=== PATIENT | male | born 1940 | race Caucasian/White ===

== ENCOUNTER 2017-08-15 11:03 | Observation (INO) | payer OTHER ==
--- OUTSIDE RECORDS SUMMARY | 2017-08-15 11:14 | XMS REPORT | Summary of Care ---
:1940 Author Name KAMRYN Beltran, MEGGAN Address Unavailable Unavailable , Care Team Providers Name Role Phone KAMRYN Beltran, MEGGAN Unavailable Unavailable ANABEL Beltran, HARINDER Unavailable Unavailable MITCHELL Beltran, DAV Unavailable Unavailable MARIA TERESA Beltran, MELY Unavailable Unavailable Unavailable Unavailable Unavailable Functional Status Name Dates Details Functional status health issues are not documented Status: Name Dates Details Cognitive status health issues are not documented Status: Problems Name Dates Details Chronic right hip pain (719.45, M25.551) Status: Active Benign prostatic hyperplasia with lower urinary tract symptoms, unspecified morphology Status: Active Other hyperlipidemia (272.4, E78.4) Status: Active Other specified hypothyroidism (244.8, E03.8) Status: Active Gastroesophageal reflux disease without esophagitis (530.81, K21.9) Status: Active Depression, unspecified depression type (311, F32.9) Status: Active Iliotibial band syndrome of right side (728.89, M76.31) Status: Active Hip abductor tendonitis, right (726.5, M76.891) Status: Active Cervical pain (neck) (723.1, M54.2) Status: Active Low back pain (724.2, M54.5) Status: Active 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, 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) Status: Active Lumbar radicular pain (724.4, M54.16) Status: Active Lumbar foraminal stenosis (724.02, M99.83) Status: Active 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, 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) Status: Active Shoulder pain (719.41, M25.519) Status: Active Subacromial impingement of right shoulder (726.19, M75.41) Status: Active Subacromial bursitis (726.19, M75.50) Status: Active 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.0, M75.01) Status: Active Wheezing (786.07, R06.2) Status: Active Class 1 obesity with serious comorbidity and body mass index (BMI) of 30.0 to 30.9 in adult, unspecified obesity type (278.00, E66.9) Status: Active Severe obstructive sleep apnea (327.23, G47.33) Status: Active Asthma in adult (493.90, J45.909) Status: Active Complete tear of right rotator cuff (727.61, M75.121) Status: Active Chronic coughing (786.2, R05) Status: Active Dyspnea (786.09, R06.00) Status: Active Kyphosis (737.10, M40.209) Status: Active Chronic right shoulder pain (719.41, M25.511) Status: Active Advanced COPD (496, J44.9) Status: Active Postoperative infection, initial encounter (998.59, T81.4XXA) Status: Active Medications Name Dates Details Flomax 0.4 MG Oral Capsule Refills: 0 R.N.Active Simvastatin 10 MG Oral Tablet Refills: 0 R.N.Active L-Thyroxine 125 MCG TABS Refills: 0 R.N.Active Cymbalta 30 MG Oral Capsule Delayed Release Particles Refills: 0 R.N.Active NexIUM 10 MG Oral Packet Refills: 0 R.N.Active Multi Complete CAPS Refills: 0 R.N.Active Meloxicam 7.5 MG Oral Tablet TAKE 1 TABLET TWICE DAILY. Quantity: 60 Refills: 6 DAV MEDRANO M.D. Start : 14-Jul-2015 Active Meloxicam 7.5 MG Oral Tablet TAKE 1 TABLET TWICE DAILY. Quantity: 60 Refills: 5 DAV MEDRANO M.D. Start : 26-Aug-2015 Active Vitamin D (Ergocalciferol) 44453 UNIT Oral Capsule TAKE 1 CAPSULE WEEKLY. Quantity: 20 Refills: 0 MELY MOREL M.D. Start : 13-Apr-2016 Active Ventolin HFA 108 (90 Base) MCG/ACT Inhalation Aerosol Solution INHALE 2 PUFFS EVERY 4 HOURS NEEDED Refills: 0 R.N. Start : 26-Dec-2016 Active 8 GM Inhaler ProAir HFA 108 (90 Base) MCG/ACT Inhalation Aerosol Solution INHALE 1-2 PUFFS EVERY 4-6 HOURS NEEDED AND DIRECTED. Quantity: 1 Refills: 3 MEGGAN HARRY M.D. Start : 26-Dec-2016 Active 8.5 GM Inhaler Rasagiline Mesylate 1 MG Oral Tablet Refills: 0 R.N.Active Tamsulosin HCl 0.4 MG CP24 Refills: 0 R.N.Active Synthroid 50 MCG Oral Tablet Refills: 0 R.N.Active Esomeprazole Magnesium 40 MG Oral Capsule Delayed Release Refills: 0 R.N.Active Metoprolol Tartrate 25 MG Oral Tablet Refills: 0 R.N.Active Tylenol 8 Hour 650 MG Oral Tablet Extended Release TAKE 1 TABLET EVERY 4 HOURS Quantity: 60 Refills: 0 HARINDER LITTLE M.D. Start : 08-Jan-2017 Active Hydrocodone-Acetaminophen 5-325 MG Oral Tablet TAKE 1 TABLET PRN Quantity: 30 Refills: 0 HARINDER LITTLE M.D. Start : 24-May-2017 Active Vancomycin HCl - 500 MG Intravenous Solution Reconstituted USE DIRECTED. Refills: 0 R.N. Start : 31-May-2017 Active Trelegy Ellipta 100-62.5-25 MCG/INH Inhalation Aerosol Powder Breath Activated use one puff one time daily and rinse mouth afterwards Quantity: 1 Refills: 3 MEGGAN HARRY M.D. Start : 31-May-2017 Active 60 Inhaler Pack Albuterol Sulfate (2.5 MG/3ML) 0.083% Inhalation Nebulization Solution USE 1 UNIT DOSE IN NEBULIZER EVERY 4 TO 6 HOURS NEEDED. Quantity: 1 Refills: 3 MEGGAN HARRY M.D. Start : 31-May-2017 Active 60 x 3 ML Plas Cont Allergies and Adverse Reactions Name Dates Details No Known Drug Allergies (Allergy) Status: Active Past Medical History Name Dates Details History of asthma (V12.69, Z87.09) Status: Resolved History of Hospital-acquired pneumonia (486, J18.9) Status: Resolved History of thyroid disease (V12.29, Z86.39) Status: Resolved Procedures Procedure Dates Details Physical Therapy Date: 12-Jul-2017 [H] Allergens, Inhalants, Comprehensive Profile Date: 31-May-2017 History of Rotator Cuff Repair Completed History of Capsulotomy Left Foot First MTP Completed History of Hemicolectomy Completed History of Lumbar Vertebral Fusion Completed History of Neuroplasty Left Thumb Completed Immunization Name Dates Details Prevnar 13 Intramuscular Suspension on: 01-Mar-2017 Lot #: [id number] Family History Name Dates Details No pertinent family history Status: Active Name Dates Details Family history of Type 2 diabetes mellitus without complication (250.00, E11.9 ) Status: Active Social History Name Dates Details - Status: Name Dates Details Former smoker Vital Signs Date Test Result Details No Known Vitals to report Results Date Description Value Details [id number] [U] XRAY SPINE LUMBOSACRAL 2 OR 3 VWS [id number] XR SPINE LUMBOSACRAL 2 OR 3 VWS Images acquired, not reported on this accession number. Plan of Care Name Dates Details Planned Observations Planned Goals not documented Planned Encounters Appointment; MEGGAN HARRY M.D. On: 30-Aug-2017 13:00 Interventions Provided Discussion/SummaryWill discuss at appointment. Instructions Name Dates Details Instructions not documented Encounters Appointment; DAV MEDRANO M.D. On: 14-Jul-2015 10:30 Encounter Diagnosis: Problem not documented Appointment; MELY MOREL M.D. On: 28-Oct-2015 9:30 Encounter Diagnosis: Problem not documented Appointment; MELY MOREL M.D. On: 03-Nov-2015 8:20 Encounter Diagnosis: Problem not documented Appointment; MELY MOREL M.D. On: 18-Nov-2015 9:15 Encounter Diagnosis: Problem not documented Appointment; MELY MOREL M.D. On: 30-Dec-2015 10:15 Encounter Diagnosis: Problem not documented Appointment; MELY MOREL M.D. On: 04-Jan-2016 10:45 Encounter Diagnosis: Problem not documented Appointment; MELY MOREL M.D. On: 18-Jan-2016 13:15 Encounter Diagnosis: Problem not documented Appointment; MELY MOREL M.D. On: 15-Feb-2016 11:15 Encounter Diagnosis: Problem not documented Appointment; MELY MOREL M.D. On: 21-Feb-2016 7:30 Encounter Diagnosis: Problem not documented Appointment; MELY MOREL M.D. On: 30-Mar-2016 10:15 Encounter Diagnosis: Problem not documented Appointment; MELY MOREL M.D. On: 13-Apr-2016 11:15 Encounter Diagnosis: Problem not documented Appointment; MELY MOREL M.D. On: 25-May-2016 10:15 Encounter Diagnosis: Problem not documented Appointment; RADHA HYMAN M.D. On: 13-Jun-2016 10:30 Encounter Diagnosis: Problem not documented Appointment; MELY MOREL M.D. On: 17-Aug-2016 10:45 Encounter Diagnosis: Problem not documented Appointment; MELY MOREL M.D. On: 24-Aug-2016 10:45 Encounter Diagnosis: Problem not documented Appointment; MEGGAN HARRY M.D. On: 26-Dec-2016 13:00 Encounter Diagnosis: Problem not documented Appointment; MELY MOREL M.D. On: 04-Jan-2017 13:45 Encounter Diagnosis: Problem not documented Appointment; HARINDER LITTLE M.D. On: 08-Jan-2017 10:30 Encounter Diagnosis: Problem not documented Appointment; HARINDER LITTLE M.D. On: 26-Jan-2017 10:00 Encounter Diagnosis: Problem not documented Appointment; HARINDER LITTLE M.D. On: 05-Feb-2017 8:30 Encounter Diagnosis: Problem not documented Appointment; MELY MOREL M.D. On: 22-Feb-2017 10:45 Encounter Diagnosis: Problem not documented Appointment; MEGGAN HARRY M.D. On: 01-Mar-2017 13:00 Encounter Diagnosis: Problem not documented Appointment; HARINDER LITTLE M.D. On: 05-Mar-2017 10:30 Encounter Diagnosis: Problem not documented Appointment; HARINDER LITTLE M.D. On: 02-Apr-2017 11:00 Encounter Diagnosis: Problem not documented Appointment; HARINDER LITTLE M.D. On: 30-Apr-2017 10:30 Encounter Diagnosis: Problem not documented Appointment; HARINDER LITTLE M.D. On: 01-May-2017 8:30 Encounter Diagnosis: Problem not documented Appointment; HARINDER LITTLE M.D. On: 14-May-2017 11:00 Encounter Diagnosis: Problem not documented Appointment; HARINDER LITTLE M.D. On: 15-May-2017 8:00 Encounter Diagnosis: Problem not documented Appointment; HARINDER LITTLE M.D. On: 24-May-2017 10:15 Encounter Diagnosis: Problem not documented Appointment; MEGGAN HARRY M.D. On: 31-May-2017 13:00 Encounter Diagnosis: Problem not documented Appointment; HARINDER LITTLE M.D. On: 07-Jun-2017 10:30 Encounter Diagnosis: Problem not documented Appointment; HARINDER LITTLE M.D. On: 28-Jun-2017 11:30 Encounter Diagnosis: Problem not documented Appointment; MELY MOREL M.D. On: 12-Jul-2017 14:30 Encounter Diagnosis: Problem not documented
[2017-08-15] MEDS ORDERED: HYDROMORPHONE HCL 2 MG/ML inj IV PRN (12:04)
[2017-08-15] MEDS ORDERED: ONDANSETRON 4 MG (ODT) TAB PO PRN (12:05)
[2017-08-15] MEDS ORDERED: POLYETHYL GLY 3350 17 GM/DOSE PO PRN (12:05)
[2017-08-15] MEDS ORDERED: DIPHENHYDRAMINE 25 MG TAB/CAP PO PRN (12:05)
[2017-08-15] MEDS ORDERED: ACETAMINOPHEN 325 MG TABLET PO PRN (12:05)
[2017-08-15] MEDS ORDERED: LOPERAMIDE HCL 2 MG CAPSULE PO PRN (12:05)
[2017-08-15] MEDS ORDERED: ONDANSETRON 4 MG/2 ML VIAL IV PRN (12:05)
[2017-08-15] MEDS ORDERED: NACHLORIDE 0.45% 1,000 ML IV SCH (13:00)
[2017-08-15] MEDS: metroNIDAZOLE 500 MG TABLET PO SCH ×2 (13:00→17:00)
[2017-08-15 13:39] LABS: Absolute Lymphocytes (CBC) 1.6 K/uL (0.7-4.9); Absolute Neutrophil 13.6 K/uL (1.8-8.0); Basophils % 0.6 % (0-1.3); Eosinophils % 0.1 % (0-4.4); Hematocrit 37.7 % (39.6-49.0); Lymphocytes % 9.6 % (15.3-44.8); MCH 23.7 pg (27.0-35.0); MCV 75.2 fL (80-100); MPV 6.9 fL (7.6-11.3); Monocytes % 6.2 % (3.3-12.3); RBC Red Blood Cell Count 5.02 M/uL (4.33-5.43)
[2017-08-15 13:45] LABS: Protime INR 1.03
[2017-08-15 14:12] LABS: Albumin 3.9 g/dL (3.2-5.5); Bilirubin Direct 0.2 mg/dL (0-0.2); Magnesium 1.9 mg/dL (1.8-2.5); Phosphorus 3.1 mg/dL (2.5-4.3); Potassium 4.5 mEq/L (3.6-5.0); Protein, Total 6.9 g/dL (6.0-8.3)
--- NOTE | 2017-08-15 15:13 | RAD REPORT ---
EXAM DESCRIPTION: RAD - Chest Pa And Lat (2 Views) - 08/15/2017 2:45 pm CLINICAL HISTORY: Abdominal pain COMPARISON: March 2016 TECHNIQUE: PA and lateral views of the chest were obtained. FINDINGS: The lungs are slightly underinflated. There is scarring and atelectasis change present. No acute infiltrate, failure or mass lesions suspected. Heart size is normal and central vasculature is within normal limits. No pleural effusion or pneumothorax seen. No acute bone finding. Since the prior study a right shoulder prosthesis has been placed. Old surgical hardware noted on the left dasia ulder. No aortic abnormality. IMPRESSION: No acute cardiopulmonary process. No suspicious change from prior imaging.
[2017-08-15 15:19] LABS: Thyroid Stimulating Hormone 1.4 uIU/mL (0.34-5.60)
--- NOTE | 2017-08-15 15:40 | EKG ---
Test Date: 2017-08-15 Test Time: 14:21:28 Solution Designer: MILLER MEASUREMENT RESULTS: Intervals: Rate: 89 RI: 134 QRSD: 78 QT: 362 QTc: 440 [place]: P: 44 RI: 134 QRS: -17 T: 17 INTERPRETIVE STATEMENTS: Sinus rhythm with occasional premature ventricular complexes Otherwise normal ECG Compared to ECG 08/15/2016 10:01:49 Ventricular premature complex(es) now present Sinus bradycardia no longer present Sinus arrhythmia no longer present Left-axis deviation no longer present Electronically Signed On 08-15-17 15:39:59 CDT by Gilmer Chao
[2017-08-15] MEDS ORDERED: ENOXAPARIN 40 MG/0.4 ML SQ SCH (17:00)
--- NOTE | 2017-08-15 17:05 | RAD REPORT ---
EXAM DESCRIPTION: CT - Abdomen Pelvis W/Wo Contrast - 08/15/2017 2:56 pm CLINICAL HISTORY: Left-sided abdominal pain, no hematuria reported, history of diverticulitis COMPARISON: None. TECHNIQUE: Biphasic, helical CT imaging of the abdomen and pelvis was performed following 100 ml non -ionic IV contrast. Precontrast imaging performed. All CT scans are performed using dose optimization technique as appropriate and may include automated exposure control or mA/KV adjustment according to patient size. FINDINGS: No suspicious findings in the lung bases. Liver shows a mild fatty infiltration pattern with no suspicious liver parenchymal finding. Spleen an d pancreas also without suspicious finding Gallbladder and biliary tree are also without suspicious f inding. Precontrast imaging shows no abnormal calculus. There is mild dilatation of the proximal left ureter, pelvis and calices on the left. Trace amount of stranding is seen in the perinephric fat. There is a large 5 centimeter cyst complex in the mid and upper pole left kidney that is probably a large parap elvic cyst. This may have a septation or represent clustered abutting cysts. Minimal calcifications s een along the posterior margin. There is slight delay in function of the left kidney relative to the right. No stone within the ureter. There is some soft tissue stranding along the course of the left u reter into the pelvic inlet. No etiology for the mild dilatation of the proximal left collecting system. Blood, inflammatory debri s or small mass would be possible. There is no obstructing calculus. Stranding along the course the l eft ureter could be from a prior of vent and there could be scarring contributing to the diminished f low through the left collecting system. No urinary bladder abnormality seen. Prostate gland and semin al vesicles within normal limits. No gastric dilatation or gastric wall thickening. No dilated small bowel loops. Moderate stool volume seen in the right-side of the colon. Rectosigmoid anastomosis shows no suspicious finding. An acute colon process is not identifiable. No free air, free fluid or inflammatory stranding. No hernia, ma ss or bulky lymphadenopathy. No adrenal abnormality. No suspicious bony findings. IMPRESSION: Mild dilatation of the left pelvis and calices without an obstructing calculus present. Blood, inflammatory debris or a small mass could be present and contribute to the mild obstructive pr ocess. Stranding is seen along the course of the ureter to the pelvic inlet. If the stranding is preexisting this may represent stricture of the ureter as a source for the mild dilatation. Left renal function is delayed. No sadia evidence of pyelonephritis. A 5 centimeter complex cyst is p resent in the central and upper pole left kidney. Mild diffuse fatty infiltration of the liver.
[2017-08-15] MEDS: NACHLORIDE 0.45% 1,000 ML IV SCH (18:00)
[2017-08-15] MEDS: CEFTRIAXONE/SWI 1gm 1 GM/10 ML SYR IV SCH (18:00)
--- NOTE | 2017-08-15 23:18 | CON ---
History Of Present Illness: The patient is 76 years old, presented with left flank pain, also it was of colicky in nature like a kidney stone. He had a CT scan, showed a parapelvic cyst with septations and posterior calcification in the left renal pelvis with some periureteritis on the left proximal ureter. No kidney stone was seen. His white count is slightly elevated at 16,000, however , the UA is pending. He is on antibiotics, Rocephin already. The patient has no previous history of kidney stones. He said the pain was sharp and sometimes dull and nothing gave him any relief. He had no fevers. No previous history of stones. No diabetes. No dysuria. Past Medical History: Significant for back pain, Parkinson's disease, hypertension, dyslipidemia, fatigue, depression, infection of shoulder with chronic Keflex, COPD, obstructive sleep apnea. Medications: Duloxetine, _, gabapentin, Incruse, levothyroxine, metoprolol, _, simvastatin, tamsulosin, trazodone, Trelegy Ellipta, triamcinolone, Viagra. Review of Systems: A 10-point review of systems is essentially noncontributory. Physical Examination: General: No fever. No chills. HEENT: Eyes: No visual abnormalities. No nasal discharge. No sore throat. Atraumatic, normocephalic. Respiratory: No shortness of breath. No wheezing. Lungs clear to auscultation bilaterally. Cardiovascular: No chest pain. S1, S2. GI: No nausea. No vomiting. Abdomen is soft, nontender. No severe flank tenderness. : No dysuria. No hematuria. Some BPH as mentioned above. Both testicles were descended. Normal phallus. No lesions. Musculoskeletal: No joint pain or swelling. Neurologic: No weakness or numbness. Skin: No rash. Vital Signs: The patient's vital signs, temperature 99.7, pulse 85, respirations 20, BP 184/95, sats 93%. LEA: Deferred. Extremities: Normal range of motion. Laboratory Data: White count 16.3, H and H 11.9 and 37.7, platelets 247. Coags ; PT 12.2, PTT 25. INR 1.0. Chemistry; sodium 134, potassium 4.5, chloride 99 , carbon dioxide 27, BUN 17, creatinine 0.97, GFR is 76, glucose 127, calcium 8.7. Lipase normal at 19, amylase normal. CT scan as mentioned above. A/P: CT shows slight periureteritis on the left. Renal pelvis is possible hydronephrotic minmimally (parapelvic cysts) he may have passed a stone and may have an infection, could be possible blockage in that system. He would need some type of retrograde studies or a CT scan with delayed views to look at that upper ureters, can be done at a later time. For now, we will try him on empiric therapy with antibiotics and pain medication. His UA is still pending. VLADISLAV/PRATIBHA Voice ID: [id number] Report ID: [id number] SHERRI
[2017-08-15 23:48] LABS: Urine Appearance CLEAR; Urine Bilirubin NEGATIVE (NEG); Urine Blood TRACE (NEG); Urine Color YELLOW; Urine Glucose NEGATIVE (NEG); Urine Protein NEGATIVE (NEG); Urine Specific Gravity <=1.005 (1.005-1.030); Urine Urobilinogen 0.2 mg/dL (0.2-1.0)
[2017-08-15 23:58] LABS: Urine Microscopic Reflex ORDER UMIC
[2017-08-16 00:09] LABS: Urine Amorphous Sediment TRACE /HPF (NONE SEEN); Urine Bacteria <20 /HPF (NONE SEEN); Urine Culture Reflex Order NOT NEEDED; Urine RBC <5 /HPF (NONE SEEN)
[2017-08-16 05:09] LABS: Absolute Lymphocytes (CBC) 1.4 K/uL (0.7-4.9); Absolute Monocytes 1.1 K/uL (0.1-1.3); Absolute Neutrophil 10.7 K/uL (1.8-8.0); Basophils % 0.4 % (0-1.3); Eosinophils % 0.4 % (0-4.4); Hematocrit 33.9 % (39.6-49.0); Lymphocytes % 10.4 % (15.3-44.8); MCH 24.2 pg (27.0-35.0); MPV 6.9 fL (7.6-11.3); Monocytes % 8.4 % (3.3-12.3); RBC Red Blood Cell Count 4.58 M/uL (4.33-5.43)
[2017-08-16] MEDS: NACHLORIDE 0.45% 1,000 ML IV SCH ×2 (05:18→09:23)
[2017-08-16 05:21] LABS: Potassium 4.6 mEq/L (3.6-5.0)
[2017-08-16] MEDS: CEFTRIAXONE/SWI 1gm 1 GM/10 ML SYR IV SCH (09:18)
--- NOTE | 2017-08-16 18:10 | P.DS ---
Admission Date: 08/15/17 Discharge Date: 08/16/17 Disposition: ROUTINE DISCHARGE Discharge Condition: FAIR Brief History of Present Illness: MR KAUR IS ALL BETTER NOW , WBC IS DOWN TO 13K. I DISCHARGED HIM ON ORAL CIPRO AND FU SONOGRAM WILL B DONE ON L HYDRONEPHROSIS. HE MOSTLY PASSED A STONE. Vital Signs/Physical Exam: Temp Pulse Resp BP Pulse Ox 97.7 F 58 17 136/84 96 08/16/17 12:00 08/16/17 12:00 08/16/17 12:00 08/16/17 12:00 08/16/17 12:00 Laboratory Data at Discharge: WBC 13.3 K/uL (4.3-10.9) H D 08/16/17 04:34 Hgb 11.1 g/dL (13.6-17.9) L 08/16/17 04:34 Hct 33.9 % (39.6-49.0) L 08/16/17 04:34 Plt Count 243 K/uL (152-406) 08/16/17 04:34 PT 12.2 SECONDS (9.5-12.5) 08/15/17 13:25 INR 1.03 08/15/17 13:25 APTT 25.2 SECONDS (24.3-36.9) 08/15/17 13:25 Sodium 136 mEq/L (135-145) 08/16/17 04:34 Potassium 4.6 mEq/L (3.6-5.0) 08/16/17 04:34 BUN 15 mg/dL (6-20) 08/16/17 04:34 Creatinine 1.03 mg/dL (0.61-1.24) 08/16/17 04:34 Glucose 137 mg/dL (65-120) H 08/16/17 04:34 Phosphorus 3.1 mg/dL (2.5-4.3) 08/15/17 13:25 Magnesium 2.0 mg/dL (1.8-2.5) 08/16/17 04:34 Total Bilirubin 1.0 mg/dL (0.3-1.2) 08/15/17 13:25 AST 24 IU/L (10-42) 08/15/17 13:25 ALT 17 IU/L (10-60) 08/15/17 13:25 Alkaline Phosphatase 96 IU/L (42-121) 08/15/17 13:25 Amylase 33 U/L (28-100) 08/15/17 13:25 Lipase 19 U/L (22-51) L 08/15/17 13:25 Home Medications: Duloxetine [Cymbalta Dalayed Release Pellets] 40 mg PO DAILY 08/15/16 Esomeprazole Mag Trihydrate [Nexium] 40 mg PO DAILY 08/15/16 Simvastatin [Zocor] 40 mg PO BEDTIME 08/15/16 Tamsulosin [Flomax] 0.4 mg PO BEDTIME 08/15/16 Metronidazole [Flagyl*] 500 mg PO DAILY 08/15/17 Ciprofloxacin HCl [Cipro 500 MG Tablet] 500 mg PO BID #20 tab 08/16/17 New Medications: Ciprofloxacin HCl [Cipro 500 MG Tablet] 500 mg PO BID #20 tab Followup: Jessica Price MD [ACTIVE - CAN ADMIT] - 1 Week (Call for appointment) Javier Cordon MD [Primary Care Provider] - 1-2 Weeks (Call for appointment)
== END 2017-08-16 14:01 | disposition home or self-care (01) ==
LOC: 2ND 11:12
PROVIDERS: ADMIT Internal Medicine; ATTEND Internal Medicine
DX: K52.9 Noninfective gastroenteritis and colitis, unspecified (principal); K57.92 Diverticulitis of intestine, part unspecified, without perforation or abscess without bleeding; G20 Parkinson's disease; I10 Essential (primary) hypertension; E78.5 Hyperlipidemia, unspecified; F32.9 Major depressive disorder, single episode, unspecified; J44.9 Chronic obstructive pulmonary disease, unspecified; G47.33 Obstructive sleep apnea (adult) (pediatric); N13.30 Unspecified hydronephrosis
CPT/HCPCS: 36415; 71046; 74178; 80048 ×2; 80076; 82150; 82306; 82607; 83690; 83735 ×2; 84100; 84443; 85025 ×2; 85610; 85730; 87086; 87088; 93005; G0378; G0379; J0696 ×2; J1170; Q9967; 81003; 81015; J1650

== ENCOUNTER 2017-09-10 06:40 | Day surgery (SDC) | payer OTHER ==
--- OUTSIDE RECORDS SUMMARY | 2017-09-10 06:42 | XMS REPORT | Summary of Care ---
:1940 Author Name KAMRYN Beltran, MEGGAN Address Unavailable Unavailable , Care Team Providers Name Role Phone KAMRYN Beltran, MEGGAN Unavailable Unavailable AANBEL Beltran, HARINDER Unavailable Unavailable MITCHELL Beltran, DAV [...] infection, initial encounter (998.59, T81.4XXA) Status: Active Cough (786.2, R05) Status: Active Medications Name Dates Details Flomax 0.4 MG Oral Capsule Refills: 0 Active Simvastatin 10 MG Oral Tablet Refills: 0 Active L-Thyroxine 125 MCG TABS Refills: 0 Active Cymbalta 30 MG Oral Capsule Delayed Release Particles Refills: 0 Active Multi Complete CAPS Refills: 0 Active Meloxicam 7.5 MG Oral Tablet TAKE 1 TABLET TWICE DAILY. Quantity: 60 Refills: 6 DAV MEDRANO M.D. Start : 14-Jul-2015 Active Meloxicam 7.5 MG Oral Tablet TAKE 1 TABLET TWICE DAILY. Quantity: 60 Refills: 5 DAV MEDRANO M.D. Start : 26-Aug-2015 Active Vitamin D (Ergocalciferol) 87836 UNIT Oral Capsule TAKE 1 CAPSULE WEEKLY. Quantity: 20 Refills: 0 MELY MOREL M.D. Start : 13-Apr-2016 Active Ventolin HFA 108 (90 Base) MCG/ACT Inhalation Aerosol Solution INHALE 2 PUFFS EVERY 4 HOURS NEEDED Refills: 0 Start : 26-Dec-2016 Active 8 GM Inhaler ProAir HFA 108 (90 Base) MCG/ACT Inhalation Aerosol Solution INHALE 1-2 PUFFS EVERY 4-6 HOURS NEEDED AND DIRECTED. Quantity: 1 Refills: 3 MEGGAN HARRY M.D. Start : 26-Dec-2016 Active 8.5 GM Inhaler Rasagiline Mesylate 1 MG Oral Tablet Refills: 0 Active Tamsulosin HCl 0.4 MG CP24 Refills: 0 Active Synthroid 50 MCG Oral Tablet Refills: 0 Active Esomeprazole Magnesium 40 MG Oral Capsule Delayed Release Refills: 0 Active Metoprolol Tartrate 25 MG Oral Tablet Refills: 0 Active Tylenol 8 Hour 650 MG Oral Tablet Extended Release TAKE 1 TABLET EVERY 4 HOURS Quantity: 60 Refills: 0 HARINDER LITTLE M.D. Start : 08-Jan-2017 Active Hydrocodone-Acetaminophen 5-325 MG Oral Tablet TAKE 1 TABLET PRN Quantity: 30 Refills: 0 HARINDER LITTLE M.D. Start : 24-May-2017 Active Vancomycin HCl - 500 MG Intravenous Solution Reconstituted USE DIRECTED. Refills: 0 Start : 31-May-2017 Active Trelegy Ellipta 100-62.5-25 [...] Active 60 x 3 ML Plas Cont PredniSONE 20 MG Oral Tablet 1 tablet PO daily for 5 days Quantity: 5 Refills: 0 MEGGAN HARRY M.D. Start : 30-Aug-2017 Active Albuterol Sulfate 1.25 MG/3ML Inhalation Nebulization Solution 1 unit dose by nebulizer in clinic Refills: 0 MEGGAN HARRY M.D. Start : 30-Aug-2017 Admin Requested Ipratropium [place] 0.02 % Inhalation Solution one dose at clinic now Refills: 0 MEGGAN HARRY M.D. Start : 30-Aug-2017 Admin Requested Ipratropium-Albuterol 0.5-2.5 (3) MG/3ML Inhalation Solution 1 vial in nebulizer every 4-6 hours as needed for chest tightness, wheezing, shortness of breath, orprior to exertion, max use 6xdaily Quantity: 1 Refills: 6 MEGGAN HARRY M.D. Start : 30-Aug-2017 Active 30 x 3 ML Plas Cont Esomeprazole Magnesium 20 MG Oral Capsule Delayed Release take one capsule 30 minutes before first meal of the day and one capsule 30 minutes before evening meal Quantity: 1 Refills: 3 MEGGAN HARRY M.D. Start : 30-Aug-2017 Active 90 Capsule Bottle Ipratropium [place] 0.02 % Inhalation Solution one dose at clinic now Refills: 0 MEGGAN HARRY M.D. Start : 30-Aug-2017 Admin Requested Allergies and Adverse Reactions Name Dates Details No Known Drug Allergies (Allergy) Status: Active Past Medical History Name Dates Details History of asthma (V12.69, Z87.09) Status: Resolved History of Hospital-acquired pneumonia (486, J18.9) Status: Resolved History of thyroid disease (V12.29, Z86.39) Status: Resolved Procedures Procedure Dates Details Physical Therapy Date: 12-Jul-2017 History of Rotator Cuff Repair Completed History of Capsulotomy Left Foot First MTP Completed History of Hemicolectomy Completed History of Lumbar Vertebral Fusion Completed History of Neuroplasty Left Thumb Completed Immunization Name Dates Details Prevnar 13 Intramuscular Suspension on: 01-Mar-2017 Lot #: [id number] Family History Name Dates Details No pertinent family history (V49.89, Z78.9) Status: Active Name Dates Details Family history of Type 2 diabetes mellitus without complication (250.00, E11.9 ) Status: Active Social History Name Dates Details - Status: Name Dates Details Former smoker Vital Signs Date Test Result Details [id number] BP Systolic 141 mm[Hg] Status: Comments: Location: LUE; Position: Sitting BP Diastolic 95 mm[Hg] Status: Comments: Location: LUE; Position: Sitting Height 70 in Status: Weight 210 lb Status: Body Mass Index Calculated 30.13 kg/m2 Status: Body Surface Area Calculated 2.13 m2 Status: Temperature 98.5 f Status: Comments: Method: Tympanic Heart Rate 103 /min Status: Comments: Location: L Brachial Artery; Quality: Irregular Respiration Rate 16 /min Status: Comments: Quality: Normal O2 SAT 96 % Status: Comments: Source: RA Results Date Description Value Details Results not documented Plan of Care Name Dates Details Planned Observations Planned Goals not documented Planned Encounters Appointment; MEGGAN HARRY M.D. On: 06-Dec-2017 13:00 Planned Medications Albuterol Sulfate 1.25 MG/3ML Inhalation Nebulization Solution Ordered: Held Ipratropium [place] 0.02 % Inhalation Solution Ordered: 30-Aug-2017 Held Ipratropium [place] 0.02 % Inhalation Solution Ordered: 30-Aug-2017 Held Interventions Provided Medication ChangesEsomeprazole Magnesium 20 MG Oral Capsule Delayed Release - StartIpratropium-Albuterol 0.5-2.5 (3) MG/3ML Inhalation Solution - StartPredniSONE 20 MG Oral Tablet - StartPlanPlan I spent >50% of 40 minute visit counseling patient on treatment plan, above. Instructions Name Dates Details Instructions not documented Encounters Appointment; MELY MOREL M.D. On: 28-Oct-2015 9:30 [...] Encounter Diagnosis: Problem not documented Appointment; MELY MORLE M.D. On: 13-Apr-2016 11:15 Encounter Diagnosis: Problem [...] 12-Jul-2017 14:30 Encounter Diagnosis: Problem not documented Appointment; MEGGAN HARRY M.D. On: 30-Aug-2017 13:00 Encounter Diagnosis: Problem not documented
[2017-09-10] MEDS ORDERED: NA CHLORIDE 0.9% 500 ML ONE (06:47)
[2017-09-10] MEDS ORDERED: BUPIVACAINE 0.25% PF 10 ML VIAL ONE (07:07)
[2017-09-10] MEDS ORDERED: LIDOCAINE 2% MPF 5 ML VIAL ONE (07:07)
[2017-09-10] MEDS ORDERED: TETRACAINE HCL 0.5% 2ML OPTH ONE (07:07)
[2017-09-10] MEDS ORDERED: PHENYLEPHRINE 10% OPTH 5ML ONE (07:07)
[2017-09-10] MEDS ORDERED: CYCLOPENTOLATE 1% OPTH 2 ML ONE (07:07)
[2017-09-10] MEDS ORDERED: CYCLOPENTOLATE 1% OPTH 2 ML OPTH ONE ×2 (07:14→07:19)
[2017-09-10] MEDS ORDERED: PHENYLEPHRINE 10% OPTH 5ML OPTH ONE ×2 (07:14→07:19)
[2017-09-10] MEDS ORDERED: NS 0.9% VIAL 10 ML ONE (07:51)
[2017-09-10] MEDS ORDERED: BALANCED SALT IRRIG PLAIN 500 ML BTL IRR ONE (07:52)
[2017-09-10] MEDS ORDERED: DUOVISC 1 KIT OPTH ONE (07:53)
[2017-09-10] MEDS ORDERED: MOXIFLOXACIN HCL 10 DROPS/ML **OR USE OPTH ONE (07:54)
[2017-09-10] MEDS ORDERED: LIDOCAINE 1% MPF 5 ML VIAL ONE (08:12)
[2017-09-10] MEDS ORDERED: PROPOFOL 200 MG/20 ML VIAL IV ONE (08:12)
[2017-09-10] MEDS: EPINEPHRINE/PF 1 MG/ML AMP ONE ×2 (08:29→08:30)
--- NOTE | 2017-09-10 09:51 | P.BOP ---
Preoperative diagnosis: Nuclear sclerotic and cortical cataract and regular astigmatism OD Postoperative diagnosis: Same Primary procedure: Phacoemulsification with Toric IOL OD Estimated blood loss: none Anesthesia: Local (Subtenon's infusion with anesthesia for cataract surgery) Complications: None Implants: SN6AT4 +16.5 Transferred to: Other (Day surgery) Condition: Good
--- NOTE | 2017-09-10 21:02 | OP ---
Date of Procedure: 09/10/2017 Surgeon: Christina Hendrix MD Anesthesiologist: López Monge CRNA. Preoperative Diagnosis: Nuclear sclerotic cataract and cortical cataract, OD (right eye) and regular astigmatism OD (right eye). Operation Performed: Phacoemulsification with intraocular lens implant, OD (right eye). Anesthesia: Per cataract surgery. Complications: None. Description Of Procedure: In day surgery, the patient was prepped with Betadine and draped. A conju nctival incision was made in the inferior nasal quadrant with Megan scissors. A sub-Tenon block c onsisting of a 1:1 mixture of 2% Xylocaine and 0.25% bupivacaine was placed through the conjunctival incision with a blunt cannula. A [place] balloon was placed over the eye and the patient was transferr ed to the operating room. In the operating room the patient was prepped and draped in the usual sterile fashion for ophthalmic surgery. A lid speculum was placed in the right eye. Two paracentesis sites were made superiorly an d inferiorly in the limbal cornea. Viscoat was placed in the anterior chamber and a crescent blade w as used to make a corneal groove and tunnel, and a keratome was used to enter the anterior chamber. Provisc was placed in the anterior chamber and a 360 degree capsulotomy was performed with a cystitom e. The lens was hydrodissected with BSS and rotated freely. The lens was removed with a stop and ch op technique. A 6.64 phaco CDE was used to remove the lens. Residual cortex was removed with the irr igation and aspiration. Provisc was placed in the capsular bag. A SN6AT4 +16.5 at 178 degree lens w as placed in the capsular bag without complications. Irrigation and aspiration were used to remove r esidual viscoelastic. The paracentesis sites were hydrated with BSS. The wound and paracentesis sit es were inspected and found to be watertight. Vigamox 0.07 cc was placed intracamerally at the end o f the procedure. The eye was irrigated with balanced salt solution. The eye was patched with a soft cotton patch and Richards metal shield. The patient was returned to day surgery in good condition. Comments: A 1:5000 epinephrine was placed in the anterior chamber prior to Viscoat. Discharge Instructions: Mr. Johansen is discharged to home in good condition and is to follow up with Dr. Hendrix in the morning. DEE/PRATIBHA Voice ID: [id number] Report ID: [id number]
== END 2017-09-10 09:16 | disposition home or self-care (01) ==
LOC: OR 06:40
PROVIDERS: ATTEND Ophthalmology Retina Specialist
PROC: 08RJ3JZ Replacement of Right Lens with Synthetic Substitute, Percutaneous Approach (ICD-10-PCS; principal; 2017-09-10 08:30)
DX: H25.11 Age-related nuclear cataract, right eye (principal); H25.011 Cortical age-related cataract, right eye; H52.221 Regular astigmatism, right eye; I10 Essential (primary) hypertension; J44.9 Chronic obstructive pulmonary disease, unspecified; E78.00 Pure hypercholesterolemia, unspecified; E07.9 Disorder of thyroid, unspecified; K21.9 Gastro-esophageal reflux disease without esophagitis; Z87.891 Personal history of nicotine dependence; Z83.511 Family history of glaucoma
CPT/HCPCS: 66984; J0171; V2787

== ENCOUNTER 2017-10-23 15:41 | Emergency (ER) | payer OTHER ==
--- OUTSIDE RECORDS SUMMARY | 2017-10-23 15:43 | XMS REPORT | Summary of Care ---
:1940 Author Name Mirlande Chandler LVN Address Unavailable Unavailable , Care Team Providers Name Role Phone KAMRYN Beltran, MEGGAN Unavailable Unavailable ANABEL Beltran, HARINDER Unavailable Unavailable MITCHELL Beltran, DAV Unavailable Unavailable MARIA TERESA Beltran, MELY Unavailable Unavailable ORIN VASQUEZ, FABIAN Anderson Unavailable Unavailable Unavailable Unavailable Unavailable Functional Status [...] unspecified obesity type (278.00, E66.9) Status: Active Complete tear of right rotator cuff (727.61, M75.121) Status: Active Chronic coughing (786.2, R05) Status: Active Dyspnea (786.09, R06.00) Status: Active Kyphosis (737.10, M40.209) Status: Active Chronic right shoulder pain (719.41, M25.511) Status: Active Postoperative infection, initial encounter (998.59, T81.4XXA) Status: Active Cough (786.2, R05) Status: Active Asthma in adult (493.90, J45.909) Status: Active Advanced COPD (496, J44.9) Status: Active Severe obstructive sleep apnea (327.23, G47.33) Status: Active 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 [...] HARRY M.D. Start : 31-May-2017 Active 60 Each Pack Albuterol Sulfate (2.5 MG/3ML) 0.083% Inhalation [...] M.D. Start : 30-Aug-2017 Admin Requested Ipratropium [place] 0.02 % Inhalation Solution one dose at clinic now Refills: 0 MEGGAN HARRY M.D. Start : 30-Aug-2017 Admin Requested Ipratropium-Albuterol 0.5-2.5 (3) MG/3ML Inhalation Solution 1 vial in nebulizer every 4-6 hours as needed for chest tightness, wheezing, shortness of breath, orprior to exertion, max use 6xdaily Quantity: 1 Refills: 6 HARRY M.D., MEGGAN Start : 30-Aug-2017 Active 30 x 3 ML Plas Cont Esomeprazole Magnesium 20 MG Oral Capsule Delayed Release take one capsule 30 minutes before first meal of the day and one capsule 30 minutes before evening meal Quantity: 1 Refills: 3 KAMRYN Rogel.Manjula., MEGGAN Start : 30-Aug-2017 Active 90 Capsule Bottle Ipratropium [place] 0.02 % Inhalation Solution one dose at clinic now Refills: 0 HARRY M.DMable, MEGGAN Start : 30-Aug-2017 Admin Requested PredniSONE 20 MG Oral Tablet TAKE 1 TABLET TWICE DAILY. Quantity: 60 Refills: 0 HARRY Juan F.D., MEGGAN Start : 15-Oct-2017 Active Codeine Sulfate 15 MG Oral Tablet TAKE 1 TABLET Twice daily PRN As Directed for worst coughing spells, after nebulizer Quantity: 30 Refills: 0 KAMRYN M.Pasha, MEGGAN Start : 15-Oct-2017 Active Allergies and Adverse Reactions Name Dates Details No Known Drug Allergies (Allergy) Status: Active Past Medical History Name Dates Details History of asthma (V12.69, Z87.09) Status: Resolved History of Hospital-acquired pneumonia (486, J18.9) Status: Resolved History of thyroid disease (V12.29, Z86.39) Status: Resolved Procedures Procedure Dates Details History of Rotator Cuff Repair Completed History of Capsulotomy Left Foot First MTP Completed History of Hemicolectomy Completed History of Lumbar Vertebral Fusion Completed History of Neuroplasty Left Thumb Completed Immunization Name Dates Details Prevnar 13 Intramuscular Suspension on: 01-Mar-2017 Lot #: [id number] Family History Name Dates Details No pertinent family history (V49.89, Z78.9) Status: Active Name Dates Details Family history of Type 2 diabetes mellitus without complication (250.00, E11.9 ) Status: Active Social History Name Dates Details - Status: Name Dates Details Former smoker Vital Signs Date Test Result Details [id number]-Fpr-[id number]:07 BP Systolic 168 mm[Hg] Status: Comments: Location: LUE; Position: Sitting BP Diastolic 94 mm[Hg] Status: Comments: Location: LUE; Position: Sitting Height 70 in Status: Weight 213 lb Status: Body Mass Index Calculated 30.56 kg/m2 Status: Body Surface Area Calculated 2.14 m2 Status: Temperature 98.3 f Status: Comments: Method: Tympanic Heart Rate 110 /min Status: Comments: Location: L Brachial Artery; Quality: Normal Respiration Rate 16 /min Status: Comments: Quality: Normal O2 SAT 96 % Status: Comments: Source: 25-[id number]:08 BP Systolic 136 mm[Hg] Status: Comments: Location: LUE; Position: Sitting BP Diastolic 83 mm[Hg] Status: Comments: Location: LUE; Position: Sitting Weight 210.5 lb Status: Body Mass Index Calculated 30.2 kg/m2 Status: Body Surface Area Calculated 2.13 m2 Status: Temperature 97.9 f Status: Comments: Method: Tympanic Heart Rate 109 /min Status: Comments: Location: L Brachial Artery; Respiration Rate 12 /min Status: Comments: Quality: Normal O2 SAT 96 % Status: Comments: Source: Results Date Description Value Details Results not documented Plan of Care Name Dates Details Planned Observations Planned Goals not documented Interventions Provided Medications/Immunizations AdministeredIpratropium-Albuterol 0.5-2.5 (3) MG/3ML Inhalation Solution Instructions Name Dates Details Instructions not documented [...] 30-Aug-2017 13:00 Encounter Diagnosis: Problem not documented Appointment; MEGGAN HARRY M.D. On: 15-Oct-2017 13:00 Encounter Diagnosis: Problem not documented Appointment; MEGGAN HARRY M.D. On: 23-Oct-2017 13:00 Encounter Diagnosis: Problem not documented
[2017-10-23] MEDS ORDERED: METHYLPREDNISOLONE 125 MG INJ ONE (16:26)
[2017-10-23] MEDS ORDERED: ALBUTEROL 2.5 MG/3 ML NEB SOL ONE (16:26)
[2017-10-23] MEDS ORDERED: IPRATROPIUM BROM 0.5MG/2.5ML ONE (16:27)
--- NOTE | 2017-10-23 16:30 | RAD REPORT ---
EXAM DESCRIPTION: RAD - Chest Single View - 10/23/2017 4:22 pm CLINICAL HISTORY: COUGH Chest pain. COMPARISON: Abdomen 1 View (KUB) dated 08/28/2017; Chest Pa And Lat (2 Views) dated 08/15/2017; Chest P a And Lat (2 Views) dated 04/03/2016; CHEST PA AND LAT 2 VIEW dated 05/12/2015 FINDINGS: Portable technique limits examination quality. Linear subsegmental atelectasis is seen in left lung base. The lungs are otherwise clear. The heart i s normal in size. No displaced fractures.Postsurgical changes are present in the left glenoid. Right total shoulder arthroplasty seen. IMPRESSION: Linear subsegmental atelectasis in the left lung base.
[2017-10-23 16:55] LABS: Absolute Lymphocytes (CBC) 1.3 K/uL (0.7-4.9); Absolute Monocytes 1.1 K/uL (0.1-1.3); Absolute Neutrophil 16.9 K/uL (1.8-8.0); Basophils % 0.2 % (0-1.3); Hematocrit 39.2 % (39.6-49.0); Lymphocytes % 6.6 % (15.3-44.8); MCH 24.7 pg (27.0-35.0); MCV 77.4 fL (80-100); MPV 7.1 fL (7.6-11.3); Monocytes % 5.6 % (3.3-12.3); RBC Red Blood Cell Count 5.06 M/uL (4.33-5.43)
[2017-10-23 16:56] LABS: Protime INR 0.92
[2017-10-23 17:16] LABS: Blood Morphology Comment NOT SEEN (NOT SEEN); Platelet Estimate ADEQ
[2017-10-23 17:18] LABS: ALT/SGPT 22 U/L (12-78); AST/SGOT 12 U/L (15-37); Albumin 3.4 g/dL (3.4-5.0); Alkaline Phosphatase 104 U/L (45-117); BUN Blood Urea Nitrogen 31 mg/dL (7-18); Bicarbonate 26 mmol/L (21-32); Bilirubin Direct < 0.1 mg/dL (0-0.2); Bilirubin Total 0.3 mg/dL (0.2-1.0); Glucose Level 395 mg/dL (74-106); Magnesium 2.4 mg/dL (1.8-2.4); NT PRO-BNP 668 pg/mL (<450); Potassium 4.1 mmol/L (3.5-5.1); Protein, Total 6.6 g/dL (6.4-8.2); Sodium Level 136 mmol/L (136-145)
[2017-10-23] MEDS ORDERED: INSULIN -REGULAR HUMAN 50 UNIT/0.5 ML ML ONE ×2 (18:32→19:59)
[2017-10-23] MEDS ORDERED: NA CHLORIDE 0.9% 1,000 ML ONE (18:32)
[2017-10-23 19:10] LABS: Urine Blood NEGATIVE (NEG); Urine Glucose 3+ (NEG); Urine Protein NEGATIVE (NEG); Urine Specific Gravity 1.025 (1.005-1.030); Urine pH 5.5 (5.0-7.0)
--- NOTE | 2017-10-23 19:51 | EKG ---
Test Date: 2017-10-23 Test Time: 16:23:59 Truck Packer: MILLER MEASUREMENT RESULTS: Intervals: Rate: 100 CT: 148 QRSD: 86 QT: 346 QTc: 446 [place]: P: 58 CT: 148 QRS: -32 T: 34 INTERPRETIVE STATEMENTS: Sinus rhythm with premature atrial complexes with aberrant conduction Left axis deviation Abnormal ECG Compared to ECG 08/15/2017 14:21:28 Atrial premature complex(es) now present Aberrant conduction of supraventricular beat(s) now present Left-axis deviation now present Ventricular premature complex(es) no longer present Electronically Signed On 10-23-17 19:50:25 CDT by Gilmer Chao
--- NOTE | 2017-10-23 20:15 | ER ---
Nurse's Notes [facility] Name: Rajesh Johansen Age: 77 yrs Sex: Male : 1940 Arrival Date: 10/23/2017 Time: 15:43 Bed 16 Private MD: Javier Cordon V Diagnosis: Chronic obstructive pulmonary disease with (acute) exacerbation;Hyperglycemia, unspecified Presentation: 10/23 15:51 Presenting complaint: Patient states: Sent here by senior java j2ee developer for labs and xrays. aj Patient has had cough for 2 months. Transition of care: patient was not received from another setting of care. Onset of symptoms was July 2017. Risk Assessment: Do you want to hurt yourself or someone else? Patient reports no desire to harm self or others. Initial Sepsis Screen: Does the patient meet any 2 criteria? No. Patient's initial sepsis screen is negative. Does the patient have a suspected source of infection? No. Patient's initial sepsis screen is negative. Care prior to arrival: None. 15:51 Method Of Arrival: Ambulatory 15:51 Acuity: SOHAM 3 aj Triage Assessment: 15:55 General: Appears in no apparent distress. comfortable, Behavior is calm, cooperative, aj appropriate for age. Pain: Denies pain. Neuro: Level of Consciousness is awake, alert, obeys commands, Oriented to person, place, time, situation, Appropriate for age. Respiratory: Reports cough that is hacking, persistent Airway is patent Respiratory effort is even, unlabored, Respiratory pattern is regular, symmetrical. Derm: Skin is intact, is healthy with good turgor, Skin is pink, warm \T\ dry. normal. Historical: - Allergies: 15:55 No Known Allergies; aj - PMHx: 15:55 COPD; Hypertension; Hypothyroidism; Diverticulitis; aj - PSHx: 15:55 back; shoulder; hand; colon resection; aj - Immunization history:: Adult Immunizations up to date. - Social history:: Smoking status: Patient/guardian denies using tobacco. - Ebola Screening: : Patient negative for fever greater than or equal to 101.5 degrees Fahrenheit, and additional compatible Ebola Virus Disease symptoms Patient denies exposure to infectious person Patient denies travel to an Ebola-affected area in the 21 days before illness onset No symptoms or risks identified at this time. Screenin:58 Abuse screen: Denies threats or abuse. Nutritional screening: No deficits noted. jb4 Tuberculosis screening: No symptoms or risk factors identified. Fall Risk Ambulatory Aid- Crutches/Cane/Walker (15 pts). Gait- Impaired (20 pts.). Total [place] Fall Scale indicates Low Risk Score (25-44 pts). Fall prevention measures have been instituted. Side Rails Up X 2 Placed close to Nursing Station Frequent Obs/Assesments occuring Family Present and informed to notify staff if they need to leave bedside. Assessment: 15:58 General: Appears in no apparent distress. uncomfortable, Behavior is calm, cooperative, jb4 appropriate for age. Pain: Denies pain. Neuro: Level of Consciousness is awake, alert, obeys commands, Oriented to person, place, time, situation. Cardiovascular: Heart tones S1 S2 present Capillary refill < 3 seconds in bilateral fingers toes Patient's skin is warm and dry. Respiratory: Reports shortness of breath cough that is non-productive, dry, for 2 months. Airway is patent Respiratory effort is even, labored, Respiratory pattern is regular, symmetrical, Breath sounds are clear in right upper lobe, left upper lobe, right middle lobe, left posterior upper lobe, right posterior upper lobe and right posterior middle lobe Breath sounds are diminished in left lower lobe, right lower lobe, left posterior lower lobe and right posterior lower lobe Onset: The symptoms/episode began/occurred 2 months.. GI: No signs and/or symptoms were reported involving the gastrointestinal system. : No signs and/or symptoms were reported regarding the genitourinary system. EENT: No signs and/or symptoms were reported regarding the EENT system. Derm: Skin is intact, Skin is pink, warm \T\ dry. Musculoskeletal: No signs and/or symptoms reported regarding the musculoskeletal system. 16:50 Reassessment: Patient and/or family updated on plan of care and expected duration. Pain jb4 level reassessed. Pt is resting in bed with family at the bedside. breathing treatment is currently going. 18:30 Reassessment: Patient and/or family updated on plan of care and expected duration. Pain hj level reassessed. Patient is alert, oriented x 3, equal unlabored respirations, skin warm/dry/pink. for D/C;. 19:30 General: Appears in no apparent distress. comfortable, Behavior is calm, cooperative, ao appropriate for age. Pain: Denies pain. Neuro: Level of Consciousness is awake, alert, obeys commands, Oriented to person, place, time, situation, Moves all extremities. Full function Gait is steady, Speech is normal, Facial symmetry appears normal. Cardiovascular: Heart tones S1 S2 present Capillary refill < 3 seconds in bilateral fingers toes Patient's skin is warm and dry. Respiratory: Airway is patent Respiratory effort is even, unlabored, Respiratory pattern is regular, symmetrical, Breath sounds are clear bilaterally. Breath sounds are diminished bilaterally. GI: Abdomen is obese. : No signs and/or symptoms were reported regarding the genitourinary system. EENT: No signs and/or symptoms were reported regarding the EENT system. Derm: Skin is intact, Skin is pink, warm \T\ dry. normal, Skin temperature is warm. Musculoskeletal: Circulation, motion, and sensation intact. Range of motion: intact in all extremities. 20:12 Reassessment: DC instructions given to patient. Patient agree with the POC and to ao follow up with PCP. Vital Signs: 15:55 BP 171 / 103; Pulse 94; Resp 16; Temp 98.6; Pulse Ox 96% on R/A; Weight 95.25 kg; aj Height 5 ft. 8 in. (172.72 cm); 16:52 BP 146 / 95; Pulse 99; Resp 20; Pulse Ox 99% on Nebulizer Mask; Pain 0/10; jb4 17:30 BP 147 / 85; Pulse 89; Resp 18; Pulse Ox 97% on 2 lpm NC; hj 18:59 BP 145 / 87; Pulse 88; Resp 18; Pulse Ox 99% on 2 lpm NC; hj 19:30 BP 139 / 84; Pulse 93; Resp 20; Pulse Ox 99% on R/A; Pain 0/10; ao 15:55 Body Mass Index 31.93 (95.25 kg, 172.72 cm) aj ED Course: 15:43 Patient arrived in ED. sb2 15:44 Javier Cordon MD is Private Physician. sb2 15:53 [facility] jr[facility] 15:53 Sylvain Carter MD is Attending Physician. jr8 15:53 Triage completed. aj 15:55 Arm band placed on left wrist. Patient placed in an exam room. aj 15:58 Patient has correct armband on for positive identification. Placed in gown. Bed in low jb4 position. Call light in reach. Side rails up X2. assistant sales director on. Pulse ox on. NIBP on. 16:21 X-ray completed. Portable x-ray completed in exam room. Patient tolerated procedure ml well. 16:22 XRAY Chest (1 view) In Process Unspecified. EDMS 16:48 Initial lab(s) drawn, by me, sent to lab. Inserted saline lock: 22 gauge in left jb4 forearm, using aseptic technique. Blood collected. 16:50 Mariah Ross, RN is Primary Nurse. iw 16:54 EKG done, by claim technician. reviewed by Jh TAO. 3 20:11 No provider procedures requiring assistance completed. IV discontinued, intact, ao bleeding controlled, No redness/swelling at site. Pressure dressing applied. Administered Medications: 16:06 Drug: Albuterol - atroVENT (3:1) (2.5 mg - 0.5 mg) 3 ml Route: Nebulizer; hj 16:54 Follow up: Response: No adverse reaction hj 16:06 Drug: SOLU-Medrol 125 mg Route: IVP; Site: left forearm; hj 16:55 Follow up: Response: No adverse reaction hj 17:50 Drug: NS 0.9% 1000 ml Route: IV; Rate: 1000 ml; Site: left forearm; hj 18:32 Follow up: IV Status: Infusion continued hj 18:08 Drug: Insulin Regular Human 5 units {Co-Signature: chey (Hermes Pina RN).} Route: iw Sub-Q; Site: right lower abdomen; 18:33 Follow up: Response: No adverse reaction; Blood sugar is lowered iw 20:00 Drug: Insulin Regular Human 5 units {Co-Signature: jolynn Jones RN).} Route: Sub-Q; ao Site: abdomen; 20:11 Follow up: Response: Medication administered at discharge. ao Point of Care Testing: Blood Glucose: 19:33 Blood Glucose: 322 mg/dL; ao Ranges: Outcome: 19:48 Discharge ordered by MD. anthony 20:11 Discharged to home ambulatory. ao 20:11 Condition: stable 20:11 Discharge instructions given to patient, Instructed on discharge instructions, follow up and referral plans. Demonstrated understanding of instructions, follow-up care, medications, Prescriptions given X 1. 20:13 Patient left the ED. ao Signatures: Dispatcher [employer] EDLakesha Reilly, RN RN Mariah Turner RN Savanna Diaz Josh, PA PA jr8 Hermes Pina, Don Murphy RN, RN RN ao Bryson, James, RN RN jb4 Juany Bloom 2 Olivia Meneses 3 Hermes neil
--- NOTE | 2017-10-23 20:15 | EDPHYS ---
Physician Documentation [facility] Name: Rajesh Johansen Age: 77 yrs Sex: Male : 1940 Arrival Date: 10/23/2017 Time: 15:43 Bed 16 Private MD: Javier Cordon V ED Physician Sylvain Carter HPI: 10/23 16:14 This 77 yrs old Male presents to ER via Ambulatory with complaints of COPD jr8 Exacerbation. 16:14 The patient has shortness of breath at rest. Onset: The symptoms/episode began/occurred jr8 gradually, 2 month(s) ago. Duration: The symptoms are continuous. The patient's shortness of breath is aggravated by coughing. Associated signs and symptoms: The patient has no apparent associated signs or symptoms. Severity of symptoms: At their worst the symptoms were moderate in the emergency department the symptoms are unchanged. The patient has experienced a previous episode. The patient has been recently seen by a physician:. . 16:38 Patient stated that he has had persistent dry cough for the past two months that has jr8 been unrelieved with prescribed medicine. Saw his tire debeader today and was given orders to go to either [place] or here since he lives in [place] for further evaluation. Patient has had shortness of breath. Denies fevers or chest tightness . Historical: - Allergies: 15:55 No Known Allergies; aj - PMHx: 15:55 COPD; Hypertension; Hypothyroidism; Diverticulitis; aj - PSHx: 15:55 back; shoulder; hand; colon resection; aj - Immunization history:: Adult Immunizations up to date. - Social history:: Smoking status: Patient/guardian denies using tobacco. - Ebola Screening: : Patient negative for fever greater than or equal to 101.5 degrees Fahrenheit, and additional compatible Ebola Virus Disease symptoms Patient denies exposure to infectious person Patient denies travel to an Ebola-affected area in the 21 days before illness onset No symptoms or risks identified at this time. ROS: 16:38 Eyes: Negative for injury, pain, redness, and discharge, ENT: Negative for injury, jr8 pain, and discharge, Neck: Negative for injury, pain, and swelling, Abdomen/GI: Negative for abdominal pain, nausea, vomiting, diarrhea, and constipation, Back: Negative for injury and pain, MS/Extremity: Negative for injury and deformity, Skin: Negative for injury, rash, and discoloration, Neuro: Negative for headache, weakness, numbness, tingling, and seizure. 16:38 Cardiovascular: Negative for chest pain, edema, orthopnea, palpitations, paroxysmal nocturnal dyspnea. 16:38 Respiratory: Positive for cough, with no reported sputum, dyspnea on exertion, shortness of breath. Exam: 16:38 Eyes: Pupils equal round and reactive to light, extra-ocular motions intact. Lids and jr8 lashes normal. Conjunctiva and sclera are non-icteric and not injected. Cornea within normal limits. Periorbital areas with no swelling, redness, or edema. ENT: Nares patent. No nasal discharge, no septal abnormalities noted. Tympanic membranes are normal and external auditory canals are clear. Oropharynx with no redness, swelling, or masses, exudates, or evidence of obstruction, uvula midline. Mucous membranes moist. Neck: Trachea midline, no thyromegaly or masses palpated, and no cervical lymphadenopathy. Supple, full range of motion without nuchal rigidity, or vertebral point tenderness. No Meningismus. Cardiovascular: Regular rate and rhythm with a normal S1 and S2. No gallops, murmurs, or rubs. Normal PMI, no JVD. No pulse deficits. Abdomen/GI: Soft, non-tender, with normal bowel sounds. No distension or tympany. No guarding or rebound. No evidence of tenderness throughout. Back: No spinal tenderness. No costovertebral tenderness. Full range of motion. Skin: Warm, dry with normal turgor. Normal color with no rashes, no lesions, and no evidence of cellulitis. MS/ Extremity: Pulses equal, no cyanosis. Neurovascular intact. Full, normal range of motion. Neuro: Awake and alert, GCS 15, oriented to person, place, time, and situation. Cranial nerves II-XII grossly intact. Motor strength 5/5 in all extremities. Sensory grossly intact. Cerebellar exam normal. Normal gait. 16:38 Respiratory: the patient does not display signs of respiratory distress, Respirations: tachypnea, Breath sounds: are clear throughout, no bronchial sounds, no decreased breath sounds, no rales, rhonchi, no stridor, no wheezing. Vital Signs: 15:55 BP 171 / 103; Pulse 94; Resp 16; Temp 98.6; Pulse Ox 96% on R/A; Weight 95.25 kg; aj Height 5 ft. 8 in. (172.72 cm); 16:52 BP 146 / 95; Pulse 99; Resp 20; Pulse Ox 99% on Nebulizer Mask; Pain 0/10; jb4 17:30 BP 147 / 85; Pulse 89; Resp 18; Pulse Ox 97% on 2 lpm NC; hj 18:59 BP 145 / 87; Pulse 88; Resp 18; Pulse Ox 99% on 2 lpm NC; hj 19:30 BP 139 / 84; Pulse 93; Resp 20; Pulse Ox 99% on R/A; Pain 0/10; ao 15:55 Body Mass Index 31.93 (95.25 kg, 172.72 cm) aj MDM: 15:53 Patient medically screened. jr8 19:46 Data reviewed: vital signs, nurses notes, lab test result(s), radiologic studies, plain jr8 films, and as a result, I will discharge patient. Data interpreted: Pulse oximetry: on room air is 99 %. Interpretation: normal. Counseling: I had a detailed discussion with the patient and/or guardian regarding: the historical points, exam findings, and any diagnostic results supporting the discharge/admit diagnosis, lab results, radiology results, the need for outpatient follow up, a family practitioner, a tire debeader, to return to the emergency department if symptoms worsen or persist or if there are any questions or concerns that arise at home. ED course: Detailed explanation about labs with patient and family. Needs to f/u. Pathology requested for myelocytes seen. Will put on antibiotics and have him f/u with his tire debeader. Needs to monitor glucose as well since he has been on so many steroids lately . 10/23 16:06 Order name: Basic Metabolic Panel; Complete Time: 17:44 10/23 16:06 Order name: CBC with Diff; Complete Time: 18:22 10/23 16:06 Order name: LFT's; Complete Time: 17:44 10/23 16:06 Order name: Magnesium; Complete Time: 17:44 10/23 16:06 Order name: NT PRO-BNP; Complete Time: 17:44 10/23 16:06 Order name: PT-INR; Complete Time: 17:01 10/23 16:06 Order name: Troponin (emerg Dept Use Only); Complete Time: 17:44 [facility] 10/23 16:06 Order name: XRAY Chest (1 view); Complete Time: 16:38 [facility] 10/23 17:02 Order name: Blood Culture Adult (2) [facility] 10/23 17:15 Order name: Manual Differential; Complete Time: 18:22 [facility] 10/23 18:11 Order name: Slides for Pathologist Review [facility] 10/23 18:56 Order name: Urine Dipstick--Ancillary (enter results); Complete Time: 19:45 10/23 16:06 Order name: EKG; Complete Time: 16:06 [facility] 10/23 16:06 Order name: Cardiac monitoring; Complete Time: 16:09 [facility] 10/23 16:06 Order name: EKG - Nurse/Tech; Complete Time: 16:49 [facility] 10/23 16:06 Order name: IV Saline Lock; Complete Time: 16:49 [facility] 10/23 16:06 Order name: Labs collected and sent; Complete Time: 16:49 [facility] 10/23 16:06 Order name: O2 Per Protocol; Complete Time: 16:09 10/23 16:06 Order name: O2 Sat Monitoring; Complete Time: 16:09 [facility] 10/23 16:06 Order name: Urine Dipstick-Ancillary (obtain specimen); Complete Time: 18:34 jr8 Administered Medications: 16:06 Drug: Albuterol - atroVENT (3:1) (2.5 mg - 0.5 mg) 3 ml Route: Nebulizer; hj 16:54 Follow up: Response: No adverse reaction hj 16:06 Drug: SOLU-Medrol 125 mg Route: IVP; Site: left forearm; hj 16:55 Follow up: Response: No adverse reaction hj 17:50 Drug: NS 0.9% 1000 ml Route: IV; Rate: 1000 ml; Site: left forearm; hj 18:32 Follow up: IV Status: Infusion continued hj 18:08 Drug: Insulin Regular Human 5 units {Co-Signature: chey (Hermes Pina RN).} Route: iw Sub-Q; Site: right lower abdomen; 18:33 Follow up: Response: No adverse reaction; Blood sugar is lowered iw 20:00 Drug: Insulin Regular Human 5 units {Co-Signature: jolynn (Lakesha Jones RN).} Route: Sub-Q; ao Site: abdomen; 20:11 Follow up: Response: Medication administered at discharge. ao Point of Care Testing: Blood Glucose: 19:33 Blood Glucose: 322 mg/dL; ao Ranges: Critical Glucose Levels:Adult <50 mg/dl or >400 mg/dl <40 mg/dl or >180 mg/dl Disposition: 10/24 07:08 Co-signature as Attending Physician, Sylvain Carter MD I agree with the assessment and sierra plan of care. Disposition: 10/23/17 19:48 Discharged to Home. Impression: Chronic obstructive pulmonary disease with (acute) exacerbation, Hyperglycemia, unspecified. - Condition is Stable. - Discharge Instructions: Chronic Obstructive Pulmonary Disease, Hyperglycemia, Blood Glucose Monitoring, Adult. - Prescriptions for Zithromax Z- Luis Miguel 250 mg Oral Tablet - take 1 tablet by ORAL route as directed for 5 days Day 1 - take two (2) tablets one time. Day 2, 3, 4 , 5 take one (1) tablet once daily.; 6 tablet. - Medication Reconciliation Form, Thank You Letter, Antibiotic Education, Prescription Opioid Use form. - Follow up: Private Physician; When: 2 - 3 days; Reason: Recheck today's complaints, Continuance of care, Re-evaluation by your physician. - Problem is new. - Symptoms have improved. Signatures: Dispatcher [employer] Lakesha Palm RN RN aj Anderson, Corey, MD MD cha Williams, Irene, RN RN iw Roszak, Josh, PA PA jr8 Hermes Pina RN RN hj Ortiz, Alex, RN RN ao Henry Joaquin RN hj Amanda Myers RN aj Corrections: (The following items were deleted from the chart) 10/23 20:13 19:48 10/23/2017 19:48 Discharged to Home. Impression: Chronic obstructive pulmonary ao disease with (acute) exacerbation; Hyperglycemia, unspecified. Condition is Stable. Forms are Medication Reconciliation Form, Thank You Letter, Antibiotic Education, Prescription Opioid Use. Follow up: Private Physician; When: 2 - 3 days; Reason: Recheck today's complaints, Continuance of care, Re-evaluation by your physician. Problem is new. Symptoms have improved. jr8
== END 2017-10-23 20:13 | disposition home or self-care (01) ==
LOC: ER 15:41
DX: J44.1 Chronic obstructive pulmonary disease with (acute) exacerbation (principal); R73.9 Hyperglycemia, unspecified; I10 Essential (primary) hypertension; E03.9 Hypothyroidism, unspecified
CPT/HCPCS: 36415; 71045; 80048; 80076; 81003; 83735; 83880; 84484; 85025; 85610; 87040 ×2; 93005; J2930; J7030; 82962; 94640; 96361; 96372; 96374; 99285

== ENCOUNTER 2017-10-29 10:38 | Day surgery (SDC) | payer OTHER ==
[2017-10-29] MEDS ORDERED: PHENYLEPHRINE 10% OPTH 5ML ONE (11:03)
[2017-10-29] MEDS ORDERED: NA CHLORIDE 0.9% 500 ML ONE (11:03)
[2017-10-29] MEDS ORDERED: CYCLOPENTOLATE 1% OPTH 2 ML ONE (11:03)
[2017-10-29] MEDS ORDERED: CYCLOPENTOLATE 1% OPTH 2 ML OPTH ONE ×2 (11:22→11:30)
[2017-10-29] MEDS ORDERED: PHENYLEPHRINE 10% OPTH 5ML OPTH ONE ×2 (11:22→11:30)
[2017-10-29] MEDS: LIDOCAINE 2% MPF 5 ML VIAL ONE ×2 (11:42→12:09)
[2017-10-29] MEDS: TETRACAINE HCL 0.5% 2ML OPTH ONE ×2 (11:42→12:09)
[2017-10-29] MEDS: BUPIVACAINE 0.25% PF 10 ML VIAL ONE ×2 (11:43→12:09)
[2017-10-29] MEDS ORDERED: LIDOCAINE 2% MPF 5 ML VIAL ONE (11:50)
[2017-10-29] MEDS ORDERED: PROPOFOL 200 MG/20 ML VIAL IV ONE (11:50)
[2017-10-29] MEDS ORDERED: EPINEPHRINE/PF 1 MG/ML AMP ONE (12:14)
[2017-10-29] MEDS ORDERED: BALANCED SALT IRRIG PLAIN 500 ML BTL IRR ONE (12:14)
[2017-10-29] MEDS ORDERED: DUOVISC 1 KIT OPTH ONE (12:15)
[2017-10-29] MEDS ORDERED: MOXIFLOXACIN HCL 10 DROPS/ML **OR USE OPTH ONE (12:15)
[2017-10-29] MEDS ORDERED: NS 0.9% VIAL 10 ML ONE (12:20)
--- NOTE | 2017-10-29 12:57 | P.BOP ---
Preoperative diagnosis: Nulear sclerotic and cortical cataract OS Postoperative diagnosis: Same Primary procedure: Phacoemulsification with IOL OS Estimated blood loss: None Anesthesia: Local (Subtenon's infusion with anesthesia for cataract surgery) Complications: None Implants: [id number] +15.5 Transferred to: Other (Day surgery) Condition: Good
[2017-10-29] MEDS ORDERED: LIDOCAINE 1% MPF 2 ML AMPULE ONE (13:09)
--- OUTSIDE RECORDS SUMMARY | 2017-10-29 14:07 | XMS REPORT | Summary of Care ---
[...] Start : 26-Aug-2015 Active Vitamin D (Ergocalciferol) 94466 UNIT Oral Capsule TAKE 1 CAPSULE WEEKLY. [...] M.D. Start : 30-Aug-2017 Admin Requested Ipratropium [place] 0.02 % Inhalation Solution one dose at [...] : 30-Aug-2017 Active 90 Capsule Bottle Ipratropium [place] 0.02 % Inhalation Solution one dose at [...] 13 Intramuscular Suspension on: 01-Mar-2017 Lot #: [id number] Family History Name Dates Details No pertinent family history (V49.89, Z78.9) Status: Active Name Dates Details Family history of Type 2 diabetes mellitus without complication (250.00, E11.9 ) Status: Active Social History Name Dates Details - Status: Name Dates Details Former smoker Vital Signs Date Test Result Details [id number] BP Systolic 168 mm[Hg] Status: Comments: Location: [...] O2 SAT 96 % Status: Comments: Source: [id number] BP Systolic 136 mm[Hg] Status: Comments: Location: [...] Observations Planned Goals not documented Interventions Provided Medication ChangesCodeine Sulfate 15 MG Oral Tablet - StartPredniSONE 20 MG Oral Tablet - StartFollow-ups/ReferralsGastroenterology Referral; Done: 15 Oct 2017Medications/Immunizations AdministeredMethylPREDNISolone Acetate 40 MG/ML Injection SuspensionPlanPlan 77 year-old man with refractory cough, most consistent with 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
--- NOTE | 2017-10-30 00:50 | OP ---
Surgeon: Christina Hendrix MD Anesthesiologist: 1. Kelby Farrar C.R.N.A. 2. Santos Newman M.D. Diagnosis: Nuclear sclerotic and cortical cataract OS. Procedure: Phaco with IOL, OS Anesthesia: Per cataract surgery. Complications: None. Description Of Procedure: In day surgery, the patient was prepped with Betadine and draped. A conjunctival incision was made in the inferior nasal quadrant with Megan scissors. A sub-Tenon block consisting of a 1:1 mixture of 2% Xylocaine and 0.25% bupivacaine was placed through the conjunctival incision with a blunt cannula. A [place] balloon was placed over the eye and the patient was transferred to the operating room. In the operating room the patient was prepped and draped in the usual sterile fashion for ophthalmic surgery. A lid speculum was placed in the OS. Two paracentesis sites were made superiorly and inferiorly in the limbal cornea. Viscoat was placed in the anterior chamber and a crescent blade was used to make a corneal groove and tunnel, and a keratome was used to enter the anterior chamber. Provisc was placed in the anterior chamber and a 360 degree capsulotomy was performed with a cystitome. The lens was hydrodissected with BSS and rotated freely. The lens was removed with a stop and chop technique. 8.17 CDE phaco used. Residual cortex was removed with the irrigation and aspiration. Provisc was placed in the capsular bag. SN60WF +15.5 lens was placed in the capsular bag without complications. Irrigation and aspiration was used to remove residual viscoelastic. The paracentesis sites were hydrated with BSS. The wound and paracentesis sites were inspected and found to be watertight. Vigamox 0.07 cc was placed intracamerally at the end of the procedure. The eye was irrigated with balanced salt solution. The eye was patched with a soft cotton patch and Richards metal shield. The patient was returned to day surgery in good condition. Comments: Preservative-free epinephrine was placed in the anterior chamber prior to Viscoat and throughout the procedure. 1% preservative-free lidocaine was placed in the anterior chamber during phacoemulsification due to the patient 's pain Discharge Instructions: Mr. Rajesh Johansen is discharged to home in good condition, is to follow up with Dr. Hendrix in the morning. DEE/PRATIBHA Voice ID: [id number] Report ID: [id number] SHERRI
== END 2017-10-29 13:30 | disposition home or self-care (01) ==
LOC: OR 10:38
PROVIDERS: ATTEND Ophthalmology Retina Specialist
PROC: 08RK3JZ Replacement of Left Lens with Synthetic Substitute, Percutaneous Approach (ICD-10-PCS; principal; 2017-10-29 11:00)
DX: H25.012 Cortical age-related cataract, left eye (principal); I10 Essential (primary) hypertension; J44.9 Chronic obstructive pulmonary disease, unspecified; E07.9 Disorder of thyroid, unspecified; G47.33 Obstructive sleep apnea (adult) (pediatric); E78.00 Pure hypercholesterolemia, unspecified; K21.9 Gastro-esophageal reflux disease without esophagitis; Z83.511 Family history of glaucoma
CPT/HCPCS: 66984; J0171; J2001; V2630

== ENCOUNTER 2018-12-08 10:21 | Emergency (ER) | payer OTHER ==
--- OUTSIDE RECORDS SUMMARY | 2018-12-08 10:23 | XMS REPORT | Clinical Summary ---
:1940 Author Organization [facility] Address [address] [place] [address] Care Team Providers Name Role Phone Javier Cordon MD Primary Care Provider Allergies No Known Allergies Medications Medication Sig Dispensed Refills Start Date End Date Status rasagiline (AZILECT) 1 MG Take 0.5 mg by 0 Active tablet mouth daily. metoprolol tartrate Take 25 mg by 0 Active (LOPRESSOR) 25 mg tablet mouth 2 (two) times a day. carbidopa-levodopa Take 1 tablet 0 Active (SINEMET) 25-100 mg per by mouth 3 tablet (three) times a day. dexlansoprazole Take 60 mg by 0 Active (DEXILANT) 60 mg capsule mouth daily. celecoxib (CeleBREX) 200 Take 200 mg by 0 Active MG capsule mouth 2 (two) times a day. tamsulosin (FLOMAX) 0.4 Take 0.4 mg by 0 Active mg capsule mouth daily with dinner. levothyroxine (SYNTHROID, Take 50 mcg by 0 Active LEVOXYL) 50 mcg tablet mouth daily. pregabalin (LYRICA) 100 Take 100 mg by 0 Active MG capsule mouth 2 (two) times a day. simvastatin (ZOCOR) 40 MG Take 40 mg by 0 Active tablet mouth nightly. apixaban (ELIQUIS) 2.5 mg Take by mouth 2 0 Active tablet (two) times a day. cannabidiol, CBD, extract Take by mouth 2 0 Active 100 mg/mL solution (two) times a day. coenzyme Q10 (CO Q-10) Take 200 mg by 0 Active 200 mg capsule mouth daily. Active Problems No known active problems Encounters Date Type Specialty Care Team Description 12/04/2018 Office Visit Urology Keaton Vance MD Elevated PSA (Primary Dx ) 11/20/2018 Telephone Urology Keaton Vance MD after 12/07/2017 Family History Relation Name Status Comments Father Mother Social History Tobacco Use Types Packs/Day Years Used Date Former Smoker Quit: 1970 Smokeless Tobacco: Never Used Alcohol Use Drinks/Week oz/Week Comments Not Currently Sex Assigned at Date Recorded Not on file Job Start Date Occupation Industry Not on file Not on file Not on file Travel History Travel Start Travel End No recent travel history available. 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
--- OUTSIDE RECORDS SUMMARY | 2018-12-08 10:23 | XMS REPORT ---
:1940 Author Organization [facility] Address [address] [place] [address] [address] Care Team Providers Name Role Phone Unavailable Unavailable Unavailable Payers Payer Name Policy Type Policy Number Effective Date Expiration Date Problems This patient has no known problems. Allergies, Adverse Reactions, Alerts Allergy Allergy Status Severity Reaction(s) Onset Inactive Treating Comments Name Type Date Date Clinician No Known DA Active U 2015-04 Allergies -08 00:00:0 0 Medications This patient has no known medications.
--- OUTSIDE RECORDS SUMMARY | 2018-12-08 10:24 | XMS REPORT | Summary of Care ---
:1940 Author Name MARIA TERESA Beltran, MELY Address Unavailable Unavailable , Care Team Providers Name Role Phone Kodak Chavez, Antelmo Unavailable Unavailable KAMRYN Beltran, MEGGAN Unavailable Unavailable ANABEL Beltran, HARINDER Unavailable Unavailable MARIA TERESA Beltran, MELY Unavailable Unavailable ORIN VASQUEZ, FABIAN Anderson Unavailable Unavailable KAMRYN VASQUEZ, MEGGAN Unavailable Unavailable MARIA TERESA VASQUEZ, MELY Rogel Unavailable Unavailable ANABEL VASQUEZ [place], HARINDER Rogel Unavailable Unavailable KALI VASQUEZ, RHINA [place] Unavailable Unavailable Unavailable Unavailable Unavailable Functional Status Name Dates Details Functional status health issues are not documented Status: Name Dates Details Cognitive status health issues are not documented Status: Problems Name Dates Details Low back pain (724.2, M54.5) Status: Active Heartburn (787.1, R12) Status: Active Gastric regurgitation (787.03, R11.10) Status: Active Chronic coughing (786.2, R05) Status: Active Nocturnal cough (786.2, R05) Status: Active Hiatal hernia (553.3, K44.9) Status: Active Arthropathy, transient, shoulder, left (716.41, M12.812) Status: Active Shoulder pain, left (719.41, M25.512) Status: Active Chronic right shoulder pain (719.41, M25.511) Status: Active Medications Name Dates Details Flomax 0.4 MG Oral Capsule Refills: 0 Active Simvastatin 10 MG Oral Tablet Refills: 0 Active Cymbalta 30 MG Oral Capsule Delayed Release Particles Refills: 0 Active Multi Complete CAPS Refills: 0 Active Vitamin D (Ergocalciferol) 75465 UNIT Oral Capsule TAKE 1 CAPSULE WEEKLY. Quantity: 20 Refills: 0 MELY MOREL M.D. Start : 13-Apr-2016 Active ProAir HFA 108 (90 Base) MCG/ACT Inhalation [...] HARINDER LITTLE M.D. Start : 08-Jan-2017 Active Trelegy Ellipta 100-62.5-25 MCG/INH Inhalation Aerosol [...] Active 60 x 3 ML Plas Cont Albuterol Sulfate 1.25 MG/3ML Inhalation Nebulization Solution 1 unit dose by nebulizer in clinic Refills: 0 MEGGAN HARRY M.D. Start : 30-Aug-2017 Admin Requested Ipratropium [place] 0.02 % Inhalation Solution one dose at [...] : 30-Aug-2017 Active 90 Capsule Bottle Ipratropium [place] 0.02 % Inhalation Solution one dose at clinic now Refills: 0 MEGGAN HARRY M.D. Start : 30-Aug-2017 Admin Requested Codeine Sulfate 15 MG TABS TAKE 1 TABLET Twice daily PRN As Directed for worst coughing spells, after nebulizer Quantity: 30 Refills: 0 MEGGAN HARRY M.D. Start : 15-Oct-2017 Active Advair HFA 230-21 MCG/ACT Inhalation Aerosol INHALE 2 PUFFS, BY MOUTH, TWICE DAILY. Rinse mouth after use Quantity: 1 Refills: 6 MEGGAN HARRY M.D. Start : 05-Nov-2017 Active 12 GM Inhaler Spiriva Respimat 2.5 MCG/ACT Inhalation Aerosol Solution INHALE 2 PUFFS ONCE DAILY Quantity: 1 Refills: 6 MEGGAN HARRY M.D. Start : 05-Nov-2017 Active 4 GM Inhaler diazePAM 5 MG Oral Tablet Take 1 PO 30 minutes prior to procedure and 1 PO just before procedure Quantity: 2 Refills: 0 MELY MOREL M.D. Start : 05-Apr-2018 Active diazePAM 2 MG Oral Tablet Take 1 tab 30 minutes prior to MRI Quantity: 2 Refills: 0 HARINDER LITTLE M.D. 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, J44.9) Status: Resolved History of back pain (V13.59, Z87.39) Status: Resolved History of Benign prostatic hyperplasia with lower urinary tract symptoms, unspecified morphology Status: Resolved History of cataract (V12.49, Z86.69) Status: Resolved History of Cervical myelopathy (721.1, G95.9) Status: Resolved History of Cervical radicular pain (723.4, M54.12) Status: Resolved History of Chronic right hip pain (719.45, M25.551) Status: Resolved History of Class 1 obesity with serious comorbidity and body mass index (BMI) of 30.0 to 30.9 in adult, unspecified obesity type (278.00, E66.9) Status: Resolved History of claustrophobia (V11.8, Z86.59) Status: Resolved History of Complete tear of right rotator cuff (727.61, M75.121) Status: Resolved History of cough Status: Resolved History of cough Status: Resolved History of depression (V11.8, Z86.59) Status: Resolved History of Diabetes mellitus type 2 in obese (250.00, E11.69) Status: Resolved History of diverticulitis of colon (V12.79, Z87.19) Status: Resolved History of dyspnea (V12.69, Z87.09) Status: Resolved History of Gastroesophageal reflux disease without esophagitis (530.81, K21.9) Status: Resolved History of Hip abductor tendonitis, right (726.5, M76.891) Status: Resolved History of Hospital-acquired pneumonia (486, J18.9) Status: Resolved History of Iliotibial band syndrome of right side (728.89, M76.31) Status: Resolved History of kidney stones (V13.01, Z87.442) Status: Resolved History of kyphosis (V13.59, Z87.39) Status: Resolved History of low back pain (V13.59, Z87.39) Status: Resolved History of Lumbar foraminal stenosis (724.02, M99.83) Status: Resolved History of Lumbar radicular pain (724.4, M54.16) Status: Resolved History of Lung disease (518.89, J98.4) Status: Resolved History of neck pain (V13.59, Z87.39) Status: Resolved History of neuropathy (V12.49, Z86.69) Status: Resolved History of Other hyperlipidemia (272.4, E78.49) Status: Resolved History of Other specified hypothyroidism (244.8, E03.8) Status: Resolved History of Postoperative infection, initial encounter (998.59, T81.40XA) Status: Resolved 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29, Z86.39) Status: Resolved History of unsteady gait (V15.89, Z87.898) Status: Resolved History of weakness (V13.89, Z87.898) Status: Resolved History of wheezing (V12.69, Z87.898) Status: Resolved Procedures Procedure Dates Details Physical Therapy Date: 25-Sep-2018 History of Cataract Surgery Completed History of Lower Back Surgery Lumbar Disc Completed History of Lumbar Vertebral Fusion Completed History of Rotator Cuff Repair Completed History of Neuroplasty Left Thumb Completed History of Capsulotomy Left Foot First MTP Completed History of Hemicolectomy Completed History of Shoulder Surgery Completed Immunization Name Dates Details Prevnar 13 Intramuscular Suspension on: 01-Mar-2017 Lot #: [id number] Influenza, high dose seasonal, preservative-free on: 03-Dec-2017 Lot #: [id number] Family History Name Dates Details Family history of emphysema (V17.6, Z82.5) Status: Active Name Dates Details Family history of retinal detachment (V19.19, Z83.518) Status: Active Family history of emphysema (V17.6, Z82.5) Status: Active Family history of Type 2 diabetes mellitus without complication, without long- term current use of insulin (250.00, E11.9) Status: Active Family history of Type 2 diabetes mellitus without complication (250.00, E11.9 ) Status: Active Social History Name Dates Details - Status: Name Dates Details Former smoker Former smoker Vital Signs Date Test Result Details No Known Vitals to report Results Date Description Value Details Results not documented Plan of Care Name Dates Details Planned Observations Planned Goals not documented Interventions Provided Labs/Procedures/ImagingPhysical Therapy; To Be Done: 25 Sep 2018 Instructions Name Dates Details Instructions not documented Encounters Appointment; MEGGAN HARRY M.D. On: 26-Dec-2016 13:00 [...] 23-Oct-2017 13:00 Encounter Diagnosis: Problem not documented Appointment; MEGGAN HARRY M.D. On: 05-Nov-2017 13:30 Encounter Diagnosis: Problem not documented Appointment; MEGGAN HARRY M.D. On: 03-Dec-2017 13:00 Encounter Diagnosis: Problem not documented Appointment; PREM BRUSH M.D. On: 12-Dec-2017 14:00 Encounter Diagnosis: Problem not documented Appointment; MELY MOREL M.D. On: 02-Apr-2018 14:00 Encounter Diagnosis: Problem not documented Appointment; HARINDER LITTLE M.D. On: 15-Apr-2018 11:30 Encounter Diagnosis: Problem not documented Appointment; NABIL YAO M.D. On: 24-Apr-2018 11:00 Encounter Diagnosis: Problem not documented Appointment; HARINDER LITTLE M.D. On: 30-Apr-2018 10:00 Encounter Diagnosis: Problem not documented Appointment; DICK LIZAMA M.D. On: 07-May-2018 10:30 Encounter Diagnosis: Problem not documented Appointment; NABIL YAO M.D. On: 08-May-2018 13:45 Encounter Diagnosis: Problem not documented Appointment; HARINDER LITTLE M.D. On: 17-May-2018 8:00 Encounter Diagnosis: Problem not documented Appointment; HARINDER LITTLE M.D. On: 30-May-2018 10:45 Encounter Diagnosis: Problem not documented Appointment; HARINDER LITTLE M.D. On: 04-Jul-2018 10:30 Encounter Diagnosis: Problem not documented Appointment; HARINDER LITTLE M.D. On: 15-Aug-2018 10:30 Encounter Diagnosis: Problem not documented
[2018-12-08] MEDS ORDERED: TETANUS & DIPHTHERIA TOX,ADULT 0.5 ML VIAL ONE (10:35)
--- NOTE | 2018-12-08 10:54 | RAD REPORT ---
EXAM DESCRIPTION: CT - Head Brain Wo Cont - 12/08/2018 10:43 am CLINICAL HISTORY: Fall backwards, head injury, no LOC COMPARISON: No comparisons TECHNIQUE: All CT scans are performed using dose optimization technique as appropriate and may inclu de automated exposure control or mA/KV adjustment according to patient size. FINDINGS: No intracranial hemorrhage, hydrocephalus or extra-axial fluid collection.Mild generalized brain atrophy is present with mild periventricular and deep white matter chronic microvascular ische marek changes.No areas of brain edema or evidence of midline shift. The paranasal sinuses and mastoids are clear. The calvarium is intact. IMPRESSION: No acute intracranial abnormality.
--- NOTE | 2018-12-08 11:16 | ER ---
Nurse's Notes [facility] Name: Rajesh Johansen Age: 78 yrs Sex: Male : 1940 Arrival Date: 12/08/2018 Time: 10:22 Bed 2 Private MD: Javier Cordon V Diagnosis: Superficial injury of head;Other slipping, tripping and stumbling and falls Presentation: 12/08 10:30 Presenting complaint: Fell from standing position on driveway x 2 at 0600 today. hb Contusion to back of head, abrasions to bilateral elbows and knees noted. No bleeding at this time. Denies LOC. Care prior to arrival: None. Mechanism of Injury: Fall from standing position. Trauma event details: Injury occurred in the [facility], Injury occurred: at home. Injury occurred: December 08, 2018 Injury occurred at: 06:00. 10:30 Acuity: SOHAM 2 hb 10:30 Method Of Arrival: Ambulatory hb 10:30 Transition of care: patient was not received from another setting of care. Onset of tw2 symptoms was December 08, 2018. Risk Assessment: Do you want to hurt yourself or someone else? Patient reports no desire to harm self or others. Initial Sepsis Screen: Does the patient meet any 2 criteria? No. Patient's initial sepsis screen is negative. Does the patient have a suspected source of infection? No. Patient's initial sepsis screen is negative. 10:30 Onset of symptoms was December 08, 2018 at 10:30. tw2 Triage Assessment: 10:30 General: Appears in no apparent distress. Behavior is calm, cooperative, appropriate tw2 for age. Pain: Complains of pain in "just knees and elbows". Trauma Activation: Alert Physician: ED Physician; Name: ; Notified At: ; Arrived At: Physician: General Surgeon; Name: ; Notified At: ; Arrived At: Physician: Radiology; Name: ; Notified At: ; Arrived At: Physician: Respiratory; Name: ; Notified At: ; Arrived At: Physician: Lab; Name: ; Notified At: ; Arrived At: Historical: - Allergies: 10:30 No Known Allergies; tw2 - Home Meds: 10:39 rasagiline oral 1 mg oral 1 tab once daily [Active]; metoprolol succinate 25 mg oral tw2 Tb24 1 tab once daily [Active]; carbidopa-levodopa 25-100 mg Oral tab 1 tab 3 times per day [Active]; ropinirole 0.5 mg oral tab 1 tab 3 times per day [Active]; Dexilant 60 mg oral CpDB 1 cap once daily [Active]; duloxetine 60 mg oral cpDR 1 cap once daily [Active]; Celebrex 200 mg Oral cap 1 cap once daily [Active]; tamsulosin 0.4 mg oral cp24 1 cap once daily [Active]; levothyroxine 50 mcg tab 1 tab once daily [Active]; pregabalin 100 mg Oral 1 cap 2 times per day [Active]; simvastatin 40 mg Oral tab 1 tab once daily [Active]; Eliquis 2.5 mg oral tab 1 tab daily [Active]; cbd oil 1000 mg PO once daily [Active]; CoQ-10 oral 200 mg oral daily [Active]; - PMHx: 10:30 COPD; Diverticulitis; Hypertension; Hypothyroidism; tw2 - PSHx: 10:30 back; colon resection; shoulder; hand; tw2 - Immunization history:: Adult Immunizations. - Immunization history: Last tetanus immunization: > 10 years ago. - Social history:: Smoking status: . - Ebola Screening: : Patient denies travel to an Ebola-affected area in the 21 days before illness onset. Screenin:30 Abuse screen: Denies threats or abuse. Nutritional screening: No deficits noted. tw2 Tuberculosis screening: No symptoms or risk factors identified. Fall Risk Secondary diagnosis (15 points) impaired mobility. Primary Survey: 10:35 NO uncontrolled hemorrhage observed. hb 10:35 A: The patient is alert. Airway: patent. Breathing/Chest: Respiratory pattern: regular, hb Respiratory effort: spontaneous, unlabored, Chest inspection: symmetrical rise and fall of the chest. Circulation: Skin color: pink, Skin temperature: warm, dry. Disability Alert. Exposure/Environment: There is no evidence of uncontrolled external bleeding. Obvious injury(ies) are noted at this time: contusion to back of head, abrasions to bilateral elbows and knees. 11:35 Reassessment Airway Airway Patent Breathing/Chest Respiratory pattern Regular tw2 Respiratory effort Spontaneous Unlabored Breath sounds Clear Chest inspection Symmetrical Circulation Heart tones Present Disability Alert. Secondary Survey: 10:35 HEENT: No deficits noted. Gastrointestinal: No deficits noted. : No deficits noted. tw2 Musculoskeletal: Range of motion: intact in all extremities. Injury Description: Abrasion sustained to b/l knees, b/l elbows, back of head. Assessment: 11:08 Reassessment: Patient appears in no apparent distress at this time. Patient and/or tw2 family updated on plan of care and expected duration. Pain level reassessed. Patient is alert, oriented x 3, equal unlabored respirations, skin warm/dry/pink. 11:54 Reassessment: Patient appears in no apparent distress at this time. Patient and/or tw2 family updated on plan of care and expected duration. Pain level reassessed. Patient is alert, oriented x 3, equal unlabored respirations, skin warm/dry/pink. Vital Signs: 10:34 BP 129 / 70; Pulse 77; Resp 17; Temp 97.9(TE); Pulse Ox 97% on R/A; tw2 11:08 BP 109 / 78; Pulse 71; Resp 17; Pulse Ox 98% on R/A; Pain 1/10; tw2 Leah Coma Score: 10:35 Eye Response: spontaneous(4). Verbal Response: oriented(5). Motor Response: obeys tw2 commands(6). Total: 15. Trauma Score (Adult): 10:35 Eye Response: spontaneous(1); Verbal Response: oriented(1); Motor Response: obeys tw2 commands(2); Systolic BP: > 89 mm Hg(4); Respiratory Rate: 10 to 29 per min(4); Leah Score: 15; Trauma Score: 12 ED Course: 10:22 Patient arrived in ED. rg4 10:23 Javier Cordon MD is Private Physician. rg4 10:25 Shahid Meza MD is Attending Physician. kdr 10:25 Placed in gown. Bed in low position. Adult w/ patient. campus monitor on. Pulse ox on. tw2 NIBP on. 10:30 Thermoregulation: warm blanket given to patient. tw2 10:33 Casie Brock, SANDRA is Primary Nurse. tw2 10:35 Triage completed. hb 10:35 Patient maintains SpO2 saturation greater than 95% on room air. tw2 10:36 Arm band placed on. hb 11:14 Javier Cordon MD is Referral Physician. kdr 11:54 No provider procedures requiring assistance completed. Patient did not have IV access tw2 during this emergency room visit. Administered Medications: 11:00 Drug: Tetanus-Diphtheria Toxoid Adult 0.5 ml {Cloud Administrator: [employer]. Exp: 08/06/2020. Lot #: [id number]. } Route: IM; Site: right deltoid; Intake: 11:08 PO: 0ml; Total: 0ml. tw2 Outcome: 11:15 Discharge ordered by . kdr 11:54 Patient left the ED. sg 11:54 Discharged to home ambulatory, with significant other. tw2 11:54 Condition: stable 11:54 Discharge instructions given to patient, significant other, Instructed on discharge instructions, follow up and referral plans. Demonstrated understanding of instructions, follow-up care. 11:54 Patient's length of stay was not longer than 2 hours. tw2 Signatures: Connor Leslie RN RN sg Shahid Meza MD MD [facility] [address] Maday Boudreaux RN RN Casie Brock RN RN 2 Stacey Sandoval 4 Corrections: (The following items were deleted from the chart) 11:08 10:34 BP 129 / 70; Pulse 77bpm; Resp 17bpm; Pulse Ox 97% RA; tw2 tw2
--- NOTE | 2018-12-08 11:17 | EDPHYS ---
Physician Documentation [facility] Name: Rajesh Johansen Age: 78 yrs Sex: Male : 1940 Arrival Date: 12/08/2018 Time: 10:22 Bed 2 Private MD: Javier Cordon V ED Physician Shahid Meza HPI: 12/08 10:31 This 78 yrs old Male presents to ER via Unassigned with complaints of Fall kdr Injury, Head Injury-Adult. 10:31 Details of fall: The patient fell from an upright position, while standing. Onset: The kdr symptoms/episode began/occurred acutely, suddenly, this morning, at 06:00. Associated injuries: The patient sustained injury to the head. Severity of symptoms: At their worst the symptoms were mild, moderate, in the emergency department the symptoms have improved, markedly. The patient has not experienced similar symptoms in the past. The patient has not recently seen a physician. Historical: - Allergies: 10:30 No Known Allergies; tw2 - Home Meds: 10:39 rasagiline oral 1 mg oral 1 tab once daily [Active]; metoprolol succinate 25 mg oral tw2 Tb24 1 tab once daily [Active]; carbidopa-levodopa 25-100 mg Oral tab 1 tab 3 times per day [Active]; ropinirole 0.5 mg oral tab 1 tab 3 times per day [Active]; Dexilant 60 mg oral CpDB 1 cap once daily [Active]; duloxetine 60 mg oral cpDR 1 cap once daily [Active]; Celebrex 200 mg Oral cap 1 cap once daily [Active]; tamsulosin 0.4 mg oral cp24 1 cap once daily [Active]; levothyroxine 50 mcg tab 1 tab once daily [Active]; pregabalin 100 mg Oral 1 cap 2 times per day [Active]; simvastatin 40 mg Oral tab 1 tab once daily [Active]; Eliquis 2.5 mg oral tab 1 tab daily [Active]; cbd oil 1000 mg PO once daily [Active]; CoQ-10 oral 200 mg oral daily [Active]; - PMHx: 10:30 COPD; Diverticulitis; Hypertension; Hypothyroidism; tw2 - PSHx: 10:30 back; colon resection; shoulder; hand; tw2 - Immunization history:: Adult Immunizations. - Immunization history: Last tetanus immunization: > 10 years ago. - Social history:: Smoking status: . - Ebola Screening: : Patient denies travel to an Ebola-affected area in the 21 days before illness onset. ROS: 10:31 Constitutional: Negative for fever, chills, and weight loss, Eyes: Negative for injury, kdr pain, redness, and discharge, ENT: Negative for injury, pain, and discharge, Neck: Negative for injury, pain, and swelling, Cardiovascular: Negative for chest pain, palpitations, and edema, Respiratory: Negative for shortness of breath, cough, wheezing, and pleuritic chest pain, Abdomen/GI: Negative for abdominal pain, nausea, vomiting, diarrhea, and constipation, Back: Negative for injury and pain, : Negative for injury, bleeding, discharge, and swelling, MS/Extremity: Negative for injury and deformity, Skin: Negative for injury, rash, and discoloration, Neuro: Negative for headache, weakness, numbness, tingling, and seizure activity. Psych: Negative for depression, anxiety, suicide ideation, homicidal ideation, and hallucinations, Allergy/Immunology: Negative for hives, rash, and allergies, Endocrine: Negative for neck swelling, polydipsia, polyuria, polyphagia, and marked weight changes, Hematologic/Lymphatic: Negative for swollen nodes, abnormal bleeding, and unusual bruising. Exam: 10:31 Constitutional: This is a well developed, well nourished patient who is awake, alert, kdr and in no acute distress. Head/Face: Normocephalic, atraumatic. Eyes: Pupils equal round and reactive to light, extra-ocular motions intact. Lids and lashes normal. Conjunctiva and sclera are non-icteric and not injected. Cornea within normal limits. Periorbital areas with no swelling, redness, or edema. Neck: Trachea midline, no thyromegaly or masses palpated, and no cervical lymphadenopathy. Supple, full range of motion without nuchal rigidity, or vertebral point tenderness. No Meningismus. Chest/axilla: Normal chest wall appearance and motion. Nontender with no deformity. No lesions are appreciated. Cardiovascular: Regular rate and rhythm with a normal S1 and S2. No gallops, murmurs, or rubs. Normal PMI, no JVD. No pulse deficits. Respiratory: Lungs have equal breath sounds bilaterally, clear to auscultation and percussion. No rales, rhonchi or wheezes noted. No increased work of breathing, no retractions or nasal flaring. Abdomen/GI: Soft, non-tender, with normal bowel sounds. No distension or tympany. No guarding or rebound. No evidence of tenderness throughout. Back: No spinal tenderness. No costovertebral tenderness. Full range of motion. MS/ Extremity: Pulses equal, no cyanosis. Neurovascular intact. Full, normal range of motion. Neuro: Awake and alert, GCS 15, oriented to person, place, time, and situation. Cranial nerves II-XII grossly intact. Motor strength 5/5 in all extremities. Sensory grossly intact. Cerebellar exam normal. Normal gait. Psych: Awake, alert, with orientation to person, place and time. Behavior, mood, and affect are within normal limits. 10:31 Skin: injury, abrasion(s), small abrasion noted, Multiple. Vital Signs: 10:34 BP 129 / 70; Pulse 77; Resp 17; Temp 97.9(TE); Pulse Ox 97% on R/A; tw2 11:08 BP 109 / 78; Pulse 71; Resp 17; Pulse Ox 98% on R/A; Pain 1/10; tw2 Leah Coma Score: 10:35 Eye Response: spontaneous(4). Verbal Response: oriented(5). Motor Response: obeys tw2 commands(6). Total: 15. Trauma Score (Adult): 10:35 Eye Response: spontaneous(1); Verbal Response: oriented(1); Motor Response: obeys tw2 commands(2); Systolic BP: > 89 mm Hg(4); Respiratory Rate: 10 to 29 per min(4); [place] Score: 15; Trauma Score: 12 MDM: 11:15 Patient medically screened. kdr 11:25 Data reviewed: vital signs, nurses notes. Counseling: I had a detailed discussion with kdr the patient and/or guardian regarding: the historical points, exam findings, and any diagnostic results supporting the discharge/admit diagnosis, radiology results, the need for outpatient follow up. Special discussion: Based on the patient's history, exam and DX evaluation, there is no indication for emergent intervention or inpatient TX. It is understood by the patient/guardian that if the SXs persist or worsen they need to return immediately for re-evaluation. I discussed with the patient/guardian in detail that at this point there is no indication for admission to the hospital. It is understood, however, that if the symptoms persist or worsen the patient needs to return immediately for re-evaluation. 12/08 10:30 Order name: CT Head Brain wo Cont kdr 12/08 10:55 Order name: CT; Complete Time: 11:14 EDMS Administered Medications: 11:00 Drug: Tetanus-Diphtheria Toxoid Adult 0.5 ml {Confidential Investigator: [place]. Exp: tw2 08/06/2020. Lot #: [id number]. } Route: IM; Site: right deltoid; Disposition: 12/08/18 11:15 Discharged to Home. Impression: Superficial injury of head, Other slipping, tripping and stumbling and falls. - Condition is Stable. - Discharge Instructions: VIS, Diphtheria, Tetanus, and Pertussis (DTaP) - CDC, Head Injury, Adult, [id number]. - Medication Reconciliation Form, Thank You Letter form. - Follow up: Javier Cordon MD; When: 2 - 3 days; Reason: If symptoms return, Further diagnostic work-up, Recheck today's complaints, Continuance of care, Re-evaluation by your physician. - Problem is new. - Symptoms are resolved. Signatures: Dispatcher [employer] EDMS Connor Leslie RN RN sg Rittger, Kevin, MD MD [facility] Maday Boudreaux RN RN hb Wise, Tara, RN RN tw2 Corrections: (The following items were deleted from the chart) 11:54 11:15 12/08/2018 11:15 Discharged to Home. Impression: Superficial injury of head; sg Other slipping, tripping and stumbling and falls. Condition is Stable. Forms are Medication Reconciliation Form, Thank You Letter, Antibiotic Education, Prescription Opioid Use. Follow up: Javier Cordon; When: 2 - 3 days; Reason: If symptoms return, Further diagnostic work-up, Recheck today's complaints, Continuance of care, Re-evaluation by your physician. Problem is new. Symptoms are resolved. kdr
== END 2018-12-08 11:54 | disposition home or self-care (01) ==
LOC: ER 10:21
DX: S00.90XA Unspecified superficial injury of unspecified part of head, initial encounter (principal); W01.0XXA Fall on same level from slipping, tripping and stumbling without subsequent striking against object, initial encounter; Y93.9 Activity, unspecified; Y92.9 Unspecified place or not applicable; E03.9 Hypothyroidism, unspecified; I10 Essential (primary) hypertension
CPT/HCPCS: 70450; 90471; 90714; 99284

== ENCOUNTER 2019-03-18 10:15 | Emergency (ER) | payer OTHER ==
[2019-03-18] MEDS ORDERED: ALBUTEROL 2.5 MG/3 ML NEB SOL ONE (10:50)
[2019-03-18] MEDS ORDERED: IPRATROPIUM BROM 0.5MG/2.5ML ONE (10:50)
--- OUTSIDE RECORDS SUMMARY | 2019-03-18 14:31 | XMS REPORT ---
:1940 [facility] Address [address] [place] [address] Care Team Providers Name Role Phone Unavailable Unavailable Unavailable Payers Payer Name Policy Type Policy Number Effective Date Expiration Date Problems This patient has no known problems. Allergies, Adverse Reactions, Alerts Allergy Allergy Status Severity Reaction(s) Onset Inactive Treating Comments Name Type Date Date Clinician No Known DA Active U 2015-04 Allergies -08 00:00:0 0 Medications This patient has no known medications. Encounters Start End Encounter Admission Attending Care Care Encounter Date/Time Date/Time Type Type Clinicians Facility Department ID 2019-03-07 Inpatient U [facility] [id number] 15:28:00
[2019-03-18 14:51] LABS: Magnesium 2.4 mg/dL (1.8-2.4); Potassium 3.9 mmol/L (3.5-5.1); Troponin I 0.02 ng/mL (0.0-0.045)
[2019-03-18 15:03] LABS: Basophils % 0.7 % (0-1.3); Hematocrit 42.1 % (39.6-49.0); Lymphocytes % 7.6 % (15.3-44.8); MPV 7.2 fL (7.6-11.3)
[2019-03-18 15:04] LABS: Blood Morphology Comment NOT SEEN (NOT SEEN); Platelet Estimate ADEQ; Urine White Blood Cell Casts OK
--- NOTE | 2019-03-18 15:41 | RAD REPORT ---
EXAM DESCRIPTION: RAD - Chest Single View - 03/18/2019 2:53 pm CLINICAL HISTORY: SOB Chest pain. COMPARISON: Chest Pa And Lat (2 Views) dated 02/17/2019 FINDINGS: Portable technique limits examination quality. The lungs are grossly clear. The heart is normal in size. No displaced fractures.Bilateral shoulder a rthroplasties IMPRESSION: No acute intrathoracic process suspected.
--- NOTE | 2019-03-18 23:32 | EDPHYS ---
Physician Documentation [facility] Name: Rajesh Johansen Age: 78 yrs Sex: Male : 1940 Arrival Date: 03/18/2019 Time: 10:24 Bed 6 Private MD: Javier Cordon V ED Physician Michael Orozco HPI: 03/18 11:59 This 78 yrs old Male presents to ER via Wheelchair with complaints of Cough, jr8 Shortness Of Breath. 11:59 The patient or guardian reports cough, that is intermittent, described as mild, with no jr8 sputum. Onset: The symptoms/episode began/occurred gradually, 2 day(s) ago. Severity of symptoms: At their worst the symptoms were mild, in the emergency department the symptoms are unchanged. Modifying factors: The symptoms are alleviated by nothing, the symptoms are aggravated by nothing. Associated signs and symptoms: Pertinent positives: shortness of breath. It is unknown whether or not the patient has had similar symptoms in the past. The patient has not recently seen a physician. - Immunization history:: Pneumococcal vaccine is up to date, Flu vaccine is up to date. - Social history:: Smoking status: Patient/guardian denies using tobacco, but has a distant history of tobacco abuse. - Ebola Screening: : No symptoms or risks identified at this time. ROS: 11:59 Eyes: Negative for injury, pain, redness, and discharge, ENT: Negative for injury, jr8 pain, and discharge, Neck: Negative for injury, pain, and swelling, Cardiovascular: Negative for chest pain, palpitations, and edema, Abdomen/GI: Negative for abdominal pain, nausea, vomiting, diarrhea, and constipation, Back: Negative for injury and pain, MS/Extremity: Negative for injury and deformity, Skin: Negative for injury, rash, and discoloration, Neuro: Negative for headache, weakness, numbness, tingling, and seizure. 11:59 Respiratory: Positive for cough, dyspnea on exertion, shortness of breath, wheezing. Exam: 11:59 Eyes: Pupils equal round and reactive to light, extra-ocular motions intact. Lids and jr8 lashes normal. Conjunctiva and sclera are non-icteric and not injected. Cornea within normal limits. Periorbital areas with no swelling, redness, or edema. ENT: Nares patent. No nasal discharge, no septal abnormalities noted. Tympanic membranes are normal and external auditory canals are clear. Oropharynx with no redness, swelling, or masses, exudates, or evidence of obstruction, uvula midline. Mucous membranes moist. Neck: Trachea midline, no thyromegaly or masses palpated, and no cervical lymphadenopathy. Supple, full range of motion without nuchal rigidity, or vertebral point tenderness. No Meningismus. Cardiovascular: Regular rate and rhythm with a normal S1 and S2. No gallops, murmurs, or rubs. Normal PMI, no JVD. No pulse deficits. Abdomen/GI: Soft, non-tender, with normal bowel sounds. No distension or tympany. No guarding or rebound. No evidence of tenderness throughout. Back: No spinal tenderness. No costovertebral tenderness. Full range of motion. Skin: Warm, dry with normal turgor. Normal color with no rashes, no lesions, and no evidence of cellulitis. MS/ Extremity: Pulses equal, no cyanosis. Neurovascular intact. Full, normal range of motion. Neuro: Awake and alert, GCS 15, oriented to person, place, time, and situation. Cranial nerves II-XII grossly intact. Motor strength 5/5 in all extremities. Sensory grossly intact. Cerebellar exam normal. Normal gait. 11:59 Respiratory: the patient does not display signs of respiratory distress, Respirations: tachypnea, that is mild, Breath sounds: wheezing: expiratory that is moderate, is heard diffusely. Vital Signs: 10:30 BP 114 / 79; Pulse 105; Resp 20 S; Temp 97.5(O); Pulse Ox 94% on R/A; aa5 10:32 Weight 95.25 kg (R); Height 5 ft. 8 in. (172.72 cm) (R); aa5 12:30 BP 126 / 76; Pulse 89; Resp 18; Pulse Ox 100% on R/A; Pain 0/10; hb 10:32 Body Mass Index 31.93 (95.25 kg, 172.72 cm) aa5 MDM: 11:04 Patient medically screened. [facility] 11:59 Data reviewed: vital signs, nurses notes, lab test result(s), EKG, radiologic studies, jr8 plain films. Data interpreted: Pulse oximetry: on room air is 94 %. Interpretation: normal. Counseling: I had a detailed discussion with the patient and/or guardian regarding: the historical points, exam findings, and any diagnostic results supporting the discharge/admit diagnosis, lab results, radiology results, the need for outpatient follow up, a family practitioner, to return to the emergency department if symptoms worsen or persist or if there are any questions or concerns that arise at home. Response to treatment: the patient's symptoms have markedly improved after treatment. Administered Medications: No medications were administered Disposition: 15:52 Co-signature as Attending Physician, Michael Orozco MD. ma2 Disposition: 03/18/19 12:02 Discharged to Home. Impression: Acute bronchitis. - Condition is Stable. - Discharge Instructions: Acute Bronchitis, Adult. - Prescriptions for Zithromax Z- Luis Miguel 250 mg Oral Tablet - take 1 tablet by ORAL route as directed for 5 days Day 1 - take two (2) tablets one time. Day 2, 3, 4 , 5 take one (1) tablet once daily.; 6 tablet. - Medication Reconciliation Form, Thank You Letter, Antibiotic Education, Prescription Opioid Use form. - Follow up: Javier Cordon MD; When: 2 - 3 days; Reason: Recheck today's complaints, Continuance of care, Re-evaluation by your physician. - Problem is new. - Symptoms have improved. Signatures: Alyson Carson RN RN aa5 Jh Linton PA PA jr8 Maday Boudreaux RN RN Michael Orozco MD MD ma2 Corrections: (The following items were deleted from the chart) 12:37 12:02 03/18/2019 12:02 Discharged to Home. Impression: Acute bronchitis. Condition is hb Stable. Forms are Medication Reconciliation Form, Thank You Letter, Antibiotic Education, Prescription Opioid Use. Follow up: Javier Cordon; When: 2 - 3 days; Reason: Recheck today's complaints, Continuance of care, Re-evaluation by your physician. Problem is new. Symptoms have improved. jr8
--- NOTE | 2019-03-18 23:32 | ER ---
Nurse's Notes [facility] Name: Rajesh Johansen Age: 78 yrs Sex: Male : 1940 Arrival Date: 03/18/2019 Time: 10:24 Bed 6 Private MD: Javier Cordon V Diagnosis: Acute bronchitis Presentation: 03/18 10:29 Presenting complaint: Patient states: "I was just in the hospital for fluid in my lungs aa5 and I am short of breath and I have a dry cough". Pt reports taking steroid pills. Transition of care: patient was not received from another setting of care. Onset of symptoms was February 2019. Risk Assessment: Do you want to hurt yourself or someone else? Patient reports no desire to harm self or others. Initial Sepsis Screen: Does the patient meet any 2 criteria? HR > 90 bpm. Does the patient have a suspected source of infection? No. Patient's initial sepsis screen is negative. Care prior to arrival: None. 10:29 Acuity: SOHAM 3 aa5 10:29 Method Of Arrival: Wheelchair aa5 - Immunization history:: Pneumococcal vaccine is up to date, Flu vaccine is up to date. - Social history:: Smoking status: Patient/guardian denies using tobacco, but has a distant history of tobacco abuse. - Ebola Screening: : No symptoms or risks identified at this time. Assessment: 11:13 Reassessment: see paper chart. hb 12:35 Reassessment: Patient appears in no apparent distress at this time. Patient and/or hb family updated on plan of care and expected duration. Pain level reassessed. Patient is alert, oriented x 3, equal unlabored respirations, skin warm/dry/pink. Vital Signs: 10:30 BP 114 / 79; Pulse 105; Resp 20 S; Temp 97.5(O); Pulse Ox 94% on R/A; aa5 10:32 Weight 95.25 kg (R); Height 5 ft. 8 in. (172.72 cm) (R); aa5 12:30 BP 126 / 76; Pulse 89; Resp 18; Pulse Ox 100% on R/A; Pain 0/10; hb 10:32 Body Mass Index 31.93 (95.25 kg, 172.72 cm) aa5 ED Course: 10:24 Patient arrived in ED. ag5 10:24 Javier Cordon MD is Private Physician. ag5 10:29 Arm band placed on. aa5 10:30 Triage completed. aa5 10:42 Tad Cummings PA is PHCP. [facility] 10:42 Michael Orozco MD is Attending Physician. [facility] 10:43 PHCP role handed off by Tad Cummings PA jr 10:43 Jh Linton PA is PHCP. jr8 12:02 Javier Cordon MD is Referral Physician. jr8 12:35 Maday Boudreaux, RN is Primary Nurse. hb 12:36 No provider procedures requiring assistance completed. IV discontinued, intact, hb bleeding controlled, No redness/swelling at site. Pressure dressing applied. Administered Medications: No medications were administered Outcome: 12:02 Discharge ordered by . jr8 12:36 Discharged to home via wheelchair, with significant other. hb 12:36 Condition: stable 12:36 Discharge instructions given to patient, significant other, Instructed on discharge instructions, follow up and referral plans. medication usage, Demonstrated understanding of instructions, follow-up care, medications, Prescriptions given X 1. 12:37 Patient left the ED. hb Signatures: Tad Cummings PA PA jmm Calderon, Audri RN RN [facility] Jh Linton PA PA [facility] Maday Boudreaux, RN RN Monty Cooper banner
== END 2019-03-18 12:37 | disposition home or self-care (01) ==
LOC: ER 12:37
DX: J20.9 Acute bronchitis, unspecified (principal)
CPT/HCPCS: 36415; 71045; 80048; 82947; 83735; 83880; 84484; 85025; 85610; 85730; 99282

== ENCOUNTER 2019-11-12 07:49 | Day surgery (SDC) | payer OTHER ==
[2019-11-07 10:43] LABS: Absolute Lymphocytes (CBC) 0.8 K/uL (0.7-4.9); Basophils % 0.7 % (0-1.3); Hematocrit 39.9 % (39.6-49.0); Lymphocytes % 11.1 % (15.3-44.8); MPV 7.1 fL (7.6-11.3); RBC Red Blood Cell Count 4.36 M/uL (4.33-5.43)
--- NOTE | 2019-11-07 10:53 | RAD REPORT ---
EXAM DESCRIPTION: Geovany Thrasher (2 Views)11/07/2019 10:47 am CLINICAL HISTORY: Hypertension/preop COMPARISON: 2019 FINDINGS: A few areas of scarring are present within the lungs The lungs appear clear of acute infiltrate. The heart is normal size IMPRESSION: No acute abnormalities displayed
[2019-11-07 11:03] LABS: Potassium 4.5 mmol/L (3.5-5.1)
--- NOTE | 2019-11-07 11:38 | EKG ---
Test Date: 2019-11-07 Test Time: 10:18:40 Daytime Babysitter: CHARAN MEASUREMENT RESULTS: Intervals: Rate: 75 RI: 158 QRSD: 112 QT: 410 QTc: 457 [place]: P: RI: 158 QRS: -59 T: 28 INTERPRETIVE STATEMENTS: Normal sinus rhythm Left axis deviation Abnormal ECG Compared to ECG 10/23/2017 16:23:59 Atrial premature complex(es) no longer present Aberrant conduction of supraventricular beat(s) no longer present Electronically Signed On 11-07-19 11:38:17 CDT by Jay Acosta
--- OUTSIDE RECORDS SUMMARY | 2019-11-12 08:05 | XMS REPORT | Summary of Care ---
:1940 Author Organization [facility] Address [address] [place], [place] [address]- Encounter HQ Johnsonntr_kandice(FIN) [id number] Date(s): 11/03/19 - 11/03/19 [facility] [id number] [place] [id number] Discharge Disposition: Home or Self Care Attending Physician: Agnieszka Gonsales MD Referring Physician: Agnieszka Gonsales MD Vital Signs No data available for this section Problem List Condition Effective Dates Status Health Status Informant CVA (cerebral vascular 02/24/16 Resolved accident)(Confirmed)1 COPD (chronic obstructive pulmonary Active disease)(Confirmed) Diverticulitis(Confirmed) Resolved Gastric reflux(Confirmed) Active Hyperlipidemia(Confirmed) Active Hypertension(Confirmed) Active Hypothyroidism(Confirmed) Active Lumbar radiculopathy; Lumbar fusion Active non-union(Confirmed) BPH (benign prostatic Active hypertrophy)(Confirmed) Parkinson disease(Confirmed) Active Sleep apnea(Confirmed) Active 12 days after back surgery Allergies, Adverse Reactions, Alerts No Known Medication Allergies Medications No data available for this section Results No data available for this section Immunizations Given and Recorded Vaccine Date Status Refusal Reason pneumococcal 13-valent vaccine 05/07/17 Given Procedures Procedure Date Related Diagnosis Body Site Status Operation1 02/22/16 Completed Colon operation2 Completed Excision Completed Operation Completed Replacement Completed Resection of colon Completed Shoulder repair Completed 1lower back [id number] stated resection for diverticulitis Social History Social History Type Response Alcohol Past, Type Beer, Liquor. La st use: 10 years ago. Substance Abuse Use: None. Smoking Status Former smoker; Type: Cigaret shital; Exposure to Tobacco Smoke None; Cigarette Smoking Last 365 Days No; Reg Smoking Cessation Counseling No; Number of years: 28; entered on: 03/07/19 Assessment and Plan No data available for this section
--- OUTSIDE RECORDS SUMMARY | 2019-11-12 08:05 | XMS REPORT | Continuity of Care Document ---
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 1. 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, unspecified 19 [facility] K21.9 Active 04/11/19 19 [place] Dyspnea, 06/09/19 04/25/2018 OPID unspecified 18 [place] R06.00 - DYSPNEA, Active 06/01/19 OPID UNSPECIFIED 18 [place] Infection and 05/26/19 08/24/2017 Me morial inflammatory 18 [place] reaction due to other internal joint prosthesis, initial encounter Infection 05/15/19 08/13/2017 Yoni al following a 18 [place] procedure, initial encounter 11102, RIGHT Active 05/14/19 [place] SHOULDER INFECTED 18 [place] ty REVERSE S 18558- RIGHT [facility] 18 [place] TISSUE INFECT Pain in right 04/19/19 07/20/2017 [facility] morial shoulder 18 [place] Other specified 04/18/19 07/20/2017 [facility] complication of 18 [place] internal orthopedic prosthetic devices, implants and grafts, initial encounter SHOULDER PAIN Active 04/13/19 [facility] orial 18 [place] RIGHT SHOULDER Active 04/13/19 [facility] TOTAL REVISION 18 [place] Anterior 03/18/20 03/21/2017 Jade nd dislocation of 17 right humerus, initial encounter RT SHOULDER PAIN Active 03/18/20 [facility] orial 17 [place] Encounter for 01/30/20 02/01/2017 [place] other specified 17 aftercare BLEEDING INCISION Active 01/30/20 [place] morial 17 Indra R06.00 Active 01/20/[address] [address]- RIGHT Active 01/10/20 [facility] SHOULDER 17 [facility] IRREPARABLE ROTATO DC F/U REQ BY CM Active 03/23/20 [facility] REVELYEN B 16 Cerebrovascular Resolved 02/24/20 Problem 11/05/2019 2 days [facility] accident 16 after back Medical (disorder) surgery Center, Nancy,2 . 16.840.1.1 1 [id number] . 127, ARRON Burrell,[facility], M GUALBERTO Cruz,M [facility] SCI Active 02/21/20 [facility] 16 DECONDITIONED Active 02/21/20 [facility] 16 SOB, ARELLANO Active 02/10/[address] NON-UNION OF Active 01/28/20 Ethanilia odonnell PREVIOUS LUMBAR 16 Medi ofelia FUSION, FOR Center Z98.1 - Active 11/04/19 GUALBERTO ARTHRODESIS STATUS 16 [place] Hyperlipidemia, 08/13/2017 [facility] unspecified City Hypothyroidism, 08/13/2017 [facility] unspecified City Chronic 08/13/2017 Yoni al obstructive [facility] pulmonary disease, unspecified Essential 08/24/2017 Yoni buenrostro (primary) [facility] hypertension Obstructive sleep 07/20/2017 M Andrés [facility] apnea (adult) City (pediatric) Personal history 08/24/2017 [facility] nicotine [facility] dependence Acute 08/24/2017 Yoni al posthemorrhagic [facility] anemia Other 08/24/2017 Yoni al 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, right shoulder Emphysema, 08/24/2017 Selam ial unspecified City Unspecified 08/24/2017 [place] riadavid streptococcus as Cit y the cause of diseases classified elsewhere Obesity, 08/24/2017 Fla[place] al unspecified City Body mass index 08/24/2017 [facility] (BMI) 30.0-30.9, Cit y adult Primary 08/24/2017 Yoni buenrostro osteoarthritis, City right shoulder 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 without lower City urinary tract symptoms Insomnia, 08/13/2017 Yoni buenrostro unspecified City Encounter for 08/13/2017 [facility] Chronic Active Problem 11/05/2019 [facility] obstructive lung Med ical disease (disorder) C enter,[facility],2 . 840.1.1 1 3883.3.615 . 127, ARRON Burrell,[facility], [facility] Diverticulitis Resolved Problem 11/05/2019 [facility] (disorder) Medical Java,[facility],2 . 840.1.1 1 3883.3.615 . 127, [facility], GUALBERTO Burrell,[facility], [facility] Gastric reflux Active Problem 11/05/2019 [facility] (finding) [facility],2 . .840.1.1 1 3883.3.615 . 127, [facility], GUALBERTO Burrell,[facility], [facility] Hyperlipidemia Active Problem 11/05/2019 [facility] (disorder) [facility],2 . .840.1.1 1 3883.3.615 . 127, [facility], GUALBERTO Burrell,[facility], [facility] Hypertensive Active Problem 11/05/2019 Ethan as disorder, systemic [facility], (disorder) [place], 2. .840.1.1 1 3883.3.615 . 127, ARRON Burrell,[facility], [facility] Hypothyroidism Active Problem 11/05/2019 [facility] [place] [facility],2 . 16.840.1.1 1 3883.3.615 . 127, [facility], GUALBERTO Burrell,[facility], [facility] Lumbar Active Problem 11/05/2019 [facility] radiculopathy Medica l (disorder) Center,[facility],2 . 16.840.1.1 1 3883.3.615 . 127,MH [facility], GUALBERTO Burrell,[facility], [facility] Benign prostatic Active Problem 11/05/2019 [facility] hyperplasia Medical (disorder) Center,[facility],2 . 16.840.1.1 1 3883.3.615 . 127, [facility], GUALBERTO Burrell,[facility], [facility] Parkinson's Active Problem 11/05/2019 [place] disease (disorder[place] [facility],2 . 16.840.1.1 1 3883.3.615 . 127, ARRON Burrell,[facility], [facility] Sleep apnea Active Problem 11/05/2019 [place] (finding[place] Medical [place],[facility],2 . 16.840.1.1 1 3883.3.615 . 127, ARRON Burrell,[facility], [facility] Synovitis and 11/06/2018 2.16. 840.1. 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 [place] Enlarged lymph 11/20/2018 nodes, unspecified [place] Other specified 11/20/2018 diseases of liver [place] RADICULOPATHY, [place] [facility] OTHER Active [facility] BIOMECHANICAL Medica l LESIONS OF LUMBAR Ce nter RE SHORTNESS OF [facility] OTHER [place] Active [facility] INTCRAN INJ W/O Active MH T [facility] LOSS OF CONSCIOUSNESS, I ILLNESS, Active MH Memoria l UNSPECIFIED [place] DYSPNEA, Active MH [place] [facility] INFECT/INFLM Active [place] REACTION DUE TO City OTH INTERNA SOLITARY PULMONARY Active M H NODULE [place] ENLARGED LYMPH Active MH NODES, UNSPECIFIED [place] HEART FAILURE, Active MH UNSPECIFIED [place] Medications Medication Details Route Status Patient Ordering Order Source Instructions Provider Date Furosemide 20 MG Notes: (Same No Longer Oral Tablet as: Lasix) July [place] cause GI upset. Give with food or milk. Budesonide 0.5 Notes: (Same Inactive MG/ML Inhalant As: Pulmicort) 2018 [place] Solution 60 ACTUAT 2 puff, Route: No Longer tiotropium INHALATION, Active 2018 [facility] 0.87628 MG/ACTUAT Daily, Dosing Metered Dose Weight 97.3, Inhaler [Spiriva] kg, Start date: 03/09/19 9:00:00 NUTRIENT MANAGEMENT SPECIALIST, Duration: 30 day, Stop date: 04/07/19 9:00:00 NUTRIENT MANAGEMENT SPECIALIST Rasagiline 1 mg Rasagiline 1 mg No Longer tablet tablet, 1 mg / Active 2018 1 tablet, Drug form: MISC, Route: PO, Daily, 03/08/19 21:00:00 NUTRIENT MANAGEMENT SPECIALIST, Duration: 30 day, Stop date: 04/06/19 21:00:00 NUTRIENT MANAGEMENT SPECIALIST, 0 rasagiline 1 mg, Route: Inactive PO, Drug form: 2018 TAB, QPM, Dosing Weight 97.3, kg, Start date: 03/08/19 17:00:00 NUTRIENT MANAGEMENT SPECIALIST, Duration: 30 day, Stop date: 04/06/19 17:00:00 NUTRIENT MANAGEMENT SPECIALIST Flomax Notes: (Same No Longer As: Flomax) Active 2018 [facility] "Do Not Crush" Bumex Notes: (Same No Longer As: Bumex) Active 2018 Spironolactone Notes: (Same No Longer As: Aldactone) Active 2018 [facility] Albuterol 0.833 Notes: (Same No Longer H MG/ML / as: Duoneb) Active 2018 [facility] Ipratropium [place] 0.167 MG/ML Inhalant Solution CoQ10 200 mg, PO, Active Daily, 0 2018 [facility] Refill(s) Zithromax Notes: Take 1 No Longer hour before or Active 2018 [facility] 2 hours after meals. (Same As: Zithromax) Pulmicort Notes: (Same No Longer Respules As: Pulmicort) Active 2018 [facility] t Dextrose 50% 12.5 gm, 25 mL, No Longer H Syringe (D50W) Route: IVP, Active 2018 [facility] Drug Form: INJ, Dosing Weight 97.3, kg, PRN, PRN Blood Glucose Results, Start date: 03/08/19 9:15:00 NUTRIENT MANAGEMENT SPECIALIST, Duration: 30 day, Stop date: 04/07/19 9:14:00 NUTRIENT MANAGEMENT SPECIALIST, 0 Glucagon 1 mg, Route: No Longer IM, Drug form: Active 2018 [facility] PDR/INJ, PRN, Dosing Weight 97.3, kg, PRN Blood Glucose Results, Start date: 03/08/19 9:15:00 NUTRIENT MANAGEMENT SPECIALIST, Duration: 30 day, Stop date: 04/07/19 9:14:00 NUTRIENT MANAGEMENT SPECIALIST, 0 Insulin Lispro Notes: (Same No Longer as: Humalog) Active 2018 [facility] Roll in palms of hands gently; Do not shake vigorously. WASTE: F/P - Black; E - Helmedix Trash Bin Stable for 28 days at room temperature. Expires in days from D ate Advair Diskus 250 1 inhalation, Inactive mcg-50 mcg Route: INHALER, 2018 [facility] inhalation powder Drug Form: AERO, Dosing Weight 97.3, kg, RBID, Start date: 03/08/19 9:09:00 NUTRIENT MANAGEMENT SPECIALIST, Duration: 30 day, Stop date: 04/07/19 8:00:00 NUTRIENT MANAGEMENT SPECIALIST Lyrica Notes: Same as No Longer Lyrica Active 2018 [facility] Protonix Notes: Tablet No Longer should not be Active 2018 [facility] chewed or crushed. (Same as: Protonix) Thyroxine Notes: Take 1 No Longer hour before or Active 2018 [facility] 2 hours after meal; Enteral feeds may interefere with the absorption of this medication.(Gregory e as:Levothroid, Synthroid) *RN* pls bring *RN* pls bring Inactive H pt's own pt's own 2018 [facility] rasagiline to [facility] rasagiline to for label [facility] for label, attn, Drug form: MISC, Route: MISC, QSHIFT, 03/08/19 0:00:00 NUTRIENT MANAGEMENT SPECIALIST, Duration: 30 day, Stop date: 04/06/19 16:00:00 NUTRIENT MANAGEMENT SPECIALIST, 0 metoprolol Notes: (Same No Longer as: Toprol XL) Active 2018 [facility] Do Not Crush Eliquis Notes: Same as: No Longer Eliquis Active 2018 [facility] metoprolol 25 mg metoprolol 25 Inactive oral tablet, mg oral tablet, 2018 Geeta theast extended release extended release, 25 mg, Route: PO, Bedtime, 03/07/19 21:00:00 NUTRIENT MANAGEMENT SPECIALIST, Duration: 30 day, Stop date: 04/05/19 21:00:00 NUTRIENT MANAGEMENT SPECIALIST Simvastatin Notes: (Same No Longer as: Zocor) Active 2018 [facility] Requip Notes: (Same No Longer as: Requip) Active 2018 [facility] Solu-Medrol Notes: (Same No Longer as:Solu-MEDROL, [facility] Omnipaque 350 45 mL/min, Inactive injectable Start date: 2018 [facility] solution 03/07/19 21:00:00 NUTRIENT MANAGEMENT SPECIALIST, Duration: 1 doses or times Rocephin + Notes: (Same No Longer sterile water 10 As: Rocephin). Active 2018 [facility] mL Use with 100 mL NS and infuse over 30 min MEDICATION WASTE Product Size: 1000 mg Product Wasted: ___ mg Prednisone 40 mg, Route: Inactive PO, Drug form: 2019 [facility] TAB, Daily, Dosing Weight 97.3, kg, Priority: NOW, Start date: 03/07/19 19:53:00 NUTRIENT MANAGEMENT SPECIALIST, Duration: 30 day, Stop date: 04/06/19 9:00:00 NUTRIENT MANAGEMENT SPECIALIST NS 1,000 mL 1,000 mL, Rate: No Longer 75 ml/hr, Active 2018 [facility] Infuse over: 13.3 hr, Route: IV, Dosing Weight 97.3 kg, Total Volume: 1,000, Start date: 03/07/19 19:47:00 NUTRIENT MANAGEMENT SPECIALIST, Duration: 30 day, Stop date: 04/06/19 19:46:00 NUTRIENT MANAGEMENT SPECIALIST, 2.18, m2, 0 bumetanide 1 mg 1 mg = 1 tab, Active oral tablet PO, Daily, # 30 [place] tab, 0 Refill(s) spironolactone 25 25 mg = 1 tab, Active mg oral tablet PO, Daily, # 30 2019 [place] tab, 3 Refill(s) ropinirole 0.5 MG 0.5 mg = 1 tab, Active Oral Tablet PO, Bedtime, # 2019 [facility] [Requip] 30 tab, 3 Refill(s) apixaban 2.5 MG 2.5 mg, PO, Active Oral Tablet Q12H, 0 2019 [facility] [Eliquis] Refill(s) *RN* pls update *RN* pls update Inactive height, weight, height, weight, 2019 [facility] and allergy in and allergy in adh adhoc, attn, Drug form: MISC, Route: MISC, Q15Min, 03/07/19 15:45:00 NUTRIENT MANAGEMENT SPECIALIST, Duration: 30 day, Stop date: 04/06/19 15:30:00 NUTRIENT MANAGEMENT SPECIALIST, 0 Dextrose 50% 12.5 gm, 25 mL, No Longer 12/13/ H Syringe (D50W) Route: IVP, Active 2018 [facility] Drug Form: INJ, Dosing Weight 95.455, kg, PRN, PRN Blood Glucose Results, Start date: 03/07/19 14:36:00 NUTRIENT MANAGEMENT SPECIALIST, Duration: 30 day, Stop date: 04/06/19 14:35:00 NUTRIENT MANAGEMENT SPECIALIST, 0 Glucagon 1 mg, Route: No Longer 12/13/ MH IM, Drug form: Active 2018 [facility] PDR/INJ, PRN, Dosing Weight 95.455, kg, PRN Blood Glucose Results, Start date: 03/07/19 14:36:00 NUTRIENT MANAGEMENT SPECIALIST, Duration: 30 day, Stop date: 04/06/19 14:35:00 NUTRIENT MANAGEMENT SPECIALIST, 0 Docusate Notes: (Same No Longer as: Colace) (Do Active 2018 [facility] Not Crush) POLYETHYLENE Notes: Dissolve No Longer H GLYCOL 3350 in 8 oz of 2018 [facility] water or juice. (Same as: Miralax) Bisacodyl Notes: (Same No Longer As: Dulcolax, Active 2018 [facility] Bisco-Lax) Ondansetron Notes: (Same No Longer as: Zofran) Active 2018 [facility] MEDICATION WASTE Product Size: 4 mg Product Wasted: ___ mg Diphenhydramine 25 mg, 1 tab, No Longer Route: PO, Drug Active 2018 [facility] form: TAB, Q6H, Dosing Weight 95.455, kg, PRN as needed for allergy symptoms, Start date: 03/07/19 14:36:00 NUTRIENT MANAGEMENT SPECIALIST, Duration: 30 day, Stop date: 04/06/19 14:35:00 NUTRIENT MANAGEMENT SPECIALIST, 0 Melatonin Notes: (Same No Longer as: Melatonin) Active 2018 [facility] Trazodone Notes: (Same Inactive As: Desyrel) 2018 [facility] Acetaminophen Notes: Do not No Longer exceed 4 Active 2018 [facility] gm/day. (Same as: Tylenol) Seroquel Notes: (Same No Longer as: SEROquel) Active 2018 [facility] Hydralazine Notes: (Same No Longer as: Apresoline) Active 2018 [facility] Push over 5 minutes Nicotine Notes: (Same No Longer as: Habitrol) Active 2018 [facility] "Remove old patch before application of new patch" WASTE: F/P - P Waste Black; E - P Waste Black Acetaminophen 325 Notes: (Same No Longer MG / Hydrocodone as: [place] Active 2018 [facility] Bitartrate 5 MG 325/5) Do not Oral Tablet exceed 4gm/day [[place] 5/325] of acetaminophen. Morphine Notes: (Same No Longer as:MORPhine Active 2018 [facility] Sulfate) Robitussin-AC Notes: (Same No Longer oral syrup As: Robitussin Active [facility]) Tessalon Perles Notes: (Same No Longer H As: Tessalon Active 2018 [facility] Perles) "Do Not Crush" Mucinex Notes: (Same No Longer as: Guaifenesin Active 2018 [facility] [place], Humibid [place], Mucinex) "Do Not Crush" Take medication with plenty of water. Simethicone Notes: (Same No Longer as: Mylicon) Active 2018 [facility] Maalox Advanced Notes: No Longer Regular Strength (aluminum Active 2018 [facility] SUSP hydroxide-magne sium hyd-simethicone [id number]/5m l 30 ml ud IMTIAZ) Albuterol 0.833 Notes: (Same No Longer H MG/ML / as: Duoneb) Active 2018 [facility] Ipratropium [place] 0.167 MG/ML Inhalant Solution [DuoNeb] phenol Notes: No Longer Chloraseptic Active 2018 [facility] [place] (Same as: Chloraseptic, Sore Throat [place]) WASTE: F/P - Black; E - Municipal Trash Bin Artificial Tears 1 drp, Route: No Longer Each Affected 2018 [facility] Eye, QID, Drug form: SOLN, PRN Dry Eyes, Start date: 03/07/19 14:36:00 NUTRIENT MANAGEMENT SPECIALIST, Duration: 30 day, Stop date: 04/06/19 14:35:00 NUTRIENT MANAGEMENT SPECIALIST, 0 Lidocaine 0.05 Notes: Apply No Longer MG/MG Transdermal only once for Active 2018 [facility] Patch up to 12 hours in a 24-hour period (12 hours on and 12 hours off). (Same as: Lidoderm) "Remove old patch before application of new patch" Lactulose 667 Notes: (Same No Longer MG/ML Oral as:Chronulac) Active [address] [facility] [address] Solution Benzocaine 15 MG Notes: Same as: No Longer 03/07 / Menthol 3.6 MG Cepacol Active [address] [facility] [address] Serafin [Cepacol Sore Throat Pain Relief 15/3.6] Osteo Bi-Flex 0 Refill(s) Active 2019 [facility] ropinirole Notes: (Same Inactive as: Requip) 2018 [facility] tramadol 1-2 tab, PO, Active hydrochloride 50 Q6H, PRN Pain, 2019 [facility] Oral Tablet X 10 day, # 40 Ci ty tab, 0 Refill(s) celecoxib 200 MG 200 mg = 1 cap, Active Oral Capsule PO, Daily, # 30 2019 Mem [place] [Celebrex] cap, 0 City Refill(s) Acetaminophen 300 1 - 2 tab, PO, Active MG / Codeine Q6H, PRN Pain, 2019 [place] Phosphate 30 MG X 7 day, # 40 Ci ty Oral Tablet tab, 0 [Tylenol with Refill(s) Codeine #3] doxycycline 100 mg = 1 tab, Active hyclate 100 MG PO, Q12H, X 14 2019 [place] morial Oral Tablet day, # 28 tab, City 0 Refill(s) Thyroxine Notes: Take 1 Inactive hour before or 2018 [facility] 2 hours after [facility] meal; Enteral feeds may interefere with the absorption of this medication.(Gregory e as:Levothroid, Synthroid) Saline Flush 0.9% 10 ml, Route: Inactive IVP, Drug Form: 2018 [facility] INJ, Dosing [facility] Weight 95.455, kg, Q12H, Start date: 05/17/18 21:00:00 NUTRIENT MANAGEMENT SPECIALIST, Duration: 30 day, Stop date: 06/16/18 9:00:00 CDT Simvastatin Notes: (Same No Longer as: Zocor) Active 2018 [facility] Enoxaparin Notes: (Same No Longer as: Lovenox) Active 2018 [facility] Protonix Notes: Tablet No Longer should not be Active 2018 [facility] chewed or [facility] crushed. (Same as: Protonix) Cefazolin Notes: (Same No Longer As: Ancef, Active 2018 [facility] Kefzol) [facility] MEDICATION WASTE Product Size: 1000 mg Product Wasted: ___ mg Docusate Sodium Notes: (Same No Longer H 100 MG Oral as: Colace) (Do Active 2018 [place] Capsule Not Crush) [facility] Flomax Notes: (Same No Longer As: Flomax) Active 2018 [facility] "Do Not Crush" [facility] rasagiline Notes: Same as No Longer Azilect Non Active 2018 [facility] Formulary Item [facility] Lyrica Notes: (Same No Longer as: Lyrica) Active 2018 [facility] Cymbalta 60 mg, Route: Inactive PO, Drug form: 2018 [facility] DAYDAY, QPM, [facility] Dosing Weight 95.455, kg, Start date: 05/17/18 17:00:00 NUTRIENT MANAGEMENT SPECIALIST, Duration: 30 day, Stop date: 06/15/18 17:00:00 CDT Dexilant 60 mg, Route: Inactive PO, Drug form: 2018 [facility] DAYDAY, BID, [facility] Dosing Weight 95.455, kg, Start date: 05/17/18 17:00:00 NUTRIENT MANAGEMENT SPECIALIST, Duration: 30 day, Stop date: 06/16/18 9:00:00 CDT Streptococcus 0.5 mL, Route: Inactive pneumoniae IM, ONCALL, 2018 [facility] serotype 1 Start date: [facility] capsular antigen 05/17/18 diphtheria [id number] 14:39:45 NUTRIENT MANAGEMENT SPECIALIST, protein conjugate Stop date: 06/16/18 Streptococcus 14:34:45 CDT pneumoniae serotype 14 capsular antigen diphtheria [id number] protein conjugate vaccine / Streptococcus pneumoniae serotype 18C capsular antigen d glycopyrrolate Route: IV, Drug Inactive (ANES) form: INJ, 2018 [facility] ONCE, Stop [facility] date: 05/17/18 12:57:00 NUTRIENT MANAGEMENT SPECIALIST neostigmine Route: IV, Drug Inactive (ANES) form: INJ, 2018 [facility] ONCE, Stop [facility] date: 05/17/18 12:57:00 NUTRIENT MANAGEMENT SPECIALIST Sodium Chloride 25 mL, Route: No Longer 0.9% IV IV, Start date: Active 2018 [facility] 05/17/18 [facility] 12:57:00 NUTRIENT MANAGEMENT SPECIALIST, Duration: 30 day, Stop date: 06/16/18 13:56:00 CDT, PRN Line Flush BD Normal Saline Notes: (Same No Longer Flush as: BD Active 2018 [facility] Posiflush) [facility] famotidine (ANES) Route: IV, Drug Inactive 05/17 form: INJ, 2018 [facility] ONCE, Stop City date: 05/17/18 12:52:00 NUTRIENT MANAGEMENT SPECIALIST ropivacaine Notes: Final No Longer concentration: Active 2018 [facility] Ropivacaine [facility] 0.2% 400 ml Oxycodone Notes: (Same No Longer Hydrochloride 5 as: Roxicodone) Active 2018 [facility] MG Oral Tablet [facility] propofol (ANES) Route: IV, Drug Inactive form: INJ, 2018 [facility] ONCE, Stop City date: 05/17/18 12:32:00 NUTRIENT MANAGEMENT SPECIALIST fentaNYL ([facility]) Route: IV, Drug Inactive form: INJ, 2018 [facility] ONCE, Stop City date: 05/17/18 12:27:00 NUTRIENT MANAGEMENT SPECIALIST Saline Flush 0.9% 10 ml, Route: Inactive IVP, Drug Form: 2018 [facility] INJ, Dosing City Weight 95.455, kg, PRN, PRN Line Flush, Start date: 05/17/18 12:27:00 NUTRIENT MANAGEMENT SPECIALIST, Duration: 30 day, Stop date: 06/16/18 13:26:00 CDT Ondansetron Notes: (Same No Longer as: Zofran) Active 2018 [facility] MEDICATION City WASTE Product Size: 4 mg Product Wasted: ___ mg Lactated Ringers 1,000 mL, Rate: No Longer 05/17 IV 1,000 mL 125 ml/hr, Active 2018 [facility] Infuse over: 8 City hr, Route: IV, Dosing Weight 95.455 kg, Total Volume: 1,000, Start date: 05/17/18 12:27:00 NUTRIENT MANAGEMENT SPECIALIST, Duration: 30 day, Stop date: 06/16/18 12:26:00 CDT, 2.18, m2 Morphine Notes: (Same No Longer as:MORPhine Active 2018 [facility] Sulfate) [facility] Acetaminophen Notes: Do not No Longer exceed 4 Active 2018 [facility] gm/day. (Same City as: Tylenol) tranexamic acid Route: IV, Drug Inactive 05/17/ MH (ANES) 100 mg form: INJ, 2018 [facility] Start date: 05/17/18 12:00:00 NUTRIENT MANAGEMENT SPECIALIST, Stop date: 05/17/18 13:00:00 NUTRIENT MANAGEMENT SPECIALIST dexamethasone Route: IV, Drug Inactive 05/17/ M H (ANES) form: INJ, 2018 date: 05/17/18 11:01:00 NUTRIENT MANAGEMENT SPECIALIST tranexamic acid Route: IV, Drug Inactive 05/17/ MH (ANES) form: INJ, 2018 date: 05/17/18 11:01:00 NUTRIENT MANAGEMENT SPECIALIST rocuronium (ANES) Route: IV, Drug Inactive 05/17 / MH form: INJ, 2018 date: 05/17/18 11:01:00 NUTRIENT MANAGEMENT SPECIALIST ondansetron Route: IV, Drug Inactive 05/17/ MH (ANES) form: INJ, 2018 date: 05/17/18 11:01:00 NUTRIENT MANAGEMENT SPECIALIST propofol (ANES) Route: IV, Drug Inactive 05/17/ MH form: INJ, 2018 date: 05/17/18 11:01:00 NUTRIENT MANAGEMENT SPECIALIST lidocaine (ANES) Route: IV, Drug Inactive 05/17/ MH form: INJ2018 date: 05/17/18 10:56:00 NUTRIENT MANAGEMENT SPECIALIST fentaNYL (ANES) Route: IV, Drug Inactive 05/17/ MH form: INJ, 2018 date: 05/17/18 10:56:00 NUTRIENT MANAGEMENT SPECIALIST phenylephrine Route: IV, Drug Inactive 05/17/ M H (ANES) [address]49 form: INJ, 2018 [facility] Start date: 05/17/18 10:52:00 NUTRIENT MANAGEMENT SPECIALIST, Stop date: 05/17/18 11:52:00 NUTRIENT MANAGEMENT SPECIALIST phenylephrine Route: IV, Drug Inactive 05/17/ M H (ANES) form: INJ, 2018 date: 05/17/18 10:51:00 NUTRIENT MANAGEMENT SPECIALIST ceFAZolin (ANES) Route: IV, Drug Inactive 05/17/ MH form: INJ, 2018 date: 05/17/18 10:51:00 NUTRIENT MANAGEMENT SPECIALIST ePHEDrine (ANES) Route: IV, Drug Inactive 05/17/ MH form: INJ, 2018 date: 05/17/18 10:51:00 NUTRIENT MANAGEMENT SPECIALIST Ondansetron Notes: (Same Inactive as: Zofran) 2019 [facility] MEDICATION City WASTE Product Size: 4 mg Product Wasted: ___ mg Flumazenil Notes: (Same Inactive as: Romazicon) 2018 [facility] Naloxone Notes: Same as Inactive Narcan 2018 [facility] Ketorolac 4 days Inactive MEDICATION 2019 [facility] WASTE City Product Size: 30 mg Product Wasted: ___ mg Acetaminophen Notes: Max Inactive acetaminophen 2019 [facility] 4000 mg/day (4 City gm/day). (Same as: Tylenol Extra Strength) Labetalol Notes: (Same Inactive as: Normodyne, 2018 [facility] Trandate) Push City over 2 minutes Give bolus over 2-3 minutes. Morphine Notes: (Same Inactive as:MORPhine 2019 [facility] Sulfate) [facility] Hydralazine Notes: (Same Inactive as: Apresoline) 2018 [facility] Push over 5 City minutes Lactated Ringers Route: IV, Inactive Injection IV Total Volume: 2018 [facility] (ANES) 1000 mL 1,000, Start City date: 05/17/18 9:51:00 NUTRIENT MANAGEMENT SPECIALIST, Stop date: 05/17/18 10:51:00 NUTRIENT MANAGEMENT SPECIALIST ceFAZolin + Notes: (Same No Longer sterile water 20 As: Ancef, Active 2018 [place] [facility] mL Kefzol) City MEDICATION WASTE Product Size: 1000 mg Product Wasted: ___ mg Trazodone 100 mg = 1 tab, Active Hydrochloride 100 PO, Bedtime, 0 2018 [facility] MG Oral Tablet Refill(s) [facility] dexlansoprazole 60 mg = 1 cap, Active H 60 MG Enteric PO, BID, 0 2018 [facility] Coated Capsule Refill(s) [facility] [Dexilant] rOPINIRole 0.5 mg 0.5 mg = 1 tab, Active oral tablet PO, Daily, 0 2018 [facility] Refill(s) [facility] pregabalin 100 MG 100 mg = 1 cap, Active Oral Capsule PO, BID, # 60 2018 [facility] [Lyrica] cap, 1 Refill(s) Sodium Chloride 1,000 mL, Rate: Inactive 0.9% IV 1,000 mL 25 ml/hr, 2018 [facility] Infuse over: 40 hr, Route: IV, Dosing Weight 94.545 kg, Total Volume: 1,000, Start date: 05/06/18 2:37:00 NUTRIENT MANAGEMENT SPECIALIST, Duration: 30 day, Stop date: 06/05/18 2:36:00 CDT, 2.17, m2 Omnipaque 300 Notes: (Same No Longer injectable as:Omnipaque Active 2018 [facility] t solution 300). WASTE: F/P - Black; E - [employer] [facility] meropenem 1000 MG 1,000 mg, IV, No Longer Injection Q12H, X 35 day, Active 2018 [facility] [Merrem] # 70 bag, 0 City Refill(s), other vancomycin 1 g 1 gm, IV, Q12H, No Longer intravenous X 35 day, # 70 Active 2018 [facility] injection bag, 0 City Refill(s), other budesonide-formot Notes: (Same No Longer franky as: Symbicort) Active [address] [place] [address] WASTE: Aerosol City - Return to Pharmacy rasagiline Notes: Same as No Longer Azilect Non Active [address] [place] [address] Formulary Item City Cymbalta Notes: (Same No Longer as: Cymbalta) Active [address] [place] [address] (Do Not Crush) [facility] Flomax Notes: (Same No Longer As: Flomax) [address] "Do Not Crush" [facility] Cathflo Activase Notes: "Syringe No Longer 05/16 2 mg injection for catheter Active [address] [place], [place] [address]o rial clearance or [facility] interventional radiology use. Reconstitute each vial of Cathflo Activase with 2.2 ml Sterile Water resulting in a 1 mg/ml solution. (Same as: Activase) MEDICATION WASTE Product Size: 2 mg Product Wasted: ___ mg Protonix Notes: Tablet No Longer should not be Active [address] [place] [address] chewed or City crushed. (Same as: Protonix) Oxycodone Notes: (Same No Longer Hydrochloride 5 as: Roxicodone) Active 2017 [facility] MG Oral Tablet [facility] 24 HR Metoprolol Notes: (Same No Longer Tartrate 25 MG as: Toprol XL) Active 2017 [facility] Extended Release Do Not Crush Ci ty Tablet [Toprol] Dulera 200 mcg-5 2 puff, Route: No Longer mcg/inh INHALER, Drug Active 2017 [facility] inhalation Form: AERO, [facility] aerosol Dosing Weight 94.545, kg, BID, Start date: 05/16/17 9:00:00 NUTRIENT MANAGEMENT SPECIALIST, Duration: 30 day, Stop date: 06/14/17 17:00:00 CDT Nexium 40 mg, Route: No Longer PO, Drug form: Active 2017 [facility] ECCAP, BID, [facility] Dosing Weight 94.545, kg, Start date: 05/16/17 9:00:00 NUTRIENT MANAGEMENT SPECIALIST, Duration: 30 day, Stop date: 06/14/17 17:00:00 CDT albuterol 90 Route: PO, Drug Inactive mcg/inh Form: AERO/A, 2017 [facility] inhalation Dosing Weight [facility] aerosol 94.545, kg, BID, Start date: 05/16/17 9:00:00 NUTRIENT MANAGEMENT SPECIALIST, Duration: 30 day, Stop date: 06/14/17 17:00:00 CDT Docusate Sodium Notes: (Same No Longer H 100 MG Oral as: Colace) (Do Active 2017 [place] [facility] Capsule [Colace] Not Crush) [facility] Thyroxine Notes: Take 1 No Longer hour before or Active 2017 [facility] 2 hours after [facility] meal; Enteral feeds may interefere with the absorption of this medication.(Gregory e as:Levothroid, Synthroid) albuterol Notes: SEE RT No Longer DOCUMENTATION Active 2017 [facility] (Same as: [facility] Proventil) Melatonin 10 mg, Route: Inactive PO, Drug form: 2017 [facility] CAP, Bedtime, [facility] Dosing Weight 94.545, kg, Start date: 05/15/17 21:00:00 NUTRIENT MANAGEMENT SPECIALIST, Duration: 30 day, Stop date: 06/13/17 21:00:00 CDT melatonin Notes: (Same No Longer as: Melatonin) Active 2017 [facility] Simvastatin Notes: (Same No Longer as: Zocor) Active 2017 [facility] heparin Notes: porcine No Longer heparin Active 2017 [facility] meropenem Notes: (Same No Longer as: Merrem) . Active 2017 [facility] MEDICATION City WASTE Product Size: 1000 mg Product Wasted: ___ mg Clonidine Notes: (Same No Longer Hydrochloride 0.1 As: Catapres) Active 2017 [facility] MG Oral Tablet [facility] Vasotec Notes: (Same No Longer as: Vasotec-IV) Active 2017 [facility] Potassium Notes: (Same No Longer Chloride as: K-Dur ) Active 2017 [facility] "Do Not Crush" [facility] With food and full glass of water Albuterol 0.83 Notes: SEE RT No Longer H MG/ML Inhalant DOCUMENTATION Active 2017 [facility] orial Solution (Same as: [facility] Proventil) lactobacillus 1 tab, Route: No Longer acidophilus PO, Drug Form: Active 2017 [facility] TAB, Dosing [facility] Weight 94.545, kg, BID, Start date: 05/15/17 17:26:00 NUTRIENT MANAGEMENT SPECIALIST, Duration: 30 day, Stop date: 06/14/17 17:00:00 CDT Vancomycin 2001 mg: No Longer infuse over 2.5 Active 2017 [facility] hours For [facility] adult patients only: Round to nearest 250 mg per Medical Staff approval MEDICATION WASTE Product Size: 1000 mg Product Wasted: ___ mg Ceftriaxone Notes: (Same Inactive As: Rocephin). 2018 [facility] Use with 100 mL [facility] NS and infuse over 30 min MEDICATION WASTE Product Size: 1000 mg Product Wasted: ___ mg Acetaminophen Notes: Do not No Longer exceed 4 Active 2017 [facility] gm/day. (Same City as: Tylenol) ondansetron Route: IV, Drug Inactive (ANES) form: INJ, 2017 [facility] ONCE, Stop [facility] date: 05/15/17 8:52:00 NUTRIENT MANAGEMENT SPECIALIST glycopyrrolate Route: IV, Drug Inactive 02/20/ MH (ANES) form: INJ, 2017 [facility] ONCE, Stop City date: 05/15/17 8:52:00 NUTRIENT MANAGEMENT SPECIALIST neostigmine Route: IV, Drug Inactive MH (ANES) form: INJ, 2017 [facility] ONCE, Stop date: 05/15/17 8:52:00 NUTRIENT MANAGEMENT SPECIALIST famotidine (ANES) Route: IV, Drug Inactive 05/15 form: INJ, 2017 [facility] ONCE, Stop date: 05/15/17 8:52:00 NUTRIENT MANAGEMENT SPECIALIST Morphine Notes: (Same No Longer as:MORPhine Active 2017 [facility] Sulfate) [facility] ePHEDrine (ANES) Route: IV, Drug Inactive form: INJ, 2017 [facility] ONCE, date: 05/15/17 8:39:00 NUTRIENT MANAGEMENT SPECIALIST phenylephrine Route: IV, Drug Inactive 05/15/ M H (ANES) form: INJ, 2017 [facility] ONCE, date: 05/15/17 8:34:00 NUTRIENT MANAGEMENT SPECIALIST rocuronium (ANES) Route: IV, Drug Inactive 05/15 MH form: INJ, 2017 [facility] ONCE, Stop date: 05/15/17 8:29:00 NUTRIENT MANAGEMENT SPECIALIST ceFAZolin (ANES) Route: IV, Drug Inactive form: INJ, 2017 [facility] ONCE, date: 05/15/17 8:29:00 NUTRIENT MANAGEMENT SPECIALIST propofol (ANES) Route: IV, Drug Inactive form: INJ, 2017 [facility] ONCE, date: 05/15/17 8:24:00 NUTRIENT MANAGEMENT SPECIALIST succinylcholine Route: IV, Drug Inactive MH (ANES) form: INJ, 2017 [facility] ONCE, Stop date: 05/15/17 8:24:00 NUTRIENT MANAGEMENT SPECIALIST Promethazine 6.25 mg, Route: Inactive IVPB, ONCE, 2017 [facility] Dosing Weight [facility] 95.455, kg, PRN Nausea & Vomiting, Start date: 05/15/17 8:22:00 NUTRIENT MANAGEMENT SPECIALIST Ondansetron 4 mg, Route: Inactive IVP, ONCE, 2017 [facility] Dosing Weight [facility] 95.455, kg, PRN Nausea & Vomiting, Start date: 05/15/17 8:22:00 NUTRIENT MANAGEMENT SPECIALIST Meperidine 12.5 mg, Route: Inactive IVP, Q30Min, 2018 [facility] Weight [facility] 95.455, kg, PRN Other -See Comment, For shivering, Start date: 05/15/17 8:22:00 NUTRIENT MANAGEMENT SPECIALIST, Duration: 2 doses or times, Stop date: Limited # of times Albuterol 0.83 2.49 mg, Route: Inactive MG/ML Inhalant NEB, Q20Min, 2018 [place] [facility] Solution Dosing Weight [facility] 95.455, kg, PRN Wheezing, Priority: STAT, Start date: 05/15/17 8:22:00 NUTRIENT MANAGEMENT SPECIALIST, Duration: 30 day, Stop date: 06/14/17 9:21:00 CDT Flumazenil 0.2 mg, Route: Inactive 05/15[facility] IVP, PRN, 2017 [facility] 95.455, kg, PRN Benzodiazepine Reversal, Initial dose, Start date: 05/15/17 8:22:00 NUTRIENT MANAGEMENT SPECIALIST, Duration: 30 day, Stop date: 06/14/17 9:21:00 CDT Morphine 2 mg, Route: Inactive IVP, Q5Min, 2017 [facility] 95.455, kg, PRN Pain Score 4-6, Start date: 05/15/17 8:22:00 NUTRIENT MANAGEMENT SPECIALIST, Duration: 5 doses or times, Stop date: Limited # of times Hydromorphone 0.5 mg, Route: Inactive IVP, Q5Min, 2017 [facility] 95.455, kg, PRN Pain Score 7-10, Start date: 05/15/17 8:22:00 NUTRIENT MANAGEMENT SPECIALIST, Duration: 4 doses or times, Stop date: Limited # of times Naloxone 0.4 mg, Route: Inactive IVP, Q2MIN, 2017 [facility] Weight [facility] 95.455, kg, PRN Narcotic Reversal, Start date: 05/15/17 8:22:00 NUTRIENT MANAGEMENT SPECIALIST, Duration: 8 doses or times, Stop date: Limited # of times Labetalol 10 mg, Route: Inactive IVP, Q5Min, 2017 [facility] Weight [facility] 95.455, kg, PRN Elevated BP, Start date: 05/15/17 8:22:00 NUTRIENT MANAGEMENT SPECIALIST, Duration: 5 doses or times, Stop date: Limited # of times lidocaine (ANES) Route: IV, Drug Inactive form: INJ, 2017 [facility] ONCE, Stop [facility] date: 05/15/17 8:19:00 NUTRIENT MANAGEMENT SPECIALIST fentaNYL (ANES) Route: IV, Drug Inactive form: INJ, 2017 [facility] ONCE, Stop City date: 05/15/17 8:19:00 NUTRIENT MANAGEMENT SPECIALIST acetaminophen Route: IV, Drug Inactive H (ANES) 10 mg form: INJ, 2017 [facility] Start date: 05/15/17 8:14:00 NUTRIENT MANAGEMENT SPECIALIST, Stop date: 05/15/17 9:14:00 NUTRIENT MANAGEMENT SPECIALIST Lactated Ringers Route: IV, Inactive Injection IV Total Volume: 2017 [facility] (ANES) 1000 mL 1,000, Start [facility] date: 05/15/17 7:14:00 NUTRIENT MANAGEMENT SPECIALIST, Stop date: 05/15/17 8:14:00 NUTRIENT MANAGEMENT SPECIALIST ceFAZolin + Notes: (Same No Longer sterile water 20 As: Ancef, Active 2017 [place] [facility] mL Kefzol) [facility] MEDICATION WASTE Product Size: 1000 mg Product Wasted: ___ mg Ceftriaxone 1000 2 gm, IV, No Longer MG Injection Daily, X 14 Active 2017 [facility] [Rocephin] day, # 14 bag, [facility] 0 Refill(s), other vancomycin 1 g 1 gm, IV, Q12H, No Longer intravenous X 14 day, # 28 Active 2017 [facility] injection bag, 0 [facility] Refill(s), other Ceftriaxone Notes: (Same No Longer As: Rocephin). Active 2017 [facility] Use with 100 mL [facility] NS and infuse over 30 min MEDICATION WASTE Product Size: 1000 mg Product Wasted: ___ mg 24 HR Metoprolol Notes: (Same No Longer Tartrate 25 MG as: Toprol XL) Active 2017 [facility] Extended Release Do Not Crush Ci ty Tablet [Toprol] Dulera 200 mcg-5 2 puff, Route: Inactive mcg/inh INHALER, Drug 2017 [facility] inhalation Form: AERO, SCL aerosol Dosing Weight 103.4, kg, BID, Start date: 05/04/17 9:00:00 NUTRIENT MANAGEMENT SPECIALIST, Duration: 30 day, Stop date: 06/02/17 17:00:00 NUTRIENT MANAGEMENT SPECIALIST Clonidine Notes: (Same No Longer Hydrochloride 0.1 As: Catapres) Active 2018 [facility] MG Oral Tablet [facility] Vasotec Notes: (Same No Longer as: Vasotec-IV) Active 2018 [facility] cetirizine Notes: (Same No Longer As: Zyrtec) Active 2018 [facility] Fluticasone 2 spray, Route: No Longer propionate 0.05 Each Affected Active 2017 [facility] MG/ACTUAT Metered Nostril, Drug [facility] Dose Nasal [place] Form: SPRY, [Flonase] Dosing Weight 103.4, kg, Daily, Start date: 05/03/17 11:01:00 NUTRIENT MANAGEMENT SPECIALIST, Duration: 30 day, Stop date: 06/02/17 9:00:00 NUTRIENT MANAGEMENT SPECIALIST Loratadine 10 mg, Route: Inactive PO, Drug form: 2018 [facility] TAB, Daily, [facility] Dosing Weight 103.4, kg, Start date: 05/03/17 9:00:00 NUTRIENT MANAGEMENT SPECIALIST, Duration: 30 day, Stop date: 06/01/17 9:00:00 NUTRIENT MANAGEMENT SPECIALIST, .. lactobacillus 1 tab, Route: No Longer acidophilus PO, Drug Form: Active 2017 [facility] TAB, Dosing [facility] Weight 95.455, kg, BID, Start date: 05/02/17 9:00:00 NUTRIENT MANAGEMENT SPECIALIST, Duration: 30 day, Stop date: 05/31/17 17:00:00 NUTRIENT MANAGEMENT SPECIALIST INCRUSE Ellipta INCRUSE Ellipta No Longer 62.5mcg 62.5mcg Active 2018 [facility] inhalation powder inhalation Cit y powder, 1 inhalation (Pt's own med), Drug form: MISC, Route: INHALER, RDaily, 05/02/17 8:00:00 NUTRIENT MANAGEMENT SPECIALIST, Duration: 30 day, Stop date: 05/31/17 8:00:00 NUTRIENT MANAGEMENT SPECIALIST Incruse Ellipta 62.5 microgram, Active 62.5 mcg INHALATION, 2018 [facility] inhalation powder Daily, 0 [facility] Refill(s) Dulera 200 mcg-5 2 puff, Active mcg/inh INHALER, BID, # 2018 [facility] inhalation 1 ea City aerosol Thyroxine Notes: Take 1 No Longer hour before or Active 2017 [facility] 2 hours after [facility] meal; Enteral feeds may interefere with the absorption of this medication.([facility] e as:Levothroid, Synthroid) heparin Notes: porcine No Longer heparin Active 2017 [facility] Simvastatin Notes: (Same No Longer as: Zocor) Active 2017 [facility] Melatonin Notes: (Same No Longer as: Melatonin) Active 2017 [facility] 200 ACTUAT Notes: SEE RT No Longer Albuterol 0.09 DOCUMENTATION Active 2017 [facility] orial MG/ACTUAT Metered (Same as: [facility] Dose Inhaler Proventil) [ProAir HFA] DULERA DULERA No Longer 200mcg/5mcg per 200mcg/5mcg per 2017 [facility] actuation INHALER actuation [facility] INHALER, 2 puffs (Pt's own med), Drug form: MISC, Route: INHALER, RBID, 05/01/17 20:00:00 NUTRIENT MANAGEMENT SPECIALIST, Duration: 30 day, Stop date: 05/31/17 8:00:00 NUTRIENT MANAGEMENT SPECIALIST cefepime Notes: (Same No Longer As: Maxipime) [address] [place] [address] MEDICATION [facility] WASTE Product Size: 1000 mg Product Wasted: ___ mg Vancomycin 2001 mg: No Longer infuse over 2.5 Active 2017 [facility] hours For [facility] adult patients only: Round to nearest 250 mg per Medical Staff approval MEDICATION WASTE Product Size: 1000 mg Product Wasted: ___ mg Acetaminophen Notes: Do not No Longer exceed 4 Active 2017 [facility] gm/day. (Same City as: Tylenol) Protonix 40 mg, 1 tab, No Longer Route: PO, Drug Active 2017 [facility] form: ECTAB, [facility] BID-Before Meals, Start date: 05/01/17 18:00:00 NUTRIENT MANAGEMENT SPECIALIST, Duration: 30 day, Stop date: 05/31/17 16:30:00 NUTRIENT MANAGEMENT SPECIALIST Flomax Notes: (Same No Longer As: Flomax) [address] "Do Not Crush" [facility] rasagiline Notes: Same as No Longer Azilect Non Active 2017 [facility] Formulary Item [facility] Cymbalta 60 mg, 2 cap, No Longer Route: PO, Drug Active 2017 [facility] form: DRC, QPM, [facility] Dosing Weight 95.455, kg, Start date: 05/01/17 17:17:00 NUTRIENT MANAGEMENT SPECIALIST, Duration: 30 day, Stop date: 05/31/17 17:00:00 NUTRIENT MANAGEMENT SPECIALIST Nexium 40 mg, Route: Inactive PO, Drug form: 2017 [facility] ECCAP, BID, [facility] Dosing Weight 95.455, kg, Start date: 05/01/17 17:00:00 NUTRIENT MANAGEMENT SPECIALIST, Duration: 30 day, Stop date: 05/31/17 9:00:00 NUTRIENT MANAGEMENT SPECIALIST Docusate Sodium 100 mg, 1 cap, No Longer 100 MG Oral Route: PO, Drug Active 2017 [place] [facility] Capsule form: CAP, BID, [facility] Dosing Weight 95.455, kg, Start date: 05/01/17 17:00:00 NUTRIENT MANAGEMENT SPECIALIST, Duration: 30 day, Stop date: 05/31/17 9:00:00 NUTRIENT MANAGEMENT SPECIALIST Asmanex HFA Asmanex HFA, Inactive See 2017 [facility] Route: INHALATION, BID, 05/01/17 17:00:00 NUTRIENT MANAGEMENT SPECIALIST, Duration: 30 day, Stop date: 05/31/17 9:00:00 NUTRIENT MANAGEMENT SPECIALIST Levofloxacin Notes: (Same Inactive as:Levaquin) 2017 [facility] Albuterol 0.83 Notes: SEE RT No Longer 05/01/ H MG/ML Inhalant DOCUMENTATION Active 2017 [facility] orial Solution (Same as: [facility] Proventil) BD Normal Saline Notes: (Same No Longer Flush as: BD Active 2017 [facility] Posiflush) [facility] neostigmine Route: IV, Drug Inactive (ANES) form: INJ, 2017 [facility] ONCE, Stop [facility] date: 05/01/17 10:14:00 NUTRIENT MANAGEMENT SPECIALIST glycopyrrolate Route: IV, Drug Inactive (ANES) form: INJ, 2017 [facility] ONCE, Stop [facility] date: 05/01/17 10:14:00 NUTRIENT MANAGEMENT SPECIALIST dexamethasone Route: IV, Drug Inactive 05/01/ M H (ANES) form: INJ, 2017 [facility] ONCE, Stop [facility] date: 05/01/17 10:14:00 NUTRIENT MANAGEMENT SPECIALIST famotidine (ANES) Route: IV, Drug Inactive 05/01 MH form: INJ, 2017 [facility] ONCE, date: 05/01/17 10:14:00 NUTRIENT MANAGEMENT SPECIALIST ondansetron Route: IV, Drug Inactive 05/01/ MH (ANES) form: INJ, 2017 ONCE, date: 05/01/17 10:14:00 NUTRIENT MANAGEMENT SPECIALIST phenylephrine Route: IV, Drug Inactive 05/01/ M H (ANES) form: INJ, 2017, date: 05/01/17 10:11:00 NUTRIENT MANAGEMENT SPECIALIST ePHEDrine (ANES) Route: IV, Drug Inactive 05/01/ MH form: INJ, 2017 [facility] , date: 05/01/17 10:06:00 NUTRIENT MANAGEMENT SPECIALIST rocuronium (ANES) Route: IV, Drug Inactive 05/01 / MH form: INJ, 2017 ONCE, date: 05/01/17 10:01:00 NUTRIENT MANAGEMENT SPECIALIST fentaNYL (ANES) Route: IV, Drug Inactive 05/01/ MH form: INJ, 2017, date: 05/01/17 10:01:00 NUTRIENT MANAGEMENT SPECIALIST propofol (ANES) Route: IV, Drug Inactive 05/01/ MH form: INJ, 2017 [facility] , date: 05/01/17 10:01:00 NUTRIENT MANAGEMENT SPECIALIST lidocaine (ANES) Route: IV, Drug Inactive 05/01/ MH form: INJ, 2017 [facility] ONCE, date: 05/01/17 10:01:00 NUTRIENT MANAGEMENT SPECIALIST succinylcholine Route: IV, Drug Inactive 05/01/ MH (ANES) form: INJ, 2017 [facility] , date: 05/01/17 10:01:00 NUTRIENT MANAGEMENT SPECIALIST Oxycodone Notes: (Same No Longer Hydrochloride 5 as: Roxicodone) Active 2017 [facility] MG Oral Tablet [facility] Morphine Notes: (Same No Longer as:MORPhine Active 2017 [facility] Sulfate) [facility] Ondansetron Notes: (Same No Longer as: Zofran) 2017 [facility] MEDICATION [facility] WASTE Product Size: 4 mg Product Wasted: ___ mg Lactated Ringers 1,000 mL, Rate: No Longer 05/01 IV 1,000 mL 100 ml/hr, Active 2017 [facility] Infuse over: 10 City hr, Route: IV, Dosing Weight 95.455 kg, Total Volume: 1,000, Start date: 05/01/17 9:53:00 NUTRIENT MANAGEMENT SPECIALIST, Duration: 30 day, Stop date: 05/31/17 9:52:00 NUTRIENT MANAGEMENT SPECIALIST, 2.18, m2 acetaminophen Route: IV, Drug Inactive H (ANES) 10 mg form: INJ, 2017 [facility] Start date: [facility] 05/01/17 9:52:00 NUTRIENT MANAGEMENT SPECIALIST, Stop date: 05/01/17 10:52:00 NUTRIENT MANAGEMENT SPECIALIST ceFAZolin (ANES) Route: IV, Drug Inactive 2000 mg form: INJ, 2017 [facility] Start date: [facility] 05/01/17 9:21:00 NUTRIENT MANAGEMENT SPECIALIST, Stop date: 05/01/17 10:21:00 NUTRIENT MANAGEMENT SPECIALIST phenylephrine Route: IV, Drug Inactive H (ANES) 100 form: INJ, 2017 [facility] microgram Start date: [facility] 05/01/17 8:55:00 NUTRIENT MANAGEMENT SPECIALIST, Stop date: 05/01/17 9:55:00 NUTRIENT MANAGEMENT SPECIALIST Lactated Ringers Route: IV, Inactive Injection [facility] mL 1,000, Start City date: 05/01/17 8:38:00 NUTRIENT MANAGEMENT SPECIALIST, Stop date: 05/01/17 9:38:00 NUTRIENT MANAGEMENT SPECIALIST ceFAZolin + Notes: (Same Inactive sterile water 20 As: Eduard, 2017 [place] [facility] mL Kefzol) City MEDICATION WASTE Product Size: 1000 mg Product Wasted: ___ mg neostigmine Route: IV, Drug Inactive (ANES) form: INJ, 2017 [facility] ONCE, Stop City date: 04/13/17 15:55:00 NUTRIENT MANAGEMENT SPECIALIST ondansetron Route: IV, Drug Inactive (ANES) form: [id number] [facility] ONCE, Stop [place] date: 04/13/17 15:55:00 NUTRIENT MANAGEMENT SPECIALIST phenylephrine Route: IV, Drug Inactive H (ANES) form: INJ, 2017 [facility] , Stop [place] date: 04/13/17 15:55:00 NUTRIENT MANAGEMENT SPECIALIST glycopyrrolate Route: IV, Drug Inactive (ANES) form: [id number] [facility] ONCE, Stop [place] date: 04/13/17 15:55:00 NUTRIENT MANAGEMENT SPECIALIST metoprolol (ANES) Route: IV, Drug Inactive 04/13 form: INJ, 2017 date: 04/13/17 15:36:00 NUTRIENT MANAGEMENT SPECIALIST ePHEDrine (ANES) Route: IV, Drug Inactive form: INJ, 2017, Stop date: 04/13/17 15:36:00 NUTRIENT MANAGEMENT SPECIALIST Acetaminophen 325 650 mg = 2 tab, No Longer 03/26 9/ [facility] MG Oral Tablet PO, Q4H, PRN Active 2017 [place] [Tylenol] Pain, X 10 day, City # 120 tab, 0 Refill(s), other Ketorolac 10 mg = 1 tab, No Longer Tromethamine 10 PO, Q8H, X 3 Active 2017 [facility] MG Oral Tablet day, # 9 tab, 0 [place] Refill(s), Pharmacy: [facility] rocuronium (ANES) Route: IV, Drug Inactive 04/13 form: , 2017 date: 04/13/17 15:26:00 NUTRIENT MANAGEMENT SPECIALIST phenylephrine Route: IV, Drug Inactive 04/13/ M H (ANES) form: [id number], date: 04/13/17 15:26:00 NUTRIENT MANAGEMENT SPECIALIST ePHEDrine (ANES) Route: IV, Drug Inactive form: [id number], date: 04/13/17 15:26:00 NUTRIENT MANAGEMENT SPECIALIST dexamethasone Route: IV, Drug Inactive 04/13/ M H (ANES) form: 2017, date: 04/13/17 15:26:00 NUTRIENT MANAGEMENT SPECIALIST famotidine (ANES) Route: IV, Drug Inactive 04/13 form: 2017, date: 04/13/17 15:26:00 NUTRIENT MANAGEMENT SPECIALIST propofol (ANES) Route: IV, Drug Inactive form: [id number] date: 04/13/17 15:21:00 NUTRIENT MANAGEMENT SPECIALIST lidocaine (ANES) Route: IV, Drug Inactive form: [id number], date: 04/13/17 15:21:00 NUTRIENT MANAGEMENT SPECIALIST ceFAZolin (ANES) Route: IV, Drug Inactive form: INJ, 2018 [facility] ONCE, Stop [facility] date: 04/13/17 15:16:00 NUTRIENT MANAGEMENT SPECIALIST Ondansetron 4 mg, Route: Inactive IVP, ONCE, 2017 [facility] Dosing Weight [facility] 93.182, kg, PRN Nausea & Vomiting, Start date: 04/13/17 15:04:00 NUTRIENT MANAGEMENT SPECIALIST Albuterol 0.83 2.49 mg, Route: Inactive MG/ML Inhalant NEB, Q20Min, 2018 [place] Solution Dosing Weight [facility] 93.182, kg, PRN Wheezing, Priority: STAT, Start date: 04/13/17 15:04:00 NUTRIENT MANAGEMENT SPECIALIST, Duration: 30 day, Stop date: 05/13/17 15:03:00 NUTRIENT MANAGEMENT SPECIALIST Metoprolol 1 mg, Route: Inactive IVP, Q5Min, 2017 [facility] Dosing Weight [facility] 93.182, kg, PRN Other -See Comment, Start date: 04/13/17 15:04:00 NUTRIENT MANAGEMENT SPECIALIST, Duration: 5 doses or times, Stop date: Limited # of times Morphine 2 mg, Route: Inactive IVP, Q5Min, 2017 [facility] Dosing Weight [facility] 93.182, kg, PRN Pain Score 4-6, Start date: 04/13/17 15:04:00 NUTRIENT MANAGEMENT SPECIALIST, Duration: 5 doses or times, Stop date: Limited # of times Acetaminophen 1,000 mg, Inactive Route: PO, Drug 2017 [facility] form: TAB, [facility] ONCE, Dosing Weight 93.182, kg, PRN Pain Score 1-3, Start date: 04/13/17 15:04:00 NUTRIENT MANAGEMENT SPECIALIST Flumazenil 0.2 mg, Route: Inactive IVP, PRN, 2017 [facility] Dosing Weight [facility] 93.182, kg, PRN Benzodiazepine Reversal, Initial dose, Start date: 04/13/17 15:04:00 NUTRIENT MANAGEMENT SPECIALIST, Duration: 30 day, Stop date: 05/13/17 15:03:00 NUTRIENT MANAGEMENT SPECIALIST Naloxone 0.4 mg, Route: Inactive IVP, Q2MIN, 2017 [facility] Dosing Weight [facility] 93.182, kg, PRN Narcotic Reversal, Start date: 04/13/17 15:04:00 NUTRIENT MANAGEMENT SPECIALIST, Duration: 8 doses or times, Stop date: Limited # of times Hydromorphone 0.5 mg, Route: Inactive IVP, Q5Min, 2017 [facility] Dosing Weight [facility] 93.182, kg, PRN Pain Score 7-10, Start date: 04/13/17 15:04:00 NUTRIENT MANAGEMENT SPECIALIST, Duration: 4 doses or times, Stop date: Limited # of times Calcium Chloride 1,000 mL, Rate: Inactive 0.0014 MEQ/ML / 125 ml/hr, 2017 [facility] Potassium Infuse over: 8 [facility] Chloride 0.004 hr, Route: IV, MEQ/ML / Sodium Dosing Weight Chloride 0.103 93.182 kg, MEQ/ML / Sodium Total Volume: Lactate 0.028 1,000, Start MEQ/ML Injectable date: 04/13/17 Solution 15:04:00 NUTRIENT MANAGEMENT SPECIALIST, Duration: 30 day, Stop date: 05/13/17 15:03:00 NUTRIENT MANAGEMENT SPECIALIST, 2.15, m2 fentaNYL (ANES) Route: IV, Drug Inactive form: INJ, 2017 [facility] , Stop [place] date: 04/13/17 15:01:00 NUTRIENT MANAGEMENT SPECIALIST midazolam (ANES) Route: IV, Drug Inactive form: SOLN, 2017 [facility] , Stop [place] date: 04/13/17 15:01:00 NUTRIENT MANAGEMENT SPECIALIST acetaminophen Route: IV, Drug Inactive H (ANES) 10 mg form: INJ, 2017 [facility] Start date: [facility] 04/13/17 14:45:00 NUTRIENT MANAGEMENT SPECIALIST, Stop date: 04/13/17 15:45:00 NUTRIENT MANAGEMENT SPECIALIST Lactated Ringers Route: IV, Inactive Injection IV Total Volume: 2017 [facility] (ANES) 1000 mL 1,000, Start City date: 04/13/17 14:17:00 NUTRIENT MANAGEMENT SPECIALIST, Stop date: 04/13/17 15:17:00 NUTRIENT MANAGEMENT SPECIALIST Ropivacaine Notes: (Same No Longer hydrochloride 7.5 as: Naropin) Active [facility] MG/ML Injectable [place] Solution Acetaminophen 300 1 - 2 tab, PO, Active MG / Codeine Q4H, PRN Pain, 2016 [place] Phosphate 30 MG X 2 day, # 20 Oral Tablet tab, 0 [Tylenol with Refill(s) Codeine #3] Propofol 70 mg, Route: Inactive IV, ONCE, 2016 [place] Dosing Weight 95.5, kg, Start date: 03/18/17 20:32:00 NUTRIENT MANAGEMENT SPECIALIST, Stop date: 03/18/17 20:32:00 NUTRIENT MANAGEMENT SPECIALIST Propofol 95.5 mg, Route: Inactive IVP, ONCE, 2016 [place] Dosing Weight 95.5, kg, Priority: STAT, Start date: 03/18/17 20:06:00 NUTRIENT MANAGEMENT SPECIALIST, Stop date: 03/18/17 20:06:00 NUTRIENT MANAGEMENT SPECIALIST Zofran Notes: (Same Inactive as: Zofran) 2016 [place] MEDICATION WASTE Product Size: 4 mg Product Wasted: ___ mg Morphine Notes: (Same Inactive as:MORPhine 2016 [place] Sulfate) oxyCODONE 5 mg 5 mg = 1 tab, Active oral tablet PO, Q4H, PRN 2017 [facility] Pain Score 4-6, City X 14 day, # 40 tab, 0 Refill(s), given to patient acetaminophen 325 650 mg = 2 tab, Active mg oral tablet PO, Q4H, X 14 2017 [facility] day, # 90 tab, City 0 Refill(s), Pharmacy: [facility] Toprol-XL 25 mg Notes: (Same Inactive oral tablet, as: Toprol XL) 2016 [place] extended release Do Not Crush Ci ty Protonix Notes: Tablet Inactive should not be 2016 [facility] chewed or [facility] crushed. (Same as: Protonix) levothyroxine Notes: Take 1 Inactive hour before or 2016 [facility] 2 hours after [facility] meal; Enteral feeds may interefere with the absorption of this medication.(Gregory e as:Levothroid, Synthroid) ketOROLAC 15 4 days Inactive mg/mL injectable MEDICATION 2016 [place] solution WASTE [facility] Product Size: 30 mg Product Wasted: 15 mg simvastatin Notes: (Same No Longer as: Zocor) Active 2016 [facility] melatonin Notes: (Same No Longer as: Melatonin) Active 2016 [facility] albuterol Notes: SEE RT No Longer DOCUMENTATION Active 2016 [facility] (Same as: [facility] Proventil) ceFAZolin (SCIP) Notes: Same as: No Longer 01/26 Ancef Active 2016 [facility] Flomax Notes: (Same No Longer As: Flomax) Active 2016 [facility] "Do Not Crush" [facility] rasagiline Notes: Same as No Longer Azilect Non Active 2016 [facility] Formulary Item [facility] docusate sodium Notes: (Same No Longer H 100 mg oral as: Colace) (Do Active 2016 [facility] rial capsule Not Crush) [facility] NexIUM 40 mg, Route: Inactive PO, Drug form: 2016 [facility] ECCAP, BID, [facility] Dosing Weight 96.619, kg, Start date: 01/26/17 17:00:00 CDT, Duration: 30 day, Stop date: 02/25/17 9:00:00 NUTRIENT MANAGEMENT SPECIALIST ProAir HFA 90 Route: PO, Drug Inactive mcg/inh Form: AERO/A, 2016 [facility] inhalation Dosing Weight [facility] aerosol with 96.619, kg, adapter BID, Start date: 01/26/17 17:00:00 CDT, Duration: 30 day, Stop date: 02/25/17 9:00:00 NUTRIENT MANAGEMENT SPECIALIST cloNIDine 0.1 mg Notes: (Same No Longer oral tablet As: Catapres) [facility] Vasotec Notes: (Same No Longer as: Vasotec-IV) Active 2016 [facility] albuterol 0.083% Notes: SEE RT No Longer inhalation DOCUMENTATION [facility] (Same as: [facility] acetaminophen Notes: Do not No Longer exceed 4 Active 2016 [facility] gm/day. (Same City as: Tylenol) ropivacaine 400 400 mL, 8 Inactive mL ml/hr, Route: 2016 [facility] NERVE BLOCK, [facility] Dosing Weight 96.619, kg, ONCE, Start date: 01/26/17 12:18:00 CDT, Stop date: 01/26/17 12:18:00 CDT ANES ondansetron 4 mg, Route: Inactive H IVP, ONCE, 2016 [facility] Dosing Weight [facility] 96.619, kg, PRN Nausea & Vomiting, Start date: 01/26/17 12:12:00 CDT ANES flumazenil 0.2 mg, Route: Inactive IVP, PRN, 2016 [facility] Dosing Weight [facility] 96.619, kg, PRN Benzodiazepine Reversal, Initial dose, Start date: 01/26/17 12:12:00 CDT, Duration: 30 day, Stop date: 02/25/17 11:11:00 NUTRIENT MANAGEMENT SPECIALIST ANES naloxone 0.4 mg, Route: Inactive IVP, Q2MIN, 2016 [facility] Dosing Weight [facility] 96.619, kg, PRN Narcotic Reversal, Start date: 01/26/17 12:12:00 CDT, Duration: 8 doses or times, Stop date: Limited # of times ANES albuterol 2.49 mg, Route: Inactive 0.083% inhalation NEB, Q20Min, 2017 [facility] solution Dosing Weight [facility] 96.619, kg, PRN Wheezing, Priority: STAT, Start date: 01/26/17 12:12:00 CDT, Duration: 30 day, Stop date: 02/25/17 11:11:00 NUTRIENT MANAGEMENT SPECIALIST albuterol (ANES) Route: IV, Drug Inactive form: AERO/A, 2016 [facility] date: 01/26/17 12:03:00 CDT glycopyrrolate Route: IV, Drug Inactive (ANES) form: INJ, 2016 [facility] date: 01/26/17 11:50:00 CDT neostigmine Route: IV, Drug Inactive (ANES) form: INJ, 2016 [facility] date: 01/26/17 11:50:00 CDT oxyCODONE 5 mg Notes: (Same No Longer oral tablet as: Roxicodone) Active 2016 [facility] ondansetron Route: IV, Drug Inactive (ANES) form: INJ, 2016 [facility] date: 01/26/17 11:30:00 CDT famotidine (ANES) Route: IV, Drug Inactive 01/26 form: INJ, 2016 [facility] Stop date: 01/26/17 11:30:00 CDT ondansetron Notes: (Same No Longer as: Zofran) Active 2016 [facility] MEDICATION City WASTE Product Size: 4 mg Product Wasted: ___ mg Lactated Ringers 1,000 mL, Rate: No Longer 01/26 1,000 mL 100 ml/hr, Active 2016 [facility] Infuse over: 10 City hr, Route: IV, Dosing Weight 96.619 kg, Total Volume: 1,000, Start date: 01/26/17 11:29:00 CDT, Duration: 30 day, Stop date: 02/25/17 11:28:00 NUTRIENT MANAGEMENT SPECIALIST lidocaine (ANES) Route: IV, Drug Inactive form: INJ, 2016 [facility] ONCE, date: 01/26/17 11:25:00 CDT fentaNYL (ANES) Route: IV, Drug Inactive form: INJ, 2016 [facility] ONCE, date: 01/26/17 11:25:00 CDT rocuronium (ANES) Route: IV, Drug Inactive 01/26 form: INJ, 2016 [facility] ONCE, Stop date: 01/26/17 11:25:00 CDT propofol (ANES) Route: IV, Drug Inactive form: INJ, 2016 [facility] ONCE, date: 01/26/17 11:25:00 CDT succinylcholine Route: IV, Drug Inactive (ANES) form: INJ, 2016 [facility] ONCE, Stop date: 01/26/17 11:15:00 CDT ropivacaine 250 Dosincc/hr, Inactive mL Route: NERVE 2016 [facility] BLOCK, Start City date: 01/26/17 11:01:00 CDT 250 mL, Dosing Weight 96.619, kg, Duration: 30 day, Stop date: 02/25/17 10:00:00 NUTRIENT MANAGEMENT SPECIALIST ANES meperidine 12.5 mg, Route: Inactive IVP, Q30Min, 2016 [facility] Dosing Weight [facility] 96.619, kg, PRN Other -See Comment, For shivering, Start date: 01/26/17 10:59:00 CDT, Duration: 2 doses or times, Stop date: Limited # of times ANES ondansetron 4 mg, Route: Inactive H IVP, ONCE, 2016 [facility] Dosing Weight [facility] 96.619, kg, PRN Nausea & Vomiting, Start date: 01/26/17 10:59:00 CDT ANES promethazine 6.25 mg, Route: Inactive 01/26 [facility] IVPB, ONCE, 2016 [facility] Dosing Weight [facility] 96.619, kg, PRN Nausea & Vomiting, Start date: 01/26/17 10:59:00 CDT ANES albuterol 2.49 mg, Route: Inactive 0.083% inhalation NEB, Q20Min, 2016 [facility] solution Dosing Weight [facility] 96.619, kg, PRN Wheezing, Priority: STAT, Start date: 01/26/17 10:59:00 CDT, Duration: 30 day, Stop date: 02/25/17 9:58:00 NUTRIENT MANAGEMENT SPECIALIST ANES flumazenil 0.2 mg, Route: Inactive IVP, PRN, 2016 [facility] 96.619, kg, PRN Benzodiazepine Reversal, Initial dose, Start date: 01/26/17 10:59:00 CDT, Duration: 30 day, Stop date: 02/25/17 9:58:00 NUTRIENT MANAGEMENT SPECIALIST ANES 0.5 mg, Route: Inactive HYDROmorphone IVP, Q5Min, 2016 [place] Dosing Weight [facility] 96.619, kg, PRN Pain Score 7-10, Start date: 01/26/17 10:59:00 CDT, Duration: 4 doses or times, Stop date: Limited # of times ANES labetalol 10 mg, Route: Inactive IVP, Q5Min, 2016 [facility] Dosing Weight [facility] 96.619, kg, PRN Elevated BP, Start date: 01/26/17 10:59:00 CDT, Duration: 5 doses or times, Stop date: Limited # of times ANES naloxone 0.4 mg, Route: Inactive 01/26[facility] IVP, Q2MIN, 2016 [facility] Dosing Weight [facility] 96.619, kg, PRN Narcotic Reversal, Start date: 01/26/17 10:59:00 CDT, Duration: 8 doses or times, Stop date: Limited # of times acetaminophen Route: IV, Drug Inactive H (ANES) (ANES) form: INJ, 2016 [facility] Start date: [facility] 01/26/17 10:40:00 CDT, Stop date: 01/26/17 11:40:00 CDT phenylephrine Route: IV, Drug Inactive H (ANES) form: INJ, 2016 [facility] , Stop City date: 01/26/17 10:32:00 CDT ePHEDrine (ANES) Route: IV, Drug Inactive form: INJ, 2016 [facility] ONCE, Stop City date: 01/26/17 10:32:00 CDT ceFAZolin (ANES) Route: IV, Drug Inactive (ANES) form: INJ, 2016 [facility] Start date: [facility] 01/26/17 10:00:00 CDT, Stop date: 01/26/17 11:00:00 CDT LR 1000 mL INJ Route: IV, Inactive (ANES) Total Volume: 2016 [facility] 1,000, Start City date: 01/26/17 9:53:00 CDT, Stop date: 01/26/17 10:53:00 CDT ceFAZolin 2 gm + Notes: (Same No Longer sterile water 20 As: Ancef, Active 2016 [place] [place] mL Kefzol) [facility] MEDICATION WASTE Product Size: 1000 mg Product Wasted: ___ mg Asmanex HFA See Active Instructions, 2016 [facility] INHALATION BID, [facility] 0 Refill(s) ProAir HFA 1 - 2 puffs, Active PO, BID, # 1 2016 [facility] ea, 0 Refill(s) [facility] metoprolol 25 mg 25 mg = 1 tab, Active oral tablet, PO, Daily, # 90 2016 [facility] extended release tab, 0 [facility] Refill(s) Melatonin 10 mg 10 mg = 1 cap, Active H oral capsule PO, Bedtime, 0 2016 [place] Refill(s) [facility] rasagiline 1 mg 1 mg = 1 tab, Active oral tablet PO, QPM, # 30 2016 [facility] tab, 6 City Refill(s) CoQ10 200 mg, PO, Active QPM, 0 2017 [facility] Refill(s) [facility] simvastatin 40 mg 40 mg = 1 tab, Active oral tablet PO, Bedtime, # 2017 [facility] 90 tab, 1 [facility] Refill(s) Esomeprazole 40 40 mg = 1 cap, Active H [facility] MG Enteric Coated PO, BID, # 1 2016 Capsule [Nexium] caplet, 0 Refill(s), other Trazodone 100 mg = 1 tab, Active [facility] Hydrochloride 100 PO, Bedtime, 2016 MG Oral Tablet PRN Insomnia, # 30 tab, 1 Refill(s), Pharmacy: [facility] Ventolin HFA 90 2 puff, Active [facility] mcg/inh INHALER, Q6H, 2016 inhalation PRN wheezing, aerosol with coughing, or adapter shortness of breath, Dispense quantity sufficient for 100 uses., # 1 ea, 1 Refill(s), Pharmacy: [facility] multivitamin with PO, Daily, 0 Active H [facility] minerals Refill(s) 2016 psyllium 3.4 1 pkt, PO, Active [facility] g/5.8 g oral Daily, 0 2016 powder Refill(s) senna 8.6 mg oral 17.2 mg = 2 Active [facility] tablet tab, PO, QNoon, 2016 0 Refill(s) Thyroxine Notes: Take 1 No Longer [facility] hour before or Active 2016 2 hours after meal; Enteral feeds may interefere with the absorption of this medication.(Gregory e as:Levothroid, Synthroid) Maalox Advanced Notes: Inactive [facility] Regular Strength (aluminum 2016 SUSP hydroxide-magne sium hyd-simethicone [id number]/5m l 30 ml ud IMTIAZ) Acetaminophen Notes: Do not No Longer [facility] exceed 4 Active 2015 gm/day. (Same as: Tylenol) Tylenol Notes: Do not No Longer 03/19/ [facility] exceed 4 Active 2015 gm/day. (Same as: Tylenol) senna 8.6 mg oral Notes: (Same No Longer [facility] tablet as: Senokot) Active 2016 Metamucil Notes: (Same No Longer [facility] as: Konsyl) Active 2015 Mix in 8 oz liquid with meal. aspirin 81 mg Notes: Do not No Longer 03/19/ MH [facility] tablet, enteric crush or chew. Active 2015 coated (Same As: Ecotrin) Ceftriaxone Notes: (Same Inactive [facility] As: Rocephin). 2016 Use with 100 mL NS and infuse over 30 min MEDICATION WASTE Product Size: 1000 mg Product Wasted: _0__ mg Enoxaparin Notes: (Same No Longer [facility] as: Lovenox) Active 2015 Thiamine Notes: (Same No Longer [facility] As: Vitamin B1) Active 2015 Flomax Notes: (Same No Longer [facility] As: Flomax) Active 2015 "Do Not Crush" POLYETHYLENE Notes: Dissolve No Longer 03/18/ M H [facility] GLYCOL 3350 in 8 oz of Active 2015 water or juice. (Same as: Miralax) M.V.I. Adult 1 tab, Route: No Longer 03/18/ [facility] PO, Dosing Active 2015 Weight 87.136, kg, Daily, Start date: 03/18/16 8:30:00 NUTRIENT MANAGEMENT SPECIALIST, Duration: 30 day, Stop date: 04/16/16 8:30:00 NUTRIENT MANAGEMENT SPECIALIST Thyroxine Notes: Take 1 No Longer 03/18/ [facility] hour before or Active 2015 2 hours after meal; Enteral feeds may interefere with the absorption of this medication.(Gregory e as:Levothroid, Synthroid) Folic Acid Notes: (Same No Longer [facility] as: Folvite) Active 2015 Cymbalta Notes: (Same No Longer [facility] as: Cymbalta) Active 2015 (Do Not Crush) Vitamin B 12 Notes: (Same No Longer 03/18/ [facility] As: Vitamin Active 2015 B-12) Aspirin Notes: Take Inactive [facility] with food. 2016 ascorbic acid Notes: (Same No Longer [facility] as: Vitamin C) Active 2015 multivitamin with Notes: (Same No Longer [facility] minerals as:Thera-M, Active 2016 Theragran-M) WASTE: F/P - Black; E - Municipal Trash Bin Give with food. Trazodone Notes: (Same No Longer [facility] Hydrochloride 100 As: Desyrel) Active 2016 MG Oral Tablet pantoprazole Notes: Tablet No Longer [facility] should not be Active 2016 chewed or crushed. (Same as: Protonix) Clotrimazole 10 Notes: For No Longer [facility] MG/ML Topical external use Active 2016 Cream only. (Same As: Lotrimin AF, Mycelex) atorvastatin Notes: (Same No Longer [facility] as: Lipitor) Active 2016 Acetaminophen Notes: Do not No Longer [facility] exceed 4 Active 2016 gm/day. (Same as: Tylenol) Levetiracetam 1,500 mg, Inactive [facility] Route: IV, PRN, 2016 Dosing Weight 87.136, kg, PRN Seizure, Start date: 03/17/16 19:09:00 NUTRIENT MANAGEMENT SPECIALIST, Duration: 30 day, Stop date: 04/16/16 19:08:00 NUTRIENT MANAGEMENT SPECIALIST Midazolam 40 kg No Longer [facility] Active 2015 Bisacodyl Notes: (Same No Longer [facility] As: Dulcolax, Active 2016 [facility]-Lax) Albuterol 0.83 Notes: SEE RT No Longer H [facility] MG/ML Inhalant DOCUMENTATION Active 2015 Solution (Same as: Proventil) Trazodone 100 mg = 1 tab, On Hold [place] as Hydrochloride 100 PO, Bedtime, 0 2016 Medical MG Oral Tablet Refill(s) [place] thiamine 100 mg 100 mg = 1 tab, On Hold [place] oral tablet PO, Daily, 0 2015 [facility] Refill(s) [place] POLYETHYLENE PO, Daily, 0 On Hold [place] as GLYCOL 3350 Refill(s) 2016 [facility] pantoprazole 40 40 mg = 1 tab, On Hold H [place] mg oral enteric PO, BID, 0 2015 Medic al coated tablet Refill(s) [place] Menthol 0.0044 1 appl, TOP, On [place] MG/MG / Zinc PRN, PRN Diaper 2016 Med ical Oxide 0.2 MG/MG Rash, C enter Topical Ointment Dosing, 0 Refill(s) levalbuterol 0.63 0.63 mg = 3 mL, On Hold [place] mg/3 mL NEB, PRN, PRN 2016 Medical inhalation [facility] solution Protocol, 0 Refill(s) Folic Acid 1 MG 1 mg = 1 tab, On Hold [place] Oral Tablet PO, Daily, 0 2015 Medical Refill(s) [place] enoxaparin 40 40 mg = 0.4 mL, On Hold [place] mg/0.4 mL SUB-Q, 2016 Medical subcutaneous [id number], 0 [place] solution Refill(s) cyanocobalamin 1,000 microgram On Hold H [place] 1000 mcg = 1 tab, PO, 2016 Medical sublingual tablet Daily, 0 Cente r Refill(s) 168 HR Clonidine 1 patch, TOP, On Hold H [place] 0.96661 MG/HR Q7D, 0 2015 Medical Transdermal Patch Refill(s) Cent er [[id number]] Clotrimazole 10 1 appl, TOP, On Hold [place] MG/ML Topical BID, 0 2015 Medical Cream Refill(s) [place] cefTRIAXone 2 g 2 gm, IVPB, On [place] injection [id number], 0 2015 Medical Refill(s) [place] benzonatate 100 200 mg = 2 cap, On Hold [place] mg oral capsule PO, TID, 0 2015 Medic al Refill(s) [place] atorvastatin 40 80 mg = 2 tab, On Hold H [place] mg oral tablet PO, Bedtime, 0 2015 Me dical Refill(s) [place] ascorbic acid 500 500 mg = 1 tab, On Hold [place] mg oral tablet CHEW, Daily, 0 2015 Me dical Refill(s) Center Aspirin 325 mg = 1 tab, On Hold [place] PO, Daily, 0 2015 Medical Refill(s) Center acetaminophen 500 1,000 mg = 2 On Hold H [place] mg oral tablet tab, PO, Q6H, 2016 Med ical PRN Pain Score Center 6-10, 0 Refill(s) Ativan Notes: (Same No Longer [place] as: Ativan) Active 2015 [facility] Ceftriaxone Notes: (Same No Longer [place] As: Rocephin). Active 2015 Medical Use with 100 mL Center NS and infuse over 30 min MEDICATION WASTE Product Size: 2000 mg Product Wasted: ___ mg Miralax Notes: Dissolve No Longer [place] as in 8 oz of Active 2015 Medical water or juice. Center (Same as: Miralax) glycerin adult 1 supp, Route: No Longer [place] rectal VA, Drug Form: Active 2015 Medical suppository SUPP, Dosing Center Weight 88.636, kg, Daily, PRN Constipation, Start date: 03/15/16 10:23:00 NUTRIENT MANAGEMENT SPECIALIST, Duration: 30 day, Stop date: 04/14/16 10:22:00 NUTRIENT MANAGEMENT SPECIALIST Vancomycin 2001 mg: No Longer [place] infuse over 2.5 Active 2015 Medical hours Center MEDICATION WASTE Product Size: 1000 mg Product Wasted: ___ mg Zosyn Notes: (Same No Longer [place] as: Zosyn) Active 2015 Medical Dosing based on Center Piperacillin component MEDICATION WASTE Product Size: 3375 mg Product Wasted: ___ mg Protonix Notes: Tablet No Longer [place] should not be Active 2015 Medical chewed or Center crushed. (Same as: Protonix) Earlene Mendoza Notes: (Same No Longer [facility] As: Earlene Active 2015 [facility] Kelly) "Do Not Center Crush" Vitamin C Notes: (Same No Longer [place] as: Vitamin C) Active 2015 [facility] Vitamin B12 1,000 No Longer [place] microgram, Active 2015 Medical Route: PO, Drug Center form: TAB, Daily, Dosing Weight 88.636, kg, Start date: 03/13/16 9:00:00 NUTRIENT MANAGEMENT SPECIALIST, Duration: 30 day, Stop date: 04/11/16 9:00:00 NUTRIENT MANAGEMENT SPECIALIST Thiamine 100 mg, Route: No Longer [place] as PO, Drug form: Active 2015 Medical TAB, Daily, Center Dosing Weight 88.636, kg, Start date: 03/13/16 9:00:00 NUTRIENT MANAGEMENT SPECIALIST, Duration: 30 day, Stop date: 04/11/16 9:00:00 NUTRIENT MANAGEMENT SPECIALIST Vitamin C Notes: (Same Inactive [place] as: Vitamin C) 2016 [facility] Vitamin B12 Notes: (Same No Longer [place] As: Vitamin Active 2015 [facility] B-12) Center Thiamine Notes: (Same No Longer [place] As: Vitamin B1) Active 2015 [facility] Center Folic Acid Notes: (Same No Longer [place] as: Folvite) Active 2015 [facility] TPN solution, Notes: Per No Longer [place] adult 900 mL hospital Active 2015 Medical policy, bag Center must be changed every 24hr. TPN solution, Notes: [place] 900 [place] hospital Active 2015 Medical policy, bag Center must be changed every 24hr. Calmoseptine Notes: (Same No Longer [place] as: Active 2015 Medical Calmoseptine) Center Clotrimazole 10 Notes: For No Longer [place] MG/ML Topical external use Active 2015 Medic al Cream only. (Same As: Center Lotrimin AF, Mycelex) TPN solution, Notes: [place] [facility] hospital Active 2015 Medical policy, bag Center must be changed every 24hr. TPN solution, Notes: [place] 900 [facility] hospital Active 2015 Medical policy, bag Center must be changed every 24hr. potassium Notes: (Same Inactive [place] chloride as: KCL) 2015 Medical Infuse no Center faster than 10 mEq/hr if given peripherally. Isolyte S PH-7.4 Notes: (Same Inactive 03/08/ H [place] ([place]) IV as: Isolyte S 2016 Medical PH7.4) Center Ergocalciferol Notes: (Same Inactive [facility] [address] UNT Oral as: Vitamin D) 2016 Me dical Capsule "Do Not Crush" Center potassium Notes: (Same Inactive [place] chloride as: KCL) 2016 Medical Infuse no Center faster than 10 mEq/hr if given peripherally. TPN solution, Notes: [place] 900 [facility] hospital Active 2015 Medical policy, bag Center must be changed every 24hr. Dextrose 50% 12.5 gm, 25 mL, No Longer H [place] Syringe Route: IVP, Active 2015 Medical Drug Form: INJ, Center Dosing Weight 88.636, kg, PRN, PRN Blood Glucose Results, Start date: 03/07/16 16:09:00 NUTRIENT MANAGEMENT SPECIALIST, Duration: 30 day, Stop date: 04/06/16 16:08:00 NUTRIENT MANAGEMENT SPECIALIST Glucagon 1 mg, Route: No Longer [place] IM, Drug form: Active 2015 Medical PDR/INJ, PRN, Center Dosing Weight 88.636, kg, PRN Blood Glucose Results, Start date: 03/07/16 16:09:00 NUTRIENT MANAGEMENT SPECIALIST, Duration: 30 day, Stop date: 04/06/16 16:08:00 NUTRIENT MANAGEMENT SPECIALIST Insulin, Aspart, Notes: Roll in No Longer [place] Human palms of hands Active 2015 Medical gently; Do not Center shake vigorously. (Same as: NovoLOG) "single patient use only" WASTE: F/P - Black; E - Municipal Trash Bin Stable for 28 days at room temperature. Expires in days from D ate potassium Notes: (Same Inactive [place] chloride as: KCL) 2015 Medical Infuse no Center faster than 10 mEq/hr if given peripherally. Isolyte S PH-7.4 Notes: (Same No Longer [place] ([place]) IV as: Isolyte S Active 2015 Medical PH7.4) Center TPN solution, Notes: [place] 900 [place] [facility] Active 2015 Medical policy, bag Center must be changed every 24hr. remove patch Notes: Remove No Longer [place] old patch Active 2015 Medical before Center application of new patch. Isolyte S PH-7.4 Notes: (Same Inactive H [place] ([place]) IV as: Isolyte S 2015 Medical PH7.4) Center potassium Notes: (Same Inactive [place] phosphate + as: K 2015 Medical sodium chloride Phosphate.) 1 C enter 0.9% INJ 250 mL mMol phoshate has 1.47 mEq potassium Infuse over 4 hours atorvastatin Notes: (Same No Longer [place] as: Lipitor) Active 2016 Medical [facility] PH-7.4 Notes: (Same Inactive [facility] ([place]) IV as: Isolyte S 2016 [facility] PH7.4) Center TPN solution, Notes: [place] 900 [place] hospital Active 2016 Medical policy, bag Center must be changed every 24hr. potassium Notes: (Same Inactive [place] phosphate + as: K 2015 Medical sodium chloride Phosphate.) 1 C enter 0.9% INJ 250 mL mMol phoshate has 1.47 mEq potassium Infuse over 4 hours potassium Notes: (Same Inactive [facility] chloride as: KCL) 2015 Medical Infuse no Center faster than 10 mEq/hr if given peripherally. potassium Notes: (Same Inactive [facility] chloride as: KCL) 2015 Medical Infuse no Center faster than 10 mEq/hr if given peripherally. potassium Notes: (Same Inactive [facility] phosphate + as: K 2015 Medical sodium chloride Phosphate.) 1 C enter 0.9% INJ 250 mL mMol phoshate has 1.47 mEq potassium Infuse over 4 hours potassium Notes: (Same Inactive [facility] chloride as: KCL) 2015 Medical Infuse no Center faster than 10 mEq/hr if given peripherally. Trazodone Notes: ([facility] Hydro[facility] 100 As: Desyrel) Active 2015 edical MG Oral Tablet [facility] PH-7.4 Notes: (Same Inactive [facility] ([place]) IV as: Isolyte S [address] [place] [address] PH 7.4) [place] TPN solution, Notes: [place] 900 [facility] hospital Active 2016 Medical policy, bag Center must be changed every 24hr. potassium Notes: (Same Inactive [facility] phosphate + as: K 2015 Medical sodium chloride Phosphate.) 1 C enter 0.9% INJ 250 mL mMol phoshate has 1.47 mEq potassium Infuse over 4 hours potassium 2 pkt, Route: [place] phosphate-sodium PO, Dosing 2016 Medi ofelia phosphate 250 Weight 88.636, Geoff ter mg-280 mg-160 mg kg, ONCE, Start oral powder for date: 03/04/16 reconstitution 11:29:00 NUTRIENT MANAGEMENT SPECIALIST, Stop date: 03/04/16 11:29:00 NUTRIENT MANAGEMENT SPECIALIST potassium Notes: (Same Inactive [facility] chloride as: KCL) 2015 Medical Infuse no Center faster than 10 mEq/hr if given peripherally. potassium Notes: (Same Inactive [facility] phosphate + as: K 2015 [facility] sodium chloride Phosphate.) 1 C enter 0.9% INJ 250 mL mMol phoshate has 1.47 mEq potassium Infuse over 4 hours Isolyte S PH-7.4 Notes: (Same Inactive [facility] ([place]) IV as: Isolyte S 2016 Medical PH 7.4) Center TPN solution, Notes: [place] 900 [facility] hospital Active 2015 Medical policy, bag Center must be changed every 24hr. potassium 10 mEq, Route: Inactive [place] as chloride IVPB, Q1H, 2015 Medical Dosing Weight Center 88.636, kg, Total Dose = 40 meq, Start date: 03/03/16 17:00:00 NUTRIENT MANAGEMENT SPECIALIST, Duration: 4 doses or times, Stop date: 03/03/16 20:00:00 NUTRIENT MANAGEMENT SPECIALIST, Peripheral Line Dilaudid Notes: Same as Inactive [facility] s Dilaudid 2016 Medical Center Synthroid Notes: (Same [place]er [place] as: Synthroid) Active 2016 Medical Center potassium Notes: (Same Inactive [facility] phosphate-sodium as: Phos-NaK) 2015 edical phosphate Each 1.5 gm pkt Center has 250mg phosphorous. Mix w/2.5oz water and stir. potassium Notes: (Same Inactive [facility] chloride as: KCL) 2015 Medical Infuse no Center faster than 10 mEq/hr if given peripherally. potassium 10 mEq, Route: Inactive [place] as chloride IVPB, Q1H, 2015 Medical Dosing Weight Center 88.636, kg, Total Dose = 40 meq, Start date: 03/03/16 8:00:00 NUTRIENT MANAGEMENT SPECIALIST, Duration: 4 doses or times, Stop date: 03/03/16 11:00:00 NUTRIENT MANAGEMENT SPECIALIST, Peripheral Line Calmoseptine Notes: (Same No Longer [place] as: Active 2015 Medical Calmoseptine) Center Erythromycin Notes: (Same No Longer [place] as: Active 2015 Medical erythromycin Center lactobionate) TPN solution, Notes: [place] 900 mL hospital Active 2015 Medical policy, bag Center must be changed every 24hr. Saline Flush 0.9% Notes: (Same No Longer [place] as: BD Active 2015 Medical Posiflush) Center Lidocaine Notes: (Same [place] Hydrochloride 10 as: Xylocaine) Active 2015 Medical MG/ML Injectable Center Solution Saline Flush 0.9% Notes: (Same No Longer [place] as: BD Active 2015 Medical Posiflush) Center Iohexol Notes: (Same Inactive [place] as:Omnipaque 2015 Medical 350). WASTE: Center F/P - Black; E - Municipal Trash Bin Isolyte S PH-7.4 Notes: (Same Inactive H [place] ([place]) IV as: Isolyte S 2015 Medical PH 7.4) Center Isolyte S (PH Notes: (Same No Longer [place] 7.4) 1000 mL 1000 as: Isolyte S Active 2015 Medical mL PH 7.4) Center Isolyte S PH-7.4 Notes: (Same Inactive H [place] ([place]) IV as: Isolyte S 2015 Medical PH 7.4) Center Insulin regular 60 units) No Longer [facility] WASTE: F/P - Active 2015 Medical Black; E - Center Municipal Trash Bin Stable for 28 days at room temperature Expires in days from D ate Dextrose 50% 12.5 gm, 25 mL, No Longer H [place] Syringe Route: IVP, Active 2015 Medical Drug Form: INJ, Center Dosing Weight 88.636, kg, PRN, PRN Abnormal Lab Result, Start date: 02/29/16 19:10:00 NUTRIENT MANAGEMENT SPECIALIST, Duration: 30 day, Stop date: 03/30/16 19:09:00 NUTRIENT MANAGEMENT SPECIALIST, For FSBG 40 mg/dL - 60 mg/dL Reglan Notes: (Same No Longer [place] as: Reglan) Active 2016 Medical Center potassium Notes: (Same Inactive [facility] chloride as: KCL) 2016 Medical Infuse no Center faster than 10 mEq/hr if given peripherally. potassium Notes: (Same Inactive [facility] chloride as: KCL) 2016 Medical Infuse no Center faster than 10 mEq/hr if given peripherally. Morphine Notes: (Same Inactive [facility] as:MORPhine 2015 Medical Sulfate) Center Xopenex Notes: SEE RT No Longer [facility] DOCUMENTATION Active 2016 Medical (Same Center as:Xopenex) Non-Formulary D5NS 1,000 mL 1,000 mL, Rate: No Longer [facility] 50 ml/hr, Active 2015 Medical Infuse over: 20 Center hr, Route: IV, Dosing Weight 88.636 kg, Total Volume: 1,000, Start date: 02/29/16 14:34:00 NUTRIENT MANAGEMENT SPECIALIST, Duration: 30 day, Stop date: 03/30/16 14:33:00 NUTRIENT MANAGEMENT SPECIALIST Vancomycin 2001 mg: No Longer [facility] infuse over 2.5 Active 2015 Medical hours Center MEDICATION WASTE Product Size: 1000 mg Product Wasted: ___ mg Golytely Notes: No Longer [facility] (polyethylene Active 2015 [facility] glycol Java electrolyte solution 4 Liter bottle) (Same as: Golytely, Colyte) Bisacodyl Notes: ([facility] As: Dulcolax, Active 2016 [facility] Bisco-Lax) Center Reglan Notes: (Same No Longer [facility] as: Reglan) Active 2016 [facility] Lactulose 1,000 ml, Inactive [facility] Route: VA, Drug 2016 Medical Form: NICHOLAS, Center Dosing Weight 88.636, kg, ONCE, Start date: 02/28/16 10:04:00 NUTRIENT MANAGEMENT SPECIALIST, Duration: 1 doses or times, Stop date: 02/28/16 10:04:00 NUTRIENT MANAGEMENT SPECIALIST, 300 mL lactulose + 700 mL water 168 HR Clonidine Notes: Patch No Longer [facility] 0.31049 MG/HR delivers 0.2 Active 2015 Medic al Transdermal Patch mg/24 hours; C enter [[id number]] Patch is applied weekly. "Remove old patch before application of new patch" (Same As: [id number]) Thiamine Notes: (Same No Longer [facility] As: Vitamin B1) Active 2015 Medical Center Acetaminophen Notes: Max No Longer [facility] [place] acetaminophen Active 2015 Medical 4000 mg/day (4 Center gm/day). (Same as: Tylenol Extra Strength) mineral oil Notes: (Same No Longer [place] as:Fleet Active 2015 [facility] Mineral Oil Center Enema) iodixanol 92 mL, Route: [place] IVP, Drug Form: 2015 Medical SOLN, Dosing Center Weight 88.636, kg, ONCALL, STAT, Start date: 02/27/16 15:46:00 NUTRIENT MANAGEMENT SPECIALIST, Duration: 1 doses or times, Dose = 2.2ml/kg, Max dose = 100ml -- "To be infused by Radiology Staff ONLY" Zosyn Notes: (Same No Longer [facility] as: Zosyn) Active 2015 Medical Dosing based on Center Piperacillin component MEDICATION WASTE Product Size: 3375 mg Product Wasted: _0__ mg Vancomycin 2001 mg: No Longer [place] infuse over 2.5 Active 2015 Medical hours Center MEDICATION WASTE Product Size: 1000 mg Product Wasted: ___ mg Insulin, Aspart, Notes: Roll in No Longer [facility] Human palms of hands Active 2015 Medical gently; Do not Center shake vigorously. (Same as: NovoLOG) "single patient use only" WASTE: F/P - Black; E - Municipal Trash Bin Stable for 28 days at room temperature. Expires in days from D ate Dextrose 50% 25 gm, 50 mL, No Longer [facility] Syringe Route: IVP, Active 2015 Medical Drug Form: INJ, Center Dosing Weight 88.636, kg, PRN, PRN Blood Glucose Results, Start date: 02/27/16 12:47:00 NUTRIENT MANAGEMENT SPECIALIST, Duration: 30 day, Stop date: 03/28/16 12:46:00 NUTRIENT MANAGEMENT SPECIALIST Glucagon 1 mg, Route: No Longer [facility] IM, Drug form: Active 2015 Medical PDR/INJ, PRN, Center Dosing Weight 88.636, kg, PRN Blood Glucose Results, Start date: 02/27/16 12:47:00 NUTRIENT MANAGEMENT SPECIALIST, Duration: 30 day, Stop date: 03/28/16 12:46:00 NUTRIENT MANAGEMENT SPECIALIST D5NS 1,000 mL 1,000 mL, Rate: No Longer [place] 100 ml/hr, Active 2016 Medical Infuse over: 10 Center hr, Route: IV, Dosing Weight 88.636 kg, Total Volume: 1,000, Start date: 02/27/16 12:29:00 NUTRIENT MANAGEMENT SPECIALIST, Duration: 30 day, Stop date: 03/28/16 12:28:00 NUTRIENT MANAGEMENT SPECIALIST Sodium Chloride 1,000 mL, 1,000 Inactive [facility] 0.154 MEQ/ML ml/hr, Infuse 2016 Medic al Injectable Over: 1 hr, Center Solution Route: IV, 1,000, Drug form: INJ, ONCE, Priority: STAT, Dosing Weight 88.636 kg, Start date: 02/27/16 10:43:00 NUTRIENT MANAGEMENT SPECIALIST, Duration: 1 doses or times, Stop date: 02/27/16 10:43:00 NUTRIENT MANAGEMENT SPECIALIST Protonix 40 mg, Route: [facility], Drug form: Active 2015 Medical INJ, BID, Center Dosing Weight 88.636, kg, Start date: 02/27/16 9:00:00 NUTRIENT MANAGEMENT SPECIALIST, Duration: 30 day, Stop date: 03/27/16 17:00:00 NUTRIENT MANAGEMENT SPECIALIST Sodium Chloride 1,000 mL, 1,000 Inactive [facility] 0.154 MEQ/ML ml/hr, Infuse 2016 Medic al Injectable Over: 1 hr, Center Solution Route: IV, 1,000, Drug form: INJ, ONCE, Priority: STAT, Dosing Weight 88.636 kg, Start date: 02/27/16 8:57:00 NUTRIENT MANAGEMENT SPECIALIST, Duration: 1 doses or times, Stop date: 02/27/16 8:57:00 NUTRIENT MANAGEMENT SPECIALIST Erythromycin Notes: (Same No Longer [place] as: Active 2016 [facility] erythromycin Center lactobionate) Metoprolol Notes: (Same In[place] as: Lopressor) 2016 Medical Push over 2 Center minutes Lactulose Notes: (Same Inactive 02/26[facility] as:Chronulac) 2016 [facility] Center magnesium citrate Notes: (Same Inactive [facility] [place] 58.2 MG/ML Oral as: Citrate of 2015 edical Solution Magnesia) Center Concentration: 1.745 gm / 30 mL Simethicone Notes: (Same [place] Longer [place] as: Mylicon) Active [address] [place] [address] gabapentin 100 MG Notes: (Same No Longer [place] Oral Capsule as: Neurontin) Active 2016 [facility] magnesium citrate Notes: (Same Inactive [place] 58.2 MG/ML Oral as: Citrate of 2015 edical Solution Magnesia) Center Concentration: 1.745 gm / 30 mL Simethicone Notes: (Same [place] Long[place] as: Mylicon, Active 2016 [facility] Phazyme, Center Genasyme) molasses Notes: (Same No Longer [place] as:Molasses) Active [address] [place] [address] Bisacodyl Notes: (Same Inactive [place] As: Dulcolax, 2016 [facility] Bisco-Lax) Center Aspirin Notes: Take No Longer [place] with food. Active 2016 [facility] Miralax Notes: Dissolve No Longer [place] as in 8 oz of Active 2016 [facility] water or juice. Center (Same as: Miralax) Lovenox Notes: (Same No Longer [place] as: Lovenox) Active [address] [place] [address] Lipitor Notes: (Same No Longer [place] as: Lipitor) Active [address] [place] [address] Aspirin 325 MG Notes: Take Inactive [place] Oral Tablet with food. 2016 [facility] aspirin 81 mg Notes: Take Inactive [place] tablet, chewable with food. 2016 [facility] iodixanol 100 mL, Route: Inactive [place] as IVP, Drug Form: 2016 [facility] SOLN, Dosing Center Weight 88.636, kg, ONCALL, STAT, Start date: 02/23/16 16:52:00 NUTRIENT MANAGEMENT SPECIALIST, Duration: 1 doses or times, Dose = 2.2ml/kg, Max dose = 150ml -- "To be infused by Radiology Staff ONLY" Iohexol Notes: (Same Inactive [place] as:Omnipaque [address] [place] [address] 350). WASTE: Center F/P - Black; E - Municipal Trash Bin Vitamin D2 Notes: (Same In[place] as: Vitamin D) 2016 Medical "Do Not Crush" Center Vitamin D3 50,000 Inactive [facility]2015 Medical Route: PO, Center ONCE, Dosing Weight 88.636, kg, Start date: 02/22/16 11:32:00 NUTRIENT MANAGEMENT SPECIALIST, Stop date: 02/22/16 11:32:00 NUTRIENT MANAGEMENT SPECIALIST Docusate Sodium Notes: (Same No Longer H [place] 100 MG Oral as: Colace) Active 2016 Medical Capsule [Colace] Center Flomax Notes: (Same No Longer [place] As: Flomax) Active 2015 Medical "Do Not Crush" Center gabapentin 300 MG Notes: (Same No Longer [place] Oral Capsule as: Neurontin) Active [address] [facility] Center multivitamin Notes: (Same No Longer [place] as:Thera) Active 2015 Medical WASTE: F/P - Center Black; E - Municipal Trash Bin Take with food. Thyroxine Notes: Take 1 No Longer [facility] as hour before or Active 2015 Medical 2 hours after Center meal; Enteral feeds may interefere with the absorption of this medication.([facility] e as:Levothroid, Synthroid) Nexium 40 mg, Route: No Longer [place] PO, Drug form: Active 2015 Medical ECCAP, Daily, Center Dosing Weight 88.636, kg, Start date: 02/22/16 9:00:00 NUTRIENT MANAGEMENT SPECIALIST, Duration: 30 day, Stop date: 03/22/16 9:00:00 NUTRIENT MANAGEMENT SPECIALIST Cymbalta Notes: (Same No Longer [place] as: Cymbalta) Active 2016 Medical (Do Not Crush) Center Vitamin D3 50,000 Inactive [place] Intl[facility], 2015 Medical Route: PO, Center ONCE, Dosing Weight 88.636, kg, Start date: 02/22/16 7:42:00 NUTRIENT MANAGEMENT SPECIALIST, Stop date: 02/22/16 7:42:00 NUTRIENT MANAGEMENT SPECIALIST Morphine Notes: (Same No Longer [place] as:MORPhine Active 2015 Medical Sulfate) Center Acetaminophen 300 Notes: Do not No Longer [place] MG / Codeine exceed 4gm/day Active [address] [facility] Phosphate 30 MG of Center Oral Tablet acetaminophen. [Tylenol with (Same as: Codeine #3] Tylenol with Codeine # 3) Protonix Notes: Tablet [place] Longer [place] should not be Active 2015 [facility] chewed or Center crushed. (Same as: Protonix) gabapentin 300 MG Notes: (Same Inactive [place] Oral Capsule as: Neurontin) 2015 [facility] Vitamin D3 50,000 Vitamin D3 Inactive [place] IntlUnit 50,000 2016 Medical IntlUnit, 1 Center tab, Drug form: MISC, Route: PO, ONCE, 02/21/16 23:10:00 NUTRIENT MANAGEMENT SPECIALIST, Stop date: 02/21/16 23:10:00 NUTRIENT MANAGEMENT SPECIALIST Simvastatin Notes: (Same [place] Long[place] as: Zocor) Active 2015 [facility] albumin human 5% 500 mL, Route: Inactive [place] intravenous IV, Dosing 2015 Medical solution Weight 88.636, Center kg, ONCE, Start date: 02/21/16 20:46:00 NUTRIENT MANAGEMENT SPECIALIST, Stop date: 02/21/16 20:46:00 NUTRIENT MANAGEMENT SPECIALIST Flumazenil Notes: (Same No Longer [place] as: Romazicon) Active 2015 [facility] Hydromorphone Notes: Same as No Longer [facility] Dilaudid Active 2015 [facility] Labetalol 10 mg, 2 mL, [place] Long[place] Route: IVP, Active 2015 Medical Drug form: INJ, Center Q5Min, Dosing Weight 88.636, kg, PRN Elevated BP, Start date: 02/21/16 20:05:00 NUTRIENT MANAGEMENT SPECIALIST, Duration: 5 doses or times, Stop date: Limited # of times Naloxone Notes: Same as No Longer [place] Narcan Active 2015 [facility] Ondansetron Notes: (Same [place] Long[place] as: Zofran) Active 2015 Medical MEDICATION Center WASTE Product Size: 4 mg Product Wasted: ___ mg Ancef Notes: Same as: No Longer [place] as Ancef Active [address] [place] [address] tramadol Notes: Not to [place] Longer [place] hydrochloride 50 exceed Active 2015 Medical MG Oral Tablet 400mg/day. Center (Same As: Ultram) Morphine Notes: Dose: No Longer [place] Delay: Active 2015 Medical Basal Center rate: 4hr limit: (Same as:Jesus) Vitamin D3 50,000 Inactive [place] IntlUnit, 2015 Medical Route: PO, Center ONCE, Dosing Weight 88.636, kg, Start date: 02/21/16 19:26:00 NUTRIENT MANAGEMENT SPECIALIST, Stop date: 02/21/16 19:26:00 NUTRIENT MANAGEMENT SPECIALIST Naloxone Notes: Same as No Longer [place] Narcan Active 2016 Medical Center Isolyte S (PH Notes: (Same No Longer [place] 7.4) 1000 mL as: Isolyte S Active 2015 Medic al 1,000 mL PH 7.4) Center Oxycodone Notes: (Same [place] Longer [place] as: Roxicodone) Active 2015 Medical Center Naloxone Notes: Same as No Longer [place] as Narcan Active 2015 Medical Center Flumazenil Notes: (Same No Longer [place] as: Romazicon) Active 2015 Medical Center Ondansetron Notes: (Same [place] as: Zofran) Active 2015 Medical MEDICATION Center WASTE Product Size: 4 mg Product Wasted: ___ mg Hydromorphone Notes: Same as No Longer [facility] Dilaudid Active 2016 Medical Center Labetalol 10 mg, 2 mL, [place] Longer [place] Route: IVP, Active 2015 Medical Drug form: INJ, Center Q5Min, Dosing Weight 88.636, kg, PRN Elevated BP, Start date: 02/21/16 6:48:00 NUTRIENT MANAGEMENT SPECIALIST, Duration: 5 doses or times, Stop date: Limited # of times Hydralazine Notes: (Same [place] Long[place] as: Apresoline) Active 2015 Medical Push over 5 Center minutes ceFAZolin Notes: Same as: Inactive [place] Ancef 2016 Medical Center Thyroxine 50 microgram, On Hold [place] PO, Daily, 0 2015 Medical Refill(s) Center Esomeprazole 40 40 mg = 1 cap, No Longer [place] MG Enteric Coated PO, Daily, # 30 Active 2016 Medical Capsule [Nexium] cap, 0 [place] Refill(s) simvastatin 40 mg 40 mg = 1 tab, No Longer 02/07 [place] oral tablet PO, Bedtime, # Active 2015 Medic al 90 tab, 1 Center Refill(s) Flomax 0.4 mg, PO, On Hold [place] Daily, 0 2015 Medical Refill(s) [place] multivitamin PO, Daily, 0 On Hold [place] as Refill(s) 2015 [facility] Nexium PO, Daily, 0 No Longer [place] Refill(s) Active 2016 [facility] duloxetine 60 MG 60 mg = 1 cap, On Hold [place] Enteric Coated PO, Daily, # 30 2016 M edical Capsule cap, 0 Java [Cymbalta] Refill(s) Allergies, Adverse Reactions, Alerts Substance Category Reaction Severity Reaction Status Date Comments S ource type Reported No Known Assertion Drug Medication allergy [facility] Allergies Immunizations Immunization Date Site Status Last Comments Source Given Updated pneumococcal Left completed Ali 2.16.84 0.1.1 13-valent vaccine 8 Deltoid 13 [id number], ARRON [place],[facility], [facility] Results Order Name Results Value Reference Date Interpretation Comments Geeta rce Range IMMUNOLOGY IgE Lvl 35.2 10.0 - 03/09 100.0 [facility] CARDIAC Troponin-I <0.02 0.00 - 03/08 ENZYMES 0.40 [facility] CHEM PANEL Glucose Lvl 248 70 - 99 03/08 [facility] CHEM PANEL BUN 16 7 - 22 03/08 [facility] CHEM PANEL Creatinine 1.12 0.50 - 03/08 Lvl 1.40 [facility] CHEM PANEL Sodium Lvl 136 135 - 145 03/08 [facility] CHEM PANEL Potassium 4.5 3.5 - 5.1 03/08 Lvl /2018 [facility] CHEM PANEL Chloride Lvl 106 95 - 109 03/08 [facility] CHEM PANEL CO2 26 24 - 32 03/08 [facility] CHEM PANEL AGAP 8.5 10.0 - 03/08 20.0 2019 [facility] CHEM PANEL Calcium Lvl 8.8 8.5 - 10.5 03/08 [facility] CHEM PANEL eGFR 63 12/14 Result Comment: The [facility] eGFR is calculated using the CKD-EPI formula. In most young, healthy individuals the eGFR will be >90 mL/min/1.73m2 . The eGFR declines with age. An eGFR of 60-89 may be normal in some populations, particularly the elderly, for whom the CKD-EPI formula has not been extensively validated. Use of the eGFR is not recommended in the following populations:< br/>
Naomi viduals with unstable creatinine concentration s, including patients and those with serious co-morbid conditions.<b r/>
Patie nts with extremes in muscle mass or diet.

The data above are obtained from the National [employer] Education Program (NKDEP) which additionally recommends that when the eGFR is used in patients with extremes of body mass index for purposes of drug dosing, the eGFR should be multiplied by the estimated BMI. HEMATOLOGY Neutrophils 9.5 1.5 - 8.1 03/08 MH # /2018 [facility] HEMATOLOGY Lymphocytes 0.6 1.0 - 5.5 03/08 # [facility] HEMATOLOGY Monocytes # 0.0 0.0 - 0.8 03/08 [facility] HEMATOLOGY Segs 94.0 45.0 - 03/08 75.0 [facility] HEMATOLOGY Bands 0.0 0.0 - 11.0 03/08 [facility] HEMATOLOGY Lymphocytes 5.0 20.0 - 03/08 MH 40.0 [facility] HEMATOLOGY Monocytes 0.0 2.0 - 12.0 03/08 [facility] HEMATOLOGY Atypical 1.0 <=0.0 % 03/08 Lymphs [facility] HEMATOLOGY RBC Morph Normal Normal 03/08 (03/08/19 3:34 AM) [facility] Morph Normal Normal 03/08 (03/08/19 3:34 AM) [facility] HEMATOLOGY WBC 10.1 3.7 - 10.4 03/08 [facility] HEMATOLOGY RBC 4.59 4.70 - 03/08 MH 6.10 [facility] HEMATOLOGY Hgb 12.8 14.0 - 03/[address] [facility] Hct 38.7 42.0 - 03/08 MH 54.0 [facility] HEMATOLOGY MCV 84.3 80.0 - 03/08 94.0 [facility] HEMATOLOGY MCH 27.9 27.0 - 03/08 31.0 [facility] HEMATOLOGY MCHC 33.1 32.0 - 03/08 36.0 [facility] HEMATOLOGY RDW 15.6 11.5 - 03/08 14.5 [facility] HEMATOLOGY Platelet 216 133 - 450 03/08 [facility] HEMATOLOGY MPV 6.8 7.4 - 10.4 03/08 [facility] LIPIDS CHD Risk 3.39 4.00 - 03/08 7.30 [facility] LIPIDS Trig 119 <=149 03/08 mg/dL /2018 [facility] LIPIDS Chol 156 <=199 03/08 mg/dL [facility] LIPIDS HDL 46 >=61 mg/dL 03/08 [facility] LIPIDS LDL 86 <=99 mg/dL 03/08 (Calculated) [facility] LIPIDS VLDL 24 03/08 [facility] SPECIAL Hgb A1C 7.5 <=5.6 % 03/08 CHEMISTRY /2018 [facility] CARDIAC Troponin-I <0.02 0.00 - 03/08 ENZYMES 0.40 [facility] CARDIAC Troponin-I <0.02 0.00 - 03/08 ENZYMES 0.40 [facility] CARDIAC BNP 51 <=100 03/07 ENZYMES pg/mL /2018 [facility] CHEM PANEL Glucose Lvl 138 70 - 99 03/07 [facility] CHEM PANEL BUN 19 7 - 22 03/07 [facility] CHEM PANEL Creatinine 1.27 0.50 - 03/07 Lvl 1.40 [facility] CHEM PANEL Sodium Lvl 137 135 - 145 03/07 [facility] CHEM PANEL Potassium 4.0 3.5 - 5.1 03/07 Lvl [facility] CHEM PANEL Chloride Lvl 105 95 - 109 03/07 [facility] CHEM PANEL CO2 25 24 - 32 03/07 [facility] CHEM PANEL Calcium Lvl 8.8 8.5 - 10.5 03/07 [facility] CHEM PANEL eGFR 55 03/07 [facility] Comment: The [facility] eGFR is calculated using the CKD-EPI formula. In most young, healthy individuals the eGFR will be >90 mL/min/1.73m2 . The eGFR declines with age. An eGFR of 60-89 may be normal in some populations, particularly the elderly, for whom the CKD-EPI formula has not been extensively validated. Use of the eGFR is not recommended in the following populations:< br/>
Naomi viduals with unstable creatinine concentration s, including patients and those with serious co-morbid conditions.<b r/>
Patie nts with extremes in muscle mass or diet.

The data above are obtained from the National Kidney Disease Education Program (NKDEP) which additionally recommends that when the eGFR is used in patients with extremes of body mass index for purposes of drug dosing, the eGFR should be multiplied by the estimated BMI. CHEM PANEL AGAP 11.0 10.0 - 03/07 MH 20.0 [facility] HEMATOLOGY WBC 10.5 3.7 - 10.4 03/07 [facility] HEMATOLOGY RBC 4.88 4.70 - 03/07 MH 6.10 [facility] HEMATOLOGY Hgb 13.5 14.0 - 03/07 18.0 [facility] HEMATOLOGY Hct 41.4 42.0 - 03/07 54.0 [facility] HEMATOLOGY MCV 85.0 80.0 - 03/07 94.0 [facility] HEMATOLOGY MCH 27.6 27.0 - 03/07 31.0 [facility] HEMATOLOGY MCHC 32.5 32.0 - 03/07 36.0 [facility] HEMATOLOGY RDW 15.7 11.5 - 03/07 14.5 [facility] HEMATOLOGY Platelet 228 133 - 450 03/07 [facility] HEMATOLOGY MPV 6.9 7.4 - 10.4 03/07 [facility] ELECTROLYT AGAP 12.7 10.0 - 05/18 ES 20. [facility] ELECTROLYT Calcium Lvl 8.1 8.5 - 10.5 05/18 [facility] ELECTROLYT Chloride Lvl 104 95 - 109 05/18 ES [facility] ELECTROLYT Sodium Lvl 140 135 - 145 05/18 [facility] ELECTROLYT Potassium 4.7 3.5 - 5.1 05/18 ES Lvl [facility] ELECTROLYT eGFR 70 05/18 Result Comment: The [facility] eGFR is City calculated using the CKD-EPI formula. In most young, healthy individuals the eGFR will be >90 mL/min/1.73m2 . The eGFR declines with age. An eGFR of 60-89 may be normal in some populations, particularly the elderly, for whom the CKD-EPI formula has not been extensively validated. Use of the eGFR is not recommended in the following populations:< br/>
Naomi viduals with unstable creatinine concentration s, including patients and those with serious co-morbid conditions.<b r/>
Patie nts with extremes in muscle mass or diet.

The data above are obtained from the National Kidney Disease Education Program (NKDEP) which additionally recommends that when the eGFR is used in patients with extremes of body mass index for purposes of drug dosing, the eGFR should be multiplied by the estimated BMI. ELECTROLYT Creatinine 1.04 0.50 - 05/18 ES Lvl 1.40 /2018 [facility] ELECTROLYT Glucose Lvl 126 70 - 99 05/18 [facility] ELECTROLYT CO2 28 24 - 32 05/18 [facility] ELECTROLYT BUN 17 7 - 22 05/18 ES [facility] HEMATOLOGY Lymphocytes 7.9 20.0 - 05/18 MH 40.0 [facility] HEMATOLOGY Segs 86.8 45.0 - 05/18 MH 75.0 [facility] HEMATOLOGY Basophils 0.2 0.0 - 1.0 05/18 [facility] HEMATOLOGY Monocytes 5.1 2.0 - 12.0 05/18 [facility] HEMATOLOGY Neutrophils 11.8 1.5 - 8.1 05/18 MH # /2019 [facility] HEMATOLOGY Lymphocytes 1.1 1.0 - 5.5 05/18 # /2018 [facility] HEMATOLOGY Monocytes # 0.7 0.0 - 0.8 05/18 [facility] HEMATOLOGY MPV 7.2 7.4 - 10.4 05/18 [facility] HEMATOLOGY RBC 4.05 4.70 - 05/18 MH 6.10 [facility] HEMATOLOGY WBC 13.6 3.7 - 10.4 05/18 [facility] HEMATOLOGY Hct 33.1 42.0 - 05/18 MH 54.0 [facility] HEMATOLOGY Hgb 10.6 14.0 - 05/18 MH 18.0 [facility] HEMATOLOGY MCHC 32.1 32.0 - 05/18 MH 36.0 [facility] HEMATOLOGY MCH 26.3 27.0 - 05/18 MH 31.0 [facility] HEMATOLOGY RDW 16.5 11.5 - 05/18 MH 14.5 /2018 [facility] HEMATOLOGY Platelet 201 133 - 450 05/18 [facility] HEMATOLOGY MCV 81.8 80.0 - 05/18 MH 94.0 /2018 [facility] HEMATOLOGY POC 13.9 14.0 - 05/17 Hemoglobin 18.0 /2018 [facility] POC Ion Ca 1.23 1.05 - 05/17 MH 1.25 /2018 [facility] HEMATOLOGY POC 41.0 42.0 - 05/17 Hematocrit 54.0 /2018 [facility] HEMATOLOGY POC AGAP 16.0 10.0 - 05/17 MH 20.0 [facility] HEMATOLOGY eGFR 83 05/17 Result Comment: The [facility] eGFR is City calculated using the CKD-EPI formula. In most young, healthy individuals the eGFR will be >90 mL/min/1.73m2 . The eGFR declines with age. An eGFR of 60-89 may be normal in some populations, particularly the elderly, for whom the CKD-EPI formula has not been extensively validated. Use of the eGFR is not recommended in the following populations:< br/>
Naomi viduals with unstable creatinine concentration s, including patients and those with serious co-morbid conditions.<b r/>
Patie nts with extremes in muscle mass or diet.

The data above are obtained from the National Kidney Disease Education Program (NKDEP) which additionally recommends that when the eGFR is used in patients with extremes of body mass index for purposes of drug dosing, the eGFR should be multiplied by the estimated BMI. HEMATOLOGY POC Carbon 26 24 - 32 05/17 MH Dioxide [facility] HEMATOLOGY POC BUN 12 7 - 22 05/17 [facility] HEMATOLOGY POC 0.9 0.5 - 1.4 05/17 Creatinine [facility] HEMATOLOGY POC Glucose 117 70 - 99 05/17 [facility] HEMATOLOGY POC Sodium 140 135 - 145 05/17 [facility] HEMATOLOGY POC 4.4 3.5 - 5.1 05/17 Potassium [facility] HEMATOLOGY POC Chloride 103 95 - 109 05/17 [facility] CHEM PANEL eGFR 65 05/02 Result Comment: The [facility] eGFR is calculated using the CKD-EPI formula. In most young, healthy individuals the eGFR will be >90 mL/min/1.73m2 . The eGFR declines with age. An eGFR of 60-89 may be normal in some populations, particularly the elderly, for whom the CKD-EPI formula has not been extensively validated. Use of the eGFR is not recommended in the following populations:< br/>
Naomi viduals with unstable creatinine concentration s, including patients and those with serious co-morbid conditions.<b r/>
Patie nts with extremes in muscle mass or diet.

The data above are obtained from the National Kidney Disease Education Program (NKDEP) which additionally recommends that when the eGFR is used in patients with extremes of body mass index for purposes of drug dosing, the eGFR should be multiplied by the estimated BMI. CHEM PANEL POC 1.1 0.5 - 1.4 05/02 Creatinine /2018 [facility] REFERENCE Test Name BROAD 05/22 LAB RANGE PCR /2017 [facility] RESULTS [facility] REFERENCE [facility] SEE 05/22 Result LAB COMMENT Comment: [facility] RESULTS Specimen City Description Tissue
Shoulder

Culture Streptococcus gordonii DNA detected with 16S rRNA gene primer set.
Analytical sensitivities (genome): 16S = 100. Analytical sensitivities or
minimal detection limits are expressed in copies of bacterial or fungal
genomic DNA in a single amplification reaction performed on purified
DNA. Sensitivity of detecting microbial DNA from a tissue or fluid sample
will vary depending on the organism load in the sample submitted to
our lab for testing, pretreatment such as formaldehyde fixation or
staining, or any microorganism s or microbial DNA into the sample submitted<br/ > for testing. This test was developed by the Department of Laboratory
Medicine, [facility].<b r/>
Repor t Status Final 05/29/2017

T esting performed at:
[facility]
[address], [address] [facility], [address] CHEM PANEL eGFR 87 05/18 Result Comment: The [facility] eGFR is City calculated using the CKD-EPI formula. In most young, healthy individuals the eGFR will be >90 mL/min/1.73m2 . The eGFR declines with age. An eGFR of 60-89 may be normal in some populations, particularly the elderly, for whom the CKD-EPI formula has not been extensively validated. Use of the eGFR is not recommended in the following populations:< br/>
Naomi viduals with unstable creatinine concentration s, including patients and those with serious co-morbid conditions.<b r/>
Patie nts with extremes in muscle mass or diet.

The data above are obtained from the National Kidney Disease Education Program (NKDEP) which additionally recommends that when the eGFR is used in patients with extremes of body mass index for purposes of drug dosing, the eGFR should be multiplied by the estimated BMI. CHEM PANEL ALT 10 0 - 65 05/18 [facility] CHEM PANEL Creatinine 0.82 0.50 - 05/18 MH Lvl 1.40 /2017 [facility] CHEM PANEL AST 7 0 - 37 05/18 [facility] CHEM PANEL BUN 6 7 - 22 05/18 [facility] CHEM PANEL Glucose Lvl 134 70 - 99 05/18 [facility] CHEM PANEL Potassium 3.7 3.5 - 5.1 05/18 MH Lvl [facility] CHEM PANEL Sodium Lvl 141 135 - 145 05/18 [facility] CHEM PANEL Albumin Lvl 2.7 3.5 - 5.0 05/18 [facility] CHEM PANEL Calcium Lvl 8.3 8.5 - 10.5 05/18 [facility] CHEM PANEL CO2 28 24 - 32 05/18 [facility] CHEM PANEL Chloride Lvl 105 95 - 109 05/18 [facility] CHEM PANEL Bili Total 1.1 0.2 - 1.3 05/18 [facility] CHEM PANEL Alk Phos 85 39 - 136 05/18 [facility] CHEM PANEL Total 5.9 6.4 - 8.4 05/18 Protein [facility] CHEM PANEL B/C Ratio 7 6 - 25 05/18 [facility] CHEM PANEL AGAP 11.7 10.0 - 02 MH 20.0 /2017 [facility] CHEM PANEL A/G Ratio 0.8 0.7 - 1.6 05/18 [facility] CHEM PANEL Globulin 3.2 2.7 - 4.2 05/18 /2017 [facility] HEMATOLOGY Monocytes 6.7 2.0 - 12.0 05/18 [facility] HEMATOLOGY Eosinophils 1.7 0.0 - 4.0 05/18 /2017 [facility] HEMATOLOGY Segs 73.3 45.0 - 05/18 MH 75.0 /2017 [facility] HEMATOLOGY Lymphocytes 17.8 20.0 - 05/18 MH 40.0 [facility] HEMATOLOGY Lymphocytes 1.5 1.0 - 5.5 05/18 MH # /2017 [facility] HEMATOLOGY Basophils 0.5 0.0 - 1.0 05/18 [facility] HEMATOLOGY Segs-Bands # 6.0 1.5 - 8.1 05/18 [facility] HEMATOLOGY Monocytes # 0.6 0.0 - 0.8 05/18 [facility] HEMATOLOGY Microcyte 1+ None Seen 05/18 *ABN* /2017 [facility] (05/18/17 6:00 AM) [facility] HEMATOLOGY Eosinophils 0.1 0.0 - 0.5 05/18 # /2017 [facility] HEMATOLOGY MPV 7.0 7.4 - 10.4 05/18 [facility] HEMATOLOGY Platelet 317 133 - 450 05/18 [facility] HEMATOLOGY WBC 8.2 3.7 - 10.4 05/18 [facility] HEMATOLOGY Hgb 9.6 14.0 - 05/18 18.0 [facility] HEMATOLOGY Hct 29.0 42.0 - 05/18 MH 54.0 [facility] HEMATOLOGY RBC 3.79 4.70 - 05/18 6.10 [facility] HEMATOLOGY RDW 15.5 11.5 - 05/18 MH 14.5 [facility] HEMATOLOGY MCHC 33.0 32.0 - 05/18 MH 36.0 [facility] HEMATOLOGY MCV 76.5 80.0 - 05/18 94.0 [facility] HEMATOLOGY MCH 25.3 27.0 - 05/18 MH 31.0 [facility] CHEM PANEL Procalcitoni <0.05 0.00 - 05/17 n Lvl 0. [facility] CHEM PANEL Procalcitoni <0.05 0.00 - 05/16 n Lvl ng/mL 0. [facility] CHEM PANEL Globulin 2.7 2.7 - 4.2 05/16 [facility] CHEM PANEL A/G Ratio 1.0 0.7 - 1.6 05/16 [facility] CHEM PANEL B/C Ratio 13 6 - 25 05/16 [facility] CHEM PANEL AGAP 15.3 10.0 - 02 MH 20.0 [facility] CHEM PANEL Bili Total 0.4 0.2 - 1.3 05/16 [facility] CHEM PANEL Alk Phos 91 39 - 136 05/16 [facility] CHEM PANEL Total 5.5 6.4 - 8.4 05/16 Protein [facility] CHEM PANEL eGFR 82 05/16 Result Comment: The [facility] eGFR is City calculated using the CKD-EPI formula. In most young, healthy individuals the eGFR will be >90 mL/min/1.73m2 . The eGFR declines with age. An eGFR of 60-89 may be normal in some populations, particularly the elderly, for whom the CKD-EPI formula has not been extensively validated. Use of the eGFR is not recommended in the following populations:< br/>
Naomi viduals with unstable creatinine concentration s, including patients and those with serious co-morbid conditions.<b r/>
Patie nts with extremes in muscle mass or diet.

The data above are obtained from the National Kidney Disease Education Program (NKDEP) which additionally recommends that when the eGFR is used in patients with extremes of body mass index for purposes of drug dosing, the eGFR should be multiplied by the estimated BMI. CHEM PANEL AST 11 0 - 37 05/16 [facility] CHEM PANEL ALT 12 0 - 65 05/16 [facility] CHEM PANEL Creatinine 0.92 0.50 - 05/16 Lvl 1.40 [facility] CHEM PANEL Glucose Lvl 125 70 - 99 05/16 [facility] CHEM PANEL BUN 12 7 - 22 05/16 [facility] CHEM PANEL Sodium Lvl 141 135 - 145 05/16 [facility] CHEM PANEL Chloride Lvl 103 95 - 109 05/16 [facility] CHEM PANEL Potassium 4.3 3.5 - 5.1 05/16 Lvl [facility] CHEM PANEL Albumin Lvl 2.8 3.5 - 5.0 05/16 [facility] CHEM PANEL CO2 27 24 - 32 05/16 [facility] CHEM PANEL Calcium Lvl 7.7 8.5 - 10.5 05/16 [facility] HEMATOLOGY RBC 3.80 4.70 - 05/16 MH 6.10 /2017 [facility] HEMATOLOGY WBC 8.8 3.7 - 10.4 05/16 [facility] HEMATOLOGY MCHC 33.8 32.0 - 05/16 MH 36.0 [facility] HEMATOLOGY MCH 25.8 27.0 - 05/16 MH 31.0 /2017 [facility] HEMATOLOGY MCV 76.4 80.0 - 05/16 94.0 /2017 [facility] HEMATOLOGY Hgb 9.8 14.0 - 05/16 18.0 [facility] HEMATOLOGY Hct 29.1 42.0 - 05/16 54.0 /2017 [facility] HEMATOLOGY MPV 6.8 7.4 - 10.4 05/16 [facility] HEMATOLOGY Platelet 293 133 - 450 05/16 [facility] HEMATOLOGY RDW 16.0 11.5 - 05/16 14.5 [facility] HEMATOLOGY Eosinophils 1.8 0.0 - 4.0 05/16 [facility] HEMATOLOGY Monocytes 6.3 2.0 - 12.0 05/16 [facility] HEMATOLOGY Basophils 0.6 0.0 - 1.0 05/16 [facility] HEMATOLOGY Lymphocytes 1.7 1.0 - 5.5 05/16 # /2017 [facility] HEMATOLOGY Segs-Bands # 6.4 1.5 - 8.1 05/16 [facility] HEMATOLOGY Monocytes # 0.6 0.0 - 0.8 05/16 [facility] HEMATOLOGY Basophils # 0.1 0.0 - 0.2 05/16 [facility] HEMATOLOGY Eosinophils 0.2 0.0 - 0.5 05/16 /2017 [facility] HEMATOLOGY Microcyte 1+ None Seen 05/16 *ABN* /2017 [facility] (05/16/17 4:15 AM) [facility] HEMATOLOGY Segs 72.3 45.0 - 05/16 MH 75.0 /2017 [facility] HEMATOLOGY Lymphocytes 19.0 20.0 - 05/16 MH 40.0 /2017 [facility] IMMUNOLOGY Anti-dnase B <78 0 - 120 05/16 Result Comment: [facility] Results City verified by repeat testing<br/ >Limit of assay detection is <78
Perfo rmed At: [facility]
[address] [place], [place] [id number]< br/>Amira Woo MD Ph:[phone] IMMUNOLOGY ASO <12 0 - 408 05/16 [facility] TOXICOLOGY Vanco Tr TND 0430 05/16 [facility] TOXICOLOGY Vanco Tr 12.5 05/16 [facility] HEMATOLOGY Lymphocytes 2.1 1.0 - 5.5 05/16 # /2017 [facility] HEMATOLOGY Segs-Bands # 7.0 1.5 - 8.1 05/16 [facility] HEMATOLOGY Basophils # 0.1 0.0 - 0.2 05/16 [facility] HEMATOLOGY Eosinophils 0.2 0.0 - 0.5 05/16 [facility] HEMATOLOGY Monocytes # 0.7 0.0 - 0.8 05/16 [facility] HEMATOLOGY Microcyte 1+ None Seen 05/16 MH *ABN* /2017 [facility] (05/15/17 10:12 PM) [facility] HEMATOLOGY Segs 70.1 45.0 - 05/16 MH 75.0 [facility] HEMATOLOGY Basophils 0.6 0.0 - 1.0 05/16 [facility] HEMATOLOGY Eosinophils 1.5 0.0 - 4.0 05/16 [facility] HEMATOLOGY Monocytes 6.7 2.0 - 12.0 05/16 [facility] HEMATOLOGY Lymphocytes 21.1 20.0 - 05/16 MH 40.0 [facility] HEMATOLOGY MPV 7.0 7.4 - 10.4 05/16 [facility] HEMATOLOGY MCH 25.4 27.0 - 05/16 MH 31.0 [facility] HEMATOLOGY MCV 77.3 80.0 - 05/16 MH 94.0 [facility] HEMATOLOGY Platelet 320 133 - 450 05/16 [facility] HEMATOLOGY RDW 15.8 11.5 - 05/16 MH 14.5 [facility] HEMATOLOGY MCHC 32.8 32.0 - 05/16 MH 36.0 [facility] HEMATOLOGY RBC 3.91 4.70 - 02/21 MH 6.10 [facility] HEMATOLOGY Hgb 9.9 14.0 - 05/16 MH 18.0 [facility] HEMATOLOGY WBC 10.1 3.7 - 10.4 05/16 MH [facility] HEMATOLOGY Hct 30.2 42.0 - 05/16 MH 54.0 /2017 [facility] CHEM PANEL eGFR 66 05/15 Result Comment: The [facility] eGFR is City calculated using the CKD-EPI formula. In most young, healthy individuals the eGFR will be >90 mL/min/1.73m2 . The eGFR declines with age. An eGFR of 60-89 may be normal in some populations, particularly the elderly, for whom the CKD-EPI formula has not been extensively validated. Use of the eGFR is not recommended in the following populations:< br/>
Naomi viduals with unstable creatinine concentration s, including patients and those with serious co-morbid conditions.<b r/>
Patie nts with extremes in muscle mass or diet.

The data above are obtained from the National Kidney Disease Education Program (NKDEP) which additionally recommends that when the eGFR is used in patients with extremes of body mass index for purposes of drug dosing, the eGFR should be multiplied by the estimated BMI. CHEM PANEL POC BUN 12 7 - 22 05/15 [facility] CHEM PANEL POC Chloride 101 95 - 109 05/15 [facility] CHEM PANEL POC 1.1 0.5 - 1.4 05/15 Creatinine /2017 [facility] CHEM PANEL POC 50.0 42.0 - 05/15 MH Hematocrit 54.0 [facility] CHEM PANEL POC Carbon 26 24 - 32 05/15 MH Dioxide [facility] CHEM PANEL POC Glucose 156 70 - 99 05/15 [facility] CHEM PANEL POC 17.0 14.0 - 05/15 MH Hemoglobin 18.0 [facility] CHEM PANEL POC Ion Ca 1.20 1.05 - 02 MH 1.25 [facility] CHEM PANEL POC AGAP 17.0 10.0 - 05/15 MH 20.0 [facility] CHEM PANEL POC 3.9 3.5 - 5.1 05/15 MH Potassium [facility] CHEM PANEL POC Sodium 140 135 - 145 05/15 [facility] HEMATOLOGY Sed Rate 36 0 - 15 05/15 [facility] IMMUNOLOGY C-REACTIVE 62.7 <=2.9 mg/L 05/15 PROTEIN [facility] CHEM PANEL eGFR 85 05/06 Result Comment: [facility] eGFR is City calculated using the CKD-EPI formula. In most young, healthy individuals the eGFR will be >90 mL/min/1.73m2 . The eGFR declines with age. An eGFR of 60-89 may be normal in some populations, particularly the elderly, for whom the CKD-EPI formula has not been extensively validated. Use of the eGFR is not recommended in the following populations:< br/>
Naomi viduals with unstable creatinine concentration s, including patients and those with serious co-morbid conditions.<b r/>
Patie nts with extremes in muscle mass or diet.

The data above are obtained from the National Kidney Disease Education Program (NKDEP) which additionally recommends that when the eGFR is used in patients with extremes of body mass index for purposes of drug dosing, the eGFR should be multiplied by the estimated BMI. CHEM PANEL B/C Ratio 10 6 - 25 05/06 [facility] CHEM PANEL AGAP 11.7 10.0 - 02 MH 20.0 [facility] CHEM PANEL AST 15 0 - 37 05/06 [facility] CHEM PANEL Albumin Lvl 2.7 3.5 - 5.0 05/06 [facility] CHEM PANEL ALT 22 0 - 65 05/06 [facility] CHEM PANEL Creatinine 0.86 0.50 - 05/06 Lvl 1.40 [facility] CHEM PANEL BUN 9 7 - 22 05/06 [facility] CHEM PANEL Glucose Lvl 184 70 - 99 05/06 [facility] CHEM PANEL CO2 28 24 - 32 05/06 [facility] CHEM PANEL Sodium Lvl 142 135 - 145 05/06 [facility] CHEM PANEL Potassium 3.7 3.5 - 5.1 05/06 Lvl [facility] CHEM PANEL Calcium Lvl 7.9 8.5 - 10.5 05/06 [facility] CHEM PANEL Chloride Lvl 106 95 - 109 05/06 [facility] CHEM PANEL A/G Ratio 0.8 0.7 - 1.6 05/06 [facility] CHEM PANEL Globulin 3.3 2.7 - 4.2 05/06 [facility] CHEM PANEL Total 6.0 6.4 - 8.4 05/06 MH Protein [facility] CHEM PANEL Alk Phos 103 39 - 136 05/06 [facility] CHEM PANEL Bili Total 0.2 0.2 - 1.3 05/06 [facility] HEMATOLOGY Monocytes 6.7 2.0 - 12.0 05/06 [facility] HEMATOLOGY Eosinophils 1.6 0.0 - 4.0 05/06 [facility] HEMATOLOGY Lymphocytes 17.4 20.0 - 05/06 MH 40.0 /2017 [facility] HEMATOLOGY Segs-Bands # 6.9 1.5 - 8.1 05/06 [facility] HEMATOLOGY Basophils 1.2 0.0 - 1.0 05/06 [facility] HEMATOLOGY Monocytes # 0.6 0.0 - 0.8 05/06 [facility] HEMATOLOGY Lymphocytes 1.6 1.0 - 5.5 05/06 # /2017 [facility] HEMATOLOGY Eosinophils 0.2 0.0 - 0.5 05/06 # /2018 [facility] HEMATOLOGY Basophils # 0.1 0.0 - 0.2 05/06 [facility] HEMATOLOGY Microcyte 1+ None Seen 05/06 *ABN* /2017 [facility] (05/06/17 12:09 PM) [facility] HEMATOLOGY Segs 73.1 45.0 - 05/06 MH 75.0 [facility] HEMATOLOGY WBC 9.5 3.7 - 10.4 05/06 [facility] HEMATOLOGY Hct 33.2 42.0 - 05/06 54.0 [facility] HEMATOLOGY RBC 4.26 4.70 - 05/06 MH 6.10 /2017 [facility] HEMATOLOGY Hgb 10.9 14.0 - 05/06 MH 18.0 [facility] HEMATOLOGY MCH 25.6 27.0 - 05/06 MH 31.0 [facility] HEMATOLOGY MCV 77.7 80.0 - 05/06 94.0 [facility] HEMATOLOGY Platelet 272 133 - 450 05/06 [facility] HEMATOLOGY MPV 6.7 7.4 - 10.4 05/06 [facility] HEMATOLOGY MCHC 33.0 32.0 - 05/06 MH 36.0 [facility] HEMATOLOGY RDW 15.8 11.5 - 05/06 MH 14.5 /2017 [facility] IMMUNOLOGY C-REACTIVE 40.6 <=2.9 mg/L 05/06 PROTEIN [facility] CHEM PANEL Glucose Lvl 146 70 - 99 05/04 [facility] CHEM PANEL Sodium Lvl 142 135 - 145 05/04 [facility] CHEM PANEL Chloride Lvl 104 95 - 109 05/04 [facility] CHEM PANEL Potassium 4.1 3.5 - 5.1 05/04 MH Lvl /2017 [facility] CHEM PANEL BUN 12 7 - 22 05/04 [facility] CHEM PANEL CO2 29 24 - 32 05/04 [facility] CHEM PANEL Calcium Lvl 8.5 8.5 - 10.5 05/04 [facility] CHEM PANEL eGFR 87 05/04 Result Comment: [facility] eGFR is City calculated using the CKD-EPI formula. In most young, healthy individuals the eGFR will be >90 mL/min/1.73m2 . The eGFR declines with age. An eGFR of 60-89 may be normal in some populations, particularly the elderly, for whom the CKD-EPI formula has not been extensively validated. Use of the eGFR is not recommended in the following populations:< br/>
Naomi viduals with unstable creatinine concentration s, including patients and those with serious co-morbid conditions.<b r/>
Patie nts with extremes in muscle mass or diet.

The data above are obtained from the National Kidney Disease Education Program (NKDEP) which additionally recommends that when the eGFR is used in patients with extremes of body mass index for purposes of drug dosing, the eGFR should be multiplied by the estimated BMI. CHEM PANEL Creatinine 0.81 0.50 - 02 MH Lvl 1.40 /2018 [facility] CHEM PANEL AGAP 13.1 10.0 - 02 MH 20.0 [facility] HEMATOLOGY Basophils 0.7 0.0 - 1.0 05/04 [facility] HEMATOLOGY Segs-Bands # 5.7 1.5 - 8.1 05/04 [facility] HEMATOLOGY Eosinophils 0.1 0.0 - 0.5 05/04 MH # /2018 [facility] HEMATOLOGY Lymphocytes 1.7 1.0 - 5.5 05/04 MH # /2018 [facility] HEMATOLOGY Basophils # 0.1 0.0 - 0.2 05/04 [facility] HEMATOLOGY Microcyte 1+ None Seen 05/04 *ABN* /2017 [facility] (05/04/17 5:26 AM) [facility] HEMATOLOGY Monocytes 7.5 2.0 - 12.0 05/04 [facility] HEMATOLOGY Eosinophils 1.0 0.0 - 4.0 05/04 [facility] HEMATOLOGY Monocytes # 0.6 0.0 - 0.8 05/04 [facility] HEMATOLOGY Lymphocytes 21.0 20.0 - 05/04 MH 40.0 [facility] HEMATOLOGY Segs 69.8 45.0 - 05/04 MH 75.0 [facility] HEMATOLOGY RBC 4.15 4.70 - 05/04 MH 6.10 [facility] HEMATOLOGY WBC 8.1 3.7 - 10.4 05/04 [facility] HEMATOLOGY Hct 32.3 42.0 - 05/04 MH 54.0 [facility] HEMATOLOGY Hgb 10.6 14.0 - 05/04 MH 18.0 [facility] HEMATOLOGY MCV 77.7 80.0 - 05/04 MH 94.0 [facility] HEMATOLOGY RDW 15.9 11.5 - 05/04 MH 14.5 [facility] HEMATOLOGY Platelet 296 133 - 450 05/04 [facility] HEMATOLOGY MCH 25.5 27.0 - 05/04 MH 31.0 [facility] HEMATOLOGY MCHC 32.8 32.0 - 05/04 MH 36.0 [facility] HEMATOLOGY MPV 6.7 7.4 - 10.4 05/04 [facility] TOXICOLOGY Vanco Tr TND 2000 05/04 [facility] TOXICOLOGY Vanco Tr 10.5 05/04 [facility] CHEM PANEL eGFR 78 05/02 Result Comment: [facility] eGFR is City calculated using the CKD-EPI formula. In most young, healthy individuals the eGFR will be >90 mL/min/1.73m2 . The eGFR declines with age. An eGFR of 60-89 may be normal in some populations, particularly the elderly, for whom the CKD-EPI formula has not been extensively validated. Use of the eGFR is not recommended in the following populations:< br/>
Naomi viduals with unstable creatinine concentration s, including patients and those with serious co-morbid conditions.<b r/>
Patie nts with extremes in muscle mass or diet.

The data above are obtained from the National Kidney Disease Education Program (NKDEP) which additionally recommends that when the eGFR is used in patients with extremes of body mass index for purposes of drug dosing, the eGFR should be multiplied by the estimated BMI. CHEM PANEL Creatinine 0.96 0.50 - 02 MH Lvl 1.40 /2017 [facility] CHEM PANEL Potassium 4.9 3.5 - 5.1 05/02 MH Lvl /2017 [facility] CHEM PANEL Chloride Lvl 104 95 - 109 05/02 [facility] CHEM PANEL CO2 29 24 - 32 05/02 [facility] CHEM PANEL Calcium Lvl 8.6 8.5 - 10.5 05/02 [facility] CHEM PANEL Sodium Lvl 142 135 - 145 05/02 [facility] CHEM PANEL BUN 17 7 - 22 05/02 [facility] CHEM PANEL Glucose Lvl 152 70 - 99 05/02 [facility] CHEM PANEL AGAP 13.9 10.0 - 05/02 MH 20.0 [facility] HEMATOLOGY Platelet 329 133 - 450 05/02 [facility] HEMATOLOGY MPV 7.0 7.4 - 10.4 05/02 [facility] HEMATOLOGY RDW 15.7 11.5 - 05/02 MH 14.5 [facility] HEMATOLOGY MCH 25.4 27.0 - 02 MH 31.0 [facility] HEMATOLOGY MCHC 32.0 32.0 - 05/02 MH 36.0 [facility] HEMATOLOGY Hct 33.7 42.0 - 05/02 MH 54.0 [facility] HEMATOLOGY Hgb 10.8 14.0 - 02 MH 18.0 [facility] HEMATOLOGY RBC 4.25 4.70 - 02 MH 6.10 [facility] HEMATOLOGY MCV 79.2 80.0 - 05/02 MH 94.0 [facility] HEMATOLOGY WBC 12.8 3.7 - 10.4 05/02 [facility] HEMATOLOGY Monocytes 6.0 2.0 - 12.0 05/02 [facility] HEMATOLOGY Lymphocytes 9.9 20.0 - 02 MH 40.0 [facility] HEMATOLOGY Basophils 0.3 0.0 - 1.0 05/02 [facility] HEMATOLOGY Segs-Bands # 10.7 1.5 - 8.1 05/02 [facility] HEMATOLOGY Lymphocytes 1.3 1.0 - 5.5 05/02 MH # /2018 [facility] HEMATOLOGY Monocytes # 0.8 0.0 - 0.8 05/02 [facility] HEMATOLOGY Segs 83.8 45.0 - 02 MH 75.0 [facility] IMMUNOLOGY C-REACTIVE 104.0 <=2.9 mg/L 05/01 MH [facility] HEMATOLOGY Sed Rate 40 0 - 15 05/01 [facility] CHEM PANEL eGFR 84 04/13 Result Comment: [facility] eGFR is City calculated using the CKD-EPI formula. In most young, healthy individuals the eGFR will be >90 mL/min/1.73m2 . The eGFR declines with age. An eGFR of 60-89 may be normal in some populations, particularly the elderly, for whom the CKD-EPI formula has not been extensively validated. Use of the eGFR is not recommended in the following populations:< br/>
Naomi viduals with unstable creatinine concentration s, including patients and those with serious co-morbid conditions.<b r/>
Patie nts with extremes in muscle mass or diet.

The data above are obtained from the National Kidney Disease Education Program (NKDEP) which additionally recommends that when the eGFR is used in patients with extremes of body mass index for purposes of drug dosing, the eGFR should be multiplied by the estimated BMI. CHEM PANEL POC 4.4 3.5 - 5.1 04/13 MH Potassium [facility] CHEM PANEL POC Sodium 139 135 - 145 04/13 [facility] CHEM PANEL POC Glucose 108 70 - 99 04/13 [facility] CHEM PANEL POC AGAP 16.0 10.0 - 04/13 MH 20.0 [facility] CHEM PANEL POC 44.0 42.0 - 04/13 MH Hematocrit 54.0 [facility] CHEM PANEL POC 15.0 14.0 - 04/13 Hemoglobin 18.0 [facility] CHEM PANEL POC Ion Ca 1.20 1.05 - 04/13 MH 1.25 [facility] CHEM PANEL POC Chloride 100 95 - 109 04/13 [facility] CHEM PANEL POC 0.9 0.5 - 1.4 04/13 Creatinine /2017 [facility] CHEM PANEL POC BUN 16 7 - 22 04/13 [facility] CHEM PANEL POC Carbon 29 24 - 32 04/13 Dioxide [facility] ELECTROLYT AGAP 12.4 10.0 - 01/27 ES 20.0 /2016 [facility] ELECTROLYT eGFR 67 01/27 Result ES Comment: [facility] eGFR is City calculated using the CKD-EPI formula. In most young, healthy individuals the eGFR will be >90 mL/min/1.73m2 . The eGFR declines with age. An eGFR of 60-89 may be normal in some populations, particularly the elderly, for whom the CKD-EPI formula has not been extensively validated. Use of the eGFR is not recommended in the following populations:< br/>
Naomi viduals with unstable creatinine concentration s, including patients and those with serious co-morbid conditions.<b r/>
Patie nts with extremes in muscle mass or diet.

The data above are obtained from the National Kidney Disease Education Program (NKDEP) which additionally recommends that when the eGFR is used in patients with extremes of body mass index for purposes of drug dosing, the eGFR should be multiplied by the estimated BMI. ELECTROLYT Glucose Lvl 123 70 - 99 01/27 ES [facility] ELECTROLYT Creatinine 1.08 0.50 - 01/27 ES Lvl 1.40 /2016 [facility] ELECTROLYT BUN 15 7 - 22 01/27 ES [facility] ELECTROLYT Sodium Lvl 141 135 - 145 01/27 ES [facility] ELECTROLYT Calcium Lvl 8.2 8.5 - 10.5 01/27 ES [facility] ELECTROLYT Chloride Lvl 106 95 - 109 01/27 ES [facility] ELECTROLYT CO2 27 24 - 32 01/27 ES [facility] ELECTROLYT Potassium 4.4 3.5 - 5.1 01/27 ES Lvl [facility] HEMATOLOGY WBC 10.4 3.7 - 10.4 01/27 [facility] HEMATOLOGY MCV 81.0 80.0 - 01/27 94.0 [facility] HEMATOLOGY Hct 34.1 42.0 - 01/27 MH 54.0 [facility] MCH 26.9 27.0 - 11 MH 31.0 /2016 [facility] HEMATOLOGY Hgb 11.3 14.0 - 01/27 MH 18.0 [facility] HEMATOLOGY RBC 4.20 4.70 - 01/27 MH 6.10 [facility] HEMATOLOGY MPV 6.7 7.4 - 10.4 01/27 [facility] Platelet 185 133 - 450 01/27 [facility] HEMATOLOGY RDW 16.1 11.5 - 01/27 MH 14. [facility] HEMATOLOGY MCHC 33.2 32.0 - 01/27 MH 36.0 [facility] HEMATOLOGY Eosinophils 1.0 0.0 - 4.0 01/27 [facility] HEMATOLOGY Segs-Bands # 7.4 1.5 - 8.1 01/27 [facility] Basophils 1.0 0.0 - 1.0 01/27 [facility] Lymphocytes 19.6 20.0 - 01/27 MH 40.0 [facility] HEMATOLOGY Segs 71.7 45.0 - 01/27 MH 75.0 [facility] Monocytes 6.7 2.0 - 12.0 01/27 [facility] HEMATOLOGY Monocytes # 0.7 0.0 - 0.8 01/27 [facility] Lymphocytes 2.0 1.0 - 5.5 01/27 MH /2016 [facility] HEMATOLOGY Eosinophils 0.1 0.0 - 0.5 01/27 MH # /2016 [facility] HEMATOLOGY Basophils # 0.1 0.0 - 0.2 01/27 [facility] BACTERIAL MRSA by PCR Negative 01/22 - [facility]OLOG[facility] (01/22/17 11:36 AM) /2016 [facility] CHEM PANEL Albumin Lvl 3.9 3.5 - 5.0 01/22 [facility] CHEM PANEL Glucose Lvl 126 70 - 99 01/22 [facility] CHEM PANEL eGFR 70 01/22 Result Comment: [facility] eGFR is City calculated using the CKD-EPI formula. In most young, healthy individuals the eGFR will be >90 mL/min/1.73m2 . The eGFR declines with age. An eGFR of 60-89 may be normal in some populations, particularly the elderly, for whom the CKD-EPI formula has not been extensively validated. Use of the eGFR is not recommended in the following populations:< br/>
Naomi viduals with unstable creatinine concentration s, including patients and those with serious co-morbid conditions.<b r/>
Patie nts with extremes in muscle mass or diet.

The data above are obtained from the National Kidney Disease Education Program (NKDEP) which additionally recommends that when the eGFR is used in patients with extremes of body mass index for purposes of drug dosing, the eGFR should be multiplied by the estimated BMI. CHEM PANEL Creatinine 1.04 0.50 - 01/22 MH Lvl 1.40 /2016 [facility] CHEM PANEL BUN 16 7 - 22 01/22 [facility] ELECTROLYT Sodium Lvl 140 135 - 145 01/22 ES [facility] ELECTROLYT Potassium 3.6 3.5 - 5.1 01/22 ES Lvl [facility] HEMATOLOGY MPV 7.1 7.4 - 10.4 01/22 [facility] HEMATOLOGY Platelet 224 133 - 450 01/22 [facility] HEMATOLOGY MCV 81.2 80.0 - 01/22 MH 94.0 [facility] HEMATOLOGY RDW 16.0 11.5 - 01/22 MH 14. [facility] HEMATOLOGY MCHC 32.7 32.0 - 01/22 MH 36.0 [facility] HEMATOLOGY MCH 26.6 27.0 - 01/22 MH 31.0 [facility] HEMATOLOGY Hct 41.9 42.0 - 01/22 MH 54.0 [facility] HEMATOLOGY Hgb 13.7 14.0 - 01/22 MH 18.0 [facility] HEMATOLOGY RBC 5.15 4.70 - 01/22 MH 6.10 [facility] HEMATOLOGY WBC 10.7 3.7 - 10.4 01/22 [facility] CHEM PANEL A/G Ratio 0.7 0.7 - 1.6 03/20 [facility] CHEM PANEL Globulin 3.5 2.7 - 4.2 03/20 [facility] /2015 CHEM PANEL B/C Ratio 5 6 - 25 03/20 [facility] /2015 CHEM PANEL AGAP 14.7 10.0 - 03/20 [facility] 20.0 CHEM PANEL eGFR 90 03/20 [facility] /2015 Comment: The eGFR is calculated using the CKD-EPI formula. In most young, healthy individuals the eGFR will be >90 mL/min/1.73m2 . The eGFR declines with age. An eGFR of 60-89 may be normal in some populations, particularly the elderly, for whom the CKD-EPI formula has not been extensively validated. Use of the eGFR is not recommended in the following populations:< br/>
Naomi viduals with unstable creatinine concentration s, including patients and those with serious co-morbid conditions.<b r/>
Patie nts with extremes in muscle mass or diet.

The data above are obtained from the National Kidney Disease Education Program (NKDEP) which additionally recommends that when the eGFR is used in patients with extremes of body mass index for purposes of drug dosing, the eGFR should be multiplied by the estimated BMI. CHEM PANEL Alk Phos 125 39 - 136 03/20 [facility] CHEM PANEL AST 13 0 - 37 03/20 [facility] CHEM PANEL ALT 23 0 - 65 03/20 [facility] /2015 CHEM PANEL Albumin Lvl 2.5 3.5 - 5.0 03/20 [facility] /2015 CHEM PANEL Bili Total 0.5 0.2 - 1.3 03/20 [facility] CHEM PANEL Potassium 3.7 3.5 - 5.1 03/20 [facility] Lv CHEM PANEL Total 6.0 6.4 - 8.4 03/20 [facility] CHEM PANEL CO2 25 24 - 32 03/20 [facility] CHEM PANEL Calcium Lvl 8.8 8.5 - 10.5 03/20 [facility] CHEM PANEL Creatinine 0.76 0.50 - 03/20 [facility] Lvl 1.40 CHEM PANEL Sodium Lvl 141 135 - 145 03/20 [facility] CHEM PANEL Chloride Lvl 105 95 - 109 03/20 [facility] CHEM PANEL BUN 4 7 - 22 03/20 [facility] /2015 CHEM PANEL Glucose Lvl 103 70 - 99 03/20 [facility] /2015 CHEM PANEL Phosphorus 3.6 2.5 - 4.5 03/20 [facility] /2015 CHEM PANEL Magnesium 2.0 1.8 - 2.4 03/20 [facility] Lvl HEMATOLOGY Segs 53.2 45.0 - 03/20 [facility] 75.0 /2015 HEMATOLOGY Lymphocytes 36.3 20.0 - 03/20 [facility] 40.0 /2015 HEMATOLOGY Monocytes 8.0 2.0 - 12.0 03/20 [facility] /2016 HEMATOLOGY Eosinophils 1.9 0.0 - 4.0 03/20 [facility] /2015 HEMATOLOGY Basophils 0.6 0.0 - 1.0 03/20 [facility] /2015 HEMATOLOGY Monocytes # 0.6 0.0 - 0.8 03/20 [facility] /2016 HEMATOLOGY Eosinophils 0.1 0.0 - 0.5 03/20 [facility] # /2015 HEMATOLOGY Segs-Bands # 3.9 1.5 - 8.1 03/20 [facility] /2015 HEMATOLOGY Lymphocytes 2.6 1.0 - 5.5 03/20 [facility] # /2015 HEMATOLOGY MCH 27.9 27.0 - 03/20 [facility] 31.0 HEMATOLOGY RBC 3.23 4.70 - 03/20 [facility] 6.10 HEMATOLOGY Hgb 9.0 14.0 - 03/20 [facility] 18.0 HEMATOLOGY Hct 27.1 42.0 - 03/20 [facility] 54.0 /2015 HEMATOLOGY MCV 84.0 80.0 - 03/20 [facility] 94.0 /2015 HEMATOLOGY WBC 7.2 3.7 - 10.4 03/20 [facility] /2015 HEMATOLOGY MCHC 33.2 32.0 - 03/20 [facility] 36.0 HEMATOLOGY Platelet 333 133 - 450 03/20 [facility] /2015 HEMATOLOGY MPV 7.6 7.4 - 10.4 03/20 [facility] /2015 HEMATOLOGY RDW 15.3 11.5 - 03/20 [facility] 14.5 /2015 [facility] Folate Lvl 25.2 >=3.0 03/18 [facility] STUDY ng/mL /2015 [facility] Vitamin B12 1112 254 - 1320 03/18 [facility] STUDY Lvl /2015 CHEM PANEL VITAMIN B1 208.6 66.5 - 03/18 Result [facility] (THIAMINE) 200.0 /2015 Comment: WHOLE BLOOD Performed At: [facility]
[address], [place] [id number]<br/ >Amira Woo MD Ph:[phone] CHEM PANEL Globulin 3.6 2.7 - 4.2 12/ MH [facility] /2016 CHEM PANEL A/G Ratio 0.7 0.7 - 1.6 12/ MH [facility] /2016 CHEM PANEL AGAP 11.9 10.0 - 12 MH [facility] 20.0 /2015 CHEM PANEL B/C Ratio 6 6 - 25 12 MH [facility] /2016 CHEM PANEL eGFR 90 03/18 Result MH [facility] /2015 Comment: The eGFR is calculated using the CKD-EPI formula. In most young, healthy individuals the eGFR will be >90 mL/min/1.73m2 . The eGFR declines with age. An eGFR of 60-89 may be normal in some populations, particularly the elderly, for whom the CKD-EPI formula has not been extensively validated. Use of the eGFR is not recommended in the following populations:< br/>
Naomi viduals with unstable creatinine concentration s, including patients and those with serious co-morbid conditions.<b r/>
Patie nts with extremes in muscle mass or diet.

The data above are obtained from the National Kidney Disease Education Program (NKDEP) which additionally recommends that when the eGFR is used in patients with extremes of body mass index for purposes of drug dosing, the eGFR should be multiplied by the estimated BMI. CHEM PANEL Alk Phos 132 39 - 136 03/18 [facility] /2015 CHEM PANEL Bili Total 0.4 0.2 - 1.3 03/18 [facility] /2015 CHEM PANEL Calcium Lvl 8.6 8.5 - 10.5 03/18 [facility] /2016 CHEM PANEL BUN 5 7 - 22 12 [facility] /2016 CHEM PANEL AST 16 0 - 37 03/18 [facility] /2016 CHEM PANEL ALT 32 0 - 65 12 [facility] /2016 CHEM PANEL Albumin Lvl 2.5 3.5 - 5.0 12 [facility] /2016 CHEM PANEL Total 6.1 6.4 - 8.4 03/18 [facility] /2015 CHEM PANEL Creatinine 0.78 0.50 - 12 [facility] Lvl 1.40 /2015 CHEM PANEL Chloride Lvl 107 95 - 109 03/18 [facility] /2016 CHEM PANEL Sodium Lvl 143 135 - 145 03/18 [facility] /2016 CHEM PANEL CO2 28 24 - 32 12 [facility] /2016 CHEM PANEL Potassium 3.9 3.5 - 5.1 03/18 [facility] Lvl /2015 CHEM PANEL Glucose Lvl 105 70 - 99 03/18 [facility] /2016 CHEM PANEL Phosphorus 3.3 2.5 - 4.5 03/18 [facility] /2016 CHEM PANEL Magnesium 1.9 1.8 - 2.4 03/18 [facility] Lvl /2015 HEMATOLOGY Monocytes 6.0 2.0 - 12.0 03/18 [facility] /2016 HEMATOLOGY Eosinophils 1.6 0.0 - 4.0 03/18 [facility] /2016 HEMATOLOGY Lymphocytes 27.6 20.0 - 03/18 [facility] 40.0 /2015 HEMATOLOGY Segs 64.1 45.0 - 03/18 [facility] 75.0 /2015 HEMATOLOGY Segs-Bands # 5.3 1.5 - 8.1 03/18 [facility] /2015 HEMATOLOGY Basophils 0.7 0.0 - 1.0 03/18 [facility] /2015 HEMATOLOGY Basophils # 0.1 0.0 - 0.2 03/18 [facility] /2016 HEMATOLOGY Eosinophils 0.1 0.0 - 0.5 03/18 [facility] # /2015 HEMATOLOGY Lymphocytes 2.3 1.0 - 5.5 03/18 [facility] # /2015 HEMATOLOGY Monocytes # 0.5 0.0 - 0.8 03/18 [facility] /2016 HEMATOLOGY Sed Rate 74 0 - 15 03/18 [facility] /2016 HEMATOLOGY WBC 8.3 3.7 - 10.4 03/18 [facility] /2016 HEMATOLOGY RBC 3.31 4.70 - 03/18 [facility] 6.10 /2015 HEMATOLOGY Hgb 9.2 14.0 - 03/18 [facility] 18.0 /2015 HEMATOLOGY MCV 85.0 80.0 - 03/18 [facility] 94.0 /2015 HEMATOLOGY MCH 27.8 27.0 - 03/18 [facility] 31.0 /2015 HEMATOLOGY Hct 28.2 42.0 - 03/18 [facility] 54.0 /2015 HEMATOLOGY RDW 15.0 11.5 - 03/18 [facility] 14.5 /2015 HEMATOLOGY Platelet 370 133 - 450 03/18 [facility] /2016 HEMATOLOGY MPV 7.7 7.4 - 10.4 03/18 [facility] /2016 HEMATOLOGY MCHC 32.7 32.0 - 03/18 [facility] 36.0 /2016 IMMUNOLOGY C-REACTIVE 20.1 <=2.9 mg/L 03/18 [facility] PROTEIN CHEM PANEL Globulin 3.5 2.7 - 4.2 03/17 [facility] CHEM PANEL A/G Ratio 0.7 0.7 - 1.6 03/17 [facility] CHEM PANEL AGAP 11.6 10.0 - 03/17 [place] 20.0 [facility] CHEM PANEL B/C Ratio 5 6 - 25 03/17 [facility] CHEM PANEL Albumin Lvl 2.4 3.5 - 5.0 03/17 [facility] CHEM PANEL Calcium Lvl 8.5 8.5 - 10.5 03/17 [place] as [facility] CHEM PANEL Total 5.9 6.4 - 8.4 03/17 [facility] Protein [facility] CHEM PANEL ALT 35 0 - 65 03/17 [facility] CHEM PANEL Alk Phos 120 39 - 136 03/17 [facility] CHEM PANEL AST 18 0 - 37 03/17 [facility] CHEM PANEL Glucose Lvl 100 70 - 99 03/17 [facility] CHEM PANEL CO2 27 24 - 32 03/17 [facility] CHEM PANEL Creatinine 0.86 0.50 - 03/17 [place] Lvl 1.40 [facility] CHEM PANEL Chloride Lvl 106 95 - 109 03/17 [facility] CHEM PANEL BUN 4 7 - 22 03/17 [facility] CHEM PANEL Potassium 3.6 3.5 - 5.1 03/17 [facility] Lvl [facility] CHEM PANEL Sodium Lvl 141 135 - 145 03/17 [facility] CHEM PANEL eGFR 86 03/17 [facility] Comment: The Medical eGFR is Center calculated using the CKD-EPI formula. In most young, healthy individuals the eGFR will be >90 mL/min/1.73m2 . The eGFR declines with age. An eGFR of 60-89 may be normal in some populations, particularly the elderly, for whom the CKD-EPI formula has not been extensively validated. Use of the eGFR is not recommended in the following populations:< br/>
Naomi viduals with unstable creatinine concentration s, including patients and those with serious co-morbid conditions.<b r/>
Patie nts with extremes in muscle mass or diet.

The data above are obtained from the National Kidney Disease Education Program (NKDEP) which additionally recommends that when the eGFR is used in patients with extremes of body mass index for purposes of drug dosing, the eGFR should be multiplied by the estimated BMI. CHEM PANEL Bili Total 0.4 0.2 - 1.3 03/17 [facility] HEMATOLOGY MPV 7.7 7.4 - 10.4 03/17 [facility] HEMATOLOGY Platelet 357 133 - 450 03/17 [facility] HEMATOLOGY RBC 3.05 4.70 - 03/17 [place] 6.10 [facility] HEMATOLOGY WBC 8.4 3.7 - 10.4 03/17 [facility] HEMATOLOGY Hgb 8.6 14.0 - 03/17 [place] 18.0 [facility] HEMATOLOGY Hct 26.4 42.0 - 03/17 [place] 54.0 [facility] HEMATOLOGY MCH 28.1 27.0 - 03/17 [place] 31.0 [facility] HEMATOLOGY MCV 86.3 80.0 - 03/17 [place] 94.0 [facility] HEMATOLOGY RDW 14.8 11.5 - 03/17 [place] 14.5 [facility] HEMATOLOGY MCHC 32.5 32.0 - 03/17 [place] 36.0 [facility] HEMATOLOGY Segs-Bands # 5.5 1.5 - 8.1 03/17 [facility] HEMATOLOGY Basophils 0.8 0.0 - 1.0 03/17 [facility] HEMATOLOGY Monocytes # 0.6 0.0 - 0.8 03[place] [facility] HEMATOLOGY Lymphocytes 2.1 1.0 - 5.5 03/17 [place] # [facility] HEMATOLOGY Basophils # 0.1 0.0 - 0.2 03/17 [place] [facility] HEMATOLOGY Eosinophils 0.1 0.0 - 0.5 03/[place] # /2015 [facility] HEMATOLOGY Lymphocytes 24.9 20.0 - 03/17 [place] 40.0 [facility] HEMATOLOGY Segs 66.2 45.0 - 03/17 [facility] 75.0 [facility] HEMATOLOGY Eosinophils 1.3 0.0 - 4.0 03/17 [facility] HEMATOLOGY Monocytes 6.8 2.0 - 12.0 03/17 [facility] CHEM PANEL Magnesium 2.1 1.8 - 2.4 03/16 [facility] [place] [facility] CHEM PANEL Phosphorus 3.4 2.5 - 4.5 03/16 [facility] CHEM PANEL eGFR 87 03/16 [facility] Comment: [facility] eGFR is Center calculated using the CKD-EPI formula. In most young, healthy individuals the eGFR will be >90 mL/min/1.73m2 . The eGFR declines with age. An eGFR of 60-89 may be normal in some populations, particularly the elderly, for whom the CKD-EPI formula has not been extensively validated. Use of the eGFR is not recommended in the following populations:< br/>
Naomi viduals with unstable creatinine concentration s, including patients and those with serious co-morbid conditions.<b r/>
Patie nts with extremes in muscle mass or diet.

The data above are obtained from the National Kidney Disease Education Program (NKDEP) which additionally recommends that when the eGFR is used in patients with extremes of body mass index for purposes of drug dosing, the eGFR should be multiplied by the estimated BMI. CHEM PANEL Total 5.9 6.4 - 8.4 03/16 [facility] CHEM PANEL AST 19 0 - 37 03/16 [facility] CHEM PANEL ALT 34 0 - 65 03/16 [facility] CHEM PANEL Bili Total 0.3 0.2 - 1.3 03/16 [facility] CHEM PANEL Alk Phos 121 39 - 136 03/16 [facility]2015 [facility] CHEM PANEL Albumin Lvl 2.4 3.5 - 5.0 03/16 [facility] CHEM PANEL BUN 5 7 - 22 03/16 [facility]2015 [facility] CHEM PANEL Glucose Lvl 119 70 - 99 03/16 [facility] CHEM PANEL Sodium Lvl 141 135 - 145 03/16 [facility] CHEM PANEL Creatinine 0.85 0.50 - 03/16 [facility] [place] Lvl 1.40 /2015 [facility] CHEM PANEL Chloride Lvl 108 95 - 109 03/16 a s [facility] CHEM PANEL Potassium 3.9 3.5 - 5.1 03/16 [place] Lvl /2015 [facility] CHEM PANEL Calcium Lvl 8.4 8.5 - 10.5 03/16 [facility] CHEM PANEL CO2 25 24 - 32 03/16 [facility] CHEM PANEL B/C Ratio 6 6 - 25 03/16 [facility] CHEM PANEL AGAP 11.9 10.0 - 03/16 [place] 20.0 [facility] CHEM PANEL A/G Ratio 0.7 0.7 - 1.6 03/16 [facility] CHEM PANEL Globulin 3.5 2.7 - 4.2 03/16 [facility] HEMATOLOGY Eosinophils 0.1 0.0 - 0.5 03/16 [place] [facility] HEMATOLOGY Monocytes # 0.6 0.0 - 0.8 03/16 [facility] HEMATOLOGY Basophils # 0.1 0.0 - 0.2 03/16 [facility] HEMATOLOGY Segs 65.0 45.0 - 03/16 [place] 75.0 [facility] HEMATOLOGY Lymphocytes 1.9 1.0 - 5.5 03/16 [place] [facility] HEMATOLOGY Segs-Bands # 4.9 1.5 - 8.1 03/16 [facility] HEMATOLOGY Basophils 1.0 0.0 - 1.0 03/16 [facility] HEMATOLOGY Monocytes 7.3 2.0 - 12.0 03/16 [facility] HEMATOLOGY Lymphocytes 25.3 20.0 - 03/16 [place] 40.0 [facility] HEMATOLOGY Eosinophils 1.4 0.0 - 4.0 03/16 [facility] HEMATOLOGY Platelet 338 133 - 450 03/16 [facility] HEMATOLOGY RDW 14.6 11.5 - 03/16 [place] 14.5 [facility] HEMATOLOGY MPV 7.7 7.4 - 10.4 03/16 [facility] HEMATOLOGY MCV 89.8 80.0 - 03/16 [place] 94.0 /2015 [facility] HEMATOLOGY MCH 27.7 27.0 - 12/22 [place] 31.0 /2015 [facility] HEMATOLOGY MCHC 30.9 32.0 - 03/16 [place] 36.0 [facility] HEMATOLOGY Hgb 8.6 14.0 - 03/16 [place] 18.0 [facility] HEMATOLOGY RBC 3.09 4.70 - 03/16 [place] 6.10 /2015 [facility] HEMATOLOGY WBC 7.6 3.7 - 10.4 03/16 [facility] HEMATOLOGY Hct 27.8 42.0 - 03/16 [place] 54.0 [facility] CHEM PANEL Phosphorus 3.1 2.5 - 4.5 03/15 [facility] CHEM PANEL Magnesium 2.3 1.8 - 2.4 03/15 [facility] Lvl [facility] CHEM PANEL AST 20 0 - 37 03/15 [facility] CHEM PANEL Alk Phos 108 39 - 136 03/15 [facility] CHEM PANEL Bili Total 0.4 0.2 - 1.3 03/15 [facility] CHEM PANEL Albumin Lvl 2.2 3.5 - 5.0 03/15 [facility] CHEM PANEL Total 5.6 6.4 - 8.4 03/15 [facility] Protein [facility] CHEM PANEL Calcium Lvl 8.2 8.5 - 10.5 03/15 [facility] CHEM PANEL ALT 40 0 - 65 03/15 [facility] CHEM PANEL eGFR 87 03/15 [facility] Comment: The Medical eGFR is Center calculated using the CKD-EPI formula. In most young, healthy individuals the eGFR will be >90 mL/min/1.73m2 . The eGFR declines with age. An eGFR of 60-89 may be normal in some populations, particularly the elderly, for whom the CKD-EPI formula has not been extensively validated. Use of the eGFR is not recommended in the following populations:< br/>
Naomi viduals with unstable creatinine concentration s, including patients and those with serious co-morbid conditions.<b r/>
Patie nts with extremes in muscle mass or diet.

The data above are obtained from the National Kidney Disease Education Program (NKDEP) which additionally recommends that when the eGFR is used in patients with extremes of body mass index for purposes of drug dosing, the eGFR should be multiplied by the estimated BMI. CHEM PANEL Creatinine 0.84 0.50 - 03/15 [facility] Lvl 1.40 [facility] CHEM PANEL Sodium Lvl 140 135 - 145 03/15 2015 [facility] CHEM PANEL Glucose Lvl 125 70 - 99 03/15 2015 [facility] CHEM PANEL Potassium 4.2 3.5 - 5.1 03/15 [facility] Lvl [facility] CHEM PANEL Chloride Lvl 106 95 - 109 03/15 [facility] CHEM PANEL BUN 10 7 - 22 03/15 [facility] CHEM PANEL CO2 26 24 - 32 03/15 2015 [facility] CHEM PANEL AGAP 12.2 10.0 - 03/15 [place] 20.0 [facility] CHEM PANEL A/G Ratio 0.6 0.7 - 1.6 03/15 2015 [facility] CHEM PANEL B/C Ratio 12 6 - 25 03/15 [facility] CHEM PANEL Globulin 3.4 2.7 - 4.2 03/15 [facility] HEMATOLOGY Eosinophils 1.6 0.0 - 4.0 03/15 [facility] HEMATOLOGY Monocytes 6.6 2.0 - 12.0 03/15 [facility] HEMATOLOGY Lymphocytes 22.1 20.0 - 03/15 [place] 40.0 [facility] HEMATOLOGY Segs 68.8 45.0 - 03/15 [place] 75.0 [facility] HEMATOLOGY Monocytes # 0.5 0.0 - 0.8 03/15 [facility] HEMATOLOGY Basophils # 0.1 0.0 - 0.2 03/15 [facility] HEMATOLOGY Eosinophils 0.1 0.0 - 0.5 03/15 [facility] # [facility] HEMATOLOGY Segs-Bands # 5.5 1.5 - 8.1 03/15 [facility] HEMATOLOGY Basophils 0.9 0.0 - 1.0 03/15 2015 [facility] HEMATOLOGY Lymphocytes 1.8 1.0 - 5.5 03/15 [place] [facility] HEMATOLOGY Hct 23.5 42.0 - 03/15 [place] 54.0 [facility] HEMATOLOGY RBC 2.73 4.70 - 03/15 [place] 6.10 /2015 [facility] HEMATOLOGY Hgb 7.6 14.0 - 03/15 [place] 18.0 /2015 [facility] HEMATOLOGY RDW 14.9 11.5 - 03/15 [place] 14.5 /2015 [facility] HEMATOLOGY Platelet 285 133 - 450 03/15 [facility] HEMATOLOGY MPV 8.0 7.4 - 10.4 03/15 [facility] HEMATOLOGY WBC 7.9 3.7 - 10.4 03/15 [facility] HEMATOLOGY MCHC 32.4 32.0 - 03/15 [place] 36.0 /2015 [facility] HEMATOLOGY MCV 86.0 80.0 - 03/15 [place] 94.0 /2015 [facility] HEMATOLOGY MCH 27.8 27.0 - 03/15 [place] 31.0 [facility] CHEM PANEL Magnesium 1.9 1.8 - 2.4 03/14 [facility] Lvl [facility] CHEM PANEL Phosphorus 3.2 2.5 - 4.5 03/14 [facility] IMMUNOLOGY Aspergillus Negative Neg:<1:1 03/13 [place] /2015 [facility] IMMUNOLOGY Aspergillus Negative Neg:<1:1 03/13 [place] /2015 [facility] IMMUNOLOGY Aspergillus Negative Neg:<1:1 03/13 [place] /2015 [facility] IMMUNOLOGY Blastomyces Negative Neg:<1:1 03/13 [place] [facility] IMMUNOLOGY Coccidiodes Negative Neg:<1:1 03/13 [place] by [place] /2015 [facility] IMMUNOLOGY Histoplasma Negative Neg:<1:1 03/13 [place] Comment: Medical Performed At: Center [facility]
[address] [place], [place] [id number]<br/ >Amira Woo MD Ph:[phone] URINE AND UA Sq Epi None Seen 03/13 [facility] STOOL /2015 [facility] URINE AND UA <=1.0 0.1 - 1.0 03/13 [facility] STOOL Urobilinogen mg/dL [facility] URINE AND UA Mucus Few /LPF None Seen 03/13 [facility] STOOL /LPF /2015 [facility] URINE AND UA WBC 2 0 - 5 03/13 [facility] STOOL /2015 [facility] URINE AND UA Leuk Est Negative Negative 03/13 [facility] STOOL (03/13/16 11:44 AM) /2015 [facility] URINE AND UA RBC <1 0 - 2 03/13 [facility] STOOL /2015 [facility] URINE AND UA Nitrite Negative Negative 03/13 [facility] STOOL (03/13/16 11:44 AM) /2015 [facility] URINE AND UA Blood Negative Negative 03/13 [facility] STOOL (03/13/16 11:44 AM) /2015 [facility] URINE AND UA Spec Grav 1.008 <=1.030 03/13 [facility] STOOL /2015 [facility] URINE AND UA Turbidity Clear Clear 03/13 [facility] STOOL (03/13/16 11:44 AM) /2015 [facility] URINE AND UA pH 6.5 5.0 - 8.0 03/13 [facility] STOOL /2015 [facility] URINE AND UA Color Yellow Yellow 03/13 [facility] STOOL *NA* /2015 [facility] (03/13/16 11:44 AM) Cent er URINE AND UA Ketones Negative Negative 03/13 [facility] STOOL mg/dL mg/dL /2015 [facility] URINE AND UA Bili Negative Negative 03/13 [facility] STOOL *NA* /2015 [facility] (03/13/16 11:44 AM) Cent er URINE AND UA Protein Negative Negative 03/13 [facility] STOOL mg/dL mg/dL [facility] URINE AND UA Glucose Negative Negative 03/13 [facility] STOOL mg/dL mg/dL /2015 [facility] HEMATOLOGY Plt Morph Normal 03/11 [facility] (03/11/16 5:27 AM) [facility] HEMATOLOGY Polychrom Slight 03/11 [facility] HEMATOLOGY Macrocyte 1+ None Seen 03/10 [facility] *ABN* /2015 [facility] (03/10/16 9:46 AM) Cente r HEMATOLOGY Bands 0.0 0.0 - 11.0 03/08 [facility] HEMATOLOGY Metamyelocyt 1.0 0.0 - 1.0 03/08 [place] es [facility] HEMATOLOGY Plt Morph Normal 03/08 [facility] (03/08/16 5:37 AM) /2015 [facility] HEMATOLOGY Atypical 0.0 <=0.0 % 03/08 [facility] Lymphs [facility] HEMATOLOGY Myelocytes 1.0 <=0.0 % 03/08 [facility] PARATHYROI Ca Ion WB 1.05 1.05 - 12/13 [facility] D PROFILE 1. [facility] PARATHYROI Ca Norm WB 1.06 1.05 - 03/07 [facility] D PROFILE 1. [facility] CHEM PANEL Procalcitoni 1.24 0.00 - 03/06 [facility] n Lvl 0. [facility] HEMATOLOGY Sed Rate 100 0 - 15 03/06 [facility] [address] [place] [address] IMMUNOLOGY C-REACTIVE 276.0 <=2.9 mg/L 03/06 [place] [facility] HEMATOLOGY Anisocyte 1+ None Seen 03/05 [facility] *ABN* [facility] (03/05/16 8:46 AM) Cente r HEMATOLOGY Plt Morph Normal 03/05 [facility] (03/05/16 8:46 AM) /2015 [facility] HEMATOLOGY Metamyelocyt 2.0 0.0 - 1.0 03/05 [place] [facility] HEMATOLOGY Atypical 0.0 <=0.0 % 03/05 [facility] Lymphs [facility] HEMATOLOGY Bands 1.0 0.0 - 11.0 03/05 [facility] PARATHYROI Ca Ion WB 1.09 1.05 - 03/04 [facility] D PROFILE 1. [facility] PARATHYROI Ca Norm WB 1.07 1.05 - 03/04 [facility] D PROFILE 1. [facility] URINE AND UA Sq Epi None Seen 03/04 [facility] STOOL /2015 [facility] URINE AND UA Hyal Cast 3 0 - 2 03/04 [facility] STOOL /2015 [facility] URINE AND UA Robinson Yeast Few /HPF None Seen 03/04 [place] STOOL /HPF /2015 [facility] URINE AND UA Hyph Occasional None Seen 03/04 [facility] STOOL Yeast *ABN* /2015 Medical (03/04/16 11:57 AM) Cent er URINE AND UA <=1.0 0.1 - 1.0 03/04 [facility] STOOL Urobilinogen mg/dL /2015 [facility] URINE AND UA Amorph Occasional None [place]en 03[place] /HPF /HPF /2015 [facility] URINE AND UA WBC 14 0 - 5 03/04 [facility] STOOL /2015 [facility] URINE AND UA RBC 3 0 - 2 03/04 [facility] /2015 [facility] URINE AND UA Bacteria Occasional None [place]en 03[place] /HPF /HPF /2015 [facility] URINE AND UA Mucus Few /LPF None Seen 03/04 [facility] STOOL /LPF /2015 [facility] URINE AND UA Glucose Negative Negative 03/04 [facility] STOOL mg/dL mg/dL /2015 [facility] URINE AND UA pH 6.0 5.0 - 8.0 03/04 [facility] STOOL [facility] URINE AND UA Spec Grav 1.018 <=1.030 03/04 [place] STOOL [facility] URINE AND UA Color Yellow Yellow 03/04 [facility] STOOL *NA* /2015 Medical (03/04/16 11:57 AM) Cent er URINE AND UA Turbidity Clear Clear 03/04 [facility] STOOL (03/04/16 11:57 AM) /2015 [facility] URINE AND UA Blood Negative Negative 03/04 [facility] STOOL (03/04/16 11:57 AM) /2015 [facility] URINE AND UA Bili Negative Negative 03/04 [facility] STOOL *NA* Medical (03/04/16 11:57 AM) Cent er URINE AND UA Nitrite Negative Negative 03/04 [facility] STOOL (03/04/16 11:57 AM) /2015 [facility] URINE AND UA Leuk Est Small Negative 03/04 [facility] STOOL *ABN* /2015 Medical (03/04/16 11:57 AM) Cent er URINE AND UA Protein 50 mg/dL Negative 03/04 [facility] STOOL mg/dL /2015 [facility] URINE AND UA Ketones Negative Negative 03/04 [facility] STOOL mg/dL mg/dL /2015 [facility] CARDIAC Troponin-I 0.03 0.00 - 03/04 [facility] ENZYMES 0.40 [facility] CARDIAC Total CK 183 12 - 191 03/04 [facility] ENZYMES [facility] CARDIAC CK MB Index 0.5 0.0 - 2.5 03/04 [facility] ENZYMES [facility] CARDIAC CK MB 0.9 0.5 - 3.6 03/04 [facility] ENZYMES /2016 [facility] CHEM PANEL Bili Direct 0.1 0.0 - 0.3 03/04 [place] [facility] CHEM PANEL Bili 0.3 0.0 - 1.0 03/04 [place] Indirect /2015 [facility] TOXICOLOGY Vanco Tr TND 1330 03/04 [facility] TOXICOLOGY Vanco Tr <0.8 03/04 [place] /2016 [facility] CHEM PANEL Lactic Acid 1.3 0.5 - 2.2 03/03 [place] /2015 [facility] CARDIAC CK MB Index 1.6 0.0 - 2.5 02/28 [place] ENZYMES /2015 [facility] CARDIAC CK MB 2.8 0.5 - 3.6 02/28 [facility] ENZYMES /2015 [facility] CARDIAC Troponin-I 0.02 0.00 - 02/28 [facility] ENZYMES 0.40 [facility] CARDIAC Total CK 176 12 - 191 02/28 [facility] ENZYMES [facility] BLOOD BANK RBC product Product available 02/28 [facility] RESULTS (02/29/16 12:20 PM) /2015 [facility] TOXICOLOGY Vanco Tr TND 0030 02/28 [place] /2015 [facility] TOXICOLOGY Vanco Tr 9.4 02/28 [place] [facility] BLOOD BANK Antibody Negative 02/27 [facility] RESULTS Scrn (02/28/16 12:45 PM) [facility] BLOOD BANK ABO/Rh B POS 02/27 [facility] RESULTS [facility] URINE AND UA <=1.0 0.1 - 1.0 02/27 [facility] STOOL Urobilinogen mg/dL /2015 [facility] URINE AND UA RBC 168 0 - 2 02/27 [facility] STOOL [facility] URINE AND UA Mucus Few /LPF None Seen 02/27 [facility] STOOL /LPF /2015 [facility] URINE AND UA Sq Epi None Seen 02/27 [facility] [facility] URINE AND UA Leuk Est Small Negative 02/27 [facility] *ABN* /2015 [facility] (02/28/16 8:36 AM) [place] URINE AND UA WBC 9 0 - 5 02/27 [facility] STOOL /2015 [facility] URINE AND UA Color Yellow Yellow 02/27 [facility] STOOL *NA* /2015 [facility] (02/28/16 8:36 AM) [place] URINE AND UA Spec Grav 1.037 <=1.030 02/27 [facility] STOOL [facility] URINE AND UA Turbidity Clear Clear 02/27 [facility] STOOL (02/28/16 8:36 AM) [facility] UA Bili Negative Negative 02/27 [facility] STOOL *NA* /2015 [facility] (02/28/16 8:36 AM) Center URINE AND UA Blood Moderate Negative 02/27 [facility] STOOL *ABN* /2015 [facility] (02/28/16 8:36 AM) Center URINE AND UA Nitrite Negative Negative 02/27 [facility] STOOL (02/28/16 8:36 AM) /2015 [facility] URINE AND UA Glucose Negative Negative 02/27 [facility] STOOL mg/dL mg/dL /2015 [facility] URINE AND UA Ketones Negative Negative 02/27 [facility] STOOL mg/dL mg/dL /2015 [facility] URINE AND UA pH 6.0 5.0 - 8.0 02/27 [facility] STOOL /2015 [facility] URINE AND UA Protein 70 mg/dL Negative 02/27 [facility] STOOL mg/dL /2015 [facility] CHEM PANEL Lactic Acid 1.8 0.5 - 2.2 02/26 [facility] s Lvl [facility] CHEM PANEL Lactic Acid 2.4 0.5 - 2.2 02/26 [facility] PARATHYROI Ca Norm WB 1.19 1.05 - 02/26 [facility] D PROFILE 1. [facility] PARATHYROI Ca Ion WB 1.13 1.05 - 02/26 [facility] D PROFILE 1. [facility] BLOOD BANK ABO/Rh B POS 02/24 [facility] RESULTS /2015 [facility] BLOOD BANK Antibody Negative 02/24 [facility] RESULTS Scrn (02/25/16 4:30 AM) /2015 [facility] LIPIDS CHD Risk 2.76 4.00 - 02/23 [place] 7.30 [facility] LIPIDS LDL 37 <=99 mg/dL 02/23 [facility] (Calculated) [facility] LIPIDS VLDL 23 02/23 [facility] LIPIDS Trig 117 <=149 02/23 [facility] mg/dL [facility] LIPIDS HDL 34 >=61 mg/dL 02/23 [facility] LIPIDS Chol 94 <=199 02/23 [facility] mg/dL [facility] SPECIAL Hgb A1C 5.9 <=5.6 % 02/23 [facility] CHEMISTRY /2015 [facility] HEMATOLOGY PT 15.5 12.0 - 02/21 [place] 14.7 [facility] HEMATOLOGY INR 1.20 0.85 - 02/21 [place] 1.17 [facility] HEMATOLOGY PTT 27.0 22.9 - 02/21 [place] 35.8 [facility] BLOOD BANK ABO/Rh B POS 02/20 [place] RESULTS /2015 [facility] BLOOD BANK Antibody Negative 02/20 [facility] RESULTS Scrn (02/21/16 5:56 AM) /2016 [facility] BACTERIAL MRSA by PCR Negative 02/07 [facility] - SEROLOGY (02/08/16 3:30 PM) /[facility] CHEM PANEL Vitamin D, 29 30 - 100 02/07 [facility] 25-OH, Total /2015 [facility] HEMATOLOGY PT 13.1 12.0 - 02/07 [facility] 14.7 /2015 [facility] HEMATOLOGY PTT 29.2 22.9 - 02/07 [facility] 35.8 /2015 [facility] HEMATOLOGY INR 0.97 0.85 - 02/07 [facility] 1.17 /2015 [facility] IMMUNOLOGY HIV 1/2 Ab Negative Negative 02/07 [facility] *NA* Medical (02/08/16 3:30 PM) Cente r IMMUNOLOGY Hep C Ab Negative 02/07 [facility] *NA* Medical (02/08/16 3:30 PM) Cente r URINE AND Micro? 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 Include 45 degree cuts on cspine. TECHNIQUE: Imaging protocol: Multiplanar magnetic resonance images of the cervical spine without contrast. COMPARISON: SPINE CERVICAL WO CONTRAST MRI 04/16/2018 11:11 A M FINDINGS: Vertebrae: There is no fracture osseous metasta tic disease. There is degenerative change of the C1-C2 articulation. Spinal cord: There is no myleomalacia or cord ed kaley. There is no tonsillar ectopia. There is normal flow from both vertebra l arteries. C2-C3: At the C2-C3 disc space, there is minimal degenerative change of the right facet joint. C3-C4: At the C3-C4 disc space , there are progr essive degenerative changes with a 2 mm anterolisthesis, central protrusion and broadening of posterior longitudinal ligament. There is hypertrophic change to left uncovertebral joint with progressive severe left foraminal s tenosis and degenerative change of the left facet joint. C4-C5: At the C4-C5 disc space, there is progressive degenerative changes with disc space narrowing. There is a 3 mm broad-base d bridging osteophyte and hypertrophic change the uncovertebral nahid ints and ligamentum flavum with severe left and moderate right foraminal stenosis and m inimal to moderate central canal stenosis. C5-C6: At the C5-C6 disc space which is further desiccated and narrowed, there is a 2-3 mm broad-based bridging osteophyte and hypertrophic change of uncovertebral joints with moderate to severe tara ateral foraminal stenosis, noted previously. C6-C7: At the C6-C7 disc space, there is a 2 mm bridging osteophyte and hypertrophic change to left uncovertebral joint with minimal to moderate bilateral distal foraminal stenosis which is sta ble. C7-T1: At the C7-T1 disc space, there is no cent ral or foraminal stenosis. There is minimal degenerative change of left fac et joint. Vertebral arteries: Expected flow voids in the v ertebral arteries. Soft tissues: The prevertbral soft tissues are n ormal. IMPRESSION: Progressive discogenic disease is p resent as described. Dakotah Carter MD On 11/04/2019 08:53:06; BERNARDA [id number] Spine lumbar wo contrast PROCEDURE INFORMATION: 11/03/2019 [facility] MRI Exam: MR Lumbar Spine Without Contrast. Exam date and time: 11/03/2019 1:39 PM Age: 79 years old Clinical indication: Low fercho k pain; Arthrodesis status; Additional info: /m54.5 low bacjk pain, z98.1 status post spinal arthrod esis and r26.81 unsteady gait TECHNIQUE: Imaging protocol: Multiplanar magnetic resonance images of the lumbar spine without intravenous contrast. COMPARISON: SPINE SACRUM WO CONTRAST MRI 03/17/2016 8:44 AM FINDINGS: Vertebrae: No acute fracture. The marrow signal is unremarkable for age. Moderate loss of disc height from T11-L4 levels with endplate degenerative changes. L3-S1 posterior lumbar interbody fusion , hardware cannot be assessed on MRI. No evidence of pseudomeningocele . There is a small fluid collection at L4-L5 levels measuring 1 cm in axial plane. L5-S 1 anterior lumbar fusion hardware is noted within interposition graft asya t appears to be well incorporated although assessment is limi vasyl on MRI. No interposition grafts at L3-L4 and L4-L5. Spinal cord: The conus medullaris terminates nor sia at L1. The cauda equina nerve roots are unremarkable. Changes by level: T11-T12: Small disc osteophyte complex a nd facet arthrosis with mild canal and foraminal stenosis. T12-L1: Small disc osteophyte complex and mild f acet arthrosis with mild foraminal stenosis. L1-L2: Moderate-sized disc bulge osteophyte comp lewis asymmetric to the leftand mild facet arthrosis. Mild central canal stenosi s asymmetrically prominent on the left side. Mild left foraminal stenosis. L2-L3: 5 mm retrolisthesis and moderate-sized di sc osteophyte complex. Mild facet arthrosis. Moderate stenosis of the centra l canal and foramina. L3-L4: 2 mm retrolisthesis a nd moderate-sized disc osteophyte complex with mild foraminal stenosis. Posterior decompression post erior fusion. No recurrent central canal stenosis. L4-L5: Posterior decompression and fusio n. 3 mm anterolisthesis and small disc osteophyte complex. Facet hypertrophic changes. No stenosis or arachnoiditis. L5-S1: Anterior and posterior fusion. Posterior decompression. No recurrent canal or lateral recess stenosis. Mild foraminal stenosis. IMPRESSION: 1. L3-S1 : Posterior decompression and posterior fusion without recurrent high-grade stenosis, arachnoiditis or pseudomeni ngocele. 2. L2-L3 : Moderate stenosis of the central madeline l and foramina. Complete details as above 3. L1-L2: Mild central canal stenosis and mild l eft foraminal stenosis. 4. Mild degenerative changes in the visualized t horacic spine. COMMENTS: 5 lumbar type vertebral bodies are presumed to b e present. Olga Farmer MD On 11/03/2019 18:32 :53; [id number] Spine Thoracic wo PROCEDURE INFORMATION: 11/03/2019 [facility] contrast MRI Exam: MR Thoracic Spine Without Contrast Exam date and time: 11/03/2019 1:39 PM Age: 79 years old Clinical indication: Other spondylosis with myel opathy, thoracic region; Additional info: /m47.14 thoracic myelopahty and r26.81 unsteady gait TECHNIQUE: Imaging protocol: Multiplanar magnetic resonance images of the thoracic spine without intravenous contrast. COMPARISON: SPINE SACRUM WO CONTRAST MRI 03/17/2016 8:44 AM FINDINGS: Vertebrae: There is no compression fracture def ormity or osseous metastatic disease. Spinal cord: Normal signal. No cord compression. T1-T2: No significant disc disease. No signific ant spinal canal stenosis. T2-T3: No significant disc disease. No signific ant spinal canal stenosis. T3-T4: No significant disc disease. No signific ant spinal canal stenosis. T4-T5: No significant disc disease. No signific ant spinal canal stenosis. T5-T6: No significant disc disease. No signific ant spinal canal stenosis. T6-T7: No significant disc disease. No signific ant spinal canal stenosis. T7-T8: No significant disc disease. No signific ant spinal canal stenosis. T8-T9: At the T8-9 disc spac e which is desiccated there is a 2 mm right lateral protrusion without central canal stenosis is ant erior spondylosis and Modic 2 signal alteration. T9-T10: At the T9-10 disc space which is desicca vasyl there is a 2 mm bridging osteophyte with minimal right foraminal stenosis is anterior spondylosis. T10-T11: At the T10-11 disc space which is desic cated there is a 3 mm broad-based bridging osteophyte and hypertrophic change to ligamentum flavum and facet joints with minimal to moderate spinal stenosis and bilateral foraminal stenosis. T11-T12: At the T11-12 disc space which is desiccated there is a 1 mm bridging osteophyte without central or foraminal stenosis . At the T12-L1 disc space is a central Sc hmorl's node anterior spondylosis with Modic 2 signal alteration. There is a 2 mm left lateral protrusion/subligamentous extrusion without spin al stenosis. Soft tissues: There is no pleural effusion or p aravertebral mass intensity. There is minimal atrophic changes of the spinae erector muscles. IMPRESSION: Multilevel discogenic disease is pr esent without central canal stenosis. Dakotah Carter MD On 11/04/2019 08:43:44; VR-B [id number] Chest Pulmonary Embolism Radiation Dose CTDIVOL = 0 ( mGy): DLP = 798.01 (mGy-cm) 03/07/2019 [facility] PROCEDURE INFORMATION: Exam: CT Angiography Chest With Contrast Exam date and time: 03/07/2019 9:22 PM Age: 78 years old Clinical history: Shortness of breath; Patient H X: Chest pain with SOB; Additional info: /sob TECHNIQUE: Imaging protocol: Computed tomographic angiograp hy of the chest with intravenous contrast. 3D rendering: MIP and 3D reconstructed images we re created and reviewed. Total DLP: 798.01 mGy-cm Radiation optimization: All CT scans at this facility use at least one of these dose optimization techniques: automated exposure control; mA and/or kV adjustment per patient size (includes targeted e xams where dose is matched to clinical indication); or iterative reconstructio n. Contrast material: OMNI; Contrast volume: 100 ml ; Contrast route: IV; COMPARISON: CHEST PULMONARY EMBOLISM CTA 02/23/2016 12:29 PM FINDINGS: Pulmonary arteries: Normal. No pulmonary emboli. Aorta: Unremarkable. No aortic aneurysm. No aort ic dissection. Lungs: Unremarkable. No consolidation. No masses . Pleural space: Unremarkable. No pneumothorax. No pleural effusion. Heart: Unremarkable. No cardiomegaly. No pericar dial effusion. Lymph nodes: Unremarkable. No enlarged lymph nod es. Bones/joints: There is anterior osteophyte forma tion and facet joint arthropathy at multiple levels. Soft tissues: Unremarkable. Other findings: There is a patent cyst measuring 3.8 x 3.1 cm. IMPRESSION: 1. No evidence of pulmonary embolism or aortic d issection. 2. No focal infiltrates, lymphadenopathy, or ple ural effusion. 3. Hepatic cyst with a maximum size of 3.8 cm. 4. Degenerative disc disease changes of the thor acic spine. Enrike Giordano MD On 03/07/2019 22:11:28; VR-H [id number] Chest 1view DX PROCEDURE INFORMATION: 03/07/2019 [facility] [place] [facility] Exam: XR Chest, 1 View Exam date and time: 03/07/2019 4:23 PM Age: 78 years old Clinical history: Shortness of breath; Additiona l info: /sob TECHNIQUE: Imaging protocol: XR of the chest Views: 1 view. Other technique: AP chest radiograph COMPARISON: CR CHEST 1V FOR PLACEMENT DX 05/03/2017 1:57 PM FINDINGS: Lungs: Adequately inflated. No focal consolidati on. Pleural space: No pneumothorax or pleural effusi on. Heart/Mediastinum: Cardiomediastinal silhouette within normal limits. Bones/joints: Bilateral reverse total shoulder a rthroplasties. IMPRESSION: No acute intrathoracic abnormality Carlo Miller MD On 03/07/2019 16:43:39; VR-MX [id number] Chest w contrast CT CT CHEST WITH CONTRAST 05/02/2018 [place] CLINICAL INDICATION: Gastroesophageal reflux. S olitary pulmonary nodule. COMPARISON: Multiple CT chest examinations datin g back to 03/01/2016. TECHNIQUE: Sequential trans- axial images were obtained thru the chest and upper abdomen. 100 mL of Omnipaque 300 IV contrast administered. Coronal and sagittal reconstructions were obtained. CT imaging performed at this location utilizes radiation dose optimization techniques which include one or more of the following: -Automated exposure control -Adjustment of the mA and/or kV according to pat ient size -Use of iterative reconstruction technique CT Radiation Dose DLP 368 mGy-cm FINDINGS: LUNG PARENCHYMA AND PLEURA: 4 to 5 mm subpleural noncalcified nodule left lower lobe axial image 126 series 4. This is similar in size to the 06/01/2017 exam and also the 03/01/2016 exam. Calcified gran uloma right lower lobe. Lung s otherwise clear no infiltrates or pleural effusions. AIRWAY: The central airway is normal. MEDIASTINUM: No esophageal w all thickening appreciated. Thoracic aorta normal. No mediastinal adenopathy. OSSEOUS STRUCTURES: There ar e no definite significant osseous abnormalities seen. VISUALIZED UPPER ABDOMEN: St able left hepatic cyst. Upper abdominal structures otherwise normal. IMPRESSION: 1. Stable 4 to 5 mm subpleur al nodule left lower lobe unchanged at a almost 3 year interval. 2. Normal-appearing esophagus. 3. Stable left hepatic cyst over the same almost 3 year interval. END IMPRESSION SL: [id number] Barium Swallow w On further review, small abo ut 2.0-3.0 cm hiatal hernia is present which reduced completely on the upright view. 04/24/2018 [facility] Esophagus Function DX Barium Swallow w Esophagus Function DX CLINICAL HISTORY: - K21.9 Gastro-esophageal reflux disease without esophagitis,K44.9 Diaphragmatic hernia without obstruction or gangrene. COMPARISON: CT chest of 06/01/2017. TECHNIQUE: Thin barium was u tilized for prominent LPO images. Thick barium was utilized for upright imaging of the esophagus and pharynx. Hamburger meat with paste was given to evaluate motility with solids. FINDINGS: There is no delay in passage of bolus from the pharynx into the esophagus. The cricopharyngeus relaxes normally. There is no evidence for cricopharyngeal bar or Zenker's diverticulum. Prone and LPO images of the esophagus reveal probable small hiatal hernia. Mild esophageal dysmotility is present. Upright images of the esopha alicia reveals no significant dysmotility. No mass lesions or strictures are visualized. Subsequently 2 separate swal lows of a small piece of hamburger meat and barium barium paste were fluoroscopically followed through the length of the esophagus. There is no significant delay in passage o f the solid barium bolus fro m the pharynx into the esophagus and subsequently into the stomach. IMPRESSION: Probable small hiatal hernia. Mild esophageal dy smotility is present. Fluoroscopy Time: 3.4 minute. Reference Air Kerma: 185.63 mGy SL: [id number] Arthrocentesis Major EXAM: FLUOROSCOPY-GUIDED LEFT SHOULDER ASPIRATION 04/22/2018 [facility] Joint DX DATE: 04/22/2018 13:12 NUTRIENT MANAGEMENT SPECIALIST INDICATION: - M19.012 Primary osteoarthritis, left shoulder COMPARISON: MRI dated 04/18/2018 PRE-PROCEDURE: Consent: An informed consent was obtaine d from patient prior to the procedure. Appropriate time out procedures were performed. PROCEDURE: The skin was prepped and jackelin ped in the usual fashion under aseptic precautions. 1% lidocaine was utilized for local anesthesia. Under fluoroscopic guidance a 22 gauge long spinal needle was used to access the shoulder joint. Approximately 2 mL of thick, clear synovial fluid was aspirated from the shoulder joint. No immediate complications. Preprocedure pain score: 0-4/10 Postprocedure pain score: 0/10 FLUORO TIME: [address] John Freeman, attending, was present for th e procedure. IMPRESSION: Technically successful fluor oscopy-guided left shoulder injection. Shoulder w/wo contrast MRI of the LEFT shoulder 04/18/2018 [facility] MRI INDICATION: Shoulder pain. COMPARISON: No prior studies available for marin rison. TECHNIQUE: Multiplanar multi sequence MRI pre and post 20 mL of Dotarem gadolinium contrast. FINDINGS: This study is sign ificantly limited from the susceptibility artifact created by the posterior surgical hardware within the glenoid. This limits evaluation of adjacent structures. ROTATOR CUFF AND ASSOCIATED STRUCTURES Rotator cuff: No definitive full-thickness tear of the supraspinatus, infraspinatus, and teres minor. There is a partial-thickness articular surface tear of the supraspinatus insertion measuring about 4 mm in AP dimension and invo lving slightly greater than 50% tendon thickness (series 201, image 10). Subscapularis not well seen. Bursa: No significant bursal fluid. Musculature: There is atrophy of the subscapular is. Acromioclavicular joint: The re are moderate degenerative changes of the acromioclavicular joint. A type 2 acromion configuration is noted. There is no anterior or lateral acromial downsloping. OSSEOUS STRUCTURES No definitive acute fracture . There are degenerative cystic changes noted in the bones. LONG BICIPITAL TENDON There is tendinosis of the b iceps tendon. Only the vertical portion within the bicipital groove is visualized. There is fluid within the biceps tendon sheath which appears septated. GLENOHUMERAL JOINT Joint fluid: Probable small joint effusion. Cartilage and Bone: Not well seen, however suspect significant cartilage loss, as there is evidence of chronic osseous remodeling of the glenoid with subarticular cystic changes. Labrum: Not well seen. Other support structures: No capsular or ligamen tous abnormality is seen. IMPRESSION: Limited study fr om the surgical hardware in the glenoid which creates significant artifact. 1. Small, however high-grad e partial-thickness articular surface tear of the supraspinatus insertion. 2. Probable subscapularis t endon repair with associated muscle atrophy. Correlate with prior surgical history. 3. Moderate AC joint arthrosis. 4. Probable glenohumeral ar throsis, as there is evidence of cystic changes and marrow edema in the glenoid. Suspect at least moderate osteoarthritis of the glenohumeral joint. 5. Biceps tenosynovitis. SL: [id number] Spine lumbar wo contrast Clinical Indication: M54.16 Radiculopathy, lumbar region - M54.16 Radiculopathy, lumbar region 77-year-old male with back pain for many years. Patient had lumbar surgery done in 2017 weakness in the right leg. 04/16/2018 [facility] [place] MRI Comparison: Plain film of th e lumbar spine 03/14/2016 and magnetic resonance imaging of the lumbar spine 03/16/2016 TECHNIQUE: Multiplanar T1, T 2, STIR weighted noncontrast MRI of the lumbar spine is performed on the 3 Elvira magnet. FINDINGS: Sensitivity of the examination is reduced by pat ient motion artifact. ALIGNMENT AND GENERAL ASSESS MENT: Mild dextroscoliosis of the thoracolumbar spine is seen with the apex at L1-L2. Again seen are postoperative changes of laminectomies from L3 through L5 and posterior s efren fusion from L3 through S1 and an anterior fusion at L5-S1. Retrolisthesis of L1 is seen on L2 by 1.6 mm, retrolisthesis of L2 is seen on L3 by 4 mm and anterolisthesis of L4 on L5 by 3.6 mm. Degen erative infiltration is seen in the endplates around the disc spaces about the lumbar spine but especially at the level of L2-L3 and L3-L4. The remainder of the bone marrow is normal for the patient's age. There is no fracture. The an terior and posterior paraspinal soft tissues are normal. The conus medullaris ends at the L1 level. Five lumbar vertebral bodies are confirmed on plain films dated 03/14/2016. DISC SPACES: T11-T12: Mild to moderate di sc space narrowing is seen. A shallow focal protrusion measures 1.6 mm in its AP dimension. No abnormality is seen in the visualized lower thoracic cord. No narrowing of the spinal canal or the neural foramina is seen. T12-L1: Mild to moderate dis c space narrowing is seen with diffuse decreased T2 signal. An extruded disc herniation is seen migrating to the level of the superior endplate of L1 in the left lateral rece ss measuring 11 mm CC x 2.6 mm x 6.5 mm. Mild bilateral facet arthropathies are seen. L1-L2: Mild disc space narro wing is seen. A focal protrusion to the left of midline measures 2.8 mm in its AP dimension. There is no central or foraminal stenosis. Mild bilateral facet arthropathies are seen. L2-L3: Advanced disc space n arrowing is seen with spondylosis. A broadbase osteophyte disc complex is seen measuring 6 mm in its AP dimension. No significant narrowing of the central spinal canal seen. Moderate right and moderatel y advanced left narrowing of the neural foramina due to osteophytic ridging off the inferior endplate of L2. L3-L4: Mild disc space narro wing is seen with diffuse decreased T2 signal. Mild osteophytic ridging is seen in the lateral recesses worse on the left than the right. Mild narrowing of the neural foramin a is seen. Postoperative sierra nges of bilateral laminectomies are seen. The posterior fluid collection related measuring 3 cm x 1.1 cm x 1.6 cm and is smaller than the fluid collection seen on the exam 03/16/2016. L4-L5: Mild disc space narro wing is seen with diffuse decreased signal intensity in the posterior disc space There is no central or foraminal stenosis. Postoperative changes of a bilateral laminectomy and posterior fusion are again seen. L5-S1: Postoperative changes of an anterior fusion are seen with the intradiscal fusion material identified as separate ability artifact. Patient motion at this level decreases the sensitivity on the ax ial images. Posterior fluid collections seen on today's examination is smaller than that on the previous examination. Postoperative changes of bilateral laminectomies are again seen. Mild narrowing of the neural foramina is seen. IMPRESSION: 1. A focal extruded migratin g disc herniation is seen to the left of midline at the level of T12-L1. 2. Multilevel osteophyte dis c bulges are seen with some protrusions and pseudoprotrusion is secondary to offset of the vertebral bodies described above. 3. Narrowing of the neural foramina and lateral recesses as described above. 4. The loculated fluid colle ction located posteriorly to the dural sac at the operative bed has decreased in size since the magnetic resonance imaging 03/16/2016. SL: [id number] Spine Thoracic wo Patient Name: GENARO KAUR 04/16/2018 [facility] [place] contrast MRI : 1940; Age: 77 years y/o Male MR: [id number] Study: Spine Thoracic wo contrast MRI 04/16/2018 10:57 NUTRIENT MANAGEMENT SPECIALIST Ordering Physician: Agnieszka Brambila MD Clinical Indication: M47.14 Other spondylosis with myelopathy, thoracic region - M47.14 Other spondylosis with myelopathy, thoracic region; Comparison: None TECHNIQUE: Multiplanar T1, T 2, STIR weighted noncontrast MRI of the thoracic spine is performed on the 1.5 Elvira magnet. FINDINGS: ALIGNMENT AND GENERAL SURVEY : There is normal alignment of the thoracic spine. There are no fractures or compression deformities. The thoracic spine posterior elements are normal. The costovertebral junctions are unremarkable. SPINAL CORD: The thoracic sp ine spinal cord is normal in size and signal. The CSF space is unremarkable. The conus medullaris ends at the L1 level. DISK SPACES: The discs are d esiccated throughout the thoracic spine. Multilevel moderate-severe disc height loss throughout the lower thoracic spine from T8-T9 through T12-L1 is seen with scattered Keyla c type I degenerative endpla te changes. There are small annular disc bulges with superimposed mild to moderate facet arthrosis at the levels of T8-T9 and T9-T10. Moderate-sized annular disc bulge with a dvanced facet arthrosis at T 10-T11 is seen with mild spinal canal stenosis and moderate bilateral neural foraminal narrowing. Small annular disc bulge with moderate facet arthrosis at T11-T12 is also se en with resulting mild left neural foraminal garret rowing. IMPRESSION: 1. No acute bony abnormality of the thoracic spi ne. 2. Degenerative changes of t he lower thoracic spine with mild spinal canal stenosis at T10-T11. SL: [id number] Spine cervical wo Study: Spine cervical wo contrast MRI 04/16/[address] [facility] contrast MRI Clinical Indication: M54.12 Radiculopathy, cervical region - M54.12 Radiculopathy, cervical region Comparison: None TECHNIQUE: Multiplanar, mult isequence magnetic resonance imaging of the cervical spine was performed without the administration of intravenous gadolinium contrast. FINDINGS: There is grade 1 anterolisth esis of C3 over C4 by 1 mm. No focal marrow signal abnormality is present. The prevertebral soft tissues, atlanto-dental interspace, and craniocervical junction are within no rmal limits. The visualized brainstem region is unremarkable. The cervical spinal cord is normal in size and signal. The discs are desiccated thr oughout the cervical spine. Mild disc height loss at C3-C4 is seen. Severe disc height loss from C4-C5 through C6-C7 is noted. DISC SPACES: C2-C3: Negative for signific ant disc bulge or protrusion. Moderate right facet arthrosis is noted. There is mild right neural foraminal narrowing without spinal canal stenosis. C3-C4: Small circumferential disc osteophyte complex is seen. Moderate left facet arthrosis is seen. Mild right facet arthrosis is also noted. There is mild spinal canal stenosis with the thecal sac mya suring 9.5 mm AP dimension. Severe left and mild right neural foraminal narrowing is present. C4-C5: Large circumferential disc osteophyte complex with superimposed uncovertebral arthrosis is seen. Mild facet arthrosis is present. There is mild to moderate spinal canal stenosis with thecal sac m easuring 8.5 mm AP dimension . Severe bilateral neural foraminal narrowing is present. C5-C6: Large circumferential disc osteophyte complex with superimposed uncovertebral arthrosis is seen. Mild facet arthrosis is noted. There is mild to moderate spinal canal stenosis with thecal sac mya suring 8.5 mm AP dimension. Moderate-severe bilateral neural foraminal narrowing, left greater than right, is present. C6-C7: Large circumferential disc osteophyte complex with superimposed uncovertebral arthrosis is seen. Mild facet arthrosis is noted. There is mild spinal canal stenosis with the thecal sac measuring 9 mm AP dimension. Severe bilateral neural forami nal narrowing is noted. C7-T1: Negative for signific ant disc bulge or protrusion. Moderate-severe facet arthrosis, left greater than right, is seen. There is no spinal canal stenosis or neural foraminal narrowing. IMPRESSION: 1. Advanced multilevel degen erative changes of the cervical spine with mild spinal canal stenosis and severe left neural foraminal narrowing at C3-C4. 2. C4-C5 mild to moderate sp inal canal stenosis with severe bilateral neural foraminal narrowing. 3. C5-C6 mild to moderate sp inal canal stenosis with moderate-severe bilateral neural foraminal narrowing, left greater than right. 4. C6-C7 mild spinal canal s tenosis with severe bilateral neural foraminal narrowing. SL: [id number] Chest wo contrast CT EXAM: CT chest 06/01/2017 [facility] [place] HISTORY: Dyspnea COMPARISON: CT chest 03/13/2016 TECHNIQUE: Axial images of t he chest with sagittal and coronal reformats. No contrast. [id number] FINDINGS: Respiratory motion LUNGS: Interstitial opacitie s in the lung bases. 7 mm lung nodule left lower lobe, series 3, image 43 previously measured 4 mm. Calcified granuloma right lower lobe. No new nodule is seen. MEDIASTINUM AND AXILLAE: Few small lymph nodes are stable. 1.5 cm lymph node right retropectoral region, series 2, image 18 is larger. Calcified lymph node right hilum. Mild coronary artery calcifications. Left PICC i n the SVC. PLEURA: No effusion. BONES: Moderate spondylosis thoracic spine. IMPRESSION: 1. Mild airspace disease in the lung bases may reflect dependent atelectasis or interstitial pneumonia. 2. 7 mm lung nodule left low er lobe is slightly larger, neoplasm is not excluded. A PET/CT can further evaluate. 3. Increased size of 1.5 cm lymph node right retropectoral region. This can also be evaluated at PET/CT. 4. Old healed granulomatous disease. 5. Minimal coronary artery calcifications. SL: [id number] Chest 1 v for Placement EXAM: PA AND LATERAL CHEST X RAY 018 [facility] DX DATE:05/03/2017 12:49 PM NUTRIENT MANAGEMENT SPECIALIST . ORDERING PHYSICIAN: Kasandra Alexandra MD CLINICAL INDICATION: Line Placement - Chest 1 vi ew for line placement; TECHNIQUE: PA and lateral views of chest COMPARISON: Chest x-ray of 03/17/2016 FINDINGS: See below IMPRESSION: 1. Left arm PICC line tip is in good position ov erlying the lower SVC 2. Well-inflated lungs with scattered pulmonary scarring. There is no substantial consolidation 3. Stable heart and mediastinal contours includi ng ectatic aorta Shoulder series DX EXAMINATION: Right shoulder series 05/01/2017 [facility] HISTORY: Right rotator cuff arthropathy FINDINGS: 2 to 3 views of th e right shoulder are performed and compared to 04/13/2017. There is a reverse ball-and- socket right total shoulder arthroplasty projecting in unchanged near-anatomic alignment without periprosthetic fracture or osteolysis. There has been interval placement of a surgical drain. There is no evidence of scapular notching. There is mild right acromioclavicular osteoarthritis. Mild right basilar atelectasis is noted. IMPRESSION: 1. Reverse [id number] r ight total shoulder arthroplasty in unchanged near- anatomic alignment with interval placement of a surgical drain. Shoulder series DX HISTORY: - AP and Grashey in PACU 8 [facility] TECHNIQUE: Frontal and Grashey views of the righ t shoulder. COMPARISON: Study from earlier today. FINDINGS: Stable alignment o f right total shoulder arthroplasty. No evidence of acute fracture or dislocation. Linear atelectasis is noted within the right lung. IMPRESSION: Stable surgical change as above. [id number] Shoulder series DX HISTORY: Trauma - Right shoulder pain 2017 [facility] TECHNIQUE: Internal and exte rnal rotation views of the right shoulder as well as scapular Y view. COMPARISON: Study dated 03/18/2017. FINDINGS: Changes from prior right total shoulder arthroplasty again seen. Hardware appears well positioned with no evidence of complication or failure. No evidence of acute fracture or dislocation. Visualized portion of the right lung is clear. IMPRESSION: Stable surgical change as above. No acute osseous injury. [id number] Shoulder series DX Patient Name: GENARO KAUR 7 [facility] : 1940; Age: 76 years Male MR: [id number] Study: Shoulder series DX 03/18/2017 8:38 PM NUTRIENT MANAGEMENT SPECIALIST CLINICAL INDICATION: - s/p reduction COMPARISON: Earlier shoulder radiographs FINDINGS: Views and laterality: Right shoulder 2 views The humeral and glenoid pros thetic components now appear in normal alignment. No evidence of hardware loosening. No displaced fracture. The AC joint is intact. No gross soft tissue abnormalities. IMPRESSION: Status post reduction of the dislocated right sh oulder arthroplasty. SL: LINSEY Shoulder series DX Exam: Right Shoulder series DX 03/18/2017 [facility] Clinical Indication: - Shoulder pain and possib le dislocation Comparison: Right shoulder radiographs 7 FINDINGS: 4 views of the right shoulder are performed. Status post right reverse to marquise shoulder arthroplasty. There is anterior dislocation with the humeral component anterior to the glenoid component. Hardware otherwise appears intact. No acute fracture id entified. The acromioclavicu lar joint is normally aligned with mild degenerative changes. The soft tissues are unremarkable. No soft tissu e radiopaque foreign body. IMPRESSION: Anterior dislocation of right reverse total shou lder arthroplasty. SL: [id number] Shoulder series DX Clinical Information : Postoperative art hroplasty. 01/26/2017 [facility] : 1940 Sex: Male. Technique: 2 post operative views of the left ri ght shoulder. Findings: Normally articulat ed right shoulder reverse arthroplasty. Soft tissue surgical defects. No other abnormalities. Abdomen AP DX PROCEDURE: ABDOMEN SINGLE VIEW 03/22/2016 [facility] Clinical Indication: Abdominal distension. ; Comparison: 03/17/2016 FINDINGS: 2 supine images of the abdomen and pelvis were obtained. The bowel gas pattern is within normal limits. No pneumatosis gross free air, soft tissue masses or pathologic calcifications. Anastomo tic suture material in the p elana compatible with previous sigmoid surgery. Left pelvic hemostasis clips appear stable. Previous lumbar fusion. Orthopedic hardware intact. No acute skeletal abnormality. IMPRESSION: 1. No acute radiographic abnormality. No evidenc e for obstruction. SL: [id number] Chest 2 views DX PROCEDURE: Chest Radiograph. 03/17/2016 [facility] Clinical Indication: Line placement. Comparison: Chest radiograph 03/04/2016. FINDINGS: The chest shows interval rem oval of a previously noted right-sided PICC line and NG tube. There is subsegmental atelectasis in the right midlung zone. No focal consolidation is identified. There is a calcified granuloma in the right lower lobe. The cardiac silhouette is up per limits of normal in size and the thoracic aorta is somewhat tortuous. Multiple orthopedic screws and anchors are noted in the left glenoid. IMPRESSION: 1. Minimal subsegmental atelectasis in the right midlung zone. [id number] Abdomen AP DX Procedure: Abdominal Radiographs. 03/17/2016 [facility] Clinical Indication: Constipation. Comparison: Abdominal radiographs 03/08/2016. FINDINGS: Radiographs of the abdomen, 2 views, demonstrate a nonspecific bowel gas pattern with a few loops of prominent small bowel in the midline. Air is noted throughout the colon. No definitive yanna l obstruction or free intrap eritoneal air is observed. Degenerative and postoperative change involves the lumbosacral spine. No pathologic calcifications are identified. IMPRESSION: 1. Nonspecific bowel gas pat tern with prominent loops of small bowel in the central abdomen, minimal ileus cannot be entirely excluded. 2. Postoperative and degenerative change involvi ng the lumbosacral spine. [id number] Spine Sacrum wo contrast Examination: Magnetic resona nce imaging sacrum without contrast 03/16/2016 [facility] DATE: 03/17/2016 Center INDICATION: Back pain. Lumbar fusion. Suspect in fection. Multiplanar images of the sa janice are obtained without contrast. Comparison is made to study of the lumbar spine performed the previous day. There is no marrow edema in the sacrum to suggest osteomyelitis. Changes of anterior discectomy and fusion at the lumbosacral junction with compression screws and an interbody spacer are noted. There is no inflammatory change in t he disc space or paraspinal region to suggest discitis at the fusion level. A postoperative fluid collec tion occupying and extensive laminectomy defect between L3 and S1 is again noted extending inferiorly to the S2 level. There is some T2 signal abnormality in the multifidus muscles dorsal to the collection. The sacroiliac joints are unremarkable. IMPRESSION: Normal examination of the sacrum. Spine lumbar wo contrast EXAM: MRI LUMBAR SPINE WITHOUT CONTRAST 03/16/2016 [facility] MRI DATE: 03/16/2016 at 1839 hours. Center INDICATION: Backache.To rule out spondylitic dis citis COMPARISON: Previous preoper ative MR dated 11/10/[address] abdomen pelvis dated 03/01/2016. . TECHNIQUE: Sagittal T1, sagi ttal T2, sagittal T2 with fat saturation, axial T1, and axial T2-weighted images of the lumbar spine are obtained without contrast. DISCUSSION: Post-operative status is not ed from L3 to S1 with multilevel laminectomies/ laminotomies. Spinal fixation with transpedicular screws and rods is noted.L5-S1 anterior fusion with retaining screws and int ervertebral screws is seen. Fluid is seen in the posterior midline from L2 to S2 measuring 13.5 x 3.6 x 8.8 cm. Minimal post operative fluid is seen at L5-S1 anteriorly. No obvious common location with the spinal canal is noted. Mild accentuation of lumbar lordotic curvature is seen, mild levoscoliosis is noted. The lumbar vertebrae appear normal in shape and signal intensity. There is a trace of L2 on L3. Mild anterolisthesis of L4 on L5 seen. The conus medullaris terminates at L1. It has a normal contour and normal signal characteristics. No intradural pathology is identified. Individual levels: T10-T11: Disc desiccation wi th reduction in disc height. Mild irregular endplate changes. Focal small posterior central protrusion indenting the ventral thecal sac. Mild ligament impingement thickening indenting the posterior thecal sac noted. T11-T12 normal: T12-L1: Degenerative margina l osteophytes and irregular fatty endplate changes. Small left paracentral disc disc osteophyte indenting the ventral thecal sac. No spinal canal or neural foraminal narrowing. L1-L2: Unremarkable. L2-L3: Degenerative disc anthony iccation and reduction in disc height. Endplate osteophytes and irregular fatty endplate changes. The disc appears hyperintense on T2-weighted images. Diffuse annular bulge w ith surrounding endplate ost eophytes are seen indenting the ventral thecal sac. L3-L4: Disc desiccation and mild irregular surrounding endplate changes. Mild diffuse posterior bulge seen indenting the ventral thecal sac. Decompressive laminectomy noted with widening of the spinal canal and no obvious thecal compression. L4-L5: mild anterolisthesis of L4 on L5. No obvious disc bulge. The canal and neural foramina appear patent with no evidence of neural compression. L5-S1: Post laminectomy stat us status with patent spinal canal and neural foramina. IMPRESSION: 1. Status post multilevel l aminectomies spanning L3 through S1 with posterior spinal fusion and instrumentation, and anterior fusion at L5-S1 2. Posterior midline collec tion under the paraspinal muscles along the operative bed. 3. Minimal anterior prevertebral fluid and L5-S 1. 4. No evidence of spondylodiscitis 5. No significant neural foraminal or spinal ca nal compromise 6. Degenerative discovertebral changes Spine lumbar 2 or 3 views EXAM: XR LUMBAR SPINE 3 VIEWS 03/14/20 16 [facility] DX DATE: 03/14/2016 at 0943 hours C enter INDICATION: Backache ADDITIONAL INFORMATION: 75 y o M POD #22 s/p L4-S1 posterior BOY, L5-S1 ALIF, PSIF L3-S1, decompression/laminectomy L3-L4 with R L3-L4 facetectomy, R L5-S1 facetectomy COMPARISON: Radiograph the c ervical spine dated 02/23/2016. CT abdomen pelvis with IV contrast dated 03/01/2016. TECHNIQUE: AP, coned lateral and lateral radiogr aphs of the lumbar spine FINDINGS: 5 lumbar type, non-rib beari ng vertebral bodies are present. Posterior surgical spinal fusion from L3 to S1 with bilateral intrapedicular screws and stabilization rods as well as the intravertebral body screws at the L5-S1 appear unchanged. No perihardware lucency or change in alignment is noted. No acute fracture is identif ied. Vertebral body heights are maintained. Grade 1 degenerative retrolisthesis is once again noted at L2-L3. Alignment is within normal limits. Moderate to severe degenerat priya disc disease is once aga in seen seen with disc space narrowing noted at the T11-T12, T12-L1, L1-L2, and L2-L3. No soft tissue abnormality is identified. IMPRESSION: 1. Unchanged appearance of posterior spinal fusion at L3-S1 without evidence of hardware failure. 2. Moderate to severe multilevel degenerative d isc disease. 3. Grade 1 degenerative retrolisthesis at L2-L3 . Chest wo contrast CT EXAM: CT CHEST WITHOUT CONTRAST 03/13/2016 [facility] DATE: 03/13/2016 11:05 AM NUTRIENT MANAGEMENT SPECIALIST Ce nter INDICATION: Cough and fever COMPARISON: 03/01/2016 CT TECHNIQUE: Volumetric CT acq uisition of the chest was performed without intravenous contrast. Axial, sagittal and coronal reconstructions. Reformatted MIP images were performed. IV Contrast: None. DLP: [id number] mGy-cm FINDINGS: Lines and Tubes: Right PICC with tip overlying d istal SVC. Heart and Great Vessels: The aorta and main pulmonary artery measure 3.4 and 2.7 cm. respectively. The cardiothoracic radio measures 12/28. No pericardial effusion is present. Minimal coronary artery vascular calcifications are present. Normal aort ic branching pattern present. Lymph Nodes: Scattered small lymph nodes, not en larged by size criteria. Lungs: There is minimal isa pical scarring with no pneumothorax identified. Trachea and central bronchi are unremarkable. There is no pleural effusion. 4 mm nodule left lower lobe axial image 152, 1 to 2 mm nodule right lower lobe axial image 127, stable. Scattered groundglass and nodular airspace opacities, some of which demonstrate centrilobular/tree-in-bud configuration again noted most notably in the right upper lobe, right middle lobe, right lower lobe, and left lower lobe. Coalescent nodular areas in the lower lobes are slightly more conspicuous. Upper abdomen: Small amount of simple fluid about the liver and spleen. Simple cyst central liver present. Bones and Soft Tissues: Mild degenerative changes spine. Postsurgical changes left glenoid. IMPRESSION: 1. Persistence scattered gr oundglass and nodular airspace opacities predominantly involving the dependent portions of the upper and lower lobes most consistent with an infectious/inflammatory process. Recurrent aspiration would have this appearance. 2. Small pulmonary nodules again identified, possibly part of above described infectious/inflammatory process. CT follow-up recommended. 3. Small amount of simple abdominal free fluid. Abdomen AP DX EXAM: XR ABDOMEN 1 VIEW 03/08/2016 [facility] DATE: 03/08/2016 11:13 AM NUTRIENT MANAGEMENT SPECIALIST Ce nter INDICATION: Abdominal distension ADDITIONAL INFORMATION: None. COMPARISON: 03/05/2016 TECHNIQUE: AP view of the abdomen. FINDINGS: NG tube side port overlies t he GE junction. Recommend further advancement. Lumbar surgical hardware is stable. No small or large bowel dilation. Impression: Nonobstructive bowel gas pattern. Abdomen 1 v for Placement EXAM: XR ABDOMEN 1 VIEW 03/05/2016 [facility] DX DATE: 03/05/2016 12:11 PM NUTRIENT MANAGEMENT SPECIALIST Ce nter INDICATION: Tube Reposition NG COMPARISON: 03/05/2016 TECHNIQUE: Limited AP view of the abdomen for tube placement assessment. Number of images: 1 FINDINGS: Transesophageal feeding tube, none present Transesophageal suction tube sidehole in the fundal region of the stomach and needs to be further advanced. Other tubes and lines: None. No other changes. IMPRESSION: Tube positions as above. Abdomen AP DX EXAM: XR ABDOMEN 1 VIEW 03/05/2016 [facility] DATE: 03/05/2016 at 0922 hours C enter INDICATION: Abdominal distension ADDITIONAL INFORMATION: None. COMPARISON: 03/04/2016 at 0917 hours TECHNIQUE: AP view of the abdomen. FINDINGS: Lines, tubes and hardware: * Enteric suction tube has its sidehole at the GE junction. Advancement recommended. * Navarro catheter has its tip in the exp ected position of the urinary bladder. * Surgical hardware is unchanged. Lower thorax: Unremarkable where visualized. Bowel: Dilated loops of bowel in keeping with ileus versus obstruction remain. Other abdominal organs: No abnormal mass or orga nomegaly seen. Calcifications: No abnormal calcifications found . Bones: No acute abnormality. Extraabdominal soft tissues: Normal. IMPRESSION: 1. Unchanged dilated loops of bowel, likely ileus. Continued surveillance with serial radiographs may be obtained to ensure resolution and exclude obstruction. 2. Enteric suction tube sidehole at the GE junction. Advancement recommended. Chest 1view DX EXAM: XR CHEST 1 VIEW 03/04/2016 [facility] DATE: 03/04/2016 2:47 PM NUTRIENT MANAGEMENT SPECIALIST Geoff ter INDICATION: Dyspnea COMPARISON: 03/02/2016 FINDINGS: Sideholes of NG tube or just below the GE junction. Right PICC is present with tip overlying the proximal right atrium. Post surgical changes in the left glenoid again noted. Mild prominence of the cardi ac silhouette likely secondary to lower lung volumes. While evaluation is limited given semi-erect positioning, no distinct pneumothorax is identified. Linear opacities in t he lung bases have the appearance of atelectasis . IMPRESSION: 1. Stable lines and tubes. Advancement of NG tu be recommended. 2. Basilar atelectasis. Abdomen AP DX EXAM: XR ABDOMEN 1 VIEW 03/04/2016 [facility] DATE: 03/04/2016 at 0917 hours C enter INDICATION: Abdominal distension ADDITIONAL INFORMATION: None. COMPARISON: 03/03/2016 at 0835 hours TECHNIQUE: AP view of the abdomen. FINDINGS: Lines, tubes and hardware: * Enteric suction tube has its sidehole at the GE junction. Advancement recommended. * Rectal catheter has been removed. * Navarro catheter has its tip in the exp ected position of the urinary bladder. * Surgical hardware is unchanged. Lower thorax: Unremarkable where visualized. Bowel: Dilated loops of bowel in keeping with ileus versus obstruction remain. Other abdominal organs: No abnormal mass or orga nomegaly seen. Calcifications: No abnormal calcifications found . Bones: No acute abnormality. Extraabdominal soft tissues: Normal. IMPRESSION: 1. Unchanged dilated loops of bowel, likely ileus. Continued surveillance with serial radiographs may be obtained to ensure resolution and exclude obstruction. 2. Enteric suction tube sidehole at the GE junction. Advancement recommended. Abdomen AP DX EXAM: XR ABDOMEN 1 VIEW 03/03/2016 [facility] DATE: 03/03/2016 9:00 AM [facility]IST Cent er INDICATION: Abdominal distension COMPARISON: 03/01/2016 TECHNIQUE: Single AP view of the abdomen. 3 image(s) obtained. FINDINGS: Lines and tubes: Enteric suc tion tube side port overlies the proximal stomach. Colonic decompression tube has been retracted now overlying the rectum. Navarro catheter remains in pl golden. Partially visualized right central venous catheter tip overlying the cavoatrial junction. Lower thorax: Unremarkable where visualized. Bowel: Nonobstructive bowel gas pattern. Multiple persistent gaseous distended loops of small bowel without significant air seen in the colon or rectum. Small bowel measures up to 6 cm in the left upper quadrant, previously measuring approximately 5. 4 cm. Solid organs: No abnormal mass or organomegaly s een. Calcifications: No abnormal calcifications found . Bones: Unchanged Other: None IMPRESSION: 1. Tubes, as above. 2. Slight interval worsenin g of diffuse moderate gaseous dilation of small bowel may represent progressing ileus or obstruction. Chest 1 v for Placement EXAM: XR CHEST 1 VIEW 03/02/2016 [facility] DATE: 03/02/2016 2:43 PM [facility]NAGEMENT SPECIALIST Cent er INDICATION: PICC Line Placement COMPARISON: 03/01/2016 TECHNIQUE: AP chest IMPRESSION: 1. Interval placement of rig ht PICC line with tip projects over the atriocaval junction, no complications. 2. Again seen the NG tube bu t was interval retraction with the sidehole currently seen above the GE junction and advancement is recommended. 3. Trace left pleural effusion. Minimal left bas ilar atelectatic changes. 4. No consolidative lung lesions. 5. Cardiomediastinal silhouette is enlarged, unc hanged. 6. No acute osseous abnormalities. Abdomen/Pelvis w IV EXAM: CT ABDOMEN AND PELVIS WITH IV CONTRAS T 03/01/2016 [facility] contrast CT DATE: 03/01/2016 10:34 AM NUTRIENT MANAGEMENT SPECIALIST [facility] INDICATION: Abdominal distension ADDITIONAL INFORMATION: None. COMPARISON: CT abdomen and pelvis 02/27/2016 TECHNIQUE: Volumetric CT acq uisition of the abdomen and pelvis after the intravenous administration contrast. Axial, coronal and sagittal reconstructions. Postcontrast phases: Venous and delayed. IV contrast: 100 mL Omnipaque 350 Oral contrast: Gastrografin DLP: 2736 mGy-cm. FINDINGS: Lines and tubes: Enteric suc tion tube terminates in the proximal gastric body. A colonic decompression tube has been placed with tip in the cecum. Visualized lower thorax: Pat connie airspace opacities in the lower lobes. Please refer to concurrently dictated CT of the chest. Gastroesophageal junction:Unremarkable. Liver/biliary tree: No hepat ic masses are present. Stable left hepatic lobe cyst. No biliary ductal dilation. Gallbladder: Normal. No CT evidence of gallstone s. Portal, SMV and splenic veins: Grossly unremarka ble. Spleen: Normal. Adrenals: Normal. Pancreas: Mild fatty parenchymal atrophy. No mas s or ductal dilation. Kidneys and ureters: Unchanged noting left perip elvic cysts. Bladder: Decompressed around a Navarro catheter. Reproductive organs: No CT abnormality. Gastrointestinal tract: Mult iple contrast and fluid-filled loops of small bowel are again seen. Contrast material is seen within the cecal tip, which is slightly thickened with small adjacent free fluid (series 5, image 56). Gradu al zone of transition noted in the right mid to lower abdomen in the region of the distal ileum (series 4, image 46 and series 5, images 28-54). Additionally, within this reg ion are multiple loops of di stal ileum lateral to the ascending colon and cecum residing in the right paracolic gutter suggestive of an internal hernia (series 5, images 39-48). No pneumatosis is seen. The colon is decompressed. R ectosigmoid anastomosis with multiple adjacent diverticula are noted. Peritoneum and retroperitone um: Scattered small volume ascites is not significantly changed. No free air. No organized fluid collection. Lymph nodes: No lymphadenopathy by CT size crite kristina. Abdominal aorta: Abdominal a jeancarlos is patent without aneurysmal dilation.Moderate calcific atherosclerosis is present. Iliac arteries: Iliac arteries are patent withou t dilation. Bones: Postsurgical changes of L3 S1 posterior i nstrumented fusion. Soft tissues: Mild soft tiss ue swelling and edema to surgical site without evidence of infection. There is mild body wall edema. IMPRESSION: 1. Multiple persistent flui d and contrast-filled dilated loops of small bowel with gradual zone of transition in the right lower/mid abdominal quadrant distal ileum most likely representing severe ileu s and less likely partial connor wel obstruction. Overall degree of dilation is not significantly changed from 02/27/2016. Continued close monitoring and serial surveillance radiographs are advised to resolution. 2. Interval decompression o f the colon with placement of decompression tube tip in the distal cecum. Mild wall thickening of the cecal tip with small adjacent free fluid noted, which may be reactive. 3. Loops of small bowel are seen lateral to the cecum and ascending colon in the right paracolic gutter, likely representing a defect in the mesentery and internal hernia. 4. Small scattered abdominal free fluid not sig nificantly changed. 5. Recent postsurgical changes of posterior ins trumented fusion at L3-S1. Chest w contrast CT EXAM: CT CHEST WITH CONTRAST 03/01/2016 [facility] DATE: 03/01/2016 10:34 AM NUTRIENT MANAGEMENT SPECIALIST [facility] INDICATION: Abdominal distension COMPARISON: 02/23/2016 CT TECHNIQUE: Volumetric CT acq uisition of the chest, following intravenous contrast. Axial, sagittal and coronal reconstructions. Reformatted MIP images were obtained. IV Contrast: 100 mL Omnipaque 350. DLP: 643 mGy-cm FINDINGS: Lines and Tubes: Gastric catheter courses into t he stomach. Heart and Great Vessels: The aorta and main pulmonary artery measure 3.4 and 2.7 cm. respectively. The cardiothoracic radio measures 12/27. No significant pericardial effusion is present. While not ta ilored for pulmonary artery evaluation, no central pulmonary embolus is identified. Routine aortic branching pattern is present. Mild vascular calcifications are present in the left anterior descending. Lymph Nodes: No suspicious a denopathy. Small calcified right hilar lymph nodes. Lungs: There is mild biapic al scarring with no pneumothorax identified. Trachea and central bronchi are unremarkable. No pleural effusion is present. There are dependent opacities in the lung bases and posterior aspect of the rig ht upper lobe suggesting atelectasis. Superimposed patchy areas of alveolar consolidation and groundglass consolidation are additionally present in the right upper lobe, righ t middle lobe, right lower l obe, and left lower lobe. There is a 5 mm nodule left lower lobe axial image 128. 1 to 2 mm noncalcified nodule right lower lobe axial image 108. Right lower lobe granuloma axial image 107. Upper abdomen: Please see C T of the abdomen and pelvis performed concurrently for findings below the diaphragm. Bones and Soft Tissues: Mild degenerative changes thoracic spine. Postsurgical changes left glenoid. IMPRESSION: 1. Scattered bilateral patc hy alveolar opacities suggest an acute infectious/inflammatory process. 2. Evidence of prior granulomatous disease. 3. 5 mm left lower lobe and 1 to 2 mm right lower lobe noncalcified pulmonary nodules. [address] follow-up recommended. 4. Please see concomitant CT abdomen. Abdomen AP DX EXAM: XR ABDOMEN 1 VIEW 03/01/2016 [facility] DATE: 03/01/2016 3:00 AM [facility] er INDICATION: Abdominal distension COMPARISON: 02/29/2016 at 1819. TECHNIQUE: AP view of the abdomen. IMPRESSION: 1. A nasogastric tube (tip and side-port) is present projecting over the region of the stomach. 2. Dilated small bowel loops, suggestive of ile us. 3. Abdominal drain in place. 4. Postoperative changes of the lumbosacral spi ne. Chest 1view DX EXAM: XR CHEST 1 VIEW 03/01/2016 [facility] DATE: 03/01/2016 3:00 AM NUTRIENT MANAGEMENT SPECIALIST Cent er INDICATION: Abnormal chest sounds COMPARISON: Yesterday. TECHNIQUE: AP chest FINDINGS: Lines and tubes: Nasogastric tube extends below the inferior border of the exam. Lungs and pleura: There is s cattered platelike atelectasis in the both lung bases. Low lung volumes. No new pulmonary or pleural based abnormality is identified. Heart and mediastinum: Stable mediastinal contou rs. IMPRESSION: 1. No significant interval changes. Ext Lower Venous Doppler EXAM: US BILATERAL LOWER EXTREMITY VENOUS DOPPLER 02/29/2016 [facility] Bilat US DATE: 02/29/2016 4:55 PM [facility]NAGEMENT SPECIALIST Cent er INDICATION: Tachypnea, unabl e to perform CTA to evaluate for pulmonary embolism ADDITIONAL INFORMATION: Admi tted 02/21/2016 following elective spine surgery with postop course, dictated by GI bleed COMPARISON: None. TECHNIQUE: Multiplanar eliceo mariel, color Doppler and spectral Doppler ultrasound of the bilateral lower extremity veins. FINDINGS: Right Thigh Veins: Common Femoral: Patent. Femoral (SFV): Patent. Popliteal: Patent. Proximal Greater Saphenous: Patent. Deep Femoral Veins: Patent. Left Thigh Veins: Common Femoral: Patent. Femoral (SFV): Patent. Popliteal: Patent. Proximal Greater Saphenous: Patent. Deep Femoral Veins: Patent. Note is made of trace subcut aneous fluid within the right groin. No organized fluid collection. IMPRESSION: No deep venous thrombosis (DVT). Abdomen AP DX EXAM: XR ABDOMEN 1 VIEW 02/29/2016 [facility] DATE: 02/29/2016 5:58 PM [facility]NAGEMENT SPECIALIST Cent er INDICATION: Vomiting COMPARISON: 02/29/2016 at 0810 hours TECHNIQUE: Single AP view of the abdomen. 3 image(s) obtained. FINDINGS: Lines and tubes: Enteric suc tion tube side port and tip project over the duodenal bulb and mid descending duodenum respectively. Colonic decompression tube is again noted with tip overlying the cecum. Lower thorax: Unremarkable where visualized. Mil d left basilar atelectasis. Bowel: Multiple dilated loop s of small bowel are again noted throughout the abdomen with moderate gaseous distention of the stomach. Loops of small bowel in the left lower quadrant measure 4.7 cm, previously measuring approximately 3.8 cm. Solid organs: No abnormal mass or organomegaly s een. Calcifications: No abnormal calcifications found . Bones: Unchanged. Other: None IMPRESSION: 1. Repositioning of enteric suction tube coiled in the gastric fundus with side port overlying the antroduodenal region. Stable positioning of colonic decompression tube. 2. Multiple dilated loops o f air-filled small bowel again seen and may be slightly worsened since the prior study of same date. Findings may represent worsening ileus or obstruction and continued close monitoring advised. Chest 1view DX EXAM: XR CHEST 1 VIEW 02/29/2016 [facility] DATE: 02/29/2016 4:23 PM NUTRIENT MANAGEMENT SPECIALIST [facility] er INDICATION: Chest tightness COMPARISON: 02/27/2016 at 0836. TECHNIQUE: AP chest FINDINGS: Lines and tubes: None. Lungs and pleura: There is s cattered platelike atelectasis in the left lung base. No new pulmonary or pleural based abnormality is identified. Heart and mediastinum: Stable mediastinal contou rs. IMPRESSION: 1. There is platelike atelectasis in the left l lena base. 2. No evidence for new airspace consolidation. Abdomen AP DX EXAM: XR ABDOMEN 1 VIEW 02/29/2016 [facility] DATE: 02/29/2016 9:00 AM NUTRIENT MANAGEMENT SPECIALIST [facility] er INDICATION: Abdominal distension ADDITIONAL INFORMATION: None. COMPARISON: KUB 02/28/2016, 0923 hours TECHNIQUE: AP view of the abdomen. Number of im ages: 2 FINDINGS: Transesophageal suction tube : The distal portion is coiled and the tip overlies the proximal body pointed antegrade. Transesophageal feeding tube: None. Other tubes and lines: There is a rectal tube with the tip overlying the cecum. Bowel: There are mildly dila vasyl loops of small bowel that have mildly decreased in caliber compared to the prior study. Fecal [place]: Minimal. Bones: No acute abnormalities seen. Soft tissues. Unremarkable. IMPRESSION: 1. Mild small bowel dilatat ion consistent with ileus that is improved since the prior study. 2. Tube(s) and/or catheter(s) as above. Abdomen AP DX EXAM: XR ABDOMEN 1 VIEW 02/28/2016 [facility] DATE: 02/28/2016 9:00 AM [facility]NAGEMENT SPECIALIST Cent er INDICATION: Abdominal distension COMPARISON: CT of abdomen and pelvis on 02/27/20 16 TECHNIQUE: AP view of the abdomen. FINDINGS: Lines and tubes: An enteric suction tube is present with the tip and side-port overlying the gastric body. Lower thorax: There is left basilar subsegmental atelectasis. Bowel: There is extensive gaseous distention of the small and large bowel. Solid organs: No abnormal mass or organomegaly s een. Calcifications: No abnormal calcifications found . Soft tissues: Surgical clips are seen overlying the left hemipelvis. Bones: Status post posterior fusion of the lumba r spine. IMPRESSION: 1. Gaseous distention of la rge and small bowel is unchanged from 02/27/2016 and likely represents ileus. Continued follow-up with serial abdominal radiographs is recommended. 2. Left basilar subsegmental atelectasis. 3. Lines and tubes as above. Abdomen/Pelvis w IV EXAM: CT ABDOMEN AND PELVIS WITH CONTRAST [facility] contrast CT DATE: 02/27/2016 12:43 PM NUTRIENT MANAGEMENT SPECIALIST [facility] INDICATION: Abdominal distension ADDITIONAL INFORMATION: POD #7 status post L3-S1 spinal fusion. COMPARISON: CT pulmonary embolism on 02/23/2016 TECHNIQUE: Volumetric CT acq uisition of the abdomen and pelvis after the intravenous administration contrast. Axial, coronal and sagittal reconstructions. Postcontrast phases: Venous and delayed. IV contrast: 97 mL of Visipaque 320 Enteric contrast: Gastrografin DLP: 1958 mGy-cm FINDINGS: Lines, tubes and hardware: D istal tip NG tube is in fundus of stomach. Surgical fouzia noted in the distal sigmoid colon. Lower thorax: Trace bilatera l dependent pleural effusions with adjacent subsegmental atelectasis, left greater than right. Liver: Normal contour and si ze. The hypodense lesion in segment 2/3 is again noted unchanged, likely representing a benign hepatic cyst. Biliary tree: No intra- or extrahepatic biliary ductal dilation. Gallbladder: Normal. No CT evidence of gallstone s. Pancreas: Normal. Spleen: Normal. Adrenals: Normal. Kidneys and ureters: Small s ubcentimeter superior pole right kidney cyst. There is a focal hypodensity measuring 3.8 x 3.1 x 2.8 cm and the left kidney interpolar region, likely representing a renal cys t. Bilateral perinephric str anding is noted. No nephrolithiasis or hydronephrosis. Normal excretion of contrast bilaterally Bladder: Decompressed with Navarro catheter. Reproductive organs: No CT abnormality. Gastrointestinal tract: Norm al caliber stomach. There is progressive dilatation of the small bowel from the duodenum to the terminal ileum with associated wall thickening and mild adjacent fat stranding . The proximal colon is dila vasyl before tapering to normal caliber in the sigmoid colon. There are multiple air-fluid levels throughout the small and large bowel. There is no stenosis of the sigmoid colo n anastomotic site. These findings are most cons istent with ileus. Appendix: Not visualized. Peritoneum, mesentery and re troperitoneum: Normal. No free air, ascites or loculated fluid. Lymph nodes: Normal. Vasculature: Normal. Bones: Post surgical changes of L3-S1 fusion hardware again noted. Moderate degenerative changes of thoracolumbar spine. Mild retrolisthesis of L2 on L3. Diffuse thoracolumbar disc space narrowing and osteophytosis. Soft tissues: There is soft tissue swelling and edema at the surgical site, as expected. No focal fluid collections or abscesses are identified. IMPRESSION: 1. Multiple loops of dilate d small and large bowel without transition point is consistent with ileus. 2. Status post L3-S1 fusion with expected postoperative changes. No focal fluid collections or abscesses are identified. 3. Trace bilateral pleural effusions with associated atelectasis, left greater than right. 4. Right kidney cyst. 5. Unchanged hepatic cyst. RECOMMENDATIONS: None. Abdomen AP DX EXAM: XR ABDOMEN 1 VIEW 02/27/2016 [facility] DATE: 02/27/2016 8:33 AM NUTRIENT MANAGEMENT SPECIALIST Cent er INDICATION: Abdominal fullness ADDITIONAL INFORMATION: None. COMPARISON: KUB 02/27/2016, 0500 hours TECHNIQUE: AP view of the abdomen. Number of im ages: 3 FINDINGS: Transesophageal suction tube: None. Transesophageal feeding tube: None. Other tubes and lines: None. Bowel: Mild to moderate larg e and small bowel dilatation is seen throughout the abdomen and pelvis. Fecal [place]: Minimal. Bones: No acute abnormalitie s seen. Spinal fixation hardware seen in the lower lumbar spine and proximal sacrum. Soft tissues. Unremarkable. IMPRESSION: 1. No significant change in the diffuse large and small bowel dilatation suggesting ileus or distal small bowel obstruction. Continued serial follow-up is recommended to confirm interval resolution. 2. Tube(s) and/or catheter(s) as above. Chest 1view DX EXAM: XR CHEST 1 VIEW 02/27/2016 [facility] DATE: 02/27/2016 8:33 AM NUTRIENT MANAGEMENT SPECIALIST Cent er INDICATION: Altered level of consciousness COMPARISON: 02/27/2016 at 4:47 AM TECHNIQUE: AP chest IMPRESSION: 1. Interval increase in the consolidative changes seen in the left lower lung zone which may represent mixture of atelectasis and pneumonia. Small left pleural effusion. 2. Other findings are withou t significant interval changes compared to previous study. Abdomen AP DX EXAM: XR ABDOMEN 1 VIEW 02/27/2016 [facility] DATE: 02/27/2016 4:15 AM [facility] MANAGEMENT SPECIALIST Cent er INDICATION: Abdominal distension ADDITIONAL INFORMATION: None. COMPARISON: KUB 02/26/2016, 1336 hours. TECHNIQUE: AP view of the abdomen. Number of im ages: 2 FINDINGS: Transesophageal suction tube : The tip is within the mid body of the stomach with the side-port at the GE junction. Transesophageal feeding tube: None. Other tubes and lines: None. Bowel: The visible colon is moderately dilated measuring up to 10.8 cm and is not significantly changed since the prior study. There is mild dilatation of loops of small bowel. Fecal [place]: Mild. Bones: No acute abnormalitie s seen. Spinal fixation hardware is seen within the lower lumbar spine. Surgical clips are seen within the left true pelvis. Soft tissues. There is left retrocardiac opacification that obscures left hemidiaphragm and heart border. IMPRESSION: 1. Moderately dilated: Mild ly dilated small bowel suggesting ileus or distal large bowel obstruction. Serial KUBs are recommended to confirm interval resolution. 2. Tube(s) and/or catheter(s) as above. Chest 1view DX EXAM: XR CHEST 1 VIEW 02/27/2016 [facility] DATE: 02/27/2016 4:14 AM NUTRIENT MANAGEMENT SPECIALIST Cent er INDICATION: Dyspnea COMPARISON: None. TECHNIQUE: AP chest FINDINGS: Lines, tubes and hardware: N G tube is seen with sidehole below the GE junction. Lungs and pleura: Diminished lung volumes bilaterally with bibasilar atelectatic changes. Scattered atelectatic changes in both lungs. Heart and mediastinum: Cardi omediastinal silhouette is enlarged. Prominent and tortuous thoracic aorta. Bones: No acute bony abnormality is identified. IMPRESSION: 1. Cardiomegaly. Tortuous prominent thoracic aor ta. 2. Bibasilar atelectatic changes. Diminished emil g volumes bilaterally. Abdomen AP DX EXAM: XR ABDOMEN 1 VIEW 02/26/2016 [facility] DATE: 02/26/2016 1:01 PM [facility]IENT MANAGEMENT SPECIALIST Cent er INDICATION: Abdominal distension ADDITIONAL INFORMATION: None. COMPARISON: None. TECHNIQUE: AP view of the abdomen. Number of im ages: 2 FINDINGS: Transesophageal suction tube: None. Transesophageal feeding tube: None. Other tubes and lines: None. Bowel: There is moderate dilatation of the small bowel and colon. Fecal [place]: Mild. Bones: No acute abnormalities seen. Lowe r lumbar spine fixation hardware seen. Soft tissues. Unremarkable. IMPRESSION: 1. Moderate large and small bowel dilatation that is not significantly changed consistent with ileus versus distal small bowel obstruction. Continued serial follow-up is recommended. 2. Tube(s) and/or catheter(s) as above. Brain wo contrast MRI MRI OF THE BRAIN 02/24/2016 [facility] DATE: 02/24/2016 at 1:41 AM. [facility] er COMPARISON: CT brain 02/23/2016 at 4:13 PM. HISTORY: Hemiparesis. TECHNIQUE: Multiplanar MR im aging was performed utilizing T1, diffusion, and T2 weighting. FINDINGS: There is no restri cted diffusion to indicate acute infarction. The anderson-white interfaces are well defined. There are no foci of signal abnormality within t he brain substance. There are no mass lesions or extra-axial collect ions. Normal vascular flow voids are noted. IMPRESSION: 1. No acute intracranial abn ormality, normal MRI of the brain. There is no acute hemorrhage or acute infarct. Spine lumbar 2 or 3 views EXAM: XR LUMBAR SPINE 2 VIEWS 02/23/20 16 [facility] DATE: 02/23/2016 12:21 PM NUTRIENT MANAGEMENT SPECIALIST C enter INDICATION: Pain with radiculopathy COMPARISON: MRI lumbar spine 11/10/2015 TECHNIQUE: Lumbar spine -- 2 views FINDINGS: Posterior surgical spinal fu charles from L3 to S1 present with bilateral pedicle screws and stabilization rods. New pedicle screws have been placed at L3. Interval placement of screws into the anterior aspects of S1 and L5 vertebral bodies noted. No perihardware lucency or hardware failure iden tified. Grade 1 degenerative retrolisthesis present at L 2-L3. Vertebral body heights are normal. No lumbar spine fracture is identified. Moderate degenerative disc disease present in th e lower thoracic spine. Moderate degenerative disc disease present at T1 2-L1, L1-L2. Severe degenerative disease present at L2-L3. Laminectomy present at L3-S1. Contrast present in the urinary bladder. Minor subsegmental atelectasis present at the urvashi ng bases. IMPRESSION: Satisfactory appearance of posterior spinal fusi on at L3-S1 Multilevel degenerative disc disease as describe d. Grade 1 degenerative retrolisthesis at L2-L3. 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 Status post removal of hardware and decompres sive laminectomy. COMPARISON: None TECHNIQUE: Routine axial images of the brain wer e obtained. FINDINGS: Non-contrast images of the h ead demonstrate no edema, hemorrhage, mass lesion or other acute intracranial abnormality. There is no chronic abnormality. ASPECTS: 10 Laterality: none Caudate: normal Internal capsule: normal Lenticular: normal Insula: normal M1: normal M2: normal M3: normal M4: normal M5: normal M6: normal The sinuses and skull base are unremarkable. IMPRESSION: No sign of acute cortical infarct o r parenchymal hemorrhage. Brain/Neck Stroke EXAM: CT ANGIOGRAM OF THE BRAIN 02/23/2016 [facility] perfusion CTA EXAM: CT ANGIOGRAM OF THE NECK C enter EXAM: CT PERFUSION OF THE BRAIN DATE: 02/23/2016 INDICATION: Hemiparesis COMPARISON: None TECHNIQUE: - Dynamic CT perfusion image s on a limited area of the brain parenchyma are performed during bolus injection of iodinated contrast material. Color maps of relative cerebral blood flow, relative cerebral blood volume, time to peak, and mean transit time are created on an independent workstation and are submitted along with the source image data. -Rapid acquisition spiral CT images of the brain and neck were obtained between the aortic arch and the cranial vertex during intravenous infusion of iodinated contrast for the purposes of CT angiograph y. 3-D CT angiographic image s are created using maximum intensity projection technique at the acquisition workstation. The source images are also presented for interpretation. IV contrast: 100 mL Visipaque 320 Total DLP: 3541 mGycm. FINDINGS: CTA: Vascular structures of the neck are patent with no contour irregularity, luminal narrowing or atheromatous disease. Tortuosity of both cervical internal carotid arteries. Both vertebral arteries are patent from their origin with usual course and caliber. Intracranial vessels structu res are patent with no proximal branch occlusion or flow-limiting stenosis. No contour irregularity. 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 The right P-comm is patent. Dural venous sinuses are patent. CT PERFUSION: No perfusion defects. IMPRESSION: Negative CT perfusion exam. No intracranial proximal branch occlusion flow-l imiting stenosis. 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 (All qualitative and quantit ative assessments of carotid bifurcation and proximal internal carotid artery stenosis are made referencing the distal internal carotid artery {NASCET criteria}.) Chest Pulmonary Embolism EXAM: CTA CHEST WITH CONTRAST 02/23/20 16 [facility] CTA DATE: 02/23/2016 8:30 AM NUTRIENT MANAGEMENT SPECIALIST Geoff ter INDICATION: Tachycardia COMPARISON: No available prior chest CTs for com parison. TECHNIQUE: Volumetric CT acq uisition of the chest, during pulmonary arterial phase, after intravenous contrast. Axial, sagittal, coronal, and oblique MIP reconstructions are created at the acquisition workstation. IV Contrast: 90 mm of Visipaque 320. DLP: 678 mGy-cm FINDINGS: Lines and tubes: None. Lower neck: The visualized p ortion of the thyroid gland and lower neck are unremarkable. Heart and Mediastinum: Cardi othoracic ratio measures 12.5/26. Measurements and appearance of the thoracic aorta are normal. At the same level where the ascending aorta measures 3.4 cm the pulmonary trunk measures 2.7 cm. There is no pulmonary embolus. Pleura: No pleural effusion. No pneumothorax. Lymph Nodes: There is no hil ar, mediastinal, axillary or internal mammary lymphadenopathy. Lungs: Bilateral dependent a telectatic changes. Few scattered platelike atelectasis seen in both lungs. Few scattered calcified pulmonary nodules. Minimal interlobular septal thickening and patchy groundglass opacities seen in both lung bases. Trachea: Unremarkable. Upper abdomen: Low-density l esion is seen in the left hepatic lobe measuring approximately 3.5 x 3.0 cm, likely hepatic cyst. Bones and soft tissues: Dege nerative changes of the thoracic spine. Multilevel degenerative disc disease. Postsurgical changes seen along the left scapula. IMPRESSION: 1. No acute pulmonary embolism. 2. Findings suggestive of minimal pulmonary marybeth a in both lung bases. 3. Atelectatic changes scattered in both lungs. 4. Hypodense lesion in the left hepatic lobe lik anna cyst. RECOMMENDATIONS: None. Spine lumbar wo contrast EXAM: CT lumbar spine 01/10/[address] HISTORY: Low back pain, iliotibial band syndrome on the right COMPARISON: MRI lumbar spine 11/10/2015 TECHNIQUE: Axial images of t he lumbar spine with sagittal and coronal reformats. No contrast. FINDINGS: Five lumbar type vertebral b odies. Mild-moderate shape scoliosis of the lumbar spine with asymmetric degenerative disc space narrowing and marginal osteophytes T12 L1 - L3-4. Posterior fusion rods and p edicle screws L4-S1 and lami nectomies L4-L5 and L5-S1 again noted. Generalized osteopenia. No compression fracture. Possible stones in the left kidney. T12-L1: Generalized disc bul ge without significant canal stenosis. Moderate facet arthrosis on the right and mild facet arthrosis on the left. Mild neuroforaminal stenosis on the right. L1-L2: No significant disc b ulge or central canal stenosis. Mild facet arthrosis bilaterally. Mild-moderate neuroforaminal stenoses bilaterally. L2-L3: Posterior marginal os teophyte L2 with moderate canal stenosis. Mild facet arthrosis bilaterally. Marked neuroforaminal stenosis on the left and moderate-marked foraminal stenosis on the right. L3-L4: Disc bulge, mild liga mentum flavum thickening and mild facet arthrosis bilaterally with marked central canal stenosis. Marked neuroforaminal stenosis on the left and moderate foraminal stenosis on the right. L4-L5: Small central disc bu lge without significant canal stenosis. Moderate neuroforaminal stenoses bilaterally. L5-S1: No significant disc b ulge or central canal stenosis. Marked neuroforaminal stenosis on the right with posterior marginal osteophyte impinging the right L5 foraminal nerve root. Moderate-marked ne uroforaminal stenosis on the left with the facet abutting or impinging the left L5 foraminal nerve root. IMPRESSION: 1. Stable postoperative changes L4-S1. 2. Impingement of the L5 nerve roots as describe d. 3. Disc bulge and posterior element hypertrophy L3-L4 with marked canal stenosis. Osteophyte at L2-L3 with moderate canal stenosis. 4. Diffuse neuroforaminal stenoses. 5. Possible stones left kidn ey, incompletely evaluated. CT renal stone study can further evaluate. SL: [id number] Spine cervical wo Addendum: Please note that d edicated bilateral sagittal oblique images of the cervical spine through the bilateral neural foramen were performed. 11/10/2015 G[facility]O [place] contrast MRI Study: Spine cervical wo contrast MRI Clinical Indication: Z98.1 Arthrodesis status Comparison: None TECHNIQUE: Multiplanar, mult isequence magnetic resonance imaging of the cervical spine was performed without the administration of intravenous gadolinium contrast. FINDINGS: There is normal alignment of the cervical spine. No focal marrow signal abnormality is present. The prevertebral soft tissues, atlanto-dental interspace, and craniocervical junction are within normal li mits. The visualized brainst em region is unremarkable. The cervical spinal cord is normal in size and signal. The discs are desiccated thr oughout the cervical spine and severe multilevel disc height loss from C4-C5 through C6-C7 is seen with Modic type II degenerative endplate change at C4-C5. There is grade 1 anterolisthesis of C3 over C 4 by 2 mm. Grade 1 retrolisthesis of C4 over C5 by 2 mm is also noted. DISC SPACES: C2-C3: Negative for signific ant disc bulge or protrusion. Mild to moderate right facet arthrosis is seen. There is no spinal canal stenosis or neural foraminal narrowing. C3-C4: 3 mm left foraminal d isc osteophyte protrusion is seen. Moderate-severe left facet arthrosis is seen. Mild right facet arthrosis is noted. There is severe left neural foraminal narrowing without spinal canal stenosis. C4-C5: Largest circumferenti al disc osteophyte complex with superimposed uncovertebral arthrosis is seen. Mild facet arthrosis is noted. There is mild spinal canal stenosis with the thecal sac measuring 9.5 mm AP dimension. Severe bilateral neural fo raminal narrowing is present. C5-C6: Large circumferential disc osteophyte complex with superimposed uncovertebral arthrosis is seen. Moderate-severe right facet arthrosis is noted. Mild left facet arthrosis is also noted. There is severe bilateral neural foraminal narrowing with out spinal canal stenosis. C6-C7: Large circumferential disc osteophyte complex with superimposed uncovertebral arthrosis is seen. Mild facet arthrosis is noted. There is severe bilateral neural foraminal narrowing without spinal canal stenosis. C7-T1: Negative for signific ant disc bulge or protrusion. Moderate-severe facet arthrosis is present. There is no spinal canal stenosis or neural foraminal narrowing. IMPRESSION: 1. Advanced degenerative sierra nges of the cervical spine with mild spinal canal stenosis and severe bilateral neural foraminal narrowing at C4-C5. 2. Severe bilateral neural foraminal narrowing a t C5-C6 and C6-C7. 3. C3-C4 severe left neural foraminal narrowing. SL: [id number] Spine lumbar w/wo MRI LUMBAR SPINE WITHOUT AND WITH CONTRAST KEVIN BURCIAGA [place] contrast MRI HISTORY: M54.5 Low back pa in; low back pain, lumbar radicular pain, status post spinal arthrodesis, patient reports low back pain radiating to the right hip, unsteady gait COMPARISON: None available. TECHNIQUE: Multiplanar T1, T 2, fluid-sensitive weighted MRI of the lumbar spine without and with contrast is performed on the 1.5 Elvira magnet. FINDINGS: No fracture is seen. Vertebr al body heights are maintained. No bone marrow edema or aggressive osseous lesion. No discitis/osteomyelitis. Lower lumbar multilevel post erior decompression is identified with posterior fusion spanning L4-S1 utilizing spinal rods and pedicle screws. Aside from enhancement relat ed to mild inflammatory-type degenerative endplate change in the inferior endplate of the L3 vertebral body, no abnormal enhancement is seen. Evaluation for abnormal enha ncement within the spinal canal throughout the fused segment is prevented due to metallic susceptibility artifact related to fusion hardware. DISC SPACES: T12/L1: Mild diffuse disc bu lge asymmetric to the right. No canal stenosis. No neural foraminal narrowing. L1/L2: Mild diffuse disc bul ge. No canal stenosis. No neural foraminal narrowing. L2/L3: Severe disc degenerat ion with grade 1 retrolisthesis of L2 on L3 measuring 3 mm and moderate diffuse endplate spurring. Mild canal stenosis. Mild bilateral neural foraminal narrowing. L3/L4: Moderate diffuse disc bulge with moderate degenerative facet and ligamentum flavum hypertrophy. Moderate canal stenosis. Severe right neural foraminal narrowing. Moderate left neural foraminal narrowing. L4/L5: Changes of posterior decompression. Moderate hypertrophic facet arthrosis. No canal stenosis. Mild right neural foraminal narrowing. No left neural foraminal narrowing. L5/S1: Changes of posterior decompression. Mild/moderate diffuse disc protrusion. Moderate hypertrophic facet arthrosis. No canal stenosis. Moderate to severe right neural foraminal narrowing and moderate left neural foraminal narrowing. Left renal parapelvic cystic change is noted. Visualized portion of the aorta is unremarkable. IMPRESSION: 1. Multilevel lower lumbar p osterior decompression with posterior fusion spanning L4-S1 utilizing spinal rods and pedicle screws. 2. Evaluation for enhancemen t within the spinal canal over the fused segment is not possible due to metallic susceptibility artifact. 3. Moderate canal stenosis at L3/L4. 4. Severe right neural marty inal narrowing L3/L4 and moderate to severe right neural foraminal narrowing at L5/S1. 4. Moderate left neural foraminal narrowing at L 3/L4 and L5/S1. SL: MICHELLE Consultation Notes No Data Provided for This Section Discharge Summaries No Data Provided for This Section History and Physicals No Data Provided for This Section Vital Signs Vital Sign Value Date Comments Source Height 172.72 cm 04/08/2019 [facility] Weight 91.818 04/08/2019 [facility] BMI Calculated 30.78 04/08/2019 [facility] Temperature Oral (F) 97.8 F 03/09/2019 [facility] Heart Rate 99 03/09/2019 [facility] Respitory Rate 18 03/09/2019 [facility] Systolic (mm Hg) 132 03/09/2019 [place] Diastolic (mm Hg) 79 03/09/[address] [facility] [address] Temperature Oral (F) 97.8 F 03/09/2019 [facility] Heart Rate 84 03/09/2019 [facility] Respitory Rate 18 03/09/2019 [facility] Systolic (mm Hg) 126 03/09/2019 [place] Diastolic (mm Hg) 79 03/09/[address] [facility] Temperature Oral (F) 97.8 F 03/09/2019 [facility] Heart Rate 74 03/09/2019 [facility] Respitory Rate 18 03/09/2019 [facility] Systolic (mm Hg) 118 03/09/2019 [place] Diastolic (mm Hg) 65 03/09/[address] [facility] [address] Height 172.72 cm 03/07/2019 [facility] Weight 97.3 03/07/2019 [facility] BMI Calculated 32.62 03/07/2019 [facility] Heart Rate 80 05/18/2018 [facility] Respitory Rate 20 05/18/2018 [facility] Systolic (mm Hg) 117 05/18/2018 [facility] Diastolic (mm Hg) 77 05/18/2018 [facility] [place] Temperature Oral (F) 98 F 05/18/2018 [facility] Temperature Oral (F) 98.2 F 05/18/2018 [facility] Heart Rate 70 05/18/2018 [facility] Respitory Rate 18 05/18/2018 [facility] Systolic (mm Hg) 98 05/18/2018 [facility] Diastolic (mm Hg) 61 05/18/2018 [facility] Temperature Oral (F) 97.5 F 05/18/2018 [facility] Systolic (mm Hg) 114 05/18/2018 [facility] Diastolic (mm Hg) 67 05/18/2018 [facility] [place] Respitory Rate 18 05/18/2018 [facility] Heart Rate 56 05/18[facility]2018 [facility] Weight 95.455 05[facility]17[facility]2018 [facility] Height 175.26 cm 05/17/2018 [facility] BMI Calculated 31.08 05/17/2018 [facility] Height 175.26 cm 05/16/2018 [facility] Weight 95.455 05/16/2018 [facility] BMI Calculated 31.08 05/16/2018 [facility] Systolic (mm Hg) 120 05/06/2018 [place] Diastolic (mm Hg) 81 05/06/[address] Respitory Rate 16 05/06/2018 [facility] Systolic (mm Hg) 123 05/06/2018 [place] Diastolic (mm Hg) 81 05/06/[address] Respitory Rate 14 05/06/2018 [facility] Systolic (mm Hg) 110 05/06/2018 [place] Diastolic (mm Hg) 73 05/06/[address] Respitory Rate 14 05/06/2018 [facility] Weight 95.455 05/06/2018 [facility] BMI Calculated 32 05/06/2018 [facility] Height 172.72 cm 05/06/2018 [facility] Systolic (mm Hg) 150 05/19/2017 [facility] Diastolic (mm Hg) 93 05/19/2017 [facility] Respitory Rate 18 05/19/2017 [facility] Temperature Oral (F) 99.0 F 05/19/2017 [facility] Heart Rate 85 05/19/2017 [facility] Heart Rate 81 05/18/2017 [facility] Temperature Oral (F) 98.3 F 05/18/2017 [facility] Respitory Rate 18 05/18/2017 [facility] Systolic (mm Hg) 113 05/18/2017 [facility] Diastolic (mm Hg) 74 05/18/2017 [facility] Heart Rate 86 05/18/2017 [facility] Resp[facility] Rate 17 05/18/2017 [facility] Systolic (mm Hg) 145 05/18/2017 [facility] Diastolic (mm Hg) 89 05/18/2017 [facility] [place] [facility] Temperature Oral (F) 98.3 F 05/18/2017 [facility] Height 175.26 cm 05/15/2017 [facility] Weight 94.545 05[facility]15/2017 [facility] BMI Calculated 30.78 05/15/2017 [facility] Height 175.26 cm 05/15/2017 [facility] Weight 95.455 05/15/2017 [facility] BMI Calculated 31.08 05/15/2017 [facility] Temperature Oral (F) 98.1 F 05/07/2017 [facility] Respitory Rate 16 05/07/2017 [facility] Heart Rate 98 05/07/2017 [facility] Systolic (mm Hg) 131 05/07/2017 [facility] Diastolic (mm Hg) 71 05/07/2017 [facility] [place] [facility] Systolic (mm Hg) 144 05/07/2017 [facility] Diastolic (mm Hg) 81 05/07/2017 [facility] [place] [facility] Respitory Rate 18 05/07/2017 [facility] Temperature Oral (F) 98.4 F 05/07/2017 [facility] Heart Rate 85 05/07/2017 [facility] Heart Rate 85 05/07/2017 [facility] Respitory Rate 18 05/07/2017 [facility] Systolic (mm Hg) 125 05/07/2017 [facility] Diastolic (mm Hg) 82 05/07/2017 [facility] [place] [facility] Temperature Oral (F) 98.5 F 05/07/2017 [facility] Weight 103.4 05/02/2017 [facility] BMI Calculated 33.66 05/02/2017 [facility] Height 175.26 cm 05/02/2017 [facility] Weight 95.455 04/30/2017 [facility] BMI Calculated 30.63 04/30/2017 [facility] Height 176.53 cm 04/30/2017 [facility] Systolic (mm Hg) 147 04/13/2017 [facility] Diastolic (mm Hg) 89 04/13/2017 [facility] Resp[facility] Rate 16 04/13/2017 [facility] Respitory Rate 20 04/13/2017 [facility] Systolic (mm Hg) 147 04/13/2017 [facility] Diastolic (mm Hg) 88 04/13/2017 [facility] Systolic (mm Hg) 159 04/13/2017 [facility] Diastolic (mm Hg) 93 04/13/2017 [facility] Respitory Rate 18 04/13/2017 [facility] Heart Rate 96 04/13/2017 [facility] Weight 93.182 04/13/2017 [facility] Height 175.26 cm 04/13/2017 [facility] BMI Calculated 30.34 04/13/2017 [facility] Respitory Rate 16 04/13/2017 [facility] Systolic (mm Hg) 149 04/13/2017 [facility] Diastolic (mm Hg) 91 04/13/2017 [facility] Heart Rate 88 04/13/2017 [facility] Systolic (mm Hg) 148 04/13/2017 [facility] Diastolic (mm Hg) 68 04/13/2017 [facility] Respitory Rate 16 04[facility]13/2017 [facility] Heart Rate 88 04/13/2017 [facility] Heart Rate 89 04/13/2017 [facility] Respitory Rate 17 04/13/2017 [facility] Systolic (mm Hg) 141 04/13/2017 [facility] Diastolic (mm Hg) 96 04/13/2017 [facility] Weight 100 04[facility]13/2017 [facility] Temperature Oral (F) 98.9 F 04/13/2017 [facility] [place] Weight 100 04/13/2017 [facility] Respitory Rate 18 04/13/2017 [facility] Heart Rate 87 04/13/2017 [facility] Systolic (mm Hg) 140 04/13/2017 [facility] Diastolic (mm Hg) 94 04/13/2017 [facility] Systolic (mm Hg) 141 03/19/2017 [facility] Diastolic (mm Hg) 94 03/19/2017 [place] Respitory Rate 18 03/19/2017 [place] Heart Rate 85 03/19/2017 [place] Systolic (mm Hg) 127 03/19/2017 [place] Diastolic (mm Hg) 80 03/19/2017 [place] Respitory Rate 21 03/19/2017 [place] Heart Rate 90 03/19/2017 [place] Respitory Rate 20 03/19/2017 [place] Weight 95.5 03/18/2017 [place] Systolic (mm Hg) 150 03/18/2017 [place] Diastolic (mm Hg) 94 03/18/2017 [place] Temperature Oral (F) 98.9 F 03/18/2017 [place] Heart Rate 106 03/18/2017 [place] Weight 94.545 02/23/2017 [facility] BMI Calculated 31.69 02/23/2017 [facility] Height 172.72 cm 02/23/2017 [facility] Respitory Rate 18 01/29/2017 [place] Systolic (mm Hg) 140 01/29/2017 [place] Diastolic (mm Hg) 75 01/29/2017 [place] Heart Rate 85 01/29/2017 [place] Temperature Oral (F) 99 F 01/29/2017 [place] Heart Rate 88 01/29/2017 [place] Temperature Oral (F) 99 F 01/29/2017 [place] Respitory Rate 18 01/29/2017 [place] Systolic (mm Hg) 147 01/29/2017 [place] Diastolic (mm Hg) 74 01/29/2017 [place] Respitory Rate 18 01/29/2017 [place] Systolic (mm Hg) 146 01/29/2017 [place] Diastolic (mm Hg) 72 01/29/2017 [place] Heart Rate 100 01/29/2017 [place] Temperature Oral (F) 99.1 F 01/29/2017 [place] Weight 90.909 01/29/2017 [place] Height 177.8 cm 01/29/2017 [place] BMI Calculated 28.76 01/29/2017 [place] Systolic (mm Hg) 143 01/27/2017 [facility] Diastolic (mm Hg) 83 01/27/2017 [facility] [place] Respitory Rate 20 01/27/2017 [facility] Heart Rate 108 01/27/2017 [facility] Temperature Oral (F) 98.4 F 01/27/2017 [facility] Systolic (mm Hg) 120 01/27/2017 [facility] Diastolic (mm Hg) 71 01/27/2017 [facility] Respitory Rate 18 01/27/2017 [facility] Heart Rate 77 01/27/2017 [facility] Temperature Oral (F) 98.0 F 01/27/2017 [facility] Temperature Oral (F) 98.4 F 01/27/2017 [facility] Heart Rate 82 01[facility]27/2017 [facility] Resp[facility] Rate 18 01/27/2017 [facility] Systolic (mm Hg) 108 01/27/2017 [facility] Diastolic (mm Hg) 62 01/27/2017 [facility] Weight 96.619 01/22/2017 [facility] BMI Calculated 32.39 01/22/2017 [facility] Height 172.72 cm 01/22/2017 [facility] Weight 96.619 01/22/2017 [facility] BMI Calculated 32.39 01/22/2017 [facility] Height 172.72 cm 01/22/2017 [facility] Diastolic (mm Hg) 80 03/24/2016 [facility] Respitory Rate 16 03/24/2016 [facility] Systolic (mm Hg) 118 03/24/2016 [facility] Heart Rate 98 03/24/2016 [facility] Temperature Oral (F) 98.7 F 03/24/2016 [facility] Heart Rate 91 03/24/2016 [facility] Temperature Oral (F) 99.3 F 03/24/2016 [facility] Systolic (mm Hg) 125 03/24/2016 [facility] Diastolic (mm Hg) 71 03/24/2016 [facility] Respitory Rate 18 03/24/2016 [facility] Respitory Rate 18 03/24/2016 [facility] Diastolic (mm Hg) 75 03/23/2016 [facility] Heart Rate 95 03/23/2016 [facility] Systolic (mm Hg) 135 03/23/2016 [facility] Height 177.8 cm 03/22/2016 [facility] Height 177.8 cm 03/22/2016 [facility] Temperature Oral (F) 98.6 F 03/21/2016 [facility] Height 177.8 cm 03/18/2016 [facility] BMI Calculated 27.56 03/18/2016 [facility] Weight 87.136 03/18/2016 [facility] Temperature Oral (F) 98.0 F 03/17/2016 [facility] Respitory Rate 18 03/17/2016 [facility] Systolic (mm Hg) 106 03/17/2016 [facility] Diastolic (mm Hg) 70 03/17/2016 [facility] Heart Rate 82 03/17/2016 [facility] Resp[facility] Rate 20 03/17/2016 [facility] Temperature Oral (F) 99.1 F 03[facility]17/2016 [facility] Systolic (mm Hg) 127 03/17/2016 [facility] Diastolic (mm Hg) 84 03/17/2016 [facility] Heart Rate 97 03/17/2016 [facility] Heart Rate 53 03/17/2016 [facility] Temperature Oral (F) 98.1 F 03/17/2016 [facility] Respitory Rate 20 03/17/2016 [facility] Systolic (mm Hg) 129 03/17/2016 [facility] Diastolic (mm Hg) 52 03/17/2016 [facility] Weight 88.636 03/14/2016 [facility] Height 177.8 cm 03/14/2016 [facility] Weight 88.636 02/26/2016 [facility] Height 177.8 cm 02/22/2016 [facility] Weight 88.636 02/22/2016 [facility] BMI Calculated 28.04 02/22/2016 [facility] Weight 90.909 02/15/2016 [facility] BMI Calculated 28.76 02/15/2016 [facility] Height 177.8 cm 02/15/2016 [facility] Height 177.8 cm 02/08/2016 [facility] BMI Calculated 29.04 02/08/2016 [facility] Encounters Location Location Encounter Encounter Reason Attending ADM [facility] Source Details Type Number For Provider Date Date Visit [facility] Outpt Diag [id number] Agnieszka 11/09 11/10 [id number] Riky-Red 01/09 01/10 [facility] Outpatient Services 1 [facility] Outpatient [id number] Henri Maxwelle 02/14 02/15 [place] 1 [facility] Inpatient [id number] Gabriela Lan 02/20 03/17 [place] [facility] Inpatient [id number] Prathap 03/17 03/24 M H [facility] 2 [facility] Inpatient [id number] Raza 01/26 01/27 [facility] 4 Jeronimo [facility] Emergency [id number] Ambica 01/29 01/29 [facility] Outpatient [id number] Oriana Marrero 02/23 02/24 [place] [facility] Emergency [id number] Jaimie 03/18 03/19 [facility] Emergency [id number] Abundio 04/13 04/13 [facility] 8 [facility] Emergency [id number] Ebelechukwu 04/13 04/13 MH Indra 9 Bobby [facility] Day Surgery [id number] Raza 04/13 04/13 [facility] 9 Jeronimo [facility] Inpatient [id number] Raza 05/01 05/07 [facility] 0 Jeronimo [facility] Inpatient [id number] Raza 05/15 05/19 [facility] 1 [facility] [id number] Oriana Marrero 06/01 06/02 [facility] [id number] Riky-Red 04/16 04/17 [facility] Outpatient Services 3 [facility] [id number] Raza 04/18 04/19 2 .16.840 Outpatient Services 4 Jeronimo .1. 18795 Imaging [id number]. [place] [address] [facility] Outpt Diag [id number] Raza 04/22 04/23 M H OPID Outpatient Services 5 Her [facility] Outpatient [id number] [facility] 04/24 04/25 Indra 3 [facility] Outpatient [id number] [facility] 05/02 05/03 Indra 5 [facility] Bedded [id number] [facility] 05/06 05/06 M [facility] Outpatient 4 [facility] Inpatient [id number] Raza 05/17 05/18 Byers 6 Jeronimo [facility] Inpatient [id number] Jeremy Chavez 03/07 03/09 [place] [facility] Outpatient [id number] Sarmad Ballesteros 04/08 04/09 [place] [facility] Outpatient [id number] Agnieszka 11/02 11/03 Indra 8 [facility] Procedures Procedure Code Date Perfomer Comments Source Arthrocentesis, GUALBERTO aspiration and/or 9 [place] injection, major joint or bursa (eg, shoulder, hip, knee, subacromial bursa); without ultrasound guidance Operation<sup>1</ [id number] lower back surgery [facility] sup> 6 Medical Center,[facility],2.16 [id number] .[id number], GUALBERTO Burrell,[facility], GUALBERTO Cruz,[facility] Colon [id number] stated [facility] operation<sup>2</ resection for Medi ofelia sup> diverticulitis Center, Nancy,2.16 [id number] .[id number], GUALBERTO Burrell,[facility], GUALBERTO Cruz,[facility] Excision [id number] [facility],[id number] .[id number],MH [facility], GUALBERTO [place], [place], [facility]ID [place],[facility] Operation [id number] [facility],2.16 [id number] .[id number], [facility], GUALBERTO [place]rell, [place], [facility] [place],[facility] Replacement [id number] [facility],2.16 [id number] .[id number], [facility], GUALBERTO Burrell, [place], [facility] [place],[facility] Resection of [id number] [facility],[id number] .[id number], [facility], GUALBERTO Burrell,[facility] Nancy,[facility] Shoulder repair [id number] [facility],[id number] .[id number], [facility], GUALBERTO Burrell,[facility], OPI [place],[facility] Colon [id number] stated [facility] operation<sup>1</ resection for Medi ofelia sup> diverticulitis Center, [facility] Assessment and Plan Assessment and Plan Date Source Extracted from:Title: Discharge Summary * 03/09/2019 Romina Author: Jeremy Chavez MD Date: 03/09/19 Discharge Information Disposition to home Condition stable Medications: See med reconciliation form Diet: Heart healthy Discharge Plan In the event of any worsening symptoms p atient advised to come back to the emergency room for further evaluation Discharge summary to greater than 35 minutes Extracted from:Title: Cardiology Progress Note Author: Eugene Negrete MD Date: 03/09/19 Impression and Plan SOB COPD exacerbation Diastolic CHF Afib on Eliquis Hx of TIA HTN HLD - Pt's volume status does not appear to be significant - Cont with low dose diuretics for now, will switch to PO to mar - Now on PO lasix - No evidence of ACS - CXR reviewed - Echo with low normal LV EF, impaired diastology - Cont with low dose eliquis for AC for afib Thank you. F/u with cardiology in 2 weeks. Extracted from:Title: Clinical Document Author: Sarmad Ballesteros MD Date: 03/08/19 Pulmonary Critical Care Consultation Attending: Jeremy Chavez MD Service: Internal Medicine Code status: None Specified=FULL CODE Reason for Admission: SOB Working DRG: Isolation: No Isolation/Standard Precautions Consulting Physicians: Eugene Negrete MD Office: Service: Sarmad Apodaca MD Office: Serv ice: Medicine Allergies: No Known Medication Allergies History of Present Illness: 78-year-old white male, 2 pack a day smo ker for 24 to 25 years quit in the 70s has been having shortness of breath for the last 2 to 3 months that is been getting worse, it is been associated with wheez ing. He does have cough and he does hav e sputum production. He had been diagnosed with COPD/asthma. He has been prescribed nebulizer every 6 hours he only takes it once a day. He denies chest pain p alpitations orthopnea paroxysmal nocturnal dyspnea or swelli ng. Past Medical History: COPD, BPH, atrial fibrillation, sleep ap liliana, gastroesophageal reflux, dyslipidemia, hypothyroidism, CVA, diverticulosis with diverticulitis, lumbar disc disease Past Surgical History: Bilateral shoulder surgery, skin cyst ex cision, colon surgery for diverticulitis, lumbar disc surgery does not know the level Social History: He is not currently actively drinking or smoking. He did drink beer in the past none for over 10 years. Again he was a smoker 2 packs a day for 12 years or so. No drug use. He is . Family History: Father had asthma, hypertension diabetes and stroke. Mom al so had COPD. ROS: Notable for him being off his Eliquis fo r about 4days secondary to prostate biopsy. He does not use his CPAP he is unable to tolerate it. Medications (39) Active Scheduled Meds (12): 03/07/19 apixaban (Eliquis) 2.5 mg PO Q12H 03/07/19 cefTRIAXone + sterile water 10 mL (Rocephin + sterile water 10 mL) 1 gm IVP [id number] 120 ml/hr 03/08/19 levothyroxine 50 microgram PO Before Breakfast 03/07/19 methylPREDNISolone (Solu-MEDROL) 40 mg IVP Q12H 03/07/19 metoprolol 25 mg PO Bedtime 03/08/19 non-formulary (*RN* pls bring p t's own rasagiline to [facility] for label) MISC QSHIFT 03/08/19 pantoprazole (Protonix) 40 mg PO Daily 03/08/19 pregabalin (Lyrica) 100 mg PO BID 03/07/19 rOPINIRole (Requip) 0.5 mg PO Bedtime 03/08/19 rasagiline 1 mg PO QPM 03/07/19 simvastatin 40 mg PO Bedtime 03/08/19 tamsulosin (Flomax) 0.4 mg PO QPM Unscheduled Meds: None PRN Meds (26): 03/07/19 Al hydroxide/Mg hydroxide/simet hicone (Maalox Advanced Regular Strength SUSP) 30 mL PO QID-After Meals 03/07/19 Dextrose 50% in Water IV (Dextrose 50% Syring e (D50W)) 12.5 gm IVP PRN 03/07/19 Dextrose 50% in Water IV (Dextrose 50% Syringe (D50 W)) 25 gm IVP PRN 03/07/19 QUEtiapine (SEROquel) 25 mg PO Daily 03/07/19 acetaminophen-hydrocodone ([place] 5/325 oral tablet) 1 tab PO Q6H 03/07/19 acetaminophen 650 mg PO Q6H 03/07/19 albuterol-ipratropium (DuoNeb inhalation solution) 3 ml NEB PRN 03/07/19 benzocaine-menthol topical (Cep acol Sore Throat 15 mg-3.6 mg mucous membrane lozenge) 1 lozenge MUCOUS MEM Q4H 03/07/19 benzonatate (Tessalon Perles) 100 mg PO TID 03/07/19 bisacodyl 10 mg VA Daily 03/07/19 codeine-guaiFENesin (Robitussin-AC oral syrup) 10 m l PO Q4H 03/07/19 diphenhydrAMINE 25 mg PO Q6H 03/07/19 docusate 100 mg PO BID 03/07/19 glucagon 1 mg IM PRN 03/07/19 guaiFENesin (Mucinex) 600 mg PO Q12H 03/07/19 hydrALAZINE 10 mg IVP Q4H 03/07/19 lactulose (lactulose 10 g/15 mL oral syrup) 20 gm P O BID 03/07/19 lidocaine topical (lidocaine to pical patch (5% film)) 1 patch TOP Daily 03/07/19 melatonin 3 mg PO Bedtime 03/07/19 morphine Sulfate 2 mg IVP Q4H 03/07/19 nicotine 21 mg TOP Daily 03/07/19 ocular lubricant (Artificial Tears) 1 drp Each Affe cted Eye QID 03/07/19 ondansetron 4 mg IVP Q6H 03/07/19 phenol topical (Chloraseptic 1.4% spray) 1 spray TO P Q6H 03/07/19 polyethylene glycol 3350 17 gm PO Daily 03/07/19 simethicone 80 mg CHEW QID-After Meals One Time Meds: None Continuous Infusions (1): 03/07/19 Sodium Chloride 0.9% IV 1,000 mL (NS 1,000 mL) 1,00 0 mL 75 ml/hr Vitals Tmp(F) Pulse BP RR SpO2 FIO2 03/08 08:21 ---- --- ----- -- 97 --- 03/08 07:10 98.1 73 124/72 18 97 --- 03/08 04:00 98.9 93 131/76 20 95 --- 03/07 23:36 98.1 103 159/79 -- 93 --- 03/07 20:07 98.5 98 143/88 16 93 --- 24 Hr Tmax: 98.9F (37.17c) at 03/08 04:0 0 Vital Signs are the last 5 in the past 48 hours. 03/08/2019 08:21 Oxygen Therapy Mode Room air SpO2 percent 97 03/08/2019 04:00 O2 Sat Location Right hand/finger Physical Examination: Obese awake alert nondistressed although occasionally does abebe and puff when he moves around. Head is normocephalic atraumatic and his mucous members are moist. Neck Short thick supple trachea midlin e. No stridor. Chest has symmetric exp ansion with expiratory wheezes. Heart has a regular rate and irregular rhythm not tachycardic. Abdomen is obese soft nontender. Extremities have no cyanosis clubbing or edema. When I check his oxygen on room air is 96 to 97%. Labs (Last four charted values) WBC 10.1 (MAR 08) H 10.5 (DEC 3) Hgb L 12.8 (MAR 08) L 13.5 (MAR 07) Hct L 38.7 (MAR 08) L 41.4 (MAR 07) Plt 216 (MAR 08) 228 (MAR 07) Na 136 (MAR 08) 137 (MAR 07) K 4.5 (MAR 08) 4.0 (MAR 07) CO2 26 (MAR 08) 25 (MAR 07) Cl 106 (MAR 08) 105 (MAR 07) Cr 1.12 (MAR 08) 1.27 (MAR 07) BUN 16 (MAR 08) 19 (MAR 07) Glucose Random H 248 (MAR 08) H 138 (D EC 13) Ca 8.8 (MAR 08) 8.8 (MAR 07) Troponin <0.02 (MAR 08 ) <0.02 (MAR 07) <0.02 (MAR 07) <0.02 (MAR 07) Other reviewed data: Chest x-ray is unremarkable no infiltrates. CT angios been reviewed there is no pulm onary filling defect suggestive of pulmonary emboli, no infiltrates effusions or nodules. Labs are reviewed his creatinine when he came in was 1.27 is down to 1.12. He has a normal serum bicarbonate 25 and 26 over the last 2 values. Negative troponins as well as a normal B natruretic pepti de. TSH is normal. Hemoglobin A1c is e levated at 7.5. White count is 10 hemoglobin adequate her 12.8 and 38 with 200,000 platelets. There is no differential on either of the CBCs done, eosinophil co unt would have been interesting to look at prior to getting steroids. 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 azithromyci n Continue PPI Continue Eliquis for his A. fib as well as for concomitant D VT prophylaxis Add sliding scale insulin and Accu-Cheks Extracted from:Title: General Admission H&P * Author: Jeremy Chavez MD Date: 03/07/19 Impression and Plan 1. COPD exacerbation 2. History of atrial fibrillation 3. BPH 4. Hyperlipidemia Plan: BNP negative, chest x-ray: Negative, roshni st CTA ordered, neb treatments, IV antibiotics, IV steroids Rate control medications, oral Eliquis Resume tamsulosin Lipid panel, resume Lipitor Nutrition: Heart healthy PT/OT eval Eliquis for DVT prophylaxis Consultants: Cardiology, pulmonary Extracted from:Title: .Anesthesia Progress Note APMS*PNB [facility] Author: Renay Lopez CRNA Date: 05/18/18 Plan APMS Plan Discharge from [facility] care: Analgesics per Primary Service. Extracted from:Title: Clinical Document 05/19/2017 [facility] Author: Christian Lanier MD Date: 05/18/17 PATIENT NAME: GENARO KAUR DATE OF PROGRESS NOTE: 05/18/2017 TYPE: INFECTIOUS DISEASES> *_*_* REASON FOR FOLLOWUP: Right shoulder infection. SUBJECTIVE: The patient is feeling better. right shoulder continue to i mprove. MEDICATIONS: List reviewed. Antibiotics include elisa penem day #4 and vancomycin day #17. He has been on antibiotics since 05/01/2017. PHYSICAL EXAMINATION: VITAL SIGNS: reviewed. GENERAL: No acute distress. LUNGS: Relatively clear. HEART: S1, S2, regular rate. No murmurs. ABDOMEN: Soft, obese, nontender. EXTREMITIES: Right shoulder has a surgi ofelia incision with sutures, minimal erythema noted, no drainage. LABORATORY DATA: Reviewed. Cultures are all so far negative. IMPRESSION: A 76-year-old male with infected right s ulder arthroplasty status post debridement x 2. Culture positive for alpha streptococcus on the 1st debridement. He remains with erythema and signs of infecti on, underwent a 2nd debridement. Antimi crobials were further adjusted. Cultures are so far negative. RECOMMENDATIONS: Continue meropenem and vancomycin. orders for HH was placed, ok to go home. F/u with Dr Alexandra next week. Extracted from:Title: Clinical Document Author: Raza Decker MD Date: 05/15/17 OP PATIENT NAME: GENARO KAUR DATE OF OPERATION/PROCEDURE: 05/15/2017 *_*_* PREOPERATIVE DIAGNOSIS Infected right reverse shoulder arthroplasty. POSTOPERATIVE DIAGNOSIS Infected right reverse shoulder arthroplasty. PROCEDURE PERFORMED Open irrigation and excisional debrideme nt of right reverse shoulder arthroplasty ANESTHESIA General with single shot interscalene block. IMPLANTS None. SPECIMENS Deep culture swab from right shoulder joint x 3. Tissue for culture FINDINGS Acute purulent infection involving right shoulder joint, deep, down to the level of the prosthesis. ESTIMATED BLOOD LOSS 25 mL. COMPLICATIONS None. INDICATIONS FOR PROCEDURE Genaro is a 76-year-old male who underw ent a revision reverse shoulder arthroplasty on 04/13. He then developed a postop hematoma. He noted spontaneous drainage of his hematoma last week. Three days after spontaneous drainage of his hemato ma he developed signs and symptoms of infection including erythema, swelling and fluctuance. He denied any fevers or chills at home. He underwent inital irrigat ion and debridement with retention of co mponents on 05/01/17. On his first post- op visit, persistent purulence was noted. The decision was made to return to the operating room. DESCRIPTION OF PROCEDURE The patient was identified in the preope rative holding area and a single shot interscalene block was administered. The patient was taken back to the operating room. General anesthesia was administered . The patient was positioned in the oleg ch chair position. The right upper extremity was prepped and draped in the usual sterile fashion. A timeout was performed. Preoperative antibiotics were held u ntil cultures were obtained. Preoperati ve ESR and CRP were sent off. An incision was made over the site of the previous scar. Immediately we noted purulent material escaping from the shoulder joint. Infection tracked deep all the way to t he prosthesis. Cultures were sent. Tissue was obtained and sent for culture. Antibiotics were initiated. Using rongeur we rongeured unhealthy-appearing tissue from the subcutaneous wound edges as wel l as the deep deltopectoral interval. The reverse shoulder arthroplasty was stable. We dislocated the reverse shoulder arthroplasty. The polyethylene component was intact and well preserved. The dec ision was made to retain components because this was still within the acute infection window. Using a rongeur we removed deep synovium from the glenohumeral join t as well as tissue from the proximal hu merus. The posterior rotator cuff was inspected and found to remain intact. We then copiously irrigated the joint with 3 liters of normal saline with bacitracin . The joint was reduced and was found t o again be very stable. We then bluntly dissected the subcoracoid space and removed any necrotic material from this area. Using a Jorgensen we then further debrided all of our wound edges down to a bleedin g bed. After this we copiously irrigated the wound with another 3 liters of normal saline with bacitracin. No further purulence was visualized. Using a chloroh exadine soak we soaked the wound for sev eral minutes. We then irrigated the wound one last time. We placed a deep Hemovac drain. We placed vancomycin powder deep into the wound. We placed a single M onocryl stitch in our deltopectoral inte rval to reapproximate this. We excised our unhealthy-appearing skin edges and closed our skin using 2-0 Monocryl and 3- 0 nylon sutures. A sterile dressing was a pplied. The patient was extubated witho ut difficulty. He was placed into a sling. He was transferred to the recovery room in stable condition. Patient will be admitted to the orthoped ic floor for IV antibiotics. Infectious disease consult will be placed. Further management will be determined by culture results. Extracted from:Title: Clinical Document 05/07/2017 [facility] Author: Kasandra Alexandra MD Date: 05/07/17 PATIENT NAME: GENARO KAUR DATE OF PROGRESS NOTE: 05/07/2017 *_*_* REASON FOR FOLLOWUP Surgical wound infection. SUBJECTIVE The patient is overall feeling better. No diarrhea, no new complaints, raising arm more than allowed after sugery. MEDICATIONS The list was reviewed. Antibiotics incl ude ceftriaxone day #4 and vancomycin day #7, s/p cefepime for 4 days. PHYSICAL EXAMINATION VITAL SIGNS: Reviewed. GENERAL: No acute distress, alert, interactive. LUNGS: Clear. HEART: S1 and S2 RRR. Right shoulder surgical incision covered with a dressing. N o erythema. EXTREMITIES: No edema. LABORATORY DATA Reviewed. IMPRESSION A 76-year-old male with infected right s houlder arthroplasty status post debridement. Wound culture with small amount of alpha-streptococcus, the signficance of which is unclear. RECOMMENDATIONS Continue a combination of cefriaxone and vancomycin for now, d/c to snf, CBC, CMP, CRP and vancomycin trough weekly; f/u with me in about 2 weeks. He will need a total of 6 weeks of IV antibiotics likely followed by chronic suppression. Extracted from:Title: Anesthesia [facility] Progress Note* 017 [facility] Author: Fidencio Almeida CRNA PHARMACEUTICAL SPECIALTY REPRESENTATIVE Date: 01/27/17 Plan APKS Plan Discharge from [facility] care: Analgesics per Primary Service. Extracted from:Title: Clinical Document Author: Raza Decker MD Date: 01/26/17 OP PATIENT NAME: GENARO KAUR DATE OF OPERATION/PROCEDURE: 01/26/2017 *_*_* PREOPERATIVE DIAGNOSIS: Right shoulder irreparable rotator cuff tear POSTOPERATIVE DIAGNOSES: 1. Right shoulder irreparable rotator cuff tear 2. Retained shoulder hardware PROCEDURES PERFORMED: 1. Right reverse total shoulder arthroplasty. 2. Deep hardware removal IMPLANTS: 1. Tornier Ascend Flex 5B stem. 2. A 29 mm +3 Perform baseplate with 6.5mm central screw 3. Superior and inferior locking screws. 4. A 39mm centered glenosphere. 5. A +0 low offset tray. 6. A +6 poly. SALES ENGAGEMENT EXECUTIVE: [employer] ANESTHESIA: General endotracheal with interscalene catheter. COMPLICATIONS: None. SPECIMENS: None. INDICATIONS FOR PROCEDURE: The patient is a 76-year-old male with a n irreparable right shoulder rotator cuff tear. He had failed appropriate nonoperative treatment. The patient wished to proceed with surgery. Risks and benefit s were discussed. These specifically in cluded but were not limited to bleeding, infection, damage to surrounding nerves and blood vessels, persistent pain, periprosthetic fracture, instability, scapula r notching, axillary nerve injury, poor function. The patient understood these risks and elected to proceed. Informed consent was obtained. DESCRIPTION OF PROCEDURE: The patient was identified in the preope rative holding area. The surgical site was marked. An interscalene catheter was placed. The patient was taken the operating room. General anesthesia was admin istered. The patient was positioned in the beach chair position. The right upper extremity was prepped and draped in the usual sterile fashion. A timeout was performed. Preoperative antibiotics were administered. An incision was made ove r the anterior aspect of the shoulder. The deltopectoral interval was bluntly developed. The cephalic vein was taken laterally. The subacromial and subdeltoid spaces were released. We incised the c lavipectoral fascia. The axillary nerve was palpated and found to be in continuity. A tag stitch was placed in the subscapularis. The rotator cuff was inspecte d and found to be completely torn. Ther e was no rotator cuff attached the proximal humerus other than a small portion of teres minor. Anterior soft tissue and inferior capsule were released off the hu merus. The arm was flexed, adducted and externally rotated to protect the axillary nerve. The shoulder was dislocated. The humeral head cut was created in 20 degrees of retroversion. There was a sig nificant amount of anchors in the thelma l head, and extensive time was spent to remove these anchors. We turned our attention to the glenoid. A Ray-Matthew was placed over the deltoid to protect the muscl e. Our deep glenoid retractors were mello lester. The patient had a very small glenoid. Biceps tendon stump and labrum was removed circumferentially. The inferior capsule and triceps tendon was released o ff the inferior glenoid. We sized the g lenoid to 29 mm diameter. We the threaded post-baseplate after preparation according to standard Tornier instrumentation technique in 10 degrees of inferior tilt . We placed superior and inferior lockin g screws with excellent purchase. We then placed a 39 mm glenosphere. We noted appropriate engagement of the lag screw. The humerus was again dislocated. We p repared the humerus according to standa Tornier instrumentation technique. We implanted a size 5B Ascend Flex stem. We trialed our liners. We felt that a low offset liner dialed to the 6 o'clock position provided excellent stability. This was impacted into place. Our smallest +6 polyethylene liner was impacted into place as well. The shoulder was reduced. It was very stable. The shoulder was taken through range of motion. Chelsea ent noted to have excellent range of motion. The axillary nerve was palpated. It was in continuity. The wound was copiously irrigated. TXA was administered i nto the wound. We closed the deltopecto ral interval using a #1 Vicryl. We placed vancomycin powder into the wound. REC was administered into te periarticular tissues. We closed the skin using 2-0 Mo nocryl and 3-0 Monocryl. A sterile dres sing was applied. The patient was extubated without difficulty. She was placed into a sling. She was transferred to the recovery room in stable condition. Extracted from:Title: Clinical Document 03/24/2016 [facility] Author: Mary Mcknight MD Date: 03/24/16 PM&R Discharge Summary Date of Admission: 03/17/16 Date of Discharge: 03/14/16 Discharge Diagnosis: ICU-aquired weakness TIA with right hemiparesis, improving L5-S1 non-union with foraminal stenosis Prior L4-S1 posterior spinal instrumenta tion and attempted fusion at outside hospital L3-L4 central and lateral recess stenosi s with significant right-sided L3-L4 foraminal stenosis Intractable low back pain Right lower extremity radiculopathy Degenerative lumbar scoliosis Severe sepsis, resolved Postoperative ileus, resolved Delirium, improving Acute blood loss anemia secondary to GI bleed, stabilizing Upper GI bleed, resolved BPH Gastric reflux Pulmonary nodule Hepatic lesion Debility Peripelvic cysts Hypothyroidism HPI: 75 yo male with history of chronic back pain with multiple back surgeries s/p elective back surgery on 02/21/2016 now being admitted to [facility] on 03/17/2016 for acute inpatient rehabilitation for ICU acquired weakness and late effects of TI A after surgery for radiculopathy. Patient has had a long history of chronic back pain with multiple back surgeries and pain procedures. Patient reports having lo wer back surgery in 2007 with hardware p laced at that time. Since then he has had worsening back pain, imaging showed unstable posterior hardware and so patient decided to undergo elective back surgery on 02/21/2016. He underwent L5-S1 interb kalyani graft placement via midline abdominal retroperitoneal approach, L5-S1 anterior lumbar interbody fusion/arthrodesis with rhBMP-2 and crushed cancellous allogra ft chips by Dr. Riky Brambila and Dr. Abelino Gaspar on 02/21/2016. He had a complicated hospital course including TIA, right hemiparesis, sepsis, ICU stay. He was admitted for rehab at [facility] on 03/17/16. Hospital Course: Diagnosis: 1. For effects of ICU aq uired weakness, critical illness polyneuropathy, TIA with right hemiparesis and debility Comment: Patient showed improving endurance with therapy. He participated in 3 hrs of therapy per day. FIM scores by discharge were: Therapy update: PT Current Status Mobility Transfer Bed to and From Chair: Modified independence Performed: 03/23/16 15:40 Tub, Shower Transfer: Does not occur Performed: 03/18/16 14 :10 Ambulation Level Surfaces Ambulation Device: Walker, rolling Performed: 03/23/16 15:4 0 Ambulation Distance: 300 ft Performed: 03/23/16 15:40 Ambulation Uneven Surfaces Locomotion Walk: Supvn/Setup - 5 Performed: 03/23/16 15:40 Stairs Device: Bilateral rails Performed: 03/23/16 15:40 Number of Stairs Performed: 14 Performed: 03/23/16 15:40 Locomotion Stair: Supvn/Setup - 5 Performed: 03/23/16 15:40 Bed,Chair,Wheelchair: Modified I - 6 Performed: 03/23/16 15 :40 Wheelchair Mobility Level Surfaces Wheelchair Mobility Level Distance: 200 ft Performed: 03/18 14:10 OT Current Status ADL Eating: Complete I - 7 Performed: 03/23/16 09:31 Grooming: Complete I - 7 Performed: 03/23/16 09:31 Bathing: Supvn/Setup - 5 Performed: 03/23/16 09:31 Upper Extremity Dressing: Complete I - 7 Performed: 6 09:31 Lower Extremity Dressing: Modified I - 6 Performed: 6 09:31 Toileting: Modified I - 6 Performed: 03/24/16 09:03 Toilet Transfer: Modified I - 6 Performed: 03/23/16 15:40 Tub Transfer: Does not occur Performed: 03/18/16 14:10 Shower Transfer: Modified I - 6 Performed: 03/23/16 15:40 IADL Meal Prep: MOD I Performed: 03/23/16 09:31 Writing: Complete I Performed: 03/23/16 09:31 Keyboarding: Complete I Performed: 03/23/16 09:31 Phone Use: Complete I Performed: 03/23/16 09:31 Cognition Cognition: Within functional limits Performed: 03/23/16 09: 31 Vision Vision Status: Other: wears glasses Performed: 03/23/16 09: 31 TIRE SPECIALIST Current Status Severity Level Comprehension: Modified I - 6 Performed: 03/23/16 14:57 Comprehension Mode: Auditory Performed: 03/23/16 14:57 Expression: Standby prompting - 5 Performed: 03/23/16 14:57 Expression Mode: Vocal Performed: 03/23/16 14:57 Memory: Moderate prompting - 3 Performed: 03/23/16 14:57 Problem Solving: Standby prompting - 5 Performed: 03/23/16 14:57 Social Interaction: Modified I - 6 Performed: 03/23/16 14:5 7 Diagnosis: 2. Chronic radicular low back pain and post- operative pain Comment: Medications were adjusted and it was controlled on cymbalta and prn APAP Diagnosis: 3. Neurogenic bowel Comment: Bowel regimen was adjusted and he had more regular bowel movements by discharge. Other issues managed by consulting hospi talist: included hypothyroidism, which he continued LT4, for Gerd his nexium was to be resumed at discharge. He continued flomax for BPH. He also was on lovenox for DVT ppx. Discharge condition: good Discharge diet: Regular, heart healthy Discharge disposition: home with Discharge Medications Ventolin HFA 90 mcg/inh inhalation aeros ol with adapter :2 puff, INHALER, Q6H, Dispense quantity sufficient for 100 uses., PRN: wheezing, coughing, or shortness of breath, 1 ea, 1 Refill(s) Ordered by: Ilsa Dumas MD - 03/23/2016 10:21 trazodone 100 mg oral tablet :100 mg, 1 tab, PO, Bedtime, PRN: Insomnia, 30 tab, 1 Refill(s) Ordered by: Ilsa Dumas MD - 03/23/2016 10:20 NexIUM 40 mg oral delayed release capsul e :40 mg, 1 cap, PO, BID, 1 caplet, 0 Refill(s) Ordered by: Ilsa Dumas MD - 03/23/2016 10:19 Discharge follow up: Follow up Care Provider: Agnieszka Brambila, Orthopedic Surgery Service Address: CLINIC (1) [facility] FOR FOLLOW UP APPOINTMENT PLEASE CALL CLINIC [address] [facility] [address] [facility] [address] Comments: Follow up with Dr. Brambila within 2 weeks of discharge from [facility] - call for appointment - [phone] Provider: Javier Cordon, Medicine Service Address: [address] [place], [place] [address]y [facility] [address] Comments: Follow up with your PCP [facility] 7-10 days of discharge from [facility]/or as previously scheduled. Provider: Mary Mcknight, Physical Medicine/Rehabilitation Service Address: [address] [place] [address] [phone] When: 07/26/2016 1:15 PM Comments: [facility] Outpatient Medical Cli zenia with Dr. Candelario, appointment line is [phone]. Other: [facility] Furniture Technician - Israel Diego RN Comments: [phone] Other: [facility] Physician - Ion Dumas MD Comments: [phone] Other: [facility] Trim Installer - Diego Garcia LCSW Comments: [phone] Other: [facility] Therapy Dep[facility] ent. Address: [address] [address] Comments: Referral sent to [facility] for physical, occupational and speech services. - [phone]. Total time in discharge of this patient was 40 minutes. Extracted from:Title: Hospitalist Progress Note Author: Savanna Salazar DO Date: 03/23/16 Assessment/Plan 75 y/o male with chronic back pain secon patricia to failed hardware and RLE radiculopathy s/p fixation admitted for comprehensive rehab. Hospitalization at [facility] complicated by ileus requiring colonic decompression debility: continue rehab - management per primary team chronic pain: management per primary team hypothyroid: continue LT4 GERD: resume nexium at discharge BPH: continue flomax PPX:[facility] H[employer]PITALISTIS [employer]W SUPERVISOR; please page [phone] with questions Extracted from:Title: Hospitalist Consult Note Author: Savanna Salazar DO Date: 03/18/16 Assessment/Plan 75 y/o male with chronic back pain secon patricia to failed hardware and RLE radiculopathy s/p fixation admitted for comprehensive rehab debility: continue rehab - management per primary team positive BCX: this is a contaminate and there is NO evidence of osteomyelitis on MRI - discontinue abx. will monitor and remove PICC this week chronic pain: management per primary team hypothyroid: continue LT4 GERD: continue PPI HLD: LDL < 70; discontinue statin BPH: continue flomax PPX:lovenoxSC Thank you for allowing us to assist in this patient's care HOSPITALISTIS [employer]W SUPERVISOR; please page [phone] with questions Extracted from:Title: Rehabilitation History and Physical Author: Yrn Raya DO Date: 03/18/16 PHYSICAL MEDICINE AND REHABILITATION HISTORY AND PHYSICAL DATE OF ADMISSION: REASON FOR ADMISSION: ATTENDING PHYSICIAN: Available documentation in the [facility] medical record was comprehensively reviewed and summarized to formulate this history, physical, and impression, and plan. CHIEF COMPLAINT weakness, pain s/p prolonged hospital stay after scheduled b ack surgery at bedside, who contributed to the HPI. 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 Patient has had a long history of chronic back pain with multiple back surgeries and pain procedures. Patient reports having lower back surgery in 2007 with yadira dware placed at that time. Since then he has had worsening back pain, imaging showed unstable posterior hardware and so patient decided to undergo elective back surgery, which was scheduled for 02/21/20 16. He underwent L5-S1 interbody graft p lacement via midline abdominal retroperitoneal approach, L5-S1 anterior lumbar interbody fusion/arthrodesis with rhBMP-2 and crushed cancellous allograft chips by Dr. Riky Brambila and Dr. Sudeep Gaspar on 6. Recovery was complicated by: TIA with transient right sided weakness, approximately two days after the surgery, weakness now resolved; Sacral osteomyelitis; Alpha streptococcus bacteremia (1 of 2 b lood cultures 03/13/2016) on ceftriaxone. FUNCTIONAL/SOCIAL HISTORY Prior to injury patient was modified ind ependent with activities of daily living and ambulated with cane prior to injury. He lives with in a one story home with no steps to get in [place], [place]. Goa l to go [facility] for Green[facility] day. Reinaldo hewitt from [facility]. Has three children with one passing away in sleep, unknown cause. Preadm Current Functional Status Bathing : MAX A Bed Mobility : MAX A Bed Wheelchair Transfer : Does not occur Bladder : MIN A Bowel : MIN A Eating : Does not occur Grooming : MIN A Locomotion Walk : MOD A Locomotion Wheelchair : Does not occur Lower Body Bathing : MAX A Lower Extremity Dressing : MAX A Rolling-Left to Right : MIN A Rolling-Right to Left : MIN A Toilet Transfer : MOD A Sit to Stand : MOD A Supine to Sit : MIN A, MOD A Tub, Shower Transfer : MOD A Upper Body Bathing : MIN A Upper Extremity Dressing : MIN A PAST MEDICAL HISTORY Diverticulitis s/p colon resection Hyperlipidemia GERD BPH Hypothyroidism Chronic back pain s/p multiple surgeries and procedures PAST SURGICAL HISTORY Colon operation Shoulder repair Multiple back surgeries FAMILY HISTORY Father: heart disease, High blood pressure; Stroke; Type 2 d iabetes mellitus Mother: COPD (smoker) MEDICATIONS The patient's MAR has been reviewed. Scheduled Meds (16): 03/18/16 DULoxetine (Cymbalta) 60 mg PO Daily 03/18/16 ascorbic acid 500 mg CHEW Daily 03/18/16 aspirin 325 mg PO Daily 03/17/16 atorvastatin 80 mg PO Bedtime 03/18/16 cefTRIAXone 1 gm IVPB [id number] 03/17/16 clotrimazole topical (clotrimazole topical 1% cream ) 1 appl TOP BID 03/18/16 cyanocobalamin 1,000 microgram PO Daily 03/18/16 enoxaparin 40 mg SUB-Q QNoon 03/18/16 folic acid 1 mg PO Daily 03/18/16 levothyroxine 50 microgram PO Daily 03/18/16 multivitamin with minerals 1 tab PO Daily 03/17/16 pantoprazole 40 mg PO BID-Before Meals 03/18/16 polyethylene glycol 3350 17 gm PO Daily 03/18/16 tamsulosin (Flomax) 0.4 mg PO Daily 03/18/16 thiamine 100 mg PO Daily 03/17/16 trazodone (trazodone 100 mg oral tablet) 100 mg PO Bedtime Unscheduled Meds: None ALLERGIES Allergies: NKDA REVIEW OF SYSTEMS Constitutional: denies fever, chills Eye: denies change in vision Ear/Nose/Mouth/Throat: denies nasal drainage Respiratory: +coughing, tesselon pearls ineffective Cardiovascular: denies chest pain Gastrointestinal: denies abdominal pain; reports ileus res olved a week ago Genitourinary: continent Hematology/Lymphatics: anemia, GI bleed Endocrine: hypothyroid Musculoskeletal: left shoulder pain s/p surgery Integumentary: surgical incisions Neurologic: denies headache, +neuropathic pain Psychiatric: denies change in mood ROS reviewed as documented in chart PHYSICAL EXAMINATION Vitals Tmp(F) Tmp(C) Ttype B P MAP Pulse RR SpO2 FIO2 ETCO2 03/17 18:00 97.9 36.61 scan 133/85 --- 93 18 --- --- --- 24 Hr Tmax: 97.9F (36.61c) at 03/17 18:0 0 Vital Signs are the last 5 in the past 48 hours. 24 Hr Tmin: 97.9F (36.61c) at 03/17 18: 00 Weights are the last 5 in 60 days, plus initial. Date Wt(kg) Wt(lb) Ht(cm) Ht(in) Method BM I BSA 03/17 (initial) 87.14 191.70 Measured 27. 6 2.07 03/17 177.80 70.00 Stated (no point of care glucose results charted in last 24 hours) Most Recent Scores: 03/18/16 Pain Intensity NRS (0-10) 0 03/17/16 Sebastian Score 16 03/17/16 Worthy Mullins Fall Score 6 (no lines, tubes, drains information documented) (no surgical procedures documented) General: male laying in bed in no acute distress resting com fortably Eyes: extraoccular muscles intact bilaterally with no sclera l icterus ENT: no nasal drainage, trachea midline Respiratory: clear to auscultation bilat erally with no rhonchi, rales or wheezes, strong cough on deep breathing Cardiovascular: regular rate Gastrointestinal: soft, nontender, nondistended, normal yanna l sounds Integumentary: pink, dry Neuro: Mental status/cognition: alert, good fluency, good co mprehension Cranial nerves: CN II-XII intact bilaterally Musculoskeletal: 4-5/5 strength upper an d lower limb bilaterally in flexion and extension Psychiatric: appropriate affect Heme/lymph/imm: no signs of overt bleeding LABORATORY DATA All laboratory data has been personally revieweed. Recent pertinent laboratory data includes: Hct: 26.4 % Low (03/17/16 06:58:56) Hgb: 8.6 g/dL Low (03/17/16 06:58:56) MCH: 28.1 pg (03/17/16 06:58:56) MCHC: 32.5 g/dL (03/17/16 06:58:56) MCV: 86.3 fL (03/17/16 06:58:56) MPV: 7.7 fL (03/17/16 06:58:56) Platelet: 357 K/CMM (03/17/16 06:58:56) RBC: 3.05 M/CMM Low (03/17/16 06:58:56) RDW: 14.8 % High (03/17/16 06:58:56) WBC: 8.4 K/CMM (03/17/16 06:58:56) Anisocyte: +1 Abnormal (03/05/16 14:46:25) Atypical Lymphs: 0.0 % (03/08/16 09:24:16) Bands: 0.0 % (03/08/16 09:24:16) Basophils: 0.8 % (03/17/16 06:58:57) Basophils #: 0.1 K/CMM (03/17/16 06:58:57) Eosinophils: 1.3 % (03/17/16 06:58:57) Eosinophils #: 0.1 K/CMM (03/17/16 06:58:57) Lymphocytes: 24.9 % (03/17/16 06:58:57) Lymphocytes #: 2.1 K/CMM (03/17/16 06:58:57) Macrocyte: 1 + Abnormal (03/10/16 10:55:46) Metamyelocytes: 1.0 % (03/08/16 09:24:16) Monocytes: 6.8 % (03/17/16 06:58:57) Monocytes #: 0.6 K/CMM (03/17/16 06:58:57) Myelocytes: 1.0 % High (03/08/16 09:24:16) Plt Morph: Normal (03/11/16 08:17:03) Polychrom: Slight (03/11/16 08:17:03) Segs: 66.2 % (03/17/16 06:58:57) Segs-Bands #: 5.5 K/CMM (03/17/16 06:58:57) AGAP: 11.6 mEq/L (03/17/16 07:19:00) Chloride Lvl: 106 mEq/L (03/17/16 07:19:00) CO2: 27 mEq/L (03/17/16 07:19:00) Potassium Lvl: 3.6 mEq/L (03/17/16 07:19:00) Sodium Lvl: 141 mEq/L (03/17/16 07:19:00) A/G Ratio: 0.7 (03/17/16 07:19:00) Albumin Lvl: 2.4 g/dL Low (03/17/16 07:19:00) Alk Phos: 120 unit/L (03/17/16 07:19:00) ALT: 35 unit/L (03/17/16 07:19:00) AST: 18 unit/L (03/17/16 07:19:00) B/C Ratio: 5 Low (03/17/16 07:19:00) Bili Total: 0.4 mg/dL (03/17/16 07:19:00) BUN: 4 mg/dL Low (03/17/16 07:19:00) Calcium Lvl: 8.5 mg/dL (03/17/16 07:19:00) Creatinine Lvl: 0.86 mg/dL (03/17/16 07:19:00) eGFR: 86 mL/min/1.73m2 (03/17/16 07:19:01) Globulin: 3.5 g/dL (03/17/16 07:19:00) Glucose Lvl: 100 mg/dL High (03/17/16 07:19:00) Total Protein: 5.9 g/dL Low (03/17/16 07:19:00) CO2: 27 mEq/L (03/17/16 07:19:00) Chloride Lvl: 106 mEq/L (03/17/16 07:19:00) Sodium Lvl: 141 mEq/L (03/17/16 07:19:00) Glucose Lvl: 100 mg/dL High (03/17/16 07:19:00) Calcium Lvl: 8.5 mg/dL (03/17/16 07:19:00) Potassium Lvl: 3.6 mEq/L (03/17/16 07:19:00) BUN: 4 mg/dL Low (03/17/16 07:19:00) AGAP: 11.6 mEq/L (03/17/16 07:19:00) Creatinine Lvl: 0.86 mg/dL (03/17/16 07:19:00) INR: 1.20 High (02/22/16 05:15:56) Hgb A1C: 5.9 % High (02/24/16 06:47:14) No qualifying data available. IMAGING Patient's diagnostic imaging and reports have been personally reviewed and visualized. Pertinent imaging reports include: IMPAIRMENTS L5-S1 non-union with foraminal stenosis Prior L4-S1 posterior spinal instrumenta tion and attempted fusion at outside hospital L3-L4 central and lateral recess stenosi s with significant right-sided L3-L4 foraminal stenosis Intractable low back pain and right lower extremity radiculo naomi Degenerative lumbar scoliosis Severe sepsis Postoperative ileus Delirium Acute blood loss anemia secondary to GI bleed Upper GI bleed Hypokalemia Hypophosphatemia BPH Gastric reflux TIA Pulmonary nodule Hepatic lesion Debility ICU polyneuropathy vs. myopathy Peripelvic cysts ACTIVITY LIMITATIONS Mobility Self care activities PARTICIPATION RESTRICTIONS Leisure activities Community reintegration Interpersonal relationships Driving PROPHYLAXIS Fall risk prophylaxis: out of bed with a ssistance only until cleared by physical therapy Pressure injury prophylaxis: turn Q2hrs and monitor for skin changes DVT prophylaxis: lovenox GI prophylaxis: protonix (upper GI bleed, gastric reflux) REHABILITATION PLAN Rehabilitation for the above impairments: Patient requires a physician specializin g in Physical Medicine and Rehabilitation to provide daily oversight and close medical supervision including: Rehabilitation leadership, coordination of treatment team, medical and co-morbidity management, pain manag ement, bowel and bladder. Physician and team will monitor for pote ntial clinical complications including: DVT, bleeding, infection, UTI, skin breakdown, falls, pain. Risk for complications is:moderate Patient requires 24-hour Rehabilitation Nursing for: aggressive ROM exercises and stretching to prevent contractures, pain issues, bowel, bladder, skin integrity/wound care, medication management, safet y measures, carry-over of therapeutic st rategies, patient/family education, preventing risk factors/complications, family/caregiver training. Patient requires intense level of servic es by specially trained therapist for three hours of therapy daily, 5 to 7 days a week, with a coordinated, interdisciplinary team approach to delivery of the program. Patient needs: Physical therapy 1 to 1.5 hours daily to improve: transfer skills, balance training, gait training, neuromuscular reeducation, ROM/joint mobilization, strengthening, stretching, endurance, stair training, DME assessment, patient caregiver training. Occupational therapy 1 to 1.5 hours charla y to improve: ADLs/self care skills, toileting, toilet transfers, splinting, adaptive equipment, household tasks, higher functioning activities, strengthening, st retching, endurance, ROM, DME assessment, patient/caregiver training. Speech therapy to improve: Oral and pharyngeal dysphagia, dy sphonia, cognition Knockout Worker and case management for discharge planning and family interventions. Dietary and Nutrition services for adequate nutrition and ed ucation. PHYSICAL MEDICINE PLAN # L5-S1 non-union with foraminal stenosis # Prior L4-S1 posterior spinal instrumen tation and attempted fusion at outside hospital # L3-L4 central and lateral recess steno sis with significant right-sided L3-L4 foraminal stenosis # Degenerative lumbar scoliosis s/p spine surgery on 02/21/2016 Monitor. Therapies # Intractable low back pain and right lo wer extremity radiculopathy s/p spine surgery # Chronic back pain # Acute postsurgical pain # Neuropathic pain Pain may be a limiting factor to participation in therapies and recovery. Monitor. Duloxetine, tylenol PRN. # Neurogenic Bowel, continent Postoperative ileus, improved Monitor. Miralax, suppository PRN # Neurogenic Bladder, continent # History of BPH Monitor. Flomax. Post void residuals. Straight cath if PVRs greater than 250cc #Delirium Monitor. Neuropsych. Work on sleep wake cycles. # Insomnia Monitor Trazodone # Coughing Tesselon pearls not effective. Possibly secondary to reactive airway disease as coughing with deep inhalation. Ordered Nebulizer treatment. Monitor. # Bacteremia # Osteomyelitis Monitor. Follow up on ID recommendations. Ceftriaxone. # Severe sepsis, resolved: Monitor. # Chronic hypothyroidism Monitor. TSH level. Levothyroxine # Chronic hyperlipidemia Monitor. Atorvastatin, Aspirin # Acute blood loss anemia secondary to GI bleed # Upper GI bleed # Gastric reflux Hemoglobin reached 7 at one point. Last hemoglobin was 8.6. Assymptomatic. Monitor. Protonix # Hypokalemia, resolved # Hypophosphatemia, resolved Monitor. # TIA, two days post op, improving Symptoms improving Monitor. # Pulmonary nodule # Hepatic lesion # Chronic, peripelvic cysts PCP outpatient followup. # Dysphagia, resolved Was being fed by NG tube until four days ago. Was upgraded t o regular diet. Regular diet. Vitamin C, cobalamin, zinc, multivitamin, thia mine, folic acid. Social Worker Psychiatric to optimize diet and assess caloric needs. Vitamin B12 levels, thiamine, folic acid levels. # Code status: full resuscitation DISPOSITION Admit [facility] to [facility] for aggressive inp atient rehabilitation for the above impairments. Discharge Plans: Potential goals by discharge include: Mobility (bed, wheelchair): MOD I Eating/Swallowing: Independent Transfers: MOD I ADLs: MOD I Communication/Cognition: Independent Patient's prognosis for significant practical improvement is : Good Estimated length of stay: 2-3 weeks Anticipated discharge destination: Home with family Anticipated post-discharge treatments: Outpatient therapies. Follow up: PCP (Dr. Javier Cordon), PM&R, Neurosurgery (Dr. Brambila in three weeks), OT evaluation for driving Yrn Raya DO, PGY-2 Physical Medicine and Rehabilitation Addendum by Piper Doll MD on 03/18/2016 14:54 I saw, examined and discussed the patien t with the resident and agree with the documentation. There are no medical or functional changes since the preadmission assessment. The patient has ongoing medica l and functional impairments that can sa munira be met in the IRF setting, and these needs cannot be adequately addressed in a lower level of care, as the patient requires 24hr nursing and daily medical ma nagement. The patient also has comorbidi ties which also necessitate close medical supervision, specialized rehabilitation nursing, and skilled therapy intervention. The patient is able to participate in and benefit from an acute inpatient shagufta abilitation program, with anticipated measurable gains as a result of this program. There are no obvious barriers to disposition to the community following the IRF admission. He is fairly exhausted from the transfer and not particularly anxious to engage. Will monitor as he becomes more engaged in the therapy, etc. Orders reviewed and evals in progress. Speech does not feel they need to follow. Extracted from:Title: Hospitalist History and Physical 03/17 [facility] Author: Prince Brian Thomson MD Date: 02/22/16 Assessment/Plan 75 year old male with chronic back pain admitted for lumbar radiculopathy, POD#1 S/P Removal hardware L4-S1 PSIF,L3-4, L5-S1 decompression laminectomy 1.Lumbar radiculopathy; Lumbar fusion non-union s/p surgery. - PLAN: continue pain control. Please coordinate with ORS on when to start PT 2.S/P hardware removal Unstable posterior hardware - Will manage as per Ortho 4.BPH (benign prostatic hypertrophy) Navarro in place. Continue tamsolusin 5.Gastric reflux Currently asymptomatic. Continue PPI 6.Hypothyroidism Currently on levothyroxine 7.Hyperlipidemia Currently on simvastatin 40 MG at bedside Prophylaxis SCD Disposition Will discharge once cleared by Surgical team Plan of Care No Data Provided for This Section Social History Social History Date Source Social History TypeResponse 05/17/2018 [facility] Substance Abuse Use: None. Alcohol Past, Type Beer, Liquor. Last use: 10 years ago. Smoking Status Former smoker; Type: Cigarettes; Exposur e to Tobacco Smoke None; Cigarette Smoking Last 365 Days No; Reg Smoking Cessation Counseling No; Number of years: 28; entered on: 05/17/18 Social History TypeResponse 05/17/2018 [facility] [place] Substance Abuse Use: None. Alcohol Past, Type Beer, Liquor. Last use: 10 years ago. Smoking Status Former smoker; Type: Cigarettes; Exposur e to Tobacco Smoke None; Cigarette Smoking Last 365 Days No; Reg Smoking Cessation Counseling No; Number of years: 28; entered on: 05/17/18 Social History TypeResponse 05/17/2018 [id number] Alcohol Past, Type Beer, Liquor. Last use: 10 years ago. Substance Abuse Use: None. Smoking Status Former smoker; Type: Cigarettes; Exposur e to Tobacco Smoke None; Cigarette Smoking Last 365 Days No; Reg Smoking Cessation Counseling No; Number of years: 28; entered on: 05/17/18 Social History TypeResponse 05/17/2018 [place] Alcohol Past, Type Beer, Liquor. Last use: 10 years ago. Substance Abuse Use: None. Smoking Status Former smoker; Type: Cigarettes; Exposur e to Tobacco Smoke None; Cigarette Smoking Last 365 Days No; Reg Smoking Cessation Counseling No; Number of years: 28; entered on: 03/07/19 Social History TypeResponse 05/17/2018 [facility] Alcohol Past, Type Beer, Liquor. Last use: 10 years ago. Substance Abuse Use: None. Smoking Status Former smoker; Type: Cigarettes; Exposur e to Tobacco Smoke None; Cigarette Smoking Last 365 Days No; Reg Smoking Cessation Counseling No; Number of years: 28; entered on: 05/17/18 Social History TypeResponse 03/18/2016 [facility] Alcohol Past Smoking Status Former smoker; Exposure to Tobacco Smoke None; Cigarette Smoking Last 365 Days No; Reg Smoking Cessation Counseling No Social History TypeResponse 03/18/2016 [facility] Alcohol Past Smoking Status Former smoker; Exposure to Tobacco Smoke None; Cigarette Smoking Last 365 Days No; Reg Smoking Cessation Counseling No Social History [facility] Smoking Status Former smoker; Exposure to Tobacco Smoke None; Cigarette Smoking Last 365 Days No; Reg Smoking Cessation Counseling No Family History No Data Provided for This Section Advance Directives No Data Provided for This Section Functional Status No Data Provided for This Section
[2019-11-12] MEDS ORDERED: NA CHLORIDE 0.9% 1,000 ML ONE (08:18)
[2019-11-12] MEDS ORDERED: CEFAZOLIN/SWI 1gm 1 GM/10 ML SYR ONE (08:18)
[2019-11-12] MEDS ORDERED: ALBUTEROL 2.5 MG/3 ML NEB SOL ONE (08:44)
[2019-11-12] MEDS ORDERED: propofoL 200 MG/20 ML VIAL IV ONE (08:55)
[2019-11-12] MEDS ORDERED: LIDOCAINE 1% MPF 5 ML VIAL ONE (08:55)
[2019-11-12] MEDS ORDERED: FENTANYL CITR 100 MCG/2 ML ONE (08:55)
[2019-11-12] MEDS ORDERED: dexAMETHasone 10 MG/ML VIAL ONE (09:29)
[2019-11-12] MEDS ORDERED: KETOROLAC 30 MG/ML INJ ONE (09:29)
[2019-11-12] MEDS ORDERED: ONDANSETRON 4 MG/2 ML VIAL ONE (09:37)
[2019-11-12] MEDS ORDERED: NS 0.9% VIAL 10 ML ONE (09:38)
[2019-11-12] MEDS ORDERED: EPHEDRINE SULF 50 MG/ML VIAL ONE (09:38)
--- NOTE | 2019-11-12 10:28 | OP ---
Date of Procedure: 11/12/2019 Surgeon: Alberto Anthony MD [facility] Manager: LUZMARIA Rios Preoperative Diagnosis: Left posterior shoulder mass. Postoperative Diagnosis: Left posterior shoulder mass. Procedure: Wide excision, left posterior shoulder mass 3 x 4 cm with layered closure. Estimated Blood Loss: Minimal. Specimen: Lipoma findings as above. Anesthesia: General. Complications: None. Disposition: The patient tolerated the procedure in stable condition, taken to Recovery in good gene ral condition. Procedure In Detail: The patient was brought to the OR and placed in the supine position. General a nesthesia begun. The patient was placed in the right lateral position, prepped and draped in usual s terile fashion and then Marcaine 0.5% was infiltrated locally. Then, a 4 cm incision was made over t he middle of the mass, subcutaneous tissue divided and deep to the subcutaneous tissue, a large lipom a 3 x 4 cm excised, sent to Pathology as specimen. We went all the way down to the muscle layers. S ubcutaneous tissue irrigated, effluent clear. No evidence of bleeding noted and subsequently 2-0 chr omic was used for subcutaneous tissue and 3-0 nylon was used to close the skin. Sterile dressing was applied. The patient was awakened and taken to Recovery in good general condition. Discharge Note: The patient will go to Day Surgery and home when stable. Disposition: Home. Condition: Stable. Discharge Instructions: Resume home medications and diet. Activity as tolerated. No heavy lifting. Keep dressing clean and dry. Follow up in my office in 1 week. Call for appointment. Tylenol No. 3 one tablet p.o. q.4 p.r.n. pain. /MODL Voice ID: [id number] Report ID: [id number]
[2019-11-12 10:56] VITALS: BP 118/68; TEMP 96.3; O2SAT 95
== END 2019-11-12 10:51 | disposition home or self-care (01) ==
LOC: OR 07:49
PROVIDERS: ATTEND Surgery
PROC: 0JBF0ZZ Excision of Left Upper Arm Subcutaneous Tissue and Fascia, Open Approach (ICD-10-PCS; principal; 2019-11-12 09:00)
DX: D17.22 Benign lipomatous neoplasm of skin and subcutaneous tissue of left arm (principal); Z11.59 Encounter for screening for other viral diseases
CPT/HCPCS: 24071; 93005; 85025; 80048; 36415; 82947 ×2; 88304; 71046; U0002; J2704; J3010; J1100; J0690; J7030; J2405; 88305

== ENCOUNTER 2020-03-01 15:08 | Observation (INO) | payer OTHER ==
--- OUTSIDE RECORDS SUMMARY | 2020-03-01 15:30 | XMS REPORT | Clinical Summary ---
:1940 Author Organization [facility] Address [address] [place] [address] Care Team Providers Name Role Phone MD Neris Primary Care Provider Allergies No Known Active Allergies Medications Medication Sig Dispensed Refills Start End Status Date Date rasagiline (AZILECT) Take 1 mg by 0 Active 1 MG tablet mouth daily. metoprolol tartrate Take 25 mg by 0 Active (LOPRESSOR) 25 mg mouth daily. tablet carbidopa-levodopa Take 1 tablet 0 Active (SINEMET) 25-100 mg by mouth 3 per tablet (three) times a day. dexlansoprazole Take 60 mg by 0 Active (DEXILANT) 60 mg mouth 2 (two) capsule times a day. levothyroxine Take 50 mcg by 0 A ctive (SYNTHROID, LEVOXYL) mouth daily. 50 mcg tablet apixaban (ELIQUIS) Take by mouth 2 0 Active 2.5 mg tablet (two) times a day. cannabidiol, CBD, Take by mouth 2 0 Active extract 100 mg/mL (two) times a solution day. ipratropium-albuterol Take 3 mL by 0 Active (DUO-NEB) 0.5-2.5 nebulization 3 mg/3 mL nebulizer (three) times a day. fluticasone-umeclidin Inhale daily. 0 Active -vilanter (TRELEGY ELLIPTA) 100-62.5-25 mcg blister with device azithromycin Take 250 mg by 0 Ac tive (ZITHROMAX) 250 MG mouth daily. tablet metFORMIN Take 1,000 mg 0 Active (GLUCOPHAGE) 500 mg by mouth 2 tablet (two) times a day with meals. simvastatin (ZOCOR) Take by mouth. 0 Active 10 MG tablet spironolactone 25 mg = 1 tab, 0 03/07/20 Active (ALDACTONE) 25 MG PO, Daily, # 30 19 tablet tab, 3 Refill(s) mometasone-formoterol Dulera 200 0 Active (DULERA 200) 200-5 mcg-5 mcg/actuation inhaler mcg/actuation HFA aerosol inhaler fluticasone Inhale. 0 11/06/19 Active propion-salmeteroL 18 (Advair HFA) 230-21 mcg/actuation inhaler esomeprazole (NexIUM) Take by mouth. 0 Active 40 MG capsule ergocalciferol Take by mouth. 0 04/13/19 Active (VITAMIN D2) 50,000 17 unit capsule DULoxetine (Cymbalta) Take by mouth. 0 Active 30 MG capsule albuterol (ACCUNEB) Inhale. 0 06/01/19 Active 2.5 mg /3 mL (0.083 18 %) nebulizer solution acetaminophen Take by mouth 0 01/09/20 Ac tive (TYLENOL) 650 MG 8 hr every 4 (four) 17 tablet hours. tamsulosin (FLOMAX) Take by mouth. 0 Active 0.4 mg capsule pediatric multivit Take by mouth. 0 Active 61-D3-vit K (MVW Complete Formul Multivit) 1,500-800 unit-mcg capsule esomeprazole (NexIUM) Take by mouth. 0 08/31/19 Active 20 MG capsule 18 COQ10, UBIQUINOL, 200 mg, PO, 0 03/08/20 Active ORAL Daily, 0 19 Refill(s) tamsulosin (FLOMAX) Take 1 capsule 60 capsule 2 11/18/19 Active 0.4 mg capsule (0.4 mg total) 20 by mouth 2 (two) times a day. celecoxib (CeleBREX) Take 200 mg by 0 03/27 2/2 Discontinued 200 MG capsule mouth 2 (two) 020 times a day. tamsulosin (FLOMAX) Take 0.4 mg by 0 08/20 Discontinued 0.4 mg capsule mouth daily 020 (Re order) with dinner. pregabalin (LYRICA) Take 100 mg by 0 04/16 Discontinued 100 MG capsule mouth 2 (two) 020 times a day. simvastatin (ZOCOR) Take 40 mg by 0 Discontinued 40 MG tablet mouth nightly. 020 coenzyme Q10 (CO Take 200 mg by 0 Discontinued Q-10) 200 mg capsule mouth nightly. 020 (Duplicate order) bicalutamide Take 1 tablet 30 tablet 0 04/29/19 Exp ired (CASODEX) 50 mg chemo (50 mg total) 20 020 tablet by mouth daily for 29 days. phenazopyridine Take 1 tablet 90 tablet 0 07/31/19 (Pyridium) 200 MG (200 mg total) 20 020 tablet by mouth 3 (three) times a day for 30 days. HYDROcodone-acetamino Take 1 tablet 10 tablet 0 08/01/1907/24 phen (Wagner) 10-325 by mouth every 20 020 mg per 6 (six) hours tabletIndications: as needed for acute pain moderate pain for up to 7 days .acute pain. Max Daily Amount: 4 tablets tamsulosin (FLOMAX) Take 2 capsules 60 capsule 2 08/21/19 Discontinued 0.4 mg capsule (0.8 mg total) 20 020 (Duplicate by mouth daily order ) with dinner. methylPREDNISolone follow package 21 tablet 0 11/18/19 Discontinued (Medrol, Luis Miguel,) 4 mg directions 20 020 (Error) tablet Hospital, Clinic, or Other Ordered Dose Route Frequency Start Date End Date Status Facility Administered Medication cefTRIAXone (ROCEPHIN) 1 g IM once 02/18/2019 Active injection 1 gIndications: Elevated PSA leuprolide (LUPRON) depot 30 mg IM once 05/06/201901/2020 Ended injection 30 mg (RESTRICTED) LORAZepam (ATIVAN) 1 mg IV once 08/01/2019 08/01/2019 Ended injection 1 mg morPHINE 2 mg/mL injection 2 mg IV once 08/01/2019 Ended 2 mgIndications: acute pain morPHINE 2 mg/mL injection 2 mg IV once 08/01/2019 Ended 2 mgIndications: acute pain LORAZepam (ATIVAN) 1 mg IV once 08/01/2019 08/01/2019 Ended injection 1 mg leuprolide (LUPRON) depot 30 mg IM once 09/03/201901/2020 Ended injection 30 mg (RESTRICTED) leuprolide (ELIGARD) depot 30 mg subQ once 01/06/2020 Ended injection 30 mg (RESTRICTED) Active Problems Problem Noted Date Prostate cancer 03/20/2019 Cancer Staging: Clinical stage from 2019: Stage IIC (cT1c, cN0, cM0, PSA: 6.1, Grade Group: 4) - Signed by Jarrell Conklin MD on 05/27/2019 Encounters Date Type Specialty Care Team Description 01/13/2020 Hospital Encounter Jarrell Cameron cancer Oncology MD Chayo ([facility]) (Primary Dx) Leora Willson, SANDRA 01/13/2020 Travel 01/12/2020 Travel 01/12/2020 Telephone Jarrell Cameron MD 01/06/2020 Hospital Encounter Jarrell Cameron MD 01/06/2020 Orders Only Radiation Silas Zhong NP 01/06/2020 Travel 01/05/2020 Refill Jarrell Cameron MD 11/18/2019 - Hospital Encounter Radiation Jarrell Conklin cancer 11/19/2019 Oncology MD Chayo ([facility]) (Primary Dx) 11/18/2019 Hospital Encounter Jarrell Cameron cancer Oncology MD Chayo ([facility]) (Primary Dx) Leora Willson, SANDRA 11/18/2019 Hospital Encounter Jarrell Cameron MD 11/18/2019 Orders Only Radiation Silas Zhong NP 10/29/2019 Travel 10/23/2019 Office Visit Urology Keaton Vance Prostate can cer MD ([facility]) (Primary Dx) 10/23/2019 Travel 09/19/2019 Hospital Encounter Radiation Oncology 09/19/2019 Orders Only Oncology Provider, Unknown 09/19/2019 Orders Only Oncology Provider, Unknown 09/18/2019 Hospital Encounter Jarrell Cameron cancer Oncology MD Chayo ([facility]) (Primary Dx) Jennifer Tubbs RN 09/18/2019 Hospital Encounter Radiation Oncology 09/18/2019 Orders Only Oncology Provider, Unknown 09/18/2019 Travel 09/17/2019 Hospital Encounter Radiation Oncology 09/17/2019 Orders Only Oncology Provider, Unknown 09/16/2019 Hospital Encounter Radiation Oncology 09/16/2019 Orders Only Oncology Provider, Unknown 09/16/2019 Travel 09/15/2019 Hospital Encounter Radiation Oncology 09/15/2019 Orders Only Oncology Provider, Unknown 2019 Hospital Encounter Radiation Oncology 2019 Orders Only Oncology Provider, Unknown 09/11/2019 Hospital Encounter Radiation Jarrell Conklin cancer (HCC) (Primary Dx); Silas Domingo MD Cough; Jennifer Tubbs, Rib pain RN 09/11/2019 Hospital Encounter Radiation Oncology 09/11/2019 Travel 09/11/2019 Orders Only Oncology Provider, Unknown 09/10/2019 Hospital Encounter Radiation Oncology 09/10/2019 Orders Only Oncology Provider, Unknown 09/09/2019 Hospital Encounter Radiation Oncology 09/09/2019 Orders Only Oncology Provider, Unknown 09/08/2019 Hospital Encounter Radiation Oncology 09/08/2019 Orders Only Oncology Provider, Unknown 09/05/2019 Hospital Encounter Radiation Oncology 09/05/2019 Orders Only Oncology Provider, Unknown 09/04/2019 Hospital Encounter Radiation Jarrell Conklin cancer Oncology MD Chayo (HCC) (Primary Dx) Jade Jenkins RN 09/04/2019 Hospital Encounter Radiation Jarrell Conklin MD (HCC) (Primary Dx) Jade Jenkins RN 09/04/2019 Hospital Encounter Radiation Oncology 09/04/2019 Travel 09/04/2019 Orders Only Oncology Provider, Unknown 09/03/2019 Hospital Encounter Jarrell Cameron (Gato Domingo MD Error) 09/03/2019 Hospital Encounter Radiation Oncology 09/03/2019 Orders Only Jarrell Cameron MD 09/03/2019 Orders Only Oncology Provider, Unknown 09/03/2019 Travel 09/02/2019 Hospital Encounter Radiation Oncology 09/02/2019 Orders Only Oncology Provider, Unknown 09/01/2019 Hospital Encounter Radiation Oncology 09/01/2019 Travel 09/01/2019 Orders Only Oncology Provider, Unknown 08/29/2019 Orders Only Oncology Provider, Unknown 08/28/2019 Hospital Encounter Radiation Jarrell Conklin cancer Silas Domingo MD (HCC) (Primary Dx) Leora Willson RN 08/28/2019 Hospital Encounter Radiation Oncology 08/28/2019 Travel 08/28/2019 Orders Only Oncology Provider, Unknown 08/27/2019 Hospital Encounter Radiation Oncology 08/27/2019 Orders Only Oncology Provider, Unknown 08/26/2019 Hospital Encounter Radiation Oncology 08/26/2019 Orders Only Oncology Provider, Unknown 08/25/2019 Hospital Encounter Radiation Oncology 08/25/2019 - Hospital Encounter Jarrell Cameron 08/26/2019 Silas Domingo MD 08/25/2019 Orders Only Oncology Provider, Unknown 08/22/2019 Hospital Encounter Radiation Oncology 08/22/2019 Orders Only Oncology Provider, Unknown 08/21/2019 Hospital Encounter Jarrell Cameron cancer Silas Domingo MD ([facility]) Jhoana Waldron 08/21/2019 Hospital Encounter Radiation Oncology 08/21/2019 Travel 08/20/2019 Hospital Encounter Jarrell Cameron MD 08/19/2019 Travel 08/12/2019 Hospital Encounter Jarrell Cameron MD 08/12/2019 Documentation Radiation Glynn, Vital Signs (V ital Silas Franklin RN signs taken by radiation therilia henley before CT simulation.) 08/11/2019 Travel 08/11/2019 Telephone Radiation Jarrell Conklin MD 08/01/2019 Hospital Encounter Jarrell Cameron cancer Silas Domingo MD ([facility]) (Primary Dx) Noemi Maki RN 08/01/2019 Hospital Encounter Radiation Oncology 08/01/2019 Hospital Encounter Jarrell Cameron MD 08/01/2019 Hospital Encounter Radiation Jarrell Conklin cancer Silas Domingo MD ([facility]) (Primary Dx) Noemi Maki RN 08/01/2019 Anesthesia Event Urology Anh Paez MD Jatzlau, Amybeth, APRN 08/01/2019 Surgery Urology Jarrell Conklin PRO STATE M., MD INTERSTITIAL NE EDLE (HDR) 08/01/2019 Hospital Encounter Urology Jarrell Conklin MD 08/01/2019 Orders Only Oncology Provider, Unknown 07/30/2019 Hospital Encounter Jarrell Cameron MD 07/28/2019 Orders Only Radiation Silas Maki RN 07/28/2019 Telephone Radiation Silas Maki RN 07/24/2019 Pre-Admit Testing Pre-Admission Jarrell Conklin Preop t esting (Primary Dx); Appointment Testing MD Chayo Prostate cancer ([facility]) 07/24/2019 Orders Only Radiation Glynn, Prostate cancer Oncology SANDRA Franklin ([facility]) (Primary Dx) 07/23/2019 Travel 07/23/2019 Orders Only Radiation Trevin, Prostate cancer Oncology Regina Brown NP ([facility]) (Prima ry Dx) 06/27/2019 Telephone Radiation Jade Jenkins insurance office manager 06/18/2019 Hospital Encounter Radiation Jarrell Conklin MD 06/18/2019 Travel 06/13/2019 Travel 06/13/2019 Telephone Radiation Jarrell Conklin MD 06/12/2019 Travel 05/06/2019 Hospital Encounter Radiation Jarrell Conklin MD Rosacina, Merlessa, RN 04/29/2019 Hospital Encounter Radiation Jarrell Conklin e cancer Oncology MD Chayo ([facility]) (Primary Dx) Jade Jenkins RN 04/29/2019 Hospital Encounter Radiation Jarrell Conklin MD 04/29/2019 Office Visit Urology Lester Prostate jacob Galan MD ([facility]) (Primary Dx) 04/29/2019 Telephone Urology Adama Batista MD 04/23/2019 Telephone Urology Adama Batista MD 04/21/2019 Hospital Encounter Radiology Lester, Preop te gianni Galan MD 04/21/2019 Pre-Admit Testing Pre-Admission Satkmariamam, Pre-op t esting Appointment Testing MD Adama (Primary Dx) 04/21/2019 Transcribe Orders Access Satkunasivam, Preop shital maykel Galan MD (Primary Dx) 04/14/2019 Telephone Urology Adama Batista MD 04/03/2019 Office Visit Urology Keaton Vance Prostate can cer MD ([facility]) (Primary Dx) 03/25/2019 Hospital Encounter Radiology Keaton Vance MD 03/25/2019 Hospital Encounter Radiology Keaton Vance Prosta te pedrito VASQUEZ ([facility]) 03/25/2019 Hospital Encounter Radiology Keaton Vance Prosta te cancer ([facility]) 03/20/2019 Office Visit Urology Bolivar, Keaton, Prostate can cer (HCC) (Primary Dx) 03/06/2019 Ancillary Procedure Urology Keaton Vance MD 03/06/2019 Office Visit Urology Keaton Vance Elevated PSA (Primary Dx) 03/06/2019 Telephone Keaton Rand MD 03/03/2019 Telephone Urology Keaton Vance MD after 03/01/2019 Surgical History Surgery Date Site/Laterality Comments SHOULDER SURGERY Bilateral reverse shoulde r replacement 2016 and 2017 BACK SURGERY lower back x 3 l ast 2016 GREAT TOE ARTHRODESIS, 03/26/2013 - Left INTERPHALANGEAL JOINT 03/25/2014 EYE SURGERY 03/26/2018 - Bilateral cataract extract ion 03/25/2019 COLONOSCOPY 03/26/2002 - 03/25/2003 UPPER GASTROINTESTINAL 03/26/2018 - ENDOSCOPY 03/25/2019 COLON SURGERY Colon resection -2002 PLACEMENT,PROSTATE 08/01/2019 N/A Procedure: INTERSTITIAL NEEDLE PLACEMENT,HI OSTATE INTERSTITIAL NEE DLE (HDR); Surgeon: Jarrell Conklin MD; Location: [facility]; Service: Radiation Oncolo gy; Laterality: N/A; Medical History Medical History Date Comments Cancer (HCC) prostate A-fib (HCC) Hypertension Disease of thyroid gland Hyperlipidemia Stroke (HCC) 2016 w/ last back sx - st ill weakness to R side u pper and lower Anesthesia nhap/nfhap - all georgie th secure -two upper pe rm bridges COPD (chronic obstructive pulmonary on n ebs disease) (HCC) Sleep apnea Arrhythmia afib - on elequis - monitored by Dr. Patsy fitzgerald BPH (benign prostatic hyperplasia) SOB (shortness of breath) with movement Hypothyroidism Dental bridge present Parkinson's disease (HCC) GERD (gastroesophageal reflux disease) CPAP (continuous positive airway pressure) dependence Use of cane as ambulatory aid Wears glasses reading Hypercholesteremia Coronary artery disease Asthma Benign prostatic hyperplasia Diabetes mellitus (HCC) History of recent steroid use Last used in 2018 Lower back pain 3 back surgeried. Last one on Mar 25, 2017 Dental crown present Several Family History Relation Name Status Comments Father Mother Social History Tobacco Use Types Packs/Day Years Used Date Heavy Tobacco Smoker Cigarettes 3 14 956 - 1970 Smokeless Tobacco: Never Used Alcohol Use Drinks/Week oz/Week Comments Not Currently 0 Glasses of wine 0.0 Used to drink occasionally 0 Cans of beer 0 Shots of liquor 0 Standard drinks or equivalent Sex Assigned at Date Recorded Male 04/25/2019 10:19 AM [employer] Last Filed Vital Signs Vital Sign Reading Time Taken Comments Blood Pressure 137/91 09/18/2019 8:26 AM CDT Pulse 72 09/18/2019 8:26 AM CDT Temperature 36.3 C (97.4 F) 09/18/2019 8:26 AM CDT Respiratory Rate 20 09/18/2019 8:26 AM CDT Oxygen Saturation 96% 09/18/2019 8:26 AM CDT Inhaled Oxygen Concentration - - Weight 93.5 kg (206 lb 3.2 oz) 09/18/2019 8:26 AM CDT Height 172.7 cm (5' 8") 08/28/2019 9:40 AM CDT Body Mass Index 31.35 08/28/2019 9:40 AM CDT Plan of Treatment Date Type Specialty Care Team Description 03/10/2020 Office Visit Urology Keaton Vance MD [address] [facility] [address] [place], [place] [address] [phone] Health Maintenance Due Date Last Done Comments SHINGLES VACCINES (#1) 1992 65+ PNEUMOCOCCAL VACCINE (2 of 2 - PPSV23) 09/13/200705/07, 03/01/2017 INFLUENZA VACCINE 10/25/2019 12/03/2017 Procedures Procedure Name Priority Date/Time Associated Comments Diagnosis TESTOSTERONE LEVEL, Routine 10/23/2019 11:01 Prostate cancer R esults for this FREE AND TOTAL, MALE AM CDT (HCC) procedu re are in the results section. PSA, ULTRASENSITIVE Routine 10/23/2019 11:01 Prostate cancer R esults for this AM CDT (HCC) procedure are i n the results section. RAD ONC COURSE SUMMARY Routine 10/21/2019 7:50 R esults for this AM CDT procedure are i n the results section. RAD ONC DAILY TREATMENT Routine 09/19/2019 8:41 Results for this AM CDT procedure are i n the results section. RAD ONC DAILY TREATMENT Routine 09/18/2019 7:49 Results for this AM CDT procedure are i n the results section. RAD ONC DAILY TREATMENT Routine 09/17/2019 8:24 Results for this AM CDT procedure are i n the results section. CT CHEST WO CONTRAST Routine 09/16/2019 1:37 Prostate cancer Results for this PM CDT (HCC) procedure are in Cough the results Rib pain section. RAD ONC DAILY TREATMENT Routine 09/16/2019 8:28 Results for this AM CDT procedure are i n the results section. RAD ONC DAILY TREATMENT Routine 09/15/2019 8:37 Results for this AM CDT procedure are i n the results section. RAD ONC DAILY TREATMENT Routine 2019 8:32 Results for this AM CDT procedure are i n the results section. RAD ONC DAILY TREATMENT Routine 09/11/2019 8:35 Results for this AM CDT procedure are i n the results section. RAD ONC DAILY TREATMENT Routine 09/10/2019 8:31 Results for this AM CDT procedure are i n the results section. RAD ONC DAILY TREATMENT Routine 09/09/2019 8:35 Results for this AM CDT procedure are i n the results section. RAD ONC DAILY TREATMENT Routine 09/08/2019 8:34 Results for this AM CDT procedure are i n the results section. RAD ONC DAILY TREATMENT Routine 09/05/2019 8:35 Results for this AM CDT procedure are i n the results section. RAD ONC DAILY TREATMENT Routine 09/04/2019 8:43 Results for this AM CDT procedure are i n the results section. RAD ONC DAILY TREATMENT Routine 09/03/2019 8:33 Results for this AM CDT procedure are i n the results section. RAD ONC DAILY TREATMENT Routine 09/02/2019 8:35 Results for this AM CDT procedure are i n the results section. RAD ONC DAILY TREATMENT Routine 09/01/2019 8:34 Results for this AM CDT procedure are i n the results section. RAD ONC DAILY TREATMENT Routine 08/29/2019 8:58 Results for this AM CDT procedure are i n the results section. RAD ONC DAILY TREATMENT Routine 08/28/2019 8:55 Results for this AM CDT procedure are i n the results section. RAD ONC DAILY TREATMENT Routine 08/27/2019 8:35 Results for this AM CDT procedure are i n the results section. RAD ONC DAILY TREATMENT Routine 08/26/2019 12:15 Results for this PM CDT procedure are i n the results section. RAD ONC DAILY TREATMENT Routine 08/25/2019 10:11 Results for this AM CDT procedure are i n the results section. RAD ONC DAILY TREATMENT Routine 08/22/2019 8:36 Results for this AM CDT procedure are i n the results section. RAD ONC DAILY TREATMENT Routine 08/01/2019 3:08 Results for this PM CDT procedure are i n the results section. POC GLUCOSE Routine 08/01/2019 10:51 Results for this AM CDT procedure are i n the results section. FL > 1 HOUR Routine 08/01/2019 10:00 Results for this AM CDT procedure are i n the results section. HI AN ELECTIVE Routine 08/01/2019 8:17 Results f or this ENDOTRACHEAL AIRWAY AM CDT procedur e are in the results section. PLACEMENT,PROSTATE 08/01/2019 8:04 Malignant neoplasm INTERSTITIAL NEEDLE AM CDT of prostate (HCC) (HDR) Case Notes CASE WAS APPROVED BY TUMOR B OARD MATILDA Special Needs LUNA NETTA RADIATION PRECAU TIONS POSS EXTENDED STAY TRANSRECTAL U/S POTASSIUM LEVEL STAT 08/01/2019 6:44 AM Resul ts for this CDT procedure are i n the results section. TYPE AND SCREEN STAT 08/01/2019 6:35 AM Resul ts for this CDT procedure are i n the results section. POC GLUCOSE Routine 08/01/2019 6:08 AM Results for this CDT procedure are i n the results section. URINE CULTURE Routine 07/24/2019 11:55 AM Results for this CDT procedure are i n the results section. TESTOSTERONE Routine 07/24/2019 11:51 AM Prostate cancer Resul ts for this CDT (HCC) procedure are i n the results section. PSA, ULTRASENSITIVE Routine 07/24/2019 11:51 AM Prostate cance r Results for this CDT (HCC) procedure are i n the results section. COVID-19 QUALITATIVE Routine 07/24/2019 11:50 AM Prostate canc er Results for this PCR CDT (HCC) procedure are i n the results section. ESTIMATED GFR Routine 07/24/2019 11:49 AM Results for this CDT procedure are i n the results section. HC COMPLETE BLD COUNT Routine 07/24/2019 11:49 AM Preop testin g Results for this W/AUTO DIFF CDT procedure are i n the results section. BASIC METABOLIC PANEL Routine 07/24/2019 11:49 AM Preop testin g Results for this CDT procedure are i n the results section. URINALYSIS SCREEN AND Routine 07/24/2019 11:48 AM Preop testin g Results for this MICROSCOPY, WITH REFLEX CDT proc edure are in TO CULTURE the results section. XR CHEST 2 VW Routine 04/21/2019 11:46 AM Preop testing Result s for this [employer] procedure are i n the results section. URINE CULTURE Routine 04/21/2019 10:55 AM Results for this [employer] procedure are i n the results section. ECG PRE/POST OP Routine 04/21/2019 10:47 AM Pre-op testing Res ults for this [employer] procedure are i n the results section. ESTIMATED GFR Routine 04/21/2019 10:20 AM Results for this [employer] procedure are i n the results section. URINALYSIS SCREEN AND Routine 04/21/2019 10:20 AM Pre-op testi ng Results for this MICROSCOPY, WITH REFLEX [employer] proc edure are in TO CULTURE the results section. TYPE AND SCREEN Routine 04/21/2019 10:20 AM Pre-op testing Res ults for this [employer] procedure are i n the results section. HEPATITIS C ANTIBODY Routine 04/21/2019 10:20 AM Pre-op testin g Results for this [employer] procedure are i n the results section. PROTHROMBIN TIME WITH Routine 04/21/2019 10:20 AM Pre-op testi ng Results for this INR [employer] procedure are i n the results section. PARTIAL THROMBOPLASTIN Routine 04/21/2019 10:20 AM Pre-op test ing Results for this TIME (PTT) [employer] procedure are i n the results section. COMPREHENSIVE METABOLIC Routine 04/21/2019 10:20 AM Pre-op shital ting Results for this PANEL [employer] procedure are i n the results section. HC COMPLETE BLD COUNT Routine 04/21/2019 10:20 AM Pre-op testi ng Results for this W/AUTO DIFF [employer] procedure are i n the results section. NM BONE SCAN WHOLE BODY Routine 03/25/2019 11:44 AM Prostate c ancer Results for this [employer] (HCC) procedure are i n the results section. CT ABDOMEN WWO CONTRAST Routine 03/25/2019 10:24 AM Prostate c ancer Results for this PELVIS W CONTRAST [employer] (HCC) procedure are in the results section. ESTIMATED GFR Routine 03/25/2019 8:40 AM Results for this [employer] procedure are i n the results section. POC CREATININE Routine 03/25/2019 8:40 AM Result s for this [employer] procedure are i n the results section. US PROSTATE BIOPSY Routine 03/06/2019 10:31 AM Elevated PSA Re sults for this [employer] procedure are i n the results section. POC URINALYSIS DIPSTICK Routine 03/06/2019 10:27 AM Elevated P SA Results for this [employer] procedure are i n the results section. after 03/01/2019 Results PSA, ultrasensitive (10/23/2019 11:01 AM CDT)Only the most recent of2 results within the time period is included. PSA, ultrasensitive <0.014 0.000 - 4.000 [facility] Comment: ng/mL Jassi ECLIA methodology. According to the [place] [employer], Seru m PSA should decrease and remain at undetectable levels after radic al prostatectomy. The AUA defines biochemical recurrence as an initial PSA value 0.200 ng/mL or greater followed by a subsequ ent confirmatory PSA value 0.200 ng/mL or greater. Values obtained with different assay methods or kits c annot be used interchangeably. Results cannot be interpreted as abso lute evidence of the presence or absence of malignant disease. Specimen Blood Narrative Performed At Performed at: [facility] [address] [place] [address] [id number] [employer]: Cristian Valdez MD, Phone: [phone] Performing Organization Address City/State/ZIP Code Phon e Number [facility] Testosterone level, free and total, male (10/23/2019 11:01 AM CDT) Pathologist [facility] Testosterone <3 (L) 264 - 916 [facility] Comment: ng/dL Adult male reference interval is based on a population of healthy nonobese males (BMI <30) between 19 and 39 yea rs old. Jean et.al. JCEM 2017,102;3986-9869. PMID: 492089 03. Testosterone, free <0.2 (L) 6.6 - 18.1 [facility] 02 pg/mL Specimen Blood Narrative Performed At [facility]formed at: [facility] [place], [place] [address] [id number] [employer]: Cristian Valdez MD, Phone: [phone] Performed at: [facility] [id number] [employer]: Wilson Regan MD, Phone: [phone] Performing Organization Address [facility] e Number [facility] 02 RAD ONC COURSE SUMMARY (10/21/2019 7:50 AM CDT) Pathologist Sig nature Course ID C1 ARIA Course Start Date 2019-08-01 @12:24 ARIA Treatment Elapsed Days 49 ARIA Course Intent Curative ARIA Treatment Dates Course End Date: 2019-10-21 @07:49 JIM A First Treatment Date: 2019-08-01 @14:51 Last Treatment Date: 2019-09-19 @08:39 Reference Point ID Pelvis ARIA Dosage Given to Date 46.74133915 ARIA in Gy Reference Point ID Prostate ARIA Dosage Given to Date 14.654038 ARIA in Gy Plan ID Pelvis ARIA Plan Name Pelvis ARIA Fractions Treated to 23 of 23 ARIA Date Prescribed Dose Per 2 ARIA Fraction in Gy Prescription Dose in 4,600 ARIA cGy Plan ID HDR Prostate ARIA Plan Name HDR Prostate ARIA Fractions Treated to 1 of 1 ARIA Date Prescribed Dose Per 15 ARIA Fraction in Gy Prescription Dose in 1,500 ARIA cGy Specimen Performing Organization Address [facility] e Number [facility] [address] [place] [address] RAD ONC DAILY TREATMENT (09/19/2019 8:41 AM CDT) Pathologist Sig nature Course ID C1 ARIA Course Start Date 2019-08-01 @12:24 ARIA Treatment Elapsed Days 49 ARIA Course Intent Curative ARIA Treatment Dates First Treatment Date: 2019-08-01 @14:51 ARIA Last Treatment Date: 2019-09-19 @08:39 Reference Point ID Pelvis ARIA Dosage Given to Date 46.17257688 ARIA in Gy Session Dosage Given 2.42202079 ARIA in Gy Plan ID Pelvis ARIA Plan Name Pelvis ARIA Fractions Treated to of 23 ARIA Date Prescribed Dose Per 2 ARIA Fraction in Gy Prescription Dose in 4,600 ARIA cGy Specimen Performing Organization Address [facility] Phon e Number ARIA [address] [place] [address] RAD ONC DAILY TREATMENT (09/18/2019 7:49 AM CDT) Pathologist Sig nature Course ID C1 ARIA Course Start Date 2019-08-01 @12:24 ARIA Treatment Elapsed Days 48 ARIA Course Intent Curative ARIA Treatment Dates First Treatment Date: 2019-08-01 @14:51 ARIA Last Treatment Date: 2019-09-18 @07:47 Reference Point ID Pelvis ARIA Dosage Given to Date 44.56893119 ARIA in Gy Session Dosage Given 2.08652740 ARIA in Gy Plan ID Pelvis ARIA Plan Name Pelvis ARIA Fractions Treated to 22 of 23 ARIA Date Prescribed Dose Per 2 ARIA Fraction in Gy Prescription Dose in 4,600 ARIA cGy Specimen Performing Organization Address [facility] Phon e Number [facility] [address] [place] [address] RAD ONC DAILY TREATMENT (09/17/2019 8:24 AM CDT) Pathologist Sig nature Course ID C1 ARIA Course Start Date 2019-08-01 @12:24 ARIA Treatment Elapsed Days 47 ARIA Course Intent Curative ARIA Treatment Dates First Treatment Date: 2019-08-01 @14:51 ARIA Last Treatment Date: 2019-09-17 @08:23 Reference Point ID Pelvis ARIA Dosage Given to Date 42.57868373 ARIA in Gy Session Dosage Given 2.84655472 ARIA in Gy Plan ID Pelvis ARIA Plan Name Pelvis ARIA Fractions Treated to of ARIA Date Prescribed Dose Per 2 ARIA Fraction in Gy Prescription Dose in 4,600 ARIA cGy Specimen Performing Organization Address [facility] Phon e Number [facility] [address] [place] [address] CT Chest Wo Contrast (09/16/2019 1:37 PM CDT) Specimen Narrative Performed At EXAMINATION: CT CHEST WO CONTRAST [facility] HISTORY: 79 years old Male. C61 Malignant neoplasm of prostate, R05 Cough, Cough right rib pain, prostate cancer. COMPARISON: Chest radiographs 04/21/2019 TECHNIQUE: Computed tomography of the chest was perfor med without IV contrast. CT images were acquired using low-dose techn ique with automated exposure control. FINDINGS: Lungs: Lungs are clear without consolidation, pleural effusion or pneumothorax. 4 mm calcified granuloma in the right lo wer lobe. No suspicious pulmonary nodules or masses. No fibrosis. Heart, vasculature: Cardiac size is normal. No pericar dial effusion. Caliber of the great vessels is normal. Atheroscleroti c calcification of the coronary arteries. Lymph nodes: No supraclavicular, axillary or mediastin al lymphadenopathy. Visualized Upper abdomen: Partially visualized noncont rast appearance of the liver demonstrates a 3.5 cm cyst in the left hemiliver. Musculoskeletal: No suspicious lytic or blastic osseou s lesions. Age appropriate degenerative changes of the spine. No flui d collections or masses in the visualized superficial soft tissues. No displaced rib fractures. Bilateral shoulder arthroplas ties. Fatty atrophy of the right subscapularis muscle. IMPRESSION: No CT evidence of acute intrathoracic pathology. Speci fically, no consolidation, pleural effusion, pneumothorax, fibrosi s or suspicious osseous lesions. [id number] Procedure Note Interface, Radiology Results Incoming - 09/16/2019 2:05 PM CDT EXAMINATION: CT CHEST WO CONTRAST HISTORY: 79 years old Male. C61 Malignan t neoplasm of prostate, R05 Cough, Cough right rib pain, prostate cancer. COMPARISON: Chest radiographs 04/21/2019 TECHNIQUE: Computed tomography of the est was performed without IV contrast. CT images were acquired using low-dose technique with automated exposure control. FINDINGS: Lungs: Lungs are clear without consolida tion, pleural effusion or pneumothorax. 4 mm calcified granuloma in the right lower lobe. No suspicious pulmonary nodules or masses. No fibrosis. Heart, vasculature: Cardiac size is norm al. No pericardial effusion. Caliber of the great vessels is normal. Atherosclerotic calcification of the coronary arteries. Lymph nodes: No supraclavicular, axillar y or mediastinal lymphadenopathy. Visualized Upper abdomen: Partially visu alized noncontrast appearance of the liver demonstrates a 3.5 cm cyst in the left hemiliver. Musculoskeletal: No suspicious lytic or blastic osseous lesions. Age appropriate degenerative changes of the spine. No fluid collections or masses in the visualized superficial soft tissues. No displaced rib fractures. Bilateral shoulder arthroplas ties. Fatty atrophy of the right subscapularis muscle. IMPRESSION: No CT evidence of acute intrathoracic pa thology. Specifically, no consolidation, pleural effusion, pneumothorax, fibrosis or suspicious osseous lesions. [id number] Performing Organization Address City/State/ZIP Code Phon e Number [facility] [address] [place] [address] RAD ONC DAILY TREATMENT (09/16/2019 8:28 AM CDT) Pathologist [facility] nature Course ID C1 ARIA Course Start Date 2019-08-01 @12:24 ARIA Treatment Elapsed Days 46 ARIA Course Intent Curative ARIA Treatment Dates First Treatment Date: 2019-08-01 @14:51 ARIA Last Treatment Date: 2019-09-16 @08:27 Reference Point ID Pelvis ARIA Dosage Given to Date 40.3274541 ARIA in Gy Session Dosage Given 2.61320847 ARIA in Gy Plan ID Pelvis ARIA Plan Name Pelvis ARIA Fractions Treated to ARIA Date Prescribed Dose Per 2 ARIA Fraction in Gy Prescription Dose in 4,600 ARIA cGy Specimen Performing Organization Address [facility] Phon e Number [facility] [address] [place] [address] RAD ONC DAILY TREATMENT (09/15/2019 8:37 AM CDT) Pathologist Sig nature Course ID C1 ARIA Course Start Date 2019-08-01 @12:24 ARIA Treatment Elapsed Days 45 ARIA Course Intent Curative ARIA Treatment Dates First Treatment Date: 2019-08-01 @14:51 ARIA Last Treatment Date: 2019-09-15 @08:35 Reference Point ID Pelvis ARIA Dosage Given to Date 38.60054673 ARIA in Gy Session Dosage Given 2.85183524 ARIA in Gy Plan ID Pelvis ARIA Plan Name Pelvis ARIA Fractions Treated to ARIA Date Prescribed Dose Per 2 ARIA Fraction in Gy Prescription Dose in 4,600 ARIA cGy Specimen Performing Organization Address [facility] Phon e Number ARI[facility] [address] [place] [address] RAD ONC DAILY TREATMENT (2019 8:32 AM CDT) Pathologist Sig nature Course ID C1 ARIA Course Start Date 2019-08-01 @12:24 ARIA Treatment Elapsed Days 42 ARIA Course Intent Curative ARIA Treatment Dates First Treatment Date: 2019-08-01 @14:51 ARIA Last Treatment Date: 2019 @08:31 Reference Point ID Pelvis ARIA Dosage Given to Date 36.49552701 ARIA in Gy Session Dosage Given 2.49505403 ARIA in Gy Plan ID Pelvis ARIA Plan Name Pelvis ARIA Fractions Treated to ARIA Date Prescribed Dose Per 2 ARIA Fraction in Gy Prescription Dose in 4,600 ARIA cGy Specimen Performing Organization Address [facility] Phon e Number [facility] [address] [place] [address] RAD ONC DAILY TREATMENT (09/11/2019 8:35 AM CDT) Pathologist Sig nature Course ID C1 ARIA Course Start Date 2019-08-01 @12:24 ARIA Treatment Elapsed Days 41 ARIA Course Intent Curative ARIA Treatment Dates First Treatment Date: 2019-08-01 @14:51 ARIA Last Treatment Date: 2019-09-11 @08:33 Reference Point ID Pelvis ARIA Dosage Given to Date 34.90954471 ARIA in Gy Session Dosage Given 2.84523723 ARIA in Gy Plan ID Pelvis ARIA Plan Name Pelvis ARIA Fractions Treated to 17 of 23 ARIA Date Prescribed Dose Per 2 ARIA Fraction in Gy Prescription Dose in 4,600 ARIA cGy Specimen Performing Organization Address [facility] Phon e Number [facility] [address] [place] [address] RAD ONC DAILY TREATMENT (09/10/2019 8:31 AM CDT) Pathologist Sig nature Course ID C1 ARIA Course Start Date 2019-08-01 @12:24 ARIA Treatment Elapsed Days 40 ARIA Course Intent Curative ARIA Treatment Dates First Treatment Date: 2019-08-01 @14:51 ARIA Last Treatment Date: 2019-09-10 @08:29 Reference Point ID Pelvis ARIA Dosage Given to Date 32.54337731 ARIA in Gy Session Dosage Given 2.55620980 ARIA in Gy Plan ID Pelvis ARIA Plan Name Pelvis ARIA Fractions Treated to 16 of ARIA Date Prescribed Dose Per 2 ARIA Fraction in Gy Prescription Dose in 4,600 ARIA cGy Specimen Performing Organization Address [facility] e Number [facility] [address] [place] [address] RAD ONC DAILY TREATMENT (09/09/2019 8:35 AM CDT) Pathologist Sig nature Course ID C1 ARIA Course Start Date 2019-08-01 @12:24 ARIA Treatment Elapsed Days 39 ARIA Course Intent Curative ARIA Treatment Dates First Treatment Date: 2019-08-01 @14:51 ARIA Last Treatment Date: 2019-09-09 @08:34 Reference Point ID Pelvis ARIA Dosage Given to Date 30.96024750 ARIA in Gy Session Dosage Given 2.11499557 ARIA in Gy Plan ID Pelvis ARIA Plan Name Pelvis ARIA Fractions Treated to 15 of 23 ARIA Date Prescribed Dose Per 2 ARIA Fraction in Gy Prescription Dose in 4,600 ARIA cGy Specimen Performing Organization Address [facility]/ZIP Code Phon e Number [facility] [address] [place] [address] RAD ONC DAILY TREATMENT (09/08/2019 8:34 AM CDT) Pathologist Sig nature Course ID C1 ARIA Course Start Date 2019-08-01 @12:24 ARIA Treatment Elapsed Days 38 ARIA Course Intent Curative ARIA Treatment Dates First Treatment Date: 2019-08-01 @14:51 ARIA Last Treatment Date: 2019-09-08 @08:33 Reference Point ID Pelvis ARIA Dosage Given to Date 28.27725707 ARIA in Gy Session Dosage Given 2.60118222 ARIA in Gy Plan ID Pelvis ARIA Plan Name Pelvis ARIA Fractions Treated to 14 of ARIA Date Prescribed Dose Per 2 ARIA Fraction in Gy Prescription Dose in 4,600 ARIA cGy Specimen Performing Organization Address [facility] e Number [facility] [address] [place] [address] RAD ONC DAILY TREATMENT (09/05/2019 8:35 AM CDT) Pathologist Sig nature Course ID C1 ARIA Course Start Date 2019-08-01 @12:24 ARIA Treatment Elapsed Days 35 ARIA Course Intent Curative ARIA Treatment Dates First Treatment Date: 2019-08-01 @14:51 ARIA Last Treatment Date: 2019-09-05 @08:33 Reference Point ID Pelvis ARIA Dosage Given to Date 26.12135507 ARIA in Gy Session Dosage Given 2.75041760 ARIA in Gy Plan ID Pelvis ARIA Plan Name Pelvis ARIA Fractions Treated to ARIA Date Prescribed Dose Per 2 ARIA Fraction in Gy Prescription Dose in 4,600 ARIA cGy Specimen Performing Organization Address [facility] e Number [facility] [address] [place] [address] RAD ONC DAILY TREATMENT (09/04/2019 8:43 AM CDT) Pathologist Sig nature Course ID C1 ARIA Course Start Date 2019-08-01 @12:24 ARIA Treatment Elapsed Days 34 ARIA Course Intent Curative ARIA Treatment Dates First Treatment Date: 2019-08-01 @14:51 ARIA Last Treatment Date: 2019-09-04 @08:42 Reference Point ID Pelvis ARIA Dosage Given to Date 24.35205964 ARIA in Gy Session Dosage Given 2.27362067 ARIA in Gy Plan ID Pelvis ARIA Plan Name Pelvis ARIA Fractions Treated to of ARIA Date Prescribed Dose Per 2 ARIA Fraction in Gy Prescription Dose in 4,600 ARIA cGy Specimen Performing Organization Address [facility] Phon e Number [facility] [address] [place] [address] RAD ONC DAILY TREATMENT (09/03/2019 8:33 AM CDT) Pathologist Sig nature Course ID C1 ARIA Course Start Date 2019-08-01 @12:24 ARIA Treatment Elapsed Days 33 ARIA Course Intent Curative ARIA Treatment Dates First Treatment Date: 2019-08-01 @14:51 ARIA Last Treatment Date: 2019-09-03 @08:31 Reference Point ID Pelvis ARIA Dosage Given to Date 22.30811812 ARIA in Gy Session Dosage Given 2.12406376 ARIA in Gy Plan ID Pelvis ARIA Plan Name Pelvis ARIA Fractions Treated to ARIA Date Prescribed Dose Per 2 ARIA Fraction in Gy Prescription Dose in 4,600 ARIA cGy Specimen Performing Organization Address [facility] Phon e Number [facility] [address] [place] [address] RAD ONC DAILY TREATMENT (09/02/2019 8:35 AM CDT) Pathologist Sig nature Course ID C1 ARIA Course Start Date 2019-08-01 @12:24 ARIA Treatment Elapsed Days 32 ARIA Course Intent Curative ARIA Treatment Dates First Treatment Date: 2019-08-01 @14:51 ARIA Last Treatment Date: 2019-09-02 @08:33 Reference Point ID Pelvis ARIA Dosage Given to Date 20.8191353 ARIA in Gy Session Dosage Given 2.19531094 ARIA in Gy Plan ID Pelvis ARIA Plan Name Pelvis ARIA Fractions Treated to ARIA Date Prescribed Dose Per 2 ARIA Fraction in Gy Prescription Dose in 4,600 ARIA cGy Specimen Performing Organization Address [facility] Phon e Number [facility] [address] [place] [address] RAD ONC DAILY TREATMENT (09/01/2019 8:34 AM CDT) Pathologist Sig nature Course ID C1 ARIA Course Start Date 2019-08-01 @12:24 ARIA Treatment Elapsed Days 31 ARIA Course Intent Curative ARIA Treatment Dates First Treatment Date: 2019-08-01 @14:51 ARIA Last Treatment Date: 2019-09-01 @08:32 Reference Point ID Pelvis ARIA Dosage Given to Date 18.31740290 ARIA in Gy Session Dosage Given 2.00077046 ARIA in Gy Plan ID Pelvis ARIA Plan Name Pelvis ARIA Fractions Treated to 9 of 23 ARIA Date Prescribed Dose Per 2 ARIA Fraction in Gy Prescription Dose in 4,600 ARIA cGy Specimen Performing Organization Address [facility] Phon e Number [facility] [address] [place] [address] RAD ONC DAILY TREATMENT (08/29/2019 8:58 AM CDT) Pathologist Sig nature Course ID C1 ARIA Course Start Date 2019-08-01 @12:24 ARIA Treatment Elapsed Days 28 ARIA Course Intent Curative ARIA Treatment Dates First Treatment Date: 2019-08-01 @14:51 ARIA Last Treatment Date: 2019-08-29 @08:56 Reference Point ID Pelvis ARIA Dosage Given to Date 16.57218331 ARIA in Gy Session Dosage Given 2.88407736 ARIA in Gy Plan ID Pelvis ARIA Plan Name Pelvis ARIA Fractions Treated to 8 of 23 ARIA Date Prescribed Dose Per 2 ARIA Fraction in Gy Prescription Dose in 4,600 ARIA cGy Specimen Performing Organization Address [facility] e Number [facility] [address] [place] [address] RAD ONC DAILY TREATMENT (08/28/2019 8:55 AM CDT) Pathologist Sig nature Course ID C1 ARIA Course Start Date 2019-08-01 @12:24 ARIA Treatment Elapsed Days 27 ARIA Course Intent Curative ARIA Treatment Dates First Treatment Date: 2019-08-01 @14:51 ARIA Last Treatment Date: 2019-08-28 @08:53 Reference Point ID Pelvis ARIA Dosage Given to Date 14.54083023 ARIA in Gy Session Dosage Given 2.05383236 ARIA in Gy Plan ID Pelvis ARIA Plan Name Pelvis ARIA Fractions Treated to 7 of 23 ARIA Date Prescribed Dose Per 2 ARIA Fraction in Gy Prescription Dose in 4,600 ARIA cGy Specimen Performing Organization Address [facility] Phon e Number [facility] [address] [place] [address] RAD ONC DAILY TREATMENT (08/27/2019 8:35 AM CDT) Pathologist Sig nature Course ID C1 ARIA Course Start Date 2019-08-01 @12:24 ARIA Treatment Elapsed Days 26 ARIA Course Intent Curative ARIA Treatment Dates First Treatment Date: 2019-08-01 @14:51 ARIA Last Treatment Date: 2019-08-27 @08:33 Reference Point ID Pelvis ARIA Dosage Given to Date 12.87729866 ARIA in Gy Session Dosage Given 2.42458371 ARIA in Gy Plan ID Pelvis ARIA Plan Name Pelvis ARIA Fractions Treated to 6 of 23 ARIA Date Prescribed Dose Per 2 ARIA Fraction in Gy Prescription Dose in 4,600 ARIA cGy Specimen Performing Organization Address [facility] e Number [facility] [address] [place] [address] RAD ONC DAILY TREATMENT (08/26/2019 12:15 PM CDT) Pathologist Sig nature Course ID C1 ARIA Course Start Date 2019-08-01 @12:24 ARIA Treatment Elapsed Days 25 ARIA Course Intent Curative ARIA Treatment Dates First Treatment Date: 2019-08-01 @14:51 ARIA Last Treatment Date: 2019-08-26 @12:14 Reference Point ID Pelvis ARIA Dosage Given to Date 10.23069184 ARIA in Gy Session Dosage Given 2.46459433 ARIA in Gy Plan ID Pelvis ARIA Plan Name Pelvis ARIA Fractions Treated to 5 of 23 ARIA Date Prescribed Dose Per 2 ARIA Fraction in Gy Prescription Dose in 4,600 ARIA cGy Specimen Performing Organization Address [facility] Phon e Number [facility] [address] [place] [address] RAD ONC DAILY TREATMENT (08/25/2019 10:11 AM CDT) Pathologist Sig nature Course ID C1 ARIA Course Start Date 2019-08-01 @12:24 ARIA Treatment Elapsed Days 24 ARIA Course Intent Curative ARIA Treatment Dates First Treatment Date: 2019-08-01 @14:51 ARIA Last Treatment Date: 2019-08-25 @10:09 Reference Point ID Pelvis ARIA Dosage Given to Date 8.47475465 ARIA in Gy Session Dosage Given 2.29000778 ARIA in Gy Plan ID Pelvis ARIA Plan Name Pelvis ARIA Fractions Treated to 4 of 23 ARIA Date Prescribed Dose Per 2 ARIA Fraction in Gy Prescription Dose in 4,600 ARIA cGy Specimen Performing Organization Address [facility] Phon e Number [facility] [address] [place] [address] RAD ONC DAILY TREATMENT (08/22/2019 8:36 AM CDT) Pathologist Sig nature Course ID C1 ARIA Course Start Date 2019-08-01 @12:24 ARIA Treatment Elapsed Days 21 ARIA Course Intent Curative ARIA Treatment Dates First Treatment Date: 2019-08-01 @14:51 ARIA Last Treatment Date: 2019-08-22 @08:33 Reference Point ID Pelvis ARIA Dosage Given to Date 6.41011661 ARIA in Gy Session Dosage Given 2.13524831 ARIA in Gy Plan ID Pelvis ARIA Plan Name Pelvis ARIA Fractions Treated to 3 of 23 ARIA Date Prescribed Dose Per 2 ARIA Fraction in Gy Prescription Dose in 4,600 ARIA cGy Specimen Performing Organization Address [facility] Phon e Number [facility] [address] [place] [address] RAD ONC DAILY TREATMENT (08/01/2019 3:08 PM CDT) Pathologist Sig nature Course ID C1 ARIA Course Start Date 2019-08-01 @12:24 ARIA Treatment Elapsed Days 0 ARIA Course Intent Curative ARIA Treatment Dates First Treatment Date: 2019-08-01 @14:51 ARIA Last Treatment Date: 2019-08-01 @14:59 Reference Point ID Prostate ARIA Dosage Given to Date 14.705620 ARIA in Gy Session Dosage Given 14.844627 ARIA in Gy Plan ID HDR Prostate ARIA Fractions Treated to 1 of 1 ARIA Date Prescribed Dose Per 15 ARIA Fraction in Gy Prescription Dose in 1,500 ARIA cGy Specimen Performing Organization Address City/[facility] Phon e Number [facility] [address] [place] [address] POC glucose (08/01/2019 10:51 AM CDT)Only the most recent of2 resultswithin the time period is included. Pathologist Sig nature POC glucose 118 (H) 65 - 99 mg/dL TANYA HERBERT Comment: HOSPITAL Glass Cutter Name: Maurice Hogan Device ID: [id number] Chartable: [facility] Notified RN Specimen Blood Performing Organization Address City/State/ZIP Code Phon e Number [facility] DEPARTMENT OF PATHOLOGY AND [address] [place] [phone] GENOMIC MEDICINE [address] [address] [place] > 1 Hour (08/01/2019 10:00 AM CDT) Specimen Narrative Performed At EXAMINATION: [place] > 1 HOUR HM [facility] LOCATION: MAIN OR #2 PROCEDURE: SEED IMPLANT START TIME: 0800 FINISH TIME: 1000 FLUORO TIME: 0 SEC DOSE: 0 IMPRESSION: Fluoroscopy was requested in the Endos[facility] py Suite. Separate endoscopy report will be issued by the physic corby performing the procedure. Procedure Note Hm Interface, Radiology Results Incoming - 08/13/2019 8:51 AM CDT EXAMINATION: [place] > 1 HOUR LOCATION: MAIN OR #2 PROCEDURE: SEED IMPLANT START TIME: 0800 FINISH TIME: 1000 FLUORO TIME: 0 SEC DOSE: 0 IMPRESSION: Fluoroscopy was requested in the Endosco py Suite. Separate endoscopy report will be issued by the physician performing the procedure. Performing Organization Address City/[facility]/ZIP Code Phon e Number [facility] [address] [place] [address] Airway (08/01/2019 8:17 AM CDT) Narrative Performed At Tsering Chung 08/01/2019 8:18 AM Airway Performed by: Tsering Chung Authorized by: Anh Paez MD Location: OR Urgency: Elective Difficult Airway: No Performed by: resident/FIELD REPORTER/AA Preoxygenated with 100% O2: Yes Mask Ventilation: Not attempted Final Airway Type: Endotracheal airway Final Endotracheal Airway: ETT Cuffed: Yes Technique Used: Direct laryngoscopy Insertion Site: Oral Blade Type: Shaikh Laryngoscope Blade/Videolaryngoscope Ocdy daron Size: 2 ETT Size (mm): 8.0 Cuff at minimum occlusion pressure: Yes Measured from: Lips ETT to Lips (cm): 22 Placement Verified by: CO2 detection, di rect visualization and equal breath sounds Laryngoscopic view: Grade I - full vie w of glottis Modified RSI: Yes Number of Attempts at Approach: 1 Potassium level (08/01/2019 6:44 AM CDT) Pathologist Sig nature Potassium 4.0 3.5 - 5.0 mEq/L [facility] Specimen Blood Performing Organization Address City/State/ZIP Code Phon e Number [facility] DEPARTMENT OF PATHOLOGY AND [address] [place] [phone] GENOM[address] [address] Type and screen (08/01/2019 6:35 AM CDT)Only the most recent of2 resultswithin the time period is included. Pathologist Sig nature ABO grouping B [facility] Rh type POS [facility] Antibody screen (gel) NEG [facility] Specimen Blood Performing Organization Address [facility] Phon e Number [facility] DEPARTMENT OF PATHOLOGY AND [address] [place] [address] 0 [place] [address] Urine culture (07/24/2019 11:55 AM CDT)Only the most recent of2 resultswithin the time period is included. Pathologist Sig nature Urine culture SEE COMMENTComment: [facility] Bacteriuria screen HOSPITAL negative. Specimen Performing Organization Address City/[facility] Phon e Number [facility] DEPARTMENT OF PATHOLOGY AND [address] [place] [address] 0 [place] [address] Testosterone (07/24/2019 11:51 AM CDT) Pathologist Sig nature Testosterone <10 (L) 193 - 740 ng/dL [facility] L Specimen Blood Performing Organization Address City/[facility] Phon e Number [facility] DEPARTMENT OF PATHOLOGY AND [address] [place] [address] 0 [place] [address] COVID-19 qualitative PCR (07/24/2019 11:50 AM CDT) Interpretation Negative results do not prec lude 2019-nCoV infection and should not be used as the sole basis for treatment or other patient management decisions. Negative results must be combined with clinical observations, patient history, and epidemiological MARTÍNEZ information. [facility] COVID-19 qualitative Not-Detected Not-Detecte DICKENS PCR result d [facility] COVID-19 qualitative See link below for DICKENS PCR PDF Lab [facility] ReportComment: Case HOSPITAL Number: [id number] Specimen Nasopharyngeal Performing Organization Address [facility] Phon e Number [facility] DEPARTMENT OF PATHOLOGY AND [address] [place] [address] Estimated GFR (07/24/2019 11:49 AM CDT)Only the most recent of3 resultswithin the time period is included. Estimated GFR 66 mL/min/1.73 [facility] Comment: m2 HOSPITAL Catergory Units Interpretation G1 >=90 Normal or high G2 60-89 Mildly decreased G3a 45-59 Mildly to moderately decreas ed G3b 30-44 Moderately to severely decre ased G4 15-29 Severely decreased G5 <15 Kidney failure The eGFR was calculated using the Chronic Kidney Disea se Epidemiology Collaboration (CKD-EPI) equation. Interpretation is based on recommendations of the National Kidney Foundation-Kidney Disease Outcomes Dioni lity Initiative (NKF-KDOQI) published in 2014. Specimen Performing Organization Address City/State/ZIP Code Phon e Number [facility] DEPARTMENT OF PATHOLOGY AND [address] [place], [place] [address] GENOMIC MEDICINE [facility] [address] [place] [address] CBC with platelet and differential (07/24/2019 11:49 AM CDT)Only the most recent of2 resultswithin the time period is included. Pathologist [facility] WBC 10.93 4.50 - 11.00 [facility] k/uL HOSPITAL RBC 5.40 4.40 - 6.00 [facility] HGB 15.4 14.0 - 18.0 [facility] g/dL [facility] HCT 48.1 41.0 - 51.0 % [facility] MCV 89.1 82.0 - 100.0 [facility] MCH 28.5 27.0 - 34.0 pg [facility] MCHC 32.0 31.0 - 37.0 [facility] g/dL [facility] RDW - SD 46.2 37.0 - 55.0 [facility] MPV 8.4 (L) 8.8 - 13.2 [facility] Platelet count 284 150 - 400 k/uL [facility] Nucleated RBC 0.00 /100 WBC [facility] Neutrophils 64.1 39.0 - 69.0 % [facility] Lymphocytes 28.8 25.0 - 45.0 % [facility] Monocytes 5.3 0.0 - 10.0 % [facility] Eosinophils 0.5 0.0 - 5.0 % [facility] Basophils 0.6 0.0 - 1.0 % [facility] Immature granulocytes 0.7Comment: 0.0 - 1.0 % [facility] "Immature HOSPITAL granulocytes" (promyelocytes , myelocytes, metamyelocytes ) Specimen Blood Performing Organization Address City/[facility] Phon e Number [facility] DEPARTMENT OF PATHOLOGY AND [address] [place] [address] [phone] [address] Basic metabolic panel (07/24/2019 11:49 AM CDT) Pathologist Sig nature Sodium 141 135 - 148 mEq/L [facility] Potassium 5.3 (H) 3.5 - 5.0 mEq/L [facility] Chloride 99 98 - 112 mEq/L [facility] CO2 28 24 - 31 mEq/L [facility] Anion gap 14@ANIO 7 - 15 mEq/L [facility] BUN 26 (H) 8 - 23 mg/dL [facility] Creatinine 1.08 0.70 - 1.20 mg/dL [facility] Glucose 121 (H) 65 - 99 mg/dL [facility] Calcium 10.5 (H) 8.8 - 10.2 mg/dL [facility] Specimen Blood Performing Organization Address City/[facility] Phon e Number [facility] DEPARTMENT OF PATHOLOGY AND [address] [place] [address] [phone] [address] Urinalysis screen and microscopy, with reflex to culture (07/24/2019 11:48 AM CDT)Only the most recent of2 resultswithin the time period is included. Pathologist Sig nature Specimen site Clean catch [facility] Color, UA Yellow [facility] Appearance, UA Clear [facility] Specific gravity, 1.017 1.001 - 1.035 [facility] pH, UA 6.0 5.0 - 8.5 [facility] Protein, UA Negative Negative [facility] Glucose, UA Negative Negative [facility] Ketones, UA Negative Negative [facility] Bilirubin, UA Negative Negative [facility] Blood, UA Negative Negative [facility] Nitrite, UA Negative Negative [facility] Urobilinogen, UA <2.0 <2.0 [facility] Leukocyte esterase, Negative Negative [facility] WBC, UA <1 0 - 1 /HPF [facility] RBC, UA 3 0 - 5 /HPF [facility] Bacteria, UA None seen None seen [facility] Yeast, UA None seen [facility] Yeast with None seen [facility] pseudohyphae, UA [facility] Specimen Urine Performing Organization Address City/State/ZIP Code Phon e Number [facility] DEPARTMENT OF PATHOLOGY AND [address], [place] [address] GENOMIC MEDICINE [facility] [address] [place] [address] XR Chest 2 Vw (04/21/2019 11:46 AM [employer] [employer] [employer]) Specimen Narrative Performed At EXAMINATION: XR CHEST 2 VW [facility] CLINICAL HISTORY: Z01.818 Encounter for other prepro cedural examination, PREOP COMPARISON: None IMPRESSION: Lines: None Lungs and pleura: No consolidations. No pleural effusi on or pneumothorax. Heart and mediastinum: Normal appearance of cardiomedi astinal silhouette. Bones: No suspicious osseous lesions. Bilateral should er prosthesis, partially visualized. Multilevel thoraci c spondylosis. [facility]-[id number] Procedure Note Interface, Radiology Results Incoming - 04/21/2019 11:57 AM [employer] [employer] [employer] EXAMINATION: XR CHEST 2 VW CLINICAL HISTORY: Z01.818 Encounter for other preprocedural examination, PREOP COMPARISON: None IMPRESSION: Lines: None Lungs and pleura: No consolidations. No pleural effusion or pneumothorax. Heart and mediastinum: Normal appearance of cardiomediastinal silhouette. Bones: No suspicious osseous lesions. Bi lateral shoulder prosthesis, partially visualized. Multilevel thoracic spondylosis. [facility]-[id number] Performing Organization Address City/[facility]/ZIP Code Phon e Number [facility] [address] [place] [address] ECG Pre/Post Op (04/21/2019 10:47 AM [employer]) Pathologist Sig nature Ventricular rate 82 [facility] Atrial rate 82 [facility] HI interval 158 [facility] QRSD interval 88 [facility] QT interval 380 [facility] QTC interval 443 [facility] P axis 1 -36 [facility] QRS axis 1 -46 [facility] T wave axis 30 [facility] EKG impression Unusual P axis, [facility] possible ectopic atrial rhythm with occasional premature ventricular complexes-Left axis deviation-Abnormal ECG-No previous ECGs available-Electronicall y Signed By Saurabh Ramachandran MD ([id number]) on 04/21/2019 9:23:21 PM Specimen Narrative Performed At This result has an attachment that is no t available. Performing Organization Address City/[facility] Phon e Number [facility] MUSE [address] [place] [phone] Hepatitis C antibody (04/21/2019 10:20 AM [employer]) Pathologist Sig nature Hepatitis C Ab Non-reactive Non-reactive [facility] Specimen Blood Performing Organization Address [facility]/ZIP [facility] Phon e Number [facility] DEPARTMENT OF PATHOLOGY AND [address] [place] [address] [phone] [address] Partial thromboplastin time, activated (04/21/2019 10:20 AM [employer] [employer] [employer]) PTT 27.5 23.0 - 36.0 [facility] Comment: [facility] PTT therapeutic range for unfractionated heparin is 61.0-112.0 seconds which corresponds to Anti-Xa 0.3-0.7 U/ml. Specimen Blood Performing Organization Address [facility] Phon e Number [facility] DEPARTMENT OF PATHOLOGY AND [address] [place] [address] [place] [address] Prothrombin time with INR (04/21/2019 10:20 AM [employer] [employer]) Prothrombin time 13.7 11.5 - 14.5 [facility] INR 1.0 [facility] Comment: [facility] International Normalized Ratio (INR) is a therapeu [facility] monitoring tool for patients who are stable on oral anticoagulant therapy. An INR of 2.0-3.0 is suggested for deep vein thrombosis/pulmonary embolism. Specimen Blood Performing Organization Address [facility] Phon e Number [facility] DEPARTMENT OF PATHOLOGY AND [address] [place] [address] Comprehensive metabolic panel (04/21/2019 10:20 AM [employer]) Sodium 139 135 - 148 [facility] mEq/L [facility] Potassium 4.9 3.5 - 5.0 [facility] mEq/L [facility] Chloride 98 98 - 112 mEq/L [facility] CO2 28 24 - 31 mEq/L [facility] Anion gap 13@ANIO 7 - 15 mEq/L [facility] BUN 16 8 - 23 mg/dL [facility] Creatinine 1.14 0.70 - 1.20 [facility] mg/dL [facility] Glucose 141 (H) 65 - 99 mg/dL [facility] Calcium 10.0 8.8 - 10.2 [facility] mg/dL [facility] Protein 7.4 6.3 - 8.3 g/dL [facility] Comment: HOSPITAL Mrmmkyc7067.6-7.0 g/dL 1 qaki8375.4-7.6 g/dL 7 months-2yizw365.1-7.3 g/dL 1-2 tibza975.6-7.5 g/dL >3 onnuy729.0-8.0 g/dL 18-5065617.3-8.3 g/dL Albumin 4.1 3.5 - 5.0 g/dL [facility] A/G ratio 1.2 0.7 - 3.8 [facility] Alkaline phosphatase 106 40 - 129 U/L [facility] AST 20 10 - 50 U/L [facility] ALT 18 5 - 50 U/L [facility] Total bilirubin 0.6 0.0 - 1.2 [facility] mg/dL [facility] Specimen Plasma specimen Performing Organization Address City/State/[facility] Code Phon e Number [facility] DEPARTMENT OF PATHOLOGY AND [address] [place] [phone] GENOMIC MEDICINE [address] [address] [place] Bone Scan Whole Body (03/25/2019 11:44 AM [employer]) Specimen Narrative Performed At PROCEDURE: NM BONE SCAN WHOLE BODY [facility] INDICATION: Prostate cancer. COMPARISON: CT scan of the abdomen and pelvis performed on same day. TECHNIQUE: Approximately three hours after the IV admi nistration of 25 mCi of Tc-99m labeled MDP, routine whole body planar b one scanning was performed in the anterior and posterior projections. FINDINGS: Degenerative and postoperative uptake in t he spine. No suspicious uptake. Postoperative changes in both dasia ulders. No suspicious uptake in the pelvis. IMPRESSION: 1. No scintigraphic evidence of osseou s metastatic disease. [facility]-[id number] Procedure Note Interface, Radiology Results Incoming - 03/25/2019 11:55 AM [employer] [employer] [employer] PROCEDURE: NM BONE SCAN WHOLE BODY INDICATION: Prostate cancer. COMPARISON: CT scan of the abdomen and pelvis performed on same day. TECHNIQUE: Approximately three hours aft er the IV administration of 25 mCi of Tc-99m labeled MDP, routine whole body planar bone scanning was performed in the anterior and posterior projections. FINDINGS: Degenerative and postoperativ e uptake in the spine. No suspicious uptake. Postoperative changes in both shoulders. No suspicious uptake in the pelvis. IMPRESSION: 1. No scintigraphic evidence of osseous metastatic disease. [facility]-[id number] Performing Organization Address City/State/ZIP Code Phon e Number [facility] [address] [place] [address] CT Abdomen WWO Contrast, Pelvis W Contrast (03/25/2019 10:24 AM [employer]) Specimen Narrative Performed At EXAMINATION: CT ABDOMEN WWO CONTRAST P BRITTANI W CONTRAST [facility] CLINICAL HISTORY: 78 yearsMale C61 Malignant neoplasm of prostate, pros ca staging TECHNIQUE: Helical CT of the abdomen and pelvis was obtained pre- and post administration of iodinated contrast. Sagittal and coronal computerized reformatted images were also obtained. CT imaging was performed with iterative reconstruction techniques and/or automated exposure control to re duce radiation dose. COMPARISON: None. IMPRESSION: Lower Chest: There is dependent atelecta sis at the lung bases. Abdomen: Liver: 3.3 cm left hepatic lobe cyst. Gallbladder/Biliary: Gallbladder is unremarkable. Th ere is no biliary dilatation. Spleen: Normal in size. Pancreas: Unremarkable. Adrenal Glands: Unremarkable. Kidneys: Unremarkable. Vascular: The abdominal aorta is normal in caliber. Nodes: No regional adenopathy. Bowel: Status post sigmoidectomy with patent rectosigm oid anastomosis. The bowel is unobstructed. There is scattered descendi ng colonic diverticulosis without acute diverticulitis. The appen noemi is normal in appearance. The bowel is unobstructed. Ascites/fluid collections: None. Pelvis: Lymphovascular: No pelvic adenopathy. Reproductive organs: 1.5 cm enhancing lesion in the ri ght peripheral zone of the prostate gland ascending from the base to the apex is compatible with primary tumor. Bladder: Unremarkable Other: None. Musculoskeletal: Degenerative and post s urgical change in the spine. SUMMARY: 1.No evidence of metastatic disease. [facility]-[id number] Procedure Note Interface, Radiology Results Incoming - 03/25/2019 12:02 PM [employer] [employer] EXAMINATION: CT ABDOMEN WWO CONTRAST PELVIS W CONTRAST CLINICAL HISTORY: 78 yearsMale C61 Malig nant neoplasm of prostate, pros ca staging TECHNIQUE: Helical CT of the abdomen a nd pelvis was obtained pre- and post administration of iodinated contrast. Sagittal and coronal computerized reformatted images were also obtained. CT imaging was performed with iterative reconstruction techniques and/or automated exposure control to re duce radiation dose. COMPARISON: None. IMPRESSION: Lower Chest: There is dependent atelecta sis at the lung bases. Abdomen: Liver: 3.3 cm left hepatic lobe cyst. Gallbladder/Biliary: Gallbladder is unre markable. There is no biliary dilatation. Spleen: Normal in size. Pancreas: Unremarkable. Adrenal Glands: Unremarkable. Kidneys: Unremarkable. Vascular: The abdominal aorta is normal in caliber. Nodes: No regional adenopathy. Bowel: Status post sigmoidectomy with pa tent rectosigmoid anastomosis. The bowel is unobstructed. There is scattered descending colonic diverticulosis without acute diverticulitis. The appendix is normal in appearance. The bowel is unobstructed. Ascites/fluid collections: None. Pelvis: Lymphovascular: No pelvic adenopathy. Reproductive organs: 1.5 cm enhancing le charles in the right peripheral zone of the prostate gland ascending from the base to the apex is compatible with primary tumor. Bladder: Unremarkable Other: None. Musculoskeletal: Degenerative and post s urgical change in the spine. SUMMARY: 1.No evidence of metastatic disease. [facility]-[id number] Performing Organization Address City/[facility]/ZIP Code Phon e Number [address] [address] POC creatinine (03/25/2019 8:40 AM [employer]ERSON [employer]) POC creatinine 1.1 0.7 - 1.2 [facility] Comment: mg/dl HOSPITAL Glass Cutter Name: Nate Kim Device ID: [id number] Specimen Blood Performing Organization Address City/[facility]/ZIP [facility] Phon e Number [facility] DEPARTMENT OF PATHOLOGY AND [address] [place] [phone] GENOMIC MEDICINE [address] [address] Prostate Biopsy (03/06/2019 10:31 AM [employer]) Specimen Narrative Performed At This result has an attachment that is no t available. Ultrasound guided Prostate Needle Biopsy [facility] Diagnosis: Elevated PSA Findings: Prostate echogenicity: Heterogenous Calcifications: Multiple small focal s Measurements: Whole Gland AP Diamter: 3.3 cm. Trasverse: 4.2 cm. Length 4.5 cm. Total Volume 33 mL. Nodule: none Ultrasound guided biopsies under local anesthesia: 12 Template Biopsies. 2 Additional Biopsies of ADAIR RT. : Comments: U/S guided prostate needle BX was performed by Dr. John vidal and procedure was tolerated very well. Total 14 cores were taken und er local anesthesia 2% lidocaine 5 cc on each side. Procedure Note Keaton Vance MD - 03/07/2019 7:59 AM [employer] [employer] [employer] Ultrasound guided Prostate Needle Biopsy Diagnosis: Elevated PSA Findings: Prostate echogenicity: Heterogenous Calcifications: Multiple sma ll focals Measurements: Whole Gland AP Diamter: 3.3 cm. Trasverse: 4.2 cm. Length 4.5 cm. Total Volume 33 mL. Nodule: none Ultrasound guided biopsies under local a nesthesia: 12 Template Biopsies. 2 Additional Biopsies of ADAIR RT. : Comments: U/S guided prostate needle BX was perfor med by Dr. Vance and procedure was tolerated very well. Total 14 cores were taken under local anesthesia 2% lidocaine 5 cc on each side. Performing Organization Address City/State/ZIP Code [facility] e Number HM [facility] [address] [place] [address] POC urinalysis dipstick (03/06/2019 10:27 AM [employer]ERSON [employer]) Pathologist Sig nature Color urine, POC Yellow Clarity urine, POC Clear Glucose urine, POC Negative Negative Bilirubin urine, POC Negative Negative Ketones urine, POC Negative Negative Specific gravity urine, 1.015 1.005 - 1.030 POC Blood urine, POC Negative Negative pH urine, POC 7.0 5.0, 5.5, 6.0, 6.5, 7.0, 7.5, 8.0, 8.5 Protein urine, POC Negative Negative Urobilinogen urine, POC <2.0 <2.0 Nitrite urine, POC Negative Negative Leukocyte esterase Negative Negative urine, POC Specimen Urine after 03/01/2019 Insurance Payer Benefit Plan / Subscriber ID Effective Dates Phone Addre ss Type Group HUMANA MEDICARE HU[employer] MEDICARE [id number] 2018-Present PPO PPO/PFFS/ERS [id number] Advance Directives For more information, please contact: [phone] Type Date Recorded 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
--- OUTSIDE RECORDS SUMMARY | 2020-03-01 15:38 | XMS REPORT | Continuity of Care Document ---
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 esophagitis City Primary 04/25/19 11/10/2018 2.16.840. 1. 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, unspecified 19 [place] K21.9 Active 04/11/19 19 [place] Dyspnea, 06/09/19 04/25/2018 OPID unspecified 18 [place] R06.00 - DYSPNEA, Active 06/01/19 OPID UNSPECIFIED 18 [place] Infection and 05/26/19 08/24/2017 Me morial inflammatory 18 [place] reaction due to other internal joint prosthesis, initial encounter Infection 05/15/19 08/13/2017 Yoni al following a 18 [place] procedure, initial encounter 13070, RIGHT Active 05/14/19 [place] SHOULDER INFECTED 18 [place] ty REVERSE S 88425- RIGHT Active 04/30/19 MH [place] SHOULDER SOFT 18 [facility] TISSUE INFECT Pain in right 04/19/19 07/20/2017 [facility] morial shoulder 18 [place] Other specified 04/18/19 07/20/2017 [facility] complication of 18 [facility] internal orthopedic prosthetic devices, implants and grafts, initial encounter SHOULDER PAIN Active 04/13/19 [facility] orial 18 [place] RIGHT SHOULDER Active 04/13/[address] [facility] TOTAL REVISION 18 [place] Anterior 03/18/20 03/21/2017 Jade roman dislocation of 17 right humerus, initial encounter RT SHOULDER PAIN Active 03/18/20 [facility] orial 17 [place] Encounter for 01/30/20 02/01/2017 [place] other specified 17 aftercare BLEEDING INCISION Active 01/30/20 Ok morial 17 Indra R06.00 Active 01/20/[address] [address]- RIGHT Active 01/10/20 [facility] SHOULDER 17 [facility] IRREPARABLE ROTATO DC F/U REQ BY CM Active 03/23/20 [facility] REVELYEN B 16 Cerebrovascular Resolved 02/24/20 Problem 11/24/2019 2 days [facility] accident 16 after back Medical (disorder) surgery Center,[facility],2 . 16.840.1.1 1 3883.3.615 . 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 16.840.1.1 1 3883.3.615 . 127, ARRON Burrell,[facility], [facility] GUALBERTO Cruz,[facility] Diverticulitis Resolved Problem 11/24/2019 [place] (disorder[facility],2 . 16.840.1.1 1 3883.3.615 . 127, [facility], GUALBERTO Burrell,[facility], [facility] RmC[place],[facility] Gastric reflux Active Problem 11/24/2019 [facility] (finding) [facility] [place],[facility],2 . .840.1.1 1 3883.3.615 . 127, [facility], GUALBERTO Burrell,[facility], [facility] [place],[facility] Hyperlipidemia Active Problem 11/24/2019 [facility] (disorder) Medical [place],[facility],2 . 840.1.1 1 3883.3615 . 127, [facility], GUALBERTO Burrell,[facility], [facility] Hypertensive Active Problem 11/24/2019 Ethan as disorder, systemic [facility], (disorder) [place], 2. 840.1.1 1 3883.3615 . 127, ARRON Burrell,[facility], [facility] Hypothyroidism Active Problem 11/24/2019 [facility] (disorder) [facility] [place],[facility],2 . 840.1.1 1 388.3615 . 127, [facility], GUALBERTO Burrell,[facility] Lumbar Active Problem 11/24/2019 [facility] radiculopathy Medica l (disorder) [place],[facility],2 .840.1.1 1 3883.3615 . 127, [facility], GUALBERTO Burrell,[facility], [facility] Benign prostatic Active Problem 11/24/2019 [facility] hyperplasia Medical (disorder) Center,[facility],2 . .840.1.1 1 3883.3615 . 127, [facility], GUALBERTO Burrell,[facility], [facility] [place],[facility] Parkinson's Active Problem 11/24/2019 [place] disease (disorder) [facility],2 . .840.1.1 1 3883.3615 . 127, ARRON Burrell,[facility], [facility] Sleep apnea Active Problem 11/24/[address] [facility], Nancy,2 . 16.840.1.1 1 3883.3.615 . 127, ARRON Brurell,[facility], M GUALBERTO Cruz,[facility] Hyperlipidemia, 08/13/2017 [facility] unspecified [facility] Hypothyroidism, 08/13/2017 [facility] unspecified City Chronic 08/13/2017 [facility] obstructive [facility] pulmonary disease, unspecified Essential 08/24/[address] [facility] al (primary) [facility] hypertension Obstructive sleep 07/20/2017 [facility] apnea (adult) [place] (pediatric) Personal history 08/24/2017 [facility] of nicotine [facility] dependence Acute 08/24/2017 Memori al posthemorrhagic [facility] anemia Other 08/24/2017 [facility] streptococcal [facility] arthritis, right shoulder Emphysema, 08/24/2017 Memor ial unspecified City Unspecified 08/24/2017 [facility] streptococcus as Cit y the cause of diseases classified elsewhere Obesity, 08/24/[address] [facility] al unspecified City Body mass index 08/24/2017 [facility] (BMI) 30.0-30.9, Cit y adult Primary 08/24/2017 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 840.1. tenosynovitis, 16873 3.3.61 unspecified 5.127 Radiculopathy, 11/04/2018 O PID cervical region [place] Unsteadiness on 11/04/2018 OPID feet [place] Spinal stenosis, 11/04/2018 OPID cervical region [place] Intervertebral 11/04/2018 O PID disc disorders [place] and with radiculopathy, lumbar region Final: Other 03/27/2016 [facility] [place] Diaphragmatic 11/12/2018 hernia without [place] obstruction or gangrene Dyskinesia of 11/12/2018 esophagus [place] Enlarged lymph 11/20/2018 nodes, unspecified [place] Other specified 11/20/2018 MH diseases of liver [place] RADICULOPATHY, Active [place] L[facility] Center OTHER Active [facility] BIOMECHANICAL Medica l LESIONS OF LUMBAR Ce nter RE SHORTNESS OF Active [facility] s BREATH Medical [place] OTHER MALAISE Active [facility] INTCRAN INJ W/O Active T [facility] LOSS OF CONSCIOUSNESS, I ILLNESS, Active Memoria l UNSPECIFIED [place] DYSPNEA, Active [facility] INFECT/INFLM Active [place] REACTION [...] Route: No Longer tiotropium INHALATION, Active 2018 0.16221 MG/ACTUAT Daily, Dosing Metered Dose Weight 97.3, Inhaler [Spiriva] kg, Start date: 03/09/19 9:00:00 DRAWER UPFITTER, Duration: 30 day, Stop date: 04/07/19 9:00:00 DRAWER UPFITTER Rasagiline 1 mg Rasagiline 1 mg No Longer tablet tablet, 1 mg / Active 2018 1 tablet, Drug form: MISC, Route: PO, Daily, 03/08/19 21:00:00 DRAWER UPFITTER, Duration: 30 day, Stop date: 04/06/19 21:00:00 DRAWER UPFITTER, 0 rasagiline 1 mg, Route: Inactive PO, Drug form: 2018 TAB, QPM, Dosing Weight 97.3, kg, Start date: 03/08/19 17:00:00 DRAWER UPFITTER, Duration: 30 day, Stop date: 04/06/19 17:00:00 DRAWER UPFITTER Flomax Notes: (Same No Longer As: Flomax) Active 2018 "Do Not Crush" Bumex Notes: (Same No Longer As: Bumex) Active 2018 [facility] Spironolactone Notes: (Same No Longer As: Aldactone) Active 2018 [facility] Albuterol 0.833 Notes: (Same No Longer H MG/ML / as: Duoneb) Active 2018 [facility] Ipratropium [place] 0.167 MG/ML Inhalant Solution CoQ10 200 mg, PO, Active Daily, 0 2018 [facility] Refill(s) Zithromax Notes: Take 1 No Longer hour before or Active 2018 [facility] 2 hours after meals. (Same As: Zithromax) Pulmicort Notes: (Same No Longer Respules As: Pulmicort) Active 2018 [facility] t Dextrose 50% 12.5 gm, 25 mL, No Longer H Syringe (D50W) Route: IVP, Active 2018 [facility] Drug Form: INJ, Dosing Weight 97.3, kg, PRN, PRN Blood Glucose Results, Start date: 03/08/19 9:15:00 DRAWER UPFITTER, Duration: 30 day, Stop date: 04/07/19 9:14:00 DRAWER UPFITTER, 0 Glucagon 1 mg, Route: No Longer IM, Drug form: Active 2018 [facility] PDR/INJ, PRN, Dosing Weight 97.3, kg, PRN Blood Glucose Results, Start date: 03/08/19 9:15:00 DRAWER UPFITTER, Duration: 30 day, Stop date: 04/07/19 9:14:00 DRAWER UPFITTER, 0 Insulin Lispro Notes: (Same No Longer as: Humalog) Active 2018 [facility] Roll in palms of hands gently; Do not shake vigorously. WASTE: F/P - Black; E - Municipal Trash Bin Stable for 28 days at room temperature. Expires in days from D ate Advair Diskus 250 1 inhalation, Inactive mcg-50 mcg Route: INHALER, 2018 [facility] inhalation powder Drug Form: AERO, Dosing Weight 97.3, kg, RBID, Start date: 03/08/19 9:09:00 DRAWER UPFITTER, Duration: 30 day, Stop date: 04/07/19 8:00:00 DRAWER UPFITTER Lyrica Notes: Same as No Longer Lyrica Active 2018 [facility] Protonix Notes: Tablet No Longer should not be Active 2018 [facility] chewed or crushed. (Same as: Protonix) Thyroxine Notes: Take 1 No Longer hour before or Active 2018 [facility] 2 hours after meal; Enteral feeds may interefere with the absorption of this medication.(Gregory e as:Levothroid, Synthroid) *RN* pls bring *RN* pls bring Inactive H pt's own pt's own 2018 [facility] rasagiline to [facility] rasagiline to for label [facility] for label, attn, Drug form: MISC, Route: MISC, QSHIFT, 03/08/19 0:00:00 DRAWER UPFITTER, Duration: 30 day, Stop date: 04/06/19 16:00:00 DRAWER UPFITTER, 0 metoprolol Notes: (Same No Longer as: Toprol XL) Active 2018 [facility] Do Not Crush Eliquis Notes: Same as: No Longer Eliquis Active 2018 [facility] metoprolol 25 mg metoprolol 25 Inactive oral tablet, mg oral tablet, 2018 Geeta theast extended release extended release, 25 mg, Route: PO, Bedtime, 03/07/19 21:00:00 DRAWER UPFITTER, Duration: 30 day, Stop date: 04/05/19 21:00:00 DRAWER UPFITTER Simvastatin Notes: (Same No Longer as: Zocor) Active 2018 [facility] Requip Notes: (Same No Longer as: Requip) Active 2018 [facility] Solu-Medrol Notes: (Same No Longer as:Solu-MEDROL, [facility] Omnipaque 350 45 mL/min, Inactive injectable Start date: 2018 [facility] solution 03/07/19 21:00:00 DRAWER UPFITTER, Duration: 1 doses or times Rocephin + Notes: (Same No Longer sterile water 10 As: Rocephin). Active 2018 [facility] mL Use with 100 mL NS and infuse over 30 min MEDICATION WASTE Product Size: 1000 mg Product Wasted: ___ mg Prednisone 40 mg, Route: Inactive PO, Drug form: 2019 [facility] TAB, Daily, Dosing Weight 97.3, kg, Priority: NOW, Start date: 03/07/19 19:53:00 DRAWER UPFITTER, Duration: 30 day, Stop date: 04/06/19 9:00:00 DRAWER UPFITTER NS 1,000 mL 1,000 mL, Rate: No Longer 75 ml/hr, Active 2018 [facility] Infuse over: 13.3 hr, Route: IV, Dosing Weight 97.3 kg, Total Volume: 1,000, Start date: 03/07/19 19:47:00 DRAWER UPFITTER, Duration: 30 day, Stop date: 04/06/19 19:46:00 DRAWER UPFITTER, 2.18, m2, 0 bumetanide 1 mg 1 mg = 1 tab, Active oral tablet PO, Daily, # 30 2019 [place] tab, 0 Refill(s) spironolactone 25 25 mg = 1 tab, Active mg oral tablet PO, Daily, # 30 2019 [place] tab, 3 Refill(s) ropinirole 0.5 MG 0.5 mg = 1 tab, Active Oral Tablet PO, Bedtime, # 2019 [facility] [Requip] 30 tab, 3 Refill(s) apixaban 2.5 MG 2.5 mg, PO, Active Oral Tablet Q12H, 0 2019 [Eliquis] Refill(s) *RN* pls update *RN* pls update Inactive height, weight, height, weight, 2019 [facility] and allergy in and allergy in adh adhoc, attn, Drug form: MISC, Route: MISC, Q15Min, 03/07/19 15:45:00 DRAWER UPFITTER, Duration: 30 day, Stop date: 04/06/19 15:30:00 DRAWER UPFITTER, 0 Dextrose 50% 12.5 gm, 25 mL, No Longer 12// H Syringe (D50W) Route: IVP, Active 2018 [facility] Drug Form: INJ, Dosing Weight 95.455, kg, PRN, PRN Blood Glucose Results, Start date: 03/07/19 14:36:00 DRAWER UPFITTER, Duration: 30 day, Stop date: 04/06/19 14:35:00 DRAWER UPFITTER, 0 Glucagon 1 mg, Route: No Longer IM, Drug form: Active 2018 [facility] PDR/INJ, PRN, Dosing Weight 95.455, kg, PRN Blood Glucose Results, Start date: 03/07/19 14:36:00 DRAWER UPFITTER, Duration: 30 day, Stop date: 04/06/19 14:35:00 DRAWER UPFITTER, 0 Docusate Notes: (Same No Longer as: Colace) (Do Active 2018 [facility] t Not Crush) POLYETHYLENE Notes: Dissolve No Longer H GLYCOL 3350 in 8 oz of Active 2018 [facility] water or juice. (Same as: Miralax) Bisacodyl Notes: (Same No Longer As: Dulcolax, Active 2018 [facility] Bisco-Lax) Ondansetron Notes: (Same No Longer as: Zofran) Active 2018 [facility] MEDICATION WASTE Product Size: 4 mg Product Wasted: ___ mg Diphenhydramine 25 mg, 1 tab, No Longer Route: PO, Drug Active 2018 [facility] t form: TAB, Q6H, Dosing Weight 95.455, kg, PRN as needed for allergy symptoms, Start date: 03/07/19 14:36:00 DRAWER UPFITTER, Duration: 30 day, Stop date: 04/06/19 14:35:00 DRAWER UPFITTER, 0 Melatonin Notes: (Same No Longer as: Melatonin) Active 2018 [facility] Trazodone Notes: (Same Inactive As: Desyrel) 2018 [facility] Acetaminophen Notes: Do not No Longer exceed 4 Active 2018 [facility] gm/day. (Same as: Tylenol) Seroquel Notes: (Same No Longer as: SEROquel) Active 2018 [facility] Hydralazine Notes: (Same No Longer as: Apresoline) Active 2018 [facility] t Push over 5 minutes Nicotine Notes: (Same No Longer as: Habitrol) Active 2018 [facility] "Remove old patch before application of new patch" WASTE: F/P - P Waste Black; E - P Waste Black Acetaminophen 325 Notes: (Same No Longer MG / Hydrocodone as: [place] Active 2018 [facility] Bitartrate 5 MG 325/5) Do not Oral Tablet exceed 4gm/day [[place] 5/325] of acetaminophen. Morphine Notes: (Same No Longer as:MORPhine Active 2018 [facility] Sulfate) Robitussin-AC Notes: (Same No Longer oral syrup As: Robitussin Active [facility]) Tessalon Perles Notes: (Same No Longer H As: Tessalon Active 2018 [facility] Perles) "Do Not Crush" Mucinex Notes: (Same No Longer as: Guaifenesin Active 2018 [facility] t [place], Humibid [place], Mucinex) "Do Not Crush" Take medication with plenty of water. Simethicone Notes: (Same No Longer as: Mylicon) Active 2018 [facility] Maalox Advanced Notes: No Longer Regular Strength (aluminum Active 2018 [facility] SUSP hydroxide-magne sium hyd-simethicone [id number]/5m l 30 ml ud IMTIAZ) Albuterol 0.833 Notes: (Same No Longer H MG/ML / as: Duoneb) Active 2018 [facility] Ipratropium [place] 0.167 MG/ML Inhalant Solution [DuoNeb] phenol Notes: No Longer Chloraseptic Active 2018 [facility] [place] (Same as: Chloraseptic, Sore Throat [place]) WASTE: F/P - Black; E - Municipal Trash Bin Artificial Tears 1 drp, Route: No Longer Each Affected 2018 [facility] Eye, QID, Drug form: SOLN, PRN Dry Eyes, Start date: 03/07/19 14:36:00 DRAWER UPFITTER, Duration: 30 day, Stop date: 04/06/19 14:35:00 DRAWER UPFITTER, 0 Lidocaine 0.05 Notes: Apply No Longer MG/MG Transdermal only once for 2018 [facility] Patch up to 12 hours in a 24-hour period (12 hours on and 12 hours off). (Same as: Lidoderm) "Remove old patch before application of new patch" Lactulose 667 Notes: (Same No Longer MG/ML Oral as:Chronulac) Active [address] [facility] [address] Solution Benzocaine 15 MG Notes: Same as: No Longer 03/07 / Menthol 3.6 MG Cepacol Active [address] [facility] [address] Lozenge [Cepacol Sore Throat Pain Relief 15/3.6] Osteo Bi-Flex 0 Refill(s) Active 2019 [facility] ropinirole Notes: (Same Inactive as: Requip) 2018 [facility] tramadol 1-2 tab, PO, Active hydrochloride [...] Take 1 Inactive hour before or [address] [facility] 2 hours after [facility] meal; Enteral feeds may interefere with the absorption of this medication.(Gregory e as:Levothroid, Synthroid) Saline Flush 0.9% 10 ml, Route: Inactive IVP, Drug Form: [address] [facility] INJ, Dosing [facility] Weight 95.455, kg, Q12H, Start date: 05/17/18 21:00:00 DRAWER UPFITTER, Duration: 30 day, Stop date: 06/16/18 9:00:00 CDT Simvastatin Notes: (Same No Longer as: Zocor) Active 2018 [facility] Enoxaparin Notes: (Same No Longer as: Lovenox) Active 2018 [facility] Protonix Notes: Tablet No Longer should not be Active [address] [facility] chewed or [facility] crushed. (Same as: Protonix) Cefazolin Notes: (Same No Longer As: Ancef, Active [address] [facility] Kefzol) [facility] MEDICATION WASTE Product Size: 1000 mg Product Wasted: ___ mg Docusate Sodium Notes: (Same No Longer H 100 MG Oral as: Colace) (Do Active 2018 [place] Capsule Not Crush) [facility] Flomax Notes: (Same No Longer As: Flomax) Active [address] [facility] "Do Not Crush" [facility] rasagiline Notes: Same as No Longer Azilect Non Active [address] [facility] Formulary Item [facility] Lyrica Notes: (Same No Longer as: Lyrica) Active 2018 [facility] Cymbalta 60 mg, Route: Inactive PO, Drug form: [address] [facility] , QPM, [facility] Dosing Weight 95.455, kg, Start date: 05/17/18 17:00:00 DRAWER UPFITTER, Duration: 30 day, Stop date: 06/15/18 17:00:00 CDT Dexilant 60 mg, Route: Inactive PO, Drug form: 2018 [facility], BID, [facility] Dosing Weight 95.455, kg, Start date: 05/17/18 17:00:00 DRAWER UPFITTER, Duration: 30 day, Stop date: 06/16/18 9:00:00 CDT Streptococcus 0.5 mL, Route: Inactive pneumoniae IM, ONCALL, [address] [facility] serotype 1 Start date: [facility] capsular antigen 05/17/18 diphtheria [id number] 14:39:45 DRAWER UPFITTER, protein conjugate Stop date: / 06/16/18 Streptococcus 14:34:45 CDT pneumoniae serotype 14 capsular antigen diphtheria [id number] protein conjugate vaccine / Streptococcus pneumoniae serotype 18C capsular antigen d glycopyrrolate Route: IV, Drug Inactive (ANES) form: INJ, [address] [facility] ONCE, Stop [facility] date: 05/17/18 12:57:00 DRAWER UPFITTER neostigmine Route: IV, Drug Inactive (ANES) form: INJ, [address] [facility] ONCE, Stop [facility] date: 05/17/18 12:57:00 DRAWER UPFITTER Sodium Chloride 25 mL, Route: No Longer 0.9% IV IV, Start date: Active [address] [facility] 05/17/18 [facility] 12:57:00 DRAWER UPFITTER, Duration: 30 day, Stop date: 06/16/18 13:56:00 CDT, PRN Line Flush BD Normal Saline Notes: (Same No Longer Flush as: BD Active [address] [facility] Posiflush) [facility] famotidine (ANES) Route: IV, Drug Inactive 05/17 form: INJ, [address] [facility] ONCE, Stop City date: 05/17/18 12:52:00 DRAWER UPFITTER ropivacaine Notes: Final No Longer concentration: Active [address] [facility] Ropivacaine [facility] 0.2% 400 ml Oxycodone Notes: (Same No Longer Hydrochloride 5 as: Roxicodone) Active [address] [facility] MG Oral Tablet [facility] propofol ([facility]) Route: IV, Drug Inactive form: INJ, [address] [facility] ONCE, Stop City date: 05/17/18 12:32:00 DRAWER UPFITTER fentaNYL ([facility]) Route: IV, Drug Inactive form: INJ, [address] [facility] ONCE, Stop City date: 05/17/18 12:27:00 DRAWER UPFITTER Saline Flush 0.9% 10 ml, Route: Inactive IVP, Drug Form: [address] [facility] INJ, Dosing City Weight 95.455, kg, PRN, PRN Line Flush, Start date: 05/17/18 12:27:00 DRAWER UPFITTER, Duration: 30 day, Stop date: 06/16/18 13:26:00 CDT Ondansetron Notes: (Same No Longer as: Zofran) Active [address] [facility] MEDICATION City WASTE Product Size: 4 mg Product Wasted: ___ mg Lactated Ringers 1,000 mL, Rate: No Longer 05/17 IV 1,000 mL 125 ml/hr, Active [address] [facility] Infuse over: 8 City hr, Route: IV, Dosing Weight 95.455 kg, Total Volume: 1,000, Start date: 05/17/18 12:27:00 DRAWER UPFITTER, Duration: 30 day, Stop date: 06/16/18 12:26:00 CDT, 2.18, m2 Morphine Notes: (Same No Longer as:MORPhine Active [address] [facility] Sulfate) [facility] Acetaminophen Notes: Do not No Longer exceed 4 Active [address] [facility] gm/day. (Same City as: Tylenol) tranexamic acid Route: IV, Drug Inactive 05/17/ MH (ANES) 100 mg form: INJ, 2018 Memoria l Start date: [facility] 05/17/18 12:00:00 DRAWER UPFITTER, Stop date: 05/17/18 13:00:00 DRAWER UPFITTER dexamethasone Route: IV, Drug Inactive 05/17/ M H (ANES) form: INJ, [address] [facility] , City date: 05/17/18 11:01:00 DRAWER UPFITTER tranexamic acid Route: IV, Drug Inactive 05/17/ MH (ANES) form: INJ, [address] [facility] , date: 05/17/18 11:01:00 DRAWER UPFITTER rocuronium (ANES) Route: IV, Drug Inactive 05/17 / MH form: INJ, [address] [facility] [address] [facility] [facility] , date: 05/17/18 11:01:00 DRAWER UPFITTER ondansetron Route: IV, Drug Inactive 05/17/ MH (ANES) form: INJ, [address] [facility] , date: 05/17/18 11:01:00 DRAWER UPFITTER propofol (ANES) Route: IV, Drug Inactive 05/17/ MH form: INJ, [address] [facility] , date: 05/17/18 11:01:00 DRAWER UPFITTER lidocaine (ANES) Route: IV, Drug Inactive 05/17/ MH form: INJ, [address] [facility] , date: 05/17/18 10:56:00 DRAWER UPFITTER fentaNYL (ANES) Route: IV, Drug Inactive 05/17/ MH form: INJ, [address] [facility] , date: 05/17/18 10:56:00 DRAWER UPFITTER phenylephrine Route: IV, Drug Inactive 05/17/ M H (ANES) [address]9964 form: INJ, 2018 [facility] Start date: [facility] 05/17/18 10:52:00 DRAWER UPFITTER, Stop date: 05/17/18 11:52:00 DRAWER UPFITTER phenylephrine Route: IV, Drug Inactive 05/17/ M H (ANES) form: INJ, [address] [facility] ONCE, date: 05/17/18 10:51:00 DRAWER UPFITTER ceFAZolin (ANES) Route: IV, Drug Inactive 05/17/ MH form: INJ, [address] [facility] , date: 05/17/18 10:51:00 DRAWER UPFITTER ePHEDrine (ANES) Route: IV, Drug Inactive form: INJ, [address] [facility] ONCE, Stop City date: 05/17/18 10:51:00 DRAWER UPFITTER Ondansetron Notes: (Same Inactive as: Zofran) [address] [facility] MEDICATION City WASTE Product Size: 4 mg Product Wasted: ___ mg Flumazenil Notes: (Same Inactive as: Romazicon) 2018 [facility] Naloxone Notes: Same as Inactive Narcan 2018 [facility] Ketorolac 4 days Inactive MEDICATION [address] [facility] WASTE City Product Size: 30 mg Product Wasted: ___ mg Acetaminophen Notes: Max Inactive acetaminophen [address] [facility] 4000 mg/day (4 City gm/day). (Same as: Tylenol Extra Strength) Labetalol Notes: (Same Inactive as: Normodyne, [address] [facility] Trandate) Push City over 2 minutes Give bolus over 2-3 minutes. Morphine Notes: (Same Inactive as:MORPhine [address] [facility] Sulfate) [facility] Hydralazine Notes: (Same Inactive as: Apresoline) [address] [facility] Push over 5 City minutes Lactated Ringers Route: IV, Inactive Injection IV Total Volume: 2018 [facility] (ANES) 1000 mL 1,000, Start City date: 05/17/18 9:51:00 DRAWER UPFITTER, Stop date: 05/17/18 10:51:00 DRAWER UPFITTER ceFAZolin + Notes: (Same No Longer sterile water 20 As: Ancef, Active 2018 [place] [facility] mL Kefzol) City MEDICATION WASTE Product Size: 1000 mg Product Wasted: ___ mg Trazodone 100 mg = 1 tab, Active Hydrochloride 100 PO, Bedtime, 0 2018 [facility] MG Oral Tablet Refill(s) [facility] dexlansoprazole 60 mg = 1 cap, Active H 60 MG Enteric PO, BID, 0 2018 [facility] Coated Capsule Refill(s) [facility] [Dexilant] rOPINIRole 0.5 mg 0.5 mg = 1 tab, Active oral tablet PO, Daily, 0 2018 [facility] Refill(s) [facility] pregabalin 100 MG 100 mg = 1 cap, Active Oral Capsule PO, BID, # 60 2019 [facility] [Lyrica] cap, 1 Refill(s) Sodium Chloride 1,000 mL, Rate: Inactive 0.9% IV 1,000 mL 25 ml/hr, 2018 [facility] Infuse over: 40 hr, Route: IV, Dosing Weight 94.545 kg, Total Volume: 1,000, Start date: 05/06/18 2:37:00 DRAWER UPFITTER, Duration: 30 day, Stop date: 06/05/18 2:36:00 CDT, 2.17, m2 Omnipaque 300 Notes: (Same No Longer injectable as:Omnipaque Active 2018 [facility] t solution 300). WASTE: F/P - Black; E - [employer] meropenem 1000 MG 1,000 mg, IV, No Longer Injection Q12H, X 35 day, Active 2017 [facility] [Merrem] # 70 bag, 0 City Refill(s), other vancomycin 1 g 1 gm, IV, Q12H, No Longer intravenous X 35 day, # 70 Active 2018 [facility] injection bag, 0 City Refill(s), other budesonide-formot Notes: (Same No Longer franky as: Symbicort) Active [address] [place] [address] WASTE: Aerosol City - Return to Pharmacy rasagiline Notes: Same as No Longer Azilect Non Active [address] [place] [address] Formulary Item [facility] Cymbalta Notes: (Same No Longer as: Cymbalta) Active [address] [place] [address] (Do Not Crush) [facility] Flomax Notes: (Same No Longer As: Flomax) [address] "Do Not Crush" [facility] Cathflo Activase Notes: "Syringe No Longer 05/16 2 mg injection for catheter Active 2018 [facility] rial clearance or [facility] interventional radiology use. Reconstitute each vial of Cathflo Activase with 2.2 ml Sterile Water resulting in a 1 mg/ml solution. (Same as: Activase) MEDICATION WASTE Product Size: 2 mg Product Wasted: ___ mg Protonix Notes: Tablet No Longer should not be Active [address] [facility] chewed or [facility] crushed. (Same as: Protonix) Oxycodone Notes: (Same No Longer Hydrochloride 5 as: Roxicodone) Active [address] [facility] MG Oral Tablet [facility] 24 HR Metoprolol Notes: (Same No Longer Tartrate 25 MG as: Toprol XL) Active 2017 [place] Extended Release Do Not Crush Ci ty Tablet [Toprol] Dulera 200 mcg-5 2 puff, Route: No Longer mcg/inh INHALER, Drug Active [address] [facility] inhalation Form: AERO, [facility] aerosol Dosing Weight 94.545, kg, BID, Start date: 05/16/17 9:00:00 DRAWER UPFITTER, Duration: 30 day, Stop date: 06/14/17 17:00:00 CDT Nexium 40 mg, Route: No Longer PO, Drug form: Active [address] [facility] ECCAP, BID, [facility] Dosing Weight 94.545, kg, Start date: 05/16/17 9:00:00 DRAWER UPFITTER, Duration: 30 day, Stop date: 06/14/17 17:00:00 CDT albuterol 90 Route: PO, Drug Inactive mcg/inh Form: AERO/A, [address] [facility] inhalation Dosing Weight [facility] aerosol 94.545, kg, BID, Start date: 05/16/17 9:00:00 DRAWER UPFITTER, Duration: 30 day, Stop date: 06/14/17 17:00:00 CDT Docusate Sodium Notes: (Same No Longer H 100 MG Oral as: Colace) (Do Active 2017 [place] [facility] Capsule [Colace] Not Crush) [facility] Thyroxine Notes: Take 1 No Longer hour before or Active [address] [facility] 2 hours after [facility] meal; Enteral feeds may interefere with the absorption of this medication.(Gregory e as:Levothroid, Synthroid) albuterol Notes: SEE RT No Longer DOCUMENTATION Active [address] [facility] (Same as: [facility] Proventil) Melatonin 10 mg, Route: Inactive PO, Drug form: [address] [facility] CAP, Bedtime, [facility] Dosing Weight 94.545, kg, Start date: 05/15/17 21:00:00 DRAWER UPFITTER, Duration: 30 day, Stop date: 06/13/17 21:00:00 CDT melatonin Notes: (Same No Longer as: Melatonin) Active 2017 [facility] Simvastatin Notes: (Same No Longer as: Zocor) Active 2017 [facility] heparin Notes: porcine No Longer heparin Active 2017 [facility] meropenem Notes: (Same No Longer as: Merrem) . Active [address] [facility] MEDICATION City WASTE Product Size: 1000 mg Product Wasted: ___ mg Clonidine Notes: (Same No Longer Hydrochloride 0.1 As: Catapres) Active [address] [facility] MG Oral Tablet [facility] Vasotec Notes: (Same No Longer as: Vasotec-IV) Active 2017 [facility] Potassium Notes: (Same No Longer Chloride as: K-Dur ) Active [address] [facility] "Do Not Crush" [facility] With food and full glass of water Albuterol 0.83 Notes: SEE RT No Longer H MG/ML Inhalant DOCUMENTATION Active 2017 [facility] orial Solution (Same as: [facility] Proventil) lactobacillus 1 tab, Route: No Longer acidophilus PO, Drug Form: Active 2017 [facility] TAB, Dosing [facility] Weight 94.545, kg, BID, Start date: 05/15/17 17:26:00 DRAWER UPFITTER, Duration: 30 day, Stop date: 06/14/17 17:00:00 CDT Vancomycin 2001 mg: No Longer infuse over 2.5 Active [address] [facility] hours For [facility] adult patients only: Round to nearest 250 mg per Medical Staff approval MEDICATION WASTE Product Size: 1000 mg Product Wasted: ___ mg Ceftriaxone Notes: (Same Inactive As: Rocephin). [address] [facility] Use with 100 mL [facility] NS and infuse over 30 min MEDICATION WASTE Product Size: 1000 mg Product Wasted: ___ mg Acetaminophen Notes: Do not No Longer exceed 4 Active [address] [facility] gm/day. (Same City as: Tylenol) ondansetron Route: IV, Drug Inactive (ANES) form: INJ, [address] [facility] ONCE, Stop [facility] date: 05/15/17 8:52:00 DRAWER UPFITTER glycopyrrolate Route: IV, Drug Inactive MH (ANES) form: INJ, [address] [facility] ONCE, Stop City date: 05/15/17 8:52:00 DRAWER UPFITTER neostigmine Route: IV, Drug Inactive MH (ANES) form: INJ, [address] [facility] ONCE, Stop City date: 05/15/17 8:52:00 DRAWER UPFITTER famotidine (ANES) Route: IV, Drug Inactive 05/15 form: INJ, [address] [facility] ONCE, Stop City date: 05/15/17 8:52:00 DRAWER UPFITTER Morphine Notes: (Same No Longer as:MORPhine Active [address] [facility] Sulfate) [facility] ePHEDrine (ANES) Route: IV, Drug Inactive MH form: INJ, [address] [facility] ONCE, Stop City date: 05/15/17 8:39:00 DRAWER UPFITTER phenylephrine Route: IV, Drug Inactive 05/15/ M H (ANES) form: INJ, [address] [facility] ONCE, Stop date: 05/15/17 8:34:00 DRAWER UPFITTER rocuronium (ANES) Route: IV, Drug Inactive 05/15 MH form: INJ, [address] [facility] ONCE, Stop City date: 05/15/17 8:29:00 DRAWER UPFITTER ceFAZolin (ANES) Route: IV, Drug Inactive MH form: INJ, [address] [facility] ONCE, Stop City date: 05/15/17 8:29:00 DRAWER UPFITTER propofol (ANES) Route: IV, Drug Inactive MH form: INJ, [address] [facility] ONCE, Stop City date: 05/15/17 8:24:00 DRAWER UPFITTER succinylcholine Route: IV, Drug Inactive MH (ANES) form: INJ, [address] [facility] ONCE, Stop City date: 05/15/17 8:24:00 DRAWER UPFITTER Promethazine 6.25 mg, Route: Inactive IVPB, ONCE, [address] [facility] Dosing Weight [facility] 95.455, kg, PRN Nausea & Vomiting, Start date: 05/15/17 8:22:00 DRAWER UPFITTER Ondansetron 4 mg, Route: Inactive IVP, ONCE, [address] [facility] Dosing Weight [facility] 95.455, kg, PRN Nausea & Vomiting, Start date: 05/15/17 8:22:00 DRAWER UPFITTER Meperidine 12.5 mg, Route: Inactive IVP, Q30Min, [address] [facility] Dosing Weight [facility] 95.455, kg, PRN Other -See Comment, For shivering, Start date: 05/15/17 8:22:00 DRAWER UPFITTER, Duration: 2 doses or times, Stop date: Limited # of times Albuterol 0.83 2.49 mg, Route: Inactive MG/ML Inhalant NEB, Q20Min, 2018 [place] [facility] Solution Dosing Weight [facility] 95.455, kg, PRN Wheezing, Priority: STAT, Start date: 05/15/17 8:22:00 DRAWER UPFITTER, Duration: 30 day, Stop date: 06/14/17 9:21:00 CDT Flumazenil 0.2 mg, Route: Inactive IVP, PRN, 2017 [facility] Weight [facility] 95.455, kg, PRN Benzodiazepine Reversal, Initial dose, Start date: 05/15/17 8:22:00 DRAWER UPFITTER, Duration: 30 day, Stop date: 06/14/17 9:21:00 CDT Morphine 2 mg, Route: Inactive IVP, Q5Min, 2017 [facility] Weight [facility] 95.455, kg, PRN Pain Score 4-6, Start date: 05/15/17 8:22:00 DRAWER UPFITTER, Duration: 5 doses or times, Stop date: Limited # of times Hydromorphone 0.5 mg, Route: Inactive IVP, Q5Min, 2017 [facility] Weight [facility] 95.455, kg, PRN Pain Score 7-10, Start date: 05/15/17 8:22:00 DRAWER UPFITTER, Duration: 4 doses or times, Stop date: Limited # of times Naloxone 0.4 mg, Route: Inactive IVP, Q2MIN, [address] [facility] Dosing Weight [facility] 95.455, kg, PRN Narcotic Reversal, Start date: 05/15/17 8:22:00 DRAWER UPFITTER, Duration: 8 doses or times, Stop date: Limited # of times Labetalol 10 mg, Route: Inactive IVP, Q5Min, 2017 [facility] Weight [facility] 95.455, kg, PRN Elevated BP, Start date: 05/15/17 8:22:00 DRAWER UPFITTER, Duration: 5 doses or times, Stop date: Limited # of times lidocaine (ANES) Route: IV, Drug Inactive form: INJ, [address] [facility] ONCE, Stop City date: 05/15/17 8:19:00 DRAWER UPFITTER fentaNYL (ANES) Route: IV, Drug Inactive form: INJ, [address] [facility] ONCE, Stop City date: 05/15/17 8:19:00 DRAWER UPFITTER acetaminophen Route: IV, Drug Inactive H (ANES) 10 mg form: INJ, [address] [facility] Start date: 05/15/17 8:14:00 DRAWER UPFITTER, Stop date: 05/15/17 9:14:00 DRAWER UPFITTER Lactated Ringers Route: IV, Inactive Injection IV Total Volume: 2017 [facility] (ANES) 1000 mL 1,000, Start City date: 05/15/17 7:14:00 DRAWER UPFITTER, Stop date: 05/15/17 8:14:00 DRAWER UPFITTER ceFAZolin + Notes: (Same No Longer sterile water 20 As: Ancef, Active 2017 [place] [facility] mL Kefzol) [facility] MEDICATION WASTE Product Size: 1000 mg Product Wasted: ___ mg Ceftriaxone 1000 2 gm, IV, No Longer MG Injection Daily, X 14 Active 2017 [facility] [Rocephin] day, # 14 bag, [facility] 0 Refill(s), other vancomycin 1 g 1 gm, IV, Q12H, No Longer intravenous X 14 day, # 28 Active 2017 [facility] injection bag, 0 City Refill(s), other Ceftriaxone Notes: (Same No Longer As: Rocephin). Active [address] [facility] Use with 100 mL [facility] NS and infuse over 30 min MEDICATION WASTE Product Size: 1000 mg Product Wasted: ___ mg 24 HR Metoprolol Notes: (Same No Longer Tartrate 25 MG as: Toprol XL) Active 2017 [place] Extended Release Do Not Crush Ci ty Tablet [Toprol] Dulera 200 mcg-5 2 puff, Route: Inactive mcg/inh INHALER, Drug [address] [facility] inhalation Form: AERO, [facility] aerosol Dosing Weight 103.4, kg, BID, Start date: 05/04/17 9:00:00 DRAWER UPFITTER, Duration: 30 day, Stop date: 06/02/17 17:00:00 DRAWER UPFITTER Clonidine Notes: (Same No Longer Hydrochloride 0.1 As: Catapres) Active [address] [facility] MG Oral Tablet [facility] Vasotec Notes: (Same No Longer as: Vasotec-IV) Active 2017 [facility] cetirizine Notes: (Same No Longer As: Zyrtec) Active 2017 [facility] Fluticasone 2 spray, Route: No Longer propionate 0.05 Each Affected Active 2017 [place] [facility] MG/ACTUAT Metered Nostril, Drug [facility] Dose Nasal [place] Form: JANINE, [Flonase] Dosing Weight 103.4, kg, Daily, Start date: 05/03/17 11:01:00 DRAWER UPFITTER, Duration: 30 day, Stop date: 06/02/17 9:00:00 DRAWER UPFITTER Loratadine 10 mg, Route: Inactive PO, Drug form: 2018 [facility] TAB, Daily, [facility] Dosing Weight 103.4, kg, Start date: 05/03/17 9:00:00 DRAWER UPFITTER, Duration: 30 day, Stop date: 06/01/17 9:00:00 DRAWER UPFITTER, .. lactobacillus 1 tab, Route: No Longer acidophilus PO, Drug Form: Active 2017 [facility] TAB, Dosing [facility] Weight 95.455, kg, BID, Start date: 05/02/17 9:00:00 DRAWER UPFITTER, Duration: 30 day, Stop date: 05/31/17 17:00:00 DRAWER UPFITTER INCRUSE Ellipta INCRUSE Ellipta No Longer 62.5mcg 62.5mcg Active [address] [facility] inhalation powder inhalation Cit y powder, 1 inhalation (Pt's own med), Drug form: MISC, Route: INHALER, RDaily, 05/02/17 8:00:00 DRAWER UPFITTER, Duration: 30 day, Stop date: 05/31/17 8:00:00 DRAWER UPFITTER Incruse Ellipta 62.5 microgram, Active 62.5 mcg INHALATION, [address] [facility] inhalation powder Daily, 0 [facility] Refill(s) Dulera 200 mcg-5 2 puff, Active mcg/inh INHALER, BID, # [address] [facility] inhalation 1 ea [facility] aerosol Thyroxine Notes: Take 1 No Longer hour before or Active [address] [facility] 2 hours after [facility] meal; Enteral feeds may interefere with the absorption of this medication.(Gregory e as:Levothroid, Synthroid) heparin Notes: porcine No Longer heparin Active 2017 [facility] Simvastatin Notes: (Same No Longer as: Zocor) Active 2017 [facility] Melatonin Notes: (Same No Longer as: Melatonin) Active 2017 [facility] 200 ACTUAT Notes: SEE RT No Longer Albuterol 0.09 DOCUMENTATION Active 2017 [facility] MG/ACTUAT Metered (Same as: [facility] Dose Inhaler Proventil) [ProAir HFA] DULERA DULERA No Longer 200mcg/5mcg per 200mcg/5mcg per Active [address] [facility] actuation INHALER actuation [facility] INHALER, 2 puffs (Pt's own med), Drug form: MISC, Route: INHALER, RBID, 05/01/17 20:00:00 DRAWER UPFITTER, Duration: 30 day, Stop date: 05/31/17 8:00:00 DRAWER UPFITTER cefepime Notes: (Same No Longer As: Maxipime) Active [address] [facility] MEDICATION [facility] WASTE Product Size: 1000 mg Product Wasted: ___ mg Vancomycin 2001 mg: No Longer infuse over 2.5 Active [address] [facility] hours For [facility] adult patients only: Round to nearest 250 mg per Medical Staff approval MEDICATION WASTE Product Size: 1000 mg Product Wasted: ___ mg Acetaminophen Notes: Do not No Longer exceed 4 Active [address] [facility] gm/day. (Same City as: Tylenol) Protonix 40 mg, 1 tab, No Longer Route: PO, Drug Active [address] [facility] form: ECTAB, [facility] BID-Before Meals, Start date: 05/01/17 18:00:00 DRAWER UPFITTER, Duration: 30 day, Stop date: 05/31/17 16:30:00 DRAWER UPFITTER Flomax Notes: (Same No Longer As: Flomax) Active [address] [facility] "Do Not Crush" [facility] rasagiline Notes: Same as No Longer Azilect Non Active [address] [facility] Formulary Item [facility] Cymbalta 60 mg, 2 cap, No Longer Route: PO, Drug Active [address] [facility] form: DRC, QPM, [facility] Dosing Weight 95.455, kg, Start date: 05/01/17 17:17:00 DRAWER UPFITTER, Duration: 30 day, Stop date: 05/31/17 17:00:00 DRAWER UPFITTER Nexium 40 mg, Route: Inactive PO, Drug form: [address] [facility] ECCAP, BID, [facility] Dosing Weight 95.455, kg, Start date: 05/01/17 17:00:00 DRAWER UPFITTER, Duration: 30 day, Stop date: 05/31/17 9:00:00 DRAWER UPFITTER Docusate Sodium 100 mg, 1 cap, No Longer 100 MG Oral Route: PO, Drug Active 2017 [place] [facility] Capsule form: CAP, BID, [facility] Dosing Weight 95.455, kg, Start date: 05/01/17 17:00:00 DRAWER UPFITTER, Duration: 30 day, Stop date: 05/31/17 9:00:00 DRAWER UPFITTER Asmanex HFA Asmanex HFA, Inactive See 2017 [facility] Route: INHALATION, BID, 05/01/17 17:00:00 DRAWER UPFITTER, Duration: 30 day, Stop date: 05/31/17 9:00:00 DRAWER UPFITTER Levofloxacin Notes: (Same Inactive as:Levaquin) 2017 [facility] Albuterol 0.83 Notes: SEE RT No Longer H MG/ML Inhalant DOCUMENTATION Active 2017 [facility] orial Solution (Same as: [facility] Proventil) BD Normal Saline Notes: (Same No Longer Flush as: BD Active [address] [facility] Posiflush) [facility] neostigmine Route: IV, Drug Inactive (ANES) form: INJ, [address] [facility] ONCE, Stop [facility] date: 05/01/17 10:14:00 DRAWER UPFITTER glycopyrrolate Route: IV, Drug Inactive (ANES) form: INJ, [address] [facility] ONCE, Stop [facility] date: 05/01/17 10:14:00 DRAWER UPFITTER dexamethasone Route: IV, Drug Inactive H (ANES) form: INJ, [address] [facility] ONCE, Stop [facility] date: 05/01/17 10:14:00 DRAWER UPFITTER famotidine (ANES) Route: IV, Drug Inactive 05/01 form: INJ, [address] [facility] ONCE, date: 05/01/17 10:14:00 DRAWER UPFITTER ondansetron Route: IV, Drug Inactive MH (ANES) form: INJ, [address] [facility] ONCE, date: 05/01/17 10:14:00 DRAWER UPFITTER phenylephrine Route: IV, Drug Inactive 05/01/ M H (ANES) form: INJ, [address] [facility] , date: 05/01/17 10:11:00 DRAWER UPFITTER ePHEDrine (ANES) Route: IV, Drug Inactive MH form: INJ, [address] [facility] ONCE, date: 05/01/17 10:06:00 DRAWER UPFITTER rocuronium (ANES) Route: IV, Drug Inactive 05/01 MH form: INJ, [address] [facility] , date: 05/01/17 10:01:00 DRAWER UPFITTER fentaNYL (ANES) Route: IV, Drug Inactive MH form: INJ, [address] [facility] , date: 05/01/17 10:01:00 DRAWER UPFITTER propofol (ANES) Route: IV, Drug Inactive MH form: INJ, [address] [facility] ONCE, date: 05/01/17 10:01:00 DRAWER UPFITTER lidocaine (ANES) Route: IV, Drug Inactive 05/01/ MH form: INJ, [address] [facility] ONCE, date: 05/01/17 10:01:00 DRAWER UPFITTER succinylcholine Route: IV, Drug Inactive MH (ANES) form: INJ, [address] [facility] , date: 05/01/17 10:01:00 DRAWER UPFITTER Oxycodone Notes: (Same No Longer Hydrochloride 5 as: Roxicodone) Active [address] [facility] MG Oral Tablet [facility] Morphine Notes: (Same No Longer as:MORPhine Active [address] [facility] Sulfate) [facility] Ondansetron Notes: (Same No Longer as: Zofran) [address] [facility] MEDICATION City WASTE Product Size: 4 mg Product Wasted: ___ mg Lactated Ringers 1,000 mL, Rate: No Longer 05/01 IV 1,000 mL 100 ml/hr, Active [address] [facility] Infuse over: 10 City hr, Route: IV, Dosing Weight 95.455 kg, Total Volume: 1,000, Start date: 05/01/17 9:53:00 DRAWER UPFITTER, Duration: 30 day, Stop date: 05/31/17 9:52:00 DRAWER UPFITTER, 2.18, m2 acetaminophen Route: IV, Drug Inactive H (ANES) 10 mg form: INJ, [address] [facility] Start date: [facility] 05/01/17 9:52:00 DRAWER UPFITTER, Stop date: 05/01/17 10:52:00 DRAWER UPFITTER ceFAZolin (ANES) Route: IV, Drug Inactive 2000 mg form: INJ, [address] [facility] Start date: [facility] 05/01/17 9:21:00 DRAWER UPFITTER, Stop date: 05/01/17 10:21:00 DRAWER UPFITTER phenylephrine Route: IV, Drug Inactive H (ANES) 100 form: INJ, [address] [facility] microgram Start date: [facility] 05/01/17 8:55:00 DRAWER UPFITTER, Stop date: 05/01/17 9:55:00 DRAWER UPFITTER Lactated Ringers Route: IV, Inactive Injection [facility] mL 1,000, Start City date: 05/01/17 8:38:00 DRAWER UPFITTER, Stop date: 05/01/17 9:38:00 DRAWER UPFITTER ceFAZolin + Notes: (Same Inactive sterile water 20 As: Eduard, 2017 [place] [facility] mL Kefzol) [facility] MEDICATION WASTE Product Size: 1000 mg Product Wasted: ___ mg neostigmine Route: IV, Drug Inactive (ANES) form: INJ, [address] [facility] ONCE, Stop City date: 04/13/17 15:55:00 DRAWER UPFITTER ondansetron Route: IV, Drug Inactive (ANES) form: INJ, [address] [facility] ONCE, Stop City date: 04/13/17 15:55:00 DRAWER UPFITTER phenylephrine Route: IV, Drug Inactive H (ANES) form: INJ, [address] [facility] , Stop [place] date: 04/13/17 15:55:00 DRAWER UPFITTER glycopyrrolate Route: IV, Drug Inactive (ANES) form: INJ, 2017 date: 04/13/17 15:55:00 DRAWER UPFITTER metoprolol (ANES) Route: IV, Drug Inactive 04/13 form: 2017 date: 04/13/17 15:36:00 DRAWER UPFITTER ePHEDrine (ANES) Route: IV, Drug Inactive form: 2017 date: 04/13/17 15:36:00 DRAWER UPFITTER Acetaminophen 325 650 mg = 2 tab, No Longer 03/26/ MH MG Oral Tablet PO, Q4H, PRN Active 2017 [place] [Tylenol] Pain, X 10 day, City # 120 tab, 0 Refill(s), other Ketorolac 10 mg = 1 tab, No Longer Tromethamine 10 PO, Q8H, X 3 Active 2017 [facility] MG Oral Tablet day, # 9 tab, 0 C ity Refill(s), Pharmacy: [facility] rocuronium (ANES) Route: IV, Drug Inactive 04/13 form: 2017 date: 04/13/17 15:26:00 DRAWER UPFITTER phenylephrine Route: IV, Drug Inactive H (ANES) form: 2017 date: 04/13/17 15:26:00 DRAWER UPFITTER ePHEDrine (ANES) Route: IV, Drug Inactive form: 2017 date: 04/13/17 15:26:00 DRAWER UPFITTER dexamethasone Route: IV, Drug Inactive H (ANES) form: 2017 date: 04/13/17 15:26:00 DRAWER UPFITTER famotidine (ANES) Route: IV, Drug Inactive 04/13 form: 2017, date: 04/13/17 15:26:00 DRAWER UPFITTER propofol (ANES) Route: IV, Drug Inactive form: 2017 date: 04/13/17 15:21:00 DRAWER UPFITTER lidocaine (ANES) Route: IV, Drug Inactive form: 2017 date: 04/13/17 15:21:00 DRAWER UPFITTER ceFAZolin (ANES) Route: IV, Drug Inactive form: INJ, [address] [place] [address] ONCE, Stop [facility] date: 04/13/17 15:16:00 DRAWER UPFITTER Ondansetron 4 mg, Route: Inactive IVP, ONCE, [address] [facility] Dosing Weight [facility] 93.182, kg, PRN Nausea & Vomiting, Start date: 04/13/17 15:04:00 DRAWER UPFITTER Albuterol 0.83 2.49 mg, Route: Inactive MG/ML Inhalant NEB, Q20Min, 2017 [place] Solution Dosing Weight [facility] 93.182, kg, PRN Wheezing, Priority: STAT, Start date: 04/13/17 15:04:00 DRAWER UPFITTER, Duration: 30 day, Stop date: 05/13/17 15:03:00 DRAWER UPFITTER Metoprolol 1 mg, Route: Inactive IVP, Q5Min, [address] [facility] Dosing Weight [facility] 93.182, kg, PRN Other -See Comment, Start date: 04/13/17 15:04:00 DRAWER UPFITTER, Duration: 5 doses or times, Stop date: Limited # of times Morphine 2 mg, Route: Inactive IVP, Q5Min, [address] [facility] Dosing Weight [facility] 93.182, kg, PRN Pain Score 4-6, Start date: 04/13/17 15:04:00 DRAWER UPFITTER, Duration: 5 doses or times, Stop date: Limited # of times Acetaminophen 1,000 mg, Inactive Route: PO, Drug [address] [facility] form: TAB, [facility] ONCE, Dosing Weight 93.182, kg, PRN Pain Score 1-3, Start date: 04/13/17 15:04:00 DRAWER UPFITTER Flumazenil 0.2 mg, Route: Inactive IVP, PRN, [address] [facility] Dosing Weight [facility] 93.182, kg, PRN Benzodiazepine Reversal, Initial dose, Start date: 04/13/17 15:04:00 DRAWER UPFITTER, Duration: 30 day, Stop date: 05/13/17 15:03:00 DRAWER UPFITTER Naloxone 0.4 mg, Route: Inactive IVP, Q2MIN, [address] [facility] Dosing Weight [facility] 93.182, kg, PRN Narcotic Reversal, Start date: 04/13/17 15:04:00 DRAWER UPFITTER, Duration: 8 doses or times, Stop date: Limited # of times Hydromorphone 0.5 mg, Route: Inactive IVP, Q5Min, [address] [facility] Dosing Weight [facility] 93.182, kg, PRN Pain Score 7-10, Start date: 04/13/17 15:04:00 DRAWER UPFITTER, Duration: 4 doses or times, Stop date: Limited # of times Calcium Chloride 1,000 mL, Rate: Inactive 0.0014 MEQ/ML / 125 ml/hr, 2017 [facility] Potassium Infuse over: 8 [facility] Chloride 0.004 hr, Route: IV, MEQ/ML / Sodium Dosing Weight Chloride 0.103 93.182 kg, MEQ/ML / Sodium Total Volume: Lactate 0.028 1,000, Start MEQ/ML Injectable date: 04/13/17 Solution 15:04:00 DRAWER UPFITTER, Duration: 30 day, Stop date: 05/13/17 15:03:00 DRAWER UPFITTER, 2.15, m2 fentaNYL (ANES) Route: IV, Drug Inactive form: INJ, [address] [facility] , [place] date: 04/13/17 15:01:00 DRAWER UPFITTER midazolam (ANES) Route: IV, Drug Inactive form: SOLN, [address] [facility] , [place] date: 04/13/17 15:01:00 DRAWER UPFITTER acetaminophen Route: IV, Drug Inactive H (ANES) 10 mg form: INJ, [address] [facility] Start date: [facility] 04/13/17 14:45:00 DRAWER UPFITTER, Stop date: 04/13/17 15:45:00 DRAWER UPFITTER Lactated Ringers Route: IV, Inactive Injection IV Total Volume: 2017 [facility] (ANES) 1000 mL 1,000, Start City date: 04/13/17 14:17:00 DRAWER UPFITTER, Stop date: 04/13/17 15:17:00 DRAWER UPFITTER Ropivacaine Notes: (Same No Longer hydrochloride 7.5 as: Naropin) Active 2017 [facility] MG/ML Injectable City Solution Acetaminophen 300 1 - 2 tab, PO, Active MG / Codeine Q4H, PRN Pain, 2017 [place] Phosphate 30 MG X 2 day, # 20 Oral Tablet tab, 0 [Tylenol with Refill(s) Codeine #3] Propofol 70 mg, Route: Inactive IV, ONCE, 2016 [place] Dosing Weight 95.5, kg, Start date: 03/18/17 20:32:00 DRAWER UPFITTER, Stop date: 03/18/17 20:32:00 DRAWER UPFITTER Propofol 95.5 mg, Route: Inactive IVP, ONCE, 2016 [place] Dosing Weight 95.5, kg, Priority: STAT, Start date: 03/18/17 20:06:00 DRAWER UPFITTER, Stop date: 03/18/17 20:06:00 DRAWER UPFITTER Carlinefrbarbara Notes: (Same Inactive as: Zofran) 2016 [place] MEDICATION WASTE Product Size: 4 mg Product Wasted: ___ mg Morphine Notes: (Same Inactive as:MORPhine 2016 [place] Sulfate) oxyCODONE 5 mg 5 mg = 1 tab, Active oral tablet PO, Q4H, PRN 2017 [facility] l Pain Score 4-6, City X 14 day, # 40 tab, 0 Refill(s), given to patient acetaminophen 325 650 mg = 2 tab, Active mg oral tablet PO, Q4H, X 14 2017 [facility] o[facility] day, # 90 tab, City 0 Refill(s), Pharmacy: [facility] Toprol-XL 25 mg Notes: (Same Inactive oral tablet, as: Toprol XL) 2016 [place] extended release Do Not Crush Ci ty Protonix Notes: Tablet Inactive should not be [address] [facility] chewed or [facility] crushed. (Same as: Protonix) levothyroxine Notes: Take 1 Inactive hour before or [address] [facility] 2 hours after [facility] meal; Enteral feeds may interefere with the absorption of this medication.(Gregory e as:Levothroid, Synthroid) ketOROLAC 15 4 days Inactive mg/mL injectable MEDICATION 2016 [place] solution WASTE [place] Product Size: 30 mg Product Wasted: 15 mg simvastatin Notes: (Same No Longer as: Zocor) Active 2016 [facility] melatonin Notes: (Same No Longer as: Melatonin) Active 2016 [facility] albuterol Notes: SEE RT No Longer DOCUMENTATION Active [address] [facility] (Same as: [facility] Proventil) ceFAZolin (SCIP) Notes: Same as: No Longer 01/26 Ancef Active 2016 [facility] Flomax Notes: (Same No Longer As: Flomax) Active [address] [facility] "Do Not Crush" [facility] rasagiline Notes: Same as No Longer Azilect Non Active [address] [facility] Formulary Item [facility] docusate sodium Notes: (Same No Longer H 100 mg oral as: Colace) (Do Active 2016 [facility] rial capsule Not Crush) [facility] NexIUM 40 mg, Route: Inactive PO, Drug form: [address] [facility] ECCAP, BID, [facility] Dosing Weight 96.619, kg, Start date: 01/26/17 17:00:00 CDT, Duration: 30 day, Stop date: 02/25/17 9:00:00 DRAWER UPFITTER ProAir HFA 90 Route: PO, Drug Inactive mcg/inh Form: AERO/A, [address] [facility] inhalation Dosing Weight [facility] aerosol with 96.619, kg, adapter BID, Start date: 01/26/17 17:00:00 CDT, Duration: 30 day, Stop date: 02/25/17 9:00:00 DRAWER UPFITTER cloNIDine 0.1 mg Notes: (Same No Longer oral tablet As: Catapres) [facility] Vasotec Notes: (Same No Longer as: Vasotec-IV) Active 2016 [facility] albuterol 0.083% Notes: SEE RT No Longer inhalation DOCUMENTATION [facility] (Same as: [facility] Proventil) acetaminophen Notes: Do not No Longer exceed 4 Active [address] [facility] gm/day. (Same City as: Tylenol) ropivacaine 400 400 mL, 8 Inactive mL ml/hr, Route: [address] [facility] NERVE BLOCK, [facility] Dosing Weight 96.619, kg, ONCE, Start date: 01/26/17 12:18:00 CDT, Stop date: 01/26/17 12:18:00 CDT ANES ondansetron 4 mg, Route: Inactive H IVP, ONCE, [address] [facility] Dosing Weight [facility] 96.619, kg, PRN Nausea & Vomiting, Start date: 01/26/17 12:12:00 CDT ANES flumazenil 0.2 mg, Route: Inactive IVP, PRN, [address] [facility] Dosing Weight [facility] 96.619, kg, PRN Benzodiazepine Reversal, Initial dose, Start date: 01/26/17 12:12:00 CDT, Duration: 30 day, Stop date: 02/25/17 11:11:00 DRAWER UPFITTER ANES naloxone 0.4 mg, Route: Inactive IVP, Q2MIN, [address] [facility] Dosing Weight [facility] 96.619, kg, PRN Narcotic Reversal, Start date: 01/26/17 12:12:00 CDT, Duration: 8 doses or times, Stop date: Limited # of times ANES albuterol 2.49 mg, Route: Inactive 0.083% inhalation NEB, Q20Min, 2017 [facility] solution Dosing Weight [facility] 96.619, kg, PRN Wheezing, Priority: STAT, Start date: 01/26/17 12:12:00 CDT, Duration: 30 day, Stop date: 02/25/17 11:11:00 DRAWER UPFITTER albuterol (ANES) Route: IV, Drug Inactive form: AERO/A, [address] [facility] ONCE, Stop City date: 01/26/17 12:03:00 CDT glycopyrrolate Route: IV, Drug Inactive (ANES) form: INJ, [address] [facility] ONCE, Stop [place] date: 01/26/17 11:50:00 CDT neostigmine Route: IV, Drug Inactive (ANES) form: INJ, [address] [facility] ONCE, Stop City date: 01/26/17 11:50:00 CDT oxyCODONE 5 mg Notes: (Same No Longer oral tablet as: Roxicodone) Active 2016 [facility] ondansetron Route: IV, Drug Inactive (ANES) form: INJ, [address] [facility] ONCE, Stop City date: 01/26/17 11:30:00 CDT famotidine (ANES) Route: IV, Drug Inactive 01/26 form: INJ, [address] [facility] ONCE, Stop City date: 01/26/17 11:30:00 CDT ondansetron Notes: (Same No Longer as: Zoan) Active [address] [facility] MEDICATION City WASTE Product Size: 4 mg Product Wasted: ___ mg Lactated Ringers 1,000 mL, Rate: No Longer 01/26 1,000 mL 100 ml/hr, Active [address] [facility] Infuse over: 10 City hr, Route: IV, Dosing Weight 96.619 kg, Total Volume: 1,000, Start date: 01/26/17 11:29:00 CDT, Duration: 30 day, Stop date: 02/25/17 11:28:00 DRAWER UPFITTER lidocaine (ANES) Route: IV, Drug Inactive form: INJ, [address] [facility] ONCE, date: 01/26/17 11:25:00 CDT fentaNYL (ANES) Route: IV, Drug Inactive form: INJ, [address] [facility] ONCE date: 01/26/17 11:25:00 CDT rocuronium (ANES) Route: IV, Drug Inactive 01/26 form: INJ, [address] [facility] ONCE, date: 01/26/17 11:25:00 CDT propofol (ANES) Route: IV, Drug Inactive form: INJ, [address] [facility] ONCE, date: 01/26/17 11:25:00 CDT succinylcholine Route: IV, Drug Inactive (ANES) form: INJ, [address] [facility] ONCE, date: 01/26/17 11:15:00 CDT ropivacaine 250 Dosincc/hr, Inactive mL Route: NERVE [address] [facility] BLOCK, Start City date: 01/26/17 11:01:00 CDT 250 mL, Dosing Weight 96.619, kg, Duration: 30 day, Stop date: 02/25/17 10:00:00 DRAWER UPFITTER ANES meperidine 12.5 mg, Route: Inactive IVP, Q30Min, [address] [facility] Dosing Weight City 96.619, kg, PRN Other -See Comment, For shivering, Start date: 01/26/17 10:59:00 CDT, Duration: 2 doses or times, Stop date: Limited # of times ANES ondansetron 4 mg, Route: Inactive H IVP, ONCE, [address] [facility] Dosing Weight [facility] 96.619, kg, PRN Nausea & Vomiting, Start date: 01/26/17 10:59:00 CDT ANES promethazine 6.25 mg, Route: Inactive 01/26 [facility] IVPB, ONCE, [address] [facility] Dosing Weight [facility] 96.619, kg, PRN Nausea & Vomiting, Start date: 01/26/17 10:59:00 CDT ANES albuterol 2.49 mg, Route: Inactive 0.083% inhalation NEB, Q20Min, 2017 [facility] solution Dosing Weight [facility] 96.619, kg, PRN Wheezing, Priority: STAT, Start date: 01/26/17 10:59:00 CDT, Duration: 30 day, Stop date: 02/25/17 9:58:00 DRAWER UPFITTER ANES flumazenil 0.2 mg, Route: Inactive 01/26[facility] IVP, PRN, [address] [facility] Dosing Weight [facility] 96.619, kg, PRN Benzodiazepine Reversal, Initial dose, Start date: 01/26/17 10:59:00 CDT, Duration: 30 day, Stop date: 02/25/17 9:58:00 DRAWER UPFITTER ANES 0.5 mg, Route: Inactive HYDROmorphone IVP, Q5Min, 2016 [facility] Dosing Weight [facility] 96.619, kg, PRN Pain Score 7-10, Start date: 01/26/17 10:59:00 CDT, Duration: 4 doses or times, Stop date: Limited # of times ANES labetalol 10 mg, Route: Inactive 01/26[facility] IVP, Q5Min, [address] [facility] Dosing Weight [facility] 96.619, kg, PRN Elevated BP, Start date: 01/26/17 10:59:00 CDT, Duration: 5 doses or times, Stop date: Limited # of times ANES naloxone 0.4 mg, Route: Inactive 01/26[facility] IVP, Q2MIN, [address] [facility] Dosing Weight [facility] 96.619, kg, PRN Narcotic Reversal, Start date: 01/26/17 10:59:00 CDT, Duration: 8 doses or times, Stop date: Limited # of times acetaminophen Route: IV, Drug Inactive H (ANES) (ANES) form: INJ, 2016 [facility] l Start date: [facility] 01/26/17 10:40:00 CDT, Stop date: 01/26/17 11:40:00 CDT phenylephrine Route: IV, Drug Inactive H (ANES) form: INJ, [address] [facility] ONCE, Stop City date: 01/26/17 10:32:00 CDT ePHEDrine (ANES) Route: IV, Drug Inactive form: INJ, [address] [facility] ONCE, Stop City date: 01/26/17 10:32:00 CDT ceFAZolin (ANES) Route: IV, Drug Inactive (ANES) form: INJ, [address] [facility] Start date: [facility] 01/26/17 10:00:00 CDT, Stop date: 01/26/17 11:00:00 CDT LR 1000 mL INJ Route: IV, Inactive (ANES) Total Volume: [address] [facility] 1,000, Start City date: 01/26/17 9:53:00 CDT, Stop date: 01/26/17 10:53:00 CDT ceFAZolin 2 gm + Notes: (Same No Longer sterile water 20 As: Ancef, Active 2016 [place] mL Kefzol) [facility] MEDICATION WASTE Product Size: 1000 mg Product Wasted: ___ mg Asmanex HFA See Active Instructions, [address] [facility] INHALATION BID, [facility] 0 Refill(s) ProAir HFA 1 - 2 puffs, Active PO, BID, # [address] [facility] ea, 0 Refill(s) [facility] metoprolol 25 mg 25 mg = 1 tab, Active oral tablet, PO, Daily, # 90 2016 [facility] extended release tab, 0 City Refill(s) Melatonin 10 mg 10 mg = 1 cap, Active M H oral capsule PO, Bedtime, 0 2016 [place] Refill(s) [facility] rasagiline 1 mg 1 mg = 1 tab, Active oral tablet PO, QPM, # 30 2016 [facility] tab, 6 City Refill(s) CoQ10 200 mg, PO, Active QPM, [address] [facility] Refill(s) [facility] simvastatin 40 mg 40 mg = 1 tab, Active oral tablet PO, Bedtime, # 2017 [facility] 90 tab, 1 City Refill(s) Esomeprazole 40 40 mg = 1 cap, Active H [facility] MG Enteric Coated PO, BID, # 1 2016 Capsule [Nexium] caplet, 0 Refill(s), other Trazodone 100 mg = 1 tab, Active [facility] Hydrochloride 100 PO, Bedtime, 2016 MG Oral Tablet PRN Insomnia, # 30 tab, 1 Refill(s), Pharmacy: [facility] Ventolin HFA 90 2 puff, Active [facility] mcg/inh INHALER, Q6H, 2016 inhalation PRN wheezing, aerosol with coughing, or adapter shortness of breath, Dispense quantity sufficient for 100 uses., # 1 ea, 1 Refill(s), Pharmacy: [facility] multivitamin with PO, Daily, 0 Active H [facility] minerals Refill(s) 2016 psyllium 3.4 1 pkt, PO, Active [facility] g/5.8 g oral Daily, 0 2016 powder Refill(s) senna 8.6 mg oral 17.2 mg = 2 Active [facility] tablet tab, PO, QNoon, 2016 0 Refill(s) Thyroxine Notes: Take 1 No Longer [facility] hour before or Active 2015 2 hours after meal; Enteral feeds may interefere with the absorption of this medication.(Gregory e as:Levothroid, Synthroid) Maalox Advanced Notes: Inactive [facility] Regular Strength (aluminum 2016 SUSP hydroxide-magne sium hyd-simethicone [id number]/5m l 30 ml ud IMTIAZ) Acetaminophen Notes: Do not No Longer [facility] exceed 4 Active 2015 gm/day. (Same as: Tylenol) Tylenol Notes: Do not No Longer [facility] exceed 4 Active 2015 gm/day. (Same as: Tylenol) senna 8.6 mg oral Notes: (Same No Longer 03/19/ MH [facility] tablet as: Senokot) Active 2015 Metamucil Notes: (Same No Longer 03/19/ MH [facility] as: Konsyl) Active 2015 Mix in 8 oz liquid with meal. aspirin 81 mg Notes: Do not No Longer 12/25/ MH [facility] tablet, enteric crush or chew. Active 2015 coated (Same As: Ecotrin) Ceftriaxone Notes: (Same Inactive [facility] As: Rocephin). 2016 Use with 100 mL NS and infuse over 30 min MEDICATION WASTE Product Size: 1000 mg Product Wasted: _0__ mg Enoxaparin Notes: (Same No Longer MH [facility] as: Lovenox) Active 2015 Thiamine Notes: (Same No Longer [facility] As: Vitamin B1) Active 2015 Flomax Notes: (Same No Longer [facility] As: Flomax) Active 2015 "Do Not Crush" POLYETHYLENE Notes: Dissolve No Longer 12/ M H [facility] GLYCOL 3350 in 8 oz of Active 2015 water or juice. (Same as: Miralax) M.V.I. Adult 1 tab, Route: No Longer 03/18/ MH [facility] PO, Dosing Active 2015 Weight 87.136, kg, Daily, Start date: 03/18/16 8:30:00 DRAWER UPFITTER, Duration: 30 day, Stop date: 04/16/16 8:30:00 DRAWER UPFITTER Thyroxine Notes: Take 1 No Longer 03/18/ MH [facility] hour before or Active 2015 2 hours after meal; Enteral feeds may interefere with the absorption of this medication.(Gregory e as:Levothroid, Synthroid) Folic Acid Notes: (Same No Longer 03/18/ MH [facility] as: Folvite) Active 2015 Cymbalta Notes: (Same No Longer 03/18/ MH [facility] as: Cymbalta) Active 2015 (Do Not Crush) Vitamin B 12 Notes: (Same No Longer 03/18/ MH [facility] As: Vitamin Active 2015 B-12) Aspirin Notes: Take Inactive 03/18/ MH [facility] with food. 2016 ascorbic acid Notes: (Same No Longer 03/18/ MH [facility] as: Vitamin C) Active 2015 multivitamin with Notes: (Same No Longer 12/24/ MH [facility] minerals as:Thera-M, Active 2016 Theragran-M) WASTE: F/P - Black; E - Municipal Trash Bin Give with food. Trazodone Notes: (Same No Longer [facility] Hydrochloride 100 As: Desyrel) Active 2016 MG Oral Tablet pantoprazole Notes: Tablet No Longer [facility] should not be Active 2015 chewed or crushed. (Same as: Protonix) Clotrimazole 10 Notes: For No Longer [facility] MG/ML Topical external use Active 2016 Cream only. (Same As: Lotrimin AF, Mycelex) atorvastatin Notes: (Same No Longer [facility] as: Lipitor) Active 2015 Acetaminophen Notes: Do not No Longer [facility] exceed 4 Active 2016 gm/day. (Same as: Tylenol) Levetiracetam 1,500 mg, Inactive [facility] Route: IV, PRN, 2016 Dosing Weight 87.136, kg, PRN Seizure, Start date: 03/17/16 19:09:00 DRAWER UPFITTER, Duration: 30 day, Stop date: 04/16/16 19:08:00 DRAWER UPFITTER Midazolam 40 kg No Longer [facility] Active 2015 Bisacodyl Notes: (Same No Longer [facility] As: Dulcolax, Active 2015 Bisco-Lax) Albuterol 0.83 Notes: SEE RT No Longer H [facility] MG/ML Inhalant DOCUMENTATION Active 2015 Solution (Same as: Proventil) Trazodone 100 mg = 1 tab, On Hold [place] as Hydrochloride 100 PO, Bedtime, 0 2015 Medical MG Oral Tablet Refill(s) Center thiamine 100 mg 100 mg = 1 tab, On Hold [place] oral tablet PO, Daily, 0 2015 Medical Refill(s) Center POLYETHYLENE PO, Daily, 0 On Hold [place] as GLYCOL 3350 Refill(s) 2016 Medical [place] pantoprazole 40 40 mg = 1 tab, On Hold H [place] mg oral enteric PO, BID, 0 2015 Medic al coated tablet Refill(s) [place] Menthol 0.0044 1 appl, TOP, On Hold [...] Hold [place] Oral Tablet PO, Daily, 0 2016 Medical Refill(s) [place] enoxaparin 40 40 mg = 0.4 mL, On Hold [place] mg/0.4 mL SUB-Q, 2016 Medical subcutaneous [id number], 0 [place] solution Refill(s) cyanocobalamin 1,000 microgram On Hold [place] 1000 mcg = 1 tab, PO, 2016 Medical sublingual tablet Daily, 0 Cente r Refill(s) 168 HR Clonidine 1 patch, TOP, On Hold [place] 0.48385 MG/HR Q7D, 0 2016 Medical Transdermal Patch Refill(s) Cent er [[id number]] Clotrimazole 10 1 appl, TOP, On Hold [facility] MG/ML Topical BID, 0 2015 Medical Cream Refill(s) [place] cefTRIAXone 2 g 2 gm, IVPB, On [place] injection [id number], 0 2015 Medical Refill(s) [place] benzonatate 100 200 mg = 2 cap, On Hold [place] mg oral capsule PO, TID, 0 2015 Medic al Refill(s) [place] atorvastatin 40 80 mg = 2 tab, On Hold H [place] mg oral tablet PO, Bedtime, 0 2016 Me dical Refill(s) [place] ascorbic acid 500 500 mg = 1 tab, On Hold [place] mg oral tablet CHEW, Daily, 0 2015 Me dical Refill(s) [place] Aspirin 325 mg = 1 tab, On Hold [place] PO, Daily, 0 2016 Medical Refill(s) [place] acetaminophen 500 1,000 mg = 2 On Hold H [place] mg oral tablet tab, PO, Q6H, 2016 Med ical PRN Pain Score Center 6-10, 0 Refill(s) Ativan Notes: (Same No Longer [place] as: Ativan) Active 2015 Medical Center Ceftriaxone Notes: (Same No Longer [place] As: Rocephin). Active 2015 Medical Use with 100 mL Center NS and infuse over 30 min MEDICATION WASTE Product Size: 2000 mg Product Wasted: ___ mg Miralax Notes: Dissolve No Longer [place] as in 8 oz of Active 2015 Medical water or juice. Center (Same as: Miralax) glycerin adult 1 supp, Route: No Longer [place] rectal MN, Drug Form: Active 2015 Medical suppository SUPP, Dosing Center Weight 88.636, kg, Daily, PRN Constipation, Start date: 03/15/16 10:23:00 DRAWER UPFITTER, Duration: 30 day, Stop date: 04/14/16 10:22:00 DRAWER UPFITTER Vancomycin 2001 mg: No Longer [place] infuse over 2.5 Active 2015 Medical hours Center MEDICATION WASTE Product Size: 1000 mg Product Wasted: ___ mg Zosyn Notes: (Same No Longer [place] as: Zosyn) Active 2015 Medical Dosing based on Center Piperacillin component MEDICATION WASTE Product Size: 3375 mg Product Wasted: ___ mg Protonix Notes: Tablet No Longer [place] should not be Active 2015 Medical chewed or Center crushed. (Same as: Protonix) Earlene Mendoza Notes: (Same No Longer [place] [facility] As: Earlene Active 2015 Medical [place]) "Do Not Center Crush" Vitamin C Notes: (Same No Longer [place] as: Vitamin C) Active 2015 Medical Center Vitamin B12 1,000 No Longer [place] microgram, Active 2015 Medical Route: PO, Drug Center form: TAB, Daily, Dosing Weight 88.636, kg, Start date: 03/13/16 9:00:00 DRAWER UPFITTER, Duration: 30 day, Stop date: 04/11/16 9:00:00 DRAWER UPFITTER Thiamine 100 mg, Route: No Longer [place] as PO, Drug form: Active 2016 Medical TAB, Daily, Center Dosing Weight 88.636, kg, Start date: 03/13/16 9:00:00 DRAWER UPFITTER, Duration: 30 day, Stop date: 04/11/16 9:00:00 DRAWER UPFITTER Vitamin C Notes: (Same Inactive [place] as: Vitamin C) 2016 Medical Center Vitamin B12 Notes: (Same No Longer [place] As: Vitamin Active 2015 [facility] B-12) Center Thiamine Notes: (Same No Longer [...] No Longer [place] as: Active 2015 [facility] Calmoseptine) Center Clotrimazole 10 Notes: For No [...] changed every 24hr. potassium Notes: (Same Inactive [place] chloride as: KCL) 2015 Medical Infuse no Center faster than 10 mEq/hr if given peripherally. [place] S PH-7.4 Notes: (Same Inactive 03/08/ H [place] ([place]) IV as: Isolyte S 2016 Medical PH7.4) Center Ergocalciferol Notes: (Same Inactive [place] [address] UNT Oral as: Vitamin D) 2016 Me dical Capsule "Do Not Crush" Center potassium Notes: (Same Inactive [place] chloride as: KCL) 2015 Medical Infuse no Center faster than 10 mEq/hr if given peripherally. TPN solution, Notes: Per [place] Longer [place] adult 900 mL hospital Active 2015 Medical policy, bag Center must be changed every 24hr. Dextrose 50% 12.5 gm, 25 mL, No Longer [place] Syringe Route: IVP, Active 2015 Medical Drug Form: INJ, Center Dosing Weight 88.636, kg, PRN, PRN Blood Glucose Results, Start date: 03/07/16 16:09:00 DRAWER UPFITTER, Duration: 30 day, Stop date: 04/06/16 16:08:00 DRAWER UPFITTER Glucagon 1 mg, Route: No Longer [place] IM, Drug form: Active 2015 Medical PDR/INJ, PRN, Center Dosing Weight 88.636, kg, PRN Blood Glucose Results, Start date: 03/07/16 16:09:00 DRAWER UPFITTER, Duration: 30 day, Stop date: 04/06/16 16:08:00 DRAWER UPFITTER Insulin, Aspart, Notes: Roll in No Longer [place] Human palms of hands Active 2015 Medical gently; Do not Center shake vigorously. (Same as: NovoLOG) "single patient use only" WASTE: F/P - Black; E - Municipal Trash Bin Stable for 28 days at room temperature. Expires in days from D ate potassium Notes: (Same Inactive [place] chloride as: KCL) 2015 Medical Infuse no Center faster than 10 mEq/hr if given peripherally. Isolyte S PH-7.4 Notes: (Same No Longer [place] ([place]) IV as: Isolyte S Active 2015 Medical PH7.4) Center TPN solution, Notes: Per [place] Longer [place] 900 mL [facility] Active 2015 Medical policy, bag Center must be changed every 24hr. remove patch Notes: Remove No Longer [place] old patch Active 2015 Medical before Center application of new patch. Isolyte S PH-7.4 Notes: (Same Inactive H [place] ([place]) IV as: Isolyte S 2015 Medical PH7.4) Center potassium Notes: (Same Inactive [place] phosphate + as: K 2015 Medical sodium chloride Phosphate.) 1 C enter 0.9% INJ 250 mL mMol phoshate has 1.47 mEq potassium Infuse over 4 hours atorvastatin Notes: (Same No Longer [place] as: Lipitor) Active 2016 [facility] PH-7.4 Notes: (Same Inactive [place] [facility] ([place]) IV as: [facility] S 2016 [facility] PH7.4) Center TPN solution, Notes: [place] 900 [place] hospital Active 2016 Medical policy, bag Center must be changed every 24hr. potassium Notes: (Same Inactive [place] phosphate + as: K 2015 Medical sodium chloride Phosphate.) 1 C enter 0.9% INJ 250 mL mMol phoshate has 1.47 mEq potassium Infuse over 4 hours potassium Notes: (Same Inactive [facility] chloride as: KCL) 2015 Medical Infuse no Center faster than 10 mEq/hr if given peripherally. potassium Notes: (Same Inactive [facility] chloride as: KCL) 2015 Medical Infuse no Center faster than 10 mEq/hr if given peripherally. potassium Notes: (Same Inactive [facility] phosphate + as: K 2015 Medical sodium chloride Phosphate.) 1 C enter 0.9% INJ 250 mL mMol phoshate has 1.47 mEq potassium Infuse over 4 hours potassium Notes: (Same Inactive [facility] chloride as: KCL) 2015 Medical Infuse no Center faster than 10 mEq/hr if given peripherally. Trazodone Notes: (Same [place] Hydrochloride 100 As: Desyrel) Active 2015 edical MG Oral Tablet Center [facility] PH-7.4 Notes: (Same Inactive [facility] ([place]) IV as: [facility] S [address] [place] [address] PH 7.4) Center TPN solution, Notes: [place] 900 mL hospital Active 2016 Medical policy, bag Center must be changed every 24hr. potassium Notes: (Same Inactive [facility] phosphate + as: K 2015 Medical sodium chloride Phosphate.) 1 C enter 0.9% INJ 250 mL mMol phoshate has 1.47 mEq potassium Infuse over 4 hours potassium 2 pkt, Route: [place] phosphate-sodium PO, Dosing 2016 Medi ofelia phosphate 250 Weight 88.636, Geoff ter mg-280 mg-160 mg kg, ONCE, Start oral powder for date: 03/04/16 reconstitution 11:29:00 DRAWER UPFITTER, Stop date: 03/04/16 11:29:00 DRAWER UPFITTER potassium Notes: (Same Inactive [facility] chloride as: KCL) 2015 Medical Infuse no Center faster than 10 mEq/hr if given peripherally. potassium Notes: (Same Inactive [facility] phosphate + as: K 2015 [facility] sodium chloride Phosphate.) 1 C enter 0.9% INJ 250 mL mMol phoshate has 1.47 mEq potassium Infuse over 4 hours Isolyte S PH-7.4 Notes: (Same Inactive [facility] ([place]) IV as: Isolyte S 2016 [facility] PH 7.4) Center TPN solution, Notes: Per [place] Longer [place] 900 mL hospital Active 2015 Medical policy, bag Center must be changed every 24hr. potassium 10 mEq, Route: Inactive [place] as chloride IVPB, Q1H, 2015 Medical Dosing Weight Center 88.636, kg, Total Dose = 40 meq, Start date: 03/03/16 17:00:00 DRAWER UPFITTER, Duration: 4 doses or times, Stop date: 03/03/16 20:00:00 DRAWER UPFITTER, Peripheral Line Dilaudid Notes: Same as Inactive [facility] Dilaudid 2015 Medical Center Synthroid Notes: (Same No Longer [facility] s as: Synthroid) Active 2016 Medical Center potassium Notes: (Same Inactive [facility] phosphate-sodium as: Phos-NaK) 2015 edical phosphate Each 1.5 gm pkt Center has 250mg phosphorous. Mix w/2.5oz water and stir. potassium Notes: (Same Inactive [facility] chloride as: KCL) 2015 Medical Infuse no Center faster than 10 mEq/hr if given peripherally. potassium 10 mEq, Route: Inactive [place] as chloride IVPB, Q1H, 2015 Medical Dosing Weight Center 88.636, kg, Total Dose = 40 meq, Start date: 03/03/16 8:00:00 DRAWER UPFITTER, Duration: 4 doses or times, Stop date: 03/03/16 11:00:00 DRAWER UPFITTER, Peripheral Line Calmoseptine Notes: (Same No Longer [...] Medical Posiflush) Center Iohexol Notes: (Same Inactive [place] as:Omnipaque 2015 Medical 350). WASTE: Center F/P - Black; E - Municipal Trash Bin Isolyte S PH-7.4 Notes: (Same Inactive [place] ([place] IV as: Isolyte S 2015 Medical PH 7.4) Center Isolyte S (PH Notes: (Same No Longer [place] 7.4) 1000 mL 1000 as: Isolyte S Active 2015 Medical mL PH 7.4) Center Isolyte S PH-7.4 Notes: (Same Inactive H [place] ([place] IV as: Isolyte S 2015 Medical PH 7.4) Center Insulin regular 60 units) No Longer [place] WASTE: F/P - Active 2015 Medical Black; E - Center Municipal Trash Bin Stable for 28 days at room temperature Expires in days from D ate Dextrose 50% 12.5 gm, 25 mL, No Longer H [place] Syringe Route: IVP, Active 2015 Medical Drug Form: INJ, Center Dosing Weight 88.636, kg, PRN, PRN Abnormal Lab Result, Start date: 02/29/16 19:10:00 DRAWER UPFITTER, Duration: 30 day, Stop date: 03/30/16 19:09:00 DRAWER UPFITTER, For FSBG 40 mg/dL - 60 mg/dL Reglan Notes: (Same No Longer [facility] as: Reglan) Active 2016 Medical Center potassium Notes: (Same Inactive [facility] chloride as: KCL) 2016 Medical Infuse no Center faster than 10 mEq/hr if given peripherally. potassium Notes: (Same Inactive [facility] chloride as: KCL) 2016 Medical Infuse no Center faster than 10 mEq/hr if given peripherally. Morphine Notes: (Same Inactive [facility] as:MORPhine 2015 [facility] Sulfate) Center Xopenex Notes: SEE RT No Longer [facility] DOCUMENTATION Active 2016 Medical (Same Center as:Xopenex) Non-Formulary D5NS 1,000 mL 1,000 mL, Rate: No Longer [facility] 50 ml/hr, Active 2015 Medical Infuse over: 20 Center hr, Route: IV, Dosing Weight 88.636 kg, Total Volume: 1,000, Start date: 02/29/16 14:34:00 DRAWER UPFITTER, Duration: 30 day, Stop date: 03/30/16 14:33:00 DRAWER UPFITTER Vancomycin 2001 mg: No Longer [facility] infuse over 2.5 Active 2015 Medical hours Center MEDICATION WASTE Product Size: 1000 mg Product Wasted: ___ mg Golytely Notes: No Longer [facility] (polyethylene Active 2015 [facility] glycol [place] electrolyte solution 4 Liter bottle) (Same as: Golytely, Colyte) Bisacodyl Notes: (Same No Longer [place] As: Dulcolax, Active 2015 [facility] Bisco-Lax) Center Reglan Notes: (Same No Longer [facility] as: Reglan) Active 2016 [facility] Lactulose 1,000 ml, Inactive [facility] Route: MN, Drug 2016 Medical Form: NICHOLAS, [place] Dosing Weight 88.636, kg, ONCE, Start date: 02/28/16 10:04:00 DRAWER UPFITTER, Duration: 1 doses or times, Stop date: 02/28/16 10:04:00 DRAWER UPFITTER, 300 mL lactulose + 700 mL water 168 HR Clonidine Notes: Patch No Longer [facility] 0.24487 MG/HR delivers 0.2 Active 2015 Medic al Transdermal Patch mg/24 hours; C enter [[id number]] Patch is applied weekly. "Remove old patch before application of new patch" (Same As: [id number]-5) Thiamine Notes: (Same No Longer [facility] As: Vitamin B1) Active 2015 Medical Center Acetaminophen Notes: Max [place] Longer [place] acetaminophen Active 2015 Medical 4000 mg/day (4 Center gm/day). (Same as: Tylenol Extra Strength) mineral oil Notes: (Same No Longer [place] as:Fleet Active 2015 [facility] Mineral Oil Center Enema) iodixanol 92 mL, Route: [place] IVP, Drug Form: 2015 Medical SOLN, Dosing Center Weight 88.636, kg, ONCALL, STAT, Start date: 02/27/16 15:46:00 DRAWER UPFITTER, Duration: 1 doses or times, Dose = 2.2ml/kg, Max dose = 100ml -- "To be infused by Radiology Staff ONLY" Zosyn Notes: (Same No Longer [place] as: Zosyn) Active 2015 Medical Dosing based on Center Piperacillin component MEDICATION WASTE Product Size: 3375 mg Product Wasted: _0__ mg Vancomycin 2001 mg: No Longer [place] infuse over 2.5 Active 2015 Medical hours Center MEDICATION WASTE Product Size: 1000 mg Product Wasted: ___ mg Insulin, Aspart, Notes: Roll in No Longer [facility] Human palms of hands Active 2015 Medical gently; Do not Center shake vigorously. (Same as: NovoLOG) "single patient use only" WASTE: F/P - Black; E - Municipal Trash Bin Stable for 28 days at room temperature. Expires in days from D ate Dextrose 50% 25 gm, 50 mL, No Longer [facility] Syringe Route: IVP, Active 2015 Medical Drug Form: INJ, Center Dosing Weight 88.636, kg, PRN, PRN Blood Glucose Results, Start date: 02/27/16 12:47:00 DRAWER UPFITTER, Duration: 30 day, Stop date: 03/28/16 12:46:00 DRAWER UPFITTER Glucagon 1 mg, Route: No Longer [facility] IM, Drug form: Active 2016 Medical PDR/INJ, PRN, Center Dosing Weight 88.636, kg, PRN Blood Glucose Results, Start date: 02/27/16 12:47:00 DRAWER UPFITTER, Duration: 30 day, Stop date: 03/28/16 12:46:00 DRAWER UPFITTER D5NS 1,000 mL 1,000 mL, Rate: No Longer [place] 100 ml/hr, Active 2015 Medical Infuse over: 10 Center hr, Route: IV, Dosing Weight 88.636 kg, Total Volume: 1,000, Start date: 02/27/16 12:29:00 DRAWER UPFITTER, Duration: 30 day, Stop date: 03/28/16 12:28:00 DRAWER UPFITTER Sodium Chloride 1,000 mL, 1,000 Inactive [place] 0.154 MEQ/ML ml/hr, Infuse 2016 Medic al Injectable Over: 1 hr, Center Solution Route: IV, 1,000, Drug form: INJ, ONCE, Priority: STAT, Dosing Weight 88.636 kg, Start date: 02/27/16 10:43:00 DRAWER UPFITTER, Duration: 1 doses or times, Stop date: 02/27/16 10:43:00 DRAWER UPFITTER Protonix 40 mg, Route: [place] Longer [place] IVP, Drug form: Active 2015 Medical INJ, BID, Center Dosing Weight 88.636, kg, Start date: 02/27/16 9:00:00 DRAWER UPFITTER, Duration: 30 day, Stop date: 03/27/16 17:00:00 DRAWER UPFITTER Sodium Chloride 1,000 mL, 1,000 Inactive [place] 0.154 MEQ/ML ml/hr, Infuse 2016 Medic al Injectable Over: 1 hr, Center Solution Route: IV, 1,000, Drug form: INJ, ONCE, Priority: STAT, Dosing Weight 88.636 kg, Start date: 02/27/16 8:57:00 DRAWER UPFITTER, Duration: 1 doses or times, Stop date: 02/27/16 8:57:00 DRAWER UPFITTER Erythromycin Notes: (Same No Longer [place] as: Active 2016 [facility] erythromycin Center lactobionate) Metoprolol Notes: (Same [place] as: Lopressor) 2016 Medical Push over 2 Center minutes Lactulose Notes: (Same Inactive [place] as:Chronulac) 2016 Medical Center magnesium citrate Notes: (Same Inactive [place] 58.2 MG/ML Oral as: Citrate of 2015 edical Solution Magnesia) Center Concentration: 1.745 gm / 30 mL Simethicone Notes: (Same [place] Longer [place] as: Mylicon) Active [address] [place] [address] gabapentin 100 MG Notes: (Same No Longer [facility] Oral Capsule as: Neurontin) Active 2016 [facility] magnesium citrate Notes: (Same Inactive [place] 58.2 MG/ML Oral as: Citrate of 2015 edical Solution Magnesia) Center Concentration: 1.745 gm / 30 mL Simethicone Notes: (Same [place] Longer [place] as: Mylicon, Active 2016 [facility] Phazyme, Center Genasyme) molasses Notes: (Same No Longer [place] as:Molasses) Active [address] [place] [address] Bisacodyl Notes: (Same Inactive [place] As: Dulcolax, 2016 [facility] Bisco-Lax) Center Aspirin Notes: Take No Longer [place] with food. Active 2016 [facility] Miralax Notes: Dissolve No Longer [place] as in 8 oz of Active 2016 [facility] water or juice. Center (Same as: Miralax) Lovenox Notes: (Same No Longer [place] as: Lovenox) Active [address] [place] [address] Lipitor Notes: (Same No Longer [place] as: Lipitor) Active [address] [place] [address] Aspirin 325 MG Notes: Take Inactive [place] Oral Tablet with food. 2016 [facility] aspirin 81 mg Notes: Take Inactive [place] tablet, chewable with food. 2016 [facility] iodixanol 100 mL, Route: Inactive [place] as IVP, Drug Form: [address] [place] [address] SOLN, Dosing Center Weight 88.636, kg, ONCALL, STAT, Start date: 02/23/16 16:52:00 DRAWER UPFITTER, Duration: 1 doses or times, Dose = 2.2ml/kg, Max dose = 150ml -- "To be infused by Radiology Staff ONLY" Iohexol Notes: (Same Inactive [place] as:Omnipaque 2016 Medical 350). WASTE: Center F/P - Black; E - Municipal Trash Bin Vitamin D2 Notes: (Same [place] as: Vitamin D) 2016 Medical "Do Not Crush" Center Vitamin D3 50,000 Inactive [place] IntlUni2015 Medical Route: PO, Center ONCE, Dosing Weight 88.636, kg, Start date: 02/22/16 11:32:00 DRAWER UPFITTER, Stop date: 02/22/16 11:32:00 DRAWER UPFITTER Docusate Sodium Notes: (Same No Longer H [place] 100 MG Oral as: Colace) Active 2015 Medical Capsule [Colace] Center Flomax Notes: (Same No Longer [place] As: Flomax) Active 2015 Medical "Do Not Crush" Center gabapentin 300 MG Notes: (Same No Longer [place] Oral Capsule as: Neurontin) Active 2015 [facility] multivitamin Notes: (Same No Longer [place] as:Thera) Active 2015 Medical WASTE: F/P - Center Black; E - Municipal Trash Bin Take with food. Thyroxine Notes: Take 1 No Longer [place] as hour before or Active 2015 Medical 2 hours after Center meal; Enteral feeds may interefere with the absorption of this medication.(Gregory e as:Levothroid, Synthroid) Nexium 40 mg, Route: No Longer [place] PO, Drug form: Active 2015 Medical ECCAP, Daily, Center Dosing Weight 88.636, kg, Start date: 02/22/16 9:00:00 DRAWER UPFITTER, Duration: 30 day, Stop date: 03/22/16 9:00:00 DRAWER UPFITTER Cymbalta Notes: (Same No Longer [place] as: Cymbalta) Active 2015 Medical (Do Not Crush) Center Vitamin D3 50,000 Inactive [place] IntlUnit2015 Medical Route: PO, Center ONCE, Dosing Weight 88.636, kg, Start date: 02/22/16 7:42:00 DRAWER UPFITTER, Stop date: 02/22/16 7:42:00 DRAWER UPFITTER Morphine Notes: (Same No Longer as:MORPhine Active 2015 Medical Sulfate) Center Acetaminophen 300 Notes: Do not No Longer [place] MG / Codeine exceed 4gm/day Active 2015 [facility] Phosphate 30 MG of Center Oral Tablet acetaminophen. [Tylenol with (Same as: Codeine #3] Tylenol with Codeine # 3) Protonix Notes: Tablet No Longer [place] should not be Active 2015 [facility] chewed or Center crushed. (Same as: Protonix) gabapentin 300 MG Notes: (Same Inactive [place] Oral Capsule as: Neurontin) 2015 [facility] Vitamin D3 50,000 Vitamin D3 Inactive [place] IntlUnit 50,000 2016 Medical IntlUnit, 1 Center tab, Drug form: MISC, Route: PO, ONCE, 02/21/16 23:10:00 DRAWER UPFITTER, Stop date: 02/21/16 23:10:00 DRAWER UPFITTER Simvastatin Notes: (Same [place] Longer [place] as: Zocor) Active 2015 [facility] albumin human 5% 500 mL, Route: Inactive [place] intravenous IV, Dosing 2015 [facility] solution Weight 88.636, Center kg, ONCE, Start date: 02/21/16 20:46:00 DRAWER UPFITTER, Stop date: 02/21/16 20:46:00 DRAWER UPFITTER Flumazenil Notes: (Same No Longer [place] as as: Romazicon) Active 2015 [facility] Hydromorphone Notes: Same as No Longer H [place] Dilaudid Active 2015 [facility] Labetalol 10 mg, 2 mL, [place] Longer [place] Route: IVP, Active 2015 Medical Drug form: INJ, Center Q5Min, Dosing Weight 88.636, kg, PRN Elevated BP, Start date: 02/21/16 20:05:00 DRAWER UPFITTER, Duration: 5 doses or times, Stop date: Limited # of times Naloxone Notes: Same as No Longer [place] as Narcan Active 2015 [facility] Ondansetron Notes: (Same [place] Long[place] as: Zofran) Active 2015 Medical MEDICATION Center WASTE Product Size: 4 mg Product Wasted: ___ mg Ancef Notes: Same as: No Longer [place] as Ancef Active 2015 [facility] tramadol Notes: Not to [place] Longer [place] hydrochloride 50 exceed Active 2016 Medical MG Oral Tablet 400mg/day. Center (Same As: [facility]) Morphine Notes: Dose: No Longer [place] Delay: Active 2015 Medical Basal Center rate: 4hr limit: (Same as:Jesus) Vitamin D3 50,000 Inactive [place] IntlUnit, 2015 Medical Route: PO, Center ONCE, Dosing Weight 88.636, kg, Start date: 02/21/16 19:26:00 DRAWER UPFITTER, Stop date: 02/21/16 19:26:00 DRAWER UPFITTER Naloxone Notes: Same as No Longer [place] as Narcan Active 2016 Medical Center Isolyte S (PH Notes: (Same No Longer [place] 7.4) 1000 mL as: Isolyte S Active 2015 Medic al 1,000 mL PH 7.4) Center Oxycodone Notes: (Same [place] Longer [place] as: Roxicodone) Active 2015 Medical Center Naloxone Notes: Same as No Longer [place] as Narcan Active 2016 Medical Center Flumazenil Notes: (Same No Longer [place] as as: Romazicon) Active 2015 Medical Center Ondansetron Notes: (Same [place] Long[place] as: Zofran) Active 2015 Medical MEDICATION Center WASTE Product Size: 4 mg Product Wasted: ___ mg Hydromorphone Notes: Same as No Longer [facility] Dilaudid Active 2016 Medical Center Labetalol 10 mg, 2 mL, [place] Longer [place] Route: IVP, Active 2015 Medical Drug form: INJ, Center Q5Min, Dosing Weight 88.636, kg, PRN Elevated BP, Start date: 02/21/16 6:48:00 DRAWER UPFITTER, Duration: 5 doses or times, Stop date: Limited # of times Hydralazine Notes: (Same [place] Longer [place] as: Apresoline) Active 2015 Medical Push over 5 Center minutes ceFAZolin Notes: Same as: Inactive [place] Ancef 2016 Medical Center Thyroxine 50 microgram, On Hold [place] PO, Daily, 0 2015 Medical Refill(s) Center Esomeprazole 40 40 mg = 1 cap, No Longer [place] MG Enteric Coated PO, Daily, # 30 Active 2016 Medical Capsule [Nexium] cap, 0 Center Refill(s) simvastatin 40 mg 40 mg = 1 tab, No Longer 02/07 [place] oral tablet PO, Bedtime, # Active 2016 Medic al 90 tab, 1 Center Refill(s) Flomax 0.4 mg, PO, On Hold [place] Daily, 0 2015 Medical Refill(s) [place] multivitamin PO, Daily, 0 On Hold [place] as Refill(s) 2016 [facility] Nexium PO, Daily, 0 No Longer [place] Refill(s) Active 2016 Medical [place] duloxetine 60 MG 60 mg = 1 cap, On Hold [place] Enteric Coated PO, Daily, # 30 2016 M edical Capsule cap, 0 Center [Cymbalta] Refill(s) Allergies, Adverse Reactions, Alerts Substance Category Reaction Severity Reaction Status Date Comments S ource type Reported No Known Assertion Drug [place] Medication allergy Medic al Allergies Center Immunizations Immunization Date Site Status Last Comments Source Given Updated pneumococcal Left completed Ali Aaron s 13-valent vaccine 8 Deltoid [facility],2.1 6. [id number] 83 .[id number] ,M GUALBERTO Burrell,[facility], GUALBERTO Cruz,M [facility] Results Order Name Results Value Reference Date Interpretation Comments Geeta rce Range IMMUNOLOGY Coronavirus Not Detected Not 11/18 [place] (COVID-19) (11/19/19 8:50 AM) Detected /2019 [facility] IMMUNOLOGY IgE Lvl 35.2 10.0 - 03/09 100.0 /2018 [facility] CARDIAC Troponin-I <0.02 0.00 - 03/08 ENZYMES 0.40 [facility] CHEM PANEL Glucose Lvl 248 70 - 99 03/08 [facility] CHEM PANEL BUN 16 7 - 22 03/08 [facility] CHEM PANEL Creatinine 1.12 0.50 - 03/08 Lvl 1.40 [facility] CHEM PANEL Sodium Lvl 136 135 - 145 03/08 [facility] CHEM PANEL Potassium 4.5 3.5 - 5.1 03/08 Lvl /2018 [facility] CHEM PANEL Chloride Lvl 106 95 - 109 03/08 [facility] CHEM PANEL CO2 26 24 - 32 03/08 [facility] CHEM PANEL AGAP 8.5 10.0 - 03/08 MH 20.0 /2018 [facility] CHEM PANEL Calcium Lvl 8.8 8.5 - 10.5 03/08 [facility] CHEM PANEL eGFR 63 03/08 [facility] Comment: The [facility] eGFR is calculated using the CKD-EPI formula. [...] 1.5 - 8.1 03/08 MH # /2018 [facility] HEMATOLOGY Lymphocytes 0.6 1.0 - 5.5 03/08 # /2018 [facility] HEMATOLOGY Monocytes # 0.0 0.0 - 0.8 03/08 [facility] HEMATOLOGY Segs 94.0 45.0 - 03/08 75.0 [facility] HEMATOLOGY Bands 0.0 0.0 - 11.0 03/08 [facility] HEMATOLOGY Lymphocytes 5.0 20.0 - 03/08 MH 40.0 [facility] HEMATOLOGY Monocytes 0.0 2.0 - 12.0 03/08 [facility] HEMATOLOGY Atypical 1.0 <=0.0 % 03/08 Lymphs [facility] HEMATOLOGY RBC Morph Normal Normal 03/08 (03/08/19 3:34 AM) [facility] HEMATOLOGY Plt Morph Normal Normal 03/08 (03/08/19 3:34 AM) [facility] HEMATOLOGY WBC 10.1 3.7 - 10.4 03/08 [facility] HEMATOLOGY RBC 4.59 4.70 - 03/08 6.10 /2018 [facility] HEMATOLOGY Hgb 12.8 14.0 - 03/08 MH 18.0 /2018 [facility] HEMATOLOGY Hct 38.7 42.0 - 03/08 54.0 /2018 [facility] HEMATOLOGY MCV 84.3 80.0 - 03/08 94.0 /2018 [facility] HEMATOLOGY MCH 27.9 27.0 - 03/08 MH 31.0 /2018 [facility] HEMATOLOGY MCHC 33.1 32.0 - 03/08 MH 36.0 /2018 [facility] HEMATOLOGY RDW 15.6 11.5 - 03/08 14.5 /2018 [facility] HEMATOLOGY Platelet 216 133 - 450 03/08 [facility] HEMATOLOGY MPV 6.8 7.4 - 10.4 03/08 [facility] LIPIDS CHD Risk 3.39 4.00 - 03/08 7.30 [facility] LIPIDS Trig 119 <=149 03/08 mg/dL [facility] LIPIDS Chol 156 <=199 03/08 mg/dL [facility] LIPIDS HDL 46 >=61 mg/dL 03/08 [facility] LIPIDS LDL 86 <=99 mg/dL 03/08 (Calculated) [facility] LIPIDS VLDL 24 03/08 [facility] SPECIAL Hgb A1C 7.5 <=5.6 % 03/08 CHEMISTRY /2018 [facility] CARDIAC Troponin-I <0.02 0.00 - 03/08 ENZYMES 0.40 [facility] CARDIAC Troponin-I <0.02 0.00 - 03/08 ENZYMES 0.40 [facility] CARDIAC BNP 51 <=100 03/07 ENZYMES pg/mL /2018 [facility] CHEM PANEL Glucose Lvl 138 70 - 99 03/07 [facility] CHEM PANEL BUN 19 7 - 22 03/07 [facility] CHEM PANEL Creatinine 1.27 0.50 - 03/07 Lvl 1.40 /2018 [facility] CHEM PANEL Sodium Lvl 137 135 - 145 03/07 [facility] CHEM PANEL Potassium 4.0 3.5 - 5.1 03/07 Lvl /2018 [facility] CHEM PANEL Chloride Lvl 105 95 - 109 03/07 [facility] CHEM PANEL CO2 25 24 - 32 03/07 [facility] CHEM PANEL Calcium Lvl 8.8 8.5 - 10.5 03/07 [facility] CHEM PANEL eGFR 55 03/07 [facility] Comment: The [facility] eGFR is calculated using the CKD-EPI formula. [...] PANEL AGAP 11.0 10.0 - 03/07 MH 20. [facility] HEMATOLOGY WBC 10.5 3.7 - 10.4 03/07 [facility] HEMATOLOGY RBC 4.88 4.70 - 03/07 MH 6.10 [facility] HEMATOLOGY Hgb 13.5 14.0 - 03/07 MH 18.0 [facility] HEMATOLOGY Hct 41.4 42.0 - 03/07 MH 54.0 [facility] HEMATOLOGY MCV 85.0 80.0 - 03/07 MH 94.0 [facility] HEMATOLOGY MCH 27.6 27.0 - 03/07 MH 31.0 [facility] HEMATOLOGY MCHC 32.5 32.0 - 03/07 MH 36.0 [facility] HEMATOLOGY RDW 15.7 11.5 - 03/07 MH 14.5 [facility] HEMATOLOGY Platelet 228 133 - 450 03/07 [facility] HEMATOLOGY MPV 6.9 7.4 - 10.4 03/07 [facility] ELECTROLYT AGAP 12.7 10.0 - 05/18 MH ES 20. [facility] ELECTROLYT Calcium Lvl 8.1 8.5 - 10.5 05/18 ES [facility] ELECTROLYT Chloride Lvl 104 95 - 109 05/18 ES [facility] ELECTROLYT Sodium Lvl 140 135 - 145 05/18 [facility] ELECTROLYT Potassium 4.7 3.5 - 5.1 05/18 MH ES Lvl /2018 [facility] ELECTROLYT eGFR 70 05/18 Result Comment: The [facility] eGFR is City calculated using the [...] BMI. ELECTROLYT Creatinine 1.04 0.50 - 05/18 [facility] Lvl 1.40 /2018 [facility] ELECTROLYT Glucose Lvl 126 70 - 99 05/18 ES [facility] ELECTROLYT CO2 28 24 - 32 05/18 ES [facility] ELECTROLYT BUN 17 7 - 22 05/18 ES [facility] HEMATOLOGY Lymphocytes 7.9 20.0 - 05/18 40.0 [facility] HEMATOLOGY Segs 86.8 45.0 - 05/18 75.0 [facility] HEMATOLOGY Basophils 0.2 0.0 - 1.0 05/18 [facility] HEMATOLOGY Monocytes 5.1 2.0 - 12.0 05/18 [facility] HEMATOLOGY Neutrophils 11.8 1.5 - 8.1 05/18 # /2019 [facility] HEMATOLOGY Lymphocytes 1.1 1.0 - 5.5 05/18 # /2018 [facility] HEMATOLOGY Monocytes # 0.7 0.0 - 0.8 05/18 [facility] HEMATOLOGY MPV 7.2 7.4 - 10.4 05/18 [facility] HEMATOLOGY RBC 4.05 4.70 - 05/18 MH 6.10 /2018 [facility] HEMATOLOGY WBC 13.6 3.7 - 10.4 05/18 [facility] HEMATOLOGY Hct 33.1 42.0 - 05/18 MH 54.0 /2018 [facility] HEMATOLOGY Hgb 10.6 14.0 - 05/18 MH 18.0 /2018 [facility] HEMATOLOGY MCHC 32.1 32.0 - 05/18 MH 36.0 /2018 [facility] HEMATOLOGY MCH 26.3 27.0 - 05/18 MH 31.0 /2018 [facility] HEMATOLOGY RDW 16.5 11.5 - 05/18 MH 14.5 /2018 [facility] HEMATOLOGY Platelet 201 133 - 450 05/18 [facility] HEMATOLOGY MCV 81.8 80.0 - 05/18 MH 94.0 /2018 [facility] HEMATOLOGY POC 13.9 14.0 - 05/17 MH Hemoglobin 18.0 /2018 [facility] POC Ion Ca 1.23 1.05 - 05/17 MH 1.25 /2018 [facility] HEMATOLOGY POC 41.0 42.0 - 05/17 MH Hematocrit 54.0 [facility] POC AGAP 16.0 10.0 - 05/17 MH 20.0 [facility] HEMATOLOGY eGFR 83 05/17 Result Comment: The [facility] eGFR is City calculated using the [...] 26 24 - 32 05/17 MH Dioxide [facility] HEMATOLOGY POC BUN 12 7 - 22 05/17 [facility] HEMATOLOGY POC 0.9 0.5 - 1.4 05/17 Creatinine [facility] HEMATOLOGY POC Glucose 117 70 - 99 05/17 [facility] HEMATOLOGY POC Sodium 140 135 - 145 05/17 [facility] HEMATOLOGY POC 4.4 3.5 - 5.1 05/17 Potassium /2018 [facility] HEMATOLOGY POC Chloride 103 95 - 109 05/17 [facility] CHEM PANEL eGFR 65 05/02 Result Comment: The [facility] eGFR is calculated using the CKD-EPI formula. [...] PANEL POC 1.1 0.5 - 1.4 05/02 [facility] REFERENCE Test Name BROAD 05/22 LAB RANGE PCR [facility] REFERENCE [facility] [place] 05/22 Result LAB COMMENT Comment: [facility] Specimen [facility] Description Tissue
Shoulder

Culture Streptococcus gordonii DNA [...] developed by the Department of Laboratory
Medicine, [facility].<b r/>
Repor t Status Final 05/29/2017

T esting performed at:
[facility]
[id number], [address] [facility]
[place], [address] CHEM PANEL eGFR 87 05/18 Result Comment: The [facility] eGFR is City calculated using the [...] PANEL ALT 10 0 - 65 05/18 [facility] CHEM PANEL Creatinine 0.82 0.50 - 05/18 MH Lvl 1.40 [facility] CHEM PANEL AST 7 0 - 37 05/18 [facility] CHEM PANEL BUN 6 7 - 22 05/18 [facility] CHEM PANEL Glucose Lvl 134 70 - 99 05/18 [facility] CHEM PANEL Potassium 3.7 3.5 - 5.1 05/18 MH Lvl /2017 [facility] CHEM PANEL Sodium Lvl 141 135 - 145 05/18 [facility] CHEM PANEL Albumin Lvl 2.7 3.5 - 5.0 05/18 [facility] CHEM PANEL Calcium Lvl 8.3 8.5 - 10.5 05/18 [facility] CHEM PANEL CO2 28 24 - 32 05/18 [facility] CHEM PANEL Chloride Lvl 105 95 - 109 05/18 [facility] CHEM PANEL Bili Total 1.1 0.2 - 1.3 05/18 [facility] CHEM PANEL Alk Phos 85 39 - 136 05/18 [facility] CHEM PANEL Total 5.9 6.4 - 8.4 02/23 MH Protein /2017 [facility] CHEM PANEL B/C Ratio 7 6 - 25 05/18 /2017 [facility] CHEM PANEL AGAP 11.7 10.0 - 05/18 MH 20.0 /2017 [facility] CHEM PANEL A/G Ratio 0.8 0.7 - 1.6 05/18 /2017 [facility] CHEM PANEL Globulin 3.2 2.7 - 4.2 05/18 [facility] HEMATOLOGY Monocytes 6.7 2.0 - 12.0 05/18 [facility] HEMATOLOGY Eosinophils 1.7 0.0 - 4.0 05/18 [facility] HEMATOLOGY Segs 73.3 45.0 - 05/18 MH 75.0 [facility] HEMATOLOGY Lymphocytes 17.8 20.0 - 05/18 MH 40.0 [facility] HEMATOLOGY Lymphocytes 1.5 1.0 - 5.5 05/18 MH # /2017 [facility] HEMATOLOGY Basophils 0.5 0.0 - 1.0 05/18 [facility] HEMATOLOGY Segs-Bands # 6.0 1.5 - 8.1 05/18 [facility] HEMATOLOGY Monocytes # 0.6 0.0 - 0.8 05/18 [facility] HEMATOLOGY Microcyte 1+ None Seen 05/18 MH *ABN* /[address] [facility] (05/18/17 6:00 AM) [facility] HEMATOLOGY Eosinophils 0.1 0.0 - 0.5 05/18 MH # /2018 [facility] HEMATOLOGY MPV 7.0 7.4 - 10.4 05/18 [facility] HEMATOLOGY Platelet 317 133 - 450 05/18 [facility] HEMATOLOGY WBC 8.2 3.7 - 10.4 05/18 [facility] HEMATOLOGY Hgb 9.6 14.0 - 05/18 MH 18.0 [facility] HEMATOLOGY Hct 29.0 42.0 - 05/18 MH 54.0 /2017 [facility] HEMATOLOGY RBC 3.79 4.70 - 05/18 MH 6.10 [facility] HEMATOLOGY RDW 15.5 11.5 - 05/18 MH 14.5 [facility] HEMATOLOGY MCHC 33.0 32.0 - 05/18 MH 36.0 [facility] HEMATOLOGY MCV 76.5 80.0 - 05/18 MH 94.0 [facility] HEMATOLOGY MCH 25.3 27.0 - 05/18 MH 31.0 [facility] CHEM PANEL Procalcitoni <0.05 0.00 - 05/17 MH n Lvl 0.10 [facility] CHEM PANEL Procalcitoni <0.05 0.00 - 05/16 MH n Lvl ng/mL 0.10 [facility] CHEM PANEL Globulin 2.7 2.7 - 4.2 05/16 [facility] CHEM PANEL A/G Ratio 1.0 0.7 - 1.6 05/16 [facility] CHEM PANEL B/C Ratio 13 6 - 25 05/16 [facility] CHEM PANEL AGAP 15.3 10.0 - 05/16 MH 20.0 [facility] CHEM PANEL Bili Total 0.4 0.2 - 1.3 05/16 [facility] CHEM PANEL Alk Phos 91 39 - 136 05/16 [facility] CHEM PANEL Total 5.5 6.4 - 8.4 05/16 [facility] CHEM PANEL eGFR 82 05/16 Result Comment: The [facility] eGFR is City calculated using the [...] PANEL AST 11 0 - 37 05/16 [facility] CHEM PANEL ALT 12 0 - 65 05/16 [facility] CHEM PANEL Creatinine 0.92 0.50 - 05/16 Lvl 1.40 [facility] CHEM PANEL Glucose Lvl 125 70 - 99 05/16 [facility] CHEM PANEL BUN 12 7 - 22 05/16 [facility] CHEM PANEL Sodium Lvl 141 135 - 145 05/16 [facility] CHEM PANEL Chloride Lvl 103 95 - 109 05/16 [facility] CHEM PANEL Potassium 4.3 3.5 - 5.1 05/16 MH Lvl /2017 [facility] CHEM PANEL Albumin Lvl 2.8 3.5 - 5.0 05/16 [facility] CHEM PANEL CO2 27 24 - 32 05/16 [facility] CHEM PANEL Calcium Lvl 7.7 8.5 - 10.5 05/16 [facility] HEMATOLOGY RBC 3.80 4.70 - 05/16 MH 6.10 [facility] HEMATOLOGY WBC 8.8 3.7 - 10.4 05/16 [facility] HEMATOLOGY MCHC 33.8 32.0 - 05/16 36.0 [facility] HEMATOLOGY MCH 25.8 27.0 - 05/16 MH 31.0 [facility] HEMATOLOGY MCV 76.4 80.0 - 05/16 94.0 [facility] HEMATOLOGY Hgb 9.8 14.0 - 05/16 MH 18.0 [facility] HEMATOLOGY Hct 29.1 42.0 - 05/16 MH 54.0 /2017 [facility] HEMATOLOGY MPV 6.8 7.4 - 10.4 05/16 [facility] HEMATOLOGY Platelet 293 133 - 450 05/16 [facility] HEMATOLOGY RDW 16.0 11.5 - 05/16 14.5 [facility] HEMATOLOGY Eosinophils 1.8 0.0 - 4.0 05/16 [facility] HEMATOLOGY Monocytes 6.3 2.0 - 12.0 05/16 [facility] HEMATOLOGY Basophils 0.6 0.0 - 1.0 05/16 [facility] HEMATOLOGY Lymphocytes 1.7 1.0 - 5.5 05/16 # /2017 [facility] HEMATOLOGY Segs-Bands # 6.4 1.5 - 8.1 05/16 [facility] HEMATOLOGY Monocytes # 0.6 0.0 - 0.8 05/16 [facility] HEMATOLOGY Basophils # 0.1 0.0 - 0.2 05/16 [facility] HEMATOLOGY Eosinophils 0.2 0.0 - 0.5 05/16 # /2018 [facility] HEMATOLOGY Microcyte 1+ None Seen 05/16 MH *ABN* /[address] [facility] (05/16/17 4:15 AM) [facility] HEMATOLOGY Segs 72.3 45.0 - 05/16 MH 75.0 /2017 [facility] HEMATOLOGY Lymphocytes 19.0 20.0 - 05/16 MH 40.0 [facility] IMMUNOLOGY Anti-dnase B <78 0 - 120 05/16 Result Comment: [facility] Results City verified by repeat testing<br/ >Limit of assay detection is <78
Perfo rmed At: [facility]
[id number] [place], [place] [id number]< br/>Amira Woo MD Ph:[phone] IMMUNOLOGY ASO <12 0 - 408 05/16 /2017 [facility] TOXICOLOGY Vanco Tr TND 0430 05/16 [facility] TOXICOLOGY Vanco Tr 12.5 05/16 [facility] HEMATOLOGY Lymphocytes 2.1 1.0 - 5.5 05/16 MH # /2017 [facility] HEMATOLOGY Segs-Bands # 7.0 1.5 - 8.1 05/16 [facility] HEMATOLOGY Basophils # 0.1 0.0 - 0.2 05/16 [facility] HEMATOLOGY Eosinophils 0.2 0.0 - 0.5 05/16 # /2017 [facility] HEMATOLOGY Monocytes # 0.7 0.0 - 0.8 05/16 [facility] HEMATOLOGY Microcyte 1+ None Seen 05/16 MH *ABN* /[address] [facility] (05/15/17 10:12 PM) [facility] HEMATOLOGY Segs 70.1 45.0 - 05/16 MH 75.0 [facility] HEMATOLOGY Basophils 0.6 0.0 - 1.0 05/16 [facility] HEMATOLOGY Eosinophils 1.5 0.0 - 4.0 05/16 [facility] HEMATOLOGY Monocytes 6.7 2.0 - 12.0 05/16 [facility] HEMATOLOGY Lymphocytes 21.1 20.0 - 05/16 MH 40.0 [facility] HEMATOLOGY MPV 7.0 7.4 - 10.4 05/16 [facility] HEMATOLOGY MCH 25.4 27.0 - 05/16 MH 31.0 [facility] HEMATOLOGY MCV 77.3 80.0 - 05/16 MH 94.0 [facility] HEMATOLOGY Platelet 320 133 - 450 02 [facility] HEMATOLOGY RDW 15.8 11.5 - 02 MH 14.5 /2017 [facility] HEMATOLOGY MCHC 32.8 32.0 - 05/16 MH 36.0 /2017 [facility] HEMATOLOGY RBC 3.91 4.70 - 05/16 MH 6.10 [facility] HEMATOLOGY Hgb 9.9 14.0 - 05/16 MH 18.0 [facility] HEMATOLOGY WBC 10.1 3.7 - 10.4 05/16 [facility] HEMATOLOGY Hct 30.2 42.0 - 05/16 MH 54.0 [facility] CHEM PANEL eGFR 66 05/15 Result Comment: The [facility] eGFR is City calculated using the [...] POC BUN 12 7 - 22 05/15 [facility] CHEM PANEL POC Chloride 101 95 - 109 05/15 [facility] CHEM PANEL POC 1.1 0.5 - 1.4 05/15 Creatinine /2017 [facility] CHEM PANEL POC 50.0 42.0 - 05/15 MH Hematocrit 54.0 [facility] CHEM PANEL POC Carbon 26 24 - 32 05/15 MH Dioxide [facility] CHEM PANEL POC Glucose 156 70 - 99 05/15 [facility] CHEM PANEL POC 17.0 14.0 - 05/15 Hemoglobin 18.0 /2017 [facility] CHEM PANEL POC Ion Ca 1.20 1.05 - 05/15 MH 1.25 /2017 [facility] CHEM PANEL POC AGAP 17.0 10.0 - 05/15 20. [facility] CHEM PANEL POC 3.9 3.5 - 5.1 05/15 Potassium [facility] CHEM PANEL POC Sodium 140 135 - 145 05/15 [facility] HEMATOLOGY Sed Rate 36 0 - 15 05/15 [facility] IMMUNOLOGY C-REACTIVE 62.7 <=2.9 mg/L 05/15 [facility] CHEM PANEL eGFR 85 05/06 Result Comment: The [facility] eGFR is City calculated using the [...] B/C Ratio 10 6 - 25 05/06 [facility] CHEM PANEL AGAP 11.7 10.0 - 05/06 . [facility] CHEM PANEL AST 15 0 - 37 05/06 [facility] CHEM PANEL Albumin Lvl 2.7 3.5 - 5.0 05/06 [facility] CHEM PANEL ALT 22 0 - 65 05/06 [facility] CHEM PANEL Creatinine 0.86 0.50 - 05/06 Lvl 1.40 /2017 [facility] CHEM PANEL BUN 9 7 - 22 05/06 [facility] CHEM PANEL Glucose Lvl 184 70 - 99 05/06 [facility] CHEM PANEL CO2 28 24 - 32 05/06 [facility] CHEM PANEL Sodium Lvl 142 135 - 145 05/06 [facility] CHEM PANEL Potassium 3.7 3.5 - 5.1 05/06 Lvl [facility] CHEM PANEL Calcium Lvl 7.9 8.5 - 10.5 05/06 [facility] CHEM PANEL Chloride Lvl 106 95 - 109 05/06 [facility] CHEM PANEL A/G Ratio 0.8 0.7 - 1.6 05/06 [facility] CHEM PANEL Globulin 3.3 2.7 - 4.2 05/06 [facility] CHEM PANEL Total 6.0 6.4 - 8.4 05/06 Protein [facility] CHEM PANEL Alk Phos 103 39 - 136 05/06 [facility] CHEM PANEL Bili Total 0.2 0.2 - 1.3 05/06 [facility] HEMATOLOGY Monocytes 6.7 2.0 - 12.0 05/06 [facility] HEMATOLOGY Eosinophils 1.6 0.0 - 4.0 05/06 [facility] HEMATOLOGY Lymphocytes 17.4 20.0 - 05/06 40.0 [facility] HEMATOLOGY Segs-Bands # 6.9 1.5 - 8.1 05/06 [facility] HEMATOLOGY Basophils 1.2 0.0 - 1.0 05/06 /2017 [facility] HEMATOLOGY Monocytes # 0.6 0.0 - 0.8 05/06 /2017 [facility] HEMATOLOGY Lymphocytes 1.6 1.0 - 5.5 05/06 # /2017 [facility] HEMATOLOGY Eosinophils 0.2 0.0 - 0.5 05/06 # /2018 [facility] HEMATOLOGY Basophils # 0.1 0.0 - 0.2 05/06 /2017 [facility] HEMATOLOGY Microcyte 1+ None Seen 05/06 *ABN* /[address] [facility] (05/06/17 12:09 PM) [facility] HEMATOLOGY Segs 73.1 45.0 - 05/06 75.0 [facility] HEMATOLOGY WBC 9.5 3.7 - 10.4 05/06 [facility] HEMATOLOGY Hct 33.2 42.0 - 05/06 54.0 [facility] HEMATOLOGY RBC 4.26 4.70 - 05/06 MH 6.10 [facility] HEMATOLOGY Hgb 10.9 14.0 - 05/06 18.0 [facility] HEMATOLOGY MCH 25.6 27.0 - 05/06 31.0 [facility] HEMATOLOGY MCV 77.7 80.0 - 05/06 94.0 [facility] HEMATOLOGY Platelet 272 133 - 450 05/06 [facility] HEMATOLOGY MPV 6.7 7.4 - 10.4 05/06 [facility] HEMATOLOGY MCHC 33.0 32.0 - 05/06 MH 36.0 [facility] HEMATOLOGY RDW 15.8 11.5 - 02 MH 14.5 /2017 [facility] IMMUNOLOGY C-REACTIVE 40.6 <=2.9 mg/L 05/06 [facility] CHEM PANEL Glucose Lvl 146 70 - 99 05/04 [facility] CHEM PANEL Sodium Lvl 142 135 - 145 05/04 [facility] CHEM PANEL Chloride Lvl 104 95 - 109 05/04 [facility] CHEM PANEL Potassium 4.1 3.5 - 5.1 05/04 Lvl [facility] CHEM PANEL BUN 12 7 - 22 05/04 [facility] CHEM PANEL CO2 29 24 - 32 05/04 [facility] CHEM PANEL Calcium Lvl 8.5 8.5 - 10.5 05/04 [facility] CHEM PANEL eGFR 87 05/04 Result Comment: The [facility] eGFR is City calculated using the [...] BMI. CHEM PANEL Creatinine 0.81 0.50 - 05/04 Lvl 1.40 [facility] CHEM PANEL AGAP 13.1 10.0 - 05/04 MH 20.0 [facility] HEMATOLOGY Basophils 0.7 0.0 - 1.0 05/04 [facility] HEMATOLOGY Segs-Bands # 5.7 1.5 - 8.1 05/04 [facility] HEMATOLOGY Eosinophils 0.1 0.0 - 0.5 / MH # /2017 [facility] HEMATOLOGY Lymphocytes 1.7 1.0 - 5.5 05/04 MH # /2017 [facility] HEMATOLOGY Basophils # 0.1 0.0 - 0.2 05/04 [facility] HEMATOLOGY Microcyte 1+ None Seen 05/04 *ABN* /[address] [facility] (05/04/17 5:26 AM) [facility] HEMATOLOGY Monocytes 7.5 2.0 - 12.0 05/04 [facility] HEMATOLOGY Eosinophils 1.0 0.0 - 4.0 05/04 [facility] HEMATOLOGY Monocytes # 0.6 0.0 - 0.8 05/04 [facility] HEMATOLOGY Lymphocytes 21.0 20.0 - 05/04 MH 40.0 [facility] HEMATOLOGY Segs 69.8 45.0 - 05/04 MH 75.0 /2017 [facility] HEMATOLOGY RBC 4.15 4.70 - 05/04 MH 6.10 [facility] HEMATOLOGY WBC 8.1 3.7 - 10.4 05/04 [facility] HEMATOLOGY Hct 32.3 42.0 - 05/04 MH 54.0 /2017 [facility] HEMATOLOGY Hgb 10.6 14.0 - 05/04 MH 18.0 [facility] HEMATOLOGY MCV 77.7 80.0 - 05/04 MH 94.0 [facility] HEMATOLOGY RDW 15.9 11.5 - 05/04 MH 14.5 [facility] HEMATOLOGY Platelet 296 133 - 450 05/04 [facility] HEMATOLOGY MCH 25.5 27.0 - 05/04 MH 31.0 [facility] HEMATOLOGY MCHC 32.8 32.0 - 05/04 MH 36.0 [facility] HEMATOLOGY MPV 6.7 7.4 - 10.4 05/04 [facility] TOXICOLOGY Vanco Tr TND 2000 05/04 [facility] TOXICOLOGY Vanco Tr 10.5 05/04 [facility] CHEM PANEL eGFR 78 05/02 Result Comment: The [facility] eGFR is City calculated using the [...] BMI. CHEM PANEL Creatinine 0.96 0.50 - 05/02 Lvl 1.40 [facility] CHEM PANEL Potassium 4.9 3.5 - 5.1 05/02 Lvl /2017 [facility] CHEM PANEL Chloride Lvl 104 95 - 109 05/02 [facility] CHEM PANEL CO2 29 24 - 32 05/02 [facility] CHEM PANEL Calcium Lvl 8.6 8.5 - 10.5 05/02 [facility] CHEM PANEL Sodium Lvl 142 135 - 145 05/02 [facility] CHEM PANEL BUN 17 7 - 22 05/02 [facility] CHEM PANEL Glucose Lvl 152 70 - 99 05/02 [facility] CHEM PANEL AGAP 13.9 10.0 - 05/02 MH 20.0 [facility] HEMATOLOGY Platelet 329 133 - 450 05/02 [facility] HEMATOLOGY MPV 7.0 7.4 - 10.4 05/02 [facility] HEMATOLOGY RDW 15.7 11.5 - 05/02 MH 14.5 [facility] HEMATOLOGY MCH 25.4 27.0 - 05/02 MH 31.0 [facility] HEMATOLOGY MCHC 32.0 32.0 - 05/02 MH 36.0 [facility] HEMATOLOGY Hct 33.7 42.0 - 05/02 MH 54.0 [facility] HEMATOLOGY Hgb 10.8 14.0 - 05/02 MH 18.0 [facility] HEMATOLOGY RBC 4.25 4.70 - 05/02 MH 6.10 [facility] HEMATOLOGY MCV 79.2 80.0 - 05/02 MH 94.0 [facility] HEMATOLOGY WBC 12.8 3.7 - 10.4 05/02 [facility] HEMATOLOGY Monocytes 6.0 2.0 - 12.0 02 [facility] HEMATOLOGY Lymphocytes 9.9 20.0 - 05/02 MH 40.0 /2017 [facility] HEMATOLOGY Basophils 0.3 0.0 - 1.0 05/02 [facility] Segs-Bands # 10.7 1.5 - 8.1 05/02 [facility] Lymphocytes 1.3 1.0 - 5.5 05/02 MH # /2018 [facility] HEMATOLOGY Monocytes # 0.8 0.0 - 0.8 05/02 [facility] HEMATOLOGY Segs 83.8 45.0 - 02 MH 75.0 [facility] IMMUNOLOGY C-REACTIVE 104.0 <=2.9 mg/L 05/01 MH [facility] HEMATOLOGY Sed Rate 40 0 - 15 05/01 [facility] CHEM PANEL eGFR 84 04/13 Result Comment: [facility] eGFR is City calculated using the [...] PANEL POC 4.4 3.5 - 5.1 04/13 [facility] CHEM PANEL POC Sodium 139 135 - 145 04/13 [facility] CHEM PANEL POC Glucose 108 70 - 99 04/13 [facility] CHEM PANEL POC AGAP 16.0 10.0 - 04/13 MH 20. [facility] CHEM PANEL POC 44.0 42.0 - 04/13 Hematocrit 54.0 /2018 [facility] CHEM PANEL POC 15.0 14.0 - 04/13 Hemoglobin 18.0 /2017 [facility] CHEM PANEL POC Ion Ca 1.20 1.05 - 04/13 1.25 /2017 [facility] CHEM PANEL POC Chloride 100 95 - 109 04/13 [facility] CHEM PANEL POC 0.9 0.5 - 1.4 04/13 Creatinine /2017 [facility] CHEM PANEL POC BUN 16 7 - 22 04/13 [facility] CHEM PANEL POC Carbon 29 24 - 32 04/13 Dioxide [facility] ELECTROLYT AGAP 12.4 10.0 - 01/27 ES 20.0 [facility] ELECTROLYT eGFR 67 01/27 Result Comment: The [facility] eGFR is City calculated using the [...] Lvl 123 70 - 99 01/27 ES [facility] ELECTROLYT Creatinine 1.08 0.50 - 01/27 ES Lvl 1.40 /2016 [facility] ELECTROLYT BUN 15 7 - 22 01/27 ES [facility] ELECTROLYT Sodium Lvl 141 135 - 145 01/27 ES [facility] ELECTROLYT Calcium Lvl 8.2 8.5 - 10.5 01/27 ES [facility] ELECTROLYT Chloride Lvl 106 95 - 109 01/27 ES [facility] ELECTROLYT CO2 27 24 - 32 01/27 ES [facility] ELECTROLYT Potassium 4.4 3.5 - 5.1 01/27 ES Lvl /2016 [facility] HEMATOLOGY WBC 10.4 3.7 - 10.4 01/27 [facility] HEMATOLOGY MCV 81.0 80.0 - 01/27 94.0 [facility] HEMATOLOGY Hct 34.1 42.0 - 01/27 MH 54.0 /2016 [facility] HEMATOLOGY MCH 26.9 27.0 - 01/27 MH 31.0 [facility] HEMATOLOGY Hgb 11.3 14.0 - 01/27 18.0 [facility] HEMATOLOGY RBC 4.20 4.70 - 01/27 MH 6.10 [facility] HEMATOLOGY MPV 6.7 7.4 - 10.4 01/27 [facility] Platelet 185 133 - 450 01/27 [facility] HEMATOLOGY RDW 16.1 11.5 - 01/27 14. [facility] HEMATOLOGY MCHC 33.2 32.0 - 01/27 MH 36.0 [facility] HEMATOLOGY Eosinophils 1.0 0.0 - 4.0 01/27 [facility] HEMATOLOGY Segs-Bands # 7.4 1.5 - 8.1 01/27 [facility] HEMATOLOGY Basophils 1.0 0.0 - 1.0 01/27 [facility] HEMATOLOGY Lymphocytes 19.6 20.0 - 01/27 40.0 [facility] HEMATOLOGY Segs 71.7 45.0 - 01/27 75.0 [facility] HEMATOLOGY Monocytes 6.7 2.0 - 12.0 01/27 [facility] HEMATOLOGY Monocytes # 0.7 0.0 - 0.8 01/27 [facility] HEMATOLOGY Lymphocytes 2.0 1.0 - 5.5 01/27 /2016 [facility] HEMATOLOGY Eosinophils 0.1 0.0 - 0.5 01/27 MH # /2016 [facility] HEMATOLOGY Basophils # 0.1 0.0 - 0.2 01/27 [facility] BACTERIAL MRSA by PCR Negative 01/22 - SEROLOGY (01/22/17 11:36 AM) /2016 [facility] CHEM PANEL Albumin Lvl 3.9 3.5 - 5.0 01/22 [facility] CHEM PANEL Glucose Lvl 126 70 - 99 01/22 [facility] CHEM PANEL eGFR 70 01/22 Result Comment: [facility] eGFR is City calculated using the [...] 1.04 0.50 - 01/22 MH Lvl 1.40 [facility] CHEM PANEL BUN 16 7 - 22 01/22 [facility] ELECTROLYT Sodium Lvl 140 135 - 145 01/22 MH ES [facility] ELECTROLYT Potassium 3.6 3.5 - 5.1 01/22 MH ES Lvl [facility] HEMATOLOGY MPV 7.1 7.4 - 10.4 01/22 [facility] HEMATOLOGY Platelet 224 133 - 450 01/22 [facility] HEMATOLOGY MCV 81.2 80.0 - 01/22 MH 94.0 [facility] HEMATOLOGY RDW 16.0 11.5 - 01/22 MH 14. [facility] HEMATOLOGY MCHC 32.7 32.0 - 01/22 MH 36.0 [facility] HEMATOLOGY MCH 26.6 27.0 - 01/22 MH 31.0 [facility] HEMATOLOGY Hct 41.9 42.0 - 01/22 MH 54.0 [facility] HEMATOLOGY Hgb 13.7 14.0 - 01/22 MH 18.0 [facility] HEMATOLOGY RBC 5.15 4.70 - 01/22 MH 6.10 [facility] HEMATOLOGY WBC 10.7 3.7 - 10.4 01/22 [facility] CHEM PANEL A/G Ratio 0.7 0.7 - 1.6 03/20 [facility] /2015 CHEM PANEL Globulin 3.5 2.7 - 4.2 03/20 [facility] CHEM PANEL B/C Ratio 5 6 - 25 03/20 [facility] /2015 CHEM PANEL AGAP 14.7 10.0 - 03/20 [facility] 20.0 CHEM PANEL eGFR 90 03/20 [facility] Comment: The eGFR is calculated using the [...] Total 0.5 0.2 - 1.3 03/20 [facility] /2015 CHEM PANEL Potassium 3.7 3.5 - 5.1 03/20 [facility] Lvl /2015 CHEM PANEL Total 6.0 6.4 - 8.4 03/20 [facility] CHEM PANEL CO2 25 24 - 32 03/20 [facility] /2015 CHEM PANEL Calcium Lvl 8.8 8.5 - 10.5 03/20 [facility] CHEM PANEL Creatinine 0.76 0.50 - 03/20 [facility] Lvl 1.40 CHEM PANEL Sodium Lvl 141 135 - 145 03/20 [facility] CHEM PANEL Chloride Lvl 105 95 - 109 03/20 [facility] /2015 CHEM PANEL BUN 4 7 - 22 03/20 [facility] /2016 CHEM PANEL Glucose Lvl 103 70 - 99 03/20 [facility] /2016 CHEM PANEL Phosphorus 3.6 2.5 - 4.5 03/20 [facility] /2015 CHEM PANEL Magnesium 2.0 1.8 - 2.4 03/20 [facility] Lvl /2015 HEMATOLOGY Segs 53.2 45.0 - 03/20 [facility] 75.0 /2015 HEMATOLOGY Lymphocytes 36.3 20.0 - 03/20 [facility] 40.0 /2015 HEMATOLOGY Monocytes 8.0 2.0 - 12.0 03/20 [facility] /2016 HEMATOLOGY Eosinophils 1.9 0.0 - 4.0 03/20 [facility] /2015 HEMATOLOGY Basophils 0.6 0.0 - 1.0 03/20 [facility] /2015 HEMATOLOGY Monocytes # 0.6 0.0 - 0.8 03/20 [facility] /2015 HEMATOLOGY Eosinophils 0.1 0.0 - 0.5 03/20 [facility] # /2015 HEMATOLOGY Segs-Bands # 3.9 1.5 - 8.1 03/20 [facility] /2015 HEMATOLOGY Lymphocytes 2.6 1.0 - 5.5 03/20 [facility] # /2015 HEMATOLOGY MCH 27.9 27.0 - 03/20 [facility] 31.0 HEMATOLOGY RBC 3.23 4.70 - 03/20 [facility] 6.10 HEMATOLOGY Hgb 9.0 14.0 - 03/20 [facility] 18.0 /2015 HEMATOLOGY Hct 27.1 42.0 - 03/20 [facility] 54.0 /2015 HEMATOLOGY MCV 84.0 80.0 - 03/20 [facility] 94.0 /2015 HEMATOLOGY WBC 7.2 3.7 - 10.4 03/20 [facility] /2015 HEMATOLOGY MCHC 33.2 32.0 - 03/20 [facility] 36.0 /2015 HEMATOLOGY Platelet 333 133 - 450 03/20 [facility] /2015 HEMATOLOGY MPV 7.6 7.4 - 10.4 03/20 [facility] /2015 HEMATOLOGY RDW 15.3 11.5 - 03/20 [facility] 14.5 /2015 ANEMIA Folate Lvl 25.2 >=3.0 03/18 [facility] STUDY ng/mL /2015 ANEMIA Vitamin B12 1112 254 - 1320 03/18 [facility] STUDY Lvl /2016 CHEM PANEL VITAMIN B1 208.6 66.5 - 12 Result [facility] (THIAMINE) 200.0 /2016 Comment: WHOLE BLOOD Performed At: [facility]
[address] [place] [place], [place] [id number]<br/ >Amira Woo MD Ph:[phone] CHEM PANEL Globulin 3.6 2.7 - 4.2 12/24 [facility] /2016 CHEM PANEL A/G Ratio 0.7 0.7 - 1.6 12/24 [facility] /2016 CHEM PANEL AGAP 11.9 10.0 - 12/24 [facility] 20.0 /2016 CHEM PANEL B/C Ratio 6 6 - 25 12/24 [facility] /2016 CHEM PANEL eGFR 90 03/18 Result [facility] /2016 Comment: The eGFR is calculated using the [...] PANEL Alk Phos 132 39 - 136 12/24 [facility] /2016 CHEM PANEL Bili Total 0.4 0.2 - 1.3 /24 [facility] /2016 CHEM PANEL Calcium Lvl 8.6 8.5 - 10.5 /24 [facility] /2016 CHEM PANEL BUN 5 7 - 22 12/24 [facility] /2016 CHEM PANEL AST 16 0 - 37 12/24 [facility] /2016 CHEM PANEL ALT 32 0 - 65 /24 [facility] /2016 CHEM PANEL Albumin Lvl 2.5 3.5 - 5.0 /24 [facility] /2016 CHEM PANEL Total 6.1 6.4 - 8.4 12/24 [facility] Protein /2015 CHEM PANEL Creatinine 0.78 0.50 - 03/18 [facility] Lvl 1.40 /2016 CHEM PANEL Chloride Lvl 107 95 - 109 03/18 [facility] /2016 CHEM PANEL Sodium Lvl 143 135 - 145 03/18 [facility] /2016 CHEM PANEL CO2 28 24 - 32 03/18 [facility] /2016 CHEM PANEL Potassium 3.9 [...] Segs-Bands # 5.3 1.5 - 8.1 03/18 [facility] /2015 HEMATOLOGY Basophils 0.7 0.0 - 1.0 03/18 [facility] /2015 HEMATOLOGY Basophils # 0.1 0.0 - 0.2 03/18 [facility] /2016 HEMATOLOGY Eosinophils 0.1 0.0 - 0.5 03/18 [facility] # /2015 HEMATOLOGY Lymphocytes 2.3 1.0 - 5.5 03/18 [facility] # /2015 HEMATOLOGY Monocytes # 0.5 0.0 - 0.8 03/18 [facility] /2016 HEMATOLOGY Sed Rate 74 0 - 15 03/18 [facility] /2016 HEMATOLOGY WBC 8.3 3.7 - 10.4 03/18 [facility] /2015 HEMATOLOGY RBC 3.31 4.70 - 03/18 [facility] 6.10 /2015 HEMATOLOGY Hgb 9.2 14.0 - 03/18 [facility] 18.0 /2015 HEMATOLOGY MCV 85.0 80.0 - 03/18 [facility] 94.0 /2015 HEMATOLOGY MCH 27.8 27.0 - 03/18 [facility] 31.0 /2015 HEMATOLOGY Hct 28.2 42.0 - 03/18 [facility] 54.0 /2016 HEMATOLOGY RDW 15.0 11.5 - 03/18 [facility] 14.5 /2016 HEMATOLOGY Platelet 370 133 - 450 03/18 [facility] /2015 HEMATOLOGY MPV 7.7 7.4 - 10.4 03/18 [facility] /2015 HEMATOLOGY MCHC 32.7 32.0 - 03/18 [facility] 36.0 /2016 IMMUNOLOGY C-REACTIVE 20.1 <=2.9 mg/L 03/18 [facility] CHEM PANEL Globulin 3.5 2.7 - 4.2 03/17 [facility] CHEM PANEL A/G Ratio 0.7 0.7 - 1.6 03/17 [facility] CHEM PANEL AGAP 11.6 10.0 - 03/17 [place] 20.0 [facility] CHEM PANEL B/C Ratio 5 6 - 25 03/17 [facility] CHEM PANEL Albumin Lvl 2.4 3.5 - 5.0 03/17 [facility] CHEM PANEL Calcium Lvl 8.5 8.5 - 10.5 03/17 Ethan [facility] CHEM PANEL Total 5.9 6.4 - 8.4 03/17 Protein [facility] CHEM PANEL ALT 35 0 - 65 03/17 [facility] CHEM PANEL Alk Phos 120 39 - 136 03/17 [facility] CHEM PANEL AST 18 0 - 37 03/17 [facility] CHEM PANEL Glucose Lvl 100 70 - 99 03/17 [facility] CHEM PANEL CO2 27 24 - 32 03/17 [facility] CHEM PANEL Creatinine 0.86 0.50 - 03/17 [place] Lvl 1.40 [facility] CHEM PANEL Chloride Lvl 106 95 - 109 03/17 [place] [facility] CHEM PANEL BUN 4 7 - 22 03/17 [facility] CHEM PANEL Potassium 3.6 3.5 - 5.1 03/17 [facility] Lvl /2015 [facility] CHEM PANEL Sodium Lvl 141 135 - 145 03/17 [place] [facility] CHEM PANEL eGFR 86 03/17 [facility] Comment: The Medical eGFR is Center calculated [...] Bili Total 0.4 0.2 - 1.3 03/17 [facility] HEMATOLOGY MPV 7.7 7.4 - 10.4 03/17 [facility] HEMATOLOGY Platelet 357 133 - 450 03/17 [facility] HEMATOLOGY RBC 3.05 4.70 - 03/17 [place] 6.10 [facility] HEMATOLOGY WBC 8.4 3.7 - 10.4 03/17 [facility] HEMATOLOGY Hgb 8.6 14.0 - 03/17 [place] 18.0 [facility] HEMATOLOGY Hct 26.4 42.0 - 03/17 [place] 54.0 [facility] HEMATOLOGY MCH 28.1 27.0 - 03/17 [place] 31.0 [facility] HEMATOLOGY MCV 86.3 80.0 - 03/17 [place] 94.0 [facility] HEMATOLOGY RDW 14.8 11.5 - 03/17 [place] 14.5 [facility] HEMATOLOGY MCHC 32.5 32.0 - 03/17 [place] 36.0 [facility] HEMATOLOGY Segs-Bands # 5.5 1.5 - 8.1 03/17 as [facility] HEMATOLOGY Basophils 0.8 0.0 - 1.0 03/17 [facility] HEMATOLOGY Monocytes # 0.6 0.0 - 0.8 03/17 a s [facility] HEMATOLOGY Lymphocytes 2.1 1.0 - 5.5 03/17 [place] # /2015 [facility] HEMATOLOGY Basophils # 0.1 0.0 - 0.2 03/17 s /2015 [facility] HEMATOLOGY Eosinophils 0.1 0.0 - 0.5 03/17 [facility] # [facility] HEMATOLOGY Lymphocytes 24.9 20.0 - 03/17 [place] 40.0 [facility] HEMATOLOGY Segs 66.2 45.0 - 03/17 [place] 75.0 [facility] HEMATOLOGY Eosinophils 1.3 0.0 - 4.0 03/17 s [facility] HEMATOLOGY Monocytes 6.8 2.0 - 12.0 03/17 [facility] CHEM PANEL Magnesium 2.1 1.8 - 2.4 03/16 [facility] Lvl [facility] CHEM PANEL Phosphorus 3.4 2.5 - 4.5 03/16 [facility] CHEM PANEL eGFR 87 03/16 [facility] Comment: The [facility] eGFR is Center calculated using the CKD-EPI [...] PANEL Total 5.9 6.4 - 8.4 03/16 [facility] CHEM PANEL AST 19 0 - 37 03/16 [facility] CHEM PANEL ALT 34 0 - 65 03/16 [facility] CHEM PANEL Bili Total 0.3 0.2 - 1.3 03/16 [facility] CHEM PANEL Alk Phos 121 39 - 136 03/16 [facility] CHEM PANEL Albumin Lvl 2.4 3.5 - 5.0 03/16 [facility] CHEM PANEL BUN 5 7 - 22 03/16 [facility] CHEM PANEL Glucose Lvl 119 70 - 99 03/16 [facility] CHEM PANEL Sodium Lvl 141 135 - 145 03/16 [facility] CHEM PANEL Creatinine 0.85 0.50 - 03/16 [place] Lvl 1.40 /2015 [facility] CHEM PANEL Chloride Lvl 108 95 - 109 03/16 a s [facility] CHEM PANEL Potassium 3.9 3.5 - 5.1 03/16 [place] Lvl /2015 [facility] CHEM PANEL Calcium Lvl 8.4 8.5 - 10.5 03/16 [facility] CHEM PANEL CO2 25 24 - 32 03/16 [facility] CHEM PANEL B/C Ratio 6 6 - 25 03/16 [facility] CHEM PANEL AGAP 11.9 10.0 - 03/16 [place] 20.0 [facility] CHEM PANEL A/G Ratio 0.7 0.7 - 1.6 03/16 [facility] CHEM PANEL Globulin 3.5 2.7 - 4.2 03/16 [facility] HEMATOLOGY Eosinophils 0.1 0.0 - 0.5 03/16 [place] # /2015 [facility] HEMATOLOGY Monocytes # 0.6 0.0 - 0.8 03/16 a s [facility] HEMATOLOGY Basophils # 0.1 0.0 - 0.2 03/16 [place] [facility] HEMATOLOGY Segs 65.0 45.0 - 03/16 [place] 75.0 [facility] HEMATOLOGY Lymphocytes 1.9 1.0 - 5.5 03/16 [place] # /2015 [facility] HEMATOLOGY Segs-Bands # 4.9 1.5 - 8.1 03/16 [place] [facility] HEMATOLOGY Basophils 1.0 0.0 - 1.0 03/16 [facility] HEMATOLOGY Monocytes 7.3 2.0 - 12.0 03/16 [facility] HEMATOLOGY Lymphocytes 25.3 20.0 - 03/16 [place] 40.0 2016 [facility] HEMATOLOGY Eosinophils 1.4 0.0 - 4.0 03/16 [place] [facility] HEMATOLOGY Platelet 338 133 - 450 03/16 /2015 [facility] HEMATOLOGY RDW 14.6 11.5 - 03/16 [place] 14.5 /2015 [facility] HEMATOLOGY MPV 7.7 7.4 - 10.4 03/16 [facility] HEMATOLOGY MCV 89.8 80.0 - 03/16 [place] 94.0 /2015 [facility] HEMATOLOGY MCH 27.7 27.0 - 03/16 [place] 31.0 /2015 [facility] HEMATOLOGY MCHC 30.9 32.0 - 03/16 [place] 36.0 /2015 [facility] HEMATOLOGY Hgb 8.6 14.0 - 03/16 [place] 18.0 [facility] HEMATOLOGY RBC 3.09 4.70 - 03/16 [place] 6.10 [facility] HEMATOLOGY WBC 7.6 3.7 - 10.4 03/16 [facility] HEMATOLOGY Hct 27.8 42.0 - 03/16 [place] 54.0 [facility] CHEM PANEL Phosphorus 3.1 2.5 - 4.5 03/15 [facility] CHEM PANEL Magnesium 2.3 1.8 - 2.4 03/15 [facility] Lvl [facility] CHEM PANEL AST 20 0 - 37 03/15 [facility] CHEM PANEL Alk Phos 108 39 - 136 03/15 [facility] CHEM PANEL Bili Total 0.4 0.2 - 1.3 03/15 [facility] CHEM PANEL Albumin Lvl 2.2 3.5 - 5.0 03/15 [facility] CHEM PANEL Total 5.6 6.4 - 8.4 03/15 Protein [facility] CHEM PANEL Calcium Lvl 8.2 8.5 - 10.5 03/15 [place] [facility] CHEM PANEL ALT 40 0 - 65 03/15 [facility] CHEM PANEL eGFR 87 03/15 [facility] Comment: The Medical eGFR is Center calculated [...] CHEM PANEL Creatinine 0.84 0.50 - 03/15 [place] Lvl 1.40 [facility] CHEM PANEL Sodium Lvl 140 135 - 145 03/15 2015 [facility] CHEM PANEL Glucose Lvl 125 70 - 99 03/15 [facility] CHEM PANEL Potassium 4.2 3.5 - 5.1 03/15 [facility] Lvl [facility] CHEM PANEL Chloride Lvl 106 95 - 109 03/15 [facility] CHEM PANEL BUN 10 7 - 22 03/15 2015 [facility] CHEM PANEL CO2 26 24 - 32 03/15 [facility] CHEM PANEL AGAP 12.2 10.0 - 03/15 [place] 20.0 [facility] CHEM PANEL A/G Ratio 0.6 0.7 - 1.6 03/15 [facility] CHEM PANEL B/C Ratio 12 6 - 25 03/15 [facility] CHEM PANEL Globulin 3.4 2.7 - 4.2 03/15 [facility] HEMATOLOGY Eosinophils 1.6 0.0 - 4.0 03/15 [facility] HEMATOLOGY Monocytes 6.6 2.0 - 12.0 03/15 [facility] HEMATOLOGY Lymphocytes 22.1 20.0 - 03/15 [place] 40.0 [facility] HEMATOLOGY Segs 68.8 45.0 - 03/15 [place] 75.0 [facility] HEMATOLOGY Monocytes # 0.5 0.0 - 0.8 03/15 [facility] HEMATOLOGY Basophils # 0.1 0.0 - 0.2 03/15 [facility] HEMATOLOGY Eosinophils 0.1 0.0 - 0.5 03/[facility] HEMATOLOGY Segs-Bands # 5.5 1.5 - 8.1 03/15 [facility] HEMATOLOGY Basophils 0.9 0.0 - 1.0 03/15 [facility] HEMATOLOGY Lymphocytes 1.8 1.0 - 5.5 03/15 [place] # /2015 [facility] HEMATOLOGY Hct 23.5 42.0 - 03/15 [place] 54.0 /2015 [facility] HEMATOLOGY RBC 2.73 4.70 - 03/15 [place] 6.10 /2015 [facility] HEMATOLOGY Hgb 7.6 14.0 - 03/15 [place] 18.0 /2015 [facility] HEMATOLOGY RDW 14.9 11.5 - 03/15 [place] 14.5 /2015 [facility] HEMATOLOGY Platelet 285 133 - 450 03/15 [facility] HEMATOLOGY MPV 8.0 7.4 - 10.4 03/15 [facility] HEMATOLOGY WBC 7.9 3.7 - 10.4 03/15 [facility] HEMATOLOGY MCHC 32.4 32.0 - 03/15 [place] 36.0 /2015 [facility] HEMATOLOGY MCV 86.0 80.0 - 03/15 [place] 94.0 /2015 [facility] HEMATOLOGY MCH 27.8 27.0 - 03/15 [place] 31.0 /2015 [facility] CHEM PANEL Magnesium 1.9 1.8 - 2.4 03/14 [facility] Lvl [facility] CHEM PANEL Phosphorus 3.2 2.5 - 4.5 03/14 [facility] IMMUNOLOGY Aspergillus Negative Neg:<1:1 03/13 [place] fum[place] [facility] IMMUNOLOGY Aspergillus Negative Neg:<1:1 03/13 [place] flavus [facility] IMMUNOLOGY Aspergillus Negative Neg:<1:1 03/13 [place] niger [facility] IMMUNOLOGY Blastomyces Negative Neg:<1:1 03/13 [place] Ab [facility] IMMUNOLOGY Coccidiodes Negative Neg:<1:1 03/13 [place] by ID /2015 [facility] IMMUNOLOGY Histoplasma Negative Neg:<1:1 03/13 [facility] [place] Comment: Medical Performed At: [facility]
[address] [place], [place] [id number]<br/ >Amira Woo MD Ph:[phone] URINE AND UA Sq Epi None Seen 03/13 [facility] STOOL [facility] URINE AND UA <=1.0 0.1 - 1.0 03/13 [facility] STOOL Urobilinogen mg/dL /2015 [facility] URINE AND UA Mucus Few /LPF None Seen 03/13 [facility] STOOL /LPF /2015 [facility] URINE AND UA WBC 2 0 - 5 03/13 [facility] STOOL /2015 [facility] URINE AND UA Leuk Est Negative Negative 03/13 [facility] STOOL (03/13/16 11:44 AM) /2015 [facility] URINE AND UA RBC <1 0 - 2 03/13 [facility] STOOL [facility] URINE AND UA Nitrite Negative Negative 03/13 [facility] STOOL (03/13/16 11:44 AM) /2015 [facility] URINE AND UA Blood Negative Negative 03/13 [facility] (03/13/16 11:44 AM) /2015 [facility] URINE AND UA Spec Grav 1.008 <=1.030 03/13 [facility] URINE AND UA Turbidity Clear Clear 03/13 [facility] (03/13/16 11:44 AM) /2015 [facility] URINE AND UA pH 6.5 5.0 - 8.0 03/13 [facility] URINE AND UA Color Yellow Yellow 03/13 [facility] STOOL *NA* /2015 Medical (03/13/16 11:44 AM) Cent er URINE AND UA Ketones Negative Negative 03/13 [facility] STOOL mg/dL mg/dL [facility] URINE AND UA Bili Negative Negative 03/13 [facility] STOOL *NA* [facility] (03/13/16 11:44 AM) Cent er URINE AND UA Protein Negative Negative 03/13 [facility] STOOL mg/dL mg/dL [facility] URINE AND UA Glucose Negative Negative 03/13 [facility] STOOL mg/dL mg/dL [facility] HEMATOLOGY Plt Morph Normal 03/11 [facility] (03/11/16 5:27 AM) /2015 [facility] HEMATOLOGY Polychrom Slight 03/11 [facility] HEMATOLOGY Macrocyte 1+ None Seen 03/10 [facility] *ABN* [facility] (03/10/16 9:46 AM) Cente r HEMATOLOGY Bands 0.0 0.0 - 11.0 03/08 [facility] /2015 [facility] HEMATOLOGY Metamyelocyt 1.0 0.0 - 1.0 03/08 [place] as es [facility] HEMATOLOGY Plt Morph Normal 03/08 [facility] (03/08/16 5:37 AM) [facility] HEMATOLOGY Atypical 0.0 <=0.0 % 03/08 [facility] Lymphs /2015 [facility] HEMATOLOGY Myelocytes 1.0 <=0.0 % 03/08 [facility] PARATHYROI Ca Ion WB 1.05 1.05 - 03/07 [facility] D PROFILE 1. [facility] PARATHYROI Ca Norm WB 1.06 1.05 - 03/07 [facility] D PROFILE . [facility] CHEM PANEL Procalcitoni 1.24 0.00 - 03/06 [facility] n Lvl 0. [facility] HEMATOLOGY Sed Rate 100 0 - 15 03/06 [facility] IMMUNOLOGY C-REACTIVE 276.0 <=2.9 mg/L 03/06 [facility] PROTEIN /2015 [facility] HEMATOLOGY Anisocyte 1+ None Seen 03/05 [facility] *ABN* [facility] (03/05/16 8:46 AM) Cente r HEMATOLOGY Plt Morph Normal 03/05 [facility] (03/05/16 8:46 AM) [facility] HEMATOLOGY Metamyelocyt 2.0 0.0 - 1.0 03/05 [place] as es [facility] HEMATOLOGY Atypical 0.0 <=0.0 % 03/05 [facility] Lymphs [facility] HEMATOLOGY Bands 1.0 0.0 - 11.0 03/05 [facility] PARATHYROI Ca Ion WB 1.09 1.05 - 03/04 [facility] D PROFILE 1. [facility] PARATHYROI Ca Norm WB 1.07 1.05 - 03/04 [facility] D PROFILE 1. [facility] URINE AND UA Sq Epi None Seen 03/04 [facility] STOOL /2015 [facility] URINE AND UA Hyal Cast 3 0 - 2 03/04 [facility] STOOL [facility] URINE AND UA [place] Yeast Few /HPF None Seen 03/04 Ethan as STOOL /HPF [facility] URINE AND UA Hyph Occasional None Seen 03/04 [facility] STOOL Yeast *ABN* [facility] (03/04/16 11:57 AM) Cent er URINE AND UA <=1.0 0.1 - 1.0 03/04 [facility] STOOL Urobilinogen mg/dL /2015 [facility] URINE AND UA Amorph Occasional None Seen 03[place]04 [facility] [place] /HPF /HPF /2016 [facility] URINE AND UA WBC 14 0 - 5 03/04 [place] STOOL Medical [place] URINE AND UA RBC 3 0 - 2 03/04 [place] STOOL [facility] URINE AND UA Bacteria Occasional None [place] /HPF /HPF /2015 [facility] URINE AND UA Mucus Few /LPF None Seen 03/04 [facility] STOOL /LPF /2015 [facility] URINE AND UA Glucose Negative Negative 03/04 [place] STOOL mg/dL mg/dL [facility] URINE AND UA pH 6.0 5.0 - 8.0 03/04 [facility] STOOL [facility] URINE AND UA Spec Grav 1.018 <=1.030 03/04 [facility] STOOL [facility] URINE AND UA Color Yellow Yellow 03/04 [facility] STOOL *NA* /2015 Medical (03/04/16 11:57 AM) Cent er URINE AND UA Turbidity Clear Clear 03/04 [facility] STOOL (03/04/16 11:57 AM) /2015 [facility] URINE AND UA Blood Negative Negative 03/04 [facility] STOOL (03/04/16 11:57 AM) [facility] URINE AND UA Bili Negative Negative 03/04 [facility] STOOL *NA* Medical (03/04/16 11:57 AM) Cent er URINE AND UA Nitrite Negative Negative 03/04 [facility] STOOL (03/04/16 11:57 AM) /2015 [facility] URINE AND UA Leuk Est Small Negative 03/04 [facility] STOOL *ABN* Medical (03/04/16 11:57 AM) Cent er URINE AND UA Protein 50 mg/dL Negative 03/04 [place] STOOL mg/dL [facility] URINE AND UA Ketones Negative Negative 03/04 [place] STOOL mg/dL mg/dL /2015 [facility] CARDIAC Troponin-I 0.03 0.00 - 03/04 [place] ENZYMES 0.40 [facility] CARDIAC Total CK 183 12 - 191 03/04 [place] ENZYMES [facility] [facility] [place] CARDIAC CK MB Index 0.5 0.0 - 2.5 03/04 [place] [facility] [place] CARDIAC CK MB 0.9 0.5 - 3.6 03/04 [place] EN[facility]ES 2016 [facility] [place] CHEM PANEL Bili Direct 0.1 0.0 - 0.3 03/04 [facility] CHEM PANEL Bili 0.3 0.0 - 1.0 03/04 [place] Indirect /2015 [facility] TOXICOLOGY Vanco Tr TND 1330 03/04 [place] [facility] TOXICOLOGY Vanco Tr <0.8 03/04 [facility] [place] CHEM PANEL Lactic Acid 1.3 0.5 - 2.2 03/03 [place] [facility] [place] CARDIAC CK MB Index 1.6 0.0 - 2.5 02/28 [place] ENZYMES /2015 [facility] [place] CARDIAC CK MB 2.8 0.5 - 3.6 02/28 [facility] ENZYMES /2015 [facility] [place] CARDIAC Troponin-I 0.02 0.00 - 02/28 [facility] ENZYMES 0.40 /2015 [facility] [place] CARDIAC Total CK 176 12 - 191 02/28 [facility] ENZYMES [facility] [place] BLOOD BANK RBC product Product available 02/28 [facility] RESULTS (02/29/16 12:20 PM) /2015 [facility] TOXICOLOGY Vanco Tr TND 0030 02/28 [facility] [place] TOXICOLOGY Vanco Tr 9.4 02/28 [place] [facility] [place] BLOOD BANK Antibody Negative 02/27 [facility] RESULTS Scrn (02/28/16 12:45 PM) /2015 [facility] BLOOD BANK ABO/Rh B POS 02/27 [facility] RESULTS /2015 [facility] [place] URINE AND UA <=1.0 0.1 - 1.0 02/27 [facility] STOOL Urobilinogen mg/dL /2015 [facility] [place] URINE AND UA RBC 168 0 - 2 02/27 [facility] STOOL /2016 [facility] [place] URINE AND UA Mucus Few /LPF None Seen 02/27 [facility] STOOL /LPF /2015 [facility] [place] URINE AND UA Sq Epi None Seen 02/27 [facility] STOOL /2015 [facility] [place] URINE AND UA Leuk Est Small Negative 02/27 [facility] STOOL *ABN* /2015 [facility] (02/28/16 8:36 AM) [place] URINE AND UA WBC 9 0 - 5 02/27 [facility] STOOL /2015 [facility] [place] URINE AND UA Color Yellow Yellow 02/27 [facility] STOOL *NA* /2015 [facility] (02/28/16 8:36 AM) [place] URINE AND UA Spec Grav 1.037 <=1.030 02/27 [facility] STOOL /2016 [facility] [place] URINE AND UA Turbidity Clear Clear 02/27 [facility] STOOL (02/28/16 8:36 AM) /2015 [facility] URINE AND UA Bili Negative Negative 02/27 [facility] STOOL *NA* /2015 Medical (02/28/16 8:36 AM) Center URINE AND UA Blood Moderate Negative 02/27 [facility] STOOL *ABN* /2015 [facility] (02/28/16 8:36 AM) [place] URINE AND UA Nitrite Negative Negative 02/27 [facility] STOOL (02/28/16 8:36 AM) [facility] URINE AND UA Glucose Negative Negative 02/27 [facility] STOOL mg/dL mg/dL [facility] [place] URINE AND UA Ketones Negative Negative 02/27 [facility] STOOL mg/dL mg/dL [facility] [place] URINE AND UA pH 6.0 5.0 - 8.0 02/27 [facility] STOOL [facility] [place] URINE AND UA Protein 70 mg/dL Negative 02/27 [facility] STOOL mg/dL [facility] [place] CHEM PANEL Lactic Acid 1.8 0.5 - 2.2 02/26 [facility] [place] CHEM PANEL Lactic Acid 2.4 0.5 - 2.2 02/26 [facility] [place] PARATHYROI Ca Norm WB 1.19 1.05 - 02/26 [facility] D PROFILE 1. [facility] [place] PARATHYROI Ca Ion WB 1.13 1.05 - 02/26 [facility] D PROFILE 1. [facility] [place] BLOOD BANK ABO/Rh B POS 02/24 [facility] RESULTS [facility] [place] BLOOD BANK Antibody Negative 02/24 [facility] RESULTS Scrn (02/25/16 4:30 AM) [facility] LIPIDS CHD Risk 2.76 4.00 - 02/23 [place] 7.30 [facility] [place] LIPIDS LDL 37 <=99 mg/dL 02/23 [facility] (Calculated) [facility] [place] LIPIDS VLDL 23 02/23 [facility] [place] LIPIDS Trig 117 <=149 02/23 [facility] mg/dL [facility] [place] LIPIDS HDL 34 >=61 mg/dL 02/23 [facility] [place] LIPIDS Chol 94 <=199 02/23 [facility] mg/dL [facility] [place] SPECIAL Hgb A1C 5.9 <=5.6 % 02/23 [facility] CHEMISTRY /2015 [facility] [place] HEMATOLOGY PT 15.5 12.0 - 02/21 [place] 14.7 [facility] [place] HEMATOLOGY INR 1.20 0.85 - 02/21 [facility] [place] 1.17 [facility] [place] HEMATOLOGY PTT 27.0 22.9 - 02/21 [facility] 35.8 [facility] [place] BLOOD BANK ABO/Rh B POS 02/20 [facility] RESULTS /2015 [facility] [place] BLOOD BANK Antibody Negative 02/20 [facility] RESULTS Scrn (02/21/16 5:56 AM) /2015 [facility] BACTERIAL MRSA by PCR Negative 02/07 [facility] - SEROLOGY (02/08/16 3:30 PM) /[facility] Vitamin D, 29 30 - 100 02/07 [facility] 25-[place], Total [facility] [place] HEMATOLOGY PT 13.1 12.0 - 02/07 [facility] 14.7 [facility] [place] HEMATOLOGY PTT 29.2 22.9 - 02/07 [facility] 35.8 [facility] [place] HEMATOLOGY INR 0.97 0.85 - 02/07 [facility] 1. [facility] [place] IMMUNOLOGY HIV 1/2 Ab Negative Negative 02/07 [facility] *NA* Medical (02/08/16 3:30 PM) Cente r IMMUNOLOGY Hep C Ab Negative 02/07 [facility] *NA* Medical (02/08/16 3:30 PM) Cente r URINE AND Micro? Not Indicated 02/07 [facility] STOOL *NA* Medical (02/08/16 3:30 PM) Cente r URINE CHEM U Cotinine Negative Negative 02/07 [facility] Lvl *NA* Medical (02/08/16 3:30 PM) [...] described. Dakotah Carter MD On 11/04/2019 08:53:06; ALICIA-B [id number] Spine lumbar wo contrast PROCEDURE INFORMATION: 11/03/2019 [facility] MRI Exam: MR Lumbar Spine Without [...] Olga Farmer MD On 11/03/2019 18:32 :53; [id number] Spine Thoracic wo PROCEDURE INFORMATION: 11/03/2019 [facility] herusty contrast MRI Exam: MR Thoracic Spine Without [...] stenosis. Dakotah Carter MD On 11/04/2019 08:43:44; BERNARDA [id number] Chest Pulmonary Embolism Radiation Dose CTDIVOL = 0 ( mGy): DLP = 798.01 (mGy-cm) 03/07/2019 KEVIN Vanegas CTA PROCEDURE INFORMATION: Exam: CT Angiography Chest [...] spine. Enrike Giordano MD On 03/07/2019 22:11:28; GENE [id number] Chest 1view DX PROCEDURE INFORMATION: 03/07/2019 KEVIN [...] contrast CT CT CHEST WITH CONTRAST 05/02/2018 So [facility] CLINICAL INDICATION: Gastroesophageal reflux. S olitary pulmonary [...] reduced completely on the upright view. 04/24/2018 [facility] Esophagus Function DX Barium Swallow w Esophagus [...] minute. Reference Air Kerma: 185.63 mGy SL: [id number] Arthrocentesis Major EXAM: FLUOROSCOPY-GUIDED LEFT SHOULDER ASPIRATION 04/22/2018 [facility] Joint DX DATE: 04/22/2018 13:12 DRAWER UPFITTER INDICATION: - M19.012 Primary osteoarthritis, left shoulder [...] contrast MRI of the LEFT shoulder 04/18/2018 [facility] MRI INDICATION: Shoulder pain. COMPARISON: No prior studies available for marin newman. TECHNIQUE: Multiplanar multi sequence MRI pre and [...] the glenohumeral joint. 5. Biceps tenosynovitis. SL: [id number] Spine lumbar wo contrast Clinical Indication: M54.16 Radiculopathy, lumbar region - M54.16 Radiculopathy, lumbar region 77-year-old male with back pain for many years. Patient had lumbar surgery done in 2017 weakness in the right leg. 04/16/2018 [facility] [place] MRI Comparison: Plain film of th e [...] since the magnetic resonance imaging 03/16/2016. SL: [id number] Spine Thoracic wo Patient Name: GENARO KAUR 04/16/2018 [facility] [place] contrast MRI : 1940; Age: 77 years y/o Male MR: [id number] Study: Spine Thoracic wo contrast MRI 04/16/2018 10:57 DRAWER UPFITTER Ordering Physician: Agnieszka Brambila MD Clinical Indication: [...] mild spinal canal stenosis at T10-T11. SL: [id number] Spine cervical wo Study: Spine cervical wo contrast MRI 04/16/19 19 [facility] contrast MRI Clinical Indication: M54.12 Radiculopathy, cervical [...] with severe bilateral neural foraminal narrowing. SL: [id number] Chest wo contrast CT EXAM: CT chest [...] PA AND LATERAL CHEST X RAY 018 [facility] DX DATE:- 05/03/2017 12:49 PM DRAWER UPFITTER . ORDERING PHYSICIAN: Kasandra Alexandra MD CLINICAL [...] series DX EXAMINATION: Right shoulder series 05/01/2017 [facility] HISTORY: Right rotator cuff arthropathy FINDINGS: 2 [...] basilar atelectasis is noted. IMPRESSION: 1. Reverse [id number] r ight total shoulder arthroplasty in unchanged near- anatomic alignment with interval placement of a surgical drain. Shoulder series DX HISTORY: - AP and [place] in PACU 8 [facility] TECHNIQUE: Frontal and [place] views of the righ t shoulder. COMPARISON: Study from earlier today. FINDINGS: Stable alignment o f right total shoulder arthroplasty. No evidence of acute fracture or dislocation. Linear atelectasis is noted within the right lung. IMPRESSION: Stable surgical change as above. [id number] Shoulder series DX HISTORY: Trauma - Right shoulder pain 2017 [facility] TECHNIQUE: Internal and exte rnal rotation views [...] change as above. No acute osseous injury. [id number] Shoulder series DX Patient Name: GENARO KAUR 7 [facility] : 1940; Age: 76 years Male MR: [id number] Study: Shoulder series DX 03/18/2017 8:38 PM DRAWER UPFITTER CLINICAL INDICATION: - s/p reduction COMPARISON: Earlier [...] DX Exam: Right Shoulder series DX 03/18/2017 [facility] Clinical Indication: - Shoulder pain and possib [...] Clinical Information : Postoperative art hroplasty. 01/26/2017 [facility] : 1940 Sex: Male. Technique: 2 post [...] abnormality. No evidenc e for obstruction. SL: [id number] Chest 2 views DX PROCEDURE: Chest Radiograph. [...] subsegmental atelectasis in the right midlung zone. SL:[id number] Abdomen AP DX Procedure: Abdominal Radiographs. 03/17/2016 [...] degenerative change involvi ng the lumbosacral spine. [id number] Spine Sacrum wo contrast Examination: Magnetic resona nce imaging sacrum without contrast 03/16/2016 [facility] MRI DATE: 03/17/2016 Center INDICATION: Back pain. Lumbar [...] WITHOUT CONTRAST 03/16/2016 [facility] MRI DATE: 03/16/2016 at 1839 hours. Center [...] XR LUMBAR SPINE 3 VIEWS 03/14/20 16 [facility] DX DATE: 03/14/2016 at 0943 hours C [...] WITHOUT CONTRAST 03/13/2016 [facility] DATE: 03/13/2016 11:05 AM DRAWER UPFITTER Ce nter INDICATION: Cough and fever COMPARISON: [...] 1 VIEW 03/08/2016 [facility] DATE: 03/08/2016 11:13 AM DRAWER UPFITTER Ce nter INDICATION: Abdominal distension ADDITIONAL INFORMATION: None. COMPARISON: 03/05/2016 TECHNIQUE: AP view of the abdomen. FINDINGS: NG tube side port overlies t he GE junction. Recommend further advancement. Lumbar surgical hardware is stable. No small or large bowel dilation. Impression: Nonobstructive bowel gas pattern. Abdomen 1 v for Placement EXAM: XR ABDOMEN 1 VIEW 03/05/2016 [facility] DX DATE: 03/05/2016 12:11 PM DRAWER UPFITTER Ce nter INDICATION: Tube Reposition NG COMPARISON: [...] 1 VIEW 03/05/2016 [facility] DATE: 03/05/2016 at 0922 hours C enter [...] DX EXAM: XR CHEST 1 VIEW 03/04/2016 [facility] DATE: 03/04/2016 2:47 PM DRAWER UPFITTER Geoff ter INDICATION: Dyspnea COMPARISON: 03/02/2016 FINDINGS: [...] 1 VIEW 03/04/2016 [facility] DATE: 03/04/2016 at 0917 hours C enter [...] 1 VIEW 03/03/2016 [facility] DATE: 03/03/2016 9:00 AM DRAWER UPFITTER Cent er INDICATION: Abdominal distension COMPARISON: 03/01/2016 [...] Placement EXAM: XR CHEST 1 VIEW 03/02/2016 [facility] DX DATE: 03/02/2016 2:43 PM DRAWER UPFITTER Cent er INDICATION: PICC Line Placement COMPARISON: [...] CONTRAS T 03/01/2016 [facility] contrast CT DATE: 03/01/2016 10:34 AM DRAWER UPFITTER [place] INDICATION: Abdominal distension ADDITIONAL INFORMATION: [...] WITH CONTRAST 03/01/2016 [facility] DATE: 03/01/2016 10:34 AM DRAWER UPFITTER Geoff ter INDICATION: Abdominal distension COMPARISON: 02/23/2016 [...] 2.7 cm. respectively. The cardiothoracic radio measures 12/. No significant pericardial effusion is present. While [...] 1 VIEW 03/01/2016 [facility] DATE: 03/01/2016 3:00 AM DRAWER UPFITTER Cent er INDICATION: Abdominal distension COMPARISON: 02/29/2016 at 1819. TECHNIQUE: AP view of the abdomen. IMPRESSION: 1. A nasogastric tube (tip and side-port) is present projecting over the region of the stomach. 2. Dilated small bowel loops, suggestive of ile us. 3. Abdominal drain in place. 4. Postoperative changes of the lumbosacral spi ne. Chest 1view DX EXAM: [facility]R CHEST [facility]: [facility]01[facility]2016 3:00 AM DRAWER UPFITTER Cent er INDICATION: Abnormal chest sounds COMPARISON: [...] VENOUS DOPPLER 02/29/2016 [facility]at US DATE: 02/29/2016 4:55 PM DRAWER UPFITTER Cent er INDICATION: Tachypnea, unabl e to [...] 1 VIEW 02/29/2016 [facility] DATE: 02/29/2016 5:58 PM DRAWER UPFITTER Cent er INDICATION: Vomiting COMPARISON: 02/29/2016 at [...] DX EXAM: XR CHEST 1 VIEW 02/29/2016 [facility] DATE: 02/29/2016 4:23 PM DRAWER UPFITTER Cent er INDICATION: Chest tightness COMPARISON: 02/27/2016 at [...] 1 VIEW 02/29/2016 [facility] DATE: 02/29/2016 9:00 AM DRAWER UPFITTER Cent er INDICATION: Abdominal distension ADDITIONAL INFORMATION: [...] caliber compared to the prior study. Fecal [place]: Minimal. Bones: No acute abnormalities seen. Soft tissues. Unremarkable. IMPRESSION: 1. Mild small bowel dilatat ion consistent with ileus that is improved since the prior study. 2. Tube(s) and/or catheter(s) as above. Abdomen AP DX EXAM: XR ABDOMEN 1 VIEW 02/28/2016 [facility] DATE: 02/28/2016 9:00 AM DRAWER UPFITTER Cent er INDICATION: Abdominal distension COMPARISON: CT [...] PELVIS WITH CONTRAST [facility] contrast CT DATE: 02/27/2016 12:43 PM DRAWER UPFITTER Geoff ter INDICATION: Abdominal distension ADDITIONAL INFORMATION: [...] 1 VIEW 02/27/2016 [facility] DATE: 02/27/2016 8:33 AM [facility] er INDICATION: Abdominal fullness ADDITIONAL INFORMATION: None. COMPARISON: [facility] 02/27/2016, 0500 hours TECHNIQUE: AP view of the abdomen. Number of im ages: 3 FINDINGS: Transesophageal suction tube: None. Transesophageal feeding tube: None. Other tubes and lines: None. Bowel: Mild to moderate larg e and small bowel dilatation is seen throughout the abdomen and pelvis. Fecal [place]: Minimal. Bones: No acute abnormalitie s seen. [...] DX EXAM: XR CHEST 1 VIEW 02/27/2016 [facility] edical DATE: 02/27/2016 8:33 AM DRAWER UPFITTER Cent er INDICATION: Altered level of consciousness [...] 1 VIEW 02/27/2016 [facility] DATE: 02/27/2016 4:15 AM DRAWER UPFITTER Cent er INDICATION: Abdominal distension ADDITIONAL INFORMATION: [...] dilatation of loops of small bowel. Fecal [place]: Mild. Bones: No acute abnormalitie s seen. [...] DX EXAM: XR CHEST 1 VIEW 02/27/2016 [facility] edical DATE: 02/27/2016 4:14 AM DRAWER UPFITTER Cent er INDICATION: Dyspnea COMPARISON: None. TECHNIQUE: [...] 1 VIEW 02/26/2016 [facility] DATE: 02/26/2016 1:01 PM DRAWER UPFITTER Cent er INDICATION: Abdominal distension ADDITIONAL INFORMATION: None. COMPARISON: None. TECHNIQUE: AP view of the abdomen. Number of im ages: 2 FINDINGS: Transesophageal suction tube: None. Transesophageal feeding tube: None. Other tubes and lines: None. Bowel: There is moderate dilatation of the small bowel and colon. Fecal [place]: Mild. Bones: No acute abnormalities seen. Lowe r lumbar spine fixation hardware seen. Soft tissues. Unremarkable. IMPRESSION: 1. Moderate large and small bowel dilatation that is not significantly changed consistent with ileus versus distal small bowel obstruction. Continued serial follow-up is recommended. 2. Tube(s) and/or catheter(s) as above. Brain wo contrast MRI MRI OF THE BRAIN 02/24/2016 [facility] DATE: 02/24/2016 at 1:41 AM. 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 SL: [id number] Spine cervical wo Addendum: Please note that d edicated bilateral sagittal oblique images of the cervical spine through the bilateral neural foramen were performed. 11/10/2015 [facility]EVIN BURCIAGA [place] contrast MRI Study: Spine cervical wo contrast [...] C3-C4 severe left neural foraminal narrowing. SL: [id number] Spine lumbar w/wo MRI LUMBAR SPINE WITHOUT AND WITH CONTRAST [facility] [place] contrast MRI HISTORY: M54.5 Low back pa [...] Date Comments Source Height 172.72 cm 04/08/2019 [facility] Weight 91.818 04/08/2019 [facility] BMI Calculated 30.78 04/08/2019 [facility] Temperature Oral (F) 97.8 F 03/09/2019 [facility] Heart Rate 99 03/09/2019 [facility] Respitory Rate 18 03/09/2019 [facility] Systolic (mm Hg) 132 03/09/2019 [facility] Diastolic (mm Hg) 79 03/09/[address] [facility] [address] Temperature Oral (F) 97.8 F 03/09/2019 [facility] Heart Rate 84 03/09/2019 [facility] Respitory Rate 18 03/09/2019 [facility] Systolic (mm Hg) 126 03/09/2019 [facility] Diastolic (mm Hg) 79 03/[facility] [facility] Temperature Oral (F) 97.8 F 03/09/2019 [facility] Heart Rate 74 03/09/2019 [facility] Respitory Rate 18 03/09/2019 [facility] Systolic (mm Hg) 118 03/09/2019 [facility] Diastolic (mm Hg) 65 03/09/2019 [facility] [address] Height 172.72 cm 03/07/2019 [facility] Weight 97.3 03/07/2019 [facility] BMI Calculated 32.62 03/07/2019 [facility] Heart Rate 80 [facility] 20 05/18/2018 [facility] Systolic (mm Hg) 117 05/18/2018 [facility] [place] Diastolic (mm Hg) 77 05/18/2018 [facility] Temperature Oral (F) 98 F 05/18/2018 [facility] Temperature Oral (F) 98.2 F 05/18/2018 [facility] Heart Rate 70 05/18/2018 [facility] Respitory Rate 18 05/18/2018 [facility] Systolic (mm Hg) 98 05/18/2018 [facility] Diastolic (mm Hg) 61 05/18/2018 [facility] Temperature Oral (F) 97.5 F 05/18/2018 [facility] Systolic (mm Hg) 114 05/18/2018 [facility] Diastolic (mm Hg) 67 05/18/2018 [facility] Respitory Rate 18 05/18/2018 [facility] Heart Rate 56 05/18/2018 [facility] Weight 95.455 05/17/2018 [facility] Height 175.26 cm 05/17/2018 [facility] BMI Calculated 31.08 05/17/2018 [facility] Height 175.26 cm 05/16/2018 [facility] Weight 95.455 05/16/2018 [facility] BMI Calculated 31.08 05/16/2018 [facility] Systolic (mm Hg) 120 05/06/2018 [facility] Diastolic (mm Hg) 81 05/06/[address] Respitory Rate 16 05/06/2018 [facility] Systolic (mm Hg) 123 05/06/2018 [facility] Diastolic (mm Hg) 81 05/06/[address] Respitory Rate 14 05/06/2018 [facility] Systolic (mm Hg) 110 05/06/2018 [facility] Diastolic (mm Hg) 73 05/06/[address] Respitory Rate 14 05/06/2018 [facility] Weight 95.455 05/06/2018 [facility] BMI Calculated 32 05/06/2018 [facility] Height 172.72 cm 05/06/2018 [facility] Systolic (mm Hg) 150 05/19/2017 [facility] Diastolic (mm Hg) 93 05/19/2017 [facility] Respitory Rate 18 05/19/2017 [facility] Temperature Oral (F) 99.0 F 05/19/2017 [facility] Heart Rate 85 05/19/2017 [facility] Heart Rate 81 05/18/2017 [facility] Temperature Oral (F) 98.3 F 05/18/2017 [facility] Respitory Rate 18 05/18/2017 [facility] Systolic (mm Hg) 113 05/18/2017 [facility] Diastolic (mm Hg) 74 05/18/2017 [facility] Heart Rate 86 05/18/2017 [facility] Respitory Rate 17 05/18/2017 [facility] Systolic (mm Hg) 145 05/18/2017 [facility] Diastolic (mm Hg) 89 05/18/2017 [facility] Temperature Oral (F) 98.3 F 05/18/2017 [facility] Height 175.26 cm 05/15/2017 [facility] Weight 94.545 05/15/2017 [facility] BMI Calculated 30.78 05/15/2017 [facility] Height 175.26 cm 05/15/2017 [facility] Weight 95.455 05/15/2017 [facility] BMI Calculated 31.08 05/15/2017 [facility] Temperature Oral (F) 98.1 F 05/07/2017 [facility] Respitory Rate 16 05/07/2017 [facility] Heart Rate 98 05/07/2017 [facility] Systolic (mm Hg) 131 05/07/2017 [facility] Diastolic (mm Hg) 71 05/07/2017 [facility] Systolic (mm Hg) 144 05/07/2017 [facility] Diastolic (mm Hg) 81 05/07/2017 [facility] Respitory Rate 18 05/07/2017 [facility] Temperature Oral (F) 98.4 F 05/07/2017 [facility] Heart Rate 85 05/07/2017 [facility] Heart Rate 85 05/07/2017 [facility] Respitory Rate 18 05/07/2017 [facility] Systolic (mm Hg) 125 05/07/2017 [facility] Diastolic (mm Hg) 82 05/07/2017 [facility] Temperature Oral (F) 98.5 F 05/07/2017 [facility] [place] Weight 103.4 05/02/2017 [facility] BMI Calculated 33.66 05/02/2017 [facility] Height 175.26 cm 05/02/2017 [facility] Weight 95.455 04/30/2017 [facility] BMI Calculated 30.63 04/30/2017 [facility] Height 176.53 cm 04/30/2017 [facility] Systolic (mm Hg) 147 04/13/2017 [facility] Diastolic (mm Hg) 89 04/13/2017 [facility] Respitory Rate 16 04/13/2017 [facility] Respitory Rate 20 04/13/2017 [facility] Systolic (mm Hg) 147 04/13/2017 [facility] Diastolic (mm Hg) 88 04/13/2017 [facility] Systolic (mm Hg) 159 04/13/2017 [facility] Diastolic (mm Hg) 93 04/13/2017 [facility] Respitory Rate 18 04/13/2017 [facility] Heart Rate 96 04/13/2017 [facility] Weight 93.182 04/13/2017 [facility] Height 175.26 cm 04/13/2017 [facility] BMI Calculated 30.34 04/13/2017 [facility] Respitory Rate 16 04/13/2017 [facility] Systolic (mm Hg) 149 04/13/2017 [facility] Diastolic (mm Hg) 91 04/13/2017 [facility] Heart Rate 88 04/13/2017 [facility] Systolic (mm Hg) 148 04/13/2017 [facility] Diastolic (mm Hg) 68 04/13/2017 [facility] Respitory Rate 16 04/13/2017 [facility] Heart Rate 88 04/13/2017 [facility] Heart Rate 89 04/13/2017 [facility] Respitory Rate 17 04/13/2017 [facility] Systolic (mm Hg) 141 04/13/2017 [facility] Diastolic (mm Hg) 96 04/13/2017 [facility] Weight 100 04/13/2017 [facility] Temperature Oral (F) 98.9 F 04/13/2017 [facility] [facility] [place] Weight 100 04/13/2017 [facility] Respitory Rate 18 04/13/2017 [facility] Heart Rate 87 04/13/2017 [facility] Systolic (mm Hg) 140 04/13/2017 [facility] Diastolic (mm Hg) 94 04/[facility] Systolic (mm Hg) 141 03/19/2017 [place] Diastolic (mm Hg) 94 03/19/2017 [place] Respitory Rate 18 03/19/2017 [place] Heart Rate 85 03/19/2017 [place] Systolic (mm Hg) 127 03/19/2017 [place] Diastolic (mm Hg) 80 03/19/2017 [place] Respitory Rate 21 03/19/2017 [place] Heart Rate 90 03/19/2017 [place] Respitory Rate 20 03/19/2017 [place] Weight 95.5 03/18/2017 [place] Systolic (mm Hg) 150 03/18/2017 [place] Diastolic (mm Hg) 94 03/18/2017 [place] Temperature Oral (F) 98.9 F 03/18/2017 [place] Heart Rate 106 03/18/2017 [place] Weight 94.545 02/23/2017 [facility] BMI Calculated 31.69 02/23/2017 [facility] Height 172.72 cm 02/23/2017 [facility] Respitory Rate 18 01/29/2017 [place] Systolic (mm Hg) 140 01/29/2017 [place] Diastolic (mm Hg) 75 01/29/2017 [place] Heart Rate 85 01/29/2017 [place] Temperature Oral (F) 99 F 01/29/2017 [place] Heart Rate 88 01/29/2017 [place] Temperature Oral (F) 99 F 01/29/2017 [place] Respitory Rate 18 01/29/2017 [place] Systolic (mm Hg) 147 01/29/2017 [place] Diastolic (mm Hg) 74 01/29/2017 [place] Respitory Rate 18 01/29/2017 [place] Systolic (mm Hg) 146 01/29/2017 [place] Diastolic (mm Hg) 72 01/29/2017 [place] Heart Rate 100 01/29/2017 [place] Temperature Oral (F) 99.1 F 01/29/2017 [place] Weight 90.909 01/29/2017 [place] Height 177.8 cm 01/29/2017 [facility] BMI Calculated 28.76 01/29/2017 [facility] Systolic (mm Hg) 143 01/27/2017 [facility] Diastolic (mm Hg) 83 01/27/2017 [facility] Respitory Rate 20 01/27/2017 [facility] it[facility] Heart Rate 108 01/27/2017 [facility] Temperature Oral (F) 98.4 F 01/27/2017 [facility] Systolic (mm Hg) 120 01/27/2017 [facility] Diastolic (mm Hg) 71 01/27/2017 [facility] Respitory Rate 18 01/27/2017 [facility] Cristobal ity Heart Rate 77 01/27/2017 [facility] Temperature Oral (F) 98.0 F 01/27/2017 [facility] Temperature Oral (F) 98.4 F 01/27/2017 [facility] Heart Rate 82 01/27/2017 [facility] Respitory Rate 18 01/27/2017 [facility] it Systolic (mm Hg) 108 01/27/2017 [facility] [place] Diastolic (mm Hg) 62 01/27/2017 [facility] Weight 96.619 01/22/2017 [facility] BMI Calculated 32.39 01/22/2017 [facility] it Height 172.72 cm 01/22/2017 [facility] Weight 96.619 01/22/2017 [facility] BMI Calculated 32.39 01/22/2017 [facility] it Height 172.72 cm 01/22/2017 [facility] Diastolic (mm Hg) 80 03/24/2016 [...] [facility] Temperature Oral (F) 98.0 F 03/17/2016 [facility] Respitory Rate 18 03/17/2016 [facility] Systolic (mm Hg) 106 03/17/2016 [facility] dical Center Diastolic (mm Hg) 70 03/17/2016 [facility]ical Center Heart Rate 82 03/17/2016 [facility] Respitory Rate 20 03/17/2016 [facility] Temperature Oral (F) 99.1 F 03/17/2016 [facility] Systolic (mm Hg) 127 03/17/2016 [facility] dical Center Diastolic (mm Hg) 84 03/17/2016 [facility] Heart Rate 97 03/17/2016 [facility] Heart Rate 53 03/17/2016 [facility] Temperature Oral (F) 98.1 F 03/17/2016 [facility] Respitory Rate 20 03/17/2016 [facility] Systolic (mm Hg) 129 03/17/2016 [facility] Diastolic (mm Hg) 52 03/17/2016 [facility] Weight 88.636 03/14/2016 [facility] Height 177.8 cm 02/08/2016 [facility] BMI Calculated 29.04 02/08/2016 [facility] Encounters Location Location Encounter Encounter Reason Attending ADM DC Stat us Source Details Type Number For Provider Date Date Visit [facility] Outpt Diag [id number] Agnieszka 11/09 11/10 [facility] [place] [facility] Outpt Diag [id number] Agnieszka 01/09 01/10 [facility] 1 [facility] Outpatient [id number] Henri Liliana 02/14 02/15 [facility] Indra [facility] [id number] Gabriela Lan 02/20 03/17 [facility] Indra [facility] [id number] [facility] 03[facility]24 M [facility] Inpatient [id number] [place] 01/26 01/27 [place] 4 Jeronimo [facility] [id number] Ambica 01/29 01/29 Indra 6 [facility] Outpatient [id number] Oriana Marrero 02/23 02/24 Angelina Burrell [facility] [id number] Jaimie 03/18 03/19 [place] [facility] [id number] Abundio 04/13 04/13 Indra 8 [place] Memevelyne iadavid [facility] [id number] Ebelechukwu 04/13 04/13 Ind[place] 9 Bobby [facility] Day Surgery [id number] Raza 04/13 04/13 [place] 9 Jeronimo [facility] Inpatient [id number] [place] 05/01 05/07 [place] 0 Jeronimo [facility] Inpatient [id number] Raza 05/15 05/19 [place] 1 Jeronimo [facility] Outpt Diag [id number] Oriana Marrero 06/01 06/02 [facility] Outpatient Services [facility] Outpt Diag [id number] Agnieszka 04/16 04/17 [facility] 3 [facility] Outpt Diag [id number] R[place] 04/18 04/19 2 .16.840 Outpatient Services 4 Jeronimo .1. [address] Outpt Diag [id number] [place] 04/22 04/23 M H [facility] Outpatient Services 5 Jeronimo [facility] Outpatient [id number] [facility] 04/24 04/25 [place] 3 [facility] Outpatient [id number] [facility] 05/02 05/03 [place] 5 [facility] Bedded [id number] [facility] 05/06 05/06 [facility] Indra Outpatient 4 [facility] Inpatient [id number] Raza 05/17 05/18 [place] 6 Jeronimo [facility] Inpatient [id number] Jeremy Chavez 03/07 03/09 [place] [facility] Outpatient [id number] Sarmad Ballesteros 04/08 04/09 [place] [facility] Outpatient [id number] Agnieszka 11/02 11/03 [place] 8 [facility] Outpatient [id number] Jose 11/18 11/19 [facility] [place] 9 [facility] Procedures Procedure Code Date Perfomer Comments Source Arthrocentesis, [facility] aspiration and/or 9 [place] injection, major joint or bursa (eg, shoulder, hip, knee, subacromial bursa); without ultrasound guidance Operation<sup>1</ [id number] lower back surgery [facility] sup> 6 [facility], Nancy,2.16 [id number] .3615.127, [facility] [place], [place], [facility] [place],[facility] Colon [id number] stated [facility] operation<sup>2</ resection for Medi ofelia sup> diverticulitis Center,[facility],2.16 [id number] .3615.127, [facility] [place], [place], [facility] [place],[facility] Excision [id number] [facility],2.16 [id number] .3615.127,MH [facility], [facility] [place], [place], [facility] [place],[facility] Operation [id number] [facility],[id number] .3615.127,MH [facility], [facility] [place], [place], [facility] [place],[facility] Replacement [id number] [facility],[id number] .3615.127,MH [facility], [facility] [place], [place], [facility] [place],[facility] Resection of [id number] [facility],[id number] .3615.127,MH [facility], [facility] [place], [place], [facility] [place],[facility] Shoulder repair [id number] [facility],[id number] .3615.127,MH [facility], [facility] [place], [place], [facility] [place],[facility] Colon [id number] stated [facility] operation<sup>1</ resection for Medi ofelia sup> diverticulitis Center, [facility] Assessment and Plan Assessment and Plan Date Source Extracted from:Title: Discharge Summary * 03/09/2019 KEVIN Vanegas Author: Jeremy Chavez MD Date: 03/09/19 Discharge [...] sterile water 10 mL) 1 gm IVP [id number] 120 ml/hr 03/08/19 levothyroxine 50 microgram PO Before Breakfast 03/07/19 methylPREDNISolone (Solu-MEDROL) 40 mg IVP Q12H 03/07/19 metoprolol 25 mg PO Bedtime 03/08/19 non-formulary (*RN* pls bring p t's own rasagiline to [facility] for label) MISC QSHIFT 03/08/19 pantoprazole (Protonix) [...] (SEROquel) 25 mg PO Daily 03/07/19 acetaminophen-hydrocodone ([place] 5/325 oral tablet) 1 tab PO Q6H 03/07/19 acetaminophen 650 mg PO Q6H 03/07/19 albuterol-ipratropium (DuoNeb inhalation solution) 3 ml NEB PRN 03/07/19 benzocaine-menthol topical (Cep acol Sore Throat 15 mg-3.6 mg mucous membrane lozenge) 1 lozenge MUCOUS MEM Q4H 03/07/19 benzonatate (Tessalon Perles) 100 mg PO TID 03/07/19 bisacodyl 10 mg MN Daily 03/07/19 codeine-guaiFENesin (Robitussin-AC oral syrup) 10 [...] values) WBC 10.1 (MAR 08) H 10.5 (FEB 23 3) Hgb L 12.8 (MAR 08) L [...] H 248 (MAR 08) H 138 (D 13) Ca 8.8 (MAR 08) 8.8 (MAR [...] pulmonary Extracted from:Title: .Anesthesia Progress Note APMS*PNB [facility] Author: Renay Lopez CRNA Date: 05/18/18 Plan APMS Plan Discharge from [facility] care: Analgesics per Primary Service. Extracted from:Title: Clinical Document 05/19/2017 [facility] Author: Christian Lanier MD Date: 05/18/17 PATIENT NAME: GENARO KAUR DATE OF PROGRESS NOTE: 05/18/2017 TYPE: INFECTIOUS DISEASES> *_*_* REASON FOR FOLLOWUP: Right shoulder infection. SUBJECTIVE: The patient is feeling better. right shoulder continue to i mprove. MEDICATIONS: List reviewed. Antibiotics include elsia penem day #4 and vancomycin day #17. 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 Culture [...] culture results. Extracted from:Title: Clinical Document 05/07/2017 [facility] Author: Kasandra Alexandra MD Date: 05/07/17 PATIENT [...] followed by chronic suppression. Extracted from:Title: Anesthesia APMS Progress Note* 017 [facility] Author: Fidencio Almeida CRNA, CRNA Date: 01/27/17 Plan APMS Plan Discharge from [facility] care: Analgesics per Primary Service. Extracted from:Title: [...] low offset tray. 6. A +6 poly. LINING FINISHER: PARK Call ANESTHESIA: General endotracheal with interscalene [...] The patient was identified in the preope rati holding area. The surgical site was marked. [...] stable condition. Extracted from:Title: Clinical Document 03/24/2016 [facility] Author: Mary Mcknight MD Date: 03/24/16 PM&R [...] surgery on 02/21/2016 now being admitted to [facility] on 03/17/2016 for acute inpatient rehabilitation for [...] stay. He was admitted for rehab at [facility] on 03/17/16. Hospital Course: Diagnosis: 1. For [...] Other: wears glasses Performed: 03/23/16 09: 31 GILL TENDER Current Status Severity Level Comprehension: Modified I [...] Brambila, Orthopedic Surgery Service Address: CLINIC (1) [place] [facility] - O rthopaedics FOR FOLLOW UP APPOINTMENT PLEASE CALL CLINIC [address] [facility] [address] [facility] [address] Comments: Follow up with Dr. Brambila within 2 weeks of discharge from [facility] - call for appointment - [phone] Provider: Javier Cordon, Medicine Service Address: [address] [place] [address] Comments: Follow up with your PCP [facility] 7-10 days of discharge from [facility]/or as previously scheduled. Provider: Mary Mcknight, Physical Medicine/Rehabilitation Service Address: [address] [place] [address] When: 07/26/2016 1:15 PM Comments: [facility] Outpatient Medical Cli zenia with Dr. Candelario, appointment line is [phone]. Other: [facility] Condominium Manager - Israel Diego RN Comments: [phone] Other: [facility] Physician - Ion Dumas MD Comments: [phone] Other: [facility] Manager Eligibility - Diego Garcia LCSW Comments: [phone] Other: [facility] Outpatient Therapy Depart ent. Address: [address] [address] Comments: Referral sent to [facility] for physical, occupational and speech services. - [phone]. Total time in discharge of this patient was 40 minutes. Extracted from:Title: Hospitalist Progress Note Author: Savanna Saalzar DO Date: 03/23/16 Assessment/Plan 75 y/o male with chronic back pain secon patricia to failed hardware and RLE radiculopathy s/p fixation admitted for comprehensive rehab. Hospitalization at [facility] complicated by ileus requiring colonic decompression debility: continue rehab - management per primary team chronic pain: management per primary team hypothyroid: continue LT4 GERD: resume nexium at discharge BPH: continue flomax PPX:lovenoxSC HOSPITALISTIS RADIOLOGIC TECHNOLOGIST MAMMOGRAM; please page [phone] with questions Extracted from:Title: Hospitalist Consult Note Author: Savanna Salazar DO Date: 03/18/16 Assessment/Plan 75 y/o male with chronic back pain boris gomez to failed hardware and RLE radiculopathy s/p [...] to assist in this patient's care HOSPITALISTIS RADIOLOGIC TECHNOLOGIST MAMMOGRAM; please page [phone] with questions Extracted from:Title: Rehabilitation History and Physical Author: Yrn Raya DO Date: 03/18/16 PHYSICAL MEDICINE AND REHABILITATION HISTORY AND PHYSICAL DATE OF ADMISSION: REASON FOR ADMISSION: ATTENDING PHYSICIAN: Available documentation in the [facility] medical record was comprehensively reviewed and summarized [...] surgery on 02/21/2016 now being admitted to [facility] on 03/17/2016 for acute inpatient rehabilitation for [...] home with no steps to get in [place], [place]. Michael hernandez [facility]. Reinaldo kash from [facility]. Has three children with one passing away [...] PO Bedtime 03/18/16 cefTRIAXone 1 gm IVPB [id number] 03/17/16 clotrimazole topical (clotrimazole topical 1% cream [...] 0 03/17/16 Sebastian Score 16 03/17/16 [place] Fall Score 6 (no lines, tubes, drains [...] Oral and pharyngeal dysphagia, dy sphonia, cognition Band Lining Bander and case management for discharge planning and [...] cobalamin, zinc, multivitamin, thia mine, folic acid. Incendiaries Supervisor to optimize diet and assess caloric needs. Vitamin B12 levels, thiamine, folic acid levels. # Code status: full resuscitation DISPOSITION [facility]p atient [facility] for the [...] from:Title: Hospitalist History and Physical 03/17 [facility] Author: Prince Brian Thomson MD Date: 02/22/16 [...] History Date Source Social History TypeResponse 05/17/2018 [facility] Substance Abuse Use: None. Alcohol Past, Type [...] on: 05/17/18 Social History TypeResponse 05/17/2018 [id number] Alcohol Past, Type Beer, Liquor. Last use: 10 years ago. Substance Abuse Use: None. Smoking Status Former smoker; Type: Cigarettes; Exposur e to Tobacco Smoke None; Cigarette Smoking Last 365 Days No; Reg Smoking Cessation Counseling No; Number of years: 28; entered on: 05/17/18 Social History TypeResponse 05/17/2018 [facility] Alcohol Past, Type Beer, Liquor. Last use: 10 years ago. Substance Abuse Use: None. Smoking Status Former smoker; Type: Cigarettes; Exposur e to Tobacco Smoke None; Cigarette Smoking Last 365 Days No; Reg Smoking Cessation Counseling No; Number of years: 28; entered on: 03/07/19 Social History TypeResponse 05/17/2018 [facility] Alcohol Past, Type Beer, Liquor. Last use: 10 years ago. Substance Abuse Use: None. Smoking Status Former smoker; Type: Cigarettes; Exposur e to Tobacco Smoke None; Cigarette Smoking Last 365 Days No; Reg Smoking Cessation Counseling No; Number of years: 28; entered on: 05/17/18 Social History TypeResponse 05/17/2018 [facility] Alcohol Past, Type Beer, Liquor. Last use: 10 years ago. Substance Abuse Use: None. Smoking Status Former smoker; Type: Cigarettes; Exposur e to Tobacco Smoke None; Cigarette Smoking Last 365 Days No; Reg Smoking Cessation Counseling No; Number of years: 28; entered on: 03/07/19 Social History TypeResponse 03/18/2016 [place] Alcohol Past Smoking Status Former smoker; Exposure to Tobacco Smoke None; Cigarette Smoking Last 365 Days No; Reg Smoking Cessation Counseling No Social History TypeResponse 03/18/2016 [facility] Alcohol Past Smoking Status Former smoker; Exposure to Tobacco Smoke None; Cigarette Smoking Last 365 Days No; Reg Smoking Cessation Counseling No Family History No Data Provided for This Section Advance Directives No Data Provided for This Section Functional Status No Data Provided for This Section
--- OUTSIDE RECORDS SUMMARY | 2020-03-01 15:48 | XMS REPORT | Continuity of Care Document ---
:1940 Author Organization [facility] t Address [address] [place]. [address] [place] [id number] Care Team Providers Name Role Phone Neris VASQUEZ Primary Care Physician JUAN ANTONIO Attending Clinician Unavailable Chayo Conklin MD Attending Clinician Demetris FLORES Attending Clinician Unavailable Stephanie Zhong NP Attending Clinician ILDA Attending Clinician Unavailable Juan Antonio Attending Clinician Ilda Attending Clinician Martha VASQUEZ Attending Clinician Provider Attending Clinician Unavailable Arley RN Attending Clinician Unavailable Gregory RN Attending Clinician Unavailable Vanita Attending Clinician Unavailable Glynn RN Attending Clinician Unavailable Michelle Paez MD Attending Clinician Luis Felipe FLETCHER Attending Clinician Lester VASQUEZ Attending Clinician Kane Ballesteros Attending Clinician Lee Chavez Attending Clinician ANABEL Attending Clinician Unavailable Darin Little Attending Clinician AUSTIN Attending Clinician Unavailable ALDA Attending Clinician Unavailable Austin Attending Clinician Juan F Gonsales Attending Clinician TRUDI Attending Clinician Unavailable KAMRYN Attending Clinician Unavailable Nancy Harry Attending Clinician Hakan Rosales Attending Clinician Leslye Wynne Attending Clinician Cony Solomon Attending Clinician Eleno Attending Clinician BOOGIE Attending Clinician Unavailable Vidal Dumas Attending Clinician Nolvia Og Attending Clinician Thomas Ford Attending Clinician MITCHELL Attending Clinician Unavailable MINDY Admitting Clinician Unavailable Lee Chavez Admitting Clinician Darin Little Admitting Clinician Vidal Dumas Admitting Clinician Nolvia Og Admitting Clinician Payers Payer Name Policy Type Policy Effective Date Expiration Date Sour ce Number HUMANA [id number] 2018 [place] MEDICAREHUMANA 00:00:00 [facility] MED[facility] PPO/PFFS/ERS [id number]/03/[id number] -PresentPPO Problems Condition Condition Condition Status Onset Resolution Last Treating Co mments Source Name Details Category Date Date Treatment Clinician Date CHRONIC Diagnosis Active 2019-11-19 Mi moria COUGH 8- 08:45:00 l CHRONIC 00:00: Indra COUGH 00 Active 11/11/2019 [facility] G95.9 / Diagnosis Active 2019-11-03 Me moria R26.81 / 10-21 12:34:00 l M47.14 / G95.9 / 00:00: Salud nn Z98.1 / R26.81 / 00 M54.5 M47.14 / Z98.1 / M54.5 Active 10/22/2019 [facility] DX; Diagnosis Active 2019-04-08 Mem oria R06.02=WILIAN 1- 12:27:00 l RTNESS OF DX; 00:00: Indra BREATH R06.02=WILIAN 00 RTNESS OF BREATH Active 03/31/2019 [facility] Prostate Prostate Disease Active 2018-03 [place] [facility] cancer 2-26 [facility] 00:00: st 00 SOB Diagnosis Active 2018-032019-03-13 Mem oria 2-13 21:56:00 l SOB 00:00: [place] 00 Active 03/07/2019 [facility] 26103, Diagnosis Active 2018-05-17 Mem oria 76601, 2- 13:50:00 l LEFT 34296, 00:00: [place] SHOULDER 89000, 00 GLENOHUMER LEFT AL SHOULDER GLENOHUMER AL Active [address] [facility] UNK Diagnosis Active 2018-05-06 Mem oria 04-24 09:14:00 l UNK 00:00: [place] 00 Active 04/24/2018 [facility] DX: LUNG Diagnosis Active 2018-05-02 M emoria NODULE 04-24 12:19:00 l DX: LUNG 00:00: [place] NODULE 00 Active 04/24/2018 [facility] K21.9 Diagnosis Active 2018-04-24 Mem oria 04-11 10:17:00 l K21.9 00:00: [place] 00 Active 04/11/2018 [facility] R06.00 - Diagnosis Active 2017-06-01 M emoria DYSPNEA, 05-31 14:00:00 l UNSPECIFIE R06.00 - 00:01: Hector solorio D DYSPNEA, 00 UNSPECIFIE D Active 05/31/2017 [facility] [place] [address], Diagnosis Active 2017-05-23 Mem oria RIGHT 05-14 22:01:00 l SHOULDER 47810, 00:00: [place] INFECTED RIGHT 00 REVERSE S SHOULDER INFECTED REVERSE S Active 05/14/2017 [facility] [address]- Diagnosis Active 2017-05-10 Mem oria RIGHT 04-30 22:01:00 l SHOULDER 73752- 00:00: [place] SOFT RIGHT 00 TISSUE SHOULDER INFECT SOFT TISSUE INFECT Active 04/30/2017 [facility] SHOULDER Diagnosis Active 2017-04-13 M emoria PAIN 04-13 11:40:00 l SHOULDER 00:00: [place] n PAIN 00 Active 04/13/2017 [facility] RIGHT Diagnosis Active 2017-04-13 Mem oria SHOULDER 04-13 11:40:00 l TOTAL RIGHT 00:00: Indra REVISION SHOULDER 00 TOTAL REVISION Active 04/13/2017 [facility] RT Diagnosis Active 2016-032017-03-18 [facility] oria SHOULDER 2-24 18:33:00 l PAIN RT 00:00: Indra SHOULDER 00 PAIN Active 03/18/2017 [facility] BLEEDING Diagnosis Active 2016-032017-01-29 emoria INCISION 03-31 04:40:00 l BLEEDING 00:00: O[place]andr n INCISION 00 Active 01/29/2017 [facility] [place] R06.00 Diagnosis Active 2016-032017-05-02 Mem oria 0-27 15:00:00 l R06.00 00:00: [place] 00 Active 01/19/2017 [facility] [address]- Diagnosis Active 2016-032017-01-26 Mem oria RIGHT 0-17 13:42:00 l SHOULDER 01234- 00:00: [place] n IRREPARABL RIGHT 00 E ROTATO SHOULDER IRREPARABL E ROTATO Active 01/09/2017 [facility] DC F/U REQ Diagnosis Active 2015-032017-09-16 Memoria BY CM 2- 13:15:00 l REVELYEN B DC F/U 00:00: Herm greer REQ BY CM 00 REVELYEN B Active 03/23/2016 [facility] SCI Diagnosis Active 2015-032016-03-14 Mem oria 04-22 13:03:00 l SCI 00:00: [place] 00 Active 02/21/2016 [facility] DECONDITIO Diagnosis Active 2015-032016-03-29 Memoria WHIT 04-22 22:24:00 l 00:00: Indra DECONDITIO 00 WHIT Active 02/21/2016 [facility] SOB, ARELLANO Diagnosis Active 2015-032016-02-15 emoria 04-11 16:03:00 l SOB, ARELLANO 00:00: [place] n 00 Active 02/10/2016 [facility] NON-UNION Diagnosis Active 2015-032016-03-16 Memoria OF 03-29 23:03:00 l PREVIOUS 00:00: [place] LUMBAR NON-UNION 00 FUSION, OF FOR PREVIOUS LUMBAR FUSION, FOR Active 01/28/2016 [facility] Z98.1 - Diagnosis Active 2015-11-10 Me moria ARTHRODESI - 14:04:00 l S STATUS Z98.1 - 00:01: Salud nn ARTHRODESI 00 S STATUS Active 11/04/2015 [facility] [place] History of History of Problem Resolve Univers Benign Benign d ity of prostatic prostatic [place] hyperplasi hyperplasi Ph ysici a with a with ans lower lower urinary urinary tract tract symptoms, symptoms, unspecifie unspecifie d d morphology morphology History of History of Problem Resolve Univers cough cough d ity of [place] Physici ans History of History of Problem Resolve Univers Adhesive Adhesive d ity of capsulitis [place]ulitis [place] of right of right Physic i shoulder shoulder ans History of History of Problem Resolve Univers 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 Physic i ans History of History of Problem Resolve Univers Arthritis Arthritis d ity of of left of left [place] shoulder shoulder Physic i region region ans History of History of Problem Resolve Univers dyspnea dyspnea d ity of [place] Physici ans History of History of Problem Resolve Univers Asthma in Asthma in d ity of adult adult [place] Physici ans History of History of Problem Resolve Univers Asthma Asthma d ity of with acute with acute [place] exacerbati exacerbati Ph ysici on on ans History of History of Problem Resolve Univers neck pain neck pain d ity of [place] Physici ans History of History of Problem Resolve Univers neuropathy neuropathy d it y of [place] Physici ans History of History of Problem Resolve Univers Cervical Cervical d [place] of radicular radicular [place] pain pain Physici ans History of History of Problem Resolve Univers Chronic Chronic d ity of right hip right hip [place] pain pain Physici ans History of History of Problem Resolve Univers Class 1 Class 1 d ity of obesity obesity [place] with with Physici serious serious ans comorbidit comorbidit y and body y and body mass index mass index (BMI) of (BMI) of 30.0 to 30.0 to 30.9 in 30.9 in adult, adult, unspecifie unspecifie d obesity d obesity type type History of History of Problem Resolve Univers depression depression d it y of [place] Physici ans History of History of Problem Resolve Univers Complete Complete d ity of tear of tear of [place] right right Physici rotator rotator ans cuff cuff History of History of Problem Resolve Univers 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 Phys ici obese obese ans History of History of Problem Resolve Univers diverticul diverticul d it y of itis of itis of [place] colon colon Physici ans History of History of Problem Resolve Univers Gastroesop Gastroesop d it y of hageal hageal [place] reflux reflux Physici disease disease ans without without esophagiti esophagiti s s History of History of Problem Resolve Univers Hip Hip d ity of abductor abductor [place] tendonitis tendonitis Ph ysici , right , right ans History of History of Problem Resolve Univers [facility] d it y of cquired cquired [place] pneumonia pneumonia Phys ici ans History of History of Problem Resolve Univers Iliotibial Iliotibial d it y of band band [place] syndrome syndrome Physic i of right of right ans side side History of History of Problem Resolve Univers kidney kidney d ity of stones stones [place] Physici ans History of History of Problem Resolve Univers Lumbar Lumbar d ity of foraminal foraminal [place] stenosis stenosis Physic i ans History of History of Problem Resolve Univers Lumbar Lumbar d ity of radicular radicular [place] pain pain Physici ans History of History of Problem Resolve Univers Lung Lung d ity of disease disease [place] Physici ans History of History of Problem Resolve Univers Other Other d ity of hyperlipid hyperlipid [place] em[place] emia Physici ans History of History of Problem Resolve Univers Other Other d ity of specified specified [place] hypothyroi hypothyroi Ph ysici dism dism ans History of History of Problem Resolve Univers Postoperat Postoperat d it y of priya priya [place] infection, infection, Ph ysici initial initial ans encounter encounter History of History of Problem Resolve Univers 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 [place]sis after [place] fusion or fusion or Phys ici arthrodesi arthrodesi an s s s History of History of Problem Resolve Univers Pulmonary Pulmonary d ity of nodule nodule [place] Physici ans History of History of Problem Resolve Univers Severe Severe d ity of obstructiv obstructiv [place] e sleep e sleep Physici apnea apnea ans History of History of Problem Resolve Univers Shoulder Shoulder d ity of pain pain [place] Physici ans History of History of Problem Resolve Univers Stroke Stroke d ity of [place] Physici ans History of History of Problem Resolve Univers Subacromia Subacromia d it y of l bursitis l bursitis [place] Physici ans History of History of Problem Resolve Univers Subacromia Subacromia d it y of l l [place] impingemen impingemen Ph ysici t of right t of right an s shoulder shoulder History of History of Problem Resolve Univers thyroid thyroid d ity of disease disease [place] Physici ans History of History of Problem Resolve Univers wheezing wheezing d ity of [place] Physici ans Nocturnal Nocturnal Problem Active Uni vers cough cough ity of [place] Physici ans Gastric Gastric Problem Active Univers regurgitat regurgitat it y of ion ion [place] Physici ans Heartburn Heartburn Problem Active Uni vers ity of [place] Physici ans Hiatal Hiatal Problem Active Univers hernia hernia ity of [place] Physici ans Arthropath Arthropath Problem Active U nivers y, y, ity of transient, transient, [place] shoulder, shoulder, Phys ici left left ans Chronic Chronic Problem Active Univers right right ity of shoulder shoulder [place] pain pain Physici ans Shoulder Shoulder Problem Active Unive rs pain, left pain, left it y of [place] Physici ans Low back Low back Problem Active Unive rs pain pain ity of [place] Physici ans Status Status Problem Active Univers post post ity of spinal spinal [place] arthrodesi arthrodesi Ph ysici s s ans Cervical Cervical Problem Active Unive rs myelopathy myelopathy it y of [place] Physici ans Unsteady Unsteady Problem Active Unive rs gait gait ity of [place] Physici ans Thoracic Thoracic Problem Active Unive rs myelopathy myelopathy it y of [place] Physici ans Hyperlipid Problem 2017-08-13 M emoria emia, 12:19:11 l unspecifie [place] d Hyperlipid emia, unspecifie d 08/13/2017 [facility] Hypothyroi Problem 2017-08-13 M emoria dism, 12:19:11 l unspecifie [place] d Hypothyroi dism, unspecifie d 08/13/2017 [facility] Essential Problem 2017-08-24 Me moria (primary) 12:51:25 l hypertensi [place] on Essential (primary) hypertensi on 08/24/2017 [facility] Personal Problem 2017-08-24 Mem oria history of 12:51:25 l nicotine Personal Herm greer dependence history of nicotine dependence 08/24/2017 [facility] Acute Problem 2017-08-24 Memor ia posthemorr 12:51:25 l hagic Acute [place] anemia posthemorr hagic anemia 08/24/2017 [facility] Other Problem 2017-08-24 Memor ia streptococ 12:51:25 l mahendra Other Indra arthritis, streptococ right mahendra shoulder arthritis, right shoulder 08/24/2017 [facility] Emphysema, Problem 2017-08-24 M emoria unspecifie 12:51:25 l d Indra Emphysema, unspecifie d 08/24/2017 [facility] Unspecifie Problem 2017-08-24 M emoria d 12:51:25 l streptococ [place] cus as the Unspecifie cause of d diseases streptococ classified cus as the elsewhere cause of diseases classified elsewhere 08/24/2017 [facility] Body mass Problem 2017-08-24 Me moria index 12:51:25 l (BMI) Body [place] 30.0-30.9, mass index adult (BMI) 30.0-30.9, adult 08/24/2017 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 Enlarged Problem 2017-08-13 Mem oria prostate 12:19:11 l without Enlarged Salud nn lower prostate urinary without tract lower symptoms urinary tract symptoms 08/13/2017 [facility] Insomnia, Problem 2017-08-13 Me moria unspecifie 12:19:11 l d [place] Insomnia, unspecifie d 08/13/[address] [facility] Encounter Problem 2017-08-13 Me moria for 12:19:11 l immunizati [place] n on Encounter for immunizati on 08/13/[address] [facility] Synovitis Problem 2018-11-06 Me moria and 11:48:55 l tenosynovi [place] n tis, Synovitis unspecifie and d tenosynovi tis, unspecifie d 11/06/2018 [id number] [id number]. 615.127 Spinal Problem 2018-11-04 Memor ia stenosis, 11:15:50 l cervical Spinal [place] region stenosis, cervical region 11/04/2018 [facility] [place] Interverte Problem 2018-11-04 M emoria bral disc 11:15:50 l disorders Indra with Interverte radiculopa bral disc thy, disorders lumbar with region radiculopa thy, lumbar region 11/04/2018 [facility] Cruz Final: Problem 2016-03-27 Memor ia Other 01:40:36 l malaise Final: [place] Other malaise 03/27/2016 [facility] Dyskinesia Problem 2018-11-12 M emoria of 11:13:50 l esophagus Indra Dyskinesia of esophagus 11/12/2018 [facility] Enlarged Problem 2018-11-20 Mem oria lymph 11:21:30 l nodes, Enlarged [place] unspecifie lymph d nodes, unspecifie d 11/20/2018 [facility] Other Problem 2018-11-20 Memor ia specified 11:21:30 l diseases Other Indra of liver specified diseases of liver 11/20/2018 [facility] Diverticul Problem Resolve 2019-11-24 Memoria itis d 07:29:09 l (disorder) [place] n Diverticul itis (disorder) Resolved Problem 11/24/2019 [facility],2 .16.840.1. [id number] 15.127, [facility], GUALBERTO Burrell,[facility], GUALBERTO Cruz,[facility] Chronic Problem Active 2019-11-24 [place] kristina obstructiv 07:29:09 l e lung Chronic [place] disease obstructiv (disorder) e lung disease (disorder) Active Problem 11/24/2019 [facility],2 .16.840.1. [id number] 15.127, GUALBERTO Burrell,[facility], GUALBERTO Cruz,[facility] Gastric Problem Active 2019-11-24 [place] kristina reflux 07:29:09 l (finding) Gastric Herm greer reflux (finding) Active Problem 11/24/2019 [facility],2 .16.840.1. [id number] 15.127, [facility], GUALBERTO Burrell,[facility], [facility] Hyperlipid Problem Active 2019-11-24 M emoria emia 07:29:09 l (disorder) [place] Hyperlipid emia (disorder) Active Problem 11/24/2019 [facility],2 .16.840.1. [id number] 15.127, [facility], GUALBERTO Burrell,[facility], [facility] Hypertensi Problem Active 2019-11-24 M emoria ve 07:29:09 l disorder, Indra systemic Hypertensi arterial ve (disorder) disorder, systemic arterial (disorder) Active Problem 11/24/2019 [facility],2 .16.840.1. [id number] 15.127, GUALBERTO Burrell,[facility], [facility] Hypothyroi Problem Active 2019-11-24 M emoria dism 07:29:09 l (disorder) [place] n Hypothyroi dism (disorder) Active Problem 11/24/2019 [facility],2 .16.840.1. 213231.3.6 15.127, [facility], GUALBERTO Burrell,[facility], [facility] Lumbar Problem Active 2019-11-24 Memor ia radiculopa 07:29:09 l thy Lumbar [place] (disorder) radiculopa thy (disorder) Active Problem 11/24/2019 [facility],2 .16.840.1. 064124.3.6 15.127, [facility], GUALBERTO Burrell,[facility], [facility] Benign Problem Active 2019-11-24 Memor ia prostatic 07:29:09 l hyperplasi Benign Herm greer a prostatic (disorder) hyperplasi a (disorder) Active Problem 11/24/2019 [facility],2 .16.840.1. 215092.3.6 15.127, [facility], GUALBERTO Burrell,[facility], [facility]' Problem Active 2019-11-24 M emoria s disease 07:29:09 l (disorder) [place]r napoles Parkinson' s disease (disorder) Active Problem 11/24/2019 [facility],2 .16.840.1. 109141.3.6 15.127, GUALBERTO Burrell,[facility], GUALBERTO Cruz,[facility] Sleep Problem Active 2019-11-24 Memor ia apnea 07:29:09 l (finding) Sleep [place]ks[place]r napoles apnea (finding) Active Problem 11/24/2019 [facility],2 .16.840.1. 260373.3.6 15.127, GUALBERTO Burrell,[facility], ARRONManjula Nancy,[facility] RADICULOPA Diagnosis Active 2016-03-16 Memoria THY, 23:03:00 l LUMBAR Indra REGION RADICULOPA THY, LUMBAR REGION Active [facility] OTHER Diagnosis Active 2016-03-16 Mem oria BIOMECHANI 23:03:00 l MAHENDRA OTHER [place] LESIONS OF BIOMECHANI LUMBAR RE MAHENDRA LESIONS OF LUMBAR RE Active [facility] SHORTNESS Diagnosis Active 2016-02-15 Memoria OF BREATH 16:03:00 l Indra SHORTNESS OF BREATH Active [facility] OTHER Diagnosis Active 2016-03-29 Mem oria MALAISE 22:24:00 l OTHER Indra MALAISE Active [facility] INTCRAN Diagnosis Active 2017-09-16 Me moria INJ W/O 13:15:00 l LOSS OF INTCRAN [place] n CONSCIOUSN INJ W/O ESS, I LOSS OF CONSCIOUSN ESS, I Active [facility] ILLNESS, Diagnosis Active 2018-05-17 M emoria UNSPECIFIE 13:50:00 l D ILLNESS, [place] UNSPECIFIE D Active [facility] DYSPNEA, Diagnosis Active 2017-05-02 M emoria UNSPECIFIE 15:00:00 l D DYSPNEA, [place] n UNSPECIFIE D Active [facility] INFECT/INF Diagnosis Active 2017-05-23 Memoria LM 22:01:00 l REACTION Indra DUE TO OTH INFECT/INF INTERNA LM REACTION DUE TO OTH INTERNA Active [facility] SOLITARY Diagnosis Active 2018-05-02 M emoria PULMONARY 12:19:00 l NODULE SOLITARY [place] PULMONARY NODULE Active [facility] ENLARGED Diagnosis Active 2018-05-02 M emoria LYMPH 12:19:00 l NODES, ENLARGED [place] UNSPECIFIE LYMPH D NODES, UNSPECIFIE D Active [facility] HEART Diagnosis Active 2019-03-13 Mem oria FAILURE, 21:56:00 l UNSPECIFIE HEART Salud nn D FAILURE, UNSPECIFIE D Active [facility] Dyspnea, Problem 2017-2018-04-25 2018-04-25 Memoria unspecifie 3-16 14:53:40 14:53:40 l d Dyspnea, 04:38: [place] n unspecifie 05 d 06/08/2017 04/25/2018 ARRONManj[facility] [place] Infection Problem 2017-2017-08-24 2017-08-24 Memoria and 05-25 12:51:25 12:51:25 l inflammato 04:51: [place] n ry Infection 18 reaction and due to inflammato other ry internal reaction joint due to prosthesis other , initial internal encounter joint prosthesis , initial encounter 05/25/2017 08/24/2017 [facility] Infection Problem 2017-2017-08-13 2017-08-13 Memoria following 05-15 12:19:11 12:19:11 l a 04:46: Indra procedure, Infection 50 initial following encounter a procedure, initial encounter 05/15/2017 08/13/2017 [facility] Other Problem 2017-07-20 2017-07-20 M emoria specified 04-18 20:43:45 20:43:45 l complicati Other 05:15: Salud nn on of specified 14 internal complicati orthopedic on of prosthetic internal devices, orthopedic implants prosthetic and devices, grafts, implants initial and encounter grafts, initial encounter 04/18/2017 07/20/[address] [facility] Anterior Problem 2016-032017-03-21 2017-03-21 Memoria dislocatio 05-19 02:24:13 02:24:13 l n of right Anterior 06:00: He rmann humerus, dislocatio 00 initial n of right encounter humerus, initial encounter 03/18/2017 03/21/2017 [facility] Encounter Problem 2016-032017-02-01 2017-02-01 Memoria for other - 02:39:43 02:39:43 l specified 06:00: [place] aftercare Encounter 00 for other specified aftercare 01/29/2017 02/01/2017 KEVIN Cruz History of Past Illness Condition Condition Condition Status Onset Resolution Last Treating Co mments Source Name Details Category Date Date Treatment Clinician Date Cerebrovas Problem Resolve 2015-032019-11-24 2019-11-24 Memoria cular d 2- 07:29:09 07:29:09 l accident 00:00: Indra (disorder) Cerebrovas 00 cular accident (disorder) Resolved 02/24/2016 Problem 11/24/2019 2 days after back surgery [facility], Nancy,2 .16.840.1. [id number] 15.127, GUALBERTO Burrell,[facility], GUALBERTO Cruz,[facility] Allergies, Adverse Reactions, Alerts Allergy Allergy Status Severity Reaction(s) Onset Inactive Treating Comm ents Source Name Type Date Date Clinician No Known DA Active [facility] Allergie 05-03 [place] s 00:00: d 00 [facility] Demerol Allergy Active [facility] TABS to drug ity of ([facility] ) Physici ans No Known No Known Active Memori a Medicati Medicati l on on Indra Allergie Allergie s s Family History Family Member Diagnosis Comments Start Date Stop Date Source Father Family history of Univers ity of [place] Type 2 diabetes Physician s mellitus without complication, without long-term current use of insulin Father Family history of [employer] [facility] [place] emphysema Physicians Father Family history of [employer] [facility] [facility] [place] retinal detachment Physic ians Mother Family history of [employer] [facility] [facility] [place] emphysema Physicians Social History Social Habit Start Date Stop Date Quantity Comments Source History of tobacco 1953-03-26 Heavy tobacco Joel ston use 00:00:00 smoker [facility] Sex Assigned At M [place] [facility] Cigarettes smoked 2019-11-18 2019-11-18 [place] current (pack per 00:00:00 00:00:[address] ) - Reported Cigarette 2019-11-18 2019-11-18 [place] pack-years 00:00:00 00:00:00 [facility] Tobacco use and 2019-11-18 2019-11-18 Never used [place] exposure 00:00:00 00:00:00 [facility] Alcohol intake 2019-11-18 2019-11-18 Ex-drinker [place] 00:00:00 00:00:00 (finding) [facility] Alcohol Comment 2019-07-23 2019-07-23 Used to drink [place] 00[facility]00:00 00:00:00 occasionally [facility] Social History 2016-03-18 2016-03-18 [facility] Andrés richard 00:40:19 00:40:19 Smoking Status Start Date Stop Date Source Ex-smoker (finding) [facility] [place] [facility] Heavy tobacco smoker 2019-11-18 00:00:00 [facility] Medications Ordered Filled Start Stop Current Ordering Indication Dosage Frequency Signature Comments Components Source Medication Medication Date Date Medication? Clinician (SIG) Name Name leuprolide 2019-03 2020- No 30mg [place] (ELIGARD) 0-13 10-20 [facility] depot 09:30: 11:41 st injection 00 :00 30 mg (RESTRICTED ) simvastatin 2019-03 Yes Take by Joel mathur (ZOCOR) 10 0-13 mouth. [facility] MG tablet 09:20: st 52 mometasone- 2019-03 Yes Dulera 200 [facility] formoterol 0-13 mcg-5 [facility] (DULERA 09:20: mcg/actuat st 200) 200-5 52 ion HFA mcg/actuati aerosol on inhaler inhaler esomeprazol 2019-03 Yes Take by Joel mathur e (NexIUM) 0-13 mouth. [facility] 40 MG 09:20: st capsule 52 DULoxetine 2019-03 Yes Take by Navarro ton (Cymbalta) 0-13 mouth. [facility] 30 MG 09:20: st capsule 52 tamsulosin 2019-03 Yes Take by Navarro ton (FLOMAX) 0-13 mouth. [facility] 0.4 mg 09:20: st capsule 52 pediatric 2019-03 Yes Take by [place]arrot on multivit 0-13 mouth. [facility] 61-D3-vit K 09:20: st (MVW 52 Complete Formul Multivit) 1,500-800 unit-mcg capsule tamsulosin Yes .4mg Q.5D Take 1 [place] (FLOMAX) 8-25 capsule [facility] 0.4 mg 00:00: (0.[address] capsule 00 total) by mouth 2 (two) times a day. methylPREDN 2020- No follow Joel mathur ISolone 8-25 08-25 package [facility] (Medrol, 00:00: 00:[address] Luis Miguel,) 4 mg 00 :00 tablet QC QC 0 Yes RUCKMONAEANDA 2 sprays Uni vers Fluticasone Fluticasone 8-11 MAJID MMableD. each ity of Propionate Propionate 00:00: nostril [place] 50 MCG/ACT 50 MCG/ACT 00 once daily Physici SUSP SUSP ans simvastatin 2020-0 2020- No 40mg QD Take 40 mg Daw[facility] (ZOCOR) 40 7-30 07-30 by mouth Meth alexandre MG tablet 11:43: 00:[address] 21 :00 rasagiline 2020-0 Yes 1mg QD Take 1 mg [place] (AZILECT) 1 7-30 by mouth Meth alexandre MG tablet 11:23: daily. st 28 metoprolol 2020-0 Yes 25mg QD Take 25 mg [place] tartrate 7-30 by mouth [facility] (LOPRESSOR) 11:23: daily. st 25 mg 28 tablet carbidopa-l 2020-0 Yes 1{tbl} Q.[id number] Take 1 [facility] evodopa 7- [id number] tablet by Juan F glover (SINEMET) 11:23: 3D mouth 3 st 25-100 mg 28 (three) per tablet times a day. dexlansopra 2020-0 Yes 60mg Q.5D Take 60 mg Juancho zole 7-30 by mouth 2 [facility] (DEXILANT) 11:23: (two) st 60 mg 28 times a capsule day. levothyroxi 2020-0 Yes 50ug QD Take 50 Joel reagann ne 7-30 mcg by [facility] (SYNTHROID, 11:23: mouth st LEVOXYL) 50 28 daily. mcg tablet apixaban 2020-0 Yes Q.5D Take by Mary napoles (ELIQUIS) 7-30 mouth 2 [facility] 2.5 mg 11:23: (two) st tablet 28 times a day. cannabidiol 2020-0 Yes Q.5D Take by Joel mathur , CBD, 7-30 mouth 2 [facility] extract 100 11:23: (two) st mg/mL 28 times a solution day. ipratropium 2020-0 Yes 3mL Q.[id number] Take 3 mL [facility] -albuterol 7-30 [id number] by Met gillespie (DUO-NEB) 11:23: 3D nebulizati st 0.5-2.5 28 on 3 mg/3 mL (three) nebulizer times a day. fluticasone 2020-0 Yes QD Inhale [place] -umeclidin- 7-30 daily. Method i vilanter 11:23: st (TRELEGY 28 ELLIPTA) 100-62.5-25 mcg blister with device azithromyci 2020-0 Yes 250mg QD Take 250 [place] n 7-30 mg by [facility] (ZITHROMAX) 11:23: mouth st 250 MG 28 daily. tablet metFORMIN 2019-0 Yes 1000mg Q.5D Take 1,000 [facility] (GLUCOPHAGE 7-30 mg by [facility] ) 500 mg 11:23: mouth 2 st tablet 28 (two) times a day with meals. coenzyme 2020-0 2020- No 200mg QD Take 200 Joel ston Q10 (CO 7-30 07-30 mg by [facility] Q-10) 200 11:23: 00:[address] mg capsule 24 :00 nightly. leuprolide 2020-0 2020- No 30mg [place] (LUPRON) 6-11 [facility] depot 08:45: 10:00 st injection 00 :00 30 mg (RESTRICTED ) tamsulosin 2020-0 2020- No .4mg QD Take 0.4 [place] (FLOMAX) 5-28 05-28 mg by [facility] 0.4 mg 11:19: 00:[address] capsule 17 :00 daily with dinner. tamsulosin 2020-0 2020- No .8mg QD Take 2 [place] (FLOMAX) 5-28 07-30 capsules Method i 0.4 mg 00:00: 00:00 (0.[address] capsule 00 :00 total) by mouth daily with dinner. LORAZepam 2020-0 2020- No 1mg [facility] (ATIVAN) 07-31 05-08 [facility] injection 1 15:30: 15:15 st mg 00 :00 morPHINE 2 2020-0 2020- No acute pain 2mg [facility] mg/mL 07-31-08 [facility] injection 2 12:15: 15:15 st mg 00 :00 LORAZepam 2020-0 2020- No 1mg [facility] (ATIVAN) 07-31 05-08 [facility] injection 1 12:00: 12:02 st mg 00 :00 morPHINE 2 2020-0 2020- No acute pain 2mg [facility] mg/mL 07-31 05-08 [facility] injection 2 12:00: 12:02 st mg 00 :00 HYDROcodone 2019- 2020- No acute pain 1{tbl} Q6H Take 1 Juancho Raimrezacetaminop 07-31 05-15 tablet by Me jackie purvis ([place]) 00:00: 23:[address] 10-325 mg 00 :00 every 6 per tablet (six) hours as needed for moderate pain for up to 7 days .acute pain. Max Daily Amount: 4 tablets phenazopyri 2020- No 200mg Q.[id number] Take 1 Juancho dine 07-30 06- [id number] tablet Method i (Pyridium) 00:00: 23:59 3D ([address] 200 MG 00 :00 total) by tablet mouth 3 (three) times a day for 30 days. leuprolide 2020- No 30mg [place] (LUPRON) 05-06 [facility] depot 11:00: 11:16 st injection 00 :00 30 mg (RESTRICTED ) bicalutamid 2020- No 50mg QD Take 1 Joel reagann e (CASODEX) 04-29 03-04 tablet (50 M ethodi 50 mg chemo 00:00: 23:59 mg total) st tablet 00 :00 by mouth daily for 29 days. pregabalin 2019-0 2020- No 100mg Q.5D Take 100 [place] (LYRICA) 1-22 01-22 mg by [facility] 100 MG 15:06: 00:[address] capsule 05 :00 (two) times a day. celecoxib 2019-0 2020- No 200mg Q.5D Take 200 [place] (CeleBREX) 1-22 01-22 mg by Method[facility] 200 MG 15:04: 00:[address] capsule 16 :00 (two) times a day. Furosemide 2018-03 No Notes: Memor ia 20 MG Oral 2-16 (Same as: l Tablet 15:00: Lasix) [place] 00 May cause GI upset. Give with food or milk. Budesonide 2018-03 No Notes: Memor ia 0.5 MG/ML 2-15 (Same As: l Inhalant 15:55: Pulmicort) Her mcgrath Solution 00 60 ACTUAT 2018-03 No 2 puff, Memor ia tiotropium 2-15 Route: l 0.76348 15:00: INHALATION Herm greer MG/ACTUAT 00 , Daily, Metered Dosing Dose Weight Inhaler 97.3, kg, [Spiriva] Start date: 03/09/19 9:00:00 IOS ARCHITECT, Duration: 30 day, Stop date: 04/07/19 9:00:00 IOS ARCHITECT Rasagiline 2018-03 No Rasagiline M emoria 1 mg tablet 2-15 1 mg l 03:00: tablet, 1 Indra 00 mg / 1 tablet, Drug form: MISC, Route: PO, Daily, 03/08/19 21:00:00 IOS ARCHITECT, Duration: 30 day, Stop date: 04/06/19 21:00:00 IOS ARCHITECT, 0 rasagiline 2018-03 No 1 mg, Memori a 2-14 Route: PO, l 23:00: Drug form: Indra 00 TAB, QPM, Dosing Weight 97.3, kg, Start date: 03/08/19 17:00:00 IOS ARCHITECT, Duration: 30 day, Stop date: 04/06/19 17:00:00 IOS ARCHITECT Flomax 2018-03 No Notes: Memoria 2-14 (Same As: l 23:00: Flomax) "Do Not Crush" Bumex 2018-03 No Notes: Memoria 2-14 (Same As: l 19:19: Bumex) Spironolact 2018-03 No Notes: King kristina one 2-14 (Same As: l 19:19: Aldactone) Albuterol 2018-03 No Notes: Memori a 0.833 MG/ML 2-14 (Same as: l / 17:00: Duoneb) Ipratropium 00 [place]arcoxie 0.167 MG/ML Inhalant Solution CoQ10 2018-03 Yes 200 mg, Memoria 2-14 PO, Daily, l 16:49: 0 Indra 00 Refill(s) Zithromax 2018-03 No Notes: Memori a 2-14 Take 1 l 16:00: hour Indra before or 2 hours after meals. (Same As: Zithromax) Pulmicort 2018-03 No Notes: Memori a Respules 2-14 (Same As: l 15:54: Pulmicort) [place] 00 Dextrose 2018-03 No 12.5 gm, Memor ia 50% Syringe 2-14 25 mL, l (D50W) 15:15: Route: Indra 00 IVP, Drug Form: INJ, Dosing Weight 97.3, kg, PRN, PRN Blood Glucose Results, Start date: 03/08/19 9:15:00 IOS ARCHITECT, Duration: 30 day, Stop date: 04/07/19 9:14:00 IOS ARCHITECT, 0 Glucagon 2018-03 No 1 mg, Memoria 2-14 Route: IM, l 15:15: Drug form: Indra 00 PDR/INJ, PRN, Dosing Weight 97.3, kg, PRN Blood Glucose Results, Start date: 03/08/19 9:15:00 IOS ARCHITECT, Duration: 30 day, Stop date: 04/07/19 9:14:00 IOS ARCHITECT, 0 Insulin 2018-03 No Notes: Memoria Lispro 2-14 (Same as: l 15:15: Humalog) Indra 00 Roll in palms of hands gently; Do not shake vigorously . WASTE: F/P - Black; E - Municipal Trash Bin Stable for 28 days at room temperatur e. Expires in days from ____Date Advair 2018-03 No 1 Memoria Diskus 250 2-14 inhalation l mcg-50 mcg 15:09: , Route: Her mcgrath inhalation 00 INHALER, powder Drug Form: AERO, Dosing Weight 97.3, kg, RBID, Start date: 03/08/19 9:09:00 IOS ARCHITECT, Duration: 30 day, Stop date: 04/07/19 8:00:00 IOS ARCHITECT Lyrica 2018-03 No Notes: Memoria 2-14 Same as l 15:00: Lyrica [place] 00 Protonix 2018- No Notes: Memoria 2-14 Tablet l 15:00: should not [place] 00 be chewed or crushed. (Same as: Protonix) Thyroxine 2018- No Notes: Memori a 2-14 Take 1 l 13:30: hour [place] 00 before or 2 hours after meal; Enteral feeds may interefere with the absorption of this medication .(Same as:Levothr oid, Synthroid) *RN* pls 2018-03 No *RN* pls Memor ia bring pt's 2-14 bring pt's l own 06:00: own Indra rasagiline 00 rasagiline to [facility] for to [facility] for label label, attn, Drug form: MISC, Route: MISC, QSHIFT, 03/08/19 0:00:00 IOS ARCHITECT, Duration: 30 day, Stop date: 04/06/19 16:00:00 IOS ARCHITECT, 0 metoprolol 2018-03 No Notes: Memor ia 2-14 (Same as: l 05:00: Toprol XL) [place] 00 Do Not Crush Eliquis 2018-03 No Notes: Memoria 2-14 Same as: l 03:00: Eliquis metoprolol 2018-03 No metoprolol M emoria 25 mg oral 2-14 25 mg oral l tablet, 03:00: tablet, Indra extended 00 extended release release, 25 mg, Route: PO, Bedtime, 03/07/19 21:00:00 IOS ARCHITECT, Duration: 30 day, Stop date: 04/05/19 21:00:00 IOS ARCHITECT Simvastatin 2018-03 No Notes: King kristina 2-14 (Same as: l 03:00: Zocor) [place] 00 Requip 2018-03 No Notes: Memoria 2-14 (Same as: l 03:00: Requip) [place] 00 Solu-Medrol 2018-03 No Notes: King kristina 2-14 (Same l 03:00: as:Solu-ME Indra DROL, A-Methapre d) Omnipaque 2018-03 No 45 Memoria 350 2-14 mL/min, l injectable 03:00: Start Oleksandr n solution date: 03/07/19 21:00:00 IOS ARCHITECT, Duration: 1 doses or times Rocephin + 2018-03 No Notes: Memor ia sterile 2-14 (Same As: l water 10 mL 02:00: Rocephin). Indra 00 Use with 100 mL NS and infuse over 30 min MEDICATION WASTE Product Size: 1000 mg Product Wasted: ___ mg Prednisone 2018-03 No 40 mg, Memor ia 2-14 Route: PO, l 01:53: Drug form: [place] 00 TAB, Daily, Dosing Weight 97.3, kg, Priority: NOW, Start date: 03/07/19 19:53:00 IOS ARCHITECT, Duration: 30 day, Stop date: 04/06/19 9:00:00 IOS ARCHITECT NS 1,000 mL 2018-03 No 1,000 mL, M emoria 2-14 Rate: 75 l 01:47: ml/hr, Indra 00 Infuse over: 13.3 hr, Route: IV, Dosing Weight 97.3 kg, Total Volume: 1,000, Start date: 03/07/19 19:47:00 IOS ARCHITECT, Duration: 30 day, Stop date: 04/06/19 19:46:00 IOS ARCHITECT, 2.18, m2, 0 COQ10, 2018-03 Yes 200 mg, [facility]kins UBIQUINOL, 2-14 PO, Daily, Met hodi ORAL 00:00: 0 st 00 Refill(s) bumetanide 2018-03 Yes 1 mg = 1 Mem oria 1 mg oral 2-13 tab, PO, l tablet 22:17: Daily, # Indra 00 30 tab, 0 Refill(s) spironolact 2018-03 Yes 25 mg = 1 M emoria one 25 mg 2-13 tab, PO, l oral tablet 22:17: Daily, # He [place] 00 30 tab, 3 Refill(s) ropinirole 2018-03 Yes 0.5 mg = 1 M emoria 0.5 MG Oral 2-13 tab, PO, l Tablet 22:17: Bedtime, # Salud nn [Requip] 00 30 tab, 3 Refill(s) apixaban 2018-03 Yes 2.5 mg, Memori a 2.5 MG Oral 2-13 PO, Q12H, l Tablet 22:17: 0 Indra [Eliquis] 00 Refill(s) *RN* pls 2018-03 No *RN* pls Memor ia update 2-13 update l height, 21:45: height, [place] weight, and 00 weight, allergy in and adhoc allergy in adhoc, attn, Drug form: MISC, Route: MISC, Q15Min, 03/07/19 15:45:00 IOS ARCHITECT, Duration: 30 day, Stop date: 04/06/19 15:30:00 IOS ARCHITECT, 0 Dextrose 2018-03 No 12.5 gm, Memor ia 50% Syringe 2-13 25 mL, l (D50W) 20:36: Route: [place] 00 IVP, Drug Form: INJ, Dosing Weight 95.455, kg, PRN, PRN Blood Glucose Results, Start date: 03/07/19 14:36:00 IOS ARCHITECT, Duration: 30 day, Stop date: 04/06/19 14:35:00 IOS ARCHITECT, 0 Glucagon 2018-03 No 1 mg, Memoria 2-13 Route: IM, l 20:36: Drug form: Indra 00 PDR/INJ, PRN, Dosing Weight 95.455, kg, PRN Blood Glucose Results, Start date: 03/07/19 14:36:00 IOS ARCHITECT, Duration: 30 day, Stop date: 04/06/19 14:35:00 IOS ARCHITECT, 0 Docusate 2018-03 No Notes: Memoria 2-13 (Same as: l 20:36: Colace) (Do Not Crush) POLYETHYLEN 2018-03 No Notes: King kristina E GLYCOL 2-13 Dissolve l 3350 20:36: in 8 oz of water or juice. (Same as: Miralax) Bisacodyl 2018-03 No Notes: Memori a 2-13 (Same As: l 20:36: Dulcolax, Bisco-Lax) Ondansetron 2018-03 No Notes: King kristina 2-13 (Same as: l 20:36: Zofran) MEDICATION WASTE Product Size: 4 mg Product Wasted: ___ mg Diphenhydra 2018-03 No 25 mg, 1 Me moria mine 2-13 tab, l 20:36: Route: PO, Drug form: TAB, Q6H, Dosing Weight 95.455, kg, PRN as needed for allergy symptoms, Start date: 03/07/19 14:36:00 IOS ARCHITECT, Duration: 30 day, Stop date: 04/06/19 14:35:00 IOS ARCHITECT, 0 Melatonin 2018-03 No Notes: Memori a 2-13 (Same as: l 20:36: Melatonin) Trazodone 2018-03 No Notes: Memori a 2-13 (Same As: l 20:36: Desyrel) Acetaminoph 2018-03 No Notes: Do M emoria en 2-13 not exceed l 20:36: 4 gm/day. [place] 00 (Same as: Tylenol) Seroquel 2018-03 No Notes: Memoria 2-13 (Same as: l 20:36: SEROquel) [place] 00 Hydralazine 2018-03 No Notes: King kristina 2-13 (Same as: l 20:36: Apresoline [place] 00 ) Push over 5 minutes Nicotine 2018-03 No Notes: Memoria 2-13 (Same as: l 20:36: Habitrol) Isle "Remove old patch before applicatio n of new patch" WASTE: F/P - P Waste Black; E - P Waste Black Acetaminoph 2018-03 No Notes: King kristina en 325 MG / 2-13 (Same as: l Hydrocodone 20:36: [place] Salud nn Bitartrate 00 325/5) Do 5 MG Oral not exceed Tablet 4gm/day of [[place] acetaminop 5/325] hen. Morphine 2018-03 No Notes: Memoria 2-13 (Same l 20:36: as:MORPhin [place] 00 e Sulfate) Robitussin- 2018-03 No Notes: King kristina AC oral 2-13 (Same As: l syrup 20:36: Robitussin Oleksandr n 00 AC) Tessalon 2018-03 No Notes: Memoria Perles 2-13 (Same As: l 20:36: Tessalon Indra 00 Perles) "Do Not Crush" Mucinex 2018-03 No Notes: Memoria 2-13 (Same as: l 20:36: Guaifenesi Indra 00 n LA, Humibid LA, Mucinex) "Do Not Crush" Take medication with plenty of water. Simethicone 2018-03 No Notes: King kristina 2-13 (Same as: l 20:36: Mylicon) Indra 00 Maalox 2018-03 No Notes: Memoria Advanced 2-13 (aluminum l Regular 20:36: hydroxide- Herm greer Strength 00 magnesium SUSP hyd-simeth icone 200-200-20 mg/5ml 30 ml ud IMTIAZ) Albuterol 2018-03 No Notes: Memori a 0.833 MG/ML 2-13 (Same as: l / 20:36: Duoneb) Indra Ipratropium 00 Sarcoxie 0.167 MG/ML Inhalant Solution [DuoNeb] phenol 2018-03 No Notes: Memoria 2-13 Chlorasept l 20:36: ic Hubertus Indra (Same as: Chlorasept ic, Sore Throat Hubertus) WASTE: F/P - Black; E - Municipal Trash Bin Artificial 2018-03 No 1 drp, Memor ia Tears 2-13 Route: l 20:36: Each [place] 00 Affected Eye, QID, Drug form: SOLN, PRN Dry Eyes, Start date: 03/07/19 14:36:00 IOS ARCHITECT, Duration: 30 day, Stop date: 04/06/19 14:35:00 IOS ARCHITECT, 0 Lidocaine 2018-03 No Notes: Memori a 0.05 MG/MG 2-13 Apply only l Transdermal 20:36: once for He rmann Patch 00 up to 12 hours in a 24-hour period (12 hours on and 12 hours off). (Same as: Lidoderm) "Remove old patch before applicatio n of new patch" Lactulose 2018-03 No Notes: Memori a 667 MG/ML - (Same l Oral 20:36: as:Chronul Indra Solution 00 ac) Benzocaine 2018-03 No Notes: Memor ia 15 MG / 2-13 Same as: l Menthol 3.6 20:36: Cepacol Her mcgrath MG Lozenge 00 [Cepacol Sore Throat Pain Relief 15/3.6] spironolact 2018-03 Yes 25 mg = 1 [place] one 2-13 tab, PO, Methodi (ALDACTONE) 00:00: Daily, # st 25 MG 00 30 tab, 3 tablet Refill(s) Osteo 2018-03 Yes 0 Memoria Bi-Flex 2-12 Refill(s) l 22:17: [place] cefTRIAXone 2018-03 Yes Elevated 1g [place] (ROCEPHIN) 1-26 PSA Methodi injection 1 10:45: st g 00 ropinirole No Notes: Memor ia 2-23 (Same as: l 15:00: Requip) tramadol Yes 1-2 tab, Memor ia hydrochlori 2-23 PO, Q6H, l de 50 MG 14:18: PRN Pain, Herm greer Oral Tablet 00 X 10 day, # 40 tab, 0 Refill(s) celecoxib Yes 200 mg = 1 Me moria 200 MG Oral 2-23 cap, PO, l Capsule 14:18: Daily, # Oleksandr n [Celebrex] 00 30 cap, 0 Refill(s) Acetaminoph Yes 1 - 2 tab, Memoria en 300 MG / 2-23 PO, Q6H, l Codeine 14:18: PRN Pain, Salud nn Phosphate 00 X 7 day, # 30 MG Oral 40 tab, 0 Tablet Refill(s) [Tylenol with Codeine #3] doxycycline Yes 100 mg = 1 Memoria hyclate 100 2-23 tab, PO, l MG Oral 13:59: Q12H, X 14 Herm greer Tablet 00 day, # 28 tab, 0 Refill(s) Thyroxine No Notes: Memori a 2-23 Take 1 l 12:30: hour [place] 00 before or 2 hours after meal; Enteral feeds may interefere with the absorption of this medication .(Same as:Levothr oid, Synthroid) Saline No 10 ml, Memoria Flush 0.9% -23 Route: l 03:00: IVP, Drug Form: INJ, Dosing Weight 95.455, kg, Q12H, Start date: 05/17/18 21:00:00 IOS ARCHITECT, Duration: 30 day, Stop date: 06/16/18 9:00:00 CDT Simvastatin No Notes: King kristina 2-23 (Same as: l 03:00: Zocor) Enoxaparin No Notes: Memor ia 2-23 (Same as: l 00:30: Lovenox) Indra 00 Protonix No Notes: Memoria 2-23 Tablet l 00:00: should not [place] 00 be chewed or crushed. (Same as: Protonix) Cefazolin No Notes: Memori a 2-23 (Same As: l 00:00: Ancef, Indra Kefzol) MEDICATION WASTE Product Size: 1000 mg Product Wasted: ___ mg Docusate No Notes: Memoria Sodium 100 2-22 (Same as: l MG Oral 23:00: Colace) Isle Capsule 00 (Do Not Crush) Flomax No Notes: Memoria - (Same As: l 23:00: Flomax) "Do Not Crush" rasagiline No Notes: Memor ia 05-17 Same as l 23:00: Azilect Non Formulary Item Lyrica No Notes: Memoria 05-17 (Same as: l 23:00: Lyrica) Cymbalta No 60 mg, Memoria 05-17 Route: PO, l 23:00: Drug form: DRC, QPM, Dosing Weight 95.455, kg, Start date: 05/17/18 17:00:00 IOS ARCHITECT, Duration: 30 day, Stop date: 06/15/18 17:00:00 CDT Dexilant No 60 mg, Memoria 05-17 Route: PO, l 23:00: Drug form: DRC, BID, Dosing Weight 95.455, kg, Start date: 05/17/18 17:00:00 IOS ARCHITECT, Duration: 30 day, Stop date: 06/16/18 9:00:00 CDT Streptococc No 0.5 mL, Mem oria us 05-17 Route: IM, l pneumoniae 20:39: ONCALL, Herm greer serotype 1 45 Start capsular date: antigen 05/17/18 diphtheria 14:39:45 [id number] IOS ARCHITECT, Stop protein date: conjugate 06/16/18 vaccine / 14:34:45 Streptococc CDT us pneumoniae serotype 14 capsular antigen diphtheria [id number] protein conjugate vaccine / Streptococc us pneumoniae serotype 18C capsular antigen d glycopyrrol No Route: IV, Memoria ate (ANES) 05-17 Drug form: l 18:57: INJ, ONCE, Stop date: 05/17/18 12:57:00 IOS ARCHITECT neostigmine No Route: IV, Memoria (ANES) 05-17 Drug form: l 18:57: INJ, ONCE, Stop date: 05/17/18 12:57:00 IOS ARCHITECT Sodium 0 No 25 mL, Memoria Chloride 05-17 Route: IV, l 0.9% IV 18:57: Start date: 05/17/18 12:57:00 IOS ARCHITECT, Duration: 30 day, Stop date: 06/16/18 13:56:00 CDT, PRN Line Flush BD Normal No Notes: Memori a Saline - (Same as: l Flush 18:57: BD Posiflush) famotidine No Route: IV, M emoria (ANES) - Drug form: l 18:52: INJ, ONCE, Stop date: 05/17/18 12:52:00 IOS ARCHITECT ropivacaine No Notes: King kristina - Final l 18:52: concentrat ion: Ropivacain e 0.2% 400 ml Oxycodone No Notes: Memori a Hydrochlori 05-17 (Same as: l de 5 MG 18:34: Roxicodone Herm greer Oral Tablet ) propofol No Route: IV, Mem oria (ANES) 05-17 Drug form: l 18:32: INJ, ONCE, Stop date: 05/17/18 12:32:00 IOS ARCHITECT fentaNYL No Route: IV, Mem oria (ANES) 05-17 Drug form: l 18:27: INJ, ONCE, Stop date: 05/17/18 12:27:00 IOS ARCHITECT Saline No 10 ml, Memoria Flush 0.9% 05-17 Route: l 18:27: IVP, Drug Form: INJ, Dosing Weight 95.455, kg, PRN, PRN Line Flush, Start date: 05/17/18 12:27:00 IOS ARCHITECT, Duration: 30 day, Stop date: 06/16/18 13:26:00 CDT Ondansetron No Notes: King kristina 2-22 (Same as: l 18:27: Zofran) MEDICATION WASTE Product Size: 4 mg Product Wasted: ___ mg Lactated No 1,000 mL, King kristina Ringers IV 05-17 Rate: 125 l 1,000 mL 18:27: ml/hr, Infuse over: 8 hr, Route: IV, Dosing Weight 95.455 kg, Total Volume: 1,000, Start date: 05/17/18 12:27:00 IOS ARCHITECT, Duration: 30 day, Stop date: 06/16/18 12:26:00 CDT, 2.18, m2 Morphine No Notes: Memoria - (Same l 18:27: as:MORPhin Indra 00 e Sulfate) Acetaminoph No Notes: Do M emoria en 05-17 not exceed l 18:27: 4 gm/day. Isle 00 (Same as: Tylenol) tranexamic No Route: IV, M emoria acid (ANES) 05-17 Drug form: l 100 mg 18:00: INJ, Start Salud date: 05/17/18 12:00:00 IOS ARCHITECT, Stop date: 05/17/18 13:00:00 IOS ARCHITECT dexamethaso No Route: IV, Memoria ne (ANES) 05-17 Drug form: l 17:01: INJ, ONCE, Stop date: 05/17/18 11:01:00 IOS ARCHITECT tranexamic No Route: IV, M emoria acid (ANES) 05-17 Drug form: l 17:01: INJ, ONCE, Stop date: 05/17/18 11:01:00 IOS ARCHITECT rocuronium No Route: IV, M emoria (ANES) 05-17 Drug form: l 17:01: INJ, ONCE, Stop date: 05/17/18 11:01:00 IOS ARCHITECT ondansetron No Route: IV, Memoria (ANES) 05-17 Drug form: l 17:01: INJ, ONCE, Stop date: 05/17/18 11:01:00 IOS ARCHITECT propofol 2018-0 No Route: IV, Mem oria (ANES) - Drug form: l 17:01: INJ, ONCE, Stop date: 05/17/18 11:01:00 IOS ARCHITECT lidocaine 2018-0 No Route: IV, Me moria (ANES) - Drug form: l 16:56: INJ, ONCE, Stop date: 05/17/18 10:56:00 IOS ARCHITECT fentaNYL 2019-0 No Route: IV, Mem oria (ANES) 2- Drug form: l 16:56: INJ, ONCE, Stop date: 05/17/18 10:56:00 IOS ARCHITECT phenylephri No Route: IV, Memoria ne (ANES) 2 Drug form: l [id number] 16:52: INJ, Start Oleksandr n microgram 00 date: 05/17/18 10:52:00 IOS ARCHITECT, Stop date: 05/17/18 11:52:00 IOS ARCHITECT phenylephri No Route: IV, Memoria ne (ANES) 2 Drug form: l 16:51: INJ, ONCE, Indra Stop date: 05/17/18 10:51:00 IOS ARCHITECT ceFAZolin No Route: IV, Me moria (ANES) 2 Drug form: l 16:51: INJ, ONCE, Isle Stop date: 05/17/18 10:51:00 IOS ARCHITECT ePHEDrine No Route: IV, Me moria (ANES) 05-17 Drug form: l 16:51: INJ, ONCE, Indra Stop date: 05/17/18 10:51:00 IOS ARCHITECT Ondansetron No Notes: King kristina 2- (Same as: l 16:44: Zofran) MEDICATION WASTE Product Size: 4 mg Product Wasted: ___ mg Flumazenil No Notes: Memor ia 2- (Same as: l 16:44: Romazicon) Naloxone No Notes: Memoria 2-22 Same as l 16:44: Narcan Ketorolac No 4 days Memor ia - l 16:44: MEDICATION WASTE Product Size: 30 mg Product Wasted: ___ mg Acetaminoph No Notes: Max Memoria en 2- acetaminop l 16:44: hen 4000 mg/day (4 gm/day). (Same as: Tylenol Extra Strength) Labetalol No Notes: Memori a 2-22 (Same as: l 16:44: Normodyne, Indra Trandate) Push over 2 minutes Give bolus over 2-3 minutes. Morphine No Notes: Memoria 2-22 (Same l 16:44: as:MORPhin Isle 00 e Sulfate) Hydralazine No Notes: King kristina 2-22 (Same as: l 16:44: Apresoline [place] 00 ) Push over 5 minutes Lactated No Route: IV, Mem oria Ringers 2-22 Total l Injection 15:51: Volume: Salud nn IV (ANES) 00 1,000, 1000 mL Start date: 05/17/18 9:51:00 IOS ARCHITECT, Stop date: 05/17/18 10:51:00 IOS ARCHITECT ceFAZolin + No Notes: King kristina sterile 2-22 (Same As: l water 20 mL 06:00: Ancef, Herm greer 00 Kefzol) MEDICATION WASTE Product Size: 1000 mg Product Wasted: ___ mg Trazodone Yes 100 mg = 1 Me moria Hydrochlori 2-21 tab, PO, l de 100 MG 22:58: Bedtime, 0 He rmann Oral Tablet 00 Refill(s) dexlansopra Yes 60 mg = 1 M emoria zole 60 MG 2-21 cap, PO, l Enteric 22:44: BID, 0 [place] Coated 00 Refill(s) Capsule [Dexilant] rOPINIRole Yes 0.5 mg = 1 M emoria 0.5 mg oral 2-21 tab, PO, l tablet 22:42: Daily, 0 Indra 00 Refill(s) pregabalin Yes 100 mg = 1 M emoria 100 MG Oral 2-11 cap, PO, l Capsule 16:00: BID, # 60 Salud nn [Lyrica] 00 cap, 1 Refill(s) Sodium 2019- No 1,000 mL, Memori a Chloride 2-11 Rate: 25 l 0.9% IV 08:37: ml/hr, Indra 1,000 mL 00 Infuse over: 40 hr, Route: IV, Dosing Weight 94.545 kg, Total Volume: 1,000, Start date: 05/06/18 2:37:00 IOS ARCHITECT, Duration: 30 day, Stop date: 06/05/18 2:36:00 CDT, 2.17, m2 Omnipaque No Notes: Memori a 300 2-07 (Same l injectable 20:00: as:Omnipaq H ermann solution 00 ue 300). WASTE: F/P - Black; E - Municipal Trash Bin fluticasone Yes Inhale. Joel mathur propion-fransisco 8-13 Methodi meteroL 00:00: st (Advair 00 HFA) 230-21 mcg/actuati on inhaler Albuterol Albuterol No MEGGAN 1 unit U nivers Sulfate Sulfate 08-30 HARRY dose by ity of 1.25 MG/3ML 1.25 MG/3ML 00:00: M.D. nebulizer [place] Inhalation Inhalation 00 in clinic Physici Nebulizatio Nebulizatio a ns n Solution n Solution Ipratropium Ipratropium No MEGGAN one dose Univers Sarcoxie Sarcoxie 08-30 HARRY at clinic it y of 0.02 % 0.02 % 00:00: M.D. now [place] Inhalation Inhalation 00 Phy sici Solution Solution ans Ipratropium Ipratropium Yes MEGGAN 1 vial in Univers -Albuterol -Albuterol 08-30 HARRY nebulizer ity of 0.5-2.5 (3) 0.5-2.5 (3) 00:00: M.D. every 4-6 [place] MG/3ML MG/3ML 00 hours as Physici Inhalation Inhalation needed for ans Solution Solution chest tightness, wheezing, shortness of breath, or prior to exertion, max use 6xdaily Esomeprazol Esomeprazol Yes MEGGAN take one Univers e Magnesium e Magnesium 08-30 HARRY capsule 30 ity of 20 MG Oral 20 MG Oral 00:00: M.D. minutes [place] Capsule Capsule 00 before Physici Delayed Delayed first meal ans Release Release of the day and one capsule 30 minutes before evening meal Ipratropium Ipratropium No MEGGAN one dose Univers Sarcoxie Sarcoxie 08-30 HARRY at clinic it y of 0.02 % 0.02 % 00:00: M.D. now [place] Inhalation Inhalation 00 Phy sici Solution Solution ans esomeprazol Yes Take by Joel mathur e (NexIUM) 08-30 mouth. Methodi 20 MG 00:00: st capsule 00 Trelegy Trelegy 2018-0 Yes MEGGAN use one Univ ers Ellipta Ellipta 08 HARRY puff one ity of 100-62.5-25 100-62.5-25 00:00: M.D. time daily [place] MCG/INH MCG/INH 00 and rinse Phys ici Inhalation Inhalation mouth an s Aerosol Aerosol afterwards Powder Powder Breath Breath Activated Activated Albuterol Albuterol Yes MEGGAN USE 1 UNIT Univers Sulfate Sulfate 05-31 HARRY DOSE IN ity of (2.5 (2.5 00:00: M.D. NEBULIZER [place] MG/3ML) MG/3ML) 00 EVERY 4 TO Phy sici 0.083% 0.083% 6 HOURS ans Inhalation Inhalation NEEDED. Nebulizatio Nebulizatio n Solution n Solution albuterol Yes Inhale. [place] on (ACCUNEB) 05-31 Methodi 2.5 mg /3 00:00: st mL (0.083 00 %) nebulizer solution meropenem No 1,000 mg, Mem oria 1000 MG 2-23 IV, Q12H, l Injection 21:29: X 35 day, Her mcgrath [Merrem] 00 # 70 bag, 0 Refill(s), other vancomycin No 1 gm, IV, Me moria 1 g 2-23 Q12H, X 35 l intravenous 21:29: day, # 70 H ermann injection 00 bag, 0 Refill(s), other budesonide- No Notes: King kristina formoterol 2-23 (Same as: l 02:00: Symbicort) [place] WASTE: Aerosol - Return to Pharmacy rasagiline No Notes: Memor ia 2-21 Same as l 23:00: Azilect Indra Non Formulary Item Cymbalta No Notes: Memoria 2-21 (Same as: l 23:00: Cymbalta) Isle (Do Not Crush) Flomax No Notes: Memoria 2-21 (Same As: l 23:00: Flomax) Indra "Do Not Crush" Cathflo No Notes: Memoria Activase 2 2-21 "Syringe l mg 22:39: for [place] injection 00 catheter clearance or interventi onal radiology use. Reconstitu te each vial of Cathflo Activase with 2.2 ml Sterile Water resulting in a 1 mg/ml solution. (Same as: Activase) MEDICATION WASTE Product Size: 2 mg Product Wasted: ___ mg Protonix No Notes: Memoria 2-21 Tablet l 22:30: should not [place] 00 be chewed or crushed. (Same as: Protonix) Oxycodone No Notes: Memori a Hydrochlori 2-21 (Same as: l de 5 MG 21:33: Roxicodone Herm greer Oral Tablet 00 ) 24 HR No Notes: Memoria Metoprolol 2-21 (Same as: l Tartrate 25 15:00: Toprol XL) [place] MG Extended 00 Do Not Release Crush Tablet [Toprol] Dulera 200 No 2 puff, Kign kristina mcg-5 -21 Route: l mcg/inh 15:00: INHALER, Oleksandr n inhalation 00 Drug Form: aerosol AERO, Dosing Weight 94.545, kg, BID, Start date: 05/16/17 9:00:00 IOS ARCHITECT, Duration: 30 day, Stop date: 06/14/17 17:00:00 CDT Nexium No 40 mg, Memoria 2-21 Route: PO, l 15:00: Drug form: [place] 00 ECCAP, BID, Dosing Weight 94.545, kg, Start date: 05/16/17 9:00:00 IOS ARCHITECT, Duration: 30 day, Stop date: 06/14/17 17:00:00 CDT albuterol No Route: PO, Me moria 90 mcg/inh 21 Drug Form: l inhalation 15:00: AERO/A, Herm greer aerosol 00 Dosing Weight 94.545, kg, BID, Start date: 05/16/17 9:00:00 IOS ARCHITECT, Duration: 30 day, Stop date: 06/14/17 17:00:00 CDT Docusate No Notes: Memoria Sodium 100 2-21 (Same as: l MG Oral 15:00: Colace) Indra Capsule 00 (Do Not [Colace] Crush) Thyroxine No Notes: Memori a 2-21 Take 1 l 12:30: hour Indra 00 before or 2 hours after meal; Enteral feeds may interefere with the absorption of this medication .(Same as:Levothr oid, Synthroid) albuterol No Notes: SEE Me moria 2-21 RT l 08:39: DOCUMENTAT Indra ION (Same as: Proventil) Melatonin No 10 mg, Memori a 2-21 Route: PO, l 03:00: Drug form: Indra CAP, Bedtime, Dosing Weight 94.545, kg, Start date: 05/15/17 21:00:00 IOS ARCHITECT, Duration: 30 day, Stop date: 06/13/17 21:00:00 CDT melatonin No Notes: Memori a 2-21 (Same as: l 03:00: Melatonin) [place] Simvastatin No Notes: King kristina 2-21 (Same as: l 03:00: Zocor) heparin No Notes: Memoria 2-21 porcine l 03:00: heparin meropenem No Notes: Memori a 2-21 (Same as: l 00:00: Merrem) . Indra 00 MEDICATION WASTE Product Size: 1000 mg Product Wasted: ___ mg Clonidine No Notes: Memori a Hydrochlori 2-20 (Same As: l de 0.1 MG 23:37: Catapres) Her mcgrath Oral Tablet 00 Vasotec No Notes: Memoria 2-20 (Same as: l 23:37: Vasotec-IV Indra ) Potassium No Notes: Memori a Chloride 2-20 (Same as: l 23:37: K-Dur 20) "Do Not Crush" With food and full glass of water Albuterol No Notes: SEE Me moria 0.83 MG/ML 2-20 RT l Inhalant 23:37: DOCUMENTAT Her mcgrath Solution 00 ION (Same as: Proventil) lactobacill No 1 tab, King kristina us 2-20 Route: PO, l acidophilus 23:26: Drug Form: [place] 00 TAB, Dosing Weight 94.545, kg, BID, Start date: 05/15/17 17:26:00 IOS ARCHITECT, Duration: 30 day, Stop date: 06/14/17 17:00:00 CDT Vancomycin 2018-0 No 2001 mg: Me moria 2-20 infuse l 23:00: over 2.5 hours For adult patients only: Round to nearest 250 mg per Medical Staff approval MEDICATION WASTE Product Size: 1000 mg Product Wasted: ___ mg Ceftriaxone 2017- No Notes: King kristina 2-20 (Same As: l 20:00: Rocephin). Use with 100 mL NS and infuse over 30 min MEDICATION WASTE Product Size: 1000 mg Product Wasted: ___ mg Acetaminoph 2017- No Notes: Do M emoria en 2-20 not exceed l 18:19: 4 gm/day. (Same as: Tylenol) ondansetron No Route: IV, Memoria (ANES) 2-20 Drug form: l 14:52: INJ, ONCE, Stop date: 05/15/17 8:52:00 IOS ARCHITECT glycopyrrol No Route: IV, Memoria ate (ANES) 2-20 Drug form: l 14:52: INJ, ONCE, Stop date: 05/15/17 8:52:00 IOS ARCHITECT neostigmine 2017- No Route: IV, Memoria (ANES) 2-20 Drug form: l 14:52: INJ, ONCE, Stop date: 05/15/17 8:52:00 IOS ARCHITECT famotidine 2017- No Route: IV, M emoria (ANES) 2-20 Drug form: l 14:52: INJ, ONCE, Stop date: 05/15/17 8:52:00 IOS ARCHITECT Morphine 2017- No Notes: Memoria 2-20 (Same l 14:43: as:MORPhin e Sulfate) ePHEDrine No Route: IV, Me moria (ANES) 2-20 Drug form: l 14:39: INJ, ONCE, Stop date: 05/15/17 8:39:00 IOS ARCHITECT phenylephri 2017- No Route: IV, Memoria ne (ANES) 2-20 Drug form: l 14:34: INJ, ONCE, Stop date: 05/15/17 8:34:00 IOS ARCHITECT rocuronium 2018-0 No Route: IV, M emoria (ANES) 2-20 Drug form: l 14:29: INJ, ONCE, Stop date: 05/15/17 8:29:00 IOS ARCHITECT ceFAZolin 2018-0 No Route: IV, Me moria (ANES) 2-20 Drug form: l 14:29: INJ, ONCE, Stop date: 05/15/17 8:29:00 IOS ARCHITECT propofol 2018-0 No Route: IV, Mem oria (ANES) 2-20 Drug form: l 14:24: INJ, ONCE, Stop date: 05/15/17 8:24:00 IOS ARCHITECT succinylcho 2018-0 No Route: IV, Memoria line (ANES) 2-20 Drug form: l 14:24: INJ, ONCE, Stop date: 05/15/17 8:24:00 IOS ARCHITECT Promethazin 2018-0 No 6.25 mg, Me moria e -20 Route: l 14:22: IVPB, Indra 00 ONCE, Dosing Weight 95.455, kg, PRN Nausea & Vomiting, Start date: 05/15/17 8:22:00 IOS ARCHITECT Ondansetron 2018-0 No 4 mg, Memor ia 2-20 Route: l 14:22: IVP, ONCE, Isle Dosing Weight 95.455, kg, PRN Nausea & Vomiting, Start date: 05/15/17 8:22:00 IOS ARCHITECT Meperidine 2018-0 No 12.5 mg, Mem oria -20 Route: l 14:22: IVP, Indra 00 Q30Min, Dosing Weight 95.455, kg, PRN Other -See Comment, For shivering, Start date: 05/15/17 8:22:00 IOS ARCHITECT, Duration: 2 doses or times, Stop date: Limited # of times Albuterol 2018-0 No 2.49 mg, King kristina 0.83 MG/ML 2-20 Route: l Inhalant 14:22: NEB, [place] Solution 00 Q20Min, Dosing Weight 95.455, kg, PRN Wheezing, Priority: STAT, Start date: 05/15/17 8:22:00 IOS ARCHITECT, Duration: 30 day, Stop date: 06/14/17 9:21:00 CDT Flumazenil 2018-0 No 0.2 mg, King kristina 2-20 Route: l 14:22: IVP, PRN, [place] 00 Dosing Weight 95.455, kg, PRN Benzodiaze pine Reversal, Initial dose, Start date: 05/15/17 8:22:00 IOS ARCHITECT, Duration: 30 day, Stop date: 06/14/17 9:21:00 CDT Morphine 2018-0 No 2 mg, Memoria 2-20 Route: l 14:22: IVP, [place] 00 Q5Min, Dosing Weight 95.455, kg, PRN Pain Score 4-6, Start date: 05/15/17 8:22:00 IOS ARCHITECT, Duration: 5 doses or times, Stop date: Limited # of times Hydromorpho 2018-0 No 0.5 mg, Mem oria ne 2-20 Route: l 14:22: IVP, Indra 00 Q5Min, Dosing Weight 95.455, kg, PRN Pain Score 7-10, Start date: 05/15/17 8:22:00 IOS ARCHITECT, Duration: 4 doses or times, Stop date: Limited # of times Naloxone 2018-0 No 0.4 mg, Memori a 2-20 Route: l 14:22: IVP, [place] 00 Q2MIN, Dosing Weight 95.455, kg, PRN Narcotic Reversal, Start date: 05/15/17 8:22:00 IOS ARCHITECT, Duration: 8 doses or times, Stop date: Limited # of times Labetalol 2018-0 No 10 mg, Memori a 2-20 Route: l 14:22: IVP, [place] 00 Q5Min, Dosing Weight 95.455, kg, PRN Elevated BP, Start date: 05/15/17 8:22:00 IOS ARCHITECT, Duration: 5 doses or times, Stop date: Limited # of times lidocaine 2018-0 No Route: IV, Me moria (ANES) 2-20 Drug form: l 14:19: INJ, ONCE, Stop date: 05/15/17 8:19:00 IOS ARCHITECT fentaNYL 2018-0 No Route: IV, Mem oria (ANES) 2-20 Drug form: l 14:19: INJ, ONCE, Stop date: 05/15/17 8:19:00 IOS ARCHITECT acetaminoph No Route: IV, Memoria en (ANES) 2-20 Drug form: l 10 mg 14:14: INJ, Start Oleksandr n 00 date: 05/15/17 8:14:00 IOS ARCHITECT, Stop date: 05/15/17 9:14:00 IOS ARCHITECT Lactated 2017-0 No Route: IV, Mem oria Ringers 2-20 Total l Injection 13:14: Volume: Salud nn IV (ANES) 00 1,000, 1000 mL Start date: 05/15/17 7:14:00 IOS ARCHITECT, Stop date: 05/15/17 8:14:00 IOS ARCHITECT ceFAZolin + No Notes: King kristina sterile 2-20 (Same As: l water 20 mL 05:00: Ancef, Herm greer 00 Kefzol) MEDICATION WASTE Product Size: 1000 mg Product Wasted: ___ mg Ceftriaxone 2018 No 2 gm, IV, M emoria 1000 MG 2-12 Daily, X l Injection 18:46: 14 day, # Her mcgrath [Rocephin] 00 14 bag, 0 Refill(s), other vancomycin No 1 gm, IV, Me moria 1 g 2-12 Q12H, X 14 l intravenous 18:46: day, # 28 H ermann injection 00 bag, 0 Refill(s), other Ceftriaxone No Notes: King kristina 2-10 (Same As: l 03:00: Rocephin). Isle 00 Use with 100 mL NS and infuse over 30 min MEDICATION WASTE Product Size: 1000 mg Product Wasted: ___ mg 24 HR No Notes: Memoria Metoprolol 2-09 (Same as: l Tartrate 25 15:00: Toprol XL) [place] MG Extended 00 Do Not Release Crush Tablet [Toprol] Dulera 200 No 2 puff, King kristina mcg-5 2-09 Route: l mcg/inh 15:00: INHALER, Oleksandr n inhalation 00 Drug Form: aerosol AERO, Dosing Weight 103.4, kg, BID, Start date: 05/04/17 9:00:00 IOS ARCHITECT, Duration: 30 day, Stop date: 06/02/17 17:00:00 IOS ARCHITECT Clonidine No Notes: Memori a Hydrochlori - (Same As: l de 0.1 MG 14:07: Catapres) Her mcgrath Oral Tablet 00 Vasotec No Notes: Memoria 2- (Same as: l 14:07: Vasotec-IV Indra ) cetirizine No Notes: Memor ia 2- (Same As: l 17:30: Zyrtec) Indra Fluticasone No 2 spray, Me moria propionate 08 Route: l 0.05 17:01: Each Indra MG/ACTUAT 00 Affected Metered Nostril, Dose Nasal Drug Form: Hubertus SPRY, [Flonase] Dosing Weight 103.4, kg, Daily, Start date: 05/03/17 11:01:00 IOS ARCHITECT, Duration: 30 day, Stop date: 06/02/17 9:00:00 IOS ARCHITECT Loratadine No 10 mg, Memor ia 05-03 Route: PO, l 15:00: Drug form: [place] 00 TAB, Daily, Dosing Weight 103.4, kg, Start date: 05/03/17 9:00:00 IOS ARCHITECT, Duration: 30 day, Stop date: 06/01/17 9:00:00 IOS ARCHITECT, .. lactobacill No 1 tab, King kristina us 05-02 Route: PO, l acidophilus 15:00: Drug Form: Indra 00 TAB, Dosing Weight 95.455, kg, BID, Start date: 05/02/17 9:00:00 IOS ARCHITECT, Duration: 30 day, Stop date: 05/31/17 17:00:00 IOS ARCHITECT INCRUSE No INCRUSE Memoria Ellipta 2-07 Ellipta l 62.5mcg 14:00: 62.5mcg [place] inhalation 00 inhalation powder powder, 1 inhalation (Pt's own med), Drug form: MISC, Route: INHALER, RDaily, 05/02/17 8:00:00 IOS ARCHITECT, Duration: 30 day, Stop date: 05/31/17 8:00:00 IOS ARCHITECT Incruse Yes 62.5 Memoria Ellipta 2-07 microgram, l 62.5 mcg 13:50: INHALATION Her mcgrath inhalation 00 , Daily, 0 powder Refill(s) Dulera 200 Yes 2 puff, King kristina mcg-5 - INHALER, l mcg/inh 13:49: BID, # 1 Oleksandr n inhalation 00 ea aerosol Thyroxine No Notes: Memori a 2-07 Take 1 l 12:30: hour Indra 00 before or 2 hours after meal; Enteral feeds may interefere with the absorption of this medication .(Same as:Levothr oid, Synthroid) heparin No Notes: Memoria 05-02 porcine l 04:30: heparin Indra Simvastatin No Notes: King kristina - (Same as: l 03:00: Zocor) [place] Melatonin No Notes: Memori a 05-02 (Same as: l 03:00: Melatonin) Nidra 200 ACTUAT No Notes: SEE Juan F powersria Albuterol 05-02 RT l 0.09 02:00: DOCUMENTAT [place] MG/ACTUAT 00 ION (Same Metered as: Dose Proventil) Inhaler [ProAir HFA] DULERA No DULERA Memoria 200mcg/5mcg 05-02 200mcg/5mc l per 02:00: g per [place] actuation 00 actuation INHALER INHALER, 2 puffs (Pt's own med), Drug form: MISC, Route: INHALER, RBID, 05/01/17 20:00:00 IOS ARCHITECT, Duration: 30 day, Stop date: 05/31/17 8:00:00 IOS ARCHITECT cefepime No Notes: Memoria 05-02 (Same As: l 02:00: Maxipime) [place] 00 MEDICATION WASTE Product Size: 1000 mg Product Wasted: ___ mg Vancomycin No 2000 mg: Me moria 2 infuse l 02:00: over 2.5 Indra 00 hours For adult patients only: Round to nearest 250 mg per Medical Staff approval MEDICATION WASTE Product Size: 1000 mg Product Wasted: ___ mg Acetaminoph No Notes: Do M emoria en 05-02 not exceed l 00:00: 4 gm/day. Isle 00 (Same as: Tylenol) Protonix 2018-0 No 40 mg, 1 Memor ia 2-07 tab, l 00:00: Route: PO, Isle Drug form: ECTAB, BID-Before Meals, Start date: 05/01/17 18:00:00 IOS ARCHITECT, Duration: 30 day, Stop date: 05/31/17 16:30:00 IOS ARCHITECT Flomax 2018-0 No Notes: Memoria 2-06 (Same As: l 23:20: Flomax) Indra 00 "Do Not Crush" rasagiline 2017-0 No Notes: Memor ia 2-06 Same as l 23:20: Azilect Indra Non Formulary Item Cymbalta 2018-0 No 60 mg, 2 Memor ia 2-06 cap, l 23:17: Route: PO, Indra Drug form: DRC, QPM, Dosing Weight 95.455, kg, Start date: 05/01/17 17:17:00 IOS ARCHITECT, Duration: 30 day, Stop date: 05/31/17 17:00:00 IOS ARCHITECT Nexium 2018-0 No 40 mg, Memoria 2-06 Route: PO, l 23:00: Drug form: Indra ECCAP, BID, Dosing Weight 95.455, kg, Start date: 05/01/17 17:00:00 IOS ARCHITECT, Duration: 30 day, Stop date: 05/31/17 9:00:00 IOS ARCHITECT Docusate 2018-0 No 100 mg, 1 King kristina Sodium 100 2-06 cap, l MG Oral 23:00: Route: PO, Herm greer Capsule 00 Drug form: CAP, BID, Dosing Weight 95.455, kg, Start date: 05/01/17 17:00:00 IOS ARCHITECT, Duration: 30 day, Stop date: 05/31/17 9:00:00 IOS ARCHITECT Asmanex HFA 2017-0 No Asmanex Mem oria 2-06 HFA, See l 23:00: Instructio Indra 00 ns, Route: INHALATION , BID, 05/01/17 17:00:00 IOS ARCHITECT, Duration: 30 day, Stop date: 05/31/17 9:00:00 IOS ARCHITECT Levofloxaci 2017-0 No Notes: Ikng kristina n 2-06 (Same l 23:00: as:Levaqui Indra 00 n) Albuterol 2017-0 No Notes: SEE Me moria 0.83 MG/ML 2-06 RT l Inhalant 22:46: DOCUMENTAT Her mcgrath Solution 00 ION (Same as: Proventil) BD Normal No Notes: Memori a Saline 05-01 (Same as: l Flush 21:49: BD [place] Posiflush) neostigmine No Route: IV, Memoria (ANES) 05-01 Drug form: l 16:14: INJ, ONCE, Stop date: 05/01/17 10:14:00 IOS ARCHITECT glycopyrrol 2017- No Route: IV, Memoria ate (ANES) 05-01 Drug form: l 16:14: INJ, ONCE, Stop date: 05/01/17 10:14:00 IOS ARCHITECT dexamethaso No Route: IV, Memoria ne (ANES) 05-01 Drug form: l 16:14: INJ, ONCE, Stop date: 05/01/17 10:14:00 IOS ARCHITECT famotidine No Route: IV, M emoria (ANES) 05-01 Drug form: l 16:14: INJ, ONCE, Stop date: 05/01/17 10:14:00 IOS ARCHITECT ondansetron No Route: IV, Memoria (ANES) 05-01 Drug form: l 16:14: INJ, ONCE, Stop date: 05/01/17 10:14:00 IOS ARCHITECT phenylephri 2017- No Route: IV, Memoria ne (ANES) 05-01 Drug form: l 16:11: INJ, ONCE, Stop date: 05/01/17 10:11:00 IOS ARCHITECT ePHEDrine 2017-0 No Route: IV, Me moria (ANES) 05-01 Drug form: l 16:06: INJ, ONCE, Stop date: 05/01/17 10:06:00 IOS ARCHITECT rocuronium 2017-0 No Route: IV, M emoria (ANES) 05-01 Drug form: l 16:01: INJ, ONCE, Stop date: 05/01/17 10:01:00 IOS ARCHITECT fentaNYL 2017-0 No Route: IV, Mem oria (ANES) 05-01 Drug form: l 16:01: INJ, ONCE, Stop date: 05/01/17 10:01:00 IOS ARCHITECT propofol 0 No Route: IV, Mem oria (ANES) 05-01 Drug form: l 16:01: INJ, ONCE, Indra Stop date: 05/01/17 10:01:00 IOS ARCHITECT lidocaine No Route: IV, Me moria (ANES) 05-01 Drug form: l 16:01: INJ, ONCE, Indra 00 Stop date: 05/01/17 10:01:00 IOS ARCHITECT succinylcho No Route: IV, Memoria line (ANES) 05-01 Drug form: l 16:01: INJ, ONCE, Indra 00 Stop date: 05/01/17 10:01:00 IOS ARCHITECT Oxycodone No Notes: Memori a Hydrochlori 05-01 (Same as: l de 5 MG 15:58: Roxicodone Herm greer Oral Tablet ) Morphine No Notes: Memoria 05-01 (Same l 15:58: as:MORPhin [place] e Sulfate) Ondansetron No Notes: King kristina 05-01 (Same as: l 15:53: Zofran) MEDICATION WASTE Product Size: 4 mg Product Wasted: ___ mg Lactated No 1,000 mL, King kristina Ringers IV 05-01 Rate: 100 l 1,000 mL 15:53: ml/hr, Infuse over: 10 hr, Route: IV, Dosing Weight 95.455 kg, Total Volume: 1,000, Start date: 05/01/17 9:53:00 IOS ARCHITECT, Duration: 30 day, Stop date: 05/31/17 9:52:00 IOS ARCHITECT, 2.18, m2 acetaminoph No Route: IV, Memoria en (ANES) 05-01 Drug form: l 10 mg 15:52: INJ, Start Oleksandr n 00 date: 05/01/17 9:52:00 IOS ARCHITECT, Stop date: 05/01/17 10:52:00 IOS ARCHITECT ceFAZolin No Route: IV, Me moria (ANES) 2000 05-01 Drug form: l mg 15:21: INJ, Start Indra 00 date: 05/01/17 9:21:00 IOS ARCHITECT, Stop date: 05/01/17 10:21:00 IOS ARCHITECT phenylephri No Route: IV, Memoria ne (ANES) 05-01 Drug form: l 100 14:55: INJ, Start [place] microgram 00 date: 05/01/17 8:55:00 IOS ARCHITECT, Stop date: 05/01/17 9:55:00 IOS ARCHITECT Lactated No Route: IV, Mem oria Ringers 2-06 Total l Injection 14:38: Volume: Salud nn IV (ANES) 00 1,000, 1000 mL Start date: 05/01/17 8:38:00 IOS ARCHITECT, Stop date: 05/01/17 9:38:00 IOS ARCHITECT ceFAZolin + No Notes: King kristina sterile 05-01 (Same As: l water 20 mL 06:00: Ancef, Herm greer 00 Kefzol) MEDICATION WASTE Product Size: 1000 mg Product Wasted: ___ mg neostigmine No Route: IV, Memoria (ANES) 04-13 Drug form: l 21:55: INJ, ONCE, Indra 00 Stop date: 04/13/17 15:55:00 IOS ARCHITECT ondansetron No Route: IV, Memoria (ANES) 04-13 Drug form: l 21:55: INJ, ONCE, [place] 00 Stop date: 04/13/17 15:55:00 IOS ARCHITECT phenylephri 0 No Route: IV, Memoria ne (ANES) 04-13 Drug form: l 21:55: INJ, ONCE, Indra 00 Stop date: 04/13/17 15:55:00 IOS ARCHITECT glycopyrrol 0 No Route: IV, Memoria ate (ANES) 04-13 Drug form: l 21:55: INJ, ONCE, [place] 00 Stop date: 04/13/17 15:55:00 IOS ARCHITECT metoprolol No Route: IV, M emoria (ANES) 04-13 Drug form: l 21:36: INJ, ONCE, Indra 00 Stop date: 04/13/17 15:36:00 IOS ARCHITECT ePHEDrine 0 No Route: IV, Me moria (ANES) 04-13 Drug form: l 21:36: INJ, ONCE, Indra 00 Stop date: 04/13/17 15:36:00 IOS ARCHITECT Acetaminoph No 650 mg = 2 Memoria en 325 MG -19 tab, PO, l Oral Tablet 21:27: Q4H, PRN He rmann [Tylenol] 00 Pain, X 10 day, # 120 tab, 0 Refill(s), other Ketorolac No 10 mg = 1 Mem oria Tromethamin -19 tab, PO, l e 10 MG 21:27: Q8H, X 3 Oleksandr n Oral Tablet 00 day, # 9 tab, 0 Refill(s), Pharmacy: [facility] rocuronium No Route: IV, M emoria (ANES) 04-13 Drug form: l 21:26: INJ, ONCE Stop date: 04/13/17 15:26:00 IOS ARCHITECT phenylephri No Route: IV, Memoria ne (ANES) 04-13 Drug form: l 21:26: INJ, ONCE Stop date: 04/13/17 15:26:00 IOS ARCHITECT ePHEDrine No Route: IV, Me moria (ANES) 04-13 Drug form: l 21:26: INJ, ONCE Stop date: 04/13/17 15:26:00 IOS ARCHITECT dexamethaso No Route: IV, Memoria ne (ANES) 04-13 Drug form: l 21:26: INJ, ONCE Stop date: 04/13/17 15:26:00 IOS ARCHITECT famotidine No Route: IV, M emoria (ANES) 04-13 Drug form: l 21:26: INJ, ONCE Stop date: 04/13/17 15:26:00 IOS ARCHITECT propofol 2017- No Route: IV, Mem oria (ANES) 04-13 Drug form: l 21:21: INJ, ONCE Stop date: 04/13/17 15:21:00 IOS ARCHITECT lidocaine 2017- No Route: IV, Me moria (ANES) 04-13 Drug form: l 21:21: INJ, ONCE, Stop date: 04/13/17 15:21:00 IOS ARCHITECT ceFAZolin 2018-0 No Route: IV, Me moria (ANES) 04-13 Drug form: l 21:16: INJ, ONCE, [place] 00 Stop date: 04/13/17 15:16:00 IOS ARCHITECT Ondansetron 2018-0 No 4 mg, Memor ia 04-13 Route: l 21:04: IVP, ONCE, Indra 00 Dosing Weight 93.182, kg, PRN Nausea & Vomiting, Start date: 04/13/17 15:04:00 IOS ARCHITECT Albuterol 2018-0 No 2.49 mg, [place] kristina 0.83 MG/ML 04-13 Route: l Inhalant 21:04: NEB, [place] Solution 00 Q20Min, Dosing Weight 93.182, kg, PRN Wheezing, Priority: STAT, Start date: 04/13/17 15:04:00 IOS ARCHITECT, Duration: 30 day, Stop date: 05/13/17 15:03:00 IOS ARCHITECT Metoprolol 2018-0 No 1 mg, Memori a 04-13 Route: l 21:04: IVP, Indra 00 Q5Min, Dosing Weight 93.182, kg, PRN Other -See Comment, Start date: 04/13/17 15:04:00 IOS ARCHITECT, Duration: 5 doses or times, Stop date: Limited # of times Morphine 2018-0 No 2 mg, Memoria 04-13 Route: l 21:04: IVP, Indra 00 Q5Min, Dosing Weight 93.182, kg, PRN Pain Score 4-6, Start date: 04/13/17 15:04:00 IOS ARCHITECT, Duration: 5 doses or times, Stop date: Limited # of times Acetaminoph 2018-0 No 1,000 mg, M emoria en 04-13 Route: PO, l 21:04: Drug form: [place] 00 TAB, ONCE, Dosing Weight 93.182, kg, PRN Pain Score 1-3, Start date: 04/13/17 15:04:00 IOS ARCHITECT Flumazenil 2018-0 No 0.2 mg, [place] kristina 04-13 Route: l 21:04: IVP, PRN, Indra 00 Dosing Weight 93.182, kg, PRN Benzodiaze pine Reversal, Initial dose, Start date: 04/13/17 15:04:00 IOS ARCHITECT, Duration: 30 day, Stop date: 05/13/17 15:03:00 IOS ARCHITECT Naloxone 2018-0 No 0.4 mg, Memori a 04-13 Route: l 21:04: IVP, [place] 00 Q2MIN, Dosing Weight 93.182, kg, PRN Narcotic Reversal, Start date: 04/13/17 15:04:00 IOS ARCHITECT, Duration: 8 doses or times, Stop date: Limited # of times Hydromorpho No 0.5 mg, Mem oria ne 04-13 Route: l 21:04: IVP, [place] 00 Q5Min, Dosing Weight 93.182, kg, PRN Pain Score 7-10, Start date: 04/13/17 15:04:00 IOS ARCHITECT, Duration: 4 doses or times, Stop date: Limited # of times Calcium No 1,000 mL, Memor ia Chloride 04-13 Rate: 125 l 0.0014 21:04: ml/hr, Indra MEQ/ML / 00 Infuse Potassium over: 8 Chloride hr, Route: 0.004 IV, Dosing MEQ/ML / Weight Sodium 93.182 kg, Chloride Total 0.103 Volume: MEQ/ML / 1,000, Sodium Start Lactate date: 0.028 04/13/17 MEQ/ML 15:04:00 Injectable IOS ARCHITECT, Solution Duration: 30 day, Stop date: 05/13/17 15:03:00 IOS ARCHITECT, 2.15, m2 fentaNYL No Route: IV, Mem oria (ANES) 04-13 Drug form: l 21:01: INJ, ONCE, [place] 00 Stop date: 04/13/17 15:01:00 IOS ARCHITECT midazolam No Route: IV, Me moria (ANES) 04-13 Drug form: l 21:01: SOLN, [place] 00 ONCE, Stop date: 04/13/17 15:01:00 IOS ARCHITECT acetaminoph No Route: IV, Memoria en (ANES) 04-13 Drug form: l 10 mg 20:45: INJ, Start Oleksandr n 00 date: 04/13/17 14:45:00 IOS ARCHITECT, Stop date: 04/13/17 15:45:00 IOS ARCHITECT Lactated No Route: IV, Mem oria Ringers 04-13 Total l Injection 20:17: Volume: Salud nn IV (ANES) 00 1,000, 1000 mL Start date: 04/13/17 14:17:00 IOS ARCHITECT, Stop date: 04/13/17 15:17:00 IOS ARCHITECT Ropivacaine No Notes: King kristina hydrochlori -19 (Same as: l de 7.5 18:07: Naropin) Isle MG/ML 00 Injectable Solution Acetaminoph 2016-03 Yes 1 - 2 tab, Memoria en 300 MG / 2-25 PO, Q4H, l Codeine 03:47: PRN Pain, Salud nn Phosphate 00 X 2 day, # 30 MG Oral 20 tab, 0 Tablet Refill(s) [Tylenol with Codeine #3] Propofol 2016-03 No 70 mg, Memoria 2-25 Route: IV, l 02:32: ONCE, Dosing Weight 95.5, kg, Start date: 03/18/17 20:32:00 IOS ARCHITECT, Stop date: 03/18/17 20:32:00 IOS ARCHITECT Propofol 2016-03 No 95.5 mg, Memor ia -25 Route: l 02:06: IVP, ONCE, Dosing Weight 95.5, kg, Priority: STAT, Start date: 03/18/17 20:06:00 IOS ARCHITECT, Stop date: 03/18/17 20:06:00 IOS ARCHITECT Zofran 2016-03 No Notes: Memoria 2-25 (Same as: l 01:02: Zofran) Indra 00 MEDICATION WASTE Product Size: 4 mg Product Wasted: ___ mg Morphine 2016-03 No Notes: Memoria 2-25 (Same l 01:01: as:MORPhin Indra 00 e Sulfate) oxyCODONE 5 2016-03 Yes 5 mg = 1 Me moria mg oral 1-04 tab, PO, l tablet 16:15: Q4H, PRN Indra 00 Pain Score 4-6, X 14 day, # 40 tab, 0 Refill(s), given to patient acetaminoph 2016-03 Yes 650 mg = 2 Memoria en 325 mg 1-04 tab, PO, l oral tablet 16:15: Q4H, X 14 H ermann 00 day, # 90 tab, 0 Refill(s), Pharmacy: [facility] 2016-03 No Notes: Memori a 25 mg oral 1-04 (Same as: l tablet, 14:00: Toprol XL) Herm greer extended 00 Do Not release Crush Protonix 2016-03 No Notes: Memoria 1-04 Tablet l 12:30: should not [place] 00 be chewed or crushed. (Same as: Protonix) levothyroxi 2016-03 No Notes: King kristina ne -04 Take 1 l 11:30: hour Isle 00 before or 2 hours after meal; Enteral feeds may interefere with the absorption of this medication .(Same as:Levothr oid, Synthroid) ketOROLAC 2016-03 No 4 days Memor ia 15 mg/mL 03-29 l injectable 06:58: MEDICATION H ermann solution 00 WASTE Product Size: 30 mg Product Wasted: 15 mg simvastatin 2016-03 No Notes: King kristina 03-29 (Same as: l 02:00: Zocor) Indra 00 melatonin 2016-03 No Notes: Memori a 03-29 (Same as: l 02:00: Melatonin) Indra 00 albuterol 2016-03 No Notes: SEE Me moria 03-28 RT l 23:12: DOCUMENTAT Indra 00 ION (Same as: Proventil) ceFAZolin 2016-03 No Notes: Memori a (SCIP) 03-28 Same as: l 23:00: Ancef [place] 00 Flomax 2016-03 No Notes: Memoria 03-28 (Same As: l 22:00: Flomax) [place] 00 "Do Not Crush" rasagiline 2016-03 No Notes: Memor ia 03-28 Same as l 22:00: Azilect Indra 00 Non Formulary Item docusate 2016-03 No Notes: Memoria sodium 100 03-28 (Same as: l mg oral 22:00: Colace) Indra capsule 00 (Do Not Crush) NexIUM 2016-03 No 40 mg, Memoria 03-28 Route: PO, l 22:00: Drug form: Indra 00 ECCAP, BID, Dosing Weight 96.619, kg, Start date: 01/26/17 17:00:00 CDT, Duration: 30 day, Stop date: 02/25/17 9:00:00 IOS ARCHITECT ProAir HFA 2016-03 No Route: PO, M emoria 90 mcg/inh 03-28 Drug Form: l inhalation 22:00: AERO/A, Herm greer aerosol 00 Dosing with Weight adapter 96.619, kg, BID, Start date: 01/26/17 17:00:00 CDT, Duration: 30 day, Stop date: 02/25/17 9:00:00 IOS ARCHITECT cloNIDine 2016-03 No Notes: Memori a 0.1 mg oral - (Same As: l tablet 21:07: Catapres) Oleksandr n 00 Vasotec 2016-03 No Notes: Memoria - (Same as: l 21:07: Vasotec-IV Indra 00 ) albuterol 2016-03 No Notes: SEE Me moria 0.083% -03 RT l inhalation 21:06: DOCUMENTAT H ermann solution 00 ION (Same as: Proventil) acetaminoph 2016-03 No Notes: Do M emoria en 03-28 not exceed l 18:44: 4 gm/day. Indra 00 (Same as: Tylenol) ropivacaine 2016-03 No 400 mL, 8 M emoria 400 mL 1-03 ml/hr, l 17:18: Route: Indra 00 NERVE BLOCK, Dosing Weight 96.619, kg, ONCE, Start date: 01/26/17 12:18:00 CDT, Stop date: 01/26/17 12:18:00 CDT ANES 2016-03 No 4 mg, Memoria ondansetron 03-28 Route: l 17:12: IVP, ONCE, Isle Dosing Weight 96.619, kg, PRN Nausea & Vomiting, Start date: 01/26/17 12:12:00 CDT ANES 2016-03 No 0.2 mg, Memoria flumazenil 03-28 Route: l 17:12: IVP, PRN, Isle Dosing Weight 96.619, kg, PRN Benzodiaze pine Reversal, Initial dose, Start date: 01/26/17 12:12:00 CDT, Duration: 30 day, Stop date: 02/25/17 11:11:00 IOS ARCHITECT ANES 2016-03 No 0.4 mg, Memoria naloxone 03-28 Route: l 17:12: IVP, Indra 00 Q2MIN, Dosing Weight 96.619, kg, PRN Narcotic Reversal, Start date: 01/26/17 12:12:00 CDT, Duration: 8 doses or times, Stop date: Limited # of times ANES 2016-03 No 2.49 mg, Memoria albuterol 03-28 Route: l 0.083% 17:12: NEB, [place] inhalation 00 Q20Min, solution Dosing Weight 96.619, kg, PRN Wheezing, Priority: STAT, Start date: 01/26/17 12:12:00 CDT, Duration: 30 day, Stop date: 02/25/17 11:11:00 IOS ARCHITECT albuterol 2016-03 No Route: IV, Me moria (ANES) 03-28 Drug form: l 17:03: AERO/A, Isle ONCE, Stop date: 01/26/17 12:03:00 CDT glycopyrrol 2016-03 No Route: IV, Memoria ate (ANES) 03-28 Drug form: l 16:50: INJ, ONCE, Stop date: 01/26/17 11:50:00 CDT neostigmine 2016-03 No Route: IV, Memoria (ANES) 03-28 Drug form: l 16:50: INJ, ONCE, Stop date: 01/26/17 11:50:00 CDT oxyCODONE 5 2016-03 No Notes: King kristina mg oral 03-28 (Same as: l tablet 16:32: Roxicodone ) ondansetron 2016-03 No Route: IV, Memoria (ANES) 03-28 Drug form: l 16:30: INJ, ONCE, Stop date: 01/26/17 11:30:00 CDT famotidine 2016-03 No Route: IV, M emoria (ANES) 03-28 Drug form: l 16:30: INJ, ONCE, Stop date: 01/26/17 11:30:00 CDT ondansetron 2016-03 No Notes: King kristina - (Same as: l 16:29: Zofran) MEDICATION WASTE Product Size: 4 mg Product Wasted: ___ mg Lactated 2016-03 No 1,000 mL, King kristina Ringers 03-28 Rate: 100 l 1,000 mL 16:29: ml/hr, Infuse over: 10 hr, Route: IV, Dosing Weight 96.619 kg, Total Volume: 1,000, Start date: 01/26/17 11:29:00 CDT, Duration: 30 day, Stop date: 02/25/17 11:28:00 IOS ARCHITECT lidocaine 2016-03 No Route: IV, Me moria (ANES) 03-28 Drug form: l 16:25: INJ, ONCE, Stop date: 01/26/17 11:25:00 CDT fentaNYL 2016-03 No Route: IV, Mem oria (ANES) 03-28 Drug form: l 16:25: INJ, ONCE, Stop date: 01/26/17 11:25:00 CDT rocuronium 2016-03 No Route: IV, M emoria (ANES) 03-28 Drug form: l 16:25: INJ, ONCE, Stop date: 01/26/17 11:25:00 CDT propofol 2016-03 No Route: IV, Mem oria (ANES) 03-28 Drug form: l 16:25: INJ, ONCE, Stop date: 01/26/17 11:25:00 CDT succinylcho 2016-03 No Route: IV, Memoria line (ANES) 03-28 Drug form: l 16:15: INJ, ONCE, Stop date: 01/26/17 11:15:00 CDT ropivacaine 2016-03 No Dosing: Mem oria 250 mL 1-03 8cc/hr, l 16:01: Route: NERVE BLOCK, Start date: 01/26/17 11:01:00 CDT 250 mL, Dosing Weight 96.619, kg, Duration: 30 day, Stop date: 02/25/17 10:00:00 IOS ARCHITECT ANES 2016-03 No 12.5 mg, Memoria meperidine 03-28 Route: l 15:59: IVP, Q30Min, Dosing Weight 96.619, kg, PRN Other -See Comment, For shivering, Start date: 01/26/17 10:59:00 CDT, Duration: 2 doses or times, Stop date: Limited # of times ANES 2016-03 No 4 mg, Memoria ondansetron 03-28 Route: l 15:59: IVP, ONCE, [place] 00 Dosing Weight 96.619, kg, PRN Nausea & Vomiting, Start date: 01/26/17 10:59:00 CDT ANES 2016-03 No 6.25 mg, Memoria promethazin 03-28 Route: l e 15:59: IVPB, Indra 00 ONCE, Dosing Weight 96.619, kg, PRN Nausea & Vomiting, Start date: 01/26/17 10:59:00 CDT ANES 2016-03 No 2.49 mg, Memoria albuterol 03-28 Route: l 0.083% 15:59: NEB, [place] inhalation 00 Q20Min, solution Dosing Weight 96.619, kg, PRN Wheezing, Priority: STAT, Start date: 01/26/17 10:59:00 CDT, Duration: 30 day, Stop date: 02/25/17 9:58:00 IOS ARCHITECT [facility] 2016-03 No 0.2 mg, Memoria flumazenil 03-28 Route: l 15:59: IVP, PRN, [place] 00 Dosing Weight 96.619, kg, PRN Benzodiaze pine Reversal, Initial dose, Start date: 01/26/17 10:59:00 CDT, Duration: 30 day, Stop date: 02/25/17 9:58:00 IOS ARCHITECT [facility] 2016-03 No 0.5 mg, Memoria HYDROmorpho 03-28 Route: l ne 15:59: IVP, Indra 00 Q5Min, Dosing Weight 96.619, kg, PRN Pain Score 7-10, Start date: 01/26/17 10:59:00 CDT, Duration: 4 doses or times, Stop date: Limited # of times [facility] 2016-03 No 10 mg, Memoria labetalol 03-28 Route: l 15:59: IVP, [place] 00 Q5Min, Dosing Weight 96.619, kg, PRN Elevated BP, Start date: 01/26/17 10:59:00 CDT, Duration: 5 doses or times, Stop date: Limited # of times [facility] 2016-03 No 0.4 mg, Memoria naloxone 03-28 Route: l 15:59: IVP, Indra 00 Q2MIN, Dosing Weight 96.619, kg, PRN Narcotic Reversal, Start date: 01/26/17 10:59:00 CDT, Duration: 8 doses or times, Stop date: Limited # of times acetaminoph 2016-03 No Route: IV, Memoria en (ANES) 03-28 Drug form: l (ANES) 15:40: INJ, Start Salud date: 01/26/17 10:40:00 CDT, Stop date: 01/26/17 11:40:00 CDT phenylephri 2016-03 No Route: IV, Memoria ne (ANES) 03-28 Drug form: l 15:32: INJ, ONCE, Indra Stop date: 01/26/17 10:32:00 CDT ePHEDrine 2016-03 No Route: IV, Me moria (ANES) 03-28 Drug form: l 15:32: INJ, ONCE, Isle 00 Stop date: 01/26/17 10:32:00 CDT ceFAZolin 2016-03 No Route: IV, Me moria (ANES) 03-28 Drug form: l (ANES) 15:00: INJ, Start Salud date: 01/26/17 10:00:00 CDT, Stop date: 01/26/17 11:00:00 CDT LR 1000 mL 2016-03 No Route: IV, M emoria INJ (ANES) 03-28 Total l 14:53: Volume: Isle 00 1,000, Start date: 01/26/17 9:53:00 CDT, Stop date: 01/26/17 10:53:00 CDT ceFAZolin 2 2016-03 No Notes: King kristina gm + -03 (Same As: l sterile 05:00: Ancef, Isle water 20 mL 00 Kefzol) MEDICATION WASTE Product Size: 1000 mg Product Wasted: ___ mg Asmanex HFA 2016-03 Yes See Memori a 0-30 Instructio l 17:59: ns, Indra 00 INHALATION BID, 0 Refill(s) ProAir HFA 2016-03 Yes 1 - 2 Memori a 0-30 puffs, PO, l 17:47: BID, # 1 Indra 00 ea, 0 Refill(s) metoprolol 2016-03 Yes 25 mg = 1 Me moria 25 mg oral 0-30 tab, PO, l tablet, 17:47: Daily, # Oleksandr n extended 00 90 tab, 0 release Refill(s) Melatonin 2016-03 Yes 10 mg = 1 Mem oria 10 mg oral 0-30 cap, PO, l capsule 17:47: Bedtime, 0 Herm greer 00 Refill(s) rasagiline 2016-03 Yes 1 mg = 1 Mem oria 1 mg oral 0-30 tab, PO, l tablet 17:46: QPM, # 30 Oleksandr n 00 tab, 6 Refill(s) CoQ10 2016-03 Yes 200 mg, Memoria 0-30 PO, QPM, 0 l 17:46: Refill(s) Isle 00 simvastatin 2016-03 Yes 40 mg = 1 M emoria 40 mg oral 0-30 tab, PO, l tablet 17:46: Bedtime, # Salud nn 00 90 tab, 1 Refill(s) Tylenol 8 Tylenol 8 2016-03 Yes HARINDER 1 Q4H TAKE 1 [facility] Hour 650 MG Hour 650 MG 0-16 ANABEL TABLET ity of Oral Tablet Oral Tablet 00:00: M.D. EVERY 4 [place] Extended Extended 00 HOURS Physic i Release Release ans acetaminoph 2016-03 Yes Q4H Take by Joel mathur en 0-16 mouth [facility] (TYLENOL) 00:00: every 4 st 650 MG 8 hr 00 (four) tablet hours. Vitamin D Vitamin D Yes AGNIESZKA TAKE 1 [facility] (Ergocalcif (Ergocalcif 1-19 DODWAD CAPSULE ity of franky) 1.25 franky) 1.25 00:00: M.D. WEEKLY. [place] MG (37441 MG (64682 00 Physi ci [place]) Oral UT) Oral ans Capsule Capsule ergocalcife Yes Take by Joel mathur rol 1-19 mouth. [facility] (VITAMIN 00:00: st D2) 50,000 00 unit capsule Esomeprazol 2015-03 Yes 40 mg = 1 M emoria e 40 MG 2-29 cap, PO, l Enteric 16:18: BID, # 1 Oleksandr n Coated 00 caplet, 0 Capsule Refill(s), [Nexium] other Trazodone 2015-03 Yes 100 mg = 1 Me moria Hydrochlori 2-29 tab, PO, l de 100 MG 16:18: Bedtime, Herm greer Oral Tablet 00 PRN Insomnia, # 30 tab, 1 Refill(s), Pharmacy: [facility] Ventolin 2015-03 Yes 2 puff, Memori a HFA 90 INHALER, l mcg/inh 16:18: Q6H, PRN Oleksandr n inhalation 00 wheezing, aerosol coughing, with or adapter shortness of breath, Dispense quantity sufficient for 100 uses., # 1 ea, 1 Refill(s), Pharmacy: [facility] multivitami 2015-03 Yes PO, Daily, Memoria n with - 0 l minerals 16:18: Refill(s) Herm greer 00 psyllium 2015-03 Yes 1 pkt, PO, Mem oria 3.4 g/5.8 g Daily, 0 l oral powder 16:18: Refill(s) H ermann 00 senna 82015-03 Yes 17.2 mg = Mem oria mg oral 2 tab, PO, l tablet 16:18: QNoon, 0 Isle 00 Refill(s) Thyroxine 2015-03 No Notes: Memori a -29 Take 1 l 12:30: hour Indra 00 before or 2 hours after meal; Enteral feeds may interefere with the absorption of this medication .(Same as:Levothr oid, Synthroid) Maalox 2015-03 No Notes: Memoria Advanced - (aluminum l Regular 15:19: hydroxide- Herm greer Strength 00 magnesium SUSP hyd-simeth icone 200-200-20 mg/5ml 30 ml ud IMTIAZ) Acetaminoph 2015-03 No Notes: Do M emoria en - not exceed l 00:00: 4 gm/day. Indra 00 (Same as: Tylenol) Tylenol 2015-03 No Notes: Do Memor ia 2- not exceed l 22:06: 4 gm/day. Indra 00 (Same as: Tylenol) senna 8.6 2015-03 No Notes: Memori a mg oral -25 (Same as: l tablet 18:00: Senokot) Isle 00 Metamucil 2015-03 No Notes: Memori a 2-25 (Same as: l 14:30: Konsyl) [place] 00 Mix in 8 oz liquid with meal. aspirin 81 2015-03 No Notes: Do Me moria mg tablet, 2-25 not crush l enteric 14:30: or chew. Oleksandr n coated 00 (Same As: Ecotrin) Ceftriaxone 2015-03 No Notes: King kristina 2-24 (Same As: l 18:00: Rocephin). Indra 00 Use with 100 mL NS and infuse over 30 min MEDICATION WASTE Product Size: 1000 mg Product Wasted: _0__ mg Enoxaparin 2015-03 No Notes: Memor ia 2-24 (Same as: l 18:00: Lovenox) Indra 00 Thiamine 2015-03 No Notes: Memoria 2-24 (Same As: l 14:30: Vitamin Indra 00 B1) Flomax 2015-03 No Notes: Memoria 2-24 (Same As: l 14:30: Flomax) Isle 00 "Do Not Crush" POLYETHYLEN 2015-03 No Notes: King kristina E GLYCOL 2-24 Dissolve l 3350 14:30: in 8 oz of Isle 00 water or juice. (Same as: Miralax) M.V.I. 2015-03 No 1 tab, Memoria Adult 2-24 Route: PO, l 14:30: Dosing Indra 00 Weight 87.136, kg, Daily, Start date: 03/18/16 8:30:00 IOS ARCHITECT, Duration: 30 day, Stop date: 04/16/16 8:30:00 IOS ARCHITECT Thyroxine 2015-03 No Notes: Memori a 2-24 Take 1 l 14:30: hour Indra 00 before or 2 hours after meal; Enteral feeds may interefere with the absorption of this medication .(Same as:Levothr oid, Synthroid) Folic Acid 2015-03 No Notes: Memor ia 2-24 (Same as: l 14:30: Folvite) Indra 00 Cymbalta 2015-03 No Notes: Memoria 2-24 (Same as: l 14:30: Cymbalta) Isle 00 (Do Not Crush) Vitamin B 2015-03 No Notes: Memori a 12 2-24 (Same As: l 14:30: Vitamin [place] 00 B-12) Aspirin 2015-03 No Notes: Memoria 2-24 Take with l 14:30: food. ascorbic 2015-03 No Notes: Memoria acid 2-24 (Same as: l 14:30: Vitamin C) multivitami 2015-03 No Notes: King kristina n with 2-24 (Same l minerals 14:30: as:Thera-M Her mcgrath 00 , Theragran- M) WASTE: F/P - Black; E - Municipal Trash Bin Give with food. Trazodone 2015-03 No Notes: Memori a Hydrochlori 2-24 (Same As: l de 100 MG 03:00: Desyrel) Herm greer Oral Tablet 00 pantoprazol 2015-03 No Notes: King kristina e 2-24 Tablet l 03:00: should not be chewed or crushed. (Same as: Protonix) Clotrimazol 2015-03 No Notes: For Memoria e 10 MG/ML 2-24 external l Topical 03:00: use only. Salud nn Cream 00 (Same As: Lotrimin AF, Mycelex) atorvastati 2015-03 No Notes: King kristina n 2-24 (Same as: l 03:00: Lipitor) Acetaminoph 2015-03 No Notes: Do M emoria en 2-24 not exceed l 01:09: 4 gm/day. (Same as: Tylenol) Levetiracet 2015-03 No 1,500 mg, M emoria am 2-24 Route: IV, l 01:09: PRN, Dosing Weight 87.136, kg, PRN Seizure, Start date: 03/17/16 19:09:00 IOS ARCHITECT, Duration: 30 day, Stop date: 04/16/16 19:08:00 IOS ARCHITECT Midazolam 2015-03 No 40 kg Memori a 2-24 l 01:09: Bisacodyl 2015-03 No Notes: Memori a 2-24 (Same As: l 01:09: Dulcolax, Bisco-Lax) Albuterol 2015-03 No Notes: SEE Me moria 0.83 MG/ML 2-24 RT l Inhalant 01:09: DOCUMENTAT Her mcgrath Solution 00 ION (Same as: Proventil) Trazodone 2015-03 Yes 100 mg = 1 Me moria Hydrochlori 2-23 tab, PO, l de 100 MG 22:07: Bedtime, 0 He rmann Oral Tablet 00 Refill(s) thiamine 2015-03 Yes 100 mg = 1 Mem oria 100 mg oral 2-23 tab, PO, l tablet 22:07: Daily, 0 Indra 00 Refill(s) POLYETHYLEN 2015-03 Yes PO, Daily, Memoria E GLYCOL 2-23 0 l 3350 22:07: Refill(s) Isle 00 pantoprazol 2015-03 Yes 40 mg = 1 M emoria e 40 mg 2-23 tab, PO, l oral 22:07: BID, 0 Isle enteric 00 Refill(s) coated tablet Menthol 2015-03 Yes 1 appl, Memoria 0.0044 2-23 TOP, PRN, l MG/MG / 22:07: PRN Diaper Herm greer Zinc Oxide 00 Rash, 0.2 MG/MG Topical Dosing, 0 Ointment Refill(s) levalbutero 2015-03 Yes 0.63 mg = M emoria l 0.63 mg/3 2-23 3 mL, NEB, l mL 22:07: PRN, PRN Indra inhalation 00 Respirator solution y Protocol, 0 Refill(s) Folic Acid 2015-03 Yes 1 mg = 1 Mem oria 1 MG Oral 2-23 tab, PO, l Tablet 22:07: Daily, 0 Isle 00 Refill(s) enoxaparin 2015-03 Yes 40 mg = King kristina 40 mg/0.4 2-23 0.4 mL, l mL 22:07: SUB-Q, Isle subcutaneou 00 [id number], s solution 0 Refill(s) cyanocobala 2015-03 Yes 1,000 Memor ia min 1000 2-23 microgram l mcg 22:07: = 1 tab, Indra sublingual 00 PO, Daily, tablet 0 Refill(s) 168 HR 2015-03 Yes 1 patch, Memoria Clonidine 2-23 TOP, Q7D, l 0.77757 22:07: 0 Indra MG/HR 00 Refill(s) Transdermal Patch [Catapres-T TS-2] Clotrimazol 2015-03 Yes 1 appl, Mem oria e 10 MG/ML 2-23 TOP, BID, l Topical 22:07: 0 Indra Cream 00 Refill(s) cefTRIAXone 2015-03 Yes 2 gm, Memor ia 2 g 2-23 IVPB, l injection 22:07: [id number], 0 He rmann 00 Refill(s) benzonatate 2015-03 Yes 200 mg = 2 Memoria 100 mg oral 2-23 cap, PO, l capsule 22:07: TID, 0 Indra 00 Refill(s) atorvastati 2015-03 Yes 80 mg = 2 M emoria n 40 mg 2-23 tab, PO, l oral tablet 22:07: Bedtime, 0 Indra 00 Refill(s) ascorbic 2015-03 Yes 500 mg = 1 Mem oria acid 500 mg 2-23 tab, CHEW, l oral tablet 22:07: Daily, 0 He rmann 00 Refill(s) Aspirin 2015-03 Yes 325 mg = 1 King kristina 2-23 tab, PO, l 22:07: Daily, 0 [place] 00 Refill(s) acetaminoph 2015-03 Yes 1,000 mg = Memoria en 500 mg 2-23 2 tab, PO, l oral tablet 22:07: Q6H, PRN He rmann 00 Pain Score 6-10, 0 Refill(s) Ativan 2015-03 No Notes: Memoria 2-23 (Same as: l 04:26: Ativan) [place] 00 Ceftriaxone 2015-03 No Notes: King kristina 2-21 (Same As: l 18:00: Rocephin). Indra 00 Use with 100 mL NS and infuse over 30 min MEDICATION WASTE Product Size: 2000 mg Product Wasted: ___ mg Miralax 2015-03 No Notes: Memoria 2-21 Dissolve l 17:00: in 8 oz of [place] 00 water or juice. (Same as: Miralax) glycerin 2015-03 No 1 supp, Memori a adult 2-21 Route: WA, l rectal 16:23: Drug Form: Slaud nn suppository 00 SUPP, Dosing Weight 88.636, kg, Daily, PRN Constipati on, Start date: 03/15/16 10:23:00 IOS ARCHITECT, Duration: 30 day, Stop date: 04/14/16 10:22:00 IOS ARCHITECT Vancomycin 2015-03 No 2001 mg: Me moria 2-20 infuse l 18:00: over 2.5 [place] 00 hours MEDICATION WASTE Product Size: 1000 mg Product Wasted: ___ mg Zosyn 2015-03 No Notes: Memoria 2-20 (Same as: l 17:00: Zosyn) Indra 00 Dosing based on Piperacill in component MEDICATION WASTE Product Size: 3375 mg Product Wasted: ___ mg Protonix 2015-03 No Notes: Memoria 2-19 Tablet l 23:00: should not Indra 00 be chewed or crushed. (Same as: Protonix) Tessalon 2015-03 No Notes: Memoria Perles 2-19 (Same As: l 19:00: Tessalon [place] 00 Perles) "Do Not Crush" Vitamin C 2015-03 No Notes: Memori a 2-19 (Same as: l 15:00: Vitamin C) Vitamin B12 2015-03 No 1,000 Memor ia 2-19 microgram, l 15:00: Route: PO, Indra 00 Drug form: TAB, Daily, Dosing Weight 88.636, kg, Start date: 03/13/16 9:00:00 IOS ARCHITECT, Duration: 30 day, Stop date: 04/11/16 9:00:00 IOS ARCHITECT Thiamine 2015-03 No 100 mg, Memori a 2-19 Route: PO, l 15:00: Drug form: [place] 00 TAB, Daily, Dosing Weight 88.636, kg, Start date: 03/13/16 9:00:00 IOS ARCHITECT, Duration: 30 day, Stop date: 04/11/16 9:00:00 IOS ARCHITECT Vitamin C 2015-03 No Notes: Memori a 2-18 (Same as: l 15:00: Vitamin C) Vitamin B12 2015-03 No Notes: King kristina 2-18 (Same As: l 15:00: Vitamin B-12) Thiamine 2015-03 No Notes: Memoria 2-18 (Same As: l 15:00: Vitamin B1) Folic Acid 2015-03 No Notes: Memor ia 2-18 (Same as: l 15:00: Folvite) TPN 2015-03 No Notes: Per Memoria solution, 2-18 hospital l adult 900 00:00: policy, Salud nn mL 00 bag must be changed every 24hr. TPN 2015-03 No Notes: Per Memoria solution, 2-17 hospital l adult 900 00:00: policy, Salud nn mL 00 bag must be changed every 24hr. Calmoseptin 2015-03 No Notes: King kristina e 2-16 (Same as: l 19:03: Calmosepti Indra 00 ne) Clotrimazol 2015-03 No Notes: For Memoria e 10 MG/ML 2-16 external l Topical 15:00: use only. Salud nn Cream 00 (Same As: Lotrimin AF, Mycelex) TPN 2015-03 No Notes: Per Memoria solution, 2-16 hospital l adult 900 00:00: policy, Salud nn mL 00 bag must be changed every 24hr. TPN 2015-03 No Notes: Per Memoria solution, 2-15 hospital l adult 900 00:00: policy, Saldu nn mL 00 bag must be changed every 24hr. potassium 2015-03 No Notes: Memori a chloride 2-14 (Same as: l 18:00: KCL) Indra 00 Infuse no faster than 10 mEq/hr if given peripheral ly. Isolyte S 2015-03 No Notes: Memori a PH-7.4 2-14 (Same as: l (Bolus) IV 17:13: Isolyte S He rmann 00 PH7.4) Ergocalcife 2015-03 No Notes: King kristina rol [id number] 2-14 (Same as: l UNT Oral 16:36: Vitamin D) Her mcgrath Capsule 00 "Do Not Crush" potassium 2015-03 No Notes: Memori a chloride 2-14 (Same as: l 00:09: KCL) [place] 00 Infuse no faster than 10 mEq/hr if given peripheral ly. TPN 2015-03 No Notes: Per Memoria solution, 2-14 hospital l adult 900 00:00: policy, Salud nn mL 00 bag must be changed every 24hr. Dextrose 2015-03 No 12.5 gm, Memor ia 50% Syringe 2-13 25 mL, l 22:09: Route: Indra 00 IVP, Drug Form: INJ, Dosing Weight 88.636, kg, PRN, PRN Blood Glucose Results, Start date: 03/07/16 16:09:00 IOS ARCHITECT, Duration: 30 day, Stop date: 04/06/16 16:08:00 IOS ARCHITECT Glucagon 2015-03 No 1 mg, Memoria 2- Route: IM, l 22:09: Drug form: Indra 00 PDR/INJ, PRN, Dosing Weight 88.636, kg, PRN Blood Glucose Results, Start date: 03/07/16 16:09:00 IOS ARCHITECT, Duration: 30 day, Stop date: 04/06/16 16:08:00 IOS ARCHITECT Insulin, 2015-03 No Notes: Memoria Aspart, - Roll in l Human 22:09: palms of [place] 00 hands gently; Do not shake vigorously . (Same as: NovoLOG) "single patient use only" WASTE: F/P - Black; E - Municipal Trash Bin Stable for 28 days at room temperatur e. Expires in days from ____Date potassium 2015-03 No Notes: Memori a chloride - (Same as: l 12:00: KCL) [place] 00 Infuse no faster than 10 mEq/hr if given peripheral ly. Isolyte S 2015-03 No Notes: Memori a PH-7.4 - (Same as: l (Bolus) IV 05:59: Isolyte S Hector rmann 00 PH7.4) TPN 2015-03 No Notes: Per Memoria solution, 05-08 [facility] l adult 900 00:00: policy, Salud nn mL 00 bag must be changed every 24hr. remove 2015-03 No Notes: Memoria patch 2-12 Remove old l 15:00: patch Indra 00 before applicatio n of new patch. Isolyte S 2015-03 No Notes: Memori a PH-7.4 -12 (Same as: l (Bolus) IV 11:40: Isolyte S He rmann 00 PH7.4) potassium 2015-03 No Notes: Memori a phosphate + 2-12 (Same as: l sodium 11:39: K Indra chloride 00 Phosphate. 0.9% INJ ) 1 mMol 250 mL phoshate has 1.47 mEq potassium Infuse over 4 hours atorvastati 2015-03 No Notes: King kristina n 2-12 (Same as: l 03:00: Lipitor) Indra 00 Isolyte S 2015-03 No Notes: Memori a PH-7.4 2-12 (Same as: l (Bolus) IV 00:09: Isolyte S He rmann 00 PH7.4) TPN 2015-03 No Notes: Per Memoria solution, 2-12 hospital l adult 900 00:00: policy, Salud nn mL 00 bag must be changed every 24hr. potassium 2015-03 No Notes: Memori a phosphate + 2-11 (Same as: l sodium 18:13: K [place] chloride 00 Phosphate. 0.9% INJ ) 1 mMol 250 mL phoshate has 1.47 mEq potassium Infuse over 4 hours potassium 2015-03 No Notes: Memori a chloride 2-11 (Same as: l 18:00: KCL) Indra 00 Infuse no faster than 10 mEq/hr if given peripheral ly. potassium 2015-03 No Notes: Memori a chloride 2-11 (Same as: l 16:00: KCL) Indra 00 Infuse no faster than 10 mEq/hr if given peripheral ly. potassium 2015-03 No Notes: Memori a phosphate + 2-11 (Same as: l sodium 15:32: K Indra chloride 00 Phosphate. 0.9% INJ ) 1 mMol 250 mL phoshate has 1.47 mEq potassium Infuse over 4 hours potassium 2015-03 No Notes: Memori a chloride 2-11 (Same as: l 15:15: KCL) [place] 00 Infuse no faster than 10 mEq/hr if given peripheral ly. Trazodone 2015-03 No Notes: Memori a Hydrochlori 2-11 (Same As: l de 100 MG 06:26: Desyrel) Herm greer Oral Tablet 00 Isolyte S 2015-03 No Notes: Memori a PH-7.4 2-11 (Same as: l (Bolus) IV 00:16: Isolyte S He rmann 00 PH 7.4) TPN 2015-03 No Notes: Per [facility]oria solution, 2-11 hospital l adult 900 00:00: policy, Salud nn mL 00 bag must be changed every 24hr. potassium 2015-03 No Notes: Memori a phosphate + 2-10 (Same as: l sodium 23:00: K Indra chloride 00 Phosphate. 0.9% INJ ) 1 mMol 250 mL phoshate has 1.47 mEq potassium Infuse over 4 hours potassium 2015-03 No 2 pkt, Memori a phosphate-s 2-10 Route: PO, l odium 17:29: Dosing Indra phosphate 00 Weight 250 mg-280 88.636, mg-160 mg kg, ONCE, oral powder Start for date: reconstitut 03/04/16 ion 11:29:00 IOS ARCHITECT, Stop date: 03/04/16 11:29:00 IOS ARCHITECT potassium 2015-03 No Notes: Memori a chloride 2-10 (Same as: l 17:00: KCL) Indra 00 Infuse no faster than 10 mEq/hr if given peripheral ly. potassium 2015-03 No Notes: Memori a phosphate + 2-10 (Same as: l sodium 16:56: K [place] chloride 00 Phosphate. 0.9% INJ ) 1 mMol 250 mL phoshate has 1.47 mEq potassium Infuse over 4 hours Isolyte S 2015-03 No Notes: Memori a PH-7.4 2-10 (Same as: l (Bolus) IV 16:31: Isolyte S He rmann 00 PH 7.4) TPN 2015-03 No Notes: Per [facility] solution, 2-10 hospital l adult 900 00:00: policy, Salud nn mL 00 bag must be changed every 24hr. potassium 2015-03 No 10 mEq, Memor ia chloride 09 Route: l 23:00: IVPB, Q1H, [place] 00 Dosing Weight 88.636, kg, Total Dose = 40 meq, Start date: 03/03/16 17:00:00 IOS ARCHITECT, Duration: 4 doses or times, Stop date: 03/03/16 20:00:00 IOS ARCHITECT, Periphe ral Line Dilaudid 2015-03 No Notes: Memoria 2-09 Same as l 20:44: Dilaudid Indra 00 Synthroid 2015-03 No Notes: Memori a 2-09 (Same as: l 16:30: Synthroid) Indra 00 potassium 2015-03 No Notes: Memori a phosphate-s 2-09 (Same as: l odium 16:30: Phos-NaK) Indra phosphate 00 Each 1.5 gm pkt has 250mg phosphorou s. Mix w/2.5oz water and stir. potassium 2015-03 No Notes: Memori a chloride 2-09 (Same as: l 15:00: KCL) Indra Infuse no faster than 10 mEq/hr if given peripheral ly. potassium 2015-03 No 10 mEq, Memor ia chloride 05-04 Route: l 14:00: IVPB, Q1H, [place] 00 Dosing Weight 88.636, kg, Total Dose = 40 meq, Start date: 03/03/16 8:00:00 IOS ARCHITECT, Duration: 4 doses or times, Stop date: 03/03/16 11:00:00 IOS ARCHITECT, Periphe ral Line Calmoseptin 2015-03 No Notes: King kristina e 05-04 (Same as: l 13:59: Calmosepti Indra 00 ne) Erythromyci 2015-03 No Notes: King kristina n 05-04 (Same as: l 00:00: erythromyc Indra 00 in lactobiona te) TPN 2015-03 No Notes: Per [facility] solution, 05-04 hospital l adult 900 00:00: policy, Salud nn mL 00 bag must be changed every 24hr. Saline 2015-03 No Notes: [facility]oria Flush 0.9% 2-08 (Same as: l 22:00: BD [place] 00 Posiflush) Lidocaine 2015-03 No Notes: Memori a Hydrochlori 2-08 (Same as: l de 10 MG/ML 19:00: Xylocaine) [place] Injectable 00 Solution Saline 2015-03 No Notes: [facility] Flush 0.9% 2-08 (Same as: l 18:01: BD [place] 00 Posiflush) Iohexol 2015-03 No Notes: [facility]oria 2-07 (Same l 22:28: as:Omnipaq [place] 00 ue 350). WASTE: F/P - Black; E - Municipal Trash Bin Isolyte S 2015-03 No Notes: [facility] a PH-7.4 2-07 (Same as: l (Bolus) IV 17:00: Isolyte S He rmann 00 PH 7.4) Isolyte S 2015-03 No Notes: Memori a (PH 7.4) 2-07 (Same as: l 1000 mL 16:47: Isolyte S Salud nn 1000 mL 00 PH 7.4) Isolyte S 2015-03 No Notes: [facility] a PH-7.4 2-07 (Same as: l (Bolus) IV 16:32: Isolyte S He rmann 00 PH 7.4) Insulin 2015-03 No 60 Memoria regular 2-07 units) l 01:10: WASTE: F/P [place] 00 - Black; E - Municipal Trash Bin Stable for 28 days at room temperatur e Expires in days from ____Date Dextrose 2015-03 No 12.5 gm, Memor ia 50% Syringe 2-07 25 mL, l 01:10: Route: [place] 00 IVP, Drug Form: INJ, Dosing Weight 88.636, kg, PRN, PRN Abnormal Lab Result, Start date: 02/29/16 19:10:00 IOS ARCHITECT, Duration: 30 day, Stop date: 03/30/16 19:09:00 IOS ARCHITECT, For FSBG 40 mg/dL - 60 mg/dL Reglan 2015-03 No Notes: [facility]oria 2-07 (Same as: l 00:00: Reglan) [place] 00 potassium 2015-03 No Notes: Memori a chloride 2-07 (Same as: l 00:00: KCL) Indra 00 Infuse no faster than 10 mEq/hr if given peripheral ly. potassium 2015-03 No Notes: Memori a chloride 2-06 (Same as: l 23:00: KCL) Indra 00 Infuse no faster than 10 mEq/hr if given peripheral ly. Morphine 2015-03 No Notes: [facility]oria 2-06 (Same l 22:51: as:MORPhin Indra 00 e Sulfate) Xopenex 2015-03 No Notes: SEE King kristina 2-06 RT l 20:34: DOCUMENTAT Indra 00 ION (Same as:Xopenex ) Non-Formul lety D5NS 1,000 2015-03 No 1,000 mL, Me moria mL 2-06 Rate: 50 l 20:34: ml/hr, [place] 00 Infuse over: 20 hr, Route: IV, Dosing Weight 88.636 kg, Total Volume: 1,000, Start date: 02/29/16 14:34:00 IOS ARCHITECT, Duration: 30 day, Stop date: 03/30/16 14:33:00 IOS ARCHITECT Vancomycin 2015-03 No 2001 mg: Me moria 2-06 infuse l 15:00: over 2.5 Indra 00 hours MEDICATION WASTE Product Size: 1000 mg Product Wasted: ___ mg Golytely 2015-03 No Notes: [facility]oria 2-06 (polyethyl l 03:00: vickey glycol electrolyt e solution 4 Liter bottle) (Same as: Golytely, Colyte) Bisacodyl 2015-03 No Notes: Memori a 2-05 (Same As: l 21:55: Dulcolax, [place] 00 Bisco-Lax) Reglan 2015-03 No Notes: [facility]oria 2-05 (Same as: l 18:00: Reglan) Indra 00 Lactulose 2015-03 No 1,000 ml, Mem oria 2 Route: WA, l 16:04: Drug Form: Indra 00 NICHOLAS, Dosing Weight 88.636, kg, ONCE, Start date: 02/28/16 10:04:00 IOS ARCHITECT, Duration: 1 doses or times, Stop date: 02/28/16 10:04:00 IOS ARCHITECT, 300 mL lactulose + 700 mL water 168 HR 2015-03 No Notes: Memoria Clonidine -05 Patch l 0.54193 15:00: delivers Oleksandr n MG/HR 00 0.2 mg/24 Transdermal hours; Patch Patch is [Catapres-T applied TS-2] weekly. "Remove old patch before applicatio n of new patch" (Same As: Catapres-T TS-2) Thiamine 2015-03 No Notes: [facility]oria 2-05 (Same As: l 15:00: Vitamin [place] 00 B1) Acetaminoph 2015-03 No Notes: Max Memoria en -05 acetaminop l 13:29: hen 4000 Indra 00 mg/day (4 gm/day). (Same as: Tylenol Extra Strength) mineral oil 2015-03 No Notes: King kristina 2-05 (Same l 03:00: as:Fleet [place] 00 Mineral Oil Enema) iodixanol 2015-03 No 92 mL, Memori a 04-29 Route: l 21:46: IVP, Drug [place] 00 Form: SOLN, Dosing Weight 88.636, kg, ONCALL, STAT, Start date: 02/27/16 15:46:00 IOS ARCHITECT, Duration: 1 doses or times, Dose = 2.2ml/kg, Max dose = 100ml -- "To be infused by Radiology Staff ONLY" Zosyn 2015-03 No Notes: [facility]oria 2-04 (Same as: l 19:00: Zosyn) Indra 00 Dosing based on Piperacill in component MEDICATION WASTE Product Size: 3375 mg Product Wasted: _0__ mg Vancomycin 2015-03 No 2000 mg: Me moria 2-04 infuse l 19:00: over 2.5 Indra 00 hours MEDICATION WASTE Product Size: 1000 mg Product Wasted: ___ mg Insulin, 2015-03 No Notes: [facility]oria Aspart, 2- Roll in l Human 18:47: palms of Indra 00 hands gently; Do not shake vigorously . (Same as: NovoLOG) "single patient use only" WASTE: F/P - Black; E - Municipal Trash Bin Stable for 28 days at room temperatur e. Expires in days from ____Date Dextrose 2015-03 No 25 gm, 50 King kristina 50% Syringe 2-04 mL, Route: l 18:47: IVP, Drug Form: INJ, Dosing Weight 88.636, kg, PRN, PRN Blood Glucose Results, Start date: 02/27/16 12:47:00 IOS ARCHITECT, Duration: 30 day, Stop date: 03/28/16 12:46:00 IOS ARCHITECT Glucagon 2015-03 No 1 mg, Memoria 2-04 Route: IM, l 18:47: Drug form: 00 PDR/INJ, PRN, Dosing Weight 88.636, kg, PRN Blood Glucose Results, Start date: 02/27/16 12:47:00 IOS ARCHITECT, Duration: 30 day, Stop date: 03/28/16 12:46:00 IOS ARCHITECT D5NS 1,000 2015-03 No 1,000 mL, Me moria mL 2-04 Rate: 100 l 18:29: ml/hr, Indra 00 Infuse over: 10 hr, Route: IV, Dosing Weight 88.636 kg, Total Volume: 1,000, Start date: 02/27/16 12:29:00 IOS ARCHITECT, Duration: 30 day, Stop date: 01/03/17 12:28:00 IOS ARCHITECT Sodium 2015-03 No 1,000 mL, Memori a Chloride 2-04 1,000 l 0.154 16:43: ml/hr, [place] MEQ/ML 00 Infuse Injectable Over: 1 Solution hr, Route: IV, 1,000, Drug form: INJ, ONCE, Priority: STAT, Dosing Weight 88.636 kg, Start date: 02/27/16 10:43:00 IOS ARCHITECT, Duration: 1 doses or times, Stop date: 02/27/16 10:43:00 IOS ARCHITECT Protonix 2015-03 No 40 mg, Memoria 2-04 Route: l 15:00: IVP, Drug [place] 00 form: INJ, BID, Dosing Weight 88.636, kg, Start date: 02/27/16 9:00:00 IOS ARCHITECT, Duration: 30 day, Stop date: 03/27/16 17:00:00 IOS ARCHITECT Sodium 2015-03 No 1,000 mL, Memori a Chloride 2-04 1,000 l 0.154 14:57: ml/hr, [place] MEQ/ML 00 Infuse Injectable Over: 1 Solution hr, Route: IV, 1,000, Drug form: INJ, ONCE, Priority: STAT, Dosing Weight 88.636 kg, Start date: 02/27/16 8:57:00 IOS ARCHITECT, Duration: 1 doses or times, Stop date: 02/27/16 8:57:00 IOS ARCHITECT Erythromyci 2015-03 No Notes: King kristina n 2-04 (Same as: l 12:00: erythromyc [place] 00 in lactobiona te) Metoprolol 2015-03 No Notes: Memor ia 2-04 (Same as: l 11:36: Lopressor) [place] 00 Push over 2 minutes Lactulose 2015-03 No Notes: Memori a 2-04 (Same l 11:28: as:Chronul Indra 00 ac) magnesium 2015-03 No Notes: Memori a citrate 2-04 (Same as: l 58.2 MG/ML 02:02: Citrate of H ermann Oral 00 Magnesia) Solution Concentrat ion: 1.745 gm / 30 mL Simethicone 2015-03 No Notes: King kristina 2-04 (Same as: l 00:00: Mylicon) Indra 00 gabapentin 2015-03 No Notes: Memor ia 100 MG Oral 2-03 (Same as: l Capsule 20:00: Neurontin) magnesium 2015-03 No Notes: Memori a citrate 2- (Same as: l 58.2 MG/ML 19:01: Citrate of H ermann Oral Magnesia) Solution Concentrat ion: 1.745 gm / 30 mL Simethicone 2015-03 No Notes: King kristina 2- (Same as: l 02:01: Mylicon, Phazyme, Genasyme) molasses 2015-03 No Notes: Memoria 2-02 (Same l 02:01: as:Molasse s) Bisacodyl 2015-03 No Notes: Memori a 2- (Same As: l 17:33: Dulcolax, Bisco-Lax) Aspirin 2015-03 No Notes: Memoria 2-01 Take with l 15:00: food. Miralax 2015-03 No Notes: Memoria 2- Dissolve l 15:00: in 8 oz of water or juice. (Same as: Miralax) Lovenox 2015-03 No Notes: Memoria 2- (Same as: l 03:00: Lovenox) Lipitor 2015-03 No Notes: Memoria 2- (Same as: l 00:30: Lipitor) Aspirin 325 2015-03 No Notes: King kristina MG Oral 2- Take with l Tablet 00:13: food. aspirin 81 2015-03 No Notes: Memor ia mg tablet, 2- Take with l chewable 00:00: food. iodixanol 2015-03 No 100 mL, Memor ia 04-24 Route: l 22:52: IVP, Drug Form: SOLN, Dosing Weight 88.636, kg, ONCALL, STAT, Start date: 02/23/16 16:52:00 IOS ARCHITECT, Duration: 1 doses or times, Dose = 2.2ml/kg, Max dose = 150ml -- "To be infused by Radiology Staff ONLY" Iohexol 2015-03 No Notes: Memoria 04-24 (Same l 15:15: as:Omnipaq ue 350). WASTE: F/P - Black; E - Municipal Trash Bin Vitamin D2 2015-03 No Notes: Memor ia - (Same as: l 19:30: Vitamin D) [place] 00 "Do Not Crush" Vitamin D3 2015-03 No 50,000 Memor ia - IntlUnit, l 17:32: Route: PO, Indra 00 ONCE, Dosing Weight 88.636, kg, Start date: 02/22/16 11:32:00 IOS ARCHITECT, Stop date: 02/22/16 11:32:00 IOS ARCHITECT Docusate 2015-03 No Notes: Memoria Sodium 100 04-23 (Same as: l MG Oral 15:00: Colace) Indra Capsule 00 [Colace] Flomax 2015-03 No Notes: Memoria 04-23 (Same As: l 15:00: Flomax) [place] 00 "Do Not Crush" gabapentin 2015-03 No Notes: Memor ia 300 MG Oral 04-23 (Same as: l Capsule 15:00: Neurontin) Herm greer 00 multivitami 2015-03 No Notes: King kristina n 04-23 (Same l 15:00: as:Thera) [place] 00 WASTE: F/P - Black; E - Municipal Trash Bin Take with food. Thyroxine 2015-03 No Notes: Memori a 04-23 Take 1 l 15:00: hour [place] 00 before or 2 hours after meal; Enteral feeds may interefere with the absorption of this medication .(Same as:Levothr oid, Synthroid) Nexium 2015-03 No 40 mg, Memoria 04-23 Route: PO, l 15:00: Drug form: Indra 00 ECCAP, Daily, Dosing Weight 88.636, kg, Start date: 02/22/16 9:00:00 IOS ARCHITECT, Duration: 30 day, Stop date: 03/22/16 9:00:00 IOS ARCHITECT Cymbalta 2015-03 No Notes: Memoria 04-23 (Same as: l 15:00: Cymbalta) [place] 00 (Do Not Crush) Vitamin D3 2015-03 No 50,000 Memor ia -29 IntlUnit, l 13:42: Route: PO, [place] 00 ONCE, Dosing Weight 88.636, kg, Start date: 02/22/16 7:42:00 IOS ARCHITECT, Stop date: 02/22/16 7:42:00 IOS ARCHITECT Morphine 2015-03 No Notes: Memoria 04-23 (Same l 13:34: as:MORPhin Indra 00 e Sulfate) Acetaminoph 2015-03 No Notes: Do M emoria en 300 MG / 04-23 not exceed l Codeine 13:33: 4gm/day of Herm greer Phosphate 00 acetaminop 30 MG Oral hen. Tablet (Same as: [Tylenol Tylenol with with Codeine #3] Codeine # 3) Protonix 2015-03 No Notes: Memoria 04-23 Tablet l 13:30: should not [place] 00 be chewed or crushed. (Same as: Protonix) gabapentin 2015-03 No Notes: Memor ia 300 MG Oral 04-23 (Same as: l Capsule 06:00: Neurontin) Herm greer Vitamin D3 2015-03 No Vitamin D3 M emoria 50,000 04-23 50,000 l IntlUnit 05:10: IntlUnit, Herm greer 00 1 tab, Drug form: MISC, Route: PO, ONCE, 02/21/16 23:10:00 IOS ARCHITECT, Stop date: 02/21/16 23:10:00 IOS ARCHITECT Simvastatin 2015-03 No Notes: King kristina - (Same as: l 03:00: Zocor) [place] albumin 2015-03 No 500 mL, Memoria human 5% 04-23 Route: IV, l intravenous 02:46: Dosing Herm greer solution Weight 88.636, kg, ONCE, Start date: 02/21/16 20:46:00 IOS ARCHITECT, Stop date: 02/21/16 20:46:00 IOS ARCHITECT Flumazenil 2015-03 No Notes: Memor ia 04-23 (Same as: l 02:05: Romazicon) [place] Hydromorpho 2015-03 No Notes: King kristina ne 04-23 Same as l 02:05: Dilaudid Indra Labetalol 2015-03 No 10 mg, 2 King kristina -29 mL, Route: l 02:05: IVP, Drug Indra form: INJ, Q5Min, Dosing Weight 88.636, kg, PRN Elevated BP, Start date: 02/21/16 20:05:00 IOS ARCHITECT, Duration: 5 doses or times, Stop date: Limited # of times Naloxone 2015-03 No Notes: Memoria 04-23 Same as l 02:05: Narcan [place] 00 Ondansetron 2015-03 No Notes: King kristina 04-23 (Same as: l 02:05: Zofran) Indra 00 MEDICATION WASTE Product Size: 4 mg Product Wasted: ___ mg Ancef 2015-03 No Notes: Memoria 04-23 Same as: l 02:00: Ancef [place] tramadol 2015-03 No Notes: Not Mem oria hydrochlori 04-23 to exceed l de 50 MG 02:00: 400mg/day. Her mcgrath Oral Tablet 00 (Same As: Ultram) Morphine 2015-03 No Notes: Memoria 04-23 Dose: l 01:30: [place] 00 Delay: Basal rate: 4hr limit: (Same as:Minoo ram) Vitamin D3 2015-03 No 50,000 Memor ia 04-23 IntlUnit, l 01:26: Route: PO, [place] 00 ONCE, Dosing Weight 88.636, kg, Start date: 02/21/16 19:26:00 IOS ARCHITECT, Stop date: 02/21/16 19:26:00 IOS ARCHITECT Naloxone 2015-03 No Notes: Memoria 04-23 Same as l 01:22: Narcan Indra 00 Isolyte S 2015-03 No Notes: Memori a (PH 7.4) 04-23 (Same as: l 1000 mL 01:19: Isolyte S Salud nn 1,000 mL 00 PH 7.4) Oxycodone 2015-03 No Notes: Memori a 04-22 (Same as: l 12:48: Roxicodone [place] 00 ) Naloxone 2015-03 No Notes: Memoria 04-22 Same as l 12:48: Narcan [place] 00 Flumazenil 2015-03 No Notes: Memor ia 04-22 (Same as: l 12:48: Romazicon) [place] 00 Ondansetron 2015-03 No Notes: King kristina 04-22 (Same as: l 12:48: Zofran) [place] MEDICATION WASTE Product Size: 4 mg Product Wasted: ___ mg Hydromorpho 2015-03 No Notes: King kristina ne 04-22 Same as l 12:48: Dilaudid [place] 00 Labetalol 2015-03 No 10 mg, 2 King kristina 1-28 mL, Route: l 12:48: IVP, Drug form: INJ, Q5Min, Dosing Weight 88.636, kg, PRN Elevated BP, Start date: 02/21/16 6:48:00 IOS ARCHITECT, Duration: 5 doses or times, Stop date: Limited # of times Hydralazine 2015-03 No Notes: King kristina 04-22 (Same as: l 12:48: Apresoline ) Push over 5 minutes ceFAZolin 2015-03 No Notes: Memori a 04-22 Same as: l 09:00: Ancef Thyroxine 2015-03 Yes 50 Memoria 1-15 microgram, l 17:19: PO, Daily, 0 Refill(s) Esomeprazol 2015-03 No 40 mg = 1 M emoria e 40 MG 1-15 cap, PO, l Enteric 17:19: Daily, # Oleksandr n Coated 00 30 cap, 0 Capsule Refill(s) [Nexium] simvastatin 2015-03 No 40 mg = 1 M emoria 40 mg oral 1-15 tab, PO, l tablet 17:19: Bedtime, # Salud nn 00 90 tab, 1 Refill(s) Flomax 2015-03 Yes 0.4 mg, Memoria 1-15 PO, Daily, l 17:19: 0 Refill(s) multivitami 2015-03 Yes PO, Daily, Memoria n 1-15 0 l 17:19: Refill(s) Nexium 2015-03 No PO, Daily, Memor ia 1-15 0 l 17:19: Refill(s) duloxetine 2015-03 Yes 60 mg = 1 Me moria 60 MG 1-15 cap, PO, l Enteric 17:19: Daily, # Oleksandr n Coated 00 30 cap, 0 Capsule Refill(s) [Cymbalta] Flomax 0.4 Flomax 0.4 Yes Uni vers MG Oral MG Oral ity of Capsule Capsule [place] [facility] Simvastatin Simvastatin Yes U nivers 10 MG Oral 10 MG Oral ity of Tablet Tablet [place] [facility] Cymbalta 30 Cymbalta 30 Yes U nivers MG Oral MG Oral ity of Capsule Capsule [place] Delayed Delayed Physici Release Release ans Particles Particles Multi Multi Yes Univers Complete Complete ity of CAPS CAPS [place] [facility] Rasagiline Rasagiline Yes Uni vers Mesylate 1 Mesylate 1 ity of MG Oral MG Oral [place] Tablet Tablet Physici ans Synthroid Synthroid Yes Unive rs 50 MCG Oral 50 MCG Oral i ty of Tablet Tablet [place] [facility] Metoprolol Metoprolol Yes Uni vers Tartrate 25 Tartrate 25 i ty of MG Oral MG Oral [place] Tablet Tablet Physici ans Immunizations Ordered Immunization Filled Immunization Date Status Commen ts Source Name Name Influenza, high dose 2017-12-03 Completed [facility] ersity of seasonal, 00:00:00 [place] [facility] preservative-free Prevnar 13 2017-03-01 Completed [facility] 14:06:00 [place] [facility] Suspension Vital Signs Vital Name Observation Time Observation Value Comments Source Systolic blood 2020-02-05 131 mm[Hg] Location: [facility] 13:36:00 Position: [place] [facility] Sitting Diastolic blood 2020-02-05 74 mm[Hg] Location: [facility] 13:36:00 Position: [place] [facility] S[facility] Body height 2020-02-05 71 [in_us] [facility] 13:36:00 [place] [facility] Weight 2020-02-05 210.375 [lb_av] [facility] 13:36:00 [place] [facility] Body mass index 2020-02-05 29.34 kg/m2 [facility] f (BMI) [Ratio] 13:36:00 [place] [facility] Body temperature 2020-02-05 99.2 [degF] Method: [facility] 13:36:00 Temporal [place] [facility] Heart Rate 2020-02-05 93 /min Location: R [facility] 13:36:00 Brachial [place] [facility] Artery; Quality: Normal Respiratory rate 2020-02-05 22 /min Quality: Normal [facility] 13:36:00 [place] [facility] O2 SAT 2020-02-05 91 % Source: RA [facility] 13:36:00 [place] [facility] Systolic blood 2019-11-04 99 mm[Hg] Location: [facility] pressure 10:52:00 Position: [place] [facility] Sitting Diastolic blood 2019-11-04 63 mm[Hg] Location: [facility] 10:52:00 Position: [place] [facility] Sitting Weight 2019-11-04 200.25 [lb_av] University 10:52:00 [place] [facility] Body mass index 2019-11-04 27.93 kg/m2 [facility] o f (BMI) [Ratio] 10:52:00 [place] [facility] Body temperature 2019-11-04 98.8 [degF] Method: [facility] 10:52:00 Temporal [place] [facility] Heart Rate 2019-11-04 83 /min Location: R [facility] 10:52:00 Brachial [place] [facility] Artery; Respiratory rate 2019-11-04 16 /min Quality: Normal [facility] 10:52:00 [place] [facility] O2 SAT 2019-11-04 96 % [facility] 10:52:00 [place] [facility] Systolic blood 2019-09-18 137 mm[Hg] [place] pressure 08:26:00 [facility] Diastolic blood 2019-09-18 91 mm[Hg] [place] pressure 08:26:00 [facility] Heart rate 2019-09-18 72 /min [place] 08:26:00 [facility] Body temperature 2019-09-18 36.33 Sybil [place] 08:26:00 [facility] Respiratory rate 2019-09-18 20 /min [place] 08:26:00 [facility] Body weight 2019-09-18 93.532 kg [place] 08:26:00 [facility] BMI 2019-09-18 31.35 kg/m2 [place] 08:26:00 [facility] Oxygen saturation 2019-09-18 96 /min [place] in Arterial blood 08:26:00 [facility] by Pulse oximetry Body height 2019-08-28 172.7 cm [place] 09:40:00 [facility] Height 2019-04-08 172.72 cm Justin Leggett n 19:20:00 Weight 2019-04-08 [facility] Oleksandr n 19:20:00 BMI Calculated 2019-04-08 [facility] 19:20:00 Temperature Oral 2019-03-09 97.8 F [facility] rmann (F) 21:26:00 Heart Rate 2019-03-09 [facility] Oleksandr n 21:26:00 Respitory Rate 2019-03-09 [facility] 21:26:00 Systolic (mm Hg) 2019-03-09 [facility] He rmann 21:26:00 Diastolic (mm Hg) 2019-03-09 [facility] H ermann 21:26:00 Temperature Oral 2019-03-09 97.8 F [facility] rmann (F) 16:50:00 Heart Rate 2019-03-09 [facility] Oleksandr n 16:50:00 Respitory Rate 2019-03-09 [facility] 16:50:00 Systolic (mm Hg) 2019-03-09 [facility] 16:50:00 Diastolic (mm Hg) 2019-03-09 [facility] 16:50:00 Temperature Oral 2019-03-09 97.8 F [facility] (F) 13:47:00 Heart Rate 2019-03-09 [facility] Oleksandr n 13:47:00 Respitory Rate 2019-03-09 [facility] 13:47:00 Systolic (mm Hg) 2019-03-09 [facility] 13:47:00 Diastolic (mm Hg) 2019-03-09 [facility] 13:47:00 Height 2019-03-07 172.72 cm [facility] Oleksandr n 22:05:00 Weight 2019-03-07 [facility] Oleksandr n 22:05:00 BMI Calculated 2019-03-07 [facility] 22:05:00 Heart Rate 2018-05-18 [facility] Oleksandr n 14:00:00 Respitory Rate 2018-05-18 [facility] 14:00:00 Systolic (mm Hg) 2018-05-18 [facility] 14:00:00 Diastolic (mm Hg) 2018-05-18 [facility] 14:00:00 Temperature Oral 2018-05-18 98 F [facility] rmann (F) 14:00:00 Temperature Oral 2018-05-18 98.2 F [facility] rmann (F) 07:12:00 Heart Rate 2018-05-18 [facility] Oleksandr n 07:12:00 Respitory Rate 2018-05-18 [facility] 07:12:00 Systolic (mm Hg) 2018-05-18 [facility] 07:12:00 Diastolic (mm Hg) 2018-05-18 [facility] 07:12:00 Temperature Oral 2018-05-18 97.5 F [facility] rmann (F) 02:00:00 Systolic (mm Hg) 2018-05-18 [facility] 02:00:00 Diastolic (mm Hg) 2018-05-18 [facility] 02:00:00 Respitory Rate 2018-05-18 [facility] 02:00:00 Heart Rate 2018-05-18 [facility] Oleksandr n 02:00:00 Weight 2018-05-17 [facility] Oleksandr n 20:29:00 Height 2018-05-17 175.26 cm [facility] Oleksandr n 20:29:00 BMI Calculated 2018-05-17 [facility] 20:29:00 Height 2018-05-16 175.26 cm Justin Leggett n 22:48:00 Weight 2018-05-16 [facility] Oleksandr n 22:48:00 BMI Calculated 2018-05-16 [facility] 22:48:00 BP Systolic 2018-05-08 144 mm[Hg] Location: [facility] 14:15:00 Position: [place] [facility] BP Diastolic 2018-05-08 101 mm[Hg] Location: [facility] 14:15:00 Position: [place] [facility] Height 2018-05-08 71 [in_us] [facility] 14:15:00 [place] [facility] Weight 2018-05-08 212.375 [lb_av] [facility] 14:15:00 [place] [facility] Body Mass Index 2018-05-08 29.62 kg/m2 [facility] Calculated 14:15:00 [place] [facility] Temperature 2018-05-08 97.9 [degF] Method: Oral [facility] 14:15:00 [place] [facility] Heart Rate 2018-05-08 67 /min Quality: Normal [facility] 14:15:00 [place] [facility] Respiration Rate 2018-05-08 19 /min [facility]: [facility] 14:15:00 [place] [facility] O2 SAT 2018-05-08 95 % Source: [facility] of 14:15:00 [place] [facility] BP Systolic 2018-05-07 140 mm[Hg] Location: [facility] of 09:29:00 Position: [place] [facility] Sitting BP Diastolic 2018-05-07 83 mm[Hg] Location: [facility] of 09:29:00 Position: [place] [facility] Height 2018-05-07 68 [in_us] [facility] 09:29:00 [place] [facility] Weight 2018-05-07 212 [lb_av] [facility] 09:29:00 [place] [facility] Body Mass Index 2018-05-07 32.23 kg/m2 [facility] Calculated 09:29:00 [place] [facility] Temperature 2018-05-07 96.9 [degF] Method: Oral [facility] 09:29:00 [place] [facility] Heart Rate 2018-05-07 69 /min [facility] 09:29:00 [place] [facility] Systolic (mm Hg) 2018-05-06 [facility] 20:45:00 Diastolic (mm Hg) 2018-05-06 [facility] And[facility] ermann 20:45:00 Respitory Rate 2018-05-06 [facility] 20:45:00 Systolic (mm Hg) 2018-05-06 [facility] 20:30:00 Diastolic (mm Hg) 2018-05-06 [facility] 20:30:00 Respitory Rate 2018-05-06 [facility] 20:30:00 Systolic (mm Hg) 2018-05-06 [facility] 20:16:00 Diastolic (mm Hg) 2018-05-06 [facility] 20:16:00 Respitory Rate 2018-05-06 [facility] 20:16:00 Weight 2018-05-06 Justin Oleksandr n 16:17:00 BMI Calculated 2018-05-06 [facility] 16:17:00 Height 2018-05-06 172.72 cm Justin Leggett n 16:17:00 BP Systolic 2018-04-24 138 mm[Hg] Location: [facility] 11:40:00 Position: [place] [facility] BP Diastolic 2018-04-24 89 mm[Hg] Location: [facility] 11:40:00 Position: [place] [facility] Height 2018-04-24 68 [in_us] [facility] 11:40:00 [place] [facility] Weight 2018-04-24 212.5 [lb_av] [facility] 11:40:00 [place] [facility] Body Mass Index 2018-04-24 32.31 kg/m2 [facility] Calculated 11:40:00 [place] [facility] Temperature 2018-04-24 98 [degF] Method: Oral [facility] 11:40:00 [place] [facility] Heart Rate 2018-04-24 97 /min Quality: Normal [facility] 11:40:00 [place] [facility] Respiration Rate 2018-04-24 18 /min Quality: Normal [facility] 11:40:00 [place] [facility] O2 SAT 2018-04-24 97 % Source: [place] [facility] 11:40:00 [place] [facility] BP Systolic 2017-12-12 144 mm[Hg] [facility] 13:43:[facility] Position: [place] [facility] BP Diastolic 2017-12-12 96 mm[Hg] [facility] 13:43:00 Position: [place] [facility] Height 2017-12-12 68 [in_us] [place] [facility] 13:43:00 [place] [facility] Weight 2017-12-12 206.5 [lb_av] [facility] 13:43:00 [place] [facility] Body Mass Index 2017-12-12 31.4 kg/m2 [facility] Calculated 13:43:00 [place] [facility] Temperature 2017-12-12 98.5 [degF] Method: [facility] 13:43:00 Tympanic [place] [facility] Heart Rate 2017-12-12 97 /min Location: L [facility] 13:43:00 Brachial [place] [facility] Ar[place]; Quality: Normal Respiration Rate 2017-12-12 16 /min Quality: Normal [facility] 13:43:00 [place] [facility] O2 SAT 2017-12-12 96 % Source: [facility] 13:43:00 [place] [facility] BP Systolic 2017-12-03 151 mm[Hg] Location: JUAN MIGUEL; [facility] 13:16:00 Position: [place] [facility] BP Diastolic 2017-12-03 83 mm[Hg] Location: JUAN MIGUEL; [facility] :16:00 Position: [place] [facility] Weight 2017-12-03 206.125 [lb_av] [place] [facility] 13:16:00 [place] [facility] Body Mass Index 2017-12-03 29.58 kg/m2 University o Calculated 13:16:00 [place] [facility] Temperature 2017-12-03 97.8 [degF] Method: [place] [facility] :16:00 Tympanic [place] [facility] Heart Rate 2017-12-03 71 /min Location: Emilie [facility] 13:16:00 Brachial [place] [facility] Ar[facility]; Respiration Rate 2017-12-03 14 /min Quality: Normal [facility] 13:16:00 [place] [facility] O2 SAT 2017-12-03 96 % Source: [facility] :16:00 [place] [facility] BP Systolic 2017-11-05 132 mm[Hg] Location: JUAN MIGUEL; [facility] 13:41:00 Position: [place] [facility] BP Diastolic 2017-11-05 90 mm[Hg] Location: JUAN MIGUEL; [facility] 13:41:00 Position: [place] [facility] Height 2017-11-05 70 [in_us] [facility] 13:41:00 [place] [facility] Weight 2017-11-05 211.5 [lb_av] [facility] 13:41:00 [place] [facility] Body Mass Index 2017-11-05 30.35 kg/m2 [facility] o f Calculated 13:41:00 [place] [facility] Temperature 2017-11-05 98.2 [degF] Method: [place] [facility] :41:00 Tympanic [place] [facility] Heart Rate 2017-11-05 116 /min Location: [facility] :41:00 Brachial [place] [facility] Ar[facility]; Respiration Rate 2017-11-05 16 /min Quality: Normal [facility] 13:41:00 [place] [facility] O2 SAT 2017-11-05 95 % Source: [facility] :41:00 [place] [facility] BP Systolic 2017-10-23 168 mm[Hg] Location: [place]; [place] [facility] :07:00 Position: [place] [facility] BP Diastolic 2017-10-23 94 mm[Hg] [facility] [place] [facility] Height 2017-10-23 70 [in_us] [facility] :07:00 [place] [facility] Weight 2017-10-23 213 [lb_av] [place] [facility] :07:00 [place] [facility] Body Mass Index 2017-10-23 30.56 kg/m2 [facility] o f Calculated 13:07:00 [place] [facility] Temperature 2017-10-23 98.3 [degF] Method: [place] [facility] ::00 Tympanic [place] [facility] Heart Rate 2017-10-23 110 /min Location: [facility] :07:00 Brachial [place] [facility] Ar[facility]; Quality: Normal Respiration Rate 2017-10-23 16 /min Quality: Normal [facility] :07:00 [place] [facility] O2 SAT 2017-10-23 96 % Source: [facility] :07:00 [place] [facility] BP Systolic 2017-10-15 136 mm[Hg] [facility] Position: [place] [facility] BP Diastolic 2017-10-15 83 mm[Hg] [facility]08:[facility] Position: [place] [facility] Weight 2017-10-15 210.5 [lb_av] [facility] :08:00 [place] [facility] Body Mass Index 2017-10-15 30.2 kg/m2 University o f Calculated 13:08:00 [place] [facility] Temperature 2017-10-15 97.9 [degF] Method: [place] [facility] :08:00 Tympanic [place] [facility] Heart Rate 2017-10-15 109 /min Location: [facility] :08:00 Brachial [place] [facility] Ar[facility]; Respiration Rate 2017-10-15 12 /min Quality: Normal [facility] 13:08:00 [place] [facility] O2 SAT 2017-10-15 96 % Source: [facility] 13:08:00 [place] [facility] BP Systolic 2017-08-30 141 mm[Hg] Location: [facility] :19:00 Position: [place] [facility] BP Diastolic 2017-08-30 95 mm[Hg] Location: [facility] 13:19:00 Position: [place] [facility] Height 2017-08-30 70 [in_us] [facility] 13:19:00 [place] [facility] Weight 2017-08-30 210 [lb_av] [facility] 13:19:00 [place] [facility] Body Mass Index 2017-08-30 30.13 kg/m2 [facility] o [facility] Calculated 13:19:00 [place] [facility] Temperature 2017-08-30 98.5 [degF] Method: [facility] 13:19:00 Tympanic [place] [facility] Heart Rate 2017-08-30 103 /min Location: [facility] 13:19:00 Brachial [place] [facility] Ar[facility]; Quality: Irregular Respiration Rate 2017-08-30 16 /min Quality: Normal [facility] 13:19:00 [place] [facility] O2 SAT 2017-08-30 96 % Source: [place] [facility] 13:19:00 [place] [facility] BP Systolic 2017-05-31 146 mm[Hg] [facility] 13:13:00 [place] [facility] BP Diastolic 2017-05-31 82 mm[Hg] [facility] 13:13:00 [place] [facility] Height 2017-05-31 70 [in_us] [facility] 13:13:00 [place] [facility] Weight 2017-05-31 215 [lb_av] [facility] 13:13:00 [place] [facility] Body Mass Index 2017-05-31 30.85 kg/m2 [facility] Calculated 13:13:00 [place] [facility] Temperature 2017-05-31 98.2 [degF] [facility] 13:13:00 [place] [facility] Heart Rate 2017-05-31 87 /min [facility] 13:13:00 [place] [facility] Respiration Rate 2017-05-31 14 /min [facility] 13:13:00 [place] [facility] O2 SAT 2017-05-31 95 % [facility] 13:13:00 [place] [facility] Systolic (mm Hg) 2017-05-19 [facility] 02:00:00 Diastolic (mm Hg) 2017-05-19 [facility] ermann 02:00:00 Respitory Rate 2017-05-19 [facility] 02:00:00 Temperature Oral 2017-05-19 99.0 F [facility] ([facility]) 02:00:00 Heart Rate 2017-05-19 [facility] 02:00:00 Heart Rate 2017-05-18 [facility] 22:00:00 Temperature Oral 2017-05-18 98.3 F [facility] (F) 22:00:00 Respitory Rate 2017-05-18 [facility] 22:00:00 Systolic (mm Hg) 2017-05-18 [facility] 22:00:00 Diastolic (mm Hg) 2017-05-18 [facility] 22:00:00 Heart Rate 2017-05-18 [facility] 18:00:00 Respitory Rate 2017-05-18 [facility] 18:00:00 Systolic (mm Hg) 2017-05-18 [facility] 18:00:00 Diastolic (mm Hg) 2017-05-18 [facility] 18:00:00 Temperature Oral 2017-05-18 98.3 F [facility] (F) 18:00:00 Height 2017-05-15 175.26 cm [facility] 16:25:00 Weight 2017-05-15 [facility] 16:25:00 BMI Calculated 2017-05-15 [facility] 16:25:00 Height 2017-05-15 175.26 cm [facility] 12:36:00 Weight 2017-05-15 [facility] 12:36:00 BMI Calculated 2017-05-15 [facility] 12:36:00 Temperature Oral 2017-05-07 98.1 F [facility] ([facility]) 14:00:00 Respitory Rate 2017-05-07 [facility] 14:00:00 Heart Rate 2017-05-07 [facility] 14:00:00 Systolic (mm Hg) 2017-05-07 [facility] 14:00:00 Diastolic (mm Hg) 2017-05-07 [facility] 14:00:00 Systolic (mm Hg) 2017-05-07 [facility] 10:00:00 Diastolic (mm Hg) 2017-05-07 [facility] 10:00:00 Respitory Rate 2017-05-07 [facility] 10:00:00 Temperature Oral 2017-05-07 98.4 F [facility] (F) 10:00:00 Heart Rate 2017-05-07 [facility] 10:00:00 Heart Rate 2017-05-07 [facility] 06:00:00 Respitory Rate 2017-05-07 [facility] 06:00:00 Systolic (mm Hg) 2017-05-07 [facility] 06:00:00 Diastolic (mm Hg) 2017-05-07 [facility] 06:00:00 Temperature Oral 2017-05-07 98.5 F [facility] (F) 06:00:00 Weight 2017-05-02 [facility] 01:54:00 BMI Calculated 2017-05-02 [facility] 01:54:00 Height 2017-05-02 175.26 cm [facility] 01:54:00 Weight 2017-04-30 [facility] 19:50:00 BMI Calculated 2017-04-30 [facility] 19:50:00 Height 2017-04-30 176.53 cm [facility] 19:50:00 Systolic (mm Hg) 2017-04-13 [facility] 22:45:00 Diastolic (mm Hg) 2017-04-13 [facility] 22:45:00 Respitory Rate 2017-04-13 [facility] 22:45:00 Respitory Rate 2017-04-13 [facility] 22:30:00 Systolic (mm Hg) 2017-04-13 [facility] 22:30:00 Diastolic (mm Hg) 2017-04-13 [facility] 22:30:00 Systolic (mm Hg) 2017-04-13 [facility] 22:15:00 Diastolic (mm Hg) 2017-04-13 [facility] 22:15:00 Respitory Rate 2017-04-13 [facility] 22:15:00 Heart Rate 2017-04-13 [facility] 18:43:00 Weight 2017-04-13 [facility] 18:07:00 Height 2017-04-13 175.26 cm [facility] 18:07:00 BMI Calculated 2017-04-13 [facility] 18:07:00 Respitory Rate 2017-04-13 [facility] 16:14:00 Systolic (mm Hg) 2017-04-13 [facility] 16:14:00 Diastolic (mm Hg) 2017-04-13 [facility] 16:14:00 Heart Rate 2017-04-13 [facility] 16:14:00 Systolic (mm Hg) 2017-04-13 [facility] 16:06:00 Diastolic (mm Hg) 2017-04-13 [facility] 16:06:00 Respitory Rate 2017-04-13 [facility] 16:06:00 Heart Rate 2017-04-13 [facility] 16:06:00 Heart Rate 2017-04-13 [facility] 15:08:00 Respitory Rate 2017-04-13 [facility] 15:08:00 Systolic (mm Hg) 2017-04-13 [facility] 15:08:00 Diastolic (mm Hg) 2017-04-13 [facility] 15:08:00 Weight 2017-04-13 [facility] 12:25:00 Temperature Oral 2017-04-13 98.9 F [facility] (F) 12:25:00 Weight 2017-04-13 [facility] 09:26:00 Respitory Rate 2017-04-13 [facility] 09:26:00 Heart Rate 2017-04-13 [facility] 09:26:00 Systolic (mm Hg) 2017-04-13 [facility] 09:26:00 Diastolic (mm Hg) 2017-04-13 [facility] 09:26:00 Systolic (mm Hg) 2017-03-19 [facility] 04:02:00 Diastolic (mm Hg) 2017-03-19 [facility] 04:02:00 Respitory Rate 2017-03-19 [facility] 04:02:00 Heart Rate 2017-03-19 [facility] n 04:02:00 Systolic (mm Hg) 2017-03-19 [facility] 02:28:00 Diastolic (mm Hg) 2017-03-19 [facility] 02:28:00 Respitory Rate 2017-03-19 [facility] 02:28:00 Heart Rate 2017-03-19 [facility] n 02:28:00 Respitory Rate 2017-03-19 [facility] 02:17:00 Weight 2017-03-18 [facility] 23:56:00 Systolic (mm Hg) 2017-03-18 [facility] 23:56:00 Diastolic (mm Hg) 2017-03-18 [facility] 23:56:00 Temperature Oral 2017-03-18 98.9 F [facility] (F) 23:56:00 Heart Rate 2017-03-18 [facility]r n 23:56:00 BP Systolic 2017-03-01 144 mm[Hg] Location: [facility] 13:09:00 Position: [place] [facility] BP Diastolic 2017-03-01 90 mm[Hg] Location: [facility] 13:09:00 Position: [place] [facility] Height 2017-03-01 70 [in_us] [facility] 13:09:00 [place] [facility] Weight 2017-03-01 212.125 [lb_av] [facility] 13:09:00 [place] [facility] Body Mass Index 2017-03-01 30.44 kg/m2 [facility] o f Calculated 13:09:00 [place] [facility] Temperature 2017-03-01 97.8 [degF] Method: [facility] 13:09:00 Tympanic [place] [facility] Heart Rate 2017-03-01 69 /min Location: [facility] 13:09:00 Brachial [place] [facility] Artery; Quality: Normal Respiration Rate 2017-03-01 12 /min Quality: Normal [facility] 13:09:00 [place] [facility] O2 SAT 2017-03-01 97 % Source: [facility] 13:09:00 [place] [facility] Weight 2017-02-23 [facility] 16:24:00 BMI Calculated 2017-02-23 [facility] 16:24:00 Height 2017-02-23 172.72 cm [facility] 16:24:00 Respitory Rate 2017-01-29 [facility] 13:06:00 Systolic (mm Hg) 2017-01-29 [facility] 13:06:00 Diastolic (mm Hg) 2017-01-29 [facility] 13:06:00 Heart Rate 2017-01-29 [facility] 13:06:00 Temperature Oral 2017-01-29 99 F [facility] (F) 13:06:00 Heart Rate 2017-01-29 [facility] 12:13:00 Temperature Oral 2017-01-29 99 F [facility] (F) 12:13:00 Respitory Rate 2017-01-29 [facility] 12:13:00 Systolic (mm Hg) 2017-01-29 [facility] 12:13:00 Diastolic (mm Hg) 2017-01-29 [facility] 12:13:00 Respitory Rate 2017-01-29 [facility] 12:00:00 Systolic (mm Hg) 2017-01-29 [facility] 12:00:00 Diastolic (mm Hg) 2017-01-29 [facility] 12:00:00 Heart Rate 2017-01-29 [facility] 12:00:00 Temperature Oral 2017-01-29 99.1 F [facility] (F) 10:10:00 Weight 2017-01-29 [facility] 10:10:00 Height 2017-01-29 177.8 cm [facility] 10:10:00 BMI Calculated 2017-01-29 [facility] 10:10:00 Systolic (mm Hg) 2017-01-27 [facility] 13:10:00 Diastolic (mm Hg) 2017-01-27 [facility] 13:10:00 Respitory Rate 2017-01-27 [facility] 13:10:00 Heart Rate 2017-01-27 [facility] 13:10:00 Temperature Oral 2017-01-27 98.4 F [facility] (F) 13:10:00 Systolic (mm Hg) 2017-01-27 [facility] 09:41:00 Diastolic (mm Hg) 2017-01-27 [facility] 09:41:00 Respitory Rate 2017-01-27 [facility] 09:41:00 Heart Rate 2017-01-27 [facility] 09:41:00 Temperature Oral 2017-01-27 98.0 F [facility] (F) 09:41:00 Temperature Oral 2017-01-27 98.4 F [facility] (F) 05:48:00 Heart Rate 2017-01-27 [facility] 05:48:00 Respitory Rate 2017-01-27 [facility] 05:48:00 Systolic (mm Hg) 2017-01-27 [facility] 05:48:00 Diastolic (mm Hg) 2017-01-27 [facility] 05:48:00 Weight 2017-01-22 [facility] 16:33:00 BMI Calculated 2017-01-22 [facility] 16:33:00 Height 2017-01-22 172.72 cm [facility] 16:33:00 Weight 2017-01-22 [facility] 16:32:00 BMI Calculated 2017-01-22 [facility] 16:32:00 Height 2017-01-22 172.72 cm [facility] 16:32:00 Diastolic (mm Hg) 2016-03-24 [facility] 14:24:00 Respitory Rate 2016-03-24 [facility] 14:24:00 Systolic (mm Hg) 2016-03-24 [facility] 14:24:00 Heart Rate 2016-03-24 [facility] 14:24:00 Temperature Oral 2016-03-24 98.7 F [facility] (F) 06:30:00 Heart Rate 2016-03-24 [facility] 01:30:00 Temperature Oral 2016-03-24 99.3 F [facility] (F) 01:30:00 Systolic (mm Hg) 2016-03-24 [facility] 01:30:00 Diastolic (mm Hg) 2016-03-24 [facility] 01:30:00 Respitory Rate 2016-03-24 [facility] 01:30:00 Respitory Rate 2016-03-24 [facility] 00:52:00 Diastolic (mm Hg) 2016-03-23 [facility] 20:23:00 Heart Rate 2016-03-23 [facility] 20:23:00 Systolic (mm Hg) 2016-03-23 [facility] 20:23:00 Height 2016-03-22 177.8 cm [facility] 19:52:00 Height 2016-03-22 177.8 cm [facility] 17:49:00 Temperature Oral 2016-03-21 98.6 F [facility] (F) 13:29:00 Height 2016-03-18 177.8 cm [facility] 00:36:00 BMI Calculated 2016-03-18 [facility] 00:36:00 Weight 2016-03-18 [facility] 00:36:00 Temperature Oral 2016-03-17 98.0 F [facility] (F) 17:30:00 Respitory Rate 2016-03-17 [facility] 17:30:00 Systolic (mm Hg) 2016-03-17 [facility] 17:30:00 Diastolic (mm Hg) 2016-03-17 [facility] 17:30:00 Heart Rate 2016-03-17 [facility] 17:30:00 Respitory Rate 2016-03-17 [facility] 13:57:00 Temperature Oral 2016-03-17 99.1 F [facility] (F) 13:57:00 Systolic (mm Hg) 2016-03-17 [facility] 13:57:00 Diastolic (mm Hg) 2016-03-17 [facility] 13:57:00 Heart Rate 2016-03-17 [facility] 13:57:00 Heart Rate 2016-03-17 [facility] 09:42:00 Temperature Oral 2016-03-17 98.1 F Justin Young rmann (F) 09:42:00 Respitory Rate 2016-03-17 [facility] 09:42:00 Systolic (mm Hg) 2016-03-17 [facility] 09:42:00 Diastolic (mm Hg) 2016-03-17 [facility] 09:42:00 Weight 2016-03-14 [facility] 16:55:00 Height 2016-03-14 177.8 cm [facility] 16:55:00 Weight 2016-02-26 [facility] 15:45:00 Height 2016-02-22 177.8 cm [facility] 11:00:00 Weight 2016-02-22 [facility] 11:00:00 BMI Calculated 2016-02-22 [facility] 11:00:00 Weight 2016-02-15 [facility] 14:15:00 BMI Calculated 2016-02-15 [facility] 14:15:00 Height 2016-02-15 177.8 cm [facility] 14:15:00 Height 2016-02-08 177.8 cm [facility] 17:06:00 BMI Calculated 2016-02-08 [facility] 17:06:00 Procedures Procedure Date / Time Performing Clinician Source Performed Physical Therapy 2019-11-27 00:00:00 [facility] Physicians Complete PFTs w/DLCO and 2019-11-04 00:00:00 [facility] Volumes Physicians 6 Minute Walk Test 2019-11-04 00:00:00 [facility] Physicians PSA, ULTRASENSITIVE 2019-10-23 11:01:00 Addison Vance TESTOSTERONE LEVEL, FREE 2019-10-23 11:01:00 Addison Vance AND TOTAL, MALE RAD ONC COURSE SUMMARY 2019-10-21 07:50:06 Provider, Unknown Joel Varghese MRI Spine cervical wo 2019-10-21 00:00:00 [facility] contrast [id number] Physicians MRI Spine thoracic wo 2019-10-21 00:00:00 [facility] contrast [id number] Physicians MRI Spine lumbar wo 2019-10-21 00:00:00 [facility] contrast [id number] Physicians RAD ONC DAILY TREATMENT 2019-09-19 08:41:34 Provider, Unknown [facility] RAD ONC DAILY TREATMENT 2019-09-18 07:49:53 Provider, Unknown [facility] ONC DAILY TREATMENT 2019-09-17 08:24:59 Provider, Unknown [facility] CHEST WO CONTRAST 2019-09-16 13:37:27 Regina Zhong [facility] [place] RAD ONC DAILY TREATMENT 2019-09-16 08:28:46 Provider, Unknown [facility] RAD ONC DAILY TREATMENT 2019-09-15 08:37:20 Provider, Unknown [facility] RAD ONC DAILY TREATMENT 2019 08:32:38 Provider, Unknown [facility] ONC DAILY TREATMENT 2019-09-11 08:35:29 Provider, Unknown [facility] RAD ONC DAILY TREATMENT 2019-09-10 08:31:14 Provider, Unknown [facility] ONC DAILY TREATMENT 2019-09-09 08:35:49 Provider, Unknown [facility] RAD ONC DAILY TREATMENT 2019-09-08 08:34:58 Provider, Unknown [facility] RAD ONC DAILY TREATMENT 2019-09-05 08:35:51 Provider, Unknown [facility] RAD ONC DAILY TREATMENT 2019-09-04 08:43:57 Provider, Unknown [facility] RAD ONC DAILY TREATMENT 2019-09-03 08:33:12 Provider, Unknown [facility] RAD ONC DAILY TREATMENT 2019-09-02 08:35:09 Provider, Unknown [facility] RAD ONC DAILY TREATMENT 2019-09-01 08:34:00 Provider, Unknown [facility] RAD ONC DAILY TREATMENT 2019-08-29 08:58:21 Provider, Unknown [facility] RAD ONC DAILY TREATMENT 2019-08-28 08:55:10 Provider, Unknown [facility] RAD ONC DAILY TREATMENT 2019-08-27 08:35:23 Provider, Unknown [facility] RAD ONC DAILY TREATMENT 2019-08-26 12:15:40 Provider, Unknown [facility] RAD ONC DAILY TREATMENT 2019-08-25 10:11:00 Provider, Unknown Justo Varghese RAD ONC DAILY TREATMENT 2019-08-22 08:36:03 Provider, Unknown Justo Varghese RAD ONC DAILY TREATMENT 2019-08-01 15:08:27 Provider, Unknown Justo Varghese POC GLUCOSE 2019-08-01 10:51:00 [facility] [place] > 1 HOUR 2019-08-01 10:00:00 [facility] [place] AN ELECTIVE 2019-08-01 08:17:55 Tsering Chung [facility] ENDOTRACHEAL AIRWAY Lisa PLACEMENT,PROSTATE 2019-08-01 08:04:00 Seamus Conklin INTERSTITIAL NEEDLE (HDR) POTASSIUM LEVEL 2019-08-01 06:44:00 Seamus Conklin [facility] TYPE AND SCREEN 2019-08-01 06:35:00 [facility] POC GLUCOSE 2019-08-01 06:08:00 [facility] URINE CULTURE 2019-07-24 11:55:00 [facility] PSA, ULTRASENSITIVE 2019-07-24 11:51:00 Regina Zhong [place] TESTOSTERONE 2019-07-24 11:51:00 Regina Zhong [facility] Brown COVID-19 QUALITATIVE PCR 2019-07-24 11:50:00 Seamus Conklin BASIC METABOLIC PANEL 2019-07-24 11:49:00 [facility] HC COMPLETE BLD COUNT 2019-07-24 11:49:00 [facility] W/AUTO DIFF ESTIMATED GFR 2019-07-24 11:49:00 [facility] URINALYSIS SCREEN AND 2019-07-24 11:48:00 [facility] MICROSCOPY, WITH REFLEX TO CULTURE XR CHEST 2 VW 2019-04-21 11:46:46 Adama Batista [facility] URINE CULTURE 2019-04-21 10:55:00 Adama Bat[facility] ECG PRE/POST OP 2019-04-21 10:47:02 Adama Batista [facility] HC COMPLETE BLD COUNT 2019-04-21 10:20:00 Adama Batista [facility] W/AUTO DIFF COMPREHENSIVE METABOLIC 2019-04-21 10:20:00 [facility] PANEL PARTIAL THROMBOPLASTIN 2019-04-21 10:20:00 Adama Batista [facility] TIME (PTT) PROTHROMBIN TIME WITH INR 2019-04-21 10:20:00 Adama Batista HEPATITIS C ANTIBODY 2019-04-21 10:20:00 Adama Batista on [facility] TYPE AND SCREEN 2019-04-21 10:20:00 Adama Batista [facility] URINALYSIS SCREEN AND 2019-04-21 10:20:00 Adama Batista MICROSCOPY, WITH REFLEX TO CULTURE ESTIMATED GFR 2019-04-21 10:20:00 Adama Batista [facility] NM BONE SCAN WHOLE BODY 2019-03-25 11:44:[address] ABDOMEN WWO CONTRAST 2019-03-25 10:24:50 Addison Vance PELVIS W CONTRAST POC CREATININE 2019-03-25 08:40:00 Addison Vance odist ESTIMATED GFR 2019-03-25 08:40:00 Addison Vance [facility]ist US PROSTATE BIOPSY 2019-03-06 10:31:48 Addison Vance M ethodist POC URINALYSIS DIPSTICK 2019-03-06 10:27:00 Addison Vance [U] XRAY SPINE 2018-12-26 00:00:00 [place] [facility] [place] LUMBOSACRAL [address] [facility] Physician s [id number] Physical Therapy 2018-12-26 00:00:00 [facility] Physicians Physical Therapy 2018-09-25 00:00:00 [facility] Physicians [U] XRAY SHOULDER MIN 2 2018-08-15 00:[id number] [[facility]] X[facility] SHOULDER MIN 2 2018-07-04 00:00:00 [facility] RIGHT [id number] Physicians Post Op Promise 29 Survey 2018-05-29 00:00:00 [facility] 2018-05-29 00:00:00 [facility] Physicians [QL] VITAMIN B1, WHOLE 2018-05-07 00:00:00 [facility] BLOOD Physicians [QL] VITAMIN B6 2018-05-07 00:00:00 [facility] Physicians [QL] VITAMIN B12 2018-05-07 00:00:00 [facility] Physicians [QL] TSH, 3RD GENERATION 2018-05-07 00:00:00 [facility] TO FT4 Physicians [[facility]] FOLATE, SERUM 2018-05-07 00:00:00 [facility] Physicians [H] Immunofixation 2018-05-07 00:00:00 [facility] Eletrophoresis Physicians [H] Immunofixation 2018-05-07 00:00:00 [facility] Eletrophoresis Urine Physicians [QLH] NORMA PANEL, 2018-05-07 00:00:00 [facility] COMPREHENSIVE Physicians [QL] HEPATITIS PANEL 2018-05-07 00:00:00 [facility] Physicians Arthrocentesis, 2018-04-22 20:14:50 [facility] aspiration and/or injection, major joint or bursa (eg, shoulder, hip, knee, subacromial bursa); without ultrasound guidance [U] XRAY SHOULDER MIN 2 2018-04-15 00:00:00 [facility] LEFT [id number] Physicians MR Shoulder w/wo contrast 2018-04-15 00:00:00 [facility] [id number] [facility] Physical Therapy 2018-04-02 00:00:00 [facility] Physicians [U] XRAY SPINE CERVICAL 2 2018-04-02 00:00:00 [facility] [id number] Physicians [U] XRAY SPINE 2018-04-02 00:00:00 [facility] LUMBOSACRAL [address] [facility] Physician s [id number] MRI Spine cervical wo 2018-04-02 00:00:00 [facility] contrast [id number] Physicians MRI Spine thoracic wo 2018-04-02 00:00:00 [facility] contrast [id number] Physicians MRI Spine lumbar wo 2018-04-02 00:00:00 [facility] contrast [id number] Physicians [U] XRAY SPINE 2018-04-01 00:00:00 [employer] LUMBOSACRAL [address] [facility] Physician s [id number] [H] Allergens, Inhalants, 2017-12-03 00:00:00 [facility] Physicians Physical Therapy 2017-07-12 00:00:00 [facility] Physicians [U] XRAY SPINE 2017-07-11 00:00:00 [employer] [place] LUMBOSACRAL [address] [facility] Physician s [id number] [H] Allergens, Inhalants, 2017-05-31 00:00:00 Un [facility] Physicians CT Chest wo contrast 2017-05-31 00:00:00 [facility] [id number] Physicians [U] XRAY SHOULDER MIN 2 2017-04-30 00:00:00 [facility] RIGHT [id number] Physicians [U] XRAY SHOULDER MIN 2 2017-04-02 00:00:00 [facility] RIGHT [id number] Physicians Operation<sup>1</sup> 2016-02-22 06:00:00 Yoni Centeno History of Rotator Cuff [facility] Repair Physicians History of Capsulotomy [facility] Left Foot First MTP Physicians History of Hemicolectomy [facility] Physicians History of Lumbar [employer] [facility] [employer] [place] Vertebral Fusion Physicians History of Neuroplasty [facility] Left Thumb Physicians History of Lower Back [facility] Surgery Lumbar Disc Physicians History of Cataract [facility] Surgery Physicians History of Shoulder [facility] Surgery Physicians Colon [facility] operation<sup>2</sup> Exc[facility] Replacement [facility] Shoulder repair [facility] Plan of Care Planned Activity Planned Date Details Comments Source Diagnostic Test 2019-11-04 Complete PFTs w/DLCO [facility] Pending 00:00:00 and Lung Volumes Physicians [code = Complete PFTs w/DLCO and Lung Volumes] Diagnostic Test 2019-11-04 6 Minute Walk Test [facility] Pending 00:00:00 [code = 6 Minute Walk Physic ians Test] Future Scheduled 2019-10-25 INFLUENZA VACCINE [place] [employer] [facility] 00:00:00 [code = INFLUENZA VACCINE] Future Scheduled 2007-09-13 65+ PNEUMOCOCCAL [place] [facility] Test 00:00:00 VACCINE (2 of 2 - PPSV23) [code = 65+ PNEUMOCOCCAL VACCINE (2 of 2 - PPSV23)] Future Scheduled 1992 SHINGLES VACCINES [place] [facility] Test 00:00:00 (#1) [code = SHINGLES VACCINES (#1)] Future Appointment 2020-06-24 Devin CARMICHAEL [facility] 13:00:00 Sreedhar ROMANO Encounters Start End Encounter Admission Attending Care Care Encounter Source Date/Time Date/Time Type Type Clinicians Facility Department ID 2019-03-07 Inpatient [facility] [id number] 15:28:00 [facility] 2020-02-05 2020-02-05 Appointmen PARUL ROMANO Multispecia [id number] [facility] 13:20:00 13:20:00 t; JOSE ROMANO merritt - ity of JOSE odonnell M.D. Physici ans 2020-01-13 2020-01-13 Outpatient [facility] [id number] [place] 00:00:00 00:00:00 SEAMUS [address] 2020-01-06 2020-01-06 [facility]patient [facility] [id number] [place] 00:00:00 00:00:00 SEAMUS [address] 2019-11-27 2019-11-27 Appointmen PARUL GONSALES RUST [id number] [facility] 10:30:00 10:30:00 t; AGNIESZKA GONSALES ity Orly Alfaro M.D. Physici ans 2019-11-27 2019-11-27 AppointPARUL Garcia Orthopedics [id number] [facility] 10:00:00 10:00:00 t; AGNIESZKA GONSALES - [place] [facility] Devin Alfaro [place] Physici ans 2019-11-19 2019-11-19 [facility] [id number] 08:45:00 23:59:00 Jose Alcala 2019-11-19 2019-11-19 Outpatient Juan Antonio [facility] [id number] 08:45:00 23:59:00 Jose 19 2019-11-19 2019-11-19 Outpatient [facility] PUL [id number] [facility] 08:45:00 08:45:00 2019-11-18 2019-11-19 Outpatient CASSANDRAACH, [facility] [id number] [place] 00:00:00 00:00:00 SEAMUS [address] 2019-11-18 2019-11-18 Outpatient FARACH, [facility] [id number] [place] 00:00:00 00:00:00 SEAMUS [address] 2019-11-18 2019-11-18 Outpatient CASSANDRAACH, [facility] [id number] [place] 00:00:00 00:00:00 SEAMUS [address] 2019-11-04 2019-11-04 Appointmen PARUL ROMANO Multispecia [id number] [facility] 09:40:00 09:40:00 t; JOSE ROMANO lty - huy of JOSE odonnell M.D. Physici ans 2019-11-03 2019-11-03 Outpatient Ilda [facility] [id number] 12:34:00 23:59:00 Agnieszka 18 2019-11-03 2019-11-03 [id number] 12:34:00 12:34:00 [facility] 2019-10-23 2019-10-23 Outpatient MARTHA, [facility] [id number] [place] 00:00:00 00:00:00 ADDISON [address] 2019-10-21 2019-10-21 Appointmen PARUL GONSALES Orthopedics [id number] [facility] 10:15:00 10:15:00 t; AGNIESZKA GONSALES - [place] itDavis Alfaro M.D. [place] Physici ans 2019-09-19 2019-09-19 Outpatient [facility] [id number] [place] 00:00:00 00:00:[address] 2019-09-18 2019-09-18 Outpatient [facility] [id number] [place] 00:00:00 00:00:[address] 2019-09-18 2019-09-18 Outpatient FARACH, [facility] [id number] [place] 00:00:00 00:00:00 SEAMUS [address] 2019-09-17 2019-09-17 Outpatient [facility] [id number] [place] 00:00:00 00:00:[address] 2019-09-16 2019-09-16 Outpatient [facility] [id number] [place] 00:00:00 00:00:[address] 2019-09-16 2019-09-16 Outpatient FARACH, [facility] [id number] [place] 00:00:00 00:00:00 SEAMUS [address] 2019-09-15 2019-09-15 Outpatient [facility] [id number] [place] 00:00:00 00:00:[address] 2019 2019 Outpatient [facility] [id number] [place] 00:00:00 00:00:[address] 2019-09-11 2019-09-11 Outpatient [facility] [id number] [place] 00:00:00 00:00:[address] 2019-09-11 2019-09-11 Outpatient FARACH, [facility] [id number] [place] 00:00:00 00:00:00 SEAMUS [address] 2019-09-10 2019-09-10 Outpatient [facility] [id number] [place] 00:00:00 00:00:[address] 2019-09-09 2019-09-09 Outpatient [facility] [id number] [place] 00:00:00 00:00:[address] 2019-09-08 2019-09-08 Outpatient [facility] [id number] [place] 00:00:00 00:00:[address] 2019-09-05 2019-09-05 Outpatient [facility] [id number] [place] 00:00:00 00:00:[address] 2019-09-04 2019-09-04 Outpatient [facility] [id number] [place] 00:00:00 00:00:[address] 2019-09-04 2019-09-04 Outpatient FARACH, [facility] [id number] [place] 00:00:00 00:00:00 SEAMUS [address] 2019-09-04 2019-09-04 Outpatient FARACH, [facility] [id number] [place] 00:00:00 00:00:00 SEAMUS [address] 2019-09-03 2019-09-03 Outpatient [facility] [id number] [place] 00:00:00 00:00:[address] 2019-09-03 2019-09-03 Outpatient FARACH, [facility] [id number] [place] 00:00:00 00:00:00 SEAMUS [address] 2019-09-02 2019-09-02 Outpatient [facility] [id number] [place] 00:00:00 00:00:[address] 2019-09-01 2019-09-01 Outpatient [facility] [id number] [place] 00:00:00 00:00:[address] 2019-08-28 2019-08-28 Outpatient [facility] [id number] [place] 00:00:00 00:00:[address] 2019-08-28 2019-08-28 Outpatient FARACH, [facility] [id number] [place] 00:00:00 00:00:00 SEAMUS [address] 2019-08-27 2019-08-27 Outpatient [facility] [id number] [place] 00:00:00 00:00:[address] 2019-08-26 2019-08-26 Outpatient [facility] [id number] [place] 00:00:00 00:00:[address] 2019-08-25 2019-08-26 Outpatient FARACH, [facility] [id number] [place] 00:00:00 00:00:00 SEAMUS [address] 2019-08-25 2019-08-25 Outpatient [facility] [id number] [place] 00:00:00 00:00:[address] 2019-08-22 2019-08-22 Outpatient [facility] [id number] [place] 00:00:00 00:00:[address] 2019-08-21 2019-08-21 Outpatient [facility] [id number] [place] 00:00:00 00:00:[address] 2019-08-21 2019-08-21 Outpatient FARACH, [facility] [id number] [place] 00:00:00 00:00:00 SEAMUS [address] 2019-08-20 2019-08-20 Outpatient FARACH, [facility] [id number] [place] 00:00:00 00:00:00 SEAMUS [address] 2019-08-12 2019-08-12 Outpatient FARACH, [facility] [id number] [place] 00:00:00 00:00:00 SEAMUS [address] 2019-08-01 2019-08-01 Outpatient FARACH, [facility] [id number] [place] 00:00:00 00:00:00 SEAMUS [address] 2019-07-30 2019-07-30 Outpatient FARACH, [facility] [id number] [place] 00:00:00 00:00:00 SEAMUS [address] 2019-07-24 2019-07-24 Outpatient FARACH, [facility] [id number] [place] 00:00:00 00:00:00 SEAMUS [address] 2019-06-18 2019-06-18 Outpatient FARACH, [facility] [id number] [place] 00:00:00 00:00:00 SEAMUS [address] 2019-05-06 2019-05-06 Outpatient FARACH, [facility] [id number] [place] 00:00:00 00:00:00 SEAMUS [address] 2019-04-29 2019-04-29 Outpatient FARACH, [facility] [id number] [place] 00:00:00 00:00:00 SEAMUS [address] 2019-04-29 2019-04-29 Outpatient FARACH, [facility] [id number] [place] 00:00:00 00:00:00 SEAMUS [address] 2019-04-21 2019-04-21 Outpatient SATKUNASIVA [facility] [id number] [place] 00:00:00 00:00:00 ADAMA Rogel [address] 2019-04-08 2019-04-08 Outpatient [place], [place] [id number] 12:26:00 23:59:00 Sarmad Middleton 17 2019-04-08 2019-04-08 Outpatient MHSE PUL [id number] 12:26:00 12:26:00 Daya morillo [facility] 2019-03-25 2019-03-25 Outpatient MARTHA, [facility] [id number] [place] 00:00:00 00:00:00 ADDISON 981 Method i 2019-03-25 2019-03-25 Outpatient MARTHA [facility] [id number] [place] 00:00:00 00:00:00 ADDISON 980 Method i 2019-03-25 2019-03-25 Outpatient MARTHA [facility] [id number] [place] 00:00:00 00:00:00 ADDISON 904 Method i 2019-03-07 2019-03-09 Outpatient Shiv [facility] [id number] 15:28:00 17:55:00 Jeremy Howard 2018-12-26 2018-12-26 Appointmen ILDA RUST Orthopedics [id number] Univers 13:15:00 13:15:00 t; AGNIESZKA GONSALES, hipolito [facility] AGNIESZKA Alfaro M.D. Orthopedic Physi ci and Spine [facility] 2018-12-19 2018-12-19 Outpatient MARTHA [facility] [id number] [place] 00:00:00 00:00:00 ADDISON 940 Method i 2018-08-15 2018-08-15 [id number] Univers 10:30:00 10:30:00 t; Devin PIZANO [facility] y of ANABELHerrick, [place] Arben PIZANO M.D. [facility] 2018-07-04 2018-07-04 Appointmen ANABEL [facility] [id number] Univers 10:30:00 10:30:00 t; Devin PIZANO [facility] y of ANAB[place]Herrick, [place] Arben PIZANO M.D. ans 2018-05-30 2018-05-30 Appointmen ANABEL [facility] [id number] Univers 10:45:00 10:45:00 t; Devin PIZANO [facility] y of ANABELHerrick, [place] Arben PIZANO M.D. [facility] 2018-05-17 2018-05-18 Outpatient Anabel [facility] [id number] 07:18:00 09:50:00 Harinder Webster 2018-05-17 2018-05-17 Appointmen ANABEL, [facility] [id number] Univers 08:00:00 08:00:00 t; Devin PIZANO of Angelina LITTLE Physici M.D. [facility] 2018-05-08 2018-05-08 Appointmen PARUL YAO Neurology [id number] Univers 13:45:00 13:45:00 t; NABIL YAO it y of FARZANEH, M.D. [place] M.D. [facility] 2018-05-07 2018-05-07 Appointmen ALDA RUST Neurology [id number] Univers 10:30:00 10:30:00 t; Devin JENNINGS [place] SUUR, M.D. [facility] 2018-05-06 2018-05-06 Outpatient Banki, MHSE MHSE [id number] 09:14:00 15:05:00 Nabil 14 2018-05-02 2018-05-02 Outpatient Banki, MHSE MHSE [id number] 11:37:00 23:59:00 Nabil 15 2018-05-02 2018-05-02 Outpatient Banki, MHSE MHSE [id number] 11:37:00 23:59:00 Nabil 15 2018-04-30 2018-04-30 [facility] [id number] [facility] 10:00:00 10:00:00 t; Devin PIZANO y of Jony LITTLE [place] JAMES, [address] Physici M[address] [facility] 2018-04-24 2018-04-24 Outpatient Banki, MHSE MHSE [id number] 10:09:00 23:59:00 Nabil 13 2018-04-24 2018-04-24 Outpatient Banki, MHSE MHSE [id number] 10:09:00 23:59:00 Nabil 13 2018-04-24 2018-04-24 Appointmen PARUL YAO Cardiothcaldwell [id number] Univers 11:00:00 11:00:00 t; NABIL YAO cic and Segundo M.D. Vascular [place] M.D. Surgery [facility] 2018-04-22 2018-04-22 Outpatient Anabel [facility] [id number] 11:07:00 23:59:00 Harinder Webster 2018-04-22 2018-04-22 Out[facility] [id number] 11:07:00 23:59:00 Harinder Webster 2018-04-18 2018-04-18 Outpatient Anabel, [id number] 14:50:00 23:59:00 Harinder [id number] Darin [id number] 2018-04-18 2018-04-18 Outpatient Anabel, [id number] 14:50:00 23:59:00 Harinder [id number] Darin [id number] 2018-04-16 2018-04-16 Outpatient [facility] [id number] 11:00:00 23:59:00 Agnieszka 03 2018-04-16 2018-04-16 Outpatient Santamanjula, OIP OIP [id number] 11:00:00 23:59:00 Agnieszka 03 2018-04-15 2018-04-15 Appointmen PARUL LITTLE [facility] [id number] [facility] 11:30:00 11:30:00 t; Devin PIZANO [facility] it y of Jony LITTLE [place] JAMES, [address] Physici Devin [facility] 2018-04-02 2018-04-02 Appointmen PARUL GONSALES [facility] [id number] Univers 14:00:00 14:00:00 t; AGNIESZKA GONSALES, Ortho and ity of AGNIESZKA [facility] Ethan hadlye M.D. Medical Physici [facility] 2017-12-12 2017-12-12 Appointmen MARILEE [facility] [id number] [facility] 14:00:00 14:00:00 t; CHEY, Multi-Speci it y of mason KWOKy [place] Devin WILSON [facility], Physici PREM, [address] ans MMableDMable 2017-12-03 2017-12-03 Appointmen [facility] [id number] Univers 13:00:00 13:00:00 t; MEGGAN HARRY M.D. Multi-Speci ity of Devin BRODERICK [facility], Physici [address] ans 2017-11-05 2017-11-05 Appointmen [facility] [id number] Univers 13:30:00 13:30:00 t; MEGGAN HARRY M.D. Multi-Speci ity of Devin [facility]OD[facility] 1 Physici ans 2017-10-23 2017-10-23 Appointmen [facility] [id number] Univers 13:00:00 13:00:00 t; MEGGAN HARRY M.D. Multi-Speci ity of Devin BRODERICK [facility] [address] ans 2017-10-15 2017-10-15 Appointmen [facility] [id number] Univers 13:00:00 13:00:00 t; MEGGAN HARRY M.D. Multi-Speci ity of Devin [facility] 1 Physici ans 2017-08-30 2017-08-30 Appointmen [facility] [id number] Univers 13:00:00 13:00:00 t; MEGGAN HARRY M.D. Multi-Speci ity of Devin BRODERICK [facility], Physici [address] ans 2017-07-12 2017-07-12 Appointmen ILDA [facility] [id number] Univers 14:30:00 14:30:00 t; AGNIESZKA GONSALES, Orthopedics ity of AGNIESZKA Alfaro M.D. Physici ans 2017-06-28 2017-06-28 Appointmen PARUL LITTLE [facility] [id number] Univers 11:30:00 11:30:00 t; Devin PIZANO [facility] it y of Jony LITTLE [place] JAMES, [address] Susanai Devin ans 2017-06-07 2017-06-07 Appointmen ANABEL [facility] [id number] Univers 10:30:00 10:30:00 t; Devin PIZANO [facility] it y of [place], [place] Arben PIZANO M.D. ans 2017-06-01 2017-06-01 Outpatient Kamryn, MHOIP MHOIP [id number] 13:49:00 23:59:00 Meggan 02 Nancy 2017-06-01 2017-06-01 Outpatient Harry, OIP OIP [id number] 13:49:00 23:59:00 Meggan 02 Nancy 2017-05-31 2017-05-31 Appointmen [facility] [id number] Univers 13:00:00 13:00:00 t; MEGGAN HARRY M.D. Multi-Speci ity of Devin BRODERICK [facility], Physici [address] ans 2017-05-24 2017-05-24 Appointdomo LITTLE, [facility] [id number] Univers 10:15:00 10:15:00 t; Devin PIZANO [facility] it y of ANAB[place], [place] Arben PIZANO M.D. [facility] 2017-05-15 2017-05-18 Outpatient Anabel [facility] [id number] 08:43:00 21:07:00 Harinder Webster 2017-05-15 2017-05-15 Appointmen ANABEL, [facility] [id number] Univers 08:00:00 08:00:00 t; Devin PIZANO it y of Angelina LITTLE Physici M.D. ans 2017-05-14 2017-05-14 [facility]NABEL, [facility] [id number] 12 Univers 11:00:00 11:00:00 t; Devin PIZANO y of Angelina LITTLE Physici M.D. ans 2017-05-01 2017-05-07 [facility] [id number] 09:53:00 14:15:00 Harinder Webster 2017-05-01 2017-05-01 Appointmen ANABEL, [facility] [id number] Univers 08:30:00 08:30:00 t; Devin PIZANO it y of Angelina LITTLE Physici M.D. ans 2017-04-30 2017-04-30 Appointdomo LITTLE [facility] [id number] Univers 10:30:00 10:30:00 t; Devin PIZANO [facility] it y of ANABELDolph, [place] Arben PIZANO M.D. ans 2017-04-13 2017-04-13 Outpatient Anabel, [facility] [id number] 11:24:00 17:20:00 Harinder Cari Webster 2017-04-13 2017-04-13 Outpatient Bobby, [facility] [id number] 06:25:00 11:00:00 Ebelechukwu 09 Agaegbu 2017-04-13 2017-04-13 Outpatient Wynne, [facility] [id number] 03:10:00 05:16:00 Abundio 08 Leslye 2017-04-02 2017-04-02 [facility] [id number] Univers 11:00:00 11:00:00 t; Devin PIZANO [facility] [place], [place] Arben PIZANO M.D. ans 2017-03-18 2017-03-18 Outpatient Fadowole, [facility] [id number] 17:55:00 22:11:00 Jaimie 07 Toluwalope 2017-03-05 2017-03-05 Leslie LITTLE [facility] [id number] Univers 10:30:00 10:30:00 t; Devin PIZANO [facility] y [place], [place] rAben PIZANO M.D. ans 2017-03-01 2017-03-01 Appointmen KAMRYN [facility] [id number] Univers 13:00:00 13:00:00 t; MEGGAN HARRY M.D. Multi-Speci ity of Devin BRODERICK [facility], Physici [address] ans 2017-02-23 2017-02-23 Outpatient Kamryn [facility] [id number] 09:00:00 23:59:00 Meggan Cruz 2017-02-22 2017-02-22 Appointmen ILDA [facility] [id number] Univers 10:45:00 10:45:00 t; DODWAD, OG-SHABANAZhao WORKMAN M.D., M.D. Physici ans 2017-02-05 2017-02-05 Appointmen ANABEL, PARUL UTP [id number] Univers 08:30:00 08:30:00 t; Devin PIZANO it y of Angelina LITTLE Physici M.D. ans 2017-01-29 2017-01-29 Outpatient Gillianhir, PL [facility] [id number] 04:02:00 07:08:00 Ambica 06 2017-01-26 2017-01-27 Outpatient Anabel, [facility] [id number] 06:19:00 13:51:00 Harinder Shai Webster 2017-01-26 2017-01-26 Appointmen ANABEL, RUST UTP [id number] Univers 10:00:00 10:00:00 t; Devin PIZANO it y of Angelina LITTLE Physici M.D. ans 2017-01-08 2017-01-08 Appointmen [facility]UL [facility] [id number] Univers 10:30:00 10:30:00 t; Devin PIZANO [facility] it y of [place], [place] Arben PIZANO M.D. ans 2017-01-04 2017-01-04 Appointmen PARUL GONSALES UTP [id number] Univers 13:45:00 13:45:00 t; AGNIESZKA GONSALES ity of SHAH-NAWAZ M.D. [place], M.D. Physici ans 2016-12-26 2016-12-26 Appointmen PARUL HARRY UTP [id number] Univers 13:00:00 13:00:00 t; MEGGAN HARRY M.D. ity of SARA, M.D. [place] Physici ans 2016-08-24 2016-08-24 Appointmen PARUL GONSALES UTP [id number] Univers 10:45:00 10:45:00 t; AGNIESZKA GONSALES ity of SHAH-NA[place]Z M.D. [place], M.D. Physici ans 2016-08-17 2016-08-17 Appointmen PARUL GONSALES UTP [id number] Univers 10:45:00 10:45:00 t; AGNIESZKA GONSALES ity of SHAH-SAHBANA M.D. [place] , M.D. Physici ans 2016-06-13 2016-06-13 Appointmen PARUL HYMAN [id number] Univers 10:30:00 10:30:00 t; RADHA HYMAN M.D. i ty of Devin GARCIA [place] Physici ans 2016-05-25 2016-05-25 Appointmen PARUL GONSALES [id number] Univers 10:15:00 10:15:00 t; AGNIESZKA GONSALES ity of AGNIESZKA Alfaro M.D. Physici ans 2016-04-13 2016-04-13 AppointPARUL Garcia [id number] Univers 11:15:00 11:15:00 t; AGNIESZKA GONSALES ity of AGNIESZKA Alfaro M.D. Physici ans 2016-03-30 2016-03-30 Appointmen PARUL GONSALES [id number] Univers 10:15:00 10:15:00 t; AGNIESZKA GONSALES ity of AGNIESZKA Alfaro M.D. Physici ans 2016-03-17 2016-03-24 Outpatient Piter MHTIRR TIRR [id number] 17:46:00 10:30:00 Prathap 02 Vidal 2016-02-21 2016-03-17 Outpatient Gabriela Og [facility] [id number] 05:09:00 16:45:00 A 00 2016-02-21 2016-02-21 AppointPARUL Garcia UTP [id number] Univers 07:30:00 07:30:00 t; AGNIESZKA GONSALES ity of AGNIESZKA Alfaro M.D. Physici ans 2016-02-15 2016-02-15 Outpatient Liliana Henri [facility] [id number] 08:08:00 23:59:00 Thomas 2016-02-15 2016-02-15 AppointPARUL Garcia [id number] Univers 11:15:00 11:15:00 t; AGNIESZKA GONSALES ity of AGNIESZKA Alfaro M.D. Physici ans 2016-01-18 2016-01-18 [facility] PARUL GONSALES UTP [id number] Univers 13:15:00 13:15:00 t; AGNIESZKA GONSALES ity of [place]IES[place] Lisa Physici ans 2016-01-10 2016-01-10 [facility] ANALY Gonsales [facility] [id number] 09:23:00 23:59:00 Agnieszka 01 M 2016-01-04 2016-01-04 [facility] ILDA, PARUL UTP [id number] Univers 10:45:00 10:45:00 t; AGNIESZKA GONSALES ity of [place] Alfar[place] M.D. Physici ans 2015-12-30 2015-12-30 [facility] PARUL GONSALES UTP [id number] Univers 10:15:00 10:15:00 t; AGNIESZKA GONSALES ity of [place] Lisa Physici ans 2015-11-18 2015-11-18 [facility] PARUL GONSALES UTP [id number] Univers 09:15:00 09:15:00 t; AGNIESZKA GONSALES ity of [place]far[place] Lisa Physici ans 2015-11-10 2015-11-10 [facility] ANALY Gonsales JOHN [id number] 13:54:00 23:59:00 Agnieszka 00 M 2015-11-03 2015-11-03 [facility] ILDA, PARUL UTP [id number] Univers 08:20:00 08:20:00 t; AGNIESZKA GONSALES ity of AGNIESZKA Alfaro M.D. Physici ans 2015-10-28 2015-10-28 [facility], PARUL UTP [id number] [facility] 09:30:00 09:30:00 t; AGNIESZKA GONSALES ity of OG-Devin Sawyer M.D. 2015-07-14 2015-07-14 Appointmen MITCHELL PARUL RUST [id number] Univers 10:30:00 10:30:00 t; Devin DEMARCO it y of Angelina MEDRANO Physici M.D. ans Results Test Test Test Results Result Source Description Time Comments Comments IMMUNOLOGY 2019-10- Not Detected (11/19/19 Mem orial 26 8:50 AM) Indra 13:50:00 MRI Spine 2019-10- PROCEDURE [facility] 10 INFORMATION:Exam: MR Aaron s contrast [id number] 13:16:00 Lumbar Spine Without Physicians Contrast.Exam date and time: 11/03/2019 1:39 PMAge: 79 years oldClinical indication: Low back pain; Arthrodesis status; Additional info: /m54.5low bacjk pain, z98.1 status post spinal arthrodesis and r26.81 unsteady gaitTECHNIQUE:Imaging protocol: Multiplanar magnetic resonance images of the lumbar spinewithout intravenous contrast.COMPARISON:SPINE SACRUM WO CONTRAST MRI 03/17/2016 8:44 AMFINDINGS:Vertebrae: No acute fracture. The marrow signal is unremarkable for age.Moderate loss of disc height from T11-L4 levels with endplate degenerativechanges. L3-S1 posterior lumbar interbody fusion, hardware cannot be assessedon MRI. No evidence of pseudomeningocele. There is a small fluid collection atL4-L5 levels measuring 1 cm in axial plane. L5-S1 anterior lumbar fusionhardware is noted within interposition graft that appears to be wellincorporated although assessment is limited on MRI. No interposition grafts atL3-L4 and L4-L5.Spinal cord: The conus medullaris terminates normally at L1. The cauda equinanerve roots are unremarkable. Changes by level:T11-T12: Small disc osteophyte complex and facet arthrosis with mild canal andforaminal stenosis.T12-L1: Small disc osteophyte complex and mild facet arthrosis with mildforaminal stenosis.L1-L2: Moderate-sized disc bulge osteophyte complex asymmetric to the leftandmild facet arthrosis. Mild central canal stenosis asymmetrically prominent onthe left side. Mild left foraminal stenosis.L2-L3: 5 mm retrolisthesis and moderate-sized disc osteophyte complex. Mildfacet arthrosis. Moderate stenosis of the central canal and foramina.L3-L4: 2 mm retrolisthesis and moderate-sized disc osteophyte complex with mildforaminal stenosis. Posterior decompression posterior fusion. No recurrentcentral canal stenosis.L4-L5: Posterior decompression and fusion. 3 mm anterolisthesis and small discosteophyte complex. Facet hypertrophic changes. No stenosis or arachnoiditis.L5-S1: Anterior and posterior fusion. Posterior decompression. No recurrentcanal or lateral recess stenosis. Mild foraminal stenosis.IMPRESSION:1. L3-S1 : Posterior decompression and posterior fusion without recurrenthigh-grade stenosis, arachnoiditis or pseudomeningocele.2. L2-L3 : Moderate stenosis of the central canal and foramina. Completedetails as above3. L1-L2: Mild central canal stenosis and mild left foraminal stenosis.4. Mild degenerative changes in the visualized thoracic spine.COMMENTS:5 lumbar type vertebral bodies are presumed to be present.Olga Farmer MD On 11/03/2019 18:32:53; [id number]--Tctz by: Olga AtkinsapDictated Date/time: 11/03/19 18:32Electronically Signed by: Olga Atkins 11/02/2017:32FINAL REPORT MRI Spine 2019-10- PROCEDURE [facility] wo 10 INFORMATION:Exam: MR Ethan as contrast [id number] 13:16:00 Thoracic Spine Without Physicians ContrastExam date and time: 11/03/2019 1:39 PMAge: 79 years oldClinical indication: Other spondylosis with myelopathy, thoracic region;Additional info: /m47.14 thoracic myelopahty and r26.81 unsteady gaitTECHNIQUE:Imaging protocol: Multiplanar magnetic resonance images of the thoracic spinewithout intravenous contrast.COMPARISON:SPINE SACRUM WO CONTRAST MRI 03/17/2016 8:44 AMFINDINGS:Vertebrae: There is no compression fracture deformity or osseous metastaticdisease.Spinal cord: Normal signal. No cord compression.T1-T2: No significant disc disease. No significant spinal canal stenosis.T2-T3: No significant disc disease. No significant spinal canal stenosis.T3-T4: No significant disc disease. No significant spinal canal stenosis.T4-T5: No significant disc disease. No significant spinal canal stenosis.T5-T6: No significant disc disease. No significant spinal canal stenosis.T6-T7: No significant disc disease. No significant spinal canal stenosis.T7-T8: No significant disc disease. No significant spinal canal stenosis.T8-T9: At the T8-9 disc space which is desiccated there is a 2 mm right lateralprotrusion without central canal stenosis is anterior spondylosis and Modic 2signal alteration.T9-T10: At the T9-10 disc space which is desiccated there is a 2 mm bridgingosteophyte with minimal right foraminal stenosis is anterior spondylosis.T10-T11: At the T10-11 disc space which is desiccated there is a 3 mmbroad-based bridging osteophyte and hypertrophic change to ligamentum flavumand facet joints with minimal to moderate spinal stenosis and bilateralforaminal stenosis.T11-T12: At the T11-12 disc space which is desiccated there is a 1 mm bridgingosteophyte without central or foraminal stenosis.At the T12-L1 disc space is a central Schmorl's node anterior spondylosis withModic 2 signal alteration. There is a 2 mm left lateralprotrusion/subliga mentous extrusion without spinal stenosis.Soft tissues: There is no pleural effusion or paravertebral mass intensity. There is minimal atrophic changes of the spinae erector muscles.IMPRESSION: Multilevel discogenic disease is present without central canalstenosis.Dakotah Carter MD On 11/04/2019 08:43:44; [id number]--Qupx by: Dakotah Carter MDDictated Date/time: 11/04/19 08:43Electronically Signed by: Dakotah Carter MD 11/04/2007:43FINAL REPORT MRI Spine 2019-10- PROCEDURE [facility] wo 10 INFORMATION:Exam: MR Ethan as contrast [id number] 13:16:00 Cervical Spine Without Physicians ContrastExam date and time: 11/03/2019 1:39 PMAge: 79 years oldClinical indication: Disease of spinal cord, unspecified; Additional info:/g95.9 cervical myelopahty and r26.81 unsteady gait. Include 45 degree cuts oncspine.TECHNIQUE:Imagin g protocol: Multiplanar magnetic resonance images of the cervical spinewithout contrast.COMPARISON:SPINE CERVICAL WO CONTRAST MRI 04/16/2018 11:11 AMFINDINGS:Vertebrae: There is no fracture osseous metastatic disease. There isdegenerative change of the C1-C2 articulation.Spinal cord: There is no myleomalacia or cord edema. There is no tonsillarectopia. There is normal flow from both vertebral arteries.C2-C3: At the C2-C3 disc space, there is minimal degenerative change of theright facet joint.C3-C4: At the C3-C4 disc space , there are progressive degenerative changeswith a 2 mm anterolisthesis, central protrusion and broadening of posteriorlongitudinal ligament. There is hypertrophic change to left uncovertebral jointwith progressive severe left foraminal stenosis and degenerative change of theleft facet joint.C4-C5: At the C4-C5 disc space, there is progressive degenerative changes withdisc space narrowing. There is a 3 mm broad-based bridging osteophyte andhypertrophic change the uncovertebral joints and ligamentum flavum with severeleft and moderate right foraminal stenosis and minimal to moderate centralcanal stenosis.C5-C6: At the C5-C6 disc space which is further desiccated and narrowed, thereis a 2-3 mm broad-based bridging osteophyte and hypertrophic change ofuncovertebral joints with moderate to severe bilateral foraminal stenosis,noted previously.C6-C7: At the C6-C7 disc space, there is a 2 mm bridging osteophyte andhypertrophic change to left uncovertebral joint with minimal to moderatebilateral distal foraminal stenosis which is stable.C7-T1: At the C7-T1 disc space, there is no central or foraminal stenosis.There is minimal degenerative change of left facet joint.Vertebral arteries: Expected flow voids in the vertebral arteries.Soft tissues: The prevertbral soft tissues are normal.IMPRESSION: Progressive discogenic disease is present as described.Dakotah Carter MD On 11/04/2019 08:53:06; [id number]--Gyph by: Dakotah Carter MDDictated Date/time: 11/04/19 08:53Electronically Signed by: Dakotah Carter MD 11/04/2007:53FINAL REPORT Testosterone level, free and total, male 2019-10-28 09:02:00 Test Item Value Reference Range Interpretation Comme nts Testosterone (test code = <3 264-916 L Ad ult male reference interval 2986-8) is based on a p opulation ofhealthy nonob vic males (BMI <30) between 19 and 39 years old.yuval Pena.al. JCEM 2017,102;1161-1 173. PMID: 36783785. Testosterone, free (test <0.2 6.6-18.1 L code = 2991-8) WILMER (test code = WILMRE) Performed at: 01 - [facility] [address] [id number] Director: Cristian Valdez MD, Phone: [phone] at: - [facility] [id number] Director: Wilson Regan MD, Phone: [phone] Lab Interpretation (test Abnormal code = 81497-4) Juancho Adan, [id number] 08:32:00 Test Item Value Reference Interpretation Comments Range PSA, <0.014 0-4 Jassi ECLIA ultrasensitive methodology.A ccording to (test code = the [place] ological 02679-5) Association, Se rum PSA shoulddecrease and remain at undetectable levels after radicalprostate ctomy. The AUA defines bio chemical recurrence as a n initialPSA valu e 0.200 ng/mL or greate r followed by a subsequentconfi rmatory PSA value 0.200 ng/mL or greater.Values obtained with different assay methods or kits cannot be usedinterchange ably. Results cannot be interpreted as absolute evidenceof the presence or absence of m alignant disease. WILMER (test code = Performed at: WILMER) [facility] [id number] [place], [place] [id number] Director: Cristian Valdez MD, Phone: [phone] [employer][U] XRAY SPINE LUMBOSACRAL 2 OR 3 VWS [id number] 10:01:00 Images acquired, not reported on this accession number.[facility] [id number] 07:50:06 Test Item Value Reference Range Interpretation Comments Course ID (test code = C1 5706) Course Start Date (test 2019-08-01 @12:24 code = 5707) Treatment Elapsed Days 49 (test code = 5709) Course Intent (test code Curative = 5686) Treatment Dates (test Course End Date: code = 5685) 2019-10-21 @07:49First Treatment Date: 2019-08-01 @14:51Last Treatment Date: 2019-09-19 @08:39 Reference Point ID (test Prostate code = 5710) Dosage Given to Date in 14.806207 Gy (test code = 5711) Plan ID (test code = HDR Prostate 5713) Plan Name (test code = HDR Prostate 5714) Fractions Treated to Date (test code = 5715) Prescribed Dose Per 15 Fraction in Gy (test code = 5716) Prescription Dose in cGy 1500 (test code = 5717) [facility] [id number] 08:41:34 Test Item Value Reference Range Interpretation Comments Course ID (test code = C1 5706) Course Start Date (test 2019-08-01 @12:24 code = 5707) Treatment Elapsed Days 49 (test code = 5709) Course Intent (test code Curative = 5686) Treatment Dates (test First Treatment Date: code = 5685) 2019-08-01 @14:51Last Treatment Date: 2019-09-19 @08:39 Reference Point ID (test Pelvis code = 5710) Dosage Given to Date in 46.52998801 Gy (test code = 5711) Session Dosage Given in 2.58780133 Gy (test code = 5712) Plan ID (test code = Pelvis 5713) Plan Name (test code = Pelvis 5714) Fractions Treated to Date (test code = 5715) Prescribed Dose Per 2 Fraction in Gy (test code = 5716) Prescription Dose in cGy 4600 (test code = 5717) [facility] [id number] 07:49:53 Test Item Value Reference Range Interpretation Comments Course ID (test code = C1 5706) Course Start Date (test 2019-08-01 @12:24 code = 5707) Treatment Elapsed Days 48 (test code = 5709) Course Intent (test code Curative = 5686) Treatment Dates (test First Treatment Date: code = 5685) 2019-08-01 @14:51Last Treatment Date: 2019-09-18 @07:47 Reference Point ID (test Pelvis code = 5710) Dosage Given to Date in 44.51497329 Gy (test code = 5711) Session Dosage Given in 2.72083911 Gy (test code = 5712) Plan ID (test code = Pelvis 5713) Plan Name (test code = Pelvis 5714) Fractions Treated to Date (test code = 5715) Prescribed Dose Per 2 Fraction in Gy (test code = 5716) Prescription Dose in cGy 4600 (test code = 5717) [facility] [id number] 08:24:59 Test Item Value Reference Range Interpretation Comments Course ID (test code = C1 5706) Course Start Date (test 2019-08-01 @12:24 code = 5707) Treatment Elapsed Days 47 (test code = 5709) Course Intent (test code Curative = 5686) Treatment Dates (test First Treatment Date: code = 5685) 2019-08-01 @14:51Last Treatment Date: 2019-09-17 @08:23 Reference Point ID (test Pelvis code = 5710) Dosage Given to Date in 42.84717259 Gy (test code = 5711) Session Dosage Given in 2.86090517 Gy (test code = 5712) Plan ID (test code = Pelvis 5713) Plan Name (test code = Pelvis 5714) Fractions Treated to Date (test code = 5715) Prescribed Dose Per 2 Fraction in Gy (test code = 5716) Prescription Dose in cGy 4600 (test code = 5717) [facility] [id number] 08:28:46 Test Item Value Reference Range Interpretation Comments Course ID (test code = C1 5706) Course Start Date (test 2019-08-01 @12:24 code = 5707) Treatment Elapsed Days 46 (test code = 5709) Course Intent (test code Curative = 5686) Treatment Dates (test First Treatment Date: code = 5685) 2019-08-01 @14:51Last Treatment Date: 2019-09-16 @08:27 Reference Point ID (test Pelvis code = 5710) Dosage Given to Date in 40.0710896 Gy (test code = 5711) Session Dosage Given in 2.63482430 Gy (test code = 5712) Plan ID (test code = Pelvis 5713) Plan Name (test code = Pelvis 5714) Fractions Treated to Date (test code = 5715) Prescribed Dose Per 2 Fraction in Gy (test code = 5716) Prescription Dose in cGy 4600 (test code = 5717) [facility] [id number] 08:37:20 Test Item Value Reference Range Interpretation Comments Course ID (test code = C1 5706) Course Start Date (test 2019-08-01 @12:24 code = 5707) Treatment Elapsed Days 45 (test code = 5709) Course Intent (test code Curative = 5686) Treatment Dates (test First Treatment Date: code = 5685) 2019-08-01 @14:51Last Treatment Date: 2019-09-15 @08:35 Reference Point ID (test Pelvis code = 5710) Dosage Given to Date in 38.60177439 Gy (test code = 5711) Session Dosage Given in 2.22406657 Gy (test code = 5712) Plan ID (test code = Pelvis 5713) Plan Name (test code = Pelvis 5714) Fractions Treated to Date (test code = 5715) Prescribed Dose Per 2 Fraction in Gy (test code = 5716) Prescription Dose in cGy 4600 (test code = 5717) [facility] [id number] 08:32:38 Test Item Value Reference Range Interpretation Comments Course ID (test code = C1 5706) Course Start Date (test 2019-08-01 @12:24 code = 5707) Treatment Elapsed Days 42 (test code = 5709) Course Intent (test code Curative = 5686) Treatment Dates (test First Treatment Date: code = 5685) 2019-08-01 @14:51Last Treatment Date: 2019 @08:31 Reference Point ID (test Pelvis code = 5710) Dosage Given to Date in 36.31972328 Gy (test code = 5711) Session Dosage Given in 2.75857183 Gy (test code = 5712) Plan ID (test code = Pelvis 5713) Plan Name (test code = Pelvis 5714) Fractions Treated to Date (test code = 5715) Prescribed Dose Per 2 Fraction in Gy (test code = 5716) Prescription Dose in cGy 4600 (test code = 5717) [facility] [id number] 08:35:29 Test Item Value Reference Range Interpretation Comments Course ID (test code = C1 5706) Course Start Date (test 2019-08-01 @12:24 code = 5707) Treatment Elapsed Days 41 (test code = 5709) Course Intent (test code Curative = 5686) Treatment Dates (test First Treatment Date: code = 5685) 2019-08-01 @14:51Last Treatment Date: 2019-09-11 @08:33 Reference Point ID (test Pelvis code = 5710) Dosage Given to Date in 34.80765109 Gy (test code = 5711) Session Dosage Given in 2.62039923 Gy (test code = 5712) Plan ID (test code = Pelvis 5713) Plan Name (test code = Pelvis 5714) Fractions Treated to Date (test code = 5715) Prescribed Dose Per 2 Fraction in Gy (test code = 5716) Prescription Dose in cGy 4600 (test code = 5717) [facility] [id number] 08:31:14 Test Item Value Reference Range Interpretation Comments Course ID (test code = C1 5706) Course Start Date (test 2019-08-01 @12:24 code = 5707) Treatment Elapsed Days 40 (test code = 5709) Course Intent (test code Curative = 5686) Treatment Dates (test First Treatment Date: code = 5685) 2019-08-01 @14:51Last Treatment Date: 2019-09-10 @08:29 Reference Point ID (test Pelvis code = 5710) Dosage Given to Date in 32.25823059 Gy (test code = 5711) Session Dosage Given in 2.00262376 Gy (test code = 5712) Plan ID (test code = Pelvis 5713) Plan Name (test code = Pelvis 5714) Fractions Treated to Date (test code = 5715) Prescribed Dose Per 2 Fraction in Gy (test code = 5716) Prescription Dose in cGy 4600 (test code = 5717) [facility] [id number] 08:35:49 Test Item Value Reference Range Interpretation Comments Course ID (test code = C1 5706) Course Start Date (test 2019-08-01 @12:24 code = 5707) Treatment Elapsed Days 39 (test code = 5709) Course Intent (test code Curative = 5686) Treatment Dates (test First Treatment Date: code = 5685) 2019-08-01 @14:51Last Treatment Date: 2019-09-09 @08:34 Reference Point ID (test Pelvis code = 5710) Dosage Given to Date in 30.29063061 Gy (test code = 5711) Session Dosage Given in 2.34404887 Gy (test code = 5712) Plan ID (test code = Pelvis 5713) Plan Name (test code = Pelvis 5714) Fractions Treated to Date (test code = 5715) Prescribed Dose Per 2 Fraction in Gy (test code = 5716) Prescription Dose in cGy 4600 (test code = 5717) [facility] [id number] 08:34:58 Test Item Value Reference Range Interpretation Comments Course ID (test code = C1 5706) Course Start Date (test 2019-08-01 @12:24 code = 5707) Treatment Elapsed Days 38 (test code = 5709) Course Intent (test code Curative = 5686) Treatment Dates (test First Treatment Date: code = 5685) 2019-08-01 @14:51Last Treatment Date: 2019-09-08 @08:33 Reference Point ID (test Pelvis code = 5710) Dosage Given to Date in 28.09440881 Gy (test code = 5711) Session Dosage Given in 2.50604982 Gy (test code = 5712) Plan ID (test code = Pelvis 5713) Plan Name (test code = Pelvis 5714) Fractions Treated to Date (test code = 5715) Prescribed Dose Per 2 Fraction in Gy (test code = 5716) Prescription Dose in cGy 4600 (test code = 5717) [facility] [id number] 08:35:51 Test Item Value Reference Range Interpretation Comments Course ID (test code = C1 5706) Course Start Date (test 2019-08-01 @12:24 code = 5707) Treatment Elapsed Days 35 (test code = 5709) Course Intent (test code Curative = 5686) Treatment Dates (test First Treatment Date: code = 5685) 2019-08-01 @14:51Last Treatment Date: 2019-09-05 @08:33 Reference Point ID (test Pelvis code = 5710) Dosage Given to Date in 26.25037284 Gy (test code = 5711) Session Dosage Given in 2.91756198 Gy (test code = 5712) Plan ID (test code = Pelvis 5713) Plan Name (test code = Pelvis 5714) Fractions Treated to Date (test code = 5715) Prescribed Dose Per 2 Fraction in Gy (test code = 5716) Prescription Dose in cGy 4600 (test code = 5717) [facility] [id number] 08:43:57 Test Item Value Reference Range Interpretation Comments Course ID (test code = C1 5706) Course Start Date (test 2019-08-01 @12:24 code = 5707) Treatment Elapsed Days 34 (test code = 5709) Course Intent (test code Curative = 5686) Treatment Dates (test First Treatment Date: code = 5685) 2019-08-01 @14:51Last Treatment Date: 2019-09-04 @08:42 Reference Point ID (test Pelvis code = 5710) Dosage Given to Date in 24.10141597 Gy (test code = 5711) Session Dosage Given in 2.95295527 Gy (test code = 5712) Plan ID (test code = Pelvis 5713) Plan Name (test code = Pelvis 5714) Fractions Treated to Date (test code = 5715) Prescribed Dose Per 2 Fraction in Gy (test code = 5716) Prescription Dose in cGy 4600 (test code = 5717) [facility] [id number] 08:33:12 Test Item Value Reference Range Interpretation Comments Course ID (test code = C1 5706) Course Start Date (test 2019-08-01 @12:24 code = 5707) Treatment Elapsed Days 33 (test code = 5709) Course Intent (test code Curative = 5686) Treatment Dates (test First Treatment Date: code = 5685) 2019-08-01 @14:51Last Treatment Date: 2019-09-03 @08:31 Reference Point ID (test Pelvis code = 5710) Dosage Given to Date in 22.83217591 Gy (test code = 5711) Session Dosage Given in 2.46129901 Gy (test code = 5712) Plan ID (test code = Pelvis 5713) Plan Name (test code = Pelvis 5714) Fractions Treated to Date (test code = 5715) Prescribed Dose Per 2 Fraction in Gy (test code = 5716) Prescription Dose in cGy 4600 (test code = 5717) [facility] [id number] 08:35:09 Test Item Value Reference Range Interpretation Comments Course ID (test code = C1 5706) Course Start Date (test 2019-08-01 @12:24 code = 5707) Treatment Elapsed Days 32 (test code = 5709) Course Intent (test code Curative = 5686) Treatment Dates (test First Treatment Date: code = 5685) 2019-08-01 @14:51Last Treatment Date: 2019-09-02 @08:33 Reference Point ID (test Pelvis code = 5710) Dosage Given to Date in 20.0227017 Gy (test code = 5711) Session Dosage Given in 2.47571359 Gy (test code = 5712) Plan ID (test code = Pelvis 5713) Plan Name (test code = Pelvis 5714) Fractions Treated to Date (test code = 5715) Prescribed Dose Per 2 Fraction in Gy (test code = 5716) Prescription Dose in cGy 4600 (test code = 5717) [facility] [id number] 08:34:00 Test Item Value Reference Range Interpretation Comments Course ID (test code = C1 5706) Course Start Date (test 2019-08-01 @12:24 code = 5707) Treatment Elapsed Days 31 (test code = 5709) Course Intent (test code Curative = 5686) Treatment Dates (test First Treatment Date: code = 5685) 2019-08-01 @14:51Last Treatment Date: 2019-09-01 @08:32 Reference Point ID (test Pelvis code = 5710) Dosage Given to Date in 18.68632603 Gy (test code = 5711) Session Dosage Given in 2.13615462 Gy (test code = 5712) Plan ID (test code = Pelvis 5713) Plan Name (test code = Pelvis 5714) Fractions Treated to Date (test code = 5715) Prescribed Dose Per 2 Fraction in Gy (test code = 5716) Prescription Dose in cGy 4600 (test code = 5717) [facility] [id number] 08:58:21 Test Item Value Reference Range Interpretation Comments Course ID (test code = C1 5706) Course Start Date (test 2019-08-01 @12:24 code = 5707) Treatment Elapsed Days 28 (test code = 5709) Course Intent (test code Curative = 5686) Treatment Dates (test First Treatment Date: code = 5685) 2019-08-01 @14:51Last Treatment Date: 2019-08-29 @08:56 Reference Point ID (test Pelvis code = 5710) Dosage Given to Date in 16.98601295 Gy (test code = 5711) Session Dosage Given in 2.46336026 Gy (test code = 5712) Plan ID (test code = Pelvis 5713) Plan Name (test code = Pelvis 5714) Fractions Treated to Date (test code = 5715) Prescribed Dose Per 2 Fraction in Gy (test code = 5716) Prescription Dose in cGy 4600 (test code = 5717) [facility] [id number] 08:55:10 Test Item Value Reference Range Interpretation Comments Course ID (test code = C1 5706) Course Start Date (test 2019-08-01 @12:24 code = 5707) Treatment Elapsed Days 27 (test code = 5709) Course Intent (test code Curative = 5686) Treatment Dates (test First Treatment Date: code = 5685) 2019-08-01 @14:51Last Treatment Date: 2019-08-28 @08:53 Reference Point ID (test Pelvis code = 5710) Dosage Given to Date in 14.22425485 Gy (test code = 5711) Session Dosage Given in 2.07694971 Gy (test code = 5712) Plan ID (test code = Pelvis 5713) Plan Name (test code = Pelvis 5714) Fractions Treated to Date (test code = 5715) Prescribed Dose Per 2 Fraction in Gy (test code = 5716) Prescription Dose in cGy 4600 (test code = 5717) [place] [facility] OPVOBSXJJ3689-44-44 08:35:23 Test Item Value Reference Range Interpretation Comments Course ID (test code = C1 5706) Course Start Date (test 2019-08-01 @12:24 code = 5707) Treatment Elapsed Days 26 (test code = 5709) Course Intent (test code Curative = 5686) Treatment Dates (test First Treatment Date: code = 5685) 2019-08-01 @14:51Last Treatment Date: 2019-08-27 @08:33 Reference Point ID (test Pelvis code = 5710) Dosage Given to Date in 12.04230288 Gy (test code = 5711) Session Dosage Given in 2.98822580 Gy (test code = 5712) Plan ID (test code = Pelvis 5713) Plan Name (test code = Pelvis 5714) Fractions Treated to Date (test code = 5715) Prescribed Dose Per 2 Fraction in Gy (test code = 5716) Prescription Dose in cGy 4600 (test code = 5717) [facility] HBLRWMHJM6985-48-02 12:15:40 Test Item Value Reference Range Interpretation Comments Course ID (test code = C1 5706) Course Start Date (test 2019-08-01 @12:24 code = 5707) Treatment Elapsed Days 25 (test code = 5709) Course Intent (test code Curative = 5686) Treatment Dates (test First Treatment Date: code = 5685) 2019-08-01 @14:51Last Treatment Date: 2019-08-26 @12:14 Reference Point ID (test Pelvis code = 5710) Dosage Given to Date in 10.72045192 Gy (test code = 5711) Session Dosage Given in 2.94770930 Gy (test code = 5712) Plan ID (test code = Pelvis 5713) Plan Name (test code = Pelvis 5714) Fractions Treated to Date (test code = 5715) Prescribed Dose Per 2 Fraction in Gy (test code = 5716) Prescription Dose in cGy 4600 (test code = 5717) [facility] BKFZDVYIC2139-03-66 10:11:00 Test Item Value Reference Range Interpretation Comments Course ID (test code = C1 5706) Course Start Date (test 2019-08-01 @12:24 code = 5707) Treatment Elapsed Days 24 (test code = 5709) Course Intent (test code Curative = 5686) Treatment Dates (test First Treatment Date: code = 5685) 2019-08-01 @14:51Last Treatment Date: 2019-08-25 @10:09 Reference Point ID (test Pelvis code = 5710) Dosage Given to Date in 8.33992295 Gy (test code = 5711) Session Dosage Given in 2.06101547 Gy (test code = 5712) Plan ID (test code = Pelvis 5713) Plan Name (test code = Pelvis 5714) Fractions Treated to 4 of Date (test code = 5715) Prescribed Dose Per 2 Fraction in Gy (test code = 5716) Prescription Dose in cGy 4600 (test code = 5717) [facility] BURDYIZNQ9190-78-23 08:36:03 Test Item Value Reference Range Interpretation Comments Course ID (test code = C1 5706) Course Start Date (test 2019-08-01 @12:24 code = 5707) Treatment Elapsed Days 21 (test code = 5709) Course Intent (test code Curative = 5686) Treatment Dates (test First Treatment Date: code = 5685) 2019-08-01 @14:51Last Treatment Date: 2019-08-22 @08:33 Reference Point ID (test Pelvis code = 5710) Dosage Given to Date in 6.34290742 Gy (test code = 5711) Session Dosage Given in 2.42006501 Gy (test code = 5712) Plan ID (test code = Pelvis 5713) Plan Name (test code = Pelvis 5714) Fractions Treated to 3 Date (test code = 5715) Prescribed Dose Per 2 Fraction in Gy (test code = 5716) Prescription Dose in cGy 4600 (test code = 5717) [place] MethodistFL > 1 Vgyi1517-29-81 08:48:38Hm Interface, Radiology Results 08/13/2019 8:51 AM CDTEXAMINATION: [place] > 1 HOURLOCATION: MAIN OR #2PROCEDURE: SEED IMPLANTSTART TIME: 0800FINISH TIME: 1000FLUORO TIME: 0 SEC DOSE: 0IMPRESSION:Fluoroscopy was requested in the Endoscopy Suite. Separate endoscopy report will be issued by the physician performing the procedure.[facility] NWUUSQAWR8667-42-18 15:08:27 Test Item Value Reference Range Interpretation Comments Course ID (test code = C1 5706) Course Start Date (test 2019-08-01 @12:24 code = 5707) Treatment Elapsed Days 0 (test code = 5709) Course Intent (test code Curative = 5686) Treatment Dates (test First Treatment Date: code = 5685) 2019-08-01 @14:51Last Treatment Date: 2019-08-01 @14:59 Reference Point ID (test Prostate code = 5710) Dosage Given to Date in 14.953963 Gy (test code = 5711) Session Dosage Given in 14.648545 Gy (test code = 5712) Plan ID (test code = HDR Prostate 5713) Fractions Treated to 1 of 1 Date (test code = 5715) Prescribed Dose Per 15 Fraction in Gy (test code = 5716) Prescription Dose in cGy 1500 (test code = 5717) [facility] LuciistPOC zybggol0371-08-75 10:52:17 Test Item Value Reference Range Interpretation Comments POC glucose (test code 118 mg/dL 65-99 H Opera tor Name: = 36059-6) Richards Samira Device ID: [id number] able: [facility] Notified saw tailer Interpretation Abnormal (test code = 65674-5) [facility] MethodistType and lanzgi8424-78-83 08:23:00 Test Item Value Reference Range Interpretation Comments ABO grouping (test code = 883-9) B Rh type (test code = 22564-7) POS Antibody screen (gel) (test code = NEG 890-4) [place] VermaPuwqdhocbNxhztb1471-88-31 08:17:55Tsering Chung 08/01/2019 8:18 AMAirwayPerformed by: Tsering ChungAuthorizedby: Anh Paez MD Location: ORUrgency: ElectiveDifficult Airway: No Performed by: resident/CARPENTER/AAPreoxygenated with 100% O2: Yes Mask Ventilation: Not attemptedFinal Airway Type: Endotracheal airwayFinal Endotracheal Airway: ETTCuffed: Yes Technique Used: Direct laryngoscopy Insertion Site: OralBlade Type: MillerLaryngoscope Blade/Videolaryngoscope Blade Size: 2ETT Size (mm): 8.0Cuff at minimum occlusion pressure: Yes Measured from: LipsETT to Lips (cm): 22PlacementVerified by: CO2 detection, direct visualization and equal breath sounds Laryngoscopic view: GradeI - full view of glottisModified RSI: Yes Number of Attempts at Approach: 1[facility] MethodistPotassium bncba3448-53-07 07:23:05 Test Item Value Reference Range Interpretation Comments Potassium (test code = 2823-3) 4.0 3.5- 5.0 mEq/L [facility] MethodistCOVID-19 qualitative ZSH1022-64-12 15:07:15 Test Item Value Reference Range Interpretation Comments Interpretation (test Negative results do code = 5216479) not preclude 2019-nCoV infection and should not be used as the sole basis for treatment or other patient management decisions. Negative results must be combined with clinical observations, patient history, and epidemiological information. COVID-19 qualitative Not-Detected Not-Detected PCR result (test code = 56084-1) COVID-19 qualitative See link below for C ase Number: PCR (test code = PDF Lab Report [id number]) [place] MethodistUrinalysis screen and microscopy, with reflex to culture 2019-07-24 13:13:19 Test Item Value Reference Range Interpretation Comments Specimen site (test code = Clean catch 5307601) Color, UA (test code = 5778-6) Yellow Appearance, UA (test code = Clear 5767-9) Specific gravity, UA (test code = 1.017 1.001-1.035 5811-5) pH, UA (test code = 5803-2) 6.0 5.0-8.5 Protein, UA (test code = 52911-5) Negative Negative Glucose, UA (test code = 22696-8) Negative Negative Ketones, UA (test code = 2514-8) Negative Negative Bilirubin, UA (test code = Negative Negative 5770-3) Blood, UA (test code = 5794-3) Negative Negative Nitrite, UA (test code = 5802-4) Negative Negative Urobilinogen, UA (test code = <2.0 <2.0 47757-9) Leukocyte esterase, UA (test code Negative Negative = 5799-2) WBC, UA (test code = 5821-4) <1 0- 1 /HPF RBC, UA (test code = 17491-5) 3 0- 5 /HPF Bacteria, UA (test code = None seen None seen 23139-4) Yeast, UA (test code = 89920-3) None seen Yeast with pseudohyphae, UA (test None seen code = 11759-1) [facility] MethodistUrine wikfrcf3618-06-59 13:12:29 Test Item Value Reference Range Interpretation Comments Urine culture (test SEE COMMENT Bacteriu kristina screen code = 1448236) negative. [facility] HnqnrywivCukylhgkjzev7213-95-82 13:07:20 Test Item Value Reference Range Interpretation Comments Testosterone (test code = 2986-8) <10 193-740 L Lab Interpretation (test code = Abnormal 18312-2) [facility] MethodistBasic metabolic czvjh6987-58-50 13:00:41 Test Item Value Reference Range Interpretation Comments Sodium (test code = 2951-2) 141 135- 148 mEq/L Potassium (test code = 2823-3) 5.3 3.5- 5.0 mEq/L H Chloride (test code = 2075-0) 99 98- 112 mEq/L CO2 (test code = 8-9) 28 24- 31 mEq/L Anion gap (test code = 52613-7) 14@ANIO 7- 15 mEq/L BUN (test code = 3094-0) 26 mg/dL 8-23 H Creatinine (test code = 2160-0) 1.08 mg/dL 0.7-1.2 Glucose (test code = 2345-7) 121 mg/dL 65-99 H Calcium (test code = 86389-3) 10.5 mg/dL 8.8-10.2 H Lab Interpretation (test code = Abnormal 81873-2) [place] MethodistEstimated LLX1741-01-20 13:00:41 Test Item Value Reference Range Interpretation Comments Estimated GFR (test 66 mL/min/1.73 m2 [facility] ory Units code = 5488) InterpretationG 1 >=90 Normal or highG2 60-89 Mildly etsmppyzyM0o 45-59 Mildly to mode rately etysxpjfwP3f 30-44 Moderately to severely decreasedG4 15-29 Severely decre asedG5 <15 Kidn ey failureThe eGFR was calculated devon chicas the Chronic Kidney Disease Epidemiology Co llaboration (CKD-EPI) equat ion. Interpretation is based on recommendations of the National Kidney Foundation-Kidn ey Disease Outcomes Qualit y Initiative (NKF-KDOQI) pub lished in 2014. [facility] MethodistCBC with platelet and qzlnlxuobahr7029-96-45 12:26:51 Test Item Value Reference Range Interpretation Comments WBC (test code = 11273-1) 10.93 4.50- 11.00 k/uL RBC (test code = 81689-1) 5.40 m/uL 4.4-6 HGB (test code = 718-7) 15.4 g/dL 14-18 HCT (test code = 4544-3) 48.1 % 41-51 MCV (test code = 787-2) 89.1 fL 82-100 MCH (test code = 785-6) 28.5 pg 27-34 MCHC (test code = 786-4) 32.0 g/dL 31-37 RDW - SD (test code = 46.2 fL 37-55 30875-0) MPV (test code = 07784-1) 8.4 fL 8.8-13.2 L Platelet count (test code 284 150- 400 k/uL = 05095-3) Nucleated RBC (test code 0.00 /100 WBC = 47435-8) Neutrophils (test code = 64.1 % 39-69 45482-2) Lymphocytes (test code = 28.8 % 25-45 81861-7) Monocytes (test code = 5.3 % 0-10 03950-1) Eosinophils (test code = 0.5 % 0-5 59622-2) Basophils (test code = 0.6 % 0-1 23260-4) Immature granulocytes 0.7 % 0-1 "Immat ure (test code = 66618-7) granul ocytes" (promyelocytes, myelocytes, metamyelocytes) Lab Interpretation (test Abnormal code = 22395-7) [facility] Woo Pre/Post Dc9249-74-64 21:23:22 Test Item Value Reference Range Interpretation Comments Ventricular rate (test 82 code = 253) Atrial rate (test code 82 = 255) WA interval (test code 158 = 266) QRSD interval (test 88 code = 260) QT interval (test code 380 = 264) QTC interval (test code 443 = 265) P axis 1 (test code = -36 267) QRS axis 1 (test code = -46 268) T wave axis (test code 30 = 270) EKG impression (test Unusual P axis, code = 273) possible ectopic atrial rhythm with occasional premature ventricular complexes-Left axis deviation-Abnormal ECG-No previous ECGs available-Electronical ly Signed By Saurabh Ramachandran MD (1982) on 04/21/2019 9:23:21 PM [place] Jain luchmybu9204-94-65 15:28:50 Test Item Value Reference Range Interpretation Comments Hepatitis C Ab (test code = Non-reactive Non-reactive 70718-0) [place] MethodistPartial thromboplastin time, ydtdrfcpb4825-05-25 12:10:04 Test Item Value Reference Range Interpretation Comments PTT (test code = 27.5 23.0- 36.0 [place] [address]-8) unfractionated heparin is61.0-112.0 se conds which corresponds to Anti-Xa0.3-0.7 U/ml. [place] MethodistProthrombin time with KKV9414-30-50 12:09:58 Test Item Value Reference Range Interpretation Comments Prothrombin time (test 13.7 11.5- 14.5 sec code = 5902-2) INR (test code = 1.0 The Interna tional 16142-1) Normalized Rati o (INR) is a therapeutic m onitoring tool for patien ts who are stable on oral anticoagulant t herapy. An INR of 2.0-3.0 is suggested for d eep vein thrombosis/pulm onary embolism. [place] MethodistComprehensive metabolic rlcko5027-09-92 12:03:18 Test Item Value Reference Range Interpretation Comments Sodium (test code = 139 135- 148 mEq/L 2951-2) Potassium (test code = 4.9 3.5- 5.0 mEq/L 2823-3) Chloride (test code = 98 98- 112 mEq/L 2075-0) CO2 (test code = 8-9) 28 24- 31 mEq/L Anion gap (test code = 13@ANIO 7- 15 mEq/L 86873-5) BUN (test code = 3094-0) 16 mg/dL 8-23 Creatinine (test code = 1.14 mg/dL 0.7-1.2 2160-0) Glucose (test code = 141 mg/dL 65-99 H 2345-7) Calcium (test code = 10.0 mg/dL 8.8-10.2 94433-7) Protein (test code = 7.4 g/dL 6.3-8.3 9994.6-7.0 2885-2) g/dL1 rixu7707.4-7.6 g/dL7 months-0pxiv837 .1- 7.3 g/dL1-2 .6-7.5 g/dL>3 shxju846.0-8.0 g/vK75-6711947. 3-8 .3 g/dL Albumin (test code = 4.1 g/dL 3.5-5 1751-7) A/G ratio (test code = 1.2 0.7-3.8 1759-0) Alkaline phosphatase 106 U/L 40-129 (test code = 6768-6) AST (test code = 1920-8) 20 U/L 10-50 ALT (test code = 1742-6) 18 U/L 5-50 Total bilirubin (test 0.6 mg/dL 0-1.2 code = 1975-2) Lab Interpretation (test Abnormal code = 48958-4) [place] MethodistXR Chest 2 Di4895-45-65 11:53:57Hm Interface, Radiology Results 04/21/2019 11:57 AM CSTEXAMINATION: XR CHEST 2 VWCLINICAL HISTORY: Z01.818 Encounter for other preprocedural examination, PREOPCOMPARISON: NoneIMPRESSION:Lines: NoneLungs and pleura: No consolidations. No pleural effusion or pneumothorax.Heart and mediastinum: Normal appearance of cardiomediastinal silhouette. Bones: No suspicious osseous lesions. Bilateral shoulder prosthesis, partially visualized. Multilevel thoracic spondylosis.[facility]-[id number] MethodistCT Abdomen WWO Contrast, Pelvis W Uzikwhzf9793-72-26 11:59:28Hm Interface, Radiology Results - 03/25/2019 12:02 PM CSTEXAMINATION: CT ABDOMEN WWO CONTRAST PELVIS W CONTRASTCLINICAL HISTORY: 78 yearsMale C61 Malignant neoplasm of prostate, pros ca stagin gTECHNIQUE: Helical CT of the abdomen and pelvis was obtained pre- and post administration of iodinated contrast. Sagittal and coronal computerized reformatted images were also obtained. CT imaging was performed with iterative reconstruction techniques and/or automated exposure control to reduce radiation dose. COMPARISON: None.IMPRESSION:Lower Chest: There is dependent atelectasis at the lung bases.Abdomen:Liver: 3.3 cm left hepatic lobe cyst.Gallbladder/Biliary: Gallbladder is unremarkable. There is no biliary dilatation. Spleen: Normal in size.Pancreas: Unremarkable.Adrenal Glands: Unremarkable.Kidneys: Unremarkable.Vascular: The abdominal aorta is normal in caliber.Nodes: No regional adenopathy.Bowel: Status post sigmoidectomy with patent rectosigmoid anastomosis. The bowel is unobstructed. There is scattered descending colonic diverticulosis without acute diverticulitis. The appendix is normal in appearance. The bowel is unobstructed.Ascites/fluid collections: None.Pelvis:Lymphovascular: No pelvic adenopathy. Reproductive organs: 1.5 cm enhancing lesion in the right peripheral zone of the prostate gland ascending from the base to the apex is compatible with primary tumor.Bladder: Un remarkableOther: None.Musculoskeletal: Degenerative and post surgical change in the spine. SUMMARY:1.No evidence of metastatic disease. [facility]8BS5651WJFUoevzoc MethodistNM Bone Scan Whole Zhrh6856-98-17 11:52:18Hm Interface, Radiology Results 03/25/2019 11:55 AM CSTPROCEDURE: RI BONE SCAN WHOLE BODYINDICATION: Prostate cancer. COMPARISON: CT scan of the abdomen and pelvis performed on same day. TECHNIQUE: Approximately three hours after the IV administration of 25 mCi of Tc-99m labeled MDP, routine whole body planar bone scanning was performed in the anterior and posterior projections. FINDINGS: Degenerative and postoperative uptake in the spine. No suspicious uptake. Postoperative changes in both shoulders. No suspicious uptake in the pelvis. IMPRESSION: 1. No scintigraphic evidence of osseous metastatic disease.[facility]-3QJ3046PTDPpopnig MethodistPOC ozwxstyxvs3943-63-02 08:41:32 Test Item Value Reference Range Interpretation Comments POC creatinine (test 1.1 mg/dl 0.7-1.2 Operato r Name: Nate code = 92591-9) Emile I D: 370529 [place] IcsbjwsqeFMTXKSBSYM1009-58-09 10:53:0035.2[facility] HermannCARDIAC VJTHJJD3674-22-86 09:34:00<0.02[facility] HermannCHEM DUTCB4197-66-47 09:34:00 248[facility] HermannCHEM GPTFO6070-94-56 09:34:0016Mem[facility] HermannCHEM PANEL 2019-03-08 09:34:001.12[facility] HermannCHEM GADPS1819-75-89 09:34:50687Chaylswm HermannCHEM YKKVV4165-18-95 09:34:004.5[facility] HermannCHEM WZAFP7469-94-90 09:34:35927Sbveglba HermannCHEM MOSVX2276-60-98 09:34:0026[facility] HermannCHEM MJCAW4513-83-10 09:34:008.5[facility] HermannCHEM RHNDZ2868-75-34 09:34:008.8 [facility] HermannCHEM COXLL5684-28-53 09:34:0063[facility] HermannHEMATOLOGY 2019-03-08 09:34:009.5[facility] OzbtyqlRJVKOCFJAM4082-64-39 09:34:000.6[facility] WiykojbMBYYQXNIIE6609-36-69 09:34:000.0[facility] MrbdxobMSFYXBOVRM8999-57-72 09:34:0094.0[facility] OcdbonqRBSEBPYUFV9537-71-06 09:34:000.0[facility] [place] GKUOXRYNKC7530-27-96 09:34:005.0[facility] PlammjjTFMYKGIOEV6454-94-31 09:34:000.0 [facility] MtfirgfQZJCDPIYHP8351-67-91 09:34:001.0[facility] HermannHEMATOLOGY 2019-03-08 09:34:00Normal (03/08/19 3:34 AM)[facility] SeeqmgmYWWENRJTAH9982-12-65 09:34:00Normal (03/08/19 3:34 AM)[facility] DulrdxwTBSIBMINJN8791-45-12 09:34:00 10.1[facility] GbahtjcXAXAJSADAK3517-09-73 09:34:004.59[facility] HermannHEMATOLOGY 2019-03-08 09:34:0012.8[facility] PrqcxjiQEUURZRYKQ1220-42-97 09:34:0038.7[facility] JekejfgLVZXBVSAWD2648-60-76 09:34:0084.3[facility] AcitkbyNIOKKQFAXT7671-29-71 09:34:00 Test Item Value Reference Range Interpretation Comments MCH (test code = MCH) 27.9 pg 27.0-31.0 [facility] WpprbxcTTZWMFTMKX7377-30-08 09:34:0033.1[facility] HermannHEMATOLOGY 2019-03-08 09:34:0015.6[facility] LgmtyyjENEHWGNIIW8235-06-95 09:34:18828Sjznwjjb AoqrmnlYPEXPNEUBP0147-66-45 09:34:006.8[facility] OfguonsFHAKYI5297-99-85 09:34:00 Test Item Value Reference Range Interpretation Comments CHD Risk (test code = CHD Risk) 3.39 1 4.00-7.30 Memorial PlkokquMYANQJ0363-79-35 09:34:90926Mjxtpnxo FuvmafnYHOGIT6586-53-13 09:34:08154Ijmqfvcd CkurboaEURZSS9840-55-90 09:34:0046Memorial HermannLIPIDS 2019-03-08 09:34:0086[facility] CixoulzSAERNI5705-51-39 09:34:00 Test Item Value Reference Range Interpretation Comments VLDL (test code = VLDL) 24 1 [facility] HermannSPECIAL TZVZRKJDY0877-25-46 09:34:007.5[facility] HermannCARDIAC HTGEDIH8647-91-57 04:13:00<0.02[facility] HermannCARDIAC SUVPYGU8858-50-13 02:27:00<0.02[facility] HermannCARDIAC XMIQFGN4653-37-79 22:31:0051[facility] HermannCHEM IXYVS8366-92-46 22:31:17972Kuixcmnp HermannCHEM HGDTT4231-02-40 22:31:0019[facility] HermannCHEM FKYKI1393-82-32 22:31:001.27[facility] HermannCHEM BWMXZ4135-61-57 22:31:80025Cldtnics HermannCHEM WEUAR1822-37-30 22:31:004.0 [facility] HermannCHEM XKNUS7692-15-22 22:31:03007Rhgvjgki HermannCHEM PANEL 2019-03-07 22:31:0025[facility] HermannCHEM CHKYU4997-68-16 22:31:008.8[facility] HermannCHEM DRODP8476-24-81 22:31:0055[facility] HermannCHEM OLQVV4201-11-37 22:31:0011.0[facility] OaxkfviUZFQYRTSCD7259-40-72 22:31:0010.5[facility]ra NMDPWGGAAO2559-63-47 22:31:004.88[facility] NglfbzwQUSZAODOEW4163-59-94 22:31:00 13.5[facility] BwoqltmQCIMAMBDUA3894-06-46 22:31:0041.4[facility] HermannHEMATOLOGY 2019-03-07 22:31:0085.0[facility] UtnfbbkVDHDHUBDEN1324-40-49 22:31:00 Test Item Value Reference Range Interpretation Comments MCH (test code = MCH) 27.6 pg 27.0-31.0 [facility] MpztqsgMUGDDNFZYA1609-95-21 22:31:0032.5[facility] HermannHEMATOLOGY 2019-03-07 22:31:0015.7[facility] QfkeqmfNGXSRSJESN3960-23-88 22:31:97954Ivmhqkvh MhgqckmYJGWIQYCCC0884-64-31 22:31:006.9[facility] HermannPOC urinalysis dipstick 2019-03-06 10:27:00 Test Item Value Reference Range Interpretation Comments Color urine, POC (test code Yellow = 4293883) Clarity urine, POC (test Clear code = 5246452) Glucose urine, POC (test Negative Negative code = 7814213) Bilirubin urine, POC (test Negative Negative code = 4468811) Ketones urine, POC (test Negative Negative code = 0752089) Specific gravity urine, POC 1.015 1.005-1.030 (test code = 0993957) Blood urine, POC (test code Negative Negative = 0258801) pH urine, POC (test code = 7.0 5.0, 5.5, 6.0, 6.5, 7.0, 5952368) 7.5, 8.0, 8.5 Protein urine, POC (test Negative Negative code = 8538167) Urobilinogen urine, POC <2.0 <2.0 (test code = 1574479) Nitrite urine, POC (test Negative Negative code = 4176524) Leukocyte esterase urine, Negative Negative POC (test code = 3091280) [place][U] XRAY SHOULDER MIN 2 VWS LEFT [id number] 10:24:00Images acquired, not reported on this accession number.[facility] Post Op Promis 29 Wwolho3027-79-40 14:04:11 Test Item Value Reference Range Interpretation Comments Pain Interference: (test code = Pain 54.1 1 N Interference:) Pain Intensity: (test code = Pain 49.7 1 N Intensity:) Physical Function: (test code = 30.1 1 N Physical Function:) Satisfaction Role: (test code = 35.7 1 N Satisfaction Role:) [facility][U] XRAY SHOULDER MIN 2 VWS RIGHT [id number] 10:47:00Images acquired, not reported on this accession number.[facility][U] XRAY SHOULDER MIN 2 VWS LEFT [id number] 10:29:00Images acquired, not reported on this accession number.[facility] Post Op Promis 29 Tgbovu8036-12-33 14:04:32 Test Item Value Reference Range Interpretation Comments Pain Interference: (test code = Pain 68.2 1 N Interference:) Pain Intensity: (test code = Pain 57.5 1 N Intensity:) Physical Function: (test code = 28 1 N Physical Function:) Satisfaction Role: (test code = 26.5 1 N Satisfaction Role:) [facility][U] XRAY SHOULDER MIN 2 VWS LEFT [id number] 10:04:00Images acquired, not reported on this accession number.[facility] KbakuvpczvFOWWSGZZKSOR5270-56-11 08:52:0012.7[facility] HermannELECTROLYTES 2018-05-18 08:52:008.1[facility] QisntnyPXEGBNIWDZTX0745-48-84 08:52:97485Uadavkii GmbgqkdQNKLAZRTSUPA7776-69-37 08:52:04173Timohzcp BaxtgilPROCZPZCBGER2215-64-78 08:52:004.7[facility] SozvhemUCFXHCWKMBJC5433-90-69 08:52:0070[facility] [place] FMYABFKTFPII4032-96-43 08:52:001.04[facility] MpbulwbCUXOKYOXEPQW9537-91-91 08:52:83265Morwljpo QmbgktwDBBVVCMTEQIA7341-03-39 08:52:0028[facility] LYQIEDBHKFGJ3865-01-58 08:52:0017[facility] CscljuuJFKGROWFYP1689-73-96 08:52:00 7.9[facility] WaujneeJKABQDAAWL9079-34-54 08:52:0086.8[facility] HermannHEMATOLOGY 2018-05-18 08:52:000.2[facility] TvidvfzLULRVUILLQ6470-45-48 08:52:005.1[facility] XgflqbqCSPISPACOG5737-14-05 08:52:0011.8[facility] FnebbddJNBLKREORT4805-46-38 08:52:001.1[facility] YerlvfjKWBYWBOUNH2517-48-47 08:52:000.7[facility] IJYLPZSQXZ0449-02-04 08:52:007.2[facility] DzktdhnGTXZQLYNKS5774-82-37 08:52:00 4.05[facility] SoqttjjRISVRAZGMN0346-73-05 08:52:0013.6[facility] HermannHEMATOLOGY 2018-05-18 08:52:0033.1[facility] QajxbwoHVJDJMNLFI4331-29-43 08:52:0010.6[facility] CmljmtpCARNRMWQWC3298-39-65 08:52:0032.1[facility] PeigwkpOELBXUWTXA6229-87-95 08:52:00 Test Item Value Reference Range Interpretation Comments MCH (test code = MCH) 26.3 pg 27.0-31.0 [facility] JotrewvGLTJLVLFXE4768-61-60 08:52:0016.5[facility] HermannHEMATOLOGY 2018-05-18 08:52:35075Ykfsaloj XttgwedKHRGRRMNIM7760-40-10 08:52:0081.8[facility] ZxzjntcKGZNEDDAGZ5990-66-23 14:10:0013.9[facility] QpcgxumXZUKZWDEGZ3297-95-20 14:10:001.23[facility] ExneqfiWLGLJPNSJR9145-09-82 14:10:0041.0[facility] UIOWUCTUNY5242-60-14 14:10:0016.0[facility] ZoiakquINJUFTGUON7148-83-81 14:10:0083 [facility] YmufubvAPVONYXWOL2316-06-26 14:10:0026[facility] 2018-[facility]-17 14:10:0012[facility] IgtkaqyVFQZNLQTWO7741-95-62 14:10:000.9[facility] HtwglszOELBAUYVPG8241-54-69 14:10:19857Mhnueyaa OzpxehiLQVGHJTXIK8715-34-19 14:10:42343Jqqxvpcz SxtyxtiXYPKRSEWLX7280-99-68 14:10:004.4[facility] ACUBBYKVWO4609-01-20 14:10:415[facility] HEPATITIS DWEPB4286-19-67 12:10:01 Test Item Value Reference Range Interpretation Comments Hepatitis B Surface Antigen (test Negative Negative code = 5195-3) Hepatitis C Antibody (test code = Negative 97156-5) Hepatitis B Core IgM (test code = Negative Negative 39576-4) Hepatitis A IgM (test code = Negative Negative 96537-3) [facility]] VITAMIN [id number] 12:10:01 Test Item Value Reference Range Interpretation Comments Vitamin B12 Level (test code = 742 pg/ml [id number] 2132-9) [facility]] TSH, 3RD GENERATION W/REFLEX TO FT4 2018-05-07 12:10:01 Test Item Value Reference Range Interpretation Comments TSH; Above High Threshold 5.100 {uIU/ml} 0.360-3.740 (test code = 80607-3) [facility]] T4, [id number] 12:10:01 Test Item Value Reference Range Interpretation Comments T4 Free (test code = 3024-7) 1.06 ng/dl 0.76-1.46 [facility] FOLATE, [id number] 12:10:01 Test Item Value Reference Range Interpretation Comments Folate Level (test code = 2284-8) 31.8 ng/ml >=3.0 [facility]] NORMA PANEL, [id number] 12:10:01 Test Item Value Reference Range Interpretation Comments Antinuclear Antibody Negative Negative Marked Cytoplamic Screen (test code = staining 86214-2) present.Because the NORMA was Negativ e, the Reflex assays f or Anti-dsDNA, SM/ SUPERVISOR FIREARMS, [place] (SSA/S SB) were not perfor med. [facility]] VITAMIN [id number] 12:10:01 Test Item Value Reference Range Interpretation Comments Vitamin B6 18.4 {UG/L} 5.3-46.7 This test was d eveloped and its Level (test performance code = characteristics determined by Vitamin B6 [facility]. It has not been Level) cleared orappro vanesa by the Food and Drug Administration. Performed At: [facility] [id number] ra Wilson VASQUEZ Ph:[phone] [facility]] VITAMIN B1, WHOLE [id number] 12:10:01 Test Item Value Reference Range Interpretation Comments Vitamin B1 172.1 66.5-200.0 This test was d eveloped and its Level (test nmol/L performance code = characteristics determined by Vitamin B1 [facility]. It has not been Level) cleared orappro vanesa by the Food and Drug Administration. Performed At: [facility] [id number] ra Wilson VASQUEZ Ph:[phone] [facility][] Immunofixation [id number] 12:10:01 Test Item Value Reference Range Interpretation Comments Immunofixation SEE NOTES A very faint band is Electrophoresis identified i n the IgM Pattern (test code = madeline wi th a Immunofixation corresponding faint Electrophoresis bandin the k appa madeline. Pattern) Diffusely stain ing immunoreactivit y is present in IgG, IgA,kappa and l ambda lanes in a norm al distribution. 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 Recom mend repeatserum immunofixation electrophoresis in 1-2 months for a fo llow-up andconfirmation . I have personally reviewed the te st results and con cur with theresiden t's interpretation. CPT 77100-BQFxmhbdu zenia Signature Eonch Chang MD (Path) 05/10/18 1:21 P M [facility][H] Immunofixation Eletrophoresis [id number] 12:10:01 Test Item Value Reference Range Interpretation Comments Urine Immunofixation SEE NOTES No immu noreactivity is Electrophoresis present in a ny of the Pattern (test code = lanes. There is no Urine Immunofixation evidenc e of Electrophoresis aparaprotein . Pattern) Urine Immunofixation SEE NOTES Immunof ixation Electrophoresis electrophore sis did Interpretation (test not det ect any code = Urine immunoreactivit y in Immunofixation theexamined u rine Electrophoresis specimen. No Interpretation) monoclonal immunoglobulins or free kappa or lambdalight sierra ins are identified. I h ave personally revi ewed the test result s andconcur with the resident's interpretation. CPT 25254-WJIqklfsw zneia Signature Enoch Duckworth) 05/10/18 1:30 P M [facility]iciansCHEM [id number] 18:54:0065[facility] CHEM [id number] 18:54:001.1[facility]annDX Arthrocentesis Major Joint [id number] 13:12:00EXAM: FLUOROSCOPY-GUIDED LEFT SHOULDER ASPIRATIONDATE: 04/22/2018 13:12 CSTINDICATION: - M19.012 Primary osteoarthritis, left shoulderCOMPARISON: MRI dated 04/18/2018PRE-PROCEDURE:Consent: An informedconsent was obtained from patient prior to the procedure.Appropriate time out procedures were performed.PROCEDURE:The skin was prepped and draped in the usual fashion under aseptic precautions.1% lidocaine was utilized for local anesthesia.Under fluoroscopic guidance a 22 gauge long spinal needle was used to accessthe shoulder joint.Approximately 2 mL of thick, clear synovial fluid was aspirated fromtheshoulder joint.No immediate complications.Preprocedure pain score: 0-4/10Postprocedure pain score: 0/10FLUORO TIME: 8 secondsDr. John Freeman, attending, was present for the procedure.IMPRESSION: Technically successful fluoroscopy-guided left shoulder injection.--This report was dictated by a Water Softener Servicer/Fellow/Physician Log Brander. Ihave personallyreviewed the images as well as the interpretation and agree with the findings.Read by: Katty Mondragon MD Resident/Fellow/PhysicianAssistant: Katty Mondragon MDDictated Date/time: 04/23/18 12:56Electronically Signed by: John Freeman MD 04/24/1899:23FINAL REPORTUnPrimary [facility]'s Hospital [facility][] AFB Culture and Smear,[id number] 13:00:01 Test Item Value Reference Range Interpretation Comments AFB Culture and Cancel Reason: QNS Smear,Broth (test code = AFB Culture and Smear,Broth) [facility][] CULTURE, FUNGUS W/SMEAR NOT HAIR, SKIN, BLOOD 2018-04-22 13:00:01 Test Item Value Reference Range Interpretation Comments CULTURE, FUNGUS W/SMEAR Cancel Reason: QNS NOT HAIR, SKIN, BLOOD (test code = CULTURE, FUNGUS W/SMEAR NOT HAIR, SKIN, BLOOD) [facility][H] Crystal Exam Body [id number] 13:00:01 Test Item Value Reference Range Interpretation Comments Crystal Exam Body Fluid Cancel Reason: QNS (test code = Crystal Exam Body Fluid) [facility][H] BF Cell Cnt w/[id number] 13:00:01 Test Item Value Reference Range Interpretation Comments BF Cell Cnt w/Diff (test Cancel Reason: QNS code = BF Cell Cnt w/Diff) [facility][H] C Synov w/[id number] 13:00:01 Test Item Value Reference Range Interpretation Comments FINAL REPORT (test No Growth At 14 Source Details: pf code = FINAL Days bottle only REPORT) [facility] [id number] 16:57:00 Test Item Value Reference Range Interpretation Comments Spine cervical wo Cancel Reason: contrast MRI (test Duplicate Order code = Spine cervical wo contrast MRI) [facility] Shoulder wo contrast [id number] 16:23:00 Test Item Value Reference Range Interpretation Comments Shoulder wo contrast MR Cancel Reason: Exam (test code = Shoulder Replaced wo contrast MR) [facility] Shoulder w/wo contrast [id number] 16:23:00 MRI of the LEFT shoulderINDICATION: Shoulder pain.COMPARISON: No prior studies available for comparison.TECHNIQUE: Multiplanar multisequence MRI pre and post 20 mL of Dotaremgadolinium contrast.FINDINGS: This study is significantly limited from the susceptibility artifactcreated by the posterior surgical hardware within the glenoid. This limitsevaluation of adjacent structures.ROTATOR CUFF AND ASSOCIATED STRUCTURESRotator cuff: No definitive full-thickness tear of the supraspinatus,infraspinatus, and teres minor. There is a partial-thickness articular surfacetear of the supraspinatus insertion measuring about 4 mm in AP dimension andinvolving slightly greater than 50% tendon thickness (series 201,image 10).Subscapularis not well seen.Bursa: No significant bursal fluid.Musculature: There is atrophy of the subscapularis.Acromioclavicular joint: There are moderate degenerative changes of theacromioclavicular joint. A type 2 acromion configuration is noted. There is noanterior or lateral acromial downsloping.OSSEOUS STRUCTURESNo definitive acute fracture. There are degenerative cystic changes noted inthe bones.LONG BICIPITAL TENDONThere is tendinosis of the biceps tendon. Only the vertical portion within thebicipital groove is visualized. There is fluid within the biceps tendon sheathwhich appears septated.GLENOHUMERAL JOINTJoint fluid: Probable small joint effusion.Cartilage and Bone: Not well seen, however suspect significant cartilage loss,as there is evidence of chronic osseous remodelingof the glenoid withsubarticular cystic changes.Labrum: Not well seen.Other support structures: No capsular or ligamentous abnormality is seen.IMPRESSION: Limited study from the surgical hardware in theglenoid whichcreates significant artifact.1. Small, however high-grade partial-thickness articular surface tear of thesupraspinatus insertion.2. Probable subscapularis tendon repair with associated muscle atrophy.Correlate with prior surgical history.3. Moderate AC joint arthrosis.4. Probable glenohumeral arthrosis, as there is evidence of cystic changes andmarrow edema in the glenoid. Suspect atleast moderate osteoarthritis of theglenohumeral joint.5. 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 There are no fractures or compression deformities. The thoracic spineposterior elements are normal. The costovertebral junctions are unremarkable.SPINAL CORD: The thoracic spine spinal cord is normal in size and signal. TheCSF space is unremarkable. The conus medullaris ends at the L1 level.DISK SPACES: The discs are desiccated throughout the thoracic spine. Multilevelmoderate-severe disc height loss throughout the lower thoracic spine from T8-X9mowvayo T12-L1 is seen with scattered Modic type I degenerative endplatechanges. There are small annular disc bulges with superimposed mild to moderatefacet arthrosis at the levels of T8-T9 and T9-T10. Moderate-sized annular discbulge with advanced facet arthrosis at T10-T11 is seen with mild spinal canalstenosis and moderate bilateral neural foraminal narrowing. Small annular discbulge with moderate facet arthrosis at T11-T12 is also seen with resulting mildleft neural foraminal narrowing.IMPRESSION:1. No acute bony abnormality of the thoracic spine.2. Degenerative changes of the lower thoracic spine with mild spinal canalstenosis at T10-T11.SL: [id number]--Udtc by: Zurdo Luna MDDictated Date/time: 04/16/18 13:50Electronically Signed by: Zurdo Luna MD 04/16/1912:55FINAL REPORTUnM[facility] Point [facility] Center Spine lumbar wo contrast [id number] 10:57:00Clinical Indication: M54.16 Radiculopathy, lumbar region - M54.16 Radiculopathy, lumbar region 77-year-old male with back pain for many years.Patient had lumbar surgery done in 2017 weakness in the r ight leg.Comparison: Plain film of the lumbar spine 03/14/2016 and magnetic resonanceimaging of the lumbar spine 03/16/2016TECHNIQUE: Multiplanar T1, T2, STIR weighted noncontrast MRI of the lumbarspine is performed on the 3 Elvira magnet.FINDINGS:Sensitivity of the examination is reduced by patient motion artifact.ALIGNMENT AND GENERAL ASSESSMENT: Mild dextroscoliosis of the thoracolumbarspine is seen with the apex at L1-L2. Again seen are postoperative changes oflaminectomies from L3 through L5 andposterior spinal fusion from L3 through S1and an anterior fusion at L5-S1. Retrolisthesis of L1 is seen on L2 by 1.6 mm,retrolisthesis of L2 is seen on L3 by 4 mm and anterolisthesis of L4 on L5 by3.6 mm. Degenerative infiltration is seen in the endplates around the discspaces about the lumbar spine but especially at the level of L2-L3 and L3- L4.The remainder of the bone marrow is normal for the patient's age. There is no fracture. The anterior and posterior paraspinal soft tissues arenormal. The con us medullaris ends at the L1 level. Five lumbar vertebral bodiesare confirmed on plain films dated 03/14/2016.DISC SPACES:T11-T12: Mild to moderate disc space narrowing is seen. A shallow focalprotrusion measures 1.6 mm in its AP dimension. No abnormality is seen in thevisualized lower thoracic cord. No narrowing of the spinal canal or the neuralforamina is seen.T12-L1: Mild to moderate disc space narrowing is seen with diffuse decreased I2cvjshe. An extruded disc herniation is seen migrating to thelevel of thesuperior endplate of L1 in the left lateral recess measuring 11 mm CC x 2.6 mmx 6.5 mm.Mild bilateral facet arthropathies are seen.L1-L2: Mild disc space narrowing is seen. A focal protrusion to the left ofmidline measures 2.8 mm in its AP dimension. There is no central or foraminalstenosis. Mild bilateral facet arthropathies are seen.L2-L3: Advanced disc space narrowing is seen with spondylosis. A broadbaseosteophyte disc complex is seen measuring 6 mm in its AP dimension. Nosignificant narrowing of the central spinal canal seen. Moderate right andmoderately advanced left narrowing of the neural foramina due to osteophyticridging off the inferior endplate of L2.L3-L4: Mild disc space narrowing is seen with diffuse decreased T2 signal. Mildosteophytic ridging is seen in the lateralrecesses worse on the left than theright. Mild narrowing of the neural foramina is seen. Postoperative changes ofbilateral laminectomies are seen. The posterior fluid collection relatedmeasuring 3 cm x1.1 cm x 1.6 cm and is smaller than the fluid collection seenon the exam 03/16/2016.L4-L5: Mild discspace narrowing is seen with diffuse decreased signalintensity in the posterior disc space There is no central or foraminalstenosis. Postoperative changes of a bilateral laminectomy and posteriorfusion are again seen.L5-S1: Postoperative changes of an anterior fusion are seen with theintradiscal fusion material identified as separate ability artifact. Patientmotion at this level decreases the sensitivity on the axial images. Posteriorfluid collections seen on today's examination is smaller than that on theprevious examination. Postoperative changes of bilateral laminectomies areagain seen. Mild narrowing of the neural foramina is seen.IMPRESSION:1. A focal extruded migrating disc herniation is seen to the left of midline atthe level of T12-L1.2. Multilevel osteophyte disc bulges are seen with some protrusions andpseudoprotrusion is secondary to offset of the vertebral bodies describedabove.3. Narrowing of the neural foramina and lateral recesses as described above.4. The loculated fluid collection located posteriorly to the dural sac at theoperative bed has decreased in size since the magnetic resonance becrifx5703/16/2016.SL: [id number]--Serc by: Nasim Rahman MDDictated Date/time: 04/16/18 13:10Electronically Signed by: Nasim Rahman MD 04/16/1912:38FINAL REPORTUnM[facility] Center Spine cervical wo contrast [id number] 10:56:00Study: Spine cervical wo contrast MRIClinical Indication: M54.12 Radiculopathy, cervical region - M54.12 Radiculopathy, cervical regionComparison: NoneTECHNIQUE: Multiplanar, multisequence magnetic r esonance imaging of thecervical spine was performed without the administration of intravenousgadolinium contrast.FINDINGS:There is grade 1 anterolisthesis of C3 over C4 by 1 mm. No focal marrow signalabnormality is present. The prevertebral soft tissues, atlanto-dentalinterspace, and craniocervical junction are within normal limits. Thevisualized brainstem region is unremarkable. The cervical spinalcord is normalin size and signal.The discs are desiccated throughout the cervical spine. Mild disc height lossat C3-C4 is seen. Severe disc height loss from C4-C5 through C6-C7 is noted.DISC SPACES:C2-C3: Negative for significant disc bulge or protrusion. Moderate right facetarthrosis is noted. There is mild right neural foraminal narrowing withoutspinal canal stenosis.C3-C4: Small circumferential disc osteophyte complex is seen. Moderate leftfacet arthrosis is seen. Mild right facet arthrosis is also noted. There ismild spinal canal stenosis with the thecal sac measuring 9.5 mm AP dimension.Severeleft and mild right neural foraminal narrowing is present.C4-C5: Large circumferential disc osteophyte complex with superimposeduncovertebral arthrosis is seen. Mild facet arthrosis is present. There is mildto moderate spinal canal stenosis with thecal sac measuring 8.5 mm APdimension. Severe bilateral neural foraminal narrowing is present.C5-C6: Large circumferential disc osteophyte complex with superimposeduncovertebral arthrosis is seen. Mild facet arthrosis is noted. There is mildto moderate spinal canal stenosis with thecal sac measuring 8.5 mm APdimension. Moderate-severe bilateral neural fora carlito narrowing, left greaterthan right, is present.C6-C7: Large circumferential disc osteophyte complex with superimposeduncovertebral arthrosis is seen. Mild facet arthrosis is noted. There is mildspinal canal stenosis with the thecal sac measuring 9 mm AP dimension. Severebilateral neural foraminalnarrowing is noted.C7-T1: Negative for significant disc bulge or protrusion. Moderate-severe facetarthrosis, left greater than right, is seen. There is no spinal canal stenosisor neural foraminal narrowing.IMPRESSION:1. Advanced multilevel degenerative changes of the cervical spine with mildspinal canal stenosis and severe left neural foraminal narrowing at C3-C4.2. C4-C5 mild to moderate spinal canal stenosis with severe bilateral neuralforaminal narrowing.3. C5-C6 mild to moderate spinal canal stenosis with moderate-severe bilateralneural foraminal narrowing, left greater than right.4. C6-C7 mildspinal canal stenosis with severe bilateral neural foraminalnarrowing.SL: [id number]--Amja by: Zurdo Lunaictated Date/time: 04/16/18 13:41Electronically Signed by: Zurdo Luna MD 04/16/1912:49FINAL REPORTUnPrimary [facility]'s Hospital [facility][U] XRAY SHOULDER MIN 2 VWS LEFT [id number] 10:47:00Images acquired, not reported on this accession number.[facility] [U] XRAY SPINE CERVICAL 2 OR 3 VWS [id number] 13:29:00Images acquired, not reported on this accession number.[facility][U] XRAY SPINE LUMBOSACRAL 2 OR 3 VWS [id number] 13:29:00Images acquired, not reported on this accession number.[facility] PhysiciansGlucose (Point of Care In Office)2017-12-12 13:47:00 Test Item Value Reference Range Interpretation Comments Glucose POC Lifescan (test code = 137 Glucose POC Lifescan) External QC Done Today? (test code = Yes External QC Done Today?) [facility][H] Allergens, Inhalants, Comprehensive Profile 2017-12-03 14:29:01 Test Item Value Reference Range Interpretation Comments Class Description (test Comment Aleks cowan of Specific code = Class Description) Ig E Class Description of Class ---- -------- ----- ---- - < 0.10 0 Negative 0.10 - 0 .31 0/I Equivocal/Low 0.32 - 0 .55 I Low 0 .56 - 1.40 II Moder ate 1.41 - 3.90 II I High 3.91 - 19.00 IV Ve ry High 1 9.01 - 100.00 V Very Hi gh >100.00 Very High IgE Level (test code = 2 {IU/ml} 0-100 32430-3) Allergen, Aspergillus <0.10 Class 0 fumigatus (test code = Allergen, Aspergillus fumigatus) Allerg Alternaria <0.10 Class 0 alternata (test code = Allerg Alternaria alternata) Allergen, Cat Dander <0.10 Class 0 (test code = Allergen, Cat Dander) Allerg Cladosporium <0.10 Class 0 herbarum (test code = Allerg Cladosporium herbarum) Allergen, Cow Dander <0.10 Class 0 (test code = Allergen, Cow Dander) Allergen, <0.10 Class 0 Dermatophagoides pteronyssinus (test code = Allergen, Dermatophagoides pteronyssinus) Allergen, <0.10 Class 0 Dermatophagoides farinae (test code = Allergen, Dermatophagoides farinae) Allergen, Dog Dander <0.10 Class 0 (test code = Allergen, Dog Dander) Allergen, [place] Grass <0.10 Class 0 (test code = Allergen, [place] Grass) Allergen, Grass, <0.10 Class 0 [place] Blue (test code = Allergen, Grass, [place] Blue) Allergen, Grass, Jose <0.10 Class 0 (test code = Allergen, Grass, Jose) Allergen, Grass, <0.10 Class 0 Perennial [place] (test code = Allergen, Grass, Perennial [place]) Allergen, Grass, Pablo <0.10 Class 0 (test code = Allergen, Grass, Pablo) Allerg Horse Dander (test <0.10 Class 0 code = Allerg Horse Dander) Allergen House Dust Arnold <0.10 Class 0 (test code = Allergen House Dust Arnold) Allergen, Penicillium <0.10 Class 0 chrysogen (test code = Allergen, Penicillium chrysogen) Allergen, Tree, <0.10 Class 0 [place] (test code = Allergen, Tree, [place]) Allergen, Tree, Elm (test <0.10 Class 0 code = Allergen, Tree, Elm) Allergen, Tree, Mountain <0.10 Class 0 [place] (test code = Allergen, Tree, [place]) Allergen, Tree, [place] <0.10 Class 0 (test code = Allergen, Tree, [place]) Allergen, Tree, [place] <0.10 Class 0 (test code = Allergen, Tree, [place]) Allerg Tree [place] <0.10 Class 0 (test code = Allerg Tree [place]) Allergen, Egnar, <0.10 Class 0 Common/Short Ragweed (test code = Allergen, Egnar, Common/Short Ragweed) Allergen, Egnar, Mugwort <0.10 Class 0 (test code = Allergen, Egnar, Mugwort) Allergen, Egnar, [place] <0.10 Class 0 Plantain (test code = Allergen, Egnar, [place] Plantain) Allergen, Egnar, Lambs <0.10 Class 0 Perfor med At: Quarters (test code = [facility] p Allergen, Egnar, Lambs Burlin aexp[address] [facility]) [address] [place], [place] [id number] cock Suleiman Woo MD Ph:[phone] [facility][O] Hemoglobin A1c (in office)2017-11-05 00:00:00 Test Item Value Reference Range Interpretation Comments HEMOGLOBIN A1c (test code = 4548-4) 8.9 External QC Done? (test code = External Yes QC Done?) [facility][U] XRAY SPINE LUMBOSACRAL 2 OR 3 VWS [id number] 2017-07-12 08:46:00Images acquired, not reported on this accession number. [facility] PhysiciansCHEM [id number] 12:00:0087[facility] CHEM [id number] 12:00:0010[facility] HermannCHEM [id number] 12:00:000.82 [facility] HermannCHEM [id number] 12:00:007[facility]annCHEM PANEL 2017-05-18 12:00:006[facility]annCHEM [id number] 12:00:08622Nvysqqax HermannCHEM [id number] 12:00:003.7[facility] HermannCHEM [id number] 12:00:01970Sxubzorf HermannCHEM [id number] 12:00:002.7[facility]annCHEM [id number] 12:00:008.3[facility]annCHEM [id number] 12:00:0028 [facility]annCHEM [id number] 12:00:79782Ivstanhg HermannCHEM PANEL 2017-05-18 12:00:001.1[facility] HermannCHEM [id number] 12:00:0085[facility]annCHEM [id number] 12:00:005.9[facility]annCHEM [id number] 12:00:00 Test Item Value Reference Range Interpretation Comments B/C Ratio (test code = B/C Ratio) 7 1 6-25 [facility]annCHEM [id number] 12:00:0011.7[facility] HermannCHEM PANEL 2017-05-18 12:00:00 Test Item Value Reference Range Interpretation Comments A/G Ratio (test code = A/G Ratio) 0.8 1 0.7-1.6 [facility]annCHEM [id number] 12:00:003.2[facility] HermannHEMATOLOGY 2017-05-18 12:00:006.7[facility] [id number] 12:00:001.7[facility]orial RddcclvHSKCECLXGG0728-00-30 12:00:0073.3[facility]orial [id number] 12:00:0017.8[facility]orial [id number] 12:00:001.5[facility] [id number] 12:00:000.5[facility] KqtkwjbJIQSABYXGI3005-79-12 12:00:006.0 [facility] XjbsvlmVHZRIXXDHE7428-84-28 12:00:000.6[facility]annHEMATOLOGY 2017-05-18 12:00:001+ *ABN*(05/18/17 6:00 AM)[facility] WocjgsoKMKIRKHDAA0374-42-58 12:00:000.1[facility] EkidvfnDKIEFKPQNJ7920-42-83 12:00:007.0[facility] DZUCWANGNV3915-77-93 12:00:57428Njujbgqr KyzvqvyEKQBBSDXFX4038-68-79 12:00:008.2 [facility] YbqzifcXXDJINAMAW8796-49-31 12:00:009.6[facility]annHEMATOLOGY 2017-05-18 12:00:0029.0[facility] TzknnigUMHAVQFZAV8640-49-32 12:00:003.79[facility] OsjvgrdUBQRWLTGSS7864-20-47 12:00:0015.5[facility] ZsuzcmtPBRWESGOFQ3467-84-09 12:00:0033.0[facility] FytjuyuTGJLWMHSPF8346-09-78 12:00:0076.5[facility] HQEWKWOVMZ6926-13-52 12:00:00 Test Item Value Reference Range Interpretation Comments MCH (test code = MCH) 25.3 pg 27.0-31.0 [facility]annCHE[facility] FKRFV8106-56-60 12:30:00<0.05[facility]annCHEM PANEL 2017-05-16 10:15:002.7[facility]annCHEM GUUYA8992-79-36 10:15:00 Test Item Value Reference Range Interpretation Comments A/G Ratio (test code = A/G Ratio) 1.0 1 0.7-1.6 [facility]annCHEM YEMST5358-47-37 10:15:00 Test Item Value Reference Range Interpretation Comments B/C Ratio (test code = B/C Ratio) 13 1 6-25 [facility]annCHE[facility] JRGWG1152-00-34 10:15:0015.3[facility]annCHEM PANEL 2017-05-16 10:15:000.4[facility]annCHEM UIDFF7673-50-38 10:15:0091[facility]annCHEM VOWLG6904-09-09 10:15:005.5[facility]annCHEM XVOAW4536-83-64 10:15:0082[facility]annCHEM HWOQP9302-24-20 10:15:0011[facility]annCHEM YMXTG7645-09-41 10:15:0012[facility]annCHEM IRFVN7414-27-09 10:15:000.92 [facility]annCHEM KHOHS2413-17-22 10:15:12286Kabpcqzu HermannCHEM PANEL 2017-05-16 10:15:0012[facility]annCHEM IHYMP7318-76-77 10:15:13689Egvzstps HermannCHEM ZQWKP9812-30-31 10:15:35417Aqetahne HermannCHEM NHVQT5218-17-42 10:15:004.3[facility]annCHEM DFPQH8925-40-32 10:15:002.8[facility]annCHEM USBMD5005-81-78 10:15:0027[facility]annCHEM IWCYU2716-70-64 10:15:007.7 [facility] QibuhleIUUROVGVPI9465-91-56 10:15:003.80[facility]annHEMATOLOGY 2017-05-16 10:15:008.8[facility] ApcwlicFYZEOOGBXO5403-86-44 10:15:0033.8[facility] NfqchthWDUGPNOXIP4190-19-51 10:15:00 Test Item Value Reference Range Interpretation Comments MCH (test code = MCH) 25.8 pg 27.0-31.0 [facility] AvqvhadZCMFCQJOJV3320-08-47 10:15:0076.4[facility]annHEMATOLOGY 2017-05-16 10:15:009.8[facility] NtmhgvcOTQXILIERJ9325-44-37 10:15:0029.1[facility] YofgqkpTFUSCQJLHS3546-70-21 10:15:006.8[facility] PxryhnlZVRWJSWQXX4314-89-04 10:15:06110Kurjosmp SbqrjdpMHWVXJCIOG7434-67-59 10:15:0016.0[facility] XRIPVBMXGV9718-39-23 10:15:001.8[facility] OutbpwwKOHZKFFQSI9481-25-86 10:15:006.3 [facility] FkjnqbtSKXDBPQYBD4690-46-05 10:15:000.6[facility]annHEMATOLOGY 2017-05-16 10:15:001.7[facility] IzrvmxzJUQAHBSEPB6332-13-90 10:15:006.4[facility] LhsbqfqGNCQHAKXSD4234-68-05 10:15:000.6[facility] BjsrthrKNQZXGKMLE0037-38-02 10:15:000.1[facility] UvtpgbaHUWSIFHDKU7288-17-98 10:15:000.2[facility] HASRJUUZTY2260-42-19 10:15:001+ *ABN*(05/16/17 4:15 AM)[facility]annHEMATOLOGY 2017-05-16 10:15:0072.3[facility] DsjauizAMDXYZKNDJ0464-93-75 10:15:0019.0[facility] IpdcnovMAPAZZNNQY2960-69-76 10:15:00<78[facility] JpehjeiGCCAWISVUF8025-20-72 10:15:00<12[facility] BnwceqgFFNNDFVXBF4849-44-02 10:15:00 Test Item Value Reference Range Interpretation Comments Sarah Kelly TND (test code = Vanco Tr 0430 1 TND) [facility] VhyyaglIWRWRQOJMK3176-42-69 10:15:0012.5[facility]annHEMATOLOGY 2017-05-16 04:12:002.1[facility] StckmmwHGNCDGMTEY1755-70-00 04:12:007.0[facility] ShpypkvPOJDFAQOQR3099-10-61 04:12:000.1[facility] UbhxzkwGORPDIGMJJ8279-27-55 04:12:000.2[facility] UpcwupfQBXZWQCHEX1736-82-61 04:12:000.7[facility] ADFFXFYYPV1414-08-89 04:12:001+ *ABN*(05/15/17 10:12 PM)[facility] TIEPZIISUQ9706-09-87 04:12:0070.1[facility] LvyyvcxKARUTAQZIV7135-83-85 04:12:00 0.6[facility] YztmhddDHWKOJPRYV1451-44-13 04:12:001.5[facility]annHEMATOLOGY 2017-05-16 04:12:006.7[facility] IqqaujoDUWDDLGDNF9826-33-07 04:12:0021.1[facility] YoulndsQWDBRMWROD7574-39-78 04:12:007.0[facility] UxtwvdyTYBCYMXVUR5812-61-27 04:12:00 Test Item Value Reference Range Interpretation Comments MCH (test code = MCH) 25.4 pg 27.0-31.0 [facility] XhooqayHNITVPYRRX7920-46-61 04:12:0077.3[facility]annHEMATOLOGY 2017-05-16 04:12:91920Uvccpigg KejwmhkKZYGVLVTIF0144-33-85 04:12:0015.8[facility] SgqepugQAGDQDQYZT2503-46-70 04:12:0032.8[facility] EyivogxHZOPZPEMGH3551-72-66 04:12:003.91[facility] UbtimqfCAXSPSGLYG9165-77-79 04:12:009.9[facility] WQDCMVFLJB5865-24-90 04:12:0010.1[facility] LpcwjgwSFLGTIOYWE0166-54-82 04:12:00 30.2[facility]annCHEM XCDBH9815-01-79 12:47:0066[facility]annCHEM PANEL 2017-05-15 12:47:0012[facility]annCHEM KHVTD1874-26-72 12:47:26262Wjrcejva HermannCHEM ZSUHT1950-51-12 12:47:001.1[facility]annCHEM MBFIJ4412-66-25 12:47:0050.0[facility]annCHEM QENFR9153-70-95 12:47:0026[facility]annCHEM OBUIY0682-60-55 12:47:41509Vjyuqzrl HermannCHEM NMWIT3284-15-30 12:47:0017.0 [facility]annCHEM CXLBS5177-23-53 12:47:001.20[facility]annCHEM PANEL 2017-05-15 12:47:0017.0[facility]annCHEM RKHKB9089-41-40 12:47:003.9[facility]annCHEM OCKDJ3922-36-15 12:47:91426Tnqglumh JsadafaKEDNPUTTEN0287-35-79 12:41:0036[facility] SlwdcgqIVWZBAOQOO9170-58-13 12:41:0062.7[facility][U] XRAY SHOULDER MIN 2 VWS RIGHT [id number] 08:47:00Images acquired, not reported on this accession number.[facility]iciansCHEM PANEL 2017-05-06 18:09:0085[facility]annCHEM IMHAU7193-58-40 18:09:00 Test Item Value Reference Range Interpretation Comments B/C Ratio (test code = B/C Ratio) 10 1 6-25 [facility]annCHE[facility] DWFYO5616-14-05 18:09:0011.7[facility]annCHEM PANEL 2017-05-06 18:09:0015[facility]annCHEM MXNTY1021-30-85 18:09:002.7[facility]annCHEM AWLXW5912-23-18 18:09:0022[facility]annCHEM CLYZP3265-26-71 18:09:000.86[facility]annCHEM FBRHM1176-02-10 18:09:009[facility]annCHEM WSZIB8897-42-93 18:09:27182Yjvbybvl HermannCHEM CFCPS8072-09-48 18:09:0028 [facility]annCHEM EUMJR2830-46-12 18:09:03034Cpytuecf HermannCHEM PANEL 2017-05-06 18:09:003.7[facility]annCHEM BOQEA8674-48-00 18:09:007.9[facility]annCHEM UGEIB8159-28-65 18:09:86622Xxxzhcei HermannCHEM IXSPO2605-79-54 18:09:00 Test Item Value Reference Range Interpretation Comments A/G Ratio (test code = A/G Ratio) 0.8 1 0.7-1.6 [facility]annCHEM VEXIN8824-42-24 18:09:003.3[facility]annCHEM PANEL 2017-05-06 18:09:006.0[facility]annCHEM OYAEE1806-91-37 18:09:86658Jfodvsew HermannCHEM SVDUB4770-72-76 18:09:000.2[facility] QaitcemUYKSHCYYEF1793-80-51 18:09:006.7[facility] FiuqtvoBRXZSWCBWG3332-28-40 18:09:001.6[facility] BZWRSUBUSZ7588-08-90 18:09:0017.4[facility] QfbhklbKWROVDPLMT4733-29-60 18:09:00 6.9[facility] XhioidyMADFLWJWAU3730-31-80 18:09:001.2[facility]annHEMATOLOGY 2017-05-06 18:09:000.6[facility] OvfgyusWFDXFRLJMN2798-84-19 18:09:001.6[facility] EmhfnftLGGXYLXUPU6791-03-44 18:09:000.2[facility] MqiziaaPNXENPERTV2185-66-27 18:09:000.1[facility] SyetmroEWQDUDRXVU1155-80-97 18:09:001+ *ABN*(05/06/17 12:09 PM)[facility] AucloalCHJLPGXKXG0047-66-55 18:09:0073.1[facility]annHEMATOLOGY 2017-05-06 18:09:009.5[facility] CfehzqvBMWAAJDTZD5360-74-86 18:09:0033.2[facility] GcwarikITQSRTSLCH6026-86-72 18:09:004.26[facility] KobchiaNCFMDFKRPX1357-48-00 18:09:0010.9[facility] NxujlayEVKHCBGKFP0428-38-73 18:09:00 Test Item Value Reference Range Interpretation Comments MCH (test code = MCH) 25.6 pg 27.0-31.0 [facility] BspaiezEASYZQYLFP1941-90-64 18:09:0077.7[facility]annHEMATOLOGY 2017-05-06 18:09:00812Hrynzzpz NhghiwsGDPIVNVITW8226-92-43 18:09:006.7[facility] RxptjvjGKBREGYMDW0465-55-33 18:09:0033.0[facility] GzhvvqlRHPAVILLXK2544-28-20 18:09:0015.8[facility] BrmhaynIVBOVIQAHM7794-74-36 18:09:0040.6[facility] CHEM TXAGZ9321-24-67 11:26:24786Zxcqyczc HermannCHEM HNDBX4451-96-99 11:26:87613 [facility]annCHEM NGUUY8869-85-16 11:26:49192Rftowtig HermannCHEM PANEL 2017-05-04 11:26:004.1[facility]annCHEM TCBUP0024-83-92 11:26:0012[facility]annCHEM CDUJY8114-49-47 11:26:0029[facility]annCHEM DSFCF4904-61-33 11:26:008.5[facility]annCHEM VJPIK4584-63-52 11:26:0087[facility]annCHEM QHOLP5348-81-77 11:26:000.81[facility]annCHEM WKBCM0262-83-66 11:26:0013.1 [facility] EqhhkfkIEMDTTJIYW8227-83-19 11:26:000.7[facility]annHEMATOLOGY 2017-05-04 11:26:005.7[facility] OssilhbBICIVMMTMS8157-05-35 11:26:000.1[facility] TvpdanmVNUPNMZXGY8775-81-02 11:26:001.7[facility] AqomidfWDEVZTCZAL4745-35-57 11:26:000.1[facility] RsbhujkTYNTOEFTOK8222-06-72 11:26:001+ *ABN*(05/04/17 5:26 AM) [facility] GfqdamnNUYWIWHPZI0499-01-95 11:26:007.5[facility]annHEMATOLOGY 2017-05-04 11:26:001.0[facility] TqqkflxSSKQXURXHI9544-51-60 11:26:000.6[facility] IsenaaqUBNHPANJJG7411-27-12 11:26:0021.0[facility] BgzzcpsLHWUCIFJEU0522-94-90 11:26:0069.8[facility] OtwcipzTWBWVSBGIC8766-90-37 11:26:004.15[facility] OPNIBAVYDR2652-07-64 11:26:008.1[facility] XntzdasHZJDRLPQYP5163-22-01 11:26:00 32.3[facility] ImtxneeRBIASXTZOE5688-85-10 11:26:0010.6[facility]annHEMATOLOGY 2017-05-04 11:26:0077.7[facility] OeplulrXAOQOHBHHF5635-37-59 11:26:0015.9[facility] UxotankVWAMESTCCS5712-80-67 11:26:64152Lxuefpdo WxwkhvuVSTGRDCGQQ7764-57-39 11:26:00 Test Item Value Reference Range Interpretation Comments MCH (test code = MCH) 25.5 pg 27.0-31.0 [facility] DsxicjkKFZMYZVEKR2439-62-32 11:26:0032.8[facility]annHEMATOLOGY 2017-05-04 11:26:006.7[facility] DmdinhaNDESUWMBSL8878-58-63 01:39:00 Test Item Value Reference Range Interpretation Comments Vanco Tr TND (test code = Vanco Tr 2000 1 TND) [facility] QetsdwtXYCGTNBRYT2536-27-45 01:39:0010.5[facility] HermannCHEM PANEL 2017-05-02 11:54:0078[facility]annCHEM JAIPT1386-56-92 11:54:000.96[facility]annCHEM NYKXU3248-75-86 11:54:004.9[facility]annCHEM BSSVX8483-45-77 11:54:58323Bombhyqw HermannCHEM UFYXK8672-36-28 11:54:0029[facility]annCHEM OIWGO9130-00-95 11:54:008.6[facility]annCHEM EQKBL5457-26-33 11:54:76036 [facility]annCHEM GDCKP1800-33-14 11:54:0017[facility]annCHEM PANEL 2017-05-02 11:54:67045Kyyrkexv HermannCHEM WIITQ7263-49-36 11:54:0013.9[facility] KlpwzjwBZEUIBBZKQ2316-12-34 11:54:34796Ckrzdrzp UufyenoPSWRHIQAAX3870-48-54 11:54:007.0[facility] MezxonkFTCKJMXFAT1066-64-15 11:54:0015.7[facility] YFGIWNMNHT8491-31-88 11:54:00 Test Item Value Reference Range Interpretation Comments MCH (test code = MCH) 25.4 pg 27.0-31.0 [facility] TilzxraDKGVMOFBYQ8811-35-45 11:54:0032.0[facility]annHEMATOLOGY 2017-05-02 11:54:0033.7[facility] UrsyqpbBUMUFGSEZE2365-08-89 11:54:0010.8[facility] GnhibufJGMYJAJIVO9205-54-76 11:54:004.25[facility] JnwvnplKXZMGGYRGU8434-57-37 11:54:0079.2[facility] NdmpucwQBNHPKXBUT6094-33-78 11:54:0012.8[facility] MPHDVTXLLW3573-57-26 11:54:006.0[facility] ZttwnkbHMGQLIIUIW8654-07-68 11:54:009.9 [facility] UdqfggcJGCRPMRNAL6352-65-48 11:54:000.3[facility]annHEMATOLOGY 2017-05-02 11:54:0010.7[facility] DfyougcJYXWOOIMGE2857-95-75 11:54:001.3[facility] LmxrnpvJXHPDWAPGG2741-16-31 11:54:000.8[facility] UvsydpqWQIVKENXGW3228-42-67 11:54:0083.8[facility] ZzwovubFCOLPQWRVW5896-30-00 16:49:49419.0[facility] GHDGZWPUZT1339-52-15 14:59:0040[facility] HermannXRAY Shoulder series 18061 2017-05-01 10:45:00EXAMINATION: Right shoulder seriesHISTORY: Right rotator cuff arthropathyFINDINGS: 2 to 3 views of the right shoulder are performed and compared to04/13/2017.There is a reverse jgna-mvp-vziggp right total shoulder arthroplasty projectingin unchanged near-anatomic alignment without periprosthetic fracture orosteolysis. There has been interval placement of a surgical drain. There is noevidence of scapular notching. 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 Mild right basilar atelectasis is n oted.IMPRESSION:1. Reverse cvfg-shs-fpjoib right total shoulder arthroplasty in unchangednear-anatomic alignment with interval placement of a surgical drain.--Read by: Raj Cope MDDictated Date/time: 05/01/17 12:12Electronically Signed by: Raj Cope MD 05/01/1811:14FINAL REPORTUnPrimary [facility][U] XRAY SHOULDER MIN 2 VWS RIGHT [id number] 09:57:00Images acquired, not reported on this accession number.[facility] PhysiciansCHEM DRGJA2145-44-73 18:29:0084 [facility]annCHEM FXBXD4011-58-05 18:29:004.4[facility]annCHEM PANEL 2017-04-13 18:29:94548Xthgpahe HermannCHEM OFZQJ6458-33-79 18:29:39004Jfceollt HermannCHEM JATHA0222-77-77 18:29:0016.0[facility] HermannCHEM BMSEL8903-54-06 18:29:0044.0[facility]annCHEM WXQTT2863-49-02 18:29:0015.0[facility] CHEM BJRXU8888-60-39 18:29:001.20[facility]annCHEM HPPWL4464-60-77 18:29:00 100[facility]annCHEM VDZTI8082-57-16 18:29:000.9[facility]annCHEM PANEL 2017-04-13 18:29:0016[facility] HermannCHEM NFVRT0808-67-55 18:29:0029[facility] HermannXRAY Shoulder series [id number] 15:58:00HISTORY: - AP and Grashey in PACUTECHNIQUE: Frontal and Grashey views of the right shoulder.COMPARISON: Study from earlier today.FINDINGS: 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 No evidence ofacute fracture or dislocation. Linear atelectasis is noted within the rightlung.IMPRESSION:Stable surgical change as above.[id number]--Ygap by: Georges Amaya MDDictated Date/time: 04/13/17 16:55Electronically Signed by: Georges Amaya MD 04/13/1815:57FINAL REPORTUnPrimary [facility]'s Hospital Physicians[U] XRAY SHOULDER MIN 2 VWS RIGHT [id number] 09:38:00Images acquired, not reported on this accession number.[facility][U] XRAY SHOULDER MIN 2 VWS RIGHT [id number] 10:48:00Images acquired, not reported on this accession number. [facility][U] XRAY SHOULDER MIN 2 VWS RIGHT [id number] 08:17:00Images acquired, not reported on this accession number.[facility] MiulkbhggkZHYCKGLJONED0067-21-60 10:03:0012.4[facility] HermannELECTROLYTES 2017-01-27 10:03:0067[facility] WzphacjDLLNSNNKAEDF7922-92-83 10:03:48730Fufshpls RnedkkdILZIFZGQSKHY5203-28-23 10:03:001.08[facility] EzthngqSQZAIMXERGQF5003-24-15 10:03:0015[facility] YulcnbbPDZDTKYUWPUZ6763-18-83 10:03:07366Aasojmvk [place] DUZUNJXYSELP5783-21-31 10:03:008.2[facility] QqkvekcXELYIJLLLSVE4293-25-61 10:03:90875Fzonocet PuygdngRHJSORUZKXTX8897-53-91 10:03:0027[facility] ZPXGJMMQYPYM2884-18-34 10:03:004.4[facility] QyndytwRMSNHUFXDM4980-08-92 10:03:00 10.4[facility] ZjcpajbQXXZZUHJWP6242-38-87 10:03:0081.0[facility]annHEMATOLOGY 2017-01-27 10:03:0034.1[facility] CcpvbbkKJRWKNCRNM2114-61-34 10:03:00 Test Item Value Reference Range Interpretation Comments MCH (test code = MCH) 26.9 pg 27.0-31.0 [facility] PrpwxqnHWLWFBGJFC8818-36-65 10:03:0011.3[facility]annHEMATOLOGY 2017-01-27 10:03:004.20[facility] ChwymxoKWYOIGEPCL8439-65-23 10:03:006.7[facility] HengpznPBYDFLXZTD6583-22-86 10:03:51414Irfyviyx EvrppbvHNVQTFZAKH7662-82-13 10:03:0016.1[facility] WtovemeLGYREVQRGE0764-75-62 10:03:0033.2[facility] ZFYSSTWTUS2940-52-99 10:03:001.0[facility] BaoezzeUQHICIOCOQ6415-73-76 10:03:007.4 [facility] GtixvymYMRCWRFIFS2556-37-08 10:03:001.0[facility] HermannHEMATOLOGY 2017-01-27 10:03:0019.6[facility] KraelyhLSJJNRIYLV0008-29-04 10:03:0071.7[facility] SvzyaecJLUMDAJDWZ3157-28-48 10:03:006.7[facility] ClhaexnNNUTPJGQEP7589-10-50 10:03:000.7[facility] GkhpbywPEWOEGFYID2806-29-91 10:03:002.0[facility] ZRAQCWYHEH9409-51-80 10:03:000.1[facility] FfcbgmyUNQMBJELRB4442-67-15 10:03:000.1 [facility] HermannBACTERIAL - SAHWCNFC8218-66-44 16:36:00Negative (01/22/17 11:36 AM)[facility]annCHEM NEIGX4957-43-46 16:36:003.9[facility] HermannCHEM PANEL 2017-01-22 16:36:48016Esijhezw HermannCHEM RWNHL3523-28-94 16:36:0070[facility] HermannCHEM YGUXO1396-76-49 16:36:001.04[facility] HermannCHEM WHNMS9119-55-88 16:36:0016[facility] UcwuxpaZTWVMCXIRRMO2309-80-20 16:36:15394Gbhervkk Indra XPLTUJMKRCKO4835-28-85 16:36:003.6[facility] FtwdopeZSLCGZFVBO0180-96-98 16:36:00 7.1[facility] NlcjdgiQPNHUIDEPI4657-61-96 16:36:41082Ggvkbmea HermannHEMATOLOGY 2017-01-22 16:36:0081.2[facility] UzmrrfdLMZIVTUWBM1265-38-85 16:36:0016.0[facility] YexlpqvIRHSOKIXAQ4192-71-58 16:36:0032.7[facility] IcvpxxoZQMJQBYSWX7379-05-08 16:36:00 Test Item Value Reference Range Interpretation Comments MCH (test code = MCH) 26.6 pg 27.0-31.0 [facility] LcjgaozZAQOWTRZZA1459-29-46 16:36:0041.9[facility] HermannHEMATOLOGY 2017-01-22 16:36:0013.7[facility] UlavtqhEDZUQUEEMJ8770-42-85 16:36:005.15[facility] UisadezJYHXVPBCJB9702-57-15 16:36:0010.7[facility] HermannTobacco Use Screening 2016-12-26 19:00:00 Test Item Value Reference Range Interpretation Comments Completed (test code = Completed) DONE [facility] PhysiciansCHEM MVTUY3280-57-46 10:37:000.7[facility] CHEM SHJOZ9150-77-66 10:37:003.5[facility] HermannCHEM KKKVW8707-31-16 10:37:005 [facility]annCHEM LMSPL4796-93-80 10:37:0014.7[facility] HermannCHEM PANEL 2016-03-20 10:37:0090[facility] HermannCHEM SFZJT8400-37-55 10:37:55125Iefuhabr HermannCHEM USVEC3257-86-41 10:37:0013[facility] HermannCHEM JQISM9428-77-47 10:37:0023[facility] HermannCHEM GBWXM9343-68-58 10:37:002.5[facility] HermannCHEM WZZNZ0287-85-50 10:37:000.5[facility] HermannCHEM IAKOK2113-56-85 10:37:003.7 [facility]annCHEM MDEFF8320-34-55 10:37:006.0[facility] HermannCHEM PANEL 2016-03-20 10:37:0025[facility] HermannCHEM RWGSL8960-90-69 10:37:008.8[facility] HermannCHEM VOMUU5239-33-54 10:37:000.76[facility] HermannCHEM YHSOW6763-13-58 10:37:06158Ysunnyhx HermannCHEM ROGUW0835-33-79 10:37:71780Ivojoqej HermannCHEM QBUIY2911-32-79 10:37:004[facility] HermannCHEM KGLAO2916-10-79 10:37:60354 [facility]annCHEM HRARJ8100-85-86 10:37:003.6[facility] HermannCHEM PANEL 2016-03-20 10:37:002.0[facility] PwdekieQFWJBOLAMC4017-78-86 10:37:0053.2[facility] MhfzsofYRMRXTQWKB5887-96-92 10:37:0036.3[facility] NposexaDYRFUVVLJG0213-95-01 10:37:008.0[facility] AdjptxzYFYDQEZWMJ3782-95-53 10:37:001.9[facility] HEPLXRFLIN8884-18-06 10:37:000.6[facility] BifsknoGHIZBMPEKX4651-70-76 10:37:000.6 [facility] GltjjofPQNSBTDYDG0183-68-47 10:37:000.1[facility] HermannHEMATOLOGY 2016-03-20 10:37:003.9[facility] TtduzcjOIYYJLRUDP8335-11-20 10:37:002.6[facility] UqgyekrUBDLAFRRPW5445-69-04 10:37:00 Test Item Value Reference Range Interpretation Comments MCH (test code = MCH) 27.9 pg 27.0-31.0 [facility] CwlrribCGQXACMHQF7227-11-36 10:37:003.23[facility] HermannHEMATOLOGY 2016-03-20 10:37:009.0[facility] IdfftvbXVEWSYDDWN7165-41-90 10:37:0027.1[facility] DanqhncHEONZTLYQM8281-85-37 10:37:0084.0[facility] YosnzdvAKDDGPGABY7374-19-73 10:37:007.2[facility] TgevjgqGAYAQTJNOL5236-72-74 10:37:0033.2[facility] OFFVPZSWWD8017-80-09 10:37:23249Tiwjhnqz SegbaxeOKAANTGEBK1393-16-75 10:37:007.6 [facility] TpzhjlnERNKRMZQLJ3906-98-64 10:37:0015.3[facility] HermannANEMIA STUDY 2016-03-18 11:30:0025.2[facility] HermannANEMIA BAUZY7185-16-06 11:30:926552 [facility]annCHEM OPUGQ1757-11-70 11:30:11588.6[facility]annCHEM PANEL 2016-03-18 11:30:003.6[facility]annCHEM THXYU8921-17-24 11:30:000.7[facility]annCHEM YAARJ2082-21-42 11:30:0011.9[facility]annCHEM ACQZV0213-29-34 11:30:006[facility]annCHEM HOIAG0643-93-74 11:30:0090[facility]annCHEM YJKCT8063-28-49 11:30:91517Oghvnuru HermannCHEM MWCFC5262-11-57 11:30:000.4 [facility]annCHEM DNYKO9743-65-83 11:30:008.6[facility]annCHEM PANEL 2016-03-18 11:30:005[facility]annCHEM BFHFV5597-52-77 11:30:0016[facility]annCHEM ATUSY2039-33-63 11:30:0032[facility]annCHEM CXRDG1629-45-12 11:30:002.5[facility]annCHEM PQHSV1012-76-85 11:30:006.1[facility]annCHEM VDWHL4443-77-73 11:30:000.78[facility]annCHEM GZOFT7512-79-92 11:30:99829 [facility]annCHE[facility] MOLWN2051-59-67 11:30:15211Okzaruce HermannCHEM PANEL 2016-03-18 11:30:0028[facility]annCHEM WRTII0801-42-02 11:30:003.9[facility]annCHEM IJLXR9881-48-46 11:30:13917Bhrojkqq HermannCHEM YVPMO3618-35-48 11:30:003.3[facility]annCHEM YWTYC4475-32-45 11:30:001.9[facility] QJQJFWJXLT4869-32-80 11:30:006.0[facility] RwilerwWBBWWKUITG3571-38-45 11:30:001.6 [facility] ZhrkhuwOUUVNGSXEF5816-47-94 11:30:0027.6[facility]annHEMATOLOGY 2016-03-18 11:30:0064.1[facility] VhkfilrNJXCLHIXGJ5548-76-95 11:30:005.3[facility] AtlvfvsXMGZMTDRDC6912-88-29 11:30:000.7[facility] UwrglycLMIQMHTFJM9711-80-48 11:30:000.1[facility] BkphpzoRLDPOBSDNI3949-56-78 11:30:000.1[facility] GDHBYNLVXM5612-48-40 11:30:002.3[facility] JrjhlkyMOINCURUYK1300-31-91 11:30:000.5 [facility] YcdpdccMCNKBRYLVT2980-64-55 11:30:0074[facility]annHEMATOLOGY 2016-03-18 11:30:008.3[facility] IkukcagMCPXCRPZMX7292-29-00 11:30:003.31[facility] AvvpjraFXHBGPIBKN2890-65-60 11:30:009.2[facility] AkwafahKFLRILMEWH2521-90-86 11:30:0085.0[facility] RamdkzeTDCEKNKPEZ9814-57-96 11:30:00 Test Item Value Reference Range Interpretation Comments MCH (test code = MCH) 27.8 pg 27.0-31.0 [facility] FjnoikmDZMWXIUIJQ5855-72-16 11:30:0028.2[facility]annHEMATOLOGY 2016-03-18 11:30:0015.0[facility] VqcmvdfGMQQZILHJR6144-23-99 11:30:36977Tcjgmjkl QcltqeoPKOEQQPYEK5668-21-83 11:30:007.7[facility] XkmrxmaAJTBURSVLQ7065-30-76 11:30:0032.7[facility] GrsvwmuLYEZUSULFM0102-13-88 11:30:0020.1[facility] CHEM JXAFD0440-29-30 09:08:003.5[facility]annCHEM MSDJS0843-01-86 09:08:000.7 [facility]annCHEM IKLWX8187-22-49 09:08:0011.6[facility]annCHEM PANEL 2016-03-17 09:08:005[facility]annCHEM TNDVD7790-98-25 09:08:002.4[facility]annCHEM MTIWQ0792-45-07 09:08:008.5[facility]annCHEM ZWMAO9438-52-91 09:08:005.9[facility]annCHEM REIEW4703-03-02 09:08:0035[facility]annCHEM TLMZH7325-87-84 09:08:56011Kqdfjlwr HermannCHEM VDCGV2635-71-85 09:08:0018 [facility]annCHEM DAPHP4212-24-75 09:08:81584Rskeazyb HermannCHEM PANEL 2016-03-17 09:08:0027[facility]annCHEM IGXWO2699-30-36 09:08:000.86[facility]annCHEM YWODT3911-12-78 09:08:14311Lvoxhkjr HermannCHEM CZVYU9755-55-81 09:08:004[facility]annCHEM WGAOC8717-12-32 09:08:003.6[facility]annCHEM ZEXXT6351-71-94 09:08:53480Seuqpkpj HermannCHEM TWJOI2085-53-65 09:08:0086 [facility]annCHEM UNPBO4099-86-16 09:08:000.4[facility]annHEMATOLOGY 2016-03-17 09:08:007.7[facility] MtqbfewOUGEMGPDNO1349-65-47 09:08:25052Hopotufn TjvdwseOFBZMVVQWK0133-91-24 09:08:003.05[facility] YjgvicmIWTWDHXJDQ9287-27-30 09:08:008.4[facility] EvpqiwwDOOYMENNBB0901-25-73 09:08:008.6[facility] KAUGCKUZVA9517-02-44 09:08:0026.4[facility] UvrbzccRPVXNSKOQM7940-57-46 09:08:00 Test Item Value Reference Range Interpretation Comments MCH (test code = MCH) 28.1 pg 27.0-31.0 [facility] UiabiapLYZNTLAANL7665-28-66 09:08:0086.3[facility]annHEMATOLOGY 2016-03-17 09:08:0014.8[facility] NmbqovpXPUGKRVMGX9700-39-82 09:08:0032.5[facility] IfpdmakIXCWZYXCBE0769-87-28 09:08:005.5[facility] LorczrcRPWUAHHASQ4193-95-70 09:08:000.8[facility] ZfnhpdyBWGQVWKOPX1596-68-39 09:08:000.6[facility] MGYSZMJYXN7996-26-54 09:08:002.1[facility] TiioqttYZFUOFWGNQ4017-80-38 09:08:000.1 [facility] UaionbzUOTIHPCYNN5894-78-76 09:08:000.1[facility]annHEMATOLOGY 2016-03-17 09:08:0024.9[facility] ObvarppXTWXJRCDLM8847-99-72 09:08:0066.2[facility] NbkvahhMNQJIGTNYI5961-60-13 09:08:001.3[facility] JzlaqzhUULZDTINCD2180-53-47 09:08:006.8[facility]annCHEM UWONU1761-10-36 11:47:002.1[facility]annCHEM JATWD2987-57-85 11:47:003.4[facility]annCHEM QHVNJ9704-16-19 11:47:0087 [facility]annCHEM EOWWV5616-19-18 11:47:005.9[facility] HermannCHEM PANEL 2016-03-16 11:47:0019[facility]annCHEM HSKMF1863-96-56 11:47:0034[facility] HermannCHEM WVHJU9664-90-45 11:47:000.3[facility]annCHEM QHRJA9216-82-39 11:47:16794Enmntvur HermannCHEM HJWJZ5261-19-13 11:47:002.4[facility] HermannCHEM HRJTR9039-57-33 11:47:005[facility]annCHEM GQEZT2534-38-72 11:47:11059 [facility]annCHEM OYLGV7556-85-87 11:47:62599Sjztimus HermannCHEM PANEL 2016-03-16 11:47:000.85[facility] HermannCHEM CADGX8534-68-56 11:47:90074Srlbukzz HermannCHEM RYTRW1328-58-86 11:47:003.9[facility]annCHEM YKJAN2831-78-38 11:47:008.4[facility] HermannCHEM ITCFX6589-05-12 11:47:0025[facility]annCHEM MJKQB7096-85-76 11:47:006[facility]annCHEM RSXPD0919-74-43 11:47:0011.9 [facility]annCHEM ODRCD3390-81-04 11:47:000.7[facility] HermannCHEM PANEL 2016-03-16 11:47:003.5[facility] YxmrqsxCHBOPREZHY8574-53-43 11:47:000.1[facility] XjlhcbqVHFDTCMENW6893-19-08 11:47:000.6[facility] JambcxcELQWVRCMTX1406-78-08 11:47:000.1[facility] VzhodapEHAUAGIQDV1231-64-05 11:47:0065.0[facility] LAFEXYTFSE2827-92-75 11:47:001.9[facility] PbnbcgeZPDNPWDZSK2732-32-37 11:47:004.9 [facility] UmqnvmpBSHRSCPDLO3956-19-82 11:47:001.0[facility]MATOLOGY 2016-[facility]-16 11:47:007.3[facility] ZwzgpktGPYBFVFBLP4320-93-81 11:47:0025.3[facility] JufepeeYQMNIOEQAY3820-66-08 11:47:001.4[facility] MeaufptSEFOBUXWRZ1944-72-65 11:47:73088Kcyydjah HmczfivNWBXPRYRZM0641-42-13 11:47:0014.6[facility] BBFYRUOBGG2172-09-73 11:47:007.7[facility] PxjoolrYGBMIGVCYH2238-65-44 11:47:00 89.8[facility] FczbuddZBWOXJBTXN7420-16-46 11:47:00 Test Item Value Reference Range Interpretation Comments MCH (test code = MCH) 27.7 pg 27.0-31.0 [facility] DgovhbkMOBTGWEVGE2523-84-17 11:47:0030.9[facility]annHEMATOLOGY 2016-03-16 11:47:008.6[facility] ZbsspjvDNVTNAQDQF7961-66-41 11:47:003.09[facility] WzmfjzyMRQWFKVOLV3679-08-76 11:47:007.6[facility] HqkikccKRJGNRTJMA8525-98-05 11:47:0027.8[facility] HermannCHEM ZLVNW1970-86-16 10:06:003.1[facility]annCHEM BWAUF0498-04-91 10:06:002.3[facility]annCHEM MNCAV1109-66-66 10:06:0020 [facility]annCHEM RZQYG5321-85-91 10:06:54907Rtqqukox HermannCHEM PANEL 2016-03-15 10:06:000.4[facility]annCHEM FYAHV1985-52-31 10:06:002.2[facility]annCHEM FDRKD3671-22-90 10:06:005.6[facility]annCHEM QXITH0898-42-55 10:06:008.2[facility]annCHEM ZGPNS3371-56-74 10:06:0040[facility]annCHEM RCMEM7700-95-14 10:06:0087[facility]annCHEM MENKE2092-12-93 10:06:000.84 [facility]annCHE[facility] UPDGL3991-38-25 10:06:55801Ynntesnb HermannCHEM PANEL 2016-03-15 10:06:04852Jmnzfclt HermannCHEM TNHXP3549-27-59 10:06:004.2[facility]annCHEM POXQG3215-55-52 10:06:04620Vaaoesiw HermannCHEM XKZYJ5767-42-53 10:06:0010[facility]annCHEM OVDDZ1435-40-26 10:06:0026[facility]annCHEM IHGHP8589-65-35 10:06:0012.2[facility]annCHEM RJVVK7531-61-89 10:06:000.6 [facility]annCHE[facility] JNMUE0884-92-38 10:06:0012[facility]annCHEM PANEL 2016-03-15 10:06:003.4[facility] VaiwrvuNZOGCIUPOO0885-67-62 10:06:001.6[facility] WeknwylHCBPSEXBFB4388-62-24 10:06:006.6[facility] EkbzuquDXFZELKWDF3265-19-15 10:06:0022.1[facility] MrnfsutGJLXMHVDBY8249-95-55 10:06:0068.8[facility] HEHWFIGMPM5578-57-05 10:06:000.5[facility] JslvtflVCRKFNPGMZ9971-61-46 10:06:000.1 [facility] VhzqkjqYIMLNBTETM3759-78-86 10:06:000.1[facility]annHEMATOLOGY 2016-03-15 10:06:005.5[facility] ZowbnmnMGCMYHJNCC7462-16-38 10:06:000.9[facility] EclebipOZCUNVWCHE9938-19-69 10:06:001.8[facility] NcetslvLAIQNNCPDN9170-54-31 10:06:0023.5[facility] SwjssrqLTPYHYJYVK6854-44-82 10:06:002.73[facility] JWCNWVOBZL6571-40-57 10:06:007.6[facility] VwzxwwtLHLTYTMAIP7100-41-96 10:06:00 14.9[facility] QipyigsZZCOIQWFDV2560-08-76 10:06:62664Obsiexga HermannHEMATOLOGY 2016-03-15 10:06:008.0[facility] RxsudygKLBJLPMJHF9896-46-76 10:06:007.9[facility] ByuhajhHMZMOYNIGS6997-44-83 10:06:0032.4[facility] GwnndklTDQUYNJVZV7944-33-06 10:06:0086.0[facility] AlxmgsxLQNGIBNARQ1485-09-65 10:06:00 Test Item Value Reference Range Interpretation Comments MCH (test code = MCH) 27.8 pg 27.0-31.0 [facility]annCHEM FPAFE4126-61-04 10:52:001.9[facility]annCHEM PANEL 2016-03-14 10:52:003.2[facility]annURINE AND ANSRL1316-03-08 17:44:002 [facility] XEHPV8773-73-21 17:44:00Negative (03/13/16 11:44 AM) [facility] SZGDT3662-41-50 17:44:00<1[facility] IYUZS6109-16-88 17:44:00Negative (03/13/16 11:44 AM)[facility] WWJHI3975-16-70 17:44:00Negative (03/13/16 11:44 AM)[facility] WZIFC9402-06-49 17:44:001.008[facility] ZTLQY3144-39-42 17:44:00 Clear (03/13/16 11:44 AM)[facility] DVBHY2280-19-04 17:44:006.5 [facility] QMNRR3545-60-25 17:44:00Yellow *NA*(03/13/16 11:44 AM) [facility] DWYPE7371-14-07 17:44:00Negative *NA*(03/13/16 11:44 AM)[facility] TeaprnxQKCJIUXCSM8658-37-92 11:27:00Normal (03/11/16 5:27 AM) [facility] JhmhkawCRCCBGETVL3098-50-28 15:46:001+ *ABN*(03/10/16 9:46 AM)[facility] LefuyigGWIDDEBNML0749-43-06 11:37:000.0[facility] YsnwkrjSMVCTXMQOB2923-35-14 11:37:001.0[facility] MsskpjoYPRKMEMLCB4921-27-29 11:37:00Normal (03/08/16 5:37 AM)[facility] WgemreoMWKORBEGAD1517-60-05 11:37:000.0[facility]annHEMATOLOGY 2016-03-08 11:37:001.0[facility] HermannPARATHYROID KRPOGCP7216-94-19 22:22:001.05 [facility] HermannPARATHYROID ZZHUFFF3846-64-35 22:22:001.06[facility] HermannCHEM KJHMN7500-98-21 07:39:001.24[facility] MnsljveHAWPQEAGPC4051-17-02 07:39:16109 [facility] AnjejoiCKWTEPUPHI1687-81-79 07:39:59713.0[facility]annHEMATOLOGY 2016-03-05 14:46:001+ *ABN*(03/05/16 8:46 AM)[facility]HEMATOLOGY 2016-03-05 14:46:00Normal (03/05/16 8:46 AM)[facility] ZxkyffcXAJJFVGOQQ9750-74-33 14:46:002.0[facility] TbceztsWPQWJQZEDJ7907-43-06 14:46:000.0[facility] CSGJFPBIGA2606-62-95 14:46:001.0[facility] HermannPARATHYROID KPJPCRW2008-95-53 22:26:001.09[facility] HermannPARATHYROID KSGCAFH3319-60-36 22:26:001.07[facility] ZEYDD3895-02-13 17:57:003[facility] STOOL 2016-03-04 17:57:00Occasional *ABN*(03/04/16 11:57 AM)[facility] KBGTG9490-02-35 17:57:0014[facility] OUIHD6326-26-17 17:57:003 [facility] VFNZJ6136-01-31 17:57:006.0[facility] LGXVQ6629-36-00 17:57:001.018[facility] UYCRA6057-97-64 17:57:00 Yellow *NA*(03/04/16 11:57 AM)[facility] WKPDW7539-95-60 17:57:00 Clear (03/04/16 11:57 AM)[facility] BFSOM4166-93-47 17:57:00 Negative (03/04/16 11:57 AM)[facility] ECROJ5712-66-86 17:57:00 Negative *NA*(03/04/16 11:57 AM)[facility] VGKDY8190-07-03 17:57:00Negative (03/04/16 11:57 AM)[facility] NCWOA3749-72-22 17:57:00Small *ABN*(03/04/16 11:57 AM)[facility] HermannCARDIAC RBELTOM0387-03-07 10:27:000.03[facility] HermannCARDIAC EPFKRVX3655-05-05 10:27:56474Sochdidc HermannCARDIAC IXUZKII3750-77-93 10:27:000.5[facility]annCARDIAC ENZYMES 2016-03-04 10:27:000.9[facility] HermannCHEM KHNIM7563-08-16 10:27:000.1[facility] HermannCHEM FLCAJ4456-39-42 10:27:000.3[facility] HiafzjeTBPADBHXDS1790-45-44 10:27:230580Kdfgkroq ZfchaarAXVJMBVNSF7329-18-21 10:27:00<0.8[facility] CHEM LBSJV2791-43-05 23:04:001.3[facility] HermannCARDIAC EORDVTU2505-15-16 23:26:001.6[facility]annCARDIAC USTGECW9159-91-16 23:26:002.8[facility] CARDIAC COBRGJY5104-44-85 23:26:000.02[facility] HermannCARDIAC RHEXLJB6873-29-05 23:26:26605Ocjegpzo HermannBLOOD BANK LLECHHL6976-00-78 18:20:00Product available (02/29/16 12:20 PM)[facility] QpvhprdLEMANTHGLL5370-25-65 07:23:380533 [facility] WleqzpmAXJCWDVSGH2594-80-24 07:23:009.4[facility] HermannBLOOD BANK DSULRWY2743-25-26 18:45:00Negative (02/28/16 12:45 PM)[facility] ATKSK9609-37-83 14:36:46471Mpfyraav HermannURINE AND ZSEAD8974-53-09 14:36:00 Small *ABN*(02/28/16 8:36 AM)[facility] JGSIS2512-31-48 14:36:009 [facility] DQABZ2614-92-02 14:36:00Yellow *NA*(02/28/16 8:36 AM) [facility] BAPRI1080-73-53 14:36:001.037[facility] SDERJ6631-25-30 14:36:00Clear (02/28/16 8:36 AM)[facility] STOOL 2016-02-28 14:36:00Negative *NA*(02/28/16 8:36 AM)[facility] STOOL 2016-02-28 14:36:00Moderate *ABN*(02/28/16 8:36 AM)[facility] WNUFE2537-17-93 14:36:00Negative (02/28/16 8:36 AM)[facility] HKOSW8054-62-06 14:36:006.0[facility] HermannCHEM CEDJC4621-92-07 18:02:001.8 [facility]annCHEM BITNA0593-05-58 14:39:002.4[facility] HermannPARATHYROID ZTEJCYD1436-76-42 14:39:001.19[facility] HermannPARATHYROID OUUDQHY1259-60-35 14:39:001.13[facility]annBLOOD BANK GOVDGVD0579-37-34 10:30:00Negative (02/25/16 4:30 AM)[facility] DghdyntLRWECB9290-83-56 10:57:002.76[facility] GJYWNF4983-23-63 10:57:0037[facility] XpgjttmIRWLTQ3898-03-03 10:57:0023[facility] NevnclpOZRHHO7453-17-98 10:57:52257Dnwfwlal IpwlstcBWPNBI5617-45-69 10:57:0034 [facility] EfoexiyMQERWE7782-55-66 10:57:0094[facility]annSPECIAL CHEMISTRY 2016-02-24 10:57:005.9[facility] ZgjwrsjVHQBDQTZBC2517-11-37 09:33:00 Test Item Value Reference Range Interpretation Comments PT (test code = PT) 15.5 s 12.0-14.7 [facility] RwsiefgCQMMVDYOPR2313-66-10 09:33:001.20[facility]annHEMATOLOGY 2016-02-22 09:33:00 Test Item Value Reference Range Interpretation Comments PTT (test code = PTT) 27.0 s 22.9-35.8 [facility]annBLOOD BANK DIDMEOY4464-25-05 11:56:00Negative (02/21/16 5:56 AM) [facility]annBACTERIAL - HOYPBGCI0729-12-66 21:30:00Negative (02/08/16 3:30 PM)[facility] HermannCHEM XWPMR7079-20-61 21:30:0029[facility]annHEMATOLOGY 2016-02-08 21:30:00 Test Item Value Reference Range Interpretation Comments PT (test code = PT) 13.1 s 12.0-14.7 [facility]pbszadGNMKACPYEG1382-88-18 21:30:00 Test Item Value Reference Range Interpretation Comments PTT (test code = PTT) 29.2 s 22.9-35.8 [facility] UcpieneOHVSHPUPTD4572-25-20 21:30:000.97[facility] HermannIMMUNOLOGY 2016-02-08 21:30:00Negative *NA*(02/08/16 3:30 PM)[facility] HermannIMMUNOLOGY 2016-02-08 21:30:00Negative *NA*(02/08/16 3:30 PM)[facility] YILIT4319[facility]32[facility]07 21:30:00Not Indicated *NA*(02/08/16 3:30 PM)[facility] URINE KWTN8334-24-45 21:30:00Negative *NA*(02/08/16 3:30 PM)[facility]
--- OUTSIDE RECORDS SUMMARY | 2020-03-01 15:49 | XMS REPORT | Summary of Care ---
:1940 Author Name Lian ALLISON Address Unavailable Unavailable , Care Team Providers Name Role Phone KAMRYN Beltran Unavailable Unavailable ANABEL Beltran Unavailable Unavailable MARIA TERESA Beltran Unavailable Unavailable HOMER Beltran Unavailable Unavailable ORIN VASQUEZ Unavailable Unavailable HOMER VASQUEZ Unavailable Unavailable ORIN VASQUEZ, Justin Unavailable Kelli HARRY MD Unavailable Unavailable MARIA TERESA VASQUEZ Unavailable Unavailable ANABEL VASQUEZ [place] Unavailable Unavailable KALI VASQUEZ Unavailable Unavailable Unavailable Unavailable Unavailable Functional Status Name Dates Details Functional status health issues are not documented Status: Name Dates Details Cognitive status health issues are not documented Status: Problems Name Dates Details Chronic coughing (786.2, R05) Status: Ac tive Gastric regurgitation (787.03, R11.10) S tatus: Active Heartburn (787.1, R12) Status: Active Hiatal hernia (553.3, K44.9) Status: Act priya Nocturnal cough (786.2, R05) Status: Act priya Arthropathy, transient, shoulder, left (716.41, M12.812) Status: Active Chronic right shoulder pain (719.41, M25.511) Status: Active Shoulder pain, left (719.41, M25.512) St atus: Active Low back pain (724.2, M54.5) Status: Act priya 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, Z98.1) Status: Active Cervical myelopathy (721.1, G95.9) Statu s: Active Unsteady gait (781.2, R26.81) Status: Ac tive 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 Quantity: 20 Refills: 0 MELY MOREL M.D. Start : 13-Apr-2016 Active Rasagiline Mesylate 1 MG Oral Tablet Refills: 0 Active Synthroid 50 MCG Oral Tablet Refills: 0 Active Metoprolol Tartrate 25 MG Oral Tablet Refills: 0 Active Tylenol 8 Hour 650 MG Oral Tablet Extended Release TAKE 1 TABLET EVERY 4 HOURS Quantity: 60 Refills: 0 HARINDER LITTLE M.D. Start : 08-Jan-2017 Active Albuterol Sulfate (2.5 MG/3ML) 0.083% Inhalation Nebulization Solution USE 1 UNIT DOSE IN NEBULIZER EVERY 4 TO 6 HOURS NEEDED. Quantity: 1 Refills: 3 MEGGAN HARRY M.D. Start : 31-May-2017 Active 60 x 3 ML Plas Cont Albuterol Sulfate 1.25 MG/3ML Inhalation Nebulization Solution 1 unit dose by nebulizer in clinic Refills: 0 MEGGAN HARRY M.D. Start : 30-Aug-2017 Admin Requested Ipratropium [place] 0.02 % Inhalation Solution one dose at [...] Active 30 x 3 ML Plas Cont Ipratropium [place] 0.02 % Inhalation Solution one dose at clinic now Refills: 0 MEGGAN HARRY M.D. Start : 30-Aug-2017 Admin Requested Esomeprazole Magnesium 20 MG Oral Capsule Delayed Release take one capsule 30 minutes before first meal of the day and one capsule 30 minutes before evening meal Quantity: 1 Refills: 3 MEGGAN HARRY M.D. Start : 30-Aug-2017 Active 90 Capsule Bottle Trelegy Ellipta 100-62.5-25 MCG/INH Inhalation Aerosol Powder Breath Activated use one puff one time daily and rinse mouth afterwards Quantity: 1 Refills: 3 MEGGAN HARRY M.D. Start : 31-May-2017 Active 60 Each Pack QC Fluticasone Propionate 50 MCG/ACT SUSP 2 sprays each nostril once daily Quantity: 2 Refills: 5 JANY CORONEL M.D. 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, J44.9) Status: Resolved History of back pain (V13.59, Z87.39) St atus: Resolved History of Benign prostatic hyperplasia with lower urinary tract symptoms, unspecified morphology Status: Resolved History of cataract (V12.49, Z86.69) Sta tus: Resolved History of Cervical radicular pain (723.4, M54.12) Status: Resolved History of Chronic right hip pain (719.45, M25.551) Status: Resolved History of Class 1 obesity with serious comorbidity and body mass index (BMI) of 30.0 to 30.9 in adult, unspecified obesity type (278.00, E66.9) Status: Resolved History of claustrophobia (V11.8, Z86.59) Status: Resolved History of Complete tear of right rotator cuff (727.61, M75. 121) Status: Resolved History of cough Status: Resolved History of cough Status: Resolved History of depression (V11.8, Z86.59) St atus: Resolved History of Diabetes mellitus type 2 in obese (250.00, E11.69 ) Status: Resolved History of diverticulitis of colon (V12.79, Z87.19) Status: Resolved History of dyspnea (V12.69, Z87.09) Stat us: Resolved History of Gastroesophageal reflux disease without esophagit is (530.81, K21.9) Status: Resolved History of Hip abductor tendonitis, right (726.5, M76.891) Status: Resolved History of Hospital-acquired pneumonia (486, J18.9) Status: Resolved History of Iliotibial band syndrome of right side (728.89, M 76.31) Status: Resolved History of kidney stones (V13.01, Z87.442) Status: Resolved History of kyphosis (V13.59, Z87.39) Sta tus: Resolved History of low back pain (V13.59, Z87.39) Status: Resolved History of Lumbar foraminal stenosis (724.02, M48.061) Status: Resolved History of Lumbar radicular pain (724.4, M54.16) Status: Resolved History of Lung disease (518.89, J98.4) Status: Resolved History of neck pain (V13.59, Z87.39) St atus: Resolved History of neuropathy (V12.49, Z86.69) S tatus: Resolved History of Other hyperlipidemia (272.4, E78.49) Status: Resolved History of Other specified hypothyroidism (244.8, E03.8) Status: Resolved History of Postoperative infection, initial encounter (998.5 9, T81.40XA) Status: Resolved History of Pseudarthrosis after fusion or arthrodesis (996.4 9, M96.0) Status: Resolved History of Pulmonary nodule (793.11, R91.1) Status: Resolved History of Severe obstructive sleep apnea (327.23, G47.33) Status: Resolved History of Shoulder pain (719.41, M25.519) Status: Resolved History of Stroke (434.91, I63.9) Status : Resolved History of Subacromial bursitis (726.19, M75.50) Status: Resolved History of Subacromial impingement of right shoulder (726.19 , M75.41) Status: Resolved History of thyroid disease (V12.29, Z86.39) Status: Resolved History of weakness (V13.89, Z87.898) St atus: Resolved History of wheezing (V12.69, Z87.898) St atus: Resolved Procedures Procedure Dates Details History of Rotator Cuff Repair Completed History of Capsulotomy Left Foot First MTP Completed History of Hemicolectomy Completed History of Lumbar Vertebral Fusion Compl eted History of Neuroplasty Left Thumb Comple vaysl History of Lower Back Surgery Lumbar Disc Completed History of Cataract Surgery Completed History of Shoulder Surgery Completed Immunization Name Dates Details Prevnar 13 Intramuscular Suspension on: 01-Mar-2017 Lot #: [id number] Influenza, high dose seasonal, preservative-free on: 2017 Lot #: [id number] Family History Name Dates Details Family history of emphysema (V17.6, Z82.5) Status: Active Name Dates Details Family history of Type 2 diabetes mellitus without com plication (250.00, E11.9) Status: Active Family history of emphysema (V17.6, Z82.5) Status: Active Family history of Type 2 diabetes mellit us without complication, without long- term current use of insulin (250.00, E11.9) Status: Ac tive Family history of retinal detachment (V19.19, Z83.518) Status: Active Social History Name Dates Details - Status: Name Dates Details Ex-smoker (finding) Ex-smoker (finding) Vital Signs Date Test Result Details [id number]-[id number] Systolic blood pressure 131 mm[Hg] Status: Comments: Location: RUE; Position: Sitting Diastolic blood pressure 74 mm[Hg] Status: Comment s: Location: RUE; Position: Sitting Body height 71 in Status: Weight 210.375 lb Status: Body mass index (BMI) [Ratio] 29.34 kg/m2 Status: Body surface area Derived from formula 2.15 m2 S tatus: Body temperature 99.2 f Status: Comments: Me thod: Temporal Heart Rate 93 /min Status: Comments: Lo cation: R Brachial Artery; Quality: Normal Respiratory rate 22 /min Status: Comments: Qu ality: Normal O2 SAT 91 % Status: Comments: So urce: RA Results Date Description Value Details Results not documented Plan of Care Name Dates Details Planned Observations Planned Goals not documented Planned Encounters Appointment; JANY CORONEL M.D. On: 24-Jun-2020 13 :00 Instructions Name Dates Details Instructions not documented Encounters Appointment; MELY MOREL M.D. On: 02-Apr-2018 1 4:00 Encounter Diagnosis: Problem not documented Appointment; HARINDER LITTLE M.D. On: 15-Apr-2018 11:3 0 Encounter Diagnosis: Problem not documented Appointment; NABIL YAO M.D. On: 24-Apr-2018 11: 00 Encounter Diagnosis: Problem not documented Appointment; HARINDER LITTLE M.D. On: 30-Apr-2018 10:00 Encounter Diagnosis: Problem not documented Appointment; DICK LIZAMA M.D. On: 07-May-2018 10: 30 Encounter Diagnosis: Problem not documented Appointment; NABIL YAO M.D. On: 08-May-2018 13: 45 Encounter Diagnosis: Problem not documented Appointment; HARINDER LITTLE M.D. On: 17-May-2018 8:00 Encounter Diagnosis: Problem not documented Appointment; HARINDER LITTLE M.D. On: 30-May-2018 10:45 Encounter Diagnosis: Problem not documented Appointment; HARINDER LITTLE M.D. On: 04-Jul-2018 10:3 0 Encounter Diagnosis: Problem not documented Appointment; HARINDER LITTLE M.D. On: 15-Aug-2018 10:3 0 Encounter Diagnosis: Problem not documented Appointment; MELY MOREL M.D. On: 26-Dec-2018 1 3:15 Encounter Diagnosis: Problem not documented Appointment; MELY MOREL M.D. On: 21-Oct-2019 10:15 Encounter Diagnosis: Problem not documented Appointment; JANY CORONEL M.D. On: 04-Nov-2019 9 :40 Encounter Diagnosis: Problem not documented Appointment; MELY MOREL M.D. On: 27-Nov-2019 1 0:00 Encounter Diagnosis: Problem not documented Appointment; MELY MOREL M.D. On: 27-Nov-2019 1 0:30 Encounter Diagnosis: Problem not documented Appointment; JANY CORONEL M.D. On: 05-Feb-2020 1 3:20 Encounter Diagnosis: Problem not documented
[2020-03-01 15:55] VITALS: BMI 32.1
[2020-03-01] MEDS ORDERED: PNEUMOCOCCAL VACCINE 0.5 ML IMVAC ONE (16:00)
[2020-03-01] MEDS ORDERED: ONDANSETRON 4 MG/2 ML VIAL IV PRN (16:00)
[2020-03-01] MEDS ORDERED: NACHLORIDE 0.45% 1,000 ML IV SCH (16:00)
[2020-03-01] MEDS ORDERED: LOPERAMIDE HCL 2 MG CAPSULE PO PRN (16:00)
[2020-03-01] MEDS ORDERED: ONDANSETRON 4 MG (ODT) TAB PO PRN (16:00)
[2020-03-01] MEDS ORDERED: DIPHENHYDRAMINE 25 MG TAB/CAP PO PRN (16:00)
[2020-03-01] MEDS ORDERED: POLYETHYL GLY 3350 17 GM/DOSE PO PRN (16:00)
[2020-03-01] MEDS ORDERED: INFLUENZA VACCINE (for 3y+) 0.5 ML DOSE IMVAC ONE (16:00)
[2020-03-01] MEDS ORDERED: D50W 25 GM/50 ML SYRINGE IV PRN (16:02)
[2020-03-01] MEDS ORDERED: GLUCAGON 1 MG/VIAL IM PRN (16:02)
[2020-03-01 16:41] LABS: Absolute Lymphocytes (CBC) 0.9 K/uL (0.7-4.9); Basophils % 0.7 % (0-1.3); Hematocrit 36.6 % (39.6-49.0); Lymphocytes % 11.9 % (15.3-44.8); RBC Red Blood Cell Count 4.04 M/uL (4.33-5.43)
[2020-03-01 16:47] LABS: Protime INR 1.1
[2020-03-01] MEDS: CIPROFLOXACIN 400 MG/200 ML IVPB IV SCH ×2 (16:56→22:18)
[2020-03-01] MEDS: INSULIN -REGULAR HUMAN 50 UNIT/0.5 ML ML SQ SCH ×2 (16:58→21:00)
[2020-03-01] MEDS: ENOXAPARIN 40 MG/0.4 ML SQ SCH (16:58)
[2020-03-01] MEDS: METRONIDAZOLE 500mg IVPB 500 MG/100 ML BAG IV SCH (16:59)
[2020-03-01 17:30] LABS: ALT/SGPT 18 U/L (12-78); AST/SGOT 14 U/L (15-37); Albumin 3.1 g/dL (3.4-5.0); Alkaline Phosphatase 94 U/L (45-117); BUN Blood Urea Nitrogen 23 mg/dL (7-18); Bicarbonate 33 mmol/L (21-32); Bilirubin Direct < 0.1 mg/dL (0-0.2); Bilirubin Total 0.4 mg/dL (0.2-1.0); Glucose Level 153 mg/dL (74-106); Magnesium 1.8 mg/dL (1.8-2.4); Phosphorus 3.5 mg/dL (2.5-4.9); Potassium 3.8 mmol/L (3.5-5.1); Protein, Total 6.4 g/dL (6.4-8.2); Sodium Level 142 mmol/L (136-145)
--- NOTE | 2020-03-01 19:02 | RAD REPORT ---
EXAM DESCRIPTION: CT - Abdomen Pelvis W Contrast - 03/01/2020 6:40 pm CLINICAL HISTORY: Abdominal pain. COMPARISON: None. TECHNIQUE: Computed axial tomography of the abdomen and pelvis was obtained. 100 cc Isovue-300 is ad ministered intravenously. Oral contrast was given. All CT scans are performed using dose optimization technique as appropriate and may include automated exposure control or mA/KV adjustment according to patient size. FINDINGS: 5.5 centimeter hepatic cyst. Spleen, pancreas, adrenals and kidneys appear unremarkable. Sigmoidectomy. Postsurgical changes involve the spine. Diverticula stem from the colon without eviden ce of diverticulitis Normal appendix
--- NOTE | 2020-03-01 19:25 | RAD REPORT ---
EXAM DESCRIPTION: Geovany Wills And Luzma (2 Views)03/01/2020 7:03 pm CLINICAL HISTORY: Abdominal COMPARISON: October 2019 FINDINGS: The lungs appear clear of acute infiltrate. The heart is normal size IMPRESSION: No acute abnormalities displayed
[2020-03-01] MEDS ORDERED: TAMSULOSIN 0.4 MG SR CAP PO ONE (20:00)
[2020-03-01] MEDS ORDERED: METFORMIN HCL 500 MG TAB PO ONE (20:00)
[2020-03-01] MEDS ORDERED: METOPROLOL XL 25 MG TAB PO ONE (20:00)
[2020-03-01] MEDS ORDERED: APIXABAN 2.5 MG TABLET PO ONE (20:00)
[2020-03-01] MEDS ORDERED: PANTOPRAZOLE 40MG TABLET PO ONE (21:00)
[2020-03-01] MEDS ORDERED: APIXABAN 2.5 MG PO SCH (21:00)
[2020-03-01] MEDS ORDERED: LEVODOPA PO SCH (21:00)
[2020-03-01] MEDS ORDERED: HOME MED 1 EA UNK (Dexlansoprazole [Dexilant] 60 MG) PO SCH (21:00)
[2020-03-01] MEDS ORDERED: CARBIDOPA PO SCH (21:00)
[2020-03-01] MEDS ORDERED: ROPINIROLE HCL 0.5 MG PO SCH (21:00)
[2020-03-01] MEDS ORDERED: CARBIDOPA/LEVODOPA 25/100 TAB PO ONE (21:00)
[2020-03-01] MEDS ORDERED: ROPINIROLE HCL 0.25 MG TAB PO ONE (21:00)
[2020-03-01] MEDS ORDERED: PREGABALIN 75 MG PO SCH (21:00)
[2020-03-01] MEDS ORDERED: METFORMIN HCL 500 MG PO SCH (21:00)
[2020-03-01] MEDS ORDERED: ATORVASTATIN 40 MG TAB PO ONE (21:00)
[2020-03-01] MEDS ORDERED: HOME MED 1 EA UNK (Atorvastatin Calcium [Lipitor] 40 MG) PO SCH (21:00)
[2020-03-01] MEDS ORDERED: HOME MED 1 EA UNK (Tamsulosin [Flomax*] 0.4 MG) PO SCH (21:00)
[2020-03-01] MEDS ORDERED: PREGABALIN 75 MG CAP PO ONE (21:00)
[2020-03-02] MEDS: ACETAMINOPHEN 325 MG TABLET PO PRN ×2 (00:03→09:14)
[2020-03-02 05:34] LABS: Absolute Lymphocytes (CBC) 1.1 K/uL (0.7-4.9); Basophils % 0.6 % (0-1.3); Hematocrit 36.6 % (39.6-49.0); Lymphocytes % 15.3 % (15.3-44.8); RBC Red Blood Cell Count 3.99 M/uL (4.33-5.43)
[2020-03-02 05:35] LABS: Potassium 4.9 mmol/L (3.5-5.1)
[2020-03-02] MEDS ORDERED: HOME MED 1 EA UNK (Levothyroxine [Synthroid*] 50 MCG) PO SCH (06:00)
[2020-03-02 07:11] LABS: Urine Appearance CLEAR; Urine Bilirubin NEGATIVE (NEG); Urine Blood NEGATIVE (NEG); Urine Color YELLOW; Urine Glucose NEGATIVE (NEG); Urine Protein NEGATIVE (NEG); Urine Urobilinogen 0.2 mg/dL (0.2-1.0)
[2020-03-02] MEDS: INSULIN -REGULAR HUMAN 50 UNIT/0.5 ML ML SQ SCH ×2 (07:30→11:30)
[2020-03-02 07:45] LABS: Urine Microscopic Reflex NO UMIC
[2020-03-02] MEDS: METRONIDAZOLE 500mg IVPB 500 MG/100 ML BAG IV SCH ×2 (07:48)
[2020-03-02] MEDS: CIPROFLOXACIN 400 MG/200 ML IVPB IV SCH (07:48)
[2020-03-02] MEDS: ENOXAPARIN 40 MG/0.4 ML SQ SCH (07:48)
[2020-03-02] MEDS ORDERED: RASAGILINE MESYLATE 1 MG PO SCH (09:00)
[2020-03-02] MEDS ORDERED: HOME MED 1 EA UNK (Pantoprazole [Protonix Tab*] 40 MG) PO SCH (09:00)
[2020-03-02] MEDS ORDERED: POTASSIUM CL SA 10 MEQ TAB PO ONE (09:00)
[2020-03-02] MEDS ORDERED: UMECLIDIN IH SCH (09:00)
[2020-03-02] MEDS ORDERED: VILANTER IH SCH (09:00)
[2020-03-02] MEDS ORDERED: HOME MED 1 EA UNK (Multivitamin [Multivitamins] 1 EACH) PO SCH (09:00)
[2020-03-02] MEDS ORDERED: FLUTICASONE IH SCH (09:00)
[2020-03-02 10:36] VITALS: O2SAT 94
[2020-03-02 12:44] VITALS: BP 114/60; TEMP 97.9
--- NOTE | 2020-03-02 15:07 | RAD REPORT ---
EXAM DESCRIPTION: MRI - Lumbar Spine Wo Con - 03/02/2020 2:39 pm CLINICAL HISTORY: Right Flank Pain COMPARISON: MRI LUMBAR SPINE W O CON dated 07/15/2013 TECHNIQUE: Sagittal T1-weighted, T2-weighted and T2-STIR weighted sequences were obtained. Axial T1 -weighted and heavily T2-weighted sequenceswere obtained through the lumbar disc levels. FINDINGS: Lumbar bodies are normal in height. Approximately 5 mm retrolisthesis L2 on L3 noted fract ionally worse than 2014. Alignment is otherwise normal and stable. Graft material is in place across the L5-S1 disc space. Pedicle screws and rods are in place spanning L3-S1. The L3 pedicle screws are new since 2013. No suspicious marrow signal. No paraspinal masses. Conus is normal with no clumping or thickening of the cauda equina. T12-L1 level: Early desiccation changes are present. No herniation or significant disc bulge. No madeline l or foramen stenosis peer L1-2 level: Disc is desiccated with loss in disc height. Bulging disc material extends across the jennifer tral canal and into each exit foramen. No central spinal stenosis. Left foraminal disc bulge causes m ild to moderate foraminal stenosis. Facet degenerative changes minimal. L2-3 level: Disc is desiccated with loss in disc height. Endplate spurring changes are present accent uated by the L2 retrolisthesis. Mild right-side and moderate left-sided foraminal stenosis present. N o central spinal stenosis. Central canal is 11 mm in the midline. L3-4 level: Disc is desiccated. Disc bulge and endplate spurring changes are present in each exit for amen. Mild to moderate left foraminal encroachment is present. Right foramen is probably moderately s tenotic. The surgical hardware limits detail. No central spinal stenosis. There is minimal mass effec t on the left lateral thecal sac from the posterior element degenerative and postsurgical decompressi on changes. L4-5 level: No herniation or significant disc bulge. No significant foraminal stenosis. Central canal is widely patent. L5-S1 level: Fusion material is present in the disc space which appears well healed. No herniation or significant disc bulge in the central canal. No canal stenosis. Mild to moderate bilateral foraminal encroachment changes are present. Detail is limited by hardware. IMPRESSION: No compression fracture or acute lumbar vertebral body finding. Fusion hardware is in place spanning L3-S1 with the L3 hardware new since 2014. Progressive L2-3 degenerative disc disease with increased but not new retrolisthesis of L2 on L3. No central spinal stenosis is present. No central canal disc herniation. Multilevel lhnb-vj-hadqojlo foraminal stenoses present. Foramen assessment is limited L3-S1 regions d ue to the artifacts from the pedicle screws.
[2020-03-02] MEDS ORDERED: METOPROLOL SUCCINATE 25 MG PO SCH (17:30)
== END 2020-03-02 15:08 | disposition home or self-care (01) ==
LOC: 2ND 15:08 → INTOOBSV 15:08
PROVIDERS: ADMIT Internal Medicine; ATTEND Internal Medicine
DX: R10.31 Right lower quadrant pain (principal); R10.32 Left lower quadrant pain; Z20.828 Contact with and (suspected) exposure to other viral communicable diseases; G20 Parkinson's disease; I10 Essential (primary) hypertension; E78.5 Hyperlipidemia, unspecified; F32.9 Major depressive disorder, single episode, unspecified; G47.33 Obstructive sleep apnea (adult) (pediatric); J44.9 Chronic obstructive pulmonary disease, unspecified; I48.91 Unspecified atrial fibrillation; K21.9 Gastro-esophageal reflux disease without esophagitis; C61 Malignant neoplasm of prostate; I69.359 Hemiplegia and hemiparesis following cerebral infarction affecting unspecified side; E11.59 Type 2 diabetes mellitus with other circulatory complications; Z79.84 Long term (current) use of oral hypoglycemic drugs; R53.83 Other fatigue; M54.9 Dorsalgia, unspecified
CPT/HCPCS: 87088; 85025 ×2; 87086; 80048 ×2; 36415; 83735 ×2; 84100; 85610; 82947 ×4; 80076; 85730; 84443; 81003; 83036; 82607; 82306; 82043; 74177; 71046; 72148; U0002; Q9967; J1650 ×2; J2405; J0744 ×3; G0379; G0378 ×2

== ENCOUNTER 2020-05-31 10:20 | Day surgery (SDC) | payer OTHER ==
[2020-05-28 11:13] VITALS: BMI 31.9
--- NOTE | 2020-05-28 12:11 | RAD REPORT ---
EXAM DESCRIPTION: RAD - Chest Pa And Lat (2 Views) - 05/28/2020 11:45 am CLINICAL HISTORY: pre-op clinical lab scientist procedure, pending cardiac catheterization COMPARISON: March 01, 2020 TECHNIQUE: Frontal and lateral views of the chest were obtained. FINDINGS: The lungs are underinflated with no peripheral mass or consolidation. Interstitial pattern generally matches comparison. No acute failure or volume overload suspected. No hilar or mediastinal mass or lymphadenopathy suspected. Trachea is midline. Heart size is normal and central vasculature is within normal limits. No pleural effusion or pneumothorax seen. No acut e bony finding noted. Bilateral shoulder joint prostheses in place. No aortic abnormality. IMPRESSION: No acute cardiopulmonary process. No significant change from comparison study.
[2020-05-28 12:43] LABS: Absolute Lymphocytes (CBC) 0.8 K/uL (0.7-4.9); Basophils % 0.4 % (0-1.3); Hematocrit 40.2 % (39.6-49.0); Lymphocytes % 9.4 % (15.3-44.8); MPV 7.7 fL (7.6-11.3); RBC Red Blood Cell Count 4.72 M/uL (4.33-5.43)
[2020-05-28 12:57] LABS: Protime INR 1.18
[2020-05-28 13:05] LABS: Potassium 4.3 mmol/L (3.5-5.1)
[2020-05-31] MEDS ORDERED: NA CHLORIDE 0.9% 500 ML ONE (11:56)
[2020-05-31] MEDS ORDERED: HEPARIN 5000 UNIT/ML 1 ML VIAL ONE ×2 (13:12→14:09)
[2020-05-31] MEDS ORDERED: VERAPAMIL HCL 10 MG/4 ML VIAL IV ONE (13:12)
[2020-05-31] MEDS ORDERED: NITROGLYCERIN 100 MCG/ML SYR (for cath lab use only) IV ONE (13:13)
[2020-05-31] MEDS ORDERED: NA CHLORIDE 0.9% 0 ML IV ONE (13:30)
[2020-05-31] MEDS ORDERED: FENTANYL CITR 100 MCG/2 ML ONE (13:33)
[2020-05-31] MEDS ORDERED: MIDAZOLAM HCL 2 MG/2 ML INJ ONE (13:33)
[2020-05-31 14:07] LABS: Arterial Blood Carboxyhemoglob 1.3 % (0-1.5); Blood Gas Oxyhemoglobin 62.9 % (94-97); Blood O2 Saturation 64.3 % (92-98.5)
[2020-05-31] MEDS ORDERED: HEPA 1000U/500MLS 2,000 UNIT/1,000 ML BAG IV ONE (14:54)
[2020-05-31] MEDS ORDERED: CARBIDOPA/LEVODOPA 25/100 TAB PO SCH (17:00)
[2020-05-31 17:14] VITALS: BP 121/71; TEMP 98.5; O2SAT 95
--- NOTE | 2020-05-31 19:19 | OP ---
Date of Procedure: 05/31/2020 Surgeon: KELTON LOO Procedure Performed: 1.Selective coronary angiogram. 2.FFR of proximal LAD, moderate disease, value is 0.86, which is insignificant. 3.Right heart catheterization. 4.Left heart catheterization. Access: 1.Right radial artery 6-Moldovan closed with TR band. 2.Right IJ 7-Moldovan closed with manual pressure. Complications: None. Indication: 1.Unstable angina. 2.CHF. Bleeding: Less than 5 mL. Description Of Procedure: After risks, benefits, and alternatives were explained, the patient agreed to the procedure and signed informed consent and then we gave fentanyl and versed in incremental dos es to achieve adequate moderate sedation. Then I accessed right IJ under ultrasound guidance with a micropuncture kit and placed a 7-Moldovan sheath and right radial was accessed using pediatric micropun cture kit and placed a 6-Moldovan slender sheath. I took a 7-Moldovan balloon tip Dixon-Jamie catheter thr ough the venous access into the RA, recorded a pressure waveform and then the RV, recorded pressure w aveform and then the PA, recorded pressure waveform and PA sat, and then the wedge recorded pressure waveform. Dixon catheter was removed and then we took a 5-M[place]ovan [place] catheter into the aortic root through the radial access over J-wire and engaged the left main and the right coronary artery and too k standard views. Intervention Details: We gave systemic heparin to assure ACT level above 250. Then we took the come t wire into the aortic root and pressures were equalized and the wire was passed through left main in to the LAD passing the stenosis, recorded the IFR was 0.91, and then FFR was done, it was 0.86 and wi re was removed and final pictures showed no complications. Then, we removed the catheter and sheath and placed TR band with good hemostasis. Findings: 1.Left main is large and normal. 2.LAD, large vessel, proximal 50% stenosis with negative IFR of 0.86. 3.Left circumflex is with luminal irregularities. 4.RCA is dominant with no significant disease. 5.We passed the catheter over the wire into the left ventricle and recorded LVEDP of 29 mmHg. Upon pullback, there was no difference in pressure. Right heart catheterization numbers: RA pressure was 13, RV pressure was 43/14, mean of 16. PA pres sure was 42/25 with mean of 32. Pulmonary wedge pressure was 20. Conclusion: 1.Moderate proximal LAD disease with insignificant FFR value of 0.86. 2.Elevated LVEDP. 3.Moderate pulmonary venous hypertension. Recommendation: Increase Lasix to 40 mg twice a day. Follow up with me in 1 week and check BMP at t hat time to assure stability of kidney function. SR/MODL Voice ID: [id number] Report ID: [id number]
== END 2020-05-31 17:27 | disposition home or self-care (01) ==
LOC: CCL 10:20
PROVIDERS: ATTEND Internal Medicine
DX: I25.110 Atherosclerotic heart disease of native coronary artery with unstable angina pectoris (principal); I27.20 Pulmonary hypertension, unspecified; I11.0 Hypertensive heart disease with heart failure; I50.9 Heart failure, unspecified; I48.91 Unspecified atrial fibrillation; E78.5 Hyperlipidemia, unspecified; E11.9 Type 2 diabetes mellitus without complications; Z79.01 Long term (current) use of anticoagulants; Z87.891 Personal history of nicotine dependence; Z20.822 Contact with and (suspected) exposure to COVID-19
CPT/HCPCS: 93005; 85025; 80048; 36415; 85610; 82947 ×2; 85730; 71046; 93460; 93571; 82805; U0003; C1893; J1644 ×4; J2250; J3010; J7040

== ENCOUNTER 2021-03-10 06:19 | Day surgery (SDC) | payer OTHER ==
[2021-02-08 13:02] LABS: Absolute Lymphocytes (CBC) 1.1 K/uL (0.7-4.9); Basophils % 0.5 % (0-1.3); Hematocrit 40.4 % (39.6-49.0); Lymphocytes % 12.6 % (15.3-44.8); MPV 6.8 fL (7.6-11.3); RBC Red Blood Cell Count 5.24 M/uL (4.33-5.43)
[2021-02-08 13:16] LABS: Potassium 3.6 mmol/L (3.5-5.1)
--- NOTE | 2021-02-08 13:36 | RAD REPORT ---
EXAM DESCRIPTION: RAD - Chest Pa And Lat (2 Views) - 02/08/2021 1:26 pm CLINICAL HISTORY: PRE COMPARISON: Chest Pa And Lat (2 Views) dated 11/19/2020; Chest Pa And Lat (2 Views) dated 05/28/2020; C hest Pa And Lat (2 Views) dated 03/01/2020; Chest Pa And Lat (2 Views) dated 11/07/2019 FINDINGS: Lines: None. Lungs: No evidence of edema or pneumonia. Pleural: No significant pleural effusions or pneumothorax. Cardiac: The heart size is within normal limits. Bones: No acute fractures. Bilateral shoulder arthroplasties . Other: IMPRESSION: No acute cardiopulmonary disease.
[2021-02-08 16:12] LABS: Anisocytosis 1+; Blood Morphology Comment NOTED (NOT SEEN); Platelet Estimate ADEQ; White Blood Cell Scan OK (OK)
--- NOTE | 2021-02-09 17:01 | EKG ---
Test Date: 2021-02-08 Test Time: 13:16:46 Swimming Coach: MEASUREMENT RESULTS: Intervals: Rate: 80 TX: 178 QRSD: 118 QT: 398 QTc: 459 [place]: P: 44 TX: 178 QRS: -55 T: 36 INTERPRETIVE STATEMENTS: Sinus rhythm with sinus arrhythmia with occasional premature ventricular complexes Left axis deviation Left ventricular hypertrophy with QRS widening Abnormal ECG Compared to ECG 05/28/2020 11:33:10 Ventricular premature complex(es) now present Atrial premature complex(es) no longer present Electronically Signed On 02-09-21 16:57:17 PHOTO COLORER by Jay Acosta
[~2021-03-10 06:19] MED LIST: HYDROCODONE/APAP 10/325 TAB ONE
[2021-03-10] MEDS ORDERED: NA CHLORIDE 0.9% 1,000 ML ONE (06:37)
[2021-03-10] MEDS ORDERED: CEFAZOLIN/NS 1gm 1 GM/50 ML BAG ONE (06:37)
[2021-03-10] MEDS ORDERED: FENTANYL CITR 100 MCG/2 ML ONE (07:05)
[2021-03-10] MEDS ORDERED: propofoL 200 MG/20 ML VIAL IV ONE (07:05)
[2021-03-10] MEDS ORDERED: MIDAZOLAM HCL 2 MG/2 ML INJ ONE (07:05)
[2021-03-10] MEDS ORDERED: LIDOCAINE 2% MPF 5 ML VIAL ONE (07:06)
[2021-03-10] MEDS ORDERED: ONDANSETRON 4 MG/2 ML VIAL ONE (07:06)
[2021-03-10] MEDS ORDERED: KETOROLAC 30 MG/ML INJ ONE (07:06)
[2021-03-10] MEDS ORDERED: dexAMETHasone 4 MG/ML VIAL ONE (07:06)
[2021-03-10] MEDS ORDERED: BUPIVACAINE 0.25% PF 10 ML VIAL ONE (07:07)
--- NOTE | 2021-03-10 08:14 | P.BOP ---
Preoperative diagnosis: right middle finger trigger digit Postoperative diagnosis: same Primary procedure: right middle finger A1 [place]by release Information Delivery Analyst: NONE,NONE Estimated blood loss: 2 cc Specimen: none Findings: see dictation Anesthesia: General Complications: None Implants: none Fluids & blood products: per anesthesia record; TT: 12 mins @ 250 mmHg Transferred to: Recovery Room Condition: Good
[2021-03-10] MEDS ORDERED: ALBUTEROL 2.5 MG/3 ML NEB SOL ONE (08:51)
[2021-03-10] MEDS ORDERED: CODEINE 30MG/APAP 300MG TAB ONE (09:38)
[2021-03-10 10:43] VITALS: BP 116/62; TEMP 97.3; O2SAT 94
== END 2021-03-10 10:37 | disposition home or self-care (01) ==
LOC: OR 06:19
PROVIDERS: ATTEND Orthopaedic Surgery Sports Medicine
PROC: 0LN70ZZ Release Right Hand Tendon, Open Approach (ICD-10-PCS; principal; 2021-03-10 07:30)
DX: M65.331 Trigger finger, right middle finger (principal); U07.1 COVID-19; E11.9 Type 2 diabetes mellitus without complications; I10 Essential (primary) hypertension; I48.91 Unspecified atrial fibrillation; I25.10 Atherosclerotic heart disease of native coronary artery without angina pectoris; J44.9 Chronic obstructive pulmonary disease, unspecified; G20 Parkinson's disease; Z79.82 Long term (current) use of aspirin; Z86.73 Personal history of transient ischemic attack (TIA), and cerebral infarction without residual deficits; Z85.46 Personal history of malignant neoplasm of prostate; Z83.3 Family history of diabetes mellitus
CPT/HCPCS: 93005; 85025; 80048; 36415; 82947; 71046; 26055; U0003; J2704; J2250; J3010; J0690; J7030; J2405; J1100

== ENCOUNTER 2021-12-08 10:37 | Observation (INO) | payer OTHER ==
--- OUTSIDE RECORDS SUMMARY | 2021-12-08 11:08 | XMS REPORT | Continuity of Care Document ---
:1940 Author Organization [facility] t Address [address] [place] [address] Dr. Oliv[address] [place] [address] Care Team Providers Name Role Phone Fabian Longoria Primary Care Physician JOSE ROMAON Attending Clinician Unavailable Agnieszka Gonsales MD Attending Clinician Addison Vance MD Attending Clinician Sarmad Ballesteros Attending Clinician Unavailable PAM WHITFIELD Attending Clinician Unavailable Therapy, [facility] Attending Clinician Unavailable Pam Whitfield MD Attending Clinician Doctor Unassigned, [place] Attending Clinician Unavailable Rasheeda Cabello MA Attending Clinician Unavailable Viraj Guzman Attending Clinician Unavailable Cinda Willard MA Attending Clinician Unavailable JOSE ROMANO M.D. Attending Clinician Unavailable HARINDER LITTLE M.D. Attending Clinician Unavailable FRED BROWN M.D. Attending Clinician Unavailable SEAMUS GUILLEN Attending Clinician Unavailable AGNIESZKA GONSALES M.D. Attending Clinician Unavailable Jose Romano Attending Clinician JOSE ROMANO Attending Clinician Unavailable Agnieszka Gonsales Attending Clinician AGNIESZKA GONSALES Attending Clinician Unavailable MD SEAMUS GUILLEN Attending Clinician Unavailable DEYVI BROWN Attending Clinician Unavailable Sarmad Ballesteros Attending Clinician Jeremy Chavez Attending Clinician Harinder Little Attending Clinician NABIL AVILA M.D. Attending Clinician Unavailable DICK LIZAMA M.D. Attending Clinician Unavailable Nabil Avila Attending Clinician Agnieszka Gonsales Attending Clinician PREM BRUSH M.D. Attending Clinician UnavailMEGGAN Hussein M.D. Attending Clinician Unavailable Meggan Harry Attending Clinician Elda Rosales Attending Clinician [phone] Abundio Wynne Attending Clinician Jaimie Solomon Attending Clinician [phone] Prem Johansen Attending Clinician RADHA HYMAN M.D. Attending Clinician Unavailable Ilsa Dumas Attending Clinician Gabriela Og Attending Clinician Henri Ford Attending Clinician DAV MEDRANO M.D. Attending Clinician Unavailable FABIAN CORDON Admitting Clinician Unavailable Fabian Cordon V Admitting Clinician Unavailable SEAMUS GUILLEN Admitting Clinician Unavailable MD SEAMUS GUILLEN Admitting Clinician Unavailable Jeremy Chavez Admitting Clinician Harinder Little Admitting Clinician Ilsa Dumas Admitting Clinician Gabriela Og Admitting Clinician Payers Payer Name Policy Type Policy Number Effective Date Expiration Date Padmini barger [facility] MEDICARE [id number] 2020 ADVANTAGE 00:00:00 Problems Condition Condition Condition Status Onset Resolution Last Treating Co mments Source Name Details Category Date Date Treatment Clinician Date CHRONIC CHRONIC Diagnosis Active 2019-11-19 Memoria COUGH COUGH 8- 08:45:00 l Active 00:00: [place] 11/11/2019 00 [facility] G95.9 / G95.9 / Diagnosis Active 2019-11-03 Memoria R26.81 / R26.81 / 10-21 12:34:00 l M47.14 / M47.14 / 00:00: Oleksandr napoles Z98.1 / Z98.1 / 00 M54.5 M54.5 Active 10/22/2019 [facility] DX; DX; Diagnosis Active 2019-04-08 Mem oria R06.02=WILIAN R06.02=WILIAN 03-31 12:27:00 l RTNESS OF RTNESS OF 00:00: Mykel butterfield BREATH BREATH 00 Active 03/31/2019 [facility] Prostate Prostate Disease Active 2018-03 Meth[facility] di cancer cancer 05-21 00:00: Hospita 00 l SOB SOB Diagnosis Active 2018-032019-03-13 Mem oria Active 05-08 21:56:00 l 03/07/2019 00:00: Oleksandr napoles [address] [address], [address], Diagnosis Active 2018-05-17 [facility] [address], [address], 05-08 13:50:00 l LEFT LEFT 00:00: Indra SHOULDER SHOULDER 00 GLENOHUMER GLENOHUMER AL AL Active 05/08/2018 [facility] UNK UNK Diagnosis Active 2018-05-06 Mem oria Active 04-24 09:14:00 l 04/24/2018 00:00: Oleksandr napoles [address] DX: LUNG DX: LUNG Diagnosis Active 2018-05-02 Memoria NODULE NODULE 04-24 12:19:00 l Active 00:00: Indra 04/24/2018 00 [facility] K21.9 K21.9 Diagnosis Active 2018-04-24 Mem oria Active 04-11 10:17:00 l 04/11/2018 00:00: Oleksandr napoles [address] R06.00 - R06.00 - Diagnosis Active 2017-06-01 Memoria DYSPNEA, DYSPNEA, 05-31 14:00:00 l UNSPECIFIE UNSPECIFIE 00:01: Hector solorio D D Active 00 05/31/2017 [facility] [place] [address], [address], Diagnosis Active 2017-05-23 [place] RIGHT RIGHT 2- 22:01:00 l SHOULDER SHOULDER 00:00: Oleksandr napoles INFECTED INFECTED 00 REVERSE S REVERSE S Active 05/14/2017 [facility] [address]- [address]- Diagnosis Active 2017-05-10 [place] RIGHT RIGHT 2-05 22:01:00 l SHOULDER SHOULDER 00:00: Oleksandr napoles SOFT SOFT 00 TISSUE TISSUE INFECT INFECT Active 04/30/2017 [facility] RIGHT RIGHT Diagnosis Active 2017-04-13 Mem oria SHOULDER SHOULDER - 11:40:00 l TOTAL TOTAL 00:00: Idnra REVISION REVISION 00 Active 04/13/2017 [facility] SHOULDER SHOULDER Diagnosis Active 2017-04-13 Memoria PAIN PAIN 04-13 11:40:00 l Active 00:00: Indra 04/13/2017 00 [facility] RT RT Diagnosis Active 2016-032017-03-18 Mem oria SHOULDER SHOULDER 05-19 18:33:00 l PAIN PAIN 00:00: Indra Active 00 03/18/2017 [facility] BLEEDING BLEEDING Diagnosis Active 2016-032017-01-29 Memoria INCISION INCISION 03-31 04:40:00 l Active 00:00: [place] 01/29/2017 00 [facility] R06.00 R06.00 Diagnosis Active 2016-032017-05-02 Sc moria Active 15:00:00 l 01/19/2017 00:00: Oleksandr napoles [address] [address]- Diagnosis Active 2016-032017-01-26 Me itzela RIGHT RIGHT 0- 13:42:00 l SHOULDER SHOULDER 00:00: Oleksandr napoles IRREPARABL IRREPARABL 00 E ROTATO E ROTATO Active 01/09/2017 [facility] DC F/U REQ DC F/U Diagnosis Active 2015-032017-09-16 Memoria BY CM REQ BY CM 13:15:00 l REVELYEN B REVELYEN B 00:00: He rmann Active 00 03/23/2016 [facility] SCI SCI Diagnosis Active 2015-032016-03-14 Mem oria Active 04-22 13:03:00 l 02/21/2016 00:00: Oleksandr napoles [facility] 00 DECONDITIO Diagnosis Active 2015-032016-03-29 Memoria WHIT DECONDITIO 04-22 22:24:00 l WHIT Active 00:00: Oleksandr napoles 02/21/2016 00 [facility] SOB, ARELLANO SOB, ARELLANO Diagnosis Active 2015-032016-02-15 Memoria Active 04-11 16:03:00 l 02/10/2016 00:00: Oleksandr napoles [address] NON-UNION NON-UNION Diagnosis Active 2015-032016-03-16 Memoria OF OF 03-29 23:03:00 l PREVIOUS PREVIOUS 00:00: Oleksandr napoles LUMBAR LUMBAR 00 FUSION, FUSION, FOR FOR Active 01/28/2016 [facility] Z98.1 - Z98.1 - Diagnosis Active 2015-11-10 Memoria ARTHRODESI ARTHRODESI 11-03 14:04:00 l S STATUS S STATUS 00:01: Oleksandr napoles Active 00 11/04/2015 AR[facility]ula Cruz History of History of Problem Resolve [place] Benign Benign d Physici prostatic prostatic ans hyperplasi hyperplasi a with a with lower lower urinary urinary tract tract symptoms, symptoms, unspecifie unspecifie d d morphology morphology History of History of Problem Resolve UT cough cough d Physici ans History of History of Problem Resolve [place] Adhesive Adhesive d Physic i capsulitis capsulitis an s of right of right shoulder shoulder 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 Problem Active 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 ans History of History of Problem Resolve UT Arthritis Arthritis d Phys ici of left of left ans shoulder shoulder region region History of History of Problem Resolve UT dyspnea dyspnea d Physici ans History of History of Problem Resolve UT Asthma in Asthma in d Phys ici adult adult ans History of History of Problem Resolve [place] Asthma Asthma d Physici with acute with acute an s exacerbati exacerbati on on History of History of Problem Resolve UT neck pain neck pain d Phys ici ans History of History of Problem Resolve UT neuropathy neuropathy d Ph ysici ans History of History of Problem Resolve UT Cervical Cervical d Physic i radicular radicular ans pain pain History of History of Problem Resolve UT Chronic Chronic d Physici right hip right hip ans pain pain History of History of Problem Resolve UT Class 1 Class 1 d Physici obesity obesity ans with with serious serious comorbidit comorbidit y and body y and body mass index mass index (BMI) of (BMI) of 30.0 to 30.0 to 30.9 in 30.9 in adult, adult, unspecifie unspecifie d obesity d obesity type type History of History of Problem Resolve UT depression depression d Ph ysici ans History of History of Problem Resolve UT Complete Complete d Physic i tear of tear of ans right right rotator rotator cuff cuff History of History of Problem Resolve UT Diabetes Diabetes d Physic 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 cquired cquired ans pneumonia pneumonia History of History of Problem Resolve UT Iliotibial Iliotibial d Ph ysici band band ans syndrome syndrome of right of right side side History of History of Problem Resolve UT kidney kidney d Physici stones stones ans History of History of Problem Resolve UT Lumbar Lumbar d Physici foraminal foraminal ans stenosis stenosis History of History of Problem Resolve UT Lumbar Lumbar d Physici radicular radicular ans pain pain History of History of Problem Resolve UT Lung Lung d Physici disease disease ans History of History of Problem Resolve UT Other Other d Physici hyperlipid hyperlipid an s em[place] em[place] History of History of Problem Resolve UT Other Other d Physici specified specified ans hypothyroi hypothyroi dism dism History of History of Problem Resolve UT Postoperat Postoperat d Ph ysici priya priya ans infection, infection, initial initial encounter encounter History of History of Problem Resolve UT 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 after an s fusion or fusion or arthrodesi arthrodesi s s History of History of Problem Resolve UT Pulmonary Pulmonary d Phys ici nodule nodule ans History of History of Problem Resolve UT Severe Severe d Physici obstructiv obstructiv an s e sleep e sleep apnea apnea History of History of Problem Resolve UT Shoulder Shoulder d Physic i pain pain ans History of History of Problem Resolve UT Stroke Stroke d Physici ans History of History of Problem Resolve UT Subacromia Subacromia d Ph ysici l bursitis l bursitis an s History of History of Problem Resolve UT Subacromia Subacromia d Ph ysici l l ans impingemen impingemen t of right t of right shoulder shoulder History of History of Problem Resolve UT thyroid thyroid d Physici disease disease ans History of History of Problem Resolve UT wheezing wheezing d Physic i ans Nocturnal Nocturnal Problem Active UT cough cough Physici ans Gastric Gastric Problem Active UT regurgitat regurgitat Ph ysici ion ion ans Heartburn Heartburn Problem Active UT Physici ans Hiatal Hiatal Problem Active UT hernia hernia Physici ans Arthropath Arthropath Problem Active U T y, y, Physici transient, transient, an s shoulder, shoulder, left left Chronic Chronic Problem Active UT right right Physici shoulder shoulder ans pain pain Shoulder Shoulder Problem Active UT pain, left pain, left Ph ysici ans Low back Low back Problem Active UT pain pain Physici ans Status Status Problem Active UT 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 [id number] 15.127, GUALBERTO Burrell,[facility], GUALBERTO Cruz,[facility] HEART HEART Diagnosis Active 2019-03-13 Mem oria FAILURE, FAILURE, 21:56:00 l UNSPECIFIE UNSPECIFIE He rmann D D Active [facility] RADICULOPA RADICULOP Diagnosis Active 2016-03-16 Memoria THY, ATHY, 23:03:00 l LUMBAR LUMBAR Indra REGION REGION Active [facility] OTHER OTHER Diagnosis Active 2016-03-16 Mem oria BIOMECHANI BIOMECHANI 23:03:00 l MAHENDRA MAHENDRA [place] LESIONS OF LESIONS OF LUMBAR RE LUMBAR RE Active [facility] SHORTNESS SHORTNESS Diagnosis Active 2016-02-15 Memoria OF BREATH OF BREATH 16:03:00 l Active Oleksandr napoles [facility] OTHER OTHER Diagnosis Active 2016-03-29 Mem oria MALAISE MALAISE 22:24:00 l Active Oleksandr napoles [facility] INTCRAN INTCRAN Diagnosis Active 2017-09-16 Memoria INJ W/O INJ W/O 13:15:00 l LOSS OF LOSS OF [place] CONSCIOUSN CONSCIOUSN ESS, I ESS, I Active [facility] ILLNESS, ILLNESS, Diagnosis Active 2018-05-17 Memoria UNSPECIFIE UNSPECIFIE 13:50:00 l D D Active Indra [facility] DYSPNEA, DYSPNEA, Diagnosis Active 2017-05-02 Memoria UNSPECIFIE UNSPECIFIE 15:00:00 l D D Active [place] [facility] INFECT/INF INFECT/IN Diagnosis Active 2017-05-23 Memoria LM FLM 22:01:00 l REACTION REACTION Oleksandr n DUE TO OTH DUE TO OTH INTERNA INTERNA Active [facility] SOLITARY SOLITARY Diagnosis Active 2018-05-02 Memoria PULMONARY PULMONARY 12:19:00 l NODULE NODULE [place] Active [facility] ENLARGED ENLARGED Diagnosis Active 2018-05-02 Memoria LYMPH LYMPH 12:19:00 l NODES, NODES, Indra UNSPECIFIE UNSPECIFIE D D Active [facility] Synovitis Synovitis Problem 2018-11-06 Memoria and and 11:48:55 l tenosynovi tenosynovi Hector solorio tis, tis, unspecifie unspecifie d d 11/06/2018 [id number] 615.127 Dyskinesia Dyskinesi Problem 2018-11-12 Memoria of a of 11:13:50 l esophagus esophagus Herm greer 11/12/2018 [facility] Spinal Spinal Problem 2018-11-04 [place] kristina stenosis, stenosis, 11:15:50 l cervical cervical Oleksandr n region region 11/04/2018 [facility] [place] Interverte Problem 2018-11-04 M emoria bral disc Interverte 11:15:50 l disorders bral disc Herm greer with disorders radiculopa with thy, radiculopa lumbar thy, region lumbar region 11/04/2018 [facility] [place] Hyperlipid Hyperlipi Problem 2017-08-13 Memoria emia, demia, 12:19:11 l unspecifie unspecifie He rmann d d 08/13/2017 [facility] Hypothyroi Hypothyro Problem 2017-08-13 Memoria dism, idism, 12:19:11 l unspecifie unspecifie He rmann d d 08/13/2017 [facility] Essential Problem 2017-08-24 Me moria (primary) Essential 12:51:25 l hypertensi (primary) Her mcgrath on hypertensi on 08/24/2017 [facility] Personal Personal Problem 2017-08-24 Memoria history of history of 12:51:25 l nicotine nicotine Oleksandr n dependence dependence 8 [facility] Acute Acute Problem 2017-08-24 Memor ia posthemorr posthemorr 12:51:25 l hagic hagic [place] anemia anemia 08/24/2017 [facility] Other Other Problem 2017-08-24 Memor ia streptococ streptococ 12:51:25 l mahendra mahendra Indra arthritis, arthritis, right right shoulder shoulder 08/24/2017 [facility] Emphysema, Emphysema Problem 2017-08-24 Memoria unspecifie , 12:51:25 l d unspecifie Oleksandr n d 08/24/2017 [facility] Unspecifie Unspecifi Problem 2017-08-24 Memoria d ed 12:51:25 l streptococ streptococ He rmann cus as the cus as the cause of cause of diseases diseases classified classified elsewhere elsewhere 08/24/2017 [facility] Body mass Body mass Problem 2017-08-24 Memoria index index 12:51:25 l (BMI) (BMI) [place] 30.0-30.9, 30.0-30.9, adult adult 08/24/2017 [facility] Primary Primary Problem 2017-08-24 Me montero osteoarthr osteoarthr 12:51:25 l itis, itis, [place] right right shoulder shoulder 08/24/2017 [facility] 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:53: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 04/25/2018 [facility] [place] Enlarged Enlarged Problem 2018-11-20 Memoria lymph lymph 11:21:30 l nodes, nodes, Indra unspecifie unspecifie d d 11/20/2018 [facility] Other Other Problem 2018-11-20 Memor ia specified specified 11:21:30 l diseases diseases Oleksandr n of liver of liver 11/20/2018 [facility] Major Major Problem 2017-08-13 Memor ia depressive depressive 12:19:11 l disorder, disorder, Herm greer single single episode, episode, unspecifie unspecifie d d 08/13/2017 [facility] Enlarged Enlarged Problem 2017-08-13 Memoria prostate prostate 12:19:11 l without without [place] lower lower urinary urinary tract tract symptoms symptoms 08/13/2017 [facility] Insomnia, Insomnia, Problem 2017-08-13 Memoria unspecifie unspecifie 12:19:11 l d d [place] 08/13/2017 [facility] Encounter Encounter Problem 2017-08-13 Memoria for for 12:19:11 l immunizati immunizati rmann on on 08/13/2017 [facility] Final: Final: Problem 2016-03-27 [place] kristina Other Other 01:40:36 l malaise malaise [place] 03/27/2016 [facility] Diverticul Diverticu Problem Resolve 2019-11-24 Memoria itis litis d 07:29:09 l (disorder) (disorder) He rmann Resolved Problem 11/24/2019 [facility],2 [id number]. [id number] 15.127, [facility], GUALBERTO Burrell,[facility], GUALBERTO Cruz,[facility] Chronic Chronic Problem Active 2019-11-24 Me moria obstructiv obstructiv 07:29:09 l e lung e lung [place] disease disease (disorder) (disorder) Active Problem 11/24/2019 [facility],2 .[id number]. [id number] 15.127, GUALBERTO Burrell,[facility], GUALBERTO Cruz,[facility] Gastric Gastric Problem Active 2019-11-24 Me moria reflux reflux 07:29:09 l (finding) (finding) [facility] greer Active Problem 11/24/2019 [facility],2 .[id number]. [id number] 15.127, [facility], GUALBERTO Burrell,[facility], GUALBERTO Cruz,[facility] Hyperlipid Problem Active 2019-11-24 M emoria emia Hyperlipid 07:29:09 l (disorder) norma Leggett n (disorder) Active Problem 11/24/2019 [facility],2 .[id number]. [id number] 15.127, [facility], GUALBERTO Burrell,[facility], [facility] Hypertensi Hypertens Problem Active 2019-11-24 Memoria ve priya 07:29:09 l disorder, disorder, Herm greer systemic systemic arterial arterial (disorder) (disorder) Active Problem 11/24/2019 [facility],2 .[id number]. [id number] 15.127, GUALBERTO Burrell,[facility], [facility] Hypothyroi Hypothyro Problem Active 2019-11-24 Memoria dism idism 07:29:09 l (disorder) (disorder) He rmann Active Problem 11/24/2019 [facility],2 .[id number]. [id number] 15.127, [facility], GUALBERTO Burrell,[facility], [facility] Lumbar Lumbar Problem Active 2019-11-24 King kristina radiculopa radiculopa 07:29:09 l thy thy [place] (disorder) (disorder) Active Problem 11/24/2019 [facility],2 .[id number]. [id number] 15.127, [facility], GUALBERTO Burrell,[facility], [facility] Benign Benign Problem Active 2019-11-24 [place] kristina prostatic prostatic 07:29:09 l hyperplasi hyperplasi He rmann a a (disorder) (disorder) Active Problem 11/24/2019 [facility],2 .[id number]. [id number] 15.127, [facility], GUALBERTO Burrell,[facility], [facility] Parkinson' Parkinson Problem Active 2019-11-24 Memoria s disease 's disease 07:29:09 l (disorder) (disorder) He rmann Active Problem 11/24/2019 [facility] .16.840.1. [id number] 15.127, GUALBERTO Burrell,[facility], GUALBERTO Cruz,[facility] Cerebrovas Cerebrova Problem Resolve 2015-032019-11-24 2019-11-24 Memoria cular scular d 04-26 07:29:09 07:29:09 l accident accident 00:00: Oleksandr napoles (disorder) (disorder) 00 Resolved 02/24/2016 Problem 11/24/2019 2 days after back surgery [facility], [place],2 .[id number]. [id number] 15.127, GUALBERTO Burrell,[facility], GUALBERTO Cruz,[facility] History of Past Illness Condition Condition Condition Status Onset Resolution Last Treating Co mments Source Name Details Category Date Date Treatment Clinician Date Dyspnea, Dyspnea, Problem 2017-2018-04-25 2018-04-25 Memoria unspecifie unspecifie -16 14:53:40 14:53:40 l d d 04:38: Indra 06/08/2017 05 04/25/2018 GUALBERTO Cruz Infection Infection Problem 2017-08-24 2017-08-24 Memoria and and 05-25 12:51:25 12:51:25 l inflammato inflammato 04:51: Hector solorio ry ry 18 reaction reaction due to due to other other internal internal joint joint prosthesis prosthesis , initial , initial encounter encounter 05/25/2017 08/24/2017 [facility] Infection Infection Problem 2017-08-13 2017-08-13 Memoria following following 05-15 12:19:11 12:19:11 l a a 04:46: Indra procedure, procedure, 50 initial initial encounter encounter 05/15/2017 08/13/2017 [facility] Other Other Problem 2017-07-20 2017-07-20 M emoria specified specified 04-18 20:43:45 20:43:45 l complicati complicati 05:15: Hector solorio on of on of 14 internal internal orthopedic orthopedic prosthetic prosthetic devices, devices, implants implants and and grafts, grafts, initial initial encounter encounter 04/18/2017 07/20/2017 [facility] Anterior Anterior Problem 2016-032017-03-21 2017-03-21 Memoria dislocatio dislocatio 05-19 02:24:13 02:24:13 l n of right n of right 06:00: He osmin humerus, humerus, 00 initial initial encounter encounter 03/18/2017 03/21/2017 Nancy Encounter Encounter Problem 2016-2017-02-01 2017-02-01 Memoria for other for other 03-31 02:39:43 02:39:43 l specified specified 06:00: Herm greer aftercare aftercare 00 01/29/2017 02/01/2017 Nancy Allergies, Adverse Reactions, Alerts Allergy Allergy Status Severity Reaction(s) Onset Inactive Treating Comm ents Source Name Type Date Date Clinician No Known DA Active [facility] No Known DA Active [facility] Allergie 2-08 Clear s 00:00: [place] 00 [facility] Demerol Allergy Active [facility] to drug Physici (finding ans ) NO KNOWN Drug Active Univers ALLERGIE Class [facility] Family History Family Member Diagnosis Comments Start Date Stop Date Source [facility] Father Family history of [facility] Type 2 diabetes mellitus without complication, without long-term current use of insulin Father Family history of [facility] emphysema Father Family history of [facility] retinal detachment Mother Family history of [facility] emphysema Social History Social Habit Start Date Stop Date Quantity Comments Source History of tobacco 1953-03-26 Cigarette Smoker [facility] Not sure [facility] SARS-CoV-2 (event) History SDLA [facility] Alcohol Frequency Hospita l History SDOH [facility] Alcohol Std Drinks Hospit al History SDOH Congregation [facility] Alcohol intake 2020-09-09 2020-09-09 Ex-drinker [facility]regation 00:00:00 00:00:00 (finding) Hospital Cigarettes smoked 2019-07-23 2019-07-[address] current (pack per 00:00:00 00:00:00 Hospita l day) - Reported Cigarette 2019-07-23 2019-07-23 [facility] pack-years 00:00:00 00:00:00 Hospital Alcohol Comment 2019-07-23 2019-07-23 Used to drink Method ist 00:00:00 00:00:00 [facility] Tobacco use and 2019-07-23 2019-07-23 Smokeless tobacco Me [facility] exposure 00:00:00 00:00:00 non-user Hospital Social History 2018-05-17 2018-05-17 [facility] jose manuel 20:31:31 20:31:31 Sex [birth year] At [birth year] [facility] 00:00:00 00:00:00 Smoking Status Start Date Stop Date Source Tobacco smoking consumption unknown [facility] Ex-smoker (finding) [place] [facility] s Heavy tobacco smoker 2019-07-23 00:00:00 [facility] Medications Ordered Filled Start Stop Current Ordering Indication Dosage Frequency Signature Comments Components Source Medication Medication Date Date Medication? Clinician (SIG) Name Name anastrozole 2021- No [id number] 1mg Q7D Take 1 Methodi (ARIMIDEX) 03-29-04 tablet (1 st 1 mg chemo 00:00: 04:59 mg total) H ospita tablet 00 :00 by mouth l once a week for 180 days. anastrozole No [id number] 1mg Q7D Take 1 Methodi (ARIMIDEX) 03-29-04 tablet (1 st 1 mg chemo 00:00: 04:59 mg total) H ospita tablet 00 :00 by mouth l once a week for 180 days. testosteron 2020-03- No [id number] INJECT 1 Methodi e cypionate 2-19 09-26 ML (200 MG s t (DEPOTESTOT 00:00: 04:59 TOTAL) IN Hospita ERONE 00 :00 MUSCLE OF l CYPIONATE) THE 200 mg/mL SHOULDER, injection THIGH, OR BUTTOCKS EVERY 7 DAYS testosteron 2020-03 No [id number] INJECT 1 Methodi e cypionate 2-27 06-26 ML (200 MG s t (DEPOTESTOT 00:00: 04:59 TOTAL) IN Hospita ERONE 00 :00 MUSCLE OF l CYPIONATE) THE 200 mg/mL SHOULDER, injection THIGH, OR BUTTOCKS EVERY 7 DAYS sildenafiL 2020-03 Yes 100mg Take 1 Meth alexandre (VIAGRA) 2- tablet st 100 MG 00:00: (100 mg Hospita tablet 00 total) by l mouth as needed for erectile dysfunctio n. needle, 2020-03 Yes 1{each} Q7D 1 each Metho di disp, 18 G 2-[address] (BD Regular 00:00: week. Hospi ta Bevel 00 l Pegram) 18 gauge x 1 1/2" needle syringe 2020-03 Yes 1{each} Q7D 1 each Metho di with needle 2-[address] (BD Eclipse 00:00: week. Hospi ta Luer-Ranjit) 3 00 l mL 23 x 1" syringe sildenafiL 2020-03 Yes 100mg Take 1 Meth alexandre (VIAGRA) 2-[address] 100 MG 00:00: (100 mg Hospita tablet 00 total) by l mouth as needed for erectile dysfunctio n. needle, 2020-03 Yes 1{each} Q7D 1 each Metho di disp, 18 G 2-[address] (BD Regular 00:00: week. Hospi ta Bevel 00 l Pegram) 18 gauge x 1 1/2" needle syringe 2020-03 Yes 1{each} Q7D 1 each Metho di with needle 2-[address] (BD Eclipse 00:00: week. Hospi ta Luer-Ranjit) 3 00 l mL 23 x 1" syringe testosteron 2020-03- No 200mg Q7D Inject 1 Methodi e cypionate 2-22 06-21 mL (200 mg s t (Depo-Testo 00:00: 04:59 total) Hos manoj sterone) 00 :00 into the l 200 mg/mL shoulder, injection thigh, or buttocks once a week for 180 days. testosteron 2020-03- No 200mg Q7D Inject 1 Methodi e cypionate 2-22 06-21 mL (200 mg s t (Depo-Testo 00:00: 04:59 total) Hos manoj sterone) 00 :00 into the l 200 mg/mL shoulder, injection thigh, or buttocks once a week for 180 days. casirivimab 2020- No [id number] 1200mg 1,200 mg, Univers -imdevimab 12-09 0916 Subcutaneo it y of (REGEN-COV 19:15: 18:05 us, ONCE, [place] (EUA)) 00 :00 1 dose, On Medical injection [place] 1,200 mg 12/09/20 at 1415, Routine atorvastati Yes atorvastat Methodi n (LIPITOR) 12-[address] 40 mg 09:54: tablet Hospita tablet 57 l fluticasone Yes fluticason Methodi propionate 12-[address] (FLONASE) 09:54: propionate Ho spita 50 57 50 l mcg/actuati mcg/actuat on nasal ion nasal spray spray,susp ension furosemide Yes furosemide M ethodi (LASIX) 20 12-[address] mg tablet 09:54: tablet Hospit a 57 l furosemide Yes furosemide M ethodi (LASIX) 40 12-[address] mg tablet 09:54: tablet Hospit a 57 l HYDROcodone Yes hydrocodon Methodi -acetaminop 12-[address] hen (NORCO) 09:54: mg-acetami Hospita 10-325 mg 57 nophen 325 l per tablet mg tablet meclizine Yes meclizine Met hodi (ANTIVERT) 12-[address] 25 mg 09:54: tablet Hospita tablet 57 l metoprolol Yes 1 tablet Met hodi succinate 12-06 st XL 09:54: Hospita (TOPROL-XL) 57 l 25 mg 24 hr tablet pantoprazol Yes pantoprazo Methodi e 12-[address] (PROTONIX) 09:54: tablet,del H ospita 40 MG EC 57 ayed l tablet release phenazopyri Yes phenazopyr Methodi dine 12-[address] (PYRIDIUM) 09:54: mg tablet Ho spita 200 MG 57 l tablet pregabalin Yes pregabalin M ethodi (LYRICA) 75 12-[address] MG capsule 09:54: capsule Hosp [facility] 57 l revefenacin Yes 3 ml Method i (Yupelri) 12-06 st 175 mcg/3 09:54: Hospita mL solution 57 l for nebulizatio n dexlansopra Yes 1 capsule M ethodi zole 12-06 st (Dexilant) 09:54: Hospita 60 mg 57 l capsule levothyroxi Yes 1 tablet Me thodi ne 12-[address] (SYNTHROID) 09:54: morning on Hospita 50 mcg 57 an empty l tablet stomach metFORMIN Yes metformin Met hodi XR 12-[address] (GLUCOPHAGE 09:54: tablet,ext Hospita -XR) 500 mg 57 ended l 24 hr release 24 tablet hr rasagiline Yes 1 tablet Met hodi (AZILECT) 1 12-06 st MG tablet 09:54: Hospita 57 l tamsulosin Yes 1 capsule Me thodi (FLOMAX) 12-06 st 0.4 mg 09:54: Hospita capsule 57 l tamsulosin Yes 1 capsule Me thodi (FLOMAX) 12-06 st 0.4 mg 09:54: Hospita capsule 57 l atorvastati Yes atorvastat Methodi n (LIPITOR) 12-[address] 40 mg 09:54: tablet Hospita tablet 57 l fluticasone Yes fluticason Methodi propionate 12-[address] (FLONASE) 09:54: propionate Ho spita 50 57 50 l mcg/actuati mcg/actuat on nasal ion nasal spray spray,susp ension furosemide Yes furosemide M ethodi (LASIX) 20 12-[address] mg tablet 09:54: tablet Hospit a 57 l furosemide Yes furosemide M ethodi (LASIX) 40 12-[address] mg tablet 09:54: tablet Hospit a 57 l HYDROcodone Yes hydrocodon Methodi -acetaminop 12-[address] hen (NORCO) 09:54: mg-acetami Hospita 10-325 mg 57 nophen 325 l per tablet mg tablet meclizine Yes meclizine Met hodi (ANTIVERT) 12-[address] 25 mg 09:54: tablet Hospita tablet 57 l metoprolol 0 Yes 1 tablet Met hodi succinate 12-06 st XL 09:54: Hospita (TOPROL-XL) 57 l 25 mg 24 hr tablet pantoprazol Yes pantoprazo Methodi e 12-[address] (PROTONIX) 09:54: tablet,del H ospita 40 MG EC 57 ayed l tablet release phenazopyri Yes phenazopyr Methodi dine 12-[address] (PYRIDIUM) 09:54: mg tablet Ho spita 200 MG 57 l tablet pregabalin Yes pregabalin M ethodi (LYRICA) 75 12-[address] MG capsule 09:54: capsule Hosp [facility]erson 57 l revefenacin Yes 3 ml Method i (Yupelri) 12-06 st 175 mcg/3 09:54: Hospita mL solution 57 l for nebulizatio n dexlansopra Yes 1 capsule M ethodi zole 12-06 st (Dexilant) 09:54: Hospita 60 mg 57 l capsule levothyroxi Yes 1 tablet Me thodi ne 12-[address] (SYNTHROID) 09:54: morning on Hospita 50 mcg 57 an empty l tablet stomach metFORMIN Yes metformin Met hodi XR 12-[address] (GLUCOPHAGE 09:54: tablet,ext Hospita -XR) 500 mg 57 ended l 24 hr release 24 tablet hr rasagiline Yes 1 tablet Met hodi (AZILECT) 1 12-06 st MG tablet 09:54: Hospita 57 l testosteron 2020- No [id number] INJECT 1 Methodi e cypionate 11-23 12-27 ML (200 MG s t (DEPOTESTOT 00:00: 00:00 TOTAL) IN Hospita ERONE 00 :00 MUSCLE OF l CYPIONATE) THE 200 mg/mL SHOULDER, injection THIGH, OR BUTTOCKS EVERY 7 DAYS testosteron 2020- No [id number] INJECT 1 Methodi e cypionate 8 12-27 ML (200 MG s t (DEPOTESTOT 00:00: 00:00 TOTAL) IN Hospita ERONE 00 :00 MUSCLE OF l CYPIONATE) THE 200 mg/mL SHOULDER, injection THIGH, OR BUTTOCKS EVERY 7 DAYS testosteron 2020- No [id number] 200mg Q7D Inject 1 Methodi e cypionate 7-02 08-31 mL (200 mg s t (Depo-Testo 00:00: 00:00 total) Hos manoj sterone) 00 :00 into the l 200 mg/mL shoulder, injection thigh, or buttocks once a week for 90 days. carbidopa-l 2020- No 1{tbl} Q.[id number] Take 1 Methodi evodopa 09-[id number] (SINEMET) 11:53: 00:00 3D mouth 3 [facility]osp [facility] 25-100 mg 40 :00 (three) l per tablet times a day. apixaban 2020- No Q.5D Take by Metho di (ELIQUIS) 09-[address] 2.5 mg 11:53: 00:00 (two) Hospita tablet 40 :00 times a l day. azithromyci 2020- No 250mg QD Take 250 Methodi n 09-[address] (ZITHROMAX) 11:53: 00:00 mouth [facility]osp [facility]erson 250 MG 40 :00 daily. l tablet esomeprazol 2020- No Take by Me jackie rutherford (NexIUM) 09-[address] 40 MG 11:53: 00:00 Hospita capsule 40 :00 l DULoxetine 2020- No Take by Met gillespie (Cymbalta) 09-[address] 30 MG 11:53: 00:00 Hospita capsule 40 :00 l tamsulosin 2020- No Take by Met gillespie (FLOMAX) 09-[address] 0.4 mg 11:53: 00:00 Hospita capsule 40 :00 l testosteron 2020- No 200mg Q1W Inject 1 Methodi e cypionate 4-15 07-15 mL (200 mg s t (Depo-Testo 00:00: 04:59 total) Hos manoj sterone) 00 :00 into the l 200 mg/mL shoulder, injection thigh, or buttocks every 7 days for 90 days. Breo Breo Yes RUCKSHANDA QD USE 1 [facility] Ellipsandhya Beavers 4-01 HOMER Beltran INHALATION Physici 100-25 100-25 00:00: ONCE ans MCG/INH MCG/INH 00 DAILY. Inhalation Inhalation Aerosol Aerosol Powder Powder Breath Breath Activated Activated rasagiline 2020-0 Yes 1mg QD Take 1 mg Me thodi (AZILECT) 1 3-[address] MG tablet 11:13: daily. Hospit a 45 l metoprolol 2020-0 Yes 25mg QD Take 25 mg M ethodi tartrate 3-[address] (LOPRESSOR) 11:13: daily. [facility]osp [facility]erson 25 mg 45 l tablet dexlansopra 2020-0 Yes 60mg Q.5D Take 60 mg Methodi zole 3-[address] (DEXILANT) 11:13: (two) Hospit a 60 mg 45 times a l capsule day. levothyroxi 2020- Yes 50ug QD Take 50 Met verna ne 3-[address] (SYNTHROID, 11:13: mouth Hospi ta LEVOXYL) 50 45 daily. l mcg tablet cannabidiol 2020-0 Yes Q.5D Take by Met gillespie CBD, 3-[address] extract 100 11:13: (two) Hospi ta mg/mL 45 times a l solution day. ipratropium 2020-0 Yes 3mL Q.[id number] Take 3 mL Methodi -albuterol 3-[id number] (DUO-NEB) 11:13: 3D nebulizati Ho spita 0.5-2.5 45 on 3 l mg/3 mL (three) nebulizer times a day. fluticasone 2020-0 Yes QD Inhale Meth alexandre -umeclidin- 3-[address] vilanter 11:13: Hospita (TRELEGY 45 l ELLIPTA) 100-62.5-25 mcg blister with device metFORMIN 2020-0 Yes 1000mg Q.5D Take 1,000 Methodi (GLUCOPHAGE 3-[address] ) 500 mg 11:13: mouth 2 Hospit a tablet 45 (two) l times a day with meals. simvastatin 2020- Yes Take by Met gillespie (ZOCOR) 10 3-[address] MG tablet 11:13: Hospita 45 l mometasone- 2020-0 Yes Dulera 200 Methodi formoterol 3-17 mcg-5 st (DULERA 11:13: mcg/actuat Hosp jerson 200) 200-5 45 ion HFA l mcg/actuati aerosol on inhaler inhaler pediatric 0 Yes Take by Metho di multivit 3-[address] 61-D3-vit K 11:13: Hospit a (MVW 45 l Complete Formul Multivit) 1,500-800 unit-mcg capsule rasagiline 0 Yes 1mg QD Take 1 mg Me thodi (AZILECT) 1 3-[address] MG tablet 11:13: daily. Hospit a 45 l metoprolol 0 Yes 25mg QD Take 25 mg M ethodi tartrate 3-[address] (LOPRESSOR) 11:13: daily. Hosp jerson 25 mg 45 l tablet dexlansopra 0 Yes 60mg Q.5D Take 60 mg Methodi zole 3-[address] (DEXILANT) 11:13: (two) Hospit a 60 mg 45 times a l capsule day. levothyroxi 0 Yes 50ug QD Take 50 Met verna ne 3-[address] (SYNTHROID, 11:13: mouth Hospi ta LEVOXYL) 50 45 daily. l mcg tablet cannabidiol 2020-0 Yes Q.5D Take by Met gillespie CBD, 3-[address] extract 100 11:13: (two) Hospi ta mg/mL 45 times a l solution day. ipratropium 2020-0 Yes 3mL Q.[id number] Take 3 mL Methodi -albuterol 3-[id number] (DUO-NEB) 11:13: 3D nebulizati Ho spita 0.5-2.5 45 on 3 l mg/3 mL (three) nebulizer times a day. fluticasone 2020-0 Yes QD Inhale Meth alexandre -umeclidin- 3-[address] vilanter 11:13: Hospita (TRELEGY 45 l ELLIPTA) 100-62.5-25 mcg blister with device metFORMIN 0 Yes 1000mg Q.5D Take 1,000 Methodi (GLUCOPHAGE 3-[address] ) 500 mg 11:13: mouth 2 Hospit a tablet 45 (two) l times a day with meals. simvastatin Yes Take by Met hodi (ZOCOR) 10 3-[address] MG tablet 11:13: Hospita 45 l mometasone- Yes Dulera 200 Methodi formoterol 3-17 mcg-5 st (DULERA 11:13: mcg/actuat Hosp [facility]erson 200) 200-5 45 ion HFA l mcg/actuati aerosol on inhaler inhaler pediatric Yes Take by Metho di multivit 3-[address] 61-D3-vit K 11:13: Hospit a (MVW 45 l Complete Formul Multivit) 1,500-800 unit-mcg capsule testosteron 2020- No 200mg Inject 1 Methodi e cypionate 3-17 03-18 mL (200 mg s t (Depo-Testo 00:00: 04:59 total) Hos manoj sterone) 00 :00 into the l 200 mg/mL shoulder, injection thigh, or buttocks once for 1 dose. safety 2019-03- No 18g Q14D 18 g every Meth alexandre needles (BD 2-22 03-[address] SafetyGlide 00:00: 04:59 (fourteen) Hospita Needle) 18 00 :00 days for l gauge x 1 90 days. 1/2" needle syringe 2019-03- No 23g Q14D 23 g every Met hodi with needle 2-22 03-[address] (BD Eclipse 00:00: 04:59 (fourteen) Hospita Luer-Ranjit) 3 00 :00 days for l mL 23 x 1" 90 days. syringe testosteron 2019-03- No 200mg Q14D Inject 1 Methodi e cypionate 2-22 03-17 mL (200 mg s t (Depo-Testo 00:00: 00:00 total) Hos manoj sterone) 00 :00 into the l 200 mg/mL shoulder, injection thigh, or buttocks every 14 (fourteen) days for 90 days. tamsulosin Yes .4mg Q.5D Take 1 Metho di (FLOMAX) 8-[address] 0.4 mg 00:00: (0.4 mg Hospita capsule 00 total) by l mouth 2 (two) times a day. tamsulosin 0 Yes .4mg Q.5D Take 1 Metho di (FLOMAX) 8-[address] 0.4 mg 00:00: (0.4 mg Hospita capsule 00 total) by l mouth 2 (two) times a day. QC QC Yes YAYAREAGAN 2 sprays [facility] Fluticasone Fluticasone 8-11 HOMER Beltran each Physici Propionate Propionate 00:00: nostril ans 50 MCG/ACT 50 MCG/ACT 00 once daily SUSP SUSP Furosemide 2018-03 No Notes: Memor ia 20 MG Oral 2-16 (Same as: l Tablet 15:00: Lasix) July Salud nn cause GI upset. Give with food or milk. Furosemide 2018-03 No Notes: Memor ia 20 MG Oral 2-16 (Same as: l Tablet 15:00: Lasix) July Salud nn cause GI upset. Give with food or milk. Budesonide 2018-03 No Notes: Memor ia 0.5 MG/ML 2-15 (Same As: l Inhalant 15:55: Pulmicort) Her mcgrath Solution 00 Budesonide 2018-03 No Notes: Memor ia 0.5 MG/ML 2-15 (Same As: l Inhalant 15:55: Pulmicort) Her mcgrath Solution 00 60 ACTUAT 2018-03 No 2 puff, Memor ia tiotropium 2-15 Route: l 0.79006 15:00: INHALATION Herm greer MG/ACTUAT 00 , Daily, Metered Dosing Dose Weight Inhaler 97.3, kg, [Spiriva] Start date: 03/09/19 9:00:00 BAKER SECOND, Duration: 30 day, Stop date: 04/07/19 9:00:00 BAKER SECOND 60 ACTUAT 2018-03 No 2 puff, Memor ia tiotropium 2-15 Route: l 0.06999 15:00: INHALATION Herm greer MG/ACTUAT 00 , Daily, Metered Dosing Dose Weight Inhaler 97.3, kg, [Spiriva] Start date: 03/09/19 9:00:00 BAKER SECOND, Duration: 30 day, Stop date: 04/07/19 9:00:00 BAKER SECOND Rasagiline 2018-03 No Rasagiline M emoria 1 mg tablet 2-15 1 mg l 03:00: tablet, 1 Indra 00 mg / 1 tablet, Drug form: MISC, Route: PO, Daily, 03/08/19 21:00:00 BAKER SECOND, Duration: 30 day, Stop date: 04/06/19 21:00:00 BAKER SECOND, 0 Rasagiline 2018-03 No Rasagiline M emoria 1 mg tablet 2-15 1 mg l 03:00: tablet, 1 [place] 00 mg / 1 tablet, Drug form: MISC, Route: PO, Daily, 03/08/19 21:00:00 BAKER SECOND, Duration: 30 day, Stop date: 04/06/19 21:00:00 BAKER SECOND, 0 rasagiline 2018-03 No 1 mg, Memori a 2-14 Route: PO, l 23:00: Drug form: [place] 00 TAB, QPM, Dosing Weight 97.3, kg, Start date: 03/08/19 17:00:00 BAKER SECOND, Duration: 30 day, Stop date: 04/06/19 17:00:00 BAKER SECOND Flomax 2018-03 No Notes: Memoria 2-14 (Same As: l 23:00: Flomax) "Do Not Crush" rasagiline 2018-03 No 1 mg, Memori a 2-14 Route: PO, l 23:00: Drug form: [place] 00 TAB, QPM, Dosing Weight 97.3, kg, Start date: 03/08/19 17:00:00 BAKER SECOND, Duration: 30 day, Stop date: 04/06/19 17:00:00 BAKER SECOND Flomax 2018-03 No Notes: Memoria 2-14 (Same As: l 23:00: Flomax) "Do Not Crush" Bumex 2018-03 No Notes: Memoria 2-14 (Same As: l 19:19: Bumex) Spironolact 2018-03 No Notes: King kristina one 2-14 (Same As: l 19:19: Aldactone) Bumex 2018-03 No Notes: Memoria 2-14 (Same As: l 19:19: Bumex) Spironolact 2018-03 No Notes: King kristina one 2-14 (Same As: l 19:19: Aldactone) Albuterol 2018-03 No Notes: Memori a 0.833 MG/ML 2-14 (Same as: l / 17:00: Duoneb) Ipratropium 00 [place] 0.167 MG/ML Inhalant Solution Albuterol 2018-03 No Notes: Memori a 0.833 MG/ML 2-14 (Same as: :00: Duoneb) Ipratropium 00 [place] 0.167 MG/ML Inhalant Solution CoQ10 2018-03 Yes 200 mg, Memoria 2-14 PO, Daily, l 16:49: 0 [place] 00 Refill(s) CoQ10 2018-03 Yes 200 mg, Memoria 2-14 PO, Daily, l 16:49: 0 Indra 00 Refill(s) Zithromax 2018-03 No Notes: Memori a 2-14 Take 1 l 16:00: hour Indra 00 before or 2 hours after meals. (Same As: Zithromax) Zithromax 2018-03 No Notes: Memori a 2-14 Take 1 l 16:00: hour Indra 00 before or 2 hours after meals. (Same As: Zithromax) Pulmicort 2018-03 No Notes: Memori a Respules 2-14 (Same As: l 15:54: Pulmicort) Pulmicort 2018-03 No Notes: Memori a Respules 2-14 (Same As: l 15:54: Pulmicort) Dextrose 2018-03 No 12.5 gm, Memor ia 50% Syringe 2-14 25 mL, l (D50W) 15:15: Route: IVP, Drug Form: INJ, Dosing Weight 97.3, kg, PRN, PRN Blood Glucose Results, Start date: 03/08/19 9:15:00 BAKER SECOND, Duration: 30 day, Stop date: 04/07/19 9:14:00 BAKER SECOND, 0 Glucagon 2018-03 No 1 mg, Memoria 2-14 Route: IM, l 15:15: Drug form: PDR/INJ, PRN, Dosing Weight 97.3, kg, PRN Blood Glucose Results, Start date: 03/08/19 9:15:00 BAKER SECOND, Duration: 30 day, Stop date: 04/07/19 9:14:00 BAKER SECOND, 0 Insulin 2018-03 No Notes: Memoria Lispro 2-14 (Same as: l 15:15: Humalog) [place] 00 Roll in palms of hands gently; Do not shake vigorously . WASTE: F/P - Black; E - Municipal Trash Bin Stable for 28 days at room temperatur e. Expires in days from ____Date Dextrose 2018- No 12.5 gm, Memor ia 50% Syringe 2-14 25 mL, l (D50W) 15:15: Route: [place] 00 IVP, Drug Form: INJ, Dosing Weight 97.3, kg, PRN, PRN Blood Glucose Results, Start date: 03/08/19 9:15:00 BAKER SECOND, Duration: 30 day, Stop date: 04/07/19 9:14:00 BAKER SECOND, 0 Glucagon 2018-03 No 1 mg, Memoria 2-14 Route: IM, l 15:15: Drug form: [place] 00 PDR/INJ, PRN, Dosing Weight 97.3, kg, PRN Blood Glucose Results, Start date: 03/08/19 9:15:00 BAKER SECOND, Duration: 30 day, Stop date: 04/07/19 9:14:00 BAKER SECOND, 0 Insulin 2018-03 No Notes: Memoria Lispro 2-14 (Same as: l 15:15: Humalog) [place] 00 Roll in palms of hands gently; [...] 97.3, kg, RBID, Start date: 03/08/19 9:09:00 BAKER SECOND, Duration: 30 day, Stop date: 04/07/19 8:00:00 BAKER SECOND Advair 2018- No 1 Memoria Diskus 250 2-14 inhalation l mcg-50 mcg 15:09: , Route: Her mcgrath inhalation 00 INHALER, powder Drug Form: AERO, Dosing Weight 97.3, kg, RBID, Start date: 03/08/19 9:09:00 BAKER SECOND, Duration: 30 day, Stop date: 04/07/19 8:00:00 BAKER SECOND Lyrica 2018-03 No Notes: Memoria 2-14 Same as l 15:00: Lyrica Indra 00 Protonix 2018-03 No Notes: Memoria 2-14 Tablet l 15:00: should not Indra 00 be chewed or crushed. (Same as: Protonix) Lyrica 2018-03 No Notes: Memoria 2-14 Same as l 15:00: Lyrica Indra 00 Protonix 2018-03 No Notes: Memoria 2-14 Tablet l 15:00: should not Indra 00 be chewed or crushed. (Same as: Protonix) Thyroxine 2018-03 No Notes: Memori a 2-14 Take 1 l 13:30: hour [place] 00 before or 2 hours after meal; Enteral feeds may interefere with the absorption of this medication .(Same as:Levothr oid, Synthroid) Thyroxine 2018-03 No Notes: Memori a 2-14 Take 1 l 13:30: hour [place] 00 before or 2 hours after meal; Enteral feeds may interefere with the absorption of this medication .(Same as:Levothr oid, Synthroid) *RN* pls 2018-03 No *RN* pls Memor ia bring pt's 2-14 bring pt's l own 06:00: own [place] rasagiline 00 rasagiline to RPh for to RPh for label label, attn, Drug form: MISC, Route: MISC, QSHIFT, 03/08/19 0:00:00 BAKER SECOND, Duration: 30 day, Stop date: 04/06/19 16:00:00 BAKER SECOND, 0 *RN* pls 2018-03 No *RN* pls Memor ia bring pt's 2-14 bring pt's l own 06:00: own Indra rasagiline 00 rasagiline to RPh for to RPh for label label, attn, Drug form: MISC, Route: MISC, QSHIFT, 03/08/19 0:00:00 BAKER SECOND, Duration: 30 day, Stop date: 04/06/19 16:00:00 BAKER SECOND, 0 metoprolol 2018-03 No Notes: Memor ia 2-14 (Same as: l 05:00: Toprol XL) [place] 00 Do Not Crush metoprolol 2018-03 No Notes: Memor ia 2-14 (Same as: l 05:00: Toprol XL) [place] 00 Do Not Crush Eliquis 2018-03 No Notes: Memoria 2-14 Same as: l 03:00: Eliquis Indra metoprolol 2018-03 No metoprolol M emoria 25 mg oral 2-14 25 mg oral l tablet, 03:00: tablet, [place] extended 00 extended release release, 25 mg, Route: PO, Bedtime, 03/07/19 21:00:00 BAKER SECOND, Duration: 30 day, Stop date: 04/05/19 21:00:00 BAKER SECOND Simvastatin 2019 No Notes: King kristina 2-14 (Same as: l 03:00: Zocor) Indra 00 Requip 2018-03 No Notes: Memoria 2-14 (Same as: l 03:00: Requip) Indra 00 Solu-Medrol 2018-03 No Notes: King kristina 2-14 (Same l 03:00: as:Solu-ME Indra 00 DROL, A-Methapre d) Omnipaque 2018-03 No 45 Memoria 350 2-14 mL/min, l injectable 03:00: Start Oleksandr n solution 00 date: 03/07/19 21:00:00 BAKER SECOND, Duration: 1 doses or times Eliquis 2018-03 No Notes: Memoria 2-14 Same as: l 03:00: Eliquis [place] 00 metoprolol 2018-03 No metoprolol M emoria 25 mg oral 2-14 25 mg oral l tablet, 03:00: tablet, Indra extended 00 extended release release, 25 mg, Route: PO, Bedtime, 03/07/19 21:00:00 BAKER SECOND, Duration: 30 day, Stop date: 04/05/19 21:00:00 BAKER SECOND Simvastatin 2019 No Notes: King kristina 2-14 (Same as: l 03:00: Zocor) [place] Requip 2018-03 No Notes: Memoria 2-14 (Same as: l 03:00: Requip) [place] Solu-Medrol 2018-03 No Notes: King kristina 2-14 (Same l 03:00: as:Solu-ME Indra 00 DROL, A-Methapre d) Omnipaque 2018-03 No 45 Memoria 350 2-14 mL/min, l injectable 03:00: Start Oleksandr n solution 00 date: 03/07/19 21:00:00 BAKER SECOND, Duration: 1 doses or times Rocephin + 2018-03 No Notes: Memor ia sterile 2-14 (Same As: l water 10 mL 02:00: Rocephin). Use with 100 mL NS and infuse over 30 min MEDICATION WASTE Product Size: 1000 mg Product Wasted: ___ mg Rocephin + 2018-03 No Notes: Memor ia sterile 2-14 (Same As: l water 10 mL 02:00: Rocephin). Use with 100 mL NS and infuse over 30 min MEDICATION WASTE Product Size: 1000 mg Product Wasted: ___ mg Prednisone 2018-03 No 40 mg, Memor ia 2-14 Route: PO, l 01:53: Drug form: Indra 00 TAB, Daily, Dosing Weight 97.3, kg, Priority: NOW, Start date: 03/07/19 19:53:00 [facility], Duration: 30 day, Stop date: 04/06/19 9:00:00 [facility] Prednisone 2018-03 No 40 mg, [facility] 2-14 Route: PO, l 01:53: Drug form: [place] 00 TAB, Daily, Dosing Weight 97.3, kg, Priority: NOW, Start date: 03/07/19 19:53:00 [facility], Duration: 30 day, Stop date: 04/06/19 9:00:00 [facility] NS 1,000 mL 2018-03 No 1,000 mL, M emoria 2-14 Rate: 75 l 01:47: ml/hr, Infuse over: 13.3 hr, Route: IV, Dosing Weight 97.3 kg, Total Volume: 1,000, Start date: 03/07/19 19:47:00 [facility], Duration: 30 day, Stop date: 04/06/19 19:46:00 [facility], 2.18, m2, 0 NS 1,000 mL 2018-03 No 1,000 mL, M emoria 2-14 Rate: 75 l 01:47: ml/hr, Indra 00 Infuse over: 13.3 hr, Route: IV, Dosing Weight 97.3 kg, Total Volume: 1,000, Start date: 03/07/19 19:47:00 [facility], Duration: 30 day, Stop date: 04/06/19 19:46:00 [facility], 2.18, m2, 0 COQ10, 2018-03 Yes 200 mg, [facility] UBIQUINOL, 2-14 PO, Daily, [facility]: 0 [facility] 00 Refill(s) l COQ10, 2018-03 Yes 200 mg, [facility] UBIQUINOL, 2-14 PO, Daily, [facility] 00:[facility]: 0 [facility] 00 Refill(s) l bumetanide 2018-03 Yes 1 mg = 1 [facility] 1 mg oral 2-13 tab, PO, l tablet 22:17: Daily, # Indra 00 30 tab, 0 Refill(s) spironolact 2018-03 Yes 25 mg = 1 M [facility] one 25 mg 2-13 tab, PO, l oral tablet 22:17: Daily, # He rmann 30 tab, 3 Refill(s) ropinirole 2018-03 Yes 0.5 mg = 1 M [facility] 0.5 MG Oral 2-13 tab, PO, l Tablet 22:17: Bedtime, # Salud nn [Requip] 00 30 tab, 3 Refill(s) apixaban 2018-03 Yes 2.5 mg, Mem[facility] a 2.5 MG Oral 2-13 PO, Q12H, l Tablet 22:17: 0 Indra [Eliquis] 00 Refill(s) bumetanide 2018-03 Yes 1 mg = 1 [facility] 1 mg oral 2-13 tab, PO, l tablet 22:17: Daily, # Indra 00 30 tab, 0 Refill(s) spironolact 2018-03 Yes 25 mg = 1 M emoria one 25 mg 2-13 tab, PO, l oral tablet 22:17: Daily, # He rmann 30 tab, 3 Refill(s) ropinirole 2018-03 Yes [...] update 2-13 update l height, 21:45: height, [place] weight, and 00 weight, allergy in and adhoc allergy in adhoc, attn, Drug form: MISC, Route: MISC, Q15Min, 03/07/19 15:45:00 BAKER SECOND, Duration: 30 day, Stop date: 04/06/19 15:30:00 BAKER SECOND, 0 *RN* pls 2018-03 No *RN* pls Memor ia update 05-08 update l height, 21:45: height, Indra weight, and 00 weight, allergy in and adhoc allergy in adhoc, attn, Drug form: MISC, Route: MISC, Q15Min, 03/07/19 15:45:00 BAKER SECOND, Duration: 30 day, Stop date: 04/06/19 15:30:00 BAKER SECOND, 0 Dextrose 2018-03 No 12.5 gm, Memor ia 50% Syringe 2-13 25 mL, l (D50W) 20:36: Route: Indra IVP, Drug Form: INJ, Dosing Weight 95.455, kg, PRN, PRN Blood Glucose Results, Start date: 03/07/19 14:36:00 BAKER SECOND, Duration: 30 day, Stop date: 04/06/19 14:35:00 BAKER SECOND, 0 Glucagon 2018-03 No 1 mg, Memoria 2-13 Route: IM, l 20:36: Drug form: Indra 00 PDR/INJ, PRN, Dosing Weight 95.455, kg, PRN Blood Glucose Results, Start date: 03/07/19 14:36:00 BAKER SECOND, Duration: 30 day, Stop date: 04/06/19 14:35:00 BAKER SECOND, 0 Docusate 2018-03 No Notes: Memoria 2-13 (Same as: l 20:36: Colace) Indra (Do Not Crush) POLYETHYLEN 2018-03 No Notes: King kristina E GLYCOL 2-13 Dissolve l 3350 20:36: in 8 oz of [place] 00 water or juice. (Same as: Miralax) Bisacodyl [...] for allergy symptoms, Start date: 03/07/19 14:36:00 BAKER SECOND, Duration: 30 day, Stop date: 04/06/19 14:35:00 BAKER SECOND, 0 Melatonin 2018-03 No Notes: Memori a 2-13 (Same as: l 20:36: Melatonin) Trazodone 2018-03 No Notes: Memori a 2-13 (Same As: l 20:36: Desyrel) Acetaminoph 2018-03 No Notes: Do M emoria en 2-13 not exceed l 20:36: 4 gm/day. (Same as: Tylenol) Seroquel 2018-03 No Notes: Memoria 2-13 (Same as: l 20:36: SEROquel) Hydralazine 2018-03 No Notes: King kristina 2-13 (Same as: l 20:36: Apresoline ) Push over 5 minutes Nicotine 2018-03 No Notes: Memoria 2-13 (Same as: l 20:36: Habitrol) "Remove old patch before applicatio n of new patch" WASTE: F/P - P Waste Black; E - P Waste Black Acetaminoph 2018-03 No Notes: King kristina en 325 MG / 2-13 (Same as: l Hydrocodone 20:36: [place] Salud nn Bitartrate 00 325/5) Do 5 MG Oral not exceed Tablet 4gm/day of [[place] acetaminop 5/325] hen. Morphine 2018-03 No Notes: Memoria 2-13 (Same l 20:36: as:MORPhin Indra 00 e Sulfate) Robitussin- 2018-03 No Notes: King kristina AC oral 2-13 (Same As: l syrup 20:36: Robitussin Oleksandr n 00 AC) Tessalon 2018-03 No Notes: Memoria Perles 2-13 (Same As: l 20:36: Tessalon [place] 00 Perles) "Do Not Crush" Mucinex 2018-03 No Notes: Memoria 2-13 (Same as: l 20:36: Guaifenesi [place] 00 n [place], Humibid [place], Mucinex) "Do Not Crush" Take medication with plenty of water. Simethicone 2018-03 No Notes: King kristina 2-13 (Same as: l 20:36: Mylicon) [place] 00 Maalox 2018-03 No Notes: Memoria Advanced 2-13 (aluminum l Regular 20:36: hydroxide- Herm greer Strength 00 magnesium SUSP hyd-simeth icone 200-200-20 mg/5ml 30 ml ud IMTIAZ) Albuterol 2018-03 No Notes: Memori a 0.833 MG/ML -13 (Same as: l / 20:36: Duoneb) [place] Ipratropium 00 [place] 0.167 MG/ML Inhalant Solution [DuoNeb] phenol 2018-03 No Notes: Memoria 2-13 Chlorasept l 20:36: ic [place] 00 (Same as: Chlorasept ic, Sore Throat [place]) WASTE: F/P - Black; E - Municipal Trash Bin Artificial 2018-03 No 1 drp, Memor ia Tears - Route: l 20:36: Each [place] 00 Affected Eye, QID, Drug form: SOLN, PRN Dry Eyes, Start date: 03/07/19 14:36:00 BAKER SECOND, Duration: 30 day, Stop date: 04/06/19 14:35:00 BAKER SECOND, 0 Lidocaine 2018-03 No Notes: Memori a 0.05 MG/MG 2-13 Apply only l Transdermal 20:36: once for He rmann Patch 00 up to 12 hours in a 24-hour period (12 hours on and 12 hours off). (Same as: Lidoderm) "Remove old patch before applicatio n of new patch" Lactulose 2018-03 No Notes: Memori a 667 MG/ML 2-13 (Same l Oral 20:36: as:Chronul Indra Solution 00 ac) Benzocaine 2018- No Notes: Memor ia 15 MG / 2-13 Same as: l Menthol 3.6 20:36: Cepacol Her mcgrath MG Lozenge 00 [Cepacol Sore Throat Pain Relief 15/3.6] Dextrose 2018-03 No 12.5 gm, Memor ia 50% Syringe 2-13 25 mL, l (D50W) 20:36: Route: IVP, Drug Form: INJ, Dosing Weight 95.455, kg, PRN, PRN Blood Glucose Results, Start date: 03/07/19 14:36:00 BAKER SECOND, Duration: 30 day, Stop date: 04/06/19 14:35:00 BAKER SECOND, 0 Glucagon 2018-03 No 1 mg, Memoria 2-13 Route: IM, l 20:36: Drug form: Indra 00 PDR/INJ, PRN, Dosing Weight 95.455, kg, PRN Blood Glucose Results, Start date: 03/07/19 14:36:00 BAKER SECOND, Duration: 30 day, Stop date: 04/06/19 14:35:00 BAKER SECOND, 0 Docusate 2018-03 No Notes: Memoria 2-13 (Same as: l 20:36: Colace) (Do Not Crush) POLYETHYLEN 2018-03 No Notes: King kristina E GLYCOL 2-13 Dissolve l 3350 20:36: in 8 oz of water or juice. (Same as: Miralax) Bisacodyl 2018-03 No Notes: Memori a 2-13 (Same As: l 20:36: Dulcolax, [place] Bisco-Lax) Ondansetron 2018-03 No Notes: King kristina 2-13 (Same as: l 20:36: Zofran) MEDICATION WASTE Product Size: 4 mg Product Wasted: ___ mg Diphenhydra 2018- No 25 mg, 1 Me moria mine 2-13 tab, l 20:36: Route: PO, Indra 00 Drug form: TAB, Q6H, Dosing Weight 95.455, kg, PRN as needed for allergy symptoms, Start date: 03/07/19 14:36:00 BAKER SECOND, Duration: 30 day, Stop date: 04/06/19 14:35:00 BAKER SECOND, 0 Melatonin 2018-03 No Notes: Memori a 2-13 (Same as: l 20:36: Melatonin) [place] 00 Trazodone 2018-03 No Notes: Memori a 2-13 (Same As: l 20:36: Desyrel) Indra 00 Acetaminoph 2018-03 No Notes: Do M emoria en 2-13 not exceed l 20:36: 4 gm/day. [place] (Same as: Tylenol) Seroquel 2018-03 No Notes: Memoria 2-13 (Same as: l 20:36: SEROquel) Hydralazine 2018-03 No Notes: King kristina 2-13 (Same as: l 20:36: Apresoline ) Push over 5 minutes Nicotine 2018-03 No Notes: Memoria 2-13 (Same as: l 20:36: Habitrol) "Remove old patch before applicatio n of new patch" WASTE: F/P - P Waste Black; E - P Waste Black Acetaminoph 2018-03 No Notes: King kristina en 325 MG / 2-13 (Same as: l Hydrocodone 20:36: [place] Salud nn Bitartrate 00 325/5) Do 5 MG Oral not exceed Tablet 4gm/day of [[place] acetaminop 5/325] hen. Morphine 2018-03 No Notes: Memoria 2-13 (Same l 20:36: as:MORPhin [place] 00 e Sulfate) Robitussin- 2018-03 No Notes: King kristina AC oral 2-13 (Same As: l syrup 20:36: Robitussin Oleksandr n 00 AC) Tessalon 2018-03 No Notes: Memoria Perles 2-13 (Same As: l 20:36: Tessalon 00 Perles) "Do Not Crush" Mucinex 2018-03 No Notes: Memoria 2-13 (Same as: l 20:36: Guaifenesi [place] 00 n [place], Humibid [place], Mucinex) "Do [...] l / 20:36: Duoneb) Indra Ipratropium 00 [place] 0.167 MG/ML Inhalant Solution [DuoNeb] phenol 2018-03 No Notes: Memoria 2-13 Chlorasept l 20:36: ic [place] Indra 00 (Same as: Chlorasept ic, Sore Throat [place]) WASTE: F/P - Black; E - [employer] Trash Bin Artificial 2018-03 No 1 drp, Memor ia Tears - Route: l 20:36: Each [place] 00 Affected Eye, QID, Drug form: SOLN, PRN Dry Eyes, Start date: 03/07/19 14:36:00 BAKER SECOND, Duration: 30 day, Stop date: 04/06/19 14:35:00 BAKER SECOND, 0 Lidocaine 2018-03 No Notes: Memori a 0.05 MG/MG 2-13 Apply only l Transdermal 20:36: once for He rmann Patch 00 up to 12 hours in a 24-hour period (12 hours on and 12 hours off). (Same as: Lidoderm) "Remove old patch before applicatio n of new patch" Lactulose 2018-03 No Notes: Memori a 667 MG/ML -13 (Same l Oral 20:36: as:Chronul Indra Solution 00 ac) Benzocaine 2018-03 No Notes: Memor ia 15 MG / 2-13 Same as: l Menthol 3.6 20:36: Cepacol Her mcgrath MG Lozenge 00 [Cepacol Sore Throat Pain Relief 15/3.6] spironolact 2018-03 Yes 25 mg = 1 M ethodi one 2-13 tab, PO, st (ALDACTONE) 00:00: Daily, # Ho spita 25 MG 00 30 tab, 3 l tablet Refill(s) spironolact 2018-03 Yes 25 mg = 1 M ethodi one 2-13 tab, PO, st (ALDACTONE) 00:00: Daily, # Ho spita 25 MG 00 30 tab, 3 l tablet Refill(s) Osteo 2018-03 Yes 0 Memoria Bi-Flex 2-12 Refill(s) l 22:17: Osteo 2018-03 Yes 0 Memoria Bi-Flex 2-12 Refill(s) l 22:17: cefTRIAXone 2018-03 Yes [id number] 1g M ethodi (ROCEPHIN) 04-20 st injection 1 16:45: Hospit [facility] g 00 l cefTRIAXone 2018-03 Yes [id number] 1g M ethodi (ROCEPHIN) 04-20 st injection 1 16:45: Hospit [facility] 00 l ropinirole No Notes: Memor ia 2-23 (Same as: l 15:00: Requip) ropinirole No Notes: Memor ia 2-23 (Same [...] 0 Tablet Refill(s) [Tylenol with Codeine #3] tramadol Yes 1-2 tab, Memor ia hydrochlori 2-23 PO, Q6H, l de 50 MG 14:18: PRN Pain, Herm greer Oral Tablet 00 X 10 day, # 40 tab, 0 Refill(s) celecoxib Yes 200 mg = 1 Me moria 200 MG Oral 2-23 cap, PO, l Capsule 14:18: Daily, # Oleksandr n [Celebrex] 00 30 cap, 0 Refill(s) Acetaminoph 2019-0 Yes 1 - 2 tab, Memoria en [...] 00 day, # 28 tab, 0 Refill(s) doxycycline Yes 100 mg = 1 Memoria hyclate 100 2-23 tab, PO, l MG Oral 13:59: Q12H, X 14 Herm greer Tablet 00 day, # 28 tab, 0 Refill(s) Thyroxine No Notes: Memori a 2-23 Take 1 l 12:30: hour [place] 00 before or 2 hours after meal; Enteral feeds may interefere with the absorption of this medication .(Same as:Levothr oid, Synthroid) Thyroxine No Notes: Memori a 2-23 Take 1 l 12:30: hour Indra 00 before or 2 hours after meal; Enteral feeds may interefere with the absorption of this medication .(Same as:Levothr oid, Synthroid) Saline No 10 ml, Memoria Flush 0.9% 2-23 Route: l 03:00: IVP, Drug Form: INJ, Dosing Weight 95.455, kg, Q12H, Start date: 05/17/18 21:00:00 BAKER SECOND, Duration: 30 day, Stop date: 06/16/18 9:00:00 CDT Simvastatin No Notes: King kristina 2-23 (Same as: l 03:00: Zocor) Saline No 10 ml, Memoria Flush 0.9% 2-23 Route: l 03:00: IVP, Drug Form: INJ, Dosing Weight 95.455, kg, Q12H, Start date: 05/17/18 21:00:00 BAKER SECOND, Duration: 30 day, Stop date: 06/16/18 9:00:00 CDT Simvastatin No Notes: King kristina 2-23 (Same as: l 03:00: Zocor) Enoxaparin No Notes: Memor ia 2-23 (Same as: l 00:30: Lovenox) Indra Enoxaparin No Notes: Memor ia 2-23 (Same as: l 00:30: Lovenox) Protonix No Notes: Memoria 2-23 Tablet l 00:00: should not [place] 00 be chewed or crushed. (Same as: Protonix) Cefazolin No Notes: Memori a 2-23 (Same As: l 00:00: Ancef, [place] 00 Kefzol) MEDICATION WASTE Product Size: 1000 mg Product Wasted: ___ mg Protonix No Notes: Memoria 2-23 Tablet l 00:00: should not Indra 00 be chewed or crushed. (Same as: Protonix) Cefazolin No Notes: Memori a 2-23 (Same As: l 00:00: Ancef, Indra 00 Kefzol) MEDICATION WASTE Product Size: 1000 mg Product Wasted: ___ mg Docusate No Notes: Memoria Sodium 100 2-22 (Same as: l MG Oral 23:00: Colace) Indra Capsule 00 (Do Not Crush) Flomax No Notes: Memoria 2-22 (Same As: l 23:00: Flomax) Indra 00 "Do Not Crush" rasagiline No Notes: Memor ia 2-22 Same as l 23:00: Azilect [place] Non Formulary Item Lyrica No Notes: Memoria 2-22 (Same as: l 23:00: Lyrica) Cymbalta No 60 mg, Memoria 2-22 Route: PO, l 23:00: Drug form: Indra 00 DRC, QPM, Dosing Weight 95.455, kg, Start date: 05/17/18 17:00:00 BAKER SECOND, Duration: 30 day, Stop date: 06/15/18 17:00:00 CDT Dexilant No 60 mg, Memoria 2-22 Route: PO, l 23:00: Drug form: Indra 00 DRC, BID, Dosing Weight 95.455, kg, Start date: 05/17/18 17:00:00 BAKER SECOND, Duration: 30 day, Stop date: 06/16/18 9:00:00 CDT Docusate 2018-0 No Notes: Memoria Sodium 100 2-22 (Same as: l MG Oral 23:00: Colace) Indra Capsule (Do Not Crush) Flomax No Notes: Memoria 2-22 (Same As: l 23:00: Flomax) [place] "Do Not Crush" rasagiline No Notes: Memor ia 2-22 Same as l 23:00: Azilect [place] 00 Non Formulary Item Lyrica No Notes: Memoria 2-22 (Same as: l 23:00: Lyrica) Cymbalta No 60 mg, Memoria 2 Route: PO, l 23:00: Drug form: Indra DRC, QPM, Dosing Weight 95.455, kg, Start date: 05/17/18 17:00:00 BAKER SECOND, Duration: 30 day, Stop date: 06/15/18 17:00:00 CDT Dexilant No 60 mg, Memoria 05-17 Route: PO, l 23:00: Drug form: Indra DRC, BID, Dosing Weight 95.455, kg, Start date: 05/17/18 17:00:00 BAKER SECOND, Duration: 30 day, Stop date: 06/16/18 9:00:00 CDT Streptococc No 0.5 mL, Mem oria us 05-17 Route: IM, l pneumoniae 20:39: ONCALL Herm greer serotype 1 45 Start capsular date: antigen 05/17/18 diphtheria 14:39:45 [id number] BAKER SECOND, Stop protein date: conjugate 06/16/18 vaccine / 14:34:45 Streptococc CDT us pneumoniae serotype 14 capsular antigen diphtheria [id number] protein conjugate vaccine / Streptococc us pneumoniae serotype 18C capsular antigen d Streptococc No 0.5 mL, Mem oria us 05-17 Route: IM, l pneumoniae 20:39: ONCALL Herm greer serotype 1 45 Start capsular date: antigen 05/17/18 diphtheria 14:39:45 [id number] BAKER SECOND, Stop protein date: conjugate 06/16/18 vaccine / 14:34:45 Streptococc CDT us pneumoniae serotype 14 capsular antigen diphtheria [id number] protein conjugate vaccine / Streptococc us pneumoniae serotype 18C capsular antigen d glycopyrrol No Route: IV, Memoria ate (ANES) 2- Drug form: l 18:57: INJ, ONCE, Stop date: 05/17/18 12:57:00 BAKER SECOND neostigmine No Route: IV, Memoria (ANES) 2- Drug form: l 18:57: INJ, ONCE, Stop date: 05/17/18 12:57:00 BAKER SECOND Sodium 2019-0 No 25 mL, Memoria Chloride 05-17 Route: IV, l 0.9% IV 18:57: Start date: 05/17/18 12:57:00 BAKER SECOND, Duration: 30 day, Stop date: 06/16/18 13:56:00 CDT, PRN Line Flush BD Normal No Notes: Memori a Saline 2-22 (Same as: l Flush 18:57: BD Posiflush) glycopyrrol No Route: IV, Memoria ate (ANES) 05-17 Drug form: l 18:57: INJ, ONCE, Stop date: 05/17/18 12:57:00 BAKER SECOND neostigmine No Route: IV, Memoria (ANES) 2- Drug form: l 18:57: INJ, ONCE, Stop date: 05/17/18 12:57:00 BAKER SECOND Sodium 2019-0 No 25 mL, Memoria Chloride 05-17 Route: IV, l 0.9% IV 18:57: Start date: 05/17/18 12:57:00 BAKER SECOND, Duration: 30 day, Stop date: 06/16/18 13:56:00 CDT, PRN Line Flush BD Normal No Notes: Memori a Saline 2-22 (Same as: l Flush 18:57: BD [place] 00 Posiflush) famotidine No Route: IV, M emoria (ANES) 2- Drug form: l 18:52: INJ, ONCE, Stop date: 05/17/18 12:52:00 BAKER SECOND ropivacaine No Notes: King kristina 2-22 Final l 18:52: concentrat ion: Ropivacain e 0.2% 400 ml famotidine No Route: IV, M emoria (ANES) 2-22 Drug form: l 18:52: INJ, ONCE, Stop date: 05/17/18 12:52:00 BAKER SECOND ropivacaine No Notes: King kristina 2-22 Final l 18:52: concentrat ion: Ropivacain e 0.2% 400 ml Oxycodone No Notes: Memori a Hydrochlori 2-22 (Same as: l de 5 MG 18:34: Roxicodone Herm greer Oral Tablet ) Oxycodone No Notes: Memori a Hydrochlori 2-22 (Same as: l de 5 MG 18:34: Roxicodone Herm greer Oral Tablet ) propofol No Route: IV, Mem oria (ANES) 2-22 Drug form: l 18:32: INJ, ONCE, Stop date: 05/17/18 12:32:00 BAKER SECOND propofol No Route: IV, Mem oria (ANES) 2-22 Drug form: l 18:32: INJ, ONCE, Stop date: 05/17/18 12:32:00 BAKER SECOND fentaNYL No Route: IV, Mem oria (ANES) 2-22 Drug form: l 18:27: INJ, ONCE, Stop date: 05/17/18 12:27:00 BAKER SECOND Saline No 10 ml, Memoria Flush 0.9% 05-17 Route: l 18:27: IVP, Drug Form: INJ, Dosing Weight 95.455, kg, PRN, PRN Line Flush, Start date: 05/17/18 12:27:00 BAKER SECOND, Duration: 30 day, Stop date: 06/16/18 13:26:00 CDT Ondansetron No Notes: King kristina 2-22 (Same as: l 18:27: Zofran) MEDICATION WASTE Product Size: 4 mg Product Wasted: ___ mg Lactated No 1,000 mL, King kristina Ringers IV 05-17 Rate: 125 l 1,000 mL 18:27: ml/hr, Infuse over: 8 hr, Route: IV, Dosing Weight 95.455 kg, Total Volume: 1,000, Start date: 05/17/18 12:27:00 BAKER SECOND, Duration: 30 day, Stop date: 06/16/18 12:26:00 CDT, 2.18, m2 Morphine No Notes: Memoria 2-22 (Same l 18:27: as:MORPhin Indra 00 e Sulfate) Acetaminoph No Notes: Do M emoria en 05-17 not exceed l 18:27: 4 gm/day. (Same as: Tylenol) fentaNYL No Route: IV, Mem oria (ANES) 05-17 Drug form: l 18:27: INJ, ONCE, Stop date: 05/17/18 12:27:00 BAKER SECOND Saline No 10 ml, Memoria Flush 0.9% 05-17 Route: l 18:27: IVP, Drug Form: INJ, Dosing Weight 95.455, kg, PRN, PRN Line Flush, Start date: 05/17/18 12:27:00 BAKER SECOND, Duration: 30 day, Stop date: 06/16/18 13:26:00 CDT Ondansetron No Notes: King kristina -22 (Same as: l 18:27: Zofran) MEDICATION WASTE Product Size: 4 mg Product Wasted: ___ mg Lactated No 1,000 mL, King kristina Ringers IV 05-17 Rate: 125 l 1,000 mL 18:27: ml/hr, Indra 00 Infuse over: 8 hr, Route: IV, Dosing Weight 95.455 kg, Total Volume: 1,000, Start date: 05/17/18 12:27:00 BAKER SECOND, Duration: 30 day, Stop date: 06/16/18 12:26:00 CDT, 2.18, m2 Morphine No Notes: Memoria 2-22 (Same l 18:27: as:MORPhin [place] 00 e Sulfate) Acetaminoph No Notes: Do M emoria en 05-17 not exceed l 18:27: 4 gm/day. (Same as: Tylenol) tranexamic No Route: IV, M emoria acid (ANES) - Drug form: l 100 mg 18:00: INJ, Start Salud date: 05/17/18 12:00:00 BAKER SECOND, Stop date: 05/17/18 13:00:00 BAKER SECOND tranexamic No Route: IV, M emoria acid (ANES) 2- Drug form: l 100 mg 18:00: INJ, Start Salud date: 05/17/18 12:00:00 BAKER SECOND, Stop date: 05/17/18 13:00:00 BAKER SECOND dexamethaso No Route: IV, Memoria ne (ANES) 05-17 Drug form: l 17:01: INJ, ONCE, Stop date: 05/17/18 11:01:00 BAKER SECOND tranexamic No Route: IV, M emoria acid (ANES) - Drug form: l 17:01: INJ, ONCE, Stop date: 05/17/18 11:01:00 BAKER SECOND rocuronium 2018-0 No Route: IV, M emoria (ANES) - Drug form: l 17:01: INJ, ONCE, Stop date: 05/17/18 11:01:00 BAKER SECOND ondansetron 2018-0 No Route: IV, Memoria (ANES) 2- Drug form: l 17:01: INJ, ONCE, Stop date: 05/17/18 11:01:00 BAKER SECOND propofol 2019-0 No Route: IV, Mem oria (ANES) 2- Drug form: l 17:01: INJ, ONCE, Stop date: 05/17/18 11:01:00 BAKER SECOND dexamethaso 2019-0 No Route: IV, Memoria ne (ANES) 2- Drug form: l 17:01: INJ, ONCE, Stop date: 05/17/18 11:01:00 BAKER SECOND tranexamic 2018-0 No Route: IV, M emoria acid (ANES) 2- Drug form: l 17:01: INJ, ONCE, Stop date: 05/17/18 11:01:00 BAKER SECOND rocuronium 2019-0 No Route: IV, M emoria (ANES) 2- Drug form: l 17:01: INJ, ONCE, Stop date: 05/17/18 11:01:00 BAKER SECOND ondansetron 2019-0 No Route: IV, Memoria (ANES) 2- Drug form: l 17:01: INJ, ONCE, Stop date: 05/17/18 11:01:00 BAKER SECOND propofol 2019-0 No Route: IV, Mem oria (ANES) 2- Drug form: l 17:01: INJ, ONCE, Stop date: 05/17/18 11:01:00 BAKER SECOND lidocaine 2019-0 No Route: IV, Me moria (ANES) 2- Drug form: l 16:56: INJ, ONCE, Stop date: 05/17/18 10:56:00 BAKER SECOND fentaNYL 2019-0 No Route: IV, Mem oria (ANES) 2- Drug form: l 16:56: INJ, ONCE, Stop date: 05/17/18 10:56:00 BAKER SECOND lidocaine 2019-0 No Route: IV, Me moria (ANES) 2- Drug form: l 16:56: INJ, ONCE, Stop date: 05/17/18 10:56:00 BAKER SECOND fentaNYL 2019-0 No Route: IV, Mem oria (ANES) 2- Drug form: l 16:56: INJ, ONCE, Stop date: 05/17/18 10:56:00 BAKER SECOND phenylephri 2019-0 No Route: IV, Memoria ne (ANES) 2-22 Drug form: l [id number] 16:52: INJ, Start Oleksandr n microgram date: 05/17/18 10:52:00 BAKER SECOND, Stop date: 05/17/18 11:52:00 BAKER SECOND phenylephri 2019-0 No Route: IV, Memoria ne (ANES) 2-22 Drug form: l [id number] 16:52: INJ, Start Oleksandr n microgram date: 05/17/18 10:52:00 BAKER SECOND, Stop date: 05/17/18 11:52:00 BAKER SECOND phenylephri 0 No Route: IV, Memoria ne (ANES) 2- Drug form: l 16:51: INJ, ONCE, Stop date: 05/17/18 10:51:00 BAKER SECOND ceFAZolin No Route: IV, Me moria (ANES) 2-22 Drug form: l 16:51: INJ, ONCE, Stop date: 05/17/18 10:51:00 BAKER SECOND ePHEDrine No Route: IV, Me moria (ANES) 2- Drug form: l 16:51: INJ, ONCE, Stop date: 05/17/18 10:51:00 BAKER SECOND phenylephri No Route: IV, Memoria ne (ANES) 2- Drug form: l 16:51: INJ, ONCE, Stop date: 05/17/18 10:51:00 BAKER SECOND ceFAZolin No Route: IV, Me moria (ANES) 2- Drug form: l 16:51: INJ, ONCE, Stop date: 05/17/18 10:51:00 BAKER SECOND ePHEDrine No Route: IV, Me moria (ANES) 2- Drug form: l 16:51: INJ, ONCE, Stop date: 05/17/18 10:51:00 BAKER SECOND Ondansetron No Notes: King kristina - (Same as: l 16:44: Zofran) MEDICATION WASTE Product Size: 4 mg Product Wasted: ___ mg Flumazenil No Notes: Memor ia - (Same as: l 16:44: Romazicon) Naloxone No Notes: Memoria 2-22 Same as l 16:44: Narcan Ketorolac No 4 days Memor ia 2-22 l 16:44: MEDICATION WASTE Product Size: 30 mg Product Wasted: ___ mg Acetaminoph No Notes: Max Memoria en 2- acetaminop l 16:44: hen 4000 [place] mg/day (4 gm/day). (Same as: Tylenol Extra Strength) Labetalol No Notes: Memori a 2-22 (Same as: l 16:44: Normodyne, [place] 00 Trandate) Push over 2 minutes Give bolus over 2-3 minutes. Morphine No Notes: Memoria 2-22 (Same l 16:44: as:MORPhin Indra 00 e Sulfate) Hydralazine No Notes: King kristina 2-22 (Same as: l 16:44: Apresoline Indra 00 ) Push over 5 minutes Ondansetron No Notes: King krsitina 2-22 (Same as: l 16:44: Zofran) Indra 00 MEDICATION WASTE Product Size: 4 mg Product Wasted: ___ mg Flumazenil No Notes: Memor ia 2-22 (Same as: l 16:44: Romazicon) [place] Naloxone No Notes: Memoria 2-22 Same as l 16:44: Narcan [place] 00 Ketorolac No 4 days Memor ia - l 16:44: MEDICATION Indra 00 WASTE Product Size: 30 mg Product Wasted: ___ mg Acetaminoph No Notes: Max Memoria en 2- acetaminop l 16:44: hen 4000 Indra 00 mg/day (4 gm/day). (Same as: Tylenol Extra Strength) Labetalol No Notes: Memori a 2-22 (Same as: l 16:44: Normodyne, [place] 00 Trandate) Push over 2 minutes Give bolus over 2-3 minutes. Morphine No Notes: Memoria 2-22 (Same l 16:44: as:MORPhin [place] 00 e Sulfate) Hydralazine No Notes: King kristina 2-22 (Same as: l 16:44: Apresoline [place] 00 ) Push over 5 minutes Lactated No Route: IV, Mem oria Ringers - Total l Injection 15:51: Volume: Salud nn IV (ANES) 00 1,000, 1000 mL Start date: 05/17/18 9:51:00 BAKER SECOND, Stop date: 05/17/18 10:51:00 BAKER SECOND Lactated No Route: IV, Mem oria Ringers 2-22 Total l Injection 15:51: Volume: Salud nn IV (ANES) 00 1,000, 1000 mL Start date: 05/17/18 9:51:00 BAKER SECOND, Stop date: 05/17/18 10:51:00 BAKER SECOND ceFAZolin + No Notes: King kristina sterile 2-22 (Same As: l water 20 mL 06:00: Ancef, Herm greer 00 Kefzol) MEDICATION WASTE Product Size: 1000 mg Product Wasted: ___ mg ceFAZolin + No Notes: King kristina sterile 2-22 (Same As: l water 20 mL 06:00: Ancef, Herm greer 00 Kefzol) MEDICATION WASTE Product Size: 1000 mg Product Wasted: ___ mg Trazodone 2019 Yes 100 mg = 1 Me moria Hydrochlori 2-21 tab, PO, l de 100 MG 22:58: Bedtime, 0 He rmann Oral Tablet 00 Refill(s) Trazodone Yes 100 mg = 1 Me moria Hydrochlori 2-21 tab, PO, l de 100 MG 22:58: Bedtime, 0 He rmann Oral Tablet 00 Refill(s) dexlansopra 2018- Yes 60 mg = 1 M emoria zole 60 MG 2-21 cap, PO, l Enteric 22:44: BID, 0 Indra Coated 00 Refill(s) Capsule [Dexilant] dexlansopra 2019- Yes 60 mg = 1 M emoria zole 60 MG 2-21 cap, PO, l Enteric 22:44: BID, 0 [place] Coated 00 Refill(s) Capsule [Dexilant] rOPINIRole 2019- Yes 0.5 mg = 1 M emoria 0.5 mg oral 2-21 tab, PO, l tablet 22:42: Daily, 0 Indra 00 Refill(s) rOPINIRole 2019-0 Yes 0.5 mg = 1 M emoria 0.5 mg oral 2-21 tab, PO, l tablet 22:42: Daily, 0 [place] 00 Refill(s) pregabalin 2018-0 Yes 100 mg = 1 M emoria 100 MG Oral 2-11 cap, PO, l Capsule 16:00: BID, # 60 Sauld nn [Lyrica] 00 cap, 1 Refill(s) pregabalin Yes 100 mg = 1 [...] Total Volume: 1,000, Start date: 05/06/18 2:37:00 BAKER SECOND, Duration: 30 day, Stop date: 06/05/18 2:36:00 CDT, 2.17, m2 Sodium No 1,000 mL, Memori a Chloride 2-11 Rate: 25 l 0.9% IV 08:37: ml/hr, [place] 1,000 mL 00 Infuse over: 40 hr, Route: IV, Dosing Weight 94.545 kg, Total Volume: 1,000, Start date: 05/06/18 2:37:00 BAKER SECOND, Duration: 30 day, Stop date: 06/05/18 2:36:00 CDT, 2.17, m2 Omnipaque No Notes: Memori a 300 2-07 (Same l injectable 20:00: as:Omnipaq H ermann solution 00 ue 300). WASTE: F/P - Black; E - Municipal Trash Bin Omnipaque No Notes: Memori a 300 2-07 (Same l injectable 20:00: as:Omnipaq H ermann solution 00 ue 300). WASTE: F/P - Black; E - Municipal Trash Bin fluticasone Yes Inhale. Met hodi propion-fransisco 8-13 st meteroL 00:00: [facility] (Advair 00 l HFA) 230-21 mcg/actuati on inhaler fluticasone Yes Inhale. Met hodi propion-fransisco 8-13 st meteroL 00:00: [facility]ospita (Advair 00 l HFA) 230-21 mcg/actuati on inhaler Albuterol Albuterol No MEGGAN 1 unit U T Sulfate Sulfate 08-30 dose by Phys ici 1.25 MG/3ML 1.25 MG/3ML 00:00: M.D. nebulizer ans Inhalation Inhalation 00 in clinic Nebulizatio Nebulizatio n Solution n Solution Ipratropium Ipratropium No MEGGAN one dose [place] 08-30 HARRY at clinic Ph ysici 0.02 % 0.02 % 00:00: M.D. now ans Inhalation Inhalation 00 Solution Solution Ipratropium Ipratropium Yes MEGGAN 1 vial in [place] -Albuterol -Albuterol 08-30 HARRY nebulizer Physici 0.5-2.5 (3) 0.5-2.5 (3) 00:00: M.D. every 4-6 ans MG/3ML MG/3ML 00 hours as Inhalation Inhalation needed for Solution Solution chest tightness, wheezing, shortness of breath, or prior to exertion, max use 6xdaily Ipratropium Ipratropium No MEGGAN one dose [place] 08-30 HARRY at clinic Ph ysici 0.02 % 0.02 % 00:00: M.D. now ans Inhalation Inhalation 00 Solution Solution esomeprazol 2020- No Take by Me mejia e (NexIUM) 08-30 06-[address] 20 MG 00:00: 00:00 [facility] capsule 00 :00 l albuterol Yes Inhale. Metho di (ACCUNEB) 08 st 2.5 mg /3 00:00: [facility]osp[facility] mL (0.083 00 l %) nebulizer solution albuterol Yes Inhale. Metho di (ACCUNEB) 3-08 st 2.5 mg /3 00:00: [facility] mL (0.083 00 l %) nebulizer solution Trelegy Trelegy Yes MEGGAN use one [place] Ellipta Ellipta 05-31 [facility] puff one Phy sici 100-62.5-25 100-62.5-25 00:00: M.D. time daily ans MCG/INH MCG/INH 00 and rinse Inhalation Inhalation mouth Aerosol Aerosol afterwards Powder Powder Breath Breath Activated Activated Albuterol Albuterol Yes MEGGAN USE 1 UNIT [place] Sulfate Sulfate 3-08 HARRY DOSE IN Phys ici (2.5 (2.5 00:00: M.D. NEBULIZER ans MG/3ML) MG/3ML) 00 EVERY 4 TO 0.083% 0.083% 6 HOURS Inhalation Inhalation NEEDED. Nebulizatio Nebulizatio n Solution n Solution meropenem No 1,000 mg, Mem oria 1000 MG 2-23 IV, Q12H, l Injection 21:29: X 35 day, Her mcgrath [Merrem] 00 # 70 bag, 0 Refill(s), other vancomycin No 1 gm, IV, Me moria 1 g 2-23 Q12H, X 35 l intravenous 21:29: day, # 70 H ermann injection 00 bag, 0 Refill(s), other meropenem No 1,000 mg, Mem oria 1000 [...] formoterol 2-23 (Same as: l 02:00: Symbicort) WASTE: Aerosol - Return to Pharmacy budesonide- No Notes: King kristina formoterol 2-23 (Same as: l 02:00: Symbicort) [place] 00 WASTE: Aerosol - Return to Pharmacy rasagiline No Notes: Memor ia 2-21 Same as l 23:00: Azilect Indra Non Formulary Item Cymbalta No Notes: Memoria 2-21 (Same as: l 23:00: Cymbalta) Indra (Do Not Crush) Flomax No Notes: Memoria 2-21 (Same As: l 23:00: Flomax) [place] "Do Not Crush" rasagiline No Notes: Memor ia 2-21 Same as l 23:00: Azilect [place] 00 Non Formulary Item Cymbalta No Notes: Memoria 2-21 (Same as: l 23:00: Cymbalta) [place] 00 (Do Not Crush) Flomax No Notes: Memoria 2-21 (Same As: l 23:00: Flomax) [place] 00 "Do Not Crush" Cathflo No Notes: Memoria Activase 2 2-21 "Syringe l mg 22:39: for Indra injection 00 catheter clearance or interventi onal radiology use. Reconstitu te each vial of Cathflo Activase with 2.2 ml Sterile Water resulting in a 1 mg/ml solution. (Same as: Activase) MEDICATION WASTE Product Size: 2 mg Product Wasted: ___ mg Cathflo No Notes: Memoria Activase 2 2-21 "Syringe l mg 22:39: for Indra injection 00 catheter clearance or interventi onal radiology use. Reconstitu te each vial of Cathflo Activase with 2.2 ml Sterile Water resulting in a 1 mg/ml solution. (Same as: Activase) MEDICATION WASTE Product Size: 2 mg Product Wasted: ___ mg Protonix No Notes: Memoria 2-21 Tablet l 22:30: should not [place] 00 be chewed or crushed. (Same as: Protonix) Protonix No Notes: Memoria 2-21 Tablet l 22:30: should not [place] 00 be chewed or crushed. (Same as: Protonix) Oxycodone No Notes: Memori a Hydrochlori 2-21 (Same as: l de 5 MG 21:33: Roxicodone Herm greer Oral Tablet 00 ) Oxycodone No Notes: Memori a Hydrochlori 2-21 (Same as: l de 5 MG 21:33: Roxicodone Herm greer Oral Tablet 00 ) 24 HR No Notes: Memoria Metoprolol 2-21 (Same as: l Tartrate 25 15:00: Toprol XL) Indra MG Extended 00 Do Not Release Crush Tablet [Toprol] Dulera 200 No 2 puff, King kristina mcg-5 -21 Route: l mcg/inh 15:00: INHALER, Oleksandr n inhalation 00 Drug Form: aerosol AERO, Dosing Weight 94.545, kg, BID, Start date: 05/16/17 9:00:00 BAKER SECOND, Duration: 30 day, Stop date: 06/14/17 17:00:00 CDT Nexium 2017-0 No 40 mg, Memoria 2-21 Route: PO, l 15:00: Drug form: [place] 00 ECCAP, BID, Dosing Weight 94.545, kg, Start date: 05/16/17 9:00:00 BAKER SECOND, Duration: 30 day, Stop date: 06/14/17 17:00:00 CDT albuterol 0 No Route: PO, Me moria 90 mcg/inh 2-21 Drug Form: l inhalation 15:00: AERO/A, Herm greer aerosol 00 Dosing Weight 94.545, kg, BID, Start date: 05/16/17 9:00:00 BAKER SECOND, Duration: 30 day, Stop date: 06/14/17 17:00:00 CDT Docusate 2017-0 No Notes: Memoria Sodium 100 2-21 (Same as: l MG Oral 15:00: Colace) [place] Capsule 00 (Do Not [Colace] Crush) 24 HR No Notes: Memoria Metoprolol 2-21 (Same as: l Tartrate 25 15:00: Toprol XL) Indra MG Extended 00 Do Not Release Crush Tablet [Toprol] Dulera 200 0 No 2 puff, King kristina mcg-5 2-21 Route: l mcg/inh 15:00: INHALER, Oleksandr n inhalation 00 Drug Form: aerosol AERO, Dosing Weight 94.545, kg, BID, Start date: 05/16/17 9:00:00 BAKER SECOND, Duration: 30 day, Stop date: 06/14/17 17:00:00 CDT Nexium 2018-0 No 40 mg, Memoria 2-21 Route: PO, l 15:00: Drug form: Indra 00 ECCAP, BID, Dosing Weight 94.545, kg, Start date: 05/16/17 9:00:00 BAKER SECOND, Duration: 30 day, Stop date: 06/14/17 17:00:00 CDT albuterol 2017-0 No Route: PO, Me moria 90 mcg/inh -21 Drug Form: l inhalation 15:00: AERO/A, Herm greer aerosol 00 Dosing Weight 94.545, kg, BID, Start date: 05/16/17 9:00:00 BAKER SECOND, Duration: 30 day, Stop date: 06/14/17 17:00:00 CDT Docusate No Notes: Memoria Sodium 100 2-21 (Same as: l MG Oral 15:00: Colace) Indra Capsule 00 (Do Not [Colace] Crush) Thyroxine No Notes: Memori a 2-21 Take 1 l 12:30: hour [place] 00 before or 2 hours after meal; Enteral feeds may interefere with the absorption of this medication .(Same as:Levothr oid, Synthroid) Thyroxine No Notes: Memori a 2-21 Take 1 l 12:30: hour [place] 00 before or 2 hours after meal; Enteral feeds may interefere with the absorption of this medication .(Same as:Levothr oid, Synthroid) albuterol No Notes: SEE Me moria 2-21 RT l 08:39: DOCUMENTAT Indra 00 ION (Same as: Proventil) albuterol No Notes: SEE Me moria 2-21 RT l 08:39: DOCUMENTAT Indra 00 ION (Same as: Proventil) Melatonin No 10 mg, Memori a 2-21 Route: PO, l 03:00: Drug form: [place] 00 CAP, Bedtime, Dosing Weight 94.545, kg, Start date: 05/15/17 21:00:00 BAKER SECOND, Duration: 30 day, Stop date: 06/13/17 21:00:00 CDT melatonin No Notes: Memori a 2-21 (Same as: l 03:00: Melatonin) Indra 00 Simvastatin No Notes: King kristina 2-21 (Same as: l 03:00: Zocor) Indra 00 heparin No Notes: Memoria 2-21 porcine l 03:00: heparin Indra 00 Melatonin No 10 mg, Memori a 2-21 Route: PO, l 03:00: Drug form: [place] 00 CAP, Bedtime, Dosing Weight 94.545, kg, Start date: 05/15/17 21:00:00 BAKER SECOND, Duration: 30 day, Stop date: 06/13/17 21:00:00 CDT melatonin No Notes: Memori a 2-21 (Same as: l 03:00: Melatonin) [place] Simvastatin No Notes: King kristina 2-21 (Same as: l 03:00: Zocor) heparin No Notes: Memoria 2-21 porcine l 03:00: heparin Indra meropenem No Notes: Memori a 2-21 (Same as: l 00:00: Merrem) . [place] 00 MEDICATION WASTE Product Size: 1000 mg Product Wasted: ___ mg meropenem No Notes: Memori a 2-21 (Same as: l 00:00: Merrem) . Indra 00 MEDICATION WASTE Product Size: 1000 mg Product Wasted: ___ mg Clonidine No Notes: Memori a Hydrochlori 2-20 (Same As: l de 0.1 MG 23:37: Catapres) Her mcgrath Oral Tablet 00 Vasotec No Notes: Memoria 2-20 (Same as: l 23:37: Vasotec-IV [place] ) Potassium No Notes: Memori a Chloride 2-20 (Same as: l 23:37: K-Dur 20) [place] "Do Not Crush" With food and full glass of water Albuterol No Notes: SEE Me moria 0.83 MG/ML 2-20 RT l Inhalant 23:37: DOCUMENTAT Her mcgrath Solution 00 ION (Same as: Proventil) Clonidine No Notes: Memori a Hydrochlori 2-20 (Same As: l de 0.1 MG 23:37: Catapres) Her mcgrath Oral Tablet 00 Vasotec No Notes: Memoria 2-20 (Same as: l 23:37: Vasotec-IV [place] 00 ) Potassium No Notes: Memori a Chloride 2-20 (Same as: l 23:37: K-Dur 20) Indra "Do Not Crush" With food and full glass of water Albuterol No Notes: SEE Me moria 0.83 MG/ML 2-20 RT l Inhalant 23:37: DOCUMENTAT Her mcgrath Solution 00 ION (Same as: Proventil) lactobacill 2018-0 No 1 tab, King kristina us 2-20 Route: PO, l acidophilus 23:26: Drug Form: Indra 00 TAB, Dosing Weight 94.545, kg, BID, Start date: 05/15/17 17:26:00 BAKER SECOND, Duration: 30 day, Stop date: 06/14/17 17:00:00 CDT lactobacill 2017-0 No 1 tab, King kristina us 2-20 Route: PO, l acidophilus 23:26: Drug Form: [place] 00 TAB, Dosing Weight 94.545, kg, BID, Start date: 05/15/17 17:26:00 BAKER SECOND, Duration: 30 day, Stop date: 06/14/17 17:00:00 CDT Vancomycin 2017- No 2001 mg: Me moria 2-20 infuse l 23:00: over 2.5 Indra 00 hours For adult patients only: Round to nearest 250 mg per Medical Staff approval MEDICATION WASTE Product Size: 1000 mg Product Wasted: ___ mg Vancomycin 2017- No 2001 mg: Me moria 2-20 infuse l 23:00: over 2.5 Indra 00 hours For adult patients only: Round to nearest 250 mg per Medical Staff approval MEDICATION WASTE Product Size: 1000 mg Product Wasted: ___ mg Ceftriaxone No Notes: King kristina 2-20 (Same As: [...] l 18:19: 4 gm/day. (Same as: Tylenol) Acetaminoph 0 No Notes: Do M emoria en 2-20 not exceed l 18:19: 4 gm/day. [place] 00 (Same as: Tylenol) ondansetron 0 No Route: IV, Memoria (ANES) 2-20 Drug form: l 14:52: INJ, ONCE, Stop date: 05/15/17 8:52:00 BAKER SECOND glycopyrrol 2018-0 No Route: IV, Memoria ate (ANES) 2-20 Drug form: l 14:52: INJ, ONCE, Stop date: 05/15/17 8:52:00 BAKER SECOND neostigmine 0 No Route: IV, Memoria (ANES) 2-20 Drug form: l 14:52: INJ, ONCE, Stop date: 05/15/17 8:52:00 BAKER SECOND famotidine No Route: IV, M emoria (ANES) 2-20 Drug form: l 14:52: INJ, ONCE, Stop date: 05/15/17 8:52:00 BAKER SECOND ondansetron 0 No Route: IV, Memoria (ANES) 2-20 Drug form: l 14:52: INJ, ONCE, Stop date: 05/15/17 8:52:00 BAKER SECOND glycopyrrol 0 No Route: IV, Memoria ate (ANES) 2-20 Drug form: l 14:52: INJ, ONCE, Stop date: 05/15/17 8:52:00 BAKER SECOND neostigmine 0 No Route: IV, Memoria (ANES) 2-20 Drug form: l 14:52: INJ, ONCE, Stop date: 05/15/17 8:52:00 BAKER SECOND famotidine 0 No Route: IV, M emoria (ANES) 2-20 Drug form: l 14:52: INJ, ONCE, Stop date: 05/15/17 8:52:00 BAKER SECOND Morphine 0 No Notes: Memoria 2-20 (Same l 14:43: as:MORPhin [place] 00 e Sulfate) Morphine No Notes: Memoria 2-20 (Same l 14:43: as:MORPhin Indra 00 e Sulfate) ePHEDrine No Route: IV, Me moria (ANES) 2-20 Drug form: l 14:39: INJ, ONCE, Stop date: 05/15/17 8:39:00 BAKER SECOND ePHEDrine 2018-0 No Route: IV, Me moria (ANES) 2-20 Drug form: l 14:39: INJ, ONCE, Stop date: 05/15/17 8:39:00 BAKER SECOND phenylephri 2018-0 No Route: IV, Memoria ne (ANES) 2-20 Drug form: l 14:34: INJ, ONCE, Stop date: 05/15/17 8:34:00 BAKER SECOND phenylephri 2018-0 No Route: IV, Memoria ne (ANES) 2-20 Drug form: l 14:34: INJ, ONCE, Stop date: 05/15/17 8:34:00 BAKER SECOND rocuronium 2018-0 No Route: IV, M emoria (ANES) 2-20 Drug form: l 14:29: INJ, ONCE, Stop date: 05/15/17 8:29:00 BAKER SECOND ceFAZolin 2018-0 No Route: IV, Me moria (ANES) 2-20 Drug form: l 14:29: INJ, ONCE, Stop date: 05/15/17 8:29:00 BAKER SECOND rocuronium 2018-0 No Route: IV, M emoria (ANES) 2-20 Drug form: l 14:29: INJ, ONCE, Stop date: 05/15/17 8:29:00 BAKER SECOND ceFAZolin 2018-0 No Route: IV, Me moria (ANES) 2-20 Drug form: l 14:29: INJ, ONCE, Stop date: 05/15/17 8:29:00 BAKER SECOND propofol 2018-0 No Route: IV, Mem oria (ANES) 2-20 Drug form: l 14:24: INJ, ONCE, Stop date: 05/15/17 8:24:00 BAKER SECOND succinylcho 2018-0 No Route: IV, Memoria line (ANES) 2-20 Drug form: l 14:24: INJ, ONCE, Stop date: 05/15/17 8:24:00 BAKER SECOND propofol 2018-0 No Route: IV, Mem oria (ANES) 2-20 Drug form: l 14:24: INJ, ONCE, Stop date: 05/15/17 8:24:00 BAKER SECOND succinylcho 2018-0 No Route: IV, Memoria line (ANES) 2-20 Drug form: l 14:24: INJ, ONCE, [place] 00 Stop date: 05/15/17 8:24:00 BAKER SECOND Promethazin 2018-0 No 6.25 mg, Me moria e 2-20 Route: l 14:22: IVPB, [place] 00 ONCE, Dosing Weight 95.455, kg, PRN Nausea & Vomiting, Start date: 05/15/17 8:22:00 BAKER SECOND Ondansetron 2018-0 No 4 mg, Memor ia 2-20 Route: l 14:22: IVP, ONCE, [place] 00 Dosing Weight 95.455, kg, PRN Nausea & Vomiting, Start date: 05/15/17 8:22:00 BAKER SECOND Meperidine 2018-0 No 12.5 mg, Mem oria 2-20 Route: l 14:22: IVP, [place] 00 Q30Min, Dosing Weight 95.455, kg, PRN Other -See Comment, For shivering, Start date: 05/15/17 8:22:00 BAKER SECOND, Duration: 2 doses or times, Stop date: Limited # of times Albuterol 2018-0 No 2.49 mg, King kristina 0.83 MG/ML 2-20 Route: l Inhalant 14:22: NEB, [place] Solution 00 Q20Min, Dosing Weight 95.455, kg, PRN Wheezing, Priority: STAT, Start date: 05/15/17 8:22:00 BAKER SECOND, Duration: 30 day, Stop date: 06/14/17 9:21:00 CDT Flumazenil 2018-0 No 0.2 mg, King kristina 2-20 Route: l 14:22: IVP, PRN, [place] 00 Dosing Weight 95.455, kg, PRN Benzodiaze pine Reversal, Initial dose, Start date: 05/15/17 8:22:00 BAKER SECOND, Duration: 30 day, Stop date: 06/14/17 9:21:00 CDT Morphine 2018-0 No 2 mg, Memoria 2-20 Route: l 14:22: IVP, [place] 00 Q5Min, Dosing Weight 95.455, kg, PRN Pain Score 4-6, Start date: 05/15/17 8:22:00 BAKER SECOND, Duration: 5 doses or times, Stop date: Limited # of times Hydromorpho 2018-0 No 0.5 mg, Mem oria ne 2-20 Route: l 14:22: IVP, [place] 00 Q5Min, Dosing Weight 95.455, kg, PRN Pain Score 7-10, Start date: 05/15/17 8:22:00 BAKER SECOND, Duration: 4 doses or times, Stop date: Limited # of times Naloxone 2018-0 No 0.4 mg, Memori a 2-20 Route: l 14:22: IVP, [place] 00 Q2MIN, Dosing Weight 95.455, kg, PRN Narcotic Reversal, Start date: 05/15/17 8:22:00 BAKER SECOND, Duration: 8 doses or times, Stop date: Limited # of times Labetalol 2018-0 No 10 mg, Memori a 2-20 Route: l 14:22: IVP, Indra 00 Q5Min, Dosing Weight 95.455, kg, PRN Elevated BP, Start date: 05/15/17 8:22:00 BAKER SECOND, Duration: 5 doses or times, Stop date: Limited # of times Promethazin 2018-0 No 6.25 mg, Me moria e 2-20 Route: l 14:22: IVPB, Indra 00 ONCE, Dosing Weight 95.455, kg, PRN Nausea & Vomiting, Start date: 05/15/17 8:22:00 BAKER SECOND Ondansetron 2018-0 No 4 mg, Memor ia 2-20 Route: l 14:22: IVP, ONCE, Indra 00 Dosing Weight 95.455, kg, PRN Nausea & Vomiting, Start date: 05/15/17 8:22:00 BAKER SECOND Meperidine 2018-0 No 12.5 mg, Mem oria 2-20 Route: l 14:22: IVP, Indra 00 Q30Min, Dosing Weight 95.455, kg, PRN Other -See Comment, For shivering, Start date: 05/15/17 8:22:00 BAKER SECOND, Duration: 2 doses or times, Stop date: Limited # of times Albuterol 2018-0 No 2.49 mg, King kristina 0.83 MG/ML 2-20 Route: l Inhalant 14:22: NEB, Indra Solution 00 Q20Min, Dosing Weight 95.455, kg, PRN Wheezing, Priority: STAT, Start date: 05/15/17 8:22:00 BAKER SECOND, Duration: 30 day, Stop date: 06/14/17 9:21:00 CDT Flumazenil 2018-0 No 0.2 mg, King kristina 2-20 Route: l 14:22: IVP, PRN, [place] 00 Dosing Weight 95.455, kg, PRN Benzodiaze pine Reversal, Initial dose, Start date: 05/15/17 8:22:00 BAKER SECOND, Duration: 30 day, Stop date: 06/14/17 9:21:00 CDT Morphine 2018-0 No 2 mg, Memoria 2-20 Route: l 14:22: IVP, Indra 00 Q5Min, Dosing Weight 95.455, kg, PRN Pain Score 4-6, Start date: 05/15/17 8:22:00 BAKER SECOND, Duration: 5 doses or times, Stop date: Limited # of times Hydromorpho 2018-0 No 0.5 mg, Mem oria ne 2-20 Route: l 14:22: IVP, [place] 00 Q5Min, Dosing Weight 95.455, kg, PRN Pain Score 7-10, Start date: 05/15/17 8:22:00 BAKER SECOND, Duration: 4 doses or times, Stop date: Limited # of times Naloxone 2018-0 No 0.4 mg, Memori a 2-20 Route: l 14:22: IVP, Indra 00 Q2MIN, Dosing Weight 95.455, kg, PRN Narcotic Reversal, Start date: 05/15/17 8:22:00 BAKER SECOND, Duration: 8 doses or times, Stop date: Limited # of times Labetalol 2018-0 No 10 mg, Memori a 2-20 Route: l 14:22: IVP, [place] 00 Q5Min, Dosing Weight 95.455, kg, PRN Elevated BP, Start date: 05/15/17 8:22:00 BAKER SECOND, Duration: 5 doses or times, Stop date: Limited # of times lidocaine 2018-0 No Route: IV, Me moria (ANES) 2-20 Drug form: l 14:19: INJ, ONCE, [place] Stop date: 05/15/17 8:19:00 BAKER SECOND fentaNYL 2018-0 No Route: IV, Mem oria (ANES) 2-20 Drug form: l 14:19: INJ, ONCE, [place] Stop date: 05/15/17 8:19:00 BAKER SECOND lidocaine 2018-0 No Route: IV, Me moria (ANES) 2-20 Drug form: l 14:19: INJ, ONCE, [place] 00 Stop date: 05/15/17 8:19:00 BAKER SECOND fentaNYL 2018-0 No Route: IV, Mem oria (ANES) 2-20 Drug form: l 14:19: INJ, ONCE, [place] 00 Stop date: 05/15/17 8:19:00 BAKER SECOND acetaminoph 2018-0 No Route: IV, Memoria en (ANES) 2-20 Drug form: l 10 mg 14:14: INJ, Start Oleksandr n date: 05/15/17 8:14:00 BAKER SECOND, Stop date: 05/15/17 9:14:00 BAKER SECOND acetaminoph 2018-0 No Route: IV, Memoria en (ANES) 2-20 Drug form: l 10 mg 14:14: INJ, Start Oleksandr n date: 05/15/17 8:14:00 BAKER SECOND, Stop date: 05/15/17 9:14:00 BAKER SECOND Lactated 2017-0 No Route: IV, Mem oria Ringers 2-20 Total l Injection 13:14: Volume: Salud nn IV (ANES) 00 1,000, 1000 mL Start date: 05/15/17 7:14:00 BAKER SECOND, Stop date: 05/15/17 8:14:00 BAKER SECOND Lactated 2017-0 No Route: IV, Mem oria Ringers 2-20 Total l Injection 13:14: Volume: Salud nn IV (ANES) 00 1,000, 1000 mL Start date: 05/15/17 7:14:00 BAKER SECOND, Stop date: 05/15/17 8:14:00 BAKER SECOND ceFAZolin + 2017-0 No Notes: King kristina sterile 2-20 (Same As: l water 20 mL 05:00: Ancef, Herm greer 00 Kefzol) MEDICATION WASTE Product Size: 1000 mg Product Wasted: ___ mg ceFAZolin + No Notes: King kristina sterile 2-20 (Same As: l water 20 mL 05:00: Ancef, Herm greer 00 Kefzol) MEDICATION WASTE Product Size: 1000 mg Product Wasted: ___ mg Ceftriaxone 2018-0 No 2 gm, IV, M emoria 1000 MG 2-12 Daily, X l Injection 18:46: 14 day, # Her mcgrath [Rocephin] 00 14 bag, 0 Refill(s), other vancomycin 2018-0 No 1 gm, IV, Me moria 1 g 2-12 Q12H, X 14 l intravenous 18:46: day, # 28 H ermann injection 00 bag, 0 Refill(s), other Ceftriaxone 2018-0 No 2 gm, IV, M emoria 1000 MG 2-12 Daily, X l Injection 18:46: 14 day, # Her mcgrath [Rocephin] 00 14 bag, 0 Refill(s), other vancomycin 2018-0 No 1 gm, IV, Me moria 1 g 2-12 Q12H, X 14 l intravenous 18:46: day, # 28 H ermann injection 00 bag, 0 Refill(s), other Ceftriaxone 0 No Notes: King kristina 2-10 (Same As: l 03:00: Rocephin). Indra Use with 100 mL NS and infuse over 30 min MEDICATION WASTE Product Size: 1000 mg Product Wasted: ___ mg Ceftriaxone No Notes: King kristina 2-10 (Same As: l 03:00: Rocephin). Indra 00 Use with 100 mL NS and infuse over 30 min MEDICATION WASTE Product Size: 1000 mg Product Wasted: ___ mg 24 HR No Notes: Memoria Metoprolol 05-04 (Same as: l Tartrate 25 15:00: Toprol XL) [place] MG Extended Do Not Release Crush Tablet [Toprol] Dulera 200 0 No 2 puff, King kristina mcg-5 05-04 Route: l mcg/inh 15:00: INHALER, Oleksandr n inhalation 00 Drug Form: aerosol AERO, Dosing Weight 103.4, kg, BID, Start date: 05/04/17 9:00:00 BAKER SECOND, Duration: 30 day, Stop date: 06/02/17 17:00:00 BAKER SECOND 24 HR No Notes: Memoria Metoprolol 2-09 (Same as: l Tartrate 25 15:00: Toprol XL) Indra MG Extended 00 Do Not Release Crush Tablet [Toprol] Dulera 200 No 2 puff, King kristina mcg-5 2 Route: l mcg/inh 15:00: INHALER, Oleksandr n inhalation 00 Drug Form: aerosol AERO, Dosing Weight 103.4, kg, BID, Start date: 05/04/17 9:00:00 BAKER SECOND, Duration: 30 day, Stop date: 06/02/17 17:00:00 BAKER SECOND Clonidine No Notes: Memori a Hydrochlori 2-09 (Same As: l de 0.1 MG 14:07: Catapres) Her mcgrath Oral Tablet 00 Vasotec No Notes: Memoria 2-09 (Same as: l 14:07: Vasotec-IV Indra ) Clonidine No Notes: Memori a Hydrochlori 2-09 (Same As: l de 0.1 MG 14:07: Catapres) Her mcgrath Oral Tablet 00 Vasotec No Notes: Memoria 2-09 (Same as: l 14:07: Vasotec-IV [place] 00 ) cetirizine No Notes: Memor ia 2-08 (Same As: l 17:30: Zyrtec) [place] cetirizine No Notes: Memor ia 2-08 (Same As: l 17:30: Zyrtec) [place] 00 Fluticasone No 2 spray, Me moria propionate 2-08 Route: l 0.05 17:01: Each [place] MG/ACTUAT 00 Affected Metered Nostril, Dose Nasal Drug Form: [place], [Flonase] Dosing Weight 103.4, kg, Daily, Start date: 05/03/17 11:01:00 BAKER SECOND, Duration: 30 day, Stop date: 06/02/17 9:00:00 BAKER SECOND Fluticasone No 2 spray, Me moria propionate 2-08 Route: l 0.05 17:01: Each Indra MG/ACTUAT 00 Affected Metered Nostril, Dose Nasal Drug Form: [place] SPRY, [Flonase] Dosing Weight 103.4, kg, Daily, Start date: 05/03/17 11:01:00 BAKER SECOND, Duration: 30 day, Stop date: 06/02/17 9:00:00 BAKER SECOND Loratadine 2018-0 No 10 mg, Memor ia 2-08 Route: PO, l 15:00: Drug form: Indra 00 TAB, Daily, Dosing Weight 103.4, kg, Start date: 05/03/17 9:00:00 BAKER SECOND, Duration: 30 day, Stop date: 06/01/17 9:00:00 BAKER SECOND, .. Loratadine 2018-0 No 10 mg, Memor ia 2-08 Route: PO, l 15:00: Drug form: [place] 00 TAB, Daily, Dosing Weight 103.4, kg, Start date: 05/03/17 9:00:00 BAKER SECOND, Duration: 30 day, Stop date: 06/01/17 9:00:00 BAKER SECOND, .. lactobacill 2018-0 No 1 tab, King kristina us 2-07 Route: PO, l acidophilus 15:00: Drug Form: [place] 00 TAB, Dosing Weight 95.455, kg, BID, Start date: 05/02/17 9:00:00 BAKER SECOND, Duration: 30 day, Stop date: 05/31/17 17:00:00 BAKER SECOND lactobacill 2018-0 No 1 tab, [place] kristina us 2-07 Route: PO, l acidophilus 15:00: Drug Form: [place] 00 TAB, Dosing Weight 95.455, kg, BID, Start date: 05/02/17 9:00:00 BAKER SECOND, Duration: 30 day, Stop date: 05/31/17 17:00:00 BAKER SECOND INCRUSE 2018-0 No INCRUSE Memoria Ellipta 2-07 Ellipta l 62.5mcg 14:00: 62.5mcg Indra inhalation 00 inhalation powder powder, 1 inhalation (Pt's own med), Drug form: MISC, Route: INHALER, RDaily, 05/02/17 8:00:00 BAKER SECOND, Duration: 30 day, Stop date: 05/31/17 8:00:00 BAKER SECOND INCRUSE 2018-0 No INCRUSE Memoria Ellipta 2-07 Ellipta l 62.5mcg 14:00: 62.5mcg Indra inhalation 00 inhalation powder powder, 1 inhalation (Pt's own med), Drug form: MISC, Route: INHALER, RDaily, 05/02/17 8:00:00 BAKER SECOND, Duration: 30 day, Stop date: 05/31/17 8:00:00 BAKER SECOND Incruse 2017- Yes 62.5 Memoria Ellipta 2-07 microgram, l 62.5 mcg 13:50: INHALATION Her mcgrath inhalation 00 , Daily, 0 powder Refill(s) Incruse Yes 62.5 Memoria Ellipta 2-07 microgram, l 62.5 mcg 13:50: INHALATION Her mcgrath inhalation 00 , Daily, 0 powder Refill(s) Dulera 200 Yes 2 puff, King kristina mcg-5 2-07 INHALER, l mcg/inh 13:49: BID, # 1 Oleksandr n inhalation 00 ea aerosol Dulera 200 Yes 2 puff, [place] kristina mcg-5 2-07 INHALER, l mcg/inh 13:49: BID, # 1 Oleksandr n inhalation 00 ea aerosol Thyroxine No Notes: Memori a 2-07 Take 1 l 12:30: hour Indra 00 before or 2 hours after meal; Enteral feeds may interefere with the absorption of this medication .(Same as:Levothr oid, Synthroid) Thyroxine No Notes: Memori a 2-07 Take 1 l 12:30: hour [place] 00 before or 2 hours after meal; Enteral feeds may interefere with the absorption of this medication .(Same as:Levothr oid, Synthroid) heparin No Notes: Memoria 2-07 porcine l 04:30: heparin Indra 00 heparin No Notes: Memoria 2-07 porcine l 04:30: heparin Indra 00 Simvastatin No Notes: King kristina 2-07 (Same as: l 03:00: Zocor) [place] Melatonin No Notes: Memori a 2-07 (Same as: l 03:00: Melatonin) Indra Simvastatin No Notes: King kristina 2-07 (Same as: l 03:00: Zocor) Indra 00 Melatonin No Notes: Memori a 2-07 (Same as: l 03:00: Melatonin) Indra 00 200 ACTUAT No Notes: SEE Juan F minaya Albuterol 2-07 RT l 0.09 02:00: DOCUMENTAT [place] MG/ACTUAT 00 ION (Same Metered as: Dose Proventil) Inhaler [ProAir HFA] DULERA No DULERA Memoria 200mcg/5mcg 2-07 200mcg/5mc l per 02:00: g per [place] actuation 00 actuation INHALER INHALER, 2 puffs (Pt's own med), Drug form: MISC, Route: INHALER, RBID, 05/01/17 20:00:00 BAKER SECOND, Duration: 30 day, Stop date: 05/31/17 8:00:00 BAKER SECOND cefepime No Notes: Memoria 2- (Same As: l 02:00: Maxipime) Indra 00 MEDICATION WASTE Product Size: 1000 mg Product Wasted: ___ mg Vancomycin No 2001 mg: Me moria 2-07 infuse l 02:00: over 2.5 [place] 00 hours For adult patients only: Round to nearest 250 mg per Medical Staff approval MEDICATION WASTE Product Size: 1000 mg Product Wasted: ___ mg 200 ACTUAT No Notes: SEE Juan F minaya Albuterol 2-07 RT l 0.09 02:00: DOCUMENTAT [place] MG/ACTUAT 00 ION (Same Metered as: Dose Proventil) Inhaler [ProAir HFA] DULERA No DULERA Memoria 200mcg/5mcg 2-07 200mcg/5mc l per 02:00: g per Indra actuation 00 actuation INHALER INHALER, 2 puffs (Pt's own med), Drug form: MISC, Route: INHALER, RBID, 05/01/17 20:00:00 BAKER SECOND, Duration: 30 day, Stop date: 05/31/17 8:00:00 BAKER SECOND cefepime No Notes: Memoria 2- (Same As: l 02:00: Maxipime) [place] MEDICATION WASTE Product Size: 1000 mg Product Wasted: ___ mg Vancomycin 2018-0 No 2001 mg: Me moria 2-07 infuse l 02:00: over 2.5 Indra 00 hours For adult patients only: Round to nearest 250 mg per Medical Staff approval MEDICATION WASTE Product Size: 1000 mg Product Wasted: ___ mg Acetaminoph 2017-0 No Notes: Do M emoria en 2-07 not exceed l 00:00: 4 gm/day. [place] 00 (Same as: Tylenol) Protonix 2017-0 No 40 mg, 1 Memor ia 2-07 tab, l 00:00: Route: PO, [place] 00 Drug form: ECTAB, BID-Before Meals, Start date: 05/01/17 18:00:00 BAKER SECOND, Duration: 30 day, Stop date: 05/31/17 16:30:00 BAKER SECOND Acetaminoph 2017-0 No Notes: Do M emoria en 2- not exceed l 00:00: 4 gm/day. [place] 00 (Same as: Tylenol) Protonix 2017-0 No 40 mg, 1 Memor ia 2-07 tab, l 00:00: Route: PO, [place] 00 Drug form: ECTAB, BID-Before Meals, Start date: 05/01/17 18:00:00 BAKER SECOND, Duration: 30 day, Stop date: 05/31/17 16:30:00 BAKER SECOND Flomax No Notes: Memoria 2-06 (Same As: l 23:20: Flomax) [place] 00 "Do Not Crush" rasagiline 0 No Notes: Memor ia 2-06 Same as l 23:20: Azilect [place] 00 Non Formulary Item Flomax 0 No Notes: Memoria 2-06 (Same As: l 23:20: Flomax) [place] "Do Not Crush" rasagiline 2017-0 No Notes: Memor ia 2-06 Same as l 23:20: Azilect [place] 00 Non Formulary Item Cymbalta 2017- No 60 mg, 2 Memor ia 2-06 cap, l 23:17: Route: PO, [place] 00 Drug form: DRC, QPM, Dosing Weight 95.455, kg, Start date: 05/01/17 17:17:00 BAKER SECOND, Duration: 30 day, Stop date: 05/31/17 17:00:00 BAKER SECOND Cymbalta 2018-0 No 60 mg, 2 Memor ia 2-06 cap, l 23:17: Route: PO, [place] 00 Drug form: DRC, QPM, Dosing Weight 95.455, kg, Start date: 05/01/17 17:17:00 BAKER SECOND, Duration: 30 day, Stop date: 05/31/17 17:00:00 BAKER SECOND Nexium 2018-0 No 40 mg, Memoria 2-06 Route: PO, l 23:00: Drug form: Indra 00 ECCAP, BID, Dosing Weight 95.455, kg, Start date: 05/01/17 17:00:00 BAKER SECOND, Duration: 30 day, Stop date: 05/31/17 9:00:00 BAKER SECOND Docusate 2018-0 No 100 mg, 1 King kristina Sodium 100 2-06 cap, l MG Oral 23:00: Route: PO, Herm greer Capsule 00 Drug form: CAP, BID, Dosing Weight 95.455, kg, Start date: 05/01/17 17:00:00 BAKER SECOND, Duration: 30 day, Stop date: 05/31/17 9:00:00 BAKER SECOND Asmanex HFA 2018-0 No Asmanex Mem oria 2-06 HFA, See l 23:00: Corrina Burrell 00 ns, Route: INHALATION , BID, 05/01/17 17:00:00 BAKER SECOND, Duration: 30 day, Stop date: 05/31/17 9:00:00 BAKER SECOND Levofloxaci 2018-0 No Notes: King kristina n 2-06 (Same l 23:00: as:Levaqui [place] 00 n) Nexium 2018-0 No 40 mg, Memoria 2-06 Route: PO, l 23:00: Drug form: [place] 00 ECCAP, BID, Dosing Weight 95.455, kg, Start date: 05/01/17 17:00:00 BAKER SECOND, Duration: 30 day, Stop date: 05/31/17 9:00:00 BAKER SECOND Docusate 2018-0 No 100 mg, 1 King kristina Sodium 100 2-06 cap, l MG Oral 23:00: Route: PO, Herm greer Capsule 00 Drug form: CAP, BID, Dosing Weight 95.455, kg, Start date: 05/01/17 17:00:00 BAKER SECOND, Duration: 30 day, Stop date: 05/31/17 9:00:00 BAKER SECOND Asmanex HFA No Asmanex Mem oria 2- HFA, See l 23:00: Instructio [place] 00 ns, Route: INHALATION , BID, 05/01/17 17:00:00 BAKER SECOND, Duration: 30 day, Stop date: 05/31/17 9:00:00 BAKER SECOND Levofloxaci No Notes: King kristina n 2-06 (Same l 23:00: as:Levaqui Indra 00 n) Albuterol No Notes: SEE Me moria 0.83 MG/ML 2-06 RT l Inhalant 22:46: DOCUMENTAT Her mcgrath Solution 00 ION (Same as: Proventil) Albuterol No Notes: SEE Me moria 0.83 MG/ML 2-06 RT l Inhalant 22:46: DOCUMENTAT Her mcgrath Solution 00 ION (Same as: Proventil) BD Normal No Notes: Memori a Saline 2-06 (Same as: l Flush 21:49: BD Posiflush) BD Normal No Notes: Memori a Saline 2-06 (Same as: l Flush 21:49: BD Posiflush) neostigmine No Route: IV, Memoria (ANES) 05-01 Drug form: l 16:14: INJ, ONCE, Stop date: 05/01/17 10:14:00 BAKER SECOND glycopyrrol No Route: IV, Memoria ate (ANES) 05-01 Drug form: l 16:14: INJ, ONCE, Stop date: 05/01/17 10:14:00 BAKER SECOND dexamethaso No Route: IV, Memoria ne (ANES) 05-01 Drug form: l 16:14: INJ, ONCE, Stop date: 05/01/17 10:14:00 BAKER SECOND famotidine No Route: IV, M emoria (ANES) 05-01 Drug form: l 16:14: INJ, ONCE Stop date: 05/01/17 10:14:00 BAK[facility] SECOND ondansetron 2018-0 No Route: IV, Memoria (ANES) 05-01 Drug form: l 16:14: INJ, ONCE, Stop date: 05/01/17 10:14:00 BAKER SECOND neostigmine 2018-0 No Route: IV, Memoria (ANES) 05-01 Drug form: l 16:14: INJ, ONCE, Stop date: 05/01/17 10:14:00 BAKER SECOND glycopyrrol 2018-0 No Route: IV, Memoria ate (ANES) 05-01 Drug form: l 16:14: INJ, ONCE, Stop date: 05/01/17 10:14:00 BAKER SECOND dexamethaso 2017-0 No Route: IV, Memoria ne (ANES) 05-01 Drug form: l 16:14: INJ, ONCE, Stop date: 05/01/17 10:14:00 BAKER SECOND famotidine 2017-0 No Route: IV, M emoria (ANES) 05-01 Drug form: l 16:14: INJ, ONCE, Stop date: 05/01/17 10:14:00 BAKER SECOND ondansetron 2017-0 No Route: IV, Memoria (ANES) 05-01 Drug form: l 16:14: INJ, ONCE, Stop date: 05/01/17 10:14:00 BAKER SECOND phenylephri 2017-0 No Route: IV, Memoria ne (ANES) 05-01 Drug form: l 16:11: INJ, ONCE, Stop date: 05/01/17 10:11:00 BAKER SECOND phenylephri 2017-0 No Route: IV, Memoria ne (ANES) 05-01 Drug form: l 16:11: INJ, ONCE, Stop date: 05/01/17 10:11:00 BAKER SECOND ePHEDrine 2017-0 No Route: IV, Me moria (ANES) 05-01 Drug form: l 16:06: INJ, ONCE, Stop date: 05/01/17 10:06:00 BAKER SECOND ePHEDrine 2018-0 No Route: IV, Me moria (ANES) 05-01 Drug form: l 16:06: INJ, ONCE, Stop date: 05/01/17 10:06:00 BAKER SECOND rocuronium 2018-0 No Route: IV, M emoria (ANES) 2- Drug form: l 16:01: INJ, ONCE, Stop date: 05/01/17 10:01:00 BAKER SECOND fentaNYL 2018-0 No Route: IV, Mem oria (ANES) 2- Drug form: l 16:01: INJ, ONCE, Stop date: 05/01/17 10:01:00 BAKER SECOND propofol 2018-0 No Route: IV, Mem oria (ANES) 2- Drug form: l 16:01: INJ, ONCE, Stop date: 05/01/17 10:01:00 BAKER SECOND lidocaine 2018-0 No Route: IV, Me moria (ANES) 2- Drug form: l 16:01: INJ, ONCE, Stop date: 05/01/17 10:01:00 BAKER SECOND succinylcho 2018-0 No Route: IV, Memoria line (ANES) 2 Drug form: l 16:01: INJ, ONCE, Stop date: 05/01/17 10:01:00 BAKER SECOND rocuronium 2018-0 No Route: IV, M emoria (ANES) 2- Drug form: l 16:01: INJ, ONCE, Stop date: 05/01/17 10:01:00 BAKER SECOND fentaNYL 2018-0 No Route: IV, Mem oria (ANES) 2 Drug form: l 16:01: INJ, ONCE, Stop date: 05/01/17 10:01:00 BAKER SECOND propofol 2018-0 No Route: IV, Mem oria (ANES) 2- Drug form: l 16:01: INJ, ONCE, Stop date: 05/01/17 10:01:00 BAKER SECOND lidocaine 2018-0 No Route: IV, Me moria (ANES) 2- Drug form: l 16:01: INJ, ONCE, Stop date: 05/01/17 10:01:00 BAKER SECOND succinylcho 2018-0 No Route: IV, Memoria line (ANES) 2 Drug form: l 16:01: INJ, ONCE, Stop date: 05/01/17 10:01:00 BAKER SECOND Oxycodone 2018-0 No Notes: Memori a Hydrochlori 2-06 (Same as: l de 5 MG 15:58: Roxicodone Herm greer Oral Tablet 00 ) Morphine No Notes: Memoria 2-06 (Same l 15:58: as:MORPhin [place] 00 e Sulfate) Oxycodone No Notes: Memori a Hydrochlori 2-06 (Same as: l de 5 MG 15:58: Roxicodone Herm greer Oral Tablet 00 ) Morphine No Notes: Memoria 2-06 (Same l 15:58: as:MORPhin [place] 00 e Sulfate) Ondansetron No Notes: King kristina 2- (Same as: l 15:53: Zofran) [place] 00 MEDICATION WASTE Product Size: 4 mg Product Wasted: ___ mg Lactated No 1,000 mL, King kristina Ringers IV 05-01 Rate: 100 l 1,000 mL 15:53: ml/hr, [place] 00 Infuse over: 10 hr, Route: IV, Dosing Weight 95.455 kg, Total Volume: 1,000, Start date: 05/01/17 9:53:00 BAKER SECOND, Duration: 30 day, Stop date: 05/31/17 9:52:00 BAKER SECOND, 2.18, m2 Ondansetron No Notes: King kristina - (Same as: l 15:53: Zofran) [place] 00 MEDICATION WASTE Product Size: 4 mg Product Wasted: ___ mg Lactated No 1,000 mL, King kristina Ringers IV 05-01 Rate: 100 l 1,000 mL 15:53: ml/hr, [place] 00 Infuse over: 10 hr, Route: IV, Dosing Weight 95.455 kg, Total Volume: 1,000, Start date: 05/01/17 9:53:00 BAKER SECOND, Duration: 30 day, Stop date: 05/31/17 9:52:00 BAKER SECOND, 2.18, m2 acetaminoph No Route: IV, Memoria en (ANES) 05-01 Drug form: l 10 mg 15:52: INJ, Start Oleksandr n 00 date: 05/01/17 9:52:00 BAKER SECOND, Stop date: 05/01/17 10:52:00 BAKER SECOND acetaminoph 2017-0 No Route: IV, Memoria en (ANES) 05-01 Drug form: l 10 mg 15:52: INJ, Start Oleksandr n date: 05/01/17 9:52:00 BAKER SECOND, Stop date: 05/01/17 10:52:00 BAKER SECOND ceFAZolin 2018-0 No Route: IV, Me moria (ANES) 05-01 Drug form: l mg 15:21: INJ, Start Indra date: 05/01/17 9:21:00 BAKER SECOND, Stop date: 05/01/17 10:21:00 BAKER SECOND ceFAZolin 2018-0 No Route: IV, Me moria (ANES) 05-01 Drug form: l mg 15:21: INJ, Start Indra date: 05/01/17 9:21:00 BAKER SECOND, Stop date: 05/01/17 10:21:00 BAKER SECOND phenylephri 2017-0 No Route: IV, Memoria ne (ANES) 05-01 Drug form: l 100 14:55: INJ, Start Indra microgram date: 05/01/17 8:55:00 BAKER SECOND, Stop date: 05/01/17 9:55:00 BAKER SECOND phenylephri 2017-0 No Route: IV, Memoria ne (ANES) 05-01 Drug form: l 100 14:55: INJ, Start Indra microgram date: 05/01/17 8:55:00 BAKER SECOND, Stop date: 05/01/17 9:55:00 BAKER SECOND Lactated 2017-0 No Route: IV, Mem oria Ringers 05-01 Total l Injection 14:38: Volume: Salud nn IV (ANES) 00 1,000, 1000 mL Start date: 05/01/17 8:38:00 BAKER SECOND, Stop date: 05/01/17 9:38:00 BAKER SECOND Lactated 0 No Route: IV, Mem oria Ringers - Total l Injection 14:38: Volume: Salud nn IV (ANES) 00 1,000, 1000 mL Start date: 05/01/17 8:38:00 BAKER SECOND, Stop date: 05/01/17 9:38:00 BAKER SECOND ceFAZolin + 2017-0 No Notes: King kristina sterile 05-01 (Same As: l water 20 mL 06:00: Ancef, Herm greer Kefzol) MEDICATION WASTE Product Size: 1000 mg Product Wasted: ___ mg ceFAZolin + No Notes: King kristina sterile 2-06 (Same As: l water 20 mL 06:00: Ancef, Herm greer 00 Kefzol) MEDICATION WASTE Product Size: 1000 mg Product Wasted: ___ mg neostigmine No Route: IV, Memoria (ANES) 04-13 Drug form: l 21:55: INJ, ONCE, Stop date: 04/13/17 15:55:00 BAKER SECOND ondansetron 0 No Route: IV, Memoria (ANES) 04-13 Drug form: l 21:55: INJ, ONCE, Stop date: 04/13/17 15:55:00 BAKER SECOND phenylephri 2017-0 No Route: IV, Memoria ne (ANES) 04-13 Drug form: l 21:55: INJ, ONCE Stop date: 04/13/17 15:55:00 BAKER SECOND glycopyrrol 0 No Route: IV, Memoria ate (ANES) 04-13 Drug form: l 21:55: INJ, ONCE, Stop date: 04/13/17 15:55:00 BAKER SECOND neostigmine 2017-0 No Route: IV, Memoria (ANES) 04-13 Drug form: l 21:55: INJ, ONCE Stop date: 04/13/17 15:55:00 BAKER SECOND ondansetron 0 No Route: IV, Memoria (ANES) 04-13 Drug form: l 21:55: INJ, ONCE Stop date: 04/13/17 15:55:00 BAKER SECOND phenylephri 2017-0 No Route: IV, Memoria ne (ANES) 04-13 Drug form: l 21:55: INJ, ONCE Stop date: 04/13/17 15:55:00 BAKER SECOND glycopyrrol 2017-0 No Route: IV, Memoria ate (ANES) 04-13 Drug form: l 21:55: INJ, ONCE Stop date: 04/13/17 15:55:00 BAKER SECOND metoprolol 2018-0 No Route: IV, M emoria (ANES) - Drug form: l 21:36: INJ, ONCE, Stop date: 04/13/17 15:36:00 BAKER SECOND ePHEDrine No Route: IV, moria (ANES) 04-13 Drug form: l 21:36: INJ, ONCE, Stop date: 04/13/17 15:36:00 BAKER SECOND metoprolol No Route: IV, Juan F emoria (ANES) 04-13 Drug form: l 21:36: INJ, ONCE, Stop date: 04/13/17 15:36:00 BAKER SECOND ePHEDrine No Route: IV, moria (ANES) 04-13 Drug form: l 21:36: INJ, ONCE, Stop date: 04/13/17 15:36:00 BAKER SECOND Acetaminoph No 650 mg = 2 Memoria en 325 MG 1-19 tab, PO, l Oral Tablet 21:27: Q4H, PRN He rmann [Tylenol] 00 Pain, X 10 day, # 120 tab, 0 Refill(s), other Ketorolac No 10 mg = 1 Mem oria Tromethamin 1-19 tab, PO, l e 10 MG 21:27: Q8H, X 3 Oleksandr n Oral Tablet 00 day, # 9 tab, 0 Refill(s), Pharmacy: [facility] Acetaminoph No 650 mg = 2 Memoria en 325 MG 1-19 tab, PO, l Oral Tablet 21:27: Q4H, PRN He rmann [Tylenol] 00 Pain, X 10 day, # 120 tab, 0 Refill(s), other Ketorolac No 10 mg = 1 Mem oria Tromethamin 1-19 tab, PO, l e 10 MG 21:27: Q8H, X 3 Oleksandr n Oral Tablet 00 day, # 9 tab, 0 Refill(s), Pharmacy: [facility] rocuronium No Route: IV, Juan F emoria (ANES) 04-13 Drug form: l 21:26: INJ, ONCE, Stop date: 04/13/17 15:26:00 BAKER SECOND phenylephri 2018-0 No Route: IV, Memoria ne (ANES) 04-13 Drug form: l 21:26: INJ, ONCE, Stop date: 04/13/17 15:26:00 BAKER SECOND ePHEDrine 2017-0 No Route: IV, Me moria (ANES) 04-13 Drug form: l 21:26: INJ, ONCE, Stop date: 04/13/17 15:26:00 BAKER SECOND dexamethaso 2017-0 No Route: IV, Memoria ne (ANES) 04-13 Drug form: l 21:26: INJ, ONCE, Stop date: 04/13/17 15:26:00 BAKER SECOND famotidine 2017-0 No Route: IV, M emoria (ANES) 04-13 Drug form: l 21:26: INJ, ONCE, Stop date: 04/13/17 15:26:00 BAKER SECOND rocuronium 2017-0 No Route: IV, M emoria (ANES) 04-13 Drug form: l 21:26: INJ, ONCE, Stop date: 04/13/17 15:26:00 BAKER SECOND phenylephri 2017-0 No Route: IV, Memoria ne (ANES) 04-13 Drug form: l 21:26: INJ, ONCE, Stop date: 04/13/17 15:26:00 BAKER SECOND ePHEDrine 2017-0 No Route: IV, Me moria (ANES) 04-13 Drug form: l 21:26: INJ, ONCE, Stop date: 04/13/17 15:26:00 BAKER SECOND dexamethaso 2017-0 No Route: IV, Memoria ne (ANES) 04-13 Drug form: l 21:26: INJ, ONCE, Stop date: 04/13/17 15:26:00 BAKER SECOND famotidine 2017-0 No Route: IV, M emoria (ANES) - Drug form: l 21:26: INJ, ONCE, Stop date: 04/13/17 15:26:00 BAKER SECOND propofol 2017-0 No Route: IV, Mem oria (ANES) 04-13 Drug form: l 21:21: INJ, ONCE, Stop date: 04/13/17 15:21:00 BAKER SECOND lidocaine 2018-0 No Route: IV, Me moria (ANES) 04-13 Drug form: l 21:21: INJ, ONCE, Stop date: 04/13/17 15:21:00 BAKER SECOND propofol 2018-0 No Route: IV, Mem oria (ANES) 04-13 Drug form: l 21:21: INJ, ONCE, [place] 00 Stop date: 04/13/17 15:21:00 BAKER SECOND lidocaine 2018-0 No Route: IV, Me moria (ANES) 04-13 Drug form: l 21:21: INJ, ONCE, [place] 00 Stop date: 04/13/17 15:21:00 BAKER SECOND ceFAZolin 2017-0 No Route: IV, Me moria (ANES) 04-13 Drug form: l 21:16: INJ, ONCE, Stop date: 04/13/17 15:16:00 BAKER SECOND ceFAZolin 2017-0 No Route: IV, Me moria (ANES) 04-13 Drug form: l 21:16: INJ, ONCE, Stop date: 04/13/17 15:16:00 BAKER SECOND Ondansetron 2018-0 No 4 mg, Memor ia 04-13 Route: l 21:04: IVP, ONCE, Dosing Weight 93.182, kg, PRN Nausea & Vomiting, Start date: 04/13/17 15:04:00 BAKER SECOND Albuterol 2018-0 No 2.49 mg, King kristina 0.83 MG/ML 04-13 Route: l Inhalant 21:04: NEB, Indra Solution 00 Q20Min, Dosing Weight 93.182, kg, PRN Wheezing, Priority: STAT, Start date: 04/13/17 15:04:00 BAKER SECOND, Duration: 30 day, Stop date: 05/13/17 15:03:00 BAKER SECOND Metoprolol 2018-0 No 1 mg, Memori a 04-13 Route: l 21:04: IVP, [place] 00 Q5Min, Dosing Weight 93.182, kg, PRN Other -See Comment, Start date: 04/13/17 15:04:00 BAKER SECOND, Duration: 5 doses or times, Stop date: Limited # of times Morphine 2018-0 No 2 mg, Memoria 04-13 Route: l 21:04: IVP, [place] 00 Q5Min, Dosing Weight 93.182, kg, PRN Pain Score 4-6, Start date: 04/13/17 15:04:00 BAKER SECOND, Duration: 5 doses or times, Stop date: Limited # of times Acetaminoph 2018-0 No 1,000 mg, M priyariilia en 04-13 Route: PO, l 21:04: Drug form: [place] 00 TAB, ONCE, Dosing Weight 93.182, kg, PRN Pain Score 1-3, Start date: 04/13/17 15:04:00 BAKER SECOND Flumazenil 2018-0 No 0.2 mg, King kristina 04-13 Route: l 21:04: IVP, PRN, [place] 00 Dosing Weight 93.182, kg, PRN Benzodiaze pine Reversal, Initial dose, Start date: 04/13/17 15:04:00 BAKER SECOND, Duration: 30 day, Stop date: 05/13/17 15:03:00 BAKER SECOND Naloxone 2018-0 No 0.4 mg, Memori a 04-13 Route: l 21:04: IVP, Indra 00 Q2MIN, Dosing Weight 93.182, kg, PRN Narcotic Reversal, Start date: 04/13/17 15:04:00 BAKER SECOND, Duration: 8 doses or times, Stop date: Limited # of times Hydromorpho 2018-0 No 0.5 mg, Mem oria ne 04-13 Route: l 21:04: IVP, Indra 00 Q5Min, Dosing Weight 93.182, kg, PRN Pain Score 7-10, Start date: 04/13/17 15:04:00 BAKER SECOND, Duration: 4 doses or times, Stop date: Limited # of times Calcium 2018-0 No 1,000 mL, Memor ia Chloride 04-13 Rate: 125 l 0.0014 21:04: ml/hr, Indra MEQ/ML / 00 Infuse Potassium over: 8 Chloride hr, Route: 0.004 IV, Dosing MEQ/ML / Weight Sodium 93.182 kg, Chloride Total 0.103 Volume: MEQ/ML / 1,000, Sodium Start Lactate date: 0.028 04/13/17 MEQ/ML 15:04:00 Injectable BAKER SECOND, Solution Duration: 30 day, Stop date: 05/13/17 15:03:00 BAKER SECOND, 2.15, m2 Ondansetron 2018-0 No 4 mg, Memor ia 04-13 Route: l 21:04: IVP, ONCE, [place] 00 Dosing Weight 93.182, kg, PRN Nausea & Vomiting, Start date: 04/13/17 15:04:00 BAKER SECOND Albuterol 2018-0 No 2.49 mg, King kristina 0.83 MG/ML 04-13 Route: l Inhalant 21:04: NEB, [place] Solution 00 Q20Min, Dosing Weight 93.182, kg, PRN Wheezing, Priority: STAT, Start date: 04/13/17 15:04:00 BAKER SECOND, Duration: 30 day, Stop date: 05/13/17 15:03:00 BAKER SECOND Metoprolol 2018-0 No 1 mg, Memori a 04-13 Route: l 21:04: IVP, Indra 00 Q5Min, Dosing Weight 93.182, kg, PRN Other -See Comment, Start date: 04/13/17 15:04:00 BAKER SECOND, Duration: 5 doses or times, Stop date: Limited # of times Morphine 2018-0 No 2 mg, Memoria 04-13 Route: l 21:04: IVP, Indra 00 Q5Min, Dosing Weight 93.182, kg, PRN Pain Score 4-6, Start date: 04/13/17 15:04:00 BAKER SECOND, Duration: 5 doses or times, Stop date: Limited # of times Acetaminoph 2018-0 No 1,000 mg, M emoria en 04-13 Route: PO, l 21:04: Drug form: Indra 00 TAB, ONCE, Dosing Weight 93.182, kg, PRN Pain Score 1-3, Start date: 04/13/17 15:04:00 BAKER SECOND Flumazenil 2018-0 No 0.2 mg, King kristina 04-13 Route: l 21:04: IVP, PRN, Indra 00 Dosing Weight 93.182, kg, PRN Benzodiaze pine Reversal, Initial dose, Start date: 04/13/17 15:04:00 BAKER SECOND, Duration: 30 day, Stop date: 05/13/17 15:03:00 BAKER SECOND Naloxone 2018-0 No 0.4 mg, Memori a 04-13 Route: l 21:04: IVP, [place] 00 Q2MIN, Dosing Weight 93.182, kg, PRN Narcotic Reversal, Start date: 04/13/17 15:04:00 BAKER SECOND, Duration: 8 doses or times, Stop date: Limited # of times Hydromorpho 0 No 0.5 mg, Mem oria ne 04-13 Route: l 21:04: IVP, Indra 00 Q5Min, Dosing Weight 93.182, kg, PRN Pain Score 7-10, Start date: 04/13/17 15:04:00 BAKER SECOND, Duration: 4 doses or times, Stop date: Limited # of times Calcium 2017-0 No 1,000 mL, Memor ia Chloride 04-13 Rate: 125 l 0.0014 21:04: ml/hr, [place] MEQ/ML / 00 Infuse Potassium over: 8 Chloride hr, Route: 0.004 IV, Dosing MEQ/ML / Weight Sodium 93.182 kg, Chloride Total 0.103 Volume: MEQ/ML / 1,000, Sodium Start Lactate date: 0.028 04/13/17 MEQ/ML 15:04:00 Injectable BAKER SECOND, Solution Duration: 30 day, Stop date: 05/13/17 15:03:00 BAKER SECOND, 2.15, m2 fentaNYL No Route: IV, Mem oria (ANES) 04-13 Drug form: l 21:01: INJ, ONCE, [place] 00 Stop date: 04/13/17 15:01:00 BAKER SECOND midazolam 2017-0 No Route: IV, Me moria (ANES) 04-13 Drug form: l 21:01: SOLN, [place] 00 ONCE, Stop date: 04/13/17 15:01:00 BAKER SECOND fentaNYL 2017-0 No Route: IV, Mem oria (ANES) 04-13 Drug form: l 21:01: INJ, ONCE, Indra 00 Stop date: 04/13/17 15:01:00 BAKER SECOND midazolam 2017-0 No Route: IV, Me moria (ANES) 04-13 Drug form: l 21:01: SOLN, Indra 00 ONCE, Stop date: 04/13/17 15:01:00 BAKER SECOND acetaminoph 0 No Route: IV, Memoria en (ANES) 04-13 Drug form: l 10 mg 20:45: INJ, Start Oleksandr n 00 date: 04/13/17 14:45:00 BAKER SECOND, Stop date: 04/13/17 15:45:00 BAKER SECOND acetaminoph 0 No Route: IV, Memoria en (ANES) - Drug form: l 10 mg 20:45: INJ, Start Oleksandr n 00 date: 04/13/17 14:45:00 BAKER SECOND, Stop date: 04/13/17 15:45:00 BAKER SECOND Lactated 0 No Route: IV, Mem oria Ringers 1-19 Total l Injection 20:17: Volume: Salud nn IV (ANES) 00 1,000, 1000 mL Start date: 04/13/17 14:17:00 BAKER SECOND, Stop date: 04/13/17 15:17:00 BAKER SECOND Lactated 2017-0 No Route: IV, Mem oria Ringers 1-19 Total l Injection 20:17: Volume: Salud nn IV (ANES) 00 1,000, 1000 mL Start date: 04/13/17 14:17:00 BAKER SECOND, Stop date: 04/13/17 15:17:00 BAKER SECOND Ropivacaine 0 No Notes: King kristina hydrochlori 04-13 (Same as: l de 7.5 18:07: Naropin) [place]idge MG/ML 00 Injectable Solution Ropivacaine 0 No Notes: King kristina hydrochlori 04-13 (Same as: l de 7.5 18:07: Naropin) Indra MG/ML 00 Injectable Solution Acetaminoph 2016-03 Yes 1 - 2 tab, Memoria en 300 MG / 2-25 PO, Q4H, l Codeine 03:47: PRN Pain, Salud nn Phosphate 00 X 2 day, # 30 MG Oral 20 tab, 0 Tablet Refill(s) [Tylenol with Codeine #3] Acetaminoph 2016-03 Yes 1 - 2 tab, Memoria en 300 MG / 2-25 PO, Q4H, l Codeine 03:47: PRN Pain, Salud nn Phosphate 00 X 2 day, # 30 MG Oral 20 tab, 0 Tablet Refill(s) [Tylenol with Codeine #3] Propofol 2016-03 No 70 mg, Memoria 2-25 Route: IV, l 02:32: ONCE, Indra 00 Dosing Weight 95.5, kg, Start date: 03/18/17 20:32:00 BAKER SECOND, Stop date: 03/18/17 20:32:00 BAKER SECOND Propofol 2016-03 No 70 mg, Memoria 2-25 Route: IV, l 02:32: ONCE, Dosing Weight 95.5, kg, Start date: 03/18/17 20:32:00 BAKER SECOND, Stop date: 03/18/17 20:32:00 BAKER SECOND Propofol 2016-03 No 95.5 mg, Memor ia 2-25 Route: l 02:06: IVP, ONCE, Dosing Weight 95.5, kg, Priority: STAT, Start date: 03/18/17 20:06:00 BAKER SECOND, Stop date: 03/18/17 20:06:00 BAKER SECOND Propofol 2016-03 No 95.5 mg, Memor ia 2-25 Route: l 02:06: IVP, ONCE, Dosing Weight 95.5, kg, Priority: STAT, Start date: 03/18/17 20:06:00 BAKER SECOND, Stop date: 03/18/17 20:06:00 BAKER SECOND Zofran 2016-03 No Notes: Memoria 2-25 (Same as: l 01:02: Zofran) Indra 00 MEDICATION WASTE Product Size: 4 mg Product Wasted: ___ mg Zofran 2016-03 No Notes: Memoria 2-25 (Same as: l 01:02: Zofran) Indra 00 MEDICATION WASTE Product Size: 4 mg Product Wasted: ___ mg Morphine 2016-03 No Notes: Memoria 2-25 (Same l 01:01: as:MORPhin e Sulfate) Morphine 2016-03 No Notes: Memoria 2-25 (Same l 01:01: as:MORPhin e Sulfate) oxyCODONE 5 2016-03 Yes 5 mg = 1 Me moria mg oral 1-04 tab, PO, l tablet 16:15: Q4H, PRN Pain Score 4-6, X 14 day, # 40 tab, 0 Refill(s), given to patient acetaminoph 2016-03 Yes 650 mg = 2 Memoria en 325 mg 1-04 tab, PO, l oral tablet 16:15: Q4H, X 14 H erm day, # 90 tab, 0 Refill(s), Pharmacy: [facility] oxyCODONE 5 2016-03 Yes 5 mg = [...] day, # 90 tab, 0 Refill(s), Pharmacy: [facility] Toprol-XL 2016-03 No Notes: Memori a 25 mg oral 1-04 (Same as: l tablet, 14:00: Toprol XL) Herm greer extended 00 Do Not release Crush Toprol-XL 2016-03 No Notes: Memori a 25 mg oral 1-04 (Same as: l tablet, 14:00: Toprol XL) Herm greer extended 00 Do Not release Crush Protonix 2016-03 No Notes: Memoria 1-04 Tablet l 12:30: should not [place] 00 be chewed or crushed. (Same as: Protonix) Protonix 2016-03 No Notes: Memoria 1-04 Tablet l 12:30: should not Indra 00 be chewed or crushed. (Same as: Protonix) levothyroxi 2016-03 No Notes: King kristina ne 1-04 Take 1 l 11:30: hour Indra 00 before or 2 hours after meal; Enteral feeds may interefere with the absorption of this medication .(Same as:Levothr oid, Synthroid) levothyroxi 2016-03 No Notes: King kristina ne 1-04 Take 1 l 11:30: hour [place] 00 before or 2 hours after meal; Enteral feeds may interefere with the absorption of this medication .(Same as:Levothr oid, Synthroid) ketOROLAC 2016-03 No 4 days Memor ia 15 mg/mL - l injectable 06:58: MEDICATION H ermann solution 00 WASTE Product Size: 30 mg Product Wasted: 15 mg ketOROLAC 2016-03 No 4 days Memor ia 15 mg/mL 04 l injectable 06:58: MEDICATION H ermann solution 00 WASTE Product Size: 30 mg Product Wasted: 15 mg simvastatin 2016-03 No Notes: King kristina 1-04 (Same as: l 02:00: Zocor) [place] melatonin 2016-03 No Notes: Memori a 1-04 (Same as: l 02:00: Melatonin) Indra simvastatin 2016-03 No Notes: King kristina 1-04 (Same as: l 02:00: Zocor) [place] melatonin 2016-03 No Notes: Memori a 1-04 (Same as: l 02:00: Melatonin) Indra albuterol 2016-03 No Notes: SEE Me moria 03-28 RT l 23:12: DOCUMENTAT [place] 00 ION (Same as: Proventil) albuterol 2016-03 No Notes: SEE Me moria 03-28 RT l 23:12: DOCUMENTAT [place] 00 ION (Same as: Proventil) ceFAZolin 2016-03 No Notes: Memori a (SCIP) 03-28 Same as: l 23:00: Ancef [place] ceFAZolin 2016-03 No Notes: Memori a (SCIP) 03-28 Same as: l 23:00: Ancef [place] 00 Flomax 2016-03 No Notes: Memoria 03-28 (Same As: l 22:00: Flomax) Indra 00 "Do Not Crush" rasagiline 2016-03 No Notes: Memor ia 03-28 Same as l 22:00: Azilect Indra 00 Non Formulary Item docusate 2016-03 No Notes: Memoria sodium 100 03-28 (Same as: l mg oral 22:00: Colace) Indra capsule (Do Not Crush) NexIUM 2016-03 No 40 mg, Memoria 03-28 Route: PO, l 22:00: Drug form: [place] 00 ECCAP, BID, Dosing Weight 96.619, kg, Start date: 01/26/17 17:00:00 CDT, Duration: 30 day, Stop date: 02/25/17 9:00:00 BAKER [employer]OND ProAir HFA 2016-03 No Route: PO, M emoria 90 mcg/inh 03-28 Drug Form: l inhalation 22:00: AERO/A, Herm greer aerosol 00 Dosing with Weight adapter 96.619, kg, BID, Start date: 01/26/17 17:00:00 CDT, Duration: 30 day, Stop date: 02/25/17 9:00:00 B[employer]ER [employer]OND Flomax 2016-03 No Notes: Memoria 1-03 (Same As: l 22:00: Flomax) Indra 00 "Do Not Crush" rasagiline 2016-03 No Notes: Memor ia - Same as l 22:00: Azilect [place] 00 Non Formulary Item docusate 2016-03 No Notes: Memoria sodium 100 - (Same as: l mg oral 22:00: Colace) [place] capsule (Do Not Crush) NexIUM 2016-03 No 40 mg, Memoria 03-28 Route: PO, l 22:00: Drug form: [place] 00 ECCAP, BID, Dosing Weight 96.619, kg, Start date: 01/26/17 17:00:00 CDT, Duration: 30 day, Stop date: 02/25/17 9:00:00 [employer]ER [employer]OND ProAir HFA 2016-03 No Route: PO, M emoria 90 mcg/inh 03-28 Drug Form: l inhalation 22:00: AERO/A, Herm greer aerosol 00 Dosing with Weight adapter 96.619, kg, BID, Start date: 01/26/17 17:00:00 CDT, Duration: 30 day, Stop date: 02/25/17 9:00:00 [employer]OND cloNIDine 2016-03 No Notes: Memori a 0.1 mg oral 1-03 (Same As: l tablet 21:07: Catapres) Oleksandr n 00 Vasotec 2016-03 No Notes: Memoria 1-03 (Same as: l 21:07: Vasotec-IV Indra 00 ) cloNIDine 2016-03 No Notes: Memori a 0.1 mg oral 1-03 (Same As: l tablet 21:07: Catapres) Oleksandr n 00 Vasotec 2016-03 No Notes: Memoria 1-03 (Same as: l 21:07: Vasotec-IV Indra 00 ) albuterol 2016-03 No Notes: SEE Me moria 0.083% 1-03 RT l inhalation 21:06: DOCUMENTAT H ermann solution 00 ION (Same as: Proventil) albuterol 2016-03 No Notes: SEE Me moria 0.083% 1-03 RT l inhalation 21:06: DOCUMENTAT H ermann solution 00 ION (Same as: Proventil) acetaminoph 2016-03 No Notes: Do M emoria en 03-28 not exceed l 18:44: 4 gm/day. [place] (Same as: Tylenol) acetaminoph 2016-03 No Notes: Do M emoria en 03-28 not exceed l 18:44: 4 gm/day. Indra (Same as: Tylenol) ropivacaine 2016-03 No 400 mL, 8 M emoria 400 mL 1-03 ml/hr, l 17:18: Route: NERVE BLOCK, Dosing Weight 96.619, kg, ONCE, Start date: 01/26/17 12:18:00 CDT, Stop date: 01/26/17 12:18:00 CDT ropivacaine 2016-03 No 400 mL, 8 M emoria 400 mL 1-03 ml/hr, l 17:18: Route: NERVE BLOCK, Dosing Weight 96.619, kg, ONCE, Start date: 01/26/17 12:18:00 CDT, Stop date: 01/26/17 12:18:00 CDT ANES 2016-03 No 4 mg, Memoria ondansetron 03-28 Route: l 17:12: IVP, ONCE, Dosing Weight 96.619, kg, PRN Nausea & Vomiting, Start date: 01/26/17 12:12:00 CDT ANES 2016-03 No 0.2 mg, Memoria flumazenil 03-28 Route: l 17:12: IVP, PRN, Dosing Weight 96.619, kg, PRN Benzodiaze pine Reversal, Initial dose, Start date: 01/26/17 12:12:00 CDT, Duration: 30 day, Stop date: 02/25/17 11:11:00 [employer] ANES 2016-03 No 0.4 mg, Memoria naloxone 03-28 Route: l 17:12: IVP, Q2MIN, Dosing Weight 96.619, kg, PRN Narcotic Reversal, Start date: 01/26/17 12:12:00 CDT, Duration: 8 doses or times, Stop date: Limited # of times ANES 2016-03 No 2.49 mg, Memoria albuterol 1-03 Route: l 0.083% 17:12: NEB, Indra inhalation 00 Q20Min, solution Dosing Weight 96.619, kg, PRN Wheezing, Priority: STAT, Start date: 01/26/17 12:12:00 CDT, Duration: 30 day, Stop date: 02/25/17 11:11:00 [employer] ANES 2016-03 No 4 mg, Memoria ondansetron 03-28 Route: l 17:12: IVP, ONCE, Indra 00 Dosing Weight 96.619, kg, PRN Nausea & Vomiting, Start date: 01/26/17 12:12:00 CDT ANES 2016-03 No 0.2 mg, Memoria flumazenil 03-28 Route: l 17:12: IVP, PRN, [place] 00 Dosing Weight 96.619, kg, PRN Benzodiaze pine Reversal, Initial dose, Start date: 01/26/17 12:12:00 CDT, Duration: 30 day, Stop date: 02/25/17 11:11:00 [employer]OND ANES 2016-03 No 0.4 mg, Memoria naloxone 03-28 Route: l 17:12: IVP, [place] 00 Q2MIN, Dosing Weight 96.619, kg, PRN Narcotic Reversal, Start date: 01/26/17 12:12:00 CDT, Duration: 8 doses or times, Stop date: Limited # of times ANES 2016-03 No 2.49 mg, Memoria albuterol 03-28 Route: l 0.083% 17:12: NEB, [place] inhalation 00 Q20Min, solution Dosing Weight 96.619, kg, PRN Wheezing, Priority: STAT, Start date: 01/26/17 12:12:00 CDT, Duration: 30 day, Stop date: 02/25/17 11:11:00 [employer] [employer]OND albuterol 2016-03 No Route: IV, Me moria (ANES) 03-28 Drug form: l 17:03: AERO/A, Indra 00 ONCE, Stop date: 01/26/17 12:03:00 CDT albuterol 2016-03 No Route: IV, Me moria (ANES) 03-28 Drug form: l 17:03: AERO/A, [place] 00 ONCE, Stop date: 01/26/17 12:03:00 CDT glycopyrrol 2016-03 No Route: IV, Memoria ate (ANES) 03-28 Drug form: l 16:50: INJ, ONCE, Stop date: 01/26/17 11:50:00 CDT neostigmine 2016-03 No Route: IV, Memoria (ANES) 03-28 Drug form: l 16:50: INJ, ONCE, Stop date: 01/26/17 11:50:00 CDT glycopyrrol 2016-03 No Route: IV, Memoria ate (ANES) 03-28 Drug form: l 16:50: INJ, ONCE, Stop date: 01/26/17 11:50:00 CDT neostigmine 2016-03 No Route: IV, Memoria (ANES) 03-28 Drug form: l 16:50: INJ, ONCE, Stop date: 01/26/17 11:50:00 CDT oxyCODONE 5 2016-03 No Notes: King kristina mg oral 03-28 (Same as: l tablet 16:32: Roxicodone [place]ud ) oxyCODONE 5 2016-03 No Notes: King kristina mg oral - (Same as: l tablet 16:32: Roxicodone Salud ) ondansetron 2016-03 No Route: IV, Memoria (ANES) 03-28 Drug form: l 16:30: INJ, ONCE, Stop date: 01/26/17 11:30:00 CDT famotidine 2016-03 No Route: IV, M emoria (ANES) 03-28 Drug form: l 16:30: INJ, ONCE, Stop date: 01/26/17 11:30:00 CDT ondansetron 2016-03 No Route: IV, Memoria (ANES) 03-28 Drug form: l 16:30: INJ, ONCE, Stop date: 01/26/17 11:30:00 CDT famotidine 2016-03 No Route: IV, M emoria (ANES) 03-28 Drug form: l 16:30: INJ, ONCE, Stop date: 01/26/17 11:30:00 CDT ondansetron 2016-03 No Notes: King kristina -03 (Same as: l 16:29: Zofran) Indra 00 MEDICATION WASTE Product Size: 4 mg Product Wasted: ___ mg Lactated 2016-03 No 1,000 mL, King kristina Ringers -03 Rate: 100 l 1,000 mL 16:29: ml/hr, Indra 00 Infuse over: 10 hr, Route: IV, Dosing Weight 96.619 kg, Total Volume: 1,000, Start date: 01/26/17 11:29:00 CDT, Duration: 30 day, Stop date: 02/25/17 11:28:00 BAKER SECOND ondansetron 2016-03 No Notes: King kristina 1-03 (Same as: l 16:29: Zofran) [place] 00 MEDICATION WASTE Product Size: 4 mg Product Wasted: ___ mg Lactated 2016-03 No 1,000 mL, King kristina Ringers 03-28 Rate: 100 l 1,000 mL 16:29: ml/hr, [place] 00 Infuse over: 10 hr, Route: IV, Dosing Weight 96.619 kg, Total Volume: 1,000, Start date: 01/26/17 11:29:00 CDT, Duration: 30 day, Stop date: 02/25/17 11:28:00 B[facility]ER [employer]OND lidocaine 2016-03 No Route: IV, Me moria (ANES) 03-28 Drug form: l 16:25: INJ, ONCE, Stop date: 01/26/17 11:25:00 CDT fentaNYL 2016-03 No Route: IV, Mem oria (ANES) 03-28 Drug form: l 16:25: INJ, ONCE, Stop date: 01/26/17 11:25:00 CDT rocuronium 2016-03 No Route: IV, M emoria (ANES) - Drug form: l 16:25: INJ, ONCE, Stop date: 01/26/17 11:25:00 CDT propofol 2016-03 No Route: IV, Mem oria (ANES) 03-28 Drug form: l 16:25: INJ, ONCE, Stop date: 01/26/17 11:25:00 CDT lidocaine 2016-03 No Route: IV, Me moria [...] INJ, ONCE, Stop date: 01/26/17 11:15:00 CDT succinylcho 2016-03 No Route: IV, Memoria line (ANES) 03-28 Drug form: l 16:15: INJ, ONCE, Stop date: 01/26/17 11:15:00 CDT ropivacaine 2016-03 No Dosing: Mem oria 250 mL 1-03 8cc/hr, l 16:01: Route: Indra NERVE BLOCK, Start date: 01/26/17 11:01:00 CDT 250 mL, Dosing Weight 96.619, kg, Duration: 30 day, Stop date: 02/25/17 10:00:00 B[employer] [employer]OND ropivacaine 2016-03 No Dosing: Mem oria 250 mL 1-03 8cc/hr, l 16:01: Route: [place] 00 NERVE BLOCK, Start date: 01/26/17 11:01:00 CDT 250 mL, Dosing Weight 96.619, kg, Duration: 30 day, Stop date: 02/25/17 10:00:00 BAKER [employer]OND ANES 2016-03 No 12.5 mg, Memoria meperidine 03-28 Route: l 15:59: IVP, [place] 00 Q30Min, Dosing Weight 96.619, kg, PRN Other -See Comment, For shivering, Start date: 01/26/17 10:59:00 CDT, Duration: 2 doses or times, Stop date: Limited # of times ANES 2016-03 No 4 mg, Memoria ondansetron 03-28 Route: l 15:59: IVP, ONCE, Indra 00 Dosing Weight 96.619, kg, PRN Nausea & Vomiting, Start date: 01/26/17 10:59:00 CDT ANES 2016-03 No 6.25 mg, Memoria promethazin 03-28 Route: l e 15:59: IVPB, [place] 00 ONCE, Dosing Weight 96.619, kg, PRN Nausea & Vomiting, Start date: 01/26/17 10:59:00 CDT ANE 2016-03 No 2.49 mg, Memoria albuterol 03-28 Route: l 0.083% 15:59: NEB, [place] inhalation 00 Q20Min, solution Dosing Weight 96.619, kg, PRN Wheezing, Priority: STAT, Start date: 01/26/17 10:59:00 CDT, Duration: 30 day, Stop date: 02/25/17 9:58:00 [facility]ER SECOND [facility] 2016-03 No 0.2 mg, Memoria flumazenil 03-28 Route: l 15:59: IVP, PRN, Indra 00 Dosing Weight 96.619, kg, PRN Benzodiaze pine Reversal, Initial dose, Start date: 01/26/17 10:59:00 CDT, Duration: 30 day, Stop date: 02/25/17 9:58:00 B[facility]ER [employer]OND [facility] 2016-03 No 0.5 mg, Memoria HYDROmorpho 03-28 Route: l ne 15:59: IVP, [place] 00 Q5Min, Dosing Weight 96.619, kg, PRN Pain Score 7-10, Start date: 01/26/17 10:59:00 CDT, Duration: 4 doses or times, Stop date: Limited # of times [facility] 2016-03 No 10 mg, Memoria labetalol 03-28 Route: l 15:59: IVP, Indra 00 Q5Min, Dosing Weight 96.619, kg, PRN Elevated BP, Start date: 01/26/17 10:59:00 CDT, Duration: 5 doses or times, Stop date: Limited # of times ANES 2016-03 No 0.4 mg, Memoria naloxone 03-28 Route: l 15:59: IVP, Indra 00 Q2MIN, Dosing Weight 96.619, kg, PRN Narcotic Reversal, Start date: 01/26/17 10:59:00 CDT, Duration: 8 doses or times, Stop date: Limited # of times ANES 2016-03 No 12.5 mg, Memoria meperidine 03-28 Route: l 15:59: IVP, Indra 00 Q30Min, Dosing Weight 96.619, kg, PRN Other -See Comment, For shivering, Start date: 01/26/17 10:59:00 CDT, Duration: 2 doses or times, Stop date: Limited # of times ANES 2016-03 No 4 mg, Memoria ondansetron 03-28 Route: l 15:59: IVP, ONCE, Indra 00 Dosing Weight 96.619, kg, PRN Nausea & Vomiting, Start date: 01/26/17 10:59:00 CDT ANES 2016-03 No 6.25 mg, Memoria promethazin 03-28 Route: l e 15:59: IVPB, Indra 00 ONCE, Dosing Weight 96.619, kg, PRN Nausea & Vomiting, Start date: 01/26/17 10:59:00 CDT ANES 2016-03 No 2.49 mg, Memoria albuterol 03-28 Route: l 0.083% 15:59: NEB, Indra inhalation 00 Q20Min, solution Dosing Weight 96.619, kg, PRN Wheezing, Priority: STAT, Start date: 01/26/17 10:59:00 CDT, Duration: 30 day, Stop date: 02/25/17 9:58:00 BAKER SECOND ANES 2016-03 No 0.2 mg, Memoria flumazenil 03-28 Route: l 15:59: IVP, PRN, [place] 00 Dosing Weight 96.619, kg, PRN Benzodiaze pine Reversal, Initial dose, Start date: 01/26/17 10:59:00 CDT, Duration: 30 day, Stop date: 02/25/17 9:58:00 BAKER SECOND ANES 2016-03 No 0.5 mg, Memoria HYDROmorpho 03-28 Route: l ne 15:59: IVP, Indra 00 Q5Min, Dosing Weight 96.619, kg, PRN Pain Score 7-10, Start date: 01/26/17 10:59:00 CDT, Duration: 4 doses or times, Stop date: Limited # of times ANES 2016-03 No 10 mg, Memoria labetalol 03-28 Route: l 15:59: IVP, Indra 00 Q5Min, Dosing Weight 96.619, kg, PRN Elevated BP, Start date: 01/26/17 10:59:00 CDT, Duration: 5 doses or times, Stop date: Limited # of times ANES 2016-03 No 0.4 mg, Memoria naloxone [...] 10:40:00 CDT, Stop date: 01/26/17 11:40:00 CDT acetaminoph 2016-03 No Route: IV, Memoria en (ANES) 03-28 Drug form: l (ANES) 15:40: INJ, Start date: 01/26/17 10:40:00 CDT, Stop date: 01/26/17 11:40:00 CDT phenylephri 2016-03 No Route: IV, Memoria ne (ANES) 03-28 Drug form: l 15:32: INJ, ONCE, Stop date: 01/26/17 10:32:00 CDT ePHEDrine 2016-03 No Route: IV, Me moria (ANES) 03-28 Drug form: l 15:32: INJ, ONCE, Stop date: 01/26/17 10:32:00 CDT phenylephri 2016-03 No Route: IV, Memoria ne (ANES) 03-28 Drug form: l 15:32: INJ, ONCE, Indra 00 Stop date: 01/26/17 10:32:00 CDT ePHEDrine 2016-03 No Route: IV, moria (ANES) 03-28 Drug form: l 15:32: INJ, ONCE, [place] Stop date: 01/26/17 10:32:00 CDT ceFAZolin 2016-03 No Route: IV, moria (ANES) 03-28 Drug form: l (ANES) 15:00: INJ, Start Salud nn date: 01/26/17 10:00:00 CDT, Stop date: 01/26/17 11:00:00 CDT ceFAZolin 2016-03 No Route: IV, moria (ANES) 03-28 Drug form: l (ANES) 15:00: INJ, Start Salud nn date: 01/26/17 10:00:00 CDT, Stop date: 01/26/17 11:00:00 CDT LR 1000 mL 2016-03 No Route: IV, M emoria INJ (ANES) 03-28 Total l 14:53: Volume: [place] 00 1,000, Start date: 01/26/17 9:53:00 CDT, Stop date: 01/26/17 10:53:00 CDT LR 1000 mL 2016-03 No Route: IV, M emoria INJ (ANES) 03-28 Total l 14:53: Volume: Indra 00 1,000, Start date: 01/26/17 9:53:00 CDT, Stop date: 01/26/17 10:53:00 CDT ceFAZolin 2 2016-03 No Notes: King kristina gm + -03 (Same As: l sterile 05:00: Ancef, [place] water 20 mL 00 Kefzol) MEDICATION WASTE Product Size: 1000 mg Product Wasted: ___ mg ceFAZolin 2 2016-03 No Notes: King kristina gm + - (Same As: l sterile 05:00: Ancef, [place] water 20 mL 00 Kefzol) MEDICATION WASTE Product Size: 1000 mg Product Wasted: ___ mg Asmanex HFA 2016-03 Yes See Memori a 0-30 Instructio l 17:59: ns, Indra 00 INHALATION BID, 0 Refill(s) Asmanex HFA 2016-03 Yes See Memori a 0-30 Instructio l 17:59: ns, [place] 00 INHALATION BID, 0 Refill(s) ProAir HFA [...] 17:47: Bedtime, 0 Herm greer 00 Refill(s) ProAir HFA 2016-03 Yes 1 - [...] 0-30 PO, QPM, 0 l 17:46: Refill(s) Indra 00 simvastatin 2016-03 Yes 40 mg = 1 M emoria 40 mg oral 0-30 tab, PO, l tablet 17:46: Bedtime, # Salud nn 00 90 tab, 1 Refill(s) rasagiline 2016-03 Yes 1 mg = 1 Mem oria 1 mg oral 0-30 tab, PO, l tablet 17:46: QPM, # 30 Oleksandr n 00 tab, 6 Refill(s) CoQ10 2016-03 Yes 200 mg, Memoria 0-30 PO, QPM, 0 l 17:46: Refill(s) Indra 00 simvastatin 2016-03 Yes 40 mg = 1 M emoria 40 mg oral 0-30 tab, PO, l tablet 17:46: Bedtime, # Salud nn 00 90 tab, 1 Refill(s) acetaminoph 2016-03 Yes Q4H Take by [facility] (TYLENOL) 00:00: every 4 Hospi ta 650 MG 8 hr 00 (four) l tablet hours. acetaminoph 2016-03 Yes Q4H Take by [facility] (TYLENOL) 00:00: every 4 Hospi ta 650 MG 8 hr 00 (four) l tablet hours. ergocalcife Yes Take by [facility] (VITAMIN 00:00: [facility]osp[facility] D[facility]) 50,000 00 l unit capsule ergocalcife Yes Take by [facility] (VITAMIN 00:00: [facility]ospita D2) 50,000 00 l unit capsule Esomeprazol 2015-03 Yes 40 mg [...] Insomnia, # 30 tab, 1 Refill(s), Pharmacy: [facility] Ventolin 2015-03 Yes 2 puff, Memori a HFA 90 2-29 INHALER, l mcg/inh 16:18: Q6H, PRN Oleksandr n inhalation 00 wheezing, aerosol coughing, with or adapter shortness of breath, Dispense quantity sufficient for 100 uses., # 1 ea, 1 Refill(s), Pharmacy: [facility] multivitami 2015-03 Yes PO, Daily, Memoria n with 2-29 0 l minerals 16:18: Refill(s) Herm greer 00 psyllium 2016-1 Yes 1 pkt, PO, Mem oria 3.4 g/5.8 g 2-29 Daily, 0 l oral powder 16:18: Refill(s) H ermann 00 senna 8.6 2015-03 Yes 17.2 mg = Mem oria mg oral -29 2 tab, PO, l tablet 16:18: QNoon, 0 Indra 00 Refill(s) Esomeprazol 2015-03 Yes 40 mg = 1 M emoria e 40 MG cap, PO, l Enteric 16:18: BID, # 1 Oleksandr n Coated 00 caplet, 0 Capsule Refill(s), [Nexium] other Trazodone 2015-03 Yes 100 mg = 1 Me moria Hydrochlori 29 tab, PO, l de 100 MG 16:18: Bedtime, Herm greer Oral Tablet 00 PRN Insomnia, # 30 tab, 1 Refill(s), Pharmacy: [facility] Ventolin 2015-03 Yes 2 puff, Memori a HFA 90 INHALER, l mcg/inh 16:18: Q6H, PRN Oleksandr n inhalation 00 wheezing, aerosol coughing, with or adapter shortness of breath, Dispense quantity sufficient for 100 uses., # 1 ea, 1 Refill(s), Pharmacy: [facility] multivitami 2015-03 Yes PO, Daily, Memoria n with 0 l minerals 16:18: Refill(s) Herm greer 00 psyllium 2015-03 Yes 1 pkt, PO, Mem oria 3.4 g/5.8 g -29 Daily, 0 l oral powder 16:18: Refill(s) H ermann 00 senna 8.6 2015-03 Yes 17.2 mg = Mem oria mg oral 29 2 tab, PO, l tablet 16:18: QNoon, 0 [place] 00 Refill(s) Thyroxine 2015-03 No Notes: Memori a 2-29 Take 1 l 12:30: hour Indra 00 before or 2 hours after meal; Enteral feeds may interefere with the absorption of this medication .(Same as:Levothr oid, Synthroid) Thyroxine 2015-03 No Notes: Memori a 2-29 Take 1 l 12:30: hour [place] 00 before or 2 hours after meal; Enteral feeds may interefere with the absorption of this medication .(Same as:Levothr oid, Synthroid) Maalox 2015-03 No Notes: Memoria Advanced 2-28 (aluminum l Regular 15:19: hydroxide- Herm greer Strength 00 magnesium SUSP hyd-simeth icone 200-200-20 mg/5ml 30 ml ud IMTIAZ) Maalox 2015-03 No Notes: Memoria Advanced 2-28 (aluminum l Regular 15:19: hydroxide- Herm greer Strength 00 magnesium SUSP hyd-simeth icone 200-200-20 mg/5ml 30 ml ud IMTIAZ) Acetaminoph 2015-03 No Notes: Do M emoria en 2-26 not exceed l 00:00: 4 gm/day. [place] 00 (Same as: Tylenol) Acetaminoph 2015-03 No Notes: Do M emoria en 2-26 not exceed l 00:00: 4 gm/day. Indra 00 (Same as: Tylenol) Tylenol 2015-03 No Notes: Do Memor ia 2-25 not exceed l 22:06: 4 gm/day. Indra 00 (Same as: Tylenol) Tylenol 2015-03 No Notes: Do Memor ia 2-25 not exceed l 22:06: 4 gm/day. Indra 00 (Same as: Tylenol) senna 8.6 2015-03 No Notes: Memori a mg oral 2-25 (Same as: l tablet 18:00: Senokot) Indra 00 senna 8.6 2015-03 No Notes: Memori a mg oral 2-25 (Same as: l tablet 18:00: Senokot) Indra 00 Metamucil 2015-03 No Notes: Memori a 2-25 (Same as: l 14:30: Konsyl) Indra 00 Mix in 8 oz liquid with meal. aspirin 81 2015-03 No Notes: Do Me moria mg tablet, 2-25 not crush l enteric 14:30: or chew. Oleksandr n coated 00 (Same As: Ecotrin) Metamucil 2015-03 No Notes: Memori a 2-25 (Same as: l 14:30: Konsyl) [place] 00 Mix in 8 oz liquid with meal. aspirin 81 2015-03 No Notes: Do Me moria mg tablet, 2-25 not crush l enteric 14:30: or chew. Oleksandr n coated 00 (Same As: Ecotrin) Ceftriaxone 2015-03 No Notes: King kristina 2-24 (Same As: l 18:00: Rocephin). Use with 100 mL NS and infuse over 30 min MEDICATION WASTE Product Size: 1000 mg Product Wasted: _0__ mg Enoxaparin 2015-03 No Notes: Memor ia 2-24 (Same as: l 18:00: Lovenox) Ceftriaxone 2015-03 No Notes: King kristina 2-24 (Same As: l 18:00: Rocephin). Use with 100 mL NS and infuse over 30 min MEDICATION WASTE Product Size: 1000 mg Product Wasted: _0__ mg Enoxaparin 2015-03 No Notes: Memor ia 2-24 (Same as: l 18:00: Lovenox) Thiamine 2015-03 No Notes: Memoria 2-24 (Same As: l 14:30: Vitamin B1) Flomax 2015-03 No Notes: Memoria 2-24 (Same As: l 14:30: Flomax) "Do Not Crush" POLYETHYLEN 2015-03 No Notes: King kristina E GLYCOL 2-24 Dissolve l 3350 14:30: in 8 oz of water or juice. (Same as: Miralax) M.V.I. 2015-03 No 1 tab, Memoria Adult 2-24 Route: PO, l 14:30: Dosing Weight 87.136, kg, Daily, Start date: 03/18/16 8:30:00 BAKER SECOND, Duration: 30 day, Stop date: 04/16/16 8:30:00 BAKER SECOND Thyroxine 2015-03 No Notes: Memori a 2-24 Take 1 l 14:30: hour before or 2 hours after meal; Enteral feeds may interefere with the absorption of this medication .(Same as:Levothr oid, Synthroid) Folic Acid 2015-03 No Notes: Memor ia 2-24 (Same as: l 14:30: Folvite) Cymbalta 2015-03 No Notes: Memoria 2-24 (Same as: l 14:30: Cymbalta) (Do Not Crush) Vitamin B 2015-03 No Notes: Memori a 12 2-24 (Same As: l 14:30: Vitamin Indra 00 B-12) Aspirin 2015-03 No Notes: Memoria 2-24 Take with l 14:30: food. Indra ascorbic 2015-03 No Notes: Memoria acid 2-24 (Same as: l 14:30: Vitamin C) [place] 00 multivitami 2015-03 No Notes: King kristina n with 2-24 (Same l minerals 14:30: as:Thera-M Her mcgrath 00 , Theragran- M) WASTE: F/P - Black; E - Municipal Trash Bin Give with food. Thiamine 2015-03 No Notes: Memoria 2-24 (Same As: l 14:30: Vitamin Indra 00 B1) Flomax 2015-03 No Notes: Memoria 2-24 (Same As: l 14:30: Flomax) "Do Not Crush" POLYETHYLEN 2015-03 No Notes: King kristina E GLYCOL 2-24 Dissolve l 3350 14:30: in 8 oz of water or juice. (Same as: Miralax) M.V.I. 2015-03 No 1 tab, Memoria Adult 2-24 Route: PO, l 14:30: Dosing Weight 87.136, kg, Daily, Start date: 03/18/16 8:30:00 BAKER SECOND, Duration: 30 day, Stop date: 04/16/16 8:30:00 BAKER SECOND Thyroxine 2015-03 No Notes: Memori a 2-24 Take 1 l 14:30: hour [place] 00 before or 2 hours after meal; Enteral feeds may interefere with the absorption of this medication .(Same as:Levothr oid, Synthroid) Folic Acid 2015-03 No Notes: Memor ia 2-24 (Same as: l 14:30: Folvite) Indra Cymbalta 2015-03 No Notes: Memoria 2-24 (Same as: l 14:30: Cymbalta) [place] (Do Not Crush) Vitamin B 2015-03 No Notes: Memori a 12 2-24 (Same As: l 14:30: Vitamin Indra 00 B-12) Aspirin 2015-03 No Notes: Memoria [...] e 2-24 Tablet l 03:00: should not Indra 00 be chewed or crushed. (Same as: Protonix) Clotrimazol 2015-03 No Notes: For Memoria e 10 MG/ML 2-24 external l Topical 03:00: use only. Salud nn Cream 00 (Same As: Lotrimin AF, Mycelex) atorvastati 2015-03 No Notes: King kristina n 2-24 (Same as: l 03:00: Lipitor) Trazodone 2015-03 No Notes: Memori a Hydrochlori 2-24 (Same As: l de 100 MG 03:00: Desyrel) Herm greer Oral Tablet 00 pantoprazol 2015-03 No Notes: King kristina e 2-24 Tablet l 03:00: should not [place] 00 be chewed or crushed. (Same as: [...] kg, PRN Seizure, Start date: 03/17/16 19:09:00 BAKER SECOND, Duration: 30 day, Stop date: 04/16/16 19:08:00 BAKER SECOND Midazolam 2015-03 No 40 kg Memori a 2-24 l 01:09: Indra 00 Bisacodyl 2015-03 No Notes: Memori a 2-24 (Same As: l 01:09: Dulcolax, [place] 00 Bisco-Lax) Albuterol 2015-03 No Notes: SEE Me moria 0.83 MG/ML 2-24 RT l Inhalant 01:09: DOCUMENTAT Her mcgrath Solution 00 ION (Same as: Proventil) Acetaminoph 2015-03 No Notes: Do M emoria en 2-24 not exceed l 01:09: 4 gm/day. [place] 00 (Same as: Tylenol) Levetiracet 2015-03 No 1,500 mg, M emoria am 2-24 Route: IV, l 01:09: PRN, Dosing Weight 87.136, kg, PRN Seizure, Start date: 03/17/16 19:09:00 BAKER SECOND, Duration: 30 day, Stop date: 04/16/16 19:08:00 BAKER SECOND Midazolam 2015-03 No 40 kg Memori a 2-24 l 01:09: Bisacodyl 2015-03 No Notes: Memori a 2-24 (Same As: l 01:09: Dulcolax, [place] 00 Bisco-Lax) Albuterol 2015-03 No Notes: SEE Me moria 0.83 MG/ML 2-24 RT l Inhalant 01:09: DOCUMENTAT Her mcgrath Solution 00 ION (Same as: Proventil) Trazodone 2015-03 Yes 100 mg = 1 Me moria Hydrochlori 2-23 tab, PO, l de 100 MG 22:07: Bedtime, 0 rm Oral Tablet 00 Refill(s) thiamine 2015-03 Yes 100 mg = 1 Mem oria 100 mg oral 2-23 tab, PO, l tablet 22:07: Daily, 0 Indra 00 Refill(s) POLYETHYLEN 2015-03 Yes PO, Daily, Memoria E GLYCOL 2-23 0 l 3350 22:07: Refill(s) Indra pantoprazol 2015-03 Yes 40 mg = 1 M emoria e 40 mg 2-23 tab, PO, l oral 22:07: BID, 0 [place] enteric 00 Refill(s) coated tablet Menthol 2015-03 Yes 1 appl, Memoria 0.0044 2-23 TOP, PRN, l MG/MG / 22:07: PRN Diaper Herm greer Zinc Oxide 00 Rash, 0.2 MG/MG Topical Dosing, 0 Ointment Refill(s) levalbutero 2015-03 Yes 0.63 mg = M emoria l 0.63 mg/3 2-23 3 mL, NEB, l mL 22:07: PRN, PRN [place] inhalation 00 Respirator solution y Protocol, 0 Refill(s) Folic Acid 2015-03 Yes 1 mg = 1 Mem oria 1 MG Oral 2-23 tab, PO, l Tablet 22:07: Daily, 0 [place] 00 Refill(s) enoxaparin 2015-03 Yes 40 mg = King kristina 40 mg/0.4 2-23 0.4 mL, l mL 22:07: SUB-Q, Indra subcutaneou 00 [id number], s solution 0 Refill(s) cyanocobala 2015-03 Yes 1,000 Memor ia min 1000 2-23 microgram l mcg 22:07: = 1 tab, Indra sublingual 00 PO, Daily, tablet 0 Refill(s) 168 HR 2015-03 Yes 1 patch, Memoria Clonidine 2-23 TOP, Q7D, l 0.88450 22:07: 0 [place] MG/HR 00 Refill(s) Transdermal Patch [Catapres-T TS-2] Clotrimazol 2015-03 Yes 1 appl, Mem oria e 10 MG/ML 2-23 TOP, BID, l Topical 22:07: 0 Indra Cream 00 Refill(s) cefTRIAXone 2015-03 Yes 2 gm, Memor ia 2 g 2-23 IVPB, l injection 22:07: [id number], 0 [place] 00 Refill(s) benzonatate 2015-03 Yes 200 mg = 2 Memoria 100 mg oral 2-23 cap, PO, l capsule 22:07: TID, 0 [place] 00 Refill(s) atorvastati 2015-03 Yes 80 mg = 2 M emoria n 40 mg 2-23 tab, PO, l oral tablet 22:07: Bedtime, 0 [place] 00 Refill(s) ascorbic 2015-03 Yes 500 mg = 1 Mem oria acid 500 mg 2-23 tab, CHEW, l oral tablet 22:07: Daily, 0 [place] 00 Refill(s) Aspirin 2015-03 Yes 325 mg = 1 King kristina 2-23 tab, PO, l 22:07: Daily, 0 [place] 00 Refill(s) acetaminoph 2015-03 Yes 1,000 mg = Memoria en 500 mg 2-23 2 tab, PO, l oral tablet 22:07: Q6H, PRN [place] 00 Pain Score 6-10, 0 Refill(s) Trazodone 2015-03 Yes 100 mg = 1 Me moria Hydrochlori 2-23 tab, PO, l de 100 MG 22:07: Bedtime, 0 [place] Oral Tablet 00 Refill(s) thiamine 2015-03 Yes 100 mg = 1 Mem oria 100 mg oral 2-23 tab, PO, l tablet 22:07: Daily, 0 Indra 00 Refill(s) POLYETHYLEN 2015-03 Yes PO, Daily, Memoria E GLYCOL 2-23 0 l 3350 22:07: Refill(s) Indra 00 pantoprazol 2015-03 Yes 40 mg = 1 M emoria e 40 mg 2-23 tab, PO, l oral 22:07: BID, 0 Indra enteric 00 Refill(s) coated tablet Menthol 2015-03 Yes 1 appl, Memoria 0.0044 2-23 TOP, PRN, l MG/MG / 22:07: PRN Diaper Herm greer Zinc Oxide 00 Rash, 0.2 MG/MG Topical Dosing, 0 Ointment Refill(s) levalbutero 2015-03 Yes 0.63 mg = M emoria l 0.63 mg/3 2-23 3 mL, NEB, l mL 22:07: PRN, PRN [place] inhalation 00 Respirator solution y Protocol, 0 Refill(s) Folic Acid 2015-03 Yes 1 mg = 1 Mem oria 1 MG Oral 2-23 tab, PO, l Tablet 22:07: Daily, 0 Indra 00 Refill(s) enoxaparin 2015-03 Yes 40 mg = King kristina 40 mg/0.4 2-23 0.4 mL, l mL 22:07: SUB-Q, Indra subcutaneou 00 [id number], s solution 0 Refill(s) cyanocobala 2015-03 Yes 1,000 Memor ia min 1000 2-23 microgram l mcg 22:07: = 1 tab, [place] sublingual 00 PO, Daily, tablet 0 Refill(s) 168 HR 2015-03 Yes 1 patch, Memoria Clonidine 2-23 TOP, Q7D, l 0.28888 22:07: 0 Indra MG/HR 00 Refill(s) Transdermal Patch [Catapres-T TS-2] Clotrimazol 2015-03 Yes 1 appl, Mem oria e 10 MG/ML 2-23 TOP, BID, l Topical 22:07: 0 Indra Cream 00 Refill(s) cefTRIAXone 2015-03 Yes 2 gm, Memor ia 2 g 2-23 IVPB, l injection 22:07: [id number], 0 [place] 00 Refill(s) benzonatate 2015-03 Yes 200 mg = 2 Memoria 100 mg oral 2-23 cap, PO, l capsule 22:07: TID, 0 Indra 00 Refill(s) atorvastati 2015-03 Yes 80 mg = 2 M emoria n 40 mg 2-23 tab, PO, l oral tablet 22:07: Bedtime, 0 [place] 00 Refill(s) ascorbic 2015-03 Yes 500 mg = 1 Mem oria acid 500 mg 2-23 tab, CHEW, l oral tablet 22:07: Daily, 0 [place] 00 Refill(s) Aspirin 2015-03 Yes 325 mg = 1 King kristina 2-23 tab, PO, l 22:07: Daily, 0 Indra 00 Refill(s) acetaminoph 2015-03 Yes 1,000 mg = Memoria en 500 mg 2-23 2 tab, PO, l oral tablet 22:07: Q6H, PRN [place] 00 Pain Score 6-10, 0 Refill(s) Ativan 2015-03 No Notes: Memoria 2-23 (Same as: l 04:26: Ativan) [place] 00 Ativan 2015-03 No Notes: Memoria 2-23 (Same as: l 04:26: Ativan) [place] 00 Ceftriaxone 2015-03 No Notes: King kristina 2-21 (Same As: l 18:00: Rocephin). [place] 00 Use with 100 mL NS and infuse over 30 min MEDICATION WASTE Product Size: 2000 mg Product Wasted: ___ mg Ceftriaxone 2015-03 No Notes: King kristina 2-21 (Same As: l 18:00: Rocephin). Indra 00 Use with 100 mL NS and infuse over 30 min MEDICATION WASTE Product Size: 2000 mg Product Wasted: ___ mg Miralax 2015-03 No Notes: Memoria 2-21 Dissolve l 17:00: in 8 oz of Indra 00 water or juice. (Same as: Miralax) Miralax 2015-03 No Notes: Memoria 2-21 Dissolve l 17:00: in 8 oz of Indra 00 water or juice. (Same as: Miralax) glycerin 2015-03 No 1 supp, Memori a adult 05-16 Route: VA, l rectal 16:23: Drug Form: Salud nn suppository 00 SUPP, Dosing Weight 88.636, kg, Daily, PRN Constipati on, Start date: 03/15/16 10:23:00 BAKER SECOND, Duration: 30 day, Stop date: 04/14/16 10:22:00 BAKER SECOND glycerin 2015-03 No 1 supp, Memori a adult 2-21 Route: VA, l rectal 16:23: Drug Form: Salud nn suppository 00 SUPP, Dosing Weight 88.636, kg, Daily, PRN Constipati on, Start date: 03/15/16 10:23:00 BAKER SECOND, Duration: 30 day, Stop date: 04/14/16 10:22:00 BAKER SECOND Vancomycin 2015-03 No 2000 mg: Me moria 2-20 infuse l 18:00: over 2.5 Indra 00 hours MEDICATION WASTE Product Size: 1000 mg Product Wasted: ___ mg Vancomycin 2015- No 2000 mg: Me moria 2-20 infuse l 18:00: over 2.5 [place] 00 hours MEDICATION WASTE Product Size: 1000 mg Product Wasted: ___ mg Zosyn 2015-03 No Notes: Memoria 2-20 (Same as: l 17:00: Zosyn) [place] 00 Dosing based on Piperacill in component MEDICATION WASTE Product Size: 3375 mg Product Wasted: ___ mg Zosyn 2015-03 No Notes: Memoria 2-20 (Same as: l 17:00: Zosyn) Indra 00 Dosing based on Piperacill in component MEDICATION WASTE Product Size: 3375 mg Product Wasted: ___ mg Protonix 2015-03 No Notes: Memoria 2-19 Tablet l 23:00: should not Indra 00 be chewed or crushed. (Same as: Protonix) Protonix 2015-03 No Notes: Memoria 2-19 Tablet l 23:00: should not [place] 00 be chewed or crushed. (Same as: Protonix) Tessalon 2015-03 No Notes: Memoria Perles 2-19 (Same As: l 19:00: Tessalon Indra 00 Perles) "Do Not Crush" Tessalon 2015-03 No Notes: Memoria Perles 2-19 (Same As: l 19:00: Tessalon [place] 00 Perles) "Do Not Crush" Vitamin C 2015-03 No Notes: Memori a 2-19 (Same as: l 15:00: Vitamin C) Vitamin B12 2015-03 No 1,000 Memor ia 2-19 microgram, l 15:00: Route: PO, Indra 00 Drug form: TAB, Daily, Dosing Weight 88.636, kg, Start date: 03/13/16 9:00:00 BAKER SECOND, Duration: 30 day, Stop date: 04/11/16 9:00:00 BAKER SECOND Thiamine 2015-03 No 100 mg, Memori a 2-19 Route: PO, l 15:00: Drug form: Indra 00 TAB, Daily, Dosing Weight 88.636, kg, Start date: 03/13/16 9:00:00 BAKER SECOND, Duration: 30 day, Stop date: 04/11/16 9:00:00 BAKER SECOND Vitamin C 2015-03 No Notes: Memori a 2-19 (Same as: l 15:00: Vitamin C) [place] 00 Vitamin B12 2015-03 No 1,000 Memor ia 2-19 microgram, l 15:00: Route: PO, Indra 00 Drug form: TAB, Daily, Dosing Weight 88.636, kg, Start date: 03/13/16 9:00:00 BAKER SECOND, Duration: 30 day, Stop date: 04/11/16 9:00:00 BAKER SECOND Thiamine 2015-03 No 100 mg, Memori a 2-19 Route: PO, l 15:00: Drug form: Indra 00 TAB, Daily, Dosing Weight 88.636, kg, Start date: 03/13/16 9:00:00 BAKER SECOND, Duration: 30 day, Stop date: 04/11/16 9:00:00 BAKER SECOND Vitamin C 2015-03 No Notes: Memori a 2-18 (Same as: l 15:00: Vitamin C) [place] 00 Vitamin B12 2015-03 No Notes: King kristina 2-18 (Same As: l 15:00: Vitamin [place] 00 B-12) Thiamine 2015-03 No Notes: Memoria 2-18 (Same As: l 15:00: Vitamin [place] 00 B1) Folic Acid 2015-03 No Notes: Memor ia 2-18 (Same as: l 15:00: Folvite) [place] 00 Vitamin C 2015-03 No Notes: Memori a 2-18 (Same as: l 15:00: Vitamin C) Indra 00 Vitamin B12 2015-03 No Notes: King kristina 2-18 (Same As: l 15:00: Vitamin Indra 00 B-12) Thiamine 2015-03 No Notes: Memoria 2-18 (Same As: l 15:00: Vitamin Indra 00 B1) Folic Acid 2015-03 No Notes: Memor ia 2-18 (Same as: l 15:00: Folvite) Indra 00 TPN 2015-03 No Notes: Per Memoria solution, [...] e 2-16 (Same as: l 19:03: Calmosepti [place] 00 ne) Calmoseptin 2015-03 No Notes: King kristina e 2-16 (Same as: l 19:03: Calmosepti Indra 00 ne) Clotrimazol 2015-03 No Notes: For Memoria e 10 MG/ML 2-16 external l Topical 15:00: use only. Salud nn Cream 00 (Same As: Lotrimin AF, Mycelex) Clotrimazol 2015-03 No Notes: For Memoria e [...] 2-15 hospital l adult 900 00:00: policy, Sal[place] nn mL 00 bag must be changed every 24hr. TPN 2015-03 No Notes: Per Memoria solution, 2-15 hospital l adult 900 00:00: policy, Salud [...] 17:13: Isolyte S [place] 00 PH7.4) Isolyte S 2015-03 No Notes: Memori a PH-7.4 2-14 (Same as: l (Bolus) IV 17:13: Isolyte S He [place] 00 PH7.4) Ergocalcife 2015-03 No Notes: King kristina rol [id number] 2-14 (Same as: l UNT Oral 16:36: Vitamin D) Her mcgrath Capsule 00 "Do Not Crush" Ergocalcife 2015-03 No Notes: King kristina rol [id number] 2-14 (Same as: l UNT Oral 16:36: Vitamin D) Her mcgrath Capsule 00 "Do Not Crush" potassium 2015-03 No Notes: Memori a chloride 2-14 (Same as: l 00:09: KCL) [place] 00 Infuse no faster than 10 mEq/hr if given peripheral ly. potassium 2015-03 No Notes: Memori a chloride 2-14 (Same as: l 00:09: KCL) [place] 00 Infuse no faster than 10 mEq/hr if given peripheral ly. TPN 2015-03 No Notes: Per Memoria solution, 2-14 [facility] l adult 900 00:00: policy, Salud nn mL 00 bag must be changed every 24hr. TPN 2015-03 No Notes: Per Memoria solution, 2-14 [facility] l adult 900 00:00: policy, Salud nn mL 00 bag must be changed every 24hr. Dextrose 2015-03 No 12.5 gm, Memor ia 50% Syringe 2-13 25 mL, l 22:09: Route: [place] 00 IVP, Drug Form: INJ, Dosing Weight 88.636, kg, PRN, PRN Blood Glucose Results, Start date: 03/07/16 16:09:00 BAKER SECOND, Duration: 30 day, Stop date: 04/06/16 16:08:00 BAKER SECOND Glucagon 2015-03 No 1 mg, Memoria 2-13 Route: IM, l 22:09: Drug form: [place] 00 PDR/INJ, PRN, Dosing Weight 88.636, kg, PRN Blood Glucose Results, Start date: 03/07/16 16:09:00 BAKER SECOND, Duration: 30 day, Stop date: 04/06/16 16:08:00 BAKER SECOND Insulin, 2015-03 No Notes: Memoria Aspart, 2-13 Roll in l Human 22:09: palms of Indra 00 hands gently; Do [...] Blood Glucose Results, Start date: 03/07/16 16:09:00 BAKER SECOND, Duration: 30 day, Stop date: 04/06/16 16:08:00 BAKER SECOND Glucagon 2015-03 No 1 mg, Memoria 2-13 Route: IM, l 22:09: Drug form: Indra 00 PDR/INJ, PRN, Dosing Weight 88.636, kg, PRN Blood Glucose Results, Start date: 03/07/16 16:09:00 BAKER SECOND, Duration: 30 day, Stop date: 04/06/16 16:08:00 BAKER SECOND Insulin, 2015-03 No Notes: Memoria Aspart, 2-13 Roll in l Human 22:09: palms of [place] 00 hands gently; Do not shake vigorously . (Same as: NovoLOG) "single patient use only" WASTE: F/P - Black; E - Municipal Trash Bin Stable for 28 days at room temperatur e. Expires in days from ____Date potassium 2015-03 No Notes: Memori a chloride 2-13 (Same as: l 12:00: KCL) [place] 00 Infuse no faster than 10 mEq/hr if given peripheral ly. potassium 2015-03 No Notes: Memori a chloride 2-13 (Same as: l 12:00: KCL) [place] 00 Infuse no faster than 10 mEq/hr if given peripheral ly. Isolyte S 2015-03 No Notes: Memori a PH-7.4 2-13 (Same as: l (Bolus) IV 05:59: Isolyte S He [place] 00 PH7.4) Isolyte S 2015-03 No Notes: Memori a PH-7.4 2-13 (Same as: l (Bolus) IV 05:59: Isolyte S [place] 00 PH7.4) TPN 2015-03 No Notes: Per [facility]oria solution, 2-13 hospital l adult 900 00:00: policy, Sal[place] nn mL 00 bag must be changed every 24hr. TPN 2015-03 No Notes: Per [facility]oria solution, 2-13 hospital l adult 900 00:00: policy, Sal[place] nn mL 00 bag must be changed every 24hr. remove 2015-03 No Notes: Memoria patch 2-12 Remove old l 15:00: patch [place] 00 before applicatio n of new patch. remove 2015-03 No Notes: Memoria patch 2-12 Remove old l 15:00: patch [place] 00 before applicatio n of new patch. Isolyte S 2015-03 No Notes: Memori a PH-7.4 2-12 (Same as: l (Bolus) IV 11:40: Isolyte S [place] 00 PH7.4) Isolyte S 2015-03 No Notes: Memori a PH-7.4 2-12 (Same as: l (Bolus) IV 11:40: Isolyte S He [place] 00 PH7.4) potassium 2015-03 No Notes: Memori a phosphate + 2-12 (Same as: l sodium 11:39: K [place] chloride 00 Phosphate. 0.9% INJ ) 1 mMol 250 mL phoshate has 1.47 mEq potassium Infuse over 4 hours potassium 2015-03 No Notes: Memori a phosphate + 2-12 (Same as: l sodium 11:39: K Indra chloride 00 Phosphate. 0.9% INJ ) 1 mMol 250 mL phoshate has 1.47 mEq potassium Infuse over 4 hours atorvastati 2015-03 No Notes: King kristina n 2-12 (Same as: l 03:00: Lipitor) [place] 00 atorvastati 2015-03 No Notes: King kristina n 2-12 (Same as: l 03:00: Lipitor) [place] 00 Isolyte S 2015-03 No Notes: Memori a PH-7.4 2-12 (Same as: l (Bolus) IV 00:09: Isolyte S He [place] 00 PH7.4) Isolyte S 2015-03 No Notes: Memori a [...] 2-11 (Same as: l sodium 18:13: K Indra chloride 00 Phosphate. 0.9% INJ ) 1 mMol 250 mL phoshate has 1.47 mEq potassium Infuse over 4 hours potassium 2015-03 No Notes: Memori a phosphate + 2-11 (Same as: l sodium 18:13: K Indra chloride 00 Phosphate. 0.9% INJ ) 1 mMol 250 mL phoshate has 1.47 mEq potassium Infuse over 4 hours potassium 2015-03 No Notes: Memori a chloride 2-11 (Same as: l 18:00: KCL) [place] 00 Infuse no faster than 10 mEq/hr if given peripheral ly. potassium 2015-03 No Notes: Memori a chloride 2-11 (Same as: l 18:00: KCL) [place] 00 Infuse no faster than 10 mEq/hr if given peripheral ly. potassium 2015-03 No Notes: Memori a chloride 2-11 (Same as: l 16:00: KCL) [place] 00 Infuse no faster than 10 mEq/hr if given peripheral ly. potassium 2015-03 No Notes: Memori a chloride 2-11 (Same as: l 16:00: KCL) Indra 00 Infuse no faster than 10 mEq/hr if given peripheral ly. potassium 2015-03 No Notes: Memori a phosphate + 2-11 (Same as: l sodium 15:32: K [place] chloride 00 Phosphate. 0.9% INJ ) 1 mMol 250 mL phoshate has 1.47 mEq potassium Infuse over 4 hours potassium 2015-03 No Notes: Memori a phosphate + 2-11 (Same as: l sodium 15:32: K Indra chloride 00 Phosphate. 0.9% INJ ) 1 mMol 250 mL phoshate has 1.47 mEq potassium Infuse over 4 hours potassium 2015-03 No Notes: Memori a chloride 2-11 (Same as: l 15:15: KCL) [place] 00 Infuse no faster than 10 mEq/hr if given peripheral ly. potassium 2015-03 No Notes: Memori a chloride 2-11 (Same as: l 15:15: KCL) Indra 00 Infuse no faster than 10 mEq/hr if given peripheral ly. Trazodone 2015-03 No Notes: Memori a Hydrochlori 2-11 (Same As: l de 100 MG 06:26: Desyrel) Herm greer Oral Tablet 00 Trazodone 2015-03 No Notes: Memori a Hydrochlori [...] TPN 2015-03 No Notes: Per Memoria solution, -11 hospital l adult 900 00:00: policy, Sal[place] nn mL 00 bag must be changed every 24hr. TPN 2015-03 No Notes: Per Memoria solution, 2-11 hospital l adult 900 00:00: policy, Sal[place] nn mL 00 bag must be changed every 24hr. potassium 2015-03 No Notes: Memori a phosphate + 2-10 (Same as: l sodium 23:00: K [place] chloride 00 Phosphate. 0.9% INJ ) 1 mMol 250 mL phoshate has 1.47 mEq potassium Infuse over 4 hours potassium 2015-03 No Notes: Memori a phosphate + 2-10 (Same as: l sodium 23:00: K [place] chloride 00 Phosphate. 0.9% INJ ) 1 mMol 250 mL phoshate has 1.47 mEq potassium Infuse over 4 hours potassium 2015-03 No 2 pkt, Memori a phosphate-s 2-10 Route: PO, l odium 17:29: Dosing [place] phosphate 00 Weight 250 mg-280 88.636, mg-160 mg kg, ONCE, oral powder Start for date: reconstitut 03/04/16 ion 11:29:00 BAKER SECOND, Stop date: 03/04/16 11:29:00 BAKER SECOND potassium 2015-03 No 2 pkt, Memori a phosphate-s 2-10 Route: PO, l odium 17:29: Dosing [place] phosphate 00 Weight 250 mg-280 88.636, mg-160 mg kg, ONCE, oral powder Start for date: reconstitut 03/04/16 ion 11:29:00 BAKER SECOND, Stop date: 03/04/16 11:29:00 BAKER SECOND potassium 2015-03 No Notes: Memori a chloride 2-10 (Same as: l 17:00: KCL) Indra 00 Infuse no faster than 10 mEq/hr if given peripheral ly. potassium 2015-03 No Notes: Memori a chloride 2-10 (Same as: l 17:00: KCL) [place] 00 Infuse no faster than 10 mEq/hr if given peripheral ly. potassium 2015-03 No Notes: Memori a phosphate + 2-10 (Same as: l sodium 16:56: K [place] chloride 00 Phosphate. 0.9% INJ ) 1 mMol 250 mL phoshate has 1.47 mEq potassium Infuse over 4 hours potassium 2015-03 No Notes: Memori a phosphate + 2-10 (Same as: l sodium 16:56: K Indra chloride 00 Phosphate. 0.9% INJ [...] mEq, Memor ia chloride 05-04 Route: l 23:00: IVPB, Q1H, Indra 00 Dosing Weight 88.636, kg, Total Dose = 40 meq, Start date: 03/03/16 17:00:00 BAKER SECOND, Duration: 4 doses or times, Stop date: 03/03/16 20:00:00 BAKER SECOND, Periphe ral Line potassium 2015-03 No 10 mEq, Memor ia chloride 2-09 Route: l 23:00: IVPB, Q1H, [place] Dosing Weight 88.636, kg, Total Dose = 40 meq, Start date: 03/03/16 17:00:00 BAKER SECOND, Duration: 4 doses or times, Stop date: 03/03/16 20:00:00 BAKER SECOND, Periphe ral Line Dilaudid 2015-03 No Notes: Memoria 2-09 Same as l 20:44: Dilaudid Indra 00 Dilaudid 2015-03 No Notes: Memoria 2-09 Same as l 20:44: Dilaudid [place] 00 Synthroid 2015-03 No Notes: Memori a 2-09 (Same as: l 16:30: Synthroid) Indra potassium 2015-03 No Notes: Memori a phosphate-s 2-09 (Same as: l odium 16:30: Phos-NaK) [place] phosphate 00 Each 1.5 gm pkt has 250mg phosphorou s. Mix w/2.5oz water and stir. Synthroid 2015-03 No Notes: Memori a 2-09 (Same as: l 16:30: Synthroid) [place] 00 potassium 2015-03 No Notes: Memori a phosphate-s 2-09 (Same as: l odium 16:30: Phos-NaK) [place] phosphate 00 Each 1.5 gm pkt has 250mg phosphorou s. Mix w/2.5oz water and stir. potassium 2015-03 No Notes: Memori a chloride 2-09 (Same as: l 15:00: KCL) Indra 00 Infuse no faster than 10 mEq/hr if given peripheral ly. potassium 2015-03 No Notes: Memori a chloride 2-09 (Same as: l 15:00: KCL) Indra 00 Infuse no faster than 10 mEq/hr if given peripheral ly. potassium 2015-03 No 10 mEq, Memor ia chloride 2-09 Route: l 14:00: IVPB, Q1H, [place] Dosing Weight 88.636, kg, Total Dose = 40 meq, Start date: 03/03/16 8:00:00 BAKER SECOND, Duration: 4 doses or times, Stop date: 03/03/16 11:00:00 BAKER SECOND, Periphe ral Line potassium 2015-03 No 10 mEq, Memor ia chloride 05-04 Route: l 14:00: IVPB, Q1H, Indra 00 Dosing Weight 88.636, kg, Total Dose = 40 meq, Start date: 03/03/16 8:00:00 BAKER SECOND, Duration: 4 doses or times, Stop date: 03/03/16 11:00:00 BAKER SECOND, Periphe ral Line Calmoseptin 2015-03 No Notes: King kristina e 2- (Same as: l 13:59: Calmosepti Indra 00 ne) Calmoseptin 2015-03 No Notes: King kristina e 2-09 (Same as: l 13:59: Calmosepti [place] 00 ne) Erythromyci 2015-03 No Notes: King kristina n 2-09 (Same as: l 00:00: erythromyc [place] 00 in lactobiona te) TPN 2015-03 No Notes: Per [facility]oria solution, 05-04 hospital l adult 900 00:00: policy, Salud nn mL 00 bag must be changed every 24hr. Erythromyci 2015-03 No Notes: King kristina n 2-09 (Same as: l 00:00: erythromyc Indra 00 in lactobiona te) TPN 2015-03 No Notes: Per Memoria solution, 05-04 hospital l adult 900 00:00: policy, Salud nn mL 00 bag must be changed every 24hr. Saline 2015-03 No Notes: Memoria Flush 0.9% 2-08 (Same as: l 22:00: BD [place] 00 Posiflush) Saline 2015-03 No Notes: Memoria Flush 0.9% 2-08 (Same as: l 22:00: BD [place] 00 Posiflush) Lidocaine 2015-03 No Notes: Memori a Hydrochlori 2-08 (Same as: l de 10 MG/ML 19:00: Xylocaine) [place] Injectable 00 Solution Lidocaine 2015-03 No Notes: Memori a Hydrochlori 2-08 (Same as: l de 10 MG/ML 19:00: Xylocaine) Indra Injectable 00 Solution Saline 2015-03 No Notes: Memoria Flush 0.9% 2-08 (Same as: l 18:01: BD [place] 00 Posiflush) Saline 2015-03 No Notes: Memoria Flush 0.9% 2-08 (Same as: l 18:01: BD Indra 00 Posiflush) Iohexol 2015-03 No Notes: Memoria 2-07 (Same l 22:28: as:Omnipaq [place] 00 ue 350). WASTE: F/P - Black; E - Municipal Trash Bin Iohexol 2015-03 No Notes: Memoria 2-07 (Same l 22:28: as:Omnipaq Indra 00 ue 350). WASTE: F/P - Black; [...] 00 PH 7.4) Insulin 2015-03 No 60 units) King kristina regular 05-02 WASTE: F/P l 01:10: - Black; E Indra 00 - Municipal Trash Bin Stable for 28 days at room temperatur e Expires in days from ____Date Dextrose 2015-03 No 12.5 gm, Memor ia 50% Syringe 2-07 25 mL, l 01:10: Route: [place] 00 IVP, Drug Form: INJ, Dosing Weight 88.636, kg, PRN, PRN Abnormal Lab Result, Start date: 02/29/16 19:10:00 BAKER SECOND, Duration: 30 day, Stop date: 03/30/16 19:09:00 BAKER SECOND, For FSBG 40 mg/dL - 60 mg/dL Insulin 2015-03 No 60 units) King kristina regular 05-02 WASTE: F/P l 01:10: - Black; E Indra - Municipal Trash Bin Stable for 28 days at room temperatur e Expires in days from ____Date Dextrose 2015-03 No 12.5 gm, Memor ia 50% Syringe 2-07 25 mL, l 01:10: Route: [place] 00 IVP, Drug Form: INJ, Dosing Weight 88.636, kg, PRN, PRN Abnormal Lab Result, Start date: 02/29/16 19:10:00 BAKER SECOND, Duration: 30 day, Stop date: 03/30/16 19:09:00 BAKER SECOND, For FSBG 40 mg/dL - 60 mg/dL Reglan 2015-03 No Notes: Memoria 2-07 (Same as: l 00:00: Reglan) Indra potassium 2015-03 No Notes: Memori a chloride 2-07 (Same as: l 00:00: KCL) Indra 00 Infuse no faster than 10 mEq/hr if given peripheral ly. Reglan 2015-03 No Notes: Memoria 2-07 (Same as: l 00:00: Reglan) [place] potassium 2015-03 No Notes: Memori a chloride 2-07 (Same as: l 00:00: KCL) [place] Infuse no faster than 10 mEq/hr if given peripheral ly. potassium 2015-03 No Notes: Memori a chloride 2-06 (Same as: l 23:00: KCL) Infuse no faster than 10 mEq/hr if given peripheral ly. potassium 2015-03 No Notes: Memori a chloride 2-06 (Same as: l 23:00: KCL) Indra 00 Infuse no faster than 10 mEq/hr if given peripheral ly. Morphine 2015-03 No Notes: Memoria 2-06 (Same l 22:51: as:MORPhin [place] 00 e Sulfate) Morphine 2015-03 No Notes: Memoria 2- (Same l 22:51: as:MORPhin [place] 00 e Sulfate) Xopenex 2015-03 No Notes: SEE King kristina 2-06 RT l 20:34: DOCUMENTAT Indra 00 ION (Same as:Xopenex ) Non-Formul lety D5NS 1,000 2015-03 No 1,000 mL, Me moria mL 2 Rate: 50 l 20:34: ml/hr, Indra 00 Infuse over: 20 hr, Route: IV, Dosing Weight 88.636 kg, Total Volume: 1,000, Start date: 02/29/16 14:34:00 BAKER SECOND, Duration: 30 day, Stop date: 03/30/16 14:33:00 BAKER SECOND Xopenex 2015-03 No Notes: SEE King kristina 2-06 RT l 20:34: DOCUMENTAT Indra 00 ION (Same as:Xopenex ) Non-Formul lety D5NS 1,000 2015-03 No 1,000 mL, Me moria mL 05-01 Rate: 50 l 20:34: ml/hr, Indra 00 Infuse over: 20 hr, Route: IV, Dosing Weight 88.636 kg, Total Volume: 1,000, Start date: 02/29/16 14:34:00 BAKER SECOND, Duration: 30 day, Stop date: 03/30/16 14:33:00 BAKER SECOND Vancomycin 2015-03 No 2000 mg: Me moria 2-06 infuse l 15:00: over 2.5 Indra 00 hours MEDICATION WASTE Product Size: 1000 mg Product Wasted: ___ mg Vancomycin 2015-03 No 2000 mg: Me moria 2-06 infuse l 15:00: over 2.5 Indra 00 hours MEDICATION WASTE Product Size: 1000 mg Product Wasted: ___ mg Golytely 2015-03 No Notes: Memoria 05-01 (polyethyl l 03:00: vickey glycol [place] 00 electrolyt e solution 4 Liter bottle) (Same as: Golytely, Colyte) Golytely 2015-03 No Notes: Memoria 2-06 (polyethyl l 03:00: vickey glycol Dod[place] 00 electrolyt e solution 4 Liter bottle) (Same as: Golytely, Colyte) Bisacodyl 2015-03 No Notes: Memori a 2-05 (Same As: l 21:55: Dulcolax, Indra 00 Bisco-Lax) Bisacodyl 2015-03 No Notes: Memori a 2-05 (Same As: l 21:55: Dulcolax, [place] 00 Bisco-Lax) Reglan 2015-03 No Notes: Memoria 2-05 (Same as: l 18:00: Reglan) [place] 00 Reglan 2015-03 No Notes: Memoria 2-05 (Same as: l 18:00: Reglan) Indra 00 Lactulose 2015-03 No 1,000 ml, Mem oria 2-05 Route: VA, l 16:04: Drug Form: Indra 00 NICHOLAS, Dosing Weight 88.636, kg, ONCE, Start date: 02/28/16 10:04:00 BAKER [facility]OND, Duration: 1 doses or times, Stop date: 02/28/16 10:04:00 BAKER SECOND, 300 mL lactulose + 700 mL water Lactulose 2015-03 No 1,000 ml, Mem oria 2-05 Route: VA, l 16:04: Drug Form: Indra 00 NICHOLAS, Dosing Weight 88.636, kg, ONCE, Start date: 02/28/16 10:04:00 BAKER SECOND, Duration: 1 doses or times, Stop date: 02/28/16 10:04:00 BAKER SECOND, 300 mL lactulose + 700 mL water 168 HR 2015-03 No Notes: Memoria Clonidine 2-05 Patch l [id number] 15:00: delivers Oleksandr n MG/HR 00 0.2 mg/24 Transdermal hours; Patch Patch is [Catapres-T applied TS-2] weekly. "Remove old patch before applicatio n of new patch" (Same As: Catapres-T TS-2) Thiamine 2015-03 No Notes: Memoria 2-05 (Same As: l 15:00: Vitamin [place] 00 B1) 168 HR 2015-03 No Notes: Memoria Clonidine 2-05 Patch l [id number] 15:00: delivers Oleksandr n MG/HR 00 0.2 mg/24 Transdermal hours; Patch Patch is [Catapres-T applied TS-2] weekly. "Remove old patch before applicatio n of new patch" (Same As: Catapres-T TS-2) Thiamine 2015-03 No Notes: Memoria 2-05 (Same As: l 15:00: Vitamin Indra 00 B1) Acetaminoph 2015-03 No Notes: Max Memoria en 2-05 acetaminop l 13:29: hen 4000 [place] 00 mg/day (4 gm/day). (Same as: Tylenol Extra Strength) Acetaminoph 2015-03 No Notes: Max Memoria en 2-05 acetaminop l 13:29: hen 4000 Indra 00 mg/day (4 gm/day). (Same as: Tylenol Extra Strength) mineral oil 2015-03 No Notes: King kristina 2-05 (Same l 03:00: as:Fleet [place] 00 Mineral Oil Enema) mineral oil 2015-03 No Notes: King kristina 2-05 (Same l 03:00: as:Fleet Indra 00 Mineral Oil Enema) iodixanol 2015-03 No 92 mL, Memori a 2-04 Route: l 21:46: IVP, Drug [place] 00 Form: SOLN, Dosing Weight 88.636, kg, ONCALL, STAT, Start date: 02/27/16 15:46:00 BAKER SECOND, Duration: 1 doses or times, Dose = 2.2ml/kg, Max dose = 100ml -- "To be infused by Radiology Staff ONLY" iodixanol 2015-03 No 92 mL, Memori a 2-04 Route: l 21:46: IVP, Drug [place] 00 Form: SOLN, Dosing Weight 88.636, kg, ONCALL, STAT, Start date: 02/27/16 15:46:00 BAKER SECOND, Duration: 1 doses or times, Dose = 2.2ml/kg, Max dose = 100ml -- "To be infused by Radiology Staff ONLY" Zosyn 2015-03 No Notes: Memoria 2-04 (Same as: l 19:00: Zosyn) Indra 00 Dosing based on Piperacill in component MEDICATION WASTE Product Size: 3375 mg Product Wasted: _0__ mg Vancomycin 2015-03 No 2001 mg: Me moria 2-04 infuse l 19:00: over 2.5 Indra 00 hours MEDICATION WASTE Product Size: 1000 mg Product Wasted: ___ mg Zosyn 2015-03 No Notes: Memoria 2-04 (Same as: l 19:00: Zosyn) Indra 00 Dosing based on Piperacill in component MEDICATION WASTE Product Size: 3375 mg Product Wasted: _0__ mg Vancomycin 2015-03 No 2000 mg: Me moria 2-04 infuse l 19:00: over 2.5 [place] 00 hours MEDICATION WASTE Product Size: 1000 mg Product Wasted: ___ mg Insulin, 2015-03 No Notes: Memoria Aspart, 2-04 Roll in l Human 18:47: palms of [place] 00 hands gently; Do not shake vigorously [...] Blood Glucose Results, Start date: 02/27/16 12:47:00 BAKER SECOND, Duration: 30 day, Stop date: 03/28/16 12:46:00 BAKER SECOND Glucagon 2015-03 No 1 mg, Memoria 2-04 Route: IM, l 18:47: Drug form: [place] 00 PDR/INJ, PRN, Dosing Weight 88.636, kg, PRN Blood Glucose Results, Start date: 02/27/16 12:47:00 BAKER SECOND, Duration: 30 day, Stop date: 03/28/16 12:46:00 BAKER SECOND Insulin, 2015-03 No Notes: Memoria Aspart, 2-04 Roll in l Human 18:47: palms of [place] 00 hands gently; Do not shake vigorously . (Same as: NovoLOG) "single patient use only" WASTE: F/P - Black; E - Municipal Trash Bin Stable for 28 days at room temperatur e. Expires in days from ____Date Dextrose 2015-03 No 25 gm, 50 King kristina 50% Syringe 2-04 mL, Route: l 18:47: IVP, Drug [place] 00 Form: INJ, Dosing Weight 88.636, kg, PRN, PRN Blood Glucose Results, Start date: 02/27/16 12:47:00 BAKER SECOND, Duration: 30 day, Stop date: 03/28/16 12:46:00 BAKER SECOND Glucagon 2015-03 No 1 mg, Memoria 2-04 Route: IM, l 18:47: Drug form: [place] 00 PDR/INJ, PRN, Dosing Weight 88.636, kg, PRN Blood Glucose Results, Start date: 02/27/16 12:47:00 BAKER SECOND, Duration: 30 day, Stop date: 03/28/16 12:46:00 BAKER SECOND D5NS 1,000 2015-03 No 1,000 mL, Me moria mL 2-04 Rate: 100 l 18:29: ml/hr, [place] 00 Infuse over: 10 hr, Route: IV, Dosing Weight 88.636 kg, Total Volume: 1,000, Start date: 02/27/16 12:29:00 BAKER SECOND, Duration: 30 day, Stop date: 03/28/16 12:28:00 BAKER SECOND D5NS 1,000 2015-03 No 1,000 mL, Me moria mL 2-04 Rate: 100 l 18:29: ml/hr, [place] 00 Infuse over: 10 hr, Route: IV, Dosing Weight 88.636 kg, Total Volume: 1,000, Start date: 02/27/16 12:29:00 BAKER SECOND, Duration: 30 day, Stop date: 03/28/16 12:28:00 BAKER SECOND Sodium 2015-03 No 1,000 mL, Memori a Chloride 2-04 1,000 l 0.154 16:43: ml/hr, Indra MEQ/ML 00 Infuse Injectable Over: 1 Solution hr, Route: IV, 1,000, Drug form: INJ, ONCE, Priority: STAT, Dosing Weight 88.636 kg, Start date: 02/27/16 10:43:00 BAKER SECOND, Duration: 1 doses or times, Stop date: 02/27/16 10:43:00 BAKER SECOND Sodium 2016- No 1,000 mL, Memori a Chloride 2-04 1,000 l 0.154 16:43: ml/hr, Indra MEQ/ML 00 Infuse Injectable Over: 1 Solution hr, Route: IV, 1,000, Drug form: INJ, ONCE, Priority: STAT, Dosing Weight 88.636 kg, Start date: 02/27/16 10:43:00 BAKER SECOND, Duration: 1 doses or times, Stop date: 02/27/16 10:43:00 BAKER SECOND Protonix 2016-1 No 40 mg, Memoria 2-04 Route: l 15:00: IVP, Drug Indra 00 form: INJ, BID, Dosing Weight 88.636, kg, Start date: 02/27/16 9:00:00 BAKER SECOND, Duration: 30 day, Stop date: 03/27/16 17:00:00 BAKER SECOND Protonix 2015- No 40 mg, Memoria 2-04 Route: l 15:00: IVP, Drug [place] 00 form: INJ, BID, Dosing Weight 88.636, kg, Start date: 02/27/16 9:00:00 BAKER SECOND, Duration: 30 day, Stop date: 03/27/16 17:00:00 BAKER SECOND Sodium 2016- No 1,000 mL, Memori a Chloride 2-04 1,000 l 0.154 14:57: ml/hr, [place] MEQ/ML 00 Infuse Injectable Over: 1 Solution hr, Route: IV, 1,000, Drug form: INJ, ONCE, Priority: STAT, Dosing Weight 88.636 kg, Start date: 02/27/16 8:57:00 BAKER SECOND, Duration: 1 doses or times, Stop date: 02/27/16 8:57:00 BAKER SECOND Sodium 2016- No 1,000 mL, Memori a Chloride 2-04 1,000 l 0.154 14:57: ml/hr, Indra MEQ/ML 00 Infuse Injectable Over: 1 Solution hr, Route: IV, 1,000, Drug form: INJ, ONCE, Priority: STAT, Dosing Weight 88.636 kg, Start date: 02/27/16 8:57:00 BAKER SECOND, Duration: 1 doses or times, Stop date: 02/27/16 8:57:00 BAKER SECOND Erythromyci 2015-03 No Notes: King kristina n 2-04 (Same as: l 12:00: erythromyc [place] 00 in lactobiona te) Erythromyci 2015-03 No Notes: King kristina n 2-04 (Same as: l 12:00: erythromyc [place] 00 in lactobiona te) Metoprolol 2015-03 No Notes: Memor ia 2-04 (Same as: l 11:36: Lopressor) Indra 00 Push over 2 minutes Metoprolol 2015-03 No Notes: Memor ia 2-04 (Same as: l 11:36: Lopressor) [place] 00 Push over 2 minutes Lactulose 2015-03 No Notes: Memori a 2-04 (Same l 11:28: as:Chronul Indra 00 ac) Lactulose 2015-03 No Notes: Memori a 2-04 (Same l 11:28: as:Chronul Indra 00 ac) magnesium 2015-03 No Notes: Memori a citrate 2-04 (Same as: l 58.2 MG/ML 02:02: Citrate of H ermann Oral 00 Magnesia) Solution Concentrat ion: 1.745 gm / 30 mL magnesium 2015-03 No Notes: Memori a citrate 2-04 (Same as: l 58.2 MG/ML 02:02: Citrate of H ermann Oral 00 Magnesia) Solution Concentrat ion: 1.745 gm / 30 mL Simethicone 2015-03 No Notes: King kristina 2-04 (Same as: l 00:00: Mylicon) [place] Simethicone 2015-03 No Notes: King kristina 2-04 (Same as: l 00:00: Mylicon) Indra 00 gabapentin 2015-03 No Notes: Memor ia 100 MG Oral 2-03 (Same as: l Capsule 20:00: Neurontin) Herm greer 00 gabapentin 2015-03 No Notes: Memor ia 100 MG Oral 2-03 (Same as: l Capsule 20:00: Neurontin) Herm greer magnesium 2015-03 No Notes: Memori a citrate 2-03 (Same as: l 58.2 MG/ML 19:01: Citrate of H ermann Oral 00 Magnesia) Solution Concentrat ion: 1.745 gm / 30 mL magnesium 2015-03 No Notes: Memori a citrate 2-03 (Same as: l 58.2 MG/ML 19:01: Citrate of H ermann Oral 00 Magnesia) Solution Concentrat ion: 1.745 gm / 30 mL Simethicone 2015-03 No Notes: King kristina 2-02 (Same as: l 02:01: Mylicon, Indra 00 Phazyme, Genasyme) molasses 2015-03 No Notes: Memoria 2-02 (Same l 02:01: as:Molasse [place] 00 s) Simethicone 2015-03 No Notes: King kristina 2-02 (Same as: l 02:01: Mylicon, Indra 00 Phazyme, Genasyme) molasses 2015-03 No Notes: Memoria 2-02 (Same l 02:01: as:Molasse [place] 00 s) Bisacodyl 2015-03 No Notes: Memori a 2-01 (Same As: l 17:33: Dulcolax, [place] 00 Bisco-Lax) Bisacodyl 2015-03 No Notes: Memori a 2-01 (Same As: l 17:33: Dulcolax, [place] 00 Bisco-Lax) Aspirin 2015-03 No Notes: Memoria 2-01 Take with l 15:00: food. [place] 00 Miralax 2015-03 No Notes: Memoria 2-01 Dissolve l 15:00: in 8 oz of [place] 00 water or juice. (Same as: Miralax) Aspirin 2015-03 No Notes: Memoria 2-01 Take with l 15:00: food. Indra 00 Miralax 2015-03 No Notes: Memoria 2-01 Dissolve l 15:00: in 8 oz of [place] 00 water or juice. (Same as: Miralax) Lovenox 2015-03 No Notes: Memoria 2-01 (Same as: l 03:00: Lovenox) [place] 00 Lovenox 2015-03 No Notes: Memoria 2-01 (Same as: l 03:00: Lovenox) [place] 00 Lipitor 2015-03 No Notes: Memoria 2-01 (Same as: l 00:30: Lipitor) [place] 00 Lipitor 2015-03 No Notes: Memoria 2-01 (Same as: l 00:30: Lipitor) [place] 00 Aspirin 325 2015-03 No Notes: King kristina MG Oral 2-01 Take with l Tablet 00:13: food. Aspirin 325 2015-03 No Notes: King kristina MG Oral 2-01 Take with l Tablet 00:13: food. aspirin 81 2015-03 No Notes: Memor ia mg tablet, 2-01 Take with l chewable 00:00: food. aspirin 81 2015-03 No Notes: Memor ia mg tablet, 2-01 Take with l chewable 00:00: food. iodixanol 2015-03 No 100 mL, Memor ia 04-24 Route: l 22:52: IVP, Drug Indra 00 Form: SOLN, Dosing Weight 88.636, kg, ONCALL, STAT, Start date: 02/23/16 16:52:00 BAKER SECOND, Duration: 1 doses or times, Dose = 2.2ml/kg, Max dose = 150ml -- "To be infused by Radiology Staff ONLY" iodixanol 2015-03 No 100 mL, Memor ia 04-24 Route: l 22:52: IVP, Drug [place] 00 Form: SOLN, Dosing Weight 88.636, kg, ONCALL, STAT, Start date: 02/23/16 16:52:00 BAKER SECOND, Duration: 1 doses or times, Dose = 2.2ml/kg, Max dose = 150ml -- "To be infused by Radiology Staff ONLY" Iohexol 2015-03 No Notes: Memoria 04-24 (Same l 15:15: as:Omnipaq Indra ue 350). WASTE: F/P - Black; E - Municipal Trash Bin Iohexol 2015-03 No Notes: Memoria 04-24 (Same l 15:15: as:Omnipaq Indra ue 350). WASTE: F/P - Black; E - Municipal Trash Bin Vitamin D2 2015-03 No Notes: Memor ia 04-23 (Same as: l 19:30: Vitamin D) Indra 00 "Do Not Crush" Vitamin D2 2015-03 No Notes: Memor ia 04-23 (Same as: l 19:30: Vitamin D) [place] 00 "Do Not Crush" Vitamin D3 2015-03 No 50,000 Memor ia 04-23 IntlUnit, l 17:32: Route: PO, [place] 00 ONCE, Dosing Weight 88.636, kg, Start date: 02/22/16 11:32:00 BAKER SECOND, Stop date: 02/22/16 11:32:00 BAKER SECOND Vitamin D3 2015-03 No 50,000 Memor ia - IntlUnit, l 17:32: Route: PO, Indra 00 ONCE, Dosing Weight 88.636, kg, Start date: 02/22/16 11:32:00 BAKER SECOND, Stop date: 02/22/16 11:32:00 BAKER SECOND Docusate 2015-03 No Notes: Memoria Sodium 100 - (Same as: l MG Oral 15:00: Colace) [place] Capsule 00 [Colace] Flomax 2015-03 No Notes: Memoria 1-29 (Same As: l 15:00: Flomax) [place] 00 "Do Not Crush" gabapentin 2015-03 No Notes: Memor ia 300 MG Oral 04-23 (Same as: l Capsule 15:00: Neurontin) Herm greer 00 multivitami 2015-03 No Notes: King kristina n 04-23 (Same l 15:00: as:Thera) Indra 00 WASTE: F/P - Black; E - Municipal Trash Bin Take with food. Thyroxine 2015-03 No Notes: Memori a -29 Take 1 l 15:00: hour [place] 00 before or 2 hours after meal; Enteral feeds may interefere with the absorption of this medication .(Same as:Levothr oid, Synthroid) Nexium 2015-03 No 40 mg, Memoria 04-23 Route: PO, l 15:00: Drug form: [place] 00 ECCAP, Daily, Dosing Weight 88.636, kg, Start date: 02/22/16 9:00:00 BAKER SECOND, Duration: 30 day, Stop date: 03/22/16 9:00:00 BAKER SECOND Cymbalta 2015-03 No Notes: Memoria 1-29 (Same as: l 15:00: Cymbalta) [place] 00 (Do Not Crush) Docusate 2015-03 No Notes: Memoria Sodium 100 -29 (Same as: l MG Oral 15:00: Colace) Indra Capsule 00 [Colace] Flomax 2015-03 No Notes: Memoria 1-29 (Same As: l 15:00: Flomax) [place] 00 "Do Not Crush" gabapentin 2015-03 No Notes: Memor ia 300 MG Oral 04-23 (Same as: l Capsule 15:00: Neurontin) Herm greer 00 multivitami 2015-03 No Notes: King kristina n 04-23 (Same l 15:00: as:Thera) [place] 00 WASTE: F/P - Black; E - Municipal Trash Bin Take with food. Thyroxine 2015-03 No Notes: Memori a 04-23 Take 1 l 15:00: hour Indra 00 before or 2 hours after meal; Enteral feeds may interefere with the absorption of this medication .(Same as:Levothr oid, Synthroid) Nexium 2015-03 No 40 mg, Memoria 04-23 Route: PO, l 15:00: Drug form: [place] 00 ECCAP, Daily, Dosing Weight 88.636, kg, Start date: 02/22/16 9:00:00 BAKER SECOND, Duration: 30 day, Stop date: 03/22/16 9:00:00 BAKER SECOND Cymbalta 2015-03 No Notes: Memoria 04-23 (Same as: l 15:00: Cymbalta) [place] 00 (Do Not Crush) Vitamin D3 2015-03 No 50,000 Memor ia 04-23 IntlUnit, l 13:42: Route: PO, [place] 00 ONCE, Dosing Weight 88.636, kg, Start date: 02/22/16 7:42:00 BAKER SECOND, Stop date: 02/22/16 7:42:00 BAKER SECOND Vitamin D3 2015-03 No 50,000 Memor ia 04-23 IntlUnit, l 13:42: Route: PO, Indra 00 ONCE, Dosing Weight 88.636, kg, Start date: 02/22/16 7:42:00 BAKER SECOND, Stop date: 02/22/16 7:42:00 BAKER SECOND Morphine 2015-03 No Notes: Memoria 04-23 (Same l 13:34: as:MORPhin [place] 00 e Sulfate) Morphine 2015-03 No Notes: Memoria 04-23 (Same l 13:34: as:MORPhin [place] 00 e Sulfate) Acetaminoph 2015-03 No Notes: Do M emoria en 300 MG / 04-23 not exceed l Codeine 13:33: 4gm/day of Herm greer Phosphate 00 acetaminop 30 MG Oral hen. (Same Tablet as: [Tylenol Tylenol with with Codeine #3] Codeine # 3) Acetaminoph 2015-03 No Notes: Do M emoria en 300 MG / 04-23 not exceed l Codeine 13:33: 4gm/day of Herm greer Phosphate 00 acetaminop 30 MG Oral hen. (Same Tablet as: [Tylenol Tylenol with with Codeine #3] Codeine # 3) Protonix 2015-03 No Notes: Memoria 1-29 Tablet l 13:30: should not [place] 00 be chewed or crushed. (Same as: Protonix) Protonix 2015-03 No Notes: Memoria 1-29 Tablet l 13:30: should not Indra 00 be chewed or crushed. (Same as: Protonix) gabapentin 2015-03 No Notes: Memor ia 300 MG Oral 04-23 (Same as: l Capsule 06:00: Neurontin) Herm greer 00 gabapentin 2015-03 No Notes: Memor ia 300 MG Oral 04-23 (Same as: l Capsule 06:00: Neurontin) Herm greer 00 Vitamin D3 2015-03 No Vitamin D3 M emoria 50,000 1-29 50,000 l IntlUnit 05:10: IntlUnit, Herm greer 00 1 tab, Drug form: MISC, Route: PO, ONCE, 02/21/16 23:10:00 BAKER SECOND, Stop date: 02/21/16 23:10:00 BAKER SECOND Vitamin D3 2015-03 No Vitamin D3 M emoria 50,000 1-29 50,000 l IntlUnit 05:10: IntlUnit, Herm greer 00 1 tab, Drug form: MISC, Route: PO, ONCE, 02/21/16 23:10:00 BAKER SECOND, Stop date: 02/21/16 23:10:00 BAKER SECOND Simvastatin 2015-03 No Notes: King kristina - (Same as: l 03:00: Zocor) [place] Simvastatin 2015-03 No Notes: King kristina - (Same as: l 03:00: Zocor) [place] albumin 2015-03 No 500 mL, Memoria human 5% 04-23 Route: IV, l intravenous 02:46: Dosing Herm greer solution Weight 88.636, kg, ONCE, Start date: 02/21/16 20:46:00 BAKER SECOND, Stop date: 02/21/16 20:46:00 BAKER SECOND albumin 2015-03 No 500 mL, Memoria human 5% 04-23 Route: IV, l intravenous 02:46: Dosing Herm greer solution 00 Weight 88.636, kg, ONCE, Start date: 02/21/16 20:46:00 BAKER SECOND, Stop date: 02/21/16 20:46:00 BAKER SECOND Flumazenil 2015-03 No Notes: Memor ia 04-23 (Same as: l 02:05: Romazicon) [place] Hydromorpho 2015-03 No Notes: King kristina ne 04-23 Same as l 02:05: Dilaudid [place] 00 Labetalol 2015-03 No 10 mg, 2 King kristina 1-29 mL, Route: l 02:05: IVP, Drug Indra 00 form: INJ, Q5Min, Dosing Weight 88.636, kg, PRN Elevated BP, Start date: 02/21/16 20:05:00 BAKER SECOND, Duration: 5 doses or times, Stop date: Limited # of times Naloxone 2015-03 No Notes: Memoria 04-23 Same as l 02:05: Narcan [place] Ondansetron 2015-03 No Notes: King kristina 04-23 (Same as: l 02:05: Zofran) [place] MEDICATION WASTE Product Size: 4 mg Product Wasted: ___ mg Flumazenil 2015-03 No Notes: Memor ia 04-23 (Same as: l 02:05: Romazicon) [place] Hydromorpho 2015-03 No Notes: King kristina ne 04-23 Same as l 02:05: Dilaudid Indra 00 Labetalol 2015-03 No 10 mg, 2 King kristina 1-29 mL, Route: l 02:05: IVP, Drug Indra 00 form: INJ, Q5Min, Dosing Weight 88.636, kg, PRN Elevated BP, Start date: 02/21/16 20:05:00 BAKER SECOND, Duration: 5 doses or times, Stop date: Limited # of times Naloxone 2015-03 No Notes: Memoria 04-23 Same as l 02:05: Narcan Indra 00 Ondansetron 2015-03 No Notes: King kristina 04-23 (Same as: l 02:05: Zofran) Indra 00 MEDICATION WASTE Product Size: 4 mg Product Wasted: ___ mg Ancef 2015-03 No Notes: Memoria 04-23 Same as: l 02:00: Ancef [place] 00 tramadol 2015-03 No Notes: Not Mem oria hydrochlori 04-23 to exceed l de 50 MG 02:00: 400mg/day. Her mcgrath Oral Tablet 00 (Same As: Ultram) Ancef 2015-03 No Notes: Memoria 04-23 Same as: l 02:00: Ancef Indra tramadol 2015-03 No Notes: Not Mem oria hydrochlori 04-23 to exceed l de 50 MG 02:00: 400mg/day. Her mcgrath Oral Tablet 00 (Same As: Ultram) Morphine 2015-03 No Notes: Memoria 04-23 Dose: l 01:30: Delay: Indra 00 Basal rate: 4hr limit: (Same as:Andra-[place] [facility]) Morphine 2015-03 No Notes: Memoria 04-23 Dose: l 01:30: Delay: Indra 00 Basal rate: 4hr limit: (Same as:Andra-[place] [facility]) Vitamin D3 2015-03 No 50,000 Memor ia 04-23 IntlUnit, l 01:26: Route: PO, Indar 00 ONCE, Dosing Weight 88.636, kg, Start date: 02/21/16 19:26:00 BAKER SECOND, Stop date: 02/21/16 19:26:00 BAKER SECOND Vitamin D3 2015-03 No 50,000 Memor ia 04-23 IntlUnit, l 01:26: Route: PO, Indra 00 ONCE, Dosing Weight 88.636, kg, Start date: 02/21/16 19:26:00 BAKER SECOND, Stop date: 02/21/16 19:26:00 BAKER SECOND Naloxone 2015-03 No Notes: Memoria 04-23 Same as l 01:22: Narcan [place] 00 Naloxone 2015-03 No Notes: Memoria 04-23 Same as l 01:22: Narcan Indra 00 Isolyte S 2015-03 No Notes: Memori a (PH 7.4) 04-23 (Same as: l 1000 mL 01:19: Isolyte S Salud nn 1,000 mL 00 PH 7.4) Isolyte S 2015-03 No Notes: Memori a (PH 7.4) 04-23 (Same as: l 1000 mL 01:19: Isolyte S Salud nn 1,000 mL 00 PH 7.4) Oxycodone 2015-03 No Notes: Memori a 04-22 (Same as: l 12:48: Roxicodone ) Naloxone 2015-03 No Notes: Memoria 04-22 Same as l 12:48: Narcan Flumazenil 2015-03 No Notes: Memor ia 04-22 (Same as: l 12:48: Romazicon) Ondansetron 2015-03 No Notes: King kristina 04-22 (Same as: l 12:48: Zofran) [place] 00 MEDICATION WASTE Product Size: 4 mg Product Wasted: ___ mg Hydromorpho 2015-03 No Notes: King kristina ne 04-22 Same as l 12:48: Dilaudid Labetalol 2015-03 No 10 mg, 2 King kristina - mL, Route: l 12:48: IVP, Drug form: INJ, Q5Min, Dosing Weight 88.636, kg, PRN Elevated BP, Start date: 02/21/16 6:48:00 BAKER SECOND, Duration: 5 doses or times, Stop date: Limited # of times Hydralazine 2015-03 No Notes: King kristina 04-22 (Same as: l 12:48: Apresoline ) Push over 5 minutes Oxycodone 2015-03 No Notes: Memori a 04-22 (Same as: l 12:48: Roxicodone ) Naloxone 2015-03 No Notes: Memoria 04-22 Same as l 12:48: Narcan Flumazenil 2015-03 No Notes: Memor ia 04-22 (Same as: l 12:48: Romazicon) Ondansetron 2015-03 No Notes: King kristina 04-22 (Same as: l 12:48: Zofran) [place] 00 MEDICATION WASTE Product Size: 4 mg Product Wasted: ___ mg Hydromorpho 2016-1 No Notes: King kristina ne 04-22 Same as l 12:48: Dilaudid Labetalol 2015-03 No 10 mg, 2 King kristina - mL, Route: l 12:48: IVP, Drug form: INJ, Q5Min, Dosing Weight 88.636, kg, PRN Elevated BP, Start date: 02/21/16 6:48:00 BAKER SECOND, Duration: 5 doses or times, Stop date: Limited # of times Hydralazine 2015-03 No Notes: King kristina 04-22 (Same as: l 12:48: Apresoline ) Push over 5 minutes ceFAZolin 2015-03 No Notes: Memori a 04-22 Same as: l 09:00: Ancef ceFAZolin 2015-03 No Notes: Memori a 04-22 [...] 00 30 cap, 0 Capsule Refill(s) [Cymbalta] Thyroxine 2015-03 Yes 50 Memoria 1-15 microgram, [...] Refill(s) [Cymbalta] Flomax 0.4 Flomax 0.4 Yes UT MG Oral MG Oral Physici Capsule Capsule ans Multi Multi Yes UT Complete Complete Physici CAPS CAPS ans Rasagiline Rasagiline Yes UT Mesylate 1 Mesylate 1 Phy sici MG Oral MG Oral ans Tablet Tablet Synthroid Synthroid Yes UT 50 MCG Oral 50 MCG Oral P hysici Tablet Tablet ans Metoprolol Metoprolol Yes UT Tartrate 25 Tartrate 25 P hysici MG Oral MG Oral ans Tablet Tablet Co Q10 200 Co Q10 200 Yes 1 QD TAKE 1 U T MG CAPS MG CAPS CAPSULE Physic i DAILY ans Cosamin ASU Cosamin ASU Yes 1 QD TAKE 1 UT for Joint for Joint CAPSULE Ph ysici Health Oral Health Oral DAILY ans Capsule Capsule Prevagen Prevagen Yes 1 QD TAKE 1 UT CAPS CAPS CAPSULE Physici DAILY ans Allergy Allergy Yes 1 QD TAKE 1 UT Relief 180 Relief 180 TABLET P hysici MG Oral MG Oral DAILY. ans Tablet Tablet Pregabalin Pregabalin Yes Q0.5D TAKE 1 UT 75 MG Oral 75 MG Oral CAPSULE Physici Capsule Capsule TWICE ans DAILY. metFORMIN metFORMIN Yes 1 Q0.5D TAKE 1 UT HCl ER 500 HCl ER 500 TABLET P hysici MG Oral MG Oral TWICE ans Tablet Tablet DAILY Extended Extended Release 24 Release 24 Hour Hour Pantoprazol Pantoprazol Yes Q0.5D TAKE 0.5 UT e Sodium e Sodium MG Twice Phy sici TBEC TBEC daily ans rOPINIRole rOPINIRole Yes Q0.3333D TAKE 1 UT HCl - 0.5 HCl - 0.5 TABLET 3 P hysici MG Oral MG Oral TIMES ans Tablet Tablet DAILY Eliquis 2.5 Eliquis 2.5 Yes 1 Q0.5D TAKE 1 UT MG Oral MG Oral TABLET Physici Tablet Tablet TWICE ans DAILY Atorvastati Atorvastati Yes QD TAKE 1 UT n Calcium n Calcium TABLET Phy sici 40 MG Oral 40 MG Oral DAILY ans Tablet Tablet DIRECTED. Carbidopa-L Carbidopa-L Yes Q0.3333D TAKE 1 UT evodopa evodopa TABLET 3 Physi ci 25-100 MG 25-100 MG TIMES ans Oral Tablet Oral Tablet DAILY Testosteron Testosteron Yes INJECT 1 UT e Cypionate e Cypionate ML EVERY Physici 100 MG/ML 100 MG/ML 14 Days an s Intramuscul Intramuscul ar Solution ar Solution Phenazopyri Phenazopyri Yes Q0.3333D TAKE 1 UT dine HCl - dine HCl - TABLET 3 Physici 200 MG Oral 200 MG Oral TIMES ans Tablet Tablet DAILY Furosemide Furosemide Yes TAKE 1 U T 40 MG Oral 40 MG Oral TABLET BY Physici Tablet Tablet MOUTH ans EVERY DAY Immunizations Ordered Immunization Filled Immunization Date Status Commen ts Source Name Name [facility] 2020-05-04 Completed [facility] COVID-19 Vacc 30 00:00:00 MCG/0.3ML Intramuscular Suspension PFIZER COVID-19 MRNA 2020-05-04 Completed [facility] VACCINATION 00:00:00 [facility] PFIZER COVID-19 MRNA 2020-05-04 Completed [facility] VACCINATION 00:00:00 [facility] [employer] 2020-04-13 Completed [facility] COVID-19 Vacc 30 00:00:00 MCG/0.3ML Intramuscular Suspension PFIZER COVID-19 MRNA 2020-04-13 Completed [facility] VACCINATION 00:00:00 [facility] [employer] COVID-19 MRNA 2020-04-13 Completed [facility] VACCINATION 00:00:00 [facility] FLUCELVAX QUAD PF 2019-10-[address] 00:[facility] FLUCELVAX QUAD PF 2019-10-[address] 00:[facility]:00 Hospital FLUCELVAX QUAD PF 2019-04-[address] 00:00:00 Hospital FLUCELVAX QUAD PF 2019-04-[address] 00:[facility]:00 [facility] Influenza, high dose 2017-12-03 [facility] seasonal, 00:00:00 preservative-free FLUZONE HIGH-DOSE PF 2017-12-03 Completed [facility] 00:[facility]:00 [facility] FLUZONE HIGH-DOSE PF 2017-12-03 Completed [facility] 00:[facility]:00 Hospital pneumococcal 2017-05-[address] [facility] mcgrath 13-valent vaccine 15:03:00 pneumococcal 2017-05-[address] [facility] mcgrath 13-valent vaccine 15:03:00 Pneumococcal 2017-05-07 Completed [facility]:00[facility] Pneumococcal 2017-05-07 Completed [facility] Prevnar 13 2017-03-01 Completed [facility] Intramuscular 14:06:00 Suspension Pneumococcal 2017-03-01 Completed [facility] 13-Valent 00:00:00 [facility] Pneumococcal 2017-03-01 Completed [facility] Conjug[facility] 13-Valent 00:00:00 [facility] Vital Signs Vital Name Observation Time Observation Value Comments Source Systolic blood 2020-12-09 130 mm[Hg] [facility] 18:[facility]00 [facility] Diastolic blood 2020-12-09 80 mm[Hg] [place] [facility] pressure 18:50:00 [facility] Heart rate 2020-12-09 84 /min [facility] 18:50:00 [facility] Body temperature 2020-12-09 37.06 Sybil [facility] 18[facility]50:00 [facility] Respiratory rate 2020-12-09 20 /min [facility] 18[facility]00 [facility] [facility] Oxygen saturation 2020-12-09 94 /min [facility] Arterial blood 18:50:00 [facility] by Pulse oximetry [place] Body height 2020-12-09 177.8 cm [facility] 18:04:00 [facility] Body weight 2020-12-09 87.091 kg [facility] 18:04:00 [facility] BMI 2020-12-09 27.55 kg/m2 [place] [facility] 18:04:00 [facility] Weight 2020-06-24 208 [lb_av] [facility] 13:09:00 Body mass index 2020-06-24 29.01 kg/m2 [facility] (BMI) [Ratio] 13:09:00 Body temperature 2020-06-24 96.4 [degF] Method: [facility] 13:09:00 Temporal Heart Rate 2020-06-24 79 /min Location: R [facility] 13:09:00 Brachial Artery; Quality: Normal Respiratory rate 2020-06-24 22 /min Quality: Normal [facility] 13:09:00 O2 SAT 2020-06-24 92 % Source: RA [facility] 13:09:00 Systolic blood 2020-06-24 130 mm[Hg] Location: RUE; [facility] pressure 13:09:00 Position: Sitting Diastolic blood 2020-06-24 76 mm[Hg] [facility]: RUE[facility] pressure 13:09:00 Position: Sitting Body height 2020-06-24 71 [in_us] [facility] 13:09:00 Systolic blood 2020-04-01 126 mm[Hg] Location: LUE; [facility] pressure 13:34:00 Position: Sitting Diastolic blood 2020-04-01 80 mm[Hg] Location: LUE[facility] pressure 13:34:00 Position: Sitting Body height 2020-04-01 71 [in_us] [facility] 13:34:00 Weight 2020-04-01 219 [lb_av] [facility] 13:34:00 Body mass index 2020-04-01 30.54 kg/m2 [facility] (BMI) [Ratio] 13:34:00 Body temperature 2020-04-01 97.2 [degF] Method: [facility] 13:34:00 Temporal Heart Rate 2020-04-01 81 /min Location: L [facility] 13:34:00 Brachial Artery; O2 SAT 2020-04-01 93 % Source: RA [facility] 13:34:00 Systolic blood 2020-02-05 131 mm[Hg] Location: RUE; [facility] pressure 13:36:00 Position: Sitting Diastolic blood 2020-02-05 74 mm[Hg] Location: RUE; [facility] pressure 13:36:00 Position: Sitting Body height 2020-02-05 71 [in_us] [facility] 13:36:00 Weight 2020-02-05 210.375 [lb_av] [facility] 13:36:00 Body mass index 2020-02-05 29.34 kg/m2 [facility] (BMI) [Ratio] 13:36:00 Body temperature 2020-02-05 99.2 [degF] Method: [facility] 13:36:00 Temporal Heart Rate 2020-02-05 93 /min Location: R [facility] 13:36:00 Brachial Artery; Quality: Normal Respiratory rate 2020-02-05 22 /min Quality: Normal [facility] 13:36:00 O2 SAT 2020-02-05 91 % Source: RA [facility] 13:36:00 Systolic blood 2019-11-04 99 mm[Hg] Location: RUE[facility] pressure 10:52:00 Position: Sitting Diastolic blood 2019-11-04 63 mm[Hg] Location: RUE[facility] pressure 10:52:00 Position: Sitting Weight 2019-11-04 200.25 [lb_av] [facility] 10:52:00 Body mass index 2019-11-04 27.93 kg/m2 [facility] (BMI) [Ratio] 10:52:00 Body temperature 2019-11-04 98.8 [degF] Method: [facility] 10:52:00 Temporal Heart Rate 2019-11-04 83 /min Location: R [facility] 10:52:00 Brachial Artery; Respiratory rate 2019-11-04 16 /min Quality: Normal [facility] 10:52:00 O2 SAT 2019-11-04 96 % [facility] 10:52:00 Height 2019-04-08 172.72 cm [facility] 19:20:00 Weight 2019-04-08 [facility] 19:20:00 BMI Calculated 2019-04-08 [facility] 19:20:00 Temperature Oral 2019-03-09 97.8 F [facility] He rmann (F) 21:26:00 Heart Rate 2019-03-09 [facility] 21:26:00 Respitory Rate 2019-03-09 [facility] 21:26:00 Systolic (mm Hg) 2019-03-09 [facility] 21:26:00 Diastolic (mm Hg) 2019-03-09 [facility] ermann 21:26:00 Temperature Oral 2019-03-09 97.8 F [facility] (F) 16:50:00 Heart Rate 2019-03-09 [facility] 16:50:00 Respitory Rate 2019-03-09 [facility] [...] (F) 14:00:00 Temperature Oral 2018-05-18 98.2 F [facility] Hector rmann (F) 07:12:00 Heart Rate 2018-05-18 [facility] [...] [facility] greer 20:29:00 Height 2018-05-16 175.26 cm [facility] 22:48:00 Weight 2018-05-16 [facility] 22:48:00 BMI Calculated 2018-05-16 [facility] 22:48:00 BP Systolic 2018-05-08 144 mm[Hg] Location: RUE; [facility] 14:15:00 Position: Sitting BP Diastolic 2018-05-08 101 mm[Hg] Location: RUE; [facility] 14:15:00 Position: Sitting Height 2018-05-08 71 [in_us] [facility] 14:15:00 Weight 2018-05-08 212.375 [lb_av] [facility] 14:15:00 Body Mass Index 2018-05-08 29.62 kg/m2 [facility] Calculated 14:15:00 Temperature 2018-05-08 97.9 [degF] Method: Oral [facility] 14:15:00 Heart Rate 2018-05-08 67 /min Quality: Normal [facility] 14:15:00 Respiration Rate 2018-05-08 19 /min Quality: Normal [facility] 14:15:00 O2 SAT 2018-05-08 95 % Source: [facility] 14:15:00 BP Systolic 2018-05-07 140 mm[Hg] Location: RUE; [facility] 09:29:00 Position: Sitting BP Diastolic 2018-05-07 83 mm[Hg] Location: RUE; [facility] 09:29:00 Position: Sitting Height 2018-05-07 68 [in_us] [facility] 09:29:00 Weight 2018-05-07 212 [lb_av] [facility] 09:29:00 Body Mass Index 2018-05-07 32.23 kg/m2 [facility] Calculated 09:29:00 Temperature 2018-05-07 96.9 [degF] Method: Oral [facility] 09:29:00 Heart Rate 2018-05-07 69 /min [facility] 09:29:00 Systolic (mm Hg) 2018-05-06 [facility] rmann 20:45:00 Diastolic (mm Hg) 2018-05-06 [facility] H ermann 20:45:00 Respitory Rate 2018-05-06 [facility] 20:45:00 Systolic (mm Hg) 2018-05-06 [facility] 20:30:00 Diastolic (mm Hg) 2018-05-06 [facility] H ermann 20:30:00 Respitory Rate 2018-05-06 [facility] 20:30:00 Systolic (mm Hg) 2018-05-06 [facility] He rmann 20:16:00 Diastolic (mm Hg) 2018-05-06 [facility] ermann 20:16:00 Respitory Rate 2018-05-06 [facility] 20:16:00 Weight 2018-05-06 [facility] 16:17:00 BMI Calculated 2018-05-06 [facility] 16:17:00 Height 2018-05-06 172.72 cm [facility] Oleksandr n 16:17:00 Weight 2018-04-24 212.5 [lb_av] [facility] 11:40:00 Body Mass Index 2018-04-24 32.31 kg/m2 [facility] Calculated 11:40:00 Temperature 2018-04-24 98 [degF] Method: Oral [facility] 11:40:00 Heart Rate 2018-04-24 97 /min Quality: Normal [facility] 11:40:00 Respiration Rate 2018-04-24 18 /min Quality: Normal [facility] 11:40:00 O2 SAT 2018-04-24 97 % Source: [facility] 11:40:00 BP Systolic 2018-04-24 138 mm[Hg] Location: [facility] 11:40:00 Position: Sitting BP Diastolic 2018-04-24 89 mm[Hg] Location: [facility] 11:40:00 Position: Sitting Height 2018-04-24 68 [in_us] [facility] 11:40:00 BP Systolic 2017-12-12 144 mm[Hg] Location: L[facility]; [facility] 13:43:00 Position: Sitting BP Diastolic 2017-12-12 96 mm[Hg] Location: [place]; [facility] 13:43:00 Position: Sitting Height 2017-12-12 68 [in_us] [facility] 13:43:00 Weight 2017-12-12 206.5 [lb_av] [facility] 13:43:00 Body Mass Index 2017-12-12 31.4 kg/m2 [facility] Calculated 13:43:00 Temperature 2017-12-12 98.5 [degF] Method: [facility] 13:43:00 Tympanic Heart Rate 2017-12-12 97 /min Location: L [facility] 13:43:00 Brachial Artery; Quality: Normal Respiration Rate 2017-12-12 16 /min Quality: Normal [facility] 13:43:00 O2 SAT 2017-12-12 96 % Source: RA [facility] 13:43:00 BP Systolic 2017-12-03 151 mm[Hg] Location: LUE; [facility] 13:16:00 Position: Sitting BP Diastolic 2017-12-03 83 mm[Hg] Location: LUE; [facility] 13:16:00 Position: Sitting Weight 2017-12-03 206.125 [lb_av] [facility] 13:16:00 Body Mass Index 2017-12-03 29.58 kg/m2 [facility] Calculated 13:16:00 Temperature 2017-12-03 97.8 [degF] Method: [facility] 13:16:00 Tympanic Heart Rate 2017-12-03 71 /min Location: L [facility] 13:16:00 Brachial Artery; Respiration Rate 2017-12-03 14 /min Quality: Normal [facility] 13:16:00 O2 SAT 2017-12-03 96 % Source: RA [facility] 13:16:00 BP Systolic 2017-11-05 132 mm[Hg] Location: LUE; [facility] 13:41:00 Position: Sitting BP Diastolic 2017-11-05 90 mm[Hg] Location: LUE; [facility] 13:41:00 Position: Sitting Height 2017-11-05 70 [in_us] [facility] 13:41:00 Weight 2017-11-05 211.5 [lb_av] [facility] 13:41:00 Body Mass Index 2017-11-05 30.35 kg/m2 [facility] Calculated 13:41:00 Temperature 2017-11-05 98.2 [degF] Method: [facility] 13:41:00 Tympanic Heart Rate 2017-11-05 116 /min Location: L [facility] 13:41:00 Brachial Artery; Respiration Rate 2017-11-05 16 /min Quality: Normal [facility] 13:41:00 O2 SAT 2017-11-05 95 % Source: RA [facility] 13:41:00 BP Systolic 2017-10-23 168 mm[Hg] Location: LUE; [facility] 13:07:00 Position: Sitting BP Diastolic 2017-10-23 94 mm[Hg] Location: LUE; [facility] 13:07:00 Position: Sitting Height 2017-10-23 70 [in_us] [facility] 13:07:00 Weight 2017-10-23 213 [lb_av] [facility] 13:07:00 Body Mass Index 2017-10-23 30.56 kg/m2 [facility] Calculated 13:07:00 Temperature 2017-10-23 98.3 [degF] Method: [facility] 13:07:00 Tympanic Heart Rate 2017-10-23 110 /min Location: L [facility] 13:07:00 Brachial Artery; Quality: Normal Respiration Rate 2017-10-23 16 /min Quality: Normal [facility] 13:07:00 O2 SAT 2017-10-23 96 % Source: [facility] 13:07:00 BP Systolic 2017-10-15 136 mm[Hg] Location: LUE; [facility] 13:08:00 Position: Sitting BP Diastolic 2017-10-15 83 mm[Hg] Location: [place]; [facility] 13:08:00 Position: Sitting Weight 2017-10-15 210.5 [lb_av] [facility] 13:08:00 Body Mass Index 2017-10-15 30.2 kg/m2 [facility] Calculated 13:08:00 Temperature 2017-10-15 97.9 [degF] Method: [facility] 13:08:00 Tympanic Heart Rate 2017-10-15 109 /min Location: L [facility] 13:08:00 Brachial Artery; Respiration Rate 2017-10-15 12 /min Quality: Normal [facility] 13:08:00 O2 SAT 2017-10-15 96 % Source: [facility] 13:08:00 BP Systolic 2017-08-30 141 mm[Hg] Location: LUE; [facility] 13:19:00 Position: Sitting BP Diastolic 2017-08-30 95 mm[Hg] Location: LUE; [facility] 13:19:00 Position: Sitting Height 2017-08-30 70 [in_us] [facility] 13:19:00 Weight 2017-08-30 210 [lb_av] [facility] 13:19:00 Body Mass Index 2017-08-30 30.13 kg/m2 [facility] Calculated 13:19:00 Temperature 2017-08-30 98.5 [degF] Method: [facility] 13:19:00 Tympanic Heart Rate 2017-08-30 103 /min Location: L [facility] 13:19:00 Brachial Artery; Quality: Irregular Respiration Rate 2017-08-30 16 /min Quality: Normal [facility] 13:19:00 O2 SAT 2017-08-30 96 % Source: RA [facility] 13:19:00 BP Systolic 2017-05-31 146 mm[Hg] [facility] 13:13:00 BP Diastolic 2017-05-31 82 mm[Hg] [facility] 13:13:00 Height 2017-05-31 70 [in_us] [facility] 13:13:00 Weight 2017-05-31 215 [lb_av] [facility] 13:13:00 Body Mass Index 2017-05-31 30.85 kg/m2 [facility] Calculated 13:13:00 Temperature 2017-05-31 98.2 [degF] [facility] 13:13:00 Heart Rate 2017-05-31 87 /min [facility] 13:13:00 Respiration Rate 2017-05-31 14 /min [facility] 13:13:00 O2 SAT 2017-05-31 95 % [facility] 13:13:00 Systolic (mm Hg) 2017-05-19 [facility] 02:00:00 Diastolic (mm Hg) 2017-05-19 [facility] 02:00:00 Respitory Rate 2017-05-19 [facility] [...] 18:00:00 Temperature Oral 2017-05-18 98.3 F [facility] (F) 18:00:00 Height 2017-05-15 175.26 cm [...] 10:00:00 Temperature Oral 2017-05-07 98.4 F [facility] Hector r[facility] (F) 10:00:00 Heart Rate 2017-05-07 [facility] [...] 23:56:00 BP Systolic 2017-03-01 144 mm[Hg] Location: [place] 13:09:00 Position: Sitting BP Diastolic 2017-03-01 90 mm[Hg] Location: JUAN MIGUEL; [facility] 13:09:00 Position: Sitting Height 2017-03-01 70 [in_us] [facility] 13:09:00 Weight 2017-03-01 212.125 [lb_av] [facility] 13:09:00 Body Mass Index 2017-03-01 30.44 kg/m2 [facility] Calculated 13:09:00 Temperature 2017-03-01 97.8 [degF] Method: [facility] 13:09:00 Tympanic Heart Rate 2017-03-01 69 /min Location: L [facility] 13:09:00 Brachial Artery; Quality: Normal Respiration Rate 2017-03-01 12 /min Quality: Normal [facility] 13:09:00 O2 SAT 2017-03-01 97 % Source: [facility] 13:09:00 Weight 2017-02-23 [facility] 16:24:00 BMI [...] n 09:42:00 Temperature Oral 2016-03-17 98.1 F [facility] (F) 09:42:00 Respitory Rate 2016-03-17 [facility] [...] [facility] greer 14:15:00 Height 2016-02-15 177.8 cm Justin Leggett n 14:15:00 Height 2016-02-08 177.8 cm Justin Leggett n 17:06:00 BMI Calculated 2016-02-08 [facility] 17:06:00 Procedures Procedure Date / Time Performing Clinician Source Performed PSA, ULTRASENSITIVE 2021-03-16 19:20:00 [facility] ESTRADIOL LEVEL 2021-03-16 19:20:00 Addison Vance spital CBC WITH PLATELET AND 2021-03-16 19:20:00 [facility] DIFFERENTIAL TESTOSTERONE LEVEL, FREE 2021-03-16 19:20:00 Addison Vance [facility] AND TOTAL, MALE PSA, TOTAL AND FREE 2021-03-16 18:54:00 [facility] [id number] CONSENT 2020-12-09 05:01:00 Doctor Unassigned, [facility] TESTOSTERONE LEVEL, FREE 2020-09-09 19:21:00 Addison Vance [facility] AND TOTAL, MALE CBC WITH PLATELET AND 2020-09-09 19:21:00 [facility] DIFFERENTIAL ESTRADIOL LEVEL 2020-09-09 19:21:00 Addison Vance spital PSA, ULTRASENSITIVE 2020-09-09 19:21:00 [facility] [id number] 2020-06-16 00:00:00 [facility] CBC WITH PLATELET AND 2020-06-09 16:35:00 [facility] DIFFERENTIAL ESTRADIOL LEVEL 2020-06-09 16:35:00 [facility] TESTOSTERONE LEVEL, FREE 2020-06-09 16:35:00 Addison Vance [facility] AND TOTAL, MALE PSA, ULTRASENSITIVE 2020-06-09 16:35:00 [facility] [QL] VITAMIN B12 2020-04-01 00:00:00 [facility] [Q] VITAMIN D, 1,25 2020-04-01 00:00:00 [facility] DIHYDROXY LC/MS/MS [QL] TSH, 3RD GENERATION 2020-04-01 00:00:00 [facility] W/REFLEX TO FT4 [QL] VITAMIN B6 2020-04-01 00:00:00 [facility] [QL] ACETYLCHOLINE 2020-04-01 00:00:00 [facility] RECEPTOR BINDING ANTIBODY [QL] ACETYLCHOLINE 2020-04-01 00:00:00 [facility] RECEPTOR BLOCKING ANTIBODY [QL] ACETYLCHOLINE 2020-04-01 00:00:00 [facility] RECEPTOR MODULATING ANTIBODY [QL] CREATINE KINASE, 2020-04-01 00:00:00 [facility] TOTAL XRAY Shoulder series 2020-03-30 00:00:00 [facility] [id number] Physical Therapy 2019-11-27 00:00:00 [facility] Complete PFTs w/DLCO and 2019-11-04 00:00:00 [facility] Lung Volumes 6 Minute Walk Test 2019-11-04 00:00:00 [facility] MRI Spine cervical wo 2019-10-21 00:00:00 [facility] contrast [id number] MRI Spine thoracic wo 2019-10-21 00:00:00 [facility] contrast [id number] MRI Spine lumbar wo 2019-10-21 00:00:00 [facility] contrast [id number] [U] XRAY SPINE 2018-12-26 00:00:00 [facility] LUMBOSACRAL 2 OR 3 VWS [id number] Physical Therapy 2018-12-26 00:00:00 [facility] Physical Therapy 2018-09-25 00:00:00 [facility] [U] XRAY SHOULDER MIN 2 2018-08-15 00:00:00 [facility] VWS LEFT [id number] [U] XRAY SHOULDER MIN 2 2018-07-04 00:00:00 [facility] VWS RIGHT [id number] Post Op Promise 29 Survey 2018-05-29 00:00:00 [facility] Post Op Promis 29 Survey 2018-05-29 00:00:00 [facility] [QLH] VITAMIN B1, WHOLE 2018-05-07 00:00:00 [facility] BLOOD [QLH] VITAMIN B6 2018-05-07 00:00:00 [facility] [QLH] VITAMIN B12 2018-05-07 00:00:00 [facility] [QLH] TSH, 3RD GENERATION 2018-05-07 00:00:00 [facility] W/REFLEX TO FT4 [QLH] FOLATE, SERUM 2018-05-07 00:00:00 [facility] [H] Immunofixation 2018-05-07 00:00:00 [facility] Eletrophoresis [H] Immunofixation 2018-05-07 00:00:00 [facility] Eletrophoresis Urine [QLH] NORMA PANEL, 2018-05-07 00:00:00 [facility] COMPREHENSIVE [QLH] HEPATITIS PANEL 2018-05-07 00:00:00 [facility] Arthrocentesis, 2018-04-22 20:14:50 [facility] aspiration and/or injection, major joint or bursa (eg, shoulder, hip, knee, subacromial bursa); without ultrasound guidance [U] XRAY SHOULDER MIN 2 2018-04-15 00:00:00 [facility] VWS LEFT [id number] MR Shoulder w/wo contrast 2018-04-15 00:00:00 [facility] [id number] Physical Therapy 2018-04-02 00:00:00 [facility] [U] XRAY SPINE CERVICAL 2 2018-04-02 00:00:00 [facility] OR 3 VWS [id number] [U] XRAY SPINE 2018-04-02 00:00:00 [facility] LUMBOSACRAL 2 OR 3 VWS [id number] MRI Spine cervical wo 2018-04-02 00:00:00 [facility] contrast [id number] MRI Spine thoracic wo 2018-04-02 00:00:00 [facility] contrast 20002 MRI Spine lumbar wo 2018-04-02 00:00:00 [facility] contrast [id number] [U] XRAY SPINE 2018-04-01 00:00:00 [facility] LUMBOSACRAL 2 OR 3 VWS [id number] [H] Allergens, Inhalants, 2017-12-03 00:00:00 [facility] Comprehensive Profile Physical Therapy 2017-07-12 00:00:00 [facility] [U] XRAY SPINE 2017-07-11 00:00:00 [facility] LUMBOSACRAL 2 OR 3 VWS [id number] [H] Allergens, Inhalants, 2017-05-31 00:00:00 [facility] Comprehensive Profile CT Chest wo contrast 2017-05-31 00:00:00 [facility] [id number] [U] XRAY SHOULDER MIN 2 2017-04-30 00:00:00 [facility] VWS RIGHT [id number] [U] XRAY SHOULDER MIN 2 2017-04-02 00:00:00 [facility] VWS RIGHT [id number] Operation 2016-02-22 06:00:00 [facility] History of Rotator Cuff [facility] Repair History of Capsulotomy [facility] Left Foot First [facility]TP History of Hemicolectomy [facility] History of Lumbar [facility] Vertebral Fusion History of Neuroplasty [facility] Left Thumb History of Lower Back [facility] Surgery Lumbar Disc History of Cataract [facility] Surgery History of Shoulder [facility] History of Carpal tunnel [facility] of [facility]onsillectomy [facility] History of Colonoscopy [facility] Resection of colon [facility] greer Replacement [facility] Shoulder repair [facility] Colon [facility] operation<sup>2</sup> Plan of Care Planned Activity Planned Date Details Comments Source Future Scheduled 2021-11-23 HEPATITIS B VACCINES [facility] Test 19:51:02 (1 of 3 - 3-dose series) [code = HEPATITIS B VACCINES (1 of 3 - 3-dose series)] Future Scheduled 2021-11-23 SHINGLES VACCINES (1 [facility] Test 19:51:02 of 2) [code = SHINGLES VACCINES (1 of 2)] Future Scheduled 2021-11-23 65+ [facility] 19:51:02 VACCINE (2 - PPSV23 or PCV20) [code = 65+ PNEUMOCOCCAL VACCINE (2 - PPSV23 or PCV20)] Future Scheduled 2021-11-23 COVID-19 VACCINE (3 - [facility] Test 19:51:02 Pfizer risk series) [code = COVID-19 VACCINE (3 - Pfizer risk series)] Future Scheduled 2021-11-23 INFLUENZA VACCINE [facility] Test 19:51:02 [code = INFLUENZA VACCINE] Future Scheduled 2021-04-08 SHINGLES VACCINES [facility] Test 08:06:56 (#1) [code = SHINGLES VACCINES (#1)] Future Scheduled 2021-04-08 [facility] Test 08:06:56 malignant neoplasm of lung (procedure) [code = 358782380] Future Scheduled 2021-04-08 65+ [facility]OCO[facility] [facility] Test 08:06:56 VACCINE (1 of 2 - PPSV23) [code = 65+ PNEUMOCOCCAL VACCINE (1 of 2 - PPSV23)] Future Scheduled 2021-04-08 INFLUENZA VACCINE [facility] Test 08:06:56 [code = INFLUENZA VACCINE] Future Scheduled 2021-04-08 COVID-19 VACCINE ([facility] - [facility] 08:06:56 Booster for Pfizer series) [code = COVID-19 VACCINE (3 - Booster for Pfizer series)] Diagnostic Test 2020-03-30 XRAY Shoulder series [facility] Pending 00:00:00 [id number] [code = 11776] Diagnostic Test 2019-11-04 Complete PFTs w/DLCO [facility] Pending 00:00:00 and Lung Volumes [code = Complete PFTs w/DLCO and Lung Volumes] Diagnostic Test 2019-11-04 6 Minute Walk Test [facility] Pending 00:00:00 [code = 6 Minute Walk Test] Encounters Start End Encounter Admission Attending Care Care Encounter Source Date/Time Date/Time Type Type Clinicians Facility Department ID 2021-09-[address] [facility] [id number] [place] 14:47:28 [id number] Health 2021-08-[address] [facility] [id number] [place] 11:30:03 [id number] [facility] 2021-04-[address] [facility] [id number] [place] 10:20:23 Health 2020-07-31 Outpatient HOMER, [facility] [id number] [place] 04:01:17 JOSE Beasley 2019-03-07 Inpatient U [facility] [id number] 15:28:00 [facility] 2021-04-07 2021-04-07 Office PARUL Gonsales [facility] [id number] [place] 10:00:00 11:17:57 Visit Agnieszka ORTHO AND [id number] Health SPINE [id number] MEDICAL [id number] PLAZA 2 2021-03-29 2021-03-29 Orders Martha, 1.2.840.1 [id number] Methodi 00:00:00 00:00:00 Only Addison [address]247.1.[address] 3.430.2.7 Hospit a .3.265579 l .8 2021-03-29 2021-03-29 Orders Martha, 1.2.840.1 [id number] Methodi 00:00:00 00:00:00 Only Addison 23893.1.[address] 3.430.2.7 Hospit a .3.156802 l .8 2021-03-16 2021-03-16 Office Martha, 1.2.840.1 [id number] Methodi 13:00:00 13:05:43 Visit Addison 20794.1.[address] 3.430.2.7 Hospit a .3.887292 l .8 2021-03-16 2021-03-16 Office Martha, 1.2.840.1 [id number] Methodi 12:43:35 13:05:43 Visit Addison 85977.1.[address] 3.430.2.7 Hospit a .3.667955 l .8 2021-03-16 2021-03-16 [facility] [id number] [address] [place] [address] 00:00:00 00:00:[address] 2021-03-16 2021-03-16 Travel 1.2.840.1 [id number] [id number] Methodi 00:00:00 00:00:[address] 3.430.2.7 0.2.7.3.698 Ho spita .3.865304 084.8 l .8 2021-03-16 2021-03-16 Travel 1.2.840.1 1.2.812.420 [id number] Methodi 00:00:00 00:00:[address] 3.430.2.7 0.2.7.3.698 Ho spita .3.612981 084.8 l .8 2021-03-15 2021-03-15 Reffaisal Vance, 1.2.840.1 [id number] Methodi 00:00:00 00:00:[address] 3.430.2.7 Hospit a .3.456278 l .8 2021-03-15 2021-03-15 Refill Martha, 1.2.840.1 [id number] Methodi 00:00:00 00:00:[address] 3.430.2.7 Hospit a .3.237175 l .8 2021-01-26 2021-01-26 Outpatient LUMA Alfaro [facility] [id number] [facility] 13:21:00 13:21:[address] [facility] 2020-12-09 2020-12-09 Outpatient Darion [facility] [id number] [facility] 13:00:00 13:00:00 PAM son of [facility] 2020-12-09 2020-12-09 Nurse Therapy, Adc Covid Infusion [facility] [id number] [facility] 11:41:34 12:41:34 Visit Pam Whit[place] [id number] [place] [facility] [id number] [facility] [address] 2020-12-09 2020-12-09 Orders Doctor MICHELLE 1.2.840.114 [id number] Univers 00:00:00 00:00:00 Only Unassigned, MELO 350.1.13.10 [place]y [place] [facility] 4.2.7.2.686 Ethan as [id number] [facility] [address] Branch 2020-12-06 2020-12-06 Telephone Martha, 1.2.840.1 [id number] Methodi 00:00:00 00:00:[address] 3.430.2.7 Hospit a .3.626830 l .8 2020-11-22 2020-11-22 Refill Martha, 1.2.840.1 [id number] Methodi 00:00:00 00:00:[address] 3.430.2.7 Hospit a .3.817071 l .8 2020-09-24 2020-09-24 Orders Cabello, 1.2.840.1 [id number] Methodi 00:00:00 00:00:00 Only Rasheeda 15294.1.[address] 3.430.2.7 Hospit a .3.420849 l .8 2020-09-23 2020-09-23 Telephone Martha, 1.2.840.1 [id number] Methodi 00:00:00 00:00:[address] 3.430.2.7 Hospit a .3.558238 l .8 2020-09-09 2020-09-09 Office Martha, 1.2.840.1 [id number] Methodi 10:42:24 12:31:46 Visit [place] 03718.1.[address] 3.430.2.7 Hospit a .3.968176 l .8 2020-09-09 2020-09-09 Travel 1.2.840.1 1.2.072.706 7209 [id number] Methodi 00:00:00 00:00:[address] 3.430.2.7 0.2.7.3.698 Ho spita .3.951224 084.8 l .8 2020-07-28 2020-08-20 Inpatient LUMA MerinoCL OUTD [id number] [facility] 11:00:00 22:28:43 Viraj 96 [facility] 2020-07-08 2020-07-08 Orders Sudheer, 1.2.840.1 [id number] Methodi 00:00:00 00:00:00 Only Cinda [address]19.1.[address] 3.430.2.7 Hospit a .3.551579 l .8 2020-07-08 2020-07-08 Telephone Martha, 1.2.840.1 [id number] 2100 [id number] Methodi 00:00:00 00:00:[address] 3.430.2.7 Hospit a .3.163592 l .8 2020-07-06 2020-07-06 Refill Martha, 1.2.840.1 [id number] 0984 Methodi 00:00:00 00:00:[address] 3.430.2.7 Hospit a .3.062326 l .8 2020-06-24 2020-06-24 AppointPARUL Magallanes [facility] 704 [id number] [place] 13:00:00 13:00:00 t; JO[facility] 2020-06-22 2020-06-22 Orders Sudheer, 1.2.840.1 [id number] 2100 [id number] Methodi 00:00:00 00:00:00 Only Cinda 72371.1.[address] 3.430.2.7 Hospit a .3.052607 l .8 2020-06-19 2020-06-19 Inpatient Raslan, HCACL HCACL [id number] [facility] 04:33:13 04:33:13 Viraj 64 [facility] 2020-06-09 2020-06-14 Office Martha, 1.2.840.1 [id number] Methodi 11:06:24 12:06:25 Visit Addison 63183.1.[address] 3.430.2.7 Hospit a .3.239877 l .8 2020-06-09 2020-06-09 Travel 1.2.840.1 1.2.741.280 1525 732144 Methodi 00:00:00 00:00:[address] 3.430.2.7 0.2.7.3.698 Ho spita .3.919883 084.8 l .8 2020-05-04 2020-06-08 Clinical 1.2.840.1 [id number] 09226 Methodi 12:40:25 05:44:[address] 3.430.2.7 Hospit a .3.094254 l .8 2020-05-04 2020-05-04 PARUL Caro [facility] [id number] [place] 15:15:00 15:15:00 t; Devin PIZANO [facility] daniel LITTLE M.D. 2020-05-04 2020-05-04 Travel 1.2.840.1 1.2.832.271 1755 [id number] Methodi 00:00:00 00:00:[address] 3.430.2.7 0.2.7.3.698 Ho spita .3.997911 084.8 l .8 2020-04-13 2020-04-13 Outpatient [facility] [id number] [place]nel[place] 00:00:00 00:00:[address] 2020-04-01 2020-04-01 Appointmen PARUL BROWN Gvpvmplkk - 182 [id number] [place] 13:30:00 13:30:00 t; FRED BROWN [facility] Devin Alfaro M.D. [place] 2020-03-10 2020-03-10 Outpatient MARTHA, [facility] [id number] [place] 00:00:00 00:00:00 ADDISON [address] 2020-02-05 2020-02-05 Appointmen PARUL ROMANO [facility] [id number] [place] 13:20:00 13:20:00 t; JOSE ROMANO lty - Physici RUCKSHANDA M.D. [place] ans, M.D. 2020-01-13 2020-01-13 [facility] [id number] [place] 00:00:00 00:00:00 SEAMUS [address] 2020-01-06 2020-01-06 Outpatient FARACH, [facility] [id number] [place] 00:00:00 00:00:00 SEAMUS [address] 2019-11-27 2019-11-27 AppointPARUL Garcia [facility] [id number] [place] 10:30:00 10:30:00 t; AGNIESZKA GONSALES Physici SHAH-NAWAZ M.D. ans, M.D. 2019-11-27 2019-11-27 AppointPARUL Garcia [facility] [id number] [place] 10:00:00 10:00:00 t; AGNIESZKA GONSALES, [facility] Jason BOONE M.D. [facility] Devin sanchez [place] 2019-11-19 2019-11-20 Outpatient [facility] [id number] Memoria 13:45:00 04:59:[address] 2019-11-19 2019-11-20 Outpatient [facility] [id number] Memoria 13:45:00 04:59:[address] 2019-11-19 2019-11-19 Outpatient Majid, [facility] [id number] 08:45:00 23:59:00 [facility] 2019-11-19 2019-11-19 Outpatient Majid, [facility] [id number] 08:45:00 23:59:00 [place] [id number] 2019-11-19 2019-11-19 Outpatient MAJID, [facility] PUL [id number] [facility] 08:45:00 08:45:00 [facility] 2019-11-18 2019-11-19 Outpatient FARACH, [facility] [id number] [place] 00:00:00 00:00:00 SEAMUS 190 Method i 2019-11-18 2019-11-18 Outpatient [facility], [facility] [id number] [place] 00:00:00 00:00:00 SEAMUS 158 Method i 2019-11-18 2019-11-18 [facility] [id number] [place] 00:00:00 00:00:00 SEAUMS [address] 2019-11-04 2019-11-04 Appointdomo ROMANO UTP Multispecia [id number] [place] 09:40:00 09:40:00 t; JOES ROMANO lty - Jason sanchez M.D. 2019-11-03 2019-11-04 Outpatient [facility] [id number] Memoria 17:34:00 04:59:00 r Doddridge 18 l [facility] 2019-11-03 2019-11-04 Outpatient [facility] [id number] Memoria 17:34:00 04:59:00 r Doddridge 18 l [facility] 2019-11-03 2019-11-03 Outpatient Santamanjula, MHSE MHSE [id number] 12:34:00 23:59:00 Agnieszka 18 2019-11-03 2019-11-03 Outpatient KYLIEMAYITO, MHSE MHSE [id number] MH 12:34:00 23:59:00 AGNIESZKA [facility] 2019-10-30 2019-10-30 Outpatient COH COH PDPFEIM ZOL COH 00:00:00 00:00:00 [id number] 2019-10-23 2019-10-23 Outpatient MARTHA, [facility] [id number] [place]nel[place] 00:00:00 00:00:00 ADDISON [address] 2019-10-21 2019-10-21 PARUL Schmidt [facility] [id number] [place] 10:15:00 10:15:00 t; AGNIESZKA GONSALES [facility] Jason sanchez M.D. [place] 2019-09-19 2019-09-19 Outpatient [facility] [id number] [place]nel[place] 00:00:00 00:00:[address] 2019-09-18 2019-09-18 Outpatient [facility] [id number] [place] 00:00:00 00:00:[address] 2019-09-18 2019-09-18 Outpatient FARACH, [facility] [id number] [place] 00:00:00 00:00:00 SEAMUS [address] 2019-09-17 2019-09-17 Outpatient [facility] [id number] [place] 00:00:00 00:00:[address] 2019-09-16 2019-09-16 Outpatient [facility] [id number] [place] 00:00:00 00:00:[address] 2019-09-16 2019-09-16 Outpatient CASSANDRAACH, [facility] [id number] [place] 00:00:00 00:00:00 SEAMUS [address] 2019-09-15 2019-09-15 Outpatient [facility] [id number] [place] 00:00:00 00:00:[address] 2019 2019 Outpatient [facility] [id number] [place] 00:00:00 00:00:[address] 2019-09-11 2019-09-11 Outpatient [facility] [id number] [place] 00:00:00 00:00:[address] 2019-09-11 2019-09-11 Outpatient CASSANDRAACH, [facility] [id number] [place]nel[place] 00:00:00 00:00:00 SEAMUS [address] 2019-09-10 2019-09-10 Outpatient [facility] [id number] [place] 00:00:00 00:00:[address] 2019-09-09 2019-09-09 Outpatient [facility] [id number] [place] 00:00:00 00:00:[address] 2019-09-08 2019-09-08 Outpatient [facility] [id number] [place] 00:00:00 00:00:[address] 2019-09-05 2019-09-05 Outpatient [facility] [id number] [place] 00:00:00 00:00:[address] 2019-09-04 2019-09-04 Outpatient [facility] [id number] [place] 00:00:00 00:00:[address] 2019-09-04 2019-09-04 Outpatient CASSANDRAACH, [facility] [id number] [place]nel[place] 00:00:00 00:00:00 SEAMUS [address] 2019-09-04 2019-09-04 Outpatient FARACH, [facility] [id number] [place]nel[place] 00:00:00 00:00:00 SEAMUS [address] 2019-09-03 2019-09-03 Outpatient [facility] [id number] [place]nel[place] 00:00:00 00:00:[address] 2019-09-03 2019-09-03 Outpatient FARACH, [facility] [id number] [place]nel[place] 00:00:00 00:00:00 SEAMUS [address] 2019-09-02 2019-09-02 Outpatient [facility] [id number] [place] 00:00:00 00:00:[address] 2019-09-01 2019-09-01 Outpatient [facility] [id number] [place] 00:00:00 00:00:[address] 2019-08-28 2019-08-28 Outpatient [facility] [id number] [place] 00:00:00 00:00:[address] 2019-08-28 2019-08-28 Outpatient FARACH, [facility] [id number] [place]nel[place] 00:00:00 00:00:00 SEAMUS [address] 2019-08-27 2019-08-27 Outpatient [facility] [id number] [place] 00:00:00 00:00:[address] 2019-08-26 2019-08-26 Outpatient [facility] [id number] [place] 00:00:00 00:00:[address] 2019-08-25 2019-08-26 Outpatient FARACH, [facility] [id number] [place] 00:00:00 00:00:00 SEAMUS [address] 2019-08-25 2019-08-25 Outpatient [facility] [id number] [place] 00:00:00 00:00:[address] 2019-08-22 2019-08-22 Outpatient [facility] [id number] [place] 00:00:00 00:00:[address] 2019-08-21 2019-08-21 Outpatient [facility] [id number] [place] 00:00:00 00:00:[address] 2019-08-21 2019-08-21 Outpatient FARACH, [facility] [id number] [place]nel[place] 00:00:00 00:00:00 SEAMUS [address] 2019-08-20 2019-08-20 Outpatient FARACH, [facility] [id number] [place]nel[place] 00:00:00 00:00:00 SEAMUS [address] 2019-08-12 2019-08-12 Outpatient FARACH, [facility] [id number] [place] 00:00:00 00:00:00 SEAMUS [address] 2019-08-01 2019-08-01 Outpatient FARACH, [facility] [id number] [place] 00:00:00 00:00:00 SEAMUS [address] 2019-07-30 2019-07-30 Outpatient FARACH, [facility] [id number] [place] 00:00:00 00:00:00 SEAMUS [address] 2019-07-24 2019-07-24 Outpatient FARACH, [facility] [id number] [place]nel[place] 00:00:00 00:00:00 SEAMUS [address] 2019-06-18 2019-06-18 Outpatient FARACH, [facility] [id number] [place] 00:00:00 00:00:00 SEAMUS [address] 2019-05-06 2019-05-06 Outpatient FARACH, [facility] [id number] [place] 00:00:00 00:00:00 SEAMUS [address] 2019-04-29 2019-04-29 Outpatient FARACH, [facility] [id number] [place] 00:00:00 00:00:00 SEAMUS [address] 2019-04-29 2019-04-29 Outpatient FARACH, [facility] [id number] [place] 00:00:00 00:00:00 SEAMUS [address] 2019-04-21 2019-04-21 Outpatient SATKUNASIVA [facility] [id number] [place] 00:00:00 00:00:00 Juan F, DEYVI 105 Method i 2019-04-08 2019-04-09 Outpatient [facility]Flavo [facility] [id number] Memoria 18:26:00 05:59:00 r Indra Pablo l [facility] 2019-04-08 2019-04-09 Outpatient [facility]Flavo [facility] [id number] Memoria 18:26:00 05:59:00 darion hernandez [facility] 2019-04-08 2019-04-08 Outpatient Nasser, MHSE [place] [id number] 12:26:00 23:59:00 Sarmad Middleton 17 2019-04-08 2019-04-08 Outpatient MHSE PUL [id number] MH 12:26:00 12:26:00 [facility] ilia [facility] 2019-03-25 2019-03-25 Outpatient MARTHA [facility] [id number] [place] 00:00:00 00:00:00 ADDISON 981 Method i 2019-03-25 2019-03-25 Outpatient MARTHA [facility] [id number] [place]nel[place] 00:00:00 00:00:00 ADDISON 980 Method i 2019-03-25 2019-03-25 Outpatient MARTHA [facility] [id number] [place]nel[place] 00:00:00 00:00:00 ADDISON 904 Method i 2019-03-07 2019-03-09 Inpatient nullFlavo [facility] [id number] Memoria 21:28:00 23:55:00 r Doddridge 47 l [facility] 2019-03-07 2019-03-09 Inpatient nullFlavo [facility] [id number] Memoria 21:28:00 23:55:00 r Doddridge 47 l [facility] 2019-03-07 2019-03-09 Outpatient [facility] MH[facility] [id number] 15:28:00 17:55:00 Jeremy Schmitt [facility] 2018-12-26 2018-12-26 Appointdomo GONSALES [facility] Orthopedics [id number] [place] 13:15:00 13:15:00 t; AGNIESZKA GONSALES [facility] AGNIESZKA sanchez M.D. [facility] 2018-12-19 2018-12-19 Outpatient MARTHA [facility] [id number] [place]nel[place] 00:00:00 00:00:00 ADDISON 940 Method i 2018-08-15 2018-08-15 Leslie LITTLE [facility] Orthopedics [id number] [place] 10:30:00 10:30:00 t; Devin PIZANO [facility] Jason LITTLE, Sports Pablito Cowart M.D. [facility] [address] 2018-07-04 2018-07-04 Leslie LITTLE [facility] [id number] [place] 10:30:00 10:30:00 t; Devin PIZANO [facility] Jony LITTLE ans JAMES, [address] M.D. 2018-05-30 2018-05-30 Leslie LITTLE [facility] [id number] [place] 10:45:00 10:45:00 t; Devin PIZANO [facility] Ph Jony Ortiz ans JAMES, [address] M.D. 2018-05-17 2018-05-18 Inpatient nullFlavo [facility] [id number] Memoria 13:18:00 15:50:00 r Indra 16 [facility] 2018-05-17 2018-05-18 Inpatient nullFlavo [facility] [id number] Memoria 13:18:00 15:50:00 r Indra 16 [facility] 2018-05-17 2018-05-18 Outpatient Anabel [facility] [id number] 07:18:00 09:50:00 Harinder Webster 2018-05-17 2018-05-17 [facility] [id number] [place] 08:00:00 08:00:00 t; Devin PIZANO Ph daniel Ortiz M.D. 2018-05-08 2018-05-08 [facility] NAJMA [facility] Neurology [id number] [place] 13:45:00 13:45:00 t; NABIL AVILA, Devin Colon M.D. 2018-05-07 2018-05-07 [facility] ALDA [facility] Neurology [id number] [place] 10:30:00 10:30:00 t; Devin JENNINGS y daniel Culver M.D. 2018-05-06 2018-05-06 Bedded nullFlavo [facility] [id number] Memoria 15:14:00 21:05:00 Outpatient r Indra 14 l [facility] 2018-05-06 2018-05-06 Bedded nullFlavo [facility] [id number] Memoria 15:14:00 21:05:00 Outpatient r Indra 14 [facility] 2018-05-06 2018-05-06 [facility] [id number] 09:14:00 15:05:00 Nabil Engel 2018-05-02 2018-05-03 Outpatient [facility]Flavo [facility] [id number] Memoria 17:37:00 05:59:00 r Indra 15 [facility] 2018-05-02 2018-05-03 Outpatient [facility]Flavo [facility] [id number] Memoria 17:37:00 05:59:00 r Indra 15 [facility] 2018-05-02 2018-05-02 Outpatient Banki, MHSE MHSE [id number] 11:37:00 23:59:00 Nabil 15 2018-05-02 2018-05-02 Outpatient Banki, MHSE MHSE [id number] 11:37:00 23:59:00 Nabil 15 2018-04-30 2018-04-30 Appointmen ANABEL, [facility] [id number] [place] 10:00:00 10:00:00 t; Devin PIZANO [place] [facility] Jony Ortiz ans JAMES, [address] M.D. 2018-04-24 2018-04-25 Outpatient nullFlavo [facility] [id number] Memoria 16:09:00 05:59:00 r Indra 13 [facility] 2018-04-24 2018-04-25 Outpatient nullFlavo [facility] [id number] Memoria 16:09:00 05:59:00 r Doddridge 13 [facility] 2018-04-24 2018-04-24 Outpatient Banki, MHSE MHSE [id number] 10:09:00 23:59:00 Nabil 13 2018-04-24 2018-04-24 Outpatient Banki, MHSE MHSE [id number] 10:09:00 23:59:00 Nabil 13 2018-04-24 2018-04-24 Appointmen NAJMA, [id number] [place] 11:00:00 11:00:00 t; NABIL AVILA, ken and Ph parisa FERRER M.D. Vascular daniel [facility] 2018-04-22 2018-04-23 Outpt Diag nullFlavo [facility] [id number] Memoria 17:07:00 05:59:00 Services r Outpatient 05 l Imaging [facility] 2018-04-22 2018-04-23 Outpt Diag nullFlavo [facility] [id number] Memoria 17:07:00 05:59:00 Services r Outpatient 05 l Imaging [facility] 2018-04-22 2018-04-22 Outpatient LANCE Little [facility] [id number] 11:07:00 23:59:00 Harinder Ziyad [facility] 2018-04-22 2018-04-22 Out[facility] Anabel[facility] [id number] 11:07:00 23:59:00 Harinder Lackey [facility] 2018-04-18 2018-04-19 Outpt Diag nullFlavo [facility] [id number] Memoria 20:50:00 05:59:00 Services r Outpatient 04 l Imaging [facility] 2018-04-18 2018-04-19 Outpt Diag nullFlavo [facility] [id number] Memoria 20:50:00 05:59:00 Services r Outpatient 04 l Imaging [facility] 2018-04-18 2018-04-18 Outpatient Anabel, 2.16.840. 2.16.840.1. [id number] 14:50:00 23:59:00 Harinder [id number] 04 Darin [id number] 5.127 2018-04-18 2018-04-18 Outpatient Anabel, 2.16.840. 2.16.840.1. [id number] 14:50:00 23:59:00 Harinder [id number] 04 Darin [id number] 5.127 2018-04-16 2018-04-17 Outpt Diag nullFlavo [facility] [id number] Memoria 17:00:00 05:59:00 Services r Outpatient 03 l Imaging [facility] 2018-04-16 2018-04-17 Outpt Diag nullFlavo [facility] [id number] Memoria 17:00:00 05:59:00 Services r Outpatient 03 l Imaging [facility] 2018-04-16 2018-04-16 Outpatient Kyliedamasod, MHOIP MHOIP [id number] 11:00:00 23:59:00 Riky-Red 03 2018-04-16 2018-04-16 Outpatient Dodwad, MHOIP MHOIP [id number] 11:00:00 23:59:00 Riky-Red 03 2018-04-15 2018-04-[address] [facility] ANABEL [facility] [id number] [place] 11:30:00 11:30:00 t; Devin PIZANO [facility] Ph Jony Ortiz ans JAMES, Arben B M.D. 2018-04-02 2018-04-[address] [facility] [id number] [place] 14:00:00 14:00:00 t; AGNIESZKA GONSALES, Saundra and Jason BOONE M.D. [facility] Devin sanchez Medical [place] 2017-12-12 2017-12-12 [facility] [id number] [place] 14:00:00 14:00:00 t; CHEY, Multi-Speci Ph parisa [facility] AM[facility], alonzo WILSON M.D. [facility] PREM Arben 2A MMableDMable 2017-12-03 2017-12-03 [facility] [id number] [place] 13:00:00 13:00:00 t; MEGGAN HARRY M.D. Multi-Speci [facility] [address] 2017-11-05 2017-11-05 [facility] [place] [id number] [place] 13:30:00 13:30:00 t; MEGGAN HARRY M.D. Multi-Speci [place] 2017-10-23 2017-10-23 [facility] [id number] [place] 13:00:00 13:00:00 t; MEGGAN HARRY M.D. Multi-Speci [facility] [address] 2017-10-15 2017-10-15 [facility] [id number] [place] 13:00:00 13:00:00 t; MEGGAN HARRY M.D. Multi-Speci [place], [address] 2017-08-30 2017-08-30 [facility] [id number] [place] 13:00:00 13:00:00 t; MEGGAN HARRY M.D. Multi-Speci [facility] [address] 2017-07-12 2017-07-12 [facility] ILDA [facility] [id number] [place] 14:30:00 14:30:00 t; AGNIESZKA GONSALES, Orthopedics Physici AGNIESZKA sanchez M.D. 2017-06-28 2017-06-28 [facility] [id number] [place] 11:30:00 11:30:00 t; Devin PIZANO [facility] Ph Jony Ortiz ans JAMES, [address] M.D. 2017-06-07 2017-06-07 [facility] [id number] [place] 10:30:00 10:30:00 t; Devin PIZANO [facility] Ph Jony Ortiz ans JAMES, [address] M.D. 2017-06-01 2017-06-02 Outpt Diag nullFlavo [facility] [id number] Memoria 19:49:00 05:59:00 Services r Outpatient 02 l Imaging [facility] 2017-06-01 2017-06-02 Outpt Diag nullFlavo [facility] [id number] Memoria 19:49:00 05:59:00 Services r Outpatient 02 l Imaging [facility] 2017-06-01 2017-06-01 Outpatient Harry, MHOIP MHOIP [id number] 13:49:00 23:59:00 Meggan Leary Nancy 2017-06-01 2017-06-01 Outpatient Harry, MHOIP MHOIP [id number] 13:49:00 23:59:00 Meggan Cruz 2017-05-31 2017-05-31 [facility] [id number] [place] 13:00:00 13:00:00 t; MEGGAN HARRY M.D. Multi-Speci Jason BRODERICK M.D. [facility] [address] 2017-05-24 2017-05-24 Leslie [facility] [id number] [place] 10:15:00 10:15:00 t; Devin PIZANO [facility] Ph Jony Ortiz ans JAMES, [address] M.D. 2017-05-15 2017-05-19 Inpatient nullFlavo [facility] [id number] Memoria 14:43:00 03:07:00 r Indra 11 [facility] 2017-05-15 2017-05-19 Inpatient nullFlavo [facility] [id number] Memoria 14:43:00 03:07:00 r Indra 11 [facility] 2017-05-15 2017-05-18 Outpatient Anabel [facility] [id number] 08:43:00 21:07:00 Harinder Hailee Webster 2017-05-15 2017-05-15 Appointdomo LITTLE, [facility] UTP [id number] [place] 08:00:00 08:00:00 t; Devin PIZANO Ph daniel Ortiz M.D. 2017-05-14 2017-05-14 Appointdomo LITTLE, [facility] UTP [id number] [place] 11:00:00 11:00:00 t; Devin PIZANO Ph daniel Ortiz M.D. 2017-05-01 2017-05-07 Inpatient nullFlavo [facility] [id number] Memoria 15:53:00 20:15:00 r Doddridge 10 [facility] 2017-05-01 2017-05-07 Inpatient nullFlavo [facility] [id number] Memoria 15:53:00 20:15:00 r Indra 10 [facility] 2017-05-01 2017-05-07 Outpatient Anabel [facility] [id number] 09:53:00 14:15:00 Harinder Lilia Webster 2017-05-01 2017-05-01 Appointdomo LITTLE, PARUL [facility] [id number] [place] 08:30:00 08:30:00 t; Devin PIZANO Ph daniel Ortiz M.D. 2017-04-30 2017-04-30 PARUL Caro [facility] [id number] [place] 10:30:00 10:30:00 t; Devin PIZANO [facility] Ph Jony Ortiz ans JAMES, [address] M.D. 2017-04-13 2017-04-13 Day nullFlavo [facility] [id number] Memoria 17:24:00 23:20:00 Surgery r Indra 19 [facility] 2017-04-13 2017-04-13 Day nullFlavo [facility] [id number] Memoria 17:24:00 23:20:00 Surgery r Doddridge 19 [facility] 2017-04-13 2017-04-13 Outpatient Anabel, [facility] [id number] 11:24:00 17:20:00 Harinder Cari [facility] 2017-04-13 2017-04-13 Emergency nullFlavo [facility] [id number] Memoria 12:25:00 17:00:00 r Doddridge 09 [facility] 2017-04-13 2017-04-13 Emergency nullFlavo [facility] [id number] Memoria 12:25:00 17:00:00 r Indra 09 [facility] 2017-04-13 2017-04-13 Emergency nullFlavo [facility] [id number] Memoria 09:10:00 11:16:00 r Doddridge 08 [facility] 2017-04-13 2017-04-13 Emergency nullFlavo [facility] [id number] Memoria 09:10:00 11:16:00 r Doddridge 08 [facility] 2017-04-13 2017-04-13 Outpatient Lavonaugustina, [facility] [id number] 06:25:00 11:00:00 Ebelechukwu 09 [place] 2017-04-13 2017-04-13 Outpatient Wynne, [facility] [id number] 03:10:00 05:16:00 Abundio Sada Tammieamon 2017-04-02 2017-04-02 Appointmen ANABEL [facility] [id number] [place] 11:00:00 11:00:00 t; Devin PIZANO [facility] Ph ysici Jony LITTLE ans JAMES, [address] M.D. 2017-03-18 2017-03-19 Emergency nullFlavo [facility] [id number] Memoria 23:55:00 04:11:00 r Doddridge 07 [facility] 2017-03-18 2017-03-19 Emergency nullFlavo [facility] [id number] Memoria 23:55:00 04:11:00 r Indra [address] [place] [address] 2017-03-18 2017-03-18 Outpatient Juanito [facility] [id number] 17:55:00 22:11:00 Jaimie Donnelly 2017-03-05 2017-03-05 Appointmen ANABEL [facility] [id number] [place] 10:30:00 10:30:00 t; Devin PIZANO [facility] Ph Jony Ortiz ans JAMES, [address] M.D. 2017-03-01 2017-03-01 Appointmen PARUL HARR[place] [id number] [place] 13:00:00 13:00:00 t; MEGGAN HARRY M.D. [facility] Jason BRODERICK M.D. [facility], [address] 2017-02-23 2017-02-24 Outpatient nullFlavo [facility] [id number] Memoria 15:00:00 05:59:00 r Indra 05 [facility] 2017-02-23 2017-02-24 [facility] [id number] Memoria 15:00:00 05:59:[address] 2017-02-23 2017-02-23 Outpatient Kamryn [facility] [id number] 09:00:00 23:59:00 Meggan 05 Nancy 2017-02-22 2017-02-22 Appointmen PARUL GONSALES UTP [id number] UT 10:45:00 10:45:00 t; AGNIESZKA GONSALES Physici SHAH-NAWAZ M.D. ans, M.D. 2017-02-05 2017-02-05 Appointmen PARUL LITTLE UTP [id number] UT 08:30:00 08:30:00 t; Devin PIZANO daniel Ortiz M.D. 2017-01-29 2017-01-29 Emergency [facility] [id number] Memoria 10:02:00 13:08:00 r Doddridge 06 [facility] 2017-01-29 2017-01-29 Emergency [facility] [id number] Memoria 10:02:00 13:08:00 r Doddridge 06 [facility] 2017-01-29 2017-01-29 Outpatient SCOTT Johansen [facility] [id number] 04:02:00 07:08:00 2017-01-26 2017-01-27 Inpatient [facility] [id number] Memoria 11:19:00 18:51:00 r Doddridge 04 [facility] 2017-01-26 2017-01-27 Inpatient [facility] [id number] Memoria 11:19:00 18:51:00 r Doddridge 04 l [facility] 2017-01-26 2017-01-27 Kj Little [facility] [id number] 06:19:00 13:51:00 Harinder Murdockew 2017-01-26 2017-01-26 [facility], [facility] [id number] UT 10:00:00 10:00:00 t; Devin PIZANO Ph daniel Ortiz M.D. 2017-01-08 2017-01-08 [facility] [id number] [place] 10:30:00 10:30:00 t; Devin PIZANO [facility] Ph Joyn Ortiz ans JAMES, [address] M.D. 2017-01-04 2017-01-04 [facility] ILDA[facility] [id number] UT 13:45:00 13:45:00 t; AGNIESZKA GONSALES Physici SHAH-NAWAZ M.D. ans, M.D. 2016-12-26 2016-12-26 [facility] KAMRYN, [facility] UTP [id number] UT 13:00:00 13:00:00 t; MEGGAN HARRY M.D. Physici SARA, M.D. ans 2016-08-24 2016-08-24 [facility] ILDA[facility] PARUL UTP [id number] UT 10:45:00 10:45:00 t; AGNIESZKA GONSALES Physici SHAH-NAWAZ M.D. ans, M.D. 2016-08-17 2016-08-17 [facility] ILDA[facility] PARUL UTP [id number] UT 10:45:00 10:45:00 t; AGNIESZKA GONSALES Physici SHAH-NAWAZ M.D. ans, M.D. 2016-06-13 2016-06-13 [facility] BOOGIE, PARUL UTP [id number] UT 10:30:00 10:30:00 t; RADHA HYMAN M.D. P hysici EVAN, M.D. ans 2016-05-25 2016-05-25 Appointmen ILDA, PARUL UTP [id number] UT 10:15:00 10:15:00 t; AGNIESZKA GONSALES Physici SHAH-NAWAZ M.D. ans, M.D. 2016-04-13 2016-04-13 AppointPARUL Garcia UTP [id number] UT 11:15:00 11:15:00 t; AGNIESZKA GONSALES Physici SHAH-NAWAZ M.D. ans, M.D. 2016-03-30 2016-03-30 AppointPARUL Garcia UTP [id number] UT 10:15:00 10:15:00 t; AGNIESZKA GONSALES Physici SHAH-NAWAZ M.D. ans, M.D. 2016-03-17 2016-03-24 Inpatient nullFlavo [facility] [id number] Memoria 23:46:00 16:30:00 Rehab r [facility] 02 [facility] 2016-03-17 2016-03-24 Inpatient nullFlavo [facility] [id number] Memoria 23:46:00 16:30:00 Rehab r [facility] 02 [facility] 2016-03-17 2016-03-24 Outpatient Piter, TIRR MHTIRR [id number] 17:46:00 10:30:00 Prathap Sapphire Drake 2016-02-21 2016-03-17 [facility] [id number] Memoria 11:09:00 22:45:00 r Doddridge 00 [facility] 2016-02-21 2016-03-17 Inpatient [facility] [id number] Memoria 11:09:00 22:45:00 r [address]dridge [address] [place] [address] 2016-02-21 2016-03-17 Outpatient Gabriela Og [facility] [id number] 05:09:00 16:45:00 A 00 2016-02-21 2016-02-21 Appointmen PARUL GONSALES UTP [id number] UT 07:30:00 07:30:00 t; AGNIESZKA GONSALES Physici SHAH-NAWAZ M.D. ans, M.D. 2016-02-15 2016-02-16 [facility]patient [facility] [id number] Memoria 14:08:00 05:59:00 r Indra [facility] 2016-02-15 2016-02-16 Outpatient nullFlavo [facility] [id number] Memoria 14:08:00 05:59:[address] 2016-02-15 2016-02-15 Outpatient Henri Ford [facility] [id number] 08:08:00 23:59:00 Thomas 01 2016-02-15 2016-02-15 AppointPARUL Garcia [id number] UT 11:15:00 11:15:00 t; AGNIESZKA GONSALES Physici SHAH-NAWAZ M.D. ans, M.D. 2016-01-18 2016-01-18 AppointPARUL Garcia UTP [id number] UT 13:15:00 13:15:00 t; AGNIESZKA GONSALES Physici SHAH-NAWAZ M.D. ans, M.D. 2016-01-10 2016-01-11 Outpt Diag nullFlavo [facility] [id number] Memoria 14:23:00 04:59:00 Services r Outpatient 01 l Imaging [facility] 2016-01-10 2016-01-11 Outpt Diag nullFlavo [facility] [id number] Memoria 14:23:00 04:59:00 Services r Outpatient 01 l Imaging [facility] 2016-01-10 2016-01-10 Outpatient Ilda [facility] [id number] 09:23:00 23:59:00 Agnieszka 01 2016-01-04 2016-01-04 [facility] PARUL GONSALES UTP [id number] UT 10:45:00 10:45:00 t; AGNIESZKA GONSALES Physici SHAH-NAWAZ M.D. ans, M.D. 2015-12-30 2015-12-30 AppointPARUL Garcia UTP [id number] UT 10:15:00 10:15:00 t; AGNIESZKA GONSALES Physici SHAH-NAWAZ M.D. ans, M.D. 2015-11-18 2015-11-18 AppointPARUL Garcia UTP [id number] UT 09:15:00 09:15:00 t; DODWAD, OGJason GREGORY M.D., M.D. 2015-11-10 2015-11-11 Outpt Diag nullFlavo [facility] [id number] Memoria 18:54:00 04:59:00 Services r Outpatient 00 l Imaging Indra [place] 2015-11-10 2015-11-11 Outpt Diag nullFlavo [facility] [id number] Memoria 18:54:00 04:59:00 Services r Outpatient 00 l Imaging Doddridge [place] 2015-11-10 2015-11-10 Outpatient ANALY Gonsales [facility] [id number] 13:54:00 23:59:00 Agnieszka 00 M 2015-11-03 2015-11-03 [facility] [id number] UT 08:20:00 08:20:00 t; AGNIESZKA GONSALES Physici SHAH-NAWAZ M.D. ans, M.D. 2015-10-28 2015-10-28 [facility] PARUL GONSALES [facility] [id number] UT 09:30:00 09:30:00 t; AGNIESZKA GONSALES Physici SHAH-NAWAZ M.D. ans, M.D. 2015-07-14 2015-07-14 [facility] PARUL MEDRANO UTP [id number] UT 10:30:00 10:30:00 t; [facility]. Results Test Description Test Time Test Comments Results Result Comments Source PSA, total and free 2021-03-17 15:10:00 Test Item Value Reference Range Interpretation Comme nts PSA (test code = 0.1 ng/mL 0-4 Jassi ECLIA methodology.According 2857-1) to the [employer] [employer], Se rum PSA shoulddecrease and remain at undetectable le vels after radicalprostate ctomy. The AUA defines biochem ical recurrence as an initialPSA v alue 0.2 ng/mL or greater followe d by a subsequent confirmatoryPSA value 0.2 ng/mL or greater.Values obtained with different assay methods or kits cannot be usedi nterchangeably. Results cannot be interpreted as absolute eviden ceof the presence or absence of m alignant disease. PSA, free (test code 0.02 ng/mL N/A Jassi E CLIA methodology. = 12371-8) PSA, free percent 20.0 % The table below lists the (test code = 93841-9) probab ility of prostate cancer formen with non -suspicious LEA results and tot al PSA between4 and 10 ng/mL, by pa tient age (Marty et al, ABHINAV 199 8,279:1542). % Free PSA 50-64 yr 65 -75 yr 0.00-10.00% 56% 55% 10.01-1 5.00% 24% 35% 15.01-20.00% 17 % 23% 20.01-25.00% 10% 20% >25.00 % 5% 9%Please note: Marty et al did not make specific recomm endations regarding the use of perc ent free PSA for any other popul ation of men. GARRET (test code = GARRET) Performed at: [facility] [id number] Director: Cristian Valdez MD, Phone: [phone] [facility], total and [id number] 15:10:00 Test Item Value Reference Range Interpretation Comments PSA (test code 0.1 ng/mL 0.0-4.0 Jassi ECLIA = 2857-1) methodology.Acc ording to the [employer] [employer], Se rum PSA shoulddecrease and remain at undet ectable levels after radicalprostate ctomy. The AUA defines biochemical rec urrence as an initialPS A value 0.2 ng/mL or gr eater followed by a subsequent confirmatoryPSA value 0.2 ng/mL or greater.Values obtained with different assay methods or kits cannot be usedinterchange ably. Results cannot be interpreted as absolute eviden ceof the presence or absence of noemi gnant disease. PSA, free (test 0.02 ng/mL N/A Jassi ECLIA code = 13631-8) methodology. PSA, free 20.0 % The table below lists percent (test the probabilit y of code = 42227-1) prostate can cer formen with non-suspic ious LEA results and total PSA between4 an d 10 ng/mL, by patie nt age (Marty et al , ABHINAV 1998,279:1542). % Free PSA 50-64 yr 65 -75 yr 0.00-10.00% 56% 55% 10.01-15.00% 24 % 35% 15.01-20.00% 17 % 23% 20.01-25.00% 10 % 20% >25.00% 5% 9 %Please note: aMrty et al did not make sp ecific recommendations regarding the u se of percent free PS A for any other popul ation of men. GARRET (test code Performed at: 01 = GARRET) - [facility] [id number] [place], [place] [id number] Director: Cristian Valdez MD, Phone: [phone] [facility] Asymptomatic IH [id number] 14:32:00 Test Item Value Reference Range Interpretation Comments COVID 19 Asymptomatic IH AG (test NEGATIVE NEGATIVE code = COVNONPUIAG) Novel Coronavirus 2018 [id number] 01:29:00 Test Item Value Reference Range Interpretation Comments Novel Coronavirus Negative Negative Positive r esults are 2019 Inhouse (test indicativ e of the presence code = COVNONPUI) ofSARS-CoV -2 RNA, clinical correlation wit h patient historyand othe r diagnostic info rmation is necessary to determinepatien t infection status. Positiv e results do not rule out bacterial infection or co -infection with other viru ses. Negative result s do not preclude SARS-C oV-2 infection andsh ould not be used as the sade e basis for patient managementdecis ions. Negative result s must be combined with otherclinical observations, p atient history, and epidemiological information . Detection of SARS-CoV-2 RNA may be affe cted bysample collec tion methods, storag e conditions, and /or stageof infection. Kayleen l RNA mutations, vacc inations, antiviraltherap eutics, antibiotics, chemotherapeuti c orimmunosuppres melissa drugs have not been e valuated for effectson d etection. Results are for the identification of SARS-CoV-2 RNA usingthe Giiv M2000 Sy stem under the FDA Emergen cy UseAuthorizatio n. The testing is perf ormed by marko quiroga in the procedures for the Gonzalez M2000 molecular diagnostic SARS-CoV-2 assa y in vitro. BASIC METABOLIC [id number] 12:22:00 Test Item Value Reference Range Interpretation Comments SODIUM (test code = NA) 143 mEq/L 134-147 N POTASSIUM (test code = 4.2 mEq/L 3.4-5.0 N K) CHLORIDE (test code = 104 mEq/L 100-108 N CL) CARBON DIOXIDE (test 33 mEq/l 21-33 N code = CO2) ANION GAP (test code = 10 0-20 N GAP) GLUCOSE (test code = 126 mg/dL 70-110 H GLU) BLOOD UREA NITROGEN 10 mg/dL 7-18 N (test code = BUN) GLOMERULAR FILTRATION 64.9 70-80 L Units of measure = RATE (test code = GFR) ml/mi n/1.73 m2 CREATININE (test code = 1.1 mg/dL 0.6-1.3 N CREAT) CALCIUM (test code = 9.7 mg/dL 8.0-10.5 N CA) PROTHROMBIN [id number] 12:12:00 Test Item Value Reference Range Interpretation Comments PROTHROMBIN TIME 11.3 SECONDS 9.3-12.9 N PATIENT (test code = PTP) INTERNATIONAL NORMAL 1.0 0.8-1.2 N TARGET INR BY RATIO (test code = INDICATIO N Indication INR) INR1. Prophylax is of venous thrombos is 2.0 - 3.0 (orthoped ic surgery), Proph ylaxis of venous throm bosis (other than hig h-risk surgery), Treat ment of Deep Vein Thrombosis/Pulm onary Embolism, Preve ntion of systemic emb olism - Tissue heart va lves, Acute Myocardia l Infarction (to prevent systemic emboli sm), Valvular heart disease, Atrial Fibrillation, Bileaflet mecha nical valve in aortic position.2. Mec hanical prosthetic valv es (high risk), 2. 5 - 3.5 Presence of Lup us Anticoagulant o r Antiphospholipi d Antibodies, Pre vention of systemic emb olism - Acute Myocardia l Infarction (to prevent recurrent infar ct). CBC W/AUTO [id number] 12:06:00 Test Item Value Reference Range Interpretation Comments WHITE BLOOD CELL (test code = 8.0 x10 3/uL 4.5-11.0 N WBC) RED BLOOD CELL (test code = 4.97 x10 6/uL 4.00-5.60 N RBC) HEMOGLOBIN (test code = HGB) 12.7 g/dL 12.5-16.9 N HEMATOCRIT (test code = HCT) 43.3 % 37.5-50.7 N MEAN CELL VOLUME (test code = 87.1 fL 81.0-99.0 N MCV) MEAN CELL HGB (test code = MCH) 25.6 pg 27.0-33.0 L MEAN CELL HGB CONCETRATION 29.3 g/dL 33.0-37.0 L (test code = MCHC) RED CELL DISTRIBUTION WIDTH CV 16.5 % 11.5-14.5 H (test code = RDW) RED CELL DISTRIBUTION WIDTH SD 52.8 fL 37.0-54.0 N (test code = RDW-SD) PLATELET COUNT (test code = 293 x10 3/uL 150-400 N PLT) MEAN PLATELET VOLUME (test code 8.9 fL 7.0-9.0 N = MPV) NEUTROPHIL % (test code = NT%) 78.6 % 56.0-77.0 H IMMATURE GRANULOCYTE % (test 0.7 % 0.0-2.0 N code = IG%) LYMPHOCYTE % (test code = LY%) 11.7 % 14.0-32.0 L MONOCYTE % (test code = MO%) 7.2 % 4.8-9.0 N EOSINOPHIL % (test code = EO%) 1.2 % 0.3-3.7 N BASOPHIL % (test code = BA%) 0.6 % 0.0-2.0 N NUCLEATED RBC % (test code = 0.0 % 0-0 N NRBC%) NEUTROPHIL # (test code = NT#) 6.29 x10 3/uL 2.0-7.6 N IMMATURE GRANULOCYTE # (test 0.06 x10 3/uL 0.00-0.03 H code = IG#) LYMPHOCYTE # (test code = LY#) 0.94 x10 3/uL 1.0-3.8 L MONOCYTE # (test code = MO#) 0.58 x10 3/uL 0.1-0.8 N EOSINOPHIL # (test code = EO#) 0.10 x10 3/uL 0.0-0.2 N BASOPHIL # (test code = BA#) 0.05 x10 3/uL 0.0-0.2 N NUCLEATED RBC # (test code = 0.00 x10 3/uL 0.0-0.1 N NRBC#) MANUAL DIFF REQUIRED (test code NO = MDIFF) [id number] 18:27:00 Test Item Value Reference Range Interpretation Comments GLUBED (test code = 154 MG/DL 70-110 H Performe d by certified GLUBED) 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 [facility] CBC W/AUTO [id number] 10:09:00 Test Item Value Reference Range Interpretation Comments WHITE BLOOD CELL (test code = 8.7 x10 3/uL 4.5-11.0 N WBC) RED BLOOD CELL (test code = 4.09 x10 6/uL 4.00-5.60 N RBC) HEMOGLOBIN (test code = HGB) 10.9 g/dL 12.5-16.9 L HEMATOCRIT (test code = HCT) 37.2 % 37.5-50.7 L MEAN CELL VOLUME (test code = 91.0 fL 81.0-99.0 N MCV) MEAN CELL HGB (test code = MCH) 26.7 pg 27.0-33.0 L MEAN CELL HGB CONCETRATION 29.3 g/dL 33.0-37.0 L (test code = MCHC) RED CELL DISTRIBUTION WIDTH CV 14.7 % 11.5-14.5 H (test code = RDW) RED CELL DISTRIBUTION WIDTH SD 49.5 fL 37.0-54.0 N (test code = RDW-SD) PLATELET COUNT (test code = 238 x10 3/uL 150-400 N PLT) MEAN PLATELET VOLUME (test code 9.5 fL 7.0-9.0 H = MPV) NEUTROPHIL % (test code = NT%) 81.9 % 56.0-77.0 H IMMATURE GRANULOCYTE % (test 0.5 % 0.0-2.0 N code = IG%) LYMPHOCYTE % (test code = LY%) 9.0 % 14.0-32.0 L MONOCYTE % (test code = MO%) 7.4 % 4.8-9.0 N EOSINOPHIL % (test code = EO%) 0.9 % 0.3-3.7 N BASOPHIL % (test code = BA%) 0.3 % 0.0-2.0 N NUCLEATED RBC % (test code = 0.0 % 0-0 N NRBC%) NEUTROPHIL # (test code = NT#) 7.13 x10 3/uL 2.0-7.6 N IMMATURE GRANULOCYTE # (test 0.04 x10 3/uL 0.00-0.03 H code = IG#) LYMPHOCYTE # (test code = LY#) 0.78 x10 3/uL 1.0-3.8 L MONOCYTE # (test code = MO#) 0.64 x10 3/uL 0.1-0.8 N EOSINOPHIL # (test code = EO#) 0.08 x10 3/uL 0.0-0.2 N BASOPHIL # (test code = BA#) 0.03 x10 3/uL 0.0-0.2 N NUCLEATED RBC # (test code = 0.00 x10 3/uL 0.0-0.1 N NRBC#) MANUAL DIFF REQUIRED (test code NO = MDIFF) - XR CHEST 1 [id number] 09:49:00 [facility] : 1940 Sex: M FAX: Mark Weller [phone] [place]: GC St: ADM FAX: Valentin Galindo MD [phone] FAX: Viraj Corrales MD [phone] Name: GENARO KAUR [facility] : 1940 Age/S: 79/M [address] [place] [address] Unit #: [id number] Loc: Anya[address] [place] [address] Phys: Mark Weller Acct: [id number] Date: Status: ADM IN PHONE #: [phone] Exam Date: 06/17/2020616 FAX #: [phone] Reason: POST WATCHMAN EXAMS: CPT CODE: [id number] XR CHEST 1 V [id number] EXAM: XR CHEST 1 VIEW DATE: 06/17/2020 5:00 AM : 1940; Age: 79 years y/o Male INDICATION: POST WATCHMAN COMPARISON: June 14, 2020 TECHNIQUE: AP chest. IMPRESSION: Lines, tubes and hardware: Left atrial appendage closure device is faintly noted. Heart, mediastinum and lungs: Heart and hilar vasculature is normal. Minimal right mid lung and left basilar atelectatic changes. No pleural effusion. SL: [id number] at 0949 Reported and signed by: Sukhdeep Whitfield D.O. CC: Mark Weller; Valentin Fish MD; Viraj Guzman MD Technologist: Janie Osei, RT(R); Ioana Allen RT(R) [facility] Date/Time/By: 06/17/2020 (0949) : By: [email or web address] Orig Print D/T: S: 06/17/2020 (7524) PAGE 1 Signed ReportCOMPREHENSIVE METABOLIC [id number] 07:42:00 Test Item Value Reference Range Interpretation Comments SODIUM (test code = NA) 139 mEq/L 134-147 N POTASSIUM (test code = 4.0 mEq/L 3.4-5.0 N K) CHLORIDE (test code = 102 mEq/L 100-108 N CL) CARBON DIOXIDE (test 31 mEq/l 21-33 N code = CO2) ANION GAP (test code = 10 0-20 N GAP) GLUCOSE (test code = 148 mg/dL 70-110 H GLU) BLOOD UREA NITROGEN 15 mg/dL 7-18 N (test code = BUN) GLOMERULAR FILTRATION 58.7 70-80 L Units of measure = RATE (test code = GFR) ml/mi n/1.73 m2 CREATININE (test code = 1.2 mg/dL 0.6-1.3 N CREAT) TOTAL PROTEIN (test 5.7 g/dL 6.4-8.2 L code = PROT) ALBUMIN (test code = 3.40 g/dL 3.4-5.0 N ALB) CALCIUM (test code = 8.3 mg/dL 8.0-10.5 N CA) BILIRUBIN TOTAL (test 0.50 mg/dL 0.0-1.0 N code = BILT) SGOT/AST (test code = 19 IUnit/L 15-37 N AST) SGPT/ALT (test code = < 7 IUnit/L 30-65 L ALT) ALKALINE PHOSPHATASE 80 IUnit/L 20-125 N TOTAL (test code = ALKP) [id number] 07:01:00 Test Item Value Reference Range Interpretation Comments GLUBED (test code = 138 MG/DL 70-110 H Performe d by certified GLUBED) 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 Prophylax is of venous thrombos is 2.0 - 3.0 (orthoped ic surgery), Proph ylaxis of venous throm bosis (other than hig h-risk surgery), Treat ment of Deep Vein Thrombosis/Pulm onary Embolism, Preve ntion of systemic emb olism - Tissue heart va lves, Acute Myocardia l Infarction (to prevent systemic emboli sm), Valvular heart disease, Atrial Fibrillation, Bileaflet mecha nical valve in aortic position.2. Mec hanical prosthetic valv es (high risk), 2. 5 - 3.5 Presence of Lup us Anticoagulant o r Antiphospholipi d Antibodies, Pre vention of systemic emb olism - Acute Myocardia l Infarction (to prevent recurrent infar ct). 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 [facility] [id number] 17:14:00 Test Item Value Reference Range Interpretation Comments ACT-ISTAT (test code 252 SEC 74-137 H Perform ed by certified = ACTI) 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 Positiv e results do not rule out bacterial infection or co -infection with other viru ses. Negative result s do not preclude SARS-C oV-2 infection andsh ould not be used as the sade e basis for patient managementdecis ions. Negative result s must be combined with otherclinical observations, p atient history, and epidemiological information . Detection of SARS-CoV-2 RNA may be affe cted bysample collec tion methods, storag e conditions, and /or stageof infection. Kayleen l RNA mutations, vacc inations, antiviraltherap eutics, antibiotics, chemotherapeuti c orimmunosuppres melissa drugs have not been e valuated for effectson d etection. Results are for the identification of SARS-CoV-2 RNA usingthe Giiv M2000 Sy stem under the FDA Emergen cy UseAuthorizatio n. The testing is perf ormed by personneltraine d in the procedures for the Giiv M2000 molecular diagnostic SARS-CoV-2 assa y in vitro. COMMENTS: NBASIC METABOLIC [id number] 11:35:00 Test Item Value Reference Range Interpretation Comments SODIUM (test code = NA) 141 mEq/L 134-147 N POTASSIUM (test code = 4.4 mEq/L 3.4-5.0 N K) CHLORIDE (test code = 101 mEq/L 100-108 N CL) CARBON DIOXIDE (test 34 mEq/l 21-33 H code = CO2) ANION GAP (test code = 11 0-20 N GAP) GLUCOSE (test code = 142 mg/dL 70-110 H GLU) BLOOD UREA NITROGEN 15 mg/dL 7-18 N (test code = BUN) GLOMERULAR FILTRATION 64.9 70-80 L Units of measure = RATE (test code = GFR) ml/mi n/1.73 m2 CREATININE (test code = 1.1 mg/dL 0.6-1.3 N CREAT) CALCIUM (test code = 9.9 mg/dL 8.0-10.5 N CA) [id number] 11:35:00 Test Item Value Reference Range Interpretation Comments PREALBUMIN (test code = PREALB) 30.7 mg/dL 16.0-40.0 N PROTHROMBIN [id number] 11:25:00 Test Item Value Reference Range Interpretation Comments PROTHROMBIN TIME 13.6 SECONDS 9.3-12.9 H PATIENT (test code = PTP) INTERNATIONAL NORMAL 1.2 0.8-1.2 N TARGET INR BY RATIO (test code = INDICATIO N Indication INR) INR1. Prophylax is of venous thrombos is 2.0 - 3.0 (orthoped ic surgery), Proph ylaxis of venous throm bosis (other than hig h-risk surgery), Treat ment of Deep Vein Thrombosis/Pulm onary Embolism, Preve ntion of systemic emb olism - Tissue heart va lves, Acute Myocardia l Infarction (to prevent systemic emboli sm), Valvular heart disease, Atrial Fibrillation, Bileaflet mecha nical valve in aortic position.2. Mec hanical prosthetic valv es (high risk), 2. 5 - 3.5 Presence of Lup us Anticoagulant o r Antiphospholipi d Antibodies, Pre vention of systemic emb olism - Acute Myocardia l Infarction (to prevent recurrent infar ct). - XR CHEST 2 [id number] 11:25:00 [facility] : 1940 Sex: M FAX: Viraj Corrales MD [phone] [place]: St: PRE Name: GENARO KAUR [facility] : 1940 Age/S: 79/M [address] [place] [address] Unit #: [id number] Loc: [place] [address] Phys: David Guzman Acct: [id number] Dis Date: Status: PRE [facility] [place] PHONE #: [phone] Exam Date: 06/14/2020 111 FAX #: [phone] Reason: PRE-OP WATCHMAN EXAMS: CPT CODE: [id number] XR CHEST 2 V [id number] CLINICAL HISTORY: PRE-OP WATCHMAN COMPARISON: NONE PA and lateral films of the chest demonstrate that heart size is normal. Tortuosity of thoracic aorta is identified. Lung bocanegra demonstrate no evidence of pulmonary consolidation or pulmonary edema. Linear opacity in left lower lung field and right mid lung fieldis identified compatible with atelectatic plaque or scarring. Degenerative changes are present in dorsal spine. Postsurgical changes are present in both shoulders. IMPRESSION: 1. No evidence of pneumonia or congestive failure. Linear opacity in both lungs are thought to represent atelectatic plaque orscarring. 2. Degenerative changes in dorsal spine as well as postsurgical changes in both shoulders. at 1125 Reported and signed by: Devin Caballero CC: Viraj Guzman MD Technologist: Nelda Singh RT(R)(M) Trnscrd Date/Time/By: 06/14/2020 ([id number]) : By: Jovita Orig Print D/T: S: 06/14/2020 (6745) PAGE 1 Signed ReportCBC W/AUTO DIFF 2020-06-14 11:16:00 Test Item Value Reference Range Interpretation Comments WHITE BLOOD CELL (test code = x10 3/uL 4.5-11.0 WBC) RED BLOOD CELL (test code = RBC) x10 6/uL 4.00-5.60 HEMOGLOBIN (test code = HGB) 14.0 g/dL 12.5-16.9 N HEMATOCRIT (test code = HCT) 46.3 % 37.5-50.7 N MEAN CELL VOLUME (test code = fL 81.0-99.0 MCV) MEAN CELL HGB (test code = MCH) pg 27.0-33.0 MEAN CELL HGB CONCETRATION (test g/dL 33.0-37.0 code = MCHC) RED CELL DISTRIBUTION WIDTH CV % 11.5-14.5 (test code = RDW) PLATELET COUNT (test code = PLT) 282 x10 3/uL 150-400 N NEUTROPHIL % (test code = NT%) % 56.0-77.0 LYMPHOCYTE % (test code = LY%) % 14.0-32.0 NEUTROPHIL # (test code = NT#) x10 3/uL 2.0-7.6 LYMPHOCYTE # (test code = LY#) x10 3/uL 1.0-3.8 MANUAL DIFF REQUIRED (test code = MDIFF) CBC W/AUTO [id number] 11:16:00 Test Item Value Reference Range Interpretation Comments WHITE BLOOD CELL (test code = 7.5 x10 3/uL 4.5-11.0 N WBC) RED BLOOD CELL (test code = 5.20 x10 6/uL 4.00-5.60 N RBC) HEMOGLOBIN (test code = HGB) 14.0 g/dL 12.5-16.9 N HEMATOCRIT (test code = HCT) 46.3 % 37.5-50.7 N MEAN CELL VOLUME (test code = 89.0 fL 81.0-99.0 N MCV) MEAN CELL HGB (test code = MCH) 26.9 pg 27.0-33.0 L MEAN CELL HGB CONCETRATION 30.2 g/dL 33.0-37.0 L (test code = MCHC) RED CELL DISTRIBUTION WIDTH CV 14.6 % 11.5-14.5 H (test code = RDW) RED CELL DISTRIBUTION WIDTH SD 47.7 fL 37.0-54.0 N (test code = RDW-SD) PLATELET COUNT (test code = 282 x10 3/uL 150-400 N PLT) MEAN PLATELET VOLUME (test code 9.0 fL 7.0-9.0 N = MPV) NEUTROPHIL % (test code = NT%) 81.0 % 56.0-77.0 H IMMATURE GRANULOCYTE % (test 0.5 % 0.0-2.0 N code = IG%) LYMPHOCYTE % (test code = LY%) 10.8 % 14.0-32.0 L MONOCYTE % (test code = MO%) 5.9 % 4.8-9.0 N EOSINOPHIL % (test code = EO%) 1.3 % 0.3-3.7 N BASOPHIL % (test code = BA%) 0.5 % 0.0-2.0 N NUCLEATED RBC % (test code = 0.0 % 0-0 N NRBC%) NEUTROPHIL # (test code = NT#) 6.07 x10 3/uL 2.0-7.6 N IMMATURE GRANULOCYTE # (test 0.04 x10 3/uL 0.00-0.03 H code = IG#) LYMPHOCYTE # (test code = LY#) 0.81 x10 3/uL 1.0-3.8 L MONOCYTE # (test code = MO#) 0.44 x10 3/uL 0.1-0.8 N EOSINOPHIL # (test code = EO#) 0.10 x10 3/uL 0.0-0.2 N BASOPHIL # (test code = BA#) 0.04 x10 3/uL 0.0-0.2 N NUCLEATED RBC # (test code = 0.00 x10 3/uL 0.0-0.1 N NRBC#) MANUAL DIFF REQUIRED (test code NO = MDIFF) [id number] 13:50:00 Test Item Value Reference Range Interpretation Comments Coronavirus (COVID-19) Not Detected (11/19/19 LASHANDA (test code = 8:50 AM) Coronavirus (COVID-19) LASHANDA) [facility] [id number] 13:50:00 Test Item Value Reference Range Interpretation Comments Coronavirus (COVID-19) Not Detected (11/19/19 LASHANDA (test code = 8:50 AM) Coronavirus (COVID-19) LASHANDA) [facility] Spine lumbar wo contrast [id number] 13:16:00PROCEDURE INFORMATION:Exam: MR Lumbar Spine Without Contrast.Exam date and time: 11/03/2019 1:39 PMAge: [...] interposition grafts atL3-L4 and L4-L5.Spinal cord: The conusmedullaris terminates normally at L1. The cauda equinanerve [...] retrolisthesis and moderate-sized disc osteophyte complex with m ildforaminal stenosis. Posterior decompression posterior fusion. No recurrentcentral canal stenosis.L4-L5: Posterior decompression and fusion. 3 mm anterolisthesis and small discosteophyte complex. Facet hypertrophic changes. No stenosis or arachnoiditis.L5-S1: Anterior and posterior fusion. Posterior decompression. No recurrentcanal or lateral recess stenosis. Mild foraminal stenosis.IMPRESSION:1. L3-S1 : Posterior decompression and posterior fusion without recurrenthigh-grade stenosis, arachnoiditis or pseudomeningocele.2. L2- L3 : Moderate stenosis of the central canal and foramina. Completedetails as above3. L1-L2: Mild central canal stenosis and mild left foraminal stenosis.4. Mild degenerative changes in the visualized thoracic spine.COMMENTS:5 lumbar type vertebral bodies are presumed to bepresent.Olga Farmer MD On 11/03/2019 18:32:53; [id number]--Ivwt by: Olga AtkinsapDictated Date/time: 11/03/19 18:32Electronically Signed by: Olga Atkins 11/02/2017:32[facility] [id number] 13:16:00PROCEDURE INFORMATION:Exam: MR Thoracic Spine Without ContrastExam date and time: 11/03/2019 1:39 PMAge: 79 years oldClinical indication: Other spondylosis with myelopathy, thoracic region;Additional info: /m47.14 thoracic myelopahty and r26.81 unsteady gaitTECHNIQUE:Imaging protocol: Multiplanar magnetic resonance images of the thoracic spinewithout intravenous contrast.COMPARISON:SPINE SACRUM WO CONTRAST MRI 03/17/2016 8:44 AMFINDINGS:Vertebrae: There is no compression fracture deformity or osseousmetastaticdisease.Spinal cord: Normal signal. No cord compression.T1-T2: No [...] with minimal right foraminal stenosis is anterior spondylosis.T10-T11:At the T10-11 disc space which is desiccated there is a 3 mmbroad-based bridging osteophyte and hypertrophic change to ligamentum flavumand facet joints with minimal to moderate spinal stenosis and bila teralforaminal stenosis.T11-T12: At the T11-12 disc space which is desiccated there is a 1 mm bridgingosteophyte without central or foraminal stenosis.At the T12-L1 disc space is a central Schmorl's node anterior spondylosis withModic 2 signal alteration. There is a 2 mm left lateralprotrusion/subligamentous extrusion without spinal stenosis.Soft tissues: There is no pleural effusion or paravertebralmass intensity. There is minimal atrophic changes of the spinae erector muscles.IMPRESSION: Multilevel discogenic disease is present without central canalstenosis.Dakotah Carter MD On 11/04/2019 08:43:44; [id number]--Rkoh by: Dakotah Carter MDDictated Date/time: 11/04/19 08:43Electronically Signed by: Dakotah Carter MD 11/04/2007:43[facility] Sp[facility] cervical wo contrast [id number] 13:16:00PROCEDURE INFORMATION:Exam: MR Cervical Spine Without ContrastExam date and time: 11/03/2019 1:39 PMAge: 79 years oldClinical indication: Disease of spinal cord, unspecified; Additional info:/g95.9 cervical myelopahty and r26.81 unsteady gait. Include 45 degree cuts oncspine.TECHNIQUE:Imaging protocol:Multiplanar magnetic resonance images of the cervical spinewithout contrast.COMPARISON:SPINE CERVICAL WO CONTRAST MRI 04/16/2018 11:11 AMFINDINGS:Vertebrae: There is no fracture osseous metastatic disease. There isdegenerative change of the C1-C2 articulation.Spinal cord: There is no myleomalacia or cord edema. There is no tonsillarectopia. There is normal flow from both vertebral arteries.C2-C3: At th e C2-C3 disc space, there is minimal degenerative change of theright facet joint.C3-C4: At the C3-C4disc space , there are progressive degenerative changeswith a 2 mm anterolisthesis, central protrusion and broadening of posteriorlongitudinal ligament. There is hypertrophic change to left uncovertebral jointwith progressive severe left foraminal stenosis and degenerative change of theleft facet joint.C4-C5: At the C4-C5 disc space, there is progressive degenerative changes withdisc space narrowing.There is a 3 mm broad-based bridging osteophyte andhypertrophic change the uncovertebral joints and ligamentum flavum with severeleft and moderate right foraminal stenosis and minimal to moderate centralcanal stenosis.C5-C6: At the C5-C6 disc space which is further desiccated and narrowed, thereis a 2-3 mm broad-based bridging osteophyte and hypertrophic change ofuncovertebral joints with moderate tosevere bilateral foraminal stenosis,noted previously.C6-C7: At the C6-C7 disc space, there is a 2 mmbridging osteophyte andhypertrophic change to left uncovertebral joint with minimal to moderatebilateral distal foraminal stenosis which is stable.C7-T1: At the C7-T1 disc space, there is no central orforaminal stenosis.There is minimal degenerative change of left facet joint.Vertebral arteries: Expected flow voids in the vertebral arteries.Soft tissues: The prevertbral soft tissues are normal.IMPRESSION: Progressive discogenic disease is present as described.Dakotah Carter MD On 11/04/2019 08:53:06; [id number]--Yznb by: Dakotah Carter MDDictated Date/time: 11/04/19 08:53Electronically Signed by: Dakotah Carter MD 11/04/2007:53FINAL REPORTUT [facility]icians[U] XRAY SPINE LUMBOSACRAL 2 OR 3 VWS [id number] 10:01:00Images acquired, not reported on this accession number.UT PhysiciansSARS coronavirus 2 RNA [Presence] in Respiratory specimen by LASHANDA with probe [id number] 15:06:57 Test Item Value Reference Range Interpretation Comments SARS coronavirus 2 RNA Not detected Not-Detected [Presence] in Respiratory specimen by LASHANDA with probe detection (test code = 15610-4) [id number] 10:53:00 Test Item Value Reference Range Interpretation Comments IgE Lvl (test code = IgE Lvl) 35.2 10.0-100.0 [facility] SystemLzlokyrAZNFAZJPZY2428-50-27 10:53:00 Test Item Value Reference Range Interpretation Comments IgE Lvl (test code = IgE Lvl) 35.2 10.0-100.0 [facility] SystemMySQUARCARDIAC [id number] 09:34:00 Test Item Value Reference Range Interpretation Comments Troponin-I (test code no gt See_Comment [Auto mated message] The = Troponin-I) system which g enerated this result transmit vasyl reference range : <=0.40. The reference r niko was not used to interpr et this result as minnie l/abnormal. [facility] [employer] [id number] 09:34:00 Test Item Value Reference Range Interpretation Comments Glucose Lvl (test code = Glucose Lvl) 248 70-99 [facility] SystemMediaVast [id number] 09:34:00 Test Item Value Reference Range Interpretation Comments BUN (test code = BUN) 16 7-22 [facility] SystemMedia[facility] [id number] 09:34:00 Test Item Value Reference Range Interpretation Comments Creatinine Lvl (test code = Creatinine 1.12 0.50-1.40 Lvl) [facility] SystemMedia[facility] [id number] 09:34:00 Test Item Value Reference Range Interpretation Comments Sodium Lvl (test code = Sodium Lvl) 136 135-145 [place] [id number] 09:34:00 Test Item Value Reference Range Interpretation Comments Potassium Lvl (test code = Potassium 4.5 3.5-5.1 Lvl) [facility]2019-12-14 09:34:00 Test Item Value Reference Range Interpretation Comments Chloride Lvl (test code = Chloride Lvl) 106 95-109 [facility]2019-12-14 09:34:00 Test Item Value Reference Range Interpretation Comments CO2 (test code = CO2) 26 24-32 [place] 770949-12-14 09:34:00 Test Item Value Reference Range Interpretation Comments AGAP (test code = AGAP) 8.5 10.0-20.0 [place] 770949-12-14 09:34:00 Test Item Value Reference Range Interpretation Comments Calcium Lvl (test code = Calcium Lvl) 8.8 8.5-10.5 [facility]2019-12-14 09:34:00 Test Item Value Reference Range Interpretation Comments eGFR (test code = eGFR) 63 [facility]ennialCrkzxylPURBRUHNGO6039-48-77 09:34:00 Test Item Value Reference Range Interpretation Comments Neutrophils # (test code = Neutrophils 9.5 1.5-8.1 #) [facility] CentennialHuhcjbdAPWLHJNKSP3322-57-95 09:34:00 Test Item Value Reference Range Interpretation Comments Lymphocytes # (test code = Lymphocytes 0.6 1.0-5.5 #) [place] 182119-12-14 09:34:00 Test Item Value Reference Range Interpretation Comments Monocytes # (test code 0.0 See_Comment [Aut omated message] The = Monocytes #) system which generated this result tra nsmitted reference range : <=0.8. The reference r niko was not used to int erpret this result as normal/abnormal . [place] 182119-12-14 09:34:00 Test Item Value Reference Range Interpretation Comments Segs (test code = Segs) 94.0 45.0-75.0 [place] 182119-12-14 09:34:00 Test Item Value Reference Range Interpretation Comments Bands (test code = 0.0 See_Comment [Automat ed message] The Bands) system which ge nerated this result transmit vasyl reference range : <=11.0. The reference r niko was not used to interpr et this result as minnie l/abnormal. [facility] CentennialUkfjbnbWHSDXDBZMH1098-21-45 09:34:00 Test Item Value Reference Range Interpretation Comments Lymphocytes (test code = Lymphocytes) 5.0 20.0-40.0 [facility] CentennialWnmeugfFJXUCLOACX9645-01-96 09:34:00 Test Item Value Reference Range Interpretation Comments Monocytes (test code = Monocytes) 0.0 2.0-12.0 [facility] CentennialNpaizjuTKZAFLRZHI3098-73-41 09:34:00 Test Item Value Reference Range Interpretation Comments Atypical Lymphs (test code = Atypical 1.0 Lymphs) [facility] CentennialJjdopcvFQGNRJYOJE7498-95-99 09:34:00 Test Item Value Reference Range Interpretation Comments RBC Morph (test code = Normal (03/08/19 3:34 RBC Morph) AM) [facility] CentennialZmgvburEMAHNCQNSP7568-30-15 09:34:00 Test Item Value Reference Range Interpretation Comments Plt Morph (test code = Normal (03/08/19 3:34 Plt Morph) AM) [facility] CentennialWckqkvkENKZRJZWAQ4841-54-76 09:34:00 Test Item Value Reference Range Interpretation Comments WBC (test code = WBC) 10.1 3.7-10.4 [facility] CentennialPwnqzihTGXFOYTXHD0880-41-17 09:34:00 Test Item Value Reference Range Interpretation Comments RBC (test code = RBC) 4.59 4.70-6.10 [facility] CentennialZvwrtidXKSAJDPJWW5251-65-21 09:34:00 Test Item Value Reference Range Interpretation Comments Hgb (test code = Hgb) 12.8 14.0-18.0 [facility] CentennialYfnnpjpUGJBCGZBIY4780-54-94 09:34:00 Test Item Value Reference Range Interpretation Comments Hct (test code = Hct) 38.7 42.0-54.0 [facility] CentennialBxnylkaSOWVPSCRAZ5939-24-97 09:34:00 Test Item Value Reference Range Interpretation Comments MCV (test code = MCV) 84.3 80.0-94.0 [facility] CentennialTsyeoyxFHCOOPWZPK5270-59-47 09:34:00 Test Item Value Reference Range Interpretation Comments MCH (test code = MCH) 27.9 pg 27.0-31.0 [facility] CentennialIfzlvhlIIWKPZZSTO0586-90-36 09:34:00 Test Item Value Reference Range Interpretation Comments MCHC (test code = MCHC) 33.1 32.0-36.0 [facility]GlticvuXIJFDWWKCE3923-66-27 09:34:00 Test Item Value Reference Range Interpretation Comments RDW (test code = RDW) 15.6 11.5-14.5 [facility] SystemFotmtxjLMJDYNJFPH6479-95-69 09:34:00 Test Item Value Reference Range Interpretation Comments Platelet (test code = Platelet) 216 133-450 [facility] SystemFnakdwcOFIBRWIOYF2588-10-07 09:34:00 Test Item Value Reference Range Interpretation Comments MPV (test code = MPV) 6.8 7.4-10.4 [facility] SystemXedzwreIMUISJ8989-58-01 09:34:00 Test Item Value Reference Range Interpretation Comments CHD Risk (test code = CHD Risk) 3.39 1 4.00-7.30 [facility] SystemYmgckfuPWSHSM0391-91-15 09:34:00 Test Item Value Reference Range Interpretation Comments Trig (test code = Trig) 119 [facility] SystemVohptnjARMGNC7885-83-31 09:34:00 Test Item Value Reference Range Interpretation Comments Chol (test code = Chol) 156 [facility] SystemEyzogucXWJJJJ4490-47-83 09:34:00 Test Item Value Reference Range Interpretation Comments HDL (test code = HDL) 46 [facility] SystemFmjtzfvMFNJYJ7207-02-49 09:34:00 Test Item Value Reference Range Interpretation Comments LDL (Calculated) (test code = LDL 86 (Calculated)) [facility] SystemJjervlaKXZQJK2165-10-81 09:34:00 Test Item Value Reference Range Interpretation Comments VLDL (test code = VLDL) 24 1 [facility] SystemSPECIAL RKIWLKXJS8005-55-40 09:34:00 Test Item Value Reference Range Interpretation Comments Hgb A1C (test code = Hgb A1C) 7.5 [facility] SystemCARDIAC NMSDALN8451-56-56 09:34:00 Test Item Value Reference Range Interpretation Comments Troponin-I (test code no gt See_Comment [Auto mated message] The = Troponin-I) system which g enerated this result transmit vasyl reference range : <=0.40. The reference r niko was not used to interpr et this result as minnie l/abnormal. [facility] SystemHuggler.com QTGFT4218-74-15 09:34:00 Test Item Value Reference Range Interpretation Comments Glucose Lvl (test code = Glucose Lvl) 248 70-99 [facility]2019-12-14 09:34:00 Test Item Value Reference Range Interpretation Comments BUN (test code = BUN) 16 7-22 [facility]2019-12-14 09:34:00 Test Item Value Reference Range Interpretation Comments Creatinine Lvl (test code = Creatinine 1.12 0.50-1.40 Lvl) [facility]2019-12-14 09:34:00 Test Item Value Reference Range Interpretation Comments Sodium Lvl (test code = Sodium Lvl) 136 135-145 [facility]2019-12-14 09:34:00 Test Item Value Reference Range Interpretation Comments Potassium Lvl (test code = Potassium 4.5 3.5-5.1 Lvl) [facility]2019-12-14 09:34:00 Test Item Value Reference Range Interpretation Comments Chloride Lvl (test code = Chloride Lvl) 106 95-109 [facility]2019-12-14 09:34:00 Test Item Value Reference Range Interpretation Comments CO2 (test code = CO2) 26 24-32 [facility]2019-12-14 09:34:00 Test Item Value Reference Range Interpretation Comments AGAP (test code = AGAP) 8.5 10.0-20.0 [facility]2019-12-14 09:34:00 Test Item Value Reference Range Interpretation Comments Calcium Lvl (test code = Calcium Lvl) 8.8 8.5-10.5 [facility]2019-12-14 09:34:00 Test Item Value Reference Range Interpretation Comments eGFR (test code = eGFR) 63 [facility] CentennialUjnlzveMLBJQLDZML6983-39-41 09:34:00 Test Item Value Reference Range Interpretation Comments Neutrophils # (test code = Neutrophils 9.5 1.5-8.1 #) [facility] CentennialBfxaxbgFXMLFFLCSY6035-52-93 09:34:00 Test Item Value Reference Range Interpretation Comments Lymphocytes # (test code = Lymphocytes 0.6 1.0-5.5 #) [facility] CentennialZawhniyUEQSKNEGBG8433-41-55 09:34:00 Test Item Value Reference Range Interpretation Comments Monocytes # (test code 0.0 See_Comment [Aut omated message] The = Monocytes #) system which generated this result tra nsmitted reference range : <=0.8. The reference r niko was not used to int erpret this result as normal/abnormal . [facility] CentennialHgwvfljCEZVDGONMO0897-60-74 09:34:00 Test Item Value Reference Range Interpretation Comments Segs (test code = Segs) 94.0 45.0-75.0 [facility] CentennialCpzoxczZJWIIUGUOC9019-69-41 09:34:00 Test Item Value Reference Range Interpretation Comments Bands (test code = 0.0 See_Comment [Automat ed message] The Bands) system which ge nerated this result transmit vasyl reference range : <=11.0. The reference r niko was not used to interpr et this result as minnie l/abnormal. [facility] CentennialCmxecmkCRSVVXWRLS1004-95-85 09:34:00 Test Item Value Reference Range Interpretation Comments Lymphocytes (test code = Lymphocytes) 5.0 20.0-40.0 [facility] CentennialIwnafolREPEWSRUHQ4985-11-95 09:34:00 Test Item Value Reference Range Interpretation Comments Monocytes (test code = Monocytes) 0.0 2.0-12.0 [facility] CentennialCxwtmftPBQTLKFCDJ0535-77-09 09:34:00 Test Item Value Reference Range Interpretation Comments Atypical Lymphs (test code = Atypical 1.0 Lymphs) [facility] CentennialFdhxfjoRVVCXBXOLN1855-50-96 09:34:00 Test Item Value Reference Range Interpretation Comments RBC Morph (test code = Normal (03/08/19 3:34 RBC Morph) AM) [facility] CentennialVgqqwgzZPDQTDCEAW6513-98-28 09:34:00 Test Item Value Reference Range Interpretation Comments Plt Morph (test code = Normal (03/08/19 3:34 Plt Morph) AM) [facility] CentennialNarafwuKUISYKEZXB7665-05-56 09:34:00 Test Item Value Reference Range Interpretation Comments WBC (test code = WBC) 10.1 3.7-10.4 [facility] CentennialCsotspaIALCYMWTOT7327-07-02 09:34:00 Test Item Value Reference Range Interpretation Comments RBC (test code = RBC) 4.59 4.70-6.10 [facility] CentennialKhwgxntPWNFFAWLCW0841-08-87 09:34:00 Test Item Value Reference Range Interpretation Comments Hgb (test code = Hgb) 12.8 14.0-18.0 [facility] CentennialUwvwvspUHCOMYOTZH0707-08-44 09:34:00 Test Item Value Reference Range Interpretation Comments Hct (test code = Hct) 38.7 42.0-54.0 [place] 182119-12-14 09:34:00 Test Item Value Reference Range Interpretation Comments MCV (test code = MCV) 84.3 80.0-94.0 [facility] InstituteMwmixgjERGKYPNRZL8882-09-94 09:34:00 Test Item Value Reference Range Interpretation Comments MCH (test code = MCH) 27.9 pg 27.0-31.0 [facility] InstituteZgaubrxNJFMLTJVGG2976-06-41 09:34:00 Test Item Value Reference Range Interpretation Comments MCHC (test code = MCHC) 33.1 32.0-36.0 [facility] InstituteCamdvqxMHAITDMKRC2210-25-41 09:34:00 Test Item Value Reference Range Interpretation Comments RDW (test code = RDW) 15.6 11.5-14.5 [facility] InstituteNgcxblfWACDOWDNWP7351-49-67 09:34:00 Test Item Value Reference Range Interpretation Comments Platelet (test code = Platelet) 216 133-450 [facility] InstituteNbiizuyWUQADUAOMA9097-52-48 09:34:00 Test Item Value Reference Range Interpretation Comments MPV (test code = MPV) 6.8 7.4-10.4 [facility] SystemWnnfaqdQWDMQP0007-49-97 09:34:00 Test Item Value Reference Range Interpretation Comments CHD Risk (test code = CHD Risk) 3.39 1 4.00-7.30 [facility] SystemWxtauzrLHEESD6098-80-35 09:34:00 Test Item Value Reference Range Interpretation Comments Trig (test code = Trig) 119 [facility] SystemGvhllfbPANFJQ0271-28-58 09:34:00 Test Item Value Reference Range Interpretation Comments Chol (test code = Chol) 156 [facility] SystemIpigxkrFOCKCV5598-63-61 09:34:00 Test Item Value Reference Range Interpretation Comments HDL (test code = HDL) 46 [facility] SystemBabzwtgZUQWVI9301-47-05 09:34:00 Test Item Value Reference Range Interpretation Comments LDL (Calculated) (test code = LDL 86 (Calculated)) [facility] SystemTiahziwTQGSPI3635-82-19 09:34:00 Test Item Value Reference Range Interpretation Comments VLDL (test code = VLDL) 24 1 [facility] PTBWSCCML4474-82-70 09:34:00 Test Item Value Reference Range Interpretation Comments Hgb A1C (test code = Hgb A1C) 7.5 [facility] SystemCARDIAC JWCVXQB4016-06-00 04:13:00 Test Item Value Reference Range Interpretation Comments Troponin-I (test code no gt See_Comment [Auto mated message] The = Troponin-I) system which g enerated this result transmit vasyl reference range : <=0.40. The reference r niko was not used to interpr et this result as minnie l/abnormal. [facility] [employer]2019-12-14 04:13:00 Test Item Value Reference Range Interpretation Comments Troponin-I (test code no gt See_Comment [Auto mated message] The = Troponin-I) system which g enerated this result transmit vasyl reference range : <=0.40. The reference r niko was not used to interpr et this result as minnie l/abnormal. [facility] [employer]2019-12-14 02:27:00 Test Item Value Reference Range Interpretation Comments Troponin-I (test code no gt See_Comment [Auto mated message] The = Troponin-I) system which g enerated this result transmit vasyl reference range : <=0.40. The reference r niko was not used to interpr et this result as minnie l/abnormal. [facility] [email or web address] 02:27:00 Test Item Value Reference Range Interpretation Comments Troponin-I (test code no gt See_Comment [Auto mated message] The = Troponin-I) system which g enerated this result transmit vasyl reference range : <=0.40. The reference r niko was not used to interpr et this result as minnie l/abnormal. [facility] [email or web address] 22:31:00 Test Item Value Reference Range Interpretation Comments BNP (test code = BNP) 51 [facility] [employer]2019-12-13 22:31:00 Test Item Value Reference Range Interpretation Comments Glucose Lvl (test code = Glucose Lvl) 138 70-99 [facility] [employer]2019-12-13 22:31:00 Test Item Value Reference Range Interpretation Comments BUN (test code = BUN) 19 7-22 [facility] [employer]2019-12-13 22:31:00 Test Item Value Reference Range Interpretation Comments Creatinine Lvl (test code = Creatinine 1.27 0.50-1.40 Lvl) [facility] [employer]2019-12-13 22:31:00 Test Item Value Reference Range Interpretation Comments Sodium Lvl (test code = Sodium Lvl) 137 135-145 [facility]2019-12-13 22:31:00 Test Item Value Reference Range Interpretation Comments Potassium Lvl (test code = Potassium 4.0 3.5-5.1 Lvl) [facility]2019-12-13 22:31:00 Test Item Value Reference Range Interpretation Comments Chloride Lvl (test code = Chloride Lvl) 105 95-109 [facility]2019-12-13 22:31:00 Test Item Value Reference Range Interpretation Comments CO2 (test code = CO2) 25 24-32 [facility]2019-12-13 22:31:00 Test Item Value Reference Range Interpretation Comments Calcium Lvl (test code = Calcium Lvl) 8.8 8.5-10.5 [facility]2019-12-13 22:31:00 Test Item Value Reference Range Interpretation Comments eGFR (test code = eGFR) 55 [facility]2019-12-13 22:31:00 Test Item Value Reference Range Interpretation Comments AGAP (test code = AGAP) 11.0 10.0-20.0 [place] 182119-12-13 22:31:00 Test Item Value Reference Range Interpretation Comments WBC (test code = WBC) 10.5 3.7-10.4 [facility]ennialKcponcjASXQGJCCED3020-36-01 22:31:00 Test Item Value Reference Range Interpretation Comments RBC (test code = RBC) 4.88 4.70-6.10 [facility] CentennialHjiiajrCVBFQAMZFR4314-03-30 22:31:00 Test Item Value Reference Range Interpretation Comments Hgb (test code = Hgb) 13.5 14.0-18.0 [place] 182119-12-13 22:31:00 Test Item Value Reference Range Interpretation Comments Hct (test code = Hct) 41.4 42.0-54.0 [facility]ennialErrhafwHKFMQGCJIC2425-62-93 22:31:00 Test Item Value Reference Range Interpretation Comments MCV (test code = MCV) 85.0 80.0-94.0 [place] 182119-12-13 22:31:00 Test Item Value Reference Range Interpretation Comments MCH (test code = MCH) 27.6 pg 27.0-31.0 [place] 182119-12-13 22:31:00 Test Item Value Reference Range Interpretation Comments MCHC (test code = MCHC) 32.5 32.0-36.0 [facility]BgvzblyBKPPHHUSBW2598-16-63 22:31:00 Test Item Value Reference Range Interpretation Comments RDW (test code = RDW) 15.7 11.5-14.5 [facility] InstituteGmywgwyECNDTGHYCF6766-20-14 22:31:00 Test Item Value Reference Range Interpretation Comments Platelet (test code = Platelet) 228 133-450 [facility] InstituteFtmvfguJFTYVZXNGN6220-40-12 22:31:00 Test Item Value Reference Range Interpretation Comments MPV (test code = MPV) 6.9 7.4-10.4 [facility] VFJZXBA7292-30-00 22:31:00 Test Item Value Reference Range Interpretation Comments BNP (test code = BNP) 51 [facility] FCIYF3618-01-93 22:31:00 Test Item Value Reference Range Interpretation Comments Glucose Lvl (test code = Glucose Lvl) 138 70-99 [facility]2019-12-13 22:31:00 Test Item Value Reference Range Interpretation Comments BUN (test code = BUN) 19 7-22 [facility]2019-12-13 22:31:00 Test Item Value Reference Range Interpretation Comments Creatinine Lvl (test code = Creatinine 1.27 0.50-1.40 Lvl) [facility]2019-12-13 22:31:00 Test Item Value Reference Range Interpretation Comments Sodium Lvl (test code = Sodium Lvl) 137 135-145 [facility]2019-12-13 22:31:00 Test Item Value Reference Range Interpretation Comments Potassium Lvl (test code = Potassium 4.0 3.5-5.1 Lvl) [facility]2019-12-13 22:31:00 Test Item Value Reference Range Interpretation Comments Chloride Lvl (test code = Chloride Lvl) 105 95-109 [facility]2019-12-13 22:31:00 Test Item Value Reference Range Interpretation Comments CO2 (test code = CO2) 25 24-32 [facility] WJFKQ2009-29-37 22:31:00 Test Item Value Reference Range Interpretation Comments Calcium Lvl (test code = Calcium Lvl) 8.8 8.5-10.5 [facility]2019-12-13 22:31:00 Test Item Value Reference Range Interpretation Comments eGFR (test code = eGFR) 55 [facility]2019-12-13 22:31:00 Test Item Value Reference Range Interpretation Comments AGAP (test code = AGAP) 11.0 10.0-20.0 [facility]ennialLlwbbpxKADRCBZFEX3716-61-50 22:31:00 Test Item Value Reference Range Interpretation Comments WBC (test code = WBC) 10.5 3.7-10.4 [facility] CentennialTxcazkdWUSDSXBBZR3733-68-88 22:31:00 Test Item Value Reference Range Interpretation Comments RBC (test code = RBC) 4.88 4.70-6.10 [facility] CentennialDjlvnluJLOCRYCYCE3722-43-92 22:31:00 Test Item Value Reference Range Interpretation Comments Hgb (test code = Hgb) 13.5 14.0-18.0 [facility] CentennialUnrxmmhXCKRVFKRJY2209-83-12 22:31:00 Test Item Value Reference Range Interpretation Comments Hct (test code = Hct) 41.4 42.0-54.0 [facility] CentennialBenfnncXTLRGEIRLG5796-42-41 22:31:00 Test Item Value Reference Range Interpretation Comments MCV (test code = MCV) 85.0 80.0-94.0 [facility] CentennialAwbgvruBAKCKPQOQC6160-90-99 22:31:00 Test Item Value Reference Range Interpretation Comments MCH (test code = MCH) 27.6 pg 27.0-31.0 [facility] CentennialAicfqmqQNDOLDJKNE1668-33-85 22:31:00 Test Item Value Reference Range Interpretation Comments MCHC (test code = MCHC) 32.5 32.0-36.0 [facility] CentennialLmeodchUDHVPWLAPF1237-82-21 22:31:00 Test Item Value Reference Range Interpretation Comments RDW (test code = RDW) 15.7 11.5-14.5 [facility] CentennialZrbnfnfYOWBQPJJRO6013-56-33 22:31:00 Test Item Value Reference Range Interpretation Comments Platelet (test code = Platelet) 228 133-450 [facility] CentennialDenbiwsPLRHGEZDWY8259-52-44 22:31:00 Test Item Value Reference Range Interpretation Comments MPV (test code = MPV) 6.9 7.4-10.4 [facility][U] XRAY SHOULDER MIN 2 VWS LEFT [id number] 10:24:00Images acquired, not reported on this accession number.[facility] 29 Asrccw1012-71-52 14:04:11 Test Item Value Reference Range Interpretation Comments Pain Interference: (test code = Pain 54.1 1 N Interference:) Pain Intensity: (test code = Pain 49.7 1 N Intensity:) Physical Function: (test code = 30.1 1 N Physical Function:) Satisfaction Role: (test code = 35.7 1 N Satisfaction Role:) [facility][U] XRAY SHOULDER MIN 2 VWS RIGHT [id number] 10:47:00Images acquired, not reported on this accession number.[facility][U] XRAY SHOULDER MIN 2 VWS LEFT [id number] 10:29:00Images acquired, not reported on this accession number.[facility] 29 Xruxwb1531-48-79 14:04:32 Test Item Value Reference Range Interpretation Comments Pain Interference: (test code = Pain 68.2 1 N Interference:) Pain Intensity: (test code = Pain 57.5 1 N Intensity:) Physical Function: (test code = 28 1 N Physical Function:) Satisfaction Role: (test code = 26.5 1 N Satisfaction Role:) [facility][U] XRAY SHOULDER MIN 2 VWS LEFT [id number] 10:04:00Images acquired, not reported on this accession number.[facility]iciansELECTROLYTES 2018-05-18 08:52:00 Test Item Value Reference Range Interpretation Comments AGAP (test code = AGAP) 12.7 10.0-20.[address] [facility] HospitalKvpxdacBYDZXHIMXICA8130-09-02 08:52:00 Test Item Value Reference Range Interpretation Comments Calcium Lvl (test code = Calcium Lvl) 8.1 8.5-10.[address] [facility] HospitalCymqghwAMEXHRRXLCRY0612-00-39 08:52:00 Test Item Value Reference Range Interpretation Comments Chloride Lvl (test code = Chloride Lvl) 104 95-[address] [facility] HospitalPdksiarXBEXFJJIJQEA1848-14-76 08:52:00 Test Item Value Reference Range Interpretation Comments Sodium Lvl (test code = Sodium Lvl) 140 135-[address] [facility] HospitalZchhbhzDDXHVVEZWNSL8664-16-28 08:52:00 Test Item Value Reference Range Interpretation Comments Potassium Lvl (test code = Potassium 4.7 3.5-5.1 Lvl) [facility] HospitalLlmxzhpVMVRXPUYPUZO0897-89-81 08:52:00 Test Item Value Reference Range Interpretation Comments eGFR (test code = eGFR) [address] [facility] HospitalWksfyrfBARIZEOAGQUK6375-20-35 08:52:00 Test Item Value Reference Range Interpretation Comments Creatinine Lvl (test code = Creatinine 1.04 0.50-1.40 Lvl) [facility] HospitalKkdjtsfSRCCLFNMETNW1371-34-88 08:52:00 Test Item Value Reference Range Interpretation Comments Glucose Lvl (test code = Glucose Lvl) 126 70-[address] [facility] HospitalLazlrfmIWVDTEVNRVBK1695-94-71 08:52:00 Test Item Value Reference Range Interpretation Comments CO2 (test code = CO2) 28 24-[address] [facility] HospitalHvpidzvFIAJMCXOPNVR2325-92-70 08:52:00 Test Item Value Reference Range Interpretation Comments BUN (test code = BUN) 17 7-22 [facility] CentennialJieyzbwQLABGNWWLT6712-71-95 08:52:00 Test Item Value Reference Range Interpretation Comments Lymphocytes (test code = Lymphocytes) 7.9 20.0-40.0 [facility] CentennialBawgkckVARAYBBMIR3488-50-36 08:52:00 Test Item Value Reference Range Interpretation Comments Segs (test code = Segs) 86.8 45.0-75.0 [facility] CentennialInaeeggHEGNMOVFHR7231-27-38 08:52:00 Test Item Value Reference Range Interpretation Comments Basophils (test code = 0.2 See_Comment [Aut omated message] The Basophils) system which ge nerated this result tra nsmitted reference range : <=1.0. The reference r niko was not used to int erpret this result as normal/abnormal . [facility] CentennialSobwtctCKWCWZJXKV6605-76-86 08:52:00 Test Item Value Reference Range Interpretation Comments Monocytes (test code = Monocytes) 5.1 2.0-12.0 [facility] CentennialOnopviiKFVWIEVTMX8855-24-34 08:52:00 Test Item Value Reference Range Interpretation Comments Neutrophils # (test code = Neutrophils 11.8 1.5-8.1 #) [facility] CentennialYxdkfqlJDKOHDASBI6744-10-41 08:52:00 Test Item Value Reference Range Interpretation Comments Lymphocytes # (test code = Lymphocytes 1.1 1.0-5.5 #) [facility] CentennialCqewpbvKIRALERKVL1439-86-01 08:52:00 Test Item Value Reference Range Interpretation Comments Monocytes # (test code 0.7 See_Comment [Aut omated message] The = Monocytes #) system which generated this result tra nsmitted reference range : <=0.8. The reference r niko was not used to int erpret this result as normal/abnormal . [facility] CentennialGonphbrXFXZUTICVM3341-32-22 08:52:00 Test Item Value Reference Range Interpretation Comments MPV (test code = MPV) 7.2 7.4-10.4 [facility] CentennialPncygxoMLJGBFHGNG4630-58-79 08:52:00 Test Item Value Reference Range Interpretation Comments RBC (test code = RBC) 4.05 4.70-6.10 [facility] CentennialYepnoigSLTABYPBCR1930-60-78 08:52:00 Test Item Value Reference Range Interpretation Comments WBC (test code = WBC) 13.6 3.7-10.4 [facility] CentennialSocphxcLNENWIGZCD6758-14-69 08:52:00 Test Item Value Reference Range Interpretation Comments Hct (test code = Hct) 33.1 42.0-54.0 [facility] CentennialUvpxkduORMYVCCTNV0948-09-80 08:52:00 Test Item Value Reference Range Interpretation Comments Hgb (test code = Hgb) 10.6 14.0-18.0 [facility] CentennialHhqkvxzDMSHJZZWRV6943-92-07 08:52:00 Test Item Value Reference Range Interpretation Comments MCHC (test code = MCHC) 32.1 32.0-36.0 [facility] CentennialDlltyhfGWYPNLZMXG2880-10-94 08:52:00 Test Item Value Reference Range Interpretation Comments MCH (test code = MCH) 26.3 pg 27.0-31.0 [facility] CentennialWahcbnzAXUWZCXLDQ7480-46-27 08:52:00 Test Item Value Reference Range Interpretation Comments RDW (test code = RDW) 16.5 11.5-14.5 [facility] InstituteTplllbfBOVCINFOBN9804-35-45 08:52:00 Test Item Value Reference Range Interpretation Comments Platelet (test code = Platelet) 201 133-450 [facility] InstituteZxbkmbsKDSEBPZGSJ0082-56-72 08:52:00 Test Item Value Reference Range Interpretation Comments MCV (test code = MCV) 81.8 80.0-94.0 [facility] SystemEzvyjjiMJBGNCXISJKB5901-20-15 08:52:00 Test Item Value Reference Range Interpretation Comments AGAP (test code = AGAP) 12.7 10.0-20.[address] [facility] HospitalEdyukgeRWMJXURJPZXJ3260-84-52 08:52:00 Test Item Value Reference Range Interpretation Comments Calcium Lvl (test code = Calcium Lvl) 8.1 8.5-10.[address] [facility] HospitalPjuzuftXMOMYFTBTGNH1640-52-72 08:52:00 Test Item Value Reference Range Interpretation Comments Chloride Lvl (test code = Chloride Lvl) 104 95-[address] [facility] HospitalXvwibvhCUJKWAGHEFKH8828-19-09 08:52:00 Test Item Value Reference Range Interpretation Comments Sodium Lvl (test code = Sodium Lvl) 140 135-[address] [facility] HospitalOnpvqxaIGFMLHLEHMFP1805-74-17 08:52:00 Test Item Value Reference Range Interpretation Comments Potassium Lvl (test code = Potassium 4.7 3.5-5.1 Lvl) [facility] HospitalLgxayxlXHRULLTJBILA7874-05-11 08:52:00 Test Item Value Reference Range Interpretation Comments eGFR (test code = eGFR) [address] [facility] HospitalEmuiovbULTENFEFEZTT8582-34-66 08:52:00 Test Item Value Reference Range Interpretation Comments Creatinine Lvl (test code = Creatinine 1.04 0.50-1.40 Lvl) [facility] HospitalWcwjwoaFOSSIAEDHGKN3782-86-51 08:52:00 Test Item Value Reference Range Interpretation Comments Glucose Lvl (test code = Glucose Lvl) 126 70-[address] [facility] HospitalJunjkexYDDUZJBMWUOM3907-33-64 08:52:00 Test Item Value Reference Range Interpretation Comments CO2 (test code = CO2) 28 24-[address] [facility] HospitalCzaicomYLQDNMDKUMFZ9989-23-30 08:52:00 Test Item Value Reference Range Interpretation Comments BUN (test code = BUN) 17 7-22 [facility] CentennialEdrqhmxZODEEDLXRQ1884-67-86 08:52:00 Test Item Value Reference Range Interpretation Comments Lymphocytes (test code = Lymphocytes) 7.9 20.0-40.0 [facility] CentennialOrfxivsFEMOSZVWTZ4403-37-66 08:52:00 Test Item Value Reference Range Interpretation Comments Segs (test code = Segs) 86.8 45.0-75.0 [facility] CentennialLkjswrrSLNIOWTVSZ9477-54-75 08:52:00 Test Item Value Reference Range Interpretation Comments Basophils (test code = 0.2 See_Comment [Aut omated message] The Basophils) system which ge nerated this result tra nsmitted reference range : <=1.0. The reference r niko was not used to int erpret this result as normal/abnormal . [facility] CentennialLgyucqkGICCZWGHGZ3702-97-83 08:52:00 Test Item Value Reference Range Interpretation Comments Monocytes (test code = Monocytes) 5.1 2.0-12.0 [facility] CentennialEwpmnvbRJVRBDAJAC7878-91-63 08:52:00 Test Item Value Reference Range Interpretation Comments Neutrophils # (test code = Neutrophils 11.8 1.5-8.1 #) [facility] CentennialKaemtijEVHNWPCGNL7521-60-77 08:52:00 Test Item Value Reference Range Interpretation Comments Lymphocytes # (test code = Lymphocytes 1.1 1.0-5.5 #) [facility] CentennialRcfypnjLQDDXFYKVK8200-52-35 08:52:00 Test Item Value Reference Range Interpretation Comments Monocytes # (test code 0.7 See_Comment [Aut omated message] The = Monocytes #) system which generated this result tra nsmitted reference range : <=0.8. The reference r niko was not used to int erpret this result as normal/abnormal . [facility] CentennialBehxficSYJSOUBXJJ8022-37-73 08:52:00 Test Item Value Reference Range Interpretation Comments MPV (test code = MPV) 7.2 7.4-10.4 [facility] CentennialWxsrxiyNZVHPCVVKE1115-60-10 08:52:00 Test Item Value Reference Range Interpretation Comments RBC (test code = RBC) 4.05 4.70-6.10 [facility] CentennialPudagaoCATZNHMRWS2981-82-34 08:52:00 Test Item Value Reference Range Interpretation Comments WBC (test code = WBC) 13.6 3.7-10.4 [facility] CentennialBeoitoePLNLYPNSCR5203-00-98 08:52:00 Test Item Value Reference Range Interpretation Comments Hct (test code = Hct) 33.1 42.0-54.0 [facility] CentennialFtzznezXJRMUUTNDH8009-66-00 08:52:00 Test Item Value Reference Range Interpretation Comments Hgb (test code = Hgb) 10.6 14.0-18.0 [facility] CentennialEuwdfhhLDPPIWRUIS3764-75-66 08:52:00 Test Item Value Reference Range Interpretation Comments MCHC (test code = MCHC) 32.1 32.0-36.0 [facility] CentennialGlaqmgwUXVDPWMYNZ8404-15-41 08:52:00 Test Item Value Reference Range Interpretation Comments MCH (test code = MCH) 26.3 pg 27.0-31.0 [facility] CentennialGcwdpcuNXFQHOGKLQ1034-06-53 08:52:00 Test Item Value Reference Range Interpretation Comments RDW (test code = RDW) 16.5 11.5-14.5 [facility] CentennialOxaaebiZRLTANXCCS3102-58-30 08:52:00 Test Item Value Reference Range Interpretation Comments Platelet (test code = Platelet) 201 133-450 [facility] CentennialLapfoehLQRMUOPLOQ6594-85-68 08:52:00 Test Item Value Reference Range Interpretation Comments MCV (test code = MCV) 81.8 80.0-94.0 [facility] CentennialIjjjdlbEOSOZWLKCM7184-46-99 14:10:00 Test Item Value Reference Range Interpretation Comments POC Hemoglobin (test code = POC 13.9 14.0-18.0 Hemoglobin) [facility] CentennialGzptsaoJMUIKBLYZP7540-85-25 14:10:00 Test Item Value Reference Range Interpretation Comments POC Ion Ca (test code = POC Ion Ca) 1.23 1.05-1.25 [facility] CentennialUhwikvrZTTRIPETWT0419-73-53 14:10:00 Test Item Value Reference Range Interpretation Comments POC Hematocrit (test code = POC 41.0 42.0-54.0 Hematocrit) [facility] CentennialJbpetsdVMCPVKHQIA7953-07-87 14:10:00 Test Item Value Reference Range Interpretation Comments POC AGAP (test code = POC AGAP) 16.0 10.0-20.0 [facility] CentennialRuvwuopTXYUCRSKMH5062-63-27 14:10:00 Test Item Value Reference Range Interpretation Comments eGFR (test code = eGFR) 83 [facility] CentennialLcgeehpDZUJINUTYM2776-31-58 14:10:00 Test Item Value Reference Range Interpretation Comments POC Carbon Dioxide (test code = POC 26 24-32 Carbon Dioxide) [facility] CentennialOzwecqzBEPOLBJAER8399-07-58 14:10:00 Test Item Value Reference Range Interpretation Comments POC BUN (test code = POC BUN) 12 7-22 [facility] CentennialOiixjekOXHQCURRPP9452-55-47 14:10:00 Test Item Value Reference Range Interpretation Comments POC Creatinine (test code = POC 0.9 0.5-1.4 Creatinine) [facility] CentennialWkonqvyQDDIHVZKQM1411-61-67 14:10:00 Test Item Value Reference Range Interpretation Comments POC Glucose (test code = POC Glucose) 117 70-99 [facility] CentennialDzohkgsJHWMETXNJQ0179-09-91 14:10:00 Test Item Value Reference Range Interpretation Comments POC Sodium (test code = POC Sodium) 140 135-145 [facility] CentennialPwxkvmdQRDSSRRNDL1476-68-16 14:10:00 Test Item Value Reference Range Interpretation Comments POC Potassium (test code = POC 4.4 3.5-5.1 Potassium) [facility] CentennialPxrldchLKNTVGIMAC0206-78-84 14:10:00 Test Item Value Reference Range Interpretation Comments POC Chloride (test code = POC Chloride) 103 95-109 [facility] CentennialKrouzgvPIESAHMYGA4270-02-82 14:10:00 Test Item Value Reference Range Interpretation Comments POC Hemoglobin (test code = POC 13.9 14.0-18.0 Hemoglobin) [facility] CentennialQvzcsdtFIDSVYEVFW8877-45-72 14:10:00 Test Item Value Reference Range Interpretation Comments POC Ion Ca (test code = POC Ion Ca) 1.23 1.05-1.25 [facility] CentennialDdlpzinEOLXNUSUOW4845-91-08 14:10:00 Test Item Value Reference Range Interpretation Comments POC Hematocrit (test code = POC 41.0 42.0-54.0 Hematocrit) [facility] CentennialMibiwciQGZTBDCPSF5836-28-42 14:10:00 Test Item Value Reference Range Interpretation Comments POC AGAP (test code = POC AGAP) 16.0 10.0-20.0 [facility] CentennialFpnigreLDKLBVTTUE8804-02-81 14:10:00 Test Item Value Reference Range Interpretation Comments eGFR (test code = eGFR) 83 [facility] CentennialZwptsugRQMYOXRKKD7730-11-29 14:10:00 Test Item Value Reference Range Interpretation Comments POC Carbon Dioxide (test code = POC 26 24-32 Carbon Dioxide) [facility] CentennialUsgprevURENQCECFG2501-04-46 14:10:00 Test Item Value Reference Range Interpretation Comments POC BUN (test code = POC BUN) 12 7-22 [facility] CentennialHkqxfnlXCZBMFSHOS3184-13-73 14:10:00 Test Item Value Reference Range Interpretation Comments POC Creatinine (test code = POC 0.9 0.5-1.4 Creatinine) [facility] CentennialQhjhpovCKXQQJOLUJ6897-73-74 14:10:00 Test Item Value Reference Range Interpretation Comments POC Glucose (test code = POC Glucose) 117 70-99 [facility] CentennialZmyqbodMJWTCVNOZA1380-57-93 14:10:00 Test Item Value Reference Range Interpretation Comments POC Sodium (test code = POC Sodium) 140 135-145 [facility] CentennialAknwxtbREWOYFJHLZ7909-15-85 14:10:00 Test Item Value Reference Range Interpretation Comments POC Potassium (test code = POC 4.4 3.5-5.1 Potassium) [facility] CentennialSywcuzbJGVYYXJJAB5388-11-75 14:10:00 Test Item Value Reference Range Interpretation Comments POC Chloride (test code = POC Chloride) 103 95-109 [facility]] HEPATITIS MIQDU8283-72-60 12:10:01 Test Item Value Reference Range Interpretation Comments Hepatitis B Surface Antigen (test Negative Negative code = 5195-3) Hepatitis C Antibody (test code = Negative 21936-8) Hepatitis B Core IgM (test code = Negative Negative 06303-5) Hepatitis A IgM (test code = Negative Negative 97204-2) [facility]] VITAMIN [id number] 12:10:01 Test Item Value Reference Range Interpretation Comments Vitamin B12 Level (test code = 742 pg/ml 254-1320 2132-9) [facility]] TSH, 3RD GENERATION W/REFLEX TO [id number] 12:10:01 Test Item Value Reference Range Interpretation Comments TSH; Above High Threshold 5.100 {uIU/ml} 0.360-3.740 (test code = 25669-3) [facility]] T4, [id number] 12:10:01 Test Item Value Reference Range Interpretation Comments T4 Free (test code = 3024-7) 1.06 ng/dl 0.76-1.46 [facility]] FOLATE, [id number] 12:10:01 Test Item Value Reference Range Interpretation Comments Folate Level (test code = 2284-8) 31.8 ng/ml >=3.0 [facility]] NORMA PANEL, [id number] 12:10:01 Test Item Value Reference Range Interpretation Comments Antinuclear Antibody Negative Negative Marked Cytoplamic Screen (test code = staining 04763-8) present.Because the NORMA was Negativ e, the Reflex assays f or Anti-dsDNA, SM/ MOLD FILLING OPERATOR, [place] (SSA/S SB) were not perfor med. [facility][QL] VITAMIN [id number] 12:10:01 Test Item Value Reference Range Interpretation Comments Vitamin B6 18.4 {UG/L} 5.3-46.7 This test was d eveloped and its Level (test performance code = characteristics determined by Vitamin B6 [facility]. It has not been Level) cleared orappro vanesa by the Food and Drug Administration. Performed At: [facility] [id number] ra Wilson VASQUEZ Ph:[phone] [facility][QLH] VITAMIN B1, WHOLE [id number] 12:10:01 Test Item Value Reference Range Interpretation Comments Vitamin B1 172.1 66.5-200.0 This test was d eveloped and its Level (test nmol/L performance code = characteristics determined by Vitamin B1 [facility]. It has not been Level) cleared orappro vanesa by the Food and Drug Administration. Performed At: [facility] [id number] ra Wilson VASQUEZ Ph:[phone] [facility][H] Immunofixation [id number] 12:10:01 Test Item Value Reference Range Interpretation [...] con cur with theresiden t's interpretation. CPT 60753-ELRjovrdh zenia Signature Enoch Chang (Path) 05/10 1:21 PM [facility][H] Immunofixation Eletrophoresis [id number] 12:10:01 Test Item Value Reference Range Interpretation [...] s andconcur with the resident's interpretation. CPT 06917-DAVtrtfcd zenia Signature Enoch Chang (Path) 05/10 1:30 PM [facility] [id number] 18:54:00 Test Item Value Reference Range Interpretation Comments POC Creatinine (test code = POC 1.1 0.5-1.4 Creatinine) [facility] [id number] 18:54:00 Test Item Value Reference Range Interpretation Comments eGFR (test code = eGFR) 65 [facility] [id number] 18:54:00 Test Item Value Reference Range Interpretation Comments eGFR (test code = eGFR) 65 [facility] [id number] 18:54:00 Test Item Value Reference Range Interpretation Comments POC Creatinine (test code = POC 1.1 0.5-1.4 Creatinine) [facility] Arthrocentesis Major Joint [id number] 13:12:00EXAM: FLUOROSCOPY-GUIDED LEFT SHOULDER ASPIRATIONDATE: 04/22/2018 13:12 CSTINDICATION: - M19.012 Primary osteoarthritis, left shoulderCOMPARISON: MRI dated 04/18/2018PRE-PROCEDURE:Consent: An informed consent was obtained from patient prior to the procedure.Appropriate time out procedures were performed. PROCEDURE:The skin was prepped and draped in the usual fashion under aseptic precautions.1% lidocaine was utilized for local anesthesia.Under fluoroscopic guidance a 22 gauge long spinal needle was used to accessthe shoulder joint.Approximately 2 mL of thick, clear synovial fluid was aspirated from the shoulder joint.No immediate complications.Preprocedure pain score: 0- 4/10Postprocedure pain score: 0/10FLUORO TIME: 8 secondsDr. John Freeman, attending, was present for the procedure.IMPRESSION: Technically successful fluoroscopy-guided left shoulder injection.--This report was dictated by a Telex Operator/Fellow/Physician Meat Cutting Teacher. Ihave personallyreviewed the images as well as the interpretation and agree with the findings.Read by: Katty Mondragon MD Resident/Fellow/PhysicianAssistant: Katty Mondragon MDDictated Date/time: 04/23/18 12:56Electronically Signed by: John Freeman MD 04/24/1899:23FINAL REPORTUT [facility][LH] AFB Culture and Smear,[id number] 13:00:01 Test Item Value Reference Range Interpretation Comments AFB Culture and Cancel Reason: QNS Smear,Broth (test code = AFB Culture and Smear,Broth) [facility][QH] CULTURE, FUNGUS W/SMEAR NOT HAIR, SKIN, [id number] 13:00:01 Test Item Value Reference Range Interpretation Comments CULTURE, FUNGUS W/SMEAR Cancel Reason: QNS NOT HAIR, SKIN, BLOOD (test code = CULTURE, FUNGUS W/SMEAR NOT HAIR, SKIN, BLOOD) [facility][H] Crystal Exam Body [id number] 13:00:01 Test Item Value Reference Range Interpretation Comments Crystal Exam Body Fluid Cancel Reason: QNS (test code = Crystal Exam Body Fluid) [facility][H] BF Cell Cnt w/[id number] 13:00:01 Test Item Value Reference Range Interpretation Comments BF Cell Cnt w/Diff (test Cancel Reason: QNS code = BF Cell Cnt w/Diff) [facility][H] C Synov w/[id number] 13:00:01 Test Item Value Reference Range Interpretation Comments FINAL REPORT (test No Growth At 14 Source Details: pf code = FINAL Days bottle only REPORT) [facility] cervical wo contrast [id number] 16:57:00 Test Item Value Reference Range Interpretation Comments Spine cervical wo Cancel Reason: contrast MRI (test Duplicate Order code = Spine cervical wo contrast MRI) [facility] Shoulder wo contrast 16:23:00 Test Item Value Reference Range Interpretation Comments Shoulder wo contrast MR Cancel Reason: Exam (test code = Shoulder Replaced wo contrast MR) [facility] Shoulder w/wo contrast [id number] 16:23:00MRI of the LEFT shoulderINDICATION: Shoulder pain.COMPARISON: No prior studies available for comparison.TECHNIQUE: Multiplanar multisequence MRI pre and post 20 mL of Dotaremgadolinium contrast.FINDINGS: This study is significantly limited from the susceptibility artifactcreated by the posterior surgical hardware within the glenoid. This limitsevaluation of adjacent structures.ROTATOR CUFF AND ASSOCIA VASYL STRUCTURESRotator cuff: No definitive full-thickness tear of the supraspinatus,infraspinatus, and teres minor. There is a partial-thickness articular surfacetear of the supraspinatus insertion measuring about 4 mm in AP dimension andinvolving slightly greater than 50% tendon thickness (series 201, image 10).Subscapularis not well seen.Bursa: No significant bursal [...] is fluid within the biceps tendon sheathwhich appea rs septated.GLENOHUMERAL JOINTJoint fluid: Probable small joint effusion.Cartilage [...] changes andmarrow edema in the glenoid. Suspect at least moderate osteoarthritis of theglenohumeral joint.5. 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 There are no fractures or compression deformities. The thoracic spineposterior elements are normal. The costovertebral junctions are unremarkable.SPINAL CORD: Thethoracic spine spinal cord is normal in size and signal. TheCSF space is unremarkable. The conus medullaris ends at the L1 level.DISK SPACES: The discs are desiccated throughout the thoracic spine. Multilevelmoderate-severe disc height loss throughout the lower thoracic spine from T8-D6hfvmfty T12-L1 is seen with scattered Modic type I degenerative endplatechanges. There are small annular disc bulgeswith superimposed mild to moderatefacet arthrosis at the levels of T8-T9 and T9-T10. Moderate-sized annular discbulge with advanced facet arthrosis at T10-T11 is seen with mild spinal canalstenosis andmoderate bilateral neural foraminal narrowing. Small annular discbulge with moderate facet arthrosisat T11-T12 is also seen with resulting mildleft neural foraminal narrowing.IMPRESSION:1. No acute bony abnormality of the thoracic spine.2. Degenerative changes of the lower thoracic spine with mild spinal canalstenosis at T10-T11.SL: [id number]--Syfl by: Zurdo Luna MDDictated Date/time: 04/16/18 13:50Electronically Signed by: Zurdo Luna MD 04/16/1912:55FINAL REPORTUT [facility] Spine lumbar wo contrast [id number] 2018-04-16 10:57:00Clinical Indication: M54.16 Radiculopathy, lumbar region - M54.16 Radiculopathy, lumbar region 77-year-old male with back pain for many years.Patient had lumbar surgery done in 2017 weakness in the right leg.Comparison: Plain film of the lumbar spine [...] postoperative changes oflaminectomies from L3 through L5 and posterior spinal fusion from L3 through S1and an anterior fusion at L5-S1. Retrolisthesis of L1 is seenon L2 by 1.6 mm,retrolisthesis of L2 is seen on L3 by 4 mm and anterolisthesis of L4 on L5 by3.6 mm.Degenerative infiltration is seen in the endplates around the discspaces about the lumbar spine but especially at the level of L2-L3 and L3- L4.The remainder of the bone marrow is normal for the patient's age. There is no fracture. The anterior and posterior paraspinal soft tissues arenormal. The conusmedullaris ends at the L1 level. Five lumbar vertebral bodiesare confirmed on plain films dated 03/14/2016.DISC SPACES:T11-T12: Mild to moderate disc space narrowing is seen. A shallow focalprotrusion measures 1.6 mm in its AP dimension. No abnormality is seen in thevisualized lower thoracic cord. No n arrowing of the spinal canal or the neuralforamina is seen.T12-L1: Mild to moderate disc space narrowing is seen with diffuse decreased Z4ubzndi. An extruded disc herniation is seen migrating to the level of thesuperior endplate of L1 in the left lateral recess measuring 11 mm CC x 2.6 mmx 6.5 mm. Mild bilateral facet arthropathies are seen.L1-L2: Mild disc space narrowing is seen. A focal protrusionto the left ofmidline measures 2.8 mm in its AP dimension. There is no central or foraminalstenosis.Mild bilateral facet arthropathies are seen.L2-L3: Advanced disc space narrowing is seen with spondylosis. A broadbaseosteophyte disc complex is seen measuring 6 mm in its AP dimension. Nosignificant narrowing of the central spinal canal seen. Moderate right andmoderately advanced left narrowing of the neural foramina due to osteophyticridging off the inferior endplate of L2.L3-L4: Mild disc space garret rowing is seen with diffuse decreased T2 signal. Mildosteophytic ridging is seen in the lateral recesses worse on the left than theright. Mild narrowing of the neural foramina is seen. Postoperative changes ofbilateral laminectomies are seen. The posterior fluid collection relatedmeasuring 3 cm x 1.1 cm x 1.6 cm and is smaller than the fluid collection seenon the exam 03/16/2016.L4-L5: Mild disc space narrowing is seen with diffuse decreased signalintensity [...] decreased in size since the magnetic resonance zpueele8203/16/2016.SL: [id number]--Wqub by: Nasim Rahmanictated Date/time: 04/16/18 13: 10Electronically Signed by: Nasim Rahman MD 04/16/1912:38FINAL REPORTUT PhysiciansMRI Spine cervical wo contrast [id number] 10:56:00Study: Spine cervical wo contrast MRIClinical Indication: M54.12 Radiculopathy, cervical region - M54.12 Radiculopathy, cervical regionComparison: NoneTECHNIQUE: Multiplanar, multisequence magnetic resonance imaging of thecervical spine was performed without the administration of intravenousgadolinium contrast.FINDINGS:There is grade 1 anterolisthesis of C3 over C4 by 1 mm. No focal marrow signalabnormality is present. The prevertebral soft tissues, atlanto-dentalinterspace, and craniocervical junction are within normal limits. Thevisualized brainstem region is unremarkable. The cervical spinal cord is normalin size and signal.The discs are [...] the thecal sac measuring 9.5 mm AP dimension.Severe left and mild right neural foraminal narrowing is present.C4-C5: Large circumferential disc osteophyte co mplex with superimposeduncovertebral arthrosis is seen. Mild facet arthrosis is present. There is mildto moderate spinal canal stenosis with thecal sac measuring 8.5 mm APdimension. Severe bilateral neural foraminal narrowing is present.C5-C6: Large circumferential disc osteophyte complex with superimp oseduncovertebral arthrosis is seen. Mild facet arthrosis is noted. There is mildto moderate spinal canal stenosis with thecal sac measuring 8.5 mm APdimension. Moderate-severe bilateral neural foraminal narrowing, left greaterthan right, is present.C6-C7: Large circumferential disc osteophyte complexwith superimposeduncovertebral arthrosis is seen. Mild facet arthrosis is noted. There is mildspinalcanal stenosis with the thecal sac measuring 9 mm AP dimension. Severebilateral neural foraminal narrowing is noted.C7-T1: Negative for significant disc bulge [...] foraminal narrowing, left greater than right.4. C6-C7 mild spinal canal stenosis with severe bilateral neural foraminalnarrowing.SL: [id number]--Bgda by: Sabino Lunaictated Date/time: 04/16/18 13:41Electronically Signed by: Zurdo Luna MD 04/16/1912:49FINAL REPORT[facility][U] XRAY SHOULDER MIN 2 VWS LEFT [id number] 10:47:00Images acquired, not reported on this accession number.[facility][U] XRAY SPINE CERVICAL 2 OR 3 VWS [id number] 13:29:00 Images acquired, not reported on this accession number.[facility][U] XRAY SPINE LUMBOSACRAL 2 OR 3 VWS [id number] 13:29:00Images acquired, not reported on this accession number.[facility]iciansGlucose (Point of Care In Office) 2017-12-12 13:47:00 Test Item Value Reference Range Interpretation Comments Glucose POC Lifescan (test code = 137 Glucose POC Lifescan) External QC Done Today? (test code = Yes External QC Done Today?) [facility][H] Allergens, Inhalants, Comprehensive [id number] 14:29:01 Test Item Value Reference Range Interpretation Comments Class Description (test Comment Aleks cowan of Specific code = Class Description) Ig E Class Description of Class ---- -------- ----- ---- - < 0.10 0 Nega tive 0.10 - 0.31 0/ I Equivocal/Low 0 .32 - 0.55 I Low 0. 56 - 1.40 II Moderat e 1.41 - 3.90 III High 3.91 - 19 .00 IV Very High 19 .01 - 100.00 V Very High >100.00 Very High IgE Level (test code = 2 {IU/ml} 0-100 91660-6) Allergen, Aspergillus <0.10 Class 0 fumigatus (test [...] Jose) Allergen, Grass, <0.10 Class 0 Perennial [place] (test code = Allergen, Grass, Perennial [place]) Allergen, Grass, Pablo <0.10 Class 0 (test code = Allergen, Grass, Pablo) Allerg Horse Dander (test <0.10 Class 0 code = Allerg Horse Dander) Allergen House Dust Arnold <0.10 Class 0 (test code = Allergen House Dust Arnold) Allergen, Penicillium <0.10 Class 0 chrysogen (test code = Allergen, Penicillium chrysogen) Allergen, Tree, <0.10 Class 0 [place] (test code = Allergen, Tree, [place]) Allergen, Tree, Elm (test <0.10 Class 0 code = Allergen, Tree, Elm) Allergen, Tree, Mountain <0.10 Class 0 [place] (test code = Allergen, Tree, [place]) Allergen, Tree, [place] <0.10 Class 0 (test code = Allergen, Tree, [place]) Allergen, Tree, Fifty Six <0.10 Class 0 (test code = Allergen, Tree, Fifty Six) Allerg Tree [place] <0.10 Class 0 (test code = Allerg Tree [place]) Allergen, [place], <0.10 Class 0 Common/Short Ragweed (test code = Allergen, [place], Common/Short Ragweed) Allergen, [place], Mugwort <0.10 Class 0 (test code = Allergen, [place], Mugwort) Allergen, [place], [place] <0.10 Class 0 Plantain (test code = Allergen, [place], [place] Plantain) Allergen, [place], Lambs <0.10 Class 0 Perfor med At: Quarters (test code = [facility] p Allergen, [place], Lambs [place]lin [id number] [facility] [place], [place] [id number] deepti Woo MD Ph:[phone] [facility][O] Hemoglobin A1c (in office)2017-11-05 00:00:00 Test Item Value Reference Range Interpretation Comments HEMOGLOBIN A1c (test code = 4548-4) 8.9 External QC Done? (test code = External Yes QC Done?) [facility][U] XRAY SPINE LUMBOSACRAL 2 OR 3 VWS [id number] 08:46:00 Images acquired, not reported on this accession number.[facility] [id number] 21:55:00 Test Item Value Reference Range Interpretation Comments Test Name (test code = Test BROAD RANGE PCR Name) [facility] [id number] 21:55:00 Test Item Value Reference Range Interpretation Comments Misc Lab (test code = Misc Lab) SEE COMMENT [facility]annREFERENCE LAB [id number] 21:55:00 Test Item Value Reference Range Interpretation Comments Test Name (test code = Test BROAD RANGE PCR Name) [facility] [id number] 21:55:00 Test Item Value Reference Range Interpretation Comments Misc Lab (test code = Misc Lab) SEE COMMENT [facility] [id number] 12:00:00 Test Item Value Reference Range Interpretation Comments Bili Total (test code = Bili Total) 1.1 0.2-1.3 [facility]2018-02-23 12:00:00 Test Item Value Reference Range Interpretation Comments Alk Phos (test code = Alk Phos) 85 39-136 [facility]2018-02-23 12:00:00 Test Item Value Reference Range Interpretation Comments Total Protein (test code = Total 5.9 6.4-8.4 Protein) [facility]2018-02-23 12:00:00 Test Item Value Reference Range Interpretation Comments B/C Ratio (test code = B/C Ratio) 7 1 6-25 [facility]2018-02-23 12:00:00 Test Item Value Reference Range Interpretation Comments AGAP (test code = AGAP) 11.7 10.0-20.0 [facility]2018-02-23 12:00:00 Test Item Value Reference Range Interpretation Comments A/G Ratio (test code = A/G Ratio) 0.8 1 0.7-1.6 [facility]2018-02-23 12:00:00 Test Item Value Reference Range Interpretation Comments Globulin (test code = Globulin) 3.2 2.7-4.2 [id number] 12:00:00 Test Item Value Reference Range Interpretation Comments Monocytes (test code = Monocytes) 6.7 2.0-12.0 [facility] C[id number] 12:00:00 Test Item Value Reference Range Interpretation Comments Eosinophils (test code = 1.7 See_Comment [A utomated message] The Eosinophils) system which ge nerated this result tra nsmitted reference range : <=4.0. The reference r niko was not used to int erpret this result as normal/abnormal . [facility] CentennialKmexhtyWLIYLAPLMD1688-66-13 12:00:00 Test Item Value Reference Range Interpretation Comments Segs (test code = Segs) 73.3 45.0-75.0 [facility] Cen[id number] 12:00:00 Test Item Value Reference Range Interpretation Comments Lymphocytes (test code = Lymphocytes) 17.8 20.0-40.0 [facility] CentennialTaqxlllVUPIBUERLC3177-02-77 12:00:00 Test Item Value Reference Range Interpretation Comments Lymphocytes # (test code = Lymphocytes 1.5 1.0-5.5 #) [facility] Cen[id number] 12:00:00 Test Item Value Reference Range Interpretation Comments Basophils (test code = 0.5 See_Comment [Aut omated message] The Basophils) system which ge nerated this result tra nsmitted reference range : <=1.0. The reference r niko was not used to int erpret this result as normal/abnormal . [facility] CentennialZxaavdcPALGRUBOTF1810-27-52 12:00:00 Test Item Value Reference Range Interpretation Comments Segs-Bands # (test code = Segs-Bands #) 6.0 1.5-8.1 [facility] CentennialHlemsplXBDQVXQTCH2951-78-20 12:00:00 Test Item Value Reference Range Interpretation Comments Monocytes # (test code 0.6 See_Comment [Aut omated message] The = Monocytes #) system which generated this result tra nsmitted reference range : <=0.8. The reference r niko was not used to int erpret this result as normal/abnormal . [facility] CentennialRyowbuvLKUKWEXKZH7276-15-26 12:00:00 Test Item Value Reference Range Interpretation Comments Microcyte (test code = 1+ *ABN*(05/18/17 Microcyte) 6:00 AM) [facility] CentennialLzzdcgkUDXVPJOGKV8392-26-13 12:00:00 Test Item Value Reference Range Interpretation Comments Eosinophils # (test code 0.1 See_Comment [A utomated message] The = Eosinophils #) system whic h generated this result tra nsmitted reference range : <=0.5. The reference r niko was not used to int erpret this result as normal/abnormal . [facility] CentennialQajomojBXPSPLSHKI3140-90-70 12:00:00 Test Item Value Reference Range Interpretation Comments MPV (test code = MPV) 7.0 7.4-10.4 [facility] CentennialWdexjzrVTTYPRXWLV9733-85-19 12:00:00 Test Item Value Reference Range Interpretation Comments Platelet (test code = Platelet) 317 133-450 [facility] CentennialFjqqpchZPBVEOBDOR5728-55-12 12:00:00 Test Item Value Reference Range Interpretation Comments WBC (test code = WBC) 8.2 3.7-10.4 [facility] CentennialOnmvychVXHGVYGCHS3856-49-01 12:00:00 Test Item Value Reference Range Interpretation Comments Hgb (test code = Hgb) 9.6 14.0-18.0 [facility] CentennialHlcpvzcCNXOROSDDT2934-35-56 12:00:00 Test Item Value Reference Range Interpretation Comments Hct (test code = Hct) 29.0 42.0-54.0 [facility] CentennialKlcnrwcJMAKFISNIZ8704-26-20 12:00:00 Test Item Value Reference Range Interpretation Comments RBC (test code = RBC) 3.79 4.70-6.10 [facility] CentennialIpulqhfAKEGCIFADC6474-97-55 12:00:00 Test Item Value Reference Range Interpretation Comments RDW (test code = RDW) 15.5 11.5-14.5 [facility] CentennialAopewwoLMYMSYFBQV8951-77-52 12:00:00 Test Item Value Reference Range Interpretation Comments MCHC (test code = MCHC) 33.0 32.0-36.0 [facility] CentennialNyvrpjiAJYHITILBC8189-70-27 12:00:00 Test Item Value Reference Range Interpretation Comments MCV (test code = MCV) 76.5 80.0-94.0 [facility] CentennialOhtinpvFFXAIOEHED5093-11-19 12:00:00 Test Item Value Reference Range Interpretation Comments MCH (test code = MCH) 25.3 pg 27.0-31.0 [facility]2018-02-23 12:00:00 Test Item Value Reference Range Interpretation Comments eGFR (test code = eGFR) 87 [facility]2018-02-23 12:00:00 Test Item Value Reference Range Interpretation Comments ALT (test code = ALT) 10 See_Comment [Auto mated message] The system which ge nerated this result transmit vasyl reference range : <=65. The reference range was not used to interpr et this result as minnie l/abnormal. [facility]2018-02-23 12:00:00 Test Item Value Reference Range Interpretation Comments Creatinine Lvl (test code = Creatinine 0.82 0.50-1.40 Lvl) [facility]2018-02-23 12:00:00 Test Item Value Reference Range Interpretation Comments AST (test code = AST) 7 See_Comment [Auto mated message] The system which ge nerated this result transmit vasyl reference range : <=37. The reference range was not used to interpr et this result as minnie l/abnormal. [facility]2018-02-23 12:00:00 Test Item Value Reference Range Interpretation Comments BUN (test code = BUN) 6 7-22 [facility]2018-02-23 12:00:00 Test Item Value Reference Range Interpretation Comments Glucose Lvl (test code = Glucose Lvl) 134 70-99 [facility]2018-02-23 12:00:00 Test Item Value Reference Range Interpretation Comments Potassium Lvl (test code = Potassium 3.7 3.5-5.1 Lvl) [facility]2018-02-23 12:00:00 Test Item Value Reference Range Interpretation Comments Sodium Lvl (test code = Sodium Lvl) 141 135-145 [facility]2018-02-23 12:00:00 Test Item Value Reference Range Interpretation Comments Albumin Lvl (test code = Albumin Lvl) 2.7 3.5-5.0 [facility]2018-02-23 12:00:00 Test Item Value Reference Range Interpretation Comments Calcium Lvl (test code = Calcium Lvl) 8.3 8.5-10.5 [facility]2018-02-23 12:00:00 Test Item Value Reference Range Interpretation Comments CO2 (test code = CO2) 28 24-32 [facility]2018-02-23 12:00:00 Test Item Value Reference Range Interpretation Comments Chloride Lvl (test code = Chloride Lvl) 105 95-109 [facility]2018-02-23 12:00:00 Test Item Value Reference Range Interpretation Comments Bili Total (test code = Bili Total) 1.1 0.2-1.3 [facility]2018-02-23 12:00:00 Test Item Value Reference Range Interpretation Comments Alk Phos (test code = Alk Phos) 85 39-136 [facility]2018-02-23 12:00:00 Test Item Value Reference Range Interpretation Comments Total Protein (test code = Total 5.9 6.4-8.4 Protein) [facility]2018-02-23 12:00:00 Test Item Value Reference Range Interpretation Comments B/C Ratio (test code = B/C Ratio) 7 1 6-25 [facility]2018-02-23 12:00:00 Test Item Value Reference Range Interpretation Comments AGAP (test code = AGAP) 11.7 10.0-20.0 [facility] [id number] 12:00:00 Test Item Value Reference Range Interpretation Comments A/G Ratio (test code = A/G Ratio) 0.8 1 0.7-1.6 [facility] [id number] 12:00:00 Test Item Value Reference Range Interpretation Comments Globulin (test code = Globulin) 3.2 2.7-4.2 [facility]ZxqyvmhHEPXCHQCXV0672-81-39 12:00:00 Test Item Value Reference Range Interpretation Comments Monocytes (test code = Monocytes) 6.7 2.0-12.0 [facility]ennialVkzjffgNQAYCLTTVE2890-58-14 12:00:00 Test Item Value Reference Range Interpretation Comments Eosinophils (test code = 1.7 See_Comment [A utomated message] The Eosinophils) system which ge nerated this result tra nsmitted reference range : <=4.0. The reference r niko was not used to int erpret this result as normal/abnormal . [facility]ennialLutlhwfWHJDFRXQOS6655-54-21 12:00:00 Test Item Value Reference Range Interpretation Comments Segs (test code = Segs) 73.3 45.0-75.0 [facility]ennialIzdkzoyCZOQBQBVAR5547-69-39 12:00:00 Test Item Value Reference Range Interpretation Comments Lymphocytes (test code = Lymphocytes) 17.8 20.0-40.0 [facility]ennialMskvvjhFMDCNYZTXM6619-58-64 12:00:00 Test Item Value Reference Range Interpretation Comments Lymphocytes # (test code = Lymphocytes 1.5 1.0-5.5 #) [facility]ennialWavxxngRYWTIUIYVW0386-06-68 12:00:00 Test Item Value Reference Range Interpretation Comments Basophils (test code = 0.5 See_Comment [Aut omated message] The Basophils) system which ge nerated this result tra nsmitted reference range : <=1.0. The reference r niko was not used to int erpret this result as normal/abnormal . [facility]ennialDmhmlavSPMGMBAPWE8722-76-60 12:00:00 Test Item Value Reference Range Interpretation Comments Segs-Bands # (test code = Segs-Bands #) 6.0 1.5-8.1 [facility]ennialGuimjhuEWUIZKSIUW1253-81-13 12:00:00 Test Item Value Reference Range Interpretation Comments Monocytes # (test code 0.6 See_Comment [Aut omated message] The = Monocytes #) system which generated this result tra nsmitted reference range : <=0.8. The reference r niko was not used to int erpret this result as normal/abnormal . [facility]ennialNnwwlrpCQIIZDPEXZ3664-25-40 12:00:00 Test Item Value Reference Range Interpretation Comments Microcyte (test code = 1+ *ABN*(05/18/17 Microcyte) 6:00 AM) [facility]ennialGehbrbbAFVWHVPXAW3116-96-75 12:00:00 Test Item Value Reference Range Interpretation Comments Eosinophils # (test code 0.1 See_Comment [A utomated message] The = Eosinophils #) system whic h generated this result tra nsmitted reference range : <=0.5. The reference r niko was not used to int erpret this result as normal/abnormal . [facility]ennialUzwsoxmVLDPRWVRKK6233-11-23 12:00:00 Test Item Value Reference Range Interpretation Comments MPV (test code = MPV) 7.0 7.4-10.4 [facility]ennialBgcxmmlGOUSBKPTJE8071-03-04 12:00:00 Test Item Value Reference Range Interpretation Comments Platelet (test code = Platelet) 317 133-450 [facility] CentennialQpptlwyIEBDMYGXOD6434-37-01 12:00:00 Test Item Value Reference Range Interpretation Comments WBC (test code = WBC) 8.2 3.7-10.4 [facility] CentennialAlzncogFIMSNHZWFC1181-84-71 12:00:00 Test Item Value Reference Range Interpretation Comments Hgb (test code = Hgb) 9.6 14.0-18.0 [facility]ennialApfehudETTDNBVSMJ2197-68-42 12:00:00 Test Item Value Reference Range Interpretation Comments Hct (test code = Hct) 29.0 42.0-54.0 [facility] CentennialQougwrtBZBYZYTBFH1560-27-06 12:00:00 Test Item Value Reference Range Interpretation Comments RBC (test code = RBC) 3.79 4.70-6.10 [facility] CentennialOyttmaaETIKRZJGVL4068-90-21 12:00:00 Test Item Value Reference Range Interpretation Comments RDW (test code = RDW) 15.5 11.5-14.5 [facility] CentennialZitprouOPSGHSYWXU6716-10-22 12:00:00 Test Item Value Reference Range Interpretation Comments MCHC (test code = MCHC) 33.0 32.0-36.0 [facility] CentennialJaipednQEJRNXCHDA4072-57-19 12:00:00 Test Item Value Reference Range Interpretation Comments MCV (test code = MCV) 76.5 80.0-94.0 [facility] CentennialCktfuloPBIMPIZRUM9226-76-22 12:00:00 Test Item Value Reference Range Interpretation Comments MCH (test code = MCH) 25.3 pg 27.0-31.0 [facility]2018-02-23 12:00:00 Test Item Value Reference Range Interpretation Comments eGFR (test code = eGFR) 87 [facility]2018-02-23 12:00:00 Test Item Value Reference Range Interpretation Comments ALT (test code = ALT) 10 See_Comment [Auto mated message] The system which ge nerated this result transmit vasyl reference range : <=65. The reference range was not used to interpr et this result as minnie l/abnormal. [facility]2018-02-23 12:00:00 Test Item Value Reference Range Interpretation Comments Creatinine Lvl (test code = Creatinine 0.82 0.50-1.40 Lvl) [facility]2018-02-23 12:00:00 Test Item Value Reference Range Interpretation Comments AST (test code = AST) 7 See_Comment [Auto mated message] The system which ge nerated this result transmit vasyl reference range : <=37. The reference range was not used to interpr et this result as minnie l/abnormal. [facility]2018-02-23 12:00:00 Test Item Value Reference Range Interpretation Comments BUN (test code = BUN) 6 7-22 [facility]2018-02-23 12:00:00 Test Item Value Reference Range Interpretation Comments Glucose Lvl (test code = Glucose Lvl) 134 70-99 [facility]2018-02-23 12:00:00 Test Item Value Reference Range Interpretation Comments Potassium Lvl (test code = Potassium 3.7 3.5-5.1 Lvl) [facility]2018-02-23 12:00:00 Test Item Value Reference Range Interpretation Comments Sodium Lvl (test code = Sodium Lvl) 141 135-145 [place] 770948-02-23 12:00:00 Test Item Value Reference Range Interpretation Comments Albumin Lvl (test code = Albumin Lvl) 2.7 3.5-5.0 [facility]2018-02-23 12:00:00 Test Item Value Reference Range Interpretation Comments Calcium Lvl (test code = Calcium Lvl) 8.3 8.5-10.5 [facility]2018-02-23 12:00:00 Test Item Value Reference Range Interpretation Comments CO2 (test code = CO2) 28 24-32 [facility]2018-02-23 12:00:00 Test Item Value Reference Range Interpretation Comments Chloride Lvl (test code = Chloride Lvl) 105 95-109 [facility]2018-02-22 12:30:00 Test Item Value Reference Range Interpretation Comments Procalcitonin Lvl (test no gt See_Comment [Au tomated message] code = Procalcitonin Lvl) Th e system which generated this result transmitted ref erence range: <=0.10. The reference range was not used to interpr et this result as normal/abnormal . [facility]2018-02-22 12:30:00 Test Item Value Reference Range Interpretation Comments Procalcitonin Lvl (test no gt See_Comment [Au tomated message] code = Procalcitonin Lvl) Th e system which generated this result transmitted ref erence range: <=0.10. The reference range was not used to interpr et this result as normal/abnormal . [facility]2018-02-21 10:15:00 Test Item Value Reference Range Interpretation Comments Procalcitonin Lvl <0.05 ng/mL See_Comment [Automate d message] (test code = The system whic h Procalcitonin Lvl) generated this result transmit vasyl reference range : <=0.10. The reference range was not used to interpret this result as normal/abnormal . [facility]2018-02-21 10:15:00 Test Item Value Reference Range Interpretation Comments Globulin (test code = Globulin) 2.7 2.7-4.2 [facility]2018-02-21 10:15:00 Test Item Value Reference Range Interpretation Comments A/G Ratio (test code = A/G Ratio) 1.0 1 0.7-1.6 [facility]2018-02-21 10:15:00 Test Item Value Reference Range Interpretation Comments B/C Ratio (test code = B/C Ratio) 13 1 6-25 [facility]2018-02-21 10:15:00 Test Item Value Reference Range Interpretation Comments AGAP (test code = AGAP) 15.3 10.0-20.0 [facility]2018-02-21 10:15:00 Test Item Value Reference Range Interpretation Comments Bili Total (test code = Bili Total) 0.4 0.2-1.3 [facility]2018-02-21 10:15:00 Test Item Value Reference Range Interpretation Comments Alk Phos (test code = Alk Phos) 91 39-136 [facility]2018-02-21 10:15:00 Test Item Value Reference Range Interpretation Comments Total Protein (test code = Total 5.5 6.4-8.4 Protein) [facility]2018-02-21 10:15:00 Test Item Value Reference Range Interpretation Comments eGFR (test code = eGFR) 82 [facility]2018-02-21 10:15:00 Test Item Value Reference Range Interpretation Comments AST (test code = AST) 11 See_Comment [Auto mated message] The system which ge nerated this result transmit vasyl reference range : <=37. The reference range was not used to interpr et this result as minnie l/abnormal. [facility]2018-02-21 10:15:00 Test Item Value Reference Range Interpretation Comments ALT (test code = ALT) 12 See_Comment [Auto mated message] The system which ge nerated this result transmit vasyl reference range : <=65. The reference range was not used to interpr et this result as minnie l/abnormal. [facility]2018-02-21 10:15:00 Test Item Value Reference Range Interpretation Comments Creatinine Lvl (test code = Creatinine 0.92 0.50-1.40 Lvl) [facility]2018-02-21 10:15:00 Test Item Value Reference Range Interpretation Comments Glucose Lvl (test code = Glucose Lvl) 125 70-99 [facility]2018-02-21 10:15:00 Test Item Value Reference Range Interpretation Comments BUN (test code = BUN) 12 7-22 [facility]2018-02-21 10:15:00 Test Item Value Reference Range Interpretation Comments Sodium Lvl (test code = Sodium Lvl) 141 135-145 [facility]2018-02-21 10:15:00 Test Item Value Reference Range Interpretation Comments Chloride Lvl (test code = Chloride Lvl) 103 95-109 [facility]2018-02-21 10:15:00 Test Item Value Reference Range Interpretation Comments Potassium Lvl (test code = Potassium 4.3 3.5-5.1 Lvl) [facility]2018-02-21 10:15:00 Test Item Value Reference Range Interpretation Comments Albumin Lvl (test code = Albumin Lvl) 2.8 3.5-5.0 [facility]2018-02-21 10:15:00 Test Item Value Reference Range Interpretation Comments CO2 (test code = CO2) 27 24-32 [facility]2018-02-21 10:15:00 Test Item Value Reference Range Interpretation Comments Calcium Lvl (test code = Calcium Lvl) 7.7 8.5-10.5 [facility]ennialWokbaovSXZZAFMHDT7917-98-35 10:15:00 Test Item Value Reference Range Interpretation Comments RBC (test code = RBC) 3.80 4.70-6.10 [facility]ennialErejiyvLGRHFCUXYT6720-81-67 10:15:00 Test Item Value Reference Range Interpretation Comments WBC (test code = WBC) 8.8 3.7-10.4 [facility] CentennialUnospncXYNZSLQTBX2745-81-68 10:15:00 Test Item Value Reference Range Interpretation Comments MCHC (test code = MCHC) 33.8 32.0-36.0 [facility]ennialGcvzwhdOUIEYRHSUY1104-90-23 10:15:00 Test Item Value Reference Range Interpretation Comments MCH (test code = MCH) 25.8 pg 27.0-31.0 [facility] CentennialVvatgllKPRCZDBAJV6188-96-00 10:15:00 Test Item Value Reference Range Interpretation Comments MCV (test code = MCV) 76.4 80.0-94.0 [facility] CentennialHslqpalOJAFNRMBZZ6114-86-23 10:15:00 Test Item Value Reference Range Interpretation Comments Hgb (test code = Hgb) 9.8 14.0-18.0 [facility] CentennialJhdffpmJKIFRFVRUX3338-82-56 10:15:00 Test Item Value Reference Range Interpretation Comments Hct (test code = Hct) 29.1 42.0-54.0 [facility] CentennialPsltrbmRLWAIEHVNE2686-49-49 10:15:00 Test Item Value Reference Range Interpretation Comments MPV (test code = MPV) 6.8 7.4-10.4 [facility] CentennialUusgdxbFDZHJAPHIO6714-02-97 10:15:00 Test Item Value Reference Range Interpretation Comments Platelet (test code = Platelet) 293 133-450 [facility] CentennialXewdczaATUJLIXKUN3963-01-56 10:15:00 Test Item Value Reference Range Interpretation Comments RDW (test code = RDW) 16.0 11.5-14.5 [facility] CentennialZixmqmzANKSSCKIHQ6131-28-26 10:15:00 Test Item Value Reference Range Interpretation Comments Eosinophils (test code = 1.8 See_Comment [A utomated message] The Eosinophils) system which ge nerated this result tra nsmitted reference range : <=4.0. The reference r niko was not used to int erpret this result as normal/abnormal . [facility] CentennialWjnnynrWIKRBGKDVQ7995-75-03 10:15:00 Test Item Value Reference Range Interpretation Comments Monocytes (test code = Monocytes) 6.3 2.0-12.0 [facility] CentennialFvxrzwiHSKEOVIKEO0844-87-53 10:15:00 Test Item Value Reference Range Interpretation Comments Basophils (test code = 0.6 See_Comment [Aut omated message] The Basophils) system which ge nerated this result tra nsmitted reference range : <=1.0. The reference r niko was not used to int erpret this result as normal/abnormal . [facility] CentennialCuoycczPJNCWMSOMJ3138-46-00 10:15:00 Test Item Value Reference Range Interpretation Comments Lymphocytes # (test code = Lymphocytes 1.7 1.0-5.5 #) [facility] CentennialWzhzvfqOZSLGQHEDH1211-83-99 10:15:00 Test Item Value Reference Range Interpretation Comments Segs-Bands # (test code = Segs-Bands #) 6.4 1.5-8.1 [facility] CentennialIjpvwgyJTTQUYESCA0238-88-78 10:15:00 Test Item Value Reference Range Interpretation Comments Monocytes # (test code 0.6 See_Comment [Aut omated message] The = Monocytes #) system which generated this result tra nsmitted reference range : <=0.8. The reference r niko was not used to int erpret this result as normal/abnormal . [facility] CentennialTdobbzsPSBHBWXAKG1880-02-91 10:15:00 Test Item Value Reference Range Interpretation Comments Basophils # (test code 0.1 See_Comment [Aut omated message] The = Basophils #) system which generated this result tra nsmitted reference range : <=0.2. The reference r niko was not used to int erpret this result as normal/abnormal . [facility] CentennialBlipexoJPDXQHFZGV5173-94-13 10:15:00 Test Item Value Reference Range Interpretation Comments Eosinophils # (test code 0.2 See_Comment [A utomated message] The = Eosinophils #) system whic h generated this result tra nsmitted reference range : <=0.5. The reference r niko was not used to int erpret this result as normal/abnormal . [facility] CentennialXqmcmqwYYDVTWLBSM1083-84-03 10:15:00 Test Item Value Reference Range Interpretation Comments Microcyte (test code = 1+ *ABN*(05/16/17 Microcyte) 4:15 AM) [facility] CentennialVbnhtdiCPCRDSKCEP6961-60-27 10:15:00 Test Item Value Reference Range Interpretation Comments Segs (test code = Segs) 72.3 45.0-75.0 [facility] CentennialHafrjvkGRLJZTDBHH1396-45-41 10:15:00 Test Item Value Reference Range Interpretation Comments Lymphocytes (test code = Lymphocytes) 19.0 20.0-40.0 [facility]RRCJQCGHNC2659-[facility]-79 10:15:00 Test Item Value Reference Range Interpretation Comments Anti-dnase B (test no gt See_Comment [Automat ed message] The code = Anti-dnase B) system which generated this result transmit vasyl reference range : <=120. The reference range was not used to interpr et this result as minnie l/abnormal. [facility]ecjecuKKPCFBVHTB3287-[facility] 10:15:00 Test Item Value Reference Range Interpretation Comments ASO (test code = ASO) no gt See_Comment [Auto mated message] The system which ge nerated this result transmit vasyl reference range : <=408. The reference range was not used to interpr et this result as minnie l/abnormal. [facility] SystemRucvzwfDTJNAZXYOU0949-23-61 10:15:00 Test Item Value Reference Range Interpretation Comments Vanco Tr TND (test code = Vanco Tr 0430 1 TND) [facility]BsowtevDRTMFFNPOW6414-27-30 10:15:00 Test Item Value Reference Range Interpretation Comments Vanco Tr (test code = Vanco Tr) 12.5 [facility]2018-02-21 10:15:00 Test Item Value Reference Range Interpretation Comments Procalcitonin Lvl <0.05 ng/mL See_Comment [Automate d message] (test code = The system whic h Procalcitonin Lvl) generated this result transmit vasyl reference range : <=0.10. The reference range was not used to interpret this result as normal/abnormal . [facility]2018-02-21 10:15:00 Test Item Value Reference Range Interpretation Comments Globulin (test code = Globulin) 2.7 2.7-4.2 [facility]2018-02-21 10:15:00 Test Item Value Reference Range Interpretation Comments A/G Ratio (test code = A/G Ratio) 1.0 1 0.7-1.6 [facility]2018-02-21 10:15:00 Test Item Value Reference Range Interpretation Comments B/C Ratio (test code = B/C Ratio) 13 1 6-25 [facility]2018-02-21 10:15:00 Test Item Value Reference Range Interpretation Comments AGAP (test code = AGAP) 15.3 10.0-20.0 [facility]2018-02-21 10:15:00 Test Item Value Reference Range Interpretation Comments Bili Total (test code = Bili Total) 0.4 0.2-1.3 [facility]2018-02-21 10:15:00 Test Item Value Reference Range Interpretation Comments Alk Phos (test code = Alk Phos) 91 39-136 [facility]2018-02-21 10:15:00 Test Item Value Reference Range Interpretation Comments Total Protein (test code = Total 5.5 6.4-8.4 Protein) [facility]2018-02-21 10:15:00 Test Item Value Reference Range Interpretation Comments eGFR (test code = eGFR) 82 [facility]2018-02-21 10:15:00 Test Item Value Reference Range Interpretation Comments AST (test code = AST) 11 See_Comment [Auto mated message] The system which ge nerated this result transmit vasyl reference range : <=37. The reference range was not used to interpr et this result as minnie l/abnormal. [facility]2018-02-21 10:15:00 Test Item Value Reference Range Interpretation Comments ALT (test code = ALT) 12 See_Comment [Auto mated message] The system which ge nerated this result transmit vasyl reference range : <=65. The reference range was not used to interpr et this result as minnie l/abnormal. [facility]2018-02-21 10:15:00 Test Item Value Reference Range Interpretation Comments Creatinine Lvl (test code = Creatinine 0.92 0.50-1.40 Lvl) [facility]2018-02-21 10:15:00 Test Item Value Reference Range Interpretation Comments Glucose Lvl (test code = Glucose Lvl) 125 70-99 [facility]2018-02-21 10:15:00 Test Item Value Reference Range Interpretation Comments BUN (test code = BUN) 12 - [facility]2018-02-21 10:15:00 Test Item Value Reference Range Interpretation Comments Sodium Lvl (test code = Sodium Lvl) 141 135-145 [facility]2018-02-21 10:15:00 Test Item Value Reference Range Interpretation Comments Chloride Lvl (test code = Chloride Lvl) 103 95-109 [facility]2018-02-21 10:15:00 Test Item Value Reference Range Interpretation Comments Potassium Lvl (test code = Potassium 4.3 3.5-5.1 Lvl) [facility]2018-02-21 10:15:00 Test Item Value Reference Range Interpretation Comments Albumin Lvl (test code = Albumin Lvl) 2.8 3.5-5.0 [facility]2018-02-21 10:15:00 Test Item Value Reference Range Interpretation Comments CO2 (test code = CO2) 27 24-32 [facility]2018-02-21 10:15:00 Test Item Value Reference Range Interpretation Comments Calcium Lvl (test code = Calcium Lvl) 7.7 8.5-10.5 [facility]YefefctRBQPGVYKQC8171-84-31 10:15:00 Test Item Value Reference Range Interpretation Comments RBC (test code = RBC) 3.80 4.70-6.10 [facility]ennialEzkruqbLWECODWIBN4211-98-11 10:15:00 Test Item Value Reference Range Interpretation Comments WBC (test code = WBC) 8.8 3.7-10.4 [facility]ennialYpqqiniETFHPBFKCE9162-66-47 10:15:00 Test Item Value Reference Range Interpretation Comments MCHC (test code = MCHC) 33.8 32.0-36.0 [facility]ennialToxrhnbWKUOYVCCMK0797-97-41 10:15:00 Test Item Value Reference Range Interpretation Comments MCH (test code = MCH) 25.8 pg 27.0-31.0 [facility]ennialBovyhhlLTQUBEOVBM7073-57-35 10:15:00 Test Item Value Reference Range Interpretation Comments MCV (test code = MCV) 76.4 80.0-94.0 [facility]ennialZhruhhgTDTEULPUVI8490-26-48 10:15:00 Test Item Value Reference Range Interpretation Comments Hgb (test code = Hgb) 9.8 14.0-18.0 [facility] CentennialFovhbabDZLOHINXXX0759-13-55 10:15:00 Test Item Value Reference Range Interpretation Comments Hct (test code = Hct) 29.1 42.0-54.0 [facility]ennialVpyefgrSIPWADHHHK6049-84-83 10:15:00 Test Item Value Reference Range Interpretation Comments MPV (test code = MPV) 6.8 7.4-10.4 [facility]ennialKldgggcFHWZJRUTZW6568-98-67 10:15:00 Test Item Value Reference Range Interpretation Comments Platelet (test code = Platelet) 293 133-450 [facility]ennialNtzlvpzRDJPHAMZIU8779-18-58 10:15:00 Test Item Value Reference Range Interpretation Comments RDW (test code = RDW) 16.0 11.5-14.5 [facility] CentennialUffurydTPUBDNTAMM4698-69-71 10:15:00 Test Item Value Reference Range Interpretation Comments Eosinophils (test code = 1.8 See_Comment [A utomated message] The Eosinophils) system which ge nerated this result tra nsmitted reference range : <=4.0. The reference r niko was not used to int erpret this result as normal/abnormal . [facility]ennialWdrclqkVGKBQHQAUT1635-39-76 10:15:00 Test Item Value Reference Range Interpretation Comments Monocytes (test code = Monocytes) 6.3 2.0-12.0 [facility]ennialJbqxkowOYWMUJMNEZ2118-11-43 10:15:00 Test Item Value Reference Range Interpretation Comments Basophils (test code = 0.6 See_Comment [Aut omated message] The Basophils) system which ge nerated this result tra nsmitted reference range : <=1.0. The reference r niko was not used to int erpret this result as normal/abnormal . [facility]ennialXoatqyfWGNPPZHQWE5699-20-10 10:15:00 Test Item Value Reference Range Interpretation Comments Lymphocytes # (test code = Lymphocytes 1.7 1.0-5.5 #) [facility] CentennialLmnkdsjYWITXJDWXG4512-00-63 10:15:00 Test Item Value Reference Range Interpretation Comments Segs-Bands # (test code = Segs-Bands #) 6.4 1.5-8.1 [facility] CentennialZbqmhrxSJXDDESIPM8821-37-25 10:15:00 Test Item Value Reference Range Interpretation Comments Monocytes # (test code 0.6 See_Comment [Aut omated message] The = Monocytes #) system which generated this result tra nsmitted reference range : <=0.8. The reference r niko was not used to int erpret this result as normal/abnormal . [facility]ennialIvhjrlmDHCAJGTMGH9897-00-45 10:15:00 Test Item Value Reference Range Interpretation Comments Basophils # (test code 0.1 See_Comment [Aut omated message] The = Basophils #) system which generated this result tra nsmitted reference range : <=0.2. The reference r niko was not used to int erpret this result as normal/abnormal . [facility]ennialPiojzvqQGLQJZERGR6347-30-77 10:15:00 Test Item Value Reference Range Interpretation Comments Eosinophils # (test code 0.2 See_Comment [A utomated message] The = Eosinophils #) system whic h generated this result tra nsmitted reference range : <=0.5. The reference r niko was not used to int erpret this result as normal/abnormal . [facility]ennialDywzsgjFVQAHHXBMC9698-27-55 10:15:00 Test Item Value Reference Range Interpretation Comments Microcyte (test code = 1+ *ABN*(05/16/17 Microcyte) 4:15 AM) [facility]ennialDgpzvcyGGYDGILVWP0913-09-21 10:15:00 Test Item Value Reference Range Interpretation Comments Segs (test code = Segs) 72.3 45.0-75.0 [facility]ennialUizszliCGHQZKPSLL5663-86-98 10:15:00 Test Item Value Reference Range Interpretation Comments Lymphocytes (test code = Lymphocytes) 19.0 20.0-40.0 [facility]AbiqqgnNIOYFIJFXW4027-18-44 10:15:00 Test Item Value Reference Range Interpretation Comments Anti-dnase B (test no gt See_Comment [Automat ed message] The code = Anti-dnase B) system which generated this result transmit vasyl reference range : <=120. The reference range was not used to interpr et this result as minnie l/abnormal. [facility] HospitalRnutgneICNREQSPKO2356-87-38 10:15:00 Test Item Value Reference Range Interpretation Comments ASO (test code = ASO) no gt See_Comment [Auto mated message] The system which ge nerated this result transmit vasyl reference range : <=408. The reference range was not used to interpr et this result as minnie l/abnormal. [place] [id number] 10:15:00 Test Item Value Reference Range Interpretation Comments Vanco Tr TND (test code = Vanco Tr 0430 1 TND) [place] [id number] 10:15:00 Test Item Value Reference Range Interpretation Comments Vanco Tr (test code = Vanco Tr) 12.5 [facility]ennialYlxqxzbGWLVQZDYFK0130-64-24 04:12:00 Test Item Value Reference Range Interpretation Comments Lymphocytes # (test code = Lymphocytes 2.1 1.0-5.5 #) [facility] CentennialRqmrwdaBINQINRXAW7229-18-56 04:12:00 Test Item Value Reference Range Interpretation Comments Segs-Bands # (test code = Segs-Bands #) 7.0 1.5-8.1 [facility] CentennialOichxmiEIJZZBAJWA0504-45-95 04:12:00 Test Item Value Reference Range Interpretation Comments Basophils # (test code 0.1 See_Comment [Aut omated message] The = Basophils #) system which generated this result tra nsmitted reference range : <=0.2. The reference r niko was not used to int erpret this result as normal/abnormal . [facility] CentennialRtokfykZXEDWVVODR2488-49-69 04:12:00 Test Item Value Reference Range Interpretation Comments Eosinophils # (test code 0.2 See_Comment [A utomated message] The = Eosinophils #) system whic h generated this result tra nsmitted reference range : <=0.5. The reference r niko was not used to int erpret this result as normal/abnormal . [facility]ennialEknjysfOQBDPAZKIN8705-11-70 04:12:00 Test Item Value Reference Range Interpretation Comments Monocytes # (test code 0.7 See_Comment [Aut omated message] The = Monocytes #) system which generated this result tra nsmitted reference range : <=0.8. The reference r niko was not used to int erpret this result as normal/abnormal . [facility]ennialKstqzcxFXVEKSRLNY8263-33-94 04:12:00 Test Item Value Reference Range Interpretation Comments Microcyte (test code = 1+ *ABN*(05/15/17 Microcyte) 10:12 PM) [facility]ennialOngxsdiFWJVZCIRCS5248-47-57 04:12:00 Test Item Value Reference Range Interpretation Comments Segs (test code = Segs) 70.1 45.0-75.0 [facility] CentennialSafyqgbGRQYKBVZIM3171-36-04 04:12:00 Test Item Value Reference Range Interpretation Comments Basophils (test code = 0.6 See_Comment [Aut omated message] The Basophils) system which ge nerated this result tra nsmitted reference range : <=1.0. The reference r niko was not used to int erpret this result as normal/abnormal . [facility]ennialEbuadhpUPUQYYIELG3444-44-94 04:12:00 Test Item Value Reference Range Interpretation Comments Eosinophils (test code = 1.5 See_Comment [A utomated message] The Eosinophils) system which ge nerated this result tra nsmitted reference range : <=4.0. The reference r niko was not used to int erpret this result as normal/abnormal . [facility]ennialOoiwjjtEZIUTMQXWG7345-61-00 04:12:00 Test Item Value Reference Range Interpretation Comments Monocytes (test code = Monocytes) 6.7 2.0-12.0 [facility] CentennialSroogbsNLXHGAOPDL3171-45-81 04:12:00 Test Item Value Reference Range Interpretation Comments Lymphocytes (test code = Lymphocytes) 21.1 20.0-40.0 [facility] CentennialVcsailwAMLWBFSWNU5762-64-68 04:12:00 Test Item Value Reference Range Interpretation Comments MPV (test code = MPV) 7.0 7.4-10.4 [facility] CentennialZlhdhjgQGWRAQIFOL8129-55-94 04:12:00 Test Item Value Reference Range Interpretation Comments MCH (test code = MCH) 25.4 pg 27.0-31.0 [facility] CentennialDqjfpadRDUTIKKQJD5726-25-95 04:12:00 Test Item Value Reference Range Interpretation Comments MCV (test code = MCV) 77.3 80.0-94.0 [facility]ennialCwyqqugROEGEJWBGK3830-56-94 04:12:00 Test Item Value Reference Range Interpretation Comments Platelet (test code = Platelet) 320 133-450 [facility]ennialXzzrjgtTVHGZDERZX3644-10-81 04:12:00 Test Item Value Reference Range Interpretation Comments RDW (test code = RDW) 15.8 11.5-14.5 [facility]ennialYrvwwykQRARTCUFCH9860-82-58 04:12:00 Test Item Value Reference Range Interpretation Comments MCHC (test code = MCHC) 32.8 32.0-36.0 [facility] CentennialLgjvjelBIXOKKZVMN0865-55-09 04:12:00 Test Item Value Reference Range Interpretation Comments RBC (test code = RBC) 3.91 4.70-6.10 [facility] CentennialEpymrzlTIAYKTOKFT8040-06-71 04:12:00 Test Item Value Reference Range Interpretation Comments Hgb (test code = Hgb) 9.9 14.0-18.0 [facility]ennialCubvjriBVJAMUGWFT3510-16-69 04:12:00 Test Item Value Reference Range Interpretation Comments WBC (test code = WBC) 10.1 3.7-10.4 [facility] CentennialWbszurqWNOMNZHWQL1361-26-56 04:12:00 Test Item Value Reference Range Interpretation Comments Hct (test code = Hct) 30.2 42.0-54.0 [facility] CentennialMhmfrctQSKSQKNYXZ2209-78-56 04:12:00 Test Item Value Reference Range Interpretation Comments Lymphocytes # (test code = Lymphocytes 2.1 1.0-5.5 #) [facility] CentennialGxmadwpGAQQFAZMOY6284-75-77 04:12:00 Test Item Value Reference Range Interpretation Comments Segs-Bands # (test code = Segs-Bands #) 7.0 1.5-8.1 [facility] CentennialGhwaiqjTRVNLFJOAY0530-51-49 04:12:00 Test Item Value Reference Range Interpretation Comments Basophils # (test code 0.1 See_Comment [Aut omated message] The = Basophils #) system which generated this result tra nsmitted reference range : <=0.2. The reference r niko was not used to int erpret this result as normal/abnormal . [facility] CentennialDojshutJCEUFZEVCS1553-53-79 04:12:00 Test Item Value Reference Range Interpretation Comments Eosinophils # (test code 0.2 See_Comment [A utomated message] The = Eosinophils #) system whic h generated this result tra nsmitted reference range : <=0.5. The reference r niko was not used to int erpret this result as normal/abnormal . [facility] CentennialIuluvniFIYPYGSEDH7056-20-78 04:12:00 Test Item Value Reference Range Interpretation Comments Monocytes # (test code 0.7 See_Comment [Aut omated message] The = Monocytes #) system which generated this result tra nsmitted reference range : <=0.8. The reference r niko was not used to int erpret this result as normal/abnormal . [facility] CentennialAyorepcYWPOYHLRTR8396-20-65 04:12:00 Test Item Value Reference Range Interpretation Comments Microcyte (test code = 1+ *ABN*(05/15/17 Microcyte) 10:12 PM) [facility] CentennialMebaikhAKSIQRFNHC9131-72-62 04:12:00 Test Item Value Reference Range Interpretation Comments Segs (test code = Segs) 70.1 45.0-75.0 [facility]ennialPffwutxGFWMXRQIBP3363-06-52 04:12:00 Test Item Value Reference Range Interpretation Comments Basophils (test code = 0.6 See_Comment [Aut omated message] The Basophils) system which ge nerated this result tra nsmitted reference range : <=1.0. The reference r niko was not used to int erpret this result as normal/abnormal . [facility] CentennialTixixggYVJGJXKHNP3452-04-90 04:12:00 Test Item Value Reference Range Interpretation Comments Eosinophils (test code = 1.5 See_Comment [A utomated message] The Eosinophils) system which ge nerated this result tra nsmitted reference range : <=4.0. The reference r niko was not used to int erpret this result as normal/abnormal . [facility]ennialOyvocndCSZGASCYPS1420-34-64 04:12:00 Test Item Value Reference Range Interpretation Comments Monocytes (test code = Monocytes) 6.7 2.0-12.0 [facility] CentennialQcurhzrIAYTQDTITU0832-01-28 04:12:00 Test Item Value Reference Range Interpretation Comments Lymphocytes (test code = Lymphocytes) 21.1 20.0-40.0 [facility] CentennialNsxxlxxBZSEBTGACO8527-86-78 04:12:00 Test Item Value Reference Range Interpretation Comments MPV (test code = MPV) 7.0 7.4-10.4 [facility] CentennialGtdaqcoCUFSITAXWW7162-13-63 04:12:00 Test Item Value Reference Range Interpretation Comments MCH (test code = MCH) 25.4 pg 27.0-31.0 [facility]ennialVomdmfoPCFYOWKZJI9484-50-33 04:12:00 Test Item Value Reference Range Interpretation Comments MCV (test code = MCV) 77.3 80.0-94.0 [facility]ennialPjhqmhcSEZMBGQAMM9017-63-04 04:12:00 Test Item Value Reference Range Interpretation Comments Platelet (test code = Platelet) 320 133-450 [facility] CentennialDkrwtjiQGCAJBGQJQ1625-16-58 04:12:00 Test Item Value Reference Range Interpretation Comments RDW (test code = RDW) 15.8 11.5-14.5 [facility] CentennialJksgjryBIJPQEYPEA8805-25-18 04:12:00 Test Item Value Reference Range Interpretation Comments MCHC (test code = MCHC) 32.8 32.0-36.0 [facility]ennialJcdizqcSLLMYSKXEU8054-10-26 04:12:00 Test Item Value Reference Range Interpretation Comments RBC (test code = RBC) 3.91 4.70-6.10 [facility]ennialPebnqglYFJBQRLFQY9735-55-52 04:12:00 Test Item Value Reference Range Interpretation Comments Hgb (test code = Hgb) 9.9 14.0-18.0 [facility] CentennialHubonafOLTWECAMAJ2484-28-72 04:12:00 Test Item Value Reference Range Interpretation Comments WBC (test code = WBC) 10.1 3.7-10.4 [facility] CentennialMrezlasBWEOKXNMVY7196-73-07 04:12:00 Test Item Value Reference Range Interpretation Comments Hct (test code = Hct) 30.2 42.0-54.0 [facility]2018-02-20 12:47:00 Test Item Value Reference Range Interpretation Comments eGFR (test code = eGFR) 66 [facility]2018-02-20 12:47:00 Test Item Value Reference Range Interpretation Comments POC BUN (test code = POC BUN) 12 7-22 [facility]2018-02-20 12:47:00 Test Item Value Reference Range Interpretation Comments POC Chloride (test code = POC Chloride) 101 95-109 [facility]2018-02-20 12:47:00 Test Item Value Reference Range Interpretation Comments POC Creatinine (test code = POC 1.1 0.5-1.4 Creatinine) [facility]2018-02-20 12:47:00 Test Item Value Reference Range Interpretation Comments POC Hematocrit (test code = POC 50.0 42.0-54.0 Hematocrit) [facility]2018-02-20 12:47:00 Test Item Value Reference Range Interpretation Comments POC Carbon Dioxide (test code = POC 26 24-32 Carbon Dioxide) [facility]2018-02-20 12:47:00 Test Item Value Reference Range Interpretation Comments POC Glucose (test code = POC Glucose) 156 70-99 [facility]2018-02-20 12:47:00 Test Item Value Reference Range Interpretation Comments POC Hemoglobin (test code = POC 17.0 14.0-18.0 Hemoglobin) [facility]2018-02-20 12:47:00 Test Item Value Reference Range Interpretation Comments POC Ion Ca (test code = POC Ion Ca) 1.20 1.05-1.25 [facility]2018-02-20 12:47:00 Test Item Value Reference Range Interpretation Comments POC AGAP (test code = POC AGAP) 17.0 10.0-20.0 [facility]2018-02-20 12:47:00 Test Item Value Reference Range Interpretation Comments POC Potassium (test code = POC 3.9 3.5-5.1 Potassium) [facility]2018-02-20 12:47:00 Test Item Value Reference Range Interpretation Comments POC Sodium (test code = POC Sodium) 140 135-145 [facility]2018-02-20 12:47:00 Test Item Value Reference Range Interpretation Comments eGFR (test code = eGFR) 66 [facility]2018-02-20 12:47:00 Test Item Value Reference Range Interpretation Comments POC BUN (test code = POC BUN) 12 7-22 [facility]2018-02-20 12:47:00 Test Item Value Reference Range Interpretation Comments POC Chloride (test code = POC Chloride) 101 95-109 [facility]2018-02-20 12:47:00 Test Item Value Reference Range Interpretation Comments POC Creatinine (test code = POC 1.1 0.5-1.4 Creatinine) [facility]2018-02-20 12:47:00 Test Item Value Reference Range Interpretation Comments POC Hematocrit (test code = POC 50.0 42.0-54.0 Hematocrit) [facility]2018-02-20 12:47:00 Test Item Value Reference Range Interpretation Comments POC Carbon Dioxide (test code = POC 26 24-32 Carbon Dioxide) [facility]2018-02-20 12:47:00 Test Item Value Reference Range Interpretation Comments POC Glucose (test code = POC Glucose) 156 70-99 [facility]2018-02-20 12:47:00 Test Item Value Reference Range Interpretation Comments POC Hemoglobin (test code = POC 17.0 14.0-18.0 Hemoglobin) [facility]2018-02-20 12:47:00 Test Item Value Reference Range Interpretation Comments POC Ion Ca (test code = POC Ion Ca) 1.20 1.05-1.25 [facility]2018-02-20 12:47:00 Test Item Value Reference Range Interpretation Comments POC AGAP (test code = POC AGAP) 17.0 10.0-20.0 [facility]2018-02-20 12:47:00 Test Item Value Reference Range Interpretation Comments POC Potassium (test code = POC 3.9 3.5-5.1 Potassium) [facility]2018-02-20 12:47:00 Test Item Value Reference Range Interpretation Comments POC Sodium (test code = POC Sodium) 140 135-145 [facility]ennialQpfhprwCBWOKVDNGY8526-94-89 12:41:00 Test Item Value Reference Range Interpretation Comments Sed Rate (test code = 36 See_Comment [Auto mated message] The Sed Rate) system which ge nerated this result transmit vasyl reference range : <=15. The reference range was not used to interpr et this result as minnie l/abnormal. [facility]NhcxxwdSDCRWKCXKN5076-79-23 12:41:00 Test Item Value Reference Range Interpretation Comments C-REACTIVE PROTEIN (test code = 62.7 C-REACTIVE PROTEIN) [facility]ennialVeiybxlEQKMEXCZUJ9553-04-57 12:41:00 Test Item Value Reference Range Interpretation Comments Sed Rate (test code = 36 See_Comment [Auto mated message] The Sed Rate) system which ge nerated this result transmit vasly reference range : <=15. The reference range was not used to interpr et this result as minnie l/abnormal. [facility]XwsiufwWHVDGUUWPN8898-42-57 12:41:00 Test Item Value Reference Range Interpretation Comments C-REACTIVE PROTEIN (test code = 62.7 C-REACTIVE PROTEIN) [facility][U] XRAY SHOULDER MIN 2 VWS RIGHT [id number] 08:47:00Images acquired, not reported on this accession number.[facility] 2017-05-06 18:09:00 Test Item Value Reference Range Interpretation Comments eGFR (test code = eGFR) 85 [facility]2018-02-11 18:09:00 Test Item Value Reference Range Interpretation Comments B/C Ratio (test code = B/C Ratio) 10 1 6-25 [facility]2018-02-11 18:09:00 Test Item Value Reference Range Interpretation Comments AGAP (test code = AGAP) 11.7 10.0-20.0 [facility]2018-02-11 18:09:00 Test Item Value Reference Range Interpretation Comments AST (test code = AST) 15 See_Comment [Auto mated message] The system which ge nerated this result transmit vasyl reference range : <=37. The reference range was not used to interpr et this result as minnie l/abnormal. [facility]2018-02-11 18:09:00 Test Item Value Reference Range Interpretation Comments Albumin Lvl (test code = Albumin Lvl) 2.7 3.5-5.0 [facility]2018-02-11 18:09:00 Test Item Value Reference Range Interpretation Comments ALT (test code = ALT) 22 See_Comment [Auto mated message] The system which ge nerated this result transmit vasyl reference range : <=65. The reference range was not used to interpr et this result as minnie l/abnormal. [facility]2018-02-11 18:09:00 Test Item Value Reference Range Interpretation Comments Creatinine Lvl (test code = Creatinine 0.86 0.50-1.40 Lvl) [facility]2018-02-11 18:09:00 Test Item Value Reference Range Interpretation Comments BUN (test code = BUN) 9 7-22 [facility]2018-02-11 18:09:00 Test Item Value Reference Range Interpretation Comments Glucose Lvl (test code = Glucose Lvl) 184 70-99 [facility]2018-02-11 18:09:00 Test Item Value Reference Range Interpretation Comments CO2 (test code = CO2) 28 24-32 [facility]2018-02-11 18:09:00 Test Item Value Reference Range Interpretation Comments Sodium Lvl (test code = Sodium Lvl) 142 135-145 [facility]2018-02-11 18:09:00 Test Item Value Reference Range Interpretation Comments Potassium Lvl (test code = Potassium 3.7 3.5-5.1 Lvl) [facility]2018-02-11 18:09:00 Test Item Value Reference Range Interpretation Comments Calcium Lvl (test code = Calcium Lvl) 7.9 8.5-10.5 [facility]2018-02-11 18:09:00 Test Item Value Reference Range Interpretation Comments Chloride Lvl (test code = Chloride Lvl) 106 95-109 [facility]2018-02-11 18:09:00 Test Item Value Reference Range Interpretation Comments A/G Ratio (test code = A/G Ratio) 0.8 1 0.7-1.6 [facility]2018-02-11 18:09:00 Test Item Value Reference Range Interpretation Comments Globulin (test code = Globulin) 3.3 2.7-4.2 [facility]2018-02-11 18:09:00 Test Item Value Reference Range Interpretation Comments Total Protein (test code = Total 6.0 6.4-8.4 Protein) [facility]2018-02-11 18:09:00 Test Item Value Reference Range Interpretation Comments Alk Phos (test code = Alk Phos) 103 39-136 [facility]2018-02-11 18:09:00 Test Item Value Reference Range Interpretation Comments Bili Total (test code = Bili Total) 0.2 0.2-1.3 [facility]ennialIdliwgtBHGIGUHHKO[facility] 18:09:00 Test Item Value Reference Range Interpretation Comments Monocytes (test code = Monocytes) 6.7 2.0-12.0 [place] 182118-02-11 18:09:00 Test Item Value Reference Range Interpretation Comments Eosinophils (test code = 1.6 See_Comment [A utomated message] The Eosinophils) system which ge nerated this result tra nsmitted reference range : <=4.0. The reference r niko was not used to int erpret this result as normal/abnormal . [facility]ennialQibyatyYEQMRXWBRD6497-87-48 18:09:00 Test Item Value Reference Range Interpretation Comments Lymphocytes (test code = Lymphocytes) 17.4 20.0-40.0 [facility]ennialBlmfrziVVZGAXQMOX3305-39-00 18:09:00 Test Item Value Reference Range Interpretation Comments Segs-Bands # (test code = Segs-Bands #) 6.9 1.5-8.1 [facility]ennialYqezwsvUQYICJSUUF0582-10-47 18:09:00 Test Item Value Reference Range Interpretation Comments Basophils (test code = 1.2 See_Comment [Aut omated message] The Basophils) system which ge nerated this result tra nsmitted reference range : <=1.0. The reference r niko was not used to int erpret this result as normal/abnormal . [facility] CentennialZcdengxGZQLXKUDFN0401-01-92 18:09:00 Test Item Value Reference Range Interpretation Comments Monocytes # (test code 0.6 See_Comment [Aut omated message] The = Monocytes #) system which generated this result tra nsmitted reference range : <=0.8. The reference r niko was not used to int erpret this result as normal/abnormal . [facility]ennialUcvdbzsOHWEAURUBO8540-95-42 18:09:00 Test Item Value Reference Range Interpretation Comments Lymphocytes # (test code = Lymphocytes 1.6 1.0-5.5 #) [facility]ennialUsivaieRDSQJKZERH9887-31-18 18:09:00 Test Item Value Reference Range Interpretation Comments Eosinophils # (test code 0.2 See_Comment [A utomated message] The = Eosinophils #) system wh h generated this result tra nsmitted reference range : <=0.5. The reference r niko was not used to int erpret this result as normal/abnormal . [facility]ennialKfnuqimGLNGTBEBBM4982-42-86 18:09:00 Test Item Value Reference Range Interpretation Comments Basophils # (test code 0.1 See_Comment [Aut omated message] The = Basophils #) system which generated this result tra nsmitted reference range : <=0.2. The reference r niko was not used to int erpret this result as normal/abnormal . [facility]ennialOmuknklTGNBMQMXKT9423-34-92 18:09:00 Test Item Value Reference Range Interpretation Comments Microcyte (test code = 1+ *ABN*(05/06/17 Microcyte) 12:09 PM) [facility]ennialVjjhrmjHPMHEPYRQN5591-24-13 18:09:00 Test Item Value Reference Range Interpretation Comments Segs (test code = Segs) 73.1 45.0-75.0 [facility] CentennialFstzbxrBUAJWVHVIT4617-89-76 18:09:00 Test Item Value Reference Range Interpretation Comments WBC (test code = WBC) 9.5 3.7-10.4 [facility]ennialYhzjacvQKXTGLXQHU2419-95-79 18:09:00 Test Item Value Reference Range Interpretation Comments Hct (test code = Hct) 33.2 42.0-54.0 [facility]ennialMpzoklzJFZWKYVRGE7399-10-31 18:09:00 Test Item Value Reference Range Interpretation Comments RBC (test code = RBC) 4.26 4.70-6.10 [facility]ennialBlgadduYVQDZGOEWI8635-58-38 18:09:00 Test Item Value Reference Range Interpretation Comments Hgb (test code = Hgb) 10.9 14.0-18.0 [facility]ennialIwbauzuMLZOBDIYGX7463-41-01 18:09:00 Test Item Value Reference Range Interpretation Comments MCH (test code = MCH) 25.6 pg 27.0-31.0 [facility]ennialUevsjlqFXHMDZXFZX5946-74-06 18:09:00 Test Item Value Reference Range Interpretation Comments MCV (test code = MCV) 77.7 80.0-94.0 [facility]ennialPtbcsyrXDTBEFJSDA8459-42-63 18:09:00 Test Item Value Reference Range Interpretation Comments Platelet (test code = Platelet) 272 133-450 [facility]ennialKedtybjRMYVCVBSBL7774-44-37 18:09:00 Test Item Value Reference Range Interpretation Comments MPV (test code = MPV) 6.7 7.4-10.4 [facility] CentennialVcupthfZEQFVBNSHI3816-34-43 18:09:00 Test Item Value Reference Range Interpretation Comments MCHC (test code = MCHC) 33.0 32.0-36.0 [facility]ennialIwwbsurMUGUIFNMKI8861-57-97 18:09:00 Test Item Value Reference Range Interpretation Comments RDW (test code = RDW) 15.8 11.5-14.5 [facility]NtpldhlCYSSJCOPXP2506-33-11 18:09:00 Test Item Value Reference Range Interpretation Comments C-REACTIVE PROTEIN (test code = 40.6 C-REACTIVE PROTEIN) [facility]2018-02-11 18:09:00 Test Item Value Reference Range Interpretation Comments eGFR (test code = eGFR) 85 [facility]2018-02-11 18:09:00 Test Item Value Reference Range Interpretation Comments B/C Ratio (test code = B/C Ratio) 10 1 6-25 [facility]2018-02-11 18:09:00 Test Item Value Reference Range Interpretation Comments AGAP (test code = AGAP) 11.7 10.0-20.0 [facility]2018-02-11 18:09:00 Test Item Value Reference Range Interpretation Comments AST (test code = AST) 15 See_Comment [Auto mated message] The system which ge nerated this result transmit vasyl reference range : <=37. The reference range was not used to interpr et this result as minnie l/abnormal. [facility]2018-02-11 18:09:00 Test Item Value Reference Range Interpretation Comments Albumin Lvl (test code = Albumin Lvl) 2.7 3.5-5.0 [facility]2018-02-11 18:09:00 Test Item Value Reference Range Interpretation Comments ALT (test code = ALT) 22 See_Comment [Auto mated message] The system which ge nerated this result transmit vasyl reference range : <=65. The reference range was not used to interpr et this result as minnie l/abnormal. [facility]2018-02-11 18:09:00 Test Item Value Reference Range Interpretation Comments Creatinine Lvl (test code = Creatinine 0.86 0.50-1.40 Lvl) [facility]2018-02-11 18:09:00 Test Item Value Reference Range Interpretation Comments BUN (test code = BUN) 9 7-22 [facility]2018-02-11 18:09:00 Test Item Value Reference Range Interpretation Comments Glucose Lvl (test code = Glucose Lvl) 184 70-99 [facility]2018-02-11 18:09:00 Test Item Value Reference Range Interpretation Comments CO2 (test code = CO2) 28 24-32 [facility]2018-02-11 18:09:00 Test Item Value Reference Range Interpretation Comments Sodium Lvl (test code = Sodium Lvl) 142 135-145 [facility]2018-02-11 18:09:00 Test Item Value Reference Range Interpretation Comments Potassium Lvl (test code = Potassium 3.7 3.5-5.1 Lvl) [facility]2018-02-11 18:09:00 Test Item Value Reference Range Interpretation Comments Calcium Lvl (test code = Calcium Lvl) 7.9 8.5-10.5 [facility]2018-02-11 18:09:00 Test Item Value Reference Range Interpretation Comments Chloride Lvl (test code = Chloride Lvl) 106 95-109 [facility]2018-02-11 18:09:00 Test Item Value Reference Range Interpretation Comments A/G Ratio (test code = A/G Ratio) 0.8 1 0.7-1.6 [facility]2018-02-11 18:09:00 Test Item Value Reference Range Interpretation Comments Globulin (test code = Globulin) 3.3 2.7-4.2 [facility]2018-02-11 18:09:00 Test Item Value Reference Range Interpretation Comments Total Protein (test code = Total 6.0 6.4-8.4 Protein) [facility]2018-02-11 18:09:00 Test Item Value Reference Range Interpretation Comments Alk Phos (test code = Alk Phos) 103 39-136 [facility]2018-02-11 18:09:00 Test Item Value Reference Range Interpretation Comments Bili Total (test code = Bili Total) 0.2 0.2-1.3 [place] 182118-02-11 18:09:00 Test Item Value Reference Range Interpretation Comments Monocytes (test code = Monocytes) 6.7 2.0-12.0 [facility]ennialDloqgqmLYGSYBMAZQ6906-72-31 18:09:00 Test Item Value Reference Range Interpretation Comments Eosinophils (test code = 1.6 See_Comment [A utomated message] The Eosinophils) system which ge nerated this result tra nsmitted reference range : <=4.0. The reference r niko was not used to int erpret this result as normal/abnormal . [facility]ennialEjgvueiYMYROCZKWA2613-06-90 18:09:00 Test Item Value Reference Range Interpretation Comments Lymphocytes (test code = Lymphocytes) 17.4 20.0-40.0 [facility] CentennialZrcuqlhFRAXBHXTVT4383-85-47 18:09:00 Test Item Value Reference Range Interpretation Comments Segs-Bands # (test code = Segs-Bands #) 6.9 1.5-8.1 [facility]ennialAkawjqaWGGZIRTQJC8581-57-15 18:09:00 Test Item Value Reference Range Interpretation Comments Basophils (test code = 1.2 See_Comment [Aut omated message] The Basophils) system which ge nerated this result tra nsmitted reference range : <=1.0. The reference r niko was not used to int erpret this result as normal/abnormal . [facility]ennialZmzswybLBPUGYNMJX7211-40-65 18:09:00 Test Item Value Reference Range Interpretation Comments Monocytes # (test code 0.6 See_Comment [Aut omated message] The = Monocytes #) system which generated this result tra nsmitted reference range : <=0.8. The reference r niko was not used to int erpret this result as normal/abnormal . [facility]ennialOpnehjrVULZFKZIBM0356-24-69 18:09:00 Test Item Value Reference Range Interpretation Comments Lymphocytes # (test code = Lymphocytes 1.6 1.0-5.5 #) [facility]ennialXcdqxbfTIBTAKBCAA7880-55-69 18:09:00 Test Item Value Reference Range Interpretation Comments Eosinophils # (test code 0.2 See_Comment [A utomated message] The = Eosinophils #) system whic h generated this result tra nsmitted reference range : <=0.5. The reference r niko was not used to int erpret this result as normal/abnormal . [facility]ennialCwbjcnxEQGJUHBVBX6424-50-13 18:09:00 Test Item Value Reference Range Interpretation Comments Basophils # (test code 0.1 See_Comment [Aut omated message] The = Basophils #) system which generated this result tra nsmitted reference range : <=0.2. The reference r niko was not used to int erpret this result as normal/abnormal . [facility]ennialBdyqxjvZMNAXVEDJO0131-20-56 18:09:00 Test Item Value Reference Range Interpretation Comments Microcyte (test code = 1+ *ABN*(05/06/17 Microcyte) 12:09 PM) [facility]ennialKspeyluDRGNLAHRSH5546-86-13 18:09:00 Test Item Value Reference Range Interpretation Comments Segs (test code = Segs) 73.1 45.0-75.0 [facility] CentennialExgaovnKOVCCBESQM4223-16-02 18:09:00 Test Item Value Reference Range Interpretation Comments WBC (test code = WBC) 9.5 3.7-10.4 [facility]ennialCgfkptuZLGLIPFVOG4755-53-28 18:09:00 Test Item Value Reference Range Interpretation Comments Hct (test code = Hct) 33.2 42.0-54.0 [facility]ennialVetwghlEWQOFFDXLG2597-89-19 18:09:00 Test Item Value Reference Range Interpretation Comments RBC (test code = RBC) 4.26 4.70-6.10 [facility]ennialUujryqaITQZHPYLGB4092-83-80 18:09:00 Test Item Value Reference Range Interpretation Comments Hgb (test code = Hgb) 10.9 14.0-18.0 [facility] CentennialLrimxyeFMKZYWSKKG3998-25-43 18:09:00 Test Item Value Reference Range Interpretation Comments MCH (test code = MCH) 25.6 pg 27.0-31.0 [facility]ennialAhdjjspWSAUHENQLK4848-76-76 18:09:00 Test Item Value Reference Range Interpretation Comments MCV (test code = MCV) 77.7 80.0-94.0 [facility]ennialSrcgidaQBZDBKASRM0184-18-68 18:09:00 Test Item Value Reference Range Interpretation Comments Platelet (test code = Platelet) 272 133-450 [facility] CentennialAppttkgNGGQLOIOHZ2076-55-72 18:09:00 Test Item Value Reference Range Interpretation Comments MPV (test code = MPV) 6.7 7.4-10.4 [facility]ennialXjgpepcAZUAJNPVDU4268-98-23 18:09:00 Test Item Value Reference Range Interpretation Comments MCHC (test code = MCHC) 33.0 32.0-36.0 [facility]ennialChxgmeoHNPGEUCYAX0625-92-92 18:09:00 Test Item Value Reference Range Interpretation Comments RDW (test code = RDW) 15.8 11.5-14.5 [facility] SystemConywisZWGFFJBQRB1885-15-24 18:09:00 Test Item Value Reference Range Interpretation Comments C-REACTIVE PROTEIN (test code = 40.6 C-REACTIVE PROTEIN) [facility]2018-02-09 11:26:00 Test Item Value Reference Range Interpretation Comments Glucose Lvl (test code = Glucose Lvl) 146 70-99 [facility]2018-02-09 11:26:00 Test Item Value Reference Range Interpretation Comments Sodium Lvl (test code = Sodium Lvl) 142 135-145 [facility]2018-02-09 11:26:00 Test Item Value Reference Range Interpretation Comments Chloride Lvl (test code = Chloride Lvl) 104 95-109 [facility]2018-02-09 11:26:00 Test Item Value Reference Range Interpretation Comments Potassium Lvl (test code = Potassium 4.1 3.5-5.1 Lvl) [facility]2018-02-09 11:26:00 Test Item Value Reference Range Interpretation Comments BUN (test code = BUN) 12 7-22 [facility]2018-02-09 11:26:00 Test Item Value Reference Range Interpretation Comments CO2 (test code = CO2) 29 24-32 [facility]2018-02-09 11:26:00 Test Item Value Reference Range Interpretation Comments Calcium Lvl (test code = Calcium Lvl) 8.5 8.5-10.5 [facility]2018-02-09 11:26:00 Test Item Value Reference Range Interpretation Comments eGFR (test code = eGFR) 87 [facility]2018-02-09 11:26:00 Test Item Value Reference Range Interpretation Comments Creatinine Lvl (test code = Creatinine 0.81 0.50-1.40 Lvl) [facility]2018-02-09 11:26:00 Test Item Value Reference Range Interpretation Comments AGAP (test code = AGAP) 13.1 10.0-20.0 [facility] CentennialHwudxzpKBLIVYEEWS9925-06-98 11:26:00 Test Item Value Reference Range Interpretation Comments Basophils (test code = 0.7 See_Comment [Aut omated message] The Basophils) system which ge nerated this result tra nsmitted reference range : <=1.0. The reference r niko was not used to int erpret this result as normal/abnormal . [facility] CentennialWbafzucHBBQNVIXTX8477-17-51 11:26:00 Test Item Value Reference Range Interpretation Comments Segs-Bands # (test code = Segs-Bands #) 5.7 1.5-8.1 [facility] CentennialTikxktfLFZYZMQZTK2868-11-29 11:26:00 Test Item Value Reference Range Interpretation Comments Eosinophils # (test code 0.1 See_Comment [A utomated message] The = Eosinophils #) system whic h generated this result tra nsmitted reference range : <=0.5. The reference r niko was not used to int erpret this result as normal/abnormal . [facility] CentennialWrahpfkYKXRMKFFTB1486-18-68 11:26:00 Test Item Value Reference Range Interpretation Comments Lymphocytes # (test code = Lymphocytes 1.7 1.0-5.5 #) [facility] CentennialUafialsUEIETUDCLM1113-16-33 11:26:00 Test Item Value Reference Range Interpretation Comments Basophils # (test code 0.1 See_Comment [Aut omated message] The = Basophils #) system which generated this result tra nsmitted reference range : <=0.2. The reference r niko was not used to int erpret this result as normal/abnormal . [facility] CentennialMsgsxruZSQJBFOLLV7194-91-87 11:26:00 Test Item Value Reference Range Interpretation Comments Microcyte (test code = 1+ *ABN*(05/04/17 5:26 Microcyte) AM) [facility]ennialXxlahppPVURXPYDKW9467-12-33 11:26:00 Test Item Value Reference Range Interpretation Comments Monocytes (test code = Monocytes) 7.5 2.0-12.0 [facility] CentennialTewucazBZGGRZNHVH9760-81-10 11:26:00 Test Item Value Reference Range Interpretation Comments Eosinophils (test code = 1.0 See_Comment [A utomated message] The Eosinophils) system which ge nerated this result tra nsmitted reference range : <=4.0. The reference r niko was not used to int erpret this result as normal/abnormal . [facility] CentennialOcxpigwNONWICCVYA8228-70-65 11:26:00 Test Item Value Reference Range Interpretation Comments Monocytes # (test code 0.6 See_Comment [Aut omated message] The = Monocytes #) system which generated this result tra nsmitted reference range : <=0.8. The reference r niko was not used to int erpret this result as normal/abnormal . [facility] CentennialVtgfqfoZPPFCGUWPL9154-39-97 11:26:00 Test Item Value Reference Range Interpretation Comments Lymphocytes (test code = Lymphocytes) 21.0 20.0-40.0 [facility]ennialMilnxmnLPQTCGQJXL4639-72-00 11:26:00 Test Item Value Reference Range Interpretation Comments Segs (test code = Segs) 69.8 45.0-75.0 [facility] CentennialYrplkwpADPWZDMLJS9853-21-96 11:26:00 Test Item Value Reference Range Interpretation Comments RBC (test code = RBC) 4.15 4.70-6.10 [facility] CentennialRsornawVGKZQQXAVN1856-87-82 11:26:00 Test Item Value Reference Range Interpretation Comments WBC (test code = WBC) 8.1 3.7-10.4 [facility] CentennialKsylyrwIWFCBFUDNK3462-02-42 11:26:00 Test Item Value Reference Range Interpretation Comments Hct (test code = Hct) 32.3 42.0-54.0 [facility] CentennialTvutbhqBSREFQQLGX5899-56-28 11:26:00 Test Item Value Reference Range Interpretation Comments Hgb (test code = Hgb) 10.6 14.0-18.0 [facility]ennialKzbebjxXSPAQXQYJS4360-23-38 11:26:00 Test Item Value Reference Range Interpretation Comments MCV (test code = MCV) 77.7 80.0-94.0 [facility] CentennialWdvsdytWJZFUXGRLG3893-44-26 11:26:00 Test Item Value Reference Range Interpretation Comments RDW (test code = RDW) 15.9 11.5-14.5 [facility] CentennialSoukkbiKFIOPVIUBO5582-15-69 11:26:00 Test Item Value Reference Range Interpretation Comments Platelet (test code = Platelet) 296 133-450 [facility] CentennialAqmpbndYSWXXRCHPF1896-01-67 11:26:00 Test Item Value Reference Range Interpretation Comments MCH (test code = MCH) 25.5 pg 27.0-31.0 [facility]ennialCjjrhhxPRIRGTDDXG6348-19-57 11:26:00 Test Item Value Reference Range Interpretation Comments MCHC (test code = MCHC) 32.8 32.0-36.0 [facility] CentennialNngkjwwURNHNFTWDV5195-17-05 11:26:00 Test Item Value Reference Range Interpretation Comments MPV (test code = MPV) 6.7 7.4-10.4 [facility]2018-02-09 11:26:00 Test Item Value Reference Range Interpretation Comments Glucose Lvl (test code = Glucose Lvl) 146 70-99 [facility]2018-02-09 11:26:00 Test Item Value Reference Range Interpretation Comments Sodium Lvl (test code = Sodium Lvl) 142 135-145 [facility]2018-02-09 11:26:00 Test Item Value Reference Range Interpretation Comments Chloride Lvl (test code = Chloride Lvl) 104 95-109 [facility]2018-02-09 11:26:00 Test Item Value Reference Range Interpretation Comments Potassium Lvl (test code = Potassium 4.1 3.5-5.1 Lvl) [facility]2018-02-09 11:26:00 Test Item Value Reference Range Interpretation Comments BUN (test code = BUN) 12 7-22 [facility]2018-02-09 11:26:00 Test Item Value Reference Range Interpretation Comments CO2 (test code = CO2) 29 24-32 [facility]2018-02-09 11:26:00 Test Item Value Reference Range Interpretation Comments Calcium Lvl (test code = Calcium Lvl) 8.5 8.5-10.5 [facility]2018-02-09 11:26:00 Test Item Value Reference Range Interpretation Comments eGFR (test code = eGFR) 87 [facility]2018-02-09 11:26:00 Test Item Value Reference Range Interpretation Comments Creatinine Lvl (test code = Creatinine 0.81 0.50-1.40 Lvl) [facility]2018-02-09 11:26:00 Test Item Value Reference Range Interpretation Comments AGAP (test code = AGAP) 13.1 10.0-20.0 [facility]ennialMfsvajuXHMCDWKFLZ3128-02-95 11:26:00 Test Item Value Reference Range Interpretation Comments Basophils (test code = 0.7 See_Comment [Aut omated message] The Basophils) system which ge nerated this result tra nsmitted reference range : <=1.0. The reference r niko was not used to int erpret this result as normal/abnormal . [facility] CentennialSkzmywuLLGQDRKKGS2821-17-20 11:26:00 Test Item Value Reference Range Interpretation Comments Segs-Bands # (test code = Segs-Bands #) 5.7 1.5-8.1 [facility] CentennialMbegzkpITELFISMEZ1159-36-51 11:26:00 Test Item Value Reference Range Interpretation Comments Eosinophils # (test code 0.1 See_Comment [A utomated message] The = Eosinophils #) system whic h generated this result tra nsmitted reference range : <=0.5. The reference r niko was not used to int erpret this result as normal/abnormal . [facility] CentennialLehqtgbKZPGZHRMKB6184-61-34 11:26:00 Test Item Value Reference Range Interpretation Comments Lymphocytes # (test code = Lymphocytes 1.7 1.0-5.5 #) [facility] CentennialMbbwyunLAFXBVKJHG9576-65-84 11:26:00 Test Item Value Reference Range Interpretation Comments Basophils # (test code 0.1 See_Comment [Aut omated message] The = Basophils #) system which generated this result tra nsmitted reference range : <=0.2. The reference r niko was not used to int erpret this result as normal/abnormal . [facility] CentennialIkrwvslHVIJLXYSEM9237-25-79 11:26:00 Test Item Value Reference Range Interpretation Comments Microcyte (test code = 1+ *ABN*(05/04/17 5:26 Microcyte) AM) [facility] CentennialMnmxpmpOCNOLEFWZX2623-12-92 11:26:00 Test Item Value Reference Range Interpretation Comments Monocytes (test code = Monocytes) 7.5 2.0-12.0 [facility]ennialEilqrczGXJPJTTHJU4618-88-59 11:26:00 Test Item Value Reference Range Interpretation Comments Eosinophils (test code = 1.0 See_Comment [A utomated message] The Eosinophils) system which ge nerated this result tra nsmitted reference range : <=4.0. The reference r niko was not used to int erpret this result as normal/abnormal . [facility]ennialVuwaetoLHEOQRIINE2317-06-23 11:26:00 Test Item Value Reference Range Interpretation Comments Monocytes # (test code 0.6 See_Comment [Aut omated message] The = Monocytes #) system which generated this result tra nsmitted reference range : <=0.8. The reference r niko was not used to int erpret this result as normal/abnormal . [facility]ennialTxpejgeVKOVSXTCUO4883-11-01 11:26:00 Test Item Value Reference Range Interpretation Comments Lymphocytes (test code = Lymphocytes) 21.0 20.0-40.0 [facility]ennialCkgdretVJDLSZWUTQ9041-45-96 11:26:00 Test Item Value Reference Range Interpretation Comments Segs (test code = Segs) 69.8 45.0-75.0 [facility]ennialYnthtnjTUEWGHDUVE9378-13-78 11:26:00 Test Item Value Reference Range Interpretation Comments RBC (test code = RBC) 4.15 4.70-6.10 [facility]ennialWvplddbBVJYVLWQRR0050-86-27 11:26:00 Test Item Value Reference Range Interpretation Comments WBC (test code = WBC) 8.1 3.7-10.4 [facility] CentennialBcqbmkmXQIRCGJGIZ6294-77-33 11:26:00 Test Item Value Reference Range Interpretation Comments Hct (test code = Hct) 32.3 42.0-54.0 [facility]ennialGqluulrBDCVZSBRMF3270-99-69 11:26:00 Test Item Value Reference Range Interpretation Comments Hgb (test code = Hgb) 10.6 14.0-18.0 [facility] CentennialTkdrmzeTTMIVSJOZV7238-89-62 11:26:00 Test Item Value Reference Range Interpretation Comments MCV (test code = MCV) 77.7 80.0-94.0 [facility]ennialCoyzfhmAGRNAVECPN6190-81-57 11:26:00 Test Item Value Reference Range Interpretation Comments RDW (test code = RDW) 15.9 11.5-14.5 [facility]ennialAgwdnhrXNGBDJMRJE7674-84-70 11:26:00 Test Item Value Reference Range Interpretation Comments Platelet (test code = Platelet) 296 133-450 [facility] CentennialQjbadreZTEQDKTQTT8203-36-27 11:26:00 Test Item Value Reference Range Interpretation Comments MCH (test code = MCH) 25.5 pg 27.0-31.0 [facility]ennialFifrzcvFMFTFGTAKI4021-90-55 11:26:00 Test Item Value Reference Range Interpretation Comments MCHC (test code = MCHC) 32.8 32.0-36.0 [facility]ennialEkjhyguFTXHOXDXWW4135-60-55 11:26:00 Test Item Value Reference Range Interpretation Comments MPV (test code = MPV) 6.7 7.4-10.4 [place] [id number] 01:39:00 Test Item Value Reference Range Interpretation Comments Sarah Kelly TND (test code = Sarah Tr 2000 1 TND) [place] [id number] 01:39:00 Test Item Value Reference Range Interpretation Comments Vanco Tr (test code = Vanco Tr) 10.5 [place] [id number] 01:39:00 Test Item Value Reference Range Interpretation Comments Chaseo Tr TND (test code = Vanco Tr 2000 1 TND) [place] [id number] 01:39:00 Test Item Value Reference Range Interpretation Comments Vanco Tr (test code = Vanco Tr) 10.5 [facility]2018-02-07 11:54:00 Test Item Value Reference Range Interpretation Comments eGFR (test code = eGFR) 78 [facility]2018-02-07 11:54:00 Test Item Value Reference Range Interpretation Comments Creatinine Lvl (test code = Creatinine 0.96 0.50-1.40 Lvl) [facility]2018-02-07 11:54:00 Test Item Value Reference Range Interpretation Comments Potassium Lvl (test code = Potassium 4.9 3.5-5.1 Lvl) [facility]2018-02-07 11:54:00 Test Item Value Reference Range Interpretation Comments Chloride Lvl (test code = Chloride Lvl) 104 95-109 [facility]2018-02-07 11:54:00 Test Item Value Reference Range Interpretation Comments CO2 (test code = CO2) 29 24-32 [facility]2018-02-07 11:54:00 Test Item Value Reference Range Interpretation Comments Calcium Lvl (test code = Calcium Lvl) 8.6 8.5-10.5 [facility]2018-02-07 11:54:00 Test Item Value Reference Range Interpretation Comments Sodium Lvl (test code = Sodium Lvl) 142 135-145 [facility]2018-02-07 11:54:00 Test Item Value Reference Range Interpretation Comments BUN (test code = BUN) 17 7-22 [facility]2018-02-07 11:54:00 Test Item Value Reference Range Interpretation Comments Glucose Lvl (test code = Glucose Lvl) 152 70-99 [facility]2018-02-07 11:54:00 Test Item Value Reference Range Interpretation Comments AGAP (test code = AGAP) 13.9 10.0-20.0 [facility]ennialBfqkfrsWQXTLGLZWS0711-41-07 11:54:00 Test Item Value Reference Range Interpretation Comments Platelet (test code = Platelet) 329 133450 [facility] CentennialZuuflleKLNVGXTIJE3407-75-64 11:54:00 Test Item Value Reference Range Interpretation Comments MPV (test code = MPV) 7.0 7.4-10.4 [facility] CentennialSaxctckFGGOBCVYEO1927-82-76 11:54:00 Test Item Value Reference Range Interpretation Comments RDW (test code = RDW) 15.7 11.5-14.5 [facility] CentennialRtjkndcEAGVECUWIQ3879-49-21 11:54:00 Test Item Value Reference Range Interpretation Comments MCH (test code = MCH) 25.4 pg 27.0-31.0 [facility] CentennialAiquadcQRHLXBWUYA7793-42-19 11:54:00 Test Item Value Reference Range Interpretation Comments MCHC (test code = MCHC) 32.0 32.0-36.0 [facility]ennialImxaoviUTLIBPDAEB1948-52-02 11:54:00 Test Item Value Reference Range Interpretation Comments Hct (test code = Hct) 33.7 42.0-54.0 [facility]ennialBbbtrlvJAQUMSJEPE6054-31-12 11:54:00 Test Item Value Reference Range Interpretation Comments Hgb (test code = Hgb) 10.8 14.0-18.0 [facility] CentennialGecidlcMTAILMJOCI7537-43-85 11:54:00 Test Item Value Reference Range Interpretation Comments RBC (test code = RBC) 4.25 4.70-6.10 [facility] CentennialUctfnyeAAKXGLAWRP2705-37-71 11:54:00 Test Item Value Reference Range Interpretation Comments MCV (test code = MCV) 79.2 80.0-94.0 [facility] CentennialMtblsldVUKJFXSGIB9840-06-87 11:54:00 Test Item Value Reference Range Interpretation Comments WBC (test code = WBC) 12.8 3.7-10.4 [facility] CentennialDvbrrwbAQBHSVMHHW7636-96-69 11:54:00 Test Item Value Reference Range Interpretation Comments Monocytes (test code = Monocytes) 6.0 2.0-12.0 [facility] CentennialLehhmzbBKLGEXBVOS2118-76-12 11:54:00 Test Item Value Reference Range Interpretation Comments Lymphocytes (test code = Lymphocytes) 9.9 20.0-40.0 [facility] CentennialMajcvvbTPWAYIWDVP5539-48-34 11:54:00 Test Item Value Reference Range Interpretation Comments Basophils (test code = 0.3 See_Comment [Aut omated message] The Basophils) system which ge nerated this result tra nsmitted reference range : <=1.0. The reference r niko was not used to int erpret this result as normal/abnormal . [facility] CentennialAxjenuxMEVIZTONYN6372-12-60 11:54:00 Test Item Value Reference Range Interpretation Comments Segs-Bands # (test code = Segs-Bands #) 10.7 1.5-8.1 [facility] CentennialNmpgenpLVZZYNZWML6424-86-13 11:54:00 Test Item Value Reference Range Interpretation Comments Lymphocytes # (test code = Lymphocytes 1.3 1.0-5.5 #) [facility]ennialHectnguHLZDUQAKJY0008-86-75 11:54:00 Test Item Value Reference Range Interpretation Comments Monocytes # (test code 0.8 See_Comment [Aut omated message] The = Monocytes #) system which generated this result tra nsmitted reference range : <=0.8. The reference r niko was not used to int erpret this result as normal/abnormal . [facility]ennialMyhjwneWNPLSVDERR1555-81-75 11:54:00 Test Item Value Reference Range Interpretation Comments Segs (test code = Segs) 83.8 45.0-75.0 [facility]2018-02-07 11:54:00 Test Item Value Reference Range Interpretation Comments eGFR (test code = eGFR) 78 [facility]2018-02-07 11:54:00 Test Item Value Reference Range Interpretation Comments Creatinine Lvl (test code = Creatinine 0.96 0.50-1.40 Lvl) [facility]2018-02-07 11:54:00 Test Item Value Reference Range Interpretation Comments Potassium Lvl (test code = Potassium 4.9 3.5-5.1 Lvl) [facility]2018-02-07 11:54:00 Test Item Value Reference Range Interpretation Comments Chloride Lvl (test code = Chloride Lvl) 104 95-109 [facility]2018-02-07 11:54:00 Test Item Value Reference Range Interpretation Comments CO2 (test code = CO2) 29 24-32 [facility]2018-02-07 11:54:00 Test Item Value Reference Range Interpretation Comments Calcium Lvl (test code = Calcium Lvl) 8.6 8.5-10.5 [place] 770948-02-07 11:54:00 Test Item Value Reference Range Interpretation Comments Sodium Lvl (test code = Sodium Lvl) 142 135-145 [facility]2018-02-07 11:54:00 Test Item Value Reference Range Interpretation Comments BUN (test code = BUN) 17 7-22 [facility]2018-02-07 11:54:00 Test Item Value Reference Range Interpretation Comments Glucose Lvl (test code = Glucose Lvl) 152 70-99 [facility]2018-02-07 11:54:00 Test Item Value Reference Range Interpretation Comments AGAP (test code = AGAP) 13.9 10.0-20.0 [facility] CentennialJdmrxaeHLMMMHHSJL8240-57-38 11:54:00 Test Item Value Reference Range Interpretation Comments Platelet (test code = Platelet) 329 133-450 [facility]ennialKzxisqoJPCROVGFSY8434-63-25 11:54:00 Test Item Value Reference Range Interpretation Comments MPV (test code = MPV) 7.0 7.4-10.4 [facility] CentennialNqaympbQUZFAXYACW7278-36-74 11:54:00 Test Item Value Reference Range Interpretation Comments RDW (test code = RDW) 15.7 11.5-14.5 [facility] CentennialXrydnkjRLCGATECDD7862-63-14 11:54:00 Test Item Value Reference Range Interpretation Comments MCH (test code = MCH) 25.4 pg 27.0-31.0 [facility] CentennialIsfkmdlRSFSGSLYFA1051-69-02 11:54:00 Test Item Value Reference Range Interpretation Comments MCHC (test code = MCHC) 32.0 32.0-36.0 [facility] CentennialDsbrtdnABSGXXDPAU2565-48-25 11:54:00 Test Item Value Reference Range Interpretation Comments Hct (test code = Hct) 33.7 42.0-54.0 [facility]ennialNobwfxgSDNKEIDQIB1375-11-92 11:54:00 Test Item Value Reference Range Interpretation Comments Hgb (test code = Hgb) 10.8 14.0-18.0 [facility] CentennialLtmurniUOEGCVDIJN4057-74-55 11:54:00 Test Item Value Reference Range Interpretation Comments RBC (test code = RBC) 4.25 4.70-6.10 [facility] CentennialOoymdecERNIFSVDWO4758-06-13 11:54:00 Test Item Value Reference Range Interpretation Comments MCV (test code = MCV) 79.2 80.0-94.0 [facility] CentennialRonrrxiIGPOXYOCBR9344-83-59 11:54:00 Test Item Value Reference Range Interpretation Comments WBC (test code = WBC) 12.8 3.7-10.4 [facility] CentennialGvpzmveABMMGCNELH9965-73-53 11:54:00 Test Item Value Reference Range Interpretation Comments Monocytes (test code = Monocytes) 6.0 2.0-12.0 [facility] CentennialVufheerOPFFVAZDXD0770-20-41 11:54:00 Test Item Value Reference Range Interpretation Comments Lymphocytes (test code = Lymphocytes) 9.9 20.0-40.0 [facility] CentennialTfgskglYMEDGFUARI4570-72-72 11:54:00 Test Item Value Reference Range Interpretation Comments Basophils (test code = 0.3 See_Comment [Aut omated message] The Basophils) system which ge nerated this result tra nsmitted reference range : <=1.0. The reference r niko was not used to int erpret this result as normal/abnormal . [facility]ennialOuajqekDGJYLWRJFC5039-70-29 11:54:00 Test Item Value Reference Range Interpretation Comments Segs-Bands # (test code = Segs-Bands #) 10.7 1.5-8.1 [facility] CentennialGamdafyPBWDZGCFRL3704-07-84 11:54:00 Test Item Value Reference Range Interpretation Comments Lymphocytes # (test code = Lymphocytes 1.3 1.0-5.5 #) [facility] CentennialYokratgJDYRKRLRNO3431-97-71 11:54:00 Test Item Value Reference Range Interpretation Comments Monocytes # (test code 0.8 See_Comment [Aut omated message] The = Monocytes #) system which generated this result tra nsmitted reference range : <=0.8. The reference r niko was not used to int erpret this result as normal/abnormal . [facility]ennialJoydfhdHEKMHDKMQH2864-24-57 11:54:00 Test Item Value Reference Range Interpretation Comments Segs (test code = Segs) 83.8 45.0-75.0 [facility]YPEDTKBT1818-[facility] 16:49:00 Test Item Value Reference Range Interpretation Comments C-REACTIVE PROTEIN (test code = 104.0 C-REACTIVE PROTEIN) [facility]JihgclvDERFATPDIO5742-58-65 16:49:00 Test Item Value Reference Range Interpretation Comments C-REACTIVE PROTEIN (test code = 104.0 C-REACTIVE PROTEIN) [facility]ennialYhukiyoZRQCWZJXNO1028-60-77 14:59:00 Test Item Value Reference Range Interpretation Comments Sed Rate (test code = 40 See_Comment [Auto mated message] The Sed Rate) system which ge nerated this result transmit vasyl reference range : <=15. The reference range was not used to interpr et this result as minnie l/abnormal. [facility] CentennialLbpegyxMHIXMLXQHP6509-84-14 14:59:00 Test Item Value Reference Range Interpretation Comments Sed Rate (test code = 40 See_Comment [Auto mated message] The Sed Rate) system which ge nerated this result transmit vasyl reference range : <=15. The reference range was not used to interpr et this result as minnie l/abnormal. [facility] Shoulder series [id number] 10:45:00EXAMINATION: Right shoulder seriesHISTORY: Right rotator cuff arthropathyFINDINGS: 2 to 3 views of the right shoulder are performed and compared to04/13/2017.There is a reverse yozf-nla-xdzkqk right total shoulder arthroplasty projectingin unchanged near- anatomic alignment without periprosthetic fracture orosteolysis. There has been interval placement of a surgical drain. There is noevidence of scapular notching. 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 Mild right basilar atelectasis is noted.IMPRESSION:1. Reverse qxxf-zyc-tpmdpu right total shoulder arthroplasty in unchangednear-anatomic alignment with interval placement of a surgical drain.--Read by: Raj Cope MDDictated Da te/time: 05/01/17 12:12Electronically Signed by: Raj Cope MD 05/01/1811:14FINAL REPORTUT Physicians[U] XRAY SHOULDER MIN 2 VWS RIGHT [id number] 2017-04-30 09:57:00Images acquired, not reported on this accession number.[facility] [id number] 18:29:00 Test Item Value Reference Range Interpretation Comments eGFR (test code = eGFR) 84 [facility]CHE[facility] [id number] 18:29:00 Test Item Value Reference Range Interpretation Comments POC Potassium (test code = POC 4.4 3.5-5.1 Potassium) [facility] SystemHuggler.com [id number] 18:29:00 Test Item Value Reference Range Interpretation Comments POC Sodium (test code = POC Sodium) 139 135-145 [facility]2018-01-19 18:29:00 Test Item Value Reference Range Interpretation Comments POC Glucose (test code = POC Glucose) 108 70-99 [facility]2018-01-19 18:29:00 Test Item Value Reference Range Interpretation Comments POC AGAP (test code = POC AGAP) 16.0 10.0-20.0 [facility]2018-01-19 18:29:00 Test Item Value Reference Range Interpretation Comments POC Hematocrit (test code = POC 44.0 42.0-54.0 Hematocrit) [facility]2018-01-19 18:29:00 Test Item Value Reference Range Interpretation Comments POC Hemoglobin (test code = POC 15.0 14.0-18.0 Hemoglobin) [facility]2018-01-19 18:29:00 Test Item Value Reference Range Interpretation Comments POC Ion Ca (test code = POC Ion Ca) 1.20 1.05-1.25 [facility]2018-01-19 18:29:00 Test Item Value Reference Range Interpretation Comments POC Chloride (test code = POC Chloride) 100 95-109 [facility]2018-01-19 18:29:00 Test Item Value Reference Range Interpretation Comments POC Creatinine (test code = POC 0.9 0.5-1.4 Creatinine) [facility]2018-01-19 18:29:00 Test Item Value Reference Range Interpretation Comments POC BUN (test code = POC BUN) 16 7-22 [facility]2018-01-19 18:29:00 Test Item Value Reference Range Interpretation Comments POC Carbon Dioxide (test code = POC 29 24-32 Carbon Dioxide) [facility]2018-01-19 18:29:00 Test Item Value Reference Range Interpretation Comments eGFR (test code = eGFR) 84 [facility]2018-01-19 18:29:00 Test Item Value Reference Range Interpretation Comments POC Potassium (test code = POC 4.4 3.5-5.1 Potassium) [facility]2018-01-19 18:29:00 Test Item Value Reference Range Interpretation Comments POC Sodium (test code = POC Sodium) 139 135-145 [place] 770948-01-19 18:29:00 Test Item Value Reference Range Interpretation Comments POC Glucose (test code = POC Glucose) 108 70-99 [facility]2018-01-19 18:29:00 Test Item Value Reference Range Interpretation Comments POC AGAP (test code = POC AGAP) 16.0 10.0-20.0 [facility]2018-01-19 18:29:00 Test Item Value Reference Range Interpretation Comments POC Hematocrit (test code = POC 44.0 42.0-54.0 Hematocrit) [facility]2018-01-19 18:29:00 Test Item Value Reference Range Interpretation Comments POC Hemoglobin (test code = POC 15.0 14.0-18.0 Hemoglobin) [facility]2018-01-19 18:29:00 Test Item Value Reference Range Interpretation Comments POC Ion Ca (test code = POC Ion Ca) 1.20 1.05-1.25 [facility]2018-01-19 18:29:00 Test Item Value Reference Range Interpretation Comments POC Chloride (test code = POC Chloride) 100 95-109 [facility]2018-01-19 18:29:00 Test Item Value Reference Range Interpretation Comments POC Creatinine (test code = POC 0.9 0.5-1.4 Creatinine) [facility]2018-01-19 18:29:00 Test Item Value Reference Range Interpretation Comments POC BUN (test code = POC BUN) 16 7-22 [facility]2018-01-19 18:29:00 Test Item Value Reference Range Interpretation Comments POC Carbon Dioxide (test code = POC 29 24-32 Carbon Dioxide) [facility] Shoulder series [id number] 15:58:00HISTORY: - AP and Grashey in PACUTECHNIQUE: Frontal and Grashey views of the right shoulder.COMPARISON: Study from earlier today.FINDINGS: 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 No evidence ofacute fracture or dislocation. Linear atelectasis is noted within the rightlung.IMPRESSION: Stable surgical change as above.[id number]--Qmjq by: Michelle Amaya MDDictated Date/time: 04/13/17 16:55Electronically Signed by: Michelle Amaya MD 04/13/1815:57FINAL REPORTUT Physicians[U] XRAY SHOULDER MIN 2 VWS RIGHT [id number] 09:38:00 Images acquired, not reported on this accession number.[facility][U] XRAY SHOULDER MIN 2 VWS RIGHT [id number] 10:48:00Images acquired, not reported on this accession number.[facility][U] XRAY SHOULDER MIN 2 VWS RIGHT [id number] 2017-02-05 08:17:00Images acquired, not reported on this accession number.[place] [id number] 10:03:00 Test Item Value Reference Range Interpretation Comments Hgb (test code = Hgb) 11.3 14.0-18.0 [facility]ennialMrsunsnKVJRMQVBEO9743-50-70 10:03:00 Test Item Value Reference Range Interpretation Comments RBC (test code = RBC) 4.20 4.70-6.10 [facility]ennialBdsafgmOPHPKENMHC6400-53-98 10:03:00 Test Item Value Reference Range Interpretation Comments MPV (test code = MPV) 6.7 7.4-10.4 [facility] CentennialPfmuxndFSZXMYQZFU6658-88-53 10:03:00 Test Item Value Reference Range Interpretation Comments Platelet (test code = Platelet) 185 133-450 [facility] CentennialGwodldwWDNDTIFGDZ4134-66-10 10:03:00 Test Item Value Reference Range Interpretation Comments RDW (test code = RDW) 16.1 11.5-14.5 [facility] CentennialCnsydwcVFADMJGBZI7774-78-66 10:03:00 Test Item Value Reference Range Interpretation Comments MCHC (test code = MCHC) 33.2 32.0-36.0 [facility] CentennialBgviaxuSTSXIGNIYL1745-10-39 10:03:00 Test Item Value Reference Range Interpretation Comments Eosinophils (test code = 1.0 See_Comment [A utomated message] The Eosinophils) system which ge nerated this result tra nsmitted reference range : <=4.0. The reference r niko was not used to int erpret this result as normal/abnormal . [facility] CentennialKjpeziiLXEGQRITWK5113-34-49 10:03:00 Test Item Value Reference Range Interpretation Comments Segs-Bands # (test code = Segs-Bands #) 7.4 1.5-8.1 [facility] CentennialMirbnkvGMYUQPUMVR0658-86-01 10:03:00 Test Item Value Reference Range Interpretation Comments Basophils (test code = 1.0 See_Comment [Aut omated message] The Basophils) system which ge nerated this result tra nsmitted reference range : <=1.0. The reference r niko was not used to int erpret this result as normal/abnormal . [facility] CentennialCyiwdpjZWOYEHHLJA7471-22-58 10:03:00 Test Item Value Reference Range Interpretation Comments Lymphocytes (test code = Lymphocytes) 19.6 20.0-40.0 [facility] CentennialTzsindsQVDJHSTVGG7485-05-37 10:03:00 Test Item Value Reference Range Interpretation Comments Segs (test code = Segs) 71.7 45.0-75.0 [facility] CentennialOzswxtgMMRMRMSQMQ6974-50-78 10:03:00 Test Item Value Reference Range Interpretation Comments Monocytes (test code = Monocytes) 6.7 2.0-12.0 [facility] CentennialWonuhfuEDFTYOCTJH8203-86-16 10:03:00 Test Item Value Reference Range Interpretation Comments Monocytes # (test code 0.7 See_Comment [Aut omated message] The = Monocytes #) system which generated this result tra nsmitted reference range : <=0.8. The reference r niko was not used to int erpret this result as normal/abnormal . [facility] CentennialFptyupwGUQZIUZSZB1933-70-22 10:03:00 Test Item Value Reference Range Interpretation Comments Lymphocytes # (test code = Lymphocytes 2.0 1.0-5.5 #) [facility]ennialFstdgduZUBAUIYWBZ2745-16-86 10:03:00 Test Item Value Reference Range Interpretation Comments Eosinophils # (test code 0.1 See_Comment [A utomated message] The = Eosinophils #) system [facility] h generated this result tra nsmitted reference range : <=0.5. The reference r niko was not used to int erpret this result as normal/abnormal . [facility]ennialNrxyfzmMEDYUONHSD6415-01-05 10:03:00 Test Item Value Reference Range Interpretation Comments Basophils # (test code 0.1 See_Comment [Aut omated message] The = Basophils #) system which generated this result tra nsmitted reference range : <=0.2. The reference r niko was not used to int erpret this result as normal/abnormal . [facility] HospitalHmpiutxYJNQJSFQQYAG5314-71-01 10:03:00 Test Item Value Reference Range Interpretation Comments AGAP (test code = AGAP) 12.4 10.0-20.[address] [facility] HospitalGmaxfccWPIQDBYGDESU0569-65-71 10:03:00 Test Item Value Reference Range Interpretation Comments eGFR (test code = eGFR) [address] [facility] HospitalIuiqutbAKRADGXWRLZS6662-39-93 10:03:00 Test Item Value Reference Range Interpretation Comments Glucose Lvl (test code = Glucose Lvl) 123 70-[address] [facility] HospitalGrjxcfoUKQJGYJJNXKZ3879-07-90 10:03:00 Test Item Value Reference Range Interpretation Comments Creatinine Lvl (test code = Creatinine 1.08 0.50-1.40 Lvl) [facility] HospitalGqmeujtVHAZSTXTKLHR0462-83-00 10:03:00 Test Item Value Reference Range Interpretation Comments BUN (test code = BUN) 15 7-[address] [facility] HospitalPnpzcxmBTPMMGDPYDYF0333-87-19 10:03:00 Test Item Value Reference Range Interpretation Comments Sodium Lvl (test code = Sodium Lvl) 141 135-[address] [facility] HospitalUmwvwuwJLRCJRNYLYKI9102-94-22 10:03:00 Test Item Value Reference Range Interpretation Comments Calcium Lvl (test code = Calcium Lvl) 8.2 8.5-10.[address] [facility] HospitalIyhqxrgIPDLHWVMVNLZ7819-78-64 10:03:00 Test Item Value Reference Range Interpretation Comments Chloride Lvl (test code = Chloride Lvl) 106 95-[address] [facility] HospitalZjxqazsWFOLFLCQYISJ6301-04-65 10:03:00 Test Item Value Reference Range Interpretation Comments CO2 (test code = CO2) 27 24-[address] [facility] HospitalWsixzmxSGSNRVYMDRLT9926-35-55 10:03:00 Test Item Value Reference Range Interpretation Comments Potassium Lvl (test code = Potassium 4.4 3.5-5.1 Lvl) [facility]ennialOutjlxgRDZBXVZSZZ4043-30-52 10:03:00 Test Item Value Reference Range Interpretation Comments WBC (test code = WBC) 10.4 3.7-10.4 [facility]ennialJbzypxmOKCTYQATMC8239-26-76 10:03:00 Test Item Value Reference Range Interpretation Comments MCV (test code = MCV) 81.0 80.0-94.0 [facility]ennialDvkjyvxAATGDRLKSZ8887-79-09 10:03:00 Test Item Value Reference Range Interpretation Comments Hct (test code = Hct) 34.1 42.0-54.0 [facility] CentennialVbagptnMOTLGSZTMO7047-13-66 10:03:00 Test Item Value Reference Range Interpretation Comments MCH (test code = MCH) 26.9 pg 27.0-31.[address] [facility] HospitalLrhrbkfRFCOPATHHWLV3681-79-16 10:03:00 Test Item Value Reference Range Interpretation Comments Calcium Lvl (test code = Calcium Lvl) 8.2 8.5-10.[address] [facility] HospitalLyfddjuVVQKLQOHZFDE9691-92-26 10:03:00 Test Item Value Reference Range Interpretation Comments Chloride Lvl (test code = Chloride Lvl) 106 95-[address] [facility] HospitalWsnlxdoDWPVYDYFMTBM8618-65-61 10:03:00 Test Item Value Reference Range Interpretation Comments CO2 (test code = CO2) 27 24-[address] [facility] HospitalXadotlmGGABXJKDZMUX4822-02-55 10:03:00 Test Item Value Reference Range Interpretation Comments Potassium Lvl (test code = Potassium 4.4 3.5-5.1 Lvl) [facility]ennialQzfejnnUELYCLNDKZ4362-05-29 10:03:00 Test Item Value Reference Range Interpretation Comments WBC (test code = WBC) 10.4 3.7-10.4 [facility]ennialMkiqyesGWDICVLCZR9984-59-81 10:03:00 Test Item Value Reference Range Interpretation Comments MCV (test code = MCV) 81.0 80.0-94.0 [facility]ennialMhikhzwYVZWBAVWQA0769-19-84 10:03:00 Test Item Value Reference Range Interpretation Comments Hct (test code = Hct) 34.1 42.0-54.0 [facility]ennialLxtbnxfRGAWVQJKVJ8431-60-70 10:03:00 Test Item Value Reference Range Interpretation Comments MCH (test code = MCH) 26.9 pg 27.0-31.0 [facility]ennialKqkelwyHZCSEYEFOW8668-31-28 10:03:00 Test Item Value Reference Range Interpretation Comments Hgb (test code = Hgb) 11.3 14.0-18.0 [facility]ennialFrwzrbdZNGBGTAYDC2111-57-96 10:03:00 Test Item Value Reference Range Interpretation Comments RBC (test code = RBC) 4.20 4.70-6.10 [facility]ennialIwifyuwVBMUNUTCGR1207-55-97 10:03:00 Test Item Value Reference Range Interpretation Comments MPV (test code = MPV) 6.7 7.4-10.4 [facility]ennialCicnbgpQXYRUXDITO9596-10-51 10:03:00 Test Item Value Reference Range Interpretation Comments Platelet (test code = Platelet) 185 133-450 [facility] CentennialLapgyehSMIZHSACZW1756-57-46 10:03:00 Test Item Value Reference Range Interpretation Comments RDW (test code = RDW) 16.1 11.5-14.5 [facility]ennialXvzleblAYSXZJEYDY8540-35-39 10:03:00 Test Item Value Reference Range Interpretation Comments MCHC (test code = MCHC) 33.2 32.0-36.0 [facility]ennialPgvohzjROQGGVMEPZ8847-47-32 10:03:00 Test Item Value Reference Range Interpretation Comments Eosinophils (test code = 1.0 See_Comment [A utomated message] The Eosinophils) system which ge nerated this result tra nsmitted reference range : <=4.0. The reference r niko was not used to int erpret this result as normal/abnormal . [facility] CentennialJbgtxhtIBOOVMVTHM9462-42-34 10:03:00 Test Item Value Reference Range Interpretation Comments Segs-Bands # (test code = Segs-Bands #) 7.4 1.5-8.1 [facility]ennialVcnzmyxMGITKYMLQM9161-58-30 10:03:00 Test Item Value Reference Range Interpretation Comments Basophils (test code = 1.0 See_Comment [Aut omated message] The Basophils) system which ge nerated this result tra nsmitted reference range : <=1.0. The reference r niko was not used to int erpret this result as normal/abnormal . [facility]ennialWbrtqhkYLFVLRSPEP8326-79-47 10:03:00 Test Item Value Reference Range Interpretation Comments Lymphocytes (test code = Lymphocytes) 19.6 20.0-40.0 [facility] CentennialPvnvtiiUSTGCITQUX0259-32-66 10:03:00 Test Item Value Reference Range Interpretation Comments Segs (test code = Segs) 71.7 45.0-75.0 [facility]ennialHkroxopOHSGJTRQJE8417-17-01 10:03:00 Test Item Value Reference Range Interpretation Comments Monocytes (test code = Monocytes) 6.7 2.0-12.0 [facility]ennialKnrkkxjDRCTZIKLIG9649-92-99 10:03:00 Test Item Value Reference Range Interpretation Comments Monocytes # (test code 0.7 See_Comment [Aut omated message] The = Monocytes #) system which generated this result tra nsmitted reference range : <=0.8. The reference r niko was not used to int erpret this result as normal/abnormal . [facility] CentennialVkarxbvJTDTBEUIDO3855-87-56 10:03:00 Test Item Value Reference Range Interpretation Comments Lymphocytes # (test code = Lymphocytes 2.0 1.0-5.5 #) [facility] CentennialZoawzlhHOKOZZUTPT6997-61-99 10:03:00 Test Item Value Reference Range Interpretation Comments Eosinophils # (test code 0.1 See_Comment [A utomated message] The = Eosinophils #) system whic h generated this result tra nsmitted reference range : <=0.5. The reference r niko was not used to int erpret this result as normal/abnormal . [facility]ennialYqrljkbAWKBWJQKCJ1270-13-98 10:03:00 Test Item Value Reference Range Interpretation Comments Basophils # (test code 0.1 See_Comment [Aut omated message] The = Basophils #) system which generated this result tra nsmitted reference range : <=0.2. The reference r niko was not used to int erpret this result as normal/abnormal . [facility] HospitalBdblhkgHOGMWDXFXEYM3838-29-23 10:03:00 Test Item Value Reference Range Interpretation Comments AGAP (test code = AGAP) 12.4 10.0-20.[address] [facility] HospitalRzzwmdjZLKDLHXNALBA9637-47-64 10:03:00 Test Item Value Reference Range Interpretation Comments eGFR (test code = eGFR) [address] [facility] HospitalRyugengAWFAEGQBDVJU0662-37-12 10:03:00 Test Item Value Reference Range Interpretation Comments Glucose Lvl (test code = Glucose Lvl) 123 70-[address] [facility] HospitalEonywhlJGMZFXWZAVYC7117-46-21 10:03:00 Test Item Value Reference Range Interpretation Comments Creatinine Lvl (test code = Creatinine 1.08 0.50-1.40 Lvl) [facility] HospitalPuyzlutXXGRZXXCTOJL6446-80-27 10:03:00 Test Item Value Reference Range Interpretation Comments BUN (test code = BUN) 15 7-[address] [facility] HospitalVqjkefiEGZYVKDJJIXM9415-08-18 10:03:00 Test Item Value Reference Range Interpretation Comments Sodium Lvl (test code = Sodium Lvl) 141 135-145 [facility] SystemBACTERIAL - BEAISYRS3422-05-09 16:36:00 Test Item Value Reference Range Interpretation Comments MRSA by PCR (test Negative (01/22/17 11:36 code = MRSA by PCR) AM) [facility]2017-10-30 16:36:00 Test Item Value Reference Range Interpretation Comments Albumin Lvl (test code = Albumin Lvl) 3.9 3.5-5.0 [facility]2017-10-30 16:36:00 Test Item Value Reference Range Interpretation Comments Glucose Lvl (test code = Glucose Lvl) 126 70-99 [facility]2017-10-30 16:36:00 Test Item Value Reference Range Interpretation Comments eGFR (test code = eGFR) 70 [facility]2017-10-30 16:36:00 Test Item Value Reference Range Interpretation Comments Creatinine Lvl (test code = Creatinine 1.04 0.50-1.40 Lvl) [facility]2017-10-30 16:36:00 Test Item Value Reference Range Interpretation Comments BUN (test code = BUN) 16 7-[address] [facility] HospitalOsubbjcIBRBMZDLUNNP1602-71-13 16:36:00 Test Item Value Reference Range Interpretation Comments Sodium Lvl (test code = Sodium Lvl) 140 135-[address] [facility] HospitalUlbgsxyGGPNBUNKFVBR2706-22-48 16:36:00 Test Item Value Reference Range Interpretation Comments Potassium Lvl (test code = Potassium 3.6 3.5-5.1 Lvl) [facility]ennialVnwvhrbWHSKTSYWRR5831-33-68 16:36:00 Test Item Value Reference Range Interpretation Comments MPV (test code = MPV) 7.1 7.4-10.4 [facility] CentennialSkaguhrPIDGBTMQRA3206-20-65 16:36:00 Test Item Value Reference Range Interpretation Comments Platelet (test code = Platelet) 224 133-450 [facility] CentennialCjrnorcSVLCMNCZYF2308-62-23 16:36:00 Test Item Value Reference Range Interpretation Comments MCV (test code = MCV) 81.2 80.0-94.0 [facility]ennialOxmfsryOJTKKFJWPT1937-36-89 16:36:00 Test Item Value Reference Range Interpretation Comments RDW (test code = RDW) 16.0 11.5-14.5 [facility] CentennialJmgpijqTMNQECLSET2135-64-34 16:36:00 Test Item Value Reference Range Interpretation Comments MCHC (test code = MCHC) 32.7 32.0-36.0 [facility]ennialQauljacUSYJCACARZ6325-22-72 16:36:00 Test Item Value Reference Range Interpretation Comments MCH (test code = MCH) 26.6 pg 27.0-31.0 [facility]AxqibfiQEQRCZBNQR2933-86-07 16:36:00 Test Item Value Reference Range Interpretation Comments Hct (test code = Hct) 41.9 42.0-54.0 [facility]ennialAsiyftoXEZIBKKBSP3474-53-38 16:36:00 Test Item Value Reference Range Interpretation Comments Hgb (test code = Hgb) 13.7 14.0-18.0 [facility]ennialRmhiocyCGLLMQHEHI1713-24-75 16:36:00 Test Item Value Reference Range Interpretation Comments RBC (test code = RBC) 5.15 4.70-6.10 [facility] InstituteAdvvsouOGWSMTUHEC7081-49-32 16:36:00 Test Item Value Reference Range Interpretation Comments WBC (test code = WBC) 10.7 3.7-10.4 [facility] SystemBACTERIAL - CSTYJYWB2305-34-47 16:36:00 Test Item Value Reference Range Interpretation Comments MRSA by PCR (test Negative (01/22/17 11:36 code = MRSA by PCR) AM) [facility]2017-10-30 16:36:00 Test Item Value Reference Range Interpretation Comments Albumin Lvl (test code = Albumin Lvl) 3.9 3.5-5.0 [facility]2017-10-30 16:36:00 Test Item Value Reference Range Interpretation Comments Glucose Lvl (test code = Glucose Lvl) 126 70-99 [facility]2017-10-30 16:36:00 Test Item Value Reference Range Interpretation Comments eGFR (test code = eGFR) 70 [facility]2017-10-30 16:36:00 Test Item Value Reference Range Interpretation Comments Creatinine Lvl (test code = Creatinine 1.04 0.50-1.40 Lvl) [facility]2017-10-30 16:36:00 Test Item Value Reference Range Interpretation Comments BUN (test code = BUN) 16 7-[address] [facility] HospitalWsbkepnTTVCNOFPIOTE4130-49-46 16:36:00 Test Item Value Reference Range Interpretation Comments Sodium Lvl (test code = Sodium Lvl) 140 135-145 [facility]HopdxlhAOAQYWKOMMDQ5238-02-98 16:36:00 Test Item Value Reference Range Interpretation Comments Potassium Lvl (test code = Potassium 3.6 3.5-5.1 Lvl) [facility]ennialIsyuddxMMVLVHLHHL2209-79-89 16:36:00 Test Item Value Reference Range Interpretation Comments MPV (test code = MPV) 7.1 7.4-10.4 [facility]ennialXuzkpjtOHVMQMWAXV2093-86-64 16:36:00 Test Item Value Reference Range Interpretation Comments Platelet (test code = Platelet) 224 133-450 [facility]ennialSyqjqmxUKWXVAOJJY8459-52-02 16:36:00 Test Item Value Reference Range Interpretation Comments MCV (test code = MCV) 81.2 80.0-94.0 [facility] CentennialOyffojsUVMVEYDRVI3814-46-35 16:36:00 Test Item Value Reference Range Interpretation Comments RDW (test code = RDW) 16.0 11.5-14.5 [facility]ennialChbmbsjGVUIKQVBUX7139-95-33 16:36:00 Test Item Value Reference Range Interpretation Comments MCHC (test code = MCHC) 32.7 32.0-36.0 [facility] CentennialUxnyyazFFGCXUVUEV3305-59-86 16:36:00 Test Item Value Reference Range Interpretation Comments MCH (test code = MCH) 26.6 pg 27.0-31.0 [facility] CentennialLjcflooOYHUYVDQZR8232-60-77 16:36:00 Test Item Value Reference Range Interpretation Comments Hct (test code = Hct) 41.9 42.0-54.0 [facility] CentennialNaqoztySUCOYRUMCA4048-05-29 16:36:00 Test Item Value Reference Range Interpretation Comments Hgb (test code = Hgb) 13.7 14.0-18.0 [facility] CentennialDilcaivGEDRYFMOWG4847-06-33 16:36:00 Test Item Value Reference Range Interpretation Comments RBC (test code = RBC) 5.15 4.70-6.10 [facility]ennialFzboktbFTEQGHLQRA8894-52-46 16:36:00 Test Item Value Reference Range Interpretation Comments WBC (test code = WBC) 10.7 3.7-10.4 [facility] SystemTobacco Use Orqskuwds0518-71-60 19:00:00 Test Item Value Reference Range Interpretation Comments Completed (test code = Completed) [facility]CHE[facility] WKDFH2567-71-12 10:37:00 Test Item Value Reference Range Interpretation Comments A/G Ratio (test code = A/G Ratio) 0.7 0.7-1.6 [facility] SystemannCHEM GBBDJ7248-70-05 10:37:00 Test Item Value Reference Range Interpretation Comments Globulin (test code = Globulin) 3.5 2.7-4.2 [facility]2016-12-26 10:37:00 Test Item Value Reference Range Interpretation Comments B/C Ratio (test code = B/C Ratio) 5 6-25 [place] 770946-12-26 10:37:00 Test Item Value Reference Range Interpretation Comments AGAP (test code = AGAP) 14.7 10.0-20.0 [place] 770946-12-26 10:37:00 Test Item Value Reference Range Interpretation Comments eGFR (test code = eGFR) 90 [facility]2016-12-26 10:37:00 Test Item Value Reference Range Interpretation Comments Alk Phos (test code = Alk Phos) 125 39-136 [facility]2016-12-26 10:37:00 Test Item Value Reference Range Interpretation Comments AST (test code = AST) 13 See_Comment [Auto mated message] The system which ge nerated this result transmit vasyl reference range : <=37. The reference range was not used to interpr et this result as minnie l/abnormal. [facility]2016-12-26 10:37:00 Test Item Value Reference Range Interpretation Comments ALT (test code = ALT) 23 See_Comment [Auto mated message] The system which ge nerated this result transmit vasyl reference range : <=65. The reference range was not used to interpr et this result as minnie l/abnormal. [facility]2016-12-26 10:37:00 Test Item Value Reference Range Interpretation Comments Albumin Lvl (test code = Albumin Lvl) 2.5 3.5-5.0 [facility]2016-12-26 10:37:00 Test Item Value Reference Range Interpretation Comments Bili Total (test code = Bili Total) 0.5 0.2-1.3 [facility]2016-12-26 10:37:00 Test Item Value Reference Range Interpretation Comments Potassium Lvl (test code = Potassium 3.7 3.5-5.1 Lvl) [place] 770946-12-26 10:37:00 Test Item Value Reference Range Interpretation Comments Total Protein (test code = Total 6.0 6.4-8.4 Protein) [facility]2016-12-26 10:37:00 Test Item Value Reference Range Interpretation Comments CO2 (test code = CO2) 25 24-32 [facility]2016-12-26 10:37:00 Test Item Value Reference Range Interpretation Comments Calcium Lvl (test code = Calcium Lvl) 8.8 8.5-10.5 [facility]2016-12-26 10:37:00 Test Item Value Reference Range Interpretation Comments Creatinine Lvl (test code = Creatinine 0.76 0.50-1.40 Lvl) [facility]2016-12-26 10:37:00 Test Item Value Reference Range Interpretation Comments Sodium Lvl (test code = Sodium Lvl) 141 135-145 [facility]2016-12-26 10:37:00 Test Item Value Reference Range Interpretation Comments Chloride Lvl (test code = Chloride Lvl) 105 95-109 [facility]2016-12-26 10:37:00 Test Item Value Reference Range Interpretation Comments BUN (test code = BUN) 4 7-22 [facility]2016-12-26 10:37:00 Test Item Value Reference Range Interpretation Comments Glucose Lvl (test code = Glucose Lvl) 103 70-99 [facility]2016-12-26 10:37:00 Test Item Value Reference Range Interpretation Comments Phosphorus (test code = Phosphorus) 3.6 2.5-4.5 [facility]2016-12-26 10:37:00 Test Item Value Reference Range Interpretation Comments Magnesium Lvl (test code = Magnesium 2.0 1.8-2.4 Lvl) [facility]ennialZycnoyjBKBEWWQOEV8166-11-61 10:37:00 Test Item Value Reference Range Interpretation Comments Segs (test code = Segs) 53.2 45.0-75.0 [facility]ennialKgnsfyvJADTEJEVGL7792-96-10 10:37:00 Test Item Value Reference Range Interpretation Comments Lymphocytes (test code = Lymphocytes) 36.3 20.0-40.0 [facility] CentennialCgajjwhKPBATKBUDD7259-98-39 10:37:00 Test Item Value Reference Range Interpretation Comments Monocytes (test code = Monocytes) 8.0 2.0-12.0 [facility] CentennialJhznvmtMJMBUIRKUV5861-18-70 10:37:00 Test Item Value Reference Range Interpretation Comments Eosinophils (test code = 1.9 See_Comment [A utomated message] The Eosinophils) system which ge nerated this result tra nsmitted reference range : <=4.0. The reference r niko was not used to int erpret this result as normal/abnormal . [facility] CentennialXffpvcyPBITTMQNLZ3213-99-71 10:37:00 Test Item Value Reference Range Interpretation Comments Basophils (test code = 0.6 See_Comment [Aut omated message] The Basophils) system which ge nerated this result tra nsmitted reference range : <=1.0. The reference r niko was not used to int erpret this result as normal/abnormal . [facility] CentennialCberwmrPHFDBIDZHB8060-49-29 10:37:00 Test Item Value Reference Range Interpretation Comments Monocytes # (test code 0.6 See_Comment [Aut omated message] The = Monocytes #) system which generated this result tra nsmitted reference range : <=0.8. The reference r niko was not used to int erpret this result as normal/abnormal . [facility] CentennialRurkxeiSWHFEZLQIB2857-82-61 10:37:00 Test Item Value Reference Range Interpretation Comments Eosinophils # (test code 0.1 See_Comment [A utomated message] The = Eosinophils #) system whic h generated this result tra nsmitted reference range : <=0.5. The reference r niko was not used to int erpret this result as normal/abnormal . [facility]ennialPxbrpagPVRAXWWCJJ3883-60-48 10:37:00 Test Item Value Reference Range Interpretation Comments Segs-Bands # (test code = Segs-Bands #) 3.9 1.5-8.1 [facility] CentennialAtpgacwOSZLMPXRQP1354-03-64 10:37:00 Test Item Value Reference Range Interpretation Comments Lymphocytes # (test code = Lymphocytes 2.6 1.0-5.5 #) [facility] CentennialFigirmgLEPLOFVTNG7008-48-73 10:37:00 Test Item Value Reference Range Interpretation Comments MCH (test code = MCH) 27.9 pg 27.0-31.0 [facility] CentennialRswjhbxQKGGFRQYCU9244-29-54 10:37:00 Test Item Value Reference Range Interpretation Comments RBC (test code = RBC) 3.23 4.70-6.10 [facility] CentennialAkpmdlcXKCEXSUMUY8303-99-81 10:37:00 Test Item Value Reference Range Interpretation Comments Hgb (test code = Hgb) 9.0 14.0-18.0 [facility] CentennialTntfjsyBGGTIRLVNK9113-78-23 10:37:00 Test Item Value Reference Range Interpretation Comments Hct (test code = Hct) 27.1 42.0-54.0 [facility] CentennialCksqutcQSQRIWWAAJ7153-29-27 10:37:00 Test Item Value Reference Range Interpretation Comments MCV (test code = MCV) 84.0 80.0-94.0 [facility] CentennialXjsthwjSQLRAAEPVS9161-21-00 10:37:00 Test Item Value Reference Range Interpretation Comments WBC (test code = WBC) 7.2 3.7-10.4 [facility] CentennialIbkmkpbFYJDARZRRV7307-25-28 10:37:00 Test Item Value Reference Range Interpretation Comments MCHC (test code = MCHC) 33.2 32.0-36.0 [facility] CentennialCzkarhnYHBWFFDJHU8671-52-05 10:37:00 Test Item Value Reference Range Interpretation Comments Platelet (test code = Platelet) 333 432-450 [facility] CentennialVanzayvTQGAOFDTZV3078-55-99 10:37:00 Test Item Value Reference Range Interpretation Comments MPV (test code = MPV) 7.6 7.4-10.4 [facility] CentennialCzsiiwoPNINDXOXNV0669-21-63 10:37:00 Test Item Value Reference Range Interpretation Comments RDW (test code = RDW) 15.3 11.5-14.5 [facility]2016-12-26 10:37:00 Test Item Value Reference Range Interpretation Comments A/G Ratio (test code = A/G Ratio) 0.7 0.7-1.6 [facility]2016-12-26 10:37:00 Test Item Value Reference Range Interpretation Comments Globulin (test code = Globulin) 3.5 2.7-4.2 [facility]2016-12-26 10:37:00 Test Item Value Reference Range Interpretation Comments B/C Ratio (test code = B/C Ratio) 5 6-25 [facility]2016-12-26 10:37:00 Test Item Value Reference Range Interpretation Comments AGAP (test code = AGAP) 14.7 10.0-20.0 [facility]2016-12-26 10:37:00 Test Item Value Reference Range Interpretation Comments eGFR (test code = eGFR) 90 [place] 770946-12-26 10:37:00 Test Item Value Reference Range Interpretation Comments Alk Phos (test code = Alk Phos) 125 39-136 [facility]2016-12-26 10:37:00 Test Item Value Reference Range Interpretation Comments AST (test code = AST) 13 See_Comment [Auto mated message] The system which ge nerated this result transmit vasyl reference range : <=37. The reference range was not used to interpr et this result as minnie l/abnormal. [facility]2016-12-26 10:37:00 Test Item Value Reference Range Interpretation Comments ALT (test code = ALT) 23 See_Comment [Auto mated message] The system which ge nerated this result transmit vasyl reference range : <=65. The reference range was not used to interpr et this result as minnie l/abnormal. [place] 770946-12-26 10:37:00 Test Item Value Reference Range Interpretation Comments Albumin Lvl (test code = Albumin Lvl) 2.5 3.5-5.0 [facility]2016-12-26 10:37:00 Test Item Value Reference Range Interpretation Comments Bili Total (test code = Bili Total) 0.5 0.2-1.3 [facility]2016-12-26 10:37:00 Test Item Value Reference Range Interpretation Comments Potassium Lvl (test code = Potassium 3.7 3.5-5.1 Lvl) [facility]2016-12-26 10:37:00 Test Item Value Reference Range Interpretation Comments Total Protein (test code = Total 6.0 6.4-8.4 Protein) [facility]2016-12-26 10:37:00 Test Item Value Reference Range Interpretation Comments CO2 (test code = CO2) 25 24-32 [place] 770946-12-26 10:37:00 Test Item Value Reference Range Interpretation Comments Calcium Lvl (test code = Calcium Lvl) 8.8 8.5-10.5 [place] 770946-12-26 10:37:00 Test Item Value Reference Range Interpretation Comments Creatinine Lvl (test code = Creatinine 0.76 0.50-1.40 Lvl) [place] 770946-12-26 10:37:00 Test Item Value Reference Range Interpretation Comments Sodium Lvl (test code = Sodium Lvl) 141 135-145 [facility]2016-12-26 10:37:00 Test Item Value Reference Range Interpretation Comments Chloride Lvl (test code = Chloride Lvl) 105 95-109 [facility]2016-12-26 10:37:00 Test Item Value Reference Range Interpretation Comments BUN (test code = BUN) 4 7-22 [facility]2016-12-26 10:37:00 Test Item Value Reference Range Interpretation Comments Glucose Lvl (test code = Glucose Lvl) 103 70-99 [facility]2016-12-26 10:37:00 Test Item Value Reference Range Interpretation Comments Phosphorus (test code = Phosphorus) 3.6 2.5-4.5 [facility]2016-12-26 10:37:00 Test Item Value Reference Range Interpretation Comments Magnesium Lvl (test code = Magnesium 2.0 1.8-2.4 Lvl) [facility]MxxjjfuAZUPAHVRUP3130-12-10 10:37:00 Test Item Value Reference Range Interpretation Comments Segs (test code = Segs) 53.2 45.0-75.0 [facility]ennialVvofnejOBPROROENW0341-61-20 10:37:00 Test Item Value Reference Range Interpretation Comments Lymphocytes (test code = Lymphocytes) 36.3 20.0-40.0 [facility]ennialVoghahkNSUNHPNIRZ0963-42-52 10:37:00 Test Item Value Reference Range Interpretation Comments Monocytes (test code = Monocytes) 8.0 2.0-12.0 [facility]ennialLprapmbNUTIHJTLRE9924-80-26 10:37:00 Test Item Value Reference Range Interpretation Comments Eosinophils (test code = 1.9 See_Comment [A utomated message] The Eosinophils) system which nerated this result tra nsmitted reference range : <=4.0. The reference r niko was not used to int erpret this result as normal/abnormal . [facility]ennialTcltbgbTCXPUEUGVE9580-36-70 10:37:00 Test Item Value Reference Range Interpretation Comments Basophils (test code = 0.6 See_Comment [Aut omated message] The Basophils) system which ge nerated this result tra nsmitted reference range : <=1.0. The reference r niko was not used to int erpret this result as normal/abnormal . [place] 182116-12-26 10:37:00 Test Item Value Reference Range Interpretation Comments Monocytes # (test code 0.6 See_Comment [Aut omated message] The = Monocytes #) system which generated this result tra nsmitted reference range : <=0.8. The reference r niko was not used to int erpret this result as normal/abnormal . [facility]ennialTgqfpkiSXMFEFJOTI5797-45-48 10:37:00 Test Item Value Reference Range Interpretation Comments Eosinophils # (test code 0.1 See_Comment [A utomated message] The = Eosinophils #) system whic h generated this result tra nsmitted reference range : <=0.5. The reference r niko was not used to int erpret this result as normal/abnormal . [facility]ennialWndgnjqGFPBBLEKYO9984-14-80 10:37:00 Test Item Value Reference Range Interpretation Comments Segs-Bands # (test code = Segs-Bands #) 3.9 1.5-8.1 [facility]ennialCmytowcWGEVYAUMNI2761-10-19 10:37:00 Test Item Value Reference Range Interpretation Comments Lymphocytes # (test code = Lymphocytes 2.6 1.0-5.5 #) [facility]ennialIigjszsEDCVCWVVDC1460-86-56 10:37:00 Test Item Value Reference Range Interpretation Comments MCH (test code = MCH) 27.9 pg 27.0-31.0 [facility]ennialMowfmpnSARDDHDFNU8746-73-76 10:37:00 Test Item Value Reference Range Interpretation Comments RBC (test code = RBC) 3.23 4.70-6.10 [facility]ennialMmvldneDMRZQTQNUI4336-29-47 10:37:00 Test Item Value Reference Range Interpretation Comments Hgb (test code = Hgb) 9.0 14.0-18.0 [facility]ennialQfknjzoFFCBPEFOOR0159-92-66 10:37:00 Test Item Value Reference Range Interpretation Comments Hct (test code = Hct) 27.1 42.0-54.0 [facility]ennialKspsakzXVZVSKNUVE7199-02-33 10:37:00 Test Item Value Reference Range Interpretation Comments MCV (test code = MCV) 84.0 80.0-94.0 [facility] CentennialLsqykksPBBVHWPPLX4711-27-71 10:37:00 Test Item Value Reference Range Interpretation Comments WBC (test code = WBC) 7.2 3.7-10.4 [place] 182116-12-26 10:37:00 Test Item Value Reference Range Interpretation Comments MCHC (test code = MCHC) 33.2 32.0-36.0 [facility] CentennialLaxapvyXOFUVQOFIK1604-40-68 10:37:00 Test Item Value Reference Range Interpretation Comments Platelet (test code = Platelet) 333 133-450 [facility]ennialBjomwfpFNNBGMHPTQ0593-69-06 10:37:00 Test Item Value Reference Range Interpretation Comments MPV (test code = MPV) 7.6 7.4-10.4 [facility] CentennialGbvgylsUIMNTJBCVV7156-86-30 10:37:00 Test Item Value Reference Range Interpretation Comments RDW (test code = RDW) 15.3 11.5-14.5 [facility]2016-12-24 11:30:00 Test Item Value Reference Range Interpretation Comments Folate Lvl (test code = Folate Lvl) 25.2 [facility]2016-12-24 11:30:00 Test Item Value Reference Range Interpretation Comments Vitamin B12 Lvl (test code = Vitamin 8124 [id number] B12 Lvl) [facility]2016-12-24 11:30:00 Test Item Value Reference Range Interpretation Comments VITAMIN B1 (THIAMINE) WHOLE BLOOD (test 208.6 66.5-200.0 code = VITAMIN B1 (THIAMINE) WHOLE BLOOD) [facility]2016-12-24 11:30:00 Test Item Value Reference Range Interpretation Comments Globulin (test code = Globulin) 3.6 2.7-4.2 [facility]2016-12-24 11:30:00 Test Item Value Reference Range Interpretation Comments A/G Ratio (test code = A/G Ratio) 0.7 0.7-1.6 [facility]2016-12-24 11:30:00 Test Item Value Reference Range Interpretation Comments AGAP (test code = AGAP) 11.9 10.0-20.0 [facility]2016-12-24 11:30:00 Test Item Value Reference Range Interpretation Comments B/C Ratio (test code = B/C Ratio) 6 6-25 [facility]2016-12-24 11:30:00 Test Item Value Reference Range Interpretation Comments eGFR (test code = eGFR) 90 [facility]2016-12-24 11:30:00 Test Item Value Reference Range Interpretation Comments Alk Phos (test code = Alk Phos) 132 39-136 [facility]2016-12-24 11:30:00 Test Item Value Reference Range Interpretation Comments Bili Total (test code = Bili Total) 0.4 0.2-1.3 [facility]2016-12-24 11:30:00 Test Item Value Reference Range Interpretation Comments Calcium Lvl (test code = Calcium Lvl) 8.6 8.5-10.5 [facility]2016-12-24 11:30:00 Test Item Value Reference Range Interpretation Comments BUN (test code = BUN) 5 7-22 [facility]2016-12-24 11:30:00 Test Item Value Reference Range Interpretation Comments AST (test code = AST) 16 See_Comment [Auto mated message] The system which ge nerated this result transmit vasyl reference range : <=37. The reference range was not used to interpr et this result as minnie l/abnormal. [facility]2016-12-24 11:30:00 Test Item Value Reference Range Interpretation Comments ALT (test code = ALT) 32 See_Comment [Auto mated message] The system which ge nerated this result transmit vasyl reference range : <=65. The reference range was not used to interpr et this result as minnie l/abnormal. [facility]2016-12-24 11:30:00 Test Item Value Reference Range Interpretation Comments Albumin Lvl (test code = Albumin Lvl) 2.5 3.5-5.0 [facility]2016-12-24 11:30:00 Test Item Value Reference Range Interpretation Comments Total Protein (test code = Total 6.1 6.4-8.4 Protein) [facility]2016-12-24 11:30:00 Test Item Value Reference Range Interpretation Comments Creatinine Lvl (test code = Creatinine 0.78 0.50-1.40 Lvl) [facility]2016-12-24 11:30:00 Test Item Value Reference Range Interpretation Comments Chloride Lvl (test code = Chloride Lvl) 107 95-109 [facility]2016-12-24 11:30:00 Test Item Value Reference Range Interpretation Comments Sodium Lvl (test code = Sodium Lvl) 143 135-145 [facility]2016-12-24 11:30:00 Test Item Value Reference Range Interpretation Comments CO2 (test code = CO2) 28 24-32 [facility]2016-12-24 11:30:00 Test Item Value Reference Range Interpretation Comments Potassium Lvl (test code = Potassium 3.9 3.5-5.1 Lvl) [facility]2016-12-24 11:30:00 Test Item Value Reference Range Interpretation Comments Glucose Lvl (test code = Glucose Lvl) 105 70-99 [facility]2016-12-24 11:30:00 Test Item Value Reference Range Interpretation Comments Phosphorus (test code = Phosphorus) 3.3 2.5-4.5 [facility]2016-12-24 11:30:00 Test Item Value Reference Range Interpretation Comments Magnesium Lvl (test code = Magnesium 1.9 1.8-2.4 Lvl) [facility]ennialShytmlfJOOXEBLOMS9958-49-44 11:30:00 Test Item Value Reference Range Interpretation Comments Monocytes (test code = Monocytes) 6.0 2.0-12.0 [place] 182116-12-24 11:30:00 Test Item Value Reference Range Interpretation Comments Eosinophils (test code = 1.6 See_Comment [A utomated message] The Eosinophils) system which ge nerated this result tra nsmitted reference range : <=4.0. The reference r niko was not used to int erpret this result as normal/abnormal . [facility] CentennialUwlywewGODAZDALRO8480-66-67 11:30:00 Test Item Value Reference Range Interpretation Comments Lymphocytes (test code = Lymphocytes) 27.6 20.0-40.0 [facility]ennialWdqgdkbKOILQKRMSK0287-03-75 11:30:00 Test Item Value Reference Range Interpretation Comments Segs (test code = Segs) 64.1 45.0-75.0 [facility] CentennialBshsrtdCPFLRBXFAH7665-31-85 11:30:00 Test Item Value Reference Range Interpretation Comments Segs-Bands # (test code = Segs-Bands #) 5.3 1.5-8.1 [facility] CentennialLdxnjsdWTINNZEKTA8742-29-69 11:30:00 Test Item Value Reference Range Interpretation Comments Basophils (test code = 0.7 See_Comment [Aut omated message] The Basophils) system which ge nerated this result tra nsmitted reference range : <=1.0. The reference r niko was not used to int erpret this result as normal/abnormal . [facility] CentennialLosdxdnWTSDADXBCG5479-67-11 11:30:00 Test Item Value Reference Range Interpretation Comments Basophils # (test code 0.1 See_Comment [Aut omated message] The = Basophils #) system which generated this result tra nsmitted reference range : <=0.2. The reference r niko was not used to int erpret this result as normal/abnormal . [facility] CentennialBvdgnxeORUJZNIDJZ9808-03-80 11:30:00 Test Item Value Reference Range Interpretation Comments Eosinophils # (test code 0.1 See_Comment [A utomated message] The = Eosinophils #) system whic h generated this result tra nsmitted reference range : <=0.5. The reference r niko was not used to int erpret this result as normal/abnormal . [facility] CentennialIxhduzpMYPPFSVQGN9495-54-06 11:30:00 Test Item Value Reference Range Interpretation Comments Lymphocytes # (test code = Lymphocytes 2.3 1.0-5.5 #) [facility] CentennialApnjbyeSSQHTVKJDM9310-03-37 11:30:00 Test Item Value Reference Range Interpretation Comments Monocytes # (test code 0.5 See_Comment [Aut omated message] The = Monocytes #) system which generated this result tra nsmitted reference range : <=0.8. The reference r niko was not used to int erpret this result as normal/abnormal . [facility] CentennialRwlkgbxFMZMZTCHSS4115-47-65 11:30:00 Test Item Value Reference Range Interpretation Comments Sed Rate (test code = 74 See_Comment [Auto mated message] The Sed Rate) system which ge nerated this result transmit vasyl reference range : <=15. The reference range was not used to interpr et this result as minnie l/abnormal. [facility] CentennialWdymduoGPZXNHNGCK2981-03-73 11:30:00 Test Item Value Reference Range Interpretation Comments WBC (test code = WBC) 8.3 3.7-10.4 [facility] CentennialJdaewxbZXFPDXHYIP4885-76-00 11:30:00 Test Item Value Reference Range Interpretation Comments RBC (test code = RBC) 3.31 4.70-6.10 [facility] CentennialXudaoypSYEPFFPRQQ9065-38-17 11:30:00 Test Item Value Reference Range Interpretation Comments Hgb (test code = Hgb) 9.2 14.0-18.0 [facility] CentennialImsqvmrEDBNUNGNGU9600-80-57 11:30:00 Test Item Value Reference Range Interpretation Comments MCV (test code = MCV) 85.0 80.0-94.0 [facility] CentennialKpranxgPGZDNJSBEU6991-58-44 11:30:00 Test Item Value Reference Range Interpretation Comments MCH (test code = MCH) 27.8 pg 27.0-31.0 [facility] CentennialUlewicwMNBQSSHBYB3760-23-94 11:30:00 Test Item Value Reference Range Interpretation Comments Hct (test code = Hct) 28.2 42.0-54.0 [facility] CentennialVblwksxLXQUSBZHZX1485-58-72 11:30:00 Test Item Value Reference Range Interpretation Comments RDW (test code = RDW) 15.0 11.5-14.5 [facility] CentennialLscsbnySLBBYEMISM9368-53-36 11:30:00 Test Item Value Reference Range Interpretation Comments Platelet (test code = Platelet) 370 133-450 [facility] CentennialLgynbxsMKCTACFKUL6459-49-31 11:30:00 Test Item Value Reference Range Interpretation Comments MPV (test code = MPV) 7.7 7.4-10.4 [facility] CentennialBuflkppXQUQDKMOAN0608-30-31 11:30:00 Test Item Value Reference Range Interpretation Comments MCHC (test code = MCHC) 32.7 32.0-36.0 [facility] 11:30:00 Test Item Value Reference Range Interpretation Comments C-REACTIVE PROTEIN (test code = 20.1 C-REACTIVE PROTEIN) [facility]2016-12-24 11:30:00 Test Item Value Reference Range Interpretation Comments Folate Lvl (test code = Folate Lvl) 25.2 [facility]2016-12-24 11:30:00 Test Item Value Reference Range Interpretation Comments Vitamin B12 Lvl (test code = Vitamin [phone] B12 Lvl) [facility]2016-12-24 11:30:00 Test Item Value Reference Range Interpretation Comments VITAMIN B1 (THIAMINE) WHOLE BLOOD (test 208.6 66.5-200.0 code = VITAMIN B1 (THIAMINE) WHOLE BLOOD) [facility]2016-12-24 11:30:00 Test Item Value Reference Range Interpretation Comments Globulin (test code = Globulin) 3.6 2.7-4.2 [facility]2016-12-24 11:30:00 Test Item Value Reference Range Interpretation Comments A/G Ratio (test code = A/G Ratio) 0.7 0.7-1.6 [place] 770946-12-24 11:30:00 Test Item Value Reference Range Interpretation Comments AGAP (test code = AGAP) 11.9 10.0-20.0 [place] 770946-12-24 11:30:00 Test Item Value Reference Range Interpretation Comments B/C Ratio (test code = B/C Ratio) 6 6-25 [place] 770946-12-24 11:30:00 Test Item Value Reference Range Interpretation Comments eGFR (test code = eGFR) 90 [facility]2016-12-24 11:30:00 Test Item Value Reference Range Interpretation Comments Alk Phos (test code = Alk Phos) 132 39-136 [facility]2016-12-24 11:30:00 Test Item Value Reference Range Interpretation Comments Bili Total (test code = Bili Total) 0.4 0.2-1.3 [facility]2016-12-24 11:30:00 Test Item Value Reference Range Interpretation Comments Calcium Lvl (test code = Calcium Lvl) 8.6 8.5-10.5 [facility]2016-12-24 11:30:00 Test Item Value Reference Range Interpretation Comments BUN (test code = BUN) 5 7-22 [facility]2016-12-24 11:30:00 Test Item Value Reference Range Interpretation Comments AST (test code = AST) 16 See_Comment [Auto mated message] The system which ge nerated this result transmit vasyl reference range : <=37. The reference range was not used to interpr et this result as minnie l/abnormal. [facility]2016-12-24 11:30:00 Test Item Value Reference Range Interpretation Comments ALT (test code = ALT) 32 See_Comment [Auto mated message] The system which ge nerated this result transmit vasyl reference range : <=65. The reference range was not used to interpr et this result as minnie l/abnormal. [place] 770946-12-24 11:30:00 Test Item Value Reference Range Interpretation Comments Albumin Lvl (test code = Albumin Lvl) 2.5 3.5-5.0 [facility]2016-12-24 11:30:00 Test Item Value Reference Range Interpretation Comments Total Protein (test code = Total 6.1 6.4-8.4 Protein) [facility]2016-12-24 11:30:00 Test Item Value Reference Range Interpretation Comments Creatinine Lvl (test code = Creatinine 0.78 0.50-1.40 Lvl) [facility]2016-12-24 11:30:00 Test Item Value Reference Range Interpretation Comments Chloride Lvl (test code = Chloride Lvl) 107 95-109 [facility]2016-12-24 11:30:00 Test Item Value Reference Range Interpretation Comments Sodium Lvl (test code = Sodium Lvl) 143 135-145 [facility]2016-12-24 11:30:00 Test Item Value Reference Range Interpretation Comments CO2 (test code = CO2) 28 24-32 [facility]2016-12-24 11:30:00 Test Item Value Reference Range Interpretation Comments Potassium Lvl (test code = Potassium 3.9 3.5-5.1 Lvl) [facility]2016-12-24 11:30:00 Test Item Value Reference Range Interpretation Comments Glucose Lvl (test code = Glucose Lvl) 105 70-99 [place] 770946-12-24 11:30:00 Test Item Value Reference Range Interpretation Comments Phosphorus (test code = Phosphorus) 3.3 2.5-4.5 [facility]2016-12-24 11:30:00 Test Item Value Reference Range Interpretation Comments Magnesium Lvl (test code = Magnesium 1.9 1.8-2.4 Lvl) [facility] CentennialDelgpqlPHBVLZMCZK6980-78-80 11:30:00 Test Item Value Reference Range Interpretation Comments Monocytes (test code = Monocytes) 6.0 2.0-12.0 [facility] CentennialIgkywmmSLVDDPHGAU8182-00-46 11:30:00 Test Item Value Reference Range Interpretation Comments Eosinophils (test code = 1.6 See_Comment [A utomated message] The Eosinophils) system which ge nerated this result tra nsmitted reference range : <=4.0. The reference r niko was not used to int erpret this result as normal/abnormal . [facility] CentennialSegahaeMODGYAUEAO3623-56-73 11:30:00 Test Item Value Reference Range Interpretation Comments Lymphocytes (test code = Lymphocytes) 27.6 20.0-40.0 [facility] CentennialVhcwhadVPSJNKABTW7936-56-69 11:30:00 Test Item Value Reference Range Interpretation Comments Segs (test code = Segs) 64.1 45.0-75.0 [facility] CentennialRpottpgFJZRPITGOF9232-67-33 11:30:00 Test Item Value Reference Range Interpretation Comments Segs-Bands # (test code = Segs-Bands #) 5.3 1.5-8.1 [facility] CentennialBvvgtbiRPMHEUOHKY4243-54-70 11:30:00 Test Item Value Reference Range Interpretation Comments Basophils (test code = 0.7 See_Comment [Aut omated message] The Basophils) system which ge nerated this result tra nsmitted reference range : <=1.0. The reference r niko was not used to int erpret this result as normal/abnormal . [facility] CentennialOjcyacbLPNMQSDSFD1696-18-75 11:30:00 Test Item Value Reference Range Interpretation Comments Basophils # (test code 0.1 See_Comment [Aut omated message] The = Basophils #) system which generated this result tra nsmitted reference range : <=0.2. The reference r niko was not used to int erpret this result as normal/abnormal . [facility] CentennialZfszzkxDCAGCEOFHG2880-40-29 11:30:00 Test Item Value Reference Range Interpretation Comments Eosinophils # (test code 0.1 See_Comment [A utomated message] The = Eosinophils #) system [facility] generated this result tra nsmitted reference range : <=0.5. The reference r niko was not used to int erpret this result as normal/abnormal . [facility]ennialLepxbwmYUCGTBNUOQ1765-58-83 11:30:00 Test Item Value Reference Range Interpretation Comments Lymphocytes # (test code = Lymphocytes 2.3 1.0-5.5 #) [facility] CentennialIczdmccKPPQRGHDWM0518-38-87 11:30:00 Test Item Value Reference Range Interpretation Comments Monocytes # (test code 0.5 See_Comment [Aut omated message] The = Monocytes #) system which generated this result tra nsmitted reference range : <=0.8. The reference r niko was not used to int erpret this result as normal/abnormal . [facility]ennialXrgtoqpDQOASVMZLK0162-10-96 11:30:00 Test Item Value Reference Range Interpretation Comments Sed Rate (test code = 74 See_Comment [Auto mated message] The Sed Rate) system which ge nerated this result transmit vasyl reference range : <=15. The reference range was not used to interpr et this result as minnie l/abnormal. [facility] CentennialWesavgrMEFNXSOCIG5490-85-21 11:30:00 Test Item Value Reference Range Interpretation Comments WBC (test code = WBC) 8.3 3.7-10.4 [facility] CentennialFhymfcwKHVNSTCEJD8325-76-61 11:30:00 Test Item Value Reference Range Interpretation Comments RBC (test code = RBC) 3.31 4.70-6.10 [facility] CentennialZzzrlciEEZFPKAPHF4195-06-55 11:30:00 Test Item Value Reference Range Interpretation Comments Hgb (test code = Hgb) 9.2 14.0-18.0 [facility]ennialJzfdkvrEKVMYFCOPH0128-11-73 11:30:00 Test Item Value Reference Range Interpretation Comments MCV (test code = MCV) 85.0 80.0-94.0 [facility] CentennialZaeatxrRXDIHTDKUK6898-24-94 11:30:00 Test Item Value Reference Range Interpretation Comments MCH (test code = MCH) 27.8 pg 27.0-31.0 [facility] CentennialDipbslqOIUTMMJVBO3669-21-06 11:30:00 Test Item Value Reference Range Interpretation Comments Hct (test code = Hct) 28.2 42.0-54.0 [facility]ennialPsjdoxnKFLMDITAPB7218-23-89 11:30:00 Test Item Value Reference Range Interpretation Comments RDW (test code = RDW) 15.0 11.5-14.5 [facility] CentennialZkccytcIOSWBYTLLU2375-56-31 11:30:00 Test Item Value Reference Range Interpretation Comments Platelet (test code = Platelet) 370 133-450 [facility] CentennialJtvhmilSDELBMPHZL0297-86-83 11:30:00 Test Item Value Reference Range Interpretation Comments MPV (test code = MPV) 7.7 7.4-10.4 [facility]ennialJvpcvvhKHVKPVVVOY4810-03-34 11:30:00 Test Item Value Reference Range Interpretation Comments MCHC (test code = MCHC) 32.7 32.0-36.0 [facility] 11:30:00 Test Item Value Reference Range Interpretation Comments C-REACTIVE PROTEIN (test code = 20.1 C-REACTIVE PROTEIN) [facility]2016-12-23 09:08:00 Test Item Value Reference Range Interpretation Comments Globulin (test code = Globulin) 3.5 2.7-4.2 [facility]2016-12-23 09:08:00 Test Item Value Reference Range Interpretation Comments A/G Ratio (test code = A/G Ratio) 0.7 0.7-1.6 [facility]2016-12-23 09:08:00 Test Item Value Reference Range Interpretation Comments AGAP (test code = AGAP) 11.6 10.0-20.0 [facility]2016-12-23 09:08:00 Test Item Value Reference Range Interpretation Comments B/C Ratio (test code = B/C Ratio) 5 6-25 [place] 770946-12-23 09:08:00 Test Item Value Reference Range Interpretation Comments Albumin Lvl (test code = Albumin Lvl) 2.4 3.5-5.0 [facility]2016-12-23 09:08:00 Test Item Value Reference Range Interpretation Comments Calcium Lvl (test code = Calcium Lvl) 8.5 8.5-10.5 [facility]2016-12-23 09:08:00 Test Item Value Reference Range Interpretation Comments Total Protein (test code = Total 5.9 6.4-8.4 Protein) [facility]2016-12-23 09:08:00 Test Item Value Reference Range Interpretation Comments ALT (test code = ALT) 35 See_Comment [Auto mated message] The system which ge nerated this result transmit vasyl reference range : <=65. The reference range was not used to interpr et this result as minnie l/abnormal. [facility]2016-12-23 09:08:00 Test Item Value Reference Range Interpretation Comments Alk Phos (test code = Alk Phos) 120 39-136 [place] 770946-12-23 09:08:00 Test Item Value Reference Range Interpretation Comments AST (test code = AST) 18 See_Comment [Auto mated message] The system which ge nerated this result transmit vasyl reference range : <=37. The reference range was not used to interpr et this result as minnie l/abnormal. [facility]2016-12-23 09:08:00 Test Item Value Reference Range Interpretation Comments Glucose Lvl (test code = Glucose Lvl) 100 70-99 [facility]2016-12-23 09:08:00 Test Item Value Reference Range Interpretation Comments CO2 (test code = CO2) 27 24-32 [place] 770946-12-23 09:08:00 Test Item Value Reference Range Interpretation Comments Creatinine Lvl (test code = Creatinine 0.86 0.50-1.40 Lvl) [place] 770946-12-23 09:08:00 Test Item Value Reference Range Interpretation Comments Chloride Lvl (test code = Chloride Lvl) 106 95-109 [place] 770946-12-23 09:08:00 Test Item Value Reference Range Interpretation Comments BUN (test code = BUN) 4 7-22 [place] 770946-12-23 09:08:00 Test Item Value Reference Range Interpretation Comments Potassium Lvl (test code = Potassium 3.6 3.5-5.1 Lvl) [place] 770946-12-23 09:08:00 Test Item Value Reference Range Interpretation Comments Sodium Lvl (test code = Sodium Lvl) 141 135-145 [facility]2016-12-23 09:08:00 Test Item Value Reference Range Interpretation Comments eGFR (test code = eGFR) 86 [facility]2016-12-23 09:08:00 Test Item Value Reference Range Interpretation Comments Bili Total (test code = Bili Total) 0.4 0.2-1.3 [place] 182116-12-23 09:08:00 Test Item Value Reference Range Interpretation Comments MPV (test code = MPV) 7.7 7.4-10.4 [place] 182116-12-23 09:08:00 Test Item Value Reference Range Interpretation Comments Platelet (test code = Platelet) 357 133-450 [facility] CentennialAnnmdlrYANKMUHQUZ6862-28-08 09:08:00 Test Item Value Reference Range Interpretation Comments RBC (test code = RBC) 3.05 4.70-6.10 [place] 182116-12-23 09:08:00 Test Item Value Reference Range Interpretation Comments WBC (test code = WBC) 8.4 3.7-10.4 [facility] CentennialQogwbovQYEQSGBJBR9569-67-17 09:08:00 Test Item Value Reference Range Interpretation Comments Hgb (test code = Hgb) 8.6 14.0-18.0 [facility] CentennialBgsovneRSXZDSEFII9296-82-37 09:08:00 Test Item Value Reference Range Interpretation Comments Hct (test code = Hct) 26.4 42.0-54.0 [facility] CentennialPcekvczXDJXUEIQQE7287-12-16 09:08:00 Test Item Value Reference Range Interpretation Comments MCH (test code = MCH) 28.1 pg 27.0-31.0 [facility] CentennialMcxgntoKZAQSEFTKF3571-72-55 09:08:00 Test Item Value Reference Range Interpretation Comments MCV (test code = MCV) 86.3 80.0-94.0 [facility] CentennialZkfdfskNOXGQCZOFI6978-10-30 09:08:00 Test Item Value Reference Range Interpretation Comments RDW (test code = RDW) 14.8 11.5-14.5 [facility] CentennialLlbytkrNOVVOZZERW6203-22-00 09:08:00 Test Item Value Reference Range Interpretation Comments MCHC (test code = MCHC) 32.5 32.0-36.0 [facility] CentennialZzonlrdQVNKVMNYBK9039-97-63 09:08:00 Test Item Value Reference Range Interpretation Comments Segs-Bands # (test code = Segs-Bands #) 5.5 1.5-8.1 [facility] CentennialOmpsywsBOCHHVVVOV1953-73-52 09:08:00 Test Item Value Reference Range Interpretation Comments Basophils (test code = 0.8 See_Comment [Aut omated message] The Basophils) system which ge nerated this result tra nsmitted reference range : <=1.0. The reference r niko was not used to int erpret this result as normal/abnormal . [facility] CentennialJyzrgnrNHRNOPDKRE5235-85-34 09:08:00 Test Item Value Reference Range Interpretation Comments Monocytes # (test code 0.6 See_Comment [Aut omated message] The = Monocytes #) system which generated this result tra nsmitted reference range : <=0.8. The reference r niko was not used to int erpret this result as normal/abnormal . [facility] CentennialSpxvsjcMXTWBYSBQS5527-06-46 09:08:00 Test Item Value Reference Range Interpretation Comments Lymphocytes # (test code = Lymphocytes 2.1 1.0-5.5 #) [facility] CentennialZtrgxcxFMAHJXWSCC5897-18-32 09:08:00 Test Item Value Reference Range Interpretation Comments Basophils # (test code 0.1 See_Comment [Aut omated message] The = Basophils #) system which generated this result tra nsmitted reference range : <=0.2. The reference r niko was not used to int erpret this result as normal/abnormal . [facility] CentennialTcryyytJVCTURSPKP0256-68-23 09:08:00 Test Item Value Reference Range Interpretation Comments Eosinophils # (test code 0.1 See_Comment [A utomated message] The = Eosinophils #) system whic h generated this result tra nsmitted reference range : <=0.5. The reference r niko was not used to int erpret this result as normal/abnormal . [facility] CentennialYgxvrcoUYFYFCKHUF9398-77-72 09:08:00 Test Item Value Reference Range Interpretation Comments Lymphocytes (test code = Lymphocytes) 24.9 20.0-40.0 [facility] CentennialLikjnqaYTCZXKAVAG3629-09-62 09:08:00 Test Item Value Reference Range Interpretation Comments Segs (test code = Segs) 66.2 45.0-75.0 [facility] CentennialMbuttzwNWMVZHJTOA4109-63-56 09:08:00 Test Item Value Reference Range Interpretation Comments Eosinophils (test code = 1.3 See_Comment [A utomated message] The Eosinophils) system which ge nerated this result tra nsmitted reference range : <=4.0. The reference r niko was not used to int erpret this result as normal/abnormal . [facility] CentennialIniapznAFCTLTNJQR1124-74-76 09:08:00 Test Item Value Reference Range Interpretation Comments Monocytes (test code = Monocytes) 6.8 2.0-12.0 [facility] WDYCS7353-56-45 09:08:00 Test Item Value Reference Range Interpretation Comments Globulin (test code = Globulin) 3.5 2.7-4.2 [facility]2016-12-23 09:08:00 Test Item Value Reference Range Interpretation Comments A/G Ratio (test code = A/G Ratio) 0.7 0.7-1.6 [facility]2016-12-23 09:08:00 Test Item Value Reference Range Interpretation Comments AGAP (test code = AGAP) 11.6 10.0-20.0 [facility]2016-12-23 09:08:00 Test Item Value Reference Range Interpretation Comments B/C Ratio (test code = B/C Ratio) 5 6-25 [facility]2016-12-23 09:08:00 Test Item Value Reference Range Interpretation Comments Albumin Lvl (test code = Albumin Lvl) 2.4 3.5-5.0 [facility]2016-12-23 09:08:00 Test Item Value Reference Range Interpretation Comments Calcium Lvl (test code = Calcium Lvl) 8.5 8.5-10.5 [facility]2016-12-23 09:08:00 Test Item Value Reference Range Interpretation Comments Total Protein (test code = Total 5.9 6.4-8.4 Protein) [place] 770946-12-23 09:08:00 Test Item Value Reference Range Interpretation Comments ALT (test code = ALT) 35 See_Comment [Auto mated message] The system which ge nerated this result transmit vasyl reference range : <=65. The reference range was not used to interpr et this result as minnie l/abnormal. [facility]2016-12-23 09:08:00 Test Item Value Reference Range Interpretation Comments Alk Phos (test code = Alk Phos) 120 39-136 [facility]2016-12-23 09:08:00 Test Item Value Reference Range Interpretation Comments AST (test code = AST) 18 See_Comment [Auto mated message] The system which ge nerated this result transmit vasyl reference range : <=37. The reference range was not used to interpr et this result as minnie l/abnormal. [facility]2016-12-23 09:08:00 Test Item Value Reference Range Interpretation Comments Glucose Lvl (test code = Glucose Lvl) 100 70-99 [facility]2016-12-23 09:08:00 Test Item Value Reference Range Interpretation Comments CO2 (test code = CO2) 27 24-32 [place] 770946-12-23 09:08:00 Test Item Value Reference Range Interpretation Comments Creatinine Lvl (test code = Creatinine 0.86 0.50-1.40 Lvl) [facility]2016-12-23 09:08:00 Test Item Value Reference Range Interpretation Comments Chloride Lvl (test code = Chloride Lvl) 106 95-109 [facility]2016-12-23 09:08:00 Test Item Value Reference Range Interpretation Comments BUN (test code = BUN) 4 7-22 [facility]2016-12-23 09:08:00 Test Item Value Reference Range Interpretation Comments Potassium Lvl (test code = Potassium 3.6 3.5-5.1 Lvl) [facility]2016-12-23 09:08:00 Test Item Value Reference Range Interpretation Comments Sodium Lvl (test code = Sodium Lvl) 141 135-145 [facility]2016-12-23 09:08:00 Test Item Value Reference Range Interpretation Comments eGFR (test code = eGFR) 86 [facility]2016-12-23 09:08:00 Test Item Value Reference Range Interpretation Comments Bili Total (test code = Bili Total) 0.4 0.2-1.3 [facility] CentennialWinqnebJXJHWZZPQB1274-15-84 09:08:00 Test Item Value Reference Range Interpretation Comments MPV (test code = MPV) 7.7 7.4-10.4 [facility] CentennialFmhfxymNUGRXCVQVK7567-31-30 09:08:00 Test Item Value Reference Range Interpretation Comments Platelet (test code = Platelet) 357 133-450 [facility] CentennialJbtrkvrVLWGKCCKNG1859-01-94 09:08:00 Test Item Value Reference Range Interpretation Comments RBC (test code = RBC) 3.05 4.70-6.10 [facility] CentennialYmhmsqjXZBZRQBAPA6934-94-86 09:08:00 Test Item Value Reference Range Interpretation Comments WBC (test code = WBC) 8.4 3.7-10.4 [place] 182116-12-23 09:08:00 Test Item Value Reference Range Interpretation Comments Hgb (test code = Hgb) 8.6 14.0-18.0 [facility]ennialEkfhdagZWCLGTDQMR8951-64-98 09:08:00 Test Item Value Reference Range Interpretation Comments Hct (test code = Hct) 26.4 42.0-54.0 [facility] CentennialTiivwaqHOLIEYSGCM7080-37-20 09:08:00 Test Item Value Reference Range Interpretation Comments MCH (test code = MCH) 28.1 pg 27.0-31.0 [place] 182116-12-23 09:08:00 Test Item Value Reference Range Interpretation Comments MCV (test code = MCV) 86.3 80.0-94.0 [facility] CentennialUckwynvFBBCGAWMZI5929-55-85 09:08:00 Test Item Value Reference Range Interpretation Comments RDW (test code = RDW) 14.8 11.5-14.5 [facility] CentennialXqxczfcUJZYXXUJFY6897-90-81 09:08:00 Test Item Value Reference Range Interpretation Comments MCHC (test code = MCHC) 32.5 32.0-36.0 [place] 182116-12-23 09:08:00 Test Item Value Reference Range Interpretation Comments Segs-Bands # (test code = Segs-Bands #) 5.5 1.5-8.1 [facility]ennialOhvvfbsDIZHRKPYHX6475-15-28 09:08:00 Test Item Value Reference Range Interpretation Comments Basophils (test code = 0.8 See_Comment [Aut omated message] The Basophils) system which ge nerated this result tra nsmitted reference range : <=1.0. The reference r niko was not used to int erpret this result as normal/abnormal . [facility] CentennialYieuaavRPGVHYMLRC6003-43-53 09:08:00 Test Item Value Reference Range Interpretation Comments Monocytes # (test code 0.6 See_Comment [Aut omated message] The = Monocytes #) system which generated this result tra nsmitted reference range : <=0.8. The reference r niko was not used to int erpret this result as normal/abnormal . [facility] CentennialNfctnmsMRSJYKJNVH1184-46-20 09:08:00 Test Item Value Reference Range Interpretation Comments Lymphocytes # (test code = Lymphocytes 2.1 1.0-5.5 #) [facility] CentennialTvwcsylXLQICNFIOU7557-45-31 09:08:00 Test Item Value Reference Range Interpretation Comments Basophils # (test code 0.1 See_Comment [Aut omated message] The = Basophils #) system which generated this result tra nsmitted reference range : <=0.2. The reference r niko was not used to int erpret this result as normal/abnormal . [facility] CentennialJhaqcujSGZPWAZVFL2778-91-05 09:08:00 Test Item Value Reference Range Interpretation Comments Eosinophils # (test code 0.1 See_Comment [A utomated message] The = Eosinophils #) system whic h generated this result tra nsmitted reference range : <=0.5. The reference r niko was not used to int erpret this result as normal/abnormal . [facility] CentennialRgavqibXVPITXXEMH8183-47-65 09:08:00 Test Item Value Reference Range Interpretation Comments Lymphocytes (test code = Lymphocytes) 24.9 20.0-40.0 [facility] CentennialKgvyqwhMEPLRLHTDB6133-69-30 09:08:00 Test Item Value Reference Range Interpretation Comments Segs (test code = Segs) 66.2 45.0-75.0 [place] 182116-12-23 09:08:00 Test Item Value Reference Range Interpretation Comments Eosinophils (test code = 1.3 See_Comment [A utomated message] The Eosinophils) system which ge nerated this result tra nsmitted reference range : <=4.0. The reference r niko was not used to int erpret this result as normal/abnormal . [facility] CentennialNfxkbtvQIVHDSHMHJ0132-60-73 09:08:00 Test Item Value Reference Range Interpretation Comments Monocytes (test code = Monocytes) 6.8 2.0-12.0 [facility]2016-12-22 11:47:00 Test Item Value Reference Range Interpretation Comments Magnesium Lvl (test code = Magnesium 2.1 1.8-2.4 Lvl) [facility]2016-12-22 11:47:00 Test Item Value Reference Range Interpretation Comments Phosphorus (test code = Phosphorus) 3.4 2.5-4.5 [facility]2016-12-22 11:47:00 Test Item Value Reference Range Interpretation Comments eGFR (test code = eGFR) 87 [facility]2016-12-22 11:47:00 Test Item Value Reference Range Interpretation Comments Total Protein (test code = Total 5.9 6.4-8.4 Protein) [facility]2016-12-22 11:47:00 Test Item Value Reference Range Interpretation Comments AST (test code = AST) 19 See_Comment [Auto mated message] The system which ge nerated this result transmit vasyl reference range : <=37. The reference range was not used to interpr et this result as minnie l/abnormal. [facility]2016-12-22 11:47:00 Test Item Value Reference Range Interpretation Comments ALT (test code = ALT) 34 See_Comment [Auto mated message] The system which ge nerated this result transmit vasyl reference range : <=65. The reference range was not used to interpr et this result as minnie l/abnormal. [facility]2016-12-22 11:47:00 Test Item Value Reference Range Interpretation Comments Bili Total (test code = Bili Total) 0.3 0.2-1.3 [facility]2016-12-22 11:47:00 Test Item Value Reference Range Interpretation Comments Alk Phos (test code = Alk Phos) 121 39-136 [facility]2016-12-22 11:47:00 Test Item Value Reference Range Interpretation Comments Albumin Lvl (test code = Albumin Lvl) 2.4 3.5-5.0 [facility]2016-12-22 11:47:00 Test Item Value Reference Range Interpretation Comments BUN (test code = BUN) 5 7-22 [facility]2016-12-22 11:47:00 Test Item Value Reference Range Interpretation Comments Glucose Lvl (test code = Glucose Lvl) 119 70-99 [facility]2016-12-22 11:47:00 Test Item Value Reference Range Interpretation Comments Sodium Lvl (test code = Sodium Lvl) 141 135-145 [facility]2016-12-22 11:47:00 Test Item Value Reference Range Interpretation Comments Creatinine Lvl (test code = Creatinine 0.85 0.50-1.40 Lvl) [facility]2016-12-22 11:47:00 Test Item Value Reference Range Interpretation Comments Chloride Lvl (test code = Chloride Lvl) 108 95-109 [facility]2016-12-22 11:47:00 Test Item Value Reference Range Interpretation Comments Potassium Lvl (test code = Potassium 3.9 3.5-5.1 Lvl) [facility]2016-12-22 11:47:00 Test Item Value Reference Range Interpretation Comments Calcium Lvl (test code = Calcium Lvl) 8.4 8.5-10.5 [facility]2016-12-22 11:47:00 Test Item Value Reference Range Interpretation Comments CO2 (test code = CO2) 25 24-32 [facility]2016-12-22 11:47:00 Test Item Value Reference Range Interpretation Comments B/C Ratio (test code = B/C Ratio) 6 6-25 [facility]2016-12-22 11:47:00 Test Item Value Reference Range Interpretation Comments AGAP (test code = AGAP) 11.9 10.0-20.0 [facility]2016-12-22 11:47:00 Test Item Value Reference Range Interpretation Comments A/G Ratio (test code = A/G Ratio) 0.7 0.7-1.6 [facility]2016-12-22 11:47:00 Test Item Value Reference Range Interpretation Comments Globulin (test code = Globulin) 3.5 2.7-4.2 [facility]ennialWvnwlogSJPPTICPRO3253-39-13 11:47:00 Test Item Value Reference Range Interpretation Comments Eosinophils # (test code 0.1 See_Comment [A utomated message] The = Eosinophils #) system whic h generated this result tra nsmitted reference range : <=0.5. The reference r niko was not used to int erpret this result as normal/abnormal . [facility] CentennialUqvojizQJYJRJMENW5176-12-49 11:47:00 Test Item Value Reference Range Interpretation Comments Monocytes # (test code 0.6 See_Comment [Aut omated message] The = Monocytes #) system which generated this result tra nsmitted reference range : <=0.8. The reference r niko was not used to int erpret this result as normal/abnormal . [facility] CentennialQeegynyJLZMCNFZNB2681-81-40 11:47:00 Test Item Value Reference Range Interpretation Comments Basophils # (test code 0.1 See_Comment [Aut omated message] The = Basophils #) system which generated this result tra nsmitted reference range : <=0.2. The reference r niko was not used to int erpret this result as normal/abnormal . [facility] [facility]ennialEnghrdwNEJHEGHKJM9497-03-04 11:47:00 Test Item Value Reference Range Interpretation Comments Segs (test code = Segs) 65.0 45.0-75.0 [place] 182116-12-22 11:47:00 Test Item Value Reference Range Interpretation Comments Lymphocytes # (test code = Lymphocytes 1.9 1.0-5.5 #) [facility] CentennialRvdmjlkKXAAPUNOSE1210-07-89 11:47:00 Test Item Value Reference Range Interpretation Comments Segs-Bands # (test code = Segs-Bands #) 4.9 1.5-8.1 [facility] CentennialUuvmsuaZPHONQMAVO0571-97-15 11:47:00 Test Item Value Reference Range Interpretation Comments Basophils (test code = 1.0 See_Comment [Aut omated message] The Basophils) system which ge nerated this result tra nsmitted reference range : <=1.0. The reference r niko was not used to int erpret this result as normal/abnormal . [facility] CentennialTrnkqfyAGOKDNBXXN7064-55-93 11:47:00 Test Item Value Reference Range Interpretation Comments Monocytes (test code = Monocytes) 7.3 2.0-12.0 [facility] CentennialOqnznjsKLSNGUPOJW7628-18-37 11:47:00 Test Item Value Reference Range Interpretation Comments Lymphocytes (test code = Lymphocytes) 25.3 20.0-40.0 [facility] CentennialUrkxvkzBYNICSWJTJ1232-00-10 11:47:00 Test Item Value Reference Range Interpretation Comments Eosinophils (test code = 1.4 See_Comment [A utomated message] The Eosinophils) system which ge nerated this result tra nsmitted reference range : <=4.0. The reference r niko was not used to int erpret this result as normal/abnormal . [facility] CentennialSdzgoldZOHLOCQTVL6066-07-49 11:47:00 Test Item Value Reference Range Interpretation Comments Platelet (test code = Platelet) 338 133-450 [facility] CentennialVsgqthsTTIPGFNAOV4370-02-50 11:47:00 Test Item Value Reference Range Interpretation Comments RDW (test code = RDW) 14.6 11.5-14.5 [facility] CentennialNxqqarfIBNUAPAIZC4389-87-72 11:47:00 Test Item Value Reference Range Interpretation Comments MPV (test code = MPV) 7.7 7.4-10.4 [facility] CentennialMyyemeuYLQZUMIRRE5124-79-04 11:47:00 Test Item Value Reference Range Interpretation Comments MCV (test code = MCV) 89.8 80.0-94.0 [facility] CentennialXveqwqaTXIHOCBKEY5297-25-61 11:47:00 Test Item Value Reference Range Interpretation Comments MCH (test code = MCH) 27.7 pg 27.0-31.0 [facility] CentennialLitmhyxBIUTCYNEEM1863-31-53 11:47:00 Test Item Value Reference Range Interpretation Comments MCHC (test code = MCHC) 30.9 32.0-36.0 [facility] CentennialYglqqllHVDMHXLVXZ6129-67-46 11:47:00 Test Item Value Reference Range Interpretation Comments Hgb (test code = Hgb) 8.6 14.0-18.0 [place] [address]-12-22 11:47:00 Test Item Value Reference Range Interpretation Comments RBC (test code = RBC) 3.09 4.70-6.10 [place] [address]-12-22 11:47:00 Test Item Value Reference Range Interpretation Comments WBC (test code = WBC) 7.6 3.7-10.4 [place] 182116-12-22 11:47:00 Test Item Value Reference Range Interpretation Comments Hct (test code = Hct) 27.8 42.0-54.0 [facility]2016-12-22 11:47:00 Test Item Value Reference Range Interpretation Comments Magnesium Lvl (test code = Magnesium 2.1 1.8-2.4 Lvl) [place] 770946-12-22 11:47:00 Test Item Value Reference Range Interpretation Comments Phosphorus (test code = Phosphorus) 3.4 2.5-4.5 [place] 770946-12-22 11:47:00 Test Item Value Reference Range Interpretation Comments eGFR (test code = eGFR) 87 [facility]2016-12-22 11:47:00 Test Item Value Reference Range Interpretation Comments Total Protein (test code = Total 5.9 6.4-8.4 Protein) [facility]2016-12-22 11:47:00 Test Item Value Reference Range Interpretation Comments AST (test code = AST) 19 See_Comment [Auto mated message] The system which ge nerated this result transmit vasyl reference range : <=37. The reference range was not used to interpr et this result as minnie l/abnormal. [facility]2016-12-22 11:47:00 Test Item Value Reference Range Interpretation Comments ALT (test code = ALT) 34 See_Comment [Auto mated message] The system which ge nerated this result transmit vasyl reference range : <=65. The reference range was not used to interpr et this result as minnie l/abnormal. [place] 770946-12-22 11:47:00 Test Item Value Reference Range Interpretation Comments Bili Total (test code = Bili Total) 0.3 0.2-1.3 [facility]2016-12-22 11:47:00 Test Item Value Reference Range Interpretation Comments Alk Phos (test code = Alk Phos) 121 39-136 [facility]2016-12-22 11:47:00 Test Item Value Reference Range Interpretation Comments Albumin Lvl (test code = Albumin Lvl) 2.4 3.5-5.0 [facility]2016-12-22 11:47:00 Test Item Value Reference Range Interpretation Comments BUN (test code = BUN) 5 7-22 [facility]2016-12-22 11:47:00 Test Item Value Reference Range Interpretation Comments Glucose Lvl (test code = Glucose Lvl) 119 70-99 [facility]2016-12-22 11:47:00 Test Item Value Reference Range Interpretation Comments Sodium Lvl (test code = Sodium Lvl) 141 135-145 [facility]2016-12-22 11:47:00 Test Item Value Reference Range Interpretation Comments Creatinine Lvl (test code = Creatinine 0.85 0.50-1.40 Lvl) [facility]2016-12-22 11:47:00 Test Item Value Reference Range Interpretation Comments Chloride Lvl (test code = Chloride Lvl) 108 95-109 [facility]2016-12-22 11:47:00 Test Item Value Reference Range Interpretation Comments Potassium Lvl (test code = Potassium 3.9 3.5-5.1 Lvl) [facility]2016-12-22 11:47:00 Test Item Value Reference Range Interpretation Comments Calcium Lvl (test code = Calcium Lvl) 8.4 8.5-10.5 [facility]2016-12-22 11:47:00 Test Item Value Reference Range Interpretation Comments CO2 (test code = CO2) 25 -32 [facility]2016-12-22 11:47:00 Test Item Value Reference Range Interpretation Comments B/C Ratio (test code = B/C Ratio) 6 6-25 [facility]2016-12-22 11:47:00 Test Item Value Reference Range Interpretation Comments AGAP (test code = AGAP) 11.9 10.0-20.0 [facility]2016-12-22 11:47:00 Test Item Value Reference Range Interpretation Comments A/G Ratio (test code = A/G Ratio) 0.7 0.7-1.6 [facility]2016-12-22 11:47:00 Test Item Value Reference Range Interpretation Comments Globulin (test code = Globulin) 3.5 2.7-4.2 [facility] CentennialFpyronhPXJCVFYPVL2293-76-70 11:47:00 Test Item Value Reference Range Interpretation Comments Eosinophils # (test code 0.1 See_Comment [A utomated message] The = Eosinophils #) system whic h generated this result tra nsmitted reference range : <=0.5. The reference r niko was not used to int erpret this result as normal/abnormal . [facility] CentennialXbvluriEDQPXJTINL0679-03-89 11:47:00 Test Item Value Reference Range Interpretation Comments Monocytes # (test code 0.6 See_Comment [Aut omated message] The = Monocytes #) system which generated this result tra nsmitted reference range : <=0.8. The reference r niko was not used to int erpret this result as normal/abnormal . [facility] CentennialCzkvkwzMRYTRQPADD5836-47-60 11:47:00 Test Item Value Reference Range Interpretation Comments Basophils # (test code 0.1 See_Comment [Aut omated message] The = Basophils #) system which generated this result tra nsmitted reference range : <=0.2. The reference r niko was not used to int erpret this result as normal/abnormal . [facility] CentennialJsfczezPEMJOBVTIL5346-34-62 11:47:00 Test Item Value Reference Range Interpretation Comments Segs (test code = Segs) 65.0 45.0-75.0 [facility] CentennialZcpegshLBKHXYAELF6829-03-80 11:47:00 Test Item Value Reference Range Interpretation Comments Lymphocytes # (test code = Lymphocytes 1.9 1.0-5.5 #) [facility] CentennialBnonzozVQOGDOHPOA7464-81-46 11:47:00 Test Item Value Reference Range Interpretation Comments Segs-Bands # (test code = Segs-Bands #) 4.9 1.5-8.1 [facility] CentennialMnsndazVTAZVJZYWZ1869-60-01 11:47:00 Test Item Value Reference Range Interpretation Comments Basophils (test code = 1.0 See_Comment [Aut omated message] The Basophils) system which ge nerated this result tra nsmitted reference range : <=1.0. The reference r niko was not used to int erpret this result as normal/abnormal . [facility] CentennialKnlpoclFLPXJDVUWF0748-06-48 11:47:00 Test Item Value Reference Range Interpretation Comments Monocytes (test code = Monocytes) 7.3 2.0-12.0 [facility] CentennialNkmtmxmVHORVJFXQT2150-65-18 11:47:00 Test Item Value Reference Range Interpretation Comments Lymphocytes (test code = Lymphocytes) 25.3 20.0-40.0 [facility] CentennialDolxjkjKUUNQVINMA8853-39-44 11:47:00 Test Item Value Reference Range Interpretation Comments Eosinophils (test code = 1.4 See_Comment [A utomated message] The Eosinophils) system which ge nerated this result tra nsmitted reference range : <=4.0. The reference r niko was not used to int erpret this result as normal/abnormal . [facility] CentennialKkvxhydSHTYTBEKUO3206-25-43 11:47:00 Test Item Value Reference Range Interpretation Comments Platelet (test code = Platelet) 338 133-450 [facility] CentennialKmpytgiPOJQOUULVX5660-53-38 11:47:00 Test Item Value Reference Range Interpretation Comments RDW (test code = RDW) 14.6 11.5-14.5 [facility] CentennialMnmsawkMJEUMSMKIC0643-35-02 11:47:00 Test Item Value Reference Range Interpretation Comments MPV (test code = MPV) 7.7 7.4-10.4 [facility] CentennialQklwucjNJHCMTHDRV6819-02-77 11:47:00 Test Item Value Reference Range Interpretation Comments MCV (test code = MCV) 89.8 80.0-94.0 [facility] CentennialKjbnczcHXRDWVXXWN7987-06-61 11:47:00 Test Item Value Reference Range Interpretation Comments MCH (test code = MCH) 27.7 pg 27.0-31.0 [facility] CentennialYxrhgzgFAXSMHSSPC0046-11-83 11:47:00 Test Item Value Reference Range Interpretation Comments MCHC (test code = MCHC) 30.9 32.0-36.0 [facility] CentennialSbnuoyzSRYTHFOVYH4932-63-39 11:47:00 Test Item Value Reference Range Interpretation Comments Hgb (test code = Hgb) 8.6 14.0-18.0 [facility] CentennialErxgqvqKJDMAWDOXM1190-81-03 11:47:00 Test Item Value Reference Range Interpretation Comments RBC (test code = RBC) 3.09 4.70-6.10 [facility] CentennialTmjhfquITZYAWXEDI8934-44-90 11:47:00 Test Item Value Reference Range Interpretation Comments WBC (test code = WBC) 7.6 3.7-10.4 [facility] CentennialMhdwkfpRDDPADYNIE9325-94-11 11:47:00 Test Item Value Reference Range Interpretation Comments Hct (test code = Hct) 27.8 42.0-54.0 [facility]2016-12-21 10:06:00 Test Item Value Reference Range Interpretation Comments Phosphorus (test code = Phosphorus) 3.1 2.5-4.5 [facility]2016-12-21 10:06:00 Test Item Value Reference Range Interpretation Comments Magnesium Lvl (test code = Magnesium 2.3 1.8-2.4 Lvl) [facility]2016-12-21 10:06:00 Test Item Value Reference Range Interpretation Comments AST (test code = AST) 20 See_Comment [Auto mated message] The system which ge nerated this result transmit vasyl reference range : <=37. The reference range was not used to interpr et this result as minnie l/abnormal. [facility]2016-12-21 10:06:00 Test Item Value Reference Range Interpretation Comments Alk Phos (test code = Alk Phos) 108 39-136 [facility]2016-12-21 10:06:00 Test Item Value Reference Range Interpretation Comments Bili Total (test code = Bili Total) 0.4 0.2-1.3 [facility]2016-12-21 10:06:00 Test Item Value Reference Range Interpretation Comments Albumin Lvl (test code = Albumin Lvl) 2.2 3.5-5.0 [facility]2016-12-21 10:06:00 Test Item Value Reference Range Interpretation Comments Total Protein (test code = Total 5.6 6.4-8.4 Protein) [facility]2016-12-21 10:06:00 Test Item Value Reference Range Interpretation Comments Calcium Lvl (test code = Calcium Lvl) 8.2 8.5-10.5 [facility]2016-12-21 10:06:00 Test Item Value Reference Range Interpretation Comments ALT (test code = ALT) 40 See_Comment [Auto mated message] The system which ge nerated this result transmit vasyl reference range : <=65. The reference range was not used to interpr et this result as minnie l/abnormal. [facility]2016-12-21 10:06:00 Test Item Value Reference Range Interpretation Comments eGFR (test code = eGFR) 87 [facility]2016-12-21 10:06:00 Test Item Value Reference Range Interpretation Comments Creatinine Lvl (test code = Creatinine 0.84 0.50-1.40 Lvl) [facility]2016-12-21 10:06:00 Test Item Value Reference Range Interpretation Comments Sodium Lvl (test code = Sodium Lvl) 140 135-145 [facility]2016-12-21 10:06:00 Test Item Value Reference Range Interpretation Comments Glucose Lvl (test code = Glucose Lvl) 125 70-99 [facility]2016-12-21 10:06:00 Test Item Value Reference Range Interpretation Comments Potassium Lvl (test code = Potassium 4.2 3.5-5.1 Lvl) [facility]2016-12-21 10:06:00 Test Item Value Reference Range Interpretation Comments Chloride Lvl (test code = Chloride Lvl) 106 95-109 [facility]2016-12-21 10:06:00 Test Item Value Reference Range Interpretation Comments BUN (test code = BUN) 10 7-22 [facility]2016-12-21 10:06:00 Test Item Value Reference Range Interpretation Comments CO2 (test code = CO2) 26 24-32 [facility]2016-12-21 10:06:00 Test Item Value Reference Range Interpretation Comments AGAP (test code = AGAP) 12.2 10.0-20.0 [facility]2016-12-21 10:06:00 Test Item Value Reference Range Interpretation Comments A/G Ratio (test code = A/G Ratio) 0.6 0.7-1.6 [facility]2016-12-21 10:06:00 Test Item Value Reference Range Interpretation Comments B/C Ratio (test code = B/C Ratio) 12 6-25 [place] 770946-12-21 10:06:00 Test Item Value Reference Range Interpretation Comments Globulin (test code = Globulin) 3.4 2.7-4.2 [facility] CentennialUzkterbOPVFAVCEMD5648-78-97 10:06:00 Test Item Value Reference Range Interpretation Comments Eosinophils (test code = 1.6 See_Comment [A utomated message] The Eosinophils) system which ge nerated this result tra nsmitted reference range : <=4.0. The reference r niko was not used to int erpret this result as normal/abnormal . [facility] CentennialBxuclalGEZIKGIHTY4651-41-75 10:06:00 Test Item Value Reference Range Interpretation Comments Monocytes (test code = Monocytes) 6.6 2.0-12.0 [facility] CentennialXmtzuwbREWGUFNJFQ2557-89-09 10:06:00 Test Item Value Reference Range Interpretation Comments Lymphocytes (test code = Lymphocytes) 22.1 20.0-40.0 [facility] CentennialTklriuiQJCRHUPVPP7507-70-28 10:06:00 Test Item Value Reference Range Interpretation Comments Segs (test code = Segs) 68.8 45.0-75.0 [facility] CentennialWbtlpbrGZZDRHUQHT1316-58-72 10:06:00 Test Item Value Reference Range Interpretation Comments Monocytes # (test code 0.5 See_Comment [Aut omated message] The = Monocytes #) system which generated this result tra nsmitted reference range : <=0.8. The reference r niko was not used to int erpret this result as normal/abnormal . [facility] CentennialZdikxqeQDQWYYZDLR0364-24-90 10:06:00 Test Item Value Reference Range Interpretation Comments Basophils # (test code 0.1 See_Comment [Aut omated message] The = Basophils #) system which generated this result tra nsmitted reference range : <=0.2. The reference r niko was not used to int erpret this result as normal/abnormal . [facility] CentennialLcwizpaXLSDJBAZER5375-30-36 10:06:00 Test Item Value Reference Range Interpretation Comments Eosinophils # (test code 0.1 See_Comment [A utomated message] The = Eosinophils #) system whic h generated this result tra nsmitted reference range : <=0.5. The reference r niko was not used to int erpret this result as normal/abnormal . [facility] CentennialJbmuduwSGKAPFUSOS1150-35-49 10:06:00 Test Item Value Reference Range Interpretation Comments Segs-Bands # (test code = Segs-Bands #) 5.5 1.5-8.1 [facility] CentennialRokvwslHORVCTJHLD7530-13-25 10:06:00 Test Item Value Reference Range Interpretation Comments Basophils (test code = 0.9 See_Comment [Aut omated message] The Basophils) system which ge nerated this result tra nsmitted reference range : <=1.0. The reference r niko was not used to int erpret this result as normal/abnormal . [facility] CentennialHhmsvjzXMRGTXRDGN8253-96-20 10:06:00 Test Item Value Reference Range Interpretation Comments Lymphocytes # (test code = Lymphocytes 1.8 1.0-5.5 #) [facility] CentennialPhejfxrVHIJNDRKWN8397-13-80 10:06:00 Test Item Value Reference Range Interpretation Comments Hct (test code = Hct) 23.5 42.0-54.0 [facility] CentennialFwepyxbTLEPQMBMNV5670-10-05 10:06:00 Test Item Value Reference Range Interpretation Comments RBC (test code = RBC) 2.73 4.70-6.10 [facility] CentennialXeloncqULRYUYCUAT3168-76-40 10:06:00 Test Item Value Reference Range Interpretation Comments Hgb (test code = Hgb) 7.6 14.0-18.0 [facility] CentennialLhidcdpUHBUQGTJGT1090-40-68 10:06:00 Test Item Value Reference Range Interpretation Comments RDW (test code = RDW) 14.9 11.5-14.5 [facility] CentennialTfpjhtmQZAMFMKILN5129-06-58 10:06:00 Test Item Value Reference Range Interpretation Comments Platelet (test code = Platelet) 285 133-450 [facility] CentennialIpvvodtDHJJEODPRE9539-61-35 10:06:00 Test Item Value Reference Range Interpretation Comments MPV (test code = MPV) 8.0 7.4-10.4 [facility] CentennialVzweukcMFTLLOUGWH9030-31-71 10:06:00 Test Item Value Reference Range Interpretation Comments WBC (test code = WBC) 7.9 3.7-10.4 [facility] CentennialDytwmqvRNYVQOENIN7955-86-48 10:06:00 Test Item Value Reference Range Interpretation Comments MCHC (test code = MCHC) 32.4 32.0-36.0 [facility] CentennialKcvdqpqJQEMHWYNZE5422-57-09 10:06:00 Test Item Value Reference Range Interpretation Comments MCV (test code = MCV) 86.0 80.0-94.0 [facility]jpuixcIDSVGNKFHT9998-45-22 10:06:00 Test Item Value Reference Range Interpretation Comments MCH (test code = MCH) 27.8 pg 27.0-31.0 [facility]2016-12-21 10:06:00 Test Item Value Reference Range Interpretation Comments Phosphorus (test code = Phosphorus) 3.1 2.5-4.5 [facility]2016-12-21 10:06:00 Test Item Value Reference Range Interpretation Comments Magnesium Lvl (test code = Magnesium 2.3 1.8-2.4 Lvl) [facility]2016-12-21 10:06:00 Test Item Value Reference Range Interpretation Comments AST (test code = AST) 20 See_Comment [Auto mated message] The system which ge nerated this result transmit vasyl reference range : <=37. The reference range was not used to interpr et this result as minnie l/abnormal. [facility]2016-12-21 10:06:00 Test Item Value Reference Range Interpretation Comments Alk Phos (test code = Alk Phos) 108 39-136 [facility]2016-12-21 10:06:00 Test Item Value Reference Range Interpretation Comments Bili Total (test code = Bili Total) 0.4 0.2-1.3 [facility]2016-12-21 10:06:00 Test Item Value Reference Range Interpretation Comments Albumin Lvl (test code = Albumin Lvl) 2.2 3.5-5.0 [facility]2016-12-21 10:06:00 Test Item Value Reference Range Interpretation Comments Total Protein (test code = Total 5.6 6.4-8.4 Protein) [facility]2016-12-21 10:06:00 Test Item Value Reference Range Interpretation Comments Calcium Lvl (test code = Calcium Lvl) 8.2 8.5-10.5 [facility]2016-12-21 10:06:00 Test Item Value Reference Range Interpretation Comments ALT (test code = ALT) 40 See_Comment [Auto mated message] The system which ge nerated this result transmit vasyl reference range : <=65. The reference range was not used to interpr et this result as minnie l/abnormal. [facility]2016-12-21 10:06:00 Test Item Value Reference Range Interpretation Comments eGFR (test code = eGFR) 87 [facility]2016-12-21 10:06:00 Test Item Value Reference Range Interpretation Comments Creatinine Lvl (test code = Creatinine 0.84 0.50-1.40 Lvl) [facility]2016-12-21 10:06:00 Test Item Value Reference Range Interpretation Comments Sodium Lvl (test code = Sodium Lvl) 140 135-145 [facility]2016-12-21 10:06:00 Test Item Value Reference Range Interpretation Comments Glucose Lvl (test code = Glucose Lvl) 125 70-99 [facility]2016-12-21 10:06:00 Test Item Value Reference Range Interpretation Comments Potassium Lvl (test code = Potassium 4.2 3.5-5.1 Lvl) [facility]2016-12-21 10:06:00 Test Item Value Reference Range Interpretation Comments Chloride Lvl (test code = Chloride Lvl) 106 95-109 [facility]2016-12-21 10:06:00 Test Item Value Reference Range Interpretation Comments BUN (test code = BUN) 10 - [facility]2016-12-21 10:06:00 Test Item Value Reference Range Interpretation Comments CO2 (test code = CO2) 26 24-32 [facility]2016-12-21 10:06:00 Test Item Value Reference Range Interpretation Comments AGAP (test code = AGAP) 12.2 10.0-20.0 [facility]2016-12-21 10:06:00 Test Item Value Reference Range Interpretation Comments A/G Ratio (test code = A/G Ratio) 0.6 0.7-1.6 [facility]2016-12-21 10:06:00 Test Item Value Reference Range Interpretation Comments B/C Ratio (test code = B/C Ratio) 12 -25 [facility] [facility]-21 10:06:00 Test Item Value Reference Range Interpretation Comments Globulin (test code = Globulin) 3.4 2.7-4.2 [facility]ennialZqntozrYJNQMERQWN0922-68-03 10:06:00 Test Item Value Reference Range Interpretation Comments Eosinophils (test code = 1.6 See_Comment [A utomated message] The Eosinophils) system which ge nerated this result tra nsmitted reference range : <=4.0. The reference r niko was not used to int erpret this result as normal/abnormal . [facility]ennialOtfatwrRLEBSJESVE0093-31-14 10:06:00 Test Item Value Reference Range Interpretation Comments Monocytes (test code = Monocytes) 6.6 2.0-12.0 [facility] CentennialIrubjccUJCSHODFBG7527-10-40 10:06:00 Test Item Value Reference Range Interpretation Comments Lymphocytes (test code = Lymphocytes) 22.1 20.0-40.0 [facility]ennialOzdxugrZJBDXHHXSD4246-55-30 10:06:00 Test Item Value Reference Range Interpretation Comments Segs (test code = Segs) 68.8 45.0-75.0 [facility]ennialAgnwexaICRHAALAJD7838-74-59 10:06:00 Test Item Value Reference Range Interpretation Comments Monocytes # (test code 0.5 See_Comment [Aut omated message] The = Monocytes #) system which generated this result tra nsmitted reference range : <=0.8. The reference r niko was not used to int erpret this result as normal/abnormal . [facility] CentennialZqflbmzHIGLDOFSOM2166-09-64 10:06:00 Test Item Value Reference Range Interpretation Comments Basophils # (test code 0.1 See_Comment [Aut omated message] The = Basophils #) system which generated this result tra nsmitted reference range : <=0.2. The reference r niko was not used to int erpret this result as normal/abnormal . [facility] CentennialVbgnejnPKJUTBLUDJ2215-12-73 10:06:00 Test Item Value Reference Range Interpretation Comments Eosinophils # (test code 0.1 See_Comment [A utomated message] The = Eosinophils #) system whic h generated this result tra nsmitted reference range : <=0.5. The reference r niko was not used to int erpret this result as normal/abnormal . [facility] CentennialZzwwbcuYISITOFFVS3201-33-94 10:06:00 Test Item Value Reference Range Interpretation Comments Segs-Bands # (test code = Segs-Bands #) 5.5 1.5-8.1 [facility] CentennialShezilvAZREUPHOQP9244-16-76 10:06:00 Test Item Value Reference Range Interpretation Comments Basophils (test code = 0.9 See_Comment [Aut omated message] The Basophils) system which ge nerated this result tra nsmitted reference range : <=1.0. The reference r niko was not used to int erpret this result as normal/abnormal . [facility]ennialNymeeyjJKFFZDBCTU2672-35-50 10:06:00 Test Item Value Reference Range Interpretation Comments Lymphocytes # (test code = Lymphocytes 1.8 1.0-5.5 #) [facility]ennialAqjijchPWCJMYRHQD5430-04-69 10:06:00 Test Item Value Reference Range Interpretation Comments Hct (test code = Hct) 23.5 42.0-54.0 [facility] CentennialRlbuseaEHEXFQNDLE3112-79-54 10:06:00 Test Item Value Reference Range Interpretation Comments RBC (test code = RBC) 2.73 4.70-6.10 [facility] CentennialCdtaszzXPEQPUPBCA4137-86-76 10:06:00 Test Item Value Reference Range Interpretation Comments Hgb (test code = Hgb) 7.6 14.0-18.0 [facility] CentennialZeypqtxVSCJARJOTA0731-66-01 10:06:00 Test Item Value Reference Range Interpretation Comments RDW (test code = RDW) 14.9 11.5-14.5 [facility] CentennialOrgggecGSETFZEOKV9600-40-44 10:06:00 Test Item Value Reference Range Interpretation Comments Platelet (test code = Platelet) 285 133-450 [facility] CentennialRbgoigmQWPQUHQKDD7573-13-79 10:06:00 Test Item Value Reference Range Interpretation Comments MPV (test code = MPV) 8.0 7.4-10.4 [facility] CentennialVirmhbrWCLXSZZGRD2075-34-31 10:06:00 Test Item Value Reference Range Interpretation Comments WBC (test code = WBC) 7.9 3.7-10.4 [facility] CentennialEniqwifWGYJCEOICA0661-96-58 10:06:00 Test Item Value Reference Range Interpretation Comments MCHC (test code = MCHC) 32.4 32.0-36.0 [facility] CentennialAxhrynbEUKOHVVFTC7164-07-64 10:06:00 Test Item Value Reference Range Interpretation Comments MCV (test code = MCV) 86.0 80.0-94.0 [facility] CentennialQmaqlctERNVPLKCYS4526-32-23 10:06:00 Test Item Value Reference Range Interpretation Comments MCH (test code = MCH) 27.8 pg 27.0-31.0 [facility]2016-12-20 10:52:00 Test Item Value Reference Range Interpretation Comments Magnesium Lvl (test code = Magnesium 1.9 1.8-2.4 Lvl) [facility]2016-12-20 10:52:00 Test Item Value Reference Range Interpretation Comments Phosphorus (test code = Phosphorus) 3.2 2.5-4.5 [facility]2016-12-20 10:52:00 Test Item Value Reference Range Interpretation Comments Magnesium Lvl (test code = Magnesium 1.9 1.8-2.4 Lvl) [facility]2016-12-20 10:52:00 Test Item Value Reference Range Interpretation Comments Phosphorus (test code = Phosphorus) 3.2 2.5-4.5 [facility]xtWNUMJPYOEL9519-40-26 23:24:00 Test Item Value Reference Range Interpretation Comments Aspergillus fumigatus (test code = Negative Aspergillus fumigatus) [facility]FgbvrgwRPDKROFQMD7370-98-67 23:24:00 Test Item Value Reference Range Interpretation Comments Aspergillus flavus (test code = Negative Aspergillus flavus) [facility] HospitalPrgupgsJWUZGPASVE3138-54-90 23:24:00 Test Item Value Reference Range Interpretation Comments Aspergillus niger (test code = Negative Aspergillus niger) [facility] HospitalVbwglywGCCSQOVZUR8162-95-21 23:24:00 Test Item Value Reference Range Interpretation Comments Blastomyces Ab (test code = Negative Blastomyces Ab) [facility]GasjotgWQKCGEBKGZ7257-10-99 23:24:00 Test Item Value Reference Range Interpretation Comments Coccidiodes Ab by ID (test code = Negative Coccidiodes Ab by ID) [facility] HospitalHgvziupDFKUVDRRTF9921-28-33 23:24:00 Test Item Value Reference Range Interpretation Comments Histoplasma Ab (test code = Negative Histoplasma Ab) [facility] HospitalDnbbtsaGVZFSKUHLN1223-39-82 23:24:00 Test Item Value Reference Range Interpretation Comments Aspergillus fumigatus (test code = Negative Aspergillus fumigatus) [facility] HospitalWruapgjJSELDUMMYH6757-01-71 23:24:00 Test Item Value Reference Range Interpretation Comments Aspergillus flavus (test code = Negative Aspergillus flavus) [place] [id number] 23:24:00 Test Item Value Reference Range Interpretation Comments Aspergillus niger (test code = Negative Aspergillus niger) [facility] HospitalDrisybfNKCNKALJWB5397-63-27 23:24:00 Test Item Value Reference Range Interpretation Comments Blastomyces Ab (test code = Negative Blastomyces Ab) [facility]HzdosbhTVRKTZHEGH9210-14-82 23:24:00 Test Item Value Reference Range Interpretation Comments Coccidiodes Ab by ID (test code = Negative Coccidiodes Ab by ID) [facility] SystemJiybziyTTCQFITKZT3179-99-40 23:24:00 Test Item Value Reference Range Interpretation Comments Histoplasma Ab (test code = Negative Histoplasma Ab) [facility] AND [id number] 17:44:00 Test Item Value Reference Range Interpretation Comments UA Sq Epi (test code = UA Sq Epi) None Seen [facility] AND [id number] 17:44:00 Test Item Value Reference Range Interpretation Comments UA Urobilinogen (test code = UA <=1.0 mg/dL 0.1-1.0 Urobilinogen) [facility] AND [id number] 17:44:00 Test Item Value Reference Range Interpretation Comments UA Mucus (test code = UA Mucus) Few /LPF [facility] AND [id number] 17:44:00 Test Item Value Reference Range Interpretation Comments UA WBC (test code = 2 See_Comment [Automa vasyl message] The UA WBC) system which ge nerated this result transmit vasyl reference range : <=5. The reference range was not used to interpr et this result as minnie l/abnormal. [facility] AND [id number] 17:44:00 Test Item Value Reference Range Interpretation Comments UA Leuk Est (test Negative (03/13/16 11:44 code = UA Leuk Est) AM) [facility] AND [id number] 17:44:00 Test Item Value Reference Range Interpretation Comments UA RBC (test code = no gt See_Comment [Automa vasyl message] The UA RBC) system which ge nerated this result transmit vasyl reference range : <=2. The reference range was not used to interpr et this result as minnie l/abnormal. [facility] AND [id number] 17:44:00 Test Item Value Reference Range Interpretation Comments UA Nitrite (test code Negative (03/13/16 = UA Nitrite) 11:44 AM) [facility] AND [id number] 17:44:00 Test Item Value Reference Range Interpretation Comments UA Blood (test code = Negative (03/13/16 11:44 UA Blood) AM) [facility] AND [id number] 17:44:00 Test Item Value Reference Range Interpretation Comments UA Spec Grav (test code = UA Spec Grav) 1.008 [facility] AND [id number] 17:44:00 Test Item Value Reference Range Interpretation Comments UA Turbidity (test code = Clear (03/13/16 UA Turbidity) 11:44 AM) [facility] AND [id number] 17:44:00 Test Item Value Reference Range Interpretation Comments UA pH (test code = UA pH) 6.5 5.0-8.0 [facility] AND [id number] 17:44:00 Test Item Value Reference Range Interpretation Comments UA Color (test code = Yellow *NA*(03/13/16 UA Color) 11:44 AM) [facility] AND [id number] 17:44:00 Test Item Value Reference Range Interpretation Comments UA Ketones (test code = UA Negative mg/dL Ketones) [facility] AND [id number] 17:44:00 Test Item Value Reference Range Interpretation Comments UA Bili (test code = Negative *NA*(03/13/16 UA Bili) 11:44 AM) [facility] AND [id number] 17:44:00 Test Item Value Reference Range Interpretation Comments UA Protein (test code = UA Negative mg/dL Protein) [facility] AND [id number] 17:44:00 Test Item Value Reference Range Interpretation Comments UA Glucose (test code = UA Negative mg/dL Glucose) [facility] AND [id number] 17:44:00 Test Item Value Reference Range Interpretation Comments UA Sq Epi (test code = UA Sq Epi) None Seen [facility] AND [id number] 17:44:00 Test Item Value Reference Range Interpretation Comments UA Urobilinogen (test code = UA <=1.0 mg/dL 0.1-1.0 Urobilinogen) [facility] AND [id number] 17:44:00 Test Item Value Reference Range Interpretation Comments UA Mucus (test code = UA Mucus) Few /LPF [facility] AND [id number] 17:44:00 Test Item Value Reference Range Interpretation Comments UA WBC (test code = 2 See_Comment [Automa vasyl message] The UA WBC) system which ge nerated this result transmit vasyl reference range : <=5. The reference range was not used to interpr et this result as minnie l/abnormal. [facility] AND [id number] 17:44:00 Test Item Value Reference Range Interpretation Comments UA Leuk Est (test Negative (03/13/16 11:44 code = UA Leuk Est) AM) [facility] AND [id number] 17:44:00 Test Item Value Reference Range Interpretation Comments UA RBC (test code = no gt See_Comment [Automa vasyl message] The UA RBC) system which ge nerated this result transmit vasyl reference range : <=2. The reference range was not used to interpr et this result as minnie l/abnormal. [facility] AND [id number] 17:44:00 Test Item Value Reference Range Interpretation Comments UA Nitrite (test code Negative (03/13/16 = UA Nitrite) 11:44 AM) [facility] AND [id number] 17:44:00 Test Item Value Reference Range Interpretation Comments UA Blood (test code = Negative (03/13/16 11:44 UA Blood) AM) [facility] AND [id number] 17:44:00 Test Item Value Reference Range Interpretation Comments UA Spec Grav (test code = UA Spec Grav) 1.008 [facility] AND [id number] 17:44:00 Test Item Value Reference Range Interpretation Comments UA Turbidity (test code = Clear (03/13/16 UA Turbidity) 11:44 AM) [facility] AND [id number] 17:44:00 Test Item Value Reference Range Interpretation Comments UA pH (test code = UA pH) 6.5 5.0-8.0 [facility] AND [id number] 17:44:00 Test Item Value Reference Range Interpretation Comments UA Color (test code = Yellow *NA*(03/13/16 UA Color) 11:44 AM) [facility] AND [id number] 17:44:00 Test Item Value Reference Range Interpretation Comments UA Ketones (test code = UA Negative mg/dL Ketones) [facility] AND [id number] 17:44:00 Test Item Value Reference Range Interpretation Comments UA Bili (test code = Negative *NA*(03/13/16 UA Bili) 11:44 AM) [facility] AND [id number] 17:44:00 Test Item Value Reference Range Interpretation Comments UA Protein (test code = UA Negative mg/dL Protein) [facility] AND [id number] 17:44:00 Test Item Value Reference Range Interpretation Comments UA Glucose (test code = UA Negative mg/dL Glucose) [facility]ennialJrvtdjuGNAQXNHMUS2698-70-48 11:27:00 Test Item Value Reference Range Interpretation Comments Plt Morph (test code = Normal (03/11/16 5:27 Plt Morph) AM) [facility]ennialIvhxxxnMHKPWCMSXD0942-91-17 11:27:00 Test Item Value Reference Range Interpretation Comments Polychrom (test code = Polychrom) Slight [facility]ennialYkcekwpKULMHTJDUP7359-19-92 11:27:00 Test Item Value Reference Range Interpretation Comments Plt Morph (test code = Normal (03/11/16 5:27 Plt Morph) AM) [facility]ennialGfnzocxVMSYCZILAT1570-70-73 11:27:00 Test Item Value Reference Range Interpretation Comments Polychrom (test code = Polychrom) Slight [facility] CentennialAqjtreuYSENAQPLUJ2377-15-64 15:46:00 Test Item Value Reference Range Interpretation Comments Macrocyte (test code = 1+ *ABN*(03/10/16 Macrocyte) 9:46 AM) [facility] CentennialZfcmlvaFZDIPMLYYY5967-68-93 15:46:00 Test Item Value Reference Range Interpretation Comments Macrocyte (test code = 1+ *ABN*(03/10/16 Macrocyte) 9:46 AM) [facility] CentennialJhiaahtTRYLZIVWET2497-61-50 11:37:00 Test Item Value Reference Range Interpretation Comments Bands (test code = 0.0 See_Comment [Automat ed message] The Bands) system which ge nerated this result transmit vasyl reference range : <=11.0. The reference r niko was not used to interpr et this result as minnie l/abnormal. [facility] CentennialLmdrryxEQRUSVIKRS0080-98-82 11:37:00 Test Item Value Reference Range Interpretation Comments Metamyelocytes (test code 1.0 See_Comment [ Automated message] = Metamyelocytes) The system which generated this result transmitted ref erence range: <=1.0. T he reference range was not used to int erpret this result as normal/abnormal . [facility] CentennialIjvcxxvYTWZDTKIIM4677-70-87 11:37:00 Test Item Value Reference Range Interpretation Comments Plt Morph (test code = Normal (03/08/16 5:37 Plt Morph) AM) [facility]ennialWbqbtjzKUTENSDRHU3252-96-02 11:37:00 Test Item Value Reference Range Interpretation Comments Atypical Lymphs (test code = Atypical 0.0 Lymphs) [facility] CentennialUofszfpJZJMHHQMVO8754-65-09 11:37:00 Test Item Value Reference Range Interpretation Comments Myelocytes (test code = Myelocytes) 1.0 [facility] CentennialPcntowlWCVTLCGXFZ9163-89-54 11:37:00 Test Item Value Reference Range Interpretation Comments Bands (test code = 0.0 See_Comment [Automat ed message] The Bands) system which ge nerated this result transmit vasyl reference range : <=11.0. The reference r niko was not used to interpr et this result as minnie l/abnormal. [facility] CentennialGwtmuptHJANSFBAOA6439-24-27 11:37:00 Test Item Value Reference Range Interpretation Comments Metamyelocytes (test code 1.0 See_Comment [ Automated message] = Metamyelocytes) The system which generated this result transmitted ref erence range: <=1.0. T he reference range was not used to int erpret this result as normal/abnormal . [facility] CentennialYyphrqnFHFLGSOJZK8645-90-35 11:37:00 Test Item Value Reference Range Interpretation Comments Plt Morph (test code = Normal (03/08/16 5:37 Plt Morph) AM) [facility] CentennialMfxwlizOIDHJGNIRK2899-19-14 11:37:00 Test Item Value Reference Range Interpretation Comments Atypical Lymphs (test code = Atypical 0.0 Lymphs) [facility] CentennialRmrbysyFFGKFGGSSH5360-12-51 11:37:00 Test Item Value Reference Range Interpretation Comments Myelocytes (test code = Myelocytes) 1.0 [facility]PAR[facility]ROID [id number] 22:22:00 Test Item Value Reference Range Interpretation Comments Ca Ion WB (test code = Ca Ion WB) 1.05 1.05-1.25 [facility] SystemPARATHYROID [id number] 22:22:00 Test Item Value Reference Range Interpretation Comments Ca Norm WB (test code = Ca Norm WB) 1.06 1.05-1.25 [facility]2016-12-13 22:22:00 Test Item Value Reference Range Interpretation Comments Ca Ion WB (test code = Ca Ion WB) 1.05 1.05-1.25 [facility]2016-12-13 22:22:00 Test Item Value Reference Range Interpretation Comments Ca Norm WB (test code = Ca Norm WB) 1.06 1.05-1.25 [facility]2016-12-12 07:39:00 Test Item Value Reference Range Interpretation Comments Procalcitonin Lvl (test 1.24 See_Comment [Au tomated message] code = Procalcitonin Lvl) Th e system which generated this result transmitted ref erence range: <=0.10. The reference range was not used to interpr et this result as normal/abnormal . [facility] CentennialXenfqfjUKUMSSJFIO2654-01-96 07:39:00 Test Item Value Reference Range Interpretation Comments Sed Rate (test code = 100 See_Comment [Auto mated message] The Sed Rate) system which ge nerated this result transmit vasyl reference range : <=15. The reference range was not used to interpr et this result as minnie l/abnormal. [facility]SvepqorHULRPSZYIN0397-86-91 07:39:00 Test Item Value Reference Range Interpretation Comments C-REACTIVE PROTEIN (test code = 276.0 C-REACTIVE PROTEIN) [facility]2016-12-12 07:39:00 Test Item Value Reference Range Interpretation Comments Procalcitonin Lvl (test 1.24 See_Comment [Au tomated message] code = Procalcitonin Lvl) Th e system which generated this result transmitted ref erence range: <=0.10. The reference range was not used to interpr et this result as normal/abnormal . [facility] CentennialAkcimkvGIRWMCOHBB2203-01-29 07:39:00 Test Item Value Reference Range Interpretation Comments Sed Rate (test code = 100 See_Comment [Auto mated message] The Sed Rate) system which ge nerated this result transmit vasyl reference range : <=15. The reference range was not used to interpr et this result as minnie l/abnormal. [facility] HospitalPhkrenlANIYDRIXOM1223-66-54 07:39:00 Test Item Value Reference Range Interpretation Comments C-REACTIVE PROTEIN (test code = 276.0 C-REACTIVE PROTEIN) [facility]ennialVftswrlMUONFQAUBU7157-94-86 14:46:00 Test Item Value Reference Range Interpretation Comments Anisocyte (test code = 1+ *ABN*(03/05/16 Anisocyte) 8:46 AM) [facility] CentennialXcstfzjZSNJWPHRKI8586-98-90 14:46:00 Test Item Value Reference Range Interpretation Comments Plt Morph (test code = Normal (03/05/16 8:46 Plt Morph) AM) [facility] CentennialVikynbmXCPTEEZJOC1298-35-40 14:46:00 Test Item Value Reference Range Interpretation Comments Metamyelocytes (test code 2.0 See_Comment [ Automated message] = Metamyelocytes) The system which generated this result transmitted ref erence range: <=1.0. T he reference range was not used to int erpret this result as normal/abnormal . [facility]ennialPeviozvOCXYWTMPAL6934-70-32 14:46:00 Test Item Value Reference Range Interpretation Comments Atypical Lymphs (test code = Atypical 0.0 Lymphs) [facility] CentennialJnolwmqKIGUMAVNMF1761-27-57 14:46:00 Test Item Value Reference Range Interpretation Comments Bands (test code = 1.0 See_Comment [Automat ed message] The Bands) system which ge nerated this result transmit vasyl reference range : <=11.0. The reference r niko was not used to interpr et this result as minnie l/abnormal. [facility] CentennialCymluqqQNGGGNOCOE8370-83-90 14:46:00 Test Item Value Reference Range Interpretation Comments Anisocyte (test code = 1+ *ABN*(03/05/16 Anisocyte) 8:46 AM) [facility] CentennialSzpbhupWTSRQMBMGZ9461-38-74 14:46:00 Test Item Value Reference Range Interpretation Comments Plt Morph (test code = Normal (03/05/16 8:46 Plt Morph) AM) [facility] CentennialZubfbfqOTIOZSYRJS0042-11-95 14:46:00 Test Item Value Reference Range Interpretation Comments Metamyelocytes (test code 2.0 See_Comment [ Automated message] = Metamyelocytes) The system which generated this result transmitted ref erence range: <=1.0. T he reference range was not used to int erpret this result as normal/abnormal . [place] 182116-12-11 14:46:00 Test Item Value Reference Range Interpretation Comments Atypical Lymphs (test code = Atypical 0.0 Lymphs) [facility] UgxqcosLMTJBLHHSL9297-13-48 14:46:00 Test Item Value Reference Range Interpretation Comments Bands (test code = 1.0 See_Comment [Automat ed message] The Bands) system which ge nerated this result transmit vasyl reference range : <=11.0. The reference r niko was not used to interpr et this result as minnie l/abnormal. [facility]PAR[facility] [id number] 22:26:00 Test Item Value Reference Range Interpretation Comments Ca Ion WB (test code = Ca Ion WB) 1.09 1.05-1.25 [facility]PARATHYROID [id number] 22:26:00 Test Item Value Reference Range Interpretation Comments Ca Norm WB (test code = Ca Norm WB) 1.07 1.05-1.25 [facility]PAR[facility]YROID [id number] 22:26:00 Test Item Value Reference Range Interpretation Comments Ca Ion WB (test code = Ca Ion WB) 1.09 1.05-1.25 [facility]PAR[facility]YRO[facility] [id number] 22:26:00 Test Item Value Reference Range Interpretation Comments Ca Norm WB (test code = Ca Norm WB) 1.07 1.05-1.25 [facility] [id number] 17:57:00 Test Item Value Reference Range Interpretation Comments UA Sq Epi (test code = UA Sq Epi) None [facility]en [facility] [id number] 17:57:00 Test Item Value Reference Range Interpretation Comments UA Hyal Cast (test 3 See_Comment [Automat ed message] The code = UA Hyal Cast) system which generated this result transmit vasyl reference range : <=2. The reference range was not used to interpr et this result as minnie l/abnormal. [facility] [id number] 17:57:00 Test Item Value Reference Range Interpretation Comments UA Commerce Yeast (test code = UA Commerce Few /HPF Yeast) [facility] [id number] 17:57:00 Test Item Value Reference Range Interpretation Comments UA Hyph Yeast (test Occasional *ABN*(03/04/16 code = UA Hyph 11:57 AM) [facility]) [facility] [id number] 17:57:00 Test Item Value Reference Range Interpretation Comments UA Urobilinogen (test code = UA <=1.0 mg/dL 0.1-1.0 Urobilinogen) [facility] AND [id number] 17:57:00 Test Item Value Reference Range Interpretation Comments UA Amorph Cindy (test code = Occasional /HPF UA Amorph Cindy) [facility] AND [id number] 17:57:00 Test Item Value Reference Range Interpretation Comments UA WBC (test code = 14 See_Comment [Automa vasyl message] The UA WBC) system which ge nerated this result transmit vasyl reference range : <=5. The reference range was not used to interpr et this result as minnie l/abnormal. [facility] AND [id number] 17:57:00 Test Item Value Reference Range Interpretation Comments UA RBC (test code = 3 See_Comment [Automa vasyl message] The UA RBC) system which ge nerated this result transmit vasyl reference range : <=2. The reference range was not used to interpr et this result as minnie l/abnormal. [facility] AND [id number] 17:57:00 Test Item Value Reference Range Interpretation Comments UA Bacteria (test code = UA Occasional /HPF Bacteria) [facility] AND [id number] 17:57:00 Test Item Value Reference Range Interpretation Comments UA Mucus (test code = UA Mucus) Few /LPF [facility] AND [id number] 17:57:00 Test Item Value Reference Range Interpretation Comments UA Glucose (test code = UA Negative mg/dL Glucose) [facility] AND [id number] 17:57:00 Test Item Value Reference Range Interpretation Comments UA pH (test code = UA pH) 6.0 5.0-8.0 [facility] AND [id number] 17:57:00 Test Item Value Reference Range Interpretation Comments UA Spec Grav (test code = UA Spec Grav) 1.018 [facility] AND [id number] 17:57:00 Test Item Value Reference Range Interpretation Comments UA Color (test code = Yellow *NA*(03/04/16 UA Color) 11:57 AM) [facility] AND [id number] 17:57:00 Test Item Value Reference Range Interpretation Comments UA Turbidity (test code = Clear (03/04/16 UA Turbidity) 11:57 AM) [facility] AND [id number] 17:57:00 Test Item Value Reference Range Interpretation Comments UA Blood (test code = Negative (03/04/16 11:57 UA Blood) AM) [facility] AND [id number] 17:57:00 Test Item Value Reference Range Interpretation Comments UA Bili (test code = Negative *NA*(03/04/16 UA Bili) 11:57 AM) [facility] AND [id number] 17:57:00 Test Item Value Reference Range Interpretation Comments UA Nitrite (test code Negative (03/04/16 = UA Nitrite) 11:57 AM) [facility] AND [id number] 17:57:00 Test Item Value Reference Range Interpretation Comments UA Leuk Est (test code Small *ABN*(03/04/16 = UA Leuk Est) 11:57 AM) [facility] AND [id number] 17:57:00 Test Item Value Reference Range Interpretation Comments UA Protein (test code = UA Protein) 50 mg/dL [facility] AND [id number] 17:57:00 Test Item Value Reference Range Interpretation Comments UA Ketones (test code = UA Negative mg/dL Ketones) [facility] AND [id number] 17:57:00 Test Item Value Reference Range Interpretation Comments UA Sq Epi (test code = UA Sq Epi) None Seen [facility] AND [id number] 17:57:00 Test Item Value Reference Range Interpretation Comments UA Hyal Cast (test 3 See_Comment [Automat ed message] The code = UA Hyal Cast) system which generated this result transmit vasyl reference range : <=2. The reference range was not used to interpr et this result as minnie l/abnormal. [facility] AND [id number] 17:57:00 Test Item Value Reference Range Interpretation Comments UA Commerce Yeast (test code = UA Commerce Few /HPF Yeast) [facility] AND [id number] 17:57:00 Test Item Value Reference Range Interpretation Comments UA Hyph Yeast (test Occasional *ABN*(03/04/16 code = UA Hyph 11:57 AM) Yeast) [facility] AND [id number] 17:57:00 Test Item Value Reference Range Interpretation Comments UA Urobilinogen (test code = UA <=1.0 mg/dL 0.1-1.0 Urobilinogen) [facility] AND [id number] 17:57:00 Test Item Value Reference Range Interpretation Comments UA Amorph Cindy (test code = Occasional /HPF UA Amorph Cindy) [facility] AND [id number] 17:57:00 Test Item Value Reference Range Interpretation Comments UA WBC (test code = 14 See_Comment [Automa vasyl message] The UA WBC) system which ge nerated this result transmit vasyl reference range : <=5. The reference range was not used to interpr et this result as minnie l/abnormal. [facility] [id number] 17:57:00 Test Item Value Reference Range Interpretation Comments UA RBC (test code = 3 See_Comment [Automa vasyl message] The UA RBC) system which ge nerated this result transmit vasyl reference range : <=2. The reference range was not used to interpr et this result as minnie l/abnormal. [facility] AND [id number] 17:57:00 Test Item Value Reference Range Interpretation Comments UA Bacteria (test code = UA Occasional /HPF Bacteria) [facility] AND [id number] 17:57:00 Test Item Value Reference Range Interpretation Comments UA Mucus (test code = UA Mucus) Few /LPF [facility] AND [id number] 17:57:00 Test Item Value Reference Range Interpretation Comments UA Glucose (test code = UA Negative mg/dL Glucose) [facility] AND [id number] 17:57:00 Test Item Value Reference Range Interpretation Comments UA pH (test code = UA pH) 6.0 5.0-8.0 [facility] AND [id number] 17:57:00 Test Item Value Reference Range Interpretation Comments UA Spec Grav (test code = UA Spec Grav) 1.018 [facility] AND [id number] 17:57:00 Test Item Value Reference Range Interpretation Comments UA Color (test code = Yellow *NA*(03/04/16 UA Color) 11:57 AM) [facility] AND [id number] 17:57:00 Test Item Value Reference Range Interpretation Comments UA Turbidity (test code = Clear (03/04/16 UA Turbidity) 11:57 AM) [facility] [id number] 17:57:00 Test Item Value Reference Range Interpretation Comments UA Blood (test code = Negative (03/04/16 11:57 UA Blood) AM) [facility] [id number] 17:57:00 Test Item Value Reference Range Interpretation Comments UA Bili (test code = Negative *NA*(03/04/16 UA Bili) 11:57 AM) [facility] [id number] 17:57:00 Test Item Value Reference Range Interpretation Comments UA Nitrite (test code Negative (03/04/16 = UA Nitrite) 11:57 AM) [facility] [id number] 17:57:00 Test Item Value Reference Range Interpretation Comments UA Leuk Est (test code Small *ABN*(03/04/16 = UA Leuk Est) 11:57 AM) [facility] [id number] 17:57:00 Test Item Value Reference Range Interpretation Comments UA Protein (test code = UA Protein) 50 mg/dL [facility] [id number] 17:57:00 Test Item Value Reference Range Interpretation Comments UA Ketones (test code = UA Negative mg/dL Ketones) [facility] [id number] 10:27:00 Test Item Value Reference Range Interpretation Comments Troponin-I (test code 0.03 See_Comment [Auto mated message] The = Troponin-I) system which g enerated this result transmit vasyl reference range : <=0.40. The reference r niko was not used to interpr et this result as minnie l/abnormal. [facility] [id number] 10:27:00 Test Item Value Reference Range Interpretation Comments Total CK (test code = Total CK) 183 12-191 [facility] [id number] 10:27:00 Test Item Value Reference Range Interpretation Comments CK MB Index (test 0.5 See_Comment [Automate d message] The code = CK MB Index) [facility] this result transmit vasyl reference range : <=2.5. The reference range was not used to interpr et this result as minnie l/abnormal. [facility] MykelannCARDIAC [id number] 10:27:00 Test Item Value Reference Range Interpretation Comments CK MB (test code = CK MB) 0.9 0.5-3.6 [facility] [email or web address] [id number] 10:27:00 Test Item Value Reference Range Interpretation Comments Bili Direct (test code 0.1 See_Comment [Aut omated message] The = Bili Direct) system which generated this result tra nsmitted reference range : <=0.3. The reference r niok was not used to int erpret this result as minnie l/abnormal. [facility] MykelMediaVast [id number] 10:27:00 Test Item Value Reference Range Interpretation Comments Bili Indirect (test 0.3 See_Comment [Automa vasyl message] The code = Bili Indirect) system which generated this result tra nsmitted reference range : <=1.0. The reference r niko was not used to int erpret this result as normal/abnormal . [facility] [id number] 10:27:00 Test Item Value Reference Range Interpretation Comments Vanco Tr TND (test code = Vanco Tr TND) 1330 [facility] [id number] 10:27:00 Test Item Value Reference Range Interpretation Comments Vanco Tr (test code = Vanco Tr) no gt [facility] ZipdialannCARIdhasoftAC [id number] 10:27:00 Test Item Value Reference Range Interpretation Comments Troponin-I (test code 0.03 See_Comment [Auto mated message] The = Troponin-I) system which g enerated this result transmit vasyl reference range : <=0.40. The reference r niko was not used to interpr et this result as minnie l/abnormal. [facility] ZipdialannCARDIAC [id number] 10:27:00 Test Item Value Reference Range Interpretation Comments Total CK (test code = Total CK) 183 12-191 [facility] ZipdialannCARIdhasoftAC [id number] 10:27:00 Test Item Value Reference Range Interpretation Comments CK MB Index (test 0.5 See_Comment [Automate d message] The code = CK MB Index) [facility] generated this result transmit vasyl reference range : <=2.5. The reference range was not used to interpr et this result as minnie l/abnormal. [facility] [id number] 10:27:00 Test Item Value Reference Range Interpretation Comments CK MB (test code = CK MB) 0.9 0.5-3.6 [facility] SystemHuggler.com [id number] 10:27:00 Test Item Value Reference Range Interpretation Comments Bili Direct (test code 0.1 See_Comment [Aut omated message] The = Bili Direct) system which generated this result tra nsmitted reference range : <=0.3. The reference r niko was not used to int erpret this result as minnie l/abnormal. [facility] SystemMediaVast [id number] 10:27:00 Test Item Value Reference Range Interpretation Comments Bili Indirect (test 0.3 See_Comment [Automa vasyl message] The code = Bili Indirect) system which generated this result tra nsmitted reference range : <=1.0. The reference r niko was not used to int erpret this result as normal/abnormal . [facility] [id number] 10:27:00 Test Item Value Reference Range Interpretation Comments Vanco Tr TND (test code = Vanco Tr TND) 1330 [facility] [id number] 10:27:00 Test Item Value Reference Range Interpretation Comments Vanco Tr (test code = Vanco Tr) no gt [facility] SystemMediaVast [id number] 23:04:00 Test Item Value Reference Range Interpretation Comments Lactic Acid Lvl (test code = Lactic 1.3 0.5-2.2 Acid Lvl) [facility] SystemMedia[facility]ast [id number] 23:04:00 Test Item Value Reference Range Interpretation Comments Lactic Acid Lvl (test code = Lactic 1.3 0.5-2.2 Acid Lvl) [facility] SystemDoseMe [id number] 23:26:00 Test Item Value Reference Range Interpretation Comments CK MB Index (test 1.6 See_Comment [Automate d message] The code = CK MB Index) [facility] this result transmit vasyl reference range : <=2.5. The reference range was not used to interpr et this result as minnie l/abnormal. [facility] SystemBring Light2016-12-06 23:26:00 Test Item Value Reference Range Interpretation Comments CK MB (test code = CK MB) 2.8 0.5-3.6 [facility] [employer]2016-12-06 23:26:00 Test Item Value Reference Range Interpretation Comments Troponin-I (test code 0.02 See_Comment [Auto mated message] The = Troponin-I) system which g enerated this result transmit vasyl reference range : <=0.40. The reference r niko was not used to interpr et this result as minnie l/abnormal. [facility] [employer]2016-12-06 23:26:00 Test Item Value Reference Range Interpretation Comments Total CK (test code = Total CK) 176 [facility] [employer]2016-12-06 23:26:00 Test Item Value Reference Range Interpretation Comments CK MB Index (test 1.6 See_Comment [Automate d message] The code = CK MB Index) [facility] generated this result transmit vasyl reference range : <=2.5. The reference range was not used to interpr et this result as minnie l/abnormal. [facility] [employer]2016-12-06 23:26:00 Test Item Value Reference Range Interpretation Comments CK MB (test code = CK MB) 2.8 0.5-3.6 [facility] [employer]2016-12-06 23:26:00 Test Item Value Reference Range Interpretation Comments Troponin-I (test code 0.02 See_Comment [Auto mated message] The = Troponin-I) system which g enerated this result transmit vasyl reference range : <=0.40. The reference r niko was not used to interpr et this result as minnie l/abnormal. [employer]2016-12-06 23:26:00 Test Item Value Reference Range Interpretation Comments Total CK (test code = Total CK) 176 [facility] [employer] [id number] 18:20:00 Test Item Value Reference Range Interpretation Comments RBC product (test code Product available = RBC product) (02/29/16 12:20 PM) [facility] [employer] [id number] 18:20:00 Test Item Value Reference Range Interpretation Comments RBC product (test code Product available = RBC product) (02/29/16 12:20 PM) [facility] [id number] 07:23:00 Test Item Value Reference Range Interpretation Comments Vanco Tr TND (test code = Vanco Tr TND) [facility]30 [facility] [id number] 07:23:00 Test Item Value Reference Range Interpretation Comments Vanco Tr (test code = Vanco Tr) 9.4 [facility] [id number] 07:23:00 Test Item Value Reference Range Interpretation Comments Vanco Tr TND (test code = Vanco Tr TND) 0030 [facility] [id number] 07:23:00 Test Item Value Reference Range Interpretation Comments Vanco Tr (test code = Vanco Tr) 9.4 [facility] [employer] [id number] 18:45:00 Test Item Value Reference Range Interpretation Comments Antibody Scrn (test Negative (02/28/16 code = Antibody Scrn) 12:45 PM) [facility] SystemMySQUARhhgregg [id number] 18:45:00 Test Item Value Reference Range Interpretation Comments ABO/Rh (test code = ABO/Rh) B POS [facility] [employer] [id number] 18:45:00 Test Item Value Reference Range Interpretation Comments Antibody Scrn (test Negative (02/28/16 code = Antibody Scrn) 12:45 PM) [facility] SystemMySQUARhhgregg [id number] 18:45:00 Test Item Value Reference Range Interpretation Comments ABO/Rh (test code = ABO/Rh) B POS [facility] AND [id number] 14:36:00 Test Item Value Reference Range Interpretation Comments UA Urobilinogen (test code = UA <=1.0 mg/dL 0.1-1.0 Urobilinogen) [facility] AND [id number] 14:36:00 Test Item Value Reference Range Interpretation Comments UA RBC (test code = 168 See_Comment [Automa vasyl message] The UA RBC) system which ge nerated this result transmit vasyl reference range : <=2. The reference range was not used to interpr et this result as minnie l/abnormal. [facility] [id number] 14:36:00 Test Item Value Reference Range Interpretation Comments UA Mucus (test code = UA Mucus) Few /LPF [facility] AND [id number] 14:36:00 Test Item Value Reference Range Interpretation Comments UA Sq Epi (test code = UA Sq Epi) None Seen [facility] AND [id number] 14:36:00 Test Item Value Reference Range Interpretation Comments UA Leuk Est (test code Small *ABN*(02/28/16 = UA Leuk Est) 8:36 AM) [facility] AND [id number] 14:36:00 Test Item Value Reference Range Interpretation Comments UA WBC (test code = 9 See_Comment [Automa vasyl message] The UA WBC) system which ge nerated this result transmit vasyl reference range : <=5. The reference range was not used to interpr et this result as minnie l/abnormal. [facility] AND [id number] 14:36:00 Test Item Value Reference Range Interpretation Comments UA Color (test code = Yellow *NA*(02/28/16 UA Color) 8:36 AM) [facility] AND [id number] 14:36:00 Test Item Value Reference Range Interpretation Comments UA Spec Grav (test code = UA Spec Grav) 1.037 [facility] AND [id number] 14:36:00 Test Item Value Reference Range Interpretation Comments UA Turbidity (test code = Clear (02/28/16 8:36 UA Turbidity) AM) [facility] AND [id number] 14:36:00 Test Item Value Reference Range Interpretation Comments UA Bili (test code = Negative *NA*(02/28/16 UA Bili) 8:36 AM) [facility] AND [id number] 14:36:00 Test Item Value Reference Range Interpretation Comments UA Blood (test code = Moderate *ABN*(02/28/16 UA Blood) 8:36 AM) [facility] AND [id number] 14:36:00 Test Item Value Reference Range Interpretation Comments UA Nitrite (test code Negative (02/28/16 8:36 = UA Nitrite) AM) [facility] AND [id number] 14:36:00 Test Item Value Reference Range Interpretation Comments UA Glucose (test code = UA Negative mg/dL Glucose) [facility] AND [id number] 14:36:00 Test Item Value Reference Range Interpretation Comments UA Ketones (test code = UA Negative mg/dL Ketones) [facility] AND [id number] 14:36:00 Test Item Value Reference Range Interpretation Comments UA pH (test code = UA pH) 6.0 5.0-8.0 [facility] AND [id number] 14:36:00 Test Item Value Reference Range Interpretation Comments UA Protein (test code = UA Protein) 70 mg/dL [facility] AND [id number] 14:36:00 Test Item Value Reference Range Interpretation Comments UA Urobilinogen (test code = UA <=1.0 mg/dL 0.1-1.0 Urobilinogen) [facility] AND [id number] 14:36:00 Test Item Value Reference Range Interpretation Comments UA RBC (test code = 168 See_Comment [Automa vasyl message] The UA RBC) system which ge nerated this result transmit vasyl reference range : <=2. The reference range was not used to interpr et this result as minnie l/abnormal. [facility] AND [id number] 14:36:00 Test Item Value Reference Range Interpretation Comments UA Mucus (test code = UA Mucus) Few /LPF [facility] AND [id number] 14:36:00 Test Item Value Reference Range Interpretation Comments UA Sq Epi (test code = UA Sq Epi) None Seen [facility] AND [id number] 14:36:00 Test Item Value Reference Range Interpretation Comments UA Leuk Est (test code Small *ABN*(02/28/16 = UA Leuk Est) 8:36 AM) [facility] AND [id number] 14:36:00 Test Item Value Reference Range Interpretation Comments UA WBC (test code = 9 See_Comment [Automa vasyl message] The UA WBC) system which ge nerated this result transmit vasyl reference range : <=5. The reference range was not used to interpr et this result as minnie l/abnormal. [facility] AND [id number] 14:36:00 Test Item Value Reference Range Interpretation Comments UA Color (test code = Yellow *NA*(02/28/16 UA Color) 8:36 AM) [facility] AND [id number] 14:36:00 Test Item Value Reference Range Interpretation Comments UA Spec Grav (test code = UA Spec Grav) 1.037 [facility] AND [id number] 14:36:00 Test Item Value Reference Range Interpretation Comments UA Turbidity (test code = Clear (02/28/16 8:36 UA Turbidity) AM) [facility] AND [id number] 14:36:00 Test Item Value Reference Range Interpretation Comments UA Bili (test code = Negative *NA*(02/28/16 UA Bili) 8:36 AM) [facility] AND [id number] 14:36:00 Test Item Value Reference Range Interpretation Comments UA Blood (test code = Moderate *ABN*(02/28/16 UA Blood) 8:36 AM) [facility] AND [id number] 14:36:00 Test Item Value Reference Range Interpretation Comments UA Nitrite (test code Negative (02/28/16 8:36 = UA Nitrite) AM) [facility] AND [id number] 14:36:00 Test Item Value Reference Range Interpretation Comments UA Glucose (test code = UA Negative mg/dL Glucose) [facility] AND [id number] 14:36:00 Test Item Value Reference Range Interpretation Comments UA Ketones (test code = UA Negative mg/dL Ketones) [facility] AND [id number] 14:36:00 Test Item Value Reference Range Interpretation Comments UA pH (test code = UA pH) 6.0 5.0-8.0 [facility] AND [id number] 14:36:00 Test Item Value Reference Range Interpretation Comments UA Protein (test code = UA Protein) 70 mg/dL [facility]2016-12-04 18:02:00 Test Item Value Reference Range Interpretation Comments Lactic Acid Lvl (test code = Lactic 1.8 0.5-2.2 Acid Lvl) [facility]2016-12-04 18:02:00 Test Item Value Reference Range Interpretation Comments Lactic Acid Lvl (test code = Lactic 1.8 0.5-2.2 Acid Lvl) [facility]2016-12-04 14:39:00 Test Item Value Reference Range Interpretation Comments Lactic Acid Lvl (test code = Lactic 2.4 0.5-2.2 Acid Lvl) [facility]2016-12-04 14:39:00 Test Item Value Reference Range Interpretation Comments Ca Norm WB (test code = Ca Norm WB) 1.19 1.05-1.25 [facility]2016-12-04 14:39:00 Test Item Value Reference Range Interpretation Comments Ca Ion WB (test code = Ca Ion WB) 1.13 1.05-1.25 [facility] [id number] 14:39:00 Test Item Value Reference Range Interpretation Comments Lactic Acid Lvl (test code = Lactic 2.4 0.5-2.2 Acid Lvl) [facility]2016-12-04 14:39:00 Test Item Value Reference Range Interpretation Comments Ca Norm WB (test code = Ca Norm WB) 1.19 1.05-1.25 [facility]2016-12-04 14:39:00 Test Item Value Reference Range Interpretation Comments Ca Ion WB (test code = Ca Ion WB) 1.13 1.05-1.25 [facility] [id number] 10:30:00 Test Item Value Reference Range Interpretation Comments ABO/Rh (test code = ABO/Rh) B POS [facility] [id number] 10:30:00 Test Item Value Reference Range Interpretation Comments Antibody Scrn (test Negative (02/25/16 4:30 code = Antibody Scrn) AM) [facility] [id number] 10:30:00 Test Item Value Reference Range Interpretation Comments ABO/Rh (test code = ABO/Rh) B POS [facility] [id number] 10:30:00 Test Item Value Reference Range Interpretation Comments Antibody Scrn (test Negative (02/25/16 4:30 code = Antibody Scrn) AM) [id number] 10:57:00 Test Item Value Reference Range Interpretation Comments CHD Risk (test code = CHD Risk) 2.76 4.00-7.30 [facility]ObjpgspZQOLWC1591-70-17 10:57:00 Test Item Value Reference Range Interpretation Comments LDL (Calculated) (test code = LDL 37 (Calculated)) [facility]XjkrevnOGQBYQ9058-84-14 10:57:00 Test Item Value Reference Range Interpretation Comments VLDL (test code = VLDL) 23 [facility] CenterMvzepjaXTYVFW3643-60-76 10:57:00 Test Item Value Reference Range Interpretation Comments Trig (test code = Trig) 117 [facility] CenterQtqrlsyBOYRSO9387-82-04 10:57:00 Test Item Value Reference Range Interpretation Comments HDL (test code = HDL) 34 [facility] CenterQlahewgEWYAFP6195-69-42 10:57:00 Test Item Value Reference Range Interpretation Comments Chol (test code = Chol) 94 [facility] [id number] 10:57:00 Test Item Value Reference Range Interpretation Comments Hgb A1C (test code = Hgb A1C) 5.9 [facility] CenterBvpcytmIPDBRM4917-84-34 10:57:00 Test Item Value Reference Range Interpretation Comments CHD Risk (test code = CHD Risk) 2.76 4.00-7.30 [facility] [id number] 10:57:00 Test Item Value Reference Range Interpretation Comments LDL (Calculated) (test code = LDL 37 (Calculated)) [facility] CenterRkaotjuBECQLC0836-10-94 10:57:00 Test Item Value Reference Range Interpretation Comments VLDL (test code = VLDL) 23 [facility] [id number] 10:57:00 Test Item Value Reference Range Interpretation Comments Trig (test code = Trig) 117 [facility] CenterCjfjopjVQRGYB7551-36-42 10:57:00 Test Item Value Reference Range Interpretation Comments HDL (test code = HDL) 34 [facility] CenterIyohoprKLXNIT7644-65-76 10:57:00 Test Item Value Reference Range Interpretation Comments Chol (test code = Chol) 94 [facility]2016-12-01 10:57:00 Test Item Value Reference Range Interpretation Comments Hgb A1C (test code = Hgb A1C) 5.9 [facility]PuerpctLVPAIDNZKB5511-50-95 09:33:00 Test Item Value Reference Range Interpretation Comments PT (test code = PT) 15.5 s 12.0-14.7 [facility]CjjpsiwCJQYTOQTKO8105-31-74 09:33:00 Test Item Value Reference Range Interpretation Comments INR (test code = INR) 1.20 0.85-1.17 [facility]ennialBdqtdvvQFTBMMOHYA1844-69-47 09:33:00 Test Item Value Reference Range Interpretation Comments PTT (test code = PTT) 27.0 s 22.9-35.8 [facility] Syst[id number] 09:33:00 Test Item Value Reference Range Interpretation Comments PT (test code = PT) 15.5 s 12.0-14.7 [facility]enni[id number] 09:33:00 Test Item Value Reference Range Interpretation Comments INR (test code = INR) 1.20 0.85-1.17 [facility] SystemLkpdjpjKWKBUVPAHI0344-81-66 09:33:00 Test Item Value Reference Range Interpretation Comments PTT (test code = PTT) 27.0 s 22.9-35.8 [facility] SystemMySQUARhhgregg [id number] 11:56:00 Test Item Value Reference Range Interpretation Comments ABO/Rh (test code = ABO/Rh) B POS [facility] [id number] 11:56:00 Test Item Value Reference Range Interpretation Comments Antibody Scrn (test Negative (02/21/16 code = Antibody Scrn) 5:56 AM) [facility] [id number] 11:56:00 Test Item Value Reference Range Interpretation Comments ABO/Rh (test code = ABO/Rh) B POS [facility] [employer] [facility] [id number] 11:56:00 Test Item Value Reference Range Interpretation Comments Antibody Scrn (test Negative (02/21/16 code = Antibody Scrn) 5:56 AM) [facility]BACT[facility] - [id number] 21:30:00 Test Item Value Reference Range Interpretation Comments MRSA by PCR (test Negative (02/08/16 3:30 code = MRSA by PCR) PM) [facility] SystemMySQUARCHEM [id number] 21:30:00 Test Item Value Reference Range Interpretation Comments Vitamin D, 25-OH, Total (test code = 29 30-100 Vitamin D, 25-OH, Total) [facility] Syst[id number] 21:30:00 Test Item Value Reference Range Interpretation Comments PT (test code = PT) 13.1 s 12.0-14.7 [facility][id number] 21:30:00 Test Item Value Reference Range Interpretation Comments PTT (test code = PTT) 29.2 s 22.9-35.8 [facility] [id number] 21:30:00 Test Item Value Reference Range Interpretation Comments INR (test code = INR) 0.97 0.85-1.17 [facility] KrqvqqaHFJTWYDSWW0894-21-16 21:30:00 Test Item Value Reference Range Interpretation Comments HIV 1/2 Ab (test code Negative *NA*(02/08/16 = HIV 1/2 Ab) 3:30 PM) [facility] IrliadjFWWSVLVQEK7536-58-11 21:30:00 Test Item Value Reference Range Interpretation Comments Hep C Ab (test code = Negative *NA*(02/08/16 Hep C Ab) 3:30 PM) [facility] SystemannURINE AND [id number] 21:30:00 Test Item Value Reference Range Interpretation Comments Micro? (test code = Not Indicated Micro?) *NA*(02/08/16 3:30 PM) [facility]UR[facility] [id number] 21:30:00 Test Item Value Reference Range Interpretation Comments U Cotinine Lvl (test Negative *NA*(02/08/16 code = U Cotinine Lvl) 3:30 PM) [facility] SystemannBACTERIAL - [id number] 21:30:00 Test Item Value Reference Range Interpretation Comments MRSA by PCR (test Negative (02/08/16 3:30 code = MRSA by PCR) PM) [facility] SystemannCHEM [id number] 21:30:00 Test Item Value Reference Range Interpretation Comments Vitamin D, 25-OH, Total (test code = 29 30-100 Vitamin D, 25-OH, Total) [facility] [id number] 21:30:00 Test Item Value Reference Range Interpretation Comments PT (test code = PT) 13.1 s 12.0-14.7 [facility] [id number] 21:30:00 Test Item Value Reference Range Interpretation Comments PTT (test code = PTT) 29.2 s 22.9-35.8 [facility] [id number] 21:30:00 Test Item Value Reference Range Interpretation Comments INR (test code = INR) 0.97 0.85-1.17 [facility] [id number] 21:30:00 Test Item Value Reference Range Interpretation Comments HIV 1/2 Ab (test code Negative *NA*(11/15/16 = HIV 1/2 Ab) 3:30 PM) [facility] Syst[id number] 21:30:00 Test Item Value Reference Range Interpretation Comments Hep C Ab (test code = Negative *NA*(02/08/16 Hep C Ab) 3:30 PM) [facility] AND [id number] 21:30:00 Test Item Value Reference Range Interpretation Comments Micro? (test code = Not Indicated Micro?) *NA*(02/08/16 3:30 PM) [facility] [id number] 21:30:00 Test Item Value Reference Range Interpretation Comments U Cotinine Lvl (test Negative *NA*(02/08/16 code = U Cotinine Lvl) 3:30 PM) [facility]
--- NOTE | 2021-12-08 12:03 | RAD REPORT ---
EXAM DESCRIPTION: CT - Ct Stroke Brain Wo Cont - 12/08/2021 11:53 am CLINICAL HISTORY: Head injury status post fall. COMPARISON: April 2021 MRI TECHNIQUE: Computed axial tomography of the head was obtained. All CT scans are performed using dose optimization technique as appropriate and may include automated exposure control or mA/KV adjustment according to patient size. FINDINGS: An intracranial bleed is not seen . The ventricles are normal in caliber. No extra-axial fluid collection is noted. Mild to moderate low-density within periventricular, deep and subcortical white matter likely ischemi c changes secondary to small vessel disease Fluid within the sinuses/ mastoids is not seen. IMPRESSION: No acute intracranial abnormality is seen. If patient's symptoms persist MRI of the bra in would be recommended. Dr Carter of the emergency room was notified at 11:58 a.m. December 08, 2021
--- NOTE | 2021-12-08 12:26 | RAD REPORT ---
EXAM DESCRIPTION: Geovany Single View12/08/2021 12:13 pm CLINICAL HISTORY: Leg weakness COMPARISON: 2020 FINDINGS: The lungs appear clear of acute infiltrate. The heart is normal size IMPRESSION: No acute abnormalities displayed
[2021-12-08 13:07] LABS: Absolute Lymphocytes (CBC) 1.2 K/uL (0.7-4.9); Hematocrit 39.4 % (39.6-49.0); Lymphocytes % 16.8 % (15.3-44.8); MCV 84.4 fL (80-100); MPV 6.5 fL (7.6-11.3); RBC Red Blood Cell Count 4.67 M/uL (4.33-5.43)
[2021-12-08] MEDS ORDERED: ASPIRIN 81 MG CHEWABLE TABLET ONE (13:08)
[2021-12-08] MEDS ORDERED: FOLIC ACID 5 MG/ML VIAL ONE (13:09)
[2021-12-08 13:18] LABS: Albumin 3.3 g/dL (3.4-5.0); Bilirubin Direct 0.1 mg/dL (0-0.2); Bilirubin Total 0.3 mg/dL (0.2-1.0); Magnesium 1.9 mg/dL (1.8-2.4); Potassium 4.2 mmol/L (3.5-5.1); Protein, Total 6.5 g/dL (6.4-8.2)
[2021-12-08 13:34] LABS: SARS-CoV-2 Antigen Rapid Res Negative (Negative)
[2021-12-08 13:43] LABS: Protime INR 0.89
--- NOTE | 2021-12-08 13:48 | P.HP ---
Certification for Inpatient With expected LOS: >2 Midnights Practitioner: I am a practitioner with admitting privileges, knowledge of patient current condition, hospital course, and medical plan of care. Services: Services provided to patient in accordance with Admission requirements found in Title 42 Section 412.3 of the Code of Federal Regulations Patient History Date of Service: 12/08/21 Primary Care Provider: Dr. Cordon Reason for admission: right sided weakness History of Present Illness: Mr. Johansen is a 81 yo male with a hx of Parkinson's, Dizziness, Atrial fibrillation, Diverticulitis, and multiple orthopedic surgeries. He presented to the ED today with a c/o right sided weakness. He was not sleeping well, took a sleeping pill, but awoke at 0300. When he got up to go to the bathroom he states his right leg gave out on him and he struck his head on the cabinets. No fall to the ground but the right leg weakness did not improve. He states, "I don't have any pain but I cannot make my right leg or my right arm/hand do what I want it to." Of note pt had a lumbar procedure on , Spouse states the area is still draining. Mr. Johansen's initial CT is negative today. He will be getting a CT angio. Presentation of CVA s/s is too remote for thrombolytics. Pt will be admitted for observation with a consult to Dr. Vides. Allergies No Known Allergies Allergy (Verified 07/05/21 10:13) Home Medications: Tamsulosin [Flomax*] 0.4 mg PO BID 08/15/16 Metoprolol Succinate [Toprol Xl*] 25 mg PO DAILY 09/06/17 Multivitamin [Multivitamins] 1 each PO DAILY 09/06/17 Rasagiline Mesylate 1 mg PO DAILY 09/06/17 Ropinirole HCl [Requip*] 0.5 mg PO TID 09/06/17 Carbidopa/Levodopa [Carbidopa-Levodopa 25-100 Tab] 1 each PO TID 11/07/19 Furosemide [Lasix*] 20 mg PO BID 11/07/19 Levothyroxine [Synthroid*] 50 mcg PO [id number] 11/07/19 Metformin HCl [Glucophage*] 1,000 mg PO BID 11/07/19 Pantoprazole [Protonix Tab*] 40 mg PO DAILY 11/07/19 Pregabalin 75 mg PO BID 11/07/19 Atorvastatin Calcium [Lipitor] 40 mg PO BEDTIME 03/01/20 Aspirin [Aspirin EC 81 MG] 81 mg PO DAILY 03/07/21 Glucosamine/Chondroiti/Qkxr017 [Cosamin Asu Capsule] 1 each PO DAILY 07/05/21 Loratadine [Allergy Relief] 10 mg PO DAILY 07/05/21 Trazodone HCl 100 mg PO BEDTIME 07/05/21 Ubidecarenone [Co Q-10] 200 mg PO DAILY 07/05/21 - Past Medical/Surgical History Diabetic: No -: sepsis of right shoulder, bilateral replacements -: diverticulitis/partial resection of colon (Dr. Anthony) -: Parkinsons -: TIA/CVA with continued right sided effects, dizziness -: Double vision s/p cataract surgery -: Back surgery x 3 (most recent 12/04/21) Dr. Morelos -: back sx x3 -: left shoulder rotator cuff x2 -: right shoulder rotator cuff -: right shoulder replacement -: bowl resection -: left greater toe, artificial toe joint -: left thumb fusion -: TIA feb 2016 - Family History Father -: Lung disease, Diabetes, Stroke Mother -: Lung disease - Social History Smoking Status: Former smoker (Quit in 1970) Alcohol use: No CD- Drugs: No Caffeine use: Yes Place of Residence: Home (With Spouse) Review of Systems General: Weakness, As per HPI Eyes: Other (Double vision for > 1yr) ENT: Unremarkable Respiratory: Unremarkable Cardiovascular: Other (dizziness x 1 yr) Gastrointestinal: Unremarkable Genitourinary: Unremarkable Musculoskeletal: As per HPI Integumentary: Unremarkable Neurological: As per HPI Physical Examination - Physical Exam General: Alert, Oriented x3 HEENT: Atraumatic, Normocephalic Neck: Supple, 2+ carotid pulse no bruit Respiratory: Clear to auscultation bilaterally Cardiovascular: Irregular heart rate/rhythm Capillary refill: <2 Seconds Gastrointestinal: Normal bowel sounds Musculoskeletal: Other (1 in incision to just left of midline to lower back, minimal ecchymosis, no tenderness, dried blood on the bandage) Integumentary: Other (as noted) Neurological: Other (left upper and lower weakness/drift) Lymphatics: No axilla or inguinal lymphadenopathy External genitalia: Deferred Rectal: Deferred - Studies Laboratory Data (last 24 hrs) 12/08/21 12:51: WBC 7.30, Hgb 13.3 L, Hct 39.4 L, Plt Count 250 12/08/21 12:51: Sodium 142, Potassium 4.2, BUN 23 H, Creatinine 1.21, Glucose 153 H, Magnesium 1.9, Total Bilirubin 0.3, AST 11 L, ALT 21, Alkaline Phosphatase 84 Assessment and Plan - Problems (Diagnosis) (1) CVA (cerebral vascular accident) Current Visit: Yes Status: Acute Plan: Consult Dr. Vides, folic acid 1mg daily, asa 81mg daily Qualifiers: CVA mechanism: unspecified Qualified Code(s): I63.9 - Cerebral infarction, unspecified (2) Encounter for postoperative wound care Current Visit: Yes Status: Acute Plan: Assess wound daily with dressing changes, CT with contrast of area from ED pending, Discharge Plan: Home Plan to discharge in: 48 Hours - Advance Directives Does patient have a Living Will: No Does patient have a Durable POA for Healthcare: No - Code Status/Comfort Care Code Status Assessed: Yes Time Spent Managing Pts Care (In Minutes): 70
--- NOTE | 2021-12-08 14:03 | RAD REPORT ---
EXAM DESCRIPTION: CT - Head angio - 12/08/2021 1:41 pm CLINICAL HISTORY: right leg weakness Headache, drowsiness COMPARISON: Ct Stroke Brain Wo Cont dated 12/08/2021; Head Brain Wo Cont dated 12/08/2018 TECHNIQUE: CT angiography of the head was performed with MIPs. All CT scans are performed using dose optimization technique as appropriate and may include automated exposure control or mA/KV adjustment according to patient size. FINDINGS: No evidence of aneurysm is detected. No flow-limiting stenosis or vascular malformation id entified. Antegrade flow is seen in the vertebral arteries. The vertebral arteries are left-sided dominant. The visualized dural venous sinuses are patent. IMPRESSION: No significant flow abnormality is detected.
--- NOTE | 2021-12-08 14:11 | RAD REPORT ---
EXAM DESCRIPTION: CT - Neck Angio - 12/08/2021 1:41 pm CLINICAL HISTORY: right leg weakness Headache, drowsiness COMPARISON: No comparisons TECHNIQUE: CT angiography of the neck vessels was performed with MIPs. All CT scans are performed using dose optimization technique as appropriate and may include automated exposure control or mA/KV adjustment according to patient size. FINDINGS: A left aortic arch is identified with normal three vessel configuration of the great vesse ls. No significant flow abnormality is seen of the common carotid bilaterally. Mild mixed plaque is seen left proximal internal carotid artery. No significant carotid stenosis is s een. Normal flow is seen within both vertebral arteries. IMPRESSION: No significant carotid stenosis evident. Small amount of mixed plaque is seen left carotid bulb.
--- NOTE | 2021-12-08 14:17 | RAD REPORT ---
EXAM DESCRIPTION: CT - Spine Lumbar W/Cont - 12/08/2021 1:42 pm CLINICAL HISTORY: Radiculopathy. recent surgery COMPARISON: No comparisons TECHNIQUE: Axial contrast-enhanced CT imaging of the lumbar spine was performed with coronal and sag ittal re-formatted images. All CT scans are performed using dose optimization technique as appropriate and may include automated exposure control or mA/KV adjustment according to patient size. FINDINGS: Prominent upper lumbar spine degenerative changes are seen with vacuum disc degeneration a nd posterior osteophyte. Postsurgical hardware is place spanning L3-S1. Anterior vertebral body screws are also noted at L5 and S1. Posterior laminectomy is seen at the L3 l evel. Lateral bony fusion masses are present spanning L3-S1. There is no evidence of hardware loosening. Mild fluid is seen posterior aspect of the midline surgic al defects which is not unusual. No pathologic enhancement seen. IMPRESSION: Postoperative lower lumbar spine is present without complication evident based on CT. Consider MRI follow-up for assessment of disc disease if clinically desired.
--- NOTE | 2021-12-08 14:51 | ER ---
Nurse's Notes [facility] Name: Rajesh Johansen Age: 81 yrs Sex: Male : 1940 Arrival Date: 12/08/2021 Time: 10:38 Bed 20 Private MD: Javier Cordon V Diagnosis: Weakness-right leg Presentation: 12/08 10:43 Chief complaint: Patient states: i think i had a stroke last night. i got up off the tw2 pot this morning and hit my head on the cabinet and i got a knot on the back of my head. watchman px done last year. i cant get my right hand or foot to do what i want them to do. Spouse and/or significant other states: when he went to bed he was ok. it was this morning it was worse and he couldn't get him to do what he wanted. Coronavirus screen: At this time, the client does not indicate any symptoms associated with coronavirus-19. Ebola Screen: Patient denies travel to an Ebola-affected area in the 21 days before illness onset. Initial Sepsis Screen: Does the patient meet any 2 criteria? No. Patient's initial sepsis screen is negative. Does the patient have a suspected source of infection? No. Patient's initial sepsis screen is negative. Risk Assessment: Do you want to hurt yourself or someone else? Patient reports no desire to harm self or others. Onset of symptoms was December 08, 2021. 10:43 Method Of Arrival: Wheelchair tw2 10:43 Acuity: SOHAM 3 tw2 10:49 Note pt reports taking no blood thinners at this time. copy of med list in chart. tw2 Triage Assessment: 10:48 General: Appears in no apparent distress. well groomed, Behavior is calm, cooperative, tw2 appropriate for age. Pain: Denies pain. Neuro: Level of Consciousness is awake, alert, obeys commands, Oriented to person, place, time, situation. Historical: - Allergies: 10:47 No Known Allergies; tw2 - Home Meds: 11:29 CoQ-10 100 mg oral cap twice a day [Active]; cosemine [Active]; multivitamin oral tw2 [Active]; tamsulosin 0.4 mg oral cap 1 cap once daily [Active]; pregabalin 75 mg Oral cap 1 cap 2 times per day [Active]; metformin 500 mg Oral tab 1 tab 2 times per day [Active]; pantoprazole 20 mg oral TbEC 1 tab once daily [Active]; ropinirole 0.5 mg oral tab 1 tab 3 times per day [Active]; 11:40 levothyroxine 50 mcg cap 1 cap once daily [Active]; Lasix 20 mg Oral tab 1 tab 2 times tw2 per day [Active]; rosagiline 1 mg one time daily for Parkinsons [Active]; metoprolol tartrate 25 mg Oral tab 1 tab once daily [Active]; carbidopa-levodopa 25-100 mg Oral TbER 1 tab 3 times per day [Active]; testosterone 2 mg once daily [Active]; trazodone oral once daily [Active]; - PMHx: 10:47 COPD; Diverticulitis; Hypertension; Hypothyroidism; watchman procedure; Parkinson's tw2 disease; - Immunization history:: Client reports receiving the 2nd dose of the Covid vaccine. - Social history:: Smoking status: Patient denies any tobacco usage or history of. Screenin:41 Abuse screen: Denies threats or abuse. Denies injuries from another. Nutritional ld1 screening: No deficits noted. Tuberculosis screening: No symptoms or risk factors identified. Fall Risk None identified. Assessment: 12:41 General: Appears in no apparent distress. comfortable, Behavior is calm, cooperative, ld1 appropriate for age. Pain: Denies pain. Neuro: Level of Consciousness is awake, alert, obeys commands, Oriented to person, place, time, situation. Cardiovascular: Capillary refill < 3 seconds Patient's skin is warm and dry. Rhythm is sinus rhythm. Respiratory: Airway is patent Respiratory effort is even, unlabored. GI: Abdomen is round non-distended. : No signs and/or symptoms were reported regarding the genitourinary system. EENT: No signs and/or symptoms were reported regarding the EENT system. Derm: No signs and/or symptoms reported regarding the dermatologic system. Musculoskeletal: No signs and/or symptoms reported regarding the musculoskeletal system. 13:45 Reassessment: Patient appears in no apparent distress at this time. Patient is alert, ld1 oriented x 3, equal unlabored respirations, skin warm/dry/pink. 14:56 Reassessment: Patient appears in no apparent distress at this time. Patient and/or ld1 family updated on plan of care and expected duration. Pain level reassessed. Patient is alert, oriented x 3, equal unlabored respirations, skin warm/dry/pink. 15:45 Reassessment: Patient appears in no apparent distress at this time. Patient and/or ld1 family updated on plan of care and expected duration. Pain level reassessed. 18:11 Reassessment: Patient appears in no apparent distress at this time. Patient and/or ld1 family updated on plan of care and expected duration. Pain level reassessed. Patient is alert, oriented x 3, equal unlabored respirations, skin warm/dry/pink. 19:00 Reassessment: Patient and/or family updated on plan of care and expected duration. Pain eh3 level reassessed. Patient is alert, oriented x 3, equal unlabored respirations, skin warm/dry/pink. Vital Signs: 10:43 BP 123 / 92; Pulse 89; Resp 17; Temp 98.2(TE); Pulse Ox 96% on R/A; Weight 85.73 kg tw2 (R); Height 5 ft. 8 in. (172.72 cm); 12:41 BP 130 / 75; Pulse 72; Resp 29; Pulse Ox 94% on R/A; ld1 13:45 BP 125 / 74; Pulse 79; Resp 17; Pulse Ox 93% on R/A; ld1 14:56 BP 135 / 81; Pulse 83; Resp 23; Pulse Ox 92% on R/A; ld1 15:45 BP 134 / 76; Pulse 81; Resp 28; Pulse Ox 95% on R/A; ld1 16:19 BP 130 / 74; Pulse 85; Resp 20; Pulse Ox 95% on R/A; ld1 18:11 BP 140 / 83; Pulse 74; Resp 28; Pulse Ox 97% on R/A; Pain 0/10; ld1 19:00 BP 128 / 77; Pulse 79; Resp 25; Pulse Ox 95% on R/A; eh3 20:00 BP 121 / 92; Pulse 76; Resp 29; Pulse Ox 94% on R/A; eh3 20:45 BP 128 / 81; Pulse 77; Resp 28; Pulse Ox 95% on R/A; eh3 10:43 Body Mass Index 28.74 (85.73 kg, 172.72 cm) tw2 NIH Stroke Scale Scores: 11:35 NIHSS Score: 3 cp ED Course: 10:38 Patient arrived in ED. rg4 10:39 Javier Cordon MD is Private Physician. rg4 10:47 Triage completed. tw2 10:47 Arm band placed on. tw2 11:10 Sylvain Llanos PA is PHCP. cp 11:10 Sylvain Carter MD is Attending Physician. cp 11:55 Ct Stroke Brain Wo Cont In Process Unspecified. EDMS 12:14 Stroke CXR 1 View In Process Unspecified. EDMS 12:26 Tsering Poole, SANDRA is Primary Nurse. ld1 12:41 Patient has correct armband on for positive identification. Placed in gown. Bed in low ld1 position. Call light in reach. Side rails up X2. morning babysitter on. Pulse ox on. NIBP on. Door closed. Noise minimized. Warm blanket given. 12:41 No provider procedures requiring assistance completed. ld1 13:04 Inserted saline lock: 20 gauge in left forearm, using aseptic technique. Blood ld1 collected. 13:43 CT Head Angio In Process Unspecified. EDMS 13:43 CT Neck Angio In Process Unspecified. EDMS 13:44 Spine Lumbar W/Cont In Process Unspecified. EDMS 14:49 Prince Thomson MD is Hospitalizing Provider. cp Administered Medications: 13:04 Drug: foLIC Acid 1 mg Route: IVPB; Site: left forearm; ld1 14:57 Follow up: Response: No adverse reaction ld1 13:04 Drug: Aspirin 81 mg Route: PO; ld1 14:57 Follow up: Response: No adverse reaction ld1 Medication: 12:41 VIS not applicable for this client. ld1 Outcome: 14:50 Decision to Hospitalize by Provider. cp 21:02 Patient left the ED. eh3 NIH Stroke Scale - NIH Stroke Score Date: 12/08/2021 Time: 11:35 Total Score = 3 1a. Level of Consciousness (LOC) - 0(Alert) 1b. Level of Consciousness (LOC) (Month \T\ Age) - 0(Both) 1c. LOC Commands (Open \T\ Closes Eyes/Sausage Grinder) - 0(Both) 2. Best Gaze (Lateral Gaze Paresis) - 0(Normal) 3. Visual Field Loss - 0(No visual loss) 4. Facial Palsy - 0(Normal) 5a. Left Arm: Motor (10-second hold) - 0(No drift) 5b. Right Arm: Motor (10-second hold) - 1(Drift) 6a. Left Leg: Motor (5-second hold - always test supine) - 0(No drift) 6b. Right Leg: Motor (5-second hold - always test supine) - 2(Drift, some effort against gravity) 7. Limb Ataxia (finger/nose \T\ heel/tolliver - test with eyes open) - 0(Absent) 8. Sensory Loss (pinprick arms/legs/face) - 0(Normal) 9. Best Language: Aphasia (description/naming/reading) - 0(No aphasia) 10. Dysarthria (speech clarity - read or repeat words) - 0(Normal) 11. Extinction and Inattention (visual/tactile/auditory/spatial/personal) - 0(No abnormality) Initials: cp Signatures: Dispatcher [employer] EDMS Sylvain Llanos PA PA cp Casie Brock RN RN tw2 Stacey Sandoval 4 Tsering Poole RN RN ld1 Joyce Milligan, RN RN eh3
--- NOTE | 2021-12-08 14:51 | EDPHYS ---
Physician Documentation [facility] Name: Rajesh Johansen Age: 81 yrs Sex: Male : 1940 Arrival Date: 12/08/2021 Time: 10:38 Bed 20 Private MD: Javier Cordon V ED Physician Sylvain Carter HPI: 12/08 11:32 This 81 yrs old Male presents to ER via Wheelchair with complaints of Fall Injury, cp Weakness. 11:32 The patient's problem is reported as weakness, in the right lower extremity. Onset: The cp symptoms/episode began/occurred this morning, about 0400. Duration: The episode is continuous. Context: symptoms became apparent while using restroom and caused patient to hit left side of head on bathroom cabinet. Associated signs and symptoms: Pertinent positives: chest pain. Patient's baseline: Neuro: alert and fully oriented, Motor: right-sided weakness, Ambulation: walks without assistance, Speech: normal, The patient has a previous history of TIA. Historical: - Allergies: 10:47 No Known Allergies; tw2 - Home Meds: 11:29 CoQ-10 100 mg oral cap twice a day [Active]; cosemine [Active]; multivitamin oral tw2 [Active]; tamsulosin 0.4 mg oral cap 1 cap once daily [Active]; pregabalin 75 mg Oral cap 1 cap 2 times per day [Active]; metformin 500 mg Oral tab 1 tab 2 times per day [Active]; pantoprazole 20 mg oral TbEC 1 tab once daily [Active]; ropinirole 0.5 mg oral tab 1 tab 3 times per day [Active]; 11:40 levothyroxine 50 mcg cap 1 cap once daily [Active]; Lasix 20 mg Oral tab 1 tab 2 times tw2 per day [Active]; rosagiline 1 mg one time daily for Parkinsons [Active]; metoprolol tartrate 25 mg Oral tab 1 tab once daily [Active]; carbidopa-levodopa 25-100 mg Oral TbER 1 tab 3 times per day [Active]; testosterone 2 mg once daily [Active]; trazodone oral once daily [Active]; - PMHx: 10:47 COPD; Diverticulitis; Hypertension; Hypothyroidism; watchman procedure; Parkinson's tw2 disease; - Immunization history:: Client reports receiving the 2nd dose of the Covid vaccine. - Social history:: Smoking status: Patient denies any tobacco usage or history of. ROS: 11:32 Constitutional: Negative for fever. cp 11:32 Neuro: Positive for headache, weakness, of the right leg. 11:32 Eyes: Negative for injury, pain, redness, and discharge. cp 11:32 ENT: Negative for drainage from ear(s), ear pain, sore throat, difficulty swallowing, difficulty handling secretions. 11:32 Cardiovascular: Negative for chest pain, edema, palpitations. 11:32 Respiratory: Negative for cough, shortness of breath, wheezing. 11:32 Abdomen/GI: Negative for abdominal pain, nausea, vomiting, and diarrhea. 11:32 Back: Negative for pain at rest, pain with movement. 11:32 All other systems are negative. Exam: 11:35 Constitutional: The patient appears in no acute distress, alert, awake, cp non-diaphoretic, non-toxic, well developed, well nourished. 11:35 Head/Face: Normocephalic, atraumatic. cp 11:35 Eyes: Periorbital structures: appear normal, Pupils: equal, round, and reactive to light and accomodation, Extraocular movements: intact throughout, Conjunctiva: normal, no exudate, no injection, Sclera: no appreciated abnormality, Lids and lashes: appear normal, bilaterally. 11:35 ENT: External ear(s): are unremarkable, Nose: is normal, Mouth: Lips: moist, Oral mucosa: pink and intact, moist, Posterior pharynx: Airway: no evidence of obstruction, patent. 11:35 Chest/axilla: Inspection: normal. 11:35 Cardiovascular: Rate: normal, Rhythm: regular, Edema: is not appreciated, JVD: is not appreciated. 11:35 Respiratory: the patient does not display signs of respiratory distress, Respirations: normal, no use of accessory muscles, no retractions, labored breathing, is not present, Breath sounds: are clear throughout, no decreased breath sounds, no stridor, no wheezing. 11:35 Abdomen/GI: Inspection: abdomen appears normal, Palpation: abdomen is soft and non-tender, in all quadrants. 11:35 Back: pain, is absent, ROM is normal. 11:35 Neuro: Orientation: to person, place \T\ time. Mentation: is normal, Motor: moves all fours, strength is 4/5 in the right leg, Sensation: no obvious gross deficits, Gait: not tested. 12:01 Radiologist reports: no acute findings cp 12:37 ECG was reviewed by the Attending Physician. Vital Signs: 10:43 BP 123 / 92; Pulse 89; Resp 17; Temp 98.2(TE); Pulse Ox 96% on R/A; Weight 85.73 kg tw2 (R); Height 5 ft. 8 in. (172.72 cm); 12:41 BP 130 / 75; Pulse 72; Resp 29; Pulse Ox 94% on R/A; ld1 13:45 BP 125 / 74; Pulse 79; Resp 17; Pulse Ox 93% on R/A; ld1 14:56 BP 135 / 81; Pulse 83; Resp 23; Pulse Ox 92% on R/A; ld1 15:45 BP 134 / 76; Pulse 81; Resp 28; Pulse Ox 95% on R/A; ld1 16:19 BP 130 / 74; Pulse 85; Resp 20; Pulse Ox 95% on R/A; ld1 18:11 BP 140 / 83; Pulse 74; Resp 28; Pulse Ox 97% on R/A; Pain 0/10; ld1 19:00 BP 128 / 77; Pulse 79; Resp 25; Pulse Ox 95% on R/A; eh3 20:00 BP 121 / 92; Pulse 76; Resp 29; Pulse Ox 94% on R/A; eh3 20:45 BP 128 / 81; Pulse 77; Resp 28; Pulse Ox 95% on R/A; eh3 10:43 Body Mass Index 28.74 (85.73 kg, 172.72 cm) tw2 NIH Stroke Scale Scores: 11:35 NIHSS Score: 3 cp MDM: 11:24 Patient medically screened. cp 11:34 ED course: Patient is not a tpa candidate as onset of right leg weakness was at 0400 cp today. 15:00 Data reviewed: vital signs, nurses notes, lab test result(s), EKG, radiologic studies, cp CT scan. 15:00 Test interpretation: by ED physician or midlevel provider: ECG, plain radiologic cp studies. 12/08 11:31 Order name: Basic Metabolic Panel; Complete Time: 13:37 cp 12/08 13:54 Interpretation: Normal except: GLUC 153; BUN 23; GFR 61. cp 12/08 11:31 Order name: CBC with Diff; Complete Time: 13:37 12/08 13:55 Interpretation: Normal except: HGB 13.3; HCT 39.4; RDW 19.6; MPV 6.5; NATHANIEL% 74.7. 12/08 11:31 Order name: CPK; Complete Time: 13:37 12/08 13:55 Interpretation: Reviewed. 12/08 11:31 Order name: Hepatic Function; Complete Time: 13:37 12/08 13:55 Interpretation: Normal except: AST 11; ALB 3.3; A/G 1.0. 12/08 11:31 Order name: Magnesium; Complete Time: 13:37 12/08 11:31 Order name: Protime (+inr); Complete Time: 13:54 12/08 13:54 Interpretation: Reviewed. 12/08 11:31 Order name: Ptt, Activated; Complete Time: 13:54 12/08 11:31 Order name: CT Stroke Brain w/o Contrast 12/08 11:31 Order name: Stroke CXR 1 View; Complete Time: 13:37 12/08 11:36 Order name: Ct Stroke Brain Wo Cont; Complete Time: 12:22 EDRI 12/08 12:22 Interpretation: Report reviewed. 12/08 11:46 Order name: SARS RAPID; Complete Time: 13:37 12/08 12:01 Order name: CT Head Angio; Complete Time: 14:47 12/08 13:01 Order name: Glucose, Ancillary Testing; Complete Time: 13:37 EDMS 12/08 13:56 Order name: Troponin High Sensitivity; Complete Time: 15:50 cp 12/08 15:50 Interpretation: Reviewed. 12/08 11:31 Order name: EKG; Complete Time: 11:32 cp 12/08 11:31 Order name: Accucheck; Complete Time: 13:04 12/08 11:31 Order name: Cardiac monitoring; Complete Time: 12:41 12/08 11:31 Order name: EKG - Nurse/Tech; Complete Time: 12:41 12/08 11:31 Order name: IV Saline Lock; Complete Time: 13:04 12/08 11:31 Order name: Labs collected and sent; Complete Time: 13:04 12/08 11:31 Order name: NPO; Complete Time: 12:27 12/08 11:31 Order name: O2 Per Protocol; Complete Time: 12:27 12/08 11:31 Order name: O2 Sat Monitoring; Complete Time: 12:27 12/08 11:31 Order name: Stroke Swallow Screen; Complete Time: 13:04 12/08 12:01 Order name: CT Neck Angio; Complete Time: 14:47 12/08 13:30 Order name: Spine Lumbar W/Cont; Complete Time: 14:47 EDMS EC:37 Rate is 71 beats/min. Rhythm is irregular. QRS interval is prolonged at 108 msec. QT cp interval is normal. T waves are Inverted in lead aVR. Interpreted by me. Reviewed by me. Administered Medications: 13:04 Drug: foLIC Acid 1 mg Route: IVPB; Site: left forearm; ld1 14:57 Follow up: Response: No adverse reaction ld1 13:04 Drug: Aspirin 81 mg Route: PO; ld1 14:57 Follow up: Response: No adverse reaction ld1 Disposition Summary: 12/08/21 14:50 Hospitalization Ordered Hospitalization Status: Observation cp Provider: Prince vidhya Thomson Location: Telemetry/MedSurg (observation) cp Condition: Stable cp Problem: new cp Symptoms: are unchanged cp Bed/Room Type: Standard cp Room Assignment: 411(12/08/21 20:06) cg Diagnosis - Weakness - right leg cp Forms: - Medication Reconciliation Form cp - SBAR form cp NIH Stroke Scale - NIH Stroke Score Date: 12/08/2021 Time: 11:35 Total Score = 3 1a. Level of Consciousness (LOC) - 0(Alert) 1b. Level of Consciousness (LOC) (Month \T\ Age) - 0(Both) 1c. LOC Commands (Open \T\ Closes Eyes/Energy Systems Engineer) - 0(Both) 2. Best Gaze (Lateral Gaze Paresis) - 0(Normal) 3. Visual Field Loss - 0(No visual loss) 4. Facial Palsy - 0(Normal) 5a. Left Arm: Motor (10-second hold) - 0(No drift) 5b. Right Arm: Motor (10-second hold) - 1(Drift) 6a. Left Leg: Motor (5-second hold - always test supine) - 0(No drift) 6b. Right Leg: Motor (5-second hold - always test supine) - 2(Drift, some effort against gravity) 7. Limb Ataxia (finger/nose \T\ heel/tolliver - test with eyes open) - 0(Absent) 8. Sensory Loss (pinprick arms/legs/face) - 0(Normal) 9. Best Language: Aphasia (description/naming/reading) - 0(No aphasia) 10. Dysarthria (speech clarity - read or repeat words) - 0(Normal) 11. Extinction and Inattention (visual/tactile/auditory/spatial/personal) - 0(No abnormality) Initials: cp Signatures: Dispatcher [employer] EDRaine Cortes FNP-C CAREER DEVELOPMENT DIRECTOR-Csnw Sylvain Llanos PA PA cp Piper Sandoval, RN RN cg Casie Brock RN RN tw2 Tsering Poole RN RN ld1 Corrections: (The following items were deleted from the chart) 20:06 14:50 cp cg
[2021-12-08] MEDS ORDERED: PANTOPRAZOLE 40MG TABLET PO ONE (19:50)
[2021-12-08] MEDS: METFORMIN ER 500 MG TAB PO SCH (19:50)
[2021-12-08] MEDS ORDERED: TRAZODONE 50 MG TABLET PO SCH (21:00)
[2021-12-08 21:03] LABS: NT PRO-BNP 1088 pg/mL (<450)
[2021-12-08 21:11] LABS: CKMB Creatine Kinase MB < 1.0 ng/mL (1.0-3.6)
[2021-12-08] MEDS: PREGABALIN 75 MG CAP PO SCH (21:56)
[2021-12-08] MEDS: FUROSEMIDE 20 MG TABLET PO SCH (21:57)
[2021-12-08] MEDS: ROPINIROLE HCL 0.25 MG TAB PO SCH (21:57)
[2021-12-08] MEDS: CARBIDOPA/LEVODOPA 25/100 TAB PO SCH (21:57)
[2021-12-09 02:29] VITALS: BMI 28.7
[2021-12-09 04:15] LABS: Absolute Lymphocytes (CBC) 1.4 K/uL (0.7-4.9); Hematocrit 40.4 % (39.6-49.0); Lymphocytes % 18.6 % (15.3-44.8); MCV 85.6 fL (80-100); MPV 6.7 fL (7.6-11.3); RBC Red Blood Cell Count 4.71 M/uL (4.33-5.43)
[2021-12-09 04:17] LABS: Protime INR 0.96
[2021-12-09 04:30] LABS: AST/SGOT 11 U/L (15-37); Albumin 3.2 g/dL (3.4-5.0); Alkaline Phosphatase 85 U/L (45-117); BUN Blood Urea Nitrogen 21 mg/dL (7-18); Bicarbonate 30 mmol/L (21-32); Bilirubin Total 0.4 mg/dL (0.2-1.0); Glomerular Filtration Rate 75 ml/min (=/>90); Glucose Level 136 mg/dL (74-106); Magnesium 1.8 mg/dL (1.8-2.4); Phosphorus 3.5 mg/dL (2.5-4.9); Potassium 4.2 mmol/L (3.5-5.1); Protein, Total 6.5 g/dL (6.4-8.2); Sodium Level 138 mmol/L (136-145)
[2021-12-09 04:34] LABS: ALT/SGPT < 10 U/L (12-78)
[2021-12-09] MEDS ORDERED: METOPROLOL XL 25 MG TAB PO SCH (06:00)
[2021-12-09] MEDS ORDERED: LEVOTHYROXINE SOD 0.05 MG TABLET PO SCH (06:30)
[2021-12-09] MEDS ORDERED: PNEUMOCOCCAL VACCINE 0.5 ML IMVAC ONE (08:00)
--- NOTE | 2021-12-09 08:40 | RAD REPORT ---
EXAM DESCRIPTION: MRI - MRA Head Wo Cont - 12/09/2021 8:12 am CLINICAL HISTORY: CVA, right-sided weakness, history of Parkinson's disease COMPARISON: None. TECHNIQUE: Axial and coronal 3D [id number] image acquisition was performed. 3D rotational images were generated with source and reconstruction images reviewed. Horizontal and vertical axis rotation al views generated using MIP protocol. FINDINGS: No aneurysm or vascular malformation identified. No named branch occlusion, vasculitis or other significant vascular process. No measurable atherosclerotic change. There is tortuosity of the basilar artery. Right posterior communicating artery is patent. Left vertebral artery is the dominant vessel. IMPRESSION: MRA head examination shows no significant finding.
--- NOTE | 2021-12-09 08:41 | RAD REPORT ---
EXAM DESCRIPTION: MRI - Brain Wo Cont - 12/09/2021 8:11 am CLINICAL HISTORY: eval for cva, right-sided weakness COMPARISON: MRA Head Wo Cont dated 12/09/2021; Ct Stroke Brain Wo Cont dated 12/08/2021 TECHNIQUE: Sagittal T1-weighted images were obtained along with axial PD, heavily T2-weighted and T2 -FLAIR images. Axial DWI and ADC mapping sequences were also obtained along with coronal heavily T2-w eighted images. FINDINGS: No intracranial hemorrhage, mass or acute infarction. There is no edema or shift of midlin e structures. No extra-axial fluid collections. Hayes-matter/white matter junction is preserved. Signa l voids are seen as a normal finding in the major intracranial vessels. No cortical edema or sulcal effacement seen. Chronic ischemic changes are minimal. Moderate atrophy c hanges are present predominantly involving the frontal lobes. Ventricles are in proportion to volume loss. Mastoid air cells and paranasal sinuses are clear. IMPRESSION: No acute or subacute infarction changes. No acute intracranial finding. A predominantly bifrontal moderate atrophy pattern is present. Ventricles are in proportion to volume loss.
[2021-12-09] MEDS: FUROSEMIDE 20 MG TABLET PO SCH (08:49)
[2021-12-09] MEDS: PREGABALIN 75 MG CAP PO SCH (08:49)
[2021-12-09] MEDS: ROPINIROLE HCL 0.25 MG TAB PO SCH (08:50)
[2021-12-09] MEDS: ASPIRIN EC 81 MG TAB PO SCH ×2 (08:50→09:00)
[2021-12-09] MEDS: METFORMIN ER 500 MG TAB PO SCH (08:50)
[2021-12-09] MEDS: CARBIDOPA/LEVODOPA 25/100 TAB PO SCH (08:50)
[2021-12-09] MEDS ORDERED: FOLIC ACID 1 MG TABLET PO SCH (09:00)
[2021-12-09] MEDS ORDERED: ENOXAPARIN 40 MG/0.4 ML SQ SCH (09:00)
[2021-12-09] MEDS ORDERED: TAMSULOSIN 0.4 MG SR CAP PO SCH (09:00)
--- NOTE | 2021-12-09 10:04 | P.PN ---
Subjective Date of Service: 12/09/21 Primary Care Provider: Dr. Cordon Chief Complaint: right sided weakness Patient is 81 years of age multiple medical problems scented to the emergency room with acute right-sided weakness right leg also gave out denies any pain he is alert responsive cooperative and a lumbar puncture done on is still draining Physical Examination - Vital Signs Temperature: 97.3 F Blood Pressure: 123/74 Pulse: 79 Respirations: 18 Pulse Ox (%): 91 - Studies Laboratory Data (last 24 hrs) 12/08/21 12:51: PT 10.6, INR 0.89, APTT 26.4 12/08/21 12:51: WBC 7.30, Hgb 13.3 L, Hct 39.4 L, Plt Count 250 12/08/21 12:51: Sodium 142, Potassium 4.2, BUN 23 H, Creatinine 1.21, Glucose 153 H, Magnesium 1.9, Total Bilirubin 0.3, AST 11 L, ALT 21, Alkaline Phosphatase 84 Assessment And Plan - Current Problems (Diagnosis) (1) Weakness Current Visit: Yes Status: Acute Plan: Patient is 81 years of age multiple medical problems presents with right-sided weakness extensive work-up including MRIs MRAs did not show any evidence of stroke or vascular stenosis labs chemistries unremarkable oxygen saturation is satisfactory
--- NOTE | 2021-12-09 12:01 | P.DS ---
Admission Date: 12/08/21 Discharge Date: 12/09/21 Primary Care Provider: Dr. Cordon Disposition: ROUTINE DISCHARGE Discharge Condition: FAIR Reason for Admission: right sided weakness - Problems (1) Weakness Current Visit: Yes Status: Acute Brief History of Present Illness: Patient admitted with worsening right-sided weakness Hospital Course: Patient is 81 years of age admitted with worsening weakness on the right side apparently has been weak for a number of years since his back surgery according to the he was unable to lift up his arm and leg CT and MRIs of the head and neck did not show any evidence of stroke or obstruction. Time of discharge present at the bedside is alert oriented responsive his weakness on the right side has improved laboratory data unremarkable and to be discharged follow-up with primary care no new medications Vital Signs/Physical Exam: Temp Pulse Resp BP Pulse Ox 97.3 F 79 18 123/74 91 12/09/21 08:00 12/09/21 08:00 12/09/21 08:00 12/09/21 08:00 12/09/21 08:00 Laboratory Data at Discharge: WBC 7.70 K/uL (4.3-10.9) 12/09/21 03:21 Hgb 13.6 g/dL (13.6-17.9) 12/09/21 03:21 Hct 40.4 % (39.6-49.0) 12/09/21 03:21 Plt Count 233 K/uL (152-406) 12/09/21 03:21 PT 10.6 SECONDS (9.5-12.5) 12/09/21 03:21 INR 0.96 12/09/21 03:21 APTT 29.1 SECONDS (24.3-36.9) 12/09/21 03:21 Sodium 138 mmol/L (136-145) 12/09/21 03:21 Potassium 4.2 mmol/L (3.5-5.1) 12/09/21 03:21 BUN 21 mg/dL (7-18) H 12/09/21 03:21 Creatinine 1.02 mg/dL (0.55-1.3) 12/09/21 03:21 Glucose 136 mg/dL (74-106) H 12/09/21 03:21 Phosphorus 3.5 mg/dL (2.5-4.9) 12/09/21 03:21 Magnesium 1.8 mg/dL (1.8-2.4) 12/09/21 03:21 Total Bilirubin 0.4 mg/dL (0.2-1.0) 12/09/21 03:21 AST 11 U/L (15-37) L 12/09/21 03:21 ALT < 10 U/L (12-78) L 12/09/21 03:21 Alkaline Phosphatase 85 U/L (45-117) 12/09/21 03:21 Home Medications: Tamsulosin [Flomax*] 0.4 mg PO BID 08/15/16 Metoprolol Succinate [Toprol Xl*] 25 mg PO DAILY 09/06/17 Multivitamin [Multivitamins] 1 each PO DAILY 09/06/17 Rasagiline Mesylate 1 mg PO DAILY 09/06/17 Ropinirole HCl [Requip*] 0.5 mg PO TID 09/06/17 Carbidopa/Levodopa [Carbidopa-Levodopa 25-100 Tab] 1 each PO TID 11/07/19 Furosemide [Lasix*] 20 mg PO BID 11/07/19 Levothyroxine [Synthroid*] 50 mcg PO [id number] 11/07/19 Metformin HCl [Glucophage*] 1,000 mg PO BID 11/07/19 Pantoprazole [Protonix Tab*] 40 mg PO DAILY 11/07/19 Pregabalin 75 mg PO BID 11/07/19 Atorvastatin Calcium [Lipitor] 40 mg PO BEDTIME 03/01/20 Aspirin [Aspirin EC 81 MG] 81 mg PO DAILY 03/07/21 Glucosamine/Chondroiti/Pitq259 [Cosamin Asu Capsule] 1 each PO DAILY 07/05/21 Loratadine [Allergy Relief] 10 mg PO DAILY 07/05/21 Trazodone HCl 100 mg PO BEDTIME 07/05/21 Ubidecarenone [Co Q-10] 200 mg PO DAILY 07/05/21 Followup: Javier Cordon MD [Primary Care Provider] -
--- NOTE | 2021-12-09 12:34 | EKG ---
Test Date: 2021-12-08 Test Time: 12:36:40 Videotape Editor: LEIGH MEASUREMENT RESULTS: Intervals: Rate: 71 IA: QRSD: 108 QT: 412 QTc: 447 [place]: P: IA: QRS: -63 T: 4 INTERPRETIVE STATEMENTS: Undetermined rhythm Left axis deviation Abnormal ECG Compared to ECG 02/08/2021 13:16:46 Sinus rhythm no longer present Sinus arrhythmia no longer present Ventricular premature complex(es) no longer present Left ventricular hypertrophy no longer present Electronically Signed On 12-09-21 12:32:29 CDT by Jay Acosta
[2021-12-10 04:22] VITALS: TEMP 98.2
[2021-12-10 04:43] VITALS: BP 128/81; O2SAT 95
--- NOTE | 2021-12-11 19:04 | CON ---
Date of Consultation: 12/09/2021 Reason For Consultation: Atrial fibrillation, weakness, and fall. History Of Present Illness: Mr. Johansen is a patient of Dr. Guzman and my office. Has had a Keily chman procedure for his atrial fibrillation. He has a history of COPD, hypertension, hypothyroidism, diverticulitis, and parkinsonism. Came in with weakness, atrial fibrillation. He has chronic pain, has seen Dr. Morelos for that. Apparently there is some plan for some kind of back therapy with Dr. Morelos. He has came in general weak and falling. Denied any chest pain. Denied any PND. Denied an y orthopnea. Denied any pedal edema. Denied any fever or chills. Denied any chest pain. Past Medical History: As stated above. Allergies: NONE. Review of Systems: Negative. Social History: Negative. Family History: Negative. Medications: Include Requip, Flomax, metoprolol, metformin, Synthroid, Lasix, Lipitor, and aspirin. Physical Examination: Vital Signs: Stable. He was afebrile. When I saw him; he was in sinus rhythm, 93% O2 saturation on room air. HEENT: Negative. Neck: Supple with no bruit. Chest: Clear to auscultation and percussion. Cardiac: Revealed a regular rhythm and rate. No murmurs, gallops, or rubs. Abdomen: Benign. Extremities: Revealed no clubbing, cyanosis, or edema. Diagnostic Data: So far BNP was 1088. Chest x-ray is negative. Neck and head CTA were negative. C T of the head was negative. MRI is pending. Impression And Plan: Weakness and falling, I think secondary to orthostatic hypotension. I would ibarra ggest he continue his home medication, but stop his Flomax. He does not need anticoagulation. He ne eds to continue beta-blockers. He is in sinus rhythm. Has had a Watchman. Has chronic obstructive pulmonary disease, hypertension, hypothyroidism, diverticulitis, and parkinsonism. All of those are well controlled. From my standpoint, he can go home whenever it is okay with Dr. Prince Thomson. I will see him in the office soon. Again, continue his home regimen, no Flomax. Follow up in the [facility] with Dr. Guzman. RADHA/PRATIBHA Voice ID: [id number] Report ID: [id number]
== END 2021-12-09 12:45 | disposition home or self-care (01) ==
LOC: ER 10:37 → ERHOLD 17:08 → INTOOBSV 17:08 → 4TH 20:27
PROVIDERS: ADMIT Internal Medicine; ATTEND Internal Medicine Sleep Medicine
DX: I63.9 Cerebral infarction, unspecified (principal); I48.20 Chronic atrial fibrillation, unspecified; I95.1 Orthostatic hypotension; J44.9 Chronic obstructive pulmonary disease, unspecified; I10 Essential (primary) hypertension; E03.9 Hypothyroidism, unspecified; G20 Parkinson's disease; K57.92 Diverticulitis of intestine, part unspecified, without perforation or abscess without bleeding; R29.703 NIHSS score 3; Z20.822 Contact with and (suspected) exposure to COVID-19; Z86.73 Personal history of transient ischemic attack (TIA), and cerebral infarction without residual deficits
CPT/HCPCS: 36415; 70450; 70496; 70498; 70544; 70551; 71045; 72132; 80048; 80053; 80076; 82550; 82553; 82947; 83735; 83880; 84100; 84443; 84484; 85025; 85610; 85730; 87811; 93005; 96374; 99284; G0378; J1650; Q9967

== ENCOUNTER 2022-02-01 20:25 | Observation (INO) | payer OTHER ==
--- OUTSIDE RECORDS SUMMARY | 2022-02-01 20:42 | XMS REPORT | Continuity of Care Document ---
:1940 Author Organization [facility] t Address [address] [place] [address] [address]. [address] [place] [address] Care Team Providers Name Role Phone Neris Anderson Fabian Primary Care Physician JANY CORONEL Attending Clinician Unavailable Agnieszka Gonsales MD Attending Clinician Addison Vance MD Attending Clinician Sarmad Ballesteros Attending Clinician Unavailable PAM WHITFIELD Attending Clinician Unavailable Therapy, [facility] Attending Clinician Unavailable Pam Whitfield MD Attending Clinician Doctor Unassigned, Hadar Attending Clinician Unavailable Rasheeda Cabello MA Attending Clinician Unavailable Viraj Guzman Attending Clinician Unavailable Cinda Willard MA Attending Clinician Unavailable JANY CORONEL M.D. Attending Clinician Unavailable HARINDER LITTLE M.D. Attending Clinician Unavailable FRED BROWN M.D. Attending Clinician Unavailable SEAMUS GUILLEN Attending Clinician Unavailable AGNIESZKA GONSALES M.D. Attending Clinician Unavailable JANY CORONEL Attending Clinician Unavailable AGNIESZKA GONSALES Attending Clinician Unavailable MD SEAMUS GUILLEN Attending Clinician Unavailable DEYVI BROWN Attending Clinician Unavailable NABIL YAO M.D. Attending Clinician Unavailable DICK LIZAMA M.D. Attending Clinician Unavailable PREM BRUSH M.D. Attending Clinician UnavailMEGGAN Hussein M.D. Attending Clinician Unavailable RADHA HYMAN M.D. Attending Clinician Unavailable DAV MEDRANO M.D. Attending Clinician Unavailable FABIAN CORDON Admitting Clinician Unavailable Fabian Cordon V Admitting Clinician Unavailable SEAMUS GUILLEN Admitting Clinician Unavailable MD SEAMUS GUILLEN Admitting Clinician Unavailable Payers Payer Name Policy Type Policy Number Effective Date Expiration Date Padmini barger [facility] MEDIC[facility] [id number] 2020 ADVANTAGE 00:00:00 Problems Condition Condition Condition Status Onset Resolution Last Treating Co mments Source Name Details Category Date Date Treatment Clinician Date CHRONIC CHRONIC Diagnosis Active 2019-11-19 Memoria COUGH COUGH 11-10 08:45:00 l Active 00:00: Indra 11/11/2019 00 [facility] G95.9 / G95.9 / Diagnosis Active 2019-11-03 Memoria R26.81 / R26.81 / 10-21 12:34:00 l M47.14 / M47.14 / 00:00: Oleksandr napoles Z98.1 / Z98.1 / 00 M54.5 M54.5 Active 10/22/2019 [facility] DX; DX; Diagnosis Active 2019-04-08 Mem oria R06.02=WILIAN R06.02=WILIAN 1-06 12:27:00 l RTNESS OF RTNESS OF 00:00: Mykel butterfield BREATH BREATH 00 Active 03/31/2019 [facility] Prostate Prostate Disease Active 2018-03 Metho di cancer cancer 05-21 00:00: Hospita 00 l SOB SOB Diagnosis Active 2018-032019-03-13 Mem oria Active 05-08 21:56:00 l 03/07/2019 00:00: [place]andr napoles [address] [id number], [id number], Diagnosis Active 2018-05-17 M emoria [id number], [id number], 05-08 13:50:00 l LEFT LEFT 00:00: Indra SHOULDER SHOULDER 00 GLENOHUMER GLENOHUMER AL AL Active 05/08/2018 [facility] UNK UNK Diagnosis Active 2018-05-06 Mem oria Active 04-24 09:14:00 l 04/24/2018 00:00: Oleksandr napoles 00 [facility] DX: LUNG DX: LUNG Diagnosis Active 2018-05-02 Memoria NODULE NODULE 04-24 12:19:00 l Active 00:00: Indra 04/24/2018 00 [facility] K21.9 K21.9 Diagnosis Active 2018-04-24 Mem oria Active 04-11 10:17:00 l 04/11/2018 00:00: Oleksandr napoles [address] R06.00 - R06.00 - Diagnosis Active 2017-06-01 Memoria DYSPNEA, DYSPNEA, - 14:00:00 l UNSPECIFIE UNSPECIFIE 00:01: Hector solorio D D Active 00 05/31/2017 [place] [id number], [id number], Diagnosis Active 2017-05-23 Me moria RIGHT RIGHT 05-14 22:01:00 l SHOULDER SHOULDER 00:00: Oleksandr napoles INFECTED INFECTED 00 REVERSE S REVERSE S Active 05/14/2017 [facility] [id number] [id number]- Diagnosis Active 2017-05-10 Me moria RIGHT RIGHT 04-30 22:01:00 l SHOULDER SHOULDER 00:00: Oleksandr napoles SOFT SOFT 00 TISSUE TISSUE INFECT INFECT Active 04/30/2017 [facility] RIGHT RIGHT Diagnosis Active 2017-04-13 Mem oria SHOULDER SHOULDER - 11:40:00 l TOTAL TOTAL 00:00: Indra REVISION REVISION 00 Active 04/13/2017 [facility] SHOULDER SHOULDER Diagnosis Active 2017-04-13 Memoria PAIN PAIN - 11:40:00 l Active 00:00: Indra 04/13/2017 00 [facility] RT RT Diagnosis Active 2016-032017-03-18 Mem oria SHOULDER SHOULDER - 18:33:00 l PAIN PAIN 00:00: [place] Active 00 03/18/2017 [facility] Indra BLEEDING BLEEDING Diagnosis Active 2016-032017-01-29 Memoria INCISION INCISION 03-31 04:40:00 l Active 00:00: Indra 01/29/2017 00 [facility] Indra R06.00 R06.00 Diagnosis Active 2016-032017-05-02 Me moria Active 15:00:00 l 01/19/2017 00:00: Oleksandr BROWN [address] [address]- Diagnosis Active 2016-032017-01-26 Me moria RIGHT RIGHT 0 13:42:00 l SHOULDER SHOULDER 00:00: Oleksandr napoles IRREPARABL IRREPARABL 00 E ROTATO E ROTATO Active 01/09/2017 [facility] DC F/U REQ DC F/U Diagnosis Active [...] 04-11 16:03:00 l 02/10/2016 00:00: Oleksandr napoles [address] NON-UNION NON-UNION Diagnosis Active 2015-032016-03-16 Memoria OF OF 03-29 23:03:00 l PREVIOUS PREVIOUS 00:00: lOeksandr napoles LUMBAR LUMBAR 00 FUSION, FUSION, FOR FOR Active 01/28/2016 [facility] Z98.1 - Z98.1 - Diagnosis Active 2015-11-10 Memoria ARTHRODESI ARTHRODESI 11-03 14:04:00 l S STATUS S STATUS 00:01: lOeksandr napoles Active 00 11/04/2015 [facility] [place] History of History of Problem Resolve UT [...] s of right of right shoulder shoulder Asthma-AUTOMATION QA TESTER Asthma-AUTOMATION QA TESTER Problem Active U T D overlap D [...] History of History of Problem Resolve [facility] ysici cquired cquired ans pneumonia [...] (finding) (finding) Herm greer Active Problem 11/24/2019 [facility], Juan F Cruz [facility] [address] [address] [address] Out[facility] [place]^^^ ^^^^^^[id number], OPID Indra, [place], OPID Juan F Cruz [facility] HEART HEART Diagnosis Active 2019-03-13 Mem oria FAILURE, FAILURE, 21:56:00 l UNSPECIFIE UNSPECIFIE He rmann D D Active [facility] RADICULOPA RADICULOP Diagnosis Active 2016-03-16 Memoria THY, ATHY, 23:03:00 l LUMBAR LUMBAR Indra REGION REGION Active [facility] OTHER OTHER Diagnosis Active 2016-03-16 Mem oria BIOMECHANI BIOMECHANI 23:03:00 l MAHENDRA MAHENDRA [place] LESIONS OF LESIONS OF LUMBAR RE LUMBAR RE Active [facility] SHORTNESS SHORTNESS Diagnosis Active 2016-02-15 Memoria OF BREATH OF BREATH 16:03:00 l Active [facility] OTHER OTHER Diagnosis Active 2016-03-29 Mem oria MALAISE MALAISE 22:24:00 l Active Oleksandr n [facility] INTCRAN INTCRAN Diagnosis Active 2017-09-16 Memoria INJ W/O INJ W/O 13:15:00 l LOSS OF LOSS OF [place] CONSCIOUSN CONSCIOUSN ESS, I ESS, I Active [facility] ILLNESS, ILLNESS, Diagnosis Active 2018-05-17 Memoria UNSPECIFIE UNSPECIFIE 13:50:00 l D D Active [facility] DYSPNEA, DYSPNEA, Diagnosis Active 2017-05-02 Memoria UNSPECIFIE UNSPECIFIE 15:00:00 l D D Active [facility] INFECT/INF Diagnosis Active 2017-05-23 Memoria LM INFECT/INF 22:01:00 l REACTION LM Indra DUE TO OTH REACTION INTERNA DUE TO OTH INTERNA Active [facility] SOLITARY SOLITARY Diagnosis Active 2018-05-02 Memoria PULMONARY PULMONARY 12:19:00 l NODULE NODULE [place] Active [facility] ENLARGED ENLARGED Diagnosis Active 2018-05-02 Memoria LYMPH LYMPH 12:19:00 l NODES, NODES, Indra UNSPECIFIE UNSPECIFIE D D Active [facility] Synovitis Synovitis Problem 2018-11-06 Memoria and and 11:48:55 l tenosynovi tenosynovi He rmann tis, tis, unspecifie unspecifie d d 11/06/2018 [facility] Out[facility] [place]^^^ ^^^^^^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 11:15:50 l disorders disorders Herm greer with with radiculopa radiculopa thy, thy, lumbar lumbar region region 11/04/2018 [facility] [place] Hyperlipid Hyperlipi Problem 2017-08-13 Memoria emia, demia, 12:19:11 l unspecifie unspecifie He rmann d d 08/13/2017 [facility] Hypothyroi Hypothyro Problem 2017-08-13 Memoria dism, idism, 12:19:11 l unspecifie unspecifie He rmann d d 08/13/2017 [facility] Essential Essential Problem 2017-08-24 Memoria (primary) (primary) 12:51:25 l hypertensi hypertensi He rmann on on 08/24/2017 [facility] Personal Personal Problem 2017-08-24 Memoria history of history of 12:51:25 l nicotine nicotine Oleksandr napoles dependence dependence 08/24/2017 [facility] Acute Acute Problem 2017-08-24 Memor ia posthemorr posthemorr 12:51:25 l garcia Burrell anemia anemia 08/24/2017 [facility] Other Other Problem 2017-08-24 Memor ia streptococ streptococ 12:51:25 l mahendra mahendra Indra arthritis, arthritis, right right shoulder shoulder 08/24/2017 [facility] Emphysema, Emphysema [facility] , 12:51:25 l d unspecifie Oleksandr n d 08/24/2017 [facility] Unspecifie Unspecifi Problem 2017-08-24 Memoria d ed 12:51:25 l streptococ streptococ He rmann cus as the cus as the cause of cause of diseases diseases classified classified elsewhere elsewhere 08/24/2017 [facility] Body mass Body Problem 2017-08-24 Me moria index mass index 12:51:25 l (BMI) (BMI) Indra 30.0-30.9, 30.0-30.9, adult adult 08/24/2017 [facility] 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 12:51:25 l itis, itis, [place] right right shoulder shoulder 08/24/2017 [facility] 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 04/25/2018 GUALBERTO Cruz Enlarged Enlarged Problem 2018-11-20 Memoria lymph lymph 11:21:30 l nodes, nodes, [place] unspecifie unspecifie d d 11/20/2018 [facility] Other Other Problem 2018-11-20 Memor ia specified specified 11:21:30 l diseases diseases Oleksandr n of liver of liver 11/20/2018 [facility] Major Major Problem 2017-08-13 King kristina depressive depressive 12:19:11 l disorder, disorder, Herm greer single single episode, episode, unspecifie unspecifie d d 08/13/2017 [facility] Enlarged Enlarged Problem 2017-08-13 Memoria prostate prostate 12:19:11 l without without [place]ell lower lower urinary urinary tract tract symptoms symptoms 08/13/2017 [facility] Insomnia, Insomnia, Problem 2017-08-13 Memoria unspecifie unspecifie 12:19:11 l d d Indra 08/13/2017 [facility] Encounter Encounter Problem 2017-08-13 Memoria for for 12:19:11 l immunizati immunizati rmann on on 08/13/2017 [facility] Final: Final: Problem 2016-03-27 King kristina Other Other 01:40:36 l malaise malaise Indra 03/27/2016 [facility] Diverticul Diverticu Problem Resolve 2019-11-24 Memoria itis litis d 07:29:09 l (disorder) (disorder) He rmann Resolved Problem 11/24/2019 [facility], Juan F Cruz [facility] Outpatient [facility] [place]^^^ ^^^^^^[id number], [facility], GUALBERTO Burrell,[facility], [facility] Chronic Chronic Problem Active 2019-11-24 Me moria obstructiv obstructiv 07:29:09 l e lung e lung [place] disease disease (disorder) (disorder) Active Problem 11/24/2019 [facility],Count includes the [facility] Outpatient [facility] [place]^^^ ^^^^^^[id number], GUALBERTO Burrell,[facility], [facility] Gastric Gastric Problem Active 2019-11-24 Dc moria reflux reflux 07:29:09 l (finding) (finding) Herm greer Active Problem 11/24/2019 [facility],Count includes the [facility] Out[facility] [place]^^^ ^^^^^^[id number], SIDDHARTHA, GUALBERTO Burrell,[facility], [facility] Hyperlipid Hyperlipi Problem Active 2019-11-24 Memoria emia demia 07:29:09 l (disorder) (disorder) He rmann Active Problem 11/24/2019 [facility] Out[facility] [place]^^^ ^^^^^^[id number], [facility], GUALBERTO Burrell,[facility], [facility] Hypertensi Problem Active 2019-11-24 M emoria ve Hypertensi 07:29:09 l disorder, ve [place] systemic disorder, arterial systemic (disorder) arterial (disorder) Active Problem 11/24/2019 [facility] [place]^ ^^^^^^[id number], GUALBERTO Burrell,[facility], [facility] Hypothyroi Hypothyro Problem Active 2019-11-24 Memoria dism idism 07:29:09 l (disorder) (disorder) He rmann Active Problem 11/24/2019 [facility] [place]^^^ ^^^^^^[id number], [facility], GUALBERTO Burrell,[facility], [facility] Lumbar Lumbar Problem Active 2019-11-24 King kristina radiculopa radiculopa 07:29:09 l thy thy Indra (disorder) (disorder) Active Problem 11/24/2019 [facility],Count includes the [facility] [place]^^^ ^^^^^^[id number], [facility], GUALBERTO Burrell,[facility], [facility] Nancy,[facility] Benign Benign Problem Active 2019-11-24 King kristina prostatic prostatic 07:29:09 l hyperplasi hyperplasi He rmgreer a a (disorder) (disorder) Active Problem 11/24/2019 [facility],Count includes the [facility] Out[facility] [place]^^^ ^^^^^^[id number], [facility], GUALBERTO Burrell,[facility], [facility] Nancy,[facility] Parkinson' Parkinson Problem Active 2019-11-24 Memoria s disease 's disease 07:29:09 l (disorder) (disorder) He rmann Active Problem 11/24/2019 [facility] [place]^^^ ^^^^^^[id number], GUALBERTO Burrell,[facility], [facility] Cerebrovas Cerebrova Problem Resolve 2016-2019-11-24 2019-11-24 Memoria cular scular d 2-01 07:29:09 07:29:09 l accident accident 00:00: Oleksandr n (disorder) (disorder) 00 Resolved 02/24/2016 Problem 11/24/2019 2 days after back surgery [facility] Out[facility] [place]^^^ ^^^^^^[id number], GUALBERTO Burrell,[facility], [facility] GUALBERTO Cruz,[facility] History of Past Illness Condition Condition Condition Status Onset Resolution Last Treating Co mments Source Name Details Category Date Date Treatment Clinician Date Dyspnea, Dyspnea, Problem 2017-2018-04-25 2018-04-25 Memoria unspecifie unspecifie 3-16 14:53:40 14:53:40 l d d 04:38: Indra 06/08/2017 05 04/25/2018 KEVIN GUALBERTO Cruz Infection Infection Problem 2017-08-24 2017-08-24 Memoria and and 05-25 12:51:25 12:51:25 l inflammato inflammato 04:51: He osmin ry ry 18 reaction reaction due to due to other other internal internal joint joint prosthesis prosthesis , initial , initial encounter encounter 05/25/2017 08/24/2017 [facility] Infection Infection Problem 2017-08-13 2017-08-13 Memoria following following 05-15 12:19:11 12:19:11 l a a 04:46: Indra procedure, procedure, 50 initial initial encounter encounter 05/15/2017 8 [facility] Other Other Problem 2017-07-20 2017-07-20 M emoria specified specified 04-18 20:43:45 20:43:45 l complicati complicati 05:15: Hector solorio on of on of 14 internal internal orthopedic orthopedic prosthetic prosthetic devices, devices, implants implants and and grafts, grafts, initial initial encounter encounter 04/18/2017 8 [facility] Anterior Anterior Problem 2016-032017-03-21 2017-03-21 Memoria dislocatio dislocatio 05-19 02:24:13 02:24:13 l n of right n of right 06:00: Hector solorio humerus, humerus, 00 initial initial encounter encounter 03/18/2017 03/21/2017 [facility] Encounter Encounter Problem 2016-032017-02-01 2017-02-01 Memoria for other for other 03-31 02:39:43 02:39:43 l specified specified 06:00: Mykel butterfield aftercare aftercare 00 01/29/2017 02/01/2017 KEVIN Cruz Allergies, Adverse Reactions, Alerts Allergy Allergy Status Severity Reaction(s) Onset Inactive Treating Comm ents Source Name Type Date Date Clinician No Known DA Active [facility] No Known DA Active [facility] Allergie 2-08 Clear s 00:00: [place] 00 [facility] Demerol Allergy Active [facility] to drug Physici (finding ans ) NO KNOWN Drug Active Univers ALLERGIE Class ity of S [facility] Family History Family Member Diagnosis Comments Start Date Stop Date Source Natural father [facility] Natural mother [facility] Father Family history of [facility] Type 2 diabetes mellitus without complication, without long-term current use of insulin Father Family history of [facility] emphysema Father Family history of [facility] retinal detachment Mother Family history of [facility] emphysema Social History Social Habit Start Date Stop Date Quantity Comments Source History of tobacco 1953-03-26 Cigarette Smoker [facility] use 00:00:00 [facility] Exposure to Not sure [facility] SARS-CoV-2 (event) History SDOH [facility] Alcohol Frequency Hospita l History SDOH [facility] Alcohol Std Drinks Hospit al History SDMA [facility] Alcohol B[facility] Alcohol intake 2020-09-09 2020-09-09 Ex-drinker [facility] 00:00:00 00:00:00 (finding) Hospital Cigarettes smoked 2019-07-23 2019-07-23 [facility] current (pack per 00:00:00 00:00:00 Hospita l day) - Reported Cigarette 2019-07-23 2019-07-23 [facility] pack-years 00:00:00 00:00:00 Hospital Alcohol Comment 2019-07-23 2019-07-23 Used to drink [facility] ist 00:00:00 00:00:00 occasionally Hospital Tobacco use and 2019-07-23 2019-07-23 Smokeless tobacco Me [facility] exposure 00:00:00 00:00:00 non-user Hospital Social History 2016-03-18 2016-03-18 [facility] 00:40:19 00:40:19 Sex Assigned At [birth year] [facility] 00:00:00 00:00:00 Smoking Status Start Date Stop Date Source Ex-smoker (finding) [place] [facility] Tobacco smoking consumption unknown [facility] Heavy tobacco smoker 2019-07-23 00:00:00 [facility] Medications Ordered Filled Start Stop Current Ordering Indication Dosage Frequency Signature Comments Components Source Medication Medication Date Date Medication? Clinician (SIG) Name Name anastrozole No [id number] 1mg Q7D Take 1 [facility] (ARIMIDEX) 03-29- tablet (1 st 1 mg chemo 00:00: 04:59 mg total) H ospita tablet 00 :00 by mouth l once a week for 180 days. anastrozole 2021- No [id number] 1mg Q7D Take 1 [facility] (ARIMIDEX) 03-29- tablet (1 st 1 mg chemo 00:00: 04:59 mg total) H ospita tablet 00 :00 by mouth l once a week for 180 days. anastrozole 2021- No [id number] 1mg Q7D Take 1 [facility] (ARIMIDEX) 03-29 tablet (1 st 1 mg chemo 00:00: 04:59 mg total) H ospita tablet 00 :00 by mouth l once a week for 180 days. anastrozole No [id number] 1mg Q7D Take 1 [facility] (ARIMIDEX) 03-29 tablet (1 st 1 mg chemo 00:00: 04:59 mg total) H ospita tablet 00 :00 by mouth l once a week for 180 days. [facility] No [id number] INJECT 1 [facility] e cypionate 2-27 06-26 ML (200 MG s t (DEPOTESTOT 00:00: 04:59 TOTAL) IN Hospita ERONE 00 :00 MUSCLE OF l CYPIONATE) THE 200 mg/mL SHOULDER, injection THIGH, OR BUTTOCKS EVERY 7 DAYS [facility] No [id number] INJECT 1 [facility] e cypionate 2-27 06-26 ML (200 MG s t (DEPOTESTOT 00:00: 04:59 TOTAL) IN Hospita ERONE 00 :00 MUSCLE OF l CYPIONATE) THE 200 mg/mL SHOULDER, injection THIGH, OR BUTTOCKS EVERY 7 DAYS [facility] 2020[facility]03- No [id number] INJECT 1 [facility] e cypionate 2-27 06-26 ML (200 MG s t (DEPOTESTOT 00:00: 04:59 TOTAL) IN Hospita ERONE 00 :00 MUSCLE OF l CYPIONATE) THE 200 mg/mL SHOULDER, injection THIGH, OR BUTTOCKS EVERY 7 DAYS testosteron 2020-03- No [id number] INJECT 1 [facility] e cypionate 2-27 06-26 [...] 00:00: week. Hospi ta Bevel 00 l [place]) 18 gauge x 1 1/2" needle syringe 2020-03 Yes 1{each} Q7D 1 each Metho di with needle 2-[address] (BD Eclipse 00:00: week. Hospi ta Luer-Ranjit) 3 00 l mL 23 x 1" syringe sildenafiL 2020-03 Yes 100mg Take 1 Meth alexandre (VIAGRA) 2-[address] 100 MG 00:00: (100 mg Hospita tablet total) by l mouth as needed for erectile dysfunctio n. needle, 2020-03 Yes 1{each} Q7D 1 each Metho di disp, 18 G 2-[address] (BD Regular 00:00: week. Hospi ta Bevel 00 l [place]) 18 gauge x 1 1/2" needle syringe [...] 00:00: week. Hospi ta Bevel 00 l [place]) 18 gauge x 1 1/2" needle syringe [...] 00:00: week. Hospi ta Bevel 00 l [place]) 18 gauge x 1 1/2" needle syringe [...] once a week for 180 days. casirivimab 2021- No [id number] 1200mg 1,200 mg, Univers -imdevimab 12-09 Subcutaneo it y of (REGEN-COV 19:15: 18:05 [...] 09:54: capsule Hosp jerson 57 l revefenacin 0 Yes 3 ml Method i (Yupelri) 12-06 st 175 mcg/3 09:54: Hospita mL solution 57 l for nebulizatio n dexlansopra Yes 1 capsule M ethodi zole 12-06 st (Dexilant) 09:54: Hospita 60 mg 57 l capsule levothyroxi 0 Yes 1 tablet Me thodi ne 12-[address] (SYNTHROID) 09:54: morning on Hospita 50 mcg 57 an empty l tablet stomach metFORMIN Yes metformin Met hodi XR 12-[address] (GLUCOPHAGE 09:54: tablet,ext Hospita -XR) 500 mg 57 ended l 24 hr release 24 tablet hr rasagiline 0 Yes 1 tablet Met hodi (AZILECT) 1 12-06 st MG tablet 09:54: Hospita 57 l tamsulosin 0 Yes 1 capsule Me thodi (FLOMAX) 12-06 st 0.4 mg 09:54: Hospita capsule 57 l atorvastati 0 Yes atorvastat [facility] n (LIPITOR) 12-[address] 40 mg 09:54: tablet Hospita tablet 57 l fluticasone 2021-0 Yes fluticason [facility] propionate 12-[address] [...] MG tablet 09:54: Hospita 57 l tamsulosin 0 Yes 1 capsule Me thodi (FLOMAX) 12-06 [...] l capsule levothyroxi Yes 1 tablet Me thalexandre ne 12-[address] (SYNTHROID) 09:54: [...] 09:54: Hospita 57 l testosteron 2020- No [id number] INJECT 1 Method[facility] e cypionate 11-23 12-27 ML (200 MG s t (DEPOTESTOT 00:00: 00:00 TOTAL) IN Hospita ERONE 00 :00 MUSCLE OF l CYPIONATE) THE 200 mg/mL SHOULDER, injection THIGH, OR BUTTOCKS EVERY 7 DAYS testosteron 2020- No [id number] INJECT 1 Methodi e cypionate 8 12-27 ML (200 MG s t (DEPOTESTOT 00:00: 00:00 TOTAL) IN Hospita ERONE 00 :00 MUSCLE OF l CYPIONATE) THE 200 mg/mL SHOULDER, injection THIGH, OR BUTTOCKS EVERY 7 DAYS testosteron 2020- No [id number] INJECT 1 Methodi e cypionate 8 12-27 ML (200 MG s t (DEPOTESTOT 00:00: 00:00 TOTAL) IN Hospita ERONE 00 :00 MUSCLE OF l CYPIONATE) THE 200 mg/mL SHOULDER, injection THIGH, OR BUTTOCKS EVERY 7 DAYS testosteron 2020- No [id number] INJECT 1 Methodi e cypionate 8- 12-27 ML (200 MG s t (DEPOTESTOT 00:00: 00:00 TOTAL) IN Hospita ERONE 00 :00 MUSCLE OF l CYPIONATE) THE 200 mg/mL SHOULDER, injection THIGH, OR BUTTOCKS EVERY 7 DAYS testosteron 2020- No [id number] 200mg Q7D Inject 1 Methodi e cypionate 702 08-31 mL (200 mg s t (Depo-Testo 00:00: 00:00 total) Hos manoj sterone) 00 :00 into the l 200 mg/mL shoulder, injection thigh, or buttocks once a week for 90 days. carbidopa-l 2020- No 1{tbl} Q.[id number] Take 1 Methodi evodopa 09-[id number] (SINEMET) 11:53: 00:00 3D mouth 3 [facility]osp [facility]erson 25-100 mg 40 :00 (three) l per tablet times a day. apixaban 2020- No Q.5D Take by Maria Fernanda vasquez (ELIQUIS) 09-[address] 2.5 mg 11:53: 00:00 (two) Hospita tablet 40 :00 times a l day. azithromyci 2020- No 250mg QD Take 250 Methodi n 09-09 mg by (ZITHROMAX) 11:53: 00:00 mouth [facility]osp jerson 250 [...] 7 days for 90 days. Breo Breo 2020-0 Yes RUCKSHANDA QD USE 1 [facility] Ellipta Ellipta 4-01 HOMER Beltran INHALATION Physici 100-25 100-25 [...] 45 times a l capsule day. levothyroxi 2020-0 Yes 50ug QD Take 50 Met praveeni ne 3-[address] (SYNTHROID, 11:13: mouth Hospi ta LEVOXYL) 50 45 daily. l mcg tablet cannabidiol 2020-0 Yes Q.5D Take by Met gillespie CBD, 3-[address] extract 100 11:13: (two) Hospi ta mg/mL 45 times a l solution day. ipratropium 2020-0 Yes 3mL Q.[id number] Take 3 mL Methodi -albuterol 3-[id number] (DUO-NEB) 11:13: 3D nebulizati Ho [...] l times a day with meals. simvastatin 2020-0 Yes Take by Met verna (ZOCOR) 10 3-[address] MG tablet [...] cannabidiol 2020-0 Yes Q.5D Take by Met verna , CBD, 3-[address] extract 100 11:13: (two) Hospi ta mg/mL 45 times a l solution day. ipratropium 2020-0 Yes 3mL Q.[id number] Take 3 mL Methodi -albuterol 3-[id number] (DUO-NEB) 11:13: 3D nebulizati Ho [...] with meals. simvastatin Yes Take by Met verna (ZOCOR) 10 3-[address] MG tablet [...] 45 times a l capsule day. levothyroxi Yes 50ug QD Take 50 Met verna ne 3-[address] (SYNTHROID, 11:13: mouth Hospi ta LEVOXYL) 50 45 daily. l mcg tablet cannabidiol 2020-0 Yes Q.5D Take by Met verna , CBD, 3-[address] extract 100 11:13: (two) Hospi ta mg/mL 45 times a l solution day. ipratropium 0 Yes 3mL Q.[id number] Take 3 mL Methodi -albuterol 3-[id number] (DUO-NEB) 11:13: 3D nebulizati Ho [...] with meals. simvastatin Yes Take by Met verna (ZOCOR) 10 3-[address] MG tablet [...] 45 times a l capsule day. levothyroxi 2020-0 Yes 50ug QD Take 50 Met hodi ne 3-[address] (SYNTHROID, 11:13: mouth Hospi ta LEVOXYL) 50 45 daily. l mcg tablet cannabidiol 2020-0 Yes Q.5D Take by Met verna , CBD, 3-[address] extract 100 11:13: (two) Hospi ta mg/mL 45 times a l solution day. ipratropium 2020-0 Yes 3mL Q.[id number] Take 3 mL Methodi -albuterol 3-[id number] (DUO-NEB) 11:13: 3D nebulizati Ho spita 0.5-2.5 45 on 3 l mg/3 mL (three) nebulizer times a day. fluticasone Yes QD Inhale Meth alexandre -umeclidin- 3-[address] vilanter 11:13: Hospita (TRELEGY 45 l ELLIPTA) 100-62.5-25 mcg blister with device metFORMIN Yes 1000mg Q.5D Take 1,000 Methodi (GLUCOPHAGE [...] t (Depo-Testo 00:00: 04:59 total) [facility]) 00 :00 into the l 200 mg/mL shoulder, injection thigh, or buttocks once for 1 dose. safety 2019-03- No 18g Q14D 18 g every Meth alexandre needles (BD 05-[address] SafetyGlide 00:00: 04:59 (fourteen) Hospita Needle) 18 00 :00 days for l gauge x 1 90 days. 1/2" needle syringe 2019-03- No 23g Q14D 23 g every Met hodi with needle 05-[address] (BD Eclipse 00:00: 04:59 (fourteen) Hospita Luer-Ranjit) 3 00 :00 days for l mL 23 x 1" 90 days. syringe testosteron 2019-03- No 200mg Q14D Inject 1 Methodi e cypionate 05-17 03-17 mL (200 mg s t (Depo-Testo 00:00: 00:00 total) Hos manoj sterone) 00 :00 into the l 200 mg/mL shoulder, injection thigh, or buttocks every 14 (fourteen) days for 90 days. tamsulosin 2020-0 Yes .4mg Q.5D Take 1 Metho di (FLOMAX) 8-[address] 0.4 mg 00:00: (0.4 mg Hospita capsule 00 total) by l mouth 2 (two) times a day. tamsulosin 2020-0 Yes .4mg Q.5D Take 1 Metho di (FLOMAX) 8-[address] 0.4 mg 00:00: (0.4 mg Hospita capsule 00 total) by l mouth 2 (two) times a day. tamsulosin 2020-0 Yes .4mg Q.5D Take 1 Metho di (FLOMAX) 8-[address] 0.4 mg 00:00: (0.4 mg Hospita capsule 00 total) by l mouth 2 (two) times a day. tamsulosin 2020-0 Yes .4mg Q.5D Take 1 Metho di (FLOMAX) 8-[address] 0.4 mg 00:00: (0.4 mg Hospita capsule 00 total) by l mouth 2 (two) times a day. QC QC 2019-0 Yes JANY 2 [address] [place] Fluticasone Fluticasone 8 HOMER Beltran each Physici Propionate Propionate 00:00: nostril ans 50 MCG/ACT 50 MCG/ACT 00 once daily SUSP SUSP Furosemide 2018-03 No Notes: Memor ia 20 MG Oral 2-16 (Same as: l Tablet 15:00: Lasix) May Salud nn 00 cause GI upset. Give with food or milk. Budesonide 2018-03 No Notes: Memor ia 0.5 MG/ML 2-15 (Same As: l Inhalant 15:55: Pulmicort) Her mcgrath Solution 00 60 ACTUAT 2018-03 No 2 puff, Memor ia tiotropium 2-15 Route: l 0.53518 15:00: INHALATION Herm greer MG/ACTUAT 00 , Daily, Metered Dosing Dose Weight Inhaler 97.3, kg, [Spiriva] Start date: 03/09/19 9:00:00 LEAD SOFTWARE ENGINEER, Duration: 30 day, Stop date: 04/07/19 9:00:00 LEAD SOFTWARE ENGINEER Rasagiline 2018-03 No Rasagiline M emoria 1 mg tablet 2-15 1 mg l 03:00: tablet, 1 Wendell 00 mg / 1 tablet, Drug form: MISC, Route: PO, Daily, 03/08/19 21:00:00 LEAD SOFTWARE ENGINEER, Duration: 30 day, Stop date: 04/06/19 21:00:00 LEAD SOFTWARE ENGINEER, 0 rasagiline 2018-03 No 1 mg, Memori a 2-14 Route: PO, l 23:00: Drug form: Indra 00 TAB, QPM, Dosing Weight 97.3, kg, Start date: 03/08/19 17:00:00 LEAD SOFTWARE ENGINEER, Duration: 30 day, Stop date: 04/06/19 17:00:00 LEAD SOFTWARE ENGINEER Flomax 2018-03 No Notes: Memoria 2-14 (Same As: l 23:00: Flomax) "Do Not Crush" Bumex 2018-03 No Notes: Memoria 2-14 (Same As: l 19:19: Bumex) Spironolact 2018-03 No Notes: King kristina one 2-14 (Same As: l 19:19: Aldactone) Albuterol 2018-03 No Notes: Memori a 0.833 MG/ML 2-14 (Same as: l / 17:00: Duoneb) Ipratropium 00 [place] 0.167 MG/ML Inhalant Solution CoQ10 2018-03 Yes 200 mg, Memoria 2-14 PO, Daily, l 16:49: 0 Indra Refill(s) Zithromax 2018-03 No Notes: Memori a 2-14 Take 1 l 16:00: hour Indra 00 before or 2 hours after meals. (Same As: Zithromax) Pulmicort 2018-03 No Notes: Memori a Respules 2-14 (Same As: l 15:54: Pulmicort) Wendell 00 Dextrose 2018-03 No 12.5 gm, Memor ia 50% Syringe 2-14 25 mL, l (D50W) 15:15: Route: Wendell 00 IVP, Drug Form: INJ, Dosing Weight 97.3, kg, PRN, PRN Blood Glucose Results, Start date: 03/08/19 9:15:00 LEAD SOFTWARE ENGINEER, Duration: 30 day, Stop date: 04/07/19 9:14:00 LEAD SOFTWARE ENGINEER, 0 Glucagon 2018-03 No 1 mg, Memoria 2-14 Route: IM, l 15:15: Drug form: Wendell 00 PDR/INJ, PRN, Dosing Weight 97.3, kg, PRN Blood Glucose Results, Start date: 03/08/19 9:15:00 LEAD SOFTWARE ENGINEER, Duration: 30 day, Stop date: 04/07/19 9:14:00 LEAD SOFTWARE ENGINEER, 0 Insulin 2018-03 No Notes: Memoria Lispro [...] 97.3, kg, RBID, Start date: 03/08/19 9:09:00 LEAD SOFTWARE ENGINEER, Duration: 30 day, Stop date: 04/07/19 8:00:00 LEAD SOFTWARE ENGINEER Lyrica 2018-03 No Notes: Memoria 2-14 Same as l 15:00: Lyrica Wendell 00 Protonix 2018- No Notes: Memoria 2-14 Tablet l 15:00: should not Indra 00 be chewed or crushed. (Same as: Protonix) Thyroxine 2018- No Notes: Memori a 2-14 Take 1 l 13:30: hour Wendell 00 before or 2 hours after meal; Enteral feeds may interefere with the absorption of this medication .(Same as:Levothr oid, Synthroid) *RN* pls 2018-03 No *RN* pls Memor ia bring pt's 2-14 bring pt's l own 06:00: own Indra rasagiline 00 rasagiline to [facility] for to [facility] for label label, attn, Drug form: MISC, Route: MISC, QSHIFT, 03/08/19 0:00:00 LEAD SOFTWARE ENGINEER, Duration: 30 day, Stop date: 04/06/19 16:00:00 LEAD SOFTWARE ENGINEER, 0 metoprolol 2018-03 No Notes: Memor ia 2-14 (Same as: l 05:00: Toprol XL) Wendell 00 Do Not Crush Eliquis 2018-03 No Notes: Memoria 2-14 Same as: l 03:00: Eliquis Wendell metoprolol 2018-03 No metoprolol M emoria 25 mg oral 2-14 25 mg oral l tablet, 03:00: tablet, Wendell extended 00 extended release release, 25 mg, Route: PO, Bedtime, 03/07/19 21:00:00 LEAD SOFTWARE ENGINEER, Duration: 30 day, Stop date: 04/05/19 21:00:00 LEAD SOFTWARE ENGINEER Simvastatin 2018-03 No Notes: King kristina 2-14 (Same as: l 03:00: Zocor) Indra 00 Requip 2018-03 No Notes: Memoria 2-14 (Same as: l 03:00: Requip) Indra 00 Solu-Medrol 2018-03 No Notes: King kristina 2-14 (Same l 03:00: as:Solu-ME Wendell 00 DROL, A-Methapre d) Omnipaque 2018-03 No 45 Memoria 350 2-14 mL/min, l injectable 03:00: Start Oleksandr n solution 00 date: 03/07/19 21:00:00 LEAD SOFTWARE ENGINEER, Duration: 1 doses or times Rocephin + [...] kg, Priority: NOW, Start date: 03/07/19 19:53:00 LEAD SOFTWARE ENGINEER, Duration: 30 day, Stop date: 04/06/19 9:00:00 LEAD SOFTWARE ENGINEER NS 1,000 mL 2018-03 No 1,000 mL, M emoria 2-14 Rate: 75 l 01:47: ml/hr, Indra 00 Infuse over: 13.3 hr, Route: IV, Dosing Weight 97.3 kg, Total Volume: 1,000, Start date: 03/07/19 19:47:00 LEAD SOFTWARE ENGINEER, Duration: 30 day, Stop date: 04/06/19 19:46:00 LEAD SOFTWARE ENGINEER, 2.18, m2, 0 COQ10, 2018-03 Yes 200 [...] 2-13 PO, Q12H, l Tablet 22:17: 0 Wendell [Eliquis] 00 Refill(s) *RN* pls 2018-03 No *RN* pls Memor ia update 2-13 update l height, 21:45: height, Wendell weight, and 00 weight, allergy in and adhoc allergy in adhoc, attn, Drug form: MISC, Route: MISC, Q15Min, 03/07/19 15:45:00 LEAD SOFTWARE ENGINEER, Duration: 30 day, Stop date: 04/06/19 15:30:00 LEAD SOFTWARE ENGINEER, 0 Dextrose 2018- No 12.5 gm, Memor ia 50% Syringe 2-13 25 mL, l (D50W) 20:36: Route: IVP, Drug Form: INJ, Dosing Weight 95.455, kg, PRN, PRN Blood Glucose Results, Start date: 03/07/19 14:36:00 LEAD SOFTWARE ENGINEER, Duration: 30 day, Stop date: 04/06/19 14:35:00 LEAD SOFTWARE ENGINEER, 0 Glucagon 2018-03 No 1 mg, Memoria 2-13 Route: IM, l 20:36: Drug form: Indra 00 PDR/INJ, PRN, Dosing Weight 95.455, kg, PRN Blood Glucose Results, Start date: 03/07/19 14:36:00 LEAD SOFTWARE ENGINEER, Duration: 30 day, Stop date: 04/06/19 14:35:00 LEAD SOFTWARE ENGINEER, 0 Docusate 2018-03 No Notes: Memoria 2-13 (Same as: l 20:36: Colace) Wendell 00 (Do Not Crush) POLYETHYLEN 2018-03 No Notes: [...] for allergy symptoms, Start date: 03/07/19 14:36:00 LEAD SOFTWARE ENGINEER, Duration: 30 day, Stop date: 04/06/19 14:35:00 LEAD SOFTWARE ENGINEER, 0 Melatonin 2018-03 No Notes: Memori a 2-13 (Same as: l 20:36: Melatonin) Trazodone 2018-03 No Notes: Memori a 2-13 (Same As: l 20:36: Desyrel) Acetaminoph 2018-03 No Notes: Do M emoria en 2-13 not exceed l 20:36: 4 gm/day. Indra 00 (Same as: Tylenol) Seroquel 2018-03 No [...] / 2-13 (Same as: l Hydrocodone 20:36: [place] Salud nn Bitartrate 00 325/5) Do 5 MG Oral not exceed Tablet 4gm/day of [[place] acetaminop 5/325] hen. Morphine 2018-03 No Notes: [...] kristina 2-13 (Same as: l 20:36: Mylicon) Maalox 2018-03 No Notes: Memoria Advanced 2-13 (aluminum l Regular 20:36: hydroxide- Herm greer Strength 00 magnesium SUSP hyd-simeth icone 200-200-20 mg/5ml 30 ml ud IMTIAZ) Albuterol 2018-03 No Notes: Memori a 0.833 MG/ML 2-13 (Same as: l / 20:36: Duoneb) Indra Ipratropium 00 [place] 0.167 MG/ML Inhalant Solution [DuoNeb] phenol 2018-03 No Notes: Memoria 2-13 Chlorasept l 20:36: ic [place] Wendell 00 (Same as: Chlorasept ic, Sore Throat [place]) WASTE: F/P - Black; E - Municipal Trash Bin Artificial 2018-03 No 1 drp, Memor ia Tears - Route: l 20:36: Each Indra 00 Affected Eye, QID, Drug form: SOLN, PRN Dry Eyes, Start date: 03/07/19 14:36:00 LEAD SOFTWARE ENGINEER, Duration: 30 day, Stop date: 04/06/19 14:35:00 LEAD SOFTWARE ENGINEER, 0 Lidocaine 2018-03 No Notes: Memori a [...] tab, PO, st (ALDACTONE) 00:00: Daily, # Justo spita 25 MG 00 30 tab, 3 l tablet Refill(s) spironolact 2018-03 Yes 25 mg = 1 M ethodi one 2-13 tab, PO, st (ALDACTONE) 00:00: Daily, # Ho spita 25 MG 00 30 tab, 3 l tablet Refill(s) Osteo 2018-03 Yes 0 Memoria Bi-Flex 2-12 Refill(s) l 22:17: cefTRIAXone 2018-03 Yes [id number] 1g M ethodi (ROCEPHIN) 04-20 st injection 1 16:45: Hospit a g 00 l cefTRIAXone 2018-03 Yes [id number] 1g M ethodi (ROCEPHIN) 04-20 st injection 1 16:45: Hospit a g 00 l cefTRIAXone 2018-03 Yes [id number] 1g M ethodi (ROCEPHIN) 04-20 st injection 1 16:45: Hospit a g 00 l cefTRIAXone 2018-03 Yes [id number] 1g M ethodi (ROCEPHIN) 04-20 st injection [...] 0.9% 2-23 Route: l 03:00: IVP, Drug Indra 00 Form: INJ, Dosing Weight 95.455, kg, Q12H, Start date: 05/17/18 21:00:00 LEAD SOFTWARE ENGINEER, Duration: 30 day, Stop date: 06/16/18 9:00:00 CDT Simvastatin No Notes: King kristina 2-23 (Same as: l 03:00: Zocor) Indra 00 Enoxaparin No Notes: Memor ia 2-23 (Same as: l 00:30: Lovenox) Wendell Protonix No Notes: Memoria 2-23 Tablet l 00:00: should not Indra 00 be chewed or crushed. (Same as: Protonix) Cefazolin No Notes: Memori a 2-23 (Same As: l 00:00: Ancef, Wendell 00 Kefzol) MEDICATION WASTE Product Size: 1000 mg Product Wasted: ___ mg Docusate No Notes: Memoria Sodium 100 2-22 (Same as: l MG Oral 23:00: Colace) Indra Capsule 00 (Do Not Crush) Flomax No Notes: Memoria 2-22 (Same As: l 23:00: Flomax) Indra 00 "Do Not Crush" rasagiline No Notes: Memor ia 2-22 Same as l 23:00: Azilect Indra 00 Non Formulary Item Lyrica No Notes: Memoria 2-22 (Same as: l 23:00: Lyrica) Indra 00 Cymbalta No 60 mg, Memoria 2-22 Route: PO, l 23:00: Drug form: Wendell 00 DRC, QPM, Dosing Weight 95.455, kg, Start date: 05/17/18 17:00:00 LEAD SOFTWARE ENGINEER, Duration: 30 day, Stop date: 06/15/18 17:00:00 CDT Dexilant 2018-0 No 60 mg, Memoria 05-17 Route: PO, l 23:00: Drug form: DRC, BID, Dosing Weight 95.455, kg, Start date: 05/17/18 17:00:00 LEAD SOFTWARE ENGINEER, Duration: 30 day, Stop date: 06/16/18 9:00:00 CDT Streptococc 0 No 0.5 mL, Mem oria us 05-17 Route: IM, l pneumoniae 20:39: ONCALL, Herm greer serotype 1 45 Start capsular date: antigen 05/17/18 diphtheria 14:39:45 [id number] LEAD SOFTWARE ENGINEER, Stop protein date: conjugate 06/16/18 vaccine / 14:34:45 Streptococc CDT us pneumoniae serotype 14 capsular antigen diphtheria [id number] protein conjugate vaccine / Streptococc us pneumoniae serotype 18C capsular antigen d glycopyrrol No Route: IV, Memoria ate (ANES) 05-17 Drug form: l 18:57: INJ, ONCE, Stop date: 05/17/18 12:57:00 LEAD SOFTWARE ENGINEER neostigmine No Route: IV, Memoria (ANES) 05-17 Drug form: l 18:57: INJ, ONCE, Stop date: 05/17/18 12:57:00 LEAD SOFTWARE ENGINEER Sodium 2018-0 No 25 mL, Memoria Chloride 05-17 Route: IV, l 0.9% IV 18:57: Start date: 05/17/18 12:57:00 LEAD SOFTWARE ENGINEER, Duration: 30 day, Stop date: 06/16/18 13:56:00 CDT, PRN Line Flush BD Normal No Notes: Memori a Saline 05-17 (Same as: l Flush 18:57: BD Posiflush) famotidine No Route: IV, M emoria (ANES) 05-17 Drug form: l 18:52: INJ, ONCE, Stop date: 05/17/18 12:52:00 LEAD SOFTWARE ENGINEER ropivacaine No Notes: King kristina 05-17 Final l 18:52: concentrat ion: Ropivacain e 0.2% 400 ml Oxycodone No Notes: Memori a Hydrochlori - (Same as: l de 5 MG 18:34: Roxicodone Herm greer Oral Tablet ) propofol No Route: IV, Mem oria (ANES) - Drug form: l 18:32: INJ, ONCE, Stop date: 05/17/18 12:32:00 LEAD SOFTWARE ENGINEER fentaNYL No Route: IV, Mem oria (ANES) 05-17 Drug form: l 18:27: INJ, ONCE, Stop date: 05/17/18 12:27:00 LEAD SOFTWARE ENGINEER Saline No 10 ml, Memoria Flush 0.9% 05-17 Route: l 18:27: IVP, Drug Form: INJ, Dosing Weight 95.455, kg, PRN, PRN Line Flush, Start date: 05/17/18 12:27:00 LEAD SOFTWARE ENGINEER, Duration: 30 day, Stop date: 06/16/18 13:26:00 CDT Ondansetron No Notes: King kristina - (Same as: l 18:27: Zofran) MEDICATION WASTE Product Size: 4 mg Product Wasted: ___ mg Lactated No 1,000 mL, King kristina Ringers IV 05-17 Rate: 125 l 1,000 mL 18:27: ml/hr, Infuse over: 8 hr, Route: IV, Dosing Weight 95.455 kg, Total Volume: 1,000, Start date: 05/17/18 12:27:00 LEAD SOFTWARE ENGINEER, Duration: 30 day, Stop date: 06/16/18 12:26:00 CDT, 2.18, m2 Morphine No Notes: Memoria - (Same l 18:27: as:MORPhin e Sulfate) Acetaminoph No Notes: Do M emoria en -22 not exceed l 18:27: 4 gm/day. (Same as: Tylenol) tranexamic No Route: IV, M emoria acid (ANES) 05-17 Drug form: l 100 mg 18:00: INJ, Start Salud nn date: 05/17/18 12:00:00 LEAD SOFTWARE ENGINEER, Stop date: 05/17/18 13:00:00 LEAD SOFTWARE ENGINEER dexamethaso 2019-0 No Route: IV, Memoria ne (ANES) 2- Drug form: l 17:01: INJ, ONCE, Stop date: 05/17/18 11:01:00 LEAD SOFTWARE ENGINEER tranexamic 2019-0 No Route: IV, M emoria acid (ANES) 2 Drug form: l 17:01: INJ, ONCE, Stop date: 05/17/18 11:01:00 LEAD SOFTWARE ENGINEER rocuronium 2019-0 No Route: IV, M emoria (ANES) 2- Drug form: l 17:01: INJ, ONCE, Stop date: 05/17/18 11:01:00 LEAD SOFTWARE ENGINEER ondansetron 2019-0 No Route: IV, Memoria (ANES) 2 Drug form: l 17:01: INJ, ONCE, Stop date: 05/17/18 11:01:00 LEAD SOFTWARE ENGINEER propofol 2019-0 No Route: IV, Mem oria (ANES) - Drug form: l 17:01: INJ, ONCE, Stop date: 05/17/18 11:01:00 LEAD SOFTWARE ENGINEER lidocaine 2019-0 No Route: IV, Me moria (ANES) - Drug form: l 16:56: INJ, ONCE, Stop date: 05/17/18 10:56:00 LEAD SOFTWARE ENGINEER fentaNYL 2019-0 No Route: IV, Mem oria (ANES) 2- Drug form: l 16:56: INJ, ONCE, Stop date: 05/17/18 10:56:00 LEAD SOFTWARE ENGINEER phenylephri 2019-0 No Route: IV, Memoria ne (ANES) 2- Drug form: l [id number] 16:52: INJ, Start Oleksandr n microgram date: 05/17/18 10:52:00 LEAD SOFTWARE ENGINEER, Stop date: 05/17/18 11:52:00 LEAD SOFTWARE ENGINEER phenylephri 2019-0 No Route: IV, Memoria ne (ANES) 2- Drug form: l 16:51: INJ, ONCE, Stop date: 05/17/18 10:51:00 LEAD SOFTWARE ENGINEER ceFAZolin No Route: IV, Me moria (ANES) 2- Drug form: l 16:51: INJ, ONCE, Stop date: 05/17/18 10:51:00 LEAD SOFTWARE ENGINEER ePHEDrine No Route: IV, Me moria (ANES) 2- Drug form: l 16:51: INJ, ONCE, Stop date: 05/17/18 10:51:00 LEAD SOFTWARE ENGINEER Ondansetron No Notes: King kristina 2-22 (Same as: l 16:44: Zofran) MEDICATION WASTE Product Size: 4 mg Product Wasted: ___ mg Flumazenil No Notes: Memor ia 2- (Same as: l 16:44: Romazicon) Naloxone No Notes: Memoria 2-22 Same as l 16:44: Narcan Ketorolac No 4 days Memor ia - l 16:44: MEDICATION WASTE Product Size: 30 mg Product Wasted: ___ mg Acetaminoph No Notes: Max Memoria en - acetaminop l 16:44: hen 4000 mg/day (4 gm/day). (Same as: Tylenol Extra Strength) Labetalol No Notes: Memori a 2-22 (Same as: l 16:44: Normodyne, Trandate) Push over 2 minutes Give bolus over 2-3 minutes. Morphine No Notes: Memoria 2-22 (Same l 16:44: as:MORPhin e Sulfate) Hydralazine No Notes: King kristina 2-22 (Same as: l 16:44: Apresoline ) Push over 5 minutes Lactated No Route: IV, Mem oria Ringers - Total l Injection 15:51: Volume: Salud nn IV (ANES) 00 1,000, 1000 mL Start date: 05/17/18 9:51:00 LEAD SOFTWARE ENGINEER, Stop date: 05/17/18 10:51:00 LEAD SOFTWARE ENGINEER ceFAZolin + No Notes: King kristina sterile [...] cap, PO, l Enteric 22:44: BID, 0 [place] Coated 00 Refill(s) Capsule [Dexilant] rOPINIRole Yes 0.5 mg = 1 M emoria 0.5 mg oral 2-21 tab, PO, l tablet 22:42: Daily, 0 Indra 00 Refill(s) pregabalin Yes 100 mg = 1 M emoria 100 MG Oral 2-11 cap, PO, l Capsule 16:00: BID, # 60 Salud nn [Lyrica] 00 cap, 1 Refill(s) Sodium No 1,000 mL, Memori a Chloride 2-11 Rate: 25 l 0.9% IV 08:37: ml/hr, Indra 1,000 mL 00 Infuse over: 40 hr, Route: IV, Dosing Weight 94.545 kg, Total Volume: 1,000, Start date: 05/06/18 2:37:00 LEAD SOFTWARE ENGINEER, Duration: 30 day, Stop date: 06/05/18 2:36:00 [...] 1 unit [facility] Sulfate Sulfate 08-30 [facility] dose by Phys ici 1.25 MG/3ML 1.25 MG/3ML 00:00: M.D. nebulizer ans Inhalation Inhalation 00 in clinic Nebulizatio Nebulizatio n Solution n Solution Ipratropium Ipratropium No MEGGAN one dose [place] 08-30 [place] at [facility] ysici 0.02 % 0.02 % 00:00: M.D. now ans Inhalation Inhalation 00 Solution Solution Ipratropium Ipratropium Yes MEGGAN 1 vial in [place] -Albuterol -Albuterol 08-30 [facility] nebulizer Physici 0.5-2.5 (3) 0.5-2.5 (3) 00:00: M.D. every 4-6 ans MG/3ML MG/3ML 00 hours as Inhalation Inhalation needed for Solution Solution chest tightness, wheezing, shortness of breath, or prior to exertion, max use 6xdaily Ipratropium Ipratropium No MEGGAN one dose [place] 08-30 [facility] at [facility] Ph ysici 0.02 % 0.02 % 00:00: M.D. now ans Inhalation Inhalation 00 Solution Solution esomeprazol 2020- No Take by Me mjeia e (NexIUM) 08-30 06-[address] 20 MG 00:00: 00:00 Hospita capsule 00 :00 l albuterol Yes Inhale. Metho di (ACCUNEB) 3-08 [...] MEGGAN use one [facility] Ellipta Ellipta 05-31 HARRY puff one Phy sici 100-62.5-25 100-62.5-25 00:00: M.D. time daily ans MCG/INH MCG/INH 00 and rinse Inhalation Inhalation mouth Aerosol Aerosol afterwards Powder Powder Breath Breath Activated Activated Albuterol Albuterol Yes MEGGAN USE 1 UNIT [facility] Sulfate Sulfate 05-31 HARRY DOSE IN Phys ici (2.5 (2.5 [...] Symbicort) WASTE: Aerosol - Return to Pharmacy rasagiline No Notes: Memor ia 2-21 Same as l 23:00: Azilect [place] Non Formulary Item Cymbalta No Notes: Memoria 2-21 (Same as: l 23:00: Cymbalta) Indra 00 (Do Not Crush) Flomax No Notes: Memoria 2-21 (Same As: l 23:00: Flomax) Wendell 00 "Do Not Crush" Cathflo No Notes: Memoria Activase 2 2-21 "Syringe l mg 22:39: for Wendell injection 00 catheter clearance or interventi onal radiology use. Reconstitu te each vial of Cathflo Activase with 2.2 ml Sterile Water resulting in a 1 mg/ml solution. (Same as: Activase) MEDICATION WASTE Product Size: 2 mg Product Wasted: ___ mg Protonix No Notes: Memoria 2-21 Tablet l 22:30: should not Indra 00 be chewed or crushed. (Same as: Protonix) Oxycodone No Notes: Memori a Hydrochlori 2-21 (Same as: l de 5 MG 21:33: Roxicodone Herm greer Oral Tablet 00 ) 24 HR No Notes: Memoria Metoprolol 2-21 (Same as: l Tartrate 25 15:00: Toprol XL) Wendell MG Extended 00 Do Not Release Crush Tablet [Toprol] Dulera 200 No 2 puff, King kristina mcg-5 05-16 Route: l mcg/inh 15:00: INHALER, Oleksandr n inhalation 00 Drug Form: aerosol AERO, Dosing Weight 94.545, kg, BID, Start date: 05/16/17 9:00:00 [employer], Duration: 30 day, Stop date: 06/14/17 17:00:00 CDT Nexium No 40 mg, Memoria 2-21 Route: PO, l 15:00: Drug form: Indra 00 ECCAP, BID, Dosing Weight 94.545, kg, Start date: 05/16/17 9:00:00 [employer], Duration: 30 day, Stop date: 06/14/17 17:00:00 CDT albuterol No Route: PO, Me moria 90 mcg/inh -21 Drug Form: l inhalation 15:00: AERO/A, Herm greer aerosol 00 Dosing Weight 94.545, kg, BID, Start date: 05/16/17 9:00:00 [employer], Duration: 30 day, Stop date: 06/14/17 17:00:00 CDT Docusate No Notes: Memoria Sodium 100 2-21 (Same as: l MG Oral 15:00: Colace) Indra Capsule 00 (Do Not [Colace] Crush) Thyroxine No Notes: Memori a 2-21 Take 1 l 12:30: hour Wendell 00 before or 2 hours after meal; Enteral feeds may interefere with the absorption of this medication .(Same as:Levothr oid, Synthroid) albuterol No Notes: SEE Me moria 2-21 RT l 08:39: DOCUMENTAT Wendell 00 ION (Same as: Proventil) Melatonin No 10 mg, Memori a 2-21 Route: PO, l 03:00: Drug form: Indra 00 CAP, Bedtime, Dosing Weight 94.545, kg, Start date: 05/15/17 21:00:00 [employer], Duration: 30 day, Stop date: 06/13/17 21:00:00 CDT melatonin No Notes: Memori a 2-21 (Same as: l 03:00: Melatonin) Wendell Simvastatin No Notes: King kristina 2-21 (Same as: l 03:00: Zocor) Indra heparin No Notes: Memoria 2-21 porcine l 03:00: heparin Wendell meropenem No Notes: Memori a 2-21 (Same as: l 00:00: Merrem) . Wendell MEDICATION WASTE Product Size: 1000 mg Product Wasted: ___ mg Clonidine No Notes: Memori a Hydrochlori 2-20 (Same As: l de 0.1 MG 23:37: Catapres) Her mcgrath Oral Tablet 00 Vasotec No Notes: Memoria 2-20 (Same as: l 23:37: Vasotec-IV Indra ) Potassium No Notes: Memori a Chloride 2-20 (Same as: l 23:37: K-Dur 20) Indra 00 "Do Not Crush" With food and full glass of water Albuterol No Notes: SEE Me moria 0.83 MG/ML 2-20 RT l Inhalant 23:37: DOCUMENTAT Her mcgrath Solution 00 ION (Same as: Proventil) lactobacill No 1 tab, King kristina 2-20 Route: PO, l acidophilus 23:26: Drug Form: TAB, Dosing Weight 94.545, kg, BID, Start date: 05/15/17 17:26:00 LEAD SOFTWARE ENGINEER, Duration: 30 day, Stop date: 06/14/17 17:00:00 CDT Vancomycin No 2001 mg: Me moria 2-20 infuse [...] Acetaminoph No Notes: Do M emoria en 2-20 not exceed l 18:19: 4 gm/day. (Same as: Tylenol) ondansetron No Route: IV, Memoria (ANES) 2-20 Drug form: l 14:52: INJ, ONCE, Stop date: 05/15/17 8:52:00 LEAD SOFTWARE ENGINEER glycopyrrol No Route: IV, Memoria ate (ANES) 2-20 Drug form: l 14:52: INJ, ONCE, Stop date: 05/15/17 8:52:00 LEAD SOFTWARE ENGINEER neostigmine No Route: IV, Memoria (ANES) 2-20 Drug form: l 14:52: INJ, ONCE, Stop date: 05/15/17 8:52:00 LEAD SOFTWARE ENGINEER famotidine No Route: IV, M emoria (ANES) 2-20 Drug form: l 14:52: INJ, ONCE, Stop date: 05/15/17 8:52:00 LEAD SOFTWARE ENGINEER Morphine No Notes: Memoria 2-20 (Same l 14:43: as:MORPhin e Sulfate) ePHEDrine No Route: IV, Me moria (ANES) 2-20 Drug form: l 14:39: INJ, ONCE, Stop date: 05/15/17 8:39:00 LEAD SOFTWARE ENGINEER phenylephri 2017-0 No Route: IV, Memoria ne (ANES) 2-20 Drug form: l 14:34: INJ, ONCE, Stop date: 05/15/17 8:34:00 LEAD SOFTWARE ENGINEER rocuronium 2018-0 No Route: IV, M emoria (ANES) 2-20 Drug form: l 14:29: INJ, ONCE, Stop date: 05/15/17 8:29:00 LEAD SOFTWARE ENGINEER ceFAZolin 2018-0 No Route: IV, Me moria (ANES) 2-20 Drug form: l 14:29: INJ, ONCE, Stop date: 05/15/17 8:29:00 LEAD SOFTWARE ENGINEER propofol 2018-0 No Route: IV, Mem oria (ANES) 2-20 Drug form: l 14:24: INJ, ONCE, Stop date: 05/15/17 8:24:00 LEAD SOFTWARE ENGINEER succinylcho 2017-0 No Route: IV, Memoria line (ANES) 2-20 Drug form: l 14:24: INJ, ONCE, Stop date: 05/15/17 8:24:00 LEAD SOFTWARE ENGINEER Promethazin 2017-0 No 6.25 mg, Me moria e 2-20 Route: l 14:22: IVPB, ONCE, Dosing Weight 95.455, kg, PRN Nausea & Vomiting, Start date: 05/15/17 8:22:00 LEAD SOFTWARE ENGINEER Ondansetron 2018-0 No 4 mg, Memor ia 2-20 Route: l 14:22: IVP, ONCE, Dosing Weight 95.455, kg, PRN Nausea & Vomiting, Start date: 05/15/17 8:22:00 LEAD SOFTWARE ENGINEER Meperidine 2017-0 No 12.5 mg, Mem oria 2-20 Route: l 14:22: IVP, Q30Min, Dosing Weight 95.455, kg, PRN Other -See Comment, For shivering, Start date: 05/15/17 8:22:00 LEAD SOFTWARE ENGINEER, Duration: 2 doses or times, Stop date: Limited # of times Albuterol 2018-0 No 2.49 mg, King kristina 0.83 MG/ML 2-20 Route: l Inhalant 14:22: NEB, Wendell Solution 00 Q20Min, Dosing Weight 95.455, kg, PRN Wheezing, Priority: STAT, Start date: 05/15/17 8:22:00 LEAD SOFTWARE ENGINEER, Duration: 30 day, Stop date: 06/14/17 9:21:00 CDT Flumazenil 2018-0 No 0.2 mg, King kristina 2-20 Route: l 14:22: IVP, PRN, Indra 00 Dosing Weight 95.455, kg, PRN Benzodiaze pine Reversal, Initial dose, Start date: 05/15/17 8:22:00 LEAD SOFTWARE ENGINEER, Duration: 30 day, Stop date: 06/14/17 9:21:00 CDT Morphine 2018-0 No 2 mg, Memoria 2-20 Route: l 14:22: IVP, Wendell 00 Q5Min, Dosing Weight 95.455, kg, PRN Pain Score 4-6, Start date: 05/15/17 8:22:00 LEAD SOFTWARE ENGINEER, Duration: 5 doses or times, Stop date: Limited # of times Hydromorpho 2018-0 No 0.5 mg, Mem oria ne 2-20 Route: l 14:22: IVP, Indra 00 Q5Min, Dosing Weight 95.455, kg, PRN Pain Score 7-10, Start date: 05/15/17 8:22:00 LEAD SOFTWARE ENGINEER, Duration: 4 doses or times, Stop date: Limited # of times Naloxone 2018-0 No 0.4 mg, Memori a 2-20 Route: l 14:22: IVP, Wendell 00 Q2MIN, Dosing Weight 95.455, kg, PRN Narcotic Reversal, Start date: 05/15/17 8:22:00 LEAD SOFTWARE ENGINEER, Duration: 8 doses or times, Stop date: Limited # of times Labetalol 2018-0 No 10 mg, Memori a 2-20 Route: l 14:22: IVP, Indra 00 Q5Min, Dosing Weight 95.455, kg, PRN Elevated BP, Start date: 05/15/17 8:22:00 LEAD SOFTWARE ENGINEER, Duration: 5 doses or times, Stop date: Limited # of times lidocaine 2018-0 No Route: IV, Me moria (ANES) 2-20 Drug form: l 14:19: INJ, ONCE, Wendell 00 Stop date: 05/15/17 8:19:00 LEAD SOFTWARE ENGINEER fentaNYL 2017- No Route: IV, Mem oria (ANES) 2-20 Drug form: l 14:19: INJ, ONCE, Indra Stop date: 05/15/17 8:19:00 LEAD SOFTWARE ENGINEER acetaminoph No Route: IV, Memoria en (ANES) 2-20 Drug form: l 10 mg 14:14: INJ, Start Oleksandr n date: 05/15/17 8:14:00 LEAD SOFTWARE ENGINEER, Stop date: 05/15/17 9:14:00 LEAD SOFTWARE ENGINEER Lactated No Route: IV, Mem oria Ringers 2-20 Total l Injection 13:14: Volume: Salud nn IV (ANES) 00 1,000, 1000 mL Start date: 05/15/17 7:14:00 LEAD SOFTWARE ENGINEER, Stop date: 05/15/17 8:14:00 LEAD SOFTWARE ENGINEER ceFAZolin + No Notes: King kristina sterile 2-20 (Same As: l water 20 mL 05:00: Ancef, Herm greer 00 Kefzol) MEDICATION WASTE Product Size: 1000 mg Product Wasted: ___ mg Ceftriaxone No 2 gm, IV, M emoria 1000 [...] 200 No 2 puff, King kristina mcg-5 05-04 Route: l mcg/inh 15:00: INHALER, Oleksandr n inhalation 00 Drug Form: aerosol AERO, Dosing Weight 103.4, kg, BID, Start date: 05/04/17 9:00:00 LEAD SOFTWARE ENGINEER, Duration: 30 day, Stop date: 06/02/17 17:00:00 LEAD SOFTWARE ENGINEER Clonidine No Notes: Memori a Hydrochlori 05-04 (Same As: l de 0.1 MG 14:07: Catapres) Her mcgrath Oral Tablet 00 Vasotec No Notes: Memoria 2 (Same as: l 14:07: Vasotec-IV Wendell ) cetirizine No Notes: Memor ia 05-03 (Same As: l 17:30: Zyrtec) Wendell Fluticasone No 2 spray, Me moria propionate 08 Route: l 0.05 17:01: Each Indra MG/ACTUAT 00 Affected Metered Nostril, Dose Nasal Drug Form: [place] SPRY, [Flonase] Dosing Weight 103.4, kg, Daily, Start date: 05/03/17 11:01:00 LEAD SOFTWARE ENGINEER, Duration: 30 day, Stop date: 06/02/17 9:00:00 LEAD SOFTWARE ENGINEER Loratadine No 10 mg, Memor ia 08 Route: PO, l 15:00: Drug form: Wendell 00 TAB, Daily, Dosing Weight 103.4, kg, Start date: 05/03/17 9:00:00 LEAD SOFTWARE ENGINEER, Duration: 30 day, Stop date: 06/01/17 9:00:00 LEAD SOFTWARE ENGINEER, .. lactobacill No 1 tab, King kristina us 07 Route: PO, l acidophilus 15:00: Drug Form: Wendell 00 TAB, Dosing Weight 95.455, kg, BID, Start date: 05/02/17 9:00:00 LEAD SOFTWARE ENGINEER, Duration: 30 day, Stop date: 05/31/17 17:00:00 LEAD SOFTWARE ENGINEER INCRUSE No INCRUSE Memoria Ellipta 05-02 Ellipta l 62.5mcg 14:00: 62.5mcg Wendell inhalation 00 inhalation powder powder, 1 inhalation (Pt's own med), Drug form: MISC, Route: INHALER, RDaily, 05/02/17 8:00:00 LEAD SOFTWARE ENGINEER, Duration: 30 day, Stop date: 05/31/17 8:00:00 LEAD SOFTWARE ENGINEER Incruse Yes 62.5 Memoria Ellipta 2-07 microgram, [...] Notes: Memoria 2-07 porcine l 04:30: heparin Wendell 00 Simvastatin No Notes: King kristina 2-07 (Same as: l 03:00: Zocor) Indra 00 Melatonin No Notes: Memori a 2-07 (Same as: l 03:00: Melatonin) Indra 00 200 ACTUAT No Notes: SEE M emoria Albuterol 2-07 RT l 0.09 02:00: DOCUMENTAT Indra MG/ACTUAT 00 ION (Same Metered as: Dose Proventil) Inhaler [ProAir HFA] DULERA No DULERA Memoria 200mcg/5mcg 2-07 200mcg/5mc l per 02:00: g per Indra actuation 00 actuation INHALER INHALER, 2 puffs (Pt's own med), Drug form: MISC, Route: INHALER, RBID, 05/01/17 20:00:00 LEAD SOFTWARE ENGINEER, Duration: 30 day, Stop date: 05/31/17 8:00:00 LEAD SOFTWARE ENGINEER cefepime No Notes: Memoria 2-07 (Same As: l 02:00: Maxipime) Indra 00 MEDICATION WASTE Product Size: 1000 mg Product Wasted: ___ mg Vancomycin No 2001 mg: Me moria 2-07 infuse l 02:00: over 2.5 Wendell 00 hours For adult patients only: Round to nearest 250 mg per Medical Staff approval MEDICATION WASTE Product Size: 1000 mg Product Wasted: ___ mg Acetaminoph 2017-0 No Notes: Do M emoria en 2-07 not exceed l 00:00: 4 gm/day. Indra (Same as: Tylenol) Protonix 2018-0 No 40 mg, 1 Memor ia 2-07 tab, l 00:00: Route: PO, Indra Drug form: ECTAB, BID-Before Meals, Start date: 05/01/17 18:00:00 LEAD SOFTWARE ENGINEER, Duration: 30 day, Stop date: 05/31/17 16:30:00 LEAD SOFTWARE ENGINEER Flomax 2018-0 No Notes: Memoria 2-06 (Same As: l 23:20: Flomax) Indra 00 "Do Not Crush" rasagiline 2017-0 No Notes: Memor ia 2-06 Same as l 23:20: Azilect Wendell Non Formulary Item Cymbalta 2018-0 No 60 mg, 2 Memor ia 2-06 cap, l 23:17: Route: PO, Indra 00 Drug form: DRC, QPM, Dosing Weight 95.455, kg, Start date: 05/01/17 17:17:00 LEAD SOFTWARE ENGINEER, Duration: 30 day, Stop date: 05/31/17 17:00:00 LEAD SOFTWARE ENGINEER Nexium 2018-0 No 40 mg, Memoria 2-06 Route: PO, l 23:00: Drug form: Indra 00 ECCAP, BID, Dosing Weight 95.455, kg, Start date: 05/01/17 17:00:00 LEAD SOFTWARE ENGINEER, Duration: 30 day, Stop date: 05/31/17 9:00:00 LEAD SOFTWARE ENGINEER Docusate 2018-0 No 100 mg, 1 King kristina Sodium 100 2-06 cap, l MG Oral 23:00: Route: PO, Herm greer Capsule 00 Drug form: CAP, BID, Dosing Weight 95.455, kg, Start date: 05/01/17 17:00:00 LEAD SOFTWARE ENGINEER, Duration: 30 day, Stop date: 05/31/17 9:00:00 LEAD SOFTWARE ENGINEER Asmanex HFA 2017-0 No Asmanex Mem oria 2-06 HFA, See l 23:00: Corrina Wendell 00 ns, Route: INHALATION , BID, 05/01/17 17:00:00 LEAD SOFTWARE ENGINEER, Duration: 30 day, Stop date: 05/31/17 9:00:00 LEAD SOFTWARE ENGINEER Levofloxaci No Notes: King kristina n 05-01 (Same l 23:00: as:Levaqui Wendell n) Albuterol No Notes: SEE Me moria 0.83 MG/ML 2-06 RT l Inhalant 22:46: DOCUMENTAT Her mcgrath Solution 00 ION (Same as: Proventil) BD Normal No Notes: Memori a Saline 05-01 (Same as: l Flush 21:49: BD Indra Posiflush) neostigmine No Route: IV, Memoria (ANES) 05-01 Drug form: l 16:14: INJ, ONCE, Stop date: 05/01/17 10:14:00 LEAD SOFTWARE ENGINEER glycopyrrol No Route: IV, Memoria ate (ANES) 05-01 Drug form: l 16:14: INJ, ONCE, Stop date: 05/01/17 10:14:00 LEAD SOFTWARE ENGINEER dexamethaso No Route: IV, Memoria ne (ANES) 05-01 Drug form: l 16:14: INJ, ONCE Stop date: 05/01/17 10:14:00 LEAD SOFTWARE ENGINEER famotidine No Route: IV, M emoria (ANES) 05-01 Drug form: l 16:14: INJ, ONCE, Stop date: 05/01/17 10:14:00 LEAD SOFTWARE ENGINEER ondansetron No Route: IV, Memoria (ANES) 05-01 Drug form: l 16:14: INJ, ONCE, Stop date: 05/01/17 10:14:00 LEAD SOFTWARE ENGINEER phenylephri No Route: IV, Memoria ne (ANES) 05-01 Drug form: l 16:11: INJ, ONCE, Stop date: 05/01/17 10:11:00 LEAD SOFTWARE ENGINEER ePHEDrine No Route: IV, Me moria (ANES) 05-01 Drug form: l 16:06: INJ, ONCE, Stop date: 05/01/17 10:06:00 LEAD SOFTWARE ENGINEER rocuronium No Route: IV, M emoria (ANES) 05-01 Drug form: l 16:01: INJ, ONCE, Indra Stop date: 05/01/17 10:01:00 LEAD SOFTWARE ENGINEER fentaNYL 2017- No Route: IV, Mem oria (ANES) 05-01 Drug form: l 16:01: INJ, ONCE, Indra Stop date: 05/01/17 10:01:00 LEAD SOFTWARE ENGINEER propofol No Route: IV, Mem oria (ANES) 2 Drug form: l 16:01: INJ, ONCE, Wendell Stop date: 05/01/17 10:01:00 LEAD SOFTWARE ENGINEER lidocaine No Route: IV, Me moria (ANES) 05-01 Drug form: l 16:01: INJ, ONCE, Wendell 00 Stop date: 05/01/17 10:01:00 LEAD SOFTWARE ENGINEER succinylcho No Route: IV, Memoria line (ANES) 05-01 Drug form: l 16:01: INJ, ONCE, Wendell 00 Stop date: 05/01/17 10:01:00 LEAD SOFTWARE ENGINEER Oxycodone No Notes: Memori a Hydrochlori 05-01 (Same as: l de 5 MG 15:58: Roxicodone Herm greer Oral Tablet ) Morphine No Notes: Memoria 05-01 (Same l 15:58: as:MORPhin Indra e Sulfate) Ondansetron No Notes: King kristina 05-01 (Same as: l 15:53: Zofran) Indra MEDICATION WASTE Product Size: 4 mg Product Wasted: ___ mg Lactated No 1,000 mL, King kristina Ringers IV 05-01 Rate: 100 l 1,000 mL 15:53: ml/hr, Indra Infuse over: 10 hr, Route: IV, Dosing Weight 95.455 kg, Total Volume: 1,000, Start date: 05/01/17 9:53:00 LEAD SOFTWARE ENGINEER, Duration: 30 day, Stop date: 05/31/17 9:52:00 LEAD SOFTWARE ENGINEER, 2.18, m2 acetaminoph No Route: IV, Memoria en (ANES) 05-01 Drug form: l 10 mg 15:52: INJ, Start Oleksandr n 00 date: 05/01/17 9:52:00 LEAD SOFTWARE ENGINEER, Stop date: 05/01/17 10:52:00 LEAD SOFTWARE ENGINEER ceFAZolin 2017- No Route: IV, Me moria (ANES) 05-01 Drug form: l mg 15:21: INJ, Start Indra 00 date: 05/01/17 9:21:00 LEAD SOFTWARE ENGINEER, Stop date: 05/01/17 10:21:00 LEAD SOFTWARE ENGINEER phenylephri No Route: IV, Memoria ne (ANES) 05-01 Drug form: l 100 14:55: INJ, Start Indra microgram 00 date: 05/01/17 8:55:00 LEAD SOFTWARE ENGINEER, Stop date: 05/01/17 9:55:00 LEAD SOFTWARE ENGINEER Lactated No Route: IV, Mem oria Ringers 05-01 Total l Injection 14:38: Volume: Slaud nn IV (ANES) 00 1,000, 1000 mL Start date: 05/01/17 8:38:00 LEAD SOFTWARE ENGINEER, Stop date: 05/01/17 9:38:00 LEAD SOFTWARE ENGINEER ceFAZolin + No Notes: King kristina sterile 05-01 (Same As: l water 20 mL 06:00: Ancef, Herm greer 00 Kefzol) MEDICATION WASTE Product Size: 1000 mg Product Wasted: ___ mg neostigmine No Route: IV, Memoria (ANES) 04-13 Drug form: l 21:55: INJ, ONCE, Indra 00 Stop date: 04/13/17 15:55:00 LEAD SOFTWARE ENGINEER ondansetron No Route: IV, Memoria (ANES) 04-13 Drug form: l 21:55: INJ, ONCE, Wendell Stop date: 04/13/17 15:55:00 LEAD SOFTWARE ENGINEER phenylephri 2017-0 No Route: IV, Memoria ne (ANES) 04-13 Drug form: l 21:55: INJ, ONCE, Wendell Stop date: 04/13/17 15:55:00 LEAD SOFTWARE ENGINEER glycopyrrol No Route: IV, Memoria ate (ANES) 04-13 Drug form: l 21:55: INJ, ONCE, Indra Stop date: 04/13/17 15:55:00 LEAD SOFTWARE ENGINEER metoprolol No Route: IV, M emoria (ANES) 04-13 Drug form: l 21:36: INJ, ONCE, Stop date: 04/13/17 15:36:00 LEAD SOFTWARE ENGINEER ePHEDrine No Route: IV, Me moria (ANES) 04-13 Drug form: l 21:36: INJ, ONCE, Stop date: 04/13/17 15:36:00 LEAD SOFTWARE ENGINEER Acetaminoph 2017- No 650 mg = 2 Memoria en [...] day, # 9 tab, 0 Refill(s), Pharmacy: [facility] rocuronium No Route: IV, M emoria (ANES) 04-13 Drug form: l 21:26: INJ, ONCE, Stop date: 04/13/17 15:26:00 LEAD SOFTWARE ENGINEER phenylephri No Route: IV, Memoria ne (ANES) 04-13 Drug form: l 21:26: INJ, ONCE, Stop date: 04/13/17 15:26:00 LEAD SOFTWARE ENGINEER ePHEDrine No Route: IV, Me moria (ANES) 04-13 Drug form: l 21:26: INJ, ONCE, Stop date: 04/13/17 15:26:00 LEAD SOFTWARE ENGINEER dexamethaso No Route: IV, Memoria ne (ANES) 04-13 Drug form: l 21:26: INJ, ONCE, Stop date: 04/13/17 15:26:00 LEAD SOFTWARE ENGINEER famotidine 2017- No Route: IV, M emoria (ANES) 04-13 Drug form: l 21:26: INJ, ONCE, Stop date: 04/13/17 15:26:00 LEAD SOFTWARE ENGINEER propofol 2017-0 No Route: IV, Mem oria (ANES) 04-13 Drug form: l 21:21: INJ, ONCE, Stop date: 04/13/17 15:21:00 LEAD SOFTWARE ENGINEER lidocaine 2017-0 No Route: IV, Me moria (ANES) 04-13 Drug form: l 21:21: INJ, ONCE, Indra 00 Stop date: 04/13/17 15:21:00 LEAD SOFTWARE ENGINEER ceFAZolin 2017-0 No Route: IV, Me moria (ANES) 04-13 Drug form: l 21:16: INJ, ONCE, Indra 00 Stop date: 04/13/17 15:16:00 LEAD SOFTWARE ENGINEER Ondansetron 2018-0 No 4 mg, Memor ia 04-13 Route: l 21:04: IVP, ONCE, Wendell 00 Dosing Weight 93.182, kg, PRN Nausea & Vomiting, Start date: 04/13/17 15:04:00 LEAD SOFTWARE ENGINEER Albuterol 2018-0 No 2.49 mg, King kristina 0.83 MG/ML 04-13 Route: l Inhalant 21:04: NEB, Wendell Solution 00 Q20Min, Dosing Weight 93.182, kg, PRN Wheezing, Priority: STAT, Start date: 04/13/17 15:04:00 LEAD SOFTWARE ENGINEER, Duration: 30 day, Stop date: 05/13/17 15:03:00 LEAD SOFTWARE ENGINEER Metoprolol 2018-0 No 1 mg, Memori a 04-13 Route: l 21:04: IVP, Wendell 00 Q5Min, Dosing Weight 93.182, kg, PRN Other -See Comment, Start date: 04/13/17 15:04:00 LEAD SOFTWARE ENGINEER, Duration: 5 doses or times, Stop date: Limited # of times Morphine 2018-0 No 2 mg, Memoria 04-13 Route: l 21:04: IVP, Wendell 00 Q5Min, Dosing Weight 93.182, kg, PRN Pain Score 4-6, Start date: 04/13/17 15:04:00 LEAD SOFTWARE ENGINEER, Duration: 5 doses or times, Stop date: Limited # of times Acetaminoph 2018-0 No 1,000 mg, M emoria en 04-13 Route: PO, l 21:04: Drug form: Indra 00 TAB, ONCE, Dosing Weight 93.182, kg, PRN Pain Score 1-3, Start date: 04/13/17 15:04:00 LEAD SOFTWARE ENGINEER Flumazenil 2018-0 No 0.2 mg, King kristina 04-13 Route: l 21:04: IVP, PRN, Wendell 00 Dosing Weight 93.182, kg, PRN Benzodiaze pine Reversal, Initial dose, Start date: 04/13/17 15:04:00 LEAD SOFTWARE ENGINEER, Duration: 30 day, Stop date: 05/13/17 15:03:00 LEAD SOFTWARE ENGINEER Naloxone 2017- No 0.4 mg, Memori a 04-13 Route: l 21:04: IVP, Indra 00 Q2MIN, Dosing Weight 93.182, kg, PRN Narcotic Reversal, Start date: 04/13/17 15:04:00 LEAD SOFTWARE ENGINEER, Duration: 8 doses or times, Stop date: Limited # of times Hydromorpho No 0.5 mg, Mem oria ne 04-13 Route: l 21:04: IVP, Wendell 00 Q5Min, Dosing Weight 93.182, kg, PRN Pain Score 7-10, Start date: 04/13/17 15:04:00 LEAD SOFTWARE ENGINEER, Duration: 4 doses or times, Stop date: Limited # of times Calcium No 1,000 mL, Memor ia Chloride 04-13 Rate: 125 l 0.0014 21:04: ml/hr, Indra MEQ/ML / 00 Infuse Potassium over: 8 Chloride hr, Route: 0.004 IV, Dosing MEQ/ML / Weight Sodium 93.182 kg, Chloride Total 0.103 Volume: MEQ/ML / 1,000, Sodium Start Lactate date: 0.028 04/13/17 MEQ/ML 15:04:00 Injectable LEAD SOFTWARE ENGINEER, Solution Duration: 30 day, Stop date: 05/13/17 15:03:00 LEAD SOFTWARE ENGINEER, 2.15, m2 fentaNYL No Route: IV, Mem oria (ANES) 04-13 Drug form: l 21:01: INJ, ONCE, Wendell 00 Stop date: 04/13/17 15:01:00 LEAD SOFTWARE ENGINEER midazolam No Route: IV, Me moria (ANES) 04-13 Drug form: l 21:01: SOLN, Indra 00 ONCE, Stop date: 04/13/17 15:01:00 LEAD SOFTWARE ENGINEER acetaminoph No Route: IV, Memoria en (ANES) 04-13 Drug form: l 10 mg 20:45: INJ, Start Oleksandr n 00 date: 04/13/17 14:45:00 LEAD SOFTWARE ENGINEER, Stop date: 04/13/17 15:45:00 LEAD SOFTWARE ENGINEER Lactated No Route: IV, Mem oria Ringers - Total l Injection 20:17: Volume: Salud nn IV (ANES) 00 1,000, 1000 mL Start date: 04/13/17 14:17:00 LEAD SOFTWARE ENGINEER, Stop date: 04/13/17 15:17:00 LEAD SOFTWARE ENGINEER Ropivacaine No Notes: King kristina hydrochlori 04-13 (Same [...] #3] Propofol 2016-03 No 70 mg, Memoria - Route: IV, l 02:32: ONCE, Dosing Weight 95.5, kg, Start date: 03/18/17 20:32:00 LEAD SOFTWARE ENGINEER, Stop date: 03/18/17 20:32:00 LEAD SOFTWARE ENGINEER Propofol 2016-03 No 95.5 mg, Memor ia 05-20 Route: l 02:06: IVP, ONCE, Dosing Weight 95.5, kg, Priority: STAT, Start date: 03/18/17 20:06:00 LEAD SOFTWARE ENGINEER, Stop date: 03/18/17 20:06:00 LEAD SOFTWARE ENGINEER Zofran 2016-03 No Notes: Memoria 2-25 (Same as: l 01:02: Zofrbarbara) Indra MEDICATION WASTE Product Size: 4 mg Product Wasted: ___ mg Morphine 2016-03 No Notes: Memoria 2-25 (Same l 01:01: as:MORPhin Indra e Sulfate) oxyCODONE 5 2016-03 Yes 5 mg = 1 Me moria mg oral 1-04 tab, PO, l tablet 16:15: Q4H, PRN Indra Pain Score 4-6, X 14 day, # 40 tab, 0 Refill(s), given to patient acetaminoph 2016-03 Yes 650 mg = 2 Memoria en 325 mg 1-04 tab, PO, l oral tablet 16:15: Q4H, X 14 H ermann 00 day, # 90 tab, 0 Refill(s), Pharmacy: [facility] Toprol-XL 2016-03 No Notes: Memori a 25 mg oral 1-04 (Same as: l tablet, 14:00: Toprol XL) Herm greer extended 00 Do Not release Crush Protonix 2016-03 No Notes: Memoria 1-04 Tablet l 12:30: should not Wendell 00 be chewed or crushed. (Same as: Protonix) levothyroxi 2016-03 No Notes: King kristina ne 1-04 Take 1 l 11:30: hour Wendell 00 before or 2 hours after meal; Enteral feeds may interefere with the absorption of this medication .(Same as:Levothr oid, Synthroid) ketOROLAC 2016-03 No 4 days Memor ia 15 mg/mL 03-29 l injectable 06:58: MEDICATION H ermann solution 00 WASTE Product Size: 30 mg Product Wasted: 15 mg simvastatin 2016-03 No Notes: King kristina -04 (Same as: l 02:00: Zocor) Indra 00 melatonin 2016-03 No Notes: Memori a -04 (Same as: l 02:00: Melatonin) Wendell 00 albuterol 2016-03 No Notes: SEE moria -03 RT l 23:12: DOCUMENTAT Indra 00 ION (Same as: Proventil) ceFAZolin 2016-03 No Notes: Memori a (SCIP) 03-28 Same as: l 23:00: Ancef Wendell 00 Flomax 2016-03 No Notes: Memoria - (Same As: l 22:00: Flomax) Wendell 00 "Do Not Crush" rasagiline 2016-03 No Notes: Memor ia - Same as l 22:00: Azilect Indra 00 [...] Duration: 30 day, Stop date: 02/25/17 9:00:00 LEAD SOFTWARE ENGINEER ProAir HFA 2016-03 No Route: PO, M emoria 90 mcg/inh 03-28 Drug Form: l inhalation 22:00: AERO/A, Herm greer aerosol 00 Dosing with Weight adapter 96.619, kg, BID, Start date: 01/26/17 17:00:00 CDT, Duration: 30 day, Stop date: 02/25/17 9:00:00 LEAD SOFTWARE ENGINEER cloNIDine 2016-03 No Notes: Memori a 0.1 mg oral - (Same As: l tablet 21:07: Catapres) Oleksandr n 00 Vasotec 2016-03 No Notes: Memoria 03-28 (Same as: l 21:07: Vasotec-IV Wendell 00 ) albuterol 2016-03 No Notes: SEE Me moria 0.083% 1-03 RT l inhalation 21:06: DOCUMENTAT H ermann solution 00 ION (Same as: Proventil) acetaminoph 2016-03 No Notes: Do M emoria en 03-28 not exceed l 18:44: 4 gm/day. Wendell 00 (Same as: Tylenol) ropivacaine 2016-03 No 400 mL, 8 M emoria 400 mL 1-03 ml/hr, l 17:18: Route: Indra 00 NERVE BLOCK, Dosing Weight 96.619, kg, ONCE, Start date: 01/26/17 12:18:00 CDT, Stop date: 01/26/17 12:18:00 CDT ANES 2016-03 No 4 mg, Memoria ondansetron 03-28 Route: l 17:12: IVP, ONCE, Indra Dosing Weight 96.619, kg, PRN Nausea & Vomiting, Start date: 01/26/17 12:12:00 CDT ANES 2016-03 No 0.2 mg, Memoria flumazenil 03-28 Route: l 17:12: IVP, PRN, Indra Dosing Weight 96.619, kg, PRN Benzodiaze pine Reversal, Initial dose, Start date: 01/26/17 12:12:00 CDT, Duration: 30 day, Stop date: 02/25/17 11:11:00 [employer] ANES 2016-03 No 0.4 mg, Memoria naloxone 03-28 Route: l 17:12: IVP, Indra 00 Q2MIN, Dosing Weight 96.619, kg, PRN Narcotic Reversal, Start date: 01/26/17 12:12:00 CDT, Duration: 8 doses or times, Stop date: Limited # of times ANES 2016-03 No 2.49 mg, Memoria albuterol 03-28 Route: l 0.083% 17:12: NEB, Indra inhalation 00 Q20Min, solution Dosing Weight 96.619, kg, PRN Wheezing, Priority: STAT, Start date: 01/26/17 12:12:00 CDT, Duration: 30 day, Stop date: 02/25/17 11:11:00 [employer] albuterol 2016-03 No Route: IV, Me moria (ANES) 03-28 Drug form: l 17:03: AERO/A, ONCE, Stop date: 01/26/17 12:03:00 CDT glycopyrrol [...] Duration: 30 day, Stop date: 02/25/17 11:28:00 [employer] lidocaine 2016-03 No Route: IV, Me moria [...] 2016-03 No Dosing: Mem oria 250 mL 03-28 8cc/hr, l 16:01: Route: NERVE BLOCK, Start date: 01/26/17 11:01:00 CDT 250 mL, Dosing Weight 96.619, kg, Duration: 30 day, Stop date: 02/25/17 10:00:00 [employer] ANES 2016-03 No 12.5 mg, Memoria meperidine [...] date: 01/26/17 10:59:00 CDT ANE 2016-03 No 6.25 mg, Memoria promethazin 03-28 Route: l e 15:59: IVPB, Wendell 00 ONCE, Dosing Weight 96.619, kg, PRN Nausea & Vomiting, Start date: 01/26/17 10:59:00 CDT [facility] 2016-03 No 2.49 mg, Memoria albuterol 03-28 Route: l 0.083% 15:59: NEB, Wendell inhalation 00 Q20Min, solution Dosing Weight 96.619, kg, PRN Wheezing, Priority: STAT, Start date: 01/26/17 10:59:00 CDT, Duration: 30 day, Stop date: 02/25/17 9:58:00 [employer] [facility] 2016-03 No 0.2 mg, Memoria flumazenil 03-28 Route: l 15:59: IVP, PRN, Wendell 00 Dosing Weight 96.619, kg, PRN Benzodiaze pine Reversal, Initial dose, Start date: 01/26/17 10:59:00 CDT, Duration: 30 day, Stop date: 02/25/17 9:58:00 [employer] [facility] 2016-03 No 0.5 mg, Memoria HYDROmorpho 03-28 Route: l ne 15:59: IVP, Indra 00 Q5Min, Dosing Weight 96.619, kg, PRN Pain Score 7-10, Start date: 01/26/17 10:59:00 CDT, Duration: 4 doses or times, Stop date: Limited # of times [facility] 2016-03 No 10 mg, Memoria labetalol 03-28 Route: l 15:59: IVP, Wendell 00 Q5Min, Dosing Weight 96.619, kg, PRN [...] 03-28 Drug form: l 15:32: INJ, ONCE, Wendell Stop date: 01/26/17 10:32:00 CDT ePHEDrine 2016-03 No Route: IV, Me moria (ANES) 03-28 Drug form: l 15:32: INJ, ONCE, Wendell Stop date: 01/26/17 10:32:00 CDT ceFAZolin 2016-03 No Route: IV, Me moria (ANES) 03-28 Drug form: l (ANES) 15:00: INJ, Start Salud date: 01/26/17 10:00:00 CDT, Stop date: 01/26/17 11:00:00 CDT LR 1000 mL 2016-03 No Route: IV, M emoria INJ (ANES) 03-28 Total l 14:53: Volume: Wendell 00 1,000, Start date: 01/26/17 9:53:00 CDT, Stop date: 01/26/17 10:53:00 CDT ceFAZolin 2 2016-03 No Notes: King kristina gm + -03 (Same As: l sterile 05:00: Ancef, Indra water 20 mL 00 Kefzol) MEDICATION WASTE Product Size: 1000 mg Product Wasted: ___ mg Asmanex HFA 2016-03 Yes See Yoni a 0-30 Instructio l 17:59: ns, Wendell 00 INHALATION BID, 0 Refill(s) ProAir HFA 2016-03 Yes 1 - 2 Memori a 0-30 puffs, PO, l 17:47: BID, # 1 Wendell 00 ea, 0 Refill(s) metoprolol 2016-03 Yes [...] tablet hours. ergocalcife Yes Take by Met verna rol 1-[address] (VITAMIN 00:00: Hospita [...] 100 mg = 1 Me moria Hydrochlori tab, PO, l de 100 MG 16:18: Bedtime, Herm greer Oral Tablet 00 PRN Insomnia, # 30 tab, 1 Refill(s), Pharmacy: [facility] Ventolin 2015-03 Yes 2 puff, Memori a HFA 90 INHALER, l mcg/inh 16:18: Q6H, PRN Oleksandr n inhalation 00 wheezing, aerosol coughing, with or adapter shortness of breath, Dispense quantity sufficient for 100 uses., # 1 ea, 1 Refill(s), Pharmacy: [facility] multivitami 2015-03 Yes PO, Daily, Memoria n with 0 l minerals 16:18: Refill(s) Herm greer 00 psyllium 2015-03 Yes 1 pkt, PO, Mem oria 3.4 g/5.8 g Daily, 0 l oral powder 16:18: Refill(s) H ermann 00 senna 8.6 2015-03 Yes 17.2 mg = Mem oria mg oral 2 tab, PO, l tablet 16:18: QNoon, 0 Wendell 00 Refill(s) Thyroxine 2015-03 No Notes: Memori a - Take 1 l 12:30: hour Wendell 00 before or 2 hours after meal; Enteral feeds may interefere with the absorption of this medication .(Same as:Levothr oid, Synthroid) Maalox 2015-03 No Notes: Memoria Advanced 05-23 (aluminum l Regular 15:19: hydroxide- Herm greer Strength 00 magnesium SUSP hyd-simeth icone 200-200-20 mg/5ml 30 ml ud IMTIAZ) Acetaminoph 2015-03 No Notes: Do M emoria en - not exceed l 00:00: 4 gm/day. Wendell 00 (Same as: Tylenol) Tylenol 2015-03 No Notes: Do Memor ia 2-25 not exceed l 22:06: 4 gm/day. Wendell 00 (Same as: Tylenol) senna 8.6 2015-03 No Notes: Memori a mg oral 2-25 (Same as: l tablet 18:00: Senokot) Indra 00 Metamucil 2015-03 No Notes: Memori a 2-25 (Same as: l 14:30: Konsyl) Indra Mix in 8 oz liquid with meal. aspirin 81 2015-03 No Notes: Do Me moria mg tablet, 2-25 not crush l enteric 14:30: or chew. Oleksandr n coated 00 (Same As: Ecotrin) Ceftriaxone 2015-03 No Notes: King kristina 2-24 (Same As: l 18:00: Rocephin). Wendell 00 Use with 100 mL NS and infuse over 30 min MEDICATION WASTE Product Size: 1000 mg Product Wasted: _0__ mg Enoxaparin 2015-03 No Notes: Memor ia 2-24 (Same as: l 18:00: Lovenox) Wendell Thiamine 2015-03 No Notes: Memoria 2-24 (Same As: l 14:30: Vitamin Indra 00 B1) Flomax 2015-03 No Notes: Memoria 2-24 (Same As: l 14:30: Flomax) Wendell 00 "Do Not Crush" POLYETHYLEN 2015-03 No Notes: King kristina E GLYCOL 2-24 Dissolve l 3350 14:30: in 8 oz of Wendell water or juice. (Same as: Miralax) M.V.I. 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 Indra 00 ascorbic 2015-03 No Notes: Memoria acid 2-24 (Same as: l 14:30: Vitamin C) Indra multivitami 2015-03 No Notes: King kristina n [...] n 2-24 (Same as: l 03:00: Lipitor) Indra Acetaminoph 2015-03 No Notes: Do M emoria en 2-24 not exceed l 01:09: 4 gm/day. Indra 00 (Same as: Tylenol) Levetiracet 2015-03 No 1,500 mg, M emoria am 2-24 Route: IV, l 01:09: PRN, Wendell 00 Dosing Weight 87.136, kg, PRN Seizure, Start date: 03/17/16 19:09:00 LEAD SOFTWARE ENGINEER, Duration: 30 day, Stop date: 04/16/16 19:08:00 LEAD SOFTWARE ENGINEER Midazolam 2015-03 No 40 kg Memori a 2-24 l 01:09: Wendell 00 Bisacodyl 2015-03 No Notes: Memori a 2-24 (Same As: l 01:09: Dulcolax, Wendell 00 Bisco-Lax) Albuterol 2015-03 No Notes: SEE [...] tab, PO, l tablet 22:07: Daily, 0 Wendell 00 Refill(s) POLYETHYLEN 2015-03 Yes PO, Daily, Memoria E GLYCOL 2-23 0 l 3350 22:07: Refill(s) Indra 00 pantoprazol 2015-03 Yes 40 mg = 1 M emoria e 40 mg 2-23 tab, PO, l oral 22:07: BID, 0 Wendell enteric 00 Refill(s) coated tablet Menthol 2015-03 [...] tab, PO, l Tablet 22:07: Daily, 0 Wendell 00 Refill(s) enoxaparin 2015-03 Yes 40 mg = King kristina 40 mg/0.4 2-23 0.4 mL, l mL 22:07: SUB-Q, Indra subcutaneou 00 [id number], s solution 0 Refill(s) cyanocobala 2015-03 Yes 1,000 Memor ia min 1000 2-23 microgram l mcg 22:07: = 1 tab, Indra sublingual 00 PO, Daily, tablet 0 Refill(s) 168 HR 2015-03 Yes 1 patch, Memoria Clonidine 2-23 TOP, Q7D, l 0.14820 22:07: 0 Indra MG/HR 00 Refill(s) Transdermal Patch [Catapres-T TS-2] Clotrimazol 2015-03 Yes 1 appl, Mem oria e 10 MG/ML 2-23 TOP, BID, l Topical 22:07: 0 Wendell Cream 00 Refill(s) cefTRIAXone 2015-03 Yes 2 gm, Memor ia 2 g 2-23 IVPB, l injection 22:07: [id number], 0 He rmann 00 Refill(s) benzonatate 2015-03 [...] Memoria 2-23 (Same as: l 04:26: Ativan) Wendell 00 Ceftriaxone 2015-03 No Notes: King kristina 2-21 (Same As: l 18:00: Rocephin). Indra 00 Use with 100 mL NS and infuse over 30 min MEDICATION WASTE Product Size: 2000 mg Product Wasted: ___ mg Miralax 2015-03 No Notes: Memoria 2-21 Dissolve l 17:00: in 8 oz of Wendell water or juice. (Same as: Miralax) glycerin 2016- No 1 supp, Memori a adult -21 Route: [place], l rectal 16:23: Drug Form: Salud nn suppository 00 SUPP, Dosing Weight 88.636, kg, Daily, PRN Constipati on, Start date: 03/15/16 10:23:00 LEAD SOFTWARE ENGINEER, Duration: 30 day, Stop date: 04/14/16 10:22:00 LEAD SOFTWARE ENGINEER Vancomycin 2015-03 No 2001 mg: Me moria 2-20 infuse l 18:00: over 2.5 Wendell 00 hours MEDICATION WASTE Product Size: 1000 mg Product Wasted: ___ mg Zosyn 2015-03 No Notes: Memoria 2-20 (Same as: l 17:00: Zosyn) Wendell 00 Dosing based on Piperacill in component MEDICATION WASTE Product Size: 3375 mg Product Wasted: ___ mg Protonix 2015-03 No Notes: Memoria 2-19 Tablet l 23:00: should not be chewed or crushed. (Same as: Protonix) Tessalon 2015-03 No Notes: Memoria Perles 2-19 (Same As: l 19:00: Tessalon Perles) "Do Not Crush" Vitamin C 2015-03 No Notes: Memori a 2-19 (Same as: l 15:00: Vitamin C) Wendell 00 Vitamin B12 2015-03 No 1,000 Memor ia 2-19 microgram, l 15:00: Route: PO, Wendell 00 Drug form: TAB, Daily, Dosing Weight 88.636, kg, Start date: 03/13/16 9:00:00 LEAD SOFTWARE ENGINEER, Duration: 30 day, Stop date: 04/11/16 9:00:00 LEAD SOFTWARE ENGINEER Thiamine 2015-03 No 100 mg, Memori a 2-19 Route: PO, l 15:00: Drug form: Wendell 00 TAB, Daily, Dosing Weight 88.636, kg, Start date: 03/13/16 9:00:00 LEAD SOFTWARE ENGINEER, Duration: 30 day, Stop date: 04/11/16 9:00:00 LEAD SOFTWARE ENGINEER Vitamin C 2015-03 No Notes: Memori a 2-18 (Same as: l 15:00: Vitamin C) Wendell 00 Vitamin B12 2015-03 No Notes: King kristina 2-18 (Same As: l 15:00: Vitamin B-12) Thiamine 2015-03 No Notes: Memoria 2-18 (Same As: l 15:00: Vitamin Wendell 00 B1) Folic Acid 2015-03 No Notes: Memor ia 2-18 (Same as: l 15:00: Folvite) Wendell TPN 2015-03 No Notes: Per Memoria solution, 2-18 hospital l adult 900 00:00: policy, Salud nn mL 00 bag must be changed every 24hr. TPN 2015-03 No Notes: Per Memoria solution, 2-17 hospital l adult 900 00:00: policy, Salud nn mL 00 bag must be changed every 24hr. Calmoseptin 2015-03 No Notes: King kristina e 2-16 (Same as: l 19:03: Calmosepti Wendell 00 ne) Clotrimazol 2015-03 No Notes: For [...] chloride 2-14 (Same as: l 18:00: KCL) Wendell 00 Infuse no faster than 10 mEq/hr if given peripheral ly. Isolyte S 2015-03 No Notes: Memori a PH-7.4 2-14 (Same as: l (Bolus) IV 17:13: Isolyte S He rmann 00 PH7.4) Ergocalcife 2015-03 No Notes: King kristina rol 31688 2-14 (Same as: l UNT Oral 16:36: Vitamin D) Her mcgrath Capsule 00 "Do Not Crush" potassium 2015-03 No Notes: Memori a chloride 2-14 (Same as: l 00:09: KCL) Wendell Infuse no faster than 10 mEq/hr if given peripheral ly. TPN 2015-03 No Notes: Per Memoria solution, - [facility] l adult 900 00:00: Salud hernandez nn mL 00 bag must be changed every 24hr. Dextrose 2015-03 No 12.5 gm, Memor ia 50% Syringe - 25 mL, l 22:09: Route: Wendell 00 IVP, Drug Form: INJ, Dosing Weight 88.636, kg, PRN, PRN Blood Glucose Results, Start date: 03/07/16 16:09:00 LEAD SOFTWARE ENGINEER, Duration: 30 day, Stop date: 04/06/16 16:08:00 LEAD SOFTWARE ENGINEER Glucagon 2015-03 No 1 mg, Memoria - Route: IM, l 22:09: Drug form: Wendell 00 PDR/INJ, PRN, Dosing Weight 88.636, kg, PRN Blood Glucose Results, Start date: 03/07/16 16:09:00 LEAD SOFTWARE ENGINEER, Duration: 30 day, Stop date: 04/06/16 16:08:00 LEAD SOFTWARE ENGINEER Insulin, 2015-03 No Notes: Memoria Aspart, - Roll in l Human 22:09: palms of Wendell 00 hands gently; Do not shake vigorously . (Same as: NovoLOG) "single patient use only" WASTE: F/P - Black; E - Municipal Trash Bin Stable for 28 days at room temperatur e. Expires in days from ____Date potassium 2015-03 No Notes: Memori a chloride 2-13 (Same as: l 12:00: KCL) Wendell 00 Infuse no faster than 10 mEq/hr if given peripheral ly. Isolyte S 2015-03 No Notes: Memori a PH-7.4 -13 (Same as: l (Bolus) IV 05:59: Isolyte S He rmann 00 PH7.4) TPN 2015-03 No Notes: Per Memoria solution, 2- [facility] l adult 900 00:00: policy, Salud [...] n 2-12 (Same as: l 03:00: Lipitor) Wendell 00 Isolyte S 2015-03 No Notes: Memori a PH-7.4 -12 (Same as: l (Bolus) IV 00:09: Isolyte S He rmann 00 PH7.4) TPN 2015-03 No Notes: Per Memoria solution, 2-12 hospital l adult 900 00:00: policy, Aslud nn mL 00 bag must be changed every 24hr. potassium 2015-03 No Notes: Memori a phosphate + 2-11 (Same as: l sodium 18:13: K Wendell chloride 00 Phosphate. 0.9% INJ ) 1 [...] chloride 2-11 (Same as: l 15:15: KCL) Wendell 00 Infuse no faster than 10 mEq/hr [...] 2-11 hospital l adult 900 00:00: policy, Aslud nn mL 00 bag must be changed every 24hr. potassium 2015-03 No Notes: Memori a phosphate + 2-10 (Same as: l sodium 23:00: K Wendell chloride 00 Phosphate. 0.9% INJ ) 1 mMol 250 mL phoshate has 1.47 mEq potassium Infuse over 4 hours potassium 2015-03 No 2 pkt, Memori a phosphate-s 2 Route: PO, l odium 17:29: Dosing Indra phosphate 00 Weight 250 mg-280 88.636, mg-160 mg kg, ONCE, oral powder Start for date: reconstitut 03/04/16 ion 11:29:00 LEAD SOFTWARE ENGINEER, Stop date: 03/04/16 11:29:00 LEAD SOFTWARE ENGINEER potassium 2015-03 No Notes: Memori a chloride 2-10 (Same as: l 17:00: KCL) Indra 00 Infuse no faster than 10 mEq/hr if given peripheral ly. potassium 2015-03 No Notes: Memori a phosphate + 2-10 (Same as: l sodium 16:56: K Wendell chloride 00 Phosphate. 0.9% INJ ) 1 mMol 250 mL phoshate has 1.47 mEq potassium Infuse over 4 hours Isolyte S 2015-03 No Notes: Memori a PH-7.4 2-10 (Same as: l (Bolus) IV 16:31: Isolyte S He rmann 00 PH 7.4) TPN 2015-03 No Notes: Per Memoria solution, 2- hospital l adult 900 00:00: policy, Salud nn mL 00 bag must be changed every 24hr. potassium 2015-03 No 10 mEq, Memor ia chloride 05-04 Route: l 23:00: IVPB, Q1H, Wendell 00 Dosing Weight 88.636, kg, Total Dose = 40 meq, Start date: 03/03/16 17:00:00 LEAD SOFTWARE ENGINEER, Duration: 4 doses or times, Stop date: 03/03/16 20:00:00 LEAD SOFTWARE ENGINEER, Periphe ral Line Dilaudid 2015-03 No Notes: Memoria 2- Same as l 20:44: Dilaudid Indra 00 Synthroid 2015-03 No Notes: Memori a 2- (Same as: l 16:30: Synthroid) Wendell potassium 2015-03 No Notes: Memori a phosphate-s 2- (Same as: l odium 16:30: Phos-NaK) Wendell phosphate Each 1.5 gm pkt has 250mg phosphorou s. Mix w/2.5oz water and stir. potassium 2015-03 No Notes: Memori a chloride 05-04 (Same as: l 15:00: KCL) Wendell 00 Infuse no faster than 10 mEq/hr if given peripheral ly. potassium 2015-03 No 10 mEq, Memor ia chloride 05-04 Route: l 14:00: IVPB, Q1H, Wendell Dosing Weight 88.636, kg, Total Dose = 40 meq, Start date: 03/03/16 8:00:00 LEAD SOFTWARE ENGINEER, Duration: 4 doses or times, Stop date: 03/03/16 11:00:00 LEAD SOFTWARE ENGINEER, Periphe ral Line Calmoseptin 2015-03 No Notes: King kristina e 2- (Same as: l 13:59: Calmosepti Indra 00 ne) Erythromyci 2015-03 No Notes: King kristina n 2- (Same as: l 00:00: erythromyc Indra 00 in lactobiona te) TPN 2015-03 No Notes: Per Memoria solution, 05-04 hospital l adult 900 00:00: policy, Salud nn mL 00 bag must be changed every 24hr. Saline 2015-03 No Notes: Memoria Flush 0.9% 2-08 (Same as: l 22:00: BD Indra Posiflush) Lidocaine 2015-03 No Notes: Memori a Hydrochlori 2-08 (Same as: l de 10 MG/ML 19:00: Xylocaine) Indra Injectable 00 Solution Saline 2015-03 No Notes: Memoria Flush 0.9% 2-08 (Same as: l 18:01: BD Indra 00 Posiflush) Iohexol 2015-03 No Notes: Memoria 2-07 (Same l 22:28: as:Omnipaq Wendell 00 ue 350). WASTE: F/P - Black; [...] WASTE: F/P l 01:10: - Black; E Wendell 00 - Municipal Trash Bin Stable for 28 days at room temperatur e Expires in days from ____Date Dextrose 2015-03 No 12.5 gm, Memor ia 50% Syringe 05-02 25 mL, l 01:10: Route: Wendell 00 IVP, Drug Form: INJ, Dosing Weight 88.636, kg, PRN, PRN Abnormal Lab Result, Start date: 02/29/16 19:10:00 LEAD SOFTWARE ENGINEER, Duration: 30 day, Stop date: 03/30/16 19:09:00 LEAD SOFTWARE ENGINEER, For FSBG 40 mg/dL - 60 mg/dL Reglan 2015-03 No Notes: Memoria 2-07 (Same as: l 00:00: Reglan) Indra 00 potassium 2015-03 No Notes: Memori a chloride 2-07 (Same as: l 00:00: KCL) Indra 00 Infuse no faster than 10 mEq/hr if given peripheral ly. potassium 2015-03 No Notes: Memori a chloride 2-06 (Same as: l 23:00: KCL) Wendell 00 Infuse no faster than 10 mEq/hr if given peripheral ly. Morphine 2015-03 No Notes: Memoria 2-06 (Same l 22:51: as:MORPhin Indra 00 e Sulfate) Xopenex 2015-03 No Notes: SEE King kristina 2-06 RT l 20:34: DOCUMENTAT Indra 00 ION (Same as:Xopenex ) Non-Formul lety D5NS 1,000 2015-03 No 1,000 mL, Me moria mL - Rate: 50 l 20:34: ml/hr, Indra 00 Infuse over: 20 hr, Route: IV, Dosing Weight 88.636 kg, Total Volume: 1,000, Start date: 02/29/16 14:34:00 LEAD SOFTWARE ENGINEER, Duration: 30 day, Stop date: 03/30/16 14:33:00 LEAD SOFTWARE ENGINEER Vancomycin 2015-03 No 2000 mg: Me moria 2-06 infuse l 15:00: over 2.5 Wendell 00 hours MEDICATION WASTE Product Size: 1000 mg Product Wasted: ___ mg Golytely 2015-03 No Notes: Memoria 2-06 (polyethyl l 03:00: vickey glycol electrolyt e solution 4 Liter bottle) (Same as: Golytely, Colyte) Bisacodyl 2015-03 No Notes: Memori a 2-05 (Same As: l 21:55: Dulcolax, Wendell 00 Bisco-Lax) Reglan 2015-03 No Notes: Memoria 2-05 (Same as: l 18:00: Reglan) Wendell 00 Lactulose 2015-03 No 1,000 ml, Mem oria 2-05 Route: [place], l 16:04: Drug Form: Wendell 00 NICHOLAS, Dosing Weight 88.636, kg, ONCE, Start date: 02/28/16 10:04:00 LEAD SOFTWARE ENGINEER, Duration: 1 doses or times, Stop date: 02/28/16 10:04:00 LEAD SOFTWARE ENGINEER, 300 mL lactulose + 700 mL water 168 HR 2015-03 No Notes: Memoria Clonidine 2-05 Patch l 0.39756 15:00: delivers Oleksandr n MG/HR 00 0.2 mg/24 Transdermal hours; Patch Patch is [Catapres-T applied TS-2] weekly. "Remove old patch before applicatio n of new patch" (Same As: Catapres-T TS-2) Thiamine 2016-1 No Notes: Memoria 2-05 (Same As: l 15:00: Vitamin Indra 00 B1) Acetaminoph 2015-03 No Notes: Max Memoria en 2-05 acetaminop l 13:29: hen 4000 Wendell 00 mg/day (4 gm/day). (Same as: Tylenol Extra Strength) mineral oil 2015-03 No Notes: King kristina 2-05 (Same l 03:00: as:Fleet Indra 00 Mineral Oil Enema) iodixanol 2015-03 No 92 mL, Memori a 2-04 Route: l 21:46: IVP, Drug Wendell 00 Form: SOLN, Dosing Weight 88.636, kg, ONCALL, STAT, Start date: 02/27/16 15:46:00 LEAD SOFTWARE ENGINEER, Duration: 1 doses or times, Dose = 2.2ml/kg, Max dose = 100ml -- "To be infused by Radiology Staff ONLY" Zosyn 2015-03 No Notes: Memoria 2-04 (Same as: l 19:00: Zosyn) Indra Dosing based on Piperacill in component MEDICATION WASTE Product Size: 3375 mg Product Wasted: _0__ mg Vancomycin 2015-03 No 2000 mg: Me moria 2-04 infuse l 19:00: over 2.5 Wendell 00 hours MEDICATION WASTE Product Size: 1000 [...] 2-04 mL, Route: l 18:47: IVP, Drug Wendell 00 Form: INJ, Dosing Weight 88.636, kg, PRN, PRN Blood Glucose Results, Start date: 02/27/16 12:47:00 LEAD SOFTWARE ENGINEER, Duration: 30 day, Stop date: 03/28/16 12:46:00 LEAD SOFTWARE ENGINEER Glucagon 2015-03 No 1 mg, Memoria 2- Route: IM, l 18:47: Drug form: Indra 00 PDR/INJ, PRN, Dosing Weight 88.636, kg, PRN Blood Glucose Results, Start date: 02/27/16 12:47:00 LEAD SOFTWARE ENGINEER, Duration: 30 day, Stop date: 03/28/16 12:46:00 LEAD SOFTWARE ENGINEER D5NS 1,000 2015-03 No 1,000 mL, Me moria mL 04-29 Rate: 100 l 18:29: ml/hr, Wendell 00 Infuse over: 10 hr, Route: IV, Dosing Weight 88.636 kg, Total Volume: 1,000, Start date: 02/27/16 12:29:00 LEAD SOFTWARE ENGINEER, Duration: 30 day, Stop date: 03/28/16 12:28:00 LEAD SOFTWARE ENGINEER Sodium 2015-03 No 1,000 mL, Memori a Chloride 2-04 1,000 l 0.154 16:43: ml/hr, Wendell MEQ/ML 00 Infuse Injectable Over: 1 Solution hr, Route: IV, 1,000, Drug form: INJ, ONCE, Priority: STAT, Dosing Weight 88.636 kg, Start date: 02/27/16 10:43:00 LEAD SOFTWARE ENGINEER, Duration: 1 doses or times, Stop date: 02/27/16 10:43:00 LEAD SOFTWARE ENGINEER Protonix 2015-03 No 40 mg, Memoria 04-29 Route: l 15:00: IVP, Drug Wendell 00 form: INJ, BID, Dosing Weight 88.636, kg, Start date: 02/27/16 9:00:00 LEAD SOFTWARE ENGINEER, Duration: 30 day, Stop date: 03/27/16 17:00:00 LEAD SOFTWARE ENGINEER Sodium 2015-03 No 1,000 mL, Memori a Chloride 2-04 1,000 l 0.154 14:57: ml/hr, Wendell MEQ/ML 00 Infuse Injectable Over: 1 Solution hr, Route: IV, 1,000, Drug form: INJ, ONCE, Priority: STAT, Dosing Weight 88.636 kg, Start date: 02/27/16 8:57:00 LEAD SOFTWARE ENGINEER, Duration: 1 doses or times, Stop date: 02/27/16 8:57:00 LEAD SOFTWARE ENGINEER Erythromyci 2015-03 No Notes: King kristina n 2-04 (Same as: l 12:00: erythromyc Indra 00 in lactobiona te) Metoprolol 2015-03 No Notes: Memor ia 2-04 (Same as: l 11:36: Lopressor) Push over 2 minutes Lactulose 2015-03 No Notes: Memori a 2-04 (Same l 11:28: as:Chronul Indra 00 ac) magnesium 2015-03 No Notes: Memori a citrate 2-04 (Same as: l 58.2 MG/ML 02:02: Citrate of H ermann Oral 00 Magnesia) Solution Concentrat ion: 1.745 gm / 30 mL Simethicone 2015-03 No Notes: King kristina 2-04 (Same as: l 00:00: Mylicon) gabapentin 2015-03 No Notes: Memor ia 100 MG Oral 2-03 (Same as: l Capsule 20:00: Neurontin) magnesium 2015-03 No Notes: Memori a citrate 2-03 (Same as: l 58.2 MG/ML 19:01: Citrate of H ermann Oral 00 Magnesia) Solution Concentrat ion: 1.745 gm / 30 mL Simethicone 2015-03 No Notes: King kristina 2-02 (Same as: l 02:01: Mylicon, Wendell 00 Phazyme, Genasyme) molasses 2015-03 No Notes: Memoria 2-02 (Same l 02:01: as:Molasse s) Bisacodyl 2015-03 No Notes: Memori a 2-01 (Same As: l 17:33: Dulcolax, Bisco-Lax) Aspirin 2015-03 No Notes: Memoria 2-01 Take with l 15:00: food. Miralax 2015-03 No Notes: Memoria 2-01 Dissolve l 15:00: in 8 oz of water or juice. (Same as: Miralax) Lovenox 2015-03 No Notes: Memoria 2-01 (Same as: l 03:00: Lovenox) Lipitor 2015-03 No Notes: Memoria 2-01 (Same as: l 00:30: Lipitor) Aspirin 325 2015-03 No Notes: King kristina MG Oral 2-01 Take with l Tablet 00:13: food. aspirin 81 2015-03 No Notes: Memor ia mg tablet, 2-01 Take with l chewable 00:00: food. iodixanol 2015-03 No 100 mL, Memor ia 04-24 Route: l 22:52: IVP, Drug Form: SOLN, Dosing Weight 88.636, kg, ONCALL, STAT, Start date: 02/23/16 16:52:00 LEAD SOFTWARE ENGINEER, Duration: 1 doses or times, Dose = 2.2ml/kg, Max dose = 150ml -- "To be infused by Radiology Staff ONLY" Iohexol 2015-03 No Notes: Memoria 04-24 (Same l 15:15: as:Omnipaq ue 350). WASTE: F/P - Black; E - Municipal Trash Bin Vitamin D2 2015-03 No Notes: Memor ia 04-23 (Same as: l 19:30: Vitamin D) "Do Not Crush" Vitamin D3 2015-03 No 50,000 Memor ia 04-23 IntlUnit, l 17:32: Route: PO, ONCE, Dosing Weight 88.636, kg, Start date: 02/22/16 11:32:00 LEAD SOFTWARE ENGINEER, Stop date: 02/22/16 11:32:00 LEAD SOFTWARE ENGINEER Docusate 2015-03 No Notes: Memoria Sodium 100 04-23 (Same as: l MG Oral 15:00: Colace) Capsule 00 [Colace] Flomax 2015-03 No Notes: Memoria 04-23 (Same As: l 15:00: Flomax) "Do Not Crush" gabapentin 2015-03 No Notes: Memor ia 300 MG Oral 04-23 (Same as: l Capsule 15:00: Neurontin) multivitami 2015-03 No Notes: King kristina n 04-23 (Same l 15:00: as:Thera) WASTE: F/P - Black; E - Municipal Trash Bin Take with food. Thyroxine 2015-03 No Notes: Memori a 04-23 Take 1 l 15:00: hour before or 2 hours after meal; Enteral feeds may interefere with the absorption of this medication .(Same as:Levothr oid, Synthroid) Nexium 2015-03 No 40 mg, Memoria 04-23 Route: PO, l 15:00: Drug form: Indra 00 ECCAP, Daily, Dosing Weight 88.636, kg, Start date: 02/22/16 9:00:00 LEAD SOFTWARE ENGINEER, Duration: 30 day, Stop date: 03/22/16 9:00:00 LEAD SOFTWARE ENGINEER Cymbalta 2015-03 No Notes: Memoria 04-23 (Same as: l 15:00: Cymbalta) Wendell 00 (Do Not Crush) Vitamin D3 2015-03 No 50,000 Memor ia 04-23 IntlUnit, l 13:42: Route: PO, Wendell 00 ONCE, Dosing Weight 88.636, kg, Start date: 02/22/16 7:42:00 LEAD SOFTWARE ENGINEER, Stop date: 02/22/16 7:42:00 LEAD SOFTWARE ENGINEER Morphine 2015-03 No Notes: Memoria 04-23 (Same l 13:34: as:MORPhin Wendell 00 e Sulfate) Acetaminoph 2015-03 No Notes: Do M emoria en 300 MG / 04-23 not exceed l Codeine 13:33: 4gm/day of Herm greer Phosphate 00 acetaminop 30 MG Oral hen. (Same Tablet as: [Tylenol Tylenol with with Codeine #3] Codeine # 3) Protonix 2015-03 No Notes: Memoria 04-23 Tablet l 13:30: should not Indra 00 be chewed or crushed. (Same as: Protonix) gabapentin 2015-03 No Notes: Memor ia 300 MG Oral 04-23 (Same as: l Capsule 06:00: Neurontin) Herm greer 00 Vitamin D3 2015-03 No Vitamin D3 M emoria 50,000 04-23 50,000 l IntlUnit 05:10: IntlUnit, Herm greer 00 1 tab, Drug form: MISC, Route: PO, ONCE, 02/21/16 23:10:00 [employer], Stop date: 02/21/16 23:10:00 [employer] Simvastatin 2015-03 No Notes: King kristina 04-23 (Same as: l 03:00: Zocor) Indra 00 albumin 2015-03 No 500 mL, Memoria human 5% 04-23 Route: IV, l intravenous 02:46: Dosing Herm greer solution 00 Weight 88.636, kg, ONCE, Start date: 02/21/16 20:46:00 [employer], Stop date: 02/21/16 20:46:00 [employer] Flumazenil 2015-03 No Notes: Memor ia 04-23 (Same as: l 02:05: Romazicon) Wendell 00 Hydromorpho 2015-03 No Notes: King kristina ne 04-23 Same as l 02:05: Dilaudid Labetalol 2015-03 No 10 mg, 2 King kristina - mL, Route: l 02:05: IVP, Drug form: INJ, Q5Min, Dosing Weight 88.636, kg, PRN Elevated BP, Start date: 02/21/16 20:05:00 [employer], Duration: 5 doses or times, Stop date: Limited # of times Naloxone 2015-03 No Notes: Memoria 04-23 Same as l 02:05: Narcan Ondansetron 2015-03 No Notes: King kristina 04-23 (Same as: l 02:05: Zofran) MEDICATION WASTE Product Size: 4 mg Product Wasted: ___ mg Ancef 2015-03 No Notes: Memoria 04-23 Same as: l 02:00: Ancef tramadol 2015-03 No Notes: Not Mem oria hydrochlori 04-23 to exceed l de 50 MG 02:00: 400mg/day. Her mcgrath Oral Tablet 00 (Same As: Ultram) Morphine 2015-03 No Notes: Memoria 04-23 Dose: l 01:30: Delay: Basal rate: 4hr limit: (Same as:Minoo ram) Vitamin D3 2015-03 No 50,000 Memor ia 04-23 IntlUnit, l 01:26: Route: PO, Indra ONCE, Dosing Weight 88.636, kg, Start date: 02/21/16 19:26:00 LEAD SOFTWARE ENGINEER, Stop date: 02/21/16 19:26:00 LEAD SOFTWARE ENGINEER Naloxone 2015-03 No Notes: Memoria 04-23 Same [...] kristina 04-22 (Same as: l 12:48: Zofran) MEDICATION WASTE Product Size: 4 mg Product Wasted: ___ mg Hydromorpho 2015-03 No Notes: King kristina ne 04-22 Same as l 12:48: Dilaudid Labetalol 2015-03 No 10 mg, 2 King kristina 04-22 mL, Route: l 12:48: IVP, Drug form: INJ, Q5Min, Dosing Weight 88.636, kg, PRN Elevated BP, Start date: 02/21/16 6:48:00 LEAD SOFTWARE ENGINEER, Duration: 5 doses or times, Stop date: Limited # of times Hydralazine 2015-03 No Notes: King kristina 04-22 (Same as: l 12:48: Apresoline ) Push over 5 minutes ceFAZolin 2015-03 No Notes: Memori a 04-22 Same as: l 09:00: Ancef Indra 00 Thyroxine 2015-03 Yes 50 Memoria 1-15 microgram, l 17:19: PO, Daily, Indra 00 0 Refill(s) Esomeprazol 2015-03 No 40 mg [...] Memoria 1-15 PO, Daily, l 17:19: 0 Wendell 00 Refill(s) multivitami 2016-1 Yes PO, Daily, Memoria n 1-15 0 [...] Date Status Commen ts Source Name Name [employer] 2020-05-04 Completed [facility] COVID-19 Vacc 30 00:00:00 MCG/0.3ML Intramuscular Suspension PFIZER COVID-19 MRNA 2020-05-04 Completed Meth [facility]ist VACCINATION 00:00:00 [facility] PFIZER COVID-19 MRNA 2020-05-04 Completed Meth odist VACCINATION 00:00:00 [facility] PFIZER COVID-19 MRNA 2020-05-04 Completed Meth odist VACCINATION 00:00:00 [facility] PFIZER COVID-19 MRNA 2020-05-04 Completed Meth odist VACCINATION 00:00:00 [facility] [employer] 2020-04-13 Completed [facility] COVID-19 Vacc 30 00:00:00 MCG/0.3ML Intramuscular Suspension PFIZER COVID-19 MRNA 2020-04-13 Completed Meth odist VACCINATION 00:00:00 [facility] PFIZER COVID-19 MRNA 2020-04-13 Completed Meth odist VACCINATION 00:00:00 [facility] PFIZER COVID-19 MRNA 2020-04-13 Completed Meth odist VACCINATION 00:00:00 [facility] PFIZER COVID-19 MRNA 2020-04-13 Completed Meth odist VACCINATION 00:00:00 [facility] FLUCELVAX QUAD PF 2019-10-[address] 00:00:00 [facility] FLUCELVAX QUAD PF 2019-10-[address] 00:00:00 [facility] FLUCELVAX QUAD PF 2019-10-[address] 00:00:00 [facility] FLUCELVAX QUAD PF 2019-10-14 Completed Methodi [...] HIGH-DOSE PF 2017-12-03 Completed Meth odist 00:00:00 [facility] pneumococcal 2017-05-07 Completed [facility] mcgrath 13-valent vaccine 15:03:00 Pneumococcal 2017-05-07 Completed [facility] 13-[facility]:00:00 [facility] Pneumococcal 2017-05-07 Completed [facility] Conjugate 13-Valent 00:00:00 [facility] Pneumococcal 2017-05-07 Completed [facility] Conjugate 13-Valent 00:00:00 [facility] Pneumococcal 2017-05-07 Completed [facility] Conjugate 13-Valent 00:00:00 [facility] Prevnar 13 2017-03-01 Completed [facility] Intramuscular 14:06:00 Suspension Pneumococcal 2017-03-01 Completed [facility] Conjugate 13-Valent 00:00:00 [facility] Pneumococcal 2017-03-01 Completed [facility] Conjugate 13-Valent 00:00:00 [facility] Pneumococcal 2017-03-01 Completed [facility] Conjugate 13-Valent 00:00:00 [facility] Pneumococcal 2017-03-01 Completed [facility] Conjugate 13-Valent 00:00:00 [facility] Vital Signs Vital Name Observation Time Observation Value Comments Source Systolic blood 2020-12-09 130 mm[Hg] [facility] pressure 18:50:00 [facility] Diastolic blood 2020-12-09 80 mm[Hg] University o f pressure 18:50:00 [facility] Heart rate 2020-12-09 84 /min University 18:50:00 [facility] Body temperature 2020-12-[address] [facility] 18:50:00 [facility] Respiratory rate 2020-12-09 20 /min [facility] 18:50:00 [facility] Oxygen saturation 2020-12-09 94 /min [facility] Arterial blood 18:50:00 [facility] by Pulse oximetry [place] Body height 2020-12-[address] [facility] 18:04:00 [facility] Body weight 2020-12-[address] [facility] 18:04:00 [facility] BMI 2020-12-09 27.55 kg/m2 [facility] 18:04:00 [facility] Weight 2020-06-24 208 [lb_av] [facility] 13:09:00 Body mass index 2020-06-24 29.01 kg/m2 [facility] (BMI) [Ratio] 13:09:00 Body temperature 2020-06-24 96.4 [degF] Method: [facility] 13:09:00 Temporal Heart Rate 2020-06-24 79 /min Location: R [facility] 13:09:00 Brachial Artery; Quality: Normal Respiratory rate 2020-06-24 22 /min Quality: Normal [facility] 13:09:00 O2 SAT 2020-06-24 92 % Source: RA [facility] 13:09:00 Systolic blood 2020-06-24 130 mm[Hg] Location: RUE; [facility] pressure 13:09:00 Position: Sitting Diastolic blood 2020-06-24 76 mm[Hg] Location: RUE; [facility] pressure 13:09:00 Position: Sitting Body height 2020-06-24 71 [in_us] [facility] 13:09:00 Heart Rate 2020-04-01 81 /min Location: L [facility] 13:34:00 Brachial Artery; O2 SAT 2020-04-01 93 % Source: RA [facility] 13:34:00 Systolic blood 2020-04-01 126 mm[Hg] Location: LUE; [facility] pressure 13:34:00 Position: Sitting Diastolic blood 2020-04-01 80 mm[Hg] Location: LUE; [facility] pressure 13:34:00 Position: Sitting Body height 2020-04-01 71 [in_us] [facility] 13:34:00 Weight 2020-04-01 219 [lb_av] [facility] 13:34:00 Body mass index 2020-04-01 30.54 kg/m2 [facility] (BMI) [Ratio] 13:34:00 Body temperature 2020-04-01 97.2 [degF] Method: [facility] 13:34:00 Temporal Systolic blood 2020-02-05 131 mm[Hg] Location: RUE; [facility] pressure 13:36:00 Position: Sitting Diastolic blood 2020-02-05 74 mm[Hg] Location: RUE; [facility] pressure 13:36:00 Position: Sitting Body [...] Systolic blood 2019-11-04 99 mm[Hg] Location: RUE; [facility] pressure 10:52:00 Position: Sitting Diastolic blood 2019-11-04 63 mm[Hg] Location: RUE; [facility] pressure 10:52:00 Position: Sitting Weight [...] greer 19:20:00 Temperature Oral 2019-03-09 97.8 F [facility] (F) 21:26:00 Heart Rate 2019-03-09 [facility] 21:26:00 Respitory Rate 2019-03-09 [facility] 21:26:00 Systolic (mm Hg) 2019-03-09 [facility] 21:26:00 Diastolic (mm Hg) 2019-03-09 [facility] 21:26:00 Temperature Oral 2019-03-09 97.8 [...] 14:00:00 Temperature Oral 2018-05-18 98.2 F [facility] (F) 07:12:00 Heart Rate 2018-05-18 [facility] 07:12:00 Respitory Rate 2018-05-18 [facility] 07:12:00 Systolic (mm Hg) 2018-05-18 [facility] Hector rmann 07:12:00 Diastolic (mm Hg) 2018-05-18 [facility] H ermann 07:12:00 Temperature Oral 2018-05-18 97.5 F [facility] Hector rmann (F) 02:00:00 Systolic (mm Hg) 2018-05-18 [facility] Hector rmann 02:00:00 Diastolic (mm Hg) 2018-05-18 [facility] Andrés ermann 02:00:00 Respitory Rate 2018-05-18 [facility] [...] BP Systolic 2018-05-08 144 mm[Hg] Location: RUE; [facility] 14:15:00 Position: Sitting BP Diastolic 2018-05-08 101 mm[Hg] Location: RUE; [facility] 14:15:00 Position: Sitting Height 2018-05-08 71 [...] BP Systolic 2018-05-07 140 mm[Hg] Location: RUE; [facility] 09:29:00 Position: Sitting BP Diastolic 2018-05-07 83 mm[Hg] Location: RUE; [facility] 09:29:00 Position: Sitting Height 2018-05-07 68 [in_us] [facility] 09:29:00 Weight 2018-05-07 212 [lb_av] [facility] 09:29:00 Body Mass Index 2018-05-07 32.23 kg/m2 [facility] Calculated 09:29:00 Temperature 2018-05-07 96.9 [degF] Method: Oral [facility] 09:29:00 Heart Rate 2018-05-07 69 /min [facility] 09:29:00 Systolic (mm Hg) 2018-05-06 [facility] 20:45:00 Diastolic (mm Hg) 2018-05-06 [facility] 20:45:00 Respitory Rate 2018-05-06 [facility] 20:45:00 Systolic (mm Hg) 2018-05-06 [facility] 20:30:00 Diastolic (mm Hg) 2018-05-06 [facility] 20:30:00 Respitory Rate 2018-05-06 [facility] 20:30:00 Systolic (mm Hg) 2018-05-06 [facility] 20:16:00 Diastolic (mm Hg) 2018-05-06 [facility] 20:16:00 Respitory Rate 2018-05-06 [facility] 20:16:00 Weight 2018-05-06 [facility] 16:17:00 BMI Calculated 2018-05-06 [facility] 16:17:00 Height 2018-05-06 172.72 cm [facility] 16:17:00 BP Systolic 2018-04-24 138 mm[Hg] Location: RUE; [facility] 11:40:00 Position: Sitting BP Diastolic 2018-04-24 89 mm[Hg] Location: RUE; [facility] 11:40:00 Position: Sitting Height 2018-04-24 68 [in_us] [facility] 11:40:00 Weight 2018-04-24 212.5 [lb_av] [facility] 11:40:00 Body Mass Index 2018-04-24 32.31 kg/m2 [facility] Calculated 11:40:00 Temperature 2018-04-24 98 [degF] Method: Oral [facility] 11:40:00 Heart Rate 2018-04-24 97 /min Quality: Normal [facility] 11:40:00 Respiration Rate 2018-04-24 18 /min Quality: Normal [facility] 11:40:00 O2 SAT 2018-04-24 97 % Source: RA [facility] 11:40:00 BP Systolic 2017-12-12 144 mm[Hg] Location: LUE; [facility] 13:43:00 Position: Sitting BP Diastolic 2017-12-12 96 mm[Hg] Location: LUE; [facility] 13:43:00 Position: Sitting Height 2017-12-12 68 [...] 13:43:00 O2 SAT 2017-12-12 96 % Source: [facility] 13:43:00 BP Systolic 2017-12-03 151 [...] 13:07:00 O2 SAT 2017-10-23 96 % Source: RA [facility] 13:07:00 BP Systolic 2017-10-15 136 mm[Hg] Location: LUE; [facility] 13:08:00 Position: Sitting BP Diastolic 2017-10-15 83 mm[Hg] Location: LUE; [facility] 13:08:00 Position: Sitting Weight 2017-10-15 210.5 [lb_av] [facility] 13:08:00 Body Mass Index 2017-10-15 30.2 kg/m2 [facility] Calculated 13:08:00 Temperature 2017-10-15 97.9 [degF] Method: [facility] 13:08:00 Tympanic Heart Rate 2017-10-15 109 /min Location: L [facility] 13:08:00 Brachial Artery; Respiration Rate 2017-10-15 12 /min Quality: Normal [facility] 13:08:00 O2 SAT 2017-10-15 96 % Source: RA [facility] 13:08:00 BP Systolic 2017-08-30 141 [...] [facility] 13:13:00 Systolic (mm Hg) 2017-05-19 [facility] He rmann 02:00:00 Diastolic (mm Hg) 2017-05-19 [facility] ermann 02:00:00 Respitory Rate 2017-05-19 [facility] Herm greer 02:00:00 Temperature Oral 2017-05-19 99.0 F [facility] rmann (F) 02:00:00 Heart Rate 2017-05-19 [facility] Oleksandr n 02:00:00 Heart Rate 2017-05-18 [facility] Oleksandr n 22:00:00 Temperature Oral 2017-05-18 98.3 F [facility] (F) 22:00:00 Respitory Rate 2017-05-18 [facility] 22:00:00 Systolic (mm Hg) 2017-05-18 [facility] 22:00:00 Diastolic (mm Hg) 2017-05-18 [facility] 22:00:00 Heart Rate 2017-05-18 [facility] 18:00:00 Respitory Rate 2017-05-18 [facility] 18:00:00 Systolic (mm Hg) 2017-05-18 [facility] [...] greer 12:36:00 Temperature Oral 2017-05-07 98.1 F [facility] Hector rmann (F) 14:00:00 Respitory Rate 2017-05-07 [facility] [...] 23:56:00 BP Systolic 2017-03-01 144 mm[Hg] Location: E; [facility] 13:09:00 Position: Sitting BP Diastolic 2017-03-01 90 mm[Hg] Location: E; [facility] 13:09:00 Position: Sitting Height 2017-03-01 70 [...] O2 SAT 2017-03-01 97 % Source: RA [facility] 13:09:00 Weight 2017-02-23 [facility] [...] He rmann 09:42:00 Diastolic (mm Hg) 2016-03-17 [facility] H ermann 09:42:00 Weight 2016-03-14 [facility] [...] Clinician Source Performed PSA, ULTRASENSITIVE 2021-03-16 19:20:00 [facility] ESTRADIOL LEVEL 2021-03[facility]16 [facility] AND 2021-03-16 19:20:00 [facility] DIFFERENTIAL TESTOSTERONE LEVEL, FREE 2021-03-16 19:20:00 Addison Vance [facility] AND TOTAL, MALE PSA, TOTAL AND FREE 2021-03-16 18:54:00 [facility] [id number] CONSENT 2020-12-09 05:01:00 Doctor Unassigned, [facility] TESTOSTERONE LEVEL, FREE 2020-09-09 19:21:00 Addison Vance [facility] AND TOTAL, MALE CBC WITH PLATELET AND 2020-09-09 19:21:00 [facility] DIFFERENTIAL ESTRADIOL LEVEL 2020-09-09 19:21:00 Addison Vance [facility] spital PSA, ULTRASENSITIVE 2020-09-09 19:21:00 [facility] [id number] 2020-06-16 00:00:00 [facility] CBC WITH PLATELET AND 2020-06-09 16:35:00 Addison Vance [facility] DIFFERENTIAL ESTRADIOL LEVEL 2020-06-09 16:35:00 Addison Vance Ho spital TESTOSTERONE LEVEL, FREE 2020-06-09 16:35:00 Addison Vance [facility] AND TOTAL, MALE PSA, ULTRASENSITIVE 2020-06-09 16:35:00 [facility] VITAMIN B12 2020-04-01 00:00:00 [facility] [...] Shoulder series 2020-03-30 00:00:00 [facility] [id number] Physical Therapy 2019-11-27 00:00:00 [facility] Complete PFTs w/DLCO and 2019-11-04 00:00:00 [facility] Lung Volumes 6 Minute Walk Test 2019-11-04 00:00:00 [facility] MRI Spine cervical wo 2019-10-21 00:00:00 [facility] contrast [id number] MRI Spine thoracic wo 2019-10-21 00:00:00 [facility] contrast [id number] MRI Spine lumbar wo 2019-10-21 00:00:00 [facility] contrast 69490 [U] XRAY SPINE 2018-12-26 00:00:00 [facility] LUMBOSACRAL 2 OR 3 VWS [id number] Physical Therapy 2018-12-26 00:00:00 [facility] Physical Therapy 2018-09-25 00:00:00 [facility] [U] XRAY SHOULDER MIN 2 2018-08-15 00:00:00 [facility] VWS LEFT [id number] [U] XRAY SHOULDER MIN 2 2018-07-04 00:00:00 [facility] VWS RIGHT [id number] Post Op Promise 29 Survey 2018-05-29 00:00:00 [...] COMPREHENSIVE [QLH] HEPATITIS PANEL 2018-05-07 00:00:00 [facility] Arthrocentesis, 2018-04-22 20:14:50 [facility] aspiration and/or injection, major joint or bursa (eg, shoulder, hip, knee, subacromial bursa); without ultrasound guidance [U] XRAY SHOULDER MIN 2 2018-04-15 00:00:00 [facility] VWS LEFT [id number] MR Shoulder w/wo contrast 2018-04-15 00:00:00 [facility] [id number] Physical Therapy 2018-04-02 00:00:00 [facility] [U] XRAY SPINE CERVICAL 2 2018-04-02 00:00:00 [facility] OR 3 VWS [id number] [U] XRAY SPINE 2018-04-02 00:00:00 [facility] LUMBOSACRAL 2 OR 3 VWS 06664 MRI Spine cervical wo 2018-04-02 00:00:00 [facility] contrast 52658 MRI Spine thoracic wo 2018-04-02 00:00:00 [facility] contrast 27014 MRI Spine lumbar wo 2018-04-02 00:00:00 [facility] contrast 46541 [U] XRAY SPINE 2018-04-01 00:00:00 [facility] LUMBOSACRAL 2 OR 3 VWS [id number] [H] Allergens, Inhalants, 2017-12-03 00:00:00 [facility] Comprehensive Profile Physical Therapy 2017-07-12 00:00:00 [facility] [U] XRAY SPINE 2017-07-11 00:00:00 [facility] LUMBOSACRAL 2 OR 3 VWS [id number] [H] Allergens, Inhalants, 2017-05-31 00:00:00 [facility] Comprehensive Profile CT Chest wo contrast 2017-05-31 00:00:00 [facility] 57400 [U] XRAY SHOULDER MIN 2 2017-04-30 00:00:00 [facility] VWS RIGHT [id number] [U] XRAY SHOULDER MIN 2 2017-04-02 00:00:00 [facility] VWS RIGHT [id number] Operation 2016-02-22 06:00:00 [facility] History of Rotator Cuff [facility] [...] icians History of Colonoscopy [facility] Colon [facility] operation<sup>1</sup> Resection of colon [facility] Herm greer Replacement [facility] Shoulder repair [facility] Plan of Care Planned Activity Planned Date Details Comments Source Future Scheduled 2022-01-27 HEPATITIS B VACCINES Met [facility] Test 07:19:04 (1 of 3 - 3-dose series) [code = HEPATITIS B VACCINES (1 of 3 - 3-dose series)] Future Scheduled 2022-01-27 SHINGLES VACCINES (1 Met [facility] Test 07:19:04 of 2) [code = SHINGLES VACCINES (1 of 2)] Future Scheduled 2022-01-27 65+ PNEUMOCOCCAL [facility] Test 07:19:04 VACCINE (2 - PPSV23 if available, else PCV20) [code = 65+ PNEUMOCOCCAL VACCINE (2 - PPSV23 if available, else PCV20)] Future Scheduled 2022-01-27 COVID-19 VACCINE (3 - Me [facility] Test 07:19:04 Pfizer risk series) [code = COVID-19 VACCINE (3 - Pfizer risk series)] Future Scheduled 2022-01-27 INFLUENZA VACCINE Method [facility] Test 07:19:04 [code = INFLUENZA VACCINE] Future Scheduled 2021-11-23 HEPATITIS B VACCINES Met [facility] Test 19:51:02 (1 of 3 - 3-dose series) [code = HEPATITIS B VACCINES (1 of 3 - 3-dose series)] Future Scheduled 2021-11-23 SHINGLES VACCINES (1 Met [facility] Test 19:51:02 of 2) [code = SHINGLES VACCINES (1 of 2)] Future Scheduled 2021-11-23 65+ PNEUMOCOCCAL [facility] Test 19:51:02 VACCINE (2 - PPSV23 or PCV20) [code = 65+ PNEUMOCOCCAL VACCINE (2 - PPSV23 or PCV20)] Future Scheduled 2021-11-23 COVID-19 VACCINE (3 - [facility] Test 19:51:02 Pfizer risk series) [code = COVID-19 VACCINE (3 - Pfizer risk series)] Future Scheduled 2021-11-23 INFLUENZA VACCINE Method [facility] Test 19:51:02 [code = INFLUENZA VACCINE] Future Scheduled 2021-11-23 HEPATITIS B VACCINES Met [facility] Test 19:51:02 (1 of 3 - 3-dose series) [code = HEPATITIS B VACCINES (1 of 3 - 3-dose series)] Future Scheduled 2021-11-23 SHINGLES VACCINES (1 Met [facility] Test 19:51:02 of 2) [code = SHINGLES VACCINES (1 of 2)] Future Scheduled 2021-11-23 65+ PNEUMOCOCCAL [facility] Test 19:51:02 VACCINE (2 - PPSV23 or PCV20) [code = 65+ PNEUMOCOCCAL VACCINE (2 - PPSV23 or PCV20)] Future Scheduled 2021-11-23 COVID-19 VACCINE (3 - Me [facility] Test 19:51:02 Pfizer risk series) [code = COVID-19 VACCINE (3 - Pfizer risk series)] Future Scheduled 2021-11-23 INFLUENZA VACCINE [facility] Test 19:51:02 [code = INFLUENZA VACCINE] Future Scheduled 2021-04-08 SHINGLES VACCINES [facility] Test 08:06:56 (#1) [code = SHINGLES VACCINES (#1)] Future Scheduled 2021-04-08 Scre[facility] for [facility] Test 08:06:56 malignant neoplasm of lung (procedure) [code = 085201107] Future Scheduled 2021-04-08 65+ [facility]OCO[facility] [facility] Test 08:06:56 VACCINE (1 of 2 - PPSV23) [code = 65+ PNEUMOCOCCAL VACCINE (1 of 2 - PPSV23)] Future Scheduled 2021-04-08 INFLUENZA VACCINE [facility] Test 08:06:56 [code = INFLUENZA VACCINE] Future Scheduled 2021-04-08 COVID-19 VACCINE (3 - [facility] Test 08:06:56 Booster for Pfizer series) [code = COVID-19 VACCINE (3 - Booster for Pfizer series)] Diagnostic Test 2020-03-30 XRAY Shoulder series [facility] Pending 00:00:00 [id number] [code = 50359] Diagnostic Test 2019-11-04 Complete PFTs w/DLCO [facility] Pending 00:00:00 and Lung Volumes [code = Complete PFTs w/DLCO and Lung Volumes] Diagnostic Test 2019-11-04 6 Minute Walk Test [facility] Pending 00:00:00 [code = 6 Minute Walk Test] Encounters Start End Encounter Admission Attending Care Care Encounter Source Date/Time Date/Time Type Type Clinicians Facility Department ID 2021-12-20 Outpatient [facility] [id number] [place] 13:37:46 [id number] [facility] 2021-09-13 Outpatient [facility] [id number] [place] 14:47:28 [id number] Health 2021-08-19 Outpatient [facility] [id number] [place] 11:30:03 [id number] [facility] 2021-04-07 Outpatient [facility] [id number] [place] 10:20:23 [facility] 2020-07-31 Outpatient HOMER [facility] [id number] [place] 04:01:17 JANY [facility] 2019-03-07 Inpatient [facility] [id number] 15:28:00 [facility] 2021-04-07 2021-04-07 Office PARUL Gonsales [facility] [id number] [place] 10:00:00 11:17:57 Visit Agnieszka JORJE AND 350.1.13.58 Health SPINE 9.2.7.2.686 MEDICAL [id number] [address] 2021-03-29 2021-03-29 Orders [place], 1.2.840.1 [id number] Methodi 00:00:00 00:00:00 Only Addison [address]101.1.[address] 3.430.2.7 Hospit a .3.673003 l .8 2021-03-29 2021-03-29 Orders Martha, 1.2.840.1 [id number] Methodi 00:00:00 00:00:00 Only Addison 14092.1.[address] 3.430.2.7 Hospit a .3.590378 l .8 2021-03-16 2021-03-16 Office Martha, 1.2.840.1 [id number] Methodi 13:00:00 13:05:43 Visit Addison 37913.1.[address] 3.430.2.7 Hospit a .3.587311 l .8 2021-03-16 2021-03-16 Office Martha, 1.2.840.1 [id number] Methodi 13:00:00 13:05:43 Visit Addison 20393.1.[address] 3.430.2.7 Hospit a .3.194590 l .8 2021-03-16 2021-03-16 Outpatient MARTHA [facility] [id number] [address] [place] [address] 00:00:00 00:00:[address] 2021-03-16 2021-03-16 Travel 1.2.840.1 1.2.297.656 [id number] Methodi 00:00:00 00:00:[address] 3.430.2.7 0.2.7.3.698 Ho spita .3.415337 084.8 l .8 2021-03-16 2021-03-16 Travel 1.2.840.1 1.2.222.301 [id number] Methodi 00:00:00 00:00:[address] 3.430.2.7 0.2.7.3.698 Ho spita .3.938139 084.8 l .8 2021-03-15 2021-03-15 Refill [place], 1.2.840.1 [id number] 1471 Methodi 00:00:00 00:00:[address] 3.430.2.7 Hospit a .3.380767 l .8 2021-03-15 2021-03-15 Refill Martha, 1.2.840.1 [id number] Methodi 00:00:00 00:00:[address] 3.430.2.7 Hospit a .3.240914 l .8 2021-01-26 2021-01-26 Outpatient LUMA Alfaro CPUL [id number] [facility] 13:21:00 13:21:00 Sarmad Rodrigues [facility] 2020-12-09 2020-12-09 Outpatient Darion WHITFIELD [facility] [id number] Univers 13:00:00 13:00:00 PAM son [facility] 2020-12-09 2020-12-09 Nurse Therapy, Adc Covid Infusion [facility] [id number] Univers 11:41:34 12:41:34 Visit Pam Whit[place] 350.1.13.10 huy [facility] 4.2.7.2.686 [place] [facility] [id number] [place] [id number] [place] 2020-12-09 2020-12-09 Orders Doctor MICHELLE 1.2.840.114 [id number] Univers 00:00:00 00:00:00 Only Unassigned, MELO 350.1.13.10 [facility] 4.2.7.2.686 Ethan as [id number] [place] [address] Branch 2020-12-06 2020-12-06 Telephone Martha, 1.2.840.1 [id number] Methodi 00:00:00 00:00:[address] 3.430.2.7 Hospit a .3.342921 l .8 2020-11-22 2020-11-22 Refill Martha, 1.2.840.1 [id number] Methodi 00:00:00 00:00:[address] 3.430.2.7 Hospit a .3.213158 l .8 2020-09-24 2020-09-24 Orders [place], 1.2.840.1 [id number] Methodi 00:00:00 00:00:00 Only Rasheeda 61349.1.[address] 3.430.2.7 Hospit a .3.415652 l .8 2020-09-23 2020-09-23 Telephone Martha, 1.2.840.1 [id number] Methodi 00:00:00 00:00:[address] 3.430.2.7 Hospit a .3.616778 l .8 2020-09-09 2020-09-09 Office Martha, 1.2.840.1 [id number] Methodi 10:42:24 12:31:46 Visit Addison 49645.1.[address] 3.430.2.7 Hospit a .3.943438 l .8 2020-09-09 2020-09-09 Travel 1.2.840.1 1.2.819.622 [id number] Methodi 00:00:00 00:00:[address] 3.430.2.7 0.2.7.3.698 Ho spita .3.156305 084.8 l .8 2020-07-28 2020-08-20 Inpatient EL NELLY Guzman OUTD [id number] [facility] 11:00:00 22:28:43 Viraj 96 [facility] 2020-07-08 2020-07-08 Orders Sudheer, 1.2.840.1 [id number] Methodi 00:00:00 00:00:00 Only Cinda 34045.1.[address] 3.430.2.7 Hospit a .3.026898 l .8 2020-07-08 2020-07-08 Telephone [place], 1.2.840.1 [id number] [id number] Methodi 00:00:00 00:00:[address] 3.430.2.7 Hospit a .3.041115 l .8 2020-07-06 2020-07-06 Refill [place], 1.2.840.1 [id number] Methodi 00:00:00 00:00:[address] 3.430.2.7 Hospit a .3.975810 l .8 2020-06-24 2020-06-24 Leslie CORONEL [facility] 704 [id number] [place] 13:00:00 13:00:00 t; JANY CORONEL lty - Jason sanchez M.D. 2020-06-22 2020-06-22 Orders Sudheer, 1.2.840.1 [id number] Methodi 00:00:00 00:00:00 Only Cinda [address]6701.1.[address] 3.430.2.7 Hospit a .3.741809 l .8 2020-06-19 2020-06-19 Inpatient NELLY Guzman HCACL [id number] [facility] 04:33:13 04:33:13 Viraj 64 [facility] 2020-06-09 2020-06-14 Office [place], 1.2.840.1 [id number] Methodi 11:06:24 12:06:25 Visit Addison [address]3987.1.[address] 3.430.2.7 Hospit a .3.840502 l .8 2020-06-09 2020-06-09 Travel 1.2.840.1 1.2.225.558 7204 [id number] Methodi 00:00:00 00:00:[address] 3.430.2.7 0.2.7.3.698 Ho spita .3.101438 084.8 l .8 2020-05-04 2020-06-08 Clinical 1.2.840.1 [id number] Methodi 12:40:25 05:44:[address] 3.430.2.7 Hospit a .3.350567 l .8 2020-05-04 2020-05-04 PARUL Caro [facility] [id number] [place] 15:15:00 15:15:00 t; Devin PIZANO daniel Ortiz M.D. 2020-05-04 2020-05-04 Travel 1.2.840.1 1.2.601.773 7797 [id number] Methodi 00:00:00 00:00:[address] 3.430.2.7 0.2.7.3.698 Ho spita .3.845964 084.8 l .8 2020-04-13 2020-04-13 Outpatient [facility] [id number] [place] 00:00:00 00:00:[address] 2020-04-01 2020-04-01 AppointPARUL Dewey Neurology - 705 [id number] [place] 13:30:00 13:30:00 t; FRED BROWN [place] [facility] KRISTIN, M.D. Medical ans M.D. [place] 2020-03-10 2020-03-10 [facility] [id number] [place] 00:00:00 00:00:00 ADDISON [address] 2020-02-05 2020-02-05 PARUL Bourne Multispecia [id number] [place] 13:20:00 13:20:00 t; JANY CORONEL lty - Physici RUCKSHANDA M.D. Bellaire ans, M.D. 2020-01-13 2020-01-13 Outpatient FARACH, [facility] [id number] [place] 00:00:00 00:00:00 SEAMUS 156 Method i 2020-01-06 2020-01-06 Outpatient FARACH, [facility] [id number] [place] 00:00:00 00:00:00 SEAMUS [address] 2019-11-27 2019-11-27 Appointmen MARIA TERESA [facility] [id number] [place] 10:30:00 10:30:00 t; AGNIESZKA GONSALES Physici SHAH-NAWAZ M.D. ans, M.D. 2019-11-27 2019-11-27 Appointmen PARUL GONSALES Orthopedics 688 [id number] [place] 10:00:00 10:00:00 t; [facility] BOONE M.[facility] Devin sanchez [place] 2019-11-19 2019-11-20 Outpatient [facility] [id number] [facility] 13:45:00 04:59:[address] 2019-11-19 2019-11-19 [facility] 7519 [facility] 08:45:00 08:45:00 JANY 2019-11-18 2019-11-19 [facility] [id number] [place] 00:00:00 00:00:00 SEAMUS 190 Method i 2019-11-18 2019-11-18 Outpatient FARACH, [facility] [id number] [place] 00:00:00 00:00:00 SEAMUS 158 Method i 2019-11-18 2019-11-18 [facility] [id number] [place] 00:00:00 00:00:00 SEAMUS [address] 2019-11-04 2019-11-04 Appointmen PARUL CORONEL Mult[facility] 685 [id number] [place] 09:40:00 09:40:00 t; MAJID, RUCKSHANDA, lty - Jason sanchez M.D. 2019-11-03 2019-11-04 Outpatient [facility] [id number] [facility] 17:34:00 04:59:00 r Indra 18 l [facility] 2019-11-03 2019-11-03 Outpatient KEVIN GONSALES MHSE [id number] 12:34:00 23:59:00 AGNIESZKA Connor [facility] 2019-10-30 2019-10-30 Outpatient COH COH PDPFEIM ZOL COH 00:00:00 00:00:00 [id number] 2019-10-23 2019-10-23 Outpatient MARTHA, [facility] [id number] [place] 00:00:00 00:00:00 ADDISON [address] 2019-10-21 2019-10-21 Leslie GONSALES [facility] Orthopedics [id number] [id number] [place] 10:15:00 10:15:00 t; AGNIESZKA GONSALES [facility] Jason sanchez M.D. [place] 2019-09-19 2019-09-19 Outpatient [facility] [id number] [place] 00:00:00 00:00:[address] 2019-09-18 2019-09-18 Outpatient [facility] [id number] [place] 00:00:00 00:00:[address] 2019-09-18 2019-09-18 Outpatient MINDY, [facility] [id number] [place] 00:00:00 00:00:00 SEAMUS [address] 2019-09-17 2019-09-17 Outpatient [facility] [id number] [place] 00:00:00 00:00:[address] 2019-09-16 2019-09-16 Outpatient [facility] [id number] [place] 00:00:00 00:00:[address] 2019-09-16 2019-09-16 Outpatient MINDY, [facility] [id number] [place] 00:00:00 00:00:00 SEAMUS [address] 2019-09-15 2019-09-15 Outpatient [facility] [id number] [place] 00:00:00 00:00:[address] 2019 2019 Outpatient [facility] [id number] [place] 00:00:00 00:00:[address] 2019-09-11 2019-09-11 Outpatient [facility] [id number] [place] 00:00:00 00:00:[address] 2019-09-11 2019-09-11 Outpatient CASSANDRAACH, [facility] [id number] [place] 00:00:00 00:00:00 SEAMUS [address] 2019-09-10 2019-09-10 Outpatient [facility] [id number] [place] 00:00:00 00:00:[address] 2019-09-09 2019-09-09 Outpatient [facility] [id number] [place] 00:00:00 00:00:[address] 2019-09-08 2019-09-08 Outpatient [facility] [id number] [place] 00:00:00 00:00:[address] 2019-09-05 2019-09-05 Outpatient [facility] [id number] [place] 00:00:00 00:00:[address] 2019-09-04 2019-09-04 Outpatient [facility] [id number] [place] 00:00:00 00:00:[address] 2019-09-04 2019-09-04 Outpatient FARACH, [facility] [id number] [place] 00:00:00 00:00:00 SEAMUS [address] 2019-09-04 2019-09-04 Outpatient FARACH, [facility] [id number] [place] 00:00:00 00:00:00 SEAMUS [address] 2019-09-03 2019-09-03 Outpatient [facility] [id number] [place] 00:00:00 00:00:[address] 2019-09-03 2019-09-03 Outpatient FARACH, [facility] [id number] [place] 00:00:00 00:00:00 SEAMUS [address] 2019-09-02 2019-09-02 Outpatient [facility] [id number] [place] 00:00:00 00:00:[address] 2019-09-01 2019-09-01 Outpatient [facility] [id number] [place] 00:00:00 00:00:[address] 2019-08-28 2019-08-28 Outpatient [facility] [id number] [place] 00:00:00 00:00:[address] 2019-08-28 2019-08-28 Outpatient FARACH, [facility] [id number] [place] 00:00:00 00:00:00 SEAMUS [address] 2019-08-27 2019-08-27 Outpatient [facility] [id number] [place] 00:00:00 00:00:[address] 2019-08-26 2019-08-26 Outpatient [facility] [id number] [place] 00:00:00 00:00:[address] 2019-08-25 2019-08-26 Outpatient FARACH, [facility] [id number] [place] 00:00:00 00:00:00 SEAMUS [address] 2019-08-25 2019-08-25 Outpatient [facility] [id number] [place] 00:00:00 00:00:[address] 2019-08-22 2019-08-22 Outpatient [facility] [id number] [place] 00:00:00 00:00:[address] 2019-08-21 2019-08-21 Outpatient [facility] [id number] [place] 00:00:00 00:00:[address] 2019-08-21 2019-08-21 Outpatient FARACH, [facility] [id number] [place] 00:00:00 00:00:00 SEAMUS [address] 2019-08-20 2019-08-20 Outpatient FARACH, [facility] [id number] [place] 00:00:00 00:00:00 SEAMUS [address] 2019-08-12 2019-08-12 Outpatient FARACH, [facility] [id number] [place] 00:00:00 00:00:00 SEAMUS [address] 2019-08-01 2019-08-01 Outpatient FARACH, [facility] [id number] [place] 00:00:00 00:00:00 SEAMUS [address] 2019-07-30 2019-07-30 Outpatient FARACH, [facility] [id number] [place] 00:00:00 00:00:00 SEAMUS [address] 2019-07-24 2019-07-24 Outpatient FARACH, [facility] [id number] [place] 00:00:00 00:00:00 SEAMUS 663 Method i 2019-06-18 2019-06-18 Outpatient MINDY, [facility] [id number] [place] 00:00:00 00:00:00 SEAMUS 438 Method i 2019-05-06 2019-05-06 Outpatient MINDY, [facility] [id number] [place] 00:00:00 00:00:00 SEAMUS 769 Method i 2019-04-29 2019-04-29 Outpatient MINDY, [facility] [id number] [place] 00:00:00 00:00:00 SEAMUS 722 Method i 2019-04-29 2019-04-29 Outpatient MINDY, [facility] [id number] [place] 00:00:00 00:00:00 SEAMUS 652 Method i 2019-04-21 2019-04-21 Outpatient SATKUNASIVA [facility] [id number] [place] 00:00:00 00:00:00 DEYVI Rogel 105 Method i 2019-04-08 2019-04-09 [facility] [id number] Memoria 18:26:00 05:59:00 darion Burrell 17 l [facility] 2019-04-08 2019-04-08 Outpatient MHSE PUL [id number] 12:26:00 12:26:00 [facility] 2019-03-25 2019-03-25 Outpatient MARTHA [facility] [id number] [place] 00:00:00 00:00:00 ADDISON 981 Method i 2019-03-25 2019-03-25 Outpatient MARTHA [facility] [id number] [place] 00:00:00 00:00:00 ADDISON 980 Method i 2019-03-25 2019-03-25 Outpatient MARTHA [facility] [id number] [place] 00:00:00 00:00:00 ADDISON 904 Method i 2019-03-07 2019-03-09 Inpatient nullFlavo [facility] [id number] Memoria 21:28:00 23:55:00 darion Burrell 47 l [facility] 2018-12-26 2018-12-26 Leslie GONSALES [facility] Orthopedics [id number] [place] 13:15:00 13:15:00 t; AGNIESZKA GONSALES, at [facility] AGNIESZKA sanchez M.D. [facility] 2018-12-19 2018-12-19 Outpatient MARTHA, [facility] [id number] [place] 00:00:00 00:00:00 ADDISON 940 Method i 2018-08-15 2018-08-15 PARUL Caro Orthopedics [id number] [place] 10:30:00 10:30:00 t; Devin PIZANO at [facility] Jason LITTLE, [facility] Pablito Cowart M.D. [facility] A 2018-07-04 2018-07-04 Leslie LITTLE [facility] [id number] [place] 10:30:00 10:30:00 t; Devin PIZANO [facility] Jony Ortiz ans JAMES, [address] M.D. 2018-05-30 2018-05-30 Leslie LITTLE [facility] [id number] [place] 10:45:00 10:45:00 t; Devin PIZANO [facility] Jony Ortiz ans JAMES, [address] M.D. 2018-05-17 2018-05-18 [facility] [id number] Memoria 13:18:00 15:50:00 r Indra 16 l [facility] 2018-05-17 2018-05-17 Leslie LITTLE [facility] [id number] [place] 08:00:00 08:00:00 t; Devin PIZANO Ph daniel Ortiz M.D. 2018-05-08 2018-05-08 Leslie YAO [facility] Neurology [id number] [place] 13:45:00 13:45:00 t; NABIL YAO, Ph Devin Colon M.D. 2018-05-07 2018-05-07 PARUL Roman Neurology [id number] [place] 10:30:00 10:30:00 t; Devin JENNINGS Phdaniel Hamilton M.D. 2018-05-06 2018-05-06 Bedded nullFlavo [facility] [id number] Memoria 15:14:00 21:05:00 Outpatient r Indra 14 l [facility] 2018-05-02 2018-05-03 Outpatient nullFlavo [facility] [id number] Memoria 17:37:00 05:59:00 r Indra 15 l [facility] 2018-04-30 2018-04-30 [facility] [id number] [place] 10:00:00 10:00:00 t; Devin PIZANO [facility] Jony Ortiz ans JAMES, [address] M.D. 2018-04-24 2018-04-25 Outpatient nullFlavo [facility] [id number] Mem[place] 16:09:00 05:59:00 r Indra 13 l [facility] 2018-04-24 2018-04-24 AppointPARUL [place] [id number] [place] 11:00:00 11:00:00 t; NABIL YAO, [facility] and Ph parisa FERRER M.D. Vascular daniel Beltran Surgery at [facility] 2018-04-22 2018-04-23 Outpt Diag nullFlavo [facility] [address] [id number] [place] 17:07:00 05:59:00 Services r Outpatient 05 l Imaging Indra Wendell 2018-04-18 2018-04-19 Outpt Diag nullFlavo [facility] [address] [id number] Mem[place] 20:50:00 05:59:00 Services r Outpatient 04 l Imaging Wendell [facility] 2018-04-16 2018-04-17 Outpt Diag nullFlavo [facility] [address] [id number] [place] 17:00:00 05:59:00 Services r Outpatient 03 l Imaging Indra Morgan 2018-04-15 2018-04-15 [facility] [id number] [place] 11:30:00 11:30:00 t; Devin PIZANO [facility] Jony Ortiz ans JAMES, [address] M.D. 2018-04-02 2018-04-02 Leslie GONSALES [facility] [id number] [place] 14:00:00 14:00:00 t; AGNIESZKA GONSALES, Jorje and Physicalfred BOONE M.D. Spine S Devin sanchez [facility] 2017-12-12 2017-12-12 Appointmen SOLOMON-POOJA [facility] [place] [id number] [place] 14:00:00 14:00:00 t; Jeannette GUERRIERSpeci alonzo Tejeda M.D. [facility], PREM, [address] M.DMable 2017-12-03 2017-12-03 Appointmen HARRY, [facility] [place] [id number] [place] 13:00:00 13:00:00 t; MEGGAN HARRY M.D. Multi-Speci Jason BRODERICK M.D. [facility], [address] 2017-11-05 2017-11-05 Appointmen HARRY, [facility] [place] [id number] [place] 13:30:00 13:30:00 t; MEGGAN HARRY M.D. Multi-Speci Devin Branch, [address] 2017-10-23 2017-10-23 Appointmen HARRY, [facility] [id number] 3 [place] 13:00:00 13:00:00 t; MEGGAN HARRY M.D. [facility]Speci [facility] [address] 2017-10-15 2017-10-15 Appointmen HARRY, [facility] [place] 438 [id number] [place] 13:00:00 13:00:00 t; MEGGAN HARRY M.D. Multi-Speci Devin Branch, [address] 2017-08-30 2017-08-30 Appointmen HARRY, [facility] [id number] [place] 13:00:00 13:00:00 t; MEGGAN HARRY M.D. Multi-Speci Devin Branch [facility], [address] 2017-07-12 2017-07-12 Appointmen MARIA TERESA, [facility] [id number] [place] 14:30:00 14:30:00 t; AGNIESZKA GONSALES, Orthopedics Physici AGNIESZKA sanchez M.D. 2017-06-28 2017-06-28 Appointmen ANABEL, [facility] [id number] [place] 11:30:00 11:30:00 t; Devin PIZANO [facility] Jony Ortiz ans JAMES, [address] M.D. 2017-06-07 2017-06-07 Leslie LITTLE [facility] [id number] [place] 10:30:00 10:30:00 t; Devin PIZANO [facility] Jony Ortiz ans JAMES, [address] M.D. 2017-06-01 2017-06-02 Outpt Diag nullFlavo [facility] [address] [id number] Memoria 19:49:00 05:59:00 Services r Outpatient 02 l [facility] 2017-05-31 2017-05-31 [facility] [id number] [place] 13:00:00 13:00:00 t; MEGGAN HARRY M.D. Multi-Speci Physici Devin BRODERICK [facility], [address] 2017-05-24 2017-05-24 Leslie LITTLE [facility] [id number] [place] 10:15:00 10:15:00 t; Devin PIZANO [facility] Jony Ortiz ans JAMES, [address] M.D. 2017-05-15 2017-05-19 Inpatient nullFlavo [facility] [id number] Memoria 14:43:00 03:07:00 r Wendell 11 l [facility] 2017-05-15 2017-05-15 Leslie LITTLE, [facility] [id number] [place] 08:00:00 08:00:00 t; Devin PIZANO Ph daniel Ortiz M.D. 2017-05-14 2017-05-14 Leslie LITTLE [facility] [id number] [place] 11:00:00 11:00:00 t; Devin PIZANO Ph daniel Ortiz M.D. 2017-05-01 2017-05-07 Inpatient nullFlavo [facility] [id number] Memoria 15:53:00 20:15:00 r Indra 10 l [facility] 2017-05-01 2017-05-01 Leslie LITTLE, [facility] [id number] [place] 08:30:00 08:30:00 t; Devin PIZANO Ph daneil Ortiz M.D. 2017-04-30 2017-04-30 Leslie LITTLE [facility] [id number] [place] 10:30:00 10:30:00 t; Devin PIZANO [facility] Jony Ortiz ans JAMES, [address] M.D. 2017-04-13 2017-04-13 Day nullFlavo [facility] [id number] Memoria 17:24:00 23:20:00 Surgery r Wendell 19 l [facility] 2017-04-13 2017-04-13 Emergency nullFlavo [facility] [id number] Memoria 12:25:00 17:00:00 r Indra 09 l [facility] 2017-04-13 2017-04-13 Emergency nullFlavo [facility] [id number] Memoria 09:10:00 11:16:00 r Wendell 08 [facility] 2017-04-02 2017-04-02 Appointmen ANABEL [facility] [id number] [place] 11:00:00 11:00:00 t; Devin PIZANO [facility] Jony Ortiz ans JAMES, [address] M.D. 2017-03-18 2017-03-19 Emergency nullFlavo [facility] [id number] Memoria 23:55:00 04:11:00 r Wendell 07 [facility] 2017-03-05 2017-03-05 Appointmen ANABEL [facility] [id number] [place] 10:30:00 10:30:00 t; Devin PIZANO [facility] Jony Ortiz ans JAMES, [address] M.D. 2017-03-01 2017-03-01 Appointmen PARUL HARRY [facility] [id number] [place] 13:00:00 13:00:00 t; MEGGAN HARRY M.D. Multi-Speci Jason BRODERICK M.D. [facility], [address] 2017-02-23 2017-02-24 Outpatient nullFlavo [facility] [id number] Memoria 15:00:00 05:59:00 r Wendell 05 [facility] 2017-02-22 2017-02-22 Appointmen PARUL GONSALES [facility] [id number] [place] 10:45:00 10:45:00 t; AGNIESZKA GONSALES Physici SHAH-NAWAZ M.D. ans, M.D. 2017-02-05 2017-02-05 AppointPARUL Grubbs [facility] [id number] [place] 08:30:00 08:30:00 t; Devin PIZANO Ph daniel Ortiz M.D. 2017-01-29 2017-01-29 Emergency [facility] [id number] Memoria 10:02:00 13:08:00 r Wendell 06 [facility] 2017-01-26 2017-01-27 Inpatient [facility] [id number] Memoria 11:19:00 18:51:00 r Wendell 04 [facility] 2017-01-26 2017[facility]01-[facility] ANABEL, [facility] [id number] [place] 10:00:00 10:00:00 t; Devin PIZANO Ph daniel Ortiz M.D. 2017-01-08 2017-01-08 AppointPARUL Grubbs [facility] [id number] [place] 10:30:00 10:30:00 t; Devin PIZANO [facility] Jony Ortiz ans JAMES, [address] M.D. 2017-01-04 2017-01-04 [facility] PARUL GONSALES [facility] [id number] [place] 13:45:00 13:45:00 t; AGNIESZKA GONSALES Physici SHAH-NAWAZ M.D. ans, M.D. 2016-12-26 2016-12-26 Appointmen PARUL HARRY UTP [id number] [place] 13:00:00 13:00:00 t; MEGGAN HARRY M.D. Physici SARA, M.D. ans 2016-08-24 2016-08-24 Appointmen PARUL GONSALES [facility] [id number] [place] 10:45:00 10:45:00 t; AGNIESZKA GONSALES Physici SHAH-NAWAZ M.D. ans, M.D. 2016-08-17 2016-08-17 Appointmen PARUL GONSALES UTP [id number] [place] 10:45:00 10:45:00 t; AGNIESZKA GONSALES Physici SHAH-NAWAZ M.D. ans, M.D. 2016-06-13 2016-06-13 Appointmen PARUL HYMAN UTP [id number] [place] 10:30:00 10:30:00 t; RADHA HYMAN M.D. P hysici EVAN, M.D. ans 2016-05-25 2016-05-25 AppointPARUL Garcia UTP [id number] [place] 10:15:00 10:15:00 t; AGNIESZKA GONSALES Physici SHAH-NAWAZ M.D. ans, M.D. 2016-04-13 2016-04-13 AppointPARUL Garcia UTP [id number] [place] 11:15:00 11:15:00 t; AGNIESZKA GONSALES Physici SHAH-NAWAZ M.D. ans, M.D. 2016-03-30 2016-03-30 AppointPARUL Garcia UTP [id number] [place] 10:15:00 10:15:00 t; AGNIESZKA GONSALES Physici SHAH-NAWAZ M.D. ans, M.D. 2016-03-17 2016-03-24 Inpatient [facility]Flavo [facility] [id number] Memoria 23:46:00 16:30:00 Rehab r [facility] 02 [facility] 2016-02-21 2016-03-17 Inpatient nullFlavo [facility] [id number] Memoria 11:09:00 22:45:00 r Wendell 00 [facility] 2016-02-21 2016-02-21 AppointPARUL Garcia UTP [id number] [place] 07:30:00 07:30:00 t; AGNIESZKA GONSALES Physici SHAH-NAWAZ M.D. ans, M.D. 2016-02-15 2016-02-16 Outpatient nullFlavo [facility] 4045 [id number] Memoria 14:08:00 05:59:00 r Wendell 01 [facility] 2016-02-15 2016-02-15 AppointPARUL Garcia UTP [id number] [place] 11:15:00 11:15:00 t; AGNIESZKA GONSALES Physici SHAH-NAWAZ M.D. ans, M.D. 2016-01-18 2016-01-18 AppointPARUL Garcia UTP [id number] [place] 13:15:00 13:15:00 t; AGNIESZKA GONSALES Physici SHAH-NAWAZ M.D. ans , M.D. 2016-01-10 2016-01-11 Outpt Diag nullFlavo [facility] [address] [id number] Memoria 14:23:00 04:59:00 Services r Outpatient [address] [facility] 2016-01-04 2016-01-04 [facility] PARUL GONSALES UTP [id number] [place] 10:45:00 10:45:00 t; AGNIESZKA GONSALES Physici SHAH-NAWAZ M.D. ans, M.D. 2015-12-30 2015-12-30 [facility] PARUL GONSALES UTP [id number] [place] 10:15:00 10:15:00 t; AGNIESZKA GONSALES Physici SHAH-NAWAZ M.D. ans, M.D. 2015-11-18 2015-11-18 [facility] PARUL GONSALES UTP [id number] [place] 09:15:00 09:15:00 t; AGNIESZKA GONSALES Physici SHAH-NAWAZ M.D. ans, M.D. 2015-11-10 2015-11-11 Outpt Diag nullFlavo [facility] [address] [id number] Memoria 18:54:00 04:59:00 Services r Outpatient [address] [facility] 2015-11-03 2015-11-03 [facility] PARUL GONSALES UTP [id number] UT 08:20:00 08:20:00 t; AGNIESZKA GONSALES Physici SHAH-NAWAZ M.D. ans, M.D. 2015-10-28 2015-10-28 [facility] PARUL GONSALES UTP [id number] UT 09:30:00 09:30:00 t; AGNIESZKA GONSALES Physici SHAH-NAWAZ M.D. ans, M.D. 2015-07-14 2015-07-14 [facility] PARUL MEDRANO UTP [id number] [place] 10:30:00 10:30:00 t; Devin DEMARCO Ph ysici daniel MEDRANO M.D. Results Test Description Test Time Test Comments Results Result Comments Source PSA, total and free 2021-03-17 15:10:00 Test Item Value Reference Range Interpretation Comme nts PSA (test code = 0.1 ng/mL 0.0-4.0 Jassi ECLIA methodology.According 2857-1) to the [place] [employer], Se rum PSA shoulddecrease and remain at undetectable le vels after radicalprostate ctomy. The AUA defines biochem ical recurrence as an initialPSA v alue 0.2 ng/mL or greater followe d by a subsequent confirmatoryPSA value 0.2 ng/mL or greater.Valu es obtained with different assay methods or kits cannot be usedi nterchangeably. Results cannot be interpreted as absolute eviden ceof the presence or absence of m alignant disease. PSA, free (test code 0.02 ng/mL N/A Jassi E CLIA methodology. = 22220-3) PSA, free percent 20.0 % The table below lists the (test code = probability of prostate cancer 33752-2) formen with non -suspicious LEA results and tot al PSA between4 and 10 ng/mL, b y patient age (Marty et al , ABHINAV 1998,279:1542). % Free PSA 50-64 yr 65-75 yr 0. 00-10.00% 56% 55% 10.01-15.00% 24 % 35% 15.01-20.00% 17% 23% 20.01-2 5.00% 10% 20% >25.00% 5% 9 %Please note: Marty et al did not make specific recomm endations regarding the u se of percent free PSA for any [facility] er population of men. GARRET (test code = Performed at: ) [facility] [id number] [place], [place] [id number] Director: Cristian Valdez MD, Phone: [phone] [facility] and [id number] 15:10:00 Test Item Value Reference Range Interpretation Comments PSA (test code 0.1 ng/mL 0.0-4.0 Jassi ECLIA = 2857-1) methodology.Acc ording to the [place] [employer], Se rum PSA shoulddecrease and [...] 0.02 ng/mL N/A Jassi ECLIA code = 90413-4) methodology. PSA, free 20.0 % The table below lists percent (test the probabilit y of code = 34038-6) prostate can cer formen with non-suspic ious LEA results and total PSA between4 an d 10 ng/mL, by patie nt age (Marty et al , ABHINAV 1998,279:1542). % Free PSA 50-64 yr 65 -75 yr 0.00-10.00% 56% 55% 10.01-15.00% 24 % 35% 15.01-20.00% 17 % 23% 20.01-25.00% 10 % 20% >25.00% 5% 9%Pl ease note: Marty et al did not make sp ecific recommendations regarding the u se of percent free PS A for any other popul ation of men. GARRET (test code Performed at: 01 = GARRET) - [facility] [address] [place], [place] [id number] Director: Cristian Valdez MD, Phone: [phone] [facility], total and [id number] 15:10:00 Test Item Value Reference Range Interpretation Comments PSA (test code 0.1 ng/mL 0-4 Jassi ECLIA = 2857-1) methodology.Acc ording to the [place] [employer], Se rum PSA shoulddecrease and [...] 0.02 ng/mL N/A Jassi ECLIA code = 87328-6) methodology. PSA, free 20.0 % The table below lists percent (test the probabilit y of code = 97879-0) prostate can cer formen with non-suspic ious LEA results and total PSA between4 an d 10 ng/mL, by patie nt age (Catalona et al , ABHINAV 1998,279:1542). % Free PSA 50-64 yr 65 -75 yr 0.00-10.00% 56% 55% 10.01-15.00% 24 % 35% 15.01-20.00% 17 % 23% 20.01-25.00% 10 % 20% >25.00% 5% 9%Pl ease note: Marty et al did not make sp ecific recommendations regarding the u se of percent free PS A for any other popul ation of men. GARRET (test code Performed at: 01 = GARRET) - [address] [id number] Director: Cristian Valdez MD, Phone: [phone] [facility]PS[facility], total and [id number] 15:10:00 Test Item Value Reference Range Interpretation Comments PSA (test code 0.1 ng/mL 0-4 Jassi ECLIA = 2857-1) methodology.Acc ording to the [place] [employer], Se rum PSA shoulddecrease and [...] 0.02 ng/mL N/A Jassi ECLIA code = 99510-2) methodology. PSA, free 20.0 % The table below lists percent (test the probabilit y of code = 50757-4) prostate can cer formen with non-suspic ious LEA results and total PSA between4 an d 10 ng/mL, by patie nt age (Catalona et al , ABHINAV 1998,279:1542). % Free PSA 50-64 yr 65 -75 yr 0.00-10.00% 56% 55% 10.01-15.00% 24 % 35% 15.01-20.00% 17 % 23% 20.01-25.00% 10 % 20% >25.00% 5% 9%Pl ease note: Marty et al did not make sp ecific recommendations regarding the u se of percent free PS A for any other popul ation of men. GARRET (test code Performed at: 01 = GARRET) - [facility] [address] [place], [place] [id number] Director: Cristian Valdez MD, Phone: [phone] [facility] HospitalCOVID 19 Asymptomatic IH [id number] 14:32:00 Test Item Value Reference Range Interpretation Comments COVID 19 Asymptomatic IH AG (test NEGATIVE NEGATIVE code = COVNONPUIAG) Novel Coronavirus 2018 [id number] 01:29:00 Test Item Value Reference Range Interpretation [...] for the identification of SARS-CoV-2 RNA usingthe Gonzalez M2000 Sy stem under the FDA Emergen cy UseAuthorizatio n. The testing is perf ormed by personneltraludwin d in the procedures for the Gonzalez M2000 molecular diagnostic SARS-CoV-2 assa y in vitro. BASIC METABOLIC [id number] 12:22:00 Test Item Value Reference Range Interpretation [...] = 9.7 mg/dL 8.0-10.5 N CA) PROTHROMBIN [id number] 12:12:00 Test Item Value Reference Range Interpretation [...] (to prevent recurrent infar ct). 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 [facility] CBC W/AUTO [id number] 10:09:00 Test Item Value Reference Range Interpretation [...] MANUAL DIFF REQUIRED (test code NO = IFF) - XR CHEST 1 [id number] 09:49:00 [facility] 1940 Sex: M FAX: Mark WellerP [phone] [place]: St: ADM FAX: Valentin Galindo MD [phone] FAX: Viraj Corrales MD [phone] Name: GENARO KAUR [facility] : 1940 Age/S: 79/M [address] [place] [address] Blvd Unit #: [id number] Loc: G.33[address] [place] [address] Phys: JaneeMark MARTÍNEZ Acct: [id number] Dis Date: Status: ADM IN PHONE #: [phone] Exam Date: 06/17/2020616 FAX #: [phone] Reason: POST WATCHMAN EXAMS: CPT CODE: [id number] XR CHEST 1 V 31792 EXAM: XR CHEST 1 VIEW DATE: 06/17/2020 5:00 AM : 1940; Age: 79 years y/o Male INDICATION: POST WATCHMAN COMPARISON: June 14, 2020 TECHNIQUE: AP chest. IMPRESSION: Lines, tubes and hardware: Left atrial appendage closure device is faintly noted. Heart, mediastinum and lungs: Heart and hilar vasculature is normal. Minimal right midlung and left basilar atelectatic changes. No pleural effusion. SL: [id number] at 0949 Reported and signed by: Sukhdeep Whitfield D.O. 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 The testing is perf ormed by personneltraine d in the procedures for the Gonzalez M2000 molecular diagnostic SARS-CoV-2 assa y in vitro. COMMENTS: NBASIC METABOLIC [id number] 11:35:00 Test Item Value Reference Range Interpretation [...] code = 9.9 mg/dL 8.0-10.5 N CA) [id number] 11:35:00 Test Item Value Reference Range Interpretation Comments PREALBUMIN (test code = PREALB) 30.7 mg/dL 16.0-40.0 N PROTHROMBIN [id number] 11:25:00 Test Item Value Reference Range Interpretation [...] recurrent infar ct). - XR CHEST 2 [id number] 11:25:00 [facility] : 1940 Sex: M FAX: Viraj Corrales MD [phone] [place]: St: PRE Name: GENARO KAUR [facility] [place] : 1940 Age/S: 79/M [address] [place] [address] Blvd Unit #: [id number] Loc: [place] [address] Phys: Viraj Guzman MD Acct: [id number] Dis Date: Status: PRE IDC PHONE #: [phone] Exam Date: 06/14/20201116 FAX#: [phone] Reason: PRE-OP WATCHMAN EXAMS: CPT CODE: [id number] XR CHEST 2 V 77195 CLINICAL HISTORY: PRE-OP WATCHMAN COMPARISON: NONE PA and lateral films of the chest demonstrate that heart size isnormal. Tortuosity of thoracic aorta is identified. Lung bocanegra demonstrate no evidence of pulmonaryconsolidation or pulmonary edema. Linear opacity in left lower lung field and right mid lung field is identified compatible with atelectatic plaque or scarring. Degenerative changes are present in dorsal spine. Postsurgical changes are present in both shoulders. IMPRESSION: 1. No evidence of pneumonia or congestive failure. Linear opacity in both lungs are thought to represent atelectatic plaque or scarring. 2. Degenerative changes in dorsal spine as well as postsurgical changes in both shoulders. at 1125 Reported and signed by: Garrett Lan M.D. CC: Viraj Guzman MD Technologist: Nelda Singh RT(R)(M) Trnscrd Date/Time/By: 06/14/2020 (2108) : By: Jovita Orig Print D/T: S: 06/14/2020 (5623) PAGE 1 Signed ReportCBC W/AUTO [id number] 11:16:00 Test Item Value Reference Range Interpretation [...] REQUIRED (test code = MDIFF) CBC W/AUTO [id number] 11:16:00 Test Item Value Reference Range Interpretation [...] DIFF REQUIRED (test code NO = MDIFF) [id number] 13:50:00 Test Item Value Reference Range Interpretation Comments Coronavirus (COVID-19) Not Detected (11/19/19 LASHANDA (test code = 8:50 AM) Coronavirus (COVID-19) LASHANDA) [facility] Spine lumbar wo contrast [id number] 13:16:00PROCEDURE INFORMATION:Exam: MR Lumbar Spine Without Contrast.Exam [...] to bepresent.Olga Farmer MD On 11/03/2019 18:32:53; [id number]--Ybte by: Olga AtkinsapDictated Date/time: 11/03/19 18:32Electronically Signed by: Olga Atkins 11/02/2017:32FINAL REPORTUT [facility] Spine thoracic wo contrast [id number] 13:16:00PROCEDURE INFORMATION:Exam: MR Thoracic Spine Without ContrastExam [...] central canalstenosis.Dakotah Carter MD On 11/04/2019 08:43:44; [id number]--Txkt by: Dakotah Carter MDDictated Date/time: 11/04/19 08:43Electronically Signed by: Dakotah Carter MD 11/04/2007:43FINAL REPORTUT [facility] Spine cervical wo contrast [id number] 13:16:00PROCEDURE INFORMATION:Exam: MR Cervical Spine Without ContrastExam [...] as described.Dakotah Carter MD On 11/04/2019 08:53:06; [id number]--Cpzq by: Dakotah Carter MDDictated Date/time: 11/04/19 08:53Electronically Signed by: Dakotah Carter MD 11/04/2007:53FINAL REPORTUT Physicians[U] XRAY SPINE LUMBOSACRAL 2 OR 3 VWS [id number] 10:01:00Images acquired, not reported on this accession number.[place] PhysiciansSARS coronavirus 2 RNA [Presence] in Respiratory specimen by LASHANDA with probe [id number] 15:06:57 Test Item Value Reference Range Interpretation Comments SARS coronavirus 2 RNA Not detected Not-Detected [Presence] in Respiratory specimen by LASHANDA with probe detection (test code = 14759-0) TANYA HERBERT [id number] 10:53:00 Test Item Value Reference Range Interpretation Comments IgE Lvl (test code = IgE Lvl) 35.2 10.0-100.0 [facility] [id number] 09:34:00 Test Item Value Reference Range Interpretation Comments Troponin-I (test code no gt See_Comment [Auto mated message] The = Troponin-I) system which g enerated this result transmit vasyl reference range : <=0.40. The reference r niko was not used to interpr et this result as minnie l/abnormal. [facility] [email or web address] [id number] 09:34:00 Test Item Value Reference Range Interpretation Comments Glucose Lvl (test code = Glucose Lvl) 248 70-99 [facility] [id number] 09:34:00 Test Item Value Reference Range Interpretation Comments BUN (test code = BUN) 16 7-22 [facility] [id number] 09:34:00 Test Item Value Reference Range Interpretation Comments Creatinine Lvl (test code = Creatinine 1.12 0.50-1.40 Lvl) [facility] [id number] 09:34:00 Test Item Value Reference Range Interpretation Comments Sodium Lvl (test code = Sodium Lvl) 136 135-145 [facility] [id number] 09:34:00 Test Item Value Reference Range Interpretation Comments Potassium Lvl (test code = Potassium 4.5 3.5-5.1 Lvl) [facility] [id number] 09:34:00 Test Item Value Reference Range Interpretation Comments Chloride Lvl (test code = Chloride Lvl) 106 95-109 [facility] [id number] 09:34:00 Test Item Value Reference Range Interpretation Comments CO2 (test code = CO2) 26 24-32 [facility] [id number] 09:34:00 Test Item Value Reference Range Interpretation Comments AGAP (test code = AGAP) 8.5 10.0-20.0 [facility]2019-12-14 09:34:00 Test Item Value Reference Range Interpretation Comments Calcium Lvl (test code = Calcium Lvl) 8.8 8.5-10.5 [facility]2019-12-14 09:34:00 Test Item Value Reference Range Interpretation Comments eGFR (test code = eGFR) 63 [facility] CampusCdddjgbWLQEKNJRVT0387-63-73 09:34:00 Test Item Value Reference Range Interpretation Comments Neutrophils # (test code = Neutrophils 9.5 1.5-8.1 #) [facility] [id number] 09:34:00 Test Item Value Reference Range Interpretation Comments Lymphocytes # (test code = Lymphocytes 0.6 1.0-5.5 #) [facility] CampusByoqhluGVATXDGTUI0951-86-13 09:34:00 Test Item Value Reference Range Interpretation Comments Monocytes # (test code 0.0 See_Comment [Aut omated message] The = Monocytes #) system which generated this result tra nsmitted reference range : <=0.8. The reference r niko was not used to int erpret this result as normal/abnormal . [facility] CampusDjaanrqPMBCJYZGWT2831-62-15 09:34:00 Test Item Value Reference Range Interpretation Comments Segs (test code = Segs) 94.0 45.0-75.0 [facility] CampusSbbcgmzNRFLUXWVLW1996-73-11 09:34:00 Test Item Value Reference Range Interpretation Comments Bands (test code = 0.0 See_Comment [Automat ed message] The Bands) system which ge nerated this result transmit vasyl reference range : <=11.0. The reference r niko was not used to interpr et this result as minnie l/abnormal. [facility] CampusVmtabfxXSIGWAADUV4673-43-64 09:34:00 Test Item Value Reference Range Interpretation Comments Lymphocytes (test code = Lymphocytes) 5.0 20.0-40.0 [facility] CampusXnhcoqaJHBFCVFPGH9008-19-31 09:34:00 Test Item Value Reference Range Interpretation Comments Monocytes (test code = Monocytes) 0.0 2.0-12.0 [facility] CampusWvtevevUEPSHSNBHJ1575-54-74 09:34:00 Test Item Value Reference Range Interpretation Comments Atypical Lymphs (test code = Atypical 1.0 Lymphs) [place] [id number] 09:34:00 Test Item Value Reference Range Interpretation Comments RBC Morph (test code = Normal (03/08/19 3:34 RBC Morph) AM) [facility] [id number] 09:34:00 Test Item Value Reference Range Interpretation Comments Plt Morph (test code = Normal (03/08/19 3:34 Plt Morph) AM) [facility] C[id number] 09:34:00 Test Item Value Reference Range Interpretation Comments WBC (test code = WBC) 10.1 3.7-10.4 [facility] Camp[id number] 09:34:00 Test Item Value Reference Range Interpretation Comments RBC (test code = RBC) 4.59 4.70-6.10 [facility] CampusNmgxpkeKBNUSEZJGH2711 09:34:00 Test Item Value Reference Range Interpretation Comments Hgb (test code = Hgb) 12.8 14.0-18.0 [facility] CampusUgbyscgSUOTWQUZBC9720-01-62 09:34:00 Test Item Value Reference Range Interpretation Comments Hct (test code = Hct) 38.7 42.0-54.0 [facility] CampusHkmghinSZXBZGTEDJ7580-97-61 09:34:00 Test Item Value Reference Range Interpretation Comments MCV (test code = MCV) 84.3 80.0-94.0 [facility] CampusHnooxzwEWVFXSFNYC2444-55-30 09:34:00 Test Item Value Reference Range Interpretation Comments MCH (test code = MCH) 27.9 pg 27.0-31.0 [facility] CampusPvjiugoJUYZCZLVHW5683-75-28 09:34:00 Test Item Value Reference Range Interpretation Comments MCHC (test code = MCHC) 33.1 32.0-36.0 [facility] CampusFmhyczfLVNIEGASYR5569-55-06 09:34:00 Test Item Value Reference Range Interpretation Comments RDW (test code = RDW) 15.6 11.5-14.5 [facility] CampusFdmdvexWVITBXDLGM1640-13-53 09:34:00 Test Item Value Reference Range Interpretation Comments Platelet (test code = Platelet) 216 133-450 [facility] CampusEmrxfulYXUIANDVBF5967-28-69 09:34:00 Test Item Value Reference Range Interpretation Comments MPV (test code = MPV) 6.8 7.4-10.4 [facility]cvslWNEDIK6140-16-36 09:34:00 Test Item Value Reference Range Interpretation Comments CHD Risk (test code = CHD Risk) 3.39 1 4.00-7.30 [facility] HospitalVzcanyyKDFZHI5908-09-67 09:34:00 Test Item Value Reference Range Interpretation Comments Trig (test code = Trig) 119 [facility] ParkwayJqxaswiYKWEJB0860-81-05 09:34:00 Test Item Value Reference Range Interpretation Comments Chol (test code = Chol) 156 [facility] HospitalPttqxovHAAKNK4734-07-08 09:34:00 Test Item Value Reference Range Interpretation Comments HDL (test code = HDL) 46 [facility] ParkwayNiflabfQORQXA3582-17-45 09:34:00 Test Item Value Reference Range Interpretation Comments LDL (Calculated) (test code = LDL 86 (Calculated)) [facility] ParkwayIhrwagqLYGJNK3565-57-16 09:34:00 Test Item Value Reference Range Interpretation Comments VLDL (test code = VLDL) 24 1 [facility] [id number] 09:34:00 Test Item Value Reference Range Interpretation Comments Hgb A1C (test code = Hgb A1C) 7.5 [facility] ParkwayCARTalkToAC [id number] 04:13:00 Test Item Value Reference Range Interpretation Comments Troponin-I (test code no gt See_Comment [Auto mated message] The = Troponin-I) system which g enerated this result transmit vasyl reference range : <=0.40. The reference r niko was not used to interpr et this result as minnie l/abnormal. [facility] HospitalBiophytis [id number] 02:27:00 Test Item Value Reference Range Interpretation Comments Troponin-I (test code no gt See_Comment [Auto mated message] The = Troponin-I) system which g enerated this result transmit vasyl reference range : <=0.40. The reference r niko was not used to interpr et this result as minnie l/abnormal. [facility] zwoor.com [id number] 22:31:00 Test Item Value Reference Range Interpretation Comments Calcium Lvl (test code = Calcium Lvl) 8.8 8.5-10.5 [facility] zwoor.com [id number] 22:31:00 Test Item Value Reference Range Interpretation Comments eGFR (test code = eGFR) 55 [facility] zwoor.com [id number] 22:31:00 Test Item Value Reference Range Interpretation Comments AGAP (test code = AGAP) 11.0 10.0-20.0 [facility]NanviucCAPLKFTEIP4668-98-20 22:31:00 Test Item Value Reference Range Interpretation Comments WBC (test code = WBC) 10.5 3.7-10.4 [facility] HospitalLbxakawFUFFCYHYRQ8279-53-92 22:31:00 Test Item Value Reference Range Interpretation Comments RBC (test code = RBC) 4.88 4.70-6.10 [facility] HospitalCwqqopfZSVQSVLZVW6499-86-38 22:31:00 Test Item Value Reference Range Interpretation Comments Hgb (test code = Hgb) 13.5 14.0-18.0 [facility] HospitalLddrfubXTXSJQOAXZ6318-86-77 22:31:00 Test Item Value Reference Range Interpretation Comments Hct (test code = Hct) 41.4 42.0-54.0 [facility] CampusHeauzkpTUXMUDCPNG9803-08-53 22:31:00 Test Item Value Reference Range Interpretation Comments MCV (test code = MCV) 85.0 80.0-94.0 [facility] CampusXlhexljIMFONRMZKP1840-41-89 22:31:00 Test Item Value Reference Range Interpretation Comments MCH (test code = MCH) 27.6 pg 27.0-31.0 [facility] HospitalUjnjhrzFWIFTENMIH7747-97-17 22:31:00 Test Item Value Reference Range Interpretation Comments MCHC (test code = MCHC) 32.5 32.0-36.0 [facility] CampusXqudobuUGYEVBLQDL1846-32-34 22:31:00 Test Item Value Reference Range Interpretation Comments RDW (test code = RDW) 15.7 11.5-14.5 [facility] HospitalJnsbvvkLMHNMCCYDV9161-87-99 22:31:00 Test Item Value Reference Range Interpretation Comments Platelet (test code = Platelet) 228 133-450 [facility] HospitalKefftybEIAEKSCBJK2293-03-02 22:31:00 Test Item Value Reference Range Interpretation Comments MPV (test code = MPV) 6.9 7.4-10.4 [facility] ParkwayCARDIAC [id number] 22:31:00 Test Item Value Reference Range Interpretation Comments BNP (test code = BNP) 51 [facility] MULER8219-03-07 22:31:00 Test Item Value Reference Range Interpretation Comments Glucose Lvl (test code = Glucose Lvl) 138 70-99 [facility] [id number] 22:31:00 Test Item Value Reference Range Interpretation Comments BUN (test code = BUN) 19 7-22 [facility]2019-12-13 22:31:00 Test Item Value Reference Range Interpretation Comments Creatinine Lvl (test code = Creatinine 1.27 0.50-1.40 Lvl) [facility]2019-12-13 22:31:00 Test Item Value Reference Range Interpretation Comments Sodium Lvl (test code = Sodium Lvl) 137 135-145 [facility]2019-12-13 22:31:00 Test Item Value Reference Range Interpretation Comments Potassium Lvl (test code = Potassium 4.0 3.5-5.1 Lvl) [facility]2019-12-13 22:31:00 Test Item Value Reference Range Interpretation Comments Chloride Lvl (test code = Chloride Lvl) 105 95-109 [facility]2019-12-13 22:31:00 Test Item Value Reference Range Interpretation Comments CO2 (test code = CO2) [facility][U] XRAY SHOULDER MIN 2 VWS LEFT [id number] 10:24:00Images acquired, not reported on this accession number.[place] PhysiciansPost Op Promis 29 [id number] 14:04:11 Test Item Value Reference Range Interpretation Comments Pain Interference: (test code = Pain 54.1 1 N Interference:) Pain Intensity: (test code = Pain 49.7 1 N Intensity:) Physical Function: (test code = 30.1 1 N Physical Function:) Satisfaction Role: (test code = 35.7 1 N Satisfaction Role:) [place] [facility][U] XRAY SHOULDER MIN 2 VWS RIGHT [id number] 10:47:00Images acquired, not reported on this accession number.[facility][U] XRAY SHOULDER MIN 2 VWS LEFT [id number] 10:29:00Images acquired, not reported on this accession number.KS PhysiciansPost Op Promis 29 [id number] 14:04:32 Test Item Value Reference Range Interpretation Comments Pain Interference: (test code = Pain 68.2 1 N Interference:) Pain Intensity: (test code = Pain 57.5 1 N Intensity:) Physical Function: (test code = 28 1 N Physical Function:) Satisfaction Role: (test code = 26.5 1 N Satisfaction Role:) [facility][U] XRAY SHOULDER MIN 2 VWS LEFT [id number] 10:04:00Images acquired, not reported on this accession number.[place] PhysiciansELECTROLYTES 2018-05-18 08:52:00 Test Item Value Reference Range Interpretation Comments AGAP (test code = AGAP) 12.7 10.0-20.0 [facility] HospitalSfpetjxTWICIFZRFBTG2971-11-33 08:52:00 Test Item Value Reference Range Interpretation Comments Calcium Lvl (test code = Calcium Lvl) 8.1 8.5-10.5 [facility] HospitalJwphlobNHVOUEQSQZPY9374-77-07 08:52:00 Test Item Value Reference Range Interpretation Comments Chloride Lvl (test code = Chloride Lvl) 104 95-109 [facility] HospitalLabcesjGCMBPENOGGUC1151-84-68 08:52:00 Test Item Value Reference Range Interpretation Comments Sodium Lvl (test code = Sodium Lvl) 140 135-145 [facility] HospitalNaeyssnRYIYMCQEAUNN5396-11-86 08:52:00 Test Item Value Reference Range Interpretation Comments Potassium Lvl (test code = Potassium 4.7 3.5-5.1 Lvl) [facility] HospitalVdshypcGYIUNNCMFIMA6386-20-82 08:52:00 Test Item Value Reference Range Interpretation Comments eGFR (test code = eGFR) 70 [facility]IthklhdNLFKUECGKQQF9659-82-65 08:52:00 Test Item Value Reference Range Interpretation Comments Creatinine Lvl (test code = Creatinine 1.04 0.50-1.40 Lvl) [facility]HcqdlmxVLJEBVTHOEUG2507-63-83 08:52:00 Test Item Value Reference Range Interpretation Comments Glucose Lvl (test code = Glucose Lvl) 126 70-99 [facility] HospitalDmwprulZFLZEUBZYIRY0579-76-56 08:52:00 Test Item Value Reference Range Interpretation Comments CO2 (test code = CO2) 28 24-32 [facility] HospitalFysdbbzZZSIOJLRYVYD1801-27-20 08:52:00 Test Item Value Reference Range Interpretation Comments BUN (test code = BUN) 17 7-22 [facility] CampusCycyiuyKLTOLNNDZX0497-28-92 08:52:00 Test Item Value Reference Range Interpretation Comments Lymphocytes (test code = Lymphocytes) 7.9 20.0-40.0 [facility] CampusAdvkegdZRPLBHJKYO1058-17-66 08:52:00 Test Item Value Reference Range Interpretation Comments Segs (test code = Segs) 86.8 45.0-75.0 [facility] CampusIcellioJJVALLBKDQ7247-15-39 08:52:00 Test Item Value Reference Range Interpretation Comments Basophils (test code = 0.2 See_Comment [Aut omated message] The Basophils) system which ge nerated this result tra nsmitted reference range : <=1.0. The reference r niko was not used to int erpret this result as normal/abnormal . [facility] CampusMsqxixnUQVFMVIDRU2752-44-67 08:52:00 Test Item Value Reference Range Interpretation Comments Monocytes (test code = Monocytes) 5.1 2.0-12.0 [facility] CampusRikmxcuUJEQRCIYPL6017-47-93 08:52:00 Test Item Value Reference Range Interpretation Comments Neutrophils # (test code = Neutrophils 11.8 1.5-8.1 #) [facility] CampusQxiyrloGYVNNEYFLS5367-43-46 08:52:00 Test Item Value Reference Range Interpretation Comments Lymphocytes # (test code = Lymphocytes 1.1 1.0-5.5 #) [facility] CampusKypkvcyUTCRGDMRKW7348-39-92 08:52:00 Test Item Value Reference Range Interpretation Comments Monocytes # (test code 0.7 See_Comment [Aut omated message] The = Monocytes #) system which generated this result tra nsmitted reference range : <=0.8. The reference r niko was not used to int erpret this result as normal/abnormal . [facility] CampusLrjexuvXZLRPFPGTD4608-69-64 08:52:00 Test Item Value Reference Range Interpretation Comments MPV (test code = MPV) 7.2 7.4-10.4 [facility] CampusEbynkifQSEVCTEFJQ1860-27-08 08:52:00 Test Item Value Reference Range Interpretation Comments RBC (test code = RBC) 4.05 4.70-6.10 [facility] CampusEzjnqktLWTYBVCSWO6373-00-09 08:52:00 Test Item Value Reference Range Interpretation Comments WBC (test code = WBC) 13.6 3.7-10.4 [facility] CampusCfgpwzzBXETWUFKFF4897-80-52 08:52:00 Test Item Value Reference Range Interpretation Comments Hct (test code = Hct) 33.1 42.0-54.0 [facility] CampusMdkgqekNAALUJAZZD8629-92-86 08:52:00 Test Item Value Reference Range Interpretation Comments Hgb (test code = Hgb) 10.6 14.0-18.0 [facility] CampusTwepxqrLOJBUWYWSM3100-08-31 08:52:00 Test Item Value Reference Range Interpretation Comments MCHC (test code = MCHC) 32.1 32.0-36.0 [facility] CampusPiyglauDIBPRVFALS1100-60-05 08:52:00 Test Item Value Reference Range Interpretation Comments MCH (test code = MCH) 26.3 pg 27.0-31.0 [facility] CampusKlnzsmfGESWDGPTQN9732-74-93 08:52:00 Test Item Value Reference Range Interpretation Comments RDW (test code = RDW) 16.5 11.5-14.5 [facility] CampusDcktjoxMATHANFHBE8863-74-35 08:52:00 Test Item Value Reference Range Interpretation Comments Platelet (test code = Platelet) 201 133-450 [facility] CampusOpzjlcfCKTEOPGJCY2388-31-79 08:52:00 Test Item Value Reference Range Interpretation Comments MCV (test code = MCV) 81.8 80.0-94.0 [facility] CampusMehbbutUFFIZLTIPA2418-58-54 14:10:00 Test Item Value Reference Range Interpretation Comments POC Hemoglobin (test code = POC 13.9 14.0-18.0 Hemoglobin) [facility] CampusJsocxpuPGNGOPLDNP6245-18-47 14:10:00 Test Item Value Reference Range Interpretation Comments POC Ion Ca (test code = POC Ion Ca) 1.23 1.05-1.25 [facility] CampusNjtcdwlZEULZLOQVM4731-34-41 14:10:00 Test Item Value Reference Range Interpretation Comments POC Hematocrit (test code = POC 41.0 42.0-54.0 Hematocrit) [facility] CampusPfuzfsqMXQSCLPGUN3865-80-73 14:10:00 Test Item Value Reference Range Interpretation Comments POC AGAP (test code = POC AGAP) 16.0 10.0-20.0 [facility] CampusJkbjbnfQOFWFIGTGB8114-44-47 14:10:00 Test Item Value Reference Range Interpretation Comments eGFR (test code = eGFR) 83 [facility] CampusFtepmfxIFIKOCEKHH5135-07-21 14:10:00 Test Item Value Reference Range Interpretation Comments POC Carbon Dioxide (test code = POC 26 24-32 Carbon Dioxide) [facility] CampusAthrtssZMAWXETOCH4931-04-46 14:10:00 Test Item Value Reference Range Interpretation Comments POC BUN (test code = POC BUN) 12 10-14 [facility]OnhixayHDNDNKJOAM0220-[facility]-12 14:10:00 Test Item Value Reference Range Interpretation Comments POC Creatinine (test code = POC 0.9 0.5-1.4 Creatinine) [facility] CampusFoqjernUFZLSNOQQI4819-01-26 14:10:00 Test Item Value Reference Range Interpretation Comments POC Glucose (test code = POC Glucose) 117 70-99 [facility] CampusNdtsakpIOZAZYSHGW0095-48-60 14:10:00 Test Item Value Reference Range Interpretation Comments POC Sodium (test code = POC Sodium) 140 135-145 [facility] HospitalLxfmjyoMELNSCCWVN0159-46-87 14:10:00 Test Item Value Reference Range Interpretation Comments POC Potassium (test code = POC 4.4 3.5-5.1 Potassium) [facility] CampusCjkpjuwDIXRRTXYPT2808-42-23 14:10:00 Test Item Value Reference Range Interpretation Comments POC Chloride (test code = POC Chloride) 103 95-109 [facility]] HEPATITIS [id number] 12:10:01 Test Item Value Reference Range Interpretation Comments Hepatitis B Surface Antigen (test Negative Negative code = 5195-3) Hepatitis C Antibody (test code = Negative 89586-1) Hepatitis B Core IgM (test code = Negative Negative 93122-5) Hepatitis A IgM (test code = Negative Negative 22491-7) [facility]] VITAMIN [id number] 12:10:01 Test Item Value Reference Range Interpretation Comments Vitamin B12 Level (test code = 742 pg/ml 254-1320 2132-9) [facility]] TSH, 3RD GENERATION W/REFLEX TO [id number] 12:10:01 Test Item Value Reference Range Interpretation Comments TSH; Above High Threshold 5.100 {uIU/ml} 0.360-3.740 (test code = 82677-4) [facility]] T4, [id number] 12:10:01 Test Item Value Reference Range Interpretation Comments T4 Free (test code = 3024-7) 1.06 ng/dl 0.76-1.46 [facility]] FOLATE, [id number] 12:10:01 Test Item Value Reference Range Interpretation Comments Folate Level (test code = 2284-8) 31.8 ng/ml >=3.0 [facility]] NORMA PANEL, MJXKNROHDKNHI3233-50-02 12:10:01 Test Item Value Reference Range Interpretation Comments Antinuclear Antibody Negative Negative Marked Cytoplamic Screen (test code = staining 54519-1) present.Because the NORMA was Negativ e, the Reflex assays f or Anti-dsDNA, SM/ HEALTH INSURANCE AGENT, [place] (SSA/S SB) were not perfor med. [facility]] VITAMIN [id number] 12:10:01 Test Item Value Reference Range Interpretation Comments Vitamin B6 18.4 {UG/L} 5.3-46.7 This test was d eveloped and its Level (test performance code = characteristics determined by Vitamin B6 [facility]. It has not been Level) cleared orappro vanesa by the Food and Drug Administration. Performed At: [facility] [place] [address] [id number] ra Wilson VASQUEZ Ph:[phone] [facility]] VITAMIN B1, WHOLE [id number] 12:10:01 Test Item Value Reference Range Interpretation Comments Vitamin B1 172.1 66.5-200.0 This test was d eveloped and its Level (test nmol/L performance code = characteristics determined by Vitamin B1 [facility]. It has not been Level) cleared orappro vanesa by the Food and Drug Administration. Performed At: [address] [place] [address] [id number] ra Wilson VASQUEZ Ph:[phone] [facility][H] Immunofixation Snoijvorkpkeci2124-11-74 12:10:01 Test Item Value Reference Range Interpretation [...] con cur with theresiden t's interpretation. CPT 50135-RMRvztmje zenia Gautam Chang MD (Path) 05/10 1:21 PM [facility][H] Immunofixation Eletrophoresis Nkmqh6645-03-40 12:10:01 Test Item Value Reference Range Interpretation [...] s andconcur with the resident's interpretation. CPT 41876-BCCdkgcyw zenia Gautam Chang MD (Path) 05/10 1:30 PM [facility]iciansCHEM [id number] 18:54:00 Test Item Value Reference Range Interpretation Comments POC Creatinine (test code = POC 1.1 0.5-1.4 Creatinine) [facility] VelascaannCHEM QCNXA4447-07-58 18:54:00 Test Item Value Reference Range Interpretation Comments eGFR (test code = eGFR) 65 [facility] Arthrocentesis Major Joint [id number] 13:12:00EXAM: FLUOROSCOPY-GUIDED LEFT SHOULDER ASPIRATIONDATE: 04/22/2018 13:12 [...] shoulder injection.--This report was dictated by a Student Development Coordinator/Fellow/Physician Shake Cutter. Vivek personallyreviewed the images as well as the interpretation and agree with the findings.Read by: Katty Mondragon MD Resident/Fellow/PhysicianAssistant: Katty Mondragon MDDictated Date/time: 04/23/18 12:56Electronically Signed by: John Freeman MD 04/24/1899:23FINAL REPORTUT Physicians[LH] AFB Culture and Smear,Llpka7234-13-20 13:00:01 Test Item Value Reference Range Interpretation Comments AFB Culture and Cancel Reason: QNS Smear,Broth (test code = AFB Culture and Smear,Broth) [facility][QH] CULTURE, FUNGUS W/SMEAR NOT HAIR, SKIN, [id number] 13:00:01 Test Item Value Reference Range Interpretation Comments CULTURE, FUNGUS W/SMEAR Cancel Reason: QNS NOT HAIR, SKIN, BLOOD (test code = CULTURE, FUNGUS W/SMEAR NOT HAIR, SKIN, BLOOD) [facility][H] Crystal Exam Body [id number] 13:00:01 Test Item Value Reference Range Interpretation Comments Crystal Exam Body Fluid Cancel Reason: QNS (test code = Crystal Exam Body Fluid) [facility][H] BF Cell Cnt w/Vhjl6088-06-93 13:00:01 Test Item Value Reference Range Interpretation Comments BF Cell Cnt w/Diff (test Cancel Reason: QNS code = BF Cell Cnt w/Diff) [facility][H] C Synov w/[id number] 13:00:01 Test Item Value Reference Range Interpretation Comments FINAL REPORT (test No Growth At 14 Source Details: pf code = FINAL Days bottle only REPORT) [facility] Sp[facility] cervical wo contrast [id number] 16:57:00 Test Item Value Reference Range Interpretation Comments Spine cervical wo Cancel Reason: contrast MRI (test Duplicate Order code = Spine cervical wo contrast MRI) [facility] Shoulder wo contrast [id number] 16:23:00 Test Item Value Reference Range Interpretation Comments Shoulder wo contrast MR Cancel Reason: Exam (test code = Shoulder Replaced wo contrast MR) [facility] Shoulder w/wo contrast [id number] 16:23:00MRI of the LEFT shoulderINDICATION: Shoulder pain.COMPARISON: [...] moderate osteoarthritis of theglenohumeral joint.5. 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 An extruded disc herniation is seen migrating [...] decreased in size since the magnetic resonance qgylhmy0603/16/2016.SL: [id number]--Kedn by: Nasim Rahman MDDictated Date/time: 04/16/18 13: 10Electronically Signed by: Nasim Rahman MD 04/16/1912:38FINAL REPORTUT [facility] Spine cervical wo contrast [id number] 10:56:00Study: Spine cervical wo contrast MRIClinical Indication: [...] canal stenosis with severe bilateral neural foraminalnarrowing.SL: [id number]--Nmqn by: Sabion Lunaictated Date/time: 04/16/18 13:41Electronically Signed by: Zurdo Luna MD 04/16/1912:49FINAL REPORTUT Physicians[U] XRAY SHOULDER MIN 2 VWS LEFT [id number] 10:47:00Images acquired, not reported on this accession number.[facility][U] XRAY SPINE CERVICAL 2 OR 3 VWS [id number] 13:29:00 Images acquired, not reported on this accession number.[facility][U] XRAY SPINE LUMBOSACRAL 2 OR 3 VWS [id number] 13:29:00Images acquired, not reported on this accession number.[facility] PhysiciansGlucose (Point of Care In Office) 2017-12-12 13:47:00 Test Item Value Reference Range Interpretation Comments Glucose POC Lifescan (test code = 137 Glucose POC Lifescan) External QC Done Today? (test code = Yes External QC Done Today?) [facility][H] Allergens, Inhalants, Comprehensive [id number] 14:29:01 Test Item Value Reference Range Interpretation Comments Class Description (test Comment Aleks cowan of Specific code = Class Description) Ig E Class Description of Class ---- -------- ----- ---- - < 0.10 0 Nega tive 0.10 - 0.31 0/I Equivocal/Low 0 .32 - 0.55 I Low 0. 56 - 1.40 II Moderat e 1.41 - 3.90 III High 3.91 - 19. 00 IV Very High 19 .01 - 100.00 V Very High >100.00 Very High IgE Level (test code = 2 {IU/ml} 0-100 58240-3) Allergen, Aspergillus <0.10 Class 0 fumigatus (test [...] Jose) Allergen, Grass, <0.10 Class 0 Perennial Revere (test code = Allergen, Grass, Perennial [place]) Allergen, Grass, Pablo <0.10 Class 0 (test code = Allergen, Grass, Pablo) Allerg Horse Dander (test <0.10 Class 0 code = Allerg Horse Dander) Allergen House Dust Arnold <0.10 Class 0 (test code = Allergen House Dust Arnold) Allergen, Penicillium <0.10 Class 0 chrysogen (test code = Allergen, Penicillium chrysogen) Allergen, Tree, <0.10 Class 0 [place] (test code = Allergen, Tree, [place]) Allergen, Tree, Elm (test <0.10 Class 0 code = Allergen, Tree, Elm) Allergen, Tree, [place] <0.10 Class 0 [place] (test code = Allergen, Tree, [place]) Allergen, Tree, [place] <0.10 Class 0 (test code = Allergen, Tree, [place]) Allergen, Tree, [place] <0.10 Class 0 (test code = Allergen, Tree, [place]) Allerg Tree Spangler <0.10 Class 0 (test code = Allerg Tree Spangler) Allergen, [place], <0.10 Class 0 Common/Short Ragweed (test code = Allergen, [place], Common/Short Ragweed) Allergen, [place], Mugwort <0.10 Class 0 (test code = Allergen, [place], Mugwort) Allergen, [place], Togolese <0.10 Class 0 Plantain (test code = Allergen, [place], [place]og[place]ese Plantain) Allergen, [place], Lambs <0.10 Class 0 Perfor med At: [facility] (test code = [facility] p Allergen, [place], Lambs [facility] [id number] [facility]) [address] [place], [place] [id number] deepti Woo MD Ph:[phone] [facility][O] Hemoglobin A1c (in office)2017-11-05 00:00:00 Test Item Value Reference Range Interpretation Comments HEMOGLOBIN A1c (test code = 4548-4) 8.9 External QC Done? (test code = External Yes QC Done?) [facility][U] XRAY SPINE LUMBOSACRAL 2 OR 3 VWS [id number] 08:46:00 Images acquired, not reported on this accession number.[facility]iciansREFER[facility] LAB [id number] 21:55:00 Test Item Value Reference Range Interpretation Comments Test Name (test code = Test BROAD RANGE PCR Name) [facility]annREF[facility] [id number] 21:55:00 Test Item Value Reference Range Interpretation Comments Misc Lab (test code = Misc Lab) SEE COMMENT [facility] [id number] 12:00:00 Test Item Value Reference Range Interpretation Comments eGFR (test code = eGFR) 87 [facility] [id number] 12:00:00 Test Item Value Reference Range Interpretation Comments ALT (test code = ALT) 10 See_Comment [Auto mated message] The system which ge nerated this result transmit vasyl reference range : <=65. The reference range was not used to interpr et this result as minnie l/abnormal. [facility]2018-02-23 12:00:00 Test Item Value Reference Range Interpretation Comments Creatinine Lvl (test code = Creatinine 0.82 0.50-1.40 Lvl) [facility]2018-02-23 12:00:00 Test Item Value Reference Range Interpretation Comments AST (test code = AST) 7 See_Comment [Auto mated message] The system which ge nerated this result transmit vasyl reference range : <=37. The reference range was not used to interpr et this result as minnie l/abnormal. [facility]2018-02-23 12:00:00 Test Item Value Reference Range Interpretation Comments BUN (test code = BUN) 6 7- [facility]2018-02-23 12:00:00 Test Item Value Reference Range Interpretation Comments Glucose Lvl (test code = Glucose Lvl) 134 70-99 [facility]2018-02-23 12:00:00 Test Item Value Reference Range Interpretation Comments Potassium Lvl (test code = Potassium 3.7 3.5-5.1 Lvl) [facility]2018-02-23 12:00:00 Test Item Value Reference Range Interpretation Comments Sodium Lvl (test code = Sodium Lvl) 141 135-145 [facility]2018-02-23 12:00:00 Test Item Value Reference Range Interpretation Comments Albumin Lvl (test code = Albumin Lvl) 2.7 3.5-5.0 [facility]2018-02-23 12:00:00 Test Item Value Reference Range Interpretation Comments Calcium Lvl (test code = Calcium Lvl) 8.3 8.5-10.5 [facility]2018-02-23 12:00:00 Test Item Value Reference Range Interpretation Comments CO2 (test code = CO2) 28 24-32 [facility]2018-02-23 12:00:00 Test Item Value Reference Range Interpretation Comments Chloride Lvl (test code = Chloride Lvl) 105 95-109 [facility]2018-02-23 12:00:00 Test Item Value Reference Range Interpretation Comments Bili Total (test code = Bili Total) 1.1 0.2-1.3 [facility]2018-02-23 12:00:00 Test Item Value Reference Range Interpretation Comments Alk Phos (test code = Alk Phos) 85 39-136 [facility]2018-02-23 12:00:00 Test Item Value Reference Range Interpretation Comments Total Protein (test code = Total 5.9 6.4-8.4 Protein) [facility]2018-02-23 12:00:00 Test Item Value Reference Range Interpretation Comments B/C Ratio (test code = B/C Ratio) 7 1 6-25 [facility]2018-02-23 12:00:00 Test Item Value Reference Range Interpretation Comments AGAP (test code = AGAP) 11.7 10.0-20.0 [facility]2018-02-23 12:00:00 Test Item Value Reference Range Interpretation Comments A/G Ratio (test code = A/G Ratio) 0.8 1 0.7-1.6 [facility]2018-02-23 12:00:00 Test Item Value Reference Range Interpretation Comments Globulin (test code = Globulin) 3.2 2.7-4.2 [facility] [id number] 12:00:00 Test Item Value Reference Range Interpretation Comments Monocytes (test code = Monocytes) 6.7 2.0-12.0 [facility] CampusVrvqconPICUEYLDWC7954-06-29 12:00:00 Test Item Value Reference Range Interpretation Comments Eosinophils (test code = 1.7 See_Comment [A utomated message] The Eosinophils) system which ge nerated this result tra nsmitted reference range : <=4.0. The reference r niko was not used to int erpret this result as normal/abnormal . [facility] CampusHmpjvbyPPQSLHBTPU0161-53-21 12:00:00 Test Item Value Reference Range Interpretation Comments Segs (test code = Segs) 73.3 45.0-75.0 [facility] CampusFeeyahiEOYLRJMXQC2442-13-38 12:00:00 Test Item Value Reference Range Interpretation Comments Lymphocytes (test code = Lymphocytes) 17.8 20.0-40.0 [facility] CampusIzjwrkeFMLVZKLGZY4097-03-09 12:00:00 Test Item Value Reference Range Interpretation Comments Lymphocytes # (test code = Lymphocytes 1.5 1.0-5.5 #) [facility] CampusSjbmkywOYSWGOMNKK9919-03-13 12:00:00 Test Item Value Reference Range Interpretation Comments Basophils (test code = 0.5 See_Comment [Aut omated message] The Basophils) system which ge nerated this result tra nsmitted reference range : <=1.0. The reference r niko was not used to int erpret this result as normal/abnormal . [facility] CampusPnjrshtJLREVBGHKD1990-31-39 12:00:00 Test Item Value Reference Range Interpretation Comments Segs-Bands # (test code = Segs-Bands #) 6.0 1.5-8.1 [facility] CampusAkgdbqbLOLMJLQHAW1957-74-11 12:00:00 Test Item Value Reference Range Interpretation Comments Monocytes # (test code 0.6 See_Comment [Aut omated message] The = Monocytes #) system which generated this result tra nsmitted reference range : <=0.8. The reference r niko was not used to int erpret this result as normal/abnormal . [facility] CampusKzykfapHVYTYGXSUL0946-54-44 12:00:00 Test Item Value Reference Range Interpretation Comments Microcyte (test code = 1+ *ABN*(05/18/17 Microcyte) 6:00 AM) [facility] C[id number] 12:00:00 Test Item Value Reference Range Interpretation Comments Eosinophils # (test code 0.1 See_Comment [A utomated message] The = Eosinophils #) system whic h generated this result tra nsmitted reference range : <=0.5. The reference r niko was not used to int erpret this result as normal/abnormal . [facility] CampusCasglwwUTUXGHUYLT5186-92-79 12:00:00 Test Item Value Reference Range Interpretation Comments MPV (test code = MPV) 7.0 7.4-10.4 [facility] CampusYtqyfemZMJPJHIQXZ3961-35-77 12:00:00 Test Item Value Reference Range Interpretation Comments Platelet (test code = Platelet) 317 133-450 [facility] C[id number] 12:00:00 Test Item Value Reference Range Interpretation Comments WBC (test code = WBC) 8.2 3.7-10.4 [facility] CampusAuqjqypPVWMJGMDJZ5473-74-22 12:00:00 Test Item Value Reference Range Interpretation Comments Hgb (test code = Hgb) 9.6 14.0-18.0 [facility] CampusGjmibikISYYAVCYZN3732-90-68 12:00:00 Test Item Value Reference Range Interpretation Comments Hct (test code = Hct) 29.0 42.0-54.0 [facility] CampusStuvngeVJJRJCPGDY3478-09-28 12:00:00 Test Item Value Reference Range Interpretation Comments RBC (test code = RBC) 3.79 4.70-6.10 [facility] CampusYpevoxwRBXWEUEIBU4033-07-23 12:00:00 Test Item Value Reference Range Interpretation Comments RDW (test code = RDW) 15.5 11.5-14.5 [facility] CampusTrbmculVIXNUAIVTW9879-46-92 12:00:00 Test Item Value Reference Range Interpretation Comments MCHC (test code = MCHC) 33.0 32.0-36.0 [facility] CampusRbfchmqRJQZCWPQDG8715-75-77 12:00:00 Test Item Value Reference Range Interpretation Comments MCV (test code = MCV) 76.5 80.0-94.0 [facility] CampusOjihjywANZBFFPTQT2880-00-53 12:00:00 Test Item Value Reference Range Interpretation Comments MCH (test code = MCH) 25.3 pg 27.0-31.0 [facility]2018-02-22 12:30:00 Test Item Value Reference Range Interpretation Comments Procalcitonin Lvl (test no gt See_Comment [Au tomated message] code = Procalcitonin Lvl) Th e system which generated this result transmitted ref erence range: <=0.10. The reference range was not used to interpr et this result as normal/abnormal . [facility] [id number] 10:15:00 Test Item Value Reference Range Interpretation Comments Procalcitonin Lvl <0.05 ng/mL See_Comment [Automate d message] (test code = The system whic h Procalcitonin Lvl) generated this result transmit vasyl reference range : <=0.10. The reference range was not used to interpret this result as normal/abnormal . [facility]2018-02-21 10:15:00 Test Item Value Reference Range Interpretation Comments Globulin (test code = Globulin) 2.7 2.7-4.2 [facility]2018-02-21 10:15:00 Test Item Value Reference Range Interpretation Comments A/G Ratio (test code = A/G Ratio) 1.0 1 0.7-1.6 [facility]2018-02-21 10:15:00 Test Item Value Reference Range Interpretation Comments B/C Ratio (test code = B/C Ratio) 13 1 6-25 [facility]2018-02-21 10:15:00 Test Item Value Reference Range Interpretation Comments AGAP (test code = AGAP) 15.3 10.0-20.0 [facility]2018-02-21 10:15:00 Test Item Value Reference Range Interpretation Comments Bili Total (test code = Bili Total) 0.4 0.2-1.3 [facility]2018-02-21 10:15:00 Test Item Value Reference Range Interpretation Comments Alk Phos (test code = Alk Phos) 91 39-136 [facility]2018-02-21 10:15:00 Test Item Value Reference Range Interpretation Comments Total Protein (test code = Total 5.5 6.4-8.4 Protein) [facility]2018-02-21 10:15:00 Test Item Value Reference Range Interpretation Comments eGFR (test code = eGFR) 82 [facility]2018-02-21 10:15:00 Test Item Value Reference Range Interpretation Comments AST (test code = AST) 11 See_Comment [Auto mated message] The system which ge nerated this result transmit vasyl reference range : <=37. The reference range was not used to interpr et this result as minnie l/abnormal. [facility]2018-02-21 10:15:00 Test Item Value Reference Range Interpretation Comments ALT (test code = ALT) 12 See_Comment [Auto mated message] The system which ge nerated this result transmit vasyl reference range : <=65. The reference range was not used to interpr et this result as minnie l/abnormal. [facility]2018-02-21 10:15:00 Test Item Value Reference Range Interpretation Comments Creatinine Lvl (test code = Creatinine 0.92 0.50-1.40 Lvl) [facility]2018-02-21 10:15:00 Test Item Value Reference Range Interpretation Comments Glucose Lvl (test code = Glucose Lvl) 125 70-99 [facility]2018-02-21 10:15:00 Test Item Value Reference Range Interpretation Comments BUN (test code = BUN) 12 7-22 [facility]2018-02-21 10:15:00 Test Item Value Reference Range Interpretation Comments Sodium Lvl (test code = Sodium Lvl) 141 135-145 [facility]2018-02-21 10:15:00 Test Item Value Reference Range Interpretation Comments Chloride Lvl (test code = Chloride Lvl) 103 95-109 [facility]2018-02-21 10:15:00 Test Item Value Reference Range Interpretation Comments Potassium Lvl (test code = Potassium 4.3 3.5-5.1 Lvl) [facility]2018-02-21 10:15:00 Test Item Value Reference Range Interpretation Comments Albumin Lvl (test code = Albumin Lvl) 2.8 3.5-5.0 [facility]2018-02-21 10:15:00 Test Item Value Reference Range Interpretation Comments CO2 (test code = CO2) 27 24-32 [facility]2018-02-21 10:15:00 Test Item Value Reference Range Interpretation Comments Calcium Lvl (test code = Calcium Lvl) 7.7 8.5-10.5 [facility]FfqkwdcIPQPMPQABK7902-69-28 10:15:00 Test Item Value Reference Range Interpretation Comments RBC (test code = RBC) 3.80 4.70-6.10 [facility] CampusKtgxswkPGYNFUDCRF4549-91-18 10:15:00 Test Item Value Reference Range Interpretation Comments WBC (test code = WBC) 8.8 3.7-10.4 [facility] CampusFedyfylHMTTFTMEAH5162-33-72 10:15:00 Test Item Value Reference Range Interpretation Comments MCHC (test code = MCHC) 33.8 32.0-36.0 [facility] CampusXdwfxqhWJVSXCWRZD2843-97-32 10:15:00 Test Item Value Reference Range Interpretation Comments MCH (test code = MCH) 25.8 pg 27.0-31.0 [facility] CampusPyygqtcXRBVJDNMXS9263-80-65 10:15:00 Test Item Value Reference Range Interpretation Comments MCV (test code = MCV) 76.4 80.0-94.0 [facility] CampusNhguanbRGAOOXUMRZ7031-81-07 10:15:00 Test Item Value Reference Range Interpretation Comments Hgb (test code = Hgb) 9.8 14.0-18.0 [facility] CampusSeeqvgtRXSIEGLVKK5468-02-65 10:15:00 Test Item Value Reference Range Interpretation Comments Hct (test code = Hct) 29.1 42.0-54.0 [facility] CampusRtcjuxbLMRUMUYESF3080-17-35 10:15:00 Test Item Value Reference Range Interpretation Comments MPV (test code = MPV) 6.8 7.4-10.4 [facility] CampusZorkvyuYEDURLIMAF9462-93-40 10:15:00 Test Item Value Reference Range Interpretation Comments Platelet (test code = Platelet) 293 133-450 [facility] CampusUdhhespHLMYGYHHJG7646-33-04 10:15:00 Test Item Value Reference Range Interpretation Comments RDW (test code = RDW) 16.0 11.5-14.5 [facility] CampusSzpyvczTYAKUKBYOU4184-05-41 10:15:00 Test Item Value Reference Range Interpretation Comments Eosinophils (test code = 1.8 See_Comment [A utomated message] The Eosinophils) system which ge nerated this result tra nsmitted reference range : <=4.0. The reference r niko was not used to int erpret this result as normal/abnormal . [facility] CampusGvomnhqTPUIRPRZHS6909-87-53 10:15:00 Test Item Value Reference Range Interpretation Comments Monocytes (test code = Monocytes) 6.3 2.0-12.0 [facility] CampusBogpfabBIUBTCZYFO6792-32-93 10:15:00 Test Item Value Reference Range Interpretation Comments Basophils (test code = 0.6 See_Comment [Aut omated message] The Basophils) system which ge nerated this result tra nsmitted reference range : <=1.0. The reference r niko was not used to int erpret this result as normal/abnormal . [facility] CampusZoalzgsGRWAQGIRRW0414-96-07 10:15:00 Test Item Value Reference Range Interpretation Comments Lymphocytes # (test code = Lymphocytes 1.7 1.0-5.5 #) [facility] CampusCdliptuYEUUSEQUYG6230-25-48 10:15:00 Test Item Value Reference Range Interpretation Comments Segs-Bands # (test code = Segs-Bands #) 6.4 1.5-8.1 [facility] CampusMiyiqzeGEEMGUXTOY4270-02-02 10:15:00 Test Item Value Reference Range Interpretation Comments Monocytes # (test code 0.6 See_Comment [Aut omated message] The = Monocytes #) system which generated this result tra nsmitted reference range : <=0.8. The reference r niko was not used to int erpret this result as normal/abnormal . [facility] CampusTbxplagZVOKNHGQCB4859-65-74 10:15:00 Test Item Value Reference Range Interpretation Comments Basophils # (test code 0.1 See_Comment [Aut omated message] The = Basophils #) system which generated this result tra nsmitted reference range : <=0.2. The reference r niko was not used to int erpret this result as normal/abnormal . [facility] CampusOkuyociRLSLHCHRBY8360-41-44 10:15:00 Test Item Value Reference Range Interpretation Comments Eosinophils # (test code 0.2 See_Comment [A utomated message] The = Eosinophils #) system whic h generated this result tra nsmitted reference range : <=0.5. The reference r niko was not used to int erpret this result as normal/abnormal . [facility] CampusNxaxyckXESGCBZKVB5959-86-32 10:15:00 Test Item Value Reference Range Interpretation Comments Microcyte (test code = 1+ *ABN*(05/16/17 Microcyte) 4:15 AM) [facility] CampusXkuhmhuCQCGWFCJAK4256-80-55 10:15:00 Test Item Value Reference Range Interpretation Comments Segs (test code = Segs) 72.3 45.0-75.0 [facility] CampusSeeliyzRNOAVZCPAT3951-79-32 10:15:00 Test Item Value Reference Range Interpretation Comments Lymphocytes (test code = Lymphocytes) 19.0 20.0-40.0 [facility]DlgfhvvTJQXKATKSI5239-48-55 10:15:00 Test Item Value Reference Range Interpretation Comments Anti-dnase B (test no gt See_Comment [Automat ed message] The code = Anti-dnase B) system which generated this result transmit vasyl reference range : <=120. The reference range was not used to interpr et this result as minnie l/abnormal. [facility] TempleNagyutaPCCLOEOKMG7543-15-62 10:15:00 Test Item Value Reference Range Interpretation Comments ASO (test code = ASO) no gt See_Comment [Auto mated message] The system which ge nerated this result transmit vasyl reference range : <=408. The reference range was not used to interpr et this result as minnie l/abnormal. [place] [id number] 10:15:00 Test Item Value Reference Range Interpretation Comments Vanco Tr TND (test code = Vanco Tr 0430 1 TND) [place] [id number] 10:15:00 Test Item Value Reference Range Interpretation Comments Vanco Tr (test code = Vanco Tr) 12.5 [facility] CampusHlothmeZLXOMLXNSU7294-66-30 04:12:00 Test Item Value Reference Range Interpretation Comments Lymphocytes # (test code = Lymphocytes 2.1 1.0-5.5 #) [facility] CampusOzpebfyGTZJCXWJBH2165-69-42 04:12:00 Test Item Value Reference Range Interpretation Comments Segs-Bands # (test code = Segs-Bands #) 7.0 1.5-8.1 [facility] CampusVreefgcPBDCCPESSR1654-56-27 04:12:00 Test Item Value Reference Range Interpretation Comments Basophils # (test code 0.1 See_Comment [Aut omated message] The = Basophils #) system which generated this result tra nsmitted reference range : <=0.2. The reference r niko was not used to int erpret this result as normal/abnormal . [facility] CampusBfiolxvYIBVZCKZRO5482-46-29 04:12:00 Test Item Value Reference Range Interpretation Comments Eosinophils # (test code 0.2 See_Comment [A utomated message] The = Eosinophils #) system whic h generated this result tra nsmitted reference range : <=0.5. The reference r niko was not used to int erpret this result as normal/abnormal . [facility] CampusQxknlhbPQGADYCIWE7506-21-92 04:12:00 Test Item Value Reference Range Interpretation Comments Monocytes # (test code 0.7 See_Comment [Aut omated message] The = Monocytes #) system which generated this result tra nsmitted reference range : <=0.8. The reference r niko was not used to int erpret this result as normal/abnormal . [facility] CampusJhvkadoULYIGZBELI7182-57-95 04:12:00 Test Item Value Reference Range Interpretation Comments Microcyte (test code = 1+ *ABN*(05/15/17 Microcyte) 10:12 PM) [facility] CampusWgyivpxJTADEDKJYO8560-98-65 04:12:00 Test Item Value Reference Range Interpretation Comments Segs (test code = Segs) 70.1 45.0-75.0 [facility] CampusKlfrmyxCEHKAEOSEA2843-15-00 04:12:00 Test Item Value Reference Range Interpretation Comments Basophils (test code = 0.6 See_Comment [Aut omated message] The Basophils) system which ge nerated this result tra nsmitted reference range : <=1.0. The reference r niko was not used to int erpret this result as normal/abnormal . [facility] CampusFnjztipUTIDYYCVKU5450-77-30 04:12:00 Test Item Value Reference Range Interpretation Comments Eosinophils (test code = 1.5 See_Comment [A utomated message] The Eosinophils) system which ge nerated this result tra nsmitted reference range : <=4.0. The reference r niko was not used to int erpret this result as normal/abnormal . [facility] CampusDhykkfaCTMHLTEXPX0030-44-09 04:12:00 Test Item Value Reference Range Interpretation Comments Monocytes (test code = Monocytes) 6.7 2.0-12.0 [facility] CampusWmijdunHDTSNTKTTK0395-06-05 04:12:00 Test Item Value Reference Range Interpretation Comments Lymphocytes (test code = Lymphocytes) 21.1 20.0-40.0 [facility] CampusSnqjoivBIBSRZGEJY1298-06-72 04:12:00 Test Item Value Reference Range Interpretation Comments MPV (test code = MPV) 7.0 7.4-10.4 [facility] CampusRaeldsxIDUTGZCEND3552-25-83 04:12:00 Test Item Value Reference Range Interpretation Comments MCH (test code = MCH) 25.4 pg 27.0-31.0 [facility] CampusIhkraeoCIGBJBVPXW2812-68-74 04:12:00 Test Item Value Reference Range Interpretation Comments MCV (test code = MCV) 77.3 80.0-94.0 [facility] CampusDlfhifbFXURUXMBOX5634-25-53 04:12:00 Test Item Value Reference Range Interpretation Comments Platelet (test code = Platelet) 320 133-450 [facility] CampusXhngsnhIBYCIGSSKG8732-17-30 04:12:00 Test Item Value Reference Range Interpretation Comments RDW (test code = RDW) 15.8 11.5-14.5 [facility] CampusZijkqztZAHHBVCUWD8243-49-15 04:12:00 Test Item Value Reference Range Interpretation Comments MCHC (test code = MCHC) 32.8 32.0-36.0 [facility] CampusFnwidohQMPOMAHSKG0996-46-00 04:12:00 Test Item Value Reference Range Interpretation Comments RBC (test code = RBC) 3.91 4.70-6.10 [facility] CampusVkfrgedVPEFECFDCO8555-86-20 04:12:00 Test Item Value Reference Range Interpretation Comments Hgb (test code = Hgb) 9.9 14.0-18.0 [facility] CampusVqgoazdKPCGEJTDWL6032-91-12 04:12:00 Test Item Value Reference Range Interpretation Comments WBC (test code = WBC) 10.1 3.7-10.4 [facility] CampusTajztcyJPBTAWIBNM8860-03-80 04:12:00 Test Item Value Reference Range Interpretation Comments Hct (test code = Hct) 30.2 42.0-54.0 [facility]2018-02-20 12:47:00 Test Item Value Reference Range Interpretation Comments eGFR (test code = eGFR) 66 [facility]2018-02-20 12:47:00 Test Item Value Reference Range Interpretation Comments POC BUN (test code = POC BUN) 12 7-22 [facility]2018-02-20 12:47:00 Test Item Value Reference Range Interpretation Comments POC Chloride (test code = POC Chloride) 101 95-109 [facility]2018-02-20 12:47:00 Test Item Value Reference Range Interpretation Comments POC Creatinine (test code = POC 1.1 0.5-1.4 Creatinine) [facility]2018-02-20 12:47:00 Test Item Value Reference Range Interpretation Comments POC Hematocrit (test code = POC 50.0 42.0-54.0 Hematocrit) [facility]2018-02-20 12:47:00 Test Item Value Reference Range Interpretation Comments POC Carbon Dioxide (test code = POC 26 24-32 Carbon Dioxide) [facility]2018-02-20 12:47:00 Test Item Value Reference Range Interpretation Comments POC Glucose (test code = POC Glucose) 156 70-99 [facility]2018-02-20 12:47:00 Test Item Value Reference Range Interpretation Comments POC Hemoglobin (test code = POC 17.0 14.0-18.0 Hemoglobin) [facility]2018-02-20 12:47:00 Test Item Value Reference Range Interpretation Comments POC Ion Ca (test code = POC Ion Ca) 1.20 1.05-1.25 [facility] [id number] 12:47:00 Test Item Value Reference Range Interpretation Comments POC AGAP (test code = POC AGAP) 17.0 10.0-20.0 [facility]2018-02-20 12:47:00 Test Item Value Reference Range Interpretation Comments POC Potassium (test code = POC 3.9 3.5-5.1 Potassium) [facility] [id number] 12:47:00 Test Item Value Reference Range Interpretation Comments POC Sodium (test code = POC Sodium) 140 135-145 [facility]DwfjdiaLMZQMDEDLL5275-00-75 12:41:00 Test Item Value Reference Range Interpretation Comments Sed Rate (test code = 36 See_Comment [Auto mated message] The Sed Rate) system which ge nerated this result transmit vasyl reference range : <=15. The reference range was not used to interpr et this result as minnie l/abnormal. [facility]wayIyvqmpuLHHZUAPYZJ8847-41-44 12:41:00 Test Item Value Reference Range Interpretation Comments C-REACTIVE PROTEIN (test code = 62.7 C-REACTIVE PROTEIN) [facility][U] XRAY SHOULDER MIN 2 VWS RIGHT [id number] 08:47:00Images acquired, not reported on this accession number.[facility] 2017-05-06 18:09:00 Test Item Value Reference Range Interpretation Comments eGFR (test code = eGFR) 85 [facility]2018-02-11 18:09:00 Test Item Value Reference Range Interpretation Comments B/C Ratio (test code = B/C Ratio) 10 1 6-25 [facility]2018-02-11 18:09:00 Test Item Value Reference Range Interpretation Comments AGAP (test code = AGAP) 11.7 10.0-20.0 [facility]2018-02-11 18:09:00 Test Item Value Reference Range Interpretation Comments AST (test code = AST) 15 See_Comment [Auto mated message] The system which ge nerated this result transmit vasyl reference range : <=37. The reference range was not used to interpr et this result as minnie l/abnormal. [facility]2018-02-11 18:09:00 Test Item Value Reference Range Interpretation Comments Albumin Lvl (test code = Albumin Lvl) 2.7 3.5-5.0 [facility]2018-02-11 18:09:00 Test Item Value Reference Range Interpretation Comments ALT (test code = ALT) 22 See_Comment [Auto mated message] The system which ge nerated this result transmit vasyl reference range : <=65. The reference range was not used to interpr et this result as minnie l/abnormal. [facility]2018-02-11 18:09:00 Test Item Value Reference Range Interpretation Comments Creatinine Lvl (test code = Creatinine 0.86 0.50-1.40 Lvl) [facility]2018-02-11 18:09:00 Test Item Value Reference Range Interpretation Comments BUN (test code = BUN) 9 7-22 [facility]2018-02-11 18:09:00 Test Item Value Reference Range Interpretation Comments Glucose Lvl (test code = Glucose Lvl) 184 70-99 [facility]2018-02-11 18:09:00 Test Item Value Reference Range Interpretation Comments CO2 (test code = CO2) 28 24-32 [facility]2018-02-11 18:09:00 Test Item Value Reference Range Interpretation Comments Sodium Lvl (test code = Sodium Lvl) 142 135-145 [facility]2018-02-11 18:09:00 Test Item Value Reference Range Interpretation Comments Potassium Lvl (test code = Potassium 3.7 3.5-5.1 Lvl) [facility]2018-02-11 18:09:00 Test Item Value Reference Range Interpretation Comments Calcium Lvl (test code = Calcium Lvl) 7.9 8.5-10.5 [facility]2018-02-11 18:09:00 Test Item Value Reference Range Interpretation Comments Chloride Lvl (test code = Chloride Lvl) 106 95-109 [facility]2018-02-11 18:09:00 Test Item Value Reference Range Interpretation Comments A/G Ratio (test code = A/G Ratio) 0.8 1 0.7-1.6 [facility]2018-02-11 18:09:00 Test Item Value Reference Range Interpretation Comments Globulin (test code = Globulin) 3.3 2.7-4.2 [facility]2018-02-11 18:09:00 Test Item Value Reference Range Interpretation Comments Total Protein (test code = Total 6.0 6.4-8.4 Protein) [facility]2018-02-11 18:09:00 Test Item Value Reference Range Interpretation Comments Alk Phos (test code = Alk Phos) 103 39-136 [facility]2018-02-11 18:09:00 Test Item Value Reference Range Interpretation Comments Bili Total (test code = Bili Total) 0.2 0.2-1.3 [facility] CampusRdgzaajWRMLEALSXB0328-78-77 18:09:00 Test Item Value Reference Range Interpretation Comments Monocytes (test code = Monocytes) 6.7 2.0-12.0 [facility] CampusNdhimfrALFQLONFRL8140-24-01 18:09:00 Test Item Value Reference Range Interpretation Comments Eosinophils (test code = 1.6 See_Comment [A utomated message] The Eosinophils) system which ge nerated this result tra nsmitted reference range : <=4.0. The reference r niko was not used to int erpret this result as normal/abnormal . [facility] CampusQwibovrXDSDRDTBCW1218-24-15 18:09:00 Test Item Value Reference Range Interpretation Comments Lymphocytes (test code = Lymphocytes) 17.4 20.0-40.0 [facility] CampusTvifovqGZGFGVQTTR5666-71-58 18:09:00 Test Item Value Reference Range Interpretation Comments Segs-Bands # (test code = Segs-Bands #) 6.9 1.5-8.1 [facility] CampusKerwhgrJCQGLFHOFX3409-32-61 18:09:00 Test Item Value Reference Range Interpretation Comments Basophils (test code = 1.2 See_Comment [Aut omated message] The Basophils) system which ge nerated this result tra nsmitted reference range : <=1.0. The reference r niko was not used to int erpret this result as normal/abnormal . [facility] CampusLwywjeoRNFHLQVFJK1945-80-63 18:09:00 Test Item Value Reference Range Interpretation Comments Monocytes # (test code 0.6 See_Comment [Aut omated message] The = Monocytes #) system which generated this result tra nsmitted reference range : <=0.8. The reference r niko was not used to int erpret this result as normal/abnormal . [facility] CampusGqklkrhKNCTFKRQTL1205-26-21 18:09:00 Test Item Value Reference Range Interpretation Comments Lymphocytes # (test code = Lymphocytes 1.6 1.0-5.5 #) [facility] CampusMbbydmgHLYZCGEECR2141-92-93 18:09:00 Test Item Value Reference Range Interpretation Comments Eosinophils # (test code 0.2 See_Comment [A utomated message] The = Eosinophils #) system whic h generated this result tra nsmitted reference range : <=0.5. The reference r niko was not used to int erpret this result as normal/abnormal . [facility] CampusRhhohpjGKXRWVZZYA4901-43-71 18:09:00 Test Item Value Reference Range Interpretation Comments Basophils # (test code 0.1 See_Comment [Aut omated message] The = Basophils #) system which generated this result tra nsmitted reference range : <=0.2. The reference r niko was not used to int erpret this result as normal/abnormal . [facility] CampusYruroywFOCCDCOIGN5489-61-54 18:09:00 Test Item Value Reference Range Interpretation Comments Microcyte (test code = 1+ *ABN*(05/06/17 Microcyte) 12:09 PM) [facility] CampusYvtmoweKIKNHUXDPC3480-71-27 18:09:00 Test Item Value Reference Range Interpretation Comments Segs (test code = Segs) 73.1 45.0-75.0 [facility] CampusRlamywaDDOGLUZPRC1553-69-35 18:09:00 Test Item Value Reference Range Interpretation Comments WBC (test code = WBC) 9.5 3.7-10.4 [facility] CampusEoambwaFGWBUTUNTS0610-23-19 18:09:00 Test Item Value Reference Range Interpretation Comments Hct (test code = Hct) 33.2 42.0-54.0 [facility] CampusWienogzSCVJGGQKCY1723-56-82 18:09:00 Test Item Value Reference Range Interpretation Comments RBC (test code = RBC) 4.26 4.70-6.10 [facility] CampusShlbbcbGPXAIABAFP8132-47-11 18:09:00 Test Item Value Reference Range Interpretation Comments Hgb (test code = Hgb) 10.9 14.0-18.0 [facility] [facility]IBXY9483[facility]:09:00 Test Item Value Reference Range Interpretation Comments MCH (test code = MCH) 25.6 pg 27.0-31.0 [facility] CampusJmoontjOKYMCLTYFW9505-22-54 18:09:00 Test Item Value Reference Range Interpretation Comments MCV (test code = MCV) 77.7 80.0-94.0 [facility] CampusEawfxypFBECQJDMYU2448-57-87 18:09:00 Test Item Value Reference Range Interpretation Comments Platelet (test code = Platelet) 272 133-450 [facility] CampusDgldepkZIOJQWGZHH5891-44-20 18:09:00 Test Item Value Reference Range Interpretation Comments MPV (test code = MPV) 6.7 7.4-10.4 [facility] CampusJjquiuxYVBWKAAVNB7690-30-13 18:09:00 Test Item Value Reference Range Interpretation Comments MCHC (test code = MCHC) 33.0 32.0-36.0 [facility] CampusRpgtfrqGDURBHLVHL1888-27-30 18:09:00 Test Item Value Reference Range Interpretation Comments RDW (test code = RDW) 15.8 11.5-14.5 [facility] TempleJtuyeiuUNBGKRWBCN9747-92-64 18:09:00 Test Item Value Reference Range Interpretation Comments C-REACTIVE PROTEIN (test code = 40.6 C-REACTIVE PROTEIN) [facility]2018-02-09 11:26:00 Test Item Value Reference Range Interpretation Comments Glucose Lvl (test code = Glucose Lvl) 146 70-99 [facility]2018-02-09 11:26:00 Test Item Value Reference Range Interpretation Comments Sodium Lvl (test code = Sodium Lvl) 142 135-145 [facility]2018-02-09 11:26:00 Test Item Value Reference Range Interpretation Comments Chloride Lvl (test code = Chloride Lvl) 104 95-109 [facility]2018-02-09 11:26:00 Test Item Value Reference Range Interpretation Comments Potassium Lvl (test code = Potassium 4.1 3.5-5.1 Lvl) [facility]2018-02-09 11:26:00 Test Item Value Reference Range Interpretation Comments BUN (test code = BUN) 12 7-22 [facility]2018-02-09 11:26:00 Test Item Value Reference Range Interpretation Comments CO2 (test code = CO2) 29 24-32 [facility]2018-02-09 11:26:00 Test Item Value Reference Range Interpretation Comments Calcium Lvl (test code = Calcium Lvl) 8.5 8.5-10.5 [facility]2018-02-09 11:26:00 Test Item Value Reference Range Interpretation Comments eGFR (test code = eGFR) 87 [facility]2018-02-09 11:26:00 Test Item Value Reference Range Interpretation Comments Creatinine Lvl (test code = Creatinine 0.81 0.50-1.40 Lvl) [facility]2018-02-09 11:26:00 Test Item Value Reference Range Interpretation Comments AGAP (test code = AGAP) 13.1 10.0-20.0 [facility] CampusDpzquxwYNMIJOMOBZ0507-77-24 11:26:00 Test Item Value Reference Range Interpretation Comments Basophils (test code = 0.7 See_Comment [Aut omated message] The Basophils) system which ge nerated this result tra nsmitted reference range : <=1.0. The reference r niko was not used to int erpret this result as normal/abnormal . [facility] CampusRjxcoajFPNASKTXJS9630-07-08 11:26:00 Test Item Value Reference Range Interpretation Comments Segs-Bands # (test code = Segs-Bands #) 5.7 1.5-8.1 [facility] CampusMacdtanOSISPKXXEL7820-61-18 11:26:00 Test Item Value Reference Range Interpretation Comments Eosinophils # (test code 0.1 See_Comment [A utomated message] The = Eosinophils #) system whic h generated this result tra nsmitted reference range : <=0.5. The reference r niko was not used to int erpret this result as normal/abnormal . [facility] CampusKautiixPJNWGIWAGV8199-49-59 11:26:00 Test Item Value Reference Range Interpretation Comments Lymphocytes # (test code = Lymphocytes 1.7 1.0-5.5 #) [facility] CampusXpdgpqqTLYMTCAOGA9715-39-23 11:26:00 Test Item Value Reference Range Interpretation Comments Basophils # (test code 0.1 See_Comment [Aut omated message] The = Basophils #) system which generated this result tra nsmitted reference range : <=0.2. The reference r niko was not used to int erpret this result as normal/abnormal . [facility] CampusPcewpazWFFZCCLYLG2285-54-95 11:26:00 Test Item Value Reference Range Interpretation Comments Microcyte (test code = 1+ *ABN*(05/04/17 5:26 Microcyte) AM) [place] [id number] 11:26:00 Test Item Value Reference Range Interpretation Comments Monocytes (test code = Monocytes) 7.5 2.0-12.0 [facility] CampusQsxoniuJDQOOHMPOD7207-10-48 11:26:00 Test Item Value Reference Range Interpretation Comments Eosinophils (test code = 1.0 See_Comment [A utomated message] The Eosinophils) system which ge nerated this result tra nsmitted reference range : <=4.0. The reference r niko was not used to int erpret this result as normal/abnormal . [facility] CampusZswffctYBMAJZSSTX4179-92-66 11:26:00 Test Item Value Reference Range Interpretation Comments Monocytes # (test code 0.6 See_Comment [Aut omated message] The = Monocytes #) system which generated this result tra nsmitted reference range : <=0.8. The reference r niko was not used to int erpret this result as normal/abnormal . [facility] CampusLhmcdbuNUHAYTKNXX0651-42-86 11:26:00 Test Item Value Reference Range Interpretation Comments Lymphocytes (test code = Lymphocytes) 21.0 20.0-40.0 [facility] CampusVtsnrswUYSNUUGCCO1602-77-05 11:26:00 Test Item Value Reference Range Interpretation Comments Segs (test code = Segs) 69.8 45.0-75.0 [facility] CampusBjfkjthVVYCIDRCNY3677-96-72 11:26:00 Test Item Value Reference Range Interpretation Comments RBC (test code = RBC) 4.15 4.70-6.10 [facility] CampusBylizmwBEAJEZDWFZ9705-29-08 11:26:00 Test Item Value Reference Range Interpretation Comments WBC (test code = WBC) 8.1 3.7-10.4 [facility] CampusShkdhvrNXHTRKILWX7757-10-81 11:26:00 Test Item Value Reference Range Interpretation Comments Hct (test code = Hct) 32.3 42.0-54.0 [facility] CampusSbytujgIFPOISJBSS2849-52-88 11:26:00 Test Item Value Reference Range Interpretation Comments Hgb (test code = Hgb) 10.6 14.0-18.0 [facility] CampusZqryclmTTGNZQEFTK0920-78-14 11:26:00 Test Item Value Reference Range Interpretation Comments MCV (test code = MCV) 77.7 80.0-94.0 [facility] CampusRvxbdjrIUFJOZNMBR2339-21-09 11:26:00 Test Item Value Reference Range Interpretation Comments RDW (test code = RDW) 15.9 11.5-14.5 [facility] CampusAllzbvvVRJNAGXQMU2996-52-41 11:26:00 Test Item Value Reference Range Interpretation Comments Platelet (test code = Platelet) 296 133-450 [facility] CampusExzpdwbRCBYSPFQFK0953-24-71 11:26:00 Test Item Value Reference Range Interpretation Comments MCH (test code = MCH) 25.5 pg 27.0-31.0 [facility] CampusFebclnxLIXYWDWTSZ0190-49-73 11:26:00 Test Item Value Reference Range Interpretation Comments MCHC (test code = MCHC) 32.8 32.0-36.0 [facility] CampusYhxibrgZOTYKJRQKN6973-52-25 11:26:00 Test Item Value Reference Range Interpretation Comments MPV (test code = MPV) 6.7 7.4-10.4 [place] [id number] 01:39:00 Test Item Value Reference Range Interpretation Comments Vanco Tr TND (test code = Vanco Tr 2000 1 TND) [place] [id number] 01:39:00 Test Item Value Reference Range Interpretation Comments Vanco Tr (test code = Vanco Tr) 10.5 [facility]2018-02-07 11:54:00 Test Item Value Reference Range Interpretation Comments eGFR (test code = eGFR) 78 [facility]2018-02-07 11:54:00 Test Item Value Reference Range Interpretation Comments Creatinine Lvl (test code = Creatinine 0.96 0.50-1.40 Lvl) [facility]2018-02-07 11:54:00 Test Item Value Reference Range Interpretation Comments Potassium Lvl (test code = Potassium 4.9 3.5-5.1 Lvl) [facility]2018-02-07 11:54:00 Test Item Value Reference Range Interpretation Comments Chloride Lvl (test code = Chloride Lvl) 104 95-109 [facility]2018-02-07 11:54:00 Test Item Value Reference Range Interpretation Comments CO2 (test code = CO2) 29 24-32 [facility]2018-02-07 11:54:00 Test Item Value Reference Range Interpretation Comments Calcium Lvl (test code = Calcium Lvl) 8.6 8.5-10.5 [facility]2018-02-07 11:54:00 Test Item Value Reference Range Interpretation Comments Sodium Lvl (test code = Sodium Lvl) 142 135-145 [facility]2018-02-07 11:54:00 Test Item Value Reference Range Interpretation Comments BUN (test code = BUN) 17 7-22 [facility]2018-02-07 11:54:00 Test Item Value Reference Range Interpretation Comments Glucose Lvl (test code = Glucose Lvl) 152 70-99 [facility]2018-02-07 11:54:00 Test Item Value Reference Range Interpretation Comments AGAP (test code = AGAP) 13.9 10.0-20.0 [facility] CampusGlhweekYWFOZMQFYX5802-66-43 11:54:00 Test Item Value Reference Range Interpretation Comments Platelet (test code = Platelet) 329 133-450 [facility] CampusDynlxhfOLRGZWXCCU0154-64-47 11:54:00 Test Item Value Reference Range Interpretation Comments MPV (test code = MPV) 7.0 7.4-10.4 [facility] CampusLenwbgiKVHOGJEBLN9903-31-44 11:54:00 Test Item Value Reference Range Interpretation Comments RDW (test code = RDW) 15.7 11.5-14.5 [facility] CampusRckxesdJXQBMXRKCY6994-68-39 11:54:00 Test Item Value Reference Range Interpretation Comments MCH (test code = MCH) 25.4 pg 27.0-31.0 [facility] CampusImzraszUXTIHPBYSK7944-98-73 11:54:00 Test Item Value Reference Range Interpretation Comments MCHC (test code = MCHC) 32.0 32.0-36.0 [facility] CampusJmespxiQAYFWNYJZQ5726-29-12 11:54:00 Test Item Value Reference Range Interpretation Comments Hct (test code = Hct) 33.7 42.0-54.0 [facility] CampusZkkkjnaEAVRIRXKFY3195-17-23 11:54:00 Test Item Value Reference Range Interpretation Comments Hgb (test code = Hgb) 10.8 14.0-18.0 [facility] CampusAuqizewQDXVYMHTTR1805-70-17 11:54:00 Test Item Value Reference Range Interpretation Comments RBC (test code = RBC) 4.25 4.70-6.10 [facility] CampusRqntfjoXJRNTDNTHE4254-60-32 11:54:00 Test Item Value Reference Range Interpretation Comments MCV (test code = MCV) 79.2 80.0-94.0 [facility] CampusFwsjrhzPYHUTDUFUI2757-07-43 11:54:00 Test Item Value Reference Range Interpretation Comments WBC (test code = WBC) 12.8 3.7-10.4 [facility] CampusSxqlelbYVMFOJTGMT6365-49-11 11:54:00 Test Item Value Reference Range Interpretation Comments Monocytes (test code = Monocytes) 6.0 2.0-12.0 [facility] CampusAqdaiuqSLWTZSJGDP6249-97-58 11:54:00 Test Item Value Reference Range Interpretation Comments Lymphocytes (test code = Lymphocytes) 9.9 20.0-40.0 [facility] CampusWgmtqyrLVYMJYTYCU8016-16-68 11:54:00 Test Item Value Reference Range Interpretation Comments Basophils (test code = 0.3 See_Comment [Aut omated message] The Basophils) system which ge nerated this result tra nsmitted reference range : <=1.0. The reference r niko was not used to int erpret this result as normal/abnormal . [facility] CampusCztwotdOYIZKIZVQT3389-52-10 11:54:00 Test Item Value Reference Range Interpretation Comments Segs-Bands # (test code = Segs-Bands #) 10.7 1.5-8.1 [facility] CampusTyvlmfmELDGRZKHPW8342-47-08 11:54:00 Test Item Value Reference Range Interpretation Comments Lymphocytes # (test code = Lymphocytes 1.3 1.0-5.5 #) [facility] CampusKzxhjnkYSWMEETQIZ9923-26-58 11:54:00 Test Item Value Reference Range Interpretation Comments Monocytes # (test code 0.8 See_Comment [Aut omated message] The = Monocytes #) system which generated this result tra nsmitted reference range : <=0.8. The reference r niko was not used to int erpret this result as normal/abnormal . [facility] CampusNcuurgnUPVCKCLMYE5501-17-99 11:54:00 Test Item Value Reference Range Interpretation Comments Segs (test code = Segs) 83.8 45.0-75.0 [facility] TempleVkpeooaMMSDRNVVKZ7288-99-06 16:49:00 Test Item Value Reference Range Interpretation Comments C-REACTIVE PROTEIN (test code = 104.0 C-REACTIVE PROTEIN) [facility] CampusQnvmwshCAKGIQBXUO9162-12-55 14:59:00 Test Item Value Reference Range Interpretation Comments Sed Rate (test code = 40 See_Comment [Auto mated message] The Sed Rate) system which ge nerated this result transmit vasyl reference range : <=15. The reference range was not used to interpr et this result as minnie l/abnormal. [facility] Shoulder series [id number] 10:45:00EXAMINATION: Right shoulder seriesHISTORY: Right rotator cuff arthropathyFINDINGS: 2 to 3 views of the right shoulder are performed and compared to04/13/2017.There is a reverse bqkz-oln-cciefc right total shoulder arthroplasty projectingin unchanged near- anatomic alignment without periprosthetic fracture orosteolysis. There has been interval placement of a surgical drain. There is noevidence of scapular notching. 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 Mild right basilar atelectasis is noted.IMPRESSION:1. Reverse buky-goi-lrdrgf right total shoulder arthroplasty in unchangednear-anatomic alignment with interval placement of a surgical drain.--Read by: Raj Cope MDDictated Da te/time: 05/01/17 12:12Electronically Signed by: Raj Cope MD 05/01/1811:14FINAL REPORTUT Physicians[U] XRAY SHOULDER MIN 2 VWS RIGHT [id number] 2017-04-30 09:57:00Images acquired, not reported on this accession number.[facility] [id number] 18:29:00 Test Item Value Reference Range Interpretation Comments eGFR (test code = eGFR) 84 [facility] [id number] 18:29:00 Test Item Value Reference Range Interpretation Comments POC Potassium (test code = POC 4.4 3.5-5.1 Potassium) [facility] [id number] 18:29:00 Test Item Value Reference Range Interpretation Comments POC Sodium (test code = POC Sodium) 139 135-145 [facility] NDFWF7013-05-12 18:29:00 Test Item Value Reference Range Interpretation Comments POC Glucose (test code = POC Glucose) 108 70-99 [facility] [id number] 18:29:00 Test Item Value Reference Range Interpretation Comments POC AGAP (test code = POC AGAP) 16.0 10.0-20.0 [facility]2018-01-19 18:29:00 Test Item Value Reference Range Interpretation Comments POC Hematocrit (test code = POC 44.0 42.0-54.0 Hematocrit) [facility]2018-01-19 18:29:00 Test Item Value Reference Range Interpretation Comments POC Hemoglobin (test code = POC 15.0 14.0-18.0 Hemoglobin) [facility]2018-01-19 18:29:00 Test Item Value Reference Range Interpretation Comments POC Ion Ca (test code = POC Ion Ca) 1.20 1.05-1.25 [facility]2018-01-19 18:29:00 Test Item Value Reference Range Interpretation Comments POC Chloride (test code = POC Chloride) 100 95-109 [facility]2018-01-19 18:29:00 Test Item Value Reference Range Interpretation Comments POC Creatinine (test code = POC 0.9 0.5-1.4 Creatinine) [facility]2018-01-19 18:29:00 Test Item Value Reference Range Interpretation Comments POC BUN (test code = POC BUN) 16 7-22 [facility]2018-01-19 18:29:00 Test Item Value Reference Range Interpretation Comments POC Carbon Dioxide (test code = POC 29 24-32 Carbon Dioxide) [facility] Shoulder series [id number] 15:58:00HISTORY: - AP and Grashey in PACUTECHNIQUE: Frontal and Grashey views of the right shoulder.COMPARISON: Study from earlier today.FINDINGS: 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 No evidence ofacute fracture or dislocation. Linear atelectasis is noted within the rightlung.IMPRESSION: Stable surgical change as above.[id number]--Pjmc by: Michelle Amaya MDDictated Date/time: 04/13/17 16:55Electronically Signed by: Michelle Amaya MD 04/13/1815:57FINAL REPORTUT Physicians[U] XRAY SHOULDER MIN 2 VWS RIGHT [id number] 09:38:00 Images acquired, not reported on this accession number.[facility][U] XRAY SHOULDER MIN 2 VWS RIGHT [id number] 10:48:00Images acquired, not reported on this accession number.[facility][U] XRAY SHOULDER MIN 2 VWS RIGHT [id number] 2017-02-05 08:17:00Images acquired, not reported on this accession number.[place] [id number] 10:03:00 Test Item Value Reference Range Interpretation Comments AGAP (test code = AGAP) 12.4 10.0-20.0 [facility]IbingjoUHLLDRPOWGRT5980-48-14 10:03:00 Test Item Value Reference Range Interpretation Comments eGFR (test code = eGFR) 67 [facility] HospitalMeroctyWYRXDSEEFQGS7183-03-39 10:03:00 Test Item Value Reference Range Interpretation Comments Glucose Lvl (test code = Glucose Lvl) 123 70-99 [facility] HospitalUpsfmacQQKWFSGQZLKT0448-46-37 10:03:00 Test Item Value Reference Range Interpretation Comments Creatinine Lvl (test code = Creatinine 1.08 0.50-1.40 Lvl) [facility] HospitalJkhftpoPYXMRDFJRYHE8380-82-92 10:03:00 Test Item Value Reference Range Interpretation Comments BUN (test code = BUN) 15 7-22 [facility] HospitalIwgldzpWIPRBRZVIBDD7224-78-71 10:03:00 Test Item Value Reference Range Interpretation Comments Sodium Lvl (test code = Sodium Lvl) 141 135-145 [facility] HospitalIxyhmqcJYLNPZMOQPGT8372-92-18 10:03:00 Test Item Value Reference Range Interpretation Comments Calcium Lvl (test code = Calcium Lvl) 8.2 8.5-10.5 [facility] HospitalYhvuzmpBRTRPRTRHZFX4014-34-33 10:03:00 Test Item Value Reference Range Interpretation Comments Chloride Lvl (test code = Chloride Lvl) 106 95-109 [facility] HospitalJzvslytUNCSUWIUMXAG4639-02-27 10:03:00 Test Item Value Reference Range Interpretation Comments CO2 (test code = CO2) 27 24-32 [facility] HospitalYlxijotBIUVOTWSEWNU3496-01-20 10:03:00 Test Item Value Reference Range Interpretation Comments Potassium Lvl (test code = Potassium 4.4 3.5-5.1 Lvl) [facility]KukxbznYLPXMYWTVA7735-[facility]-72 10:03:00 Test Item Value Reference Range Interpretation Comments WBC (test code = WBC) 10.4 3.7-10.4 [facility] CampusDugggddHNEQNOEENZ5787-23-38 10:03:00 Test Item Value Reference Range Interpretation Comments MCV (test code = MCV) 81.0 80.0-94.0 [facility] CampusTavdddhUXDTRATMSN2211-93-84 10:03:00 Test Item Value Reference Range Interpretation Comments Hct (test code = Hct) 34.1 42.0-54.0 [facility] CampusGewnuezKWRFKMCWVN2598-31-79 10:03:00 Test Item Value Reference Range Interpretation Comments MCH (test code = MCH) 26.9 pg 27.0-31.0 [facility] CampusDecntcxBLAOAGNGGZ9486-90-00 10:03:00 Test Item Value Reference Range Interpretation Comments Hgb (test code = Hgb) 11.3 14.0-18.0 [facility] CampusSbbfbmeONABJYGAPV4531-99-29 10:03:00 Test Item Value Reference Range Interpretation Comments RBC (test code = RBC) 4.20 4.70-6.10 [facility] CampusXuddhutRUKFHSRJJL6479-95-57 10:03:00 Test Item Value Reference Range Interpretation Comments MPV (test code = MPV) 6.7 7.4-10.4 [facility] CampusMqnbshlQDXHMAPAMO2836-89-29 10:03:00 Test Item Value Reference Range Interpretation Comments Platelet (test code = Platelet) 185 133-450 [facility] CampusUjjhjkeCYXNXERMPM9821-27-20 10:03:00 Test Item Value Reference Range Interpretation Comments RDW (test code = RDW) 16.1 11.5-14.5 [facility] CampusMuvcwkuIAJSLGTOAF8475-75-89 10:03:00 Test Item Value Reference Range Interpretation Comments MCHC (test code = MCHC) 33.2 32.0-36.0 [facility] CampusAborannLDJBRUWXPE1020-84-92 10:03:00 Test Item Value Reference Range Interpretation Comments Eosinophils (test code = 1.0 See_Comment [A utomated message] The Eosinophils) system which ge nerated this result tra nsmitted reference range : <=4.0. The reference r niko was not used to int erpret this result as normal/abnormal . [facility] CampusLtpifyxTIKTJIIVRB2481-07-99 10:03:00 Test Item Value Reference Range Interpretation Comments Segs-Bands # (test code = Segs-Bands #) 7.4 1.5-8.1 [facility] CampusOwcxzccVSKAATSAAT9671-77-76 10:03:00 Test Item Value Reference Range Interpretation Comments Basophils (test code = 1.0 See_Comment [Aut omated message] The Basophils) system which ge nerated this result tra nsmitted reference range : <=1.0. The reference r niko was not used to int erpret this result as normal/abnormal . [facility] CampusFbqlolqIZNCEBCEAW6835-77-37 10:03:00 Test Item Value Reference Range Interpretation Comments Lymphocytes (test code = Lymphocytes) 19.6 20.0-40.0 [facility] CampusQjcxqinSYZVWAWKTT6412-09-97 10:03:00 Test Item Value Reference Range Interpretation Comments Segs (test code = Segs) 71.7 45.0-75.0 [facility] CampusAivbxkwMGNIHRANHO9993-08-91 10:03:00 Test Item Value Reference Range Interpretation Comments Monocytes (test code = Monocytes) 6.7 2.0-12.0 [facility] CampusTdokcrhTEHYQFVDUA3451-26-34 10:03:00 Test Item Value Reference Range Interpretation Comments Monocytes # (test code 0.7 See_Comment [Aut omated message] The = Monocytes #) system which generated this result tra nsmitted reference range : <=0.8. The reference r niko was not used to int erpret this result as normal/abnormal . [facility] CampusPpsqkmaKRQZZPSNNJ5593-10-31 10:03:00 Test Item Value Reference Range Interpretation Comments Lymphocytes # (test code = Lymphocytes 2.0 1.0-5.5 #) [facility] CampusAestllnNVQYCBRKHA9418-88-27 10:03:00 Test Item Value Reference Range Interpretation Comments Eosinophils # (test code 0.1 See_Comment [A utomated message] The = Eosinophils #) system whic h generated this result tra nsmitted reference range : <=0.5. The reference r niko was not used to int erpret this result as normal/abnormal . [facility] CampusZzorrchQITOPYXHSS0338-97-07 10:03:00 Test Item Value Reference Range Interpretation Comments Basophils # (test code 0.1 See_Comment [Aut omated message] The = Basophils #) system which generated this result tra nsmitted reference range : <=0.2. The reference r niko was not used to int erpret this result as normal/abnormal . [facility] ParkwayBACTERIAL - [id number] 16:36:00 Test Item Value Reference Range Interpretation Comments MRSA by PCR (test Negative (01/22/17 11:36 code = MRSA by PCR) AM) [facility]2017-10-30 16:36:00 Test Item Value Reference Range Interpretation Comments Albumin Lvl (test code = Albumin Lvl) 3.9 3.5-5.0 [facility]2017-10-30 16:36:00 Test Item Value Reference Range Interpretation Comments Glucose Lvl (test code = Glucose Lvl) 126 70-99 [facility]2017-10-30 16:36:00 Test Item Value Reference Range Interpretation Comments eGFR (test code = eGFR) 70 [facility]2017-10-30 16:36:00 Test Item Value Reference Range Interpretation Comments Creatinine Lvl (test code = Creatinine 1.04 0.50-1.40 Lvl) [facility] [facility] 16:36:00 Test Item Value Reference Range Interpretation Comments BUN (test code = BUN) 16 7-22 [facility]HarpspnZSEHILODDUAJ1288-01-92 16:36:00 Test Item Value Reference Range Interpretation Comments Sodium Lvl (test code = Sodium Lvl) 140 135-145 [facility] HospitalXrouajbKDDGGLDGMKTT2078-61-04 16:36:00 Test Item Value Reference Range Interpretation Comments Potassium Lvl (test code = Potassium 3.6 3.5-5.1 Lvl) [facility] CampusAultyaaLBJRXQWIFT4771-53-07 16:36:00 Test Item Value Reference Range Interpretation Comments MPV (test code = MPV) 7.1 7.4-10.4 [facility] CampusDyghsbkNOLHCAXSAJ9608-44-79 16:36:00 Test Item Value Reference Range Interpretation Comments Platelet (test code = Platelet) 224 133-450 [facility] CampusUyscwsnFQTXNYEBJQ8453-86-06 16:36:00 Test Item Value Reference Range Interpretation Comments MCV (test code = MCV) 81.2 80.0-94.0 [facility] CampusNasuwgcXYAXQBHYQA0011-77-17 16:36:00 Test Item Value Reference Range Interpretation Comments RDW (test code = RDW) 16.0 11.5-14.5 [facility] CampusTplcnfkUDMHEMXZKR9905-39-35 16:36:00 Test Item Value Reference Range Interpretation Comments MCHC (test code = MCHC) 32.7 32.0-36.0 [facility] CampusKklpjjcOOVQPXZRIB0242-88-82 16:36:00 Test Item Value Reference Range Interpretation Comments MCH (test code = MCH) 26.6 pg 27.0-31.0 [facility]AihcoqtOECBMORAZD2648-78-91 16:36:00 Test Item Value Reference Range Interpretation Comments Hct (test code = Hct) 41.9 42.0-54.0 [facility] CampusBmchhcaJMIYPTSRUL1134-95-19 16:36:00 Test Item Value Reference Range Interpretation Comments Hgb (test code = Hgb) 13.7 14.0-18.0 [facility] CampusIcbpotyMECJHTRJQI0933-89-02 16:36:00 Test Item Value Reference Range Interpretation Comments RBC (test code = RBC) 5.15 4.70-6.10 [facility] CampusCkmuesjTNPXQPUVZC5463-97-37 16:36:00 Test Item Value Reference Range Interpretation Comments WBC (test code = WBC) 10.7 3.7-10.4 [facility] Cnjaknvyu3030-03-77 19:00:00 Test Item Value Reference Range Interpretation Comments Completed (test code = Completed) [facility] EHMVQ7796-56-47 10:37:00 Test Item Value Reference Range Interpretation Comments A/G Ratio (test code = A/G Ratio) 0.7 0.7-1.6 [facility]annCHE[facility] HESKG2635-54-28 10:37:00 Test Item Value Reference Range Interpretation Comments Globulin (test code = Globulin) 3.5 2.7-4.2 [facility]annCHE[facility] ZTDSH5850-19-90 10:37:00 Test Item Value Reference Range Interpretation Comments B/C Ratio (test code = B/C Ratio) 5 6-25 [facility]annCHE[facility] IMFPL1960-83-36 10:37:00 Test Item Value Reference Range Interpretation Comments AGAP (test code = AGAP) 14.7 10.0-20.0 [facility]ann[facility] [id number] 10:37:00 Test Item Value Reference Range Interpretation Comments eGFR (test code = eGFR) 90 [facility]ann[facility] MEVWX4282-14-42 10:37:00 Test Item Value Reference Range Interpretation Comments Alk Phos (test code = Alk Phos) 125 39-136 [facility]ann[facility] KYVIF7290-53-15 10:37:00 Test Item Value Reference Range Interpretation Comments AST (test code = AST) 13 See_Comment [Auto mated message] The system which ge nerated this result transmit vasyl reference range : <=37. The reference range was not used to interpr et this result as minnie l/abnormal. [facility]2016-12-26 10:37:00 Test Item Value Reference Range Interpretation Comments ALT (test code = ALT) 23 See_Comment [Auto mated message] The system which ge nerated this result transmit vasyl reference range : <=65. The reference range was not used to interpr et this result as minnie l/abnormal. [facility]2016-12-26 10:37:00 Test Item Value Reference Range Interpretation Comments Albumin Lvl (test code = Albumin Lvl) 2.5 3.5-5.0 [facility]2016-12-26 10:37:00 Test Item Value Reference Range Interpretation Comments Bili Total (test code = Bili Total) 0.5 0.2-1.3 [facility]2016-12-26 10:37:00 Test Item Value Reference Range Interpretation Comments Potassium Lvl (test code = Potassium 3.7 3.5-5.1 Lvl) [facility]2016-12-26 10:37:00 Test Item Value Reference Range Interpretation Comments Total Protein (test code = Total 6.0 6.4-8.4 Protein) [facility]2016-12-26 10:37:00 Test Item Value Reference Range Interpretation Comments CO2 (test code = CO2) 25 24-32 [facility]2016-12-26 10:37:00 Test Item Value Reference Range Interpretation Comments Calcium Lvl (test code = Calcium Lvl) 8.8 8.5-10.5 [facility]2016-12-26 10:37:00 Test Item Value Reference Range Interpretation Comments Creatinine Lvl (test code = Creatinine 0.76 0.50-1.40 Lvl) [facility]2016-12-26 10:37:00 Test Item Value Reference Range Interpretation Comments Sodium Lvl (test code = Sodium Lvl) 141 135-145 [facility]2016-12-26 10:37:00 Test Item Value Reference Range Interpretation Comments Chloride Lvl (test code = Chloride Lvl) 105 95-109 [facility]2016-12-26 10:37:00 Test Item Value Reference Range Interpretation Comments BUN (test code = BUN) 4 7-22 [facility]2016-12-26 10:37:00 Test Item Value Reference Range Interpretation Comments Glucose Lvl (test code = Glucose Lvl) 103 70-99 [facility]2016-12-26 10:37:00 Test Item Value Reference Range Interpretation Comments Phosphorus (test code = Phosphorus) 3.6 2.5-4.5 [facility]2016-12-26 10:37:00 Test Item Value Reference Range Interpretation Comments Magnesium Lvl (test code = Magnesium 2.0 1.8-2.4 Lvl) [facility] CampusCpjjaezSNCLARUUXM9418-35-17 10:37:00 Test Item Value Reference Range Interpretation Comments Segs (test code = Segs) 53.2 45.0-75.0 [facility] CampusVwfswglAGGYPYVQZC5395-71-51 10:37:00 Test Item Value Reference Range Interpretation Comments Lymphocytes (test code = Lymphocytes) 36.3 20.0-40.0 [facility] CampusSskkxjvWZHVDGZROO8756-54-05 10:37:00 Test Item Value Reference Range Interpretation Comments Monocytes (test code = Monocytes) 8.0 2.0-12.0 [facility] CampusHxwyccgTDLFZYJDBW8732-78-39 10:37:00 Test Item Value Reference Range Interpretation Comments Eosinophils (test code = 1.9 See_Comment [A utomated message] The Eosinophils) system which ge nerated this result tra nsmitted reference range : <=4.0. The reference r niko was not used to int erpret this result as normal/abnormal . [facility] CampusDxxeksoOWFBCTZTZN6705-01-92 10:37:00 Test Item Value Reference Range Interpretation Comments Basophils (test code = 0.6 See_Comment [Aut omated message] The Basophils) system which ge nerated this result tra nsmitted reference range : <=1.0. The reference r niko was not used to int erpret this result as normal/abnormal . [facility] CampusGnplijzQYLXZPFYYC1341-46-56 10:37:00 Test Item Value Reference Range Interpretation Comments Monocytes # (test code 0.6 See_Comment [Aut omated message] The = Monocytes #) system which generated this result tra nsmitted reference range : <=0.8. The reference r niko was not used to int erpret this result as normal/abnormal . [address]12-26 10:37:00 Test Item Value Reference Range Interpretation Comments Eosinophils # (test code 0.1 See_Comment [A utomated message] The = Eosinophils #) system whic h generated this result tra nsmitted reference range : <=0.5. The reference r niko was not used to int erpret this result as normal/abnormal . [facility] CampusLpelylnJAMYXDZOPW6527-52-48 10:37:00 Test Item Value Reference Range Interpretation Comments Segs-Bands # (test code = Segs-Bands #) 3.9 1.5-8.1 [facility] CampusAomxfatNQPALMACFP7202-51-62 10:37:00 Test Item Value Reference Range Interpretation Comments Lymphocytes # (test code = Lymphocytes 2.6 1.0-5.5 #) [facility] CampusJmvaizaTLTDSUGARM2528-70-94 10:37:00 Test Item Value Reference Range Interpretation Comments MCH (test code = MCH) 27.9 pg 27.0-31.0 [facility] CampusFjxczbxAXQHIOOFOU7856-70-38 10:37:00 Test Item Value Reference Range Interpretation Comments RBC (test code = RBC) 3.23 4.70-6.10 [facility] CampusFzjzwvlAQWUTDFFDP3927-81-09 10:37:00 Test Item Value Reference Range Interpretation Comments Hgb (test code = Hgb) 9.0 14.0-18.0 [facility] CampusGxwbgeyJTZYEWSFZN2529-44-12 10:37:00 Test Item Value Reference Range Interpretation Comments Hct (test code = Hct) 27.1 42.0-54.0 [facility] CampusYaxrdvxWMGLAKNPPI6864-40-10 10:37:00 Test Item Value Reference Range Interpretation Comments MCV (test code = MCV) 84.0 80.0-94.0 [facility] CampusNxtjtkoYTPCTBFQLD7625-74-54 10:37:00 Test Item Value Reference Range Interpretation Comments WBC (test code = WBC) 7.2 3.7-10.4 [facility] CampusJgaizdiZJFEVPJSBE5996-20-08 10:37:00 Test Item Value Reference Range Interpretation Comments MCHC (test code = MCHC) 33.2 32.0-36.0 [facility] CampusRawyivpHDHLNOMZKJ1642-63-82 10:37:00 Test Item Value Reference Range Interpretation Comments Platelet (test code = Platelet) 333 133-450 [facility] CampusKwfcqqqXEZIEMKSKZ1632-78-96 10:37:00 Test Item Value Reference Range Interpretation Comments MPV (test code = MPV) 7.6 7.4-10.4 [facility] CampusVpcvcuoZXLPGEOQLD4940-05-41 10:37:00 Test Item Value Reference Range Interpretation Comments RDW (test code = RDW) 15.3 11.5-14.5 [facility]2016-12-24 11:30:00 Test Item Value Reference Range Interpretation Comments Folate Lvl (test code = Folate Lvl) 25.2 [facility]2016-12-24 11:30:00 Test Item Value Reference Range Interpretation Comments Vitamin B12 Lvl (test code = Vitamin [id number] B12 Lvl) [facility]2016-12-24 11:30:00 Test Item Value Reference Range Interpretation Comments VITAMIN B1 (THIAMINE) WHOLE BLOOD (test 208.6 66.5-200.0 code = VITAMIN B1 (THIAMINE) WHOLE BLOOD) [facility]2016-12-24 11:30:00 Test Item Value Reference Range Interpretation Comments Globulin (test code = Globulin) 3.6 2.7-4.2 [facility]2016-12-24 11:30:00 Test Item Value Reference Range Interpretation Comments A/G Ratio (test code = A/G Ratio) 0.7 0.7-1.6 [facility]2016-12-24 11:30:00 Test Item Value Reference Range Interpretation Comments AGAP (test code = AGAP) 11.9 10.0-20.0 [facility]2016-12-24 11:30:00 Test Item Value Reference Range Interpretation Comments B/C Ratio (test code = B/C Ratio) 6 6-25 [facility]2016-12-24 11:30:00 Test Item Value Reference Range Interpretation Comments eGFR (test code = eGFR) 90 [facility]2016-12-24 11:30:00 Test Item Value Reference Range Interpretation Comments Alk Phos (test code = Alk Phos) 132 39-136 [facility]2016-12-24 11:30:00 Test Item Value Reference Range Interpretation Comments Bili Total (test code = Bili Total) 0.4 0.2-1.3 [facility]2016-12-24 11:30:00 Test Item Value Reference Range Interpretation Comments Calcium Lvl (test code = Calcium Lvl) 8.6 8.5-10.5 [facility]2016-12-24 11:30:00 Test Item Value Reference Range Interpretation Comments BUN (test code = BUN) 5 7-22 [facility]2016-12-24 11:30:00 Test Item Value Reference Range Interpretation Comments AST (test code = AST) 16 See_Comment [Auto mated message] The system which ge nerated this result transmit vasyl reference range : <=37. The reference range was not used to interpr et this result as minnie l/abnormal. [facility]2016-12-24 11:30:00 Test Item Value Reference Range Interpretation Comments ALT (test code = ALT) 32 See_Comment [Auto mated message] The system which ge nerated this result transmit vasyl reference range : <=65. The reference range was not used to interpr et this result as minnie l/abnormal. [facility]2016-12-24 11:30:00 Test Item Value Reference Range Interpretation Comments Albumin Lvl (test code = Albumin Lvl) 2.5 3.5-5.0 [facility]2016-12-24 11:30:00 Test Item Value Reference Range Interpretation Comments Total Protein (test code = Total 6.1 6.4-8.4 Protein) [facility]2016-12-24 11:30:00 Test Item Value Reference Range Interpretation Comments Creatinine Lvl (test code = Creatinine 0.78 0.50-1.40 Lvl) [facility]2016-12-24 11:30:00 Test Item Value Reference Range Interpretation Comments Chloride Lvl (test code = Chloride Lvl) 107 95-109 [facility]2016-12-24 11:30:00 Test Item Value Reference Range Interpretation Comments Sodium Lvl (test code = Sodium Lvl) 143 135-145 [facility]2016-12-24 11:30:00 Test Item Value Reference Range Interpretation Comments CO2 (test code = CO2) 28 24-32 [facility]2016-12-24 11:30:00 Test Item Value Reference Range Interpretation Comments Potassium Lvl (test code = Potassium 3.9 3.5-5.1 Lvl) [place] 273016-12-24 11:30:00 Test Item Value Reference Range Interpretation Comments Glucose Lvl (test code = Glucose Lvl) 105 70-99 [facility]2016-12-24 11:30:00 Test Item Value Reference Range Interpretation Comments Phosphorus (test code = Phosphorus) 3.3 2.5-4.5 [facility]2016-12-24 11:30:00 Test Item Value Reference Range Interpretation Comments Magnesium Lvl (test code = Magnesium 1.9 1.8-2.4 Lvl) [facility] CampusZgvfcpbDGXMFSLXVN0394-94-93 11:30:00 Test Item Value Reference Range Interpretation Comments Monocytes (test code = Monocytes) 6.0 2.0-12.0 [facility] CampusDbjlkbiCLQBYSOHBY4881-72-53 11:30:00 Test Item Value Reference Range Interpretation Comments Eosinophils (test code = 1.6 See_Comment [A utomated message] The Eosinophils) system which ge nerated this result tra nsmitted reference range : <=4.0. The reference r niko was not used to int erpret this result as normal/abnormal . [facility] CampusEitwvlbQXKBAISMHS9655-80-80 11:30:00 Test Item Value Reference Range Interpretation Comments Lymphocytes (test code = Lymphocytes) 27.6 20.0-40.0 [facility] CampusVkupgyqNJCBKHAIZV2629-31-48 11:30:00 Test Item Value Reference Range Interpretation Comments Segs (test code = Segs) 64.1 45.0-75.0 [facility] CampusVgdrobgEWVCRUNNCQ7748-98-46 11:30:00 Test Item Value Reference Range Interpretation Comments Segs-Bands # (test code = Segs-Bands #) 5.3 1.5-8.1 [place] 174866-12-24 11:30:00 Test Item Value Reference Range Interpretation Comments Basophils (test code = 0.7 See_Comment [Aut omated message] The Basophils) system which ge nerated this result tra nsmitted reference range : <=1.0. The reference r niko was not used to int erpret this result as normal/abnormal . [facility] CampusAbcqnbvVWFTOKMKJK8631-49-46 11:30:00 Test Item Value Reference Range Interpretation Comments Basophils # (test code 0.1 See_Comment [Aut omated message] The = Basophils #) system which generated this result tra nsmitted reference range : <=0.2. The reference r niko was not used to int erpret this result as normal/abnormal . [facility] CampusWynjcryDHIFEAIGEQ7077-23-55 11:30:00 Test Item Value Reference Range Interpretation Comments Eosinophils # (test code 0.1 See_Comment [A utomated message] The = Eosinophils #) system whic h generated this result tra nsmitted reference range : <=0.5. The reference r niko was not used to int erpret this result as normal/abnormal . [facility] CampusOxwcqktQBMYWEZPFE0605-57-78 11:30:00 Test Item Value Reference Range Interpretation Comments Lymphocytes # (test code = Lymphocytes 2.3 1.0-5.5 #) [facility] CampusJrzowhzYEGEGIPVDJ9425-92-64 11:30:00 Test Item Value Reference Range Interpretation Comments Monocytes # (test code 0.5 See_Comment [Aut omated message] The = Monocytes #) system which generated this result tra nsmitted reference range : <=0.8. The reference r niko was not used to int erpret this result as normal/abnormal . [facility] CampusPxdqmqlUGZOPVHTEK3145-39-20 11:30:00 Test Item Value Reference Range Interpretation Comments Sed Rate (test code = 74 See_Comment [Auto mated message] The Sed Rate) system which ge nerated this result transmit vasyl reference range : <=15. The reference range was not used to interpr et this result as minnie l/abnormal. [facility] CampusEejxykuNAIZSIOETW1422-34-12 11:30:00 Test Item Value Reference Range Interpretation Comments WBC (test code = WBC) 8.3 3.7-10.4 [facility] CampusKzymaurCSRVKZNVZI2263-86-31 11:30:00 Test Item Value Reference Range Interpretation Comments RBC (test code = RBC) 3.31 4.70-6.10 [facility] CampusLzexhsrRMJSRYUXHQ4150-14-64 11:30:00 Test Item Value Reference Range Interpretation Comments Hgb (test code = Hgb) 9.2 14.0-18.0 [facility] CampusNxazhxsDMHTMIQXDB1668-72-04 11:30:00 Test Item Value Reference Range Interpretation Comments MCV (test code = MCV) 85.0 80.0-94.0 [facility] CampusDdmktvhEYFRNJDWUM2316-02-79 11:30:00 Test Item Value Reference Range Interpretation Comments MCH (test code = MCH) 27.8 pg 27.0-31.0 [facility] CampusBhtulhfCVYZDQQUWM4499-49-05 11:30:00 Test Item Value Reference Range Interpretation Comments Hct (test code = Hct) 28.2 42.0-54.0 [facility] CampusGqdpccoWSKYNCMGRO0898-78-45 11:30:00 Test Item Value Reference Range Interpretation Comments RDW (test code = RDW) 15.0 11.5-14.5 [facility] CampusEvqverxLOZMIMCEGR2578-95-01 11:30:00 Test Item Value Reference Range Interpretation Comments Platelet (test code = Platelet) 370 133-450 [facility] CampusArwdxlaOONNTERXEH1548-40-88 11:30:00 Test Item Value Reference Range Interpretation Comments MPV (test code = MPV) 7.7 7.4-10.4 [facility] CampusRkktsytGJSSKQFPLY6281-71-93 11:30:00 Test Item Value Reference Range Interpretation Comments MCHC (test code = MCHC) 32.7 32.0-36.0 [facility]KsnxxavRLLAVKUODA4046-36-96 11:30:00 Test Item Value Reference Range Interpretation Comments C-REACTIVE PROTEIN (test code = 20.1 C-REACTIVE PROTEIN) [facility]2016-12-23 09:08:00 Test Item Value Reference Range Interpretation Comments Globulin (test code = Globulin) 3.5 2.7-4.2 [facility]2016-12-23 09:08:00 Test Item Value Reference Range Interpretation Comments A/G Ratio (test code = A/G Ratio) 0.7 0.7-1.6 [facility]2016-12-23 09:08:00 Test Item Value Reference Range Interpretation Comments AGAP (test code = AGAP) 11.6 10.0-20.0 [facility]2016-12-23 09:08:00 Test Item Value Reference Range Interpretation Comments B/C Ratio (test code = B/C Ratio) 5 6-25 [facility]2016-12-23 09:08:00 Test Item Value Reference Range Interpretation Comments Albumin Lvl (test code = Albumin Lvl) 2.4 3.5-5.0 [facility]2016-12-23 09:08:00 Test Item Value Reference Range Interpretation Comments Calcium Lvl (test code = Calcium Lvl) 8.5 8.5-10.5 [facility]2016-12-23 09:08:00 Test Item Value Reference Range Interpretation Comments Total Protein (test code = Total 5.9 6.4-8.4 Protein) [place] 273016-12-23 09:08:00 Test Item Value Reference Range Interpretation Comments ALT (test code = ALT) 35 See_Comment [Auto mated message] The system which ge nerated this result transmit vasyl reference range : <=65. The reference range was not used to interpr et this result as minnie l/abnormal. [facility]2016-12-23 09:08:00 Test Item Value Reference Range Interpretation Comments Alk Phos (test code = Alk Phos) 120 39-136 [facility]2016-12-23 09:08:00 Test Item Value Reference Range Interpretation Comments AST (test code = AST) 18 See_Comment [Auto mated message] The system which ge nerated this result transmit vasyl reference range : <=37. The reference range was not used to interpr et this result as minnie l/abnormal. [facility]2016-12-23 09:08:00 Test Item Value Reference Range Interpretation Comments Glucose Lvl (test code = Glucose Lvl) 100 70-99 [facility]2016-12-23 09:08:00 Test Item Value Reference Range Interpretation Comments CO2 (test code = CO2) 27 24-32 [place] 273016-12-23 09:08:00 Test Item Value Reference Range Interpretation Comments Creatinine Lvl (test code = Creatinine 0.86 0.50-1.40 Lvl) [facility]2016-12-23 09:08:00 Test Item Value Reference Range Interpretation Comments Chloride Lvl (test code = Chloride Lvl) 106 95-109 [facility]2016-12-23 09:08:00 Test Item Value Reference Range Interpretation Comments BUN (test code = BUN) 4 7-22 [place] 273016-12-23 09:08:00 Test Item Value Reference Range Interpretation Comments Potassium Lvl (test code = Potassium 3.6 3.5-5.1 Lvl) [facility]2016-12-23 09:08:00 Test Item Value Reference Range Interpretation Comments Sodium Lvl (test code = Sodium Lvl) 141 135-145 [facility] BUAKY3386-09-59 09:08:00 Test Item Value Reference Range Interpretation Comments eGFR (test code = eGFR) 86 [facility]2016-12-23 09:08:00 Test Item Value Reference Range Interpretation Comments Bili Total (test code = Bili Total) 0.4 0.2-1.3 [facility] CampusXrczdvkHFHYHMDIPK5956-36-72 09:08:00 Test Item Value Reference Range Interpretation Comments MPV (test code = MPV) 7.7 7.4-10.4 [facility] CampusEyzuqjpGEVGFJFJTF7717-26-17 09:08:00 Test Item Value Reference Range Interpretation Comments Platelet (test code = Platelet) 357 133-450 [facility] CampusOcijljuAKSWTQXKKP9687-04-12 09:08:00 Test Item Value Reference Range Interpretation Comments RBC (test code = RBC) 3.05 4.70-6.10 [facility] CampusIbuylrqJKCSVKHXSJ0730-45-67 09:08:00 Test Item Value Reference Range Interpretation Comments WBC (test code = WBC) 8.4 3.7-10.4 [facility] CampusIfuvnuhRKSWOYXZPK5424-42-35 09:08:00 Test Item Value Reference Range Interpretation Comments Hgb (test code = Hgb) 8.6 14.0-18.0 [facility] CampusKvvloscPENGYZCQOZ7166-22-89 09:08:00 Test Item Value Reference Range Interpretation Comments Hct (test code = Hct) 26.4 42.0-54.0 [facility] CampusJlpknogDAJUDXRBAS9767-91-62 09:08:00 Test Item Value Reference Range Interpretation Comments MCH (test code = MCH) 28.1 pg 27.0-31.0 [facility] CampusZnvqyfjTQECUJISXR8502-39-13 09:08:00 Test Item Value Reference Range Interpretation Comments MCV (test code = MCV) 86.3 80.0-94.0 [facility] CampusSomjxyjSIQLVYEJWC8496-78-81 09:08:00 Test Item Value Reference Range Interpretation Comments RDW (test code = RDW) 14.8 11.5-14.5 [facility] CampusKbefflzKPURYDEJFQ7126-87-60 09:08:00 Test Item Value Reference Range Interpretation Comments MCHC (test code = MCHC) 32.5 32.0-36.[address]12-23 09:08:00 Test Item Value Reference Range Interpretation Comments Segs-Bands # (test code = Segs-Bands #) 5.5 1.5-8.1 [facility]HrqqasoVUUWOQDGYD5556-11-66 09:08:00 Test Item Value Reference Range Interpretation Comments Basophils (test code = 0.8 See_Comment [Aut omated message] The Basophils) system which ge nerated this result tra nsmitted reference range : <=1.0. The reference r niko was not used to int erpret this result as normal/abnormal . [facility] CampusAyawjuyFVQMRXCARS5408-85-57 09:08:00 Test Item Value Reference Range Interpretation Comments Monocytes # (test code 0.6 See_Comment [Aut omated message] The = Monocytes #) system which generated this result tra nsmitted reference range : <=0.8. The reference r niko was not used to int erpret this result as normal/abnormal . [facility] CampusPqafuteVWWYRHFVTY6314-99-80 09:08:00 Test Item Value Reference Range Interpretation Comments Lymphocytes # (test code = Lymphocytes 2.1 1.0-5.5 #) [facility] CampusMurcbxaHFRNCZTRIZ6816-15-74 09:08:00 Test Item Value Reference Range Interpretation Comments Basophils # (test code 0.1 See_Comment [Aut omated message] The = Basophils #) system which generated this result tra nsmitted reference range : <=0.2. The reference r niko was not used to int erpret this result as normal/abnormal . [facility] CampusNxxpwuySYETOBJXGR3619-32-96 09:08:00 Test Item Value Reference Range Interpretation Comments Eosinophils # (test code 0.1 See_Comment [A utomated message] The = Eosinophils #) system whic h generated this result tra nsmitted reference range : <=0.5. The reference r niko was not used to int erpret this result as normal/abnormal . [facility] CampusOkmiuhnWARZLIDGOV8737-66-69 09:08:00 Test Item Value Reference Range Interpretation Comments Lymphocytes (test code = Lymphocytes) 24.9 20.0-40.0 [facility] CampusQmgmskkESRVVUJWFU4558-54-37 09:08:00 Test Item Value Reference Range Interpretation Comments Segs (test code = Segs) 66.2 45.0-75.0 [place] 174866-12-23 09:08:00 Test Item Value Reference Range Interpretation Comments Eosinophils (test code = 1.3 See_Comment [A utomated message] The Eosinophils) system which ge nerated this result tra nsmitted reference range : <=4.0. The reference r niko was not used to int erpret this result as normal/abnormal . [facility] CampusGnnwlrkWHBRUKJILY5272-00-29 09:08:00 Test Item Value Reference Range Interpretation Comments Monocytes (test code = Monocytes) 6.8 2.0-12.0 [place] 273016-12-22 11:47:00 Test Item Value Reference Range Interpretation Comments Magnesium Lvl (test code = Magnesium 2.1 1.8-2.4 Lvl) [place] 273016-12-22 11:47:00 Test Item Value Reference Range Interpretation Comments Phosphorus (test code = Phosphorus) 3.4 2.5-4.5 [facility]2016-12-22 11:47:00 Test Item Value Reference Range Interpretation Comments eGFR (test code = eGFR) 87 [place] 273016-12-22 11:47:00 Test Item Value Reference Range Interpretation Comments Total Protein (test code = Total 5.9 6.4-8.4 Protein) [facility]2016-12-22 11:47:00 Test Item Value Reference Range Interpretation Comments AST (test code = AST) 19 See_Comment [Auto mated message] The system which ge nerated this result transmit vasyl reference range : <=37. The reference range was not used to interpr et this result as minnie l/abnormal. [facility]2016-12-22 11:47:00 Test Item Value Reference Range Interpretation Comments ALT (test code = ALT) 34 See_Comment [Auto mated message] The system which ge nerated this result transmit vasyl reference range : <=65. The reference range was not used to interpr et this result as minnie l/abnormal. [facility]2016-12-22 11:47:00 Test Item Value Reference Range Interpretation Comments Bili Total (test code = Bili Total) 0.3 0.2-1.3 [place] 273016-12-22 11:47:00 Test Item Value Reference Range Interpretation Comments Alk Phos (test code = Alk Phos) 121 39-136 [facility]2016-12-22 11:47:00 Test Item Value Reference Range Interpretation Comments Albumin Lvl (test code = Albumin Lvl) 2.4 3.5-5.0 [facility]2016-12-22 11:47:00 Test Item Value Reference Range Interpretation Comments BUN (test code = BUN) 5 7-22 [facility]2016-12-22 11:47:00 Test Item Value Reference Range Interpretation Comments Glucose Lvl (test code = Glucose Lvl) 119 70-99 [facility]2016-12-22 11:47:00 Test Item Value Reference Range Interpretation Comments Sodium Lvl (test code = Sodium Lvl) 141 135-145 [facility]2016-12-22 11:47:00 Test Item Value Reference Range Interpretation Comments Creatinine Lvl (test code = Creatinine 0.85 0.50-1.40 Lvl) [facility]2016-12-22 11:47:00 Test Item Value Reference Range Interpretation Comments Chloride Lvl (test code = Chloride Lvl) 108 95-109 [facility]2016-12-22 11:47:00 Test Item Value Reference Range Interpretation Comments Potassium Lvl (test code = Potassium 3.9 3.5-5.1 Lvl) [facility]2016-12-22 11:47:00 Test Item Value Reference Range Interpretation Comments Calcium Lvl (test code = Calcium Lvl) 8.4 8.5-10.5 [facility]2016-12-22 11:47:00 Test Item Value Reference Range Interpretation Comments CO2 (test code = CO2) 25 24-32 [facility]2016-12-22 11:47:00 Test Item Value Reference Range Interpretation Comments B/C Ratio (test code = B/C Ratio) 6 6-25 [facility]2016-12-22 11:47:00 Test Item Value Reference Range Interpretation Comments AGAP (test code = AGAP) 11.9 10.0-20.0 [facility]2016-12-22 11:47:00 Test Item Value Reference Range Interpretation Comments A/G Ratio (test code = A/G Ratio) 0.7 0.7-1.6 [facility]2016-12-22 11:47:00 Test Item Value Reference Range Interpretation Comments Globulin (test code = Globulin) 3.5 2.7-4.2 [facility] CampusDdmhxrfVKLKFJJIFQ4886-82-35 11:47:00 Test Item Value Reference Range Interpretation Comments Eosinophils # (test code 0.1 See_Comment [A utomated message] The = Eosinophils #) system whic h generated this result tra nsmitted reference range : <=0.5. The reference r niko was not used to int erpret this result as normal/abnormal . [facility] CampusMxaoqvzPGESIVWBIK7589-47-35 11:47:00 Test Item Value Reference Range Interpretation Comments Monocytes # (test code 0.6 See_Comment [Aut omated message] The = Monocytes #) system which generated this result tra nsmitted reference range : <=0.8. The reference r niko was not used to int erpret this result as normal/abnormal . [facility] CampusHvsakcxTKQYAKUDJU2188-52-47 11:47:00 Test Item Value Reference Range Interpretation Comments Basophils # (test code 0.1 See_Comment [Aut omated message] The = Basophils #) system which generated this result tra nsmitted reference range : <=0.2. The reference r niko was not used to int erpret this result as normal/abnormal . [facility] CampusInyxdwqNQVTSBGLHR0248-92-08 11:47:00 Test Item Value Reference Range Interpretation Comments Segs (test code = Segs) 65.0 45.0-75.0 [facility] CampusPhsbtclHSBDAVDYFM5821-49-47 11:47:00 Test Item Value Reference Range Interpretation Comments Lymphocytes # (test code = Lymphocytes 1.9 1.0-5.5 #) [facility] CampusLovsaztREPDBSOOZA9340-30-57 11:47:00 Test Item Value Reference Range Interpretation Comments Segs-Bands # (test code = Segs-Bands #) 4.9 1.5-8.1 [facility] CampusJgpazclMMFTDFZZDW5672-46-36 11:47:00 Test Item Value Reference Range Interpretation Comments Basophils (test code = 1.0 See_Comment [Aut omated message] The Basophils) system which ge nerated this result tra nsmitted reference range : <=1.0. The reference r niko was not used to int erpret this result as normal/abnormal . [facility] CampusNhyetdtYGRMNICIZA7488-80-63 11:47:00 Test Item Value Reference Range Interpretation Comments Monocytes (test code = Monocytes) 7.3 2.0-12.0 [facility] CampusAqqndndUFAEGVKCEV7278-07-32 11:47:00 Test Item Value Reference Range Interpretation Comments Lymphocytes (test code = Lymphocytes) 25.3 20.0-40.0 [facility] CampusEylchadWEUNYDLERN1116-88-43 11:47:00 Test Item Value Reference Range Interpretation Comments Eosinophils (test code = 1.4 See_Comment [A utomated message] The Eosinophils) system which ge nerated this result tra nsmitted reference range : <=4.0. The reference r niko was not used to int erpret this result as normal/abnormal . [facility] CampusClgjebnXLSUIPFCGO0751-55-39 11:47:00 Test Item Value Reference Range Interpretation Comments Platelet (test code = Platelet) 338 133-450 [facility] CampusZmsvkpuYNRWTNQLCW0519-49-93 11:47:00 Test Item Value Reference Range Interpretation Comments RDW (test code = RDW) 14.6 11.5-14.5 [facility] CampusJrikggdHQZLHXXDCN9552-85-19 11:47:00 Test Item Value Reference Range Interpretation Comments MPV (test code = MPV) 7.7 7.4-10.4 [facility] CampusChcsgvcCKLRAFONGF7265-47-59 11:47:00 Test Item Value Reference Range Interpretation Comments MCV (test code = MCV) 89.8 80.0-94.0 [facility] CampusWuesetfCSVBYNUUTZ1792-90-14 11:47:00 Test Item Value Reference Range Interpretation Comments MCH (test code = MCH) 27.7 pg 27.0-31.0 [facility] CampusIipledjQUTVGHDCQM8701-08-28 11:47:00 Test Item Value Reference Range Interpretation Comments MCHC (test code = MCHC) 30.9 32.0-36.0 [facility] CampusRqstqlpCJQCOBELJM5298-36-34 11:47:00 Test Item Value Reference Range Interpretation Comments Hgb (test code = Hgb) 8.6 14.0-18.0 [facility] CampusIzeszxzFJNOQFVVGB3863-06-80 11:47:00 Test Item Value Reference Range Interpretation Comments RBC (test code = RBC) 3.09 4.70-6.10 [facility] CampusSadwzywOGHHLZHEVH1897-42-79 11:47:00 Test Item Value Reference Range Interpretation Comments WBC (test code = WBC) 7.6 3.7-10.4 [facility]rlLHDEMKHMZJ0702[facility] 11:47:00 Test Item Value Reference Range Interpretation Comments Hct (test code = Hct) 27.8 42.0-54.0 [facility]2016-12-21 10:06:00 Test Item Value Reference Range Interpretation Comments Phosphorus (test code = Phosphorus) 3.1 2.5-4.5 [facility]2016-12-21 10:06:00 Test Item Value Reference Range Interpretation Comments Magnesium Lvl (test code = Magnesium 2.3 1.8-2.4 Lvl) [facility]2016-12-21 10:06:00 Test Item Value Reference Range Interpretation Comments AST (test code = AST) 20 See_Comment [Auto mated message] The system which ge nerated this result transmit vasyl reference range : <=37. The reference range was not used to interpr et this result as minnie l/abnormal. [facility]2016-12-21 10:06:00 Test Item Value Reference Range Interpretation Comments Alk Phos (test code = Alk Phos) 108 39-136 [facility]2016-12-21 10:06:00 Test Item Value Reference Range Interpretation Comments Bili Total (test code = Bili Total) 0.4 0.2-1.3 [facility]2016-12-21 10:06:00 Test Item Value Reference Range Interpretation Comments Albumin Lvl (test code = Albumin Lvl) 2.2 3.5-5.0 [facility]2016-12-21 10:06:00 Test Item Value Reference Range Interpretation Comments Total Protein (test code = Total 5.6 6.4-8.4 Protein) [facility]2016-12-21 10:06:00 Test Item Value Reference Range Interpretation Comments Calcium Lvl (test code = Calcium Lvl) 8.2 8.5-10.5 [facility]2016-12-21 10:06:00 Test Item Value Reference Range Interpretation Comments ALT (test code = ALT) 40 See_Comment [Auto mated message] The system which ge nerated this result transmit vasyl reference range : <=65. The reference range was not used to interpr et this result as minnie l/abnormal. [facility]2016-12-21 10:06:00 Test Item Value Reference Range Interpretation Comments eGFR (test code = eGFR) 87 [facility]2016-12-21 10:06:00 Test Item Value Reference Range Interpretation Comments Creatinine Lvl (test code = Creatinine 0.84 0.50-1.40 Lvl) [facility]2016-12-21 10:06:00 Test Item Value Reference Range Interpretation Comments Sodium Lvl (test code = Sodium Lvl) 140 135-145 [facility]2016-12-21 10:06:00 Test Item Value Reference Range Interpretation Comments Glucose Lvl (test code = Glucose Lvl) 125 70-99 [facility]2016-12-21 10:06:00 Test Item Value Reference Range Interpretation Comments Potassium Lvl (test code = Potassium 4.2 3.5-5.1 Lvl) [facility]2016-12-21 10:06:00 Test Item Value Reference Range Interpretation Comments Chloride Lvl (test code = Chloride Lvl) 106 95-109 [facility]2016-12-21 10:06:00 Test Item Value Reference Range Interpretation Comments BUN (test code = BUN) 10 -22 [facility]2016-12-21 10:06:00 Test Item Value Reference Range Interpretation Comments CO2 (test code = CO2) 26 24-32 [facility]2016-12-21 10:06:00 Test Item Value Reference Range Interpretation Comments AGAP (test code = AGAP) 12.2 10.0-20.0 [facility]2016-12-21 10:06:00 Test Item Value Reference Range Interpretation Comments A/G Ratio (test code = A/G Ratio) 0.6 0.7-1.6 [facility]2016-12-21 10:06:00 Test Item Value Reference Range Interpretation Comments B/C Ratio (test code = B/C Ratio) 12 - [facility]2016-12-21 10:06:00 Test Item Value Reference Range Interpretation Comments Globulin (test code = Globulin) 3.4 2.7-4.2 [facility] CampusOchprrkRKZWTDEYNC7735-45-11 10:06:00 Test Item Value Reference Range Interpretation Comments Eosinophils (test code = 1.6 See_Comment [A utomated message] The Eosinophils) system which ge nerated this result tra nsmitted reference range : <=4.0. The reference r niko was not used to int erpret this result as normal/abnormal . [facility] CampusYigbalgRJVRHIRQFK3738-38-85 10:06:00 Test Item Value Reference Range Interpretation Comments Monocytes (test code = Monocytes) 6.6 2.0-12.0 [facility] CampusFvonfbwOUBNWQQIPE4280-43-97 10:06:00 Test Item Value Reference Range Interpretation Comments Lymphocytes (test code = Lymphocytes) 22.1 20.0-40.0 [facility] CampusJerimekKGSPNSIIBL1194-77-85 10:06:00 Test Item Value Reference Range Interpretation Comments Segs (test code = Segs) 68.8 45.0-75.0 [facility] CampusHoultdgFVQLWYNYLN5955-24-16 10:06:00 Test Item Value Reference Range Interpretation Comments Monocytes # (test code 0.5 See_Comment [Aut omated message] The = Monocytes #) system which generated this result tra nsmitted reference range : <=0.8. The reference r niko was not used to int erpret this result as normal/abnormal . [facility] CampusRxoqnckAPAKKTVEVR7055-28-09 10:06:00 Test Item Value Reference Range Interpretation Comments Basophils # (test code 0.1 See_Comment [Aut omated message] The = Basophils #) system which generated this result tra nsmitted reference range : <=0.2. The reference r niko was not used to int erpret this result as normal/abnormal . [facility] CampusWwijbwbCGFIZZCOLR8270-70-82 10:06:00 Test Item Value Reference Range Interpretation Comments Eosinophils # (test code 0.1 See_Comment [A utomated message] The = Eosinophils #) system whic h generated this result tra nsmitted reference range : <=0.5. The reference r niko was not used to int erpret this result as normal/abnormal . [facility] CampusFhckuehSMSSFFJSAI1328-10-12 10:06:00 Test Item Value Reference Range Interpretation Comments Segs-Bands # (test code = Segs-Bands #) 5.5 1.5-8.1 [facility] CampusBpnbqldZOKOEMSLFA7711-51-94 10:06:00 Test Item Value Reference Range Interpretation Comments Basophils (test code = 0.9 See_Comment [Aut omated message] The Basophils) system which ge nerated this result tra nsmitted reference range : <=1.0. The reference r niko was not used to int erpret this result as normal/abnormal . [facility] CampusJxtpmzcIBDGMFCOLJ6838-86-50 10:06:00 Test Item Value Reference Range Interpretation Comments Lymphocytes # (test code = Lymphocytes 1.8 1.0-5.5 #) [facility] CampusTehellySKCCYJHXMW7653-46-89 10:06:00 Test Item Value Reference Range Interpretation Comments Hct (test code = Hct) 23.5 42.0-54.0 [facility] CampusNchfvzjHKZRPXXMSJ2775-08-92 10:06:00 Test Item Value Reference Range Interpretation Comments RBC (test code = RBC) 2.73 4.70-6.10 [facility] CampusTozhvkcDAGKABOPJJ8485-16-72 10:06:00 Test Item Value Reference Range Interpretation Comments Hgb (test code = Hgb) 7.6 14.0-18.0 [facility] CampusGrlgszdGZIEIAYJSK0676-27-09 10:06:00 Test Item Value Reference Range Interpretation Comments RDW (test code = RDW) 14.9 11.5-14.5 [facility] CampusKmiqjwsUSWDXSCWXB3414-94-71 10:06:00 Test Item Value Reference Range Interpretation Comments Platelet (test code = Platelet) 285 133-450 [facility] CampusAlxatcoVSKULUXIZM6728-41-11 10:06:00 Test Item Value Reference Range Interpretation Comments MPV (test code = MPV) 8.0 7.4-10.4 [facility] CampusIittjymWMJKRYYJSF6678-52-71 10:06:00 Test Item Value Reference Range Interpretation Comments WBC (test code = WBC) 7.9 3.7-10.4 [facility] CampusSmmtdxjPUPBRDBNEY7343-21-16 10:06:00 Test Item Value Reference Range Interpretation Comments MCHC (test code = MCHC) 32.4 32.0-36.0 [facility] CampusFqleglrNJGSIFLNQN7125-05-17 10:06:00 Test Item Value Reference Range Interpretation Comments MCV (test code = MCV) 86.0 80.0-94.0 [facility] CampusOxzrcqoYTKHQYAIEA9308-08-70 10:06:00 Test Item Value Reference Range Interpretation Comments MCH (test code = MCH) 27.8 pg 27.0-31.0 [facility]2016-12-20 10:52:00 Test Item Value Reference Range Interpretation Comments Magnesium Lvl (test code = Magnesium 1.9 1.8-2.4 Lvl) [facility] [id number] 10:52:00 Test Item Value Reference Range Interpretation Comments Phosphorus (test code = Phosphorus) 3.2 2.5-4.5 [facility]QgdinnuSIDCQVPOMI1652-65-13 23:24:00 Test Item Value Reference Range Interpretation Comments Aspergillus fumigatus (test code = Negative Aspergillus fumigatus) [facility]wayMnqryorBJNRNNOLYG6083-04-86 23:24:00 Test Item Value Reference Range Interpretation Comments Aspergillus flavus (test code = Negative Aspergillus flavus) [facility]wayXwzywssAUOSMFYZWT5177-45-39 23:24:00 Test Item Value Reference Range Interpretation Comments Aspergillus niger (test code = Negative Aspergillus niger) [facility]wayWhujphjRXFPHAHNVH4563-11-69 23:24:00 Test Item Value Reference Range Interpretation Comments Blastomyces Ab (test code = Negative Blastomyces Ab) [facility]qurhdxOQBXNXCUCP4710-88-90 23:24:00 Test Item Value Reference Range Interpretation Comments Coccidiodes Ab by ID (test code = Negative Coccidiodes Ab by ID) [facility] TempleOwyperkYNYAPRYILM5717-96-42 23:24:00 Test Item Value Reference Range Interpretation Comments Histoplasma Ab (test code = Negative Histoplasma Ab) [facility] AND [id number] 17:44:00 Test Item Value Reference Range Interpretation Comments UA Sq Epi (test code = UA Sq Epi) None Seen [facility] AND [id number] 17:44:00 Test Item Value Reference Range Interpretation Comments UA Urobilinogen (test code = UA <=1.0 mg/dL 0.1-1.0 Urobilinogen) [facility] AND [id number] 17:44:00 Test Item Value Reference Range Interpretation Comments UA Mucus (test code = UA Mucus) Few /LPF [facility] AND [id number] 17:44:00 Test Item Value Reference Range Interpretation Comments UA WBC (test code = 2 See_Comment [Automa vasyl message] The UA WBC) system which ge nerated this result transmit vasyl reference range : <=5. The reference range was not used to interpr et this result as minnie l/abnormal. [facility] AND [id number] 17:44:00 Test Item Value Reference Range Interpretation Comments UA Leuk Est (test Negative (03/13/16 11:44 code = UA Leuk Est) AM) [facility] AND [id number] 17:44:00 Test Item Value Reference Range Interpretation Comments UA RBC (test code = no gt See_Comment [Automa vasyl message] The UA RBC) system which ge nerated this result transmit vasyl reference range : <=2. The reference range was not used to interpr et this result as minnie l/abnormal. [facility] AND [id number] 17:44:00 Test Item Value Reference Range Interpretation Comments UA Nitrite (test code Negative (03/13/16 = UA Nitrite) 11:44 AM) [facility] AND [id number] 17:44:00 Test Item Value Reference Range Interpretation Comments UA Blood (test code = Negative (03/13/16 11:44 UA Blood) AM) [facility] AND [id number] 17:44:00 Test Item Value Reference Range Interpretation Comments UA Spec Grav (test code = UA Spec Grav) 1.008 [facility] AND [id number] 17:44:00 Test Item Value Reference Range Interpretation Comments UA Turbidity (test code = Clear (03/13/16 UA Turbidity) 11:44 AM) [facility] AND [id number] 17:44:00 Test Item Value Reference Range Interpretation Comments UA pH (test code = UA pH) 6.5 5.0-8.0 [facility] AND [id number] 17:44:00 Test Item Value Reference Range Interpretation Comments UA Color (test code = Yellow *NA*(03/13/16 UA Color) 11:44 AM) [facility] AND [id number] 17:44:00 Test Item Value Reference Range Interpretation Comments UA Ketones (test code = UA Negative mg/dL Ketones) [facility] AND [id number] 17:44:00 Test Item Value Reference Range Interpretation Comments UA Bili (test code = Negative *NA*(03/13/16 UA Bili) 11:44 AM) [facility] AND [id number] 17:44:00 Test Item Value Reference Range Interpretation Comments UA Protein (test code = UA Negative mg/dL Protein) [facility] AND [id number] 17:44:00 Test Item Value Reference Range Interpretation Comments UA Glucose (test code = UA Negative mg/dL Glucose) [facility] CampusGvigbxuBNUWMMNIEW5206-15-19 11:27:00 Test Item Value Reference Range Interpretation Comments Plt Morph (test code = Normal (03/11/16 5:27 Plt Morph) AM) [facility] CampusVyflrdgOVBRRRXVNQ5022-12-41 11:27:00 Test Item Value Reference Range Interpretation Comments Polychrom (test code = Polychrom) Slight [facility] CampusRnyaotoWWGKAKPBTC0194-21-58 15:46:00 Test Item Value Reference Range Interpretation Comments Macrocyte (test code = 1+ *ABN*(03/10/16 Macrocyte) 9:46 AM) [facility] CampusBiyqfvlJPOUKAZHIH7800-28-80 11:37:00 Test Item Value Reference Range Interpretation Comments Bands (test code = 0.0 See_Comment [Automat ed message] The Bands) system which ge nerated this result transmit vasyl reference range : <=11.0. The reference r niko was not used to interpr et this result as minnie l/abnormal. [facility] [id number] 11:37:00 Test Item Value Reference Range Interpretation Comments Metamyelocytes (test code 1.0 See_Comment [ Automated message] = Metamyelocytes) The system which generated this result transmitted ref erence range: <=1.0. T he reference range was not used to int erpret this result as normal/abnormal . [facility] [id number] 11:37:00 Test Item Value Reference Range Interpretation Comments Plt Morph (test code = Normal (03/08/16 5:37 Plt Morph) AM) [facility] Camp[id number] 11:37:00 Test Item Value Reference Range Interpretation Comments Atypical Lymphs (test code = Atypical 0.0 Lymphs) [facility] CampusUwkcdljQUHLUXZNGF0673-41-94 11:37:00 Test Item Value Reference Range Interpretation Comments Myelocytes (test code = Myelocytes) 1.0 [facility] [id number] 22:22:00 Test Item Value Reference Range Interpretation Comments Ca Ion WB (test code = Ca Ion WB) 1.05 1.05-1.25 [facility]PARATHYROID [id number] 22:22:00 Test Item Value Reference Range Interpretation Comments Ca Norm WB (test code = Ca Norm WB) 1.06 1.05-1.25 [facility] ParkwayCHEM [id number] 07:39:00 Test Item Value Reference Range Interpretation Comments Procalcitonin Lvl (test 1.24 See_Comment [Au tomated message] code = Procalcitonin Lvl) Th e system which generated this result transmitted ref erence range: <=0.10. The reference range was not used to interpr et this result as normal/abnormal . [facility] CampusMcnogucKNMVBBZTNR1941-03-44 07:39:00 Test Item Value Reference Range Interpretation Comments Sed Rate (test code = 100 See_Comment [Auto mated message] The Sed Rate) system which ge nerated this result transmit vasyl reference range : <=15. The reference range was not used to interpr et this result as minnie l/abnormal. [facility] [id number] 07:39:00 Test Item Value Reference Range Interpretation Comments C-REACTIVE PROTEIN (test code = 276.0 C-REACTIVE PROTEIN) [facility] CampusOgrncvaKGRDSIKLAS4172-02-72 14:46:00 Test Item Value Reference Range Interpretation Comments Anisocyte (test code = 1+ *ABN*(03/05/16 Anisocyte) 8:46 AM) [facility] Camp[id number] 14:46:00 Test Item Value Reference Range Interpretation Comments Plt Morph (test code = Normal (03/05/16 8:46 Plt Morph) AM) [facility] [id number] 14:46:00 Test Item Value Reference Range Interpretation Comments Metamyelocytes (test code 2.0 See_Comment [ Automated message] = Metamyelocytes) The system which generated this result transmitted ref erence range: <=1.0. T he reference range was not used to int erpret this result as normal/abnormal . [facility] CampusGtmwybhESANWESSHU2471-28-04 14:46:00 Test Item Value Reference Range Interpretation Comments Atypical Lymphs (test code = Atypical 0.0 Lymphs) [facility] [id number] 14:46:00 Test Item Value Reference Range Interpretation Comments Bands (test code = 1.0 See_Comment [Automat ed message] The Bands) system which ge nerated this result transmit vasyl reference range : <=11.0. The reference r niko was not used to interpr et this result as minnie l/abnormal. [facility] [id number] 22:26:00 Test Item Value Reference Range Interpretation Comments Ca Ion WB (test code = Ca Ion WB) 1.09 1.05-1.25 [facility]PAR[facility]YROID [id number] 22:26:00 Test Item Value Reference Range Interpretation Comments Ca Norm WB (test code = Ca Norm WB) 1.07 1.05-1.25 [facility] [id number] 17:57:00 Test Item Value Reference Range Interpretation Comments UA Sq Epi (test code = UA Sq Epi) None Seen [facility] [id number] 17:57:00 Test Item Value Reference Range Interpretation Comments UA Hyal Cast (test 3 See_Comment [Automat ed message] The code = UA Hyal Cast) system which generated this result transmit vasyl reference range : <=2. The reference range was not used to interpr et this result as minnie l/abnormal. [facility] [id number] 17:57:00 Test Item Value Reference Range Interpretation Comments UA Charlton Yeast (test code = UA Charlton Few /HPF Yeast) [facility] [id number] 17:57:00 Test Item Value Reference Range Interpretation Comments UA Hyph Yeast (test Occasional *ABN*(03/04/16 code = UA Hyph 11:57 AM) Yeast) [facility] [id number] 17:57:00 Test Item Value Reference Range Interpretation Comments UA Urobilinogen (test code = UA <=1.0 mg/dL 0.1-1.0 Urobilinogen) [facility] [id number] 17:57:00 Test Item Value Reference Range Interpretation Comments UA Amorph Cindy (test code = Occasional /HPF UA Amorph Cindy) [facility] [id number] 17:57:00 Test Item Value Reference Range Interpretation Comments UA WBC (test code = 14 See_Comment [Automa vasyl message] The UA WBC) system which ge nerated this result transmit vasyl reference range : <=5. The reference range was not used to interpr et this result as minnie l/abnormal. [facility] [id number] 17:57:00 Test Item Value Reference Range Interpretation Comments UA RBC (test code = 3 See_Comment [Automa vasyl message] The UA RBC) system which ge nerated this result transmit vasyl reference range : <=2. The reference range was not used to interpr et this result as minnie l/abnormal. [facility]raST. [facility] AND [id number] 17:57:00 Test Item Value Reference Range Interpretation Comments UA Bacteria (test code = UA Occasional /HPF Bacteria) [facility] AND [id number] 17:57:00 Test Item Value Reference Range Interpretation Comments UA Mucus (test code = UA Mucus) Few /LPF [facility] AND [id number] 17:57:00 Test Item Value Reference Range Interpretation Comments UA Glucose (test code = UA Negative mg/dL Glucose) [facility] AND [id number] 17:57:00 Test Item Value Reference Range Interpretation Comments UA pH (test code = UA pH) 6.0 5.0-8.0 [facility] AND [id number] 17:57:00 Test Item Value Reference Range Interpretation Comments UA Spec Grav (test code = UA Spec Grav) 1.018 [facility] AND [id number] 17:57:00 Test Item Value Reference Range Interpretation Comments UA Color (test code = Yellow *NA*(03/04/16 UA Color) 11:57 AM) [facility] AND [id number] 17:57:00 Test Item Value Reference Range Interpretation Comments UA Turbidity (test code = Clear (03/04/16 UA Turbidity) 11:57 AM) [facility] AND [id number] 17:57:00 Test Item Value Reference Range Interpretation Comments UA Blood (test code = Negative (03/04/16 11:57 UA Blood) AM) [facility] AND [id number] 17:57:00 Test Item Value Reference Range Interpretation Comments UA Bili (test code = Negative *NA*(03/04/16 UA Bili) 11:57 AM) [facility] AND [id number] 17:57:00 Test Item Value Reference Range Interpretation Comments UA Nitrite (test code Negative (12/10/16 = UA Nitrite) 11:57 AM) [facility] AND [id number] 17:57:00 Test Item Value Reference Range Interpretation Comments UA Leuk Est (test code Small *ABN*(03/04/16 = UA Leuk Est) 11:57 AM) [facility] AND [id number] 17:57:00 Test Item Value Reference Range Interpretation Comments UA Protein (test code = UA Protein) 50 mg/dL [facility] AND [id number] 17:57:00 Test Item Value Reference Range Interpretation Comments UA Ketones (test code = UA Negative mg/dL Ketones) [facility] HospitalCircleBuilderCARTalkToAC [id number] 10:27:00 Test Item Value Reference Range Interpretation Comments Troponin-I (test code 0.03 See_Comment [Auto mated message] The = Troponin-I) system which g enerated this result transmit vasyl reference range : <=0.40. The reference r niko was not used to interpr et this result as minnie l/abnormal. [facility] [employer] [id number] 10:27:00 Test Item Value Reference Range Interpretation Comments Total CK (test code = Total CK) 183 12-191 [facility] [employer] [id number] 10:27:00 Test Item Value Reference Range Interpretation Comments CK MB Index (test 0.5 See_Comment [Automate d message] The code = CK MB Index) system w [facility] generated this result transmit vasyl reference range : <=2.5. The reference range was not used to interpr et this result as minnie l/abnormal. [facility] [employer] [id number] 10:27:00 Test Item Value Reference Range Interpretation Comments CK MB (test code = CK MB) 0.9 0.5-3.6 [facility] [employer] [id number] 10:27:00 Test Item Value Reference Range Interpretation Comments Bili Direct (test code 0.1 See_Comment [Aut omated message] The = Bili Direct) system which generated this result tra nsmitted reference range : <=0.3. The reference r niko was not used to int erpret this result as minnie l/abnormal. [employer] [id number] 10:27:00 Test Item Value Reference Range Interpretation Comments Bili Indirect (test 0.3 See_Comment [Automa vasyl message] The code = Bili Indirect) system which generated this result tra nsmitted reference range : <=1.0. The reference r niko was not used to int erpret this result as normal/abnormal . [facility] [id number] 10:27:00 Test Item Value Reference Range Interpretation Comments Vanco Tr TND (test code = Vanco Tr TND) [address] [facility] H[id number] 10:27:00 Test Item Value Reference Range Interpretation Comments Vanco Tr (test code = Vanco Tr) no gt [facility] VelascaannCHEM [id number] 23:04:00 Test Item Value Reference Range Interpretation Comments Lactic Acid Lvl (test code = Lactic 1.3 0.5-2.2 Acid Lvl) [facility] HospitalannCARDIAC [id number] 23:26:00 Test Item Value Reference Range Interpretation Comments CK MB Index (test 1.6 See_Comment [Automate d message] The code = CK MB Index) [facility] result transmit vasyl reference range : <=2.5. The reference range was not used to interpr et this result as minnie l/abnormal. [facility] VelascaannCARDIAC [id number] 23:26:00 Test Item Value Reference Range Interpretation Comments CK MB (test code = CK MB) 2.8 0.5-3.6 [facility] HospitalannCARDIAC [id number] 23:26:00 Test Item Value Reference Range Interpretation Comments Troponin-I (test code 0.02 See_Comment [Auto mated message] The = Troponin-I) system which g enerated this result transmit vasyl reference range : <=0.40. The reference r niko was not used to interpr et this result as minnie l/abnormal. [facility] VelascaannCARDIAC [id number] 23:26:00 Test Item Value Reference Range Interpretation Comments Total CK (test code = Total CK) 176 12-191 [facility] HospitalCircleBuilderBLOOD BANK [id number] 18:20:00 Test Item Value Reference Range Interpretation Comments RBC product (test code Product available = RBC product) (02/29/16 12:20 PM) [place] [id number] 07:23:00 Test Item Value Reference Range Interpretation Comments Chaseo Tr TND (test code = Vanco Tr TND) [address] [facility] [id number] 07:23:00 Test Item Value Reference Range Interpretation Comments Vanco Tr (test code = Vanco Tr) 9.4 [facility] [place] [id number] 18:45:00 Test Item Value Reference Range Interpretation Comments Antibody Scrn (test Negative (02/28/16 code = Antibody Scrn) 12:45 PM) [facility] [place] [id number] 18:45:00 Test Item Value Reference Range Interpretation Comments ABO/Rh (test code = ABO/Rh) B POS [facility] AND [id number] 14:36:00 Test Item Value Reference Range Interpretation Comments UA Urobilinogen (test code = UA <=1.0 mg/dL 0.1-1.0 Urobilinogen) [facility] AND [id number] 14:36:00 Test Item Value Reference Range Interpretation Comments UA RBC (test code = 168 See_Comment [Automa vasyl message] The UA RBC) system which ge nerated this result transmit vasyl reference range : <=2. The reference range was not used to interpr et this result as minnie l/abnormal. [facility] AND [id number] 14:36:00 Test Item Value Reference Range Interpretation Comments UA Mucus (test code = UA Mucus) Few /LPF [facility] AND [id number] 14:36:00 Test Item Value Reference Range Interpretation Comments UA Sq Epi (test code = UA Sq Epi) None Seen [facility] AND [id number] 14:36:00 Test Item Value Reference Range Interpretation Comments UA Leuk Est (test code Small *ABN*(02/28/16 = UA Leuk Est) 8:36 AM) [facility] AND [id number] 14:36:00 Test Item Value Reference Range Interpretation Comments UA WBC (test code = 9 See_Comment [Automa vasyl message] The UA WBC) system which ge nerated this result transmit vasyl reference range : <=5. The reference range was not used to interpr et this result as minnie l/abnormal. [facility] AND [id number] 14:36:00 Test Item Value Reference Range Interpretation Comments UA Color (test code = Yellow *NA*(02/28/16 UA Color) 8:36 AM) [facility] AND [id number] 14:36:00 Test Item Value Reference Range Interpretation Comments UA Spec Grav (test code = UA Spec Grav) 1.037 [facility] AND [id number] 14:36:00 Test Item Value Reference Range Interpretation Comments UA Turbidity (test code = Clear (02/28/16 8:36 UA Turbidity) AM) [facility] AND [id number] 14:36:00 Test Item Value Reference Range Interpretation Comments UA Bili (test code = Negative *NA*(02/28/16 UA Bili) 8:36 AM) [facility] AND [id number] 14:36:00 Test Item Value Reference Range Interpretation Comments UA Blood (test code = Moderate *ABN*(02/28/16 UA Blood) 8:36 AM) [facility] AND [id number] 14:36:00 Test Item Value Reference Range Interpretation Comments UA Nitrite (test code Negative (02/28/16 8:36 = UA Nitrite) AM) [facility] AND [id number] 14:36:00 Test Item Value Reference Range Interpretation Comments UA Glucose (test code = UA Negative mg/dL Glucose) [facility] AND [id number] 14:36:00 Test Item Value Reference Range Interpretation Comments UA Ketones (test code = UA Negative mg/dL Ketones) [facility] AND [id number] 14:36:00 Test Item Value Reference Range Interpretation Comments UA pH (test code = UA pH) 6.0 5.0-8.0 [facility] AND [id number] 14:36:00 Test Item Value Reference Range Interpretation Comments UA Protein (test code = UA Protein) 70 mg/dL [facility]2016-12-04 18:02:00 Test Item Value Reference Range Interpretation Comments Lactic Acid Lvl (test code = Lactic 1.8 0.5-2.2 Acid Lvl) [facility]2016-12-04 14:39:00 Test Item Value Reference Range Interpretation Comments Lactic Acid Lvl (test code = Lactic 2.4 0.5-2.2 Acid Lvl) [facility] [id number] 14:39:00 Test Item Value Reference Range Interpretation Comments Ca Norm WB (test code = Ca Norm WB) 1.19 1.05-1.25 [facility] HospitalATHY[facility] [id number] 14:39:00 Test Item Value Reference Range Interpretation Comments Ca Ion WB (test code = Ca Ion WB) 1.13 1.05-1.25 [facility] ParkwayCloudary [id number] 10:30:00 Test Item Value Reference Range Interpretation Comments ABO/Rh (test code = ABO/Rh) B POS [facility] HospitalBasetex Group [id number] 10:30:00 Test Item Value Reference Range Interpretation Comments Antibody Scrn (test Negative (02/25/16 4:30 code = Antibody Scrn) AM) [facility] [id number] 10:57:00 Test Item Value Reference Range Interpretation Comments CHD Risk (test code = CHD Risk) 2.76 4.00-7.30 [facility] [id number] 10:57:00 Test Item Value Reference Range Interpretation Comments LDL (Calculated) (test code = LDL 37 (Calculated)) [id number] 10:57:00 Test Item Value Reference Range Interpretation Comments VLDL (test code = VLDL) 23 [facility] [id number] 10:57:00 Test Item Value Reference Range Interpretation Comments Trig (test code = Trig) 117 [facility] [id number] 10:57:00 Test Item Value Reference Range Interpretation Comments HDL (test code = HDL) 34 [facility] [id number] 10:57:00 Test Item Value Reference Range Interpretation Comments Chol (test code = Chol) 94 [facility] [id number] 10:57:00 Test Item Value Reference Range Interpretation Comments Hgb A1C (test code = Hgb A1C) 5.9 [facility] [id number] 09:33:00 Test Item Value Reference Range Interpretation Comments PT (test code = PT) 15.5 s 12.0-14.7 [facility]CzlmngmYCGHSEAVWD6423-24-27 09:33:00 Test Item Value Reference Range Interpretation Comments INR (test code = INR) 1.20 0.85-1.17 [facility] H[id number] 09:33:00 Test Item Value Reference Range Interpretation Comments PTT (test code = PTT) 27.0 s 22.9-35.8 [facility] [id number] 11:56:00 Test Item Value Reference Range Interpretation Comments ABO/Rh (test code = ABO/Rh) B POS [facility] [id number] 11:56:00 Test Item Value Reference Range Interpretation Comments Antibody Scrn (test Negative (02/21/16 code = Antibody Scrn) 5:56 AM) [facility] ParkwayBACTERIAL - [id number] 21:30:00 Test Item Value Reference Range Interpretation Comments MRSA by PCR (test Negative (02/08/16 3:30 code = MRSA by PCR) PM) [facility] ParkwayCHEM [id number] 21:30:00 Test Item Value Reference Range Interpretation Comments Vitamin D, 25-OH, Total (test code = 29 30-100 Vitamin D, 25-OH, Total) [facility] H[id number] 21:30:00 Test Item Value Reference Range Interpretation Comments PT (test code = PT) 13.1 s 12.0-14.7 [facility] H[id number] 21:30:00 Test Item Value Reference Range Interpretation Comments PTT (test code = PTT) 29.2 s 22.9-35.8 [facility] Hospit[id number] 21:30:00 Test Item Value Reference Range Interpretation Comments INR (test code = INR) 0.97 0.85-1.17 [facility] [id number] 21:30:00 Test Item Value Reference Range Interpretation Comments HIV 1/2 Ab (test code Negative *NA*(02/08/16 = HIV 1/2 Ab) 3:30 PM) [facility] H[id number] 21:30:00 Test Item Value Reference Range Interpretation Comments Hep C Ab (test code = Negative *NA*(02/08/16 Hep C Ab) 3:30 PM) [facility] HospitalannURINE AND [id number] 21:30:00 Test Item Value Reference Range Interpretation Comments Micro? (test code = Not Indicated Micro?) *NA*(02/08/16 3:30 PM) Justin Linda [id number] 21:30:00 Test Item Value Reference Range Interpretation Comments U Cotinine Lvl (test Negative *NA*(02/08/16 code = U Cotinine Lvl) 3:30 PM) Justin Burrell
[2022-02-01] MEDS ORDERED: NITROGLYCERIN 0.4 MG/TAB SL ONE (20:55)
[2022-02-01 21:07] LABS: Absolute Lymphocytes (CBC) 1.2 K/uL (0.7-4.9); Hematocrit 39.7 % (39.6-49.0); Lymphocytes % 19.8 % (15.3-44.8); MCV 89.8 fL (80-100); MPV 6.2 fL (7.6-11.3); RBC Red Blood Cell Count 4.42 M/uL (4.33-5.43)
[2022-02-01 21:09] LABS: Protime INR 0.88
--- NOTE | 2022-02-01 21:22 | RAD REPORT ---
EXAM DESCRIPTION: RAD - Chest Single View - 02/01/2022 9:10 pm CLINICAL HISTORY: CHEST PAIN COMPARISON: Portable 12/08/2021 TECHNIQUE: AP portable chest image was obtained 02/01/2022 9:10 pm . FINDINGS: Lung volumes are low. Interstitial pattern is similar to comparison. No significant failur e or volume overload. No consolidation. Heart and vasculature are normal. No measurable pleural effus ion and no pneumothorax. No acute bony abnormality seen. No acute aortic findings suspected. IMPRESSION: No acute cardiopulmonary process.
[2022-02-01 21:34] LABS: AST/SGOT 13 U/L (15-37); Albumin 3.5 g/dL (3.4-5.0); Alkaline Phosphatase 90 U/L (45-117); BUN Blood Urea Nitrogen 17 mg/dL (7-18); Bicarbonate 31 mmol/L (21-32); Bilirubin Total 0.2 mg/dL (0.2-1.0); Glomerular Filtration Rate 73 ml/min (=/>90); Glucose Level 126 mg/dL (74-106); Magnesium 1.7 mg/dL (1.8-2.4); NT PRO-BNP 457 pg/mL (<450); Potassium 4.1 mmol/L (3.5-5.1); Protein, Total 6.6 g/dL (6.4-8.2); Sodium Level 138 mmol/L (136-145); Troponin High Sensitivity 18.8 pg/mL (<58.9)
[2022-02-01 21:36] LABS: ALT/SGPT < 10 U/L (12-78); Bilirubin Direct < 0.1 mg/dL (0-0.2)
[2022-02-01] MEDS ORDERED: MAGNESIUM SULFATE 1 gm IVPB 1 GM/100 ML BAG IV ONE (21:55)
[2022-02-01 22:21] LABS: SARS-CoV-2 Antigen Rapid Res Negative (Negative)
--- NOTE | 2022-02-01 22:40 | ER ---
Nurse's Notes [facility] Name: Rajesh Johansen Age: 81 yrs Sex: Male : 1940 Arrival Date: 02/01/2022 Time: 20:26 Bed 25 Private MD: Diagnosis: Chest pain, unspecified Presentation: 02/01 20:38 Chief complaint: Patient states: Pt reports anterior chest wall pressure, SOB and right kb3 arm pain since 1400 today. Reports dry cough x2 weeks. Coronavirus screen: Vaccine status: Patient reports receiving the 2nd dose of the covid vaccine. Client denies travel out of the [place] in the last 14 days. Ebola Screen: Patient negative for fever greater than or equal to 101.5 degrees Fahrenheit, and additional compatible Ebola Virus Disease symptoms Patient denies exposure to infectious person. Patient denies travel to an Ebola-affected area in the 21 days before illness onset. Initial Sepsis Screen: Does the patient meet any 2 criteria? No. Patient's initial sepsis screen is negative. Does the patient have a suspected source of infection? No. Patient's initial sepsis screen is negative. Risk Assessment: Do you want to hurt yourself or someone else? Patient reports no desire to harm self or others. Onset of symptoms was February 01, 2022 at 14:00. 20:38 Method Of Arrival: Wheelchair kb3 20:38 Acuity: SOHAM 2 kb3 Triage Assessment: 20:39 General: Appears in no apparent distress. Behavior is calm, cooperative. Pain: kb3 Complains of pain in chest Pain radiates to right arm Pain currently is 7 out of 10 on a pain scale. Quality of pain is described as pressure, Pain began 1400 today. Cardiovascular: Reports chest pain, shortness of breath. Historical: - Allergies: 20:39 No Known Allergies; kb3 - Home Meds: 21:52 carbidopa-levodopa 25-100 mg Oral TbER 1 tab 3 times per day [Active]; CoQ-10 100 mg eh3 Oral cap twice a day [Active]; cosemine [Active]; Lasix 20 mg Oral tab 1 tab 2 times per day [Active]; levothyroxine 50 mcg cap 1 cap once daily [Active]; metformin 500 mg Oral tab 1 tab 2 times per day [Active]; metoprolol tartrate 25 mg Oral tab 1 tab once daily [Active]; multivitamin Oral [Active]; pantoprazole 20 mg Oral TbEC 1 tab once daily [Active]; pregabalin 75 mg Oral cap 1 cap 2 times per day [Active]; ropinirole 0.5 mg Oral tab 1 tab 3 times per day [Active]; rosagiline 1 mg one time daily for Parkinsons [Active]; tamsulosin 0.4 mg Oral cap 1 cap once daily [Active]; testosterone 2 mg once daily [Active]; Trazodone Oral once daily [Active]; - PMHx: 20:39 COPD; Diverticulitis; Hypertension; Hypothyroidism; Parkinson's disease; Atrial kb3 fibrillation; NIDDM; Cerebrovascular accident; - PSHx: 20:39 Bowel Resection; Shoulder Replacement bilateral; Back sx x3; Watchman Procedure; kb3 - Immunization history:: Adult Immunizations up to date, Client reports receiving the 2nd dose of the Covid vaccine, Last tetanus immunization: > 10 years ago. - Social history:: Smoking status: Patient denies any tobacco usage or history of. Screenin:57 Abuse screen: Denies threats or abuse. Denies injuries from another. Nutritional eh3 screening: No deficits noted. Tuberculosis screening: No symptoms or risk factors identified. Fall Risk None identified. Assessment: 20:57 General: Appears in no apparent distress. uncomfortable, Behavior is calm, cooperative, eh3 appropriate for age. Pain: Complains of pain in right clavicle, anterior aspect of right upper chest and right breast Pain does not radiate. Pain currently is 6 out of 10 on a pain scale. Pain: Quality of pain is described as sharp, Pain began 2:30pm today Is continuous. Neuro: Level of Consciousness is awake, alert, obeys commands, Oriented to person, place, time, situation. Cardiovascular: Capillary refill < 3 seconds Patient's skin is warm and dry. Respiratory: Airway is patent Respiratory effort is even, unlabored, Respiratory pattern is regular, symmetrical. GI: No signs and/or symptoms were reported involving the gastrointestinal system. Abdomen is round non-distended. : No signs and/or symptoms were reported regarding the genitourinary system. EENT: No signs and/or symptoms were reported regarding the EENT system. Derm: No signs and/or symptoms reported regarding the dermatologic system. Musculoskeletal: No signs and/or symptoms reported regarding the musculoskeletal system. Circulation, motion, and sensation intact. Range of motion: intact in all extremities. 21:01 Reassessment: Pt refused 2nd dose of nitroglycerin, stated, "My pain is almost gone and eh3 I don't want to take any more of that medicine." Advised that another dose of nitro could lower his pain even more. Pt refused 2nd dose. Ion Bone NP notified. 21:58 Reassessment: Patient and/or family updated on plan of care and expected duration. Pain eh3 level reassessed. Patient is alert, oriented x 3, equal unlabored respirations, skin warm/dry/pink. Pain increased to 4/10 and pt asked for another dose of nitroglycerin. 23:00 Reassessment: Patient and/or family updated on plan of care and expected duration. Pain eh3 level reassessed. Patient is alert, oriented x 3, equal unlabored respirations, skin warm/dry/pink. 23:15 Reassessment: Patient and/or family updated on plan of care and expected duration. Pain ha1 level reassessed. Patient is alert, oriented x 3, equal unlabored respirations, skin warm/dry/pink. Patient denies pain at this time. Patient states feeling better. Vital Signs: 20:38 BP 148 / 86; Pulse 91; Resp 20; Pulse Ox 95% ; Weight 86.18 kg; Height 5 ft. 8 in. kb3 (172.72 cm); Pain 7/10; 20:57 BP 138 / 86; Pulse 81; Resp 22; Pulse Ox 93% on R/A; eh3 21:15 BP 126 / 72; Pulse 73; Resp 21; Pulse Ox 97% on 2 lpm NC; eh3 21:30 BP 126 / 79; Pulse 67; Resp 20; Pulse Ox 97% on 2 lpm NC; eh3 21:45 BP 121 / 74; Pulse 70; Resp 20; Pulse Ox 97% on 2 lpm NC; eh3 22:00 BP 107 / 73; Pulse 72; Resp 22; Pulse Ox 96% on 2 lpm NC; eh3 23:00 BP 131 / 78; Pulse 70; Resp 21; Pulse Ox 97% on 2 lpm NC; eh3 23:56 BP 112 / 70; Pulse 73; Resp 17 S; Pulse Ox 95% on 2 lpm NC; ha1 20:38 Body Mass Index 28.89 (86.18 kg, 172.72 cm) kb3 Vitals: 20:57 Cardiac Rhythm Assessment Sinus rhythm. 3 ED Course: 20:26 Patient arrived in ED. ja2 20:30 Mason Bone NP is PHCP. pm1 20:30 Valencia Kat MD is Attending Physician. pm1 20:38 Haylie Camacho, RN is Primary Nurse. kb3 20:39 Triage completed. kb3 20:39 Arm band placed on right wrist. Patient placed in an exam room, on a stretcher. kb3 20:45 EKG done, by ED staff, reviewed by Mason Bone NP. tw5 20:53 Joyce Milligan, RN is Primary Nurse. eh3 20:57 Patient has correct armband on for positive identification. Bed in low position. Call 3 light in reach. Side rails up X2. Adult w/ patient. Client placed on continuous cardiac and pulse oximetry monitoring. NIBP monitoring applied. Door closed. Noise minimized. 20:57 Oxygen administration via nasal cannula \\T\\ 2L/min. eh3 20:59 Inserted saline lock: 20 gauge in left antecubital area, using aseptic technique. Blood zm collected. 20:59 Basic Metabolic Panel Sent. zm 20:59 CBC with Diff Sent. zm 20:59 LFT's Sent. zm 20:59 Magnesium Sent. zm 20:59 NT PRO-BNP Sent. zm 20:59 PT-INR Sent. zm 20:59 Troponin HS Sent. zm 21:11 XRAY Chest (1 view) In Process Unspecified. EDMS 22:39 Javier Cordon MD is Hospitalizing Provider. pm1 23:21 Report given to Azalea Johnson RN. Remaining doses of nitroglycerin handed off to Azalea. 3 02/02 01:26 Primary Nurse role handed off by Joyce Milligan RN wm 01:46 No provider procedures requiring assistance completed. Patient admitted, IV remains in ha1 place. Administered Medications: 02/01 20:56 Drug: Nitroglycerin 0.4 mg Route: Sublingual; 3 21:01 Follow up: Response: Marked relief of symptoms; Pain is decreased eh3 21:58 Drug: Nitroglycerin 0.4 mg Route: Sublingual; 3 22:03 Follow up: Response: Marked relief of symptoms eh3 22:02 Drug: Magnesium Sulfate 1 grams Route: IVPB; Infused Over: 1 hrs; Site: left eh3 antecubital; 23:02 Follow up: Response: No adverse reaction; IV Status: Completed infusion; IV Intake: eh3 100ml Medication: 02/02 01:47 VIS not applicable for this client. ha1 Intake: 02/01 23:02 IV: 100ml; Total: 100ml. eh3 Outcome: 22:39 Decision to Hospitalize by Provider. pm1 02/02 01:46 Admitted to Med/surg accompanied by nurse, room 205, with oxygen, Report called to Francine Coelho RN Condition: stable Discharge instructions given to patient, family, Instructed on the need for admit, Demonstrated understanding of instructions. 01:47 Patient left the ED. [facility] Signatures: Dispatcher [employer] EDMS Mason Bone NP PROCESS IMPROVEMENT CONSULTANT pm1 Olivia Hawk Jessica ja2 Wood, Tiffany tw5 Joyce Milligan RN RN 3 Chelsea Aiken Heidy, RN RN 1 Haylie Camacho RN RN kb3 Corrections: (The following items were deleted from the chart) 02/01 20:41 20:39 PMHx: watchman procedure; kb3 kb3 21:49 21:14 Response: Marked relief of symptoms; Pain is decreased eh3 eh3 21:49 21:00 Reassessment: Pt refused 2nd dose of nitroglycerin, stated, "My pain is almost eh3 gone and I don't want to take any more of that medicine." Advised that another dose of nitro could lower his pain even more. Pt refused 2nd dose. Ion Bone NP notified eh3
--- NOTE | 2022-02-01 22:40 | EDPHYS ---
Physician Documentation [facility] Name: Rajesh Johansen Age: 81 yrs Sex: Male : 1940 Arrival Date: 02/01/2022 Time: 20:26 Bed 25 Private MD: ED Physician Valencia Kat HPI: 02/01 20:37 This 81 yrs old Male presents to ER via Wheelchair with complaints of Chest Pain, pm1 Shortness Of Breath, Arm Pain. 20:37 The patient or guardian reports chest pain that is located primarily in the anterior pm1 aspect of right upper chest and right breast. Onset: today, at 14:00. The pain radiates to the left arm. Associated signs and symptoms: Pertinent positives: shortness of breath, Pertinent negatives: nausea, vomiting. The chest pain is described as aching. Duration: The patient or guardian reports a single episode, that is still ongoing. Modifying factors: the symptoms are aggravated by cough, exertion. Severity of pain: in the emergency department the pain is a 7 / 10. The patient has not experienced similar symptoms in the past. The patient has not recently seen a physician, the patient's primary care provider is Dr. Cordon. Historical: - Allergies: 20:39 No Known Allergies; kb3 - Home Meds: 21:52 carbidopa-levodopa 25-100 mg Oral TbER 1 tab 3 times per day [Active]; CoQ-10 100 mg eh3 Oral cap twice a day [Active]; cosemine [Active]; Lasix 20 mg Oral tab 1 tab 2 times per day [Active]; levothyroxine 50 mcg cap 1 cap once daily [Active]; metformin 500 mg Oral tab 1 tab 2 times per day [Active]; metoprolol tartrate 25 mg Oral tab 1 tab once daily [Active]; multivitamin Oral [Active]; pantoprazole 20 mg Oral TbEC 1 tab once daily [Active]; pregabalin 75 mg Oral cap 1 cap 2 times per day [Active]; ropinirole 0.5 mg Oral tab 1 tab 3 times per day [Active]; rosagiline 1 mg one time daily for Parkinsons [Active]; tamsulosin 0.4 mg Oral cap 1 cap once daily [Active]; testosterone 2 mg once daily [Active]; Trazodone Oral once daily [Active]; - PMHx: 20:39 COPD; Diverticulitis; Hypertension; Hypothyroidism; Parkinson's disease; Atrial kb3 fibrillation; NIDDM; Cerebrovascular accident; - PSHx: 20:39 Bowel Resection; Shoulder Replacement bilateral; Back sx x3; Watchman Procedure; kb3 - Immunization history:: Adult Immunizations up to date, Client reports receiving the 2nd dose of the Covid vaccine, Last tetanus immunization: > 10 years ago. - Social history:: Smoking status: Patient denies any tobacco usage or history of. ROS: 20:37 Constitutional: Negative for fever, chills, and weight loss. pm1 20:37 Abdomen/GI: Negative for abdominal pain, nausea, vomiting, diarrhea, and constipation, Back: Negative for injury and pain, MS/Extremity: Negative for injury and deformity, Skin: Negative for injury, rash, and discoloration, Neuro: Negative for headache, weakness, numbness, tingling, and seizure. 20:37 Cardiovascular: Positive for chest pain, Negative for edema, palpitations. 20:37 Respiratory: Positive for shortness of breath, Negative for wheezing. 20:37 All other systems are negative. Exam: 20:37 Constitutional: This is a well developed, well nourished patient who is awake, alert, pm1 and in no acute distress. Head/Face: Normocephalic, atraumatic. 20:37 Skin: Warm, dry with normal turgor. Normal color with no rashes, no lesions, and no evidence of cellulitis. MS/ Extremity: Pulses equal, no cyanosis. Neurovascular intact. Full, normal range of motion. 20:37 Eyes: Exam is negative for acute changes, Periorbital structures: no acute changes, Extraocular movements: no acute changes, Conjunctiva: no acute changes. 20:37 ENT: Exam is negative for acute changes, Mouth: no acute changes, Lips: normal, moist, Oral mucosa: normal, pink and intact, moist. 20:37 Cardiovascular: Exam negative for acute changes, Rate: normal, Rhythm: regular, Pulses: no pulse deficits are appreciated, Heart sounds: normal, normal S1and S2. 20:37 Respiratory: Exam negative for acute changes, respiratory distress, shortness of breath, Breath sounds: are clear throughout. 20:37 Abdomen/GI: Exam negative for acute changes, Palpation: abdomen is soft and non-tender, in all quadrants. 20:37 Neuro: Exam negative for acute changes, Orientation: is normal, Mentation: is normal, Motor: is normal, moves all fours. Vital Signs: 20:38 BP 148 / 86; Pulse 91; Resp 20; Pulse Ox 95% ; Weight 86.18 kg; Height 5 ft. 8 in. kb3 (172.72 cm); Pain 7/10; 20:57 BP 138 / 86; Pulse 81; Resp 22; Pulse Ox 93% on R/A; eh3 21:15 BP 126 / 72; Pulse 73; Resp 21; Pulse Ox 97% on 2 lpm NC; eh3 21:30 BP 126 / 79; Pulse 67; Resp 20; Pulse Ox 97% on 2 lpm NC; eh3 21:45 BP 121 / 74; Pulse 70; Resp 20; Pulse Ox 97% on 2 lpm NC; eh3 22:00 BP 107 / 73; Pulse 72; Resp 22; Pulse Ox 96% on 2 lpm NC; eh3 23:00 BP 131 / 78; Pulse 70; Resp 21; Pulse Ox 97% on 2 lpm NC; eh3 23:56 BP 112 / 70; Pulse 73; Resp 17 S; Pulse Ox 95% on 2 lpm NC; ha1 20:38 Body Mass Index 28.89 (86.18 kg, 172.72 cm) kb3 MDM: 20:37 Patient medically screened. pm1 20:49 Data reviewed: vital signs. pm1 21:32 ED course: pain 3/10 from 7/10 after nitro x 1. pm1 22:38 ED course: chest pain 0/10 after nitro x2. pm1 22:38 Counseling: I had a detailed discussion with the patient and/or guardian regarding: the pm1 historical points, exam findings, and any diagnostic results supporting the discharge/admit diagnosis, lab results, radiology results, the need for further work-up and treatment in the hospital. 22:38 Physician consultation: Javier Cordon MD no answer, unable to leave message - mailbox pm1 full. 22:58 Physician consultation: Javier Cordon MD No answer, unable to leave message - mailbox pm1 full. 23:19 Physician consultation: Javier Cordon MD No answer, unable to leave message - mailbox pm1 full. 02/01 20:37 Order name: Basic Metabolic Panel; Complete Time: 21:45 pm1 02/01 20:37 Order name: CBC with Diff; Complete Time: 21:17 pm1 02/01 20:37 Order name: LFT's; Complete Time: 21:45 pm1 02/01 20:37 Order name: Magnesium; Complete Time: 21:45 pm1 02/01 20:37 Order name: NT PRO-BNP; Complete Time: 21:45 pm1 02/01 20:37 Order name: PT-INR; Complete Time: 21:17 pm1 02/01 20:37 Order name: Troponin HS; Complete Time: 21:45 pm1 02/01 20:37 Order name: XRAY Chest (1 view); Complete Time: 21:28 pm1 02/01 20:37 Order name: EKG; Complete Time: 20:39 pm1 02/01 20:37 Order name: Cardiac monitoring; Complete Time: 20:45 pm1 02/01 20:37 Order name: EKG - Nurse/Tech; Complete Time: 20:45 pm1 02/01 21:32 Order name: SARS RAPID; Complete Time: 22:22 pm1 02/01 20:37 Order name: IV Saline Lock; Complete Time: 20:59 pm1 02/01 20:37 Order name: Labs collected and sent; Complete Time: 20:59 pm1 02/01 20:37 Order name: O2 Per Protocol; Complete Time: 21:01 pm1 02/01 20:37 Order name: O2 Sat Monitoring; Complete Time: 21:01 pm1 EC:45 Rate is 71 beats/min. Rhythm is regular, Sinus Rhythm with PACs, Incomplete right pm1 bundle branch block, left anterior fascicular block, minimal voltage criteria for LVH. QT interval is normal. No Q waves. T waves are Normal. No ST changes noted. Clinical impression: Abnormal ECG. Administered Medications: 20:56 Drug: Nitroglycerin 0.4 mg Route: Sublingual; 3 21:01 Follow up: Response: Marked relief of symptoms; Pain is decreased 3 21:58 Drug: Nitroglycerin 0.4 mg Route: Sublingual; 3 22:03 Follow up: Response: Marked relief of symptoms 3 22:02 Drug: Magnesium Sulfate 1 grams Route: IVPB; Infused Over: 1 hrs; Site: left eh3 antecubital; 23:02 Follow up: Response: No adverse reaction; IV Status: Completed infusion; IV Intake: eh3 100ml Disposition Summary: 02/01/22 22:39 Hospitalization Ordered Hospitalization Status: Observation pm1 Provider: Javier Cordon pm1 [facility] pm1 Condition: Stable pm1 Problem: new pm1 Symptoms: have improved pm1 Bed/Room Type: Standard pm1 Room Assignment: 205(02/02/22 00:16) [facility] Diagnosis - Chest pain, unspecified pm1 Forms: - Medication Reconciliation Form pm1 - SBAR form pm1 Signatures: Dispatcher [employer] EDMason Nunez NP STAFF CONSULTANT pm1 Jennifer Almanzar RN RN eb1 Joyce Milligan RN RN eh3 Haylie Camacho RN RN kb3 Corrections: (The following items were deleted from the chart) 20:41 20:39 PMHx: watchman procedure; kb3 kb3 02/02 00:16 02/01 22:39 pm1 eb1
[2022-02-02] MEDS ORDERED: D50W 25 GM/50 ML SYRINGE IV PRN (02:07)
[2022-02-02] MEDS ORDERED: GLUCAGON 1 MG/VIAL IM PRN (02:07)
[2022-02-02 02:09] VITALS: BMI 28.8
[2022-02-02] MEDS ORDERED: D10W 125 ML IV PRN (02:13)
[2022-02-02] MEDS: INSULIN -REGULAR HUMAN 50 UNIT/0.5 ML ML SQ SCH ×4 (07:30→21:00)
[2022-02-02] MEDS: ASPIRIN EC 81 MG TAB PO SCH (09:03)
--- NOTE | 2022-02-02 12:43 | P.SSS ---
Patient History Date of Service: 02/02/22 Reason for admission: DYSPNEA History of Present Illness: GENARO HAS MANY CARDIAC RISK FACTORS INCLUDING DM. OBESITY, AGE, COPD AND HAS WORSE FATIGUE AND DYSPNEA. HE GETS SOME TIGHTNESS IN CHEST WHEN WALKING. HE IS HERE FOR CARDIAC WORK UP FOR UNSTABLE ANGINA. Allergies No Known Allergies Allergy (Verified 07/05/21 10:13) Home medications list reviewed: Yes Home Medications: Tamsulosin [Flomax*] 0.4 mg PO BID 08/15/16 Metoprolol Succinate [Toprol Xl*] 25 mg PO DAILY 09/06/17 Multivitamin [Multivitamins] 1 each PO DAILY 09/06/17 Rasagiline Mesylate 1 mg PO DAILY 09/06/17 Ropinirole HCl [Requip*] 0.5 mg PO TID 09/06/17 Carbidopa/Levodopa [Carbidopa-Levodopa 25-100 Tab] 1 each PO TID 11/07/19 Furosemide [Lasix*] 20 mg PO BID 11/07/19 Levothyroxine [Synthroid*] 50 mcg PO [id number] 11/07/19 Metformin HCl [Glucophage*] 1,000 mg PO BID 11/07/19 Pantoprazole [Protonix Tab*] 40 mg PO DAILY 11/07/19 Pregabalin 75 mg PO BID 11/07/19 Atorvastatin Calcium [Lipitor] 40 mg PO BEDTIME 03/01/20 Aspirin [Aspirin EC 81 MG] 81 mg PO DAILY 03/07/21 Glucosamine/Chondroiti/[id number] [Cosamin Asu Capsule] 1 each PO DAILY 07/05/21 Loratadine [Allergy Relief] 10 mg PO DAILY 07/05/21 Trazodone HCl 100 mg PO BEDTIME 07/05/21 Ubidecarenone [Co Q-10] 200 mg PO DAILY 07/05/21 - Past Medical/Surgical History Has patient received pneumonia vaccine in the past: Yes Diabetic: Yes -: sepsis of right shoulder, bilateral replacements -: diverticulitis/partial resection of colon (Dr. Anthony) -: Parkinsons -: TIA/CVA with continued right sided effects, dizziness -: Double vision s/p cataract surgery -: Back surgery x 3 (most recent 12/04/21) Dr. Morelos -: back sx x3 -: left shoulder rotator cuff x2 -: right shoulder rotator cuff -: right shoulder replacement -: bowl resection -: left greater toe, artificial toe joint -: left thumb fusion -: TIA feb 2016 - Family History Father -: Lung disease, Diabetes, Stroke Notes: 1979 Mother -: Lung disease Notes: 2005 - Social History Smoking Status: Former smoker Alcohol use: No CD- Drugs: No Caffeine use: Yes Place of Residence: Home Review of Systems 10-point ROS is otherwise unremarkable General: Weakness, Malaise Respiratory: Shortness of Breath Physical Examination - Vital Signs Temperature: 97.4 F Blood Pressure: 142/76 Pulse: 65 Respirations: 16 Pulse Ox (%): 95 - Physical Exam General: Oriented x3, Mild distress, Obese HEENT: Atraumatic, PERRLA, Mucous membr. moist/pink, EOMI, Sclerae nonicteric Neck: Supple, 2+ carotid pulse no bruit, No LAD, Without JVD or thyroid ab normality Respiratory: Clear to auscultation bilaterally, Normal air movement Cardiovascular: Regular rate/rhythm, Normal S1 S2 Gastrointestinal: Normal bowel sounds, No tenderness Musculoskeletal: No tenderness Integumentary: No rashes Neurological: Normal gait, Normal speech, Normal strength at 5/5 x4 extr, Normal tone, Normal affect Lymphatics: No axilla or inguinal lymphadenopathy - Studies Laboratory Data (last 24 hrs) 02/01/22 20:56: PT 9.7, INR 0.88 02/01/22 20:56: WBC 6.10, Hgb 13.2 L, Hct 39.7, Plt Count 215 02/01/22 20:56: Sodium 138, Potassium 4.1, BUN 17, Creatinine 1.04, Glucose 126 H, Magnesium 1.7 L, Total Bilirubin 0.2, AST 13 L, ALT < 10 L, Alkaline Phosphatase 90 - Diagnosis (Problem(s)) (1) Unstable angina Current Visit: Yes Status: Acute Plan: CATH TODAY. PLAN AFTER DEPENDS ON CATH AND STENT OR NOT. STABLE FOR NOW. (2) Dyspnea Current Visit: Yes Status: Chronic Plan: COPD WITH OR WITHOUT CAD. Qualifiers: Dyspnea type: dyspnea on exertion Qualified Code(s): R06.09 - Other forms of dyspnea - Disposition Disposition: ROUTINE DISCHARGE
--- NOTE | 2022-02-02 14:53 | EKG ---
Test Date: 2022-02-01 Test Time: 20:42:29 [place]: MEASUREMENT RESULTS: Intervals: Rate: 71 LA: 184 QRSD: 112 QT: 414 QTc: 449 [place]: P: LA: 184 QRS: -56 T: 16 INTERPRETIVE STATEMENTS: Sinus rhythm with premature atrial complexes Incomplete right bundle branch block Left anterior fascicular block Minimal voltage criteria for LVH, may be normal variant Abnormal ECG Compared to ECG 12/08/2021 12:36:40 Atrial premature complex(es) now present Incomplete right bundle-branch block now present Left anterior fascicular block now present Left ventricular hypertrophy now present Left-axis deviation no longer present Electronically Signed On 02-02-22 14:52:41 BINDING PRINTER by Viraj Guzman
[2022-02-03 02:20] LABS: Absolute Lymphocytes (CBC) 1.2 K/uL (0.7-4.9); Hematocrit 37.7 % (39.6-49.0); Lymphocytes % 20.4 % (15.3-44.8); MCV 89.7 fL (80-100); MPV 6.2 fL (7.6-11.3)
[2022-02-03] MEDS: ASPIRIN EC 81 MG TAB PO SCH (06:00)
[2022-02-03] MEDS: INSULIN -REGULAR HUMAN 50 UNIT/0.5 ML ML SQ SCH ×2 (07:30→11:30)
[2022-02-03] MEDS ORDERED: MIDAZOLAM HCL 2 MG/2 ML INJ ONE (12:52)
[2022-02-03] MEDS ORDERED: FENTANYL CITR 100 MCG/2 ML ONE (12:52)
[2022-02-03] MEDS ORDERED: NITROGLYCERIN/D5W 25 MG/250 ML BTL IV ONE (12:53)
[2022-02-03] MEDS ORDERED: CLOPIDOGREL 75 MG TABLET ONE (12:53)
[2022-02-03] MEDS ORDERED: ATROPINE SULF 1 MG/10 ML SYR IV ONE (12:53)
[2022-02-03] MEDS ORDERED: NITROGLYCERIN 100 MCG/ML SYR (for cath lab use only) IV ONE (12:53)
[2022-02-03] MEDS ORDERED: TICAGRELOR 90 MG TABLET PO ONE (12:53)
[2022-02-03] MEDS ORDERED: HEPA 1000U/500MLS 3,000 UNIT/1,500 ML BAG IV ONE (12:54)
[2022-02-03] MEDS ORDERED: LIDOCAINE 1% 20 ML MDV ONE (12:54)
[2022-02-03] MEDS ORDERED: NA CHLORIDE 0.9% 500 ML ONE (12:56)
[2022-02-03] MEDS ORDERED: HEPARIN 10,000 UNIT/10 ML VIAL IV ONE (13:17)
[2022-02-03 13:18] VITALS: TEMP 97.7
[2022-02-03 16:53] VITALS: BP 145/92; O2SAT 97
--- NOTE | 2022-02-03 20:48 | PN ---
Date of Progress Note: 02/03/2022 Subjective: Seen by bedside, doing well. Status post coronary angiogram in his coronary arteries. He has moderate disease of the proximal LAD, but no significant disease that warrants PCI. Denies lindsey ving any chest pain at the present time and he feels well. Review of Systems: No chest pain, shortness of breath, orthopnea, or cough. No nausea, vomiting, or diarrhea. No abdom inal pain. No dysuria, polyuria, or urinary urgency. All other systems reviewed and they are negati ve. Physical Examination: Vital Signs: Reviewed. Head And Neck: Pupils are equal and reactive to light. Intact eye movements. No JVD. No cervical lymphadenopathy. Neck is supple. Thyroid is not enlarged. Lungs: Clear to auscultation bilaterally. No rhonchi, wheezing, or crackles. No accessory muscle u se. Heart: Regular rate and rhythm. No extra sounds. Abdomen: Soft, nontender. Bowel sounds positive. No organomegaly. No masses or hernia. No rigidi ty or rebound. Extremities: No edema, clubbing, or cyanosis. Intact pulses. Skin: No rash. Neurologic: Alert, awake, oriented x3. No acute focal deficits appreciated. Lymph Nodes: No cervical or axillary adenopathy. Investigations: Labs reviewed. Assessment And Recommendation: 1.Chest pain. Had abnormal stress test, status post coronary angiogram and no significant disease. He has [id number] proximal left anterior descending artery stenosis, which will be managed med ically. Recommend high-dose statin, Lipitor 40 mg at bedtime, baby aspirin 81 mg daily and blood pre ssure control. 2.Hypertension. Blood pressure is elevated. Needs better blood pressure control for systolic less than 140. From Cardiology standpoint, patient can be released and I will follow him up on an outpatient basis. Case was discussed with Dr. Cordon. SR/MODL Voice ID: [id number] Report ID: [id number]
--- NOTE | 2022-02-04 00:36 | OP ---
Date of Procedure: 02/03/2022 Surgeon: KELTON LOO Procedures Performed: 1.Selective coronary angiogram. 2.Left heart catheterization. Indication: Unstable angina. Access: Right femoral artery 6-Australian closed with 6-Australian Angio-Seal. Complications: None. Estimated Blood Loss: Bleeding less than 10 mL. Anesthesia: Total sedation time was 25 minutes. Description Of Procedure: After risks, benefits, and alternatives were explained, the patient agreed to the procedure and signed informed consent. Patient was brought into the cardiac catheterization laboratory, prepped and draped in usual sterile fashion and then I accessed the right femoral artery using micropuncture kit, fluoroscopy, and ultrasound guidance and placed a 6-Australian [place] sheath. I took a 6-Australian JL4 catheter into aortic root, engaged left main, took standard views and then exc hanged for 6-Australian JR4 catheter, engaged the RCA, took standard views and the JR4 catheter was pushe d over the wire into the LV, measured the LVEDP and pulling back did not record any gradient. I then removed the catheter and sheath and placed a 6-Australian Angio-Seal for closure with good hemostasis. Findings: 1.Left main: Large and normal. 2.LAD: Large vessel proximal 40% stenosis, focal right before the diagonal takeoff and then becomes normal. Normal diagonal branches. 3.Left circumflex is nondominant and normal. 4.RCA: Large and dominant and normal. 5.Normal LVEDP between 5 and 10 mmHg. Conclusion: 1.Moderate nonobstructive coronary artery disease involving proximal left anterior descending artery . 2.Normal left ventricular end-diastolic pressure. Plan: Medical management. /PRATIBHA Voice ID: [id number] Report ID: [id number]
--- NOTE | 2022-02-04 23:09 | CON ---
Date of Consultation: 02/02/[address] Cordon with unstable angina on 02/01/2022, I saw the patient on 02/02/2022. History Of Present Illness: Mr. Johansen is 81, has had a history of atrial fibrillation Watchman procedure, COPD, dyslipidemia, parkinsonism, diastolic congestive heart failure, hypothyroidism, rodney betes, hypertension, gastroesophageal reflux disease, and neuropathy. Came in with unstable angina w ith a plan to have a heart catheterization the next day. His symptoms include chest tightness radiat ing to the back and shoulders with some nausea and diaphoresis with exertion. Past Medical History: As stated above. Allergies: NONE. Review of Systems: Negative. Social History: Negative. Family History: Negative. Medications: Include aspirin, Lipitor, Sinemet, Lasix, Synthroid, metformin, metoprolol, Lyrica, and Protonix. Physical Examination: Vital Signs: Stable, afebrile. HEENT: Negative. Neck: Supple with no bruit. Chest: Clear. Cardiac: Revealed regular rhythm and rate. No murmurs, gallops, or rubs. Abdomen: Benign. Extremities: Revealed no clubbing, cyanosis, or edema. Diagnostic Data: Showed a BNP of 457. Chest x-ray is negative. EKG is nonspecific. Troponin is ne gative. Impression And Plan: 1.Unstable angina. 2.Chronic obstructive pulmonary disease. 3.Atrial fibrillation, status post Watchman. 4.Dyslipidemia. 5.Parkinsonism. 6.Diastolic congestive heart failure. 7.Hypothyroidism. 8.Diabetes. 9.Hypertension. 10.Neuropathy. 11.Gastroesophageal reflux disease. We will continue present regimen. Plan heart catheterization i n the next 24 hours. The patient understands the risk and benefits of the procedure and he agrees to proceed. RADHA/PRATIBHA Voice ID: [id number] Report ID: [id number]
== END 2022-02-03 16:30 | disposition home health service (06) ==
LOC: ER 20:25 → ERHOLD 23:59 → 2ND 02-02 00:53
PROVIDERS: ADMIT Internal Medicine; ATTEND Internal Medicine
DX: I25.110 Atherosclerotic heart disease of native coronary artery with unstable angina pectoris (principal); I48.91 Unspecified atrial fibrillation; I11.0 Hypertensive heart disease with heart failure; I50.30 Unspecified diastolic (congestive) heart failure; E78.5 Hyperlipidemia, unspecified; J44.9 Chronic obstructive pulmonary disease, unspecified; E11.40 Type 2 diabetes mellitus with diabetic neuropathy, unspecified; G20 Parkinson's disease; E03.9 Hypothyroidism, unspecified; K21.9 Gastro-esophageal reflux disease without esophagitis; E66.9 Obesity, unspecified; Z68.28 Body mass index [BMI] 28.0-28.9, adult; Z86.73 Personal history of transient ischemic attack (TIA), and cerebral infarction without residual deficits; Z87.891 Personal history of nicotine dependence; Z79.82 Long term (current) use of aspirin; Z79.84 Long term (current) use of oral hypoglycemic drugs; Z79.899 Other long term (current) drug therapy; Z90.49 Acquired absence of other specified parts of digestive tract; Z82.49 Family history of ischemic heart disease and other diseases of the circulatory system; Z83.3 Family history of diabetes mellitus; Z82.3 Family history of stroke
CPT/HCPCS: 96365; 93005; 85025 ×2; 80048 ×2; 36415 ×2; 83735; 85610; 82947 ×3; 80076; 84484 ×3; 83880; 71045; 93458; 99285; 87811; C1893; Q9966; C1760; G0269; J2250; J3010; J3475; G0378 ×4; J7040; J1644; J0461

== ENCOUNTER 2022-03-02 07:47 | Day surgery (SDC) | payer OTHER ==
[2022-03-02] MEDS ORDERED: Ringers Lactate 1,000 ML IV ONE (08:10)
[2022-03-02] MEDS ORDERED: CEFAZOLIN SODIUM 1 GM/VIAL ONE (08:10)
[2022-03-02] MEDS ORDERED: FENTANYL CITR 100 MCG/2 ML ONE (08:51)
[2022-03-02] MEDS ORDERED: propofoL 200 MG/20 ML VIAL IV ONE (08:51)
[2022-03-02] MEDS ORDERED: MIDAZOLAM HCL 2 MG/2 ML INJ ONE (08:52)
[2022-03-02] MEDS ORDERED: LIDOCAINE 2% MPF 5 ML VIAL ONE (08:52)
[2022-03-02] MEDS ORDERED: ONDANSETRON 4 MG/2 ML VIAL ONE (08:55)
[2022-03-02] MEDS ORDERED: dexAMETHasone 4 MG/ML VIAL ONE (09:19)
[2022-03-02] MEDS: BUPIVACAINE 0.25% PF 10 ML VIAL ONE ×2 (09:26→09:33)
[2022-03-02] MEDS ORDERED: KETOROLAC 30 MG/ML INJ ONE (09:37)
--- NOTE | 2022-03-02 09:54 | P.BOP ---
Preoperative diagnosis: right ring finger trigger digit Postoperative diagnosis: same Primary procedure: right ring finger A1 shelby release Line Helper: NONE,NONE Estimated blood loss: 2 cc Specimen: none Findings: see dictation Anesthesia: General Complications: None Implants: none Fluids & blood products: per anesthesia record; TT: 11 mins @ 250 mmHg Transferred to: Recovery Room Condition: Good
[2022-03-02 11:09] VITALS: TEMP 97.6
[2022-03-02 11:11] VITALS: BP 106/52; O2SAT 94
== END 2022-03-02 10:59 | disposition home or self-care (01) ==
LOC: OR 07:47
PROVIDERS: ATTEND Orthopaedic Surgery Sports Medicine
PROC: 0LN70ZZ Release Right Hand Tendon, Open Approach (ICD-10-PCS; principal; 2022-03-02 09:00)
DX: M65.341 Trigger finger, right ring finger (principal); E11.9 Type 2 diabetes mellitus without complications; I10 Essential (primary) hypertension; Z86.73 Personal history of transient ischemic attack (TIA), and cerebral infarction without residual deficits
CPT/HCPCS: 36415; 82947 ×2; 85730; 26055; J2704; J1100; J2001; J3010; J7120; J2405; J0690; J2250